=== PATIENT | male | born 1980 | race Caucasian/White ===

== ENCOUNTER → 2017-06-03 14:52 | Outpatient (CLI) | payer OTHER, SELFPAY ==
[2017-06-03 16:12] LABS: CRP, High Sensitivity Cardiac 7.98 mg/L; Potassium 3.4 mmol/L (3.5-5.1)
[2017-06-03 16:19] LABS: Osmolality, Urine 498 mOsm/KG
[2017-06-03 16:43] LABS: Osmolality, Serum 292 mOsm/KG (275-295)
== END ==
PROVIDERS: Family Provider Family Medicine; PCP Family Medicine; Visit Provider Internal Medicine Nephrology
DX: E87.6 Hypokalemia (principal); K85.90 Acute pancreatitis without necrosis or infection, unspecified
CPT/HCPCS: 36415; 83930; 83935; 84132; 84133; 86141

== ENCOUNTER → 2017-06-20 15:36 | Outpatient (CLI) | payer OTHER, SELFPAY ==
[2017-06-20 18:18] LABS: Anion Gap 10 (5-15); BUN 21 mg/dL (7-18); BUN/Creat Ratio 19.4 RATIO (10-20); Chloride 103 mmol/L (98-107); Creatinine, Serum 1.08 mg/dL (0.70-1.30); EST Glomerular Filtration Rate 81 mL/min (>60); Est Glom Filt Rate - Afr Amer 98 mL/min (>60); Glucose 109 mg/dL (74-106); Potassium 3.5 mmol/L (3.5-5.1); Sodium Level 139 mmol/L (136-145)
== END ==
PROVIDERS: Family Provider Family Medicine; PCP Family Medicine; Visit Provider Internal Medicine Nephrology
DX: E87.6 Hypokalemia (principal)
CPT/HCPCS: 36415; 80048

== ENCOUNTER → 2017-07-18 16:34 | Outpatient (CLI) | payer OTHER, SELFPAY ==
[2017-07-18 17:52] LABS: Anion Gap 9 (5-15); BUN 18 mg/dL (7-18); BUN/Creat Ratio 15.7 RATIO (10-20); Calcium,Total 9.1 mg/dL (8.5-10.1); Chloride 101 mmol/L (98-107); Creatinine, Serum 1.15 mg/dL (0.70-1.30); EST Glomerular Filtration Rate 75 mL/min (>60); Est Glom Filt Rate - Afr Amer 91 mL/min (>60); Glucose 102 mg/dL (74-106); Potassium 4.1 mmol/L (3.5-5.1); Sodium Level 138 mmol/L (136-145)
== END ==
PROVIDERS: Family Provider Family Medicine; PCP Family Medicine; Visit Provider Family Medicine
DX: I10 Essential (primary) hypertension (principal)
CPT/HCPCS: 36415; 80048

== ENCOUNTER → 2018-01-21 16:44 | Outpatient (CLI) | payer OTHER, SELFPAY ==
[2018-01-21 18:31] LABS: Anion Gap 10 (5-15); BUN 23 mg/dL (7-18); BUN/Creat Ratio 17.7 RATIO (10-20); CPK Total, Creatine Kinase 77 U/L (39-308); Calcium,Total 8.8 mg/dL (8.5-10.1); Chloride 104 mmol/L (98-107); EST Glomerular Filtration Rate 65 mL/min (>60); Est Glom Filt Rate - Afr Amer 79 mL/min (>60); Ferritin 346 ng/mL (26-388); Glucose 89 mg/dL (74-106); Magnesium 2.1 mg/dL (1.6-2.6); Sodium Level 141 mmol/L (136-145)
== END ==
PROVIDERS: Family Provider Family Medicine; PCP Family Medicine; Visit Provider Family Medicine
DX: E87.6 Hypokalemia (principal); R25.2 Cramp and spasm
CPT/HCPCS: 36415; 80048; 82550; 82728; 83735

== ENCOUNTER → 2018-07-28 16:25 | Outpatient (CLI) | payer OTHER, SELFPAY ==
[2018-07-28 18:36] LABS: Anion Gap 4 (5-15); BUN 23 mg/dL (7-18); BUN/Creat Ratio 18.9 RATIO (10-20); CPK Total, Creatine Kinase 65 U/L (39-308); Calcium,Total 9.2 mg/dL (8.5-10.1); Chloride 103 mmol/L (98-107); Creatinine, Serum 1.22 mg/dL (0.70-1.30); EST Glomerular Filtration Rate 70 mL/min (>60); Est Glom Filt Rate - Afr Amer 85 mL/min (>60); Ferritin 352 ng/mL (26-388); Glucose 92 mg/dL (74-106); Magnesium 2.2 mg/dL (1.6-2.6); Potassium 3.7 mmol/L (3.5-5.1); Sodium Level 137 mmol/L (136-145)
== END ==
PROVIDERS: Family Provider Family Medicine; PCP Family Medicine; Visit Provider Family Medicine
DX: E87.6 Hypokalemia (principal); R25.2 Cramp and spasm
CPT/HCPCS: 36415; 80048; 82550; 82728; 83735

== ENCOUNTER → 2019-02-03 15:52 | Outpatient (CLI) | payer OTHER, SELFPAY ==
[2019-02-03 17:36] LABS: Absolute Lymphocyte Count 2.94 X10^3/uL (0.83-4.51); Absolute Neutrophil Count 10.4 X10^3/uL (2.0-7.7); Basophil# 0.05 X10^3/uL; Basophil% 0.3 % (0-1); Eosinophil# 0.11 X10^3/uL; Eosinophils% 0.7 % (0-5); Hematocrit 45.4 % (40-54); Hemoglobin 14.9 g/dL (13.0-16.5); Lymphocyte # 2.94 X10^3/ul (4.0); Mean Corp Hgb Conc 32.8 g/dL (32-36); Mean Corpuscular Hgb 28.7 pg (27.0-32.0); Mean Corpuscular Volume 87.5 fL (80-94); Mean Platelet Vol. 11.2 fl (6.2-12.0); Monocyte# 1.08 X10^3/uL; Monocyte% 7.4 % (0-10); NRBC Flagged by Analyzer 0 % (0-5); Neutrophil # 10.42 X10^3/uL (2.7-7.7); Platelet Count 293 K/mm3 (150-450); RBC Distribution Width CV 13.1 % (11.6-14.6); RBC Distribution Width SD 41.9 fl (35.1-43.9); Red Blood Count 5.19 M/mm3 (4.6-6.2); White Blood Count 14.7 K/mm3 (4.4-11.0)
[2019-02-03 18:24] LABS: ALB/GLOB Ratio 0.9 RATIO (0.9-2.4); AST(SGOT) 18 U/L (15-37); Alanine Aminotransfer ALT/SGPT 41 U/L (16-61); Albumin, Serum 3.5 g/dL (3.2-5.0); Alkaline Phosphatase 99 U/L (45-117); Anion Gap 9 (5-15); BUN 29 mg/dL (7-18); BUN/Creat Ratio 20.9 RATIO (10-20); Calcium,Total 8.9 mg/dL (8.5-10.1); Chloride 104 mmol/L (98-107); Creatinine, Serum 1.39 mg/dL (0.70-1.30); EST Glomerular Filtration Rate 60 mL/min (>60); Est Glom Filt Rate - Afr Amer 73 mL/min (>60); Glucose 86 mg/dL (74-106); Potassium 3.9 mmol/L (3.5-5.1); Protein, Total 7.5 g/dL (6.4-8.2); Sodium Level 140 mmol/L (136-145)
== END ==
PROVIDERS: Family Provider Family Medicine; PCP Family Medicine; Referring Provider Family Medicine; Visit Provider Family Medicine
DX: I10 Essential (primary) hypertension (principal); K76.0 Fatty (change of) liver, not elsewhere classified
CPT/HCPCS: 36415; 80053; 85025

== ENCOUNTER 2019-06-01 15:08 | Emergency (ER) | payer OTHER, SELFPAY ==
[2019-06-01 15:09] VITALS: BP 119/105; PULSE 88; RESP 16; TEMP 36.6; O2SAT 98; BMI 37.9
[2019-06-01 15:14] VITALS: RESP 16
--- NOTE | 2019-06-01 16:09 | ED.VIS.GEN ---
History of Present Illness Chief Complaint: Lower Extremity Injury Narrative: Patient sustained a contusion to the right lower extremity just prior to arrival. He fell and hit the anterior elias. No head injury or loss of consciousness no other injury Past Medical History - Allergies and Home Meds Allergies/Adverse Reactions: Allergies No Known Allergies Allergy (Verified 06/01/19 15:14) Primary Care Physician: Markel Bell MD [Primary Care Provider] - Past Medical History: None Surgical History: no surgical history Smoking Status: Never smoker - Family History Maternal Family History: Reports: No pertinent history Paternal Family History: Reports: No pertinent history Review of Systems General: Reports: - - No head injury no loss of consciousness Musculoskeletal: Reports: Extremity Pain Skin: Reports: Wounds Neurological: Denies: Weakness, Parasthesia Hematologic: Denies: Easy bruising, Easy bleeding Physical Exam Vital Signs/Narrative: Vital Signs Temp Pulse Resp BP Pulse Ox 06/01/19 15:14 16 06/01/19 15:09 97.8 F 88 16 119/105 H 98 General: Well nourished Head: Normocephalic, Atraumatic Extremities: - - 2 punctate lacerations anterior elias region. They are not actively bleeding. There is no bony tenderness there is an anterior elias contusion. No ankle or knee pain. Skin: Normal color, - - Wound as above Neurological: Normal Strength, Normal Sensation Diagnostic/Tx/Re-eval - Medical Decision Making I will not x-ray to the leg, there is no bony tenderness and he is able to ambulate. There is no reason for laceration repair. I will discharge the patient in stable condition with reassurance. Tetanus is up-to-date. ED Disposition - Plan for ED Patient: Disposition: Home or Assisted Living Instructions: CONTUSION, Lower Extremity, LACERATION, Extrem (Suture, Staple or Tape) Referrals: Markel Bell MD [Primary Care Provider] - 3-5 Days
[2019-06-01 16:41] VITALS: BP 136/83; RESP 16
--- NOTE | 2019-06-01 16:41 | ED.RN ---
REVIEWED D/C INSTRUCTIONS, FOLLOW UP CARE, AND S/S THAT WOULD WARRANT A RETURN TO THE ED WITH PT. PT VERBALIZED AN UNDERSTANDING AND DENIES FURTHER QUESTIONS FOR THIS RN. PT SKIN P/W/D, RESP EVEN AND UNLABORED, PT A&O X 3, NO DISTRESS NOTED.
== END 2019-06-01 16:42 | disposition home or self-care (01) ==
PROVIDERS: Emergency Provider Emergency Medicine; PCP Family Medicine
DX: S80.11XA Contusion of right lower leg, initial encounter (principal); S81.811A Laceration without foreign body, right lower leg, initial encounter; W19.XXXA Unspecified fall, initial encounter; Y93.9 Activity, unspecified
CPT/HCPCS: 99285

== ENCOUNTER → 2020-03-29 14:41 | Outpatient (CLI) | payer OTHER, SELFPAY ==
[2020-03-29 17:31] LABS: Absolute Lymphocyte Count 2.71 X10^3/uL (0.83-4.51); Basophil# 0.03 X10^3/uL; Basophil% 0.3 % (0-1); Eosinophil# 0.19 X10^3/uL; Eosinophils% 1.8 % (0-5); Hematocrit 46.6 % (40-54); Hemoglobin 15.3 g/dL (13.0-16.5); Lymphocyte # 2.71 X10^3/ul (4.0); Lymphocyte % 25.4 % (19-41); Mean Corp Hgb Conc 32.8 g/dL (32-36); Mean Corpuscular Hgb 29.1 pg (27.0-32.0); Mean Corpuscular Volume 88.6 fL (80-94); Mean Platelet Vol. 11.1 fl (6.2-12.0); Monocyte# 0.72 X10^3/uL; Monocyte% 6.8 % (0-10); NRBC Flagged by Analyzer 0 % (0-5); Neutrophil # 6.96 X10^3/uL (2.7-7.7); Neutrophil % 65.2 % (47-70); Platelet Count 299 K/mm3 (150-450); RBC Distribution Width SD 42.1 fl (35.1-43.9); Red Blood Count 5.26 M/mm3 (4.6-6.2); White Blood Count 10.7 K/mm3 (4.4-11.0)
[2020-03-29 17:50] LABS: ALB/GLOB Ratio 0.8 RATIO (0.9-2.4); AST(SGOT) 23 U/L (15-37); Alanine Aminotransfer ALT/SGPT 48 U/L (16-61); Albumin, Serum 3.4 g/dL (3.2-5.0); Alkaline Phosphatase 106 U/L (45-117); Anion Gap 5 (5-15); BUN 22 mg/dL (7-18); BUN/Creat Ratio 16.3 RATIO (10-20); Calcium,Total 8.6 mg/dL (8.5-10.1); Chloride 106 mmol/L (98-107); Creatinine, Serum 1.35 mg/dL (0.70-1.30); EST Glomerular Filtration Rate 62 mL/min (>60); Est Glom Filt Rate - Afr Amer 75 mL/min (>60); Globulin 4.1 g/dL (2.2-4.2); Glucose 96 mg/dL (74-106); Magnesium 2.3 mg/dL (1.6-2.6); Potassium 3.9 mmol/L (3.5-5.1); Protein, Total 7.5 g/dL (6.4-8.2); Sodium Level 139 mmol/L (136-145)
== END ==
PROVIDERS: PCP Family Medicine; Referring Provider Family Medicine; Visit Provider Family Medicine
DX: I10 Essential (primary) hypertension (principal); E87.6 Hypokalemia
CPT/HCPCS: 36415; 80053; 83735; 85025

== ENCOUNTER 2021-04-07 22:45 | Emergency (ER) | payer OTHER, SELFPAY ==
[2021-04-07 22:46] VITALS: BP 108/80; PULSE 114; RESP 18; TEMP 36.7; O2SAT 92; BMI 35.2
--- NOTE | 2021-04-07 23:21 | CT_ITS ---
STUDY: CTA CHEST REASON FOR EXAM: Male, 40 years old. chest pain RADIATION DOSAGE (If Supplied By Facility): CTDIvol = ( 12.67 ) mGy, DLP = ( 481.57 ) mGycm TECHNIQUE: The examination was performed with the intravenous administration of IV 100mL Isovue-370. Post-processing of the angiographic images was performed, with multiplanar reformation and 3D reconstruction. Individualized dose optimization techniques were used for this CT. COMPARISON: 02/02/2017. FINDINGS: Normal enhancement of the main pulmonary artery and right and left pulmonary arteries. Normal enhancement of the bilateral peripheral pulmonary arteries. There is no demonstrated pulmonary embolism. Normal thoracic aorta and visualized great vessels. There is no demonstrated aortic dissection. Normal heart and pericardium. Normal mediastinum. Normal hilar regions. Normal visualized trachea and bronchi. The lungs are well expanded. Multiple bilateral groundglass opacities in a predominantly subpleural distribution consistent with multifocal bilateral pneumonitis. Normal pleura. Normal chest wall structures. Normal osseous structures. Normal visualized upper abdomen. CT/CTA Chest W/WO Contrast IMPRESSION: Negative CTA chest examination, without a demonstrated pulmonary embolism or arterial dissection. Bilateral multifocal pneumonitis as described. Electronically Signed: Jenifer Sellers MD at 1:51 EST , Service support ,
--- NOTE | 2021-04-07 23:21 | RAD_ITS ---
STUDY: X-RAY CHEST REASON FOR EXAM: Male, 40 years old. cough TECHNIQUE: Single AP portable view of the chest. COMPARISON: 02/02/2017. FINDINGS: There are a few patchy opacities within the right midlung field compatible with pneumonitis. The visualized left lung field is clear. There is no demonstrated pleural abnormality. Normal size heart. Normal mediastinum and betina. Normal visualized pulmonary arteries. Normal visualized aortic arch and descending thoracic aorta. Normal visualized thoracic spine. Normal visualized ribs, clavicles, and shoulders. There is no demonstrated abnormality of the visualized soft tissue structures of the upper abdomen. RAD/Chest 1 View (Portable) IMPRESSION: Right midlung pneumonitis. Electronically Signed: Jenifer Sellers MD at 0:17 EST , Service support ,
--- NOTE | 2021-04-07 23:36 | EDS_ITS ---
HPI History of Present Illness Chief Complaint: General Illness Informant: patient Onset/Context/Timing Onset: Days Context: Gradual Onset Timing: Continuous Current Severity: Mild Maximum Severity: Mild Narrative Narrative: 40-year-old male day 10 of his Covid. Start having symptoms on the . Tested positive on the April 05. Planes of fever and body aches. Cough. No shortness of breath. No hemoptysis. No abdominal pain. No vomiting or diarrhea. Patient feels dehydrated would like IV fluids. He is currently on no therapy. He is outside the window because he is currently day 10 for any monoclonal antibodies. Prior similar symptoms: Yes Recent Illness/Hospitalization: No PFSH PFSH Home Medications Ibuprofen [Motrin] 800 mg PO TID 02/04/17 [History Last Taken 02/04/17] acetaminophen 1,000 mg PO Q8H PRN PRN tab 02/06/17 [Rx Last Taken Unknown] magnesium oxide 400 mg PO BIDCM #10 tab 02/06/17 [Rx Last Taken Unknown] oxycodone 5 mg PO Q4H PRN PRN #18 tab 02/06/17 [Rx Last Taken Unknown] Allergy/AdvReac Type Severity Reaction Status Date / Time No Known Allergies Allergy Verified 04/07/21 22:51 Social History Smoking Status: Never smoker ROS ROS ED ROS Narrative Fever, body aches and cough. Review of Systems ROS Unobtainable: Denies due to encephalopathy Constitutional Constitutional ED: Reports chills and fever(s) Eyes Eyes: Denies change in vision ENT ENT ED: Denies ear pain Cardiovascular Cardiovascular: Denies chest pain or palpitations Respiratory/Chest Respiratory/Chest: Reports cough; Denies dyspnea Gastrointestinal Gastrointestinal: Denies abdominal pain, diarrhea, nausea or vomiting Genitourinary Genitourinary ED: Denies dysuria Musculoskeletal Musculoskeletal: Reports myalgias Integumentary Denies rash Neurologic Neurologic: Denies headache(s) Psychiatric Psychiatric: Denies depression Endocrine Endocrinology: Denies polyuria Allergic/Immunologic Allergic/Immunologic ED: Denies urticaria EXAM Physical Exam Narrative Exam Narrative: Right male no acute distress vital signs stable he is afebrile his pulse ox 92% on room air no signs hypoxia. He does not look septic or toxic. H EENT exam unremarkable. Mildly dry mucous memories. Neck nontender no lymphadenopathy. Lungs clear to auscultation bilaterally. Heart regular rhythm rate about 110 no murmur. Abdomen soft nontender normal bowel sounds no peritoneal signs. Moving all 4 extremities. Nontender no edema. Skin no rashes. Neurologically awake and alert no focal motor deficits. Const Vital Signs: 04/07/21 22:46 Temperature 98.0 F Temperature Source Temporal Pulse Rate 114 H Respiratory Rate 18 Blood Pressure 108/80 Blood Pressure Mean 89 Pulse Ox 92 Oxygen Delivery Method Room Air Positive well nourished and well developed; Negative for cachectic, contractures or unkempt General Appearance ED: well developed and NAD; Negative for unkempt, cachectic, contractures, cyanotic or diaphoretic Nutritional Appearance: Negative for cachectic HEENT Reports dry mucous membranes Negative for trauma or tenderness Mouth ED: Yes dry mucous membranes Mouth: dry mucous membranes Eyes PERRL and EOMs intact bilaterally Neck no lymphadenopathy, supple and no JVD General: Negative for tenderness Chest Wall inspection of chest normal and palpation of chest normal Resp normal respiratory effort and clear to auscultation bilaterally Effort and Inspection: Negative for pain with movement Auscultation: Negative for rales, rhonchi or wheezes Cardio regular rhythm, S1 normal heart sound, S2 normal heart sound and no murmurs; Negative for regular rate Rate: tachycardic GI normal to inspection, nondistended, normoactive bowel sounds, non-tender, non- distended and no masses Auscultation: normoactive bowel sounds Palpation: soft; Negative for tender, guarding or rebound tenderness present Back/Spine no CVA tenderness General Back: Negative for CVA tenderness Cervical Spine: Negative for cervical spine tenderness Thoracic Spine / Upper Back: Negative for thoracic spinal tenderness or paraspinal muscle tenderness Extremity normal to inspection General Extremety ED: Negative for edema or tenderness General Extremity: Negative for edema Neuro oriented x3 and CN's II-XII intact bilaterally Sensorium / Orientation: alert; Negative for orientation impaired, lethargic or stuporous Motor Exam: strength 5/5 throughout Psych mental status grossly normal Appearance: Negative for unkempt Mood & Affect: Negative for depressed Skin no rashes or lesions noted, no wounds and No skin turgor normal MDM MDM MDM Narrative Medical decision making narrative: 40-year-old male day 10 of Covid. We treated with IV fluids and a chest x-ray to be obtained. Will be given p.o. Decadron. Patient will be able to be treated at home. He is neither hypoxic nor does he look toxic. He does not meet any criteria for admission. He is outside the window for monoclonal antibodies. Radiography Chest X-Ray - ED: 1 View and Read by ED Physician Discharge Plan Triage Chief Complaint: General Illness ED Provider: Zain Irizarry Dx/Rx/DC Orders Prescriptions: No Action Ibuprofen [Motrin] 800 MG tablet 800 mg PO TID RF: 0 acetaminophen 500 MG tablet 1,000 mg PO Q8H PRN PRN (Reason: Pain) RF: 0 magnesium oxide 400 MG tablet 400 mg PO BIDCM Qty: 10 RF: 0 oxycodone 5 MG tablet 5 mg PO Q4H PRN PRN (Reason: Severe Pain (6-1010)) Qty: 18 RF: 0 Primary Care Provider: Markel Bell
--- NOTE | 2021-04-08 00:12 | EDS_ITS ---
HPI History of Present Illness Chief Complaint: General Illness Narrative Narrative: 40-year-old male on day 9 of Covid presenting for evaluation. He thinks he may be dehydrated. He states he had a fever of 101 earlier. He has having a cough still. He states that he is not necessarily dyspneic on exertion, however his states that earlier in the shower she was checking on him and his fingernails were blue and he appeared pale. She also states that he has been sweating to his close in bed and has to change his shirt 3 times a night. Sudden of this correlates with the fever. They have been alternating Tylenol and ibuprofen to keep his fever down. He has decreased p.o. intake but is able to eat and drink. He is making urine. Patient does admit to pain when he coughs. He does state that he was trying to get referred for the monoclonal antibodies but was lost to follow-up and now is day 9 added Friday and he is too late to get this. PFSH [facility] Medical History (Updated 04/08/21 @ 00:09 by Lara Chawla) Hypertension Home Medications dexamethasone [Decadron] 6 mg PO DAILY #10 tab 04/07/21 [Rx Last Taken Unknown] codeine-guaifenesin [Guaifenesin AC] 5 ml PO Q6H PRN #118 ml 04/08/21 [Rx Last Taken Unknown] spironolactone 50 mg PO DAILY 04/08/21 [History Last Taken Unknown] Allergy/AdvReac Type Severity Reaction Status Date / Time No Known Allergies Allergy Verified 04/07/21 22:51 Surgical History (Updated 04/08/21 @ 00:09 by Lara Chawla) Hx of cholecystectomy Social History Smoking Status: Never smoker ROS ROS ED Constitutional Constitutional ED: Reports chills, fever(s) and sweats Eyes Eyes: Denies blurry vision or diplopia ENT ENT ED: Reports sore throat; Denies rhinorrhea Cardiovascular Cardiovascular: Reports chest pain and palpitations Respiratory/Chest Respiratory/Chest: Reports cough, dyspnea and sputum Gastrointestinal Gastrointestinal: Reports nausea; Denies abdominal pain, diarrhea or vomiting Genitourinary Genitourinary ED: Denies dysuria or hematuria Musculoskeletal Musculoskeletal: Reports myalgias; Denies arthralgias or neck pain Integumentary Denies Abrasions or rash Neurologic Neurologic: Denies headache(s) or paresthesias Psychiatric Psychiatric: Denies anxiety or depression EXAM Physical Exam Const Vital Signs: 04/07/21 22:46 04/08/21 00:15 04/08/21 01:12 Temperature 98.0 F 100.8 F H Temperature Source Temporal Oral Pulse Rate 114 H 104 H Respiratory Rate 18 24 H Respiratory Effort Normal Non-Labored Respiratory Pattern Normal Blood Pressure 108/80 136/80 H Blood Pressure Mean 89 98 Pulse Ox 92 99 Oxygen Delivery Method Room Air Room Air Positive well nourished General Appearance ED: NAD; Negative for pallor HEENT Reports moist mucous membranes Negative for trauma Eyes PERRL and EOMs intact bilaterally Resp normal respiratory effort Auscultation: rales right base and left base Cardio regular rhythm Rate: tachycardic GI normal to inspection, nondistended, normoactive bowel sounds Extremity normal to inspection General Extremety ED: Negative for edema or tenderness General Extremity: Negative for edema Neuro oriented x3, CN's II-XII intact bilaterally and no sensory deficits noted Sensorium / Orientation: alert Motor Exam: strength 5/5 throughout Psych mental status grossly normal Skin General Skin Exam: Negative for jaundice or pallor MDM MDM MDM Narrative Medical decision making narrative: Patient presenting with COVID-19 symptoms he is concerned he is dehydrated. He does have a painful cough as well as fevers and chills. His initial pulse ox is 92%. His is concerned because he had been diaphoretic and stated that his fingers were turning blue while he was taking a shower. He states he he does not feel severely dyspneic when he is exerting himself. He maintained normal O2 sats while ambulating. CBC is within normal limits. LFTs are normal. Electrolytes are normal. Creatinine is 1.53 which is not much different than it was previously. EKG on my interpretation shows a sinus rhythm with ventricular rate of 95 bpm without sign of ischemic change. Chest x-ray on my interpretation shows right-sided pneumonitis. The radiologist does agree. CTA of the chest does show multifocal pneumonia bilaterally. There are no PEs or dissection. High-sensitivity troponin is 6. At this point I feel the patient is safe to be discharged home because he is not hypoxic. He is given return precautions. Unfortunately it is currently day 10 for him and he is no longer eligible for the monoclonal antibodies. Impression: 1. COVID-19 pneumonitis 2. Fatigue 3. Dyspnea Lab Data Labs: Laboratory Results - last 24 hr 04/07/21 04/07/21 04/07/21 00:00 00:00 00:00 WBC 7.8 RBC 5.06 Hgb 14.6 Hct 42.5 MCV 84.0 MCH 28.9 MCHC 34.4 RDW Std Deviation 41.8 RDW Coeff of Kathleen 13.6 Plt Count 262 MPV 10.3 Immature Gran % (Auto) 1.200 H Neut % (Auto) 72.7 H Lymph % (Auto) 16.6 L [place] % (Auto) 9.1 Eos % (Auto) 0.1 Baso % (Auto) 0.3 Absolute Neuts (auto) 5.7 Absolute Lymphs (auto) 1.30 Nucleated RBC % 0 Sodium 134 L Potassium 3.8 Chloride 98 Carbon Dioxide 27.0 Anion Gap 9 BUN 21 H Creatinine 1.53 H Estim Creat Clear Calc 68.33 Est GFR (MDRD) Af Amer 64 Est GFR (MDRD) Non-Af 53 L BUN/Creatinine Ratio 13.7 Glucose 108 H Lactic Acid 0.8 Calcium 9.0 Total Bilirubin 0.30 AST 36 ALT 46 Alkaline Phosphatase 70 Troponin I High Sens 6 Total Protein 7.5 Albumin 2.8 L Globulin 4.7 H Albumin/Globulin Ratio 0.6 L Radiography Diagnostic Testing: Clinical Impression(s) from Imaging Studies Chest CTA 04/07/21 23:21 IMPRESSION: Negative CTA chest examination, without a demonstrated pulmonary embolism or arterial dissection. Bilateral multifocal pneumonitis as described. Electronically Signed: Jenifer Sellers MD at 1:51 EST , Service support , Chest X-Ray 04/07/21 23:21 IMPRESSION: Right midlung pneumonitis. Electronically Signed: Jenifer Sellers MD at 0:17 EST , Service support , Discharge Plan Triage Chief Complaint: General Illness ED Provider: Zain Irizarry Dx/Rx/DC Orders Clinical Impression: COVID-19 Instructions: Coronavirus Disease 2019 (COVID-19): Caring for Yourself or Others, ED Renal Insufficiency Prescriptions: New dexamethasone [Decadron] 6 mg tablet 6 mg PO DAILY Qty: 10 RF: 0 codeine-guaifenesin [Guaifenesin AC] 10-100 mg/5 mL liquid 5 ml PO Q6H PRN (Reason: cough) Qty: 118 RF: 0 No Action spironolactone 50 mg tablet 50 mg PO DAILY RF: 0 Primary Care Provider: Markel Bell Referrals: Markel Bell MD [Primary Care Provider] - 10-14 Days if not better Activity Restrictions/Additional Instructions: Plenty of fluids and rest. Motrin Tylenol for body aches and fever. Daily Decadron to decrease inflammation. Follow-up with your doctor if not improving or return emergency department if you are feeling a lot worse. Disposition Disposition: Home, Self Care
[2021-04-08 00:16] LABS: Absolute Neutrophil Count 5.7 X10^3/uL (2.0-7.7); Basophil# 0.02 X10^3/uL; Basophil% 0.3 % (0-1); Eosinophil# 0.01 X10^3/uL; Eosinophils% 0.1 % (0-5); Hematocrit 42.5 % (40-54); Hemoglobin 14.6 g/dL (13.0-16.5); Lymphocyte % 16.6 % (19-41); Mean Corp Hgb Conc 34.4 g/dL (32-36); Mean Corpuscular Hgb 28.9 pg (27.0-32.0); Mean Platelet Vol. 10.3 fl (6.2-12.0); Monocyte# 0.71 X10^3/uL; Monocyte% 9.1 % (0-10); NRBC Flagged by Analyzer 0 % (0-5); Neutrophil # 5.69 X10^3/uL (2.7-7.7); Neutrophil % 72.7 % (47-70); Platelet Count 262 K/mm3 (150-450); RBC Distribution Width CV 13.6 % (11.6-14.6); RBC Distribution Width SD 41.8 fl (35.1-43.9); Red Blood Count 5.06 M/mm3 (4.6-6.2); White Blood Count 7.8 K/mm3 (4.4-11.0)
--- NOTE | 2021-04-08 00:16 | EKG12_ITS ---
Test Reason : DYSRHYTHMIA Blood Pressure : / mmHG Vent. Rate : 095 BPM Atrial Rate : 095 BPM P-R Int : 156 ms QRS Dur : 082 ms QT Int : 340 ms P-R-T Axes : 053 -24 043 degrees QTc Int : 427 ms Normal sinus rhythm Normal ECG Confirmed by NERIS MEDINA, JEANINE ([id number]), web content editor RAYO KING ([id number]) on 04/09/2021 10:19:24 AM Referred By: SANDRA Confirmed By:JEANINE CORDON MD
[2021-04-08 00:33] LABS: ALB/GLOB Ratio 0.6 RATIO (0.9-2.4); AST(SGOT) 36 U/L (15-37); Alanine Aminotransfer ALT/SGPT 46 U/L (16-61); Albumin, Serum 2.8 g/dL (3.2-5.0); Alkaline Phosphatase 70 U/L (45-117); Anion Gap 9 (5-15); BUN 21 mg/dL (7-18); BUN/Creat Ratio 13.7 RATIO (10-20); Chloride 98 mmol/L (98-107); Creatinine, Serum 1.53 mg/dL (0.70-1.30); EST Glomerular Filtration Rate 53 mL/min (>60); Est Glom Filt Rate - Afr Amer 64 mL/min (>60); Estimated Creatinine Clearance 68.33 ml/min; Globulin 4.7 g/dL (2.2-4.2); Glucose 108 mg/dL (74-106); Potassium 3.8 mmol/L (3.5-5.1); Protein, Total 7.5 g/dL (6.4-8.2); Sodium Level 134 mmol/L (136-145); Troponin-I HS 6 pg/mL (3.0-78.0)
[2021-04-08 00:38] LABS: Lactic Acid 0.8 mmol/L (0.4-1.9)
[2021-04-08 01:12] VITALS: BP 136/80; PULSE 104; RESP 24; TEMP 38.2; O2SAT 96; O2SAT 99
[2021-04-08] MEDS: Ketorolac 15 MG/ML Vial IV (01:19)
[2021-04-08 02:29] VITALS: BP 121/73; PULSE 99; RESP 18; O2SAT 93
== END 2021-04-08 02:37 | disposition home or self-care (01) ==
LOC: ED 23:59
PROVIDERS: Emergency Provider Student in an Organized Health Care Education/Training Program; PCP Family Medicine
DX: U07.1 COVID-19 (principal); J12.82 Pneumonia due to coronavirus disease 2019; R53.83 Other fatigue; R06.00 Dyspnea, unspecified; I10 Essential (primary) hypertension; Z79.899 Other long term (current) drug therapy
CPT/HCPCS: 71045; 71275; 80053; 83605; 84484; 85025; 87040; 93005; 96374; 99284; J7030; Q9967; A4216

== ENCOUNTER → 2021-04-11 14:33 | Outpatient (CLI) | payer OTHER, SELFPAY ==
[2021-04-11 17:39] LABS: Absolute Lymphocyte Count 1.64 X10^3/uL (0.83-4.51); Absolute Neutrophil Count 12.9 X10^3/uL (2.0-7.7); Basophil# 0.04 X10^3/uL; Basophil% 0.3 % (0-1); Hematocrit 43.3 % (40-54); Hemoglobin 14.5 g/dL (13.0-16.5); Lymphocyte # 1.64 X10^3/ul (0.83-4.51); Lymphocyte % 10.7 % (19-41); Mean Corp Hgb Conc 33.5 g/dL (32-36); Mean Corpuscular Hgb 28.8 pg (27.0-32.0); Mean Corpuscular Volume 86.1 fL (80-94); Mean Platelet Vol. 10.3 fl (6.2-12.0); Monocyte# 0.43 X10^3/uL; Monocyte% 2.8 % (0-10); NRBC Flagged by Analyzer 0 % (0-5); Neutrophil # 12.87 X10^3/uL (2.7-7.7); Neutrophil % 84.3 % (47-70); Platelet Count 449 K/mm3 (150-450); RBC Distribution Width CV 13.8 % (11.6-14.6); RBC Distribution Width SD 43.7 fl (35.1-43.9); Red Blood Count 5.03 M/mm3 (4.6-6.2); White Blood Count 15.3 K/mm3 (4.4-11.0)
[2021-04-11 18:05] LABS: ALB/GLOB Ratio 0.6 RATIO (0.9-2.4); AST(SGOT) 42 U/L (15-37); Alanine Aminotransfer ALT/SGPT 86 U/L (16-61); Albumin, Serum 2.8 g/dL (3.2-5.0); Alkaline Phosphatase 66 U/L (45-117); Anion Gap 9 (5-15); BUN 32 mg/dL (7-18); BUN/Creat Ratio 28.3 RATIO (10-20); Calcium,Total 9.1 mg/dL (8.5-10.1); Chloride 105 mmol/L (98-107); Cholesterol 144 mg/dL (200); Creatinine, Serum 1.13 mg/dL (0.70-1.30); EST Glomerular Filtration Rate 75 mL/min (>60); Est Glom Filt Rate - Afr Amer 91 mL/min (>60); Globulin 4.7 g/dL (2.2-4.2); Glucose 141 mg/dL (74-106); High Density Lipoprotein 28 mg/dL; Potassium 4.2 mmol/L (3.5-5.1); Protein, Total 7.5 g/dL (6.4-8.2); Sodium Level 139 mmol/L (136-145); Thyroid Stim Hormone (TSH) 0.76 uIU/mL (0.358-3.74); Triglycerides 204 mg/dL; Very Low Density Lipoprotein 41 mg/dL (5-40)
== END ==
PROVIDERS: PCP Family Medicine; Referring Provider Family Medicine; Visit Provider Family Medicine
DX: I10 Essential (primary) hypertension (principal)
CPT/HCPCS: 36415; 80053; 80061; 84443; 85025

== ENCOUNTER → 2023-05-02 | Outpatient (CLI) | payer OTHER, SELFPAY ==
[2023-05-02 16:00] LABS: Bacteria 0 SEEN /hpf (None Seen); Mucous, Urine 0 SEEN /hpf (<or=2+); Squamous Epithelial Cells - UA 0 SEEN /hpf (0-5)
[2023-05-02 17:30] LABS: Color, Urine Yellow (Yellow); Glucose, Dipstick Normal (Normal); Ketone-Dipstick Negative (Negative); Leukocyte Esterase-Dipstick Negative /ul (Negative); Nitrite-Dipstick Negative (Negative); Occult Blood-Urine 25 /ul (Negative); Protein-Dipstick 15 mg/dl (Negative); Specific Gravity, Urine 1.025 (1.002-1.030); Urine Bilirubin Dipstick Negative (Negative); Urine Clarity Clear (Clear); Urine Urobilinogen Normal (Normal)
[2023-05-02 17:32] LABS: Absolute Lymphocyte Count 3.05 X10^3/uL (0.83-4.51); Absolute Neutrophil Count 7.3 X10^3/uL (2.0-7.7); Basophil# 0.03 X10^3/uL; Basophil% 0.3 % (0-1); Eosinophil# 0.19 X10^3/uL; Eosinophils% 1.7 % (0-5); Hematocrit 46.7 % (40-54); Hemoglobin 15.4 g/dL (13.0-16.5); Lymphocyte # 3.05 X10^3/ul (0.83-4.51); Lymphocyte % 26.5 % (19-41); Mean Corpuscular Hgb 28.6 pg (27.0-32.0); Mean Corpuscular Volume 86.6 fL (80-94); Mean Platelet Vol. 11.1 fl (6.2-12.0); Monocyte# 0.83 X10^3/uL; Monocyte% 7.2 % (0-10); NRBC Flagged by Analyzer 0 % (0-5); Neutrophil # 7.28 X10^3/uL (2.7-7.7); Neutrophil % 63.2 % (47-70); Platelet Count 278 K/mm3 (150-450); RBC Distribution Width CV 13.6 % (11.6-14.6); RBC Distribution Width SD 42.8 fl (35.1-43.9); Red Blood Count 5.39 M/mm3 (4.6-6.2); White Blood Count 11.5 K/mm3 (4.4-11.0)
[2023-05-02 17:39] LABS: Red Blood Cells-Urine 0-5 SEEN /hpf (0-5); White Blood Cells 0-5 SEEN /hpf (0-5)
[2023-05-02 17:48] LABS: ALB/GLOB Ratio 0.9 RATIO (0.9-2.4); AST(SGOT) 18 U/L (15-37); Alanine Aminotransfer ALT/SGPT 39 U/L (16-61); Albumin, Serum 3.4 g/dL (3.2-5.0); Alkaline Phosphatase 111 U/L (45-117); Anion Gap 6 (5-15); BUN 21 mg/dL (7-18); BUN/Creat Ratio 16.8 RATIO (10-20); Calcium,Total 8.6 mg/dL (8.5-10.1); Chloride 106 mmol/L (98-107); Cholesterol 176 mg/dL (200); Creatinine, Serum 1.25 mg/dL (0.70-1.30); EST Glomerular Filtration Rate 66 mL/min (>60); Est Glom Filt Rate - Afr Amer 80 mL/min (>60); Globulin 3.9 g/dL (2.2-4.2); Glucose 98 mg/dL (74-106); High Density Lipoprotein 40 mg/dL; Magnesium 2.3 mg/dL (1.6-2.6); PSA,Total - Annual Screen 0.65 ng/mL (0.00-4.00); Potassium 3.9 mmol/L (3.5-5.1); Protein, Total 7.3 g/dL (6.4-8.2); Sodium Level 140 mmol/L (136-145); Triglycerides 256 mg/dL; Very Low Density Lipoprotein 51 mg/dL (5-40)
== END | disposition home or self-care (01) ==
LOC: MFPLAB 15:58
PROVIDERS: PCP Family Medicine; Visit Provider Family Medicine
DX: I10 Essential (primary) hypertension (principal); Z12.5 Encounter for screening for malignant neoplasm of prostate
CPT/HCPCS: 36415; 80053; 80061; 81001; 83735; 84153; 84443; 85025; G0103

== ENCOUNTER → 2024-03-26 | Outpatient (CLI) | payer OTHER, SELFPAY ==
[2024-03-26 15:40] LABS: Absolute Lymphocyte Count 2.76 X10^3/uL (0.83-4.51); Absolute Neutrophil Count 5.2 X10^3/uL (2.0-7.7); Basophil# 0.05 X10^3/uL; Basophil% 0.5 % (0-1); Eosinophil# 1.02 X10^3/uL; Eosinophils% 10.4 % (0-5); Hematocrit 36.3 % (40-54); Lymphocyte # 2.76 X10^3/ul (0.83-4.51); Lymphocyte % 28.2 % (19-41); Mean Corp Hgb Conc 30.3 g/dL (32-36); Mean Corpuscular Hgb 26.3 pg (27.0-32.0); Mean Corpuscular Volume 86.8 fL (80-94); Mean Platelet Vol. 10.4 fl (6.2-12.0); Monocyte# 0.73 X10^3/uL; Monocyte% 7.4 % (0-10); NRBC Flagged by Analyzer 0 % (0-5); Neutrophil # 5.19 X10^3/uL (2.7-7.7); Platelet Count 258 K/mm3 (150-450); RBC Distribution Width CV 15.3 % (11.6-14.6); RBC Distribution Width SD 49.1 fl (35.1-43.9); Red Blood Count 4.18 M/mm3 (4.6-6.2); White Blood Count 9.8 K/mm3 (4.4-11.0)
[2024-03-26 16:20] LABS: Vitamin B12 388 pg/mL (211-911)
[2024-03-26 16:24] LABS: ALB/GLOB Ratio 0.8 RATIO (0.9-2.4); AST(SGOT) 13 U/L (15-37); Alanine Aminotransfer ALT/SGPT 37 U/L (16-61); Albumin, Serum 2.9 g/dL (3.2-5.0); Alkaline Phosphatase 96 U/L (45-117); Anion Gap 8 (5-15); BUN 30 mg/dL (7-18); BUN/Creat Ratio 37.2 RATIO (10-20); Chloride 106 mmol/L (98-107); Creatinine, Serum 0.81 mg/dL (0.70-1.30); EST Glomerular Filtration Rate 110 mL/min (>60); Est Glom Filt Rate - Afr Amer 133 mL/min (>60); Ferritin 63 ng/mL (26-388); Globulin 3.6 g/dL (2.2-4.2); Glucose 87 mg/dL (74-106); Iron 59 ug/dL (65-175); Iron Binding Capacity,Total 425 ug/dL (250-450); Potassium 4.2 mmol/L (3.5-5.1); Protein, Total 6.5 g/dL (6.4-8.2); Sodium Level 138 mmol/L (136-145)
== END | disposition home or self-care (01) ==
PROVIDERS: PCP Family Medicine; Referring Provider Family Medicine; Visit Provider Family Medicine
DX: D64.9 Anemia, unspecified (principal)
CPT/HCPCS: 36415; 80053; 82607; 82728; 82746; 83540; 83550; 85025

== ENCOUNTER → 2024-04-08 | Outpatient (CLI) | payer OTHER, SELFPAY | END | disposition home or self-care (01) | LOC: LABSPEC 16:41 | PROVIDERS: PCP Family Medicine; Referring Provider Family Medicine; Visit Provider Family Medicine | DX: R39.9 Unspecified symptoms and signs involving the genitourinary system (principal) | CPT/HCPCS: 87086; 87088; 87186 ==

== ENCOUNTER → 2024-04-13 | Outpatient (CLI) | payer OTHER, SELFPAY | END | disposition home or self-care (01) | LOC: MFPLAB 13:51 | PROVIDERS: PCP Family Medicine; Visit Provider Family Medicine | DX: N39.0 Urinary tract infection, site not specified (principal) | CPT/HCPCS: 87086; 87088; 87186 ==

== ENCOUNTER → 2024-04-20 | Outpatient (CLI) | payer OTHER, MEDICAID, SELFPAY ==
--- NOTE | 2024-04-20 14:41 | US_ITS ---
STUDY: RENAL ULTRASOUND - COMPLETE REASON FOR EXAM: Male, 44 years old. nuerogenic bladder, spinal cord injury, paraplegia TECHNIQUE: Ultrasound evaluation of the kidneys was performed with real-time and static horton-scale imaging. COMPARISON: None. FINDINGS: RIGHT KIDNEY: Normal location of the right kidney, which is normal in size. The right kidney measures 13.9 cm. There is a normal cortex of the right kidney. The renal cortex measures 1.5 cm. 1.4 cm eccentric cyst upper pole right kidney. There are no right renal calculi. There is no right hydronephrosis. DISTAL RIGHT URETER: There is non-visualization of the distal right ureter. There is no demonstrated right ureterovesical junction calculus. There is a visualized right ureteral jet. LEFT KIDNEY: Normal location of the left kidney, which is normal in size. The left kidney measures 14.2 cm. There is a normal cortex of the left kidney. The renal cortex measures 1.6 cm. There is no left renal mass or cyst. There are no left renal calculi. There is no left hydronephrosis. DISTAL LEFT URETER: There is non-visualization of the distal left ureter. There is no demonstrated left ureterovesical junction calculus. There is a visualized left ureteral jet. BLADDER: The distended urinary bladder has a volume of 182 ml. The empty urinary bladder has a volume of ml. There is a normal wall thickness of the distended urinary bladder. There is no demonstrated mass within the urinary bladder. There are no demonstrated bladder calculi. US/Kidney and Bladder IMPRESSION: Normal ultrasound of the kidneys and urinary bladder. Electronically Signed: David Hernandez MD at 12:51 EST ,
== END | disposition home or self-care (01) ==
PROVIDERS: PCP Family Medicine; Referring Provider Family Medicine; Visit Provider Family Medicine
DX: N31.9 Neuromuscular dysfunction of bladder, unspecified (principal)
CPT/HCPCS: 76770

== ENCOUNTER → 2024-08-26 | Outpatient (CLI) | payer OTHER, MEDICAID, SELFPAY ==
[2024-08-26 15:54] LABS: Absolute Lymphocyte Count 2.67 X10^3/uL (0.83-4.51); Absolute Neutrophil Count 8.3 X10^3/uL (2.0-7.7); Basophil# 0.04 X10^3/uL; Basophil% 0.3 % (0-1); Eosinophil# 0.15 X10^3/uL; Eosinophils% 1.2 % (0-5); Hematocrit 40.2 % (40-54); Lymphocyte # 2.67 X10^3/ul (0.83-4.51); Lymphocyte % 22.1 % (19-41); Mean Corp Hgb Conc 32.3 g/dL (32-36); Mean Corpuscular Hgb 29.1 pg (27.0-32.0); Mean Corpuscular Volume 89.9 fL (80-94); Mean Platelet Vol. 10.4 fl (6.2-12.0); Monocyte# 0.88 X10^3/uL; Monocyte% 7.3 % (0-10); NRBC Flagged by Analyzer 0 % (0-5); Neutrophil # 8.26 X10^3/uL (2.7-7.7); Neutrophil % 68.5 % (47-70); Platelet Count 303 K/mm3 (150-450); RBC Distribution Width CV 15.3 % (11.6-14.6); RBC Distribution Width SD 50.4 fl (35.1-43.9); Red Blood Count 4.47 M/mm3 (4.6-6.2); White Blood Count 12.1 K/mm3 (4.4-11.0)
[2024-08-26 17:03] LABS: FOLATES,SERUM (FOLIC ACID) 5.46 ng/mL (4.60-34.80)
[2024-08-26 17:07] LABS: ALB/GLOB Ratio 1.3 RATIO (0.9-2.4); AST(SGOT) 23 U/L (<=37); Alanine Aminotransfer ALT/SGPT 61 U/L (<=46); Albumin, Serum 3.8 g/dL (3.5-5.0); Alkaline Phosphatase 90 U/L (40-129); Anion Gap 13 (5-15); BUN 35 mg/dL (4-19); Calcium,Total 9.4 mg/dL (7.6-11.0); Carbon Dioxide 22.3 mmol/L (21.0-32.0); Chloride 104 mmol/L (98-108); Creatinine, Serum 0.67 mg/dL (0.70-1.20); EST Glomerular Filtration Rate 117 (>60); Ferritin 151 ng/mL (37-417); Glucose 123 mg/dL (70-99); Iron 70 ug/dL (65-175); Iron Binding Capacity,Total 360 ug/dL (250-450); Iron Binding Capacity,Unsat 290 ug/dL (228-428); Protein, Total 6.8 g/dL (5.9-8.4); Sodium Level 139 mmol/L (133-145); Total Bilirubin 0.23 mg/dL (0.00-1.30); Vitamin B12 464 pg/mL (180-914)
[2024-08-26 17:23] LABS: Cholesterol 161 mg/dL (<=200); High Density Lipoprotein 35 mg/dL; Low Density Lipoprotein Calc. 89 mg/dL; Triglycerides 182 mg/dL; Very Low Density Lipoprotein 36 mg/dL (5-40); cholesterol:hdl ratio screen 4.57
== END | disposition home or self-care (01) ==
LOC: MFPLAB 11:02
PROVIDERS: PCP Family Medicine; Referring Provider Family Medicine; Visit Provider Family Medicine
DX: D64.9 Anemia, unspecified (principal); E87.6 Hypokalemia; I10 Essential (primary) hypertension; R73.09 Other abnormal glucose
CPT/HCPCS: 36415; 80053; 80061; 82607; 82728; 82746; 83036; 83540; 83550; 83735; 85025

== ENCOUNTER 2024-09-21 10:45 | Outpatient (RCR) | payer OTHER, MEDICAID, SELFPAY ==
[2024-09-14 10:35] VITALS: BP 126/76; PULSE 56; RESP 14; TEMP 36.1; BMI 35.2
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
--- NOTE | 2024-09-15 09:43 | WC ---
PHOTO 09/14/24 LEFT LATERAL FOOT
[2024-09-21 11:13] VITALS: BP 137/67; PULSE 53; RESP 16; TEMP 36.1; BMI 35.2
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
--- NOTE | 2024-09-21 13:18 | WC ---
L LAT FOOT 09/21/24
== END 2024-10-02 23:59 | disposition home or self-care (01) ==
LOC: WC 10:45
PROVIDERS: PCP Family Medicine; Referring Provider Family Medicine; Visit Provider Podiatrist
DX: G60.8 Other hereditary and idiopathic neuropathies (principal); G82.50 Quadriplegia, unspecified; L97.522 Non-pressure chronic ulcer of other part of left foot with fat layer exposed; I10 Essential (primary) hypertension; Z79.899 Other long term (current) drug therapy
CPT/HCPCS: 11042; 99214; G0463

== ENCOUNTER → 2024-10-07 | Outpatient (CLI) | payer MEDICAID, SELFPAY ==
--- NOTE | 2024-10-07 13:38 | RAD_ITS ---
PROCEDURE: FOOT MIN 3 VIEWS 10/07/2024 REASON FOR EXAM: FOOT WOUND LATERAL FOOT BY DISTAL 5TH MT, SINCE BEGINNING OF SEPTEMBER TECHNIQUE: Three views of the left foot were obtained. COMPARISON: None. FINDINGS: There is possible fracture of the base of the proximal phalanx of the 5th toe. There is lucency of the head of the 5th metatarsal medially without evidence of cortical disruption. The overlying soft tissue is obscured by bandage material. Subcutaneous emphysema is not excluded. There is mild arthritis of the 1st MTP joint. RAD/Foot min 3 Views IMPRESSION: 1. Apparent osteopenia of the head of the 5th metatarsal medially without evid ence of cortical disruption or periosteal reaction. 2. Possible fracture of the proximal phalanx of the 5th toe. 3. Possible subcutaneous emphysema overlying the 5th MTP joint. Reading Location: [id number]
== END | disposition home or self-care (01) ==
LOC: MTRAD 13:36
PROVIDERS: PCP Family Medicine; Referring Provider Podiatrist; Visit Provider Podiatrist
DX: L97.523 Non-pressure chronic ulcer of other part of left foot with necrosis of muscle (principal)
CPT/HCPCS: 73630; 87077; 87086; 87088; 87186

== ENCOUNTER 2024-10-26 08:30 | Outpatient (RCR) | payer MEDICAID, SELFPAY ==
[2024-10-03 00:23] VITALS: BP 137/67; PULSE 53; RESP 16; TEMP 36.1; BMI 35.2
[2024-10-05 08:16] VITALS: RESP 16; TEMP 36.4; BMI 35.2
--- NOTE | 2024-10-05 08:58 | PCM.WC.PN ---
History of Present Illness Date of Service: 10/05/24 History of Wound: Patient quadriplegic follows up for left plantar fifth MPJ ulceration which started as a pressure ulceration. Patient denies constitutional symptoms pain or any changes since previous visit. Objective Data Objective Data Vital Signs: Vital Signs Temp Pulse Resp BP O2 Del Method 97.6 F L 53 L 16 137/67 H Room Air 10/05/24 08:16 10/03/24 00:23 10/05/24 08:16 10/03/24 00:23 10/05/24 08:16 Oxygen Delivery Method Room Air Weight: 117.934 kg Body Mass Index (BMI) 35.2 Physical Exam Narrative Neurovascular status unchanged. Full-thickness wound noted to plantar lateral fifth MPJ. Wound extends down to the level of the abductor DJB minimi tendon with exposed fifth MPJ joint capsule. There is necrosis noted predebridement postdebridement wound demonstrated stable granular base without acute signs of infection. However the wound does probe down to capsule. Musculoskeletal no gross deformity contributing wound formation. Debridement Note Debridement Note Post-Debridement Measurements and Additional Note: Post-Debridement Measurements/Treatment - Nurse 1 - General Ulcer Assessment Start: 10/05/24 08:16 Freq: Status: Active Protocol: .LOWEXCelio Activity Type Activity Date Activity User E-sign Co-sign Detail Recorded Client Recorded Date Recorded By Document 10/05/24 08:16 KW [id number] 10/05/24 08:21 KW 10/05/24 08:16 - Today's Visit Information Type of service Follow-up Visit (Physician/[employer] ) Arrival Mode Wheelchair Accompanied by Patient Identification Verified (Name & Yes ) Height and Weight Body Mass Index (BMI) 35.2 BMI Classification Obese Vital Signs Temperature (97.8 F-99.1 F) 97.6 F L Temperature Source Temporal Pulse Location Monitor Respiratory Rate (12-18) 16 Respiratory rate source Monitor Oxygen Delivery Method Room Air Source Monitor Position Sitting History Since Last Visit- (Skip if this is Patient's initial visit) Have you changed medications since your No last visit? Any new allergies or adverse reactions No Had a fall/change in ADL's that may No increase risk of falls Signs or symptoms of abuse and/or No neglect since last visit Have you been in the hospital since your No last visit? Has dressing in place as prescribed Yes Has compression in place as prescribed Yes Has offloadiing in place as prescribed N/A Experienced any changes in pain level or No management Left Footwear Regular Shoe Right Footwear Regular Shoe Pain Scale: 0-10 Numeric Is Patient Pain Free? Yes - Nurse 1 - General Ulcer Measurement Start: 10/05/24 08:16 Freq: Status: Active Protocol: Activity Type Activity Date Activity User E-sign Co-sign Detail Recorded Client Recorded Date Recorded By Document 10/05/24 08:16 ANTOINE [id number] 10/05/24 08:21 10/05/24 08:16 Wound Center Nurse 1 #1 lt lat foot -Current Size (cm) - Length 1.3 -Current Size (cm) - Width 1.2 -Current Size (cm) - Depth 0.2 -Total Square Cm 1.56 -Date of Last Picture (Recall this 10/05/24 field) -Granulation Amt Large (67-100%) -Granulation Quality Red -Necrosis Amt Small (1-33%) -Necrotic Tissue Type Eschar -Texture (Livier-wound Skin Appearance) Assessed -Moisture (Livier-wound Skin Appearance) Assessed -Color (Livier-wound Skin Appearance) Assessed -Temperature (Livier-wound Skin No Abnormality Appearance) (Pt Warm) -Tenderness on Palpation (Livier-wound No Skin Appearance) -Ulcer Cleansing Soap and Water -Foul Odor after Cleansing No -Anesthetic Used 5% Lidocaine Gel - Nurse 2 - General Ulcer CM Notes Start: 10/05/24 08:16 Freq: Status: Active Protocol: Activity Type Activity Date Activity User E-sign Co-sign Detail Recorded Client Recorded Date Recorded By Document 10/05/24 08:46 DARIN [id number] 10/05/24 08:51 10/05/24 08:46 Wound Center Nurse 2 -Time 08:46 -Correct Patient Yes -Correct Side, Site, Position Yes -Correct Procedure Yes -Procedure Performed Yes -Type of Procedure Debridement -Clinical Debridement Muscle / Fascia -Tissue Removed Muscle,Fascia, Tendon -Post Debridement (cm) - Length 1.2 -Post Debridement (cm) - Width 1.0 -Post Debridement (cm) - Depth 0.4 -Total Square (Post) (cm) 1.20 -Area of Debridement (cm) - Length 1.2 -Area of Debridement (cm) - Width 1.0 -Total Square (Area) (cm) 1.20 -Tunneling No -Undermining/Tunneling No -Circular Undermining No -Wound/Ulcer Outcome Not Healed -Ulcer Cleansing Rinsed/ Irrigated with Saline -Foul Odor after Cleansing No -Bioengineered Tissue No -Bleeding Controlled with Pressure -Treatment Response Procedure Tolerated Well -Offloading Yes -Type of Offloading Surgical Shoe -Debridement - Muscle / Fascia, 1st Yes 20sq cm Pain Scale: 0-10 Numeric Is Patient Pain Free? Yes Assessment/Plan Assessment/Plan (1) Non-pressure chronic ulcer of other part of left foot with fat layer exposed: CODE(S): L97.522 - Non-pressure chronic ulcer of other part of left foot with fat layer exposed PLAN: Exam performed. Left fifth MPJ wound debrided excisionally down to including level of muscle/tendon using combination of 15 blade pickups bone rongeurs and 5 mm dermal curette. Portion of the abductor digit he minimi tendon was excised from the wound. Stable bleeding granular base noted postdebridement. No anesthesia due to neuropathy. Patient tolerated procedure well. Hemostasis obtained with light compression. Pre and postdebridement measurements document nursing notes. Wound was flushed and cultured. Prescription for doxycycline was provided. Ordered left foot x-ray. Dispensed surgical shoe. Discussed keeping pressure off left foot. Discussed adequate protein nutrition for wound healing. Patient follow-up in 1 week. (2) Other hereditary and idiopathic neuropathies: CODE(S): G60.8 - Other hereditary and idiopathic neuropathies (3) Cellulitis of left lower limb: CODE(S): L03.116 - Cellulitis of left lower limb
--- NOTE | 2024-10-06 09:15 | WC ---
PHOTO 10/05/24 LEFT LATERAL FOOT
[2024-10-12 11:07] VITALS: BP 113/63; PULSE 56; RESP 16; TEMP 36.2; BMI 35.2
--- NOTE | 2024-10-12 11:35 | PN.PCM_ITS ---
History of Present Illness Date of Service: 10/12/24 History of Wound: Patient quadriplegic follows up for left plantar fifth MPJ ulceration which started as a pressure ulceration. Patient denies constitutional symptoms pain or any changes since previous visit. Objective Data Objective Data Vital Signs: Vital Signs Temp Pulse Resp BP O2 Del Method 97.2 F L 56 L 16 113/63 Room Air 10/12/24 11:07 10/12/24 11:07 10/12/24 11:07 10/12/24 11:07 10/12/24 11:07 Oxygen Delivery Method Room Air Weight: 117.934 kg Body Mass Index (BMI) 35.2 Lab / Micro Data Micro: Microbiology 10/05/24 08:47 Ulcer, Decubitus - Left Foot Gram Stain - Final 10/05/24 08:47 Ulcer, Decubitus - Left Foot Wound Culture - Final Staphylococcus caprae 10/05/24 08:47 Ulcer, Decubitus - Left Foot Anaerobic Culture - Final No anaerobic bacteria isolated. Physical Exam Narrative Neurovascular status unchanged. Full-thickness wound noted to plantar lateral fifth MPJ. Wound extends down to the level of the abductor DJB minimi tendon with exposed fifth MPJ joint capsule. There is necrosis noted predebridement postdebridement wound demonstrated stable granular base without acute signs of infection. However the wound does probe down to capsule. Musculoskeletal no gross deformity contributing wound formation. Debridement Note Debridement Note Post-Debridement Measurements and Additional Note: Post-Debridement Measurements/Treatment - Nurse 1 - General Ulcer Assessment Start: 10/05/24 08:16 Freq: Status: Active Protocol: DANIS Activity Type Activity Date Activity User E-sign Co-sign Detail Recorded Client Recorded Date Recorded By Document 10/05/24 08:16 KW [id number] 10/05/24 08:21 KW Document 10/12/24 11:07 KW [id number] 10/12/24 11:22 KW 10/05/24 10/12/24 08:16 11:07 - Today's Visit Information Type of service Follow-up Visit Follow-up Visit (Physician/SVP OPERATIONS (Physician/SVP OPERATIONS ) ) Arrival Mode Wheelchair Wheelchair Accompanied by Patient Identification Verified (Name & Yes Yes ) Height and Weight Body Mass Index (BMI) 35.2 35.2 BMI Classification Obese Obese Vital Signs Temperature (97.8 F-99.1 F) 97.6 F L 97.2 F L Temperature Source Temporal Temporal Pulse Rate (60-100) 56 L Pulse Location Monitor Monitor Respiratory Rate (12-18) 16 16 Respiratory rate source Monitor Observation Oxygen Delivery Method Room Air Room Air Blood Pressure (90/60-120/80) 113/63 Blood Pressure Mean (mm Hg) 79 Source Monitor Monitor Position Sitting Semi-Fowlers Blood Pressure Location Left Arm History Since Last Visit- (Skip if this is Patient's initial visit) Have you changed medications since your No No last visit? Any new allergies or adverse reactions No No Had a fall/change in ADL's that may No No increase risk of falls Signs or symptoms of abuse and/or No No neglect since last visit Have you been in the hospital since your No No last visit? Has dressing in place as prescribed Yes Yes Has compression in place as prescribed Yes Yes Has offloadiing in place as prescribed N/A Yes Experienced any changes in pain level or No No management Left Footwear Regular Shoe Surgical Shoe with pressure relief insole Right Footwear Regular Shoe Regular Shoe Pain Scale: 0-10 Numeric Is Patient Pain Free? Yes Yes WC - Nurse 1 - General Ulcer Measurement Start: 10/05/24 08:16 Freq: Status: Active Protocol: Activity Type Activity Date Activity User E-sign Co-sign Detail Recorded Client Recorded Date Recorded By Document 10/05/24 08:16 KW [id number] 10/05/24 08:21 KW Document 10/12/24 11:07 KW [id number] 10/12/24 11:22 KW 10/05/24 10/12/24 08:16 11:07 Wound Center Nurse 1 #1 lt lat foot -Current Size (cm) - Length 1.3 1.2 -Current Size (cm) - Width 1.2 1 -Current Size (cm) - Depth 0.2 0.3 -Total Square Cm 1.56 1.2 -Date of Last Picture (Recall this 10/05/24 field) -Exudate Amt Medium -Exudate Type Serosanguineous -Wound Margin Distinct, Outline Attached -Granulation Amt Large (67-100%) Large (67-100%) -Granulation Quality Red Red -Necrosis Amt Small (1-33%) -Necrotic Tissue Type Eschar -Texture (Livier-wound Skin Appearance) Assessed Assessed -Moisture (Livier-wound Skin Appearance) Assessed Assessed,Dry/ Scaly -Color (Livier-wound Skin Appearance) Assessed Assessed -Temperature (Livier-wound Skin No Abnormality No Abnormality Appearance) (Pt Warm) (Pt Warm) -Tenderness on Palpation (Livier-wound No No Skin Appearance) -Ulcer Cleansing Soap and Water Soap and Water -Foul Odor after Cleansing No No -Anesthetic Used 5% Lidocaine Gel WC - Nurse 2 - General Ulcer CM Notes Start: 10/05/24 08:16 Freq: Status: Active Protocol: Activity Type Activity Date Activity User E-sign Co-sign Detail Recorded Client Recorded Date Recorded By Document 10/05/24 08:46 DARIN [id number] 10/05/24 08:51 JF 10/05/24 08:46 Wound Center Nurse 2 -Time 08:46 -Correct Patient Yes -Correct Side, Site, Position Yes -Correct Procedure Yes -Procedure Performed Yes -Type of Procedure Debridement -Clinical Debridement Muscle / Fascia -Tissue Removed Muscle,Fascia, Tendon -Post Debridement (cm) - Length 1.2 -Post Debridement (cm) - Width 1.0 -Post Debridement (cm) - Depth 0.4 -Total Square (Post) (cm) 1.20 -Area of Debridement (cm) - Length 1.2 -Area of Debridement (cm) - Width 1.0 -Total Square (Area) (cm) 1.20 -Tunneling No -Undermining/Tunneling No -Circular Undermining No -Wound/Ulcer Outcome Not Healed -Ulcer Cleansing Rinsed/ Irrigated with Saline -Foul Odor after Cleansing No -Bioengineered Tissue No -Bleeding Controlled with Pressure -Treatment Response Procedure Tolerated Well -Offloading Yes -Type of Offloading Surgical Shoe -Debridement - Muscle / Fascia, 1st Yes 20sq cm Pain Scale: 0-10 Numeric Is Patient Pain Free? Yes WC - Nurse 3 - General Ulcer D/C NN Start: 10/05/24 08:16 Freq: Status: Active Protocol: Activity Type Activity Date Activity User E-sign Co-sign Detail Recorded Client Recorded Date Recorded By Document 10/05/24 09:05 KW [id number] 10/05/24 09:06 KW 10/05/24 09:05 Wound Care Center Nurse 3 #1 lt lat foot -Primary Dressing Applied Promogran Claribel Matter, Silicone Border Foam 4x4 -Promogran Claribel Matter 1 -Silicone Border Foam 4x4 1 Pain Scale: 0-10 Numeric Is Patient Pain Free? Yes WC - Visit Discharge Discharge Condition Stable Ambulatory Status Wheelchair Transportation Private Auto Medication Reconcilliation completed & No provided to patient/care provider Clinical Summary of Care Provided Yes Notes: started darco shoe today Assessment/Plan Assessment/Plan (1) Non-pressure chronic ulcer of other part of left foot with fat layer exposed: CODE(S): L97.522 - Non-pressure chronic ulcer of other part of left foot with fat layer exposed PLAN: Exam performed. Radiographs reviewed. Reviewed radiologist findings concerning for fifth digit proximal phalanx fracture. Upon personal review I did not identify this to be a problem. Additionally, the wound defect correlates with the soft tissue emphysema that was read. 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 Wound cultures were reviewed and demonstrated normal skin wally. Patient will complete course of antibiotics. Left fifth MPJ wound debrided excisionally down to including level of muscle/tendon using combination of 15 blade pickups bone rongeurs and 5 mm dermal curette. Portion of the abductor digit he minimi tendon was excised from the wound. Stable bleeding granular base noted postdebridement. No anesthesia due to neuropathy. Patient tolerated procedure well. Hemostasis obtained with light compression. Pre and postdebridement measurements document nursing notes. Dispensed surgical shoe. Discussed keeping pressure off left foot. Discussed adequate protein nutrition for wound healing. Patient follow-up in 1 week. (2) Other hereditary and idiopathic neuropathies: CODE(S): G60.8 - Other hereditary and idiopathic neuropathies (3) Cellulitis of left lower limb: CODE(S): L03.116 - Cellulitis of left lower limb
[2024-10-19 11:28] VITALS: BP 143/90; PULSE 55; RESP 16; TEMP 36.3; BMI 35.2
--- NOTE | 2024-10-19 11:48 | PCM.WC.PN ---
History of Present Illness Date of Service: 10/19/24 History of Wound: Patient quadriplegic follows up for left plantar fifth MPJ ulceration which started as a pressure ulceration. Patient denies constitutional symptoms pain or any changes since previous visit. Objective Data Objective Data Vital Signs: Vital Signs Temp Pulse Resp BP O2 Del Method 97.4 F L 55 L 16 143/90 H Room Air 10/19/24 11:28 10/19/24 11:28 10/19/24 11:28 10/19/24 11:28 10/19/24 11:28 Oxygen Delivery Method Room Air Weight: 117.934 kg Body Mass Index (BMI) 35.2 Lab / Micro Data Micro: Microbiology 10/05/24 08:47 Ulcer, Decubitus - Left Foot Gram Stain - Final 10/05/24 08:47 Ulcer, Decubitus - Left Foot Wound Culture - Final Staphylococcus caprae 10/05/24 08:47 Ulcer, Decubitus - Left Foot Anaerobic Culture - Final No anaerobic bacteria isolated. Physical Exam Narrative Neurovascular status unchanged. Full-thickness wound noted to plantar lateral fifth MPJ. Wound extends down to the level of the abductor DJB minimi tendon with exposed fifth MPJ joint capsule. There is necrosis noted predebridement postdebridement wound demonstrated stable granular base without acute signs of infection. However the wound does probe down to capsule. Musculoskeletal no gross deformity contributing wound formation. Debridement Note Debridement Note Post-Debridement Measurements and Additional Note: Post-Debridement Measurements/Treatment RUDI - Nurse 1 - General Ulcer Assessment Start: 10/05/24 08:16 Freq: Status: Active Protocol: DANIS Activity Type Activity Date Activity User E-sign Co-sign Detail Recorded Client Recorded Date Recorded By Document 10/05/24 08:16 KW [id number] 10/05/24 08:21 KW Document 10/12/24 11:07 KW [id number] 10/12/24 11:22 KW Edit Result 10/12/24 11:07 KW (1) [id number] 10/12/24 11:46 Document 10/19/24 11:28 BMF [id number] 10/19/24 11:33 BM (1) *Infection - Person Taught => Patient,Family - Teaching Method => Discussion, => Demonstration - Response to teaching => Return => Demonstration, => Verbalize => Understanding 10/05/24 10/12/24 10/19/24 08:16 11:07 11:28 - Today's Visit Information Type of service Follow-up Visit Follow-up Visit Follow-up Visit (Physician/FULFILLMENT MAIL CLERK (Physician/FULFILLMENT MAIL CLERK (Physician/FULFILLMENT MAIL CLERK ) ) ) Arrival Mode Wheelchair Wheelchair Wheelchair Transfer Assistance None Accompanied by , Patient Identification Verified (Name & Yes Yes Yes ) Patient Requires Transmission-Based No Precautions Height and Weight Body Mass Index (BMI) 35.2 35.2 35.2 BMI Classification Obese Obese Obese Vital Signs Temperature (97.8 F-99.1 F) 97.6 F L 97.2 F L 97.4 F L Temperature Source Temporal Temporal Temporal Pulse Rate (60-100) 56 L 55 L Pulse Location Monitor Monitor Monitor Respiratory Rate (12-18) 16 16 16 Respiratory rate source Monitor Observation Observation Oxygen Delivery Method Room Air Room Air Room Air Blood Pressure (90/60-120/80) 113/63 143/90 H Blood Pressure Mean (mm Hg) 79 107 Source Monitor Monitor Monitor Position Sitting Semi-Fowlers Sitting Blood Pressure Location Left Arm Left Arm History Since Last Visit- (Skip if this is Patient's initial visit) Have you changed medications since your No No No last visit? Any new allergies or adverse reactions No No No Had a fall/change in ADL's that may No No No increase risk of falls Signs or symptoms of abuse and/or No No No neglect since last visit Have you been in the hospital since your No No No last visit? Has dressing in place as prescribed Yes Yes Yes Has compression in place as prescribed Yes Yes N/A Has offloadiing in place as prescribed N/A Yes Yes Experienced any changes in pain level or No No No management Left Footwear Regular Shoe Surgical Shoe Surgical Shoe with pressure with pressure relief insole relief insole Right Footwear Regular Shoe Regular Shoe Regular Shoe Pain Scale: 0-10 Numeric Is Patient Pain Free? Yes Yes Yes Teaching: Wound Center *Infection -Person Taught Patient,Family -Teaching Method Discussion, Demonstration -Response to teaching Return Demonstration, Verbalize Understanding - Nurse 1 - General Ulcer Measurement Start: 10/05/24 08:16 Freq: Status: Active Protocol: Activity Type Activity Date Activity User E-sign Co-sign Detail Recorded Client Recorded Date Recorded By Document 10/05/24 08:16 [id number] 10/05/24 08:21 Document 10/12/24 11:07 [id number] 10/12/24 11:22 Document 10/19/24 11:28 [facility] [id number] 10/19/24 11:33 [facility] 10/05/24 10/12/24 10/19/24 08:16 11:07 11:28 Wound Center Nurse 1 #1 lt lat foot -Combined with other wound No -Current Size (cm) - Length 1.3 1.2 1.1 -Current Size (cm) - Width 1.2 1 0.7 -Current Size (cm) - Depth 0.2 0.3 0.4 -Total Square Cm 1.56 1.2 0.77 -Date of Last Picture (Recall this 10/05/24 field) -Epithelialization Small 1-33% -Tunneling No -Undermining/Tunneling No -Circular Undermining No -Exudate Amt Medium Medium -Exudate Type Serosanguineous Serosanguineous -Wound Margin Distinct, Distinct, Outline Outline Attached Attached -Granulation Amt Large (67-100%) Large (67-100%) Large (67-100%) -Granulation Quality Red Red Red -Slough/Fibrin Yes -Necrosis Amt Small (1-33%) Small (1-33%) -Necrotic Tissue Type Eschar Adherent Slough -Texture (Livier-wound Skin Appearance) Assessed Assessed Assessed, Scarring -Moisture (Livier-wound Skin Appearance) Assessed Assessed,Dry/ Assessed Scaly -Color (Livier-wound Skin Appearance) Assessed Assessed Assessed -Temperature (Livier-wound Skin No Abnormality No Abnormality No Abnormality Appearance) (Pt Warm) (Pt Warm) (Pt Warm) -Tenderness on Palpation (Livier-wound No No No Skin Appearance) -Ulcer Cleansing Soap and Water Soap and Water Rinsed/ Irrigated with Saline -Foul Odor after Cleansing No No No -Anesthetic Used 5% Lidocaine 5% Lidocaine Gel Gel WC - Nurse 2 - General Ulcer CM Notes Start: 10/05/24 08:16 Freq: Status: Active Protocol: Activity Type Activity Date Activity User E-sign Co-sign Detail Recorded Client Recorded Date Recorded By Document 10/05/24 08:46 [id number] 10/05/24 08:51 Document 10/12/24 11:40 JF [id number] 10/12/24 11:44 JF Edit Result 10/12/24 11:40 JF (1) [id number] 10/12/24 11:46 JF Document 10/19/24 11:44 JF [id number] 10/19/24 11:45 JF (1) #1 lt lat foot - Clinical Debridement Subcutaneous => Muscle / Fascia - Tissue Removed Subcutaneous => Muscle - Debridement - Subq, 1st 20sq cm Yes => - Debridement - Muscle / Fascia, 1st => Yes 20sq cm 10/05/24 10/12/24 10/19/24 08:46 11:40 11:44 Wound Center Nurse 2 #1 lt lat foot -Time 08:46 11:43 11:44 -Correct Patient Yes Yes Yes -Correct Side, Site, Position Yes Yes Yes -Correct Procedure Yes Yes Yes -Procedure Performed Yes Yes Yes -Type of Procedure Debridement Debridement Debridement -Clinical Debridement Muscle / Fascia Muscle / Fascia Muscle / Fascia -Tissue Removed Muscle,Fascia, Muscle Muscle Tendon -Post Debridement (cm) - Length 1.2 0.9 1.1 -Post Debridement (cm) - Width 1.0 1.0 0.8 -Post Debridement (cm) - Depth 0.4 0.4 0.3 -Total Square (Post) (cm) 1.20 0.90 0.88 -Area of Debridement (cm) - Length 1.2 0.9 1.1 -Area of Debridement (cm) - Width 1.0 1.0 0.8 -Total Square (Area) (cm) 1.20 0.90 0.88 -Tunneling No No No -Undermining/Tunneling No No No -Circular Undermining No No No -Wound/Ulcer Outcome Not Healed Not Healed Not Healed -Ulcer Cleansing Rinsed/ Rinsed/ Rinsed/ Irrigated with Irrigated with Irrigated with Saline Saline Saline -Foul Odor after Cleansing No No No -Bioengineered Tissue No No No -Bleeding Controlled with Pressure Pressure Pressure -Treatment Response Procedure Procedure Procedure Tolerated Well Tolerated Well Tolerated Well -Offloading Yes Yes Yes -Type of Offloading Surgical Shoe Surgical Shoe Surgical Shoe -Debridement - Muscle / Fascia, 1st Yes Yes Yes 20sq cm Pain Scale: 0-10 Numeric Is Patient Pain Free? Yes Yes Yes WC - Nurse 3 - General Ulcer D/C NN Start: 10/05/24 08:16 Freq: Status: Active Protocol: Activity Type Activity Date Activity User E-sign Co-sign Detail Recorded Client Recorded Date Recorded By Document 10/05/24 09:05 ANTOINE [id number] 10/05/24 09:06 ANTOINE Document 10/12/24 11:44 DARIN [id number] 10/12/24 11:45 DARIN 10/05/24 10/12/24 09:05 11:44 Wound Care Center Nurse 3 #1 lt lat foot -Ulcer Cleansing Rinsed/ Irrigated with Saline -Foul Odor after Cleansing No -Primary Dressing Applied Promogran Promogran Claribel Matter, Claribel Matter, Silicone Border Silicone Border Foam 4x4 Foam 6x6 -Promogran Claribel Matter 1 1 -Silicone Border Foam 4x4 1 -Silicone Border Foam 6x6 1 Pain Scale: 0-10 Numeric Is Patient Pain Free? Yes Yes WC - Visit Discharge Discharge Condition Stable Stable Ambulatory Status Wheelchair Wheelchair Transportation Private Auto Private Auto Accompanied by Medication Reconcilliation completed & No Yes provided to patient/care provider Clinical Summary of Care Provided Yes Yes Notes: started darco shoe today Assessment/Plan Assessment/Plan (1) Non-pressure chronic ulcer of other part of left foot with fat layer exposed: CODE(S): L97.522 - Non-pressure chronic ulcer of other part of left foot with fat layer exposed PLAN: Exam performed. Radiographs reviewed. Reviewed radiologist findings concerning for fifth digit proximal phalanx fracture. Upon personal review I did not identify this to be a problem. Additionally, the wound defect correlates with the soft tissue emphysema that was read. 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 Wound cultures were reviewed and demonstrated normal skin wally. Patient will complete course of antibiotics. Left fifth MPJ wound debrided excisionally down to including level of muscle/tendon using combination of 15 blade pickups bone rongeurs and 5 mm dermal curette. Portion of the abductor digit he minimi tendon was excised from the wound. Stable bleeding granular base noted postdebridement. No anesthesia due to neuropathy. Patient tolerated procedure well. Hemostasis obtained with light compression. Pre and postdebridement measurements document nursing notes. Dispensed surgical shoe. Discussed keeping pressure off left foot. Discussed adequate protein nutrition for wound healing. Patient follow-up in 1 week. (2) Other hereditary and idiopathic neuropathies: CODE(S): G60.8 - Other hereditary and idiopathic neuropathies (3) Cellulitis of left lower limb: CODE(S): L03.116 - Cellulitis of left lower limb
[2024-10-26 08:37] VITALS: BP 131/78; PULSE 63; RESP 16; TEMP 36.5; BMI 35.2
--- NOTE | 2024-10-26 08:54 | PCM.WC.PN ---
History of Present Illness Date of Service: 10/26/24 History of Wound: Patient quadriplegic follows up for left plantar fifth MPJ ulceration which started as a pressure ulceration. Patient denies constitutional symptoms pain or any changes since previous visit. Objective Data Objective Data Vital Signs: Vital Signs Temp Pulse Resp BP O2 Del Method 97.7 F L 63 16 131/78 H Room Air 10/26/24 08:37 10/26/24 08:37 10/26/24 08:37 10/26/24 08:37 10/26/24 08:37 Oxygen Delivery Method Room Air Weight: 117.934 kg Body Mass Index (BMI) 35.2 Lab / Micro Data Micro: Microbiology 10/05/24 08:47 Ulcer, Decubitus - Left Foot Gram Stain - Final 10/05/24 08:47 Ulcer, Decubitus - Left Foot Wound Culture - Final Staphylococcus caprae 10/05/24 08:47 Ulcer, Decubitus - Left Foot Anaerobic Culture - Final No anaerobic bacteria isolated. Physical Exam Narrative Neurovascular status unchanged. Full-thickness wound noted to plantar lateral fifth MPJ. Wound extends down to the level of the abductor Digiti minimi tendon with exposed fifth MPJ joint capsule. There is necrosis noted predebridement postdebridement wound demonstrated stable granular base without acute signs of infection. However the wound does probe down to capsule. Musculoskeletal no gross deformity contributing wound formation. Debridement Note Debridement Note Post-Debridement Measurements and Additional Note: Post-Debridement Measurements/Treatment RUDI - Nurse 1 - General Ulcer Assessment Start: 10/05/24 08:16 Freq: Status: Active Protocol: DANIS Activity Type Activity Date Activity User E-sign Co-sign Detail Recorded Client Recorded Date Recorded By Document 10/05/24 08:16 KW [id number] 10/05/24 08:21 KW Document 10/12/24 11:07 KW [id number] 10/12/24 11:22 KW Edit Result 10/12/24 11:07 KW (1) [id number] 10/12/24 11:46 JF Document 10/19/24 11:28 BMF [id number] 10/19/24 11:33 BMF Document 10/26/24 08:37 BMF [id number] 10/26/24 08:41 BMF (1) *Infection - Person Taught => Patient,Family - Teaching Method => Discussion, => Demonstration - Response to teaching => Return => Demonstration, => Verbalize => Understanding 10/05/24 10/12/24 10/19/24 08:16 11:07 11:28 - Today's Visit Information Type of service Follow-up Visit Follow-up Visit Follow-up Visit (Physician/PROJECT MANAGEMENT ENGINEER (Physician/PROJECT MANAGEMENT ENGINEER (Physician/PROJECT MANAGEMENT ENGINEER ) ) ) Arrival Mode Wheelchair Wheelchair Wheelchair Transfer Assistance None Transfer Assist (Other) Accompanied by , Patient Identification Verified (Name & Yes Yes Yes ) Patient Requires Transmission-Based No Precautions Height and Weight Body Mass Index (BMI) 35.2 35.2 35.2 BMI Classification Obese Obese Obese Vital Signs Temperature (97.8 F-99.1 F) 97.6 F L 97.2 F L 97.4 F L Temperature Source Temporal Temporal Temporal Pulse Rate (60-100) 56 L 55 L Pulse Location Monitor Monitor Monitor Respiratory Rate (12-18) 16 16 16 Respiratory rate source Monitor Observation Observation Oxygen Delivery Method Room Air Room Air Room Air Blood Pressure (90/60-120/80) 113/63 143/90 H Blood Pressure Mean (mm Hg) 79 107 Source Monitor Monitor Monitor Position Sitting Semi-Fowlers Sitting Blood Pressure Location Left Arm Left Arm History Since Last Visit- (Skip if this is Patient's initial visit) Have you changed medications since your No No No last visit? Any new allergies or adverse reactions No No No Had a fall/change in ADL's that may No No No increase risk of falls Signs or symptoms of abuse and/or No No No neglect since last visit Have you been in the hospital since your No No No last visit? Has dressing in place as prescribed Yes Yes Yes Has compression in place as prescribed Yes Yes N/A Has offloadiing in place as prescribed N/A Yes Yes Experienced any changes in pain level or No No No management Left Footwear Regular Shoe Surgical Shoe Surgical Shoe with pressure with pressure relief insole relief insole Right Footwear Regular Shoe Regular Shoe Regular Shoe Pain Scale: 0-10 Numeric Is Patient Pain Free? Yes Yes Yes Teaching: Wound Center *Infection -Person Taught Patient,Family -Teaching Method Discussion, Demonstration -Response to teaching Return Demonstration, Verbalize Understanding 10/26/24 08:37 - Today's Visit Information Type of service Follow-up Visit (Physician/PROJECT MANAGEMENT ENGINEER ) Arrival Mode Wheelchair Transfer Assistance None Transfer Assist (Other) Accompanied by Patient Identification Verified (Name & Yes ) Patient Requires Transmission-Based No Precautions Height and Weight Body Mass Index (BMI) 35.2 BMI Classification Obese Vital Signs Temperature (97.8 F-99.1 F) 97.7 F L Temperature Source Temporal Pulse Rate (60-100) 63 Pulse Location Monitor Respiratory Rate (12-18) 16 Respiratory rate source Observation Oxygen Delivery Method Room Air Blood Pressure (90/60-120/80) 131/78 H Blood Pressure Mean (mm Hg) 95 Source Monitor Position Sitting Blood Pressure Location Right Arm History Since Last Visit- (Skip if this is Patient's initial visit) Have you changed medications since your No last visit? Any new allergies or adverse reactions No Had a fall/change in ADL's that may No increase risk of falls Signs or symptoms of abuse and/or No neglect since last visit Have you been in the hospital since your No last visit? Has dressing in place as prescribed Yes Has compression in place as prescribed N/A Has offloadiing in place as prescribed N/A Experienced any changes in pain level or No management Left Footwear Right Footwear Pain Scale: 0-10 Numeric Is Patient Pain Free? Yes Teaching: Wound Center *Infection -Person Taught -Teaching Method -Response to teaching - Nurse 1 - General Ulcer Measurement Start: 10/05/24 08:16 Freq: Status: Active Protocol: Activity Type Activity Date Activity User E-sign Co-sign Detail Recorded Client Recorded Date Recorded By Document 10/05/24 08:16 [id number] 10/05/24 08:21 KW Document 10/12/24 11:07 KW [id number] 10/12/24 11:22 KW Document 10/19/24 11:28 [facility] [id number] 10/19/24 11:33 [facility] Document 10/26/24 08:37 [facility] [id number] 10/26/24 08:41 [facility] 10/05/24 10/12/24 10/19/24 08:16 11:07 11:28 Wound Center Nurse 1 #1 lt lat foot -Combined with other wound No -Current Size (cm) - Length 1.3 1.2 1.1 -Current Size (cm) - Width 1.2 1 0.7 -Current Size (cm) - Depth 0.2 0.3 0.4 -Total Square Cm 1.56 1.2 0.77 -Date of Last Picture (Recall this 10/05/24 field) -Photo Taken -Epithelialization Small 1-33% -Tunneling No -Undermining/Tunneling No -Circular Undermining No -Exudate Amt Medium Medium -Exudate Type Serosanguineous Serosanguineous -Wound Margin Distinct, Distinct, Outline Outline Attached Attached -Granulation Amt Large (67-100%) Large (67-100%) Large (67-100%) -Granulation Quality Red Red Red -Slough/Fibrin Yes -Necrosis Amt Small (1-33%) Small (1-33%) -Necrotic Tissue Type Eschar Adherent Slough -Texture (Livier-wound Skin Appearance) Assessed Assessed Assessed, Scarring -Moisture (Livier-wound Skin Appearance) Assessed Assessed,Dry/ Assessed Scaly -Color (Livier-wound Skin Appearance) Assessed Assessed Assessed -Temperature (Livier-wound Skin No Abnormality No Abnormality No Abnormality Appearance) (Pt Warm) (Pt Warm) (Pt Warm) -Tenderness on Palpation (Livier-wound No No No Skin Appearance) -Ulcer Cleansing Soap and Water Soap and Water Rinsed/ Irrigated with Saline -Foul Odor after Cleansing No No No -Anesthetic Used 5% Lidocaine 5% Lidocaine Gel Gel 10/26/24 08:37 Wound Center Nurse 1 #1 lt lat foot -Combined with other wound No -Current Size (cm) - Length 1 -Current Size (cm) - Width 0.8 -Current Size (cm) - Depth 0.4 -Total Square Cm 0.8 -Date of Last Picture (Recall this 10/26/24 field) -Photo Taken Yes -Epithelialization Small 1-33% -Tunneling No -Undermining/Tunneling No -Circular Undermining No -Exudate Amt Medium -Exudate Type Serosanguineous -Wound Margin Distinct, Outline Attached -Granulation Amt Large (67-100%) -Granulation Quality Red -Slough/Fibrin Yes -Necrosis Amt Small (1-33%) -Necrotic Tissue Type Adherent Slough -Texture (Livier-wound Skin Appearance) Assessed, Scarring -Moisture (Livier-wound Skin Appearance) Assessed -Color (Livier-wound Skin Appearance) Assessed -Temperature (Livier-wound Skin No Abnormality Appearance) (Pt Warm) -Tenderness on Palpation (Livier-wound No Skin Appearance) -Ulcer Cleansing Soap and Water -Foul Odor after Cleansing No -Anesthetic Used 5% Lidocaine Gel WC - Nurse 2 - General Ulcer CM Notes Start: 10/05/24 08:16 Freq: Status: Active Protocol: Activity Type Activity Date Activity User E-sign Co-sign Detail Recorded Client Recorded Date Recorded By Document 10/05/24 08:46 JF [id number] 10/05/24 08:51 JF Document 10/12/24 11:40 JF [id number] 10/12/24 11:44 JF Edit Result 10/12/24 11:40 JF (1) [id number] 10/12/24 11:46 JF Document 10/19/24 11:44 JF [id number] 10/19/24 11:45 JF Document 10/26/24 08:49 DS [id number] 10/26/24 08:50 DS (1) #1 lt lat foot - Clinical Debridement Subcutaneous => Muscle / Fascia - Tissue Removed Subcutaneous => Muscle - Debridement - Subq, 1st 20sq cm Yes => - Debridement - Muscle / Fascia, 1st => Yes 20sq cm 10/05/24 10/12/24 10/19/24 08:46 11:40 11:44 Wound Center Nurse 2 #1 lt lat foot -Time 08:46 11:43 11:44 -Correct Patient Yes Yes Yes -Correct Side, Site, Position Yes Yes Yes -Correct Procedure Yes Yes Yes -Procedure Performed Yes Yes Yes -Type of Procedure Debridement Debridement Debridement -Clinical Debridement Muscle / Fascia Muscle / Fascia Muscle / Fascia -Tissue Removed Muscle,Fascia, Muscle Muscle Tendon -Post Debridement (cm) - Length 1.2 0.9 1.1 -Post Debridement (cm) - Width 1.0 1.0 0.8 -Post Debridement (cm) - Depth 0.4 0.4 0.3 -Total Square (Post) (cm) 1.20 0.90 0.88 -Area of Debridement (cm) - Length 1.2 0.9 1.1 -Area of Debridement (cm) - Width 1.0 1.0 0.8 -Total Square (Area) (cm) 1.20 0.90 0.88 -Tunneling No No No -Undermining/Tunneling No No No -Circular Undermining No No No -Wound/Ulcer Outcome Not Healed Not Healed Not Healed -Ulcer Cleansing Rinsed/ Rinsed/ Rinsed/ Irrigated with Irrigated with Irrigated with Saline Saline Saline -Foul Odor after Cleansing No No No -Bioengineered Tissue No No No -Bleeding Controlled with Pressure Pressure Pressure -Treatment Response Procedure Procedure Procedure Tolerated Well Tolerated Well Tolerated Well -Offloading Yes Yes Yes -Type of Offloading Surgical Shoe Surgical Shoe Surgical Shoe -Debridement - Muscle / Fascia, 1st Yes Yes Yes 20sq cm Pain Scale: 0-10 Numeric Is Patient Pain Free? Yes Yes Yes 10/26/24 08:49 Wound Center Nurse 2 #1 lt lat foot -Time 08:49 -Correct Patient Yes -Correct Side, Site, Position Yes -Correct Procedure Yes -Procedure Performed Yes -Type of Procedure Debridement -Clinical Debridement Muscle / Fascia -Tissue Removed Muscle -Post Debridement (cm) - Length 1.2 -Post Debridement (cm) - Width 0.9 -Post Debridement (cm) - Depth 0.3 -Total Square (Post) (cm) 1.08 -Area of Debridement (cm) - Length 1.2 -Area of Debridement (cm) - Width 0.9 -Total Square (Area) (cm) 1.08 -Tunneling No -Undermining/Tunneling No -Circular Undermining No -Wound/Ulcer Outcome Not Healed -Ulcer Cleansing Rinsed/ Irrigated with Saline -Foul Odor after Cleansing No -Bioengineered Tissue No -Bleeding Controlled with Pressure -Treatment Response Procedure Tolerated Well -Offloading -Type of Offloading -Debridement - Muscle / Fascia, 1st Yes 20sq cm Pain Scale: 0-10 Numeric Is Patient Pain Free? Yes - Nurse 3 - General Ulcer D/C NN Start: 10/05/24 08:16 Freq: Status: Active Protocol: Activity Type Activity Date Activity User E-sign Co-sign Detail Recorded Client Recorded Date Recorded By Document 10/05/24 09:05 KW [id number] 10/05/24 09:06 KW Document 10/12/24 11:44 JF [id number] 10/12/24 11:45 JF Document 10/19/24 11:53 DS [id number] 10/19/24 11:58 DS 10/05/24 10/12/24 10/19/24 09:05 11:44 11:53 Wound Care Center Nurse 3 #1 lt lat foot -Ulcer Cleansing Rinsed/ Irrigated with Saline -Foul Odor after Cleansing No -Primary Dressing Applied Promogran Promogran Promogran Claribel Matter, Claribel Matter, Claribel Matter, Silicone Border Silicone Border Silicone Border Foam 4x4 Foam 6x6 Foam 4x4 -Promogran Claribel Matter 1 1 1 -Silicone Border Foam 4x4 1 1 -Silicone Border Foam 6x6 1 Pain Scale: 0-10 Numeric Is Patient Pain Free? Yes Yes Yes WC - Visit Discharge Discharge Condition Stable Stable Stable Ambulatory Status Wheelchair Wheelchair Wheelchair Transportation Private Auto Private Auto Accompanied by Medication Reconcilliation completed & No Yes provided to patient/care provider Clinical Summary of Care Provided Yes Yes Notes: started darco shoe today Assessment/Plan Assessment/Plan (1) Non-pressure chronic ulcer of other part of left foot with fat layer exposed: CODE(S): L97.522 - Non-pressure chronic ulcer of other part of left foot with fat layer exposed PLAN: Exam performed. Radiographs reviewed. Reviewed radiologist findings concerning for fifth digit proximal phalanx fracture. Upon personal review I did not identify this to be a problem. Additionally, the wound defect correlates with the soft tissue emphysema that was read. 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 Wound cultures were reviewed and demonstrated normal skin wally. Patient will complete course of antibiotics. Left fifth MPJ wound debrided excisionally down to including level of muscle/tendon using combination of 15 blade pickups bone rongeurs and 5 mm dermal curette. Portion of the abductor digit he minimi tendon was excised from the wound. Stable bleeding granular base noted postdebridement. No anesthesia due to neuropathy. Patient tolerated procedure well. Hemostasis obtained with light compression. Pre and postdebridement measurements document nursing notes. using open toed shoes to prevent pressure, using compression Discussed keeping pressure off left foot. Discussed adequate protein nutrition for wound healing - recommended marnie supplementation patient awaiting epifix graft approval. Patient follow-up in 1 week. (2) Other hereditary and idiopathic neuropathies: CODE(S): G60.8 - Other hereditary and idiopathic neuropathies (3) Cellulitis of left lower limb: CODE(S): L03.116 - Cellulitis of left lower limb
--- NOTE | 2024-10-26 12:13 | WC ---
Transfer of care from Dr. Finney to Dr. Shaikh effective end of day 10/26/24
--- NOTE | 2024-10-26 13:51 | WC ---
PHOTO 10/26/24 LEFT LATERAL FOOT
== END 2024-11-01 23:59 | disposition home or self-care (01) ==
LOC: WC 08:30
PROVIDERS: PCP Family Medicine; Referring Provider Family Medicine; Visit Provider Podiatrist Foot & Ankle Surgery
DX: G82.50 Quadriplegia, unspecified (principal); L97.522 Non-pressure chronic ulcer of other part of left foot with fat layer exposed; Z99.3 Dependence on wheelchair; G60.8 Other hereditary and idiopathic neuropathies
CPT/HCPCS: 11042; 11043; 87070; 87075; 87077; 87205

== ENCOUNTER → 2024-11-25 | Outpatient (CLI) | payer MEDICAID, SELFPAY ==
[2024-11-25 17:38] LABS: Hematocrit 38.0 % (40-54); Hemoglobin 12.6 g/dL (13.0-16.5); Immature Granulocytes Count 0.060 X10^3/uL (0.0-0.0); Mean Corp Hgb Conc 33.2 g/dL (32-36); Mean Corpuscular Volume 89.4 fL (80-94); Mean Platelet Vol. 10.3 fl (6.2-12.0); NRBC Flagged by Analyzer 0 % (0-5); Platelet Count 280 K/mm3 (150-450); RBC Distribution Width CV 14.6 % (11.6-14.6); RBC Distribution Width SD 47.3 fl (35.1-43.9); Red Blood Count 4.25 M/mm3 (4.6-6.2); White Blood Count 8.5 K/mm3 (4.4-11.0)
[2024-11-25 18:30] LABS: AST(SGOT) 20 U/L (<=37); Alanine Aminotransfer ALT/SGPT 21 U/L (<=46); Albumin, Serum 3.5 g/dL (3.5-5.0); Alkaline Phosphatase 96 U/L (40-129); Anion Gap 11 (5-15); BUN 30 mg/dL (4-19); BUN/Creat Ratio 44.3 RATIO (10-20); Calcium,Total 9.0 mg/dL (7.6-11.0); Carbon Dioxide 25.1 mmol/L (21.0-32.0); Chloride 105 mmol/L (98-108); Globulin 2.7 g/dL (2.2-4.2); Glucose 124 mg/dL (70-99); Magnesium 2.0 mg/dL (1.5-2.2); Potassium 3.9 mmol/L (3.3-5.1)
[2024-11-25 19:13] LABS: Cholesterol 182 mg/dL (<=200); Low Density Lipoprotein Calc. 99 mg/dL; Triglycerides 250 mg/dL; Very Low Density Lipoprotein 50 mg/dL (5-40); cholesterol:hdl ratio screen 5.57
== END | disposition home or self-care (01) ==
LOC: MFPLAB 14:58
PROVIDERS: PCP Family Medicine; Referring Provider Family Medicine; Visit Provider Family Medicine
DX: I10 Essential (primary) hypertension (principal)
CPT/HCPCS: 36415; 80053; 80061; 83735; 84443; 85025

== ENCOUNTER 2024-12-01 13:15 | Outpatient (RCR) | payer MEDICAID, SELFPAY ==
[2024-11-03 13:22] VITALS: BP 153/91; PULSE 16; RESP 50; TEMP 36.1
--- NOTE | 2024-11-03 15:38 | WC ---
PHOTO 11/03/24 [facility]
--- NOTE | 2024-11-05 18:26 | PCM.WC.HP ---
History of Present Illness Date of Service: 11/05/24 Chief Complaint: Full-thickness wound, left foot History of Wound: Patient quadriplegic follows up for left plantar fifth MPJ ulceration which started as a pressure ulceration. Patient denies constitutional symptoms pain or any changes since previous visit. Progress of Wound: Stable full-thickness wound to the lateral side of the left foot. [facility] Medical History Hypertension Home Medications ?Medication ?Instructions ?Recorded ?Last Taken ?Type baclofen 5 mg tablet mg PO 09/14/24 Unknown History bupropion HCl 100 mg tablet 100 mg PO Q12.TCU 09/14/24 Unknown History cholecalciferol (vitamin D3) 125 5,000 unit PO DAILY 09/14/24 Unknown History mcg (5,000 unit) tablet diclofenac sodium 1 % topical gel 4 ea topical Q6H PRN PRN muscle 09/14/24 Unknown History pain docusate sodium 283 mg-benzocaine ml PA 09/14/24 Unknown History 20 mg/5 mL enema (Enemeez Plus) ergocalciferol (vitamin D2) 1,250 2,500 mcg PO DAILY 09/14/24 Unknown History mcg (50,000 unit) capsule (Vitamin D2) gabapentin 400 mg capsule 400 mg PO TID 09/14/24 Unknown History melatonin 3 mg capsule 3 mg PO QHS 09/14/24 Unknown History midodrine 5 mg tablet mg PO 09/14/24 Unknown History oxycodone 5 mg tablet 5 mg PO Q8H PRN PRN severe pain 09/14/24 Unknown History sennosides 8.6 mg tablet (senna) 8.6 mg PO BID PRN PRN constipation 09/14/24 Unknown History sodium phosphates 19 gram-7 1 PA UD 09/14/24 Unknown History gram/118 mL enema (Fleet Enema) tolterodine 1 mg tablet 1 mg PO BID 09/14/24 Unknown History vibegron 75 mg tablet (Gemtesa) 75 mg PO DAILY 09/14/24 Unknown History doxycycline hyclate 100 mg tablet 100 mg PO BID #20 tabs 10/05/24 Unknown Rx Allergy/AdvReac Type Severity Reaction Status Date / Time No Known Allergies Allergy Verified 09/14/24 10:55 Surgical History Hx of cholecystectomy Social History Smoking Status: Never smoker Physical Exam Narrative Vascular: DP and PT pulses are palpable to left lower extremity. CFT is brisk. No evidence of erythema to the left foot. Skin temperature is warm to cool from proximal ankle to distal digits to the left extremity. Neurological: Patient is quadriplegic and does not have light touch and does not have protective sensation. Dermatological: Evidence of full-thickness wound to the lateral aspect of the fifth metatarsal head measuring 0.9 x 1.3 x 0.8 cm. Wound base is granular nature with positive probe to bone. No periwound erythema is noted. Excisional debridement down to and including subcutaneous tissue, fascia muscle and bone with a sterile rongeur done without incident. Predebridement measurement was 0.7 x 1.2 x 0.5 cm. Postdebridement measurement is 0.9 x 1.3 x 0.8 cm. Musculoskeletal: Muscle strength 0 out of 5 to left lower extremity. No pain to palpation of the full-thickness wound. No pain with calf pressure. Debridement Note Debridement Note Debridement Free Text: Excisional debridement down to and including subcutaneous tissue, fascia muscle and bone with a sterile rongeur done without incident. Predebridement measurement was 0.7 x 1.2 x 0.5 cm. Postdebridement measurement is 0.9 x 1.3 x 0.8 cm. 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 ) Arrival Mode Wheelchair Transfer Assistance None Patient Identification Verified (Name & Yes ) Patient Requires Transmission-Based No Precautions Vital Signs Temperature (97.8 F-99.1 F) 97 F L Temperature Source Temporal Pulse Rate (60-100) 16 L Pulse Location Monitor Respiratory Rate (12-18) 50 H Respiratory rate source Observation Oxygen Delivery Method Room Air Blood Pressure (90/60-120/80) 153/91 H Blood Pressure Mean 111 Source Monitor Position Sitting Blood Pressure Location Left Arm History Since Last Visit- (Skip if this is Patient's initial visit) Have you changed medications since your No last visit? Any new allergies or adverse reactions No Had a fall/change in ADL's that may No increase risk of falls Signs or symptoms of abuse and/or No neglect since last visit Have you been in the hospital since your No last visit? Has dressing in place as prescribed Yes Has compression in place as prescribed N/A Has offloadiing in place as prescribed Yes Experienced any changes in pain level or No management Left Footwear Surgical Shoe with pressure relief insole Right Footwear Regular Shoe Pain Scale: 0-10 Numeric Is Patient Pain Free? Yes WC - Nurse 1 - General Ulcer Measurement Start: 11/03/24 13:22 Freq: Status: Active Protocol: Activity Type Activity Date Activity User E-sign Co-sign Detail Recorded Client Recorded Date Recorded By Document 11/03/24 13:22 [facility] [id number] 11/03/24 13:30 [facility] 11/03/24 13:22 Wound Center Nurse 1 #1 lt lat foot -Combined with other wound No -Current Size (cm) - Length 1.1 -Current Size (cm) - Width 1.2 -Current Size (cm) - Depth 0.4 -Total Square Cm 1.32 -Date of Last Picture (Recall this 11/03/24 field) -Photo Taken Yes -Epithelialization None Present -Tunneling No -Exudate Amt Medium -Exudate Type Serosanguineous -Wound Margin Distinct, Outline Attached -Granulation Amt Large (67-100%) -Granulation Quality Red -Slough/Fibrin Yes -Necrosis Amt Small (1-33%) -Necrotic Tissue Type Adherent Slough -Texture (Livier-wound Skin Appearance) Assessed -Moisture (Livier-wound Skin Appearance) Assessed -Color (Livier-wound Skin Appearance) Assessed, Erythema -Temperature (Livier-wound Skin No Abnormality Appearance) (Pt Warm) -Tenderness on Palpation (Livier-wound No Skin Appearance) -Ulcer Cleansing Rinsed/ Irrigated with Saline -Foul Odor after Cleansing No -Anesthetic Used 5% Lidocaine Gel WC - Nurse 2 - General Ulcer CM Notes Start: 11/03/24 13:22 Freq: Status: Active Protocol: Activity Type Activity Date Activity User E-sign Co-sign Detail Recorded Client Recorded Date Recorded By Document 11/03/24 13:39 [facility] [id number] 11/03/24 13:48 JF 11/03/24 13:39 Wound Center Nurse 2 -Time 13:40 -Correct Patient Yes -Correct Side, Site, Position Yes -Correct Procedure Yes -Procedure Performed Yes -Type of Procedure Debridement -Clinical Debridement Bone -Tissue Removed Non-viable tissue -Post Debridement (cm) - Length 0.9 -Post Debridement (cm) - Width 1.3 -Post Debridement (cm) - Depth 0.8 -Total Square (Post) (cm) 1.17 -Area of Debridement (cm) - Length 0.9 -Area of Debridement (cm) - Width 1.3 -Total Square (Area) (cm) 1.17 -Tunneling No -Undermining/Tunneling No -Circular Undermining No -Wound/Ulcer Outcome Not Healed -Ulcer Cleansing Rinsed/ Irrigated with Saline -Foul Odor after Cleansing No -Bioengineered Tissue No -Bleeding Controlled with Pressure, Surgifoam ? x 2 3/8 (sm) -Surgifoam (3/4 x 2 3/8) Small 1 -Treatment Response Procedure Tolerated Well -Offloading Yes -Type of Offloading Surgical Shoe -Assistive Device(s) Wheelchair -Debridement - Bone, 1st 20sq cm Yes Pain Scale: 0-10 Numeric Is Patient Pain Free? Yes - Nurse 3 - General Ulcer D/C NN Start: 11/03/24 13:22 Freq: Status: Active Protocol: Activity Type Activity Date Activity User E-sign Co-sign Detail Recorded Client Recorded Date Recorded By Document 11/03/24 14:06 ANTOINE [id number] 11/03/24 14:06 KW 11/03/24 14:06 Wound Care Center Nurse 3 #1 lt lat foot -Ulcer Cleansing Rinsed/ Irrigated with Saline -Primary Dressing Applied Silicone Border Foam 4x4, Silvercel -Silicone Border Foam 4x4 1 -Silvercel 1 Pain Scale: 0-10 Numeric Is Patient Pain Free? Yes WC - Visit Discharge Discharge Condition Stable Ambulatory Status Wheelchair Transportation Private Auto Medication Reconcilliation completed & No provided to patient/care provider Clinical Summary of Care Provided Yes Lab / Micro Data Micro: Microbiology 11/03/24 13:47 Ulcer, Decubitus - Left Foot Gram Stain - Final 11/03/24 13:47 Ulcer, Decubitus - Left Foot Wound Culture - Final Staphylococcus caprae 11/03/24 13:47 Ulcer, Decubitus - Left Foot Anaerobic Culture - Preliminary Checking for anaerobes, further studies to follow. Assessment/Plan Assessment/Plan (1) Other hereditary and idiopathic neuropathies: CODE(S): G60.8 - Other hereditary and idiopathic neuropathies PLAN: Patient was examined and evaluated. All findings were discussed with the patient. All questions were answered to the patient satisfaction. Excisional debridement down to and including subcutaneous tissue, fascia muscle and bone with a sterile rongeur done without incident. Predebridement measurement was 0.7 x 1.2 x 0.5 cm. Postdebridement measurement is 0.9 x 1.3 x 0.8 cm. Gelfoam was applied to the sanguinous drainage to the lateral left foot once drainage was resolved a culture was taken and the patient will be placed on antibiotics as needed. The area was dressed with Betadine soaked gauze, dry sterile dressing and light compression wrap. Due to the patient being nonambulatory I did discuss with the patient and his that there may be a need to move forward with elective surgery to remove the exposed bone, fifth metatarsal head and base of the proximal phalanx of the fifth digit of the left lower extremity. However they declined and would like to continue conservative treatment. I did educate them that if we continue to do conservative treatment and by the end of November to the beginning of December, we will not need to make a definitive procedure if the patient is not improved which they were understanding of. I will also make a letter of medical necessity for a flex step for the patient's garage to help transport the patient safely from their car to the garage. Patient will follow-up in [address] Gaines and will follow-up with myself Dr. Shaikh in 2 weeks (2) Non-pressure chronic ulcer of other part of left foot with necrosis of bone: CODE(S): L97.524 - Non-pressure chronic ulcer of other part of left foot with necrosis of bone
[2024-11-11 14:02] VITALS: BP 91/59; PULSE 68; RESP 18; TEMP 36.6
--- NOTE | 2024-11-11 17:22 | PCM.WC.PN ---
History of Present Illness Date of Service: 11/11/24 Chief Complaint: Full-thickness wound, left foot History of Wound: Patient quadriplegic follows up for left plantar fifth MPJ ulceration which started as a pressure ulceration. Patient denies constitutional symptoms pain or any changes since previous visit. Progress of Wound: Stable full-thickness wound to the lateral side of the left foot. Subjective Subjective I am seeing Mr. Polanco today as a courtesy visit for Dr. Shaikh. He has just been approved for Epifix application. His provides his wound care; she reports no concerning changes. Objective Data Objective Data Vital Signs: Vital Signs Temp Pulse Resp BP O2 Del Method 97.9 F 68 18 91/59 L Room Air 11/11/24 14:02 11/11/24 14:02 11/11/24 14:02 11/11/24 14:02 11/11/24 14:02 Oxygen Delivery Method Room Air Lab / Micro Data Micro: Microbiology 11/03/24 13:47 Ulcer, Decubitus - Left Foot Gram Stain - Final 11/03/24 13:47 Ulcer, Decubitus - Left Foot Wound Culture - Final Staphylococcus caprae Proteus mirabilis 11/03/24 13:47 Ulcer, Decubitus - Left Foot Anaerobic Culture - Final No anaerobic bacteria isolated. Charges/Coding Procedures Integumentary 150xxx-152xx: [id number] Skin sub graft trnk/arm/leg Physical Exam Const alert, oriented x3 and no apparent distress HEENT normocephalic Resp normal respiratory effort and no use of accessory muscles Effort and Inspection: able to speak in complete sentences Cardio regular rate and regular rhythm Extremity Extremity Narrative: Palpable pedal pulses, trace edema bilaterally Skin Wound Narrative: Full-thickness wound to the lateral aspect of the fifth metatarsal head measuring 1.1 x 1.0 x 0.8 cm. Wound base is granular nature with positive probe to bone. No periwound erythema is noted. Psych affect normal Appearance: grossly normal Speech: normal speech Debridement Note Debridement Note Wound debrided: L lateral foot Laterality: Left Type of Debridement: Excisional debridement Depth: to bone Percentage of wound debrided: 100 Instrument Used: 3mm curette Tissue Removed: slough, devitalized tissue Amount of bleeding with debridement: Mild Bleeding Controlled with: Pressure Patient tolerated procedure: Patient tolerated procedure well Post-Debridement Measurements and Additional Note: Post-Debridement Measurements/Treatment WC - Nurse 1 - General Ulcer Assessment Start: 11/03/24 13:22 Freq: Status: Active Protocol: DANIS Activity Type Activity Date Activity User E-sign Co-sign Detail Recorded Client Recorded Date Recorded By Document 11/03/24 13:22 [facility] [id number] 11/03/24 13:30 [facility] Document 11/11/24 14:02 KW [id number] 11/11/24 14:13 11/03/24 11/11/24 13:22 14:02 - Today's Visit Information Type of service Follow-up Visit 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 ) ) Arrival Mode Wheelchair Ambulatory Transfer Assistance None Patient Identification Verified (Name & Yes Yes ) Patient Requires Transmission-Based No Precautions Vital Signs Temperature (97.8 F-99.1 F) 97 F L 97.9 F Temperature Source Temporal Temporal Pulse Rate (60-100) 16 L 68 Pulse Location Monitor Monitor Respiratory Rate (12-18) 50 H 18 Respiratory rate source Observation Observation Oxygen Delivery Method Room Air Room Air Blood Pressure (90/60-120/80) 153/91 H 91/59 L Blood Pressure Mean (mm Hg) 111 69 Source Monitor Monitor Position Sitting Sitting Blood Pressure Location Left Arm Left Arm History Since Last Visit- (Skip if this is Patient's initial visit) Have you changed medications since your No No last visit? Any new allergies or adverse reactions No No Had a fall/change in ADL's that may No No increase risk of falls Signs or symptoms of abuse and/or No No neglect since last visit Have you been in the hospital since your No No last visit? Has dressing in place as prescribed Yes Yes Has compression in place as prescribed N/A Yes Has offloadiing in place as prescribed Yes Yes Experienced any changes in pain level or No No management Left Footwear Surgical Shoe Regular Shoe with pressure relief insole Right Footwear Regular Shoe Regular Shoe Pain Scale: 0-10 Numeric Is Patient Pain Free? Yes Yes - Nurse 1 - General Ulcer Measurement Start: 11/03/24 13:22 Freq: Status: Active Protocol: Activity Type Activity Date Activity User E-sign Co-sign Detail Recorded Client Recorded Date Recorded By Document 11/03/24 13:22 [facility] [id number] 11/03/24 13:30 [facility] Document 11/11/24 14:02 KW [id number] 11/11/24 14:13 KW 11/03/24 11/11/24 13:22 14:02 Wound Center Nurse 1 #1 lt lat foot -Combined with other wound No -Current Size (cm) - Length 1.1 1 -Current Size (cm) - Width 1.2 1.2 -Current Size (cm) - Depth 0.4 0.8 -Total Square Cm 1.32 1.2 -Date of Last Picture (Recall this 11/03/24 11/11/24 field) -Photo Taken Yes -Epithelialization None Present -Tunneling No -Exudate Amt Medium Medium -Exudate Type Serosanguineous Serosanguineous -Wound Margin Distinct, Thickened Outline Attached -Granulation Amt Large (67-100%) Large (67-100%) -Granulation Quality Red Red -Slough/Fibrin Yes -Necrosis Amt Small (1-33%) -Necrotic Tissue Type Adherent Slough -Structure Exposed Bone -Texture (Livier-wound Skin Appearance) Assessed Assessed -Moisture (Livier-wound Skin Appearance) Assessed Assessed -Color (Livier-wound Skin Appearance) Assessed, Assessed, Erythema Erythema -Temperature (Livier-wound Skin No Abnormality No Abnormality Appearance) (Pt Warm) (Pt Warm) -Tenderness on Palpation (Livier-wound No No Skin Appearance) -Ulcer Cleansing Rinsed/ Soap and Water Irrigated with Saline -Foul Odor after Cleansing No No -Anesthetic Used 5% Lidocaine 5% Lidocaine Gel Gel WC - Nurse 2 - General Ulcer CM Notes Start: 11/03/24 13:22 Freq: Status: Active Protocol: Activity Type Activity Date Activity User E-sign Co-sign Detail Recorded Client Recorded Date Recorded By Document 11/03/24 13:39 [id number] 11/03/24 13:48 Document 11/11/24 14:29 [id number] 11/11/24 14:46 11/03/24 11/11/24 13:39 14:29 Wound Center Nurse 2 #1 lt lat foot -Time 13:40 14:29 -Correct Patient Yes Yes -Correct Side, Site, Position Yes Yes -Correct Procedure Yes Yes -Procedure Performed Yes Yes -Type of Procedure Debridement Debridement -Clinical Debridement Bone Muscle / Fascia -Tissue Removed Non-viable Muscle tissue -Post Debridement (cm) - Length 0.9 1.1 -Post Debridement (cm) - Width 1.3 1.0 -Post Debridement (cm) - Depth 0.8 0.8 -Total Square (Post) (cm) 1.17 1.10 -Area of Debridement (cm) - Length 0.9 1.1 -Area of Debridement (cm) - Width 1.3 1.0 -Total Square (Area) (cm) 1.17 1.10 -Tunneling No No -Undermining/Tunneling No No -Circular Undermining No No -Wound/Ulcer Outcome Not Healed Not Healed -Ulcer Cleansing Rinsed/ Rinsed/ Irrigated with Irrigated with Saline Saline -Foul Odor after Cleansing No No -Bioengineered Tissue No Yes -Type of Bioengineered Tissue Epifix 18mm Disc -Expiration Date 07/03/29 -Product Lot Number [id number] -Percent Used 100 -Lot number of Saline Used [id number] -Bleeding Controlled with Pressure, Pressure Surgifoam ? x 2 3/8 (sm) -Surgifoam (3/4 x 2 3/8) Small 1 -Treatment Response Procedure Procedure Tolerated Well Tolerated Well -Offloading Yes No -Type of Offloading Surgical Shoe -Assistive Device(s) Wheelchair -Debridement - Muscle / Fascia, 1st Yes 20sq cm -Debridement - Bone, 1st 20sq cm Yes Pain Scale: 0-10 Numeric Is Patient Pain Free? Yes Yes WC - Nurse 3 - General Ulcer D/C NN Start: 11/03/24 13:22 Freq: Status: Active Protocol: Activity Type Activity Date Activity User E-sign Co-sign Detail Recorded Client Recorded Date Recorded By Document 11/03/24 14:06 KW [id number] 11/03/24 14:06 KW Document 11/11/24 14:56 DL [id number] 11/11/24 14:57 DL 11/03/24 11/11/24 14:06 14:56 Wound Care Center Nurse 3 #1 lt lat foot -Ulcer Cleansing Rinsed/ Irrigated with Saline -Foul Odor after Cleansing No -Primary Dressing Applied Silicone Border Foam 4x4, Silvercel -Other Dressing Epifix -Primary Dressing Covered/Secured with Dry Gauze & Roll Gauze -Silicone Border Foam 4x4 1 -Silvercel 1 Treatment Response Procedure Tolerated Well Pain Scale: 0-10 Numeric Is Patient Pain Free? Yes Yes WC - Visit Discharge Discharge Condition Stable Stable Ambulatory Status Wheelchair Wheelchair Transportation Private Auto Private Auto Medication Reconcilliation completed & No provided to patient/care provider Clinical Summary of Care Provided Yes Assessment/Plan Assessment/Plan (1) Other hereditary and idiopathic neuropathies: CODE(S): G60.8 - Other hereditary and idiopathic neuropathies (2) Non-pressure chronic ulcer of other part of left foot with necrosis of bone: CODE(S): L97.524 - Non-pressure chronic ulcer of other part of left foot with necrosis of bone PLAN: Plan Patient was approved for Epifix and we decided to start 1st application today. The wound was debrided to remove all devitalized tissue and to obtain a well-bleeding wound bed. The area was then cleansed with sterile saline. Then using sterile precautions Epifix graft #1 was applied to the wound base in the appropriate orientation. This was secured with wound veil and steri-strips and then covered with a foam-border dressing. They are instructed to leave this dressing in place for the next week taking care to keep it clean and dry at all times. They may change the outer dressing as needed to manage drainage. Patient will follow-up in [address] Shaikh.
--- NOTE | 2024-11-12 10:29 | WC ---
PHOTO 11/11/24 LEFT LATERAL FOOT
[2024-11-17 14:02] VITALS: BP 127/74; PULSE 89; RESP 16; TEMP 36.1
--- NOTE | 2024-11-17 15:28 | PCM.WC.PN ---
History of Present Illness Date of Service: 10/26/24 Chief Complaint: Full-thickness wound, left foot History of Wound: Patient quadriplegic follows up for left plantar fifth MPJ ulceration which started as a pressure ulceration. Patient denies constitutional symptoms pain or any changes since previous visit. Progress of Wound: Evidence of full-thickness wound with tissue necrosis down to bone to the lateral side of the left foot. Subjective Subjective Patient is a 44-year-old quadriplegic male presenting to wound care center today for follow-up evaluation of full-thickness wound to the lateral aspect of the left foot. Patient has been doing dressing changes as discussed. He did follow-up with physician academic affairs assistant Rosalina Bergman for evaluation and treatment. Patient's wound is stable but shows concern of bacterial growth with positive probe to bone. Patient will be placed on oral antibiotics at this time. He denies any pain to the left lower extremity. Denies trauma. Denies constitutional symptoms. No other pedal complaints at this time. Objective Data Objective Data Vital Signs: Vital Signs Temp Pulse Resp BP O2 Del Method 97 F L 89 16 127/74 H Room Air 11/17/24 14:02 11/17/24 14:02 11/17/24 14:02 11/17/24 14:02 11/11/24 14:02 Oxygen Delivery Method Room Air Lab / Micro Data Micro: Microbiology 11/03/24 13:47 Ulcer, Decubitus - Left Foot Gram Stain - Final 11/03/24 13:47 Ulcer, Decubitus - Left Foot Wound Culture - Final Staphylococcus caprae Proteus mirabilis 11/03/24 13:47 Ulcer, Decubitus - Left Foot Anaerobic Culture - Final No anaerobic bacteria isolated. Physical Exam Narrative Vascular: DP and PT pulses are palpable to left lower extremity. CFT is brisk. Blanchable erythema to the left foot. Skin temperature is warm to cool from proximal ankle to distal digits to the left extremity. Neurological: Patient is quadriplegic and does not have light touch and does not have protective sensation. Dermatological: Evidence of full-thickness wound to the lateral aspect of the fifth metatarsal head measuring 1.0 x 1.0 x 1.5 cm. Positive probe to bone. Blanchable erythema to the left foot and the lateral side. Excisional debridement down to including subcutaneous tissue, muscle, fascia and bone with a number 5 mm dermal curette to the lateral fifth metatarsal head full-thickness wound left foot done without incident. Postdebridement measurement was 0.9 x 0.9 x 1.0 cm. Postoperative measurement is 1.0 x 1.0 x 1.5 cm. Musculoskeletal:No pain to palpation of the full-thickness wound. No pain with calf pressure. Debridement Note Debridement Note Debridement Free Text: Excisional debridement down to including subcutaneous tissue, muscle, fascia and bone with a number 5 mm dermal curette to the lateral fifth metatarsal head full-thickness wound left foot done without incident. Postdebridement measurement was 0.9 x 0.9 x 1.0 cm. Postoperative measurement is 1.0 x 1.0 x 1.5 cm. Post-Debridement Measurements and Additional Note: Post-Debridement Measurements/Treatment - Nurse 1 - General Ulcer Assessment Start: 11/03/24 13:22 Freq: Status: Active Protocol: WC.LOWEXT Activity Type Activity Date Activity User E-sign Co-sign Detail Recorded Client Recorded Date Recorded By Document 11/03/24 13:22 [facility] [id number] 11/03/24 13:30 [facility] Document 11/11/24 14:02 KW [id number] 11/11/24 14:13 KW Document 11/17/24 14:02 DL [id number] 11/17/24 14:09 DL 11/03/24 11/11/24 11/17/24 13:22 14:02 14:02 - Today's Visit Information Type of service Follow-up Visit Follow-up Visit Follow-up Visit (Physician/CONSULTING SENIOR PRACTICE DIRECTOR (Physician/CONSULTING SENIOR PRACTICE DIRECTOR (Physician/CONSULTING SENIOR PRACTICE DIRECTOR ) ) ) Arrival Mode Wheelchair Ambulatory Wheelchair Transfer Assistance None None Patient Identification Verified (Name & Yes Yes Yes ) Patient Requires Transmission-Based No No Precautions Vital Signs Temperature (97.8 F-99.1 F) 97 F L 97.9 F 97 F L Temperature Source Temporal Temporal Temporal Pulse Rate (60-100) 16 L 68 89 Pulse Location Monitor Monitor Monitor Respiratory Rate (12-18) 50 H 18 16 Respiratory rate source Observation Observation Observation Oxygen Delivery Method Room Air Room Air Blood Pressure (90/60-120/80) 153/91 H 91/59 L 127/74 H Blood Pressure Mean (mm Hg) 111 69 91 Source Monitor Monitor Monitor Position Sitting Sitting Blood Pressure Location Left Arm Left Arm History Since Last Visit- (Skip if this is Patient's initial visit) Have you changed medications since your No No No last visit? Any new allergies or adverse reactions No No No Had a fall/change in ADL's that may No No No increase risk of falls Signs or symptoms of abuse and/or No No No neglect since last visit Have you been in the hospital since your No No No last visit? Has dressing in place as prescribed Yes Yes Yes Has compression in place as prescribed N/A Yes Yes Has offloadiing in place as prescribed Yes Yes Yes Experienced any changes in pain level or No No No management Left Footwear Surgical Shoe Regular Shoe with pressure relief insole Right Footwear Regular Shoe Regular Shoe Pain Scale: 0-10 Numeric Is Patient Pain Free? Yes Yes Yes WC - Nurse 1 - General Ulcer Measurement Start: 11/03/24 13:22 Freq: Status: Active Protocol: Activity Type Activity Date Activity User E-sign Co-sign Detail Recorded Client Recorded Date Recorded By Document 11/03/24 13:22 [facility] [id number] 11/03/24 13:30 [facility] Document 11/11/24 14:02 KW [id number] 11/11/24 14:13 KW Document 11/17/24 14:02 DL [id number] 11/17/24 14:09 DL 11/03/24 11/11/24 11/17/24 13:22 14:02 14:02 Wound Center Nurse 1 #1 lt lat foot -Combined with other wound No -Current Size (cm) - Length 1.1 1 0.7 -Current Size (cm) - Width 1.2 1.2 0.7 -Current Size (cm) - Depth 0.4 0.8 0.8 -Total Square Cm 1.32 1.2 0.49 -Date of Last Picture (Recall this 11/03/24 11/11/24 field) -Photo Taken Yes -Epithelialization None Present -Tunneling No -Maximum Distance #2 (cm) 0.9 -Circular Undermining Yes -Exudate Amt Medium Medium Medium -Exudate Type Serosanguineous Serosanguineous Serosanguineous -Wound Margin Distinct, Thickened Distinct, Outline Outline Attached Attached -Granulation Amt Large (67-100%) Large (67-100%) Large (67-100%) -Granulation Quality Red Red Red -Slough/Fibrin Yes -Necrosis Amt Small (1-33%) None Present (0 %) -Necrotic Tissue Type Adherent Slough -Structure Exposed Bone N/A -Texture (Livier-wound Skin Appearance) Assessed Assessed Scarring -Moisture (Livier-wound Skin Appearance) Assessed Assessed Maceration -Color (Livier-wound Skin Appearance) Assessed, Assessed, No Abnormality Erythema Erythema -Temperature (Livier-wound Skin No Abnormality No Abnormality No Abnormality Appearance) (Pt Warm) (Pt Warm) (Pt Warm) -Tenderness on Palpation (Livier-wound No No No Skin Appearance) -Ulcer Cleansing Rinsed/ Soap and Water Soap and Water Irrigated with Saline -Foul Odor after Cleansing No No No -Anesthetic Used 5% Lidocaine 5% Lidocaine Gel Gel WC - Nurse 2 - General Ulcer CM Notes Start: 11/03/24 13:22 Freq: Status: Active Protocol: Activity Type Activity Date Activity User E-sign Co-sign Detail Recorded Client Recorded Date Recorded By Document 11/03/24 13:39 [id number] 11/03/24 13:48 Document 11/11/24 14:29 [id number] 11/11/24 14:46 Document 11/17/24 14:28 [id number] 11/17/24 14:30 11/03/24 11/11/24 11/17/24 13:39 14:29 14:28 Wound Center Nurse 2 #1 lt lat foot -Time 13:40 14:29 14:28 -Correct Patient Yes Yes Yes -Correct Side, Site, Position Yes Yes Yes -Correct Procedure Yes Yes Yes -Procedure Performed Yes Yes Yes -Type of Procedure Debridement Debridement Debridement -Clinical Debridement Bone Muscle / Fascia Bone -Tissue Removed Non-viable Muscle Non-viable tissue tissue -Post Debridement (cm) - Length 0.9 1.1 1.0 -Post Debridement (cm) - Width 1.3 1.0 1.0 -Post Debridement (cm) - Depth 0.8 0.8 1.5 -Total Square (Post) (cm) 1.17 1.10 1.00 -Area of Debridement (cm) - Length 0.9 1.1 1.0 -Area of Debridement (cm) - Width 1.3 1.0 1.0 -Total Square (Area) (cm) 1.17 1.10 1.00 -Tunneling No No No -Undermining/Tunneling No No No -Circular Undermining No No No -Wound/Ulcer Outcome Not Healed Not Healed Not Healed -Ulcer Cleansing Rinsed/ Rinsed/ Rinsed/ Irrigated with Irrigated with Irrigated with Saline Saline Saline -Foul Odor after Cleansing No No No -Bioengineered Tissue No Yes No -Type of Bioengineered Tissue Epifix 18mm Disc -Expiration Date 07/03/29 -Product Lot Number [id number] -Percent Used 100 -Lot number of Saline Used [id number] -Bleeding Controlled with Pressure, Pressure Pressure Surgifoam ? x 2 3/8 (sm) -Surgifoam (3/4 x 2 3) Small 1 -Treatment Response Procedure Procedure Procedure Tolerated Well Tolerated Well Tolerated Well -Offloading Yes No Yes -Type of Offloading Surgical Shoe Surgical Shoe -Assistive Device(s) Wheelchair -Debridement - Muscle / Fascia, 1st Yes 20sq cm -Debridement - Bone, 1st 20sq cm Yes Yes Pain Scale: 0-10 Numeric Is Patient Pain Free? Yes Yes Yes - Nurse 3 - General Ulcer D/C NN Start: 11/03/24 13:22 Freq: Status: Active Protocol: Activity Type Activity Date Activity User E-sign Co-sign Detail Recorded Client Recorded Date Recorded By Document 11/03/24 14:06 KW [id number] 11/03/24 14:06 KW Document 11/11/24 14:56 DL [id number] 11/11/24 14:57 DL Document 11/17/24 14:50 [facility] [id number] 11/17/24 14:52 [facility] 11/03/24 11/11/24 11/17/24 14:06 14:56 14:50 Wound Care Center Nurse 3 #1 lt lat foot -Ulcer Cleansing Rinsed/ Rinsed/ Irrigated with Irrigated with Saline Saline -Foul Odor after Cleansing No No -Primary Dressing Applied Silicone Border Foam 4x4, Silvercel -Other Dressing Epifix betadine soaked gauze -Primary Dressing Covered/Secured with Dry Gauze & Dry Gauze & Roll Gauze Roll Gauze, Secured with Tape -Silicone Border Foam 4x4 1 -Silvercel 1 LLE -Compression Wrap Tobi Wrap -Other tobi to secure Treatment Response Procedure Procedure Tolerated Well Tolerated Well Pain Scale: 0-10 Numeric Is Patient Pain Free? Yes Yes Yes WC - Visit Discharge Discharge Condition Stable Stable Stable Ambulatory Status Wheelchair Wheelchair Wheelchair Transportation Private Auto Private Auto Private Auto Accompanied by Medication Reconcilliation completed & No provided to patient/care provider Clinical Summary of Care Provided Yes Assessment/Plan Assessment/Plan (1) Cellulitis of left lower limb: CODE(S): L03.116 - Cellulitis of left lower limb PLAN: Patient was examined and evaluated. All findings were discussed with the patient. All questions were answered to the patient's satisfaction. Excisional debridement down to including subcutaneous tissue, muscle, fascia and bone with a number 5 mm dermal curette to the lateral fifth metatarsal head full-thickness wound left foot done without incident. Postdebridement measurement was 0.9 x 0.9 x 1.0 cm. Postoperative measurement is 1.0 x 1.0 x 1.5 cm. Left lower extremity left clean and patted dry. Betadine soaked gauze followed by dry sterile dressing compression wrap were donned. Patient perform daily dressing change. After review of the patient's microbiology results the patient will be placed on ciprofloxacin 750 mg twice daily for 2 weeks. Due to the concern for bone infection we will extend this antibiotic for an additional 2 to 4 weeks after the initial 2-week course. Educated the patient and his to continue to offload his bilateral lower extremity. If the patient fails outpatient conservative treatment we will recommend surgical intervention for removal of the infected bone at the level of the fifth metatarsal head left foot. All risk and benefits were discussed with patient great detail. Follow-up at the wound care center with Dr. Shaikh in 1 week. (2) Non-pressure chronic ulcer of other part of left foot with necrosis of bone: CODE(S): L97.524 - Non-pressure chronic ulcer of other part of left foot with necrosis of bone (3) Other hereditary and idiopathic neuropathies: CODE(S): G60.8 - Other hereditary and idiopathic neuropathies
[2024-11-24 09:35] VITALS: BP 107/57; PULSE 61; RESP 16; TEMP 36.1
--- NOTE | 2024-11-24 10:21 | PN.PCM_ITS ---
History of Present Illness Date of Service: 11/24/24 Chief Complaint: Full-thickness wound, left foot History of Wound: Patient quadriplegic follows up for left plantar fifth MPJ ulceration which started as a pressure ulceration. Patient denies constitutional symptoms pain or any changes since previous visit. Progress of Wound: Evidence of full-thickness wound with tissue necrosis down to bone to the lateral side of the left foot. Subjective Subjective Patient is a 44-year-old quadriplegic male in motorized wheelchair presenting to the wound care center today for follow-up evaluation of full-thickness wound to the lateral left foot at the level of the fifth metatarsal head. Patient has been compliant with taking his oral antibiotics, ciprofloxacin 750 mg twice daily. He admits improved redness to the left foot. Dressing changes has been done with Betadine paint and packed gauze to the left foot provided by his . They admit things are improving. Denies trauma. He denies constitutional symptoms. No other pedal complaints at this time. Objective Data Objective Data Vital Signs: Vital Signs Temp Pulse Resp BP O2 Del Method 97 F L 61 16 107/57 L Room Air 11/24/24 09:35 11/24/24 09:35 11/24/24 09:35 11/24/24 09:35 11/11/24 14:02 Oxygen Delivery Method Room Air Lab / Micro Data Micro: Microbiology 11/03/24 13:47 Ulcer, Decubitus - Left Foot Gram Stain - Final 11/03/24 13:47 Ulcer, Decubitus - Left Foot Wound Culture - Final Staphylococcus caprae Proteus mirabilis 11/03/24 13:47 Ulcer, Decubitus - Left Foot Anaerobic Culture - Final No anaerobic bacteria isolated. Physical Exam Narrative Vascular: DP and PT pulses are palpable to left lower extremity. CFT is brisk. Blanchable erythema to the left foot, improving. Skin temperature is warm to cool from proximal ankle to distal digits to the left extremity. Neurological: Patient is quadriplegic and does not have light touch and does not have protective sensation. Dermatological: Evidence of full-thickness wound to the lateral aspect of the fifth metatarsal head measuring 1.2 x 1.2 x 0.5 cm. Positive probe to bone. Blanchable erythema to the left foot and the lateral side. Excisional debridement down to including subcutaneous tissue, muscle, fascia and bone with a number 5 mm dermal curette to the lateral fifth metatarsal head full-thickness wound left foot done without incident. Postdebridement measurement was 1.1 x 1.0 x 0.4 cm. Postoperative measurement is 1.2 x 1.2 x 0.5 cm. Musculoskeletal:No pain to palpation of the full-thickness wound. No pain with calf pressure. Debridement Note Debridement Note Debridement Free Text: Excisional debridement down to including subcutaneous tissue, muscle, fascia and bone with a number 5 mm dermal curette to the lateral fifth metatarsal head full-thickness wound left foot done without incident. Postdebridement measurement was 1.1 x 1.0 x 0.4 cm. Postoperative measurement is 1.2 x 1.2 x 0.5 cm. Post-Debridement Measurements and Additional Note: Post-Debridement Measurements/Treatment - Nurse 1 - General Ulcer Assessment Start: 11/03/24 13:22 Freq: Status: Active Protocol: DANIS Activity Type Activity Date Activity User E-sign Co-sign Detail Recorded Client Recorded Date Recorded By Document 11/03/24 13:22 BMF [id number] 11/03/24 13:30 BMF Document 11/11/24 14:02 KW [id number] 11/11/24 14:13 KW Document 11/17/24 14:02 DL [id number] 11/17/24 14:09 DL Document 11/24/24 09:35 JF [id number] 11/24/24 09:37 JF 11/03/24 11/11/24 11/17/24 13:22 14:02 14:02 - Today's Visit Information Type of service Follow-up Visit Follow-up Visit Follow-up Visit (Physician/ANALYSIS INTERN (Physician/ANALYSIS INTERN (Physician/ANALYSIS INTERN ) ) ) Arrival Mode Wheelchair Ambulatory Wheelchair Transfer Assistance None None Accompanied by Patient Identification Verified (Name & Yes Yes Yes ) Patient Requires Transmission-Based No No Precautions Vital Signs Temperature (97.8 F-99.1 F) 97 F L 97.9 F 97 F L Temperature Source Temporal Temporal Temporal Pulse Rate (60-100) 16 L 68 89 Pulse Location Monitor Monitor Monitor Respiratory Rate (12-18) 50 H 18 16 Respiratory rate source Observation Observation Observation Oxygen Delivery Method Room Air Room Air Blood Pressure (90/60-120/80) 153/91 H 91/59 L 127/74 H Blood Pressure Mean (mm Hg) 111 69 91 Source Monitor Monitor Monitor Position Sitting Sitting Blood Pressure Location Left Arm Left Arm History Since Last Visit- (Skip if this is Patient's initial visit) Have you changed medications since your No No No last visit? Any new allergies or adverse reactions No No No Had a fall/change in ADL's that may No No No increase risk of falls Signs or symptoms of abuse and/or No No No neglect since last visit Have you been in the hospital since your No No No last visit? Has dressing in place as prescribed Yes Yes Yes Has compression in place as prescribed N/A Yes Yes Has offloadiing in place as prescribed Yes Yes Yes Experienced any changes in pain level or No No No management Left Footwear Surgical Shoe Regular Shoe with pressure relief insole Right Footwear Regular Shoe Regular Shoe Pain Scale: 0-10 Numeric Is Patient Pain Free? Yes Yes Yes 11/24/24 09:35 WC - Today's Visit Information Type of service Follow-up Visit (Physician/ANALYSIS INTERN ) Arrival Mode Wheelchair Transfer Assistance Manual Accompanied by Patient Identification Verified (Name & Yes ) Patient Requires Transmission-Based Precautions Vital Signs Temperature (97.8 F-99.1 F) 97 F L Temperature Source Temporal Pulse Rate (60-100) 61 Pulse Location Monitor Respiratory Rate (12-18) 16 Respiratory rate source Observation Oxygen Delivery Method Blood Pressure (90/60-120/80) 107/57 L Blood Pressure Mean (mm Hg) 73 Source Monitor Position Sitting Blood Pressure Location Left Arm History Since Last Visit- (Skip if this is Patient's initial visit) Have you changed medications since your Yes last visit? Any new allergies or adverse reactions No Had a fall/change in ADL's that may No increase risk of falls Signs or symptoms of abuse and/or No neglect since last visit Have you been in the hospital since your No last visit? Has dressing in place as prescribed Has compression in place as prescribed Yes Has offloadiing in place as prescribed Yes Experienced any changes in pain level or Yes management Left Footwear Surgical Shoe with pressure relief insole Right Footwear Regular Shoe Pain Scale: 0-10 Numeric Is Patient Pain Free? Yes WC - Nurse 1 - General Ulcer Measurement Start: 11/03/24 13:22 Freq: Status: Active Protocol: Activity Type Activity Date Activity User E-sign Co-sign Detail Recorded Client Recorded Date Recorded By Document 11/03/24 13:22 BMF [id number] 11/03/24 13:30 BM Document 11/11/24 14:02 KW [id number] 11/11/24 14:13 KW Document 11/17/24 14:02 DL [id number] 11/17/24 14:09 DL Document 11/24/24 09:35 JF [id number] 11/24/24 09:37 JF 11/03/24 11/11/24 11/17/24 13:22 14:02 14:02 Wound Center Nurse 1 #1 lt lat foot -Combined with other wound No -Current Size (cm) - Length 1.1 1 0.7 -Current Size (cm) - Width 1.2 1.2 0.7 -Current Size (cm) - Depth 0.4 0.8 0.8 -Total Square Cm 1.32 1.2 0.49 -Date of Last Picture (Recall this 11/03/24 11/11/24 field) -Photo Taken Yes -Epithelialization None Present -Tunneling No -Undermining/Tunneling -Maximum Distance #2 (cm) 0.9 -Circular Undermining Yes -Exudate Amt Medium Medium Medium -Exudate Type Serosanguineous Serosanguineous Serosanguineous -Wound Margin Distinct, Thickened Distinct, Outline Outline Attached Attached -Granulation Amt Large (67-100%) Large (67-100%) Large (67-100%) -Granulation Quality Red Red Red -Slough/Fibrin Yes -Necrosis Amt Small (1-33%) None Present (0 %) -Necrotic Tissue Type Adherent Slough -Structure Exposed Bone N/A -Texture (Livier-wound Skin Appearance) Assessed Assessed Scarring -Moisture (Livier-wound Skin Appearance) Assessed Assessed Maceration -Color (Livier-wound Skin Appearance) Assessed, Assessed, No Abnormality Erythema Erythema -Temperature (Livier-wound Skin No Abnormality No Abnormality No Abnormality Appearance) (Pt Warm) (Pt Warm) (Pt Warm) -Tenderness on Palpation (Livier-wound No No No Skin Appearance) -Ulcer Cleansing Rinsed/ Soap and Water Soap and Water Irrigated with Saline -Foul Odor after Cleansing No No No -Anesthetic Used 5% Lidocaine 5% Lidocaine Gel Gel Lower Limb Edema Present 11/24/24 09:35 Wound Center Nurse 1 #1 lt lat foot -Combined with other wound No -Current Size (cm) - Length 1.5 -Current Size (cm) - Width 0.8 -Current Size (cm) - Depth 0.5 -Total Square Cm 1.20 -Date of Last Picture (Recall this field) -Photo Taken Yes -Epithelialization Small 1-33% -Tunneling No -Undermining/Tunneling No -Maximum Distance #2 (cm) -Circular Undermining No -Exudate Amt Medium -Exudate Type Serosanguineous -Wound Margin Distinct, Outline Attached -Granulation Amt Large (67-100%) -Granulation Quality Red -Slough/Fibrin No -Necrosis Amt -Necrotic Tissue Type -Structure Exposed Bone -Texture (Livier-wound Skin Appearance) Assessed -Moisture (Livier-wound Skin Appearance) No Abnormality, Dry/Scaly -Color (Livier-wound Skin Appearance) Assessed -Temperature (Livier-wound Skin No Abnormality Appearance) (Pt Warm) -Tenderness on Palpation (Livier-wound No Skin Appearance) -Ulcer Cleansing Rinsed/ Irrigated with Saline -Foul Odor after Cleansing No -Anesthetic Used Lower Limb Edema Present NA WC - Nurse 2 - General Ulcer CM Notes Start: 11/03/24 13:22 Freq: Status: Active Protocol: Activity Type Activity Date Activity User E-sign Co-sign Detail Recorded Client Recorded Date Recorded By Document 11/03/24 13:39 [id number] 11/03/24 13:48 Document 11/11/24 14:29 [id number] 11/11/24 14:46 Document 11/17/24 14:28 [id number] 11/17/24 14:30 Document 11/24/24 09:38 [id number] 11/24/24 09:39 11/03/24 11/11/24 11/17/24 13:39 14:29 14:28 Wound Center Nurse 2 #1 lt lat foot -Time 13:40 14:29 14:28 -Correct Patient Yes Yes Yes -Correct Side, Site, Position Yes Yes Yes -Correct Procedure Yes Yes Yes -Procedure Performed Yes Yes Yes -Type of Procedure Debridement Debridement Debridement -Clinical Debridement Bone Muscle / Fascia Bone -Tissue Removed Non-viable Muscle Non-viable tissue tissue -Post Debridement (cm) - Length 0.9 1.1 1.0 -Post Debridement (cm) - Width 1.3 1.0 1.0 -Post Debridement (cm) - Depth 0.8 0.8 1.5 -Total Square (Post) (cm) 1.17 1.10 1.00 -Area of Debridement (cm) - Length 0.9 1.1 1.0 -Area of Debridement (cm) - Width 1.3 1.0 1.0 -Total Square (Area) (cm) 1.17 1.10 1.00 -Tunneling No No No -Undermining/Tunneling No No No -Circular Undermining No No No -Wound/Ulcer Outcome Not Healed Not Healed Not Healed -Ulcer Cleansing Rinsed/ Rinsed/ Rinsed/ Irrigated with Irrigated with Irrigated with Saline Saline Saline -Foul Odor after Cleansing No No No -Bioengineered Tissue No Yes No -Type of Bioengineered Tissue Epifix 18mm Disc -Expiration Date 07/03/29 -Product Lot Number [id number] -Percent Used 100 -Lot number of Saline Used [id number] -Bleeding Controlled with Pressure, Pressure Pressure Surgifoam ? x 2 3/8 (sm) -Surgifoam (3/4 x 2 3/8) Small 1 -Treatment Response Procedure Procedure Procedure Tolerated Well Tolerated Well Tolerated Well -Offloading Yes No Yes -Type of Offloading Surgical Shoe Surgical Shoe -Assistive Device(s) Wheelchair -Debridement - Muscle / Fascia, 1st Yes 20sq cm -Debridement - Bone, 1st 20sq cm Yes Yes Pain Scale: 0-10 Numeric Is Patient Pain Free? Yes Yes Yes 11/24/24 09:38 Wound Center Nurse 2 #1 lt lat foot -Time 09:38 -Correct Patient Yes -Correct Side, Site, Position Yes -Correct Procedure Yes -Procedure Performed Yes -Type of Procedure Debridement -Clinical Debridement Bone -Tissue Removed Non-viable tissue -Post Debridement (cm) - Length 1.2 -Post Debridement (cm) - Width 1.2 -Post Debridement (cm) - Depth 0.5 -Total Square (Post) (cm) 1.44 -Area of Debridement (cm) - Length 1.2 -Area of Debridement (cm) - Width 1.2 -Total Square (Area) (cm) 1.44 -Tunneling No -Undermining/Tunneling No -Circular Undermining No -Wound/Ulcer Outcome Not Healed -Ulcer Cleansing Rinsed/ Irrigated with Saline -Foul Odor after Cleansing No -Bioengineered Tissue No -Type of Bioengineered Tissue -Expiration Date -Product Lot Number -Percent Used -Lot number of Saline Used -Bleeding Controlled with Pressure -Surgifoam (3 x 2 07/10) Small -Treatment Response Procedure Tolerated Well -Offloading Yes -Type of Offloading Surgical Shoe -Assistive Device(s) -Debridement - Muscle / Fascia, 1st 20sq cm -Debridement - Bone, 1st 20sq cm Yes Pain Scale: 0-10 Numeric Is Patient Pain Free? Yes - Nurse 3 - General Ulcer D/C NN Start: 11/03/24 13:22 Freq: Status: Active Protocol: Activity Type Activity Date Activity User E-sign Co-sign Detail Recorded Client Recorded Date Recorded By Document 11/03/24 14:06 KW [id number] 11/03/24 14:06 KW Document 11/11/24 14:56 DL [id number] 11/11/24 14:57 DL Document 11/17/24 14:50 BMF [id number] 11/17/24 14:52 BMF Document 11/24/24 09:56 KW [id number] 11/24/24 09:57 KW 11/03/24 11/11/24 11/17/24 14:06 14:56 14:50 Wound Care Center Nurse 3 #1 lt lat foot -Ulcer Cleansing Rinsed/ Rinsed/ Irrigated with Irrigated with Saline Saline -Foul Odor after Cleansing No No -Primary Dressing Applied Silicone Border Foam 4x4, Silvercel -Other Dressing Epifix betadine soaked gauze -Primary Dressing Covered/Secured with Dry Gauze & Dry Gauze & Roll Gauze Roll Gauze, Secured with Tape -Silicone Border Foam 4x4 1 -Silvercel 1 LLE -Compression Wrap Tobi Wrap -Other tobi to secure Treatment Response Procedure Procedure Tolerated Well Tolerated Well Pain Scale: 0-10 Numeric Is Patient Pain Free? Yes Yes Yes - Visit Discharge Discharge Condition Stable Stable Stable Ambulatory Status Wheelchair Wheelchair Wheelchair Transportation Private Auto Private Auto Private Auto Accompanied by Medication Reconcilliation completed & No provided to patient/care provider Clinical Summary of Care Provided Yes 11/24/24 09:56 Wound Care Center Nurse 3 #1 lt lat foot -Ulcer Cleansing -Foul Odor after Cleansing -Primary Dressing Applied -Other Dressing betadine gauze -Primary Dressing Covered/Secured with Dry Gauze & Roll Gauze, Secured with Tape -Silicone Border Foam 4x4 -Silvercel LLE -Compression Wrap Tobi Wrap -Other pt own to secure dressing Treatment Response Pain Scale: 0-10 Numeric Is Patient Pain Free? Yes WC - Visit Discharge Discharge Condition Stable Ambulatory Status Wheelchair Transportation Private Auto Accompanied by Medication Reconcilliation completed & No provided to patient/care provider Clinical Summary of Care Provided Yes Assessment/Plan Assessment/Plan (1) Cellulitis of left lower limb: CODE(S): L03.116 - Cellulitis of left lower limb PLAN: Patient was examined and evaluated. All findings were discussed with the patient. All questions were answered to the patient's satisfaction. Excisional debridement down to including subcutaneous tissue, muscle, fascia and bone with a number 5 mm dermal curette to the lateral fifth metatarsal head full-thickness wound left foot done without incident. Postdebridement measurement was 1.1 x 1.0 x 0.4 cm. Postoperative measurement is 1.2 x 1.2 x 0.5 cm. The left foot was wiped plain and patted dry. Betadine soaked gauze was packed in the full-thickness wound followed by dry sterile dressing and compression wrap. Patient will continue daily dressing changes. Patient will continue his oral antibiotic as prescribed. We will prescribe an additional 2 weeks of oral antibiotics at the patient's next follow-up. We resume amniotic skin graft substitute as next appointment. No plan for surgical intervention at this time as the patient is improving. Follow-up at the wound care center with Dr. Shaikh in 1 week. (2) Non-pressure chronic ulcer of other part of left foot with necrosis of bone: CODE(S): L97.524 - Non-pressure chronic ulcer of other part of left foot with necrosis of bone (3) Other hereditary and idiopathic neuropathies: CODE(S): G60.8 - Other hereditary and idiopathic neuropathies
--- NOTE | 2024-11-25 08:27 | WC ---
PHOTO-LEFT LATERAL FOOT 11/24/24
[2024-12-01 13:39] VITALS: BP 124/67; PULSE 49; RESP 16; TEMP 36.3
--- NOTE | 2024-12-02 14:16 | PN.PCM_ITS ---
History of Present Illness Date of Service: 12/01/24 Chief Complaint: Full-thickness wound, left foot History of Wound: Patient quadriplegic follows up for left plantar fifth MPJ ulceration which started as a pressure ulceration. Patient denies constitutional symptoms pain or any changes since previous visit. Progress of Wound: Evidence of full-thickness wound with tissue necrosis down to bone to the lateral side of the left foot. Subjective Subjective Patient is a 44-year-old quadriplegic male presenting to wound care center today for follow-up evaluation of full-thickness wound to the lateral aspect of the fifth metatarsal head of the left foot. Patient is nonambulatory. He has been doing dressing changes as discussed. He is taking his oral antibiotics as prescribed. He admits great improvement to the wound as well as the redness to the left foot. The patient does not respond to pain. He denies any new onset of trauma. Denies constitutional symptoms. No other pedal complaints at this time. Objective Data Objective Data Vital Signs: Vital Signs Temp Pulse Resp BP O2 Del Method 97.3 F L 49 L 16 124/67 H Room Air 12/01/24 13:39 12/01/24 13:39 12/01/24 13:39 12/01/24 13:39 12/01/24 13:39 Oxygen Delivery Method Room Air Lab / Micro Data Micro: Microbiology 11/03/24 13:47 Ulcer, Decubitus - Left Foot Gram Stain - Final 11/03/24 13:47 Ulcer, Decubitus - Left Foot Wound Culture - Final Staphylococcus caprae Proteus mirabilis 11/03/24 13:47 Ulcer, Decubitus - Left Foot Anaerobic Culture - Final No anaerobic bacteria isolated. Physical Exam Narrative Vascular: DP and PT pulses are palpable to left lower extremity. CFT is brisk. No erythema. Skin temperature is warm to cool from proximal ankle to distal digits to the left extremity. Neurological: Patient is quadriplegic and does not have light touch and does not have protective sensation. Dermatological: Evidence of full-thickness wound to the lateral aspect of the fifth metatarsal head measuring 1.0 x 1.4 x 0.8 cm. Positive probe to bone. Excisional debridement down to including subcutaneous tissue, muscle, fascia and bone with a number 5 mm dermal curette to the lateral fifth metatarsal head full-thickness wound left foot done without incident. Postdebridement measurement was 0.9 x 1.3 x 0.6 cm. Postoperative measurement is 1.0 x 1.4 x 0.8 cm. Epi cord 2.0 x 3.0 cm graft was applied and 100% application to the full- thickness wound to the lateral left foot. First application. There was no concern for infection. Bolster dressing was applied followed by dry sterile dressing and compression wrap. Musculoskeletal:No pain to palpation of the full-thickness wound. No pain with calf pressure. Debridement Note Debridement Note Debridement Free Text: Excisional debridement down to including subcutaneous tissue, muscle, fascia and bone with a number 5 mm dermal curette to the lateral fifth metatarsal head full-thickness wound left foot done without incident. Postdebridement measurement was 0.9 x 1.3 x 0.6 cm. Postoperative measurement is 1.0 x 1.4 x 0.8 cm. Epi cord 2.0 x 3.0 cm graft was applied and 100% application to the full- thickness wound to the lateral left foot. First application. There was no concern for infection. Bolster dressing was applied followed by dry sterile dressing and compression wrap. Post-Debridement Measurements and Additional Note: Post-Debridement Measurements/Treatment - Nurse 1 - General Ulcer Assessment Start: 11/03/24 13:22 Freq: Status: Active Protocol: DANIS Activity Type Activity Date Activity User E-sign Co-sign Detail Recorded Client Recorded Date Recorded By Document 11/03/24 13:22 BMF [id number] 11/03/24 13:30 BMF Document 11/11/24 14:02 KW [id number] 11/11/24 14:13 KW Document 11/17/24 14:02 DL [id number] 11/17/24 14:09 DL Document 11/24/24 09:35 JF [id number] 11/24/24 09:37 JF Document 12/01/24 13:39 GM [id number] 12/01/24 13:41 11/03/24 11/11/24 11/17/24 13:22 14:02 14:02 - Today's Visit Information Type of service Follow-up Visit Follow-up Visit Follow-up Visit (Physician/ASSOCIATE PROFESSOR OF BIOLOGY (Physician/ASSOCIATE PROFESSOR OF BIOLOGY (Physician/ASSOCIATE PROFESSOR OF BIOLOGY ) ) ) Arrival Mode Wheelchair Ambulatory Wheelchair Transfer Assistance None None Accompanied by Patient Identification Verified (Name & Yes Yes Yes ) Patient Requires Transmission-Based No No Precautions Vital Signs Temperature (97.8 F-99.1 F) 97 F L 97.9 F 97 F L Temperature Source Temporal Temporal Temporal Pulse Rate (60-100) 16 L 68 89 Pulse Location Monitor Monitor Monitor Respiratory Rate (12-18) 50 H 18 16 Respiratory rate source Observation Observation Observation Oxygen Delivery Method Room Air Room Air Blood Pressure (90/60-120/80) 153/91 H 91/59 L 127/74 H Blood Pressure Mean (mm Hg) 111 69 91 Source Monitor Monitor Monitor Position Sitting Sitting Blood Pressure Location Left Arm Left Arm History Since Last Visit- (Skip if this is Patient's initial visit) Have you changed medications since your No No No last visit? Any new allergies or adverse reactions No No No Had a fall/change in ADL's that may No No No increase risk of falls Signs or symptoms of abuse and/or No No No neglect since last visit Have you been in the hospital since your No No No last visit? Has dressing in place as prescribed Yes Yes Yes Has compression in place as prescribed N/A Yes Yes Has offloadiing in place as prescribed Yes Yes Yes Experienced any changes in pain level or No No No management Left Footwear Surgical Shoe Regular Shoe with pressure relief insole Right Footwear Regular Shoe Regular Shoe Pain Scale: 0-10 Numeric Is Patient Pain Free? Yes Yes Yes 11/24/24 12/01/24 09:35 13:39 WC - Today's Visit Information Type of service Follow-up Visit Follow-up Visit (Physician/ASSOCIATE PROFESSOR OF BIOLOGY (Physician/ASSOCIATE PROFESSOR OF BIOLOGY ) ) Arrival Mode Wheelchair Wheelchair Transfer Assistance Manual None Accompanied by Patient Identification Verified (Name & Yes Yes ) Patient Requires Transmission-Based No Precautions Vital Signs Temperature (97.8 F-99.1 F) 97 F L 97.3 F L Temperature Source Temporal Temporal Pulse Rate (60-100) 61 49 L Pulse Location Monitor Monitor Respiratory Rate (12-18) 16 16 Respiratory rate source Observation Observation Oxygen Delivery Method Room Air Blood Pressure (90/60-120/80) 107/57 L 124/67 H Blood Pressure Mean (mm Hg) 73 86 Source Monitor Monitor Position Sitting Sitting Blood Pressure Location Left Arm Left Arm History Since Last Visit- (Skip if this is Patient's initial visit) Have you changed medications since your Yes No last visit? Any new allergies or adverse reactions No No Had a fall/change in ADL's that may No No increase risk of falls Signs or symptoms of abuse and/or No No neglect since last visit Have you been in the hospital since your No No last visit? Has dressing in place as prescribed Yes Has compression in place as prescribed Yes N/A Has offloadiing in place as prescribed Yes Yes Experienced any changes in pain level or Yes No management Left Footwear Surgical Shoe No Footwear with pressure relief insole Right Footwear Regular Shoe Pain Scale: 0-10 Numeric Is Patient Pain Free? Yes Yes WC - Nurse 1 - General Ulcer Measurement Start: 11/03/24 13:22 Freq: Status: Active Protocol: Activity Type Activity Date Activity User E-sign Co-sign Detail Recorded Client Recorded Date Recorded By Document 11/03/24 13:22 BMF [id number] 11/03/24 13:30 BMF Document 11/11/24 14:02 KW [id number] 11/11/24 14:13 KW Document 11/17/24 14:02 DL [id number] 11/17/24 14:09 DL Document 11/24/24 09:35 JF [id number] 11/24/24 09:37 JF Document 12/01/24 13:39 GM [id number] 12/01/24 13:41 GM 11/03/24 11/11/24 11/17/24 13:22 14:02 14:02 Wound Center Nurse 1 #1 lt lat foot -Combined with other wound No -Current Size (cm) - Length 1.1 1 0.7 -Current Size (cm) - Width 1.2 1.2 0.7 -Current Size (cm) - Depth 0.4 0.8 0.8 -Total Square Cm 1.32 1.2 0.49 -Date of Last Picture (Recall this 11/03/24 11/11/24 field) -Photo Taken Yes -Epithelialization None Present -Tunneling No -Undermining/Tunneling -Maximum Distance #2 (cm) 0.9 -Circular Undermining Yes -Exudate Amt Medium Medium Medium -Exudate Type Serosanguineous Serosanguineous Serosanguineous -Wound Margin Distinct, Thickened Distinct, Outline Outline Attached Attached -Granulation Amt Large (67-100%) Large (67-100%) Large (67-100%) -Granulation Quality Red Red Red -Slough/Fibrin Yes -Necrosis Amt Small (1-33%) None Present (0 %) -Necrotic Tissue Type Adherent Slough -Structure Exposed Bone N/A -Texture (Livier-wound Skin Appearance) Assessed Assessed Scarring -Moisture (Livier-wound Skin Appearance) Assessed Assessed Maceration -Color (Livier-wound Skin Appearance) Assessed, Assessed, No Abnormality Erythema Erythema -Temperature (Livier-wound Skin No Abnormality No Abnormality No Abnormality Appearance) (Pt Warm) (Pt Warm) (Pt Warm) -Tenderness on Palpation (Livier-wound No No No Skin Appearance) -Ulcer Cleansing Rinsed/ Soap and Water Soap and Water Irrigated with Saline -Foul Odor after Cleansing No No No -Anesthetic Used 5% Lidocaine 5% Lidocaine Gel Gel Lower Limb Edema Present 11/24/24 12/01/24 09:35 13:39 Wound Center Nurse 1 #1 lt lat foot -Combined with other wound No -Current Size (cm) - Length 1.5 0.9 -Current Size (cm) - Width 0.8 1.0 -Current Size (cm) - Depth 0.5 1.2 -Total Square Cm 1.20 0.90 -Date of Last Picture (Recall this field) -Photo Taken Yes No -Epithelialization Small 1-33% Small 1-33% -Tunneling No No -Undermining/Tunneling No No -Maximum Distance #2 (cm) -Circular Undermining No No -Exudate Amt Medium -Exudate Type Serosanguineous Sanguineous -Wound Margin Distinct, Distinct, Outline Outline Attached Attached -Granulation Amt Large (67-100%) Medium (34-66%) -Granulation Quality Red Red -Slough/Fibrin No Yes -Necrosis Amt Small (1-33%) -Necrotic Tissue Type Adherent Slough -Structure Exposed Bone -Texture (Livier-wound Skin Appearance) Assessed Assessed -Moisture (Livier-wound Skin Appearance) No Abnormality, Assessed Dry/Scaly -Color (Livier-wound Skin Appearance) Assessed Assessed -Temperature (Livier-wound Skin No Abnormality No Abnormality Appearance) (Pt Warm) (Pt Warm) -Tenderness on Palpation (Livier-wound No No Skin Appearance) -Ulcer Cleansing Rinsed/ Soap and Water Irrigated with Saline -Foul Odor after Cleansing No No -Anesthetic Used 5% Lidocaine Gel Lower Limb Edema Present NA WC - Nurse 2 - General Ulcer CM Notes Start: 11/03/24 13:22 Freq: Status: Active Protocol: Activity Type Activity Date Activity User E-sign Co-sign Detail Recorded Client Recorded Date Recorded By Document 11/03/24 13:39 [id number] 11/03/24 13:48 Document 11/11/24 14:29 [id number] 11/11/24 14:46 Document 11/17/24 14:28 [id number] 11/17/24 14:30 Document 11/24/24 09:38 [id number] 11/24/24 09:39 Document 12/01/24 14:00 [id number] 12/01/24 14:06 11/03/24 11/11/24 11/17/24 13:39 14:29 14:28 Wound Center Nurse 2 #1 lt lat foot -Time 13:40 14:29 14:28 -Correct Patient Yes Yes Yes -Correct Side, Site, Position Yes Yes Yes -Correct Procedure Yes Yes Yes -Procedure Performed Yes Yes Yes -Type of Procedure Debridement Debridement Debridement -Clinical Debridement Bone Muscle / Fascia Bone -Tissue Removed Non-viable Muscle Non-viable tissue tissue -Post Debridement (cm) - Length 0.9 1.1 1.0 -Post Debridement (cm) - Width 1.3 1.0 1.0 -Post Debridement (cm) - Depth 0.8 0.8 1.5 -Total Square (Post) (cm) 1.17 1.10 1.00 -Area of Debridement (cm) - Length 0.9 1.1 1.0 -Area of Debridement (cm) - Width 1.3 1.0 1.0 -Total Square (Area) (cm) 1.17 1.10 1.00 -Tunneling No No No -Undermining/Tunneling No No No -Circular Undermining No No No -Wound/Ulcer Outcome Not Healed Not Healed Not Healed -Ulcer Cleansing Rinsed/ Rinsed/ Rinsed/ Irrigated with Irrigated with Irrigated with Saline Saline Saline -Foul Odor after Cleansing No No No -Bioengineered Tissue No Yes No -Type of Bioengineered Tissue Epifix 18mm Disc -Expiration Date 07/03/29 -Product Lot Number [id number] -Percent Used 100 -Lot number of Saline Used [id number] -Bleeding Controlled with Pressure, Pressure Pressure Surgifoam ? x 2 3 (sm) -Surgifoam (07/06 x 2 07/10) Small 1 -Treatment Response Procedure Procedure Procedure Tolerated Well Tolerated Well Tolerated Well -Offloading Yes No Yes -Type of Offloading Surgical Shoe Surgical Shoe -Assistive Device(s) Wheelchair -Debridement - Muscle / Fascia, 1st Yes 20sq cm -Debridement - Bone, 1st 20sq cm Yes Yes -Apply Skin Sub - 1st 25 sq cm - Feet -Epicord Application 1-4 (per sq cm) Pain Scale: 0-10 Numeric Is Patient Pain Free? Yes Yes Yes 11/24/24 12/01/24 09:38 14:00 Wound Center Nurse 2 #1 lt lat foot -Time 09:38 14:00 -Correct Patient Yes Yes -Correct Side, Site, Position Yes Yes -Correct Procedure Yes Yes -Procedure Performed Yes Yes -Type of Procedure Debridement Debridement -Clinical Debridement Bone Bone -Tissue Removed Non-viable Non-viable tissue tissue -Post Debridement (cm) - Length 1.2 1 -Post Debridement (cm) - Width 1.2 1.4 -Post Debridement (cm) - Depth 0.5 0.8 -Total Square (Post) (cm) 1.44 1.4 -Area of Debridement (cm) - Length 1.2 1.0 -Area of Debridement (cm) - Width 1.2 1.4 -Total Square (Area) (cm) 1.44 1.40 -Tunneling No No -Undermining/Tunneling No No -Circular Undermining No No -Wound/Ulcer Outcome Not Healed Not Healed -Ulcer Cleansing Rinsed/ Rinsed/ Irrigated with Irrigated with Saline Saline -Foul Odor after Cleansing No No -Bioengineered Tissue No Yes -Type of Bioengineered Tissue Epifix 18mm Disc -Expiration Date 03/05/29 -Product Lot Number [id number] -Percent Used 100 -Lot number of Saline Used [id number] -Bleeding Controlled with Pressure Pressure -Surgifoam (34 x 2 38) Small -Treatment Response Procedure Procedure Tolerated Well Tolerated Well -Offloading Yes Yes -Type of Offloading Surgical Shoe Surgical Shoe -Assistive Device(s) -Debridement - Muscle / Fascia, 1st 20sq cm -Debridement - Bone, 1st 20sq cm Yes No -Apply Skin Sub - 1st 25 sq cm - Feet 1 -Epicord Application 1-4 (per sq cm) 6 Pain Scale: 0-10 Numeric Is Patient Pain Free? Yes Yes - Nurse 3 - General Ulcer D/C NN Start: 11/03/24 13:22 Freq: Status: Active Protocol: Activity Type Activity Date Activity User E-sign Co-sign Detail Recorded Client Recorded Date Recorded By Document 11/03/24 14:06 KW [id number] 11/03/24 14:06 KW Document 11/11/24 14:56 DL [id number] 11/11/24 14:57 DL Document 11/17/24 14:50 BMF [id number] 11/17/24 14:52 BMF Document 11/24/24 09:56 KW [id number] 11/24/24 09:57 KW 11/03/24 11/11/24 11/17/24 14:06 14:56 14:50 Wound Care Center Nurse 3 #1 lt lat foot -Ulcer Cleansing Rinsed/ Rinsed/ Irrigated with Irrigated with Saline Saline -Foul Odor after Cleansing No No -Primary Dressing Applied Silicone Border Foam 4x4, Silvercel -Other Dressing Epifix betadine soaked gauze -Primary Dressing Covered/Secured with Dry Gauze & Dry Gauze & Roll Gauze Roll Gauze, Secured with Tape -Silicone Border Foam 4x4 1 -Silvercel 1 LLE -Compression Wrap Tobi Wrap -Other tobi to secure Treatment Response Procedure Procedure Tolerated Well Tolerated Well Pain Scale: 0-10 Numeric Is Patient Pain Free? Yes Yes Yes - Visit Discharge Discharge Condition Stable Stable Stable Ambulatory Status Wheelchair Wheelchair Wheelchair Transportation Private Auto Private Auto Private Auto Accompanied by Medication Reconcilliation completed & No provided to patient/care provider Clinical Summary of Care Provided Yes 11/24/24 09:56 Wound Care Center Nurse 3 #1 lt lat foot -Ulcer Cleansing -Foul Odor after Cleansing -Primary Dressing Applied -Other Dressing betadine gauze -Primary Dressing Covered/Secured with Dry Gauze & Roll Gauze, Secured with Tape -Silicone Border Foam 4x4 -Silvercel LLE -Compression Wrap Tobi Wrap -Other pt own to secure dressing Treatment Response Pain Scale: 0-10 Numeric Is Patient Pain Free? Yes - Visit Discharge Discharge Condition Stable Ambulatory Status Wheelchair Transportation Private Auto Accompanied by Medication Reconcilliation completed & No provided to patient/care provider Clinical Summary of Care Provided Yes Assessment/Plan Assessment/Plan (1) Cellulitis of left lower limb: CODE(S): L03.116 - Cellulitis of left lower limb PLAN: Patient was examined and evaluated. All findings were discussed with the patient. All questions were answered to the patient's satisfaction. Excisional debridement down to including subcutaneous tissue, muscle, fascia and bone with a number 5 mm dermal curette to the lateral fifth metatarsal head full-thickness wound left foot done without incident. Postdebridement measurement was 0.9 x 1.3 x 0.6 cm. Postoperative measurement is 1.0 x 1.4 x 0.8 cm. Epi cord 2.0 x 3.0 cm graft was applied and 100% application to the full- thickness wound to the lateral left foot. First application. There was no concern for infection. Bolster dressing was applied followed by dry sterile dressing and compression wrap. Patient is doing well off his oral antibiotics we will continue another course of 2 weeks of ciprofloxacin 750 mg twice daily. Follow-up at the wound care center with Dr. Shaikh in 1 week. (2) Non-pressure chronic ulcer of other part of left foot with necrosis of bone: CODE(S): L97.524 - Non-pressure chronic ulcer of other part of left foot with necrosis of bone (3) Other hereditary and idiopathic neuropathies: CODE(S): G60.8 - Other hereditary and idiopathic neuropathies
== END 2024-12-02 23:59 | disposition home or self-care (01) ==
LOC: WC 13:15
PROVIDERS: PCP Family Medicine; Referring Provider Family Medicine; Visit Provider Podiatrist Foot & Ankle Surgery
DX: L97.522 Non-pressure chronic ulcer of other part of left foot with fat layer exposed (principal); G82.50 Quadriplegia, unspecified; L97.524 Non-pressure chronic ulcer of other part of left foot with necrosis of bone; G60.9 Hereditary and idiopathic neuropathy, unspecified; I10 Essential (primary) hypertension; Z79.899 Other long term (current) drug therapy; L03.116 Cellulitis of left lower limb
CPT/HCPCS: 11043; 11044; 15275; 87070; 87075; 87077; 87186; 87205; Q4187

== ENCOUNTER 2024-12-29 09:00 | Outpatient (RCR) | payer MEDICAID, SELFPAY ==
--- NOTE | 2024-12-09 11:10 | PN.PCM_ITS ---
History of Present Illness Date of Service: 12/08/24 Chief Complaint: Full-thickness wound, left foot History of Wound: Patient quadriplegic follows up for left plantar fifth MPJ ulceration which started as a pressure ulceration. Patient denies constitutional symptoms pain or any changes since previous visit. Progress of Wound: Patient has a stable full-thickness wound down to bone to the lateral fifth metatarsal head left foot. Subjective Subjective Patient is a 44 years old male presenting to wound care center today follow-up evaluation of full-thickness wound down to bone to the lateral aspect of fifth metatarsal head with amnion skin graft substitute. Patient is left dressing clean dry and intact. He is nonambulatory and quadriplegic due to trauma. Patient has taken his antibiotics as prescribed. Erythema has improved. He denies any new onset of trauma. Denies constitutional symptoms. No other pedal complaints at this time. Objective Data Objective Data Vital Signs: Vital Signs Temp Pulse Resp BP O2 Del Method 97.3 F L 49 L 16 124/67 H Room Air 12/01/24 13:39 12/01/24 13:39 12/01/24 13:39 12/01/24 13:39 12/01/24 13:39 Oxygen Delivery Method Room Air Lab / Micro Data Micro: Microbiology 11/03/24 13:47 Ulcer, Decubitus - Left Foot Gram Stain - Final 11/03/24 13:47 Ulcer, Decubitus - Left Foot Wound Culture - Final Staphylococcus caprae Proteus mirabilis 11/03/24 13:47 Ulcer, Decubitus - Left Foot Anaerobic Culture - Final No anaerobic bacteria isolated. Physical Exam Narrative Vascular: DP and PT pulses are palpable to left lower extremity. CFT is brisk. No erythema. Skin temperature is warm to cool from proximal ankle to distal digits to the left extremity. Neurological: Patient is quadriplegic and does not have light touch and does not have protective sensation. Dermatological: Evidence of full-thickness wound to the lateral aspect of the fifth metatarsal head measuring 1.0 x 1.0 x 1.2 cm. Positive probe to bone. Excisional debridement down to including subcutaneous tissue, muscle, fascia and bone with a number 5 mm dermal curette to the lateral fifth metatarsal head full-thickness wound left foot done without incident. Postdebridement measurement was 0.9 x 0.8 x 0.5 cm. Postoperative measurement is 1.0 x 1.0 x 1.2 cm. Epi cord 2.0 x 3.0 cm graft was applied and 100% application to the full- thickness wound to the lateral left foot. second application. There was no concern for infection. Bolster dressing was applied followed by dry sterile dressing and compression wrap. Musculoskeletal:No pain to palpation of the full-thickness wound. No pain with calf pressure. Debridement Note Debridement Note Debridement Free Text: Excisional debridement down to including subcutaneous tissue, muscle, fascia and bone with a number 5 mm dermal curette to the lateral fifth metatarsal head full-thickness wound left foot done without incident. Postdebridement measurement was 0.9 x 0.8 x 0.5 cm. Postoperative measurement is 1.0 x 1.0 x 1.2 cm. Epi cord 2.0 x 3.0 cm graft was applied and 100% application to the full- thickness wound to the lateral left foot. second application. There was no concern for infection. Bolster dressing was applied followed by dry sterile dressing and compression wrap. Post-Debridement Measurements and Additional Note: Post-Debridement Measurements/Treatment WC - Nurse 2 - General Ulcer CM Notes Start: 12/08/24 14:40 Freq: Status: Active Protocol: Activity Type Activity Date Activity User E-sign Co-sign Detail Recorded Client Recorded Date Recorded By Document 12/08/24 14:40 [id number] 12/08/24 14:47 12/08/24 14:40 Wound Center Nurse 2 #1 lt lat foot -Time 14:40 -Correct Patient Yes -Correct Side, Site, Position Yes -Correct Procedure Yes -Procedure Performed Yes -Type of Procedure Debridement -Clinical Debridement Subcutaneous -Tissue Removed Subcutaneous -Post Debridement (cm) - Length 1.0 -Post Debridement (cm) - Width 1.0 -Post Debridement (cm) - Depth 1.2 -Total Square (Post) (cm) 1.00 -Area of Debridement (cm) - Length 1.0 -Area of Debridement (cm) - Width 1.0 -Total Square (Area) (cm) 1.00 -Tunneling No -Undermining/Tunneling No -Circular Undermining No -Wound/Ulcer Outcome Not Healed -Ulcer Cleansing Rinsed/ Irrigated with Saline -Foul Odor after Cleansing No -Bioengineered Tissue Yes -Type of Bioengineered Tissue Epicord -Expiration Date 03/05/29 -Product Lot Number [id number] -Percent Used 100 -Lot number of Saline Used [id number] -Bleeding Controlled with Pressure -Treatment Response Procedure Tolerated Well -Offloading No -Debridement - Subq, 1st 20sq cm Yes -Epicord Application 1-4 (per sq cm) 6 Pain Scale: 0-10 Numeric Is Patient Pain Free? Yes Assessment/Plan Assessment/Plan (1) Non-pressure chronic ulcer of other part of left foot with necrosis of bone: CODE(S): L97.524 - Non-pressure chronic ulcer of other part of left foot with necrosis of bone PLAN: Patient was examined and evaluated. All findings were discussed with the patient. All questions were answered to the patient's satisfaction. Excisional debridement down to including subcutaneous tissue, muscle, fascia and bone with a number 5 mm dermal curette to the lateral fifth metatarsal head full-thickness wound left foot done without incident. Postdebridement m easurement was 0.9 x 0.8 x 0.5 cm. Postoperative measurement is 1.0 x 1.0 x 1.2 cm. Epi cord 2.0 x 3.0 cm graft was applied and 100% application to the full- thickness wound to the lateral left foot. second application. There was no concern for infection. Bolster dressing was applied followed by dry sterile dressing and compression wrap. Patient will continue Abx until gone. Follow-up at the wound care center with Dr. Shaikh in 1 week. (2) Other hereditary and idiopathic neuropathies: CODE(S): G60.8 - Other hereditary and idiopathic neuropathies
[2024-12-15 14:43] VITALS: BP 118/75; PULSE 64; RESP 16; TEMP 37
--- NOTE | 2024-12-15 19:39 | PCM.WC.PN ---
History of Present Illness Date of Service: 12/15/24 Chief Complaint: Full-thickness wound, left foot History of Wound: Patient quadriplegic follows up for left plantar fifth MPJ ulceration which started as a pressure ulceration. Patient denies constitutional symptoms pain or any changes since previous visit. Progress of Wound: Patient has a stable full-thickness wound down to bone to the lateral fifth metatarsal head left foot. Subjective Subjective Patient is a 45-year-old quadriplegic male presenting to clinic today for follow-up evaluation of full-thickness wound down to bone to the lateral aspect of the subfifth metatarsal head left foot with amnion skin graft substitute. He is left the skin graft clean dry and intact. He denies any strikethrough or further breakdown. He is taking antibiotics as prescribed. He denies trauma. Denies constitutional symptoms. No other pedal complaints at this time. Objective Data Objective Data Vital Signs: Vital Signs Temp Pulse Resp BP O2 Del Method 98.6 F 64 16 118/75 Room Air 12/15/24 14:43 12/15/24 14:43 12/15/24 14:43 12/15/24 14:43 12/15/24 14:43 Oxygen Delivery Method Room Air Lab / Micro Data Micro: Microbiology 11/03/24 13:47 Ulcer, Decubitus - Left Foot Gram Stain - Final 11/03/24 13:47 Ulcer, Decubitus - Left Foot Wound Culture - Final Staphylococcus caprae Proteus mirabilis 11/03/24 13:47 Ulcer, Decubitus - Left Foot Anaerobic Culture - Final No anaerobic bacteria isolated. Physical Exam Narrative Vascular: DP and PT pulses are palpable to left lower extremity. CFT is brisk. No erythema. Skin temperature is warm to cool from proximal ankle to distal digits to the left extremity. Neurological: Patient is quadriplegic and does not have light touch and does not have protective sensation. Dermatological: Evidence of full-thickness wound to the lateral aspect of the fifth metatarsal head measuring 1.0 x 1.0 x 1.0 cm. Positive probe to bone. Excisional debridement down to including subcutaneous tissue, muscle, fascia and bone with a number 5 mm dermal curette to the lateral fifth metatarsal head full-thickness wound left foot done without incident. Postdebridement measurement was 0.9 x 0.9 x 0.7 cm. Postoperative measurement is 1.0 x 1.0 x 1.0 cm. Epi cord 2.0 x 3.0 cm graft was applied and 100% application to the full-thickness wound to the lateral left foot. Third application. There was no concern for infection. Bolster dressing was applied followed by dry sterile dressing and compression wrap. Musculoskeletal:No pain to palpation of the full-thickness wound. No pain with calf pressure. Debridement Note Debridement Note Debridement Free Text: Excisional debridement down to including subcutaneous tissue, muscle, fascia and bone with a number 5 mm dermal curette to the lateral fifth metatarsal head full-thickness wound left foot done without incident. Postdebridement measurement was 0.9 x 0.9 x 0.7 cm. Postoperative measurement is 1.0 x 1.0 x 1.0 cm. Epi cord 2.0 x 3.0 cm graft was applied and 100% application to the full-thickness wound to the lateral left foot. Third application. There was no concern for infection. Bolster dressing was applied followed by dry sterile dressing and compression wrap. Post-Debridement Measurements and Additional Note: Post-Debridement Measurements/Treatment - Nurse 1 - General Ulcer Assessment Start: 12/08/24 14:40 Freq: Status: Active Protocol: RUDI.[email or web address] Activity Type Activity Date Activity User E-sign Co-sign Detail Recorded Client Recorded Date Recorded By Document 12/15/24 14:43 [id number] 12/15/24 14:49 12/15/24 14:43 - Today's Visit Information Type of service Follow-up Visit (Physician/DISPLAY DESIGNER OUTSIDE ) Arrival Mode Wheelchair Transfer Assistance None Accompanied by and aunt Patient Identification Verified (Name & Yes ) Patient Requires Transmission-Based No Precautions Vital Signs Temperature (97.8 F-99.1 F) 98.6 F Temperature Source Temporal Pulse Rate (60-100) 64 Pulse Location Monitor Respiratory Rate (12-18) 16 Respiratory rate source Observation Oxygen Delivery Method Room Air Blood Pressure (90/60-120/80) 118/75 Blood Pressure Mean (mm Hg) 89 Source Monitor Position Sitting Blood Pressure Location Left Arm History Since Last Visit- (Skip if this is Patient's initial visit) Have you changed medications since your No last visit? Any new allergies or adverse reactions No Had a fall/change in ADL's that may No increase risk of falls Signs or symptoms of abuse and/or No neglect since last visit Have you been in the hospital since your No last visit? Has dressing in place as prescribed Yes Has compression in place as prescribed Yes Has offloadiing in place as prescribed N/A Experienced any changes in pain level or No management Left Footwear Surgical Shoe with pressure relief insole Right Footwear Regular Shoe Pain Scale: 0-10 Numeric Is Patient Pain Free? Yes - Nurse 1 - General Ulcer Measurement Start: 12/08/24 14:40 Freq: Status: Active Protocol: Activity Type Activity Date Activity User E-sign Co-sign Detail Recorded Client Recorded Date Recorded By Document 12/15/24 14:43 [id number] 12/15/24 14:49 12/15/24 14:43 Wound Center Nurse 1 #1 lt lat foot -Combined with other wound No -Current Size (cm) - Length 1 -Current Size (cm) - Width 1.1 -Current Size (cm) - Depth 1.3 -Total Square Cm 1.1 -Tunneling No -Undermining/Tunneling No -Circular Undermining No -Exudate Amt Medium -Exudate Type Serosanguineous -Wound Margin Distinct, Outline Attached -Granulation Amt Small (1-33%) -Granulation Quality Red -Slough/Fibrin Yes -Necrosis Amt Large (67-100%) -Necrotic Tissue Type Eschar -Texture (Livier-wound Skin Appearance) Assessed, Scarring -Moisture (Livier-wound Skin Appearance) Assessed -Color (Livier-wound Skin Appearance) Assessed, Erythema -Temperature (Livier-wound Skin No Abnormality Appearance) (Pt Warm) -Tenderness on Palpation (Livier-wound No Skin Appearance) -Ulcer Cleansing Rinsed/ Irrigated with Saline -Foul Odor after Cleansing No -Anesthetic Used 5% Lidocaine Gel - Nurse 2 - General Ulcer CM Notes Start: 12/08/24 14:40 Freq: Status: Active Protocol: Activity Type Activity Date Activity User E-sign Co-sign Detail Recorded Client Recorded Date Recorded By Document 12/08/24 14:40 [id number] 12/08/24 14:47 Document 12/15/24 14:56 [id number] 12/15/24 15:00 12/08/24 12/15/24 14:40 14:56 Wound Center Nurse 2 #1 lt lat foot -Time 14:40 14:58 -Correct Patient Yes Yes -Correct Side, Site, Position Yes Yes -Correct Procedure Yes Yes -Procedure Performed Yes Yes -Type of Procedure Debridement Debridement -Clinical Debridement Subcutaneous Subcutaneous -Tissue Removed Subcutaneous Subcutaneous -Post Debridement (cm) - Length 1.0 1 -Post Debridement (cm) - Width 1.0 1 -Post Debridement (cm) - Depth 1.2 1 -Total Square (Post) (cm) 1.00 1 -Area of Debridement (cm) - Length 1.0 1 -Area of Debridement (cm) - Width 1.0 1 -Total Square (Area) (cm) 1.00 1 -Tunneling No No -Undermining/Tunneling No No -Circular Undermining No No -Wound/Ulcer Outcome Not Healed Not Healed -Ulcer Cleansing Rinsed/ Rinsed/ Irrigated with Irrigated with Saline Saline -Foul Odor after Cleansing No No -Bioengineered Tissue Yes Yes -Type of Bioengineered Tissue Epicord Epicord -Expiration Date 03/05/29 08/03/29 -Product Lot Number [id number] -Percent Used 100 100 -Lot number of Saline Used [id number] -Bleeding Controlled with Pressure Pressure -Treatment Response Procedure Procedure Tolerated Well Tolerated Well -Offloading No Yes -Type of Offloading Surgical Shoe -Debridement - Subq, 1st 20sq cm Yes No -Apply Skin Sub - 1st 25 sq cm - Feet 1 -Epicord Application 1-4 (per sq cm) 6 6 Pain Scale: 0-10 Numeric Is Patient Pain Free? Yes Yes - Nurse 3 - General Ulcer D/C NN Start: 12/08/24 14:40 Freq: Status: Active Protocol: Activity Type Activity Date Activity User E-sign Co-sign Detail Recorded Client Recorded Date Recorded By Document 12/15/24 15:06 [id number] 12/15/24 15:07 12/15/24 15:06 Wound Care Center Nurse 3 #1 lt lat foot -Ulcer Cleansing Not Cleansed -Foul Odor after Cleansing No -Primary Dressing Applied Silicone Border Foam 4x4 -Primary Dressing Covered/Secured with Dry Gauze & Roll Gauze, Secured with Tape -Silicone Border Foam 4x4 1 LLE -Compression Wrap Tobi Wrap Pain Scale: 0-10 Numeric Is Patient Pain Free? Yes WC - Visit Discharge Discharge Condition Stable Ambulatory Status Wheelchair Transportation Private Auto Assessment/Plan Assessment/Plan (1) Non-pressure chronic ulcer of other part of left foot with necrosis of bone: CODE(S): L97.524 - Non-pressure chronic ulcer of other part of left foot with necrosis of bone PLAN: Patient was examined and evaluated. All findings were discussed with the patient. All questions were answered to the patient's satisfaction. Excisional debridement down to including subcutaneous tissue, muscle, fascia and bone with a number 5 mm dermal curette to the lateral fifth metatarsal head full-thickness wound left foot done without incident. Postdebridement measurement was 0.9 x 0.9 x 0.7 cm. Postoperative measurement is 1.0 x 1.0 x 1.0 cm. Epi cord 2.0 x 3.0 cm graft was applied and 100% application to the full-thickness wound to the lateral left foot. Third application. There was no concern for infection. Bolster dressing was applied followed by dry sterile dressing and compression wrap. Patient will continue Abx until gone. Follow-up at the wound care center with Dr. Shaikh in 1 week. (2) Other hereditary and idiopathic neuropathies: CODE(S): G60.8 - Other hereditary and idiopathic neuropathies
[2024-12-22 15:06] VITALS: BP 158/100; PULSE 51; RESP 18; TEMP 36.8
--- NOTE | 2024-12-23 16:13 | PCM.WC.PN ---
History of Present Illness Date of Service: 12/23/24 Chief Complaint: Full-thickness wound, left foot History of Wound: Patient quadriplegic follows up for left plantar fifth MPJ ulceration which started as a pressure ulceration. Patient denies constitutional symptoms pain or any changes since previous visit. Progress of Wound: Patient has a stable full-thickness wound down to bone to the lateral fifth metatarsal head left foot. Subjective Subjective Patient is a 44-year-old quadriplegic male presenting to wound care center today follow-up evaluation of full-thickness wound to lateral aspect of the fifth metatarsal. He has left the dressing clean dry and intact. Patient is nonambulatory. He denies any pain or trauma. Denies constitutional symptoms. No other pedal complaints at this time. Objective Data Objective Data Vital Signs: Vital Signs Temp Pulse Resp BP O2 Del Method 98.3 F 51 L 18 158/100 H Room Air 12/22/24 15:06 12/22/24 15:06 12/22/24 15:06 12/22/24 15:06 12/15/24 14:43 Oxygen Delivery Method Room Air Physical Exam Narrative Vascular: DP and PT pulses are palpable to left lower extremity. CFT is brisk. No erythema. Skin temperature is warm to cool from proximal ankle to distal digits to the left extremity. Neurological: Patient is quadriplegic and does not have light touch and does not have protective sensation. Dermatological: Evidence of full-thickness wound to the lateral aspect of the fifth metatarsal head measuring 0.9 x 1.0 x 1.0 cm. Positive probe to bone. Excisional debridement down to including subcutaneous tissue, muscle, fascia and bone with a number 5 mm dermal curette to the lateral fifth metatarsal head full-thickness wound left foot done without incident. Postdebridement measurement was 0.8 x 0.9 x 0.6 cm. Postdebridement measurement is 0.9 x 1.0 x 1.0 cm. Epi cord 2.0 x 3.0 cm graft was applied and 100% application to the full-thickness wound to the lateral left foot. Fourth application. There was no concern for infection. Bolster dressing was applied followed by dry sterile dressing and compression wrap. Musculoskeletal:No pain to palpation of the full-thickness wound. No pain with calf pressure. Debridement Note Debridement Note Debridement Free Text: Excisional debridement down to including subcutaneous tissue, muscle, fascia and bone with a number 5 mm dermal curette to the lateral fifth metatarsal head full-thickness wound left foot done without incident. Postdebridement measurement was 0.8 x 0.9 x 0.6 cm. Postdebridement measurement is 0.9 x 1.0 x 1.0 cm. Epi cord 2.0 x 3.0 cm graft was applied and 100% application to the full-thickness wound to the lateral left foot. Fourth application. There was no concern for infection. Bolster dressing was applied followed by dry sterile dressing and compression wrap. Post-Debridement Measurements and Additional Note: Post-Debridement Measurements/Treatment - Nurse 1 - General Ulcer Assessment Start: 12/08/24 14:40 Freq: Status: Active Protocol: DANIS Activity Type Activity Date Activity User E-sign Co-sign Detail Recorded Client Recorded Date Recorded By Document 12/15/24 14:43 GM [id number] 12/15/24 14:49 GM Document 12/22/24 15:06 DL [id number] 12/22/24 15:14 DL 12/15/24 12/22/24 14:43 15:06 - Today's Visit Information Type of service Follow-up Visit Follow-up Visit (Physician/AUDIO/VIDEO ENGINEER (Physician/AUDIO/VIDEO ENGINEER ) ) Arrival Mode Wheelchair Wheelchair Transfer Assistance None None Accompanied by and aunt Patient Identification Verified (Name & Yes Yes ) Patient Requires Transmission-Based No No Precautions Vital Signs Temperature (97.8 F-99.1 F) 98.6 F 98.3 F Temperature Source Temporal Temporal Pulse Rate (60-100) 64 51 L Pulse Location Monitor Monitor Respiratory Rate (12-18) 16 18 Respiratory rate source Observation Observation Oxygen Delivery Method Room Air Blood Pressure (90/60-120/80) 118/75 158/100 H Blood Pressure Mean (mm Hg) 89 119 Source Monitor Monitor Position Sitting Blood Pressure Location Left Arm History Since Last Visit- (Skip if this is Patient's initial visit) Have you changed medications since your No No last visit? Any new allergies or adverse reactions No No Had a fall/change in ADL's that may No No increase risk of falls Signs or symptoms of abuse and/or No No neglect since last visit Have you been in the hospital since your No No last visit? Has dressing in place as prescribed Yes Yes Has compression in place as prescribed Yes No Has offloadiing in place as prescribed N/A N/A Experienced any changes in pain level or No No management Left Footwear Surgical Shoe with pressure relief insole Right Footwear Regular Shoe Pain Scale: 0-10 Numeric Is Patient Pain Free? Yes Yes WC - Nurse 1 - General Ulcer Measurement Start: 12/08/24 14:40 Freq: Status: Active Protocol: Activity Type Activity Date Activity User E-sign Co-sign Detail Recorded Client Recorded Date Recorded By Document 12/15/24 14:43 GM [id number] 12/15/24 14:49 GM Document 12/22/24 15:06 DL [id number] 12/22/24 15:14 DL 12/15/24 12/22/24 14:43 15:06 Wound Center Nurse 1 #1 lt lat foot -Combined with other wound No -Current Size (cm) - Length 1 1 -Current Size (cm) - Width 1.1 0.8 -Current Size (cm) - Depth 1.3 1.2 -Total Square Cm 1.1 0.8 -Tunneling No -Undermining/Tunneling No -Circular Undermining No -Exudate Amt Medium Small -Exudate Type Serosanguineous Sanguineous -Wound Margin Distinct, Distinct, Outline Outline Attached Attached -Granulation Amt Small (1-33%) Medium (34-66%) -Granulation Quality Red Red -Slough/Fibrin Yes -Necrosis Amt Large (67-100%) Small (1-33%) -Necrotic Tissue Type Eschar Adherent Slough -Structure Exposed N/A -Texture (Livier-wound Skin Appearance) Assessed, Localized Edema Scarring ,Scarring -Moisture (Livier-wound Skin Appearance) Assessed Maceration -Color (Livier-wound Skin Appearance) Assessed, No Abnormality Erythema -Temperature (Livier-wound Skin No Abnormality No Abnormality Appearance) (Pt Warm) (Pt Warm) -Tenderness on Palpation (Livier-wound No Skin Appearance) -Ulcer Cleansing Rinsed/ Soap and Water Irrigated with Saline -Foul Odor after Cleansing No No -Anesthetic Used 5% Lidocaine Gel WC - Nurse 2 - General Ulcer CM Notes Start: 12/08/24 14:40 Freq: Status: Active Protocol: Activity Type Activity Date Activity User E-sign Co-sign Detail Recorded Client Recorded Date Recorded By Document 12/08/24 14:40 GM [id number] 12/08/24 14:47 GM Document 12/15/24 14:56 JF [id number] 12/15/24 15:00 JF Document 12/22/24 15:57 DS [id number] 12/22/24 16:04 DS Edit Result 12/22/24 15:57 DS (1) [id number] 12/22/24 16:05 DS (1) #1 lt lat foot - Clinical Debridement Subcutaneous => Muscle / Fascia - Tissue Removed Subcutaneous => Muscle,Fascia - Debridement - Subq, 1st 20sq cm No => - Debridement - Muscle / Fascia, 1st => No 20sq cm 12/08/24 12/15/24 12/22/24 14:40 14:56 15:57 Wound Center Nurse 2 #1 lt lat foot -Time 14:40 14:58 15:57 -Correct Patient Yes Yes Yes -Correct Side, Site, Position Yes Yes Yes -Correct Procedure Yes Yes Yes -Procedure Performed Yes Yes Yes -Type of Procedure Debridement Debridement Debridement -Clinical Debridement Subcutaneous Subcutaneous Muscle / Fascia -Tissue Removed Subcutaneous Subcutaneous Muscle,Fascia -Post Debridement (cm) - Length 1.0 1 0.9 -Post Debridement (cm) - Width 1.0 1 1.0 -Post Debridement (cm) - Depth 1.2 1 1.0 -Total Square (Post) (cm) 1.00 1 0.90 -Area of Debridement (cm) - Length 1.0 1 0.9 -Area of Debridement (cm) - Width 1.0 1 1.0 -Total Square (Area) (cm) 1.00 1 0.90 -Tunneling No No No -Undermining/Tunneling No No No -Circular Undermining No No No -Wound/Ulcer Outcome Not Healed Not Healed Not Healed -Ulcer Cleansing Rinsed/ Rinsed/ Rinsed/ Irrigated with Irrigated with Irrigated with Saline Saline Saline -Foul Odor after Cleansing No No No -Bioengineered Tissue Yes Yes Yes -Type of Bioengineered Tissue Epicord Epicord Epicord -Expiration Date 03/05/29 08/03/29 08/03/29 -Product Lot Number [id number] -Percent Used 100 100 100 -Lot number of Saline Used [id number] -Bleeding Controlled with Pressure Pressure Pressure -Treatment Response Procedure Procedure Procedure Tolerated Well Tolerated Well Tolerated Well -Offloading No Yes -Type of Offloading Surgical Shoe -Debridement - Subq, 1st 20sq cm Yes No -Debridement - Muscle / Fascia, 1st No 20sq cm -Apply Skin Sub - 1st 25 sq cm - Feet 1 1 -Epicord Application 1-4 (per sq cm) 6 6 6 Pain Scale: 0-10 Numeric Is Patient Pain Free? Yes Yes Yes - Nurse 3 - General Ulcer D/C NN Start: 12/08/24 14:40 Freq: Status: Active Protocol: Activity Type Activity Date Activity User E-sign Co-sign Detail Recorded Client Recorded Date Recorded By Document 12/15/24 15:06 [id number] 12/15/24 15:07 Document 12/22/24 16:23 DL [id number] 12/22/24 16:24 DL 12/15/24 12/22/24 15:06 16:23 Wound Care Center Nurse 3 #1 lt lat foot -Ulcer Cleansing Not Cleansed -Foul Odor after Cleansing No No -Primary Dressing Applied Silicone Border Foam 4x4 -Other Dressing Epicord -Primary Dressing Covered/Secured with Dry Gauze & Dry Gauze & Roll Gauze, Roll Gauze Secured with Tape -Other Covering betadine -Silicone Border Foam 4x4 1 LLE -Compression Wrap Tobi Wrap Treatment Response Procedure Tolerated Well Pain Scale: 0-10 Numeric Is Patient Pain Free? Yes Yes - Visit Discharge Discharge Condition Stable Stable Ambulatory Status Wheelchair Wheelchair Transportation Private Auto Private Auto Assessment/Plan Assessment/Plan (1) Non-pressure chronic ulcer of other part of left foot with necrosis of bone: CODE(S): L97.524 - Non-pressure chronic ulcer of other part of left foot with necrosis of bone PLAN: Patient was examined and evaluated. All findings were discussed with the patient. All questions were answered to the patient's satisfaction. Excisional debridement down to including subcutaneous tissue, muscle, fascia and bone with a number 5 mm dermal curette to the lateral fifth metatarsal head full-thickness wound left foot done without incident. Postdebridement measurement was 0.8 x 0.9 x 0.6 cm. Postdebridement measurement is 0.9 x 1.0 x 1.0 cm. Epi cord 2.0 x 3.0 cm graft was applied and 100% application to the full-thickness wound to the lateral left foot. Fourth application. There was no concern for infection. Bolster dressing was applied followed by dry sterile dressing and compression wrap. Patient will continue Abx until gone. Follow-up at the wound care center with Dr. Shaikh in 1 week. (2) Other hereditary and idiopathic neuropathies: CODE(S): G60.8 - Other hereditary and idiopathic neuropathies
[2024-12-29 09:18] VITALS: BP 122/72; PULSE 59; RESP 16; TEMP 36.3
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
--- NOTE | 2024-12-29 13:34 | WC ---
PHOTO- LEFT HALLUX 12/29/24
--- NOTE | 2024-12-29 13:41 | WC ---
PHOTO-LEFT LATERAL FOOT 12/29/24
== END 2025-01-02 23:59 | disposition home or self-care (01) ==
LOC: WC 09:00
PROVIDERS: PCP Family Medicine; Referring Provider Family Medicine; Visit Provider Podiatrist Foot & Ankle Surgery
DX: L97.522 Non-pressure chronic ulcer of other part of left foot with fat layer exposed (principal); G82.50 Quadriplegia, unspecified; L97.524 Non-pressure chronic ulcer of other part of left foot with necrosis of bone; G60.8 Other hereditary and idiopathic neuropathies
CPT/HCPCS: 11042; 15275; Q4187

== ENCOUNTER 2025-01-26 09:45 | Outpatient (RCR) | payer MEDICAID, SELFPAY ==
[2025-01-05 13:25] VITALS: BP 149/90; PULSE 57; RESP 18; TEMP 36.6
--- NOTE | 2025-01-05 14:40 | PCM.WC.PN ---
History of Present Illness Date of Service: 01/05/25 Chief Complaint: Full-thickness wound, left foot History of Wound: Patient quadriplegic follows up for left plantar fifth MPJ ulceration which started as a pressure ulceration. Patient denies constitutional symptoms pain or any changes since previous visit. Progress of Wound: Stable full-thickness wound to the lateral left foot with amnion skin graft substitute. Improving well. Subjective Subjective Patient is a 44-year-old quadriplegic male presenting to the wound care center for follow-up evaluation of full-thickness wound to the lateral left foot to the level of the fifth metatarsal head with amniotic skin graft substitute application. They have left the dressing clean dry and intact. He noticed improvement to the full-thickness wound secondary to graft application. He has no pain to the left foot. Denies trauma. Denies constitutional symptoms. No other pedal complaints at this time. Objective Data Objective Data Vital Signs: Vital Signs Temp Pulse Resp BP O2 Del Method 97.8 F 57 L 18 149/90 H Room Air 01/05/25 13:25 01/05/25 13:25 01/05/25 13:25 01/05/25 13:25 01/05/25 13:25 Oxygen Delivery Method Room Air Physical Exam Narrative Vascular: DP and PT pulses are palpable to left lower extremity. CFT is brisk. No erythema. Skin temperature is warm to cool from proximal ankle to distal digits to the left extremity. Neurological: Patient is quadriplegic and does not have light touch and does not have protective sensation. Dermatological: Evidence of full-thickness wound to the lateral aspect of the fifth metatarsal head measuring 1.0 x 0.7 x 0.7 cm. Negative probe to bone. Full-thickness wound to the distal left hallux is now healed. Excisional debridement down to including subcutaneous tissue, muscle, fascia and bone with a number 5 mm dermal curette to the lateral fifth metatarsal head full-thickness wound left foot done without incident. Postdebridement measurement was 0.8 x 0.8 x 0.5 cm. Postdebridement measurement is 1.0 x 0.7 x 0.7 cm. Epi cord 2.0 x 3.0 cm graft was applied and 100% application to the full-thickness wound to the lateral left foot. Sixth application. There was no concern for infection. Bolster dressing was applied followed by dry sterile dressing and compression wrap. Musculoskeletal:No pain to palpation of the full-thickness wound. No pain with calf pressure. Debridement Note Debridement Note Debridement Free Text: Excisional debridement down to including subcutaneous tissue, muscle, fascia and bone with a number 5 mm dermal curette to the lateral fifth metatarsal head full-thickness wound left foot done without incident. Postdebridement measurement was 0.8 x 0.8 x 0.5 cm. Postdebridement measurement is 1.0 x 0.7 x 0.7 cm. Epi cord 2.0 x 3.0 cm graft was applied and 100% application to the full-thickness wound to the lateral left foot. Sixth application. There was no concern for infection. Bolster dressing was applied followed by dry sterile dressing and compression wrap. Post-Debridement Measurements and Additional Note: Post-Debridement Measurements/Treatment - Nurse 1 - General Ulcer Assessment Start: 01/05/25 13:23 Freq: Status: Active Protocol: DANIS Activity Type Activity Date Activity User E-sign Co-sign Detail Recorded Client Recorded Date Recorded By Document 01/05/25 13:25 [id number] 01/05/25 13:34 01/05/25 13:25 - Today's Visit Information Type of service Follow-up Visit (Physician/PERL SOFTWARE ENGINEER ) Arrival Mode Wheelchair Accompanied by Patient Identification Verified (Name & Yes ) Vital Signs Temperature (97.8 F-99.1 F) 97.8 F Temperature Source Temporal Pulse Rate (60-100) 57 L Pulse Location Monitor Respiratory Rate (12-18) 18 Respiratory rate source Observation Oxygen Delivery Method Room Air Blood Pressure (90/60-120/80) 149/90 H Blood Pressure Mean (mm Hg) 109 Source Monitor Position Semi-Fowlers Blood Pressure Location Left Arm History Since Last Visit- (Skip if this is Patient's initial visit) Have you changed medications since your No last visit? Any new allergies or adverse reactions No Had a fall/change in ADL's that may No increase risk of falls Signs or symptoms of abuse and/or No neglect since last visit Have you been in the hospital since your No last visit? Has dressing in place as prescribed Yes Has compression in place as prescribed Yes Has offloadiing in place as prescribed Yes Experienced any changes in pain level or No management Left Footwear Surgical Shoe with pressure relief insole Right Footwear Regular Shoe Pain Scale: 0-10 Numeric Is Patient Pain Free? Yes WC - Nurse 1 - General Ulcer Measurement Start: 01/05/25 13:23 Freq: Status: Active Protocol: Activity Type Activity Date Activity User E-sign Co-sign Detail Recorded Client Recorded Date Recorded By Document 01/05/25 13:25 KW [id number] 01/05/25 13:34 KW 01/05/25 13:25 Wound Center Nurse 1 #2 LT HALLUX -Current Size (cm) - Length 0.1 -Current Size (cm) - Width 0.1 -Current Size (cm) - Depth 0.1 -Total Square Cm 0.01 -Date of Last Picture (Recall this 01/05/25 field) -Exudate Amt None Present -Wound Margin Indistinct, Non -Visible -Granulation Amt None Present (0 %) -Necrosis Amt None Present (0 %) -Texture (Livier-wound Skin Appearance) Assessed -Moisture (Livier-wound Skin Appearance) Assessed -Color (Livier-wound Skin Appearance) Assessed -Temperature (Livier-wound Skin No Abnormality Appearance) (Pt Warm) -Tenderness on Palpation (Livier-wound No Skin Appearance) #1 lt lat foot -Current Size (cm) - Length 1 -Current Size (cm) - Width 1.7 -Current Size (cm) - Depth 0.1 -Total Square Cm 1.7 -Date of Last Picture (Recall this 01/05/25 field) -Exudate Amt Small -Exudate Type Serosanguineous -Wound Margin Distinct, Outline Attached -Granulation Amt None Present (0 %) -Necrosis Amt Large (67-100%) -Necrotic Tissue Type Eschar -Texture (Livier-wound Skin Appearance) Assessed -Moisture (Livier-wound Skin Appearance) Assessed -Color (Livier-wound Skin Appearance) Assessed -Temperature (Lviier-wound Skin No Abnormality Appearance) (Pt Warm) -Tenderness on Palpation (Livier-wound No Skin Appearance) -Ulcer Cleansing Soap and Water -Foul Odor after Cleansing No WC - Nurse 2 - General Ulcer CM Notes Start: 01/05/25 13:23 Freq: Status: Active Protocol: Activity Type Activity Date Activity User E-sign Co-sign Detail Recorded Client Recorded Date Recorded By Document 01/05/25 13:54 DARIN [id number] 01/05/25 13:56 JF 01/05/25 13:54 Wound Center Nurse 2 #2 LT HALLUX -Correct Patient Yes -Correct Side, Site, Position No -Correct Procedure No -Procedure Performed No -Post Debridement (cm) - Length 0 -Post Debridement (cm) - Width 0 -Post Debridement (cm) - Depth 0 -Total Square (Post) (cm) 0 -Area of Debridement (cm) - Length 0 -Area of Debridement (cm) - Width 0 -Total Square (Area) (cm) 0 -Wound/Ulcer Outcome Healed- Epithelialized #1 lt lat foot -Time 13:54 -Correct Patient Yes -Correct Side, Site, Position Yes -Correct Procedure Yes -Procedure Performed Yes -Type of Procedure Debridement -Clinical Debridement Muscle / Fascia -Tissue Removed Muscle -Post Debridement (cm) - Length 1.0 -Post Debridement (cm) - Width 0.7 -Post Debridement (cm) - Depth 0.7 -Total Square (Post) (cm) 0.70 -Area of Debridement (cm) - Length 1.0 -Area of Debridement (cm) - Width 0.7 -Total Square (Area) (cm) 0.70 -Tunneling No -Undermining/Tunneling No -Circular Undermining No -Wound/Ulcer Outcome Not Healed -Ulcer Cleansing Rinsed/ Irrigated with Saline -Foul Odor after Cleansing No -Bioengineered Tissue Yes -Type of Bioengineered Tissue Epicord -Expiration Date 07/03/29 -Product Lot Number [id number] -Percent Used 100 -Lot number of Saline Used [id number] -Bleeding Controlled with Pressure -Treatment Response Procedure Tolerated Well -Offloading Yes -Type of Offloading Surgical Shoe -Pressure Reduction Wheelchair cushion -Debridement - Muscle / Fascia, 1st No 20sq cm -Apply Skin Sub - 1st 25 sq cm - Feet 1 -Epicord Application 1-4 (per sq cm) 6 Pain Scale: 0-10 Numeric Is Patient Pain Free? Yes WC - Nurse 3 - General Ulcer D/C NN Start: 01/05/25 13:23 Freq: Status: Active Protocol: Activity Type Activity Date Activity User E-sign Co-sign Detail Recorded Client Recorded Date Recorded By Document 01/05/25 14:11 [facility] [id number] 01/05/25 14:11 [facility] 01/05/25 14:11 Wound Care Center Nurse 3 #1 lt lat foot -Other Dressing epicord -Primary Dressing Covered/Secured with Dry Gauze & Roll Gauze, Secured with Tape -Other Covering abd LLE -Compression Wrap Tobi Wrap -Other to secure Treatment Response Procedure Tolerated Well Pain Scale: 0-10 Numeric Is Patient Pain Free? Yes WC - Visit Discharge Discharge Condition Stable Ambulatory Status Wheelchair Transportation Private Auto Accompanied by Assessment/Plan Assessment/Plan (1) Non-pressure chronic ulcer of other part of left foot with necrosis of muscle: CODE(S): L97.523 - Non-pressure chronic ulcer of other part of left foot with necrosis of muscle PLAN: Patient was examined and evaluated. All findings were discussed with the patient. All questions were answered to the patient's satisfaction. Excisional debridement down to including subcutaneous tissue, muscle, fascia and bone with a number 5 mm dermal curette to the lateral fifth metatarsal head full-thickness wound left foot done without incident. Postdebridement measurement was 0.8 x 0.8 x 0.5 cm. Postdebridement measurement is 1.0 x 0.7 x 0.7 cm. Epi cord 2.0 x 3.0 cm graft was applied and 100% application to the full-thickness wound to the lateral left foot. Sixth application. There was no concern for infection. Bolster dressing was applied followed by dry sterile dressing and compression wrap. Patient was instructed to leave the dressing clean dry and intact. Offload especially when his wheelchair. Patient will follow-up with Dr. Shaikh in 1 weeks. (2) Other hereditary and idiopathic neuropathies: CODE(S): G60.8 - Other hereditary and idiopathic neuropathies
--- NOTE | 2025-01-06 10:15 | WC ---
PHOTO- LEFT HALLUX 01/05/25
--- NOTE | 2025-01-06 10:16 | WC ---
PHOTO- LEFT LAT FOOT 01/05/25
[2025-01-12 11:35] VITALS: BP 121/64; PULSE 55; RESP 16; TEMP 36.6
--- NOTE | 2025-01-12 12:35 | PCM.WC.PN ---
History of Present Illness Date of Service: 01/12/25 Chief Complaint: Full-thickness wound, left foot History of Wound: Patient quadriplegic follows up for left plantar fifth MPJ ulceration which started as a pressure ulceration. Patient denies constitutional symptoms pain or any changes since previous visit. Progress of Wound: Stable full-thickness wound to the lateral left foot with amnion skin graft substitute. Improving well. Subjective Subjective Patient is a 44-year-old male present to clinic today follow-up evaluation of full-thickness wound to the lateral aspect of the left foot submet fifth metatarsal head. Patient has left the amnion skin graft substitute clean dry and intact. He is nonambulatory and is paraplegic in a wheelchair today. He has no pain. Denies trauma. Denies constitutional symptoms. No other pedal complaints at this time. Objective Data Objective Data Vital Signs: Vital Signs Temp Pulse Resp BP O2 Del Method 97.8 F 55 L 16 121/64 H Room Air 01/12/25 11:35 01/12/25 11:35 01/12/25 11:35 01/12/25 11:35 01/05/25 13:25 Oxygen Delivery Method Room Air Physical Exam Narrative Vascular: DP and PT pulses are palpable to left lower extremity. CFT is brisk. No erythema. Skin temperature is warm to cool from proximal ankle to distal digits to the left extremity. Neurological: Patient is quadriplegic and does not have light touch and does not have protective sensation. Dermatological: Evidence of full-thickness wound to the lateral aspect of the fifth metatarsal head measuring 0.8 x 0.7 x 0.4 cm negative probe to bone. Full-thickness wound to the distal left hallux is now healed. Excisional debridement down to including subcutaneous tissue, muscle, fascia with a number 5 mm dermal curette to the lateral fifth metatarsal head full-thickness wound left foot done without incident. Postdebridement measurement was 0.6 x 0.5 x 0.2 cm. Postdebridement measurement is 0.8 x 0.7 x 0.4 cm. EpiFix 18 mm disc/graft was applied and 100% application to the full-thickness wound to the lateral left foot. Seventh application. There was no concern for infection. Bolster dressing was applied followed by dry sterile dressing and compression wrap. Musculoskeletal:No pain to palpation of the full-thickness wound. No pain with calf pressure. Debridement Note Debridement Note Debridement Free Text: Excisional debridement down to including subcutaneous tissue, muscle, fascia with a number 5 mm dermal curette to the lateral fifth metatarsal head full-thickness wound left foot done without incident. Postdebridement measurement was 0.6 x 0.5 x 0.2 cm. Postdebridement measurement is 0.8 x 0.7 x 0.4 cm. EpiFix 18 mm disc/graft was applied and 100% application to the full-thickness wound to the lateral left foot. Seventh application. There was no concern for infection. Bolster dressing was applied followed by dry sterile dressing and compression wrap. Post-Debridement Measurements and Additional Note: Post-Debridement Measurements/Treatment - Nurse 1 - General Ulcer Assessment Start: 01/05/25 13:23 Freq: Status: Active Protocol: WC.LOWEXCelio Activity Type Activity Date Activity User E-sign Co-sign Detail Recorded Client Recorded Date Recorded By Document 01/05/25 13:25 KW [id number] 01/05/25 13:34 KW Document 01/12/25 11:35 DL [id number] 01/12/25 11:45 DL 01/05/25 01/12/25 13:25 11:35 - Today's Visit Information Type of service Follow-up Visit Follow-up Visit (Physician/MUD JACK NOZZLEMAN (Physician/MUD JACK NOZZLEMAN ) ) Arrival Mode Wheelchair Wheelchair Transfer Assistance None Accompanied by Patient Identification Verified (Name & Yes Yes ) Patient Requires Transmission-Based No Precautions Vital Signs Temperature (97.8 F-99.1 F) 97.8 F 97.8 F Temperature Source Temporal Temporal Pulse Rate (60-100) 57 L 55 L Pulse Location Monitor Monitor Respiratory Rate (12-18) 18 16 Respiratory rate source Observation Observation Oxygen Delivery Method Room Air Blood Pressure (90/60-120/80) 149/90 H 121/64 H Blood Pressure Mean (mm Hg) 109 83 Source Monitor Monitor Position Semi-Fowlers Blood Pressure Location Left Arm History Since Last Visit- (Skip if this is Patient's initial visit) Have you changed medications since your No No last visit? Any new allergies or adverse reactions No No Had a fall/change in ADL's that may No No increase risk of falls Signs or symptoms of abuse and/or No No neglect since last visit Have you been in the hospital since your No No last visit? Has dressing in place as prescribed Yes Yes Has compression in place as prescribed Yes N/A Has offloadiing in place as prescribed Yes Yes Experienced any changes in pain level or No No management Left Footwear Surgical Shoe with pressure relief insole Right Footwear Regular Shoe Pain Scale: 0-10 Numeric Is Patient Pain Free? Yes Yes WC - Nurse 1 - General Ulcer Measurement Start: 01/05/25 13:23 Freq: Status: Active Protocol: Activity Type Activity Date Activity User E-sign Co-sign Detail Recorded Client Recorded Date Recorded By Document 01/05/25 13:25 KW [id number] 01/05/25 13:34 KW Document 01/12/25 11:35 DL [id number] 01/12/25 11:45 DL 01/05/25 01/12/25 13:25 11:35 Wound Center Nurse 1 #2 LT HALLUX -Current Size (cm) - Length 0.1 -Current Size (cm) - Width 0.1 -Current Size (cm) - Depth 0.1 -Total Square Cm 0.01 -Date of Last Picture (Recall this 01/05/25 field) -Exudate Amt None Present -Wound Margin Indistinct, Non -Visible -Granulation Amt None Present (0 %) -Necrosis Amt None Present (0 %) -Texture (Livier-wound Skin Appearance) Assessed -Moisture (Livier-wound Skin Appearance) Assessed -Color (Livier-wound Skin Appearance) Assessed -Temperature (Livier-wound Skin No Abnormality Appearance) (Pt Warm) -Tenderness on Palpation (Livier-wound No Skin Appearance) #1 lt lat foot -Current Size (cm) - Length 1 0.1 -Current Size (cm) - Width 1.7 0.1 -Current Size (cm) - Depth 0.1 0.1 -Total Square Cm 1.7 0.01 -Date of Last Picture (Recall this 01/05/25 field) -Exudate Amt Small Small -Exudate Type Serosanguineous Serosanguineous -Wound Margin Distinct, Distinct, Outline Outline Attached Attached -Granulation Amt None Present (0 Medium (34-66%) %) -Granulation Quality Red -Necrosis Amt Large (67-100%) Medium (34-66%) -Necrotic Tissue Type Eschar Adherent Slough -Structure Exposed N/A -Texture (Livier-wound Skin Appearance) Assessed Scarring -Moisture (Livier-wound Skin Appearance) Assessed No Abnormality -Color (Livier-wound Skin Appearance) Assessed No Abnormality -Temperature (Livier-wound Skin No Abnormality No Abnormality Appearance) (Pt Warm) (Pt Warm) -Tenderness on Palpation (Livier-wound No No Skin Appearance) -Ulcer Cleansing Soap and Water Soap and Water -Foul Odor after Cleansing No No -Anesthetic Used 4% Lidocaine Solution WC - Nurse 2 - General Ulcer CM Notes Start: 01/05/25 13:23 Freq: Status: Active Protocol: Activity Type Activity Date Activity User E-sign Co-sign Detail Recorded Client Recorded Date Recorded By Document 01/05/25 13:54 [id number] 01/05/25 13:56 Document 01/12/25 12:05 [id number] 01/12/25 12:11 01/05/25 01/12/25 13:54 12:05 Wound Center Nurse 2 #2 LT HALLUX -Correct Patient Yes -Correct Side, Site, Position No -Correct Procedure No -Procedure Performed No -Post Debridement (cm) - Length 0 -Post Debridement (cm) - Width 0 -Post Debridement (cm) - Depth 0 -Total Square (Post) (cm) 0 -Area of Debridement (cm) - Length 0 -Area of Debridement (cm) - Width 0 -Total Square (Area) (cm) 0 -Wound/Ulcer Outcome Healed- Epithelialized #1 lt lat foot -Time 13:54 12:05 -Correct Patient Yes Yes -Correct Side, Site, Position Yes Yes -Correct Procedure Yes Yes -Procedure Performed Yes Yes -Type of Procedure Debridement Debridement -Clinical Debridement Muscle / Fascia Muscle / Fascia -Tissue Removed Muscle Muscle -Post Debridement (cm) - Length 1.0 0.8 -Post Debridement (cm) - Width 0.7 0.7 -Post Debridement (cm) - Depth 0.7 0.4 -Total Square (Post) (cm) 0.70 0.56 -Area of Debridement (cm) - Length 1.0 0.8 -Area of Debridement (cm) - Width 0.7 0.7 -Total Square (Area) (cm) 0.70 0.56 -Tunneling No No -Undermining/Tunneling No No -Circular Undermining No No -Wound/Ulcer Outcome Not Healed Not Healed -Ulcer Cleansing Rinsed/ Rinsed/ Irrigated with Irrigated with Saline Saline -Foul Odor after Cleansing No No -Bioengineered Tissue Yes Yes -Type of Bioengineered Tissue Epicord Epifix 18mm Disc -Expiration Date 07/03/29 09/02/29 -Product Lot Number [id number] -Percent Used 100 100 -Lot number of Saline Used [id number] -Bleeding Controlled with Pressure Pressure -Treatment Response Procedure Procedure Tolerated Well Tolerated Well -Offloading Yes Yes -Type of Offloading Surgical Shoe Surgical Shoe -Pressure Reduction Wheelchair cushion -Debridement - Muscle / Fascia, 1st No No 20sq cm -Apply Skin Sub - 1st 25 sq cm - Feet 1 1 -Epicord Application 1-4 (per sq cm) 6 -Epifix 18mm Disc Application 1-4 3 Pain Scale: 0-10 Numeric Is Patient Pain Free? Yes Yes - Nurse 3 - General Ulcer D/C NN Start: 01/05/25 13:23 Freq: Status: Active Protocol: Activity Type Activity Date Activity User E-sign Co-sign Detail Recorded Client Recorded Date Recorded By Document 01/05/25 14:11 [facility] [id number] 01/05/25 14:11 [facility] Document 01/12/25 12:26 [id number] 01/12/25 12:26 01/05/25 01/12/25 14:11 12:26 Wound Care Center Nurse 3 #1 lt lat foot -Ulcer Cleansing Not Cleansed -Foul Odor after Cleansing No -Other Dressing epicord -Primary Dressing Covered/Secured with Dry Gauze & Dry Gauze,Dry Roll Gauze, Gauze & Roll Secured with Gauze,Secured Tape with Tape -Other Covering abd LLE -Compression Wrap Tobi Wrap -Other to secure Treatment Response Procedure Tolerated Well Pain Scale: 0-10 Numeric Is Patient Pain Free? 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 All findings were discussed with the patient. All questions were answered to the patient's satisfaction. Excisional debridement down to including subcutaneous tissue, muscle, fascia with a number 5 mm dermal curette to the lateral fifth metatarsal head full-thickness wound left foot done without incident. Postdebridement measurement was 0.6 x 0.5 x 0.2 cm. Postdebridement measurement is 0.8 x 0.7 x 0.4 cm. EpiFix 18 mm disc/graft was applied and 100% application to the full-thickness wound to the lateral left foot. Seventh application. There was no concern for infection. Bolster dressing was applied followed by dry sterile dressing and compression wrap. Patient was instructed to leave the dressing clean dry and intact. Offload especially when his wheelchair. Patient will follow-up with Dr. Shaikh in 1 weeks. (2) Other hereditary and idiopathic neuropathies: CODE(S): G60.8 - Other hereditary and idiopathic neuropathies
[2025-01-19 11:05] VITALS: BP 136/84; PULSE 59; RESP 16; TEMP 36.5
--- NOTE | 2025-01-19 12:56 | PCM.WC.PN ---
History of Present Illness Date of Service: 01/19/25 Chief Complaint: Full-thickness wound, left foot History of Wound: Patient quadriplegic follows up for left plantar fifth MPJ ulceration which started as a pressure ulceration. Patient denies constitutional symptoms pain or any changes since previous visit. Progress of Wound: Stable full-thickness wound to the lateral left foot with amnion skin graft substitute. Improving well. Subjective Subjective Patient is a 44-year-old paraplegic male presenting to wound care center today for follow-up evaluation of full-thickness wound to the lateral fifth metatarsal head of the left foot. He has left the skin graft substitute clean dry and intact. He has increased his protein intake and drinking Tommy as discussed. He has no pain to the left lower extremity. He denies trauma. Denies constitutional symptoms. No other pedal complaints at this time. Objective Data Objective Data Vital Signs: Vital Signs Temp Pulse Resp BP O2 Del Method 97.7 F L 59 L 16 136/84 H Room Air 01/19/25 11:05 01/19/25 11:05 01/19/25 11:05 01/19/25 11:05 01/05/25 13:25 Oxygen Delivery Method Room Air Physical Exam Narrative Vascular: DP and PT pulses are palpable to left lower extremity. CFT is brisk. No erythema. Skin temperature is warm to cool from proximal ankle to distal digits to the left extremity. Neurological: Patient is quadriplegic and does not have light touch and does not have protective sensation. Dermatological: Evidence of full-thickness wound to the lateral aspect of the fifth metatarsal head measuring 0.5 x 0.3 x 0.4 cm negative probe to bone. Excisional debridement down to including subcutaneous tissue, muscle, fascia with a number 5 mm dermal curette to the lateral fifth metatarsal head full-thickness wound left foot done without incident. Postdebridement measurement was sanguinous crust postdebridement measurement is 0.5 x 0.3 x 0.4 cm. EpiFix 18 mm disc/graft was applied and 100% application to the full-thickness wound to the lateral left foot. Eighth application. There was no concern for infection. Bolster dressing was applied followed by dry sterile dressing and compression wrap. Musculoskeletal:No pain to palpation of the full-thickness wound. No pain with calf pressure. Debridement Note Debridement Note Debridement Free Text: Excisional debridement down to including subcutaneous tissue, muscle, fascia with a number 5 mm dermal curette to the lateral fifth metatarsal head full-thickness wound left foot done without incident. Postdebridement measurement was sanguinous crust postdebridement measurement is 0.5 x 0.3 x 0.4 cm. EpiFix 18 mm disc/graft was applied and 100% application to the full-thickness wound to the lateral left foot. Eighth application. There was no concern for infection. Bolster dressing was applied followed by dry sterile dressing and compression wrap. Post-Debridement Measurements and Additional Note: Post-Debridement Measurements/Treatment - Nurse 1 - General Ulcer Assessment Start: 01/05/25 13:23 Freq: Status: Active Protocol: DANIS Activity Type Activity Date Activity User E-sign Co-sign Detail Recorded Client Recorded Date Recorded By Document 01/05/25 13:25 KW [id number] 01/05/25 13:34 KW Document 01/12/25 11:35 DL [id number] 01/12/25 11:45 DL Document 01/19/25 11:05 CP [id number] 01/19/25 11:12 CP 01/05/25 01/12/25 01/19/25 13:25 11:35 11:05 - Today's Visit Information Type of service Follow-up Visit Follow-up Visit Follow-up Visit (Physician/P[employer]MPER (Physician/PANEL[employer] T[employer] PUMPER (Physician/PANEL[employer]ARD T[employer] PUMPER ) ) ) Arrival Mode Wheelchair Wheelchair Wheelchair Transfer Assistance None Accompanied by Patient Identification Verified (Name & Yes Yes Yes ) Patient Requires Transmission-Based No Precautions Vital Signs Temperature (97.8 F-99.1 F) 97.8 F 97.8 F 97.7 F L Temperature Source Temporal Temporal Temporal Pulse Rate (60-100) 57 L 55 L 59 L Pulse Location Monitor Monitor Monitor Respiratory Rate (12-18) 18 16 16 Respiratory rate source Observation Observation Observation Oxygen Delivery Method Room Air Blood Pressure (90/60-120/80) 149/90 H 121/64 H 136/84 H Blood Pressure Mean (mm Hg) 109 83 101 Source Monitor Monitor Monitor Position Semi-Fowlers Sitting Blood Pressure Location Left Arm Left Forearm History Since Last Visit- (Skip if this is Patient's initial visit) Have you changed medications since your No No No last visit? Any new allergies or adverse reactions No No No Had a fall/change in ADL's that may No No No increase risk of falls Signs or symptoms of abuse and/or No No No neglect since last visit Have you been in the hospital since your No No No last visit? Has dressing in place as prescribed Yes Yes Yes Has compression in place as prescribed Yes N/A N/A Has offloadiing in place as prescribed Yes Yes N/A Experienced any changes in pain level or No No management Left Footwear Surgical Shoe with pressure relief insole Right Footwear Regular Shoe Pain Scale: 0-10 Numeric Is Patient Pain Free? Yes Yes Yes WC - Nurse 1 - General Ulcer Measurement Start: 01/05/25 13:23 Freq: Status: Active Protocol: Activity Type Activity Date Activity User E-sign Co-sign Detail Recorded Client Recorded Date Recorded By Document 01/05/25 13:25 KW [id number] 01/05/25 13:34 KW Document 01/12/25 11:35 DL [id number] 01/12/25 11:45 DL Document 01/19/25 11:05 CP [id number] 01/19/25 11:12 CP 01/05/25 01/12/25 01/19/25 13:25 11:35 11:05 Wound Center Nurse 1 #2 LT HALLUX -Current Size (cm) - Length 0.1 -Current Size (cm) - Width 0.1 -Current Size (cm) - Depth 0.1 -Total Square Cm 0.01 -Date of Last Picture (Recall this 01/05/25 field) -Exudate Amt None Present -Wound Margin Indistinct, Non -Visible -Granulation Amt None Present (0 %) -Necrosis Amt None Present (0 %) -Texture (Livier-wound Skin Appearance) Assessed -Moisture (Livier-wound Skin Appearance) Assessed -Color (Livier-wound Skin Appearance) Assessed -Temperature (Livier-wound Skin No Abnormality Appearance) (Pt Warm) -Tenderness on Palpation (Livier-wound No Skin Appearance) #1 lt lat foot -Current Size (cm) - Length 1 0.1 1 -Current Size (cm) - Width 1.7 0.1 1.5 -Current Size (cm) - Depth 0.1 0.1 0.1 -Total Square Cm 1.7 0.01 1.5 -Date of Last Picture (Recall this 01/05/25 field) -Photo Taken Yes -Undermining/Tunneling No -Circular Undermining No -Exudate Amt Small Small Small -Exudate Type Serosanguineous Serosanguineous Sanguineous -Wound Margin Distinct, Distinct, Outline Outline Attached Attached -Granulation Amt None Present (0 Medium (34-66%) %) -Granulation Quality Red -Necrosis Amt Large (67-100%) Medium (34-66%) -Necrotic Tissue Type Eschar Adherent Slough -Structure Exposed N/A -Texture (Livier-wound Skin Appearance) Assessed Scarring No Abnormality -Moisture (Livier-wound Skin Appearance) Assessed No Abnormality No Abnormality -Color (Livier-wound Skin Appearance) Assessed No Abnormality No Abnormality -Temperature (Livier-wound Skin No Abnormality No Abnormality No Abnormality Appearance) (Pt Warm) (Pt Warm) (Pt Warm) -Tenderness on Palpation (Livier-wound No No No Skin Appearance) -Ulcer Cleansing Soap and Water Soap and Water Rinsed/ Irrigated with Saline -Foul Odor after Cleansing No No -Anesthetic Used 4% Lidocaine Solution -Wound Comment(s) scabbed - Nurse 2 - General Ulcer CM Notes Start: 01/05/25 13:23 Freq: Status: Active Protocol: Activity Type Activity Date Activity User E-sign Co-sign Detail Recorded Client Recorded Date Recorded By Document 01/05/25 13:54 [id number] 01/05/25 13:56 Document 01/12/25 12:05 [id number] 01/12/25 12:11 Document 01/19/25 11:36 [id number] 01/19/25 11:39 01/05/25 01/12/25 01/19/25 13:54 12:05 11:36 Wound Center Nurse 2 #2 LT HALLUX -Correct Patient Yes -Correct Side, Site, Position No -Correct Procedure No -Procedure Performed No -Post Debridement (cm) - Length 0 -Post Debridement (cm) - Width 0 -Post Debridement (cm) - Depth 0 -Total Square (Post) (cm) 0 -Area of Debridement (cm) - Length 0 -Area of Debridement (cm) - Width 0 -Total Square (Area) (cm) 0 -Wound/Ulcer Outcome Healed- Epithelialized #1 lt lat foot -Time 13:54 12:05 11:36 -Correct Patient Yes Yes Yes -Correct Side, Site, Position Yes Yes Yes -Correct Procedure Yes Yes Yes -Procedure Performed Yes Yes Yes -Type of Procedure Debridement Debridement Debridement -Clinical Debridement Muscle / Fascia Muscle / Fascia Subcutaneous -Tissue Removed Muscle Muscle Subcutaneous -Post Debridement (cm) - Length 1.0 0.8 0.5 -Post Debridement (cm) - Width 0.7 0.7 0.3 -Post Debridement (cm) - Depth 0.7 0.4 0.4 -Total Square (Post) (cm) 0.70 0.56 0.15 -Area of Debridement (cm) - Length 1.0 0.8 0.5 -Area of Debridement (cm) - Width 0.7 0.7 0.3 -Total Square (Area) (cm) 0.70 0.56 0.15 -Tunneling No No No -Undermining/Tunneling No No No -Circular Undermining No No No -Wound/Ulcer Outcome Not Healed Not Healed Not Healed -Ulcer Cleansing Rinsed/ Rinsed/ Rinsed/ Irrigated with Irrigated with Irrigated with Saline Saline Saline -Foul Odor after Cleansing No No No -Bioengineered Tissue Yes Yes Yes -Type of Bioengineered Tissue Epicord Epifix 18mm Epifix 18mm Disc Disc -Expiration Date 07/03/29 09/02/29 09/02/29 -Product Lot Number [id number] -Percent Used 100 100 100 -Lot number of Saline Used [id number] -Bleeding Controlled with Pressure Pressure Pressure -Treatment Response Procedure Procedure Procedure Tolerated Well Tolerated Well Tolerated Well -Offloading Yes Yes Yes -Type of Offloading Surgical Shoe Surgical Shoe Surgical Shoe -Pressure Reduction Wheelchair Wheelchair cushion cushion -Debridement - Subq, 1st 20sq cm No -Debridement - Muscle / Fascia, 1st No No 20sq cm -Apply Skin Sub - 1st 25 sq cm - Feet 1 1 1 -Epicord Application 1-4 (per sq cm) 6 -Epifix 18mm Disc Application 1-4 3 3 Pain Scale: 0-10 Numeric Is Patient Pain Free? Yes Yes Yes WC - Nurse 3 - General Ulcer D/C NN Start: 01/05/25 13:23 Freq: Status: Active Protocol: Activity Type Activity Date Activity User E-sign Co-sign Detail Recorded Client Recorded Date Recorded By Document 01/05/25 14:11 [facility] [id number] 01/05/25 14:11 [facility] Document 01/12/25 12:26 [id number] 01/12/25 12:26 Document 01/19/25 11:45 [id number] 01/19/25 11:48 01/05/25 01/12/25 01/19/25 14:11 12:26 11:45 Wound Care Center Nurse 3 #1 lt lat foot -Ulcer Cleansing Not Cleansed Not Cleansed -Foul Odor after Cleansing No No -Primary Dressing Applied Silicone Border Foam 4x4 -Other Dressing epicord -Primary Dressing Covered/Secured with Dry Gauze & Dry Gauze,Dry Roll Gauze, Gauze & Roll Secured with Gauze,Secured Tape with Tape -Other Covering abd -Silicone Border Foam 4x4 1 LLE -Lotion applied to leg before No compression wrap -Compression Wrap Tobi Wrap -Tubular Bandage Single Layer -Size of Tubigrip Used Size E -Size E ($) 1 -Other to secure Treatment Response Procedure Tolerated Well Pain Scale: 0-10 Numeric Is Patient Pain Free? Yes Yes Yes WC - Visit Discharge Discharge Condition Stable Stable Stable Ambulatory Status Wheelchair Wheelchair Wheelchair Transportation Private Auto Private Auto Private Auto Accompanied by Assessment/Plan Assessment/Plan (1) Non-pressure chronic ulcer of other part of left foot with necrosis of muscle: CODE(S): L97.523 - Non-pressure chronic ulcer of other part of left foot with necrosis of muscle PLAN: Patient was examined and evaluated. All findings were discussed with the patient. All questions were answered to the patient's satisfaction. Excisional debridement down to including subcutaneous tissue, muscle, fascia with a number 5 mm dermal curette to the lateral fifth metatarsal head full-thickness wound left foot done without incident. Postdebridement measurement was sanguinous crust postdebridement measurement is 0.5 x 0.3 x 0.4 cm. EpiFix 18 mm disc/graft was applied and 100% application to the full-thickness wound to the lateral left foot. Eighth application. There was no concern for infection. Bolster dressing was applied followed by dry sterile dressing and compression wrap. Patient was instructed to leave the dressing clean dry and intact. Offload especially when his wheelchair. Patient will follow-up with Dr. Shaikh in 1 weeks. (2) Other hereditary and idiopathic neuropathies: CODE(S): G60.8 - Other hereditary and idiopathic neuropathies
--- NOTE | 2025-01-20 07:47 | WC ---
Addendum entered by Caprice Romero 01/20/25 07:51: Clearer picture of LEFT LAT FOOT. Original Note: PHOTO - LEFT LAT FOOT 01/19/25
[2025-01-26 10:04] VITALS: BP 147/105; PULSE 59; RESP 16; TEMP 35.8
--- NOTE | 2025-01-26 11:48 | PN.PCM_ITS ---
History of Present Illness Date of Service: 01/26/25 Chief Complaint: Full-thickness wound, left foot History of Wound: Patient quadriplegic follows up for left plantar fifth MPJ ulceration which started as a pressure ulceration. Patient denies constitutional symptoms pain or any changes since previous visit. Progress of Wound: Stable full-thickness wound to the lateral left foot with amnion skin graft substitute. Improving well. Subjective Subjective Patient is a 44-year-old quadriplegic male presenting to clinic today follow-up evaluation of full-thickness wound to lateral aspect of the fifth metatarsal left foot with amniotic skin graft substitute. They have left the dressing clean dry and intact. There is no noticeable strikethrough. He has no pain to the left foot. Denies trauma. Denies constitutional symptoms. No other pedal complaints at this time. Objective Data Objective Data Vital Signs: Vital Signs Temp Pulse Resp BP O2 Del Method 96.4 F L 59 L 16 147/105 H Room Air 01/26/25 10:04 01/26/25 10:04 01/26/25 10:04 01/26/25 10:04 01/26/25 10:04 Oxygen Delivery Method Room Air Physical Exam Narrative Vascular: DP and PT pulses are palpable to left lower extremity. CFT is brisk. No erythema. Skin temperature is warm to cool from proximal ankle to distal digits to the left extremity. Neurological: Patient is quadriplegic and does not have light touch and does not have protective sensation. Dermatological: Evidence of full-thickness wound to the lateral aspect of the fifth metatarsal head measuring 0.3 x 0.2 x 0.1 cm. Negative probe to bone. Excisional debridement down to including subcutaneous tissue with a number 5 mm dermal curette to the lateral fifth metatarsal head full-thickness wound left foot done without incident. Postdebridement measurement was sanguinous crust. postdebridement measurement is 0.3 x 0.2 x 0.1 cm. EpiFix 18 mm disc/graft was applied and 100% application to the full-thickness wound to the lateral left foot. 10th application. There was no concern for infection. Bolster dressing was applied followed by dry sterile dressing and compression wrap. Musculoskeletal:No pain to palpation of the full-thickness wound. No pain with calf pressure. Debridement Note Debridement Note Debridement Free Text: Excisional debridement down to including subcutaneous tissue with a number 5 mm dermal curette to the lateral fifth metatarsal head full-thickness wound left foot done without incident. Postdebridement measurement was sanguinous crust. postdebridement measurement is 0.3 x 0.2 x 0.1 cm. EpiFix 18 mm disc/graft was applied and 100% application to the full-thickness wound to the lateral left foot. 10th application. There was no concern for infection. Bolster dressing was applied followed by dry sterile dressing and compression wrap. Post-Debridement Measurements and Additional Note: Post-Debridement Measurements/Treatment - Nurse 1 - General Ulcer Assessment Start: 01/05/25 13:23 Freq: Status: Active Protocol: RUDI.PRAVEEN Activity Type Activity Date Activity User E-sign Co-sign Detail Recorded Client Recorded Date Recorded By Document 01/05/25 13:25 KW [id number] 01/05/25 13:34 KW Document 01/12/25 11:35 DL [id number] 01/12/25 11:45 DL Document 01/19/25 11:05 CP [id number] 01/19/25 11:12 CP Document 01/26/25 10:04 GM [id number] 01/26/25 10:22 GM 01/05/25 01/12/25 01/19/25 13:25 11:35 11:05 - Today's Visit Information Type of service Follow-up Visit Follow-up Visit Follow-up Visit (Physician/EXTRACORPOREAL CIRCULATION SPECIALIST (Physician/EXTRACORPOREAL CIRCULATION SPECIALIST (Physician/EXTRACORPOREAL CIRCULATION SPECIALIST ) ) ) Arrival Mode Wheelchair Wheelchair Wheelchair Transfer Assistance None Accompanied by Patient Identification Verified (Name & Yes Yes Yes ) Patient Requires Transmission-Based No Precautions Vital Signs Temperature (97.8 F-99.1 F) 97.8 F 97.8 F 97.7 F L Temperature Source Temporal Temporal Temporal Pulse Rate (60-100) 57 L 55 L 59 L Pulse Location Monitor Monitor Monitor Respiratory Rate (12-18) 18 16 16 Respiratory rate source Observation Observation Observation Oxygen Delivery Method Room Air Blood Pressure (90/60-120/80) 149/90 H 121/64 H 136/84 H Blood Pressure Mean (mm Hg) 109 83 101 Source Monitor Monitor Monitor Position Semi-Fowlers Sitting Blood Pressure Location Left Arm Left Forearm History Since Last Visit- (Skip if this is Patient's initial visit) Have you changed medications since your No No No last visit? Any new allergies or adverse reactions No No No Had a fall/change in ADL's that may No No No increase risk of falls Signs or symptoms of abuse and/or No No No neglect since last visit Have you been in the hospital since your No No No last visit? Has dressing in place as prescribed Yes Yes Yes Has compression in place as prescribed Yes N/A N/A Has offloadiing in place as prescribed Yes Yes N/A Experienced any changes in pain level or No No management Left Footwear Surgical Shoe with pressure relief insole Right Footwear Regular Shoe Pain Scale: 0-10 Numeric Is Patient Pain Free? Yes Yes Yes 01/26/25 10:04 WC - Today's Visit Information Type of service Follow-up Visit (Physician/EXTRACORPOREAL CIRCULATION SPECIALIST ) Arrival Mode Wheelchair Transfer Assistance None Accompanied by Patient Identification Verified (Name & Yes ) Patient Requires Transmission-Based No Precautions Vital Signs Temperature (97.8 F-99.1 F) 96.4 F L Temperature Source Temporal Pulse Rate (60-100) 59 L Pulse Location Monitor Respiratory Rate (12-18) 16 Respiratory rate source Observation Oxygen Delivery Method Room Air Blood Pressure (90/60-120/80) 147/105 H Blood Pressure Mean (mm Hg) 119 Source Monitor Position Sitting Blood Pressure Location Left Arm History Since Last Visit- (Skip if this is Patient's initial visit) Have you changed medications since your No last visit? Any new allergies or adverse reactions No Had a fall/change in ADL's that may No increase risk of falls Signs or symptoms of abuse and/or No neglect since last visit Have you been in the hospital since your No last visit? Has dressing in place as prescribed Yes Has compression in place as prescribed Yes Has offloadiing in place as prescribed Yes Experienced any changes in pain level or No management Left Footwear Regular Shoe Right Footwear Regular Shoe Pain Scale: 0-10 Numeric Is Patient Pain Free? Yes - Nurse 1 - General Ulcer Measurement Start: 01/05/25 13:23 Freq: Status: Active Protocol: Activity Type Activity Date Activity User E-sign Co-sign Detail Recorded Client Recorded Date Recorded By Document 01/05/25 13:25 KW [id number] 01/05/25 13:34 KW Document 01/12/25 11:35 DL [id number] 01/12/25 11:45 DL Document 01/19/25 11:05 CP [id number] 01/19/25 11:12 CP Document 01/26/25 10:04 GM [id number] 01/26/25 10:22 GM 01/05/25 01/12/25 01/19/25 13:25 11:35 11:05 Wound Center Nurse 1 #2 LT HALLUX -Current Size (cm) - Length 0.1 -Current Size (cm) - Width 0.1 -Current Size (cm) - Depth 0.1 -Total Square Cm 0.01 -Date of Last Picture (Recall this 01/05/25 field) -Exudate Amt None Present -Wound Margin Indistinct, Non -Visible -Granulation Amt None Present (0 %) -Necrosis Amt None Present (0 %) -Texture (Livier-wound Skin Appearance) Assessed -Moisture (Livier-wound Skin Appearance) Assessed -Color (Livier-wound Skin Appearance) Assessed -Temperature (Livier-wound Skin No Abnormality Appearance) (Pt Warm) -Tenderness on Palpation (Livier-wound No Skin Appearance) #1 lt lat foot -Current Size (cm) - Length 1 0.1 1 -Current Size (cm) - Width 1.7 0.1 1.5 -Current Size (cm) - Depth 0.1 0.1 0.1 -Total Square Cm 1.7 0.01 1.5 -Date of Last Picture (Recall this 01/05/25 field) -Photo Taken Yes -Epithelialization -Tunneling -Undermining/Tunneling No -Circular Undermining No -Exudate Amt Small Small Small -Exudate Type Serosanguineous Serosanguineous Sanguineous -Wound Margin Distinct, Distinct, Outline Outline Attached Attached -Granulation Amt None Present (0 Medium (34-66%) %) -Granulation Quality Red -Slough/Fibrin -Necrosis Amt Large (67-100%) Medium (34-66%) -Necrotic Tissue Type Eschar Adherent Slough -Structure Exposed N/A -Texture (Livier-wound Skin Appearance) Assessed Scarring No Abnormality -Moisture (Livier-wound Skin Appearance) Assessed No Abnormality No Abnormality -Color (Livier-wound Skin Appearance) Assessed No Abnormality No Abnormality -Temperature (Livier-wound Skin No Abnormality No Abnormality No Abnormality Appearance) (Pt Warm) (Pt Warm) (Pt Warm) -Tenderness on Palpation (Livier-wound No No No Skin Appearance) -Ulcer Cleansing Soap and Water Soap and Water Rinsed/ Irrigated with Saline -Foul Odor after Cleansing No No -Anesthetic Used 4% Lidocaine Solution -Wound Comment(s) scabbed 01/26/25 10:04 Wound Center Nurse 1 #2 LT HALLUX -Current Size (cm) - Length -Current Size (cm) - Width -Current Size (cm) - Depth -Total Square Cm -Date of Last Picture (Recall this field) -Exudate Amt -Wound Margin -Granulation Amt -Necrosis Amt -Texture (Livier-wound Skin Appearance) -Moisture (Livier-wound Skin Appearance) -Color (Livier-wound Skin Appearance) -Temperature (Livier-wound Skin Appearance) -Tenderness on Palpation (Livier-wound Skin Appearance) #1 lt lat foot -Current Size (cm) - Length 0.1 -Current Size (cm) - Width 0.1 -Current Size (cm) - Depth 0.1 -Total Square Cm 0.01 -Date of Last Picture (Recall this 01/26/25 field) -Photo Taken Yes -Epithelialization Large 67-100% -Tunneling No -Undermining/Tunneling No -Circular Undermining No -Exudate Amt Small -Exudate Type Sanguineous -Wound Margin Distinct, Outline Attached -Granulation Amt Large (67-100%) -Granulation Quality [place] -Slough/Fibrin No -Necrosis Amt -Necrotic Tissue Type -Structure Exposed -Texture (Livier-wound Skin Appearance) Assessed -Moisture (Livier-wound Skin Appearance) Assessed -Color (Livier-wound Skin Appearance) Assessed -Temperature (Livier-wound Skin No Abnormality Appearance) (Pt Warm) -Tenderness on Palpation (Livier-wound No Skin Appearance) -Ulcer Cleansing Soap and Water -Foul Odor after Cleansing No -Anesthetic Used -Wound Comment(s) WC - Nurse 2 - General Ulcer CM Notes Start: 01/05/25 13:23 Freq: Status: Active Protocol: Activity Type Activity Date Activity User E-sign Co-sign Detail Recorded Client Recorded Date Recorded By Document 01/05/25 13:54 DARIN [id number] 01/05/25 13:56 JF Document 01/12/25 12:05 DARIN [id number] 01/12/25 12:11 Document 01/19/25 11:36 DARIN [id number] 01/19/25 11:39 Document 01/26/25 10:16 [id number] 01/26/25 10:17 JF 01/05/25 01/12/25 01/19/25 13:54 12:05 11:36 Wound Center Nurse 2 #2 LT HALLUX -Correct Patient Yes -Correct Side, Site, Position No -Correct Procedure No -Procedure Performed No -Post Debridement (cm) - Length 0 -Post Debridement (cm) - Width 0 -Post Debridement (cm) - Depth 0 -Total Square (Post) (cm) 0 -Area of Debridement (cm) - Length 0 -Area of Debridement (cm) - Width 0 -Total Square (Area) (cm) 0 -Wound/Ulcer Outcome Healed- Epithelialized #1 lt lat foot -Time 13:54 12:05 11:36 -Correct Patient Yes Yes Yes -Correct Side, Site, Position Yes Yes Yes -Correct Procedure Yes Yes Yes -Procedure Performed Yes Yes Yes -Type of Procedure Debridement Debridement Debridement -Clinical Debridement Muscle / Fascia Muscle / Fascia Subcutaneous -Tissue Removed Muscle Muscle Subcutaneous -Post Debridement (cm) - Length 1.0 0.8 0.5 -Post Debridement (cm) - Width 0.7 0.7 0.3 -Post Debridement (cm) - Depth 0.7 0.4 0.4 -Total Square (Post) (cm) 0.70 0.56 0.15 -Area of Debridement (cm) - Length 1.0 0.8 0.5 -Area of Debridement (cm) - Width 0.7 0.7 0.3 -Total Square (Area) (cm) 0.70 0.56 0.15 -Tunneling No No No -Undermining/Tunneling No No No -Circular Undermining No No No -Wound/Ulcer Outcome Not Healed Not Healed Not Healed -Ulcer Cleansing Rinsed/ Rinsed/ Rinsed/ Irrigated with Irrigated with Irrigated with Saline Saline Saline -Foul Odor after Cleansing No No No -Bioengineered Tissue Yes Yes Yes -Type of Bioengineered Tissue Epicord Epifix 18mm Epifix 18mm Disc Disc -Expiration Date 07/03/29 09/02/29 09/02/29 -Product Lot Number [id number] -Percent Used 100 100 100 -Lot number of Saline Used [id number] -Bleeding Controlled with Pressure Pressure Pressure -Treatment Response Procedure Procedure Procedure Tolerated Well Tolerated Well Tolerated Well -Offloading Yes Yes Yes -Type of Offloading Surgical Shoe Surgical Shoe Surgical Shoe -Pressure Reduction Wheelchair Wheelchair cushion cushion -Debridement - Subq, 1st 20sq cm No -Debridement - Muscle / Fascia, 1st No No 20sq cm -Apply Skin Sub - 1st 25 sq cm - Feet 1 1 1 -Epicord Application 1-4 (per sq cm) 6 -Epifix 18mm Disc Application 1-4 3 3 Pain Scale: 0-10 Numeric Is Patient Pain Free? Yes Yes Yes 01/26/25 10:16 Wound Center Nurse 2 #2 LT HALLUX -Correct Patient -Correct Side, Site, Position -Correct Procedure -Procedure Performed -Post Debridement (cm) - Length -Post Debridement (cm) - Width -Post Debridement (cm) - Depth -Total Square (Post) (cm) -Area of Debridement (cm) - Length -Area of Debridement (cm) - Width -Total Square (Area) (cm) -Wound/Ulcer Outcome #1 lt lat foot -Time 10:16 -Correct Patient Yes -Correct Side, Site, Position Yes -Correct Procedure Yes -Procedure Performed Yes -Type of Procedure Debridement -Clinical Debridement Subcutaneous -Tissue Removed Subcutaneous -Post Debridement (cm) - Length 0.3 -Post Debridement (cm) - Width 0.2 -Post Debridement (cm) - Depth 0.1 -Total Square (Post) (cm) 0.06 -Area of Debridement (cm) - Length 0.3 -Area of Debridement (cm) - Width 0.2 -Total Square (Area) (cm) 0.06 -Tunneling No -Undermining/Tunneling No -Circular Undermining No -Wound/Ulcer Outcome Not Healed -Ulcer Cleansing Rinsed/ Irrigated with Saline -Foul Odor after Cleansing No -Bioengineered Tissue Yes -Type of Bioengineered Tissue Epifix 18mm Disc -Expiration Date 09/02/29 -Product Lot Number [id number] -Percent Used 100 -Lot number of Saline Used [id number] -Bleeding Controlled with Pressure -Treatment Response Procedure Tolerated Well -Offloading Yes -Type of Offloading Surgical Shoe -Pressure Reduction -Debridement - Subq, 1st 20sq cm No -Debridement - Muscle / Fascia, 1st 20sq cm -Apply Skin Sub - 1st 25 sq cm - Feet 1 -Epicord Application 1-4 (per sq cm) -Epifix 18mm Disc Application 1-4 3 Pain Scale: 0-10 Numeric Is Patient Pain Free? Yes - Nurse 3 - General Ulcer D/C NN Start: 01/05/25 13:23 Freq: Status: Active Protocol: Activity Type Activity Date Activity User E-sign Co-sign Detail Recorded Client Recorded Date Recorded By Document 01/05/25 14:11 [facility] [id number] 01/05/25 14:11 [facility] Document 01/12/25 12:26 [id number] 01/12/25 12:26 Document 01/19/25 11:45 [id number] 01/19/25 11:48 Document 01/26/25 10:17 [id number] 01/26/25 10:18 01/05/25 01/12/25 01/19/25 14:11 12:26 11:45 Wound Care Center Nurse 3 #1 lt lat foot -Ulcer Cleansing Not Cleansed Not Cleansed -Foul Odor after Cleansing No No -Primary Dressing Applied Silicone Border Foam 4x4 -Other Dressing epicord -Primary Dressing Covered/Secured with Dry Gauze & Dry Gauze,Dry Roll Gauze, Gauze & Roll Secured with Gauze,Secured Tape with Tape -Other Covering abd -Silicone Border Foam 4x4 1 LLE -Lotion applied to leg before No compression wrap -Compression Wrap Tobi Wrap -Tubular Bandage Single Layer -Size of Tubigrip Used Size E -Size E ($) 1 -Other to secure Treatment Response Procedure Tolerated Well Pain Scale: 0-10 Numeric Is Patient Pain Free? Yes Yes Yes - Visit Discharge Discharge Condition Stable Stable Stable Ambulatory Status Wheelchair Wheelchair Wheelchair Transportation Private Auto Private Auto Private Auto Accompanied by Medication Reconcilliation completed & provided to patient/care provider Clinical Summary of Care Provided 01/26/25 10:17 Wound Care Center Nurse 3 #1 lt lat foot -Ulcer Cleansing Rinsed/ Irrigated with Saline -Foul Odor after Cleansing No -Primary Dressing Applied Silicone Border Foam 4x4 -Other Dressing -Primary Dressing Covered/Secured with -Other Covering -Silicone Border Foam 4x4 1 LLE -Lotion applied to leg before compression wrap -Compression Wrap -Tubular Bandage -Size of Tubigrip Used -Size E ($) -Other Treatment Response Pain Scale: 0-10 Numeric Is Patient Pain Free? Yes WC - Visit Discharge Discharge Condition Stable Ambulatory Status Wheelchair Transportation Private Auto Accompanied by Medication Reconcilliation completed & Yes provided to patient/care provider Clinical Summary of Care Provided Yes Assessment/Plan Assessment/Plan (1) Non-pressure chronic ulcer of other part of left foot with necrosis of muscle: CODE(S): L97.523 - Non-pressure chronic ulcer of other part of left foot with necrosis of muscle PLAN: Patient was examined and evaluated. All findings were discussed with the patient. All questions were answered to the patient's satisfaction. Excisional debridement down to including subcutaneous tissue with a number 5 mm dermal curette to the lateral fifth metatarsal head full-thickness wound left foot done without incident. Postdebridement measurement was sanguinous crust. postdebridement measurement is 0.3 x 0.2 x 0.1 cm. EpiFix 18 mm disc/graft was applied and 100% application to the full-thickness wound to the lateral left foot. 10th application. There was no concern for infection. Bolster dressing was applied followed by dry sterile dressing and compression wrap. Patient was instructed to leave the dressing clean dry and intact. Offload especially when his wheelchair. Patient will follow-up with Dr. Shaikh in 1 weeks. (2) Other hereditary and idiopathic neuropathies: CODE(S): G60.8 - Other hereditary and idiopathic neuropathies
--- NOTE | 2025-01-27 14:24 | WC ---
PHOTO-LEFT LATERAL FOOT 01/26/25
== END 2025-02-01 23:59 | disposition home or self-care (01) ==
LOC: WC 09:45
PROVIDERS: PCP Family Medicine; Referring Provider Family Medicine; Visit Provider Podiatrist Foot & Ankle Surgery
DX: L97.522 Non-pressure chronic ulcer of other part of left foot with fat layer exposed (principal); G82.50 Quadriplegia, unspecified; L97.523 Non-pressure chronic ulcer of other part of left foot with necrosis of muscle; G60.8 Other hereditary and idiopathic neuropathies
CPT/HCPCS: 15275; Q4186; Q4187

== ENCOUNTER 2025-02-23 11:15 | Outpatient (RCR) | payer MEDICAID, SELFPAY ==
[2025-02-02 11:34] VITALS: BP 140/78; PULSE 58; RESP 16; TEMP 35.6
--- NOTE | 2025-02-02 14:40 | PCM.WC.PN ---
History of Present Illness Date of Service: 02/02/25 Chief Complaint: Full-thickness wound, left foot History of Wound: Patient quadriplegic follows up for left plantar fifth MPJ ulceration which started as a pressure ulceration. Patient denies constitutional symptoms pain or any changes since previous visit. Progress of Wound: Stable full-thickness wound with amniotic skin graft substitute to the lateral fifth metatarsal head left foot. Subjective Subjective Patient is a 44-year-old quadriplegic male presenting to the wound care center today follow-up evaluation of full-thickness wound to the lateral fifth metatarsal head of the left foot amniotic skin graft substitute. Patient is left the dressing clean dry and intact. He is not on amatory. He has no pain to the bilateral lower extremity. He denies trauma. Denies constitutional symptoms. No other pedal complaints at this time. Objective Data Objective Data Vital Signs: Vital Signs Temp Pulse Resp BP O2 Del Method 96.1 F L 58 L 16 140/78 H Room Air 02/02/25 11:34 02/02/25 11:34 02/02/25 11:34 02/02/25 11:34 02/02/25 11:34 Oxygen Delivery Method Room Air Physical Exam Narrative Vascular: DP and PT pulses are palpable to left lower extremity. CFT is brisk. No erythema. Skin temperature is warm to cool from proximal ankle to distal digits to the left extremity. Neurological: Patient is quadriplegic and does not have light touch and does not have protective sensation. Dermatological: Evidence of full-thickness wound to the lateral aspect of the fifth metatarsal head with applied amniotic skin graft substitute. Negative probe to bone. Musculoskeletal:No pain to palpation of the full-thickness wound. No pain with calf pressure. Debridement Note Debridement Note Post-Debridement Measurements and Additional Note: Post-Debridement Measurements/Treatment - Nurse 1 - General Ulcer Assessment Start: 02/02/25 11:34 Freq: Status: Active Protocol: DANIS Activity Type Activity Date Activity User E-sign Co-sign Detail Recorded Client Recorded Date Recorded By Document 02/02/25 11:34 [id number] 02/02/25 11:36 02/02/25 11:34 - Today's Visit Information Type of service Follow-up Visit (Physician/CASEY SAW OPERATOR ) Arrival Mode Wheelchair Transfer Assistance None Patient Identification Verified (Name & Yes ) Vital Signs Temperature (97.8 F-99.1 F) 96.1 F L Temperature Source Temporal Pulse Rate (60-100) 58 L Pulse Location Monitor Respiratory Rate (12-18) 16 Respiratory rate source Observation Oxygen Delivery Method Room Air Blood Pressure (90/60-120/80) 140/78 H Blood Pressure Mean (mm Hg) 98 Source Monitor Position Supine Blood Pressure Location Left Arm History Since Last Visit- (Skip if this is Patient's initial visit) Have you changed medications since your No last visit? Any new allergies or adverse reactions No Had a fall/change in ADL's that may No increase risk of falls Signs or symptoms of abuse and/or No neglect since last visit Have you been in the hospital since your No last visit? Has dressing in place as prescribed Yes Has compression in place as prescribed Yes Has offloadiing in place as prescribed N/A Experienced any changes in pain level or No management Left Footwear Regular Shoe Right Footwear Regular Shoe Pain Scale: 0-10 Numeric Is Patient Pain Free? Yes WC - Nurse 1 - General Ulcer Measurement Start: 02/02/25 11:34 Freq: Status: Active Protocol: Activity Type Activity Date Activity User E-sign Co-sign Detail Recorded Client Recorded Date Recorded By Document 02/02/25 11:34 [id number] 02/02/25 11:36 02/02/25 11:34 Wound Center Nurse 1 #1 lt lat foot -Current Size (cm) - Length 0.1 -Current Size (cm) - Width 0.1 -Current Size (cm) - Depth 0.1 -Total Square Cm 0.01 -Photo Taken No -Wound Comment(s) EPIFIX STILL INTACT WC - Nurse 2 - General Ulcer CM Notes Start: 02/02/25 11:34 Freq: Status: Active Protocol: Activity Type Activity Date Activity User E-sign Co-sign Detail Recorded Client Recorded Date Recorded By Document 02/02/25 11:51 [id number] 02/02/25 11:52 DARIN 02/02/25 11:51 Wound Center Nurse 2 -Correct Patient Yes -Correct Side, Site, Position No -Correct Procedure No -Procedure Performed No -Post Debridement (cm) - Length 0.1 -Post Debridement (cm) - Width 0.1 -Post Debridement (cm) - Depth 0.1 -Total Square (Post) (cm) 0.01 -Area of Debridement (cm) - Length 0.1 -Area of Debridement (cm) - Width 0.1 -Total Square (Area) (cm) 0.01 -Wound/Ulcer Outcome Not Healed Pain Scale: 0-10 Numeric Is Patient Pain Free? Yes WC - Nurse 3 - General Ulcer D/C NN Start: 02/02/25 11:34 Freq: Status: Active Protocol: Activity Type Activity Date Activity User E-sign Co-sign Detail Recorded Client Recorded Date Recorded By Document 02/02/25 11:52 DARIN [id number] 02/02/25 11:53 DARIN 02/02/25 11:52 Wound Care Center Nurse 3 #1 lt lat foot -Ulcer Cleansing Rinsed/ Irrigated with Saline -Foul Odor after Cleansing No -Primary Dressing Applied Silicone Border Foam 4x4 -Silicone Border Foam 4x4 1 LLE -Tubular Bandage Single Layer -Size of Tubigrip Used Size D -Size D ($) 0 Pain Scale: 0-10 Numeric Is Patient Pain Free? Yes WC - Visit Discharge Discharge Condition Stable Ambulatory Status Wheelchair Transportation Medication Reconcilliation completed & Yes provided to patient/care provider Clinical Summary of Care Provided Yes Assessment/Plan Assessment/Plan (1) Non-pressure chronic ulcer of other part of left foot with necrosis of muscle: CODE(S): L97.523 - Non-pressure chronic ulcer of other part of left foot with necrosis of muscle PLAN: Patient was examined and evaluated. All findings were discussed with the patient. All questions were answered to the patient's satisfaction. After exam the patient's amnion skin graft substitute will remain clean dry and intact. Bordered foam was applied followed by compression wrap and athletic shoe. Patient does not need to do dressing changes at this time. Patient and his are grateful for his care and they will follow-up in approximately 1 week. Patient will follow-up with Dr. Shaikh in 1 weeks. (2) Other hereditary and idiopathic neuropathies: CODE(S): G60.8 - Other hereditary and idiopathic neuropathies
[2025-02-09 11:21] VITALS: BP 145/89; PULSE 60; RESP 16; TEMP 36.3
--- NOTE | 2025-02-09 15:47 | PCM.WC.PN ---
History of Present Illness Date of Service: 02/09/25 Chief Complaint: Full-thickness wound, left foot History of Wound: Patient quadriplegic follows up for left plantar fifth MPJ ulceration which started as a pressure ulceration. Patient denies constitutional symptoms pain or any changes since previous visit. Progress of Wound: Stable full-thickness wound with amniotic skin graft substitute to the lateral fifth metatarsal head left foot. Subjective Subjective Patient is a 44-year-old quadriplegic male presenting to clinic today follow-up evaluation of full-thickness wound with amniotic skin graft substitute to the lateral fifth metatarsal head of the left foot. He is left the graft clean dry and intact. He denies any drainage or redness. He continues to offload. Denies trauma. Denies constitutional symptoms. No other pedal complaints at this time. Objective Data Objective Data Vital Signs: Vital Signs Temp Pulse Resp BP O2 Del Method 97.3 F L 60 16 145/89 H Room Air 02/09/25 11:21 02/09/25 11:21 02/09/25 11:21 02/09/25 11:21 02/02/25 11:34 Oxygen Delivery Method Room Air Physical Exam Narrative Vascular: DP and PT pulses are palpable to left lower extremity. CFT is brisk. No erythema. Skin temperature is warm to cool from proximal ankle to distal digits to the left extremity. Neurological: Patient is quadriplegic and does not have light touch and does not have protective sensation. Dermatological: Full-thickness wound to the lateral aspect of the fifth metatarsal head is now healed. Negative probe to bone. Musculoskeletal:No pain to palpation of the full-thickness wound. No pain with calf pressure. Debridement Note Debridement Note Post-Debridement Measurements and Additional Note: Post-Debridement Measurements/Treatment - Nurse 1 - General Ulcer Assessment Start: 02/02/25 11:34 Freq: Status: Active Protocol: RUDI.TELLOEXCelio Activity Type Activity Date Activity User E-sign Co-sign Detail Recorded Client Recorded Date Recorded By Document 02/02/25 11:34 [id number] 02/02/25 11:36 Document 02/09/25 11:21 CP [id number] 02/09/25 11:29 CP 02/02/25 02/09/25 11:34 11:21 - Today's Visit Information Type of service Follow-up Visit Follow-up Visit (Physician/EXCELSIOR MACHINE OPERATOR (Physician/EXCELSIOR MACHINE OPERATOR ) ) Arrival Mode Wheelchair Wheelchair Transfer Assistance None Patient Identification Verified (Name & Yes Yes ) Vital Signs Temperature (97.8 F-99.1 F) 96.1 F L 97.3 F L Temperature Source Temporal Temporal Pulse Rate (60-100) 58 L 60 Pulse Location Monitor Monitor Respiratory Rate (12-18) 16 16 Respiratory rate source Observation Observation Oxygen Delivery Method Room Air Blood Pressure (90/60-120/80) 140/78 H 145/89 H Blood Pressure Mean (mm Hg) 98 107 Source Monitor Monitor Position Supine Sitting Blood Pressure Location Left Arm Left Forearm History Since Last Visit- (Skip if this is Patient's initial visit) Have you changed medications since your No No last visit? Any new allergies or adverse reactions No No Had a fall/change in ADL's that may No No increase risk of falls Signs or symptoms of abuse and/or No No neglect since last visit Have you been in the hospital since your No No last visit? Has dressing in place as prescribed Yes Yes Has compression in place as prescribed Yes N/A Has offloadiing in place as prescribed N/A N/A Experienced any changes in pain level or No No management Left Footwear Regular Shoe Right Footwear Regular Shoe Pain Scale: 0-10 Numeric Is Patient Pain Free? Yes Yes WC - Nurse 1 - General Ulcer Measurement Start: 02/02/25 11:34 Freq: Status: Active Protocol: Activity Type Activity Date Activity User E-sign Co-sign Detail Recorded Client Recorded Date Recorded By Document 02/02/25 11:34 [id number] 02/02/25 11:36 Document 02/09/25 11:21 [id number] 02/09/25 11:29 CP 02/02/25 02/09/25 11:34 11:21 Wound Center Nurse 1 #1 lt lat foot -Current Size (cm) - Length 0.1 0.1 -Current Size (cm) - Width 0.1 0.1 -Current Size (cm) - Depth 0.1 0.1 -Total Square Cm 0.01 0.01 -Date of Last Picture (Recall this 02/09/25 field) -Photo Taken No Yes -Texture (Livier-wound Skin Appearance) No Abnormality -Moisture (Livier-wound Skin Appearance) No Abnormality -Color (Livier-wound Skin Appearance) No Abnormality -Temperature (Livier-wound Skin No Abnormality Appearance) (Pt Warm) -Tenderness on Palpation (Livier-wound No Skin Appearance) -Ulcer Cleansing Rinsed/ Irrigated with Saline -Anesthetic Used 5% Lidocaine Gel -Wound Comment(s) EPIFIX STILL INTACT WC - Nurse 2 - General Ulcer CM Notes Start: 02/02/25 11:34 Freq: Status: Active Protocol: Activity Type Activity Date Activity User E-sign Co-sign Detail Recorded Client Recorded Date Recorded By Document 02/02/25 11:51 [id number] 02/02/25 11:52 Document 02/09/25 11:39 [id number] 02/09/25 11:40 02/02/25 02/09/25 11:51 11:39 Wound Center Nurse 2 #1 lt lat foot -Correct Patient Yes Yes -Correct Side, Site, Position No No -Correct Procedure No No -Procedure Performed No No -Post Debridement (cm) - Length 0.1 0.1 -Post Debridement (cm) - Width 0.1 0.1 -Post Debridement (cm) - Depth 0.1 0.1 -Total Square (Post) (cm) 0.01 0.01 -Area of Debridement (cm) - Length 0.1 0.1 -Area of Debridement (cm) - Width 0.1 0.1 -Total Square (Area) (cm) 0.01 0.01 -Wound/Ulcer Outcome Not Healed Healed- Epithelialized Pain Scale: 0-10 Numeric Is Patient Pain Free? Yes Yes - Nurse 3 - General Ulcer D/C NN Start: 02/02/25 11:34 Freq: Status: Active Protocol: Activity Type Activity Date Activity User E-sign Co-sign Detail Recorded Client Recorded Date Recorded By Document 02/02/25 11:52 [id number] 02/02/25 11:53 Document 02/09/25 11:40 [id number] 02/09/25 11:46 02/02/25 02/09/25 11:52 11:40 Wound Care Center Nurse 3 #1 lt lat foot -Ulcer Cleansing Rinsed/ Rinsed/ Irrigated with Irrigated with Saline Saline -Foul Odor after Cleansing No No -Primary Dressing Applied Silicone Border Silicone Border Foam 4x4 Foam 4x4 -Silicone Border Foam 4x4 1 1 LLE -Tubular Bandage Single Layer -Size of Tubigrip Used Size D -Size D ($) 0 Pain Scale: 0-10 Numeric Is Patient Pain Free? Yes Yes WC - Visit Discharge Discharge Condition Stable Stable Ambulatory Status Wheelchair Wheelchair Transportation Private Auto Medication Reconcilliation completed & Yes No provided to patient/care provider Clinical Summary of Care Provided Yes No Assessment/Plan Assessment/Plan (1) Non-pressure chronic ulcer of other part of left foot with necrosis of muscle: CODE(S): L97.523 - Non-pressure chronic ulcer of other part of left foot with necrosis of muscle PLAN: Patient was examined and evaluated. All findings were discussed with the patient. All questions were answered to the patient's satisfaction. After exam the full-thickness wound is now healed after removal of the amnion skin graft substitute. The area will be padded and protected with Tubigrip and shoe gear. The patient will continue to monitor the area and follow-up in 2 weeks. At next follow-up if the patient is completely healed and there is no concern for breakdown of skin and he will be discharged from the wound care center. Patient will follow-up with Dr. Shaikh in 2 weeks. (2) Other hereditary and idiopathic neuropathies: CODE(S): G60.8 - Other hereditary and idiopathic neuropathies
--- NOTE | 2025-02-10 09:30 | WC ---
PHOTO-RIGHT LATERAL FOOT 02/09/25
[2025-02-23 11:24] VITALS: BP 97/62; PULSE 62; RESP 16; TEMP 36
--- NOTE | 2025-02-24 09:19 | WC ---
PHOTO: LEFT LAT FOOT 02/23/25
--- NOTE | 2025-02-26 16:47 | PCM.WC.PN ---
History of Present Illness Date of Service: 02/26/25 Chief Complaint: Full-thickness wound, left foot History of Wound: Patient quadriplegic follows up for left plantar fifth MPJ ulceration which started as a pressure ulceration. Patient denies constitutional symptoms pain or any changes since previous visit. Progress of Wound: Stable full-thickness wound with amniotic skin graft substitute to the lateral fifth metatarsal head left foot. Subjective Subjective Patient is a 44-year-old male present to clinic today for follow-up evaluation of full-thickness wound to the lateral left foot that is now healed. Patient is very grateful for his care. He has been offloading as discussed. He denies trauma. Denies constitutional symptoms. No other pedal complaints at this time. Objective Data Objective Data Vital Signs: Vital Signs Temp Pulse Resp BP O2 Del Method 96.8 F L 62 16 97/62 Room Air 02/23/25 11:24 02/23/25 11:24 02/23/25 11:24 02/23/25 11:24 02/23/25 11:24 Oxygen Delivery Method Room Air Physical Exam Narrative Vascular: DP and PT pulses are palpable to left lower extremity. CFT is brisk. No erythema. Skin temperature is warm to cool from proximal ankle to distal digits to the left extremity. Neurological: Patient is quadriplegic and does not have light touch and does not have protective sensation. Dermatological: Full-thickness wound to the lateral aspect of the fifth metatarsal head is now healed. Negative probe to bone. Musculoskeletal:No pain to palpation of the full-thickness wound. No pain with calf pressure. Debridement Note Debridement Note Post-Debridement Measurements and Additional Note: Post-Debridement Measurements/Treatment - Nurse 1 - General Ulcer Assessment Start: 02/02/25 11:34 Freq: Status: Active Protocol: RUDI.LOWEXT Activity Type Activity Date Activity User E-sign Co-sign Detail Recorded Client Recorded Date Recorded By Document 02/02/25 11:34 [id number] 02/02/25 11:36 GM Document 02/09/25 11:21 CP [id number] 02/09/25 11:29 CP Document 02/23/25 11:24 [id number] 02/23/25 11:30 02/02/25 02/09/25 02/23/25 11:34 11:21 11:24 - Today's Visit Information Type of service Follow-up Visit Follow-up Visit Follow-up Visit (Physician/DRILL PRESS SET UP OPERATOR RADIAL (Physician/DRILL PRESS SET UP OPERATOR RADIAL (Physician/DRILL PRESS SET UP OPERATOR RADIAL ) ) ) Arrival Mode Wheelchair Wheelchair Wheelchair Transfer Assistance None None Patient Identification Verified (Name & Yes Yes Yes ) Vital Signs Temperature (97.8 F-99.1 F) 96.1 F L 97.3 F L 96.8 F L Temperature Source Temporal Temporal Temporal Pulse Rate (60-100) 58 L 60 62 Pulse Location Monitor Monitor Monitor Respiratory Rate (12-18) 16 16 16 Respiratory rate source Observation Observation Observation Oxygen Delivery Method Room Air Room Air Blood Pressure (90/60-120/80) 140/78 H 145/89 H 97/62 Blood Pressure Mean (mm Hg) 98 107 73 Source Monitor Monitor Monitor Position Supine Sitting Sitting Blood Pressure Location Left Arm Left Forearm Left Forearm History Since Last Visit- (Skip if this is Patient's initial visit) Have you changed medications since your No No No last visit? Any new allergies or adverse reactions No No No Had a fall/change in ADL's that may No No No increase risk of falls Signs or symptoms of abuse and/or No No No neglect since last visit Have you been in the hospital since your No No No last visit? Has dressing in place as prescribed Yes Yes Yes Has compression in place as prescribed Yes N/A N/A Has offloadiing in place as prescribed N/A N/A N/A Experienced any changes in pain level or No No management Left Footwear Regular Shoe Regular Shoe Right Footwear Regular Shoe Regular Shoe Pain Scale: 0-10 Numeric Is Patient Pain Free? Yes Yes Yes - Nurse 1 - General Ulcer Measurement Start: 02/02/25 11:34 Freq: Status: Active Protocol: Activity Type Activity Date Activity User E-sign Co-sign Detail Recorded Client Recorded Date Recorded By Document 02/02/25 11:34 [id number] 02/02/25 11:36 GM Document 02/09/25 11:21 CP [id number] 02/09/25 11:29 CP Document 02/23/25 11:24 [id number] 02/23/25 11:30 02/02/25 02/09/25 02/23/25 11:34 11:21 11:24 Wound Center Nurse 1 #1 lt lat foot -Current Size (cm) - Length 0.1 0.1 0.1 -Current Size (cm) - Width 0.1 0.1 0.1 -Current Size (cm) - Depth 0.1 0.1 0.1 -Total Square Cm 0.01 0.01 0.01 -Date of Last Picture (Recall this 02/09/25 02/23/25 field) -Photo Taken No Yes Yes -Epithelialization Large 67-100% -Tunneling No -Undermining/Tunneling No -Circular Undermining No -Exudate Amt None Present -Texture (Livier-wound Skin Appearance) No Abnormality -Moisture (Livier-wound Skin Appearance) No Abnormality -Color (Livier-wound Skin Appearance) No Abnormality -Temperature (Livier-wound Skin No Abnormality Appearance) (Pt Warm) -Tenderness on Palpation (Livier-wound No Skin Appearance) -Ulcer Cleansing Rinsed/ Irrigated with Saline -Anesthetic Used 5% Lidocaine Gel -Wound Comment(s) EPIFIX STILL HEALED INTACT WC - Nurse 2 - General Ulcer CM Notes Start: 02/02/25 11:34 Freq: Status: Active Protocol: Activity Type Activity Date Activity User E-sign Co-sign Detail Recorded Client Recorded Date Recorded By Document 02/02/25 11:51 [id number] 02/02/25 11:52 Document 02/09/25 11:39 [id number] 02/09/25 11:40 Document 02/23/25 11:56 [id number] 02/23/25 11:56 02/02/25 02/09/25 02/23/25 11:51 11:39 11:56 Wound Center Nurse 2 #1 lt lat foot -Correct Patient Yes Yes Yes -Correct Side, Site, Position No No No -Correct Procedure No No No -Procedure Performed No No No -Post Debridement (cm) - Length 0.1 0.1 0 -Post Debridement (cm) - Width 0.1 0.1 0 -Post Debridement (cm) - Depth 0.1 0.1 0 -Total Square (Post) (cm) 0.01 0.01 0 -Area of Debridement (cm) - Length 0.1 0.1 0 -Area of Debridement (cm) - Width 0.1 0.1 0 -Total Square (Area) (cm) 0.01 0.01 0 -Wound/Ulcer Outcome Not Healed Healed- Healed- Epithelialized Epithelialized Pain Scale: 0-10 Numeric Is Patient Pain Free? Yes Yes Yes - Nurse 3 - General Ulcer D/C NN Start: 02/02/25 11:34 Freq: Status: Active Protocol: Activity Type Activity Date Activity User E-sign Co-sign Detail Recorded Client Recorded Date Recorded By Document 02/02/25 11:52 DARIN [id number] 02/02/25 11:53 Document 02/09/25 11:40 [id number] 02/09/25 11:46 Document 02/23/25 11:56 [id number] 02/23/25 11:56 02/02/25 02/09/25 02/23/25 11:52 11:40 11:56 Wound Care Center Nurse 3 #1 lt lat foot -Ulcer Cleansing Rinsed/ Rinsed/ Irrigated with Irrigated with Saline Saline -Foul Odor after Cleansing No No -Primary Dressing Applied Silicone Border Silicone Border Foam 4x4 Foam 4x4 -Silicone Border Foam 4x4 1 1 LLE -Tubular Bandage Single Layer -Size of Tubigrip Used Size D -Size D ($) 0 Pain Scale: 0-10 Numeric Is Patient Pain Free? Yes Yes Yes - Visit Discharge Discharge Condition Stable Stable Stable Ambulatory Status Wheelchair Wheelchair Wheelchair Transportation Private Auto Private Auto Accompanied by Medication Reconcilliation completed & Yes No Yes provided to patient/care provider Clinical Summary of Care Provided Yes No Yes Assessment/Plan Assessment/Plan (1) Non-pressure chronic ulcer of other part of left foot with necrosis of muscle: CODE(S): L97.523 - Non-pressure chronic ulcer of other part of left foot with necrosis of muscle PLAN: Patient was examined and evaluated. All findings were discussed with the patient. All questions were answered to the patient's satisfaction. Patient is wound is now healed. Patient will continue to offload as discussed. He will be discharged from wound care center today. He left the office pleased this visit. Patient will follow-up as needed. (2) Other hereditary and idiopathic neuropathies: CODE(S): G60.8 - Other hereditary and idiopathic neuropathies
== END 2025-03-04 23:59 | disposition home or self-care (01) ==
LOC: WC 11:15
PROVIDERS: PCP Family Medicine; Referring Provider Family Medicine; Visit Provider Podiatrist Foot & Ankle Surgery
DX: L97.523 Non-pressure chronic ulcer of other part of left foot with necrosis of muscle (principal); G82.50 Quadriplegia, unspecified; G60.8 Other hereditary and idiopathic neuropathies
CPT/HCPCS: 99213; G0463

== ENCOUNTER → 2025-03-18 | Outpatient (CLI) | payer MEDICAID, SELFPAY ==
--- OUTSIDE RECORDS SUMMARY | 2025-03-18 20:29 | XMS RPT_ITS | CCD ---
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 Name Role Phone ALICIA DUBON Unavailable Unavailable ALICIA DUBON Unavailable Unavailable Unavailable Primary Care Provider Unavailabl e No, Physician Primary Care Provider Unavailabl e LEONID GEORGE Referring Unavailable SIVA FIORE Attending Unavailable SIVA FIORE Admitting Unavailable CONSULT, REHAB PSYCHOLOG[facility] Consulting Roberto Bell MD, Markel Primary Care Provider Arabella MEDINA, Markel Primary Care Provider Ekaterina MEDINA, Cristopher Unavailable MARKEL BELL Primary Care Unavailable KWAN OVIEDO Referring Unavailable FAIR, KWAN CHAWLA Attending Unavailable MARKEL BELL Primary Care Unavailable NO, PHYSICIAN Primary Care Unavailable KWAN OVIEDO Attending Unavailable NO, PHYSICIAN Primary Care Unavailable GUILLERMO LUA Attending Unavail able NO, PHYSICIAN Primary Care Unavailable ZAIRA WALKER Admitting Unavailable ZAIRA WALKER Attending Unavailable TAVARES WILSON Attending Unavailable MARKEL BELL Primary Care Unavailable MARKEL BELL Primary Care Unavailable TANYA NICOLE Admitting Unavailable TANYA NICOLE Attending Unavailable LEONID GEORGE Admitting Unavailabl e NO, PHYSICIAN Primary Care Unavailable BENOIT COE Attending Unavailab ELIZABETH Nesbitt Consulting Unavailabl e DAY, ARYA FARMER Consulting Unavailable H AND V, OPG Consulting Unavailable HILL MADSEN Consulting Unavaaarti alcocer NO, PHYSICIAN Primary Care Unavailable MELITON MCPHERSON Attending Unavailab MELITON Young Referring Unavailab kira Gu PT, Maxine Unavailable Oracio OTR/L, Cathy Unavailable UnavailMarkel Moon Primary Care Provider Neelima Rockwell DO Unavailable Radha MEDINA, Sen Unavailable Inga MEDINA, Darnell Unavailable Alberto PT, Irene Unavailable Vitakis PharmD, Cindy Unavailable Unavailabl e Aleyda fashion model, Emily Unavailable Unavai carlyn Gifford, Nayana Unavailable Unavailable David PT, Kaleigh Unavailable Unavailable Ron MEDINA, Shruthi Mercado Unavailable [phone] Maurisio MEDINA, Ignacio Mata Unavailable Vitakis PharmD, Cindy Unavailable Unavailarturo e Aleyda fashion model, Emily Unavailable Roberto Gifford, Nayana Unavailable Unavailable Arabella MEDINA, Dr. Markel Soto Primary Care Provider Arabella MEDINA, Dr. Markel Soto Attending Provider Arabella MEDINA, Dr. Markel Soto Referring Provider [phone] Reg DPM, Dr. Porter Attending Provider [phone] Reg CONROYM, Dr. Porter Referring Provider Neel DPM, Dr. Saldana Attending Provider Neel DPM, Dr. Saldana Other Provider Rosalina Ruggiero Attending Provider Neelima Villarreal MD Unavailable Cristine Carpio MD Unavailable Dr. Markel Bell MD Primary Care Provider Dr. Markel Bell MD Referring Provider Dr. Markel Bell MD Attending Provider Dr. Markel Bell MD Primary Care Physician Reg DPM, Dr. Porter Attending Physician [phone] Arabella MEDINA, Dr. Markel Soto Referring Provider [phone] Neel CONROYM, Dr. Saldana Attending Physician Neel DPM, Dr. Saldana Nurse Practitioner Rosalina Ruggiero Attending Physician Arabella MEDINA, Dr. Markel Soto Attending Physician Nayana Gifford Unavailable Unavailable Bobkate OTD, OTR/L, CHT, Kwan Unavailable Unavailable Hugo PharmD, Guevara Unavailable Unavailable Tequila fashion model, Celena Unavailable Unavailable Brannon DO, Neelima Unavailable Unavailable Sen Garcia MD Unavailable Unavailable SchMarkel del valle Referring Unavailable Les Shaikh Attending Unavailable Markel Bell Primary Care Unavailable SchMarkel del valle Attending Unavailable Schinyamilka, Markel E Primary Care Unavailable SchMarkel del valle Referring Unavailable ANDRA, Adriana Consulting Unavailable Markel Bell Attending Unavailable Markel Bell Primary Care Unavailable SchMarkel del valle Referring Unavailable Markel Bell Attending Unavailable SchMarkel del valle Primary Care Unavailable SchMarkel del valle Referring Unavailable SchMarkel del valle Attending Unavailable Markel Bell Primary Care Unavailable Les Shaikh Consulting Unavailable SchMarkel del valle Primary Care Unavailable SchMarkel del valle Referring Unavailable Rosalina Bergman Attending Unavailable SchMarkel del valle Attending Unavailable SchMarkel del valle Primary Care Unavailable SchMarkel del valle Referring Unavailable SchMarkel del valle Referring Unavailable SchMarkel del valle Primary Care Unavailable German Finney Attending Unavailable German Finney Referring Unavailable SchMarkel del valle Primary Care Unavailable German Finney Attending Unavailable Markel Bell Referring Unavailable Les Shaikh Attending Unavailable Markel Bell Primary Care Unavailable Les Shaikh Attending Unavailable Markel Bell Primary Care Unavailable SchMarkel del valle Referring Unavailable Les Shaikh Attending Unavailable SchMarkel del valle E Primary Care Unavailable SchMarkel del valle Referring Unavailable SchMarkel del valle Attending Unavailable SchMarkel del valle Primary Care Unavailable SchMarkel del valle Referring Unavailable SchMarkel del valle Primary Care Unavailable Cristine Norton NP Attending Unavailable Markel Bell Referring Unavailable SchMarkel del valle Referring Unavailable Les Shaikh Attending Unavailable Schinner, Markel E Primary Care Unavailable Schinner, Markel E Referring Unavailable Les Shaikh Attending Unavailable Schinner, Markel E Primary Care Unavailable PROVIDER, UNKNOWN Attending Unavailable PROVIDER, UNKNOWN Admitting Unavailable SCHINNER, MARKEL Primary Care Unavailable PROVIDER, UNKNOWN Attending Unavailable PROVIDER, UNKNOWN Admitting Unavailable DAQUAN FIORE III Referring Unavaila ble CRISTINE CARPIO Attending Unavailable PROVIDER, UNKNOWN Admitting Unavailable ORACIO, CATHY Referring Unavailable SCHINNER, MARKEL Primary Care Unavailable SERGE, CRISTINE Attending Unavailable PROVIDER, UNKNOWN Admitting Unavailable SCHINNER, MARKEL Primary Care Unavailable KALEIGH FRANK Referring Unavailable PROVIDER, UNKNOWN Attending Unavailable PROVIDER, UNKNOWN Admitting Unavailable SCHINNER, MARKEL Primary Care Unavailable PROVIDER, UNKNOWN Admitting Unavailable ORACIO, CATHY Referring Unavailable SHRUTHI SHEFFIELD Attending Unavailable SCHINNER, MARKEL Primary Care Unavailable PROVIDER, UNKNOWN Admitting Unavailable ORACIO, CATHY Referring Unavailable IGNACIO BONILLA Attending Unavailable SCHINNER, MARKEL Primary Care Unavailable PROVIDER, UNKNOWN Attending Unavailable PROVIDER, UNKNOWN Admitting Unavailable SCHINNER, MARKEL Primary Care Unavailable SERGE, CRISTINE Referring Unavailable PROVIDER, UNKNOWN Attending Unavailable PROVIDER, UNKNOWN Admitting Unavailable SCHINNER, MARKEL Primary Care Unavailable PROVIDER, UNKNOWN Admitting Unavailable IGNACIO BONILLA Attending Unavailable SCHINNER, MARKEL Primary Care Unavailable PROVIDER, UNKNOWN Admitting Unavailable NEELIMA ROCKWELL Attending Unavailable NEELIMA ROCKWELL Referring Unavailable SCHINNER, MARKEL Primary Care Unavailable PROVIDER, UNKNOWN Attending Unavailable PROVIDER, UNKNOWN Admitting Unavailable ORACIO, CATHY Referring Unavailable SCHINNER, MARKEL Primary Care Unavailable PROVIDER, UNKNOWN Admitting Unavailable NEELIMA VILLARREAL Attending Unavailable NEELIMA VILLARREAL Referring Unavailable SCHINNER, MARKEL Primary Care Unavailable PROVIDER, UNKNOWN Attending Unavailable PROVIDER, UNKNOWN Admitting Unavailable SCHINNER, MARKEL Primary Care Unavailable MAXINE GU Attending Unavailable SERGE, CRSITINE Referring Unavailable PROVIDER, UNKNOWN Admitting Unavailable SCHINNER, MARKEL Primary Care Unavailable PROVIDER, UNKNOWN Admitting Unavailable NEELIMA VILLARREAL Attending Unavailable NEELIMA VILLARREAL Referring Unavailable SCHINNER, MARKEL Primary Care Unavailable CRISTOPHER WALKER Referring Unavailable PROVIDER, UNKNOWN Attending Unavailable PROVIDER, UNKNOWN Admitting Unavailable SCHINNER, MARKEL Primary Care Unavailable PROVIDER, UNKNOWN Attending Unavailable PROVIDER, UNKNOWN Admitting Unavailable ORACIO, CATHY Referring Unavailable SCHINNER, MARKEL Primary Care Unavailable PROVIDER, UNKNOWN Attending Unavailable PROVIDER, UNKNOWN Admitting Unavailable SCHINNER, MARKEL Primary Care Unavailable MAXINE GU Attending Unavailable PROVIDER, UNKNOWN Admitting Unavailable COLACHIS III, DAQUAN Segura Referring Unavaila ble PROVIDER, UNKNOWN Admitting Unavailable CATHY NARAYANAN Referring Unavailable MARKEL BELL Primary Care Unavailable MAXINE GU Attending Unavailable PROVIDER, UNKNOWN Attending Unavailable PROVIDER, UNKNOWN Admitting Unavailable COLACHIS III, DAQUAN Segura Referring Unavaila MARKEL Arreola Primary Care Unavailable MAXINE GU Attending Unavailable CRISTINE CARPIO Referring Unavailable PROVIDER, UNKNOWN Admitting Unavailable MARKEL BELL Primary Care Unavailable PROVIDER, UNKNOWN Admitting Unavailable COLACHIS III, DAQUAN Segura Referring Unavaila ble MAXINE GU Attending Unavailable EKATERINACRISTOPHER Attending Unavailable PROVIDER, UNKNOWN Admitting Unavailable COLACHIS III, DAQUAN Segura Referring Unavaila ble PROVIDER, UNKNOWN Attending Unavailable PROVIDER, UNKNOWN Admitting Unavailable COLACHIS III, DAQUAN CAlida Referring Unavaila ble SCHIVON, MARKEL Primary Care Unavailable PROVIDER, UNKNOWN Attending Unavailable PROVIDER, UNKNOWN Admitting Unavailable CATHY NARAYANAN Referring Unavailable MARKEL BELL Primary Care Unavailable CRISTINE CARPIO Referring Unavailable PROVIDER, UNKNOWN Attending Unavailable PROVIDER, UNKNOWN Admitting [facility] Primary Care Unavailable MAXINE GU Attending Unavailable SERGECRISTINE ARGUELLES Referring Unavailable PROVIDER, UNKNOWN Admitting [facility]available [facility] Primary Care Unavailable Medications Current Medications Medication Drug Class(es) Dates Sig (Normalized) Sig (Original) acetaminophen 325 mg oral tablet (20 sources) Start: 03-22-2024 take 3 tablets by mouth three times daily as needed acetaminophen (TYLENOL) 325 mg tablet Take 975 mg by mouth 3 times daily as needed. 03/22/2024 Active take 1 tablet by shelly th twice daily as needed for pain acetaminophen (TYLENOL ER) 650 MG CR tab let Take 1 (one) tablet (650 mg total) by mouth 2 (two) times a day as needed for pain . Active baclofen 5 mg oral tablet (20 sources) gamma-Aminobutyric Acid-ergic Agonist Start: 09-14-2024 Start: 06-14-2024 take 1 tablet by shelly th three times daily baclofen (LIORESAL) 10 MG tablet Take 1 Tablet by mouth 3 times daily. 90 Tablet 3 06/14/2024 Active Start: 03-22-2024 End: 06-14-2024 take 2 tablets by mouth twice daily Baclofen 5 MG TABS Take 10 mg by mouth 2 times daily. 03/22/2024 06/14/2024 Discontinued Start: 03-22-2024 take 2 tablets by mo [facility] once daily in the morning, then take 1 tablet by mouth once daily at lunch, then take 2 tablets by mouth at bedtime Baclofen 5 MG tablet Take 2 tablets by mouth daily every morning AND 1 tablet daily at lunch AND 2 tablets at bedtime. 150 tablet 2 03/22/2024 Active take 1 tablet by shelly three times daily baclofen 5 mg Tab Take 1 (one) tablet (5 mg total) by mouth 3 (three) times a day . Active benzocaine 4 mg/ml / docusat e sodium 56.6 mg/ml enema (20 sources) Standardized Chemical Allergen Start: 09-14-2024 Start: 03-22-2024 End: 04-22-2024 Benzocaine-Docusate Sodium 2 0-283 MG ENEM Insert 1 Enema in the rectum daily. 03/22/2024 04/22/2024 Active Enemeez Plus 20- 283 MG ENEM Indications: Neurogenic bowel USE ONCE DAILY IN RECTUM Active buPROPion hydrochloride 100 mg oral tablet (20 sources) Aminoketone Start: 09-14-2024 Start: 02-18-2024 End: 06-20-2024 take 1 tablet by mouth every twelve hours buPROPion (WELLBUTRIN) 100 MG tablet Take 100 mg by mouth every 12 hours. 02/18/2024 Active Start: 02-18-2024 take 1 tablet by shelly twice daily buPROPion (WELLBUTRIN) 100 MG tablet Take 1 (one) tablet (100 mg total) by mouth 2 (two) times a day . 60 tablet 02/18/2024 Active calcium phosphate/vitamin D2 (CALCIUM-VITAMIN D2 ORAL) (1 source) take 2400 [IU] by mouth once daily calcium phosphate/vitamin D2 (CALCIUM-VITAMIN D2 ORAL) Take 2,400 Units by mouth daily . Active cholecalciferol 0.05 mg oral capsule (20 sources) Vitamin D Start: End: 6 take 1 capsule by mouth once daily in the morning Cholecalciferol (vitamin D3) 50 MCG (2000 UT) CAPS capsule Indications: Vitamin D deficiency disease Take 1 Capsule by mouth daily. 90 Capsule 1 12/04/2024 9:02 AM EDT 11/30/2024 05/29/2025 Active Start: 09-14-2024 take 1 tablet by shelly th once daily Start: 02-19-2024 End: 11-30-2024 cholecalciferol (Vitamin D-[address]) 25 MCG (1000 UT) tablet Take 1,000 Units by mouth daily. 02/19/2024 11/30/2024 Discontinued (Dose adjustment) Start: 02-19-2024 take 1 tablet by shelly th once daily cholecalciferol, vitamin D3, 1,000 unit tablet Take 1 (one) tablet (1,000 Units total) by mouth daily Start: 02/19/24. 30 tablet 02/19/2024 Active ciprofloxacin 750 mg oral tablet (20 sources) Quinolone Antimicrobial Start: 11-17-2024 take 1 tablet by mouth twice daily ciprofloxacin (CIPRO) 750 MG tablet Indications: Neurogenic bladder TAKE 1 TABLET BY MOUTH 2 TIMES A DAY FOR 14 DAYS 11/17/2024 Active cyclobenzaprine hydrochloride 10 mg oral tablet (4 sources) Muscle Relaxant Start: 01-27-2025 take 1 tablet by mouth every eight hours as needed cyclobenzaprine (FLEXERIL) 10 MG tablet Take 10 mg by mouth every 8 hours as needed. 01/27/2025 Active diclofenac sodium 0.01 mg/mg topical gel (20 sources) Nonsteroidal Anti-inflammatory Drug Start: 09-14-2024 Start: 03-22-2024 diclofenac (VO LTAREN) 1 % GEL topical gel Apply 2 g topically 4 times daily. 03/22/2024 Active DISABILITY PLACARD (1 source) Start: 03-21-2024 DISABILITY GINA CARD Disability placard end date 04/04/2025 Dx Spinal Cord Injury 1 Each 03/21/2024 Active disability placard (19 sources) Start: 03-21-2024 disability gina card Indications: Tetraplegia (HCC) Disability placard end date 04/04/2025 Dx Spinal Cord Injury 03/21/2024 Active Start: 03-21-2024 disability gina card Disability placard end date 04/04/2025 Dx Spinal Cord Injury 03/21/2024 Active Docusate (20 sources) Docusate Sodium (ENEMEEZ MINI RECTAL) Insert in the rectum. Active docusate sodium 50 mg / sennosides, prison 8.6 mg oral tablet (1 source) take 1 tablet by mouth once daily as needed for constipation senna-docusate (sennosides-docusate sodium) 8.6-50 mg Indications: constipation Take 1 (one) tablet by mouth daily as needed for constipation Reasons: constipation. Active doxycycline hyclate 100 mg oral tablet (11 sources) Tetracycline-clas s Drug Start: End: doxycycline (VIBRA-TABS) 100 MG tablet 100 mg. 10/05/2024 Active ergocalciferol 1.25 mg oral capsule (20 sources) Provitamin D2 Compound Start: End: take 1 capsule by mouth every week vitamin D2 ergocalciferol (DRISDOL) 1.25 MG (75448 UT) capsule Indications: Vitamin D deficiency disease Take 1 Capsule by mouth once weekly. 4 Capsule 1 03/09/2025 05/08/2025 Active Start: 09-14-2024 End: 03-09-2025 vitamin D2 ergocalciferol (D RISDOL) 1.25 MG (22256 UT) capsule 2,500 mcg. 09/14/2024 03/09/2025 Discontinued (Reorder (*won't e-cancel)) Start: 09-14-2024 Start: 03-22-2024 End: 11-30-2024 take 1.25 mg by mouth every week vitamin D2 ergocalciferol (DRISDOL) 1.25 MG (36826 UT) capsule Take 50,000 Units by mouth once weekly. 03/22/2024 11/30/2024 Discontinued Start: 03-22-2024 End: 04-13-2024 Vitamin D, Ergocalciferol, 5 0000 units capsule Take 1 capsule by mouth every 7 days for 21 days. 3 capsule 03/22/2024 04/13/2024 Active gabapentin 600 mg oral tablet (20 sources) Anti-epileptic Agent Start: 11-25-2024 take 1 tablet by mouth three times daily gabapentin (NEURONTIN) 600 MG tablet Indications: Neuropathic pain Take 600 mg by mouth 3 times daily. 11/25/2024 Active Start: 03-22-2024 End: 11-30-2024 take 1 capsule by mouth three times daily Start: 02-18-2024 gabapentin (NE URONTIN) 300 MG capsule Take 1 (one) capsule (300 mg total) by mouth every 8 (eight) hours (Days supply per fill: 3) for 3 days . 9 capsule 02/18/2024 Active melatonin 3 mg oral capsule (20 sources) Start: 09-14-2024 take 1 capsule by mouth at bed time Start: 02-18-2024 take 1 tablet by shelly th at bedtime melatonin 3 MG TABS tablet Take 3 mg by mouth at bedtime. 02/18/2024 Active midodrine hydrochloride 5 mg oral tablet (20 sources) alpha-Adrenergic Agonist Start: 03-23-2024 midod rine (PROAMATINE) 5 MG tablet Take 5 mg by mouth 2 times daily. Takes 7.5mg in the morning and 5mg of the afternoon 03/23/2024 Active Start: 03-23-2024 midodrine 5 MG tablet Take 1 tablet by mouth daily every morning AND 1 and 1/2 tablets daily at noon. 75 tablet 2 03/23/2024 Active Start: 02-18-2024 take 1 tablet by shelly th every six hours midodrine (PROAMATINE) 10 MG tablet Take 1 (one) tablet (10 mg total) by mouth every 6 (six) hours . 120 tablet 02/18/2024 Active 24 hr mirabegron 25 mg extended release oral tablet (19 sources) beta3-Adrenergic Agonist Start: 11-25-2024 take 1 tablet by mouth once daily Myrbetriq 25 MG TB24 tablet Indications: Neurogenic bladder Take 25 mg by mouth daily. 11/25/2024 Active naloxone hydrochloride 40 mg/ml nasal spray (20 sources) Opioid Antagonist Start: 03-22-2024 End: 03-22-2025 naloxone 4 mg/0.1 mL nasal liquid Use 1 [place] in each nostril. 03/22/2024 03/22/2025 Active Start: 03-22-2024 End: 03-22-2025 naloxone 4 MG/0.1ML 1 spray by Nasal route As directed PRN for Opioid Reversal. [place] into the nose as directed. Call 911. If no response in 2 minutes use a new nasal spray in other nostril. Repeat until help arrives. 2 Each 03/22/2024 03/22/2025 Active oxyCODONE hydrochloride 5 mg oral tablet (20 sources) Opioid Agonist Start: 09-14-2024 take 1 tablet by mouth every eight hours as needed for pain Start: 03-22-2024 take 1 tablet by shelly th every four hours as needed oxyCODONE 5 MG immediate release tablet Take 5 mg by mouth every 4 hours as needed. 03/22/2024 Active pantoprazole 20 mg delayed release oral tablet (20 sources) Proton Pump Inhibitor Start: 11-25-2024 take 1 tablet by mouth once daily before breakfast pantoprazole (PROTONIX) 20 MG tablet TAKE 1 TABLET BY MOUTH DAILY 30-40 MINUTES BEFORE BREAKFAST 11/25/2024 Active Start: 02-19-2024 End: 11-30-2024 take 1 tablet by mouth once daily pantoprazole (PROTONIX) 40 MG tablet Take 40 mg by mouth daily. 02/19/2024 11/30/2024 Discontinued polyethylene glycol 3350 79487 mg powder for oral solution (1 source) Osmotic Laxative Start: 03-22-2024 End: 04-21-2024 take 1 dose by mouth once daily as needed Polyethylene glycol 17 g Pack packet Take 1 packet by mouth daily mixed in beverage as needed. 30 Each 03/22/2024 04/21/2024 Active polyvinyl alcohol 0.014 ml/ml / povidone 6 mg/ml ophthalmic solution (20 sources) Start: 03-22-2024 take 1 drop(s) into the eye(s) twice daily Polyvinyl Alcohol-Povidone PF 1.4-0.6 % SOLN 1 Drop by Ophthalmic route 2 times daily. 03/22/2024 Active Sennosides (Senna) 8.6 mg tablet (6 sources) Start: 09-14-2024 take 1 tablet by mouth twice daily as needed for constipation Sennosides (Senna) 8.6 mg tablet Active 8.6 mg PO TWICE DAILY NEEDED as needed for constipation September 14, 2024 12:00am sennosides, prison 8.6 mg oral capsule (20 sources) Start: 09-14-2024 sennosides 8.6 MG capsule 8.6 mg. 09/14/2024 Active Start: 09-14-2024 take 1 tablet by shelly th twice daily as needed for constipation Start: 03-22-2024 End: 04-22-2024 take 1 tablet by mouth once daily as needed sennosides 8.6 MG tablet Take 1 tablet by mouth daily as needed. 30 tablet 03/22/2024 04/22/2024 Active Sodium Phosphate Dibasic TAMIA (4 sources) Sodium Phosphate Dibasic TAMIA Use. Active sodium phosphate, dibasic 59.3 mg/ml / sodium phosphate, monobasic 161 mg/ml enema (7 sources) Start: tolterodine tartrate 1 mg oral tablet (20 sources) Cholinergic Muscarinic Antagonist Start: take 1 tablet by mouth twice daily tolterodine (DETROL) 1 MG tablet Take 1 mg by mouth 2 times daily. 03/22/2024 Active take 1 capsule by mouth twice da omid tolterodine (Detrol LA) 4 MG 24 hr capsule Take 1 mg by mouth 2 (two) times a day . Active Vibegron (7 sources) Start: 09-14-2024 take 1 tablet by mouth once da omid Start: 09-14-2024 take 1 tablet by shelly th once daily Vibegron (Vibegron 75 Mg Tablet) 75 mg tablet Active 75 mg PO DAILY September 14, 2024 12:00am Completed/Discontinued Medications Medication Drug Class(es) Dates Sig (Normalized) Sig (Original) benzocaine 15 mg / menthol 3.6 mg oral lozenge (2 sources) Standardized Chemical Allergen Start: End: Benzocaine-Menthol 15-3.[address] 1 Lozenge between the cheeks every 2 hours as needed. 03/22/2024 11/30/2024 Discontinued abobotulinumtoxina 500 unt injection (8 sources) Acetylcholine Release Inhibitor Start: End: 5 abobotulinumtoxinA (DYSPORT) 500 units injection Start: 03-09-2025 End: 03-09-2025 inject 1 dose by intramuscular injection once 1,500 Units, Intramuscular, ONCE, 1 dose, On Fri03/09/25 at 1600 Start: 03-03-2025 abobotulinumto xinA (Dysport) 500 units SOLR injection Inject 1,500 Units into the muscle every 3 months. 3 Each 3 03/09/2025 8:06 AM EST 03/03/2025 Active Start: 11-19-2024 End: 11-19-2024 abobotulinumtoxinA (DYSPORT) 500 units injection Start: 11-19-2024 End: 11-19-2024 inject 1 dose by intramuscular injection once 500 Units, Intramuscular, ONCE, 1 dose, On Fri11/19/24 at 1430 codeine phosphate 2 mg/ml / guaiFENesin 20 mg/ml oral solution (8 sources) Opioid Agonist Start: 2021 End: 09-14-2024 take 1 mL by mouth every six hours as needed for cough Codeine-Guaifenesin (Guaifenesin Ac) 10-100 mg/5 mL liquid Discontinued 5 mL PO EVERY 6 HOURS as needed for cough 118 2021 1:00am September 14, 2024 10:56am Start: 2021 take 1 mL by mouth e very six hours before mealtime Codeine-Guaifenesin (Guaifenesin Ac) 10-100 mg/5 mL liquid Active 5 ML PO EVERY 6 HOURS 2021 12:00am 1 ml dexamethasone phosphate 4 mg/ml injection (10 sources) Corticosteroid Start: 2024 End: 2024 dexAMETHasone (DECADRON) injection 4 mg Start: 2024 End: 2024 4 mg, Intra-articular, ONCE NEEDED, 1 dose, Starting on Eun 04/08/24 at 1120, Until Eun 04/08/24 at 1120 Start: 2021 End: 09-14-2024 take 1 tablet by mouth once daily Dexamethasone (Decadron) 6 mg tablet Discontinued 6 mg PO DAILY 2021 1:00am September 14, 2024 10:56am 0.4 ml enoxaparin sodium 100 mg/ml prefilled syringe (2 sources) Low Molecular Weight Heparin Start: 03-22-2024 End: 11-30-2024 enoxaparin (LOVENOX) 40 MG/0.4ML injection Inject 40 mg under the skin every 12 hours. 03/22/2024 11/30/2024 Discontinued ibuprofen 800 mg oral tablet (8 sources) Nonsteroidal Anti-inflammatory Drug Start: 02-02-2017 End: 02-04-2017 take 1 tablet by mouth three times daily Ibuprofen (Motrin) 800 MG tablet Discontinued 800 mg PO THREE TIMES A DAY 21 0 February 02, 2017 12:00am February 04, 2017 4:20pm 10 ml lidocaine hydrochloride 10 mg/ml injection (20 sources) Antiarrhythmic, Amide Local Anesthetic Start: 2024 End: 2024 Lidocaine (XYLOCAINE) 10 mg/mL injection 4 mL Start: 2024 End: 2024 4 mL, Intra-articular, ONCE NEEDED, 1 dose, Starting on Eun 04/08/24 at 1120, Until Eun 04/08/24 at 1120 Start: 03-22-2024 lidocaine (LID ODERM) 4 % PTCH patch Indications: Left shoulder pain, unspecified chronicity Place 1 Patch on the skin. 03/22/2024 Active meloxicam 7.5 mg oral tablet (11 sources) Nonsteroidal Anti-inflammatory Drug Start: 2024 End: 06-14-2024 meloxicam (MOBIC) 7.5 MG tablet Take 7.5-15 mg by mouth daily. 2024 06/14/2024 Discontinued (Therapy completed) menthol 0.04 mg/mg topical gel (16 sources) Start: 11-30-2024 End: 02-28-2025 Menthol, Topical Analgesic, (Biofreeze Roll-On) 4 % GEL Indications: Left shoulder pain, unspecified chronicity Apply 1 Application externally 2 times a day. 74 mL 2 11/30/2024 02/28/2025 predniSONE 20 mg oral tablet (16 sources) Start: 02-02-2017 End: 02-06-2017 take 3 tablets by mouth once daily Prednisone (Deltasone) 20 MG tablet Discontinued 60 mg PO DAILY February 04, 2017 4:20pm February 06, 2017 2:37pm STEOID sildenafil 50 mg oral tablet (20 sources) Phosphodiesterase 5 Inhibitor Start: 06-14-2024 End: 09-24-2024 sildenafil citrate (VIAGRA) 50 MG tablet Take 1 Tablet by mouth as needed for Erectile Dysfunction (30-60 min prior to sexual activity, max 100 mg/day). 20 Tablet 2 06/14/2024 09/24/2024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 Performed By: #### M 100.2200 #### [facility] [address] [place], [address] Lymphocytes/100 WBC (Bld) 28.2 % Normal 19-41 [facility] Comment on above: Order Comment: Order Date: 03/26/24Order Info: 183- - CBCD Performed By: #### M 100.2200 #### [facility] [address] [place], [address] MCH (RBC) [Entitic mass] 26.3 pg Low 27.0-32.0 [facility] Comment on above: Order Comment: Order Date: 03/26/24Order Info: 183- - CBCD Performed By: #### M 100.2200 #### [facility] [address] [place], [address] MCHC (RBC) [Mass/Vol] 30.3 g/dL Low 32-36 [facility] Comment on above: Order Comment: Order Date: 03/26/24Order Info: 183- - CBCD Performed By: #### M 100.2200 #### [facility] [address] [place], [address] MCV (RBC) [Entitic vol] 86.8 fL Normal 80-94 [facility] Comment on above: Order Comment: Order Date: 03/26/24Order Info: 0184-1 - CBCD Performed By: #### M 100.2200 #### [facility] [address] [place], [address] Monocytes/100 WBC (Bld) 7.4 % Normal 0-10 [facility] Comment on above: Order Comment: Order Date: 03/26/24Order Info: 0184-1 - CBCD Performed By: #### M 100.2200 #### [facility] [address] [place], [address] Neutrophils/100 WBC (Bld) 53.0 % Normal 47-70 [facility] Comment on above: Order Comment: Order Date: 03/26/24Order Info: 0184-1 - CBCD Performed By: #### M 100.2200 #### [facility] [address] [place], [address] Nucleated RBC (Bld) [#/Vol] 0 10*3/uL Normal 0-5 [facility] Comment on above: Order Comment: Order Date: 03/26/24Order Info: 0184-1 - CBCD Performed By: #### M 100.2200 #### [facility] [address] [place], [address] Platelet mean volume (Bld) [Entitic vol] 10.4 fL Normal 6.2-12.0 [facility] Comment on above: Order Comment: Order Date: 03/26/24Order Info: 0184-1 - CBCD Performed By: #### M 100.2200 #### [facility] [address] [place], [address] Platelets (Bld) [#/Vol] 258 10*3/uL Normal 150-450 [facility] Comment on above: Order Comment: Order Date: 03/26/24Order Info: 183-05 - CBCD Performed By: #### M 100.2200 #### [facility] [address] [place], [address] RBC (Bld) [#/Vol] 4.18 10*6/uL Low 4.6-6.2 [facility] Comment on above: Order Comment: Order Date: 03/26/24Order Info: 183-05 - CBCD Performed By: #### M 100.2200 #### [facility] [address] [place], [address] RDW SD 49.1 fl High 35.1-43.9 [facility] Comment on above: Order Comment: Order Date: 03/26/24Order Info: 183-05 - CBCD Performed By: #### M 100.2200 #### [facility] [address] [place], [address] WBC (Bld) [#/Vol] 9.8 10*3/uL Normal 4.4-11.0 [facility] Comment on above: Order Comment: Order Date: 03/26/24Order Info: 183-05 - CBCD Performed By: #### M 100.2200 #### [facility] [address] [place], [address] Comprehensive Metabolic Prof ilon 03-26-2024 Albumin [Mass/Vol] 2.9 g/dL Low 3.2-5.0 [facility] Comment on above: Order Comment: Order Date: 03/26/24Order Info: 0786-1 - CMPOrder Info: 2500-7 - TIBCOrder Info: 2498-4 - FEOrder Info: 2276-4 - FEROrder Info: 2284-8 - FOLSN Performed By: #### M 100.2200 #### [facility] [address] [place], [address] Albumin/Globulin [Mass ratio] 0.8 {ratio} Low 0.9-2.4 [facility] Comment on above: Order Comment: Order Date: 03/26/24Order Info: 0786-1 - CMPOrder Info: 2499-11 - TIBCOrder Info: 2497-08 - FEOrder Info: 2275-08 - FEROrder Info: 2283-12 - FOLSN Performed By: #### M 100.2200 #### [facility] [address] [place], [place], [address] ALK P 96 U/L Normal 45-117 [facility] Comment on above: Order Comment: Order Date: 03/26/24Order Info: 0786-1 - CMPOrder Info: 2499-11 - TIBCOrder Info: [id number] - FEOrder Info: [id number] - FEROrder Info: 2283-12 - FOLSN Performed By: #### M 100.2200 #### [facility] [address] [place], [address] (212) ALT [Catalytic activity/Vol] 37 U/L Normal 16-61 [facility] Comment on above: Order Comment: Order Date: 03/26/24Order Info: 07-1 - CMPOrder Info: 2499-11 - TIBCOrder Info: 2497-08 - FEOrder Info: [id number] - FEROrder Info: 2283-12 - FOLSN Performed By: #### M 100.2200 #### [facility] [address] [place], [place], [address] AST [Catalytic activity/Vol] 13 U/L Low 15-37 [facility] Comment on above: Order Comment: Order Date: 03/26/24Order Info: 0786-1 - CMPOrder Info: 2499-11 - TIBCOrder Info: [id number] - FEOrder Info: [id number] - FEROrder Info: 2283-12 - FOLSN Performed By: #### M 100.2200 #### [facility] [address] [place], [place], [address] Bilirubin [Mass/Vol] 0.30 mg/dL Normal 0.20-1.00 [facility] Comment on above: Order Comment: Order Date: 03/26/24Order Info: 0786-1 - CMPOrder Info: 2499-7 - TIBCOrder Info: 2498-4 - FEOrder Info: 2276-4 - FEROrder Info: 2284-8 - FOLSN Result Comment: For patients on eltrombopag therapy, use of Dimension Benezett TBIL is not recommended. Performed By: #### M 100.2200 #### [facility] [address] [place], [place], [address] BUN/CRE 37.2 RATIO High 10-20 [facility] Comment on above: Order Comment: Order Date: 03/26/24Order Info: 07-1 - CMPOrder Info: 7 - TIBCOrder Info: [id number] - FEOrder Info: [id number] - FEROrder Info: 228-8 - FOLSN Performed By: #### M 100.2200 #### [facility] [address] [place], [place], [address] CA,Total 9.0 mg/dL Normal 8.5-10.1 [facility] Comment on above: Order Comment: Order Date: 03/26/24Order Info: 07-1 - CMPOrder Info: 7 - TIBCOrder Info: 2498-4 - FEOrder Info: [id number] - FEROrder Info: 228-8 - FOLSN Performed By: #### M 100.2200 #### [facility] [address] [place], [place], [address] Chloride [Moles/Vol] 106 mmol/L Normal 98-107 [facility] Comment on above: Order Comment: Order Date: 03/26/24Order Info: 0786-1 - CMPOrder Info: 7 - TIBCOrder Info: 2498-4 - FEOrder Info: [id number] - FEROrder Info: 2284-8 - FOLSN Performed By: #### M 100.2200 #### [facility] [address] [place], [place], [address] CO2 [Moles/Vol] 23.0 mmol/L Normal 21.0-32.0 [facility] Comment on above: Order Comment: Order Date: 03/26/24Order Info: 0786-1 - CMPOrder Info: 2500-7 - TIBCOrder Info: 2498-4 - FEOrder Info: [id number] - FEROrder Info: 228-8 - FOLSN Performed By: #### M 100.2200 #### [facility] [address] [place], [place], [address] Creatinine [Mass/Vol] 0.81 mg/dL Normal 0.70-1.30 [facility] Comment on above: Order Comment: Order Date: 03/26/24Order Info: 785- - CMPOrder Info: 7 - TIBCOrder Info: [id number] - FEOrder Info: [id number] - FEROrder Info: 2288 - FOLSN Result Comment: The validity of the calculated GFR GFRAA in patients over 70 years has not been determined. Clinical correlation is essential. Performed By: #### M 100.2200 #### [facility] [address] [place], [place], [address] EST GFR - AA 133 mL/min Normal >60 [facility] Comment on above: Order Comment: Order Date: 03/26/24Order Info: 07- - CMPOrder Info: 7 - TIBCOrder Info: [id number] - FEOrder Info: [id number] - FEROrder Info: 228-8 - FOLSN Result Comment: Afri can Iraqi GFR Calc Performed By: #### M 100.2200 #### [facility] [address] [place], [place], [address] GAP 8 Normal 5-15 [facility] Comment on above: Order Comment: Order Date: 03/26/24Order Info: 0786-1 - CMPOrder Info: 2500-7 - TIBCOrder Info: 2498-4 - FEOrder Info: [id number] - FEROrder Info: 2284-8 - FOLSN Performed By: #### M 100.2200 #### [facility] [address] [place], [address] GFR/1.73 sq M.predicted among non-blacks MDRD (S/P/Bld) [Vol rate/Area] 110 mL/min/{1.73_m2} Normal >60 [facility] Comment on above: Order Comment: Order Date: 03/26/24Order Info: 0786-1 - CMPOrder Info: 2499-7 - TIBCOrder Info: 2498-4 - FEOrder Info: 227-4 - FEROrder Info: 228-8 - FOLSN Result Comment: Non- GFR Calc Performed By: #### M 100.2200 #### [facility] [address] [place], [address] Globulin (S) [Mass/Vol] 3.6 g/dL Normal 2.2-4.2 [facility] Comment on above: Order Comment: Order Date: 03/26/24Order Info: [id number] - CMPOrder Info: 7 - TIBCOrder Info: [id number] - FEOrder Info: [id number] - FEROrder Info: 8 - FOLSN Performed By: #### M 100.2200 #### [facility] [address] [place], [address] Glucose [Mass/Vol] 87 mg/dL Normal 74-106 [facility] Comment on above: Order Comment: Order Date: 03/26/24Order Info: [id number] - CMPOrder Info: 7 - TIBCOrder Info: [id number] - FEOrder Info: 227-4 - FEROrder Info: [id number] - FOLSN Performed By: #### M 100.2200 #### [facility] [address] [place], [address] Potassium [Moles/Vol] 4.2 mmol/L Normal 3.5-5.1 [facility] Comment on above: Order Comment: Order Date: 03/26/24Order Info: [id number] - CMPOrder Info: 7 - TIBCOrder Info: [id number] - FEOrder Info: [id number] - FEROrder Info: 8 - FOLSN Performed By: #### M 100.2200 #### [facility] [address] [place], [place], [address] Sodium [Moles/Vol] 138 mmol/L Normal 136-145 [facility] Comment on above: Order Comment: Order Date: 03/26/24Order Info: [id number] - CMPOrder Info: 7 - TIBCOrder Info: [id number] - FEOrder Info: [id number] - FEROrder Info: [id number] - FOLSN Performed By: #### M 100.2200 #### [facility] [address] [place], [place], [address] T PROT 6.5 g/dL Normal 6.4-8.2 [facility] Comment on above: Order Comment: Order Date: 03/26/24Order Info: [id number] - CMPOrder Info: [id number] - TIBCOrder Info: [id number] - FEOrder Info: [id number] - FEROrder Info: [id number] - FOLSN Performed By: #### M 100.2200 #### [facility] [address] [place], [place], [address] Urea nitrogen [Mass/Vol] 30 mg/dL High 7-18 [facility] Comment on above: Order Comment: Order Date: 03/26/24Order Info: [id number] - CMPOrder Info: 7 - TIBCOrder Info: [id number] - FEOrder Info: [id number] - FEROrder Info: 8 - FOLSN Performed By: #### M 100.2200 #### [facility] [address] [place], [address] Ferritinon 03-26-2024 Ferritin [Mass/Vol] 63 ng/mL Normal 26-388 [facility] Comment on above: Order Comment: Order Date: 03/26/24Order Info: [id number] - CMPOrder Info: [id number] - TIBCOrder Info: [id number] - FEOrder Info: [id number] - FEROrder Info: 228-8 - FOLSN Performed By: #### M 100.2200 #### [facility] [address] [place], [place], [address] Folates, (Folic Acid)on 03-06 FOLATES 9.80 ng/mL Normal 3.1-55.4 [facility] Comment on above: Order Comment: Order Date: 03/26/24Order Info: [id number] - CMPOrder Info: [id number] - TIBCOrder Info: [id number] - FEOrder Info: [id number] - FEROrder Info: 228-8 - FOLSN Performed By: #### M 100.2200 #### [facility] [address] [place], [place], [address] Ironon 03-26-2024 Iron [Mass/Vol] 59 ug/dL Low 65-175 [facility] Comment on above: Order Comment: Order Date: 03/26/24Order Info: [id number]- - CMPOrder Info: [id number] - TIBCOrder Info: [id number] - FEOrder Info: [id number] - FEROrder Info: [id number] - FOLSN Performed By: #### M 100.2200 #### [facility] [address] [place], [place], [address] Iron Binding Capacity,Totalo n 03-26-2024 TIBC 425 ug/dL Normal 250-450 [facility] Comment on above: Order Comment: Order Date: 03/26/24Order Info: 07-1 - CMPOrder Info: [id number] - TIBCOrder Info: [id number] - FEOrder Info: [id number] - FEROrder Info: [id number] - FOLSN Performed By: #### M 100.2200 #### [facility] [address] [place], [address] Vitamin B12on 03-26-2024 Cobalamin (Vitamin B12) [Mass/Vol] 388 pg/mL Normal 211-911 [facility] Comment on above: Order Comment: Order Date: 03/26/24Order Info: [id number] - B12 Performed By: #### M 100.2200 #### [facility] [address] [place], [address] CALCIUMon 03-23-2024 Calcium [Mass/Vol] 9.0 mg/dL Normal 8.6-10.5 [facility] Comment on above: Performed By: #### P LAT #### [facility] (DEFAULT) [address] [address] CBC AND ELECTRONIC DIFFon Basophils (Bld) [#/Vol] 0.05 10*3/uL Normal 0.00-0.09 [facility] Comment on above: Performed By: #### U [id number] #### [facility] (DEFAULT) [address] [address] Basophils/100 WBC (Bld) 0.6 % Normal [facility] Comment on above: Performed By: #### U [id number] #### [facility] (DEFAULT) [address] [address] DIFF STATUS Electronic Differential Normal [facility] Comment on above: Performed By: #### U [id number] #### [facility] (DEFAULT) [address] [place] [address] Eosinophils (Bld) [#/Vol] 1.11 10*3/uL High 0.00-0.48 [facility] Comment on above: Performed By: #### U [id number] #### [facility] (DEFAULT) [address] [place] [address] Eosinophils/100 WBC (Bld) 12.6 % Normal [facility] Comment on above: Performed By: #### U [id number] #### [facility] (DEFAULT) [address] [address] Hematocrit (Bld) [Volume fraction] 33.0 % Low 39.6-48.8 [facility] Comment on above: Performed By: #### U [id number] #### [facility] (DEFAULT) [address] [address] Hemoglobin (Bld) [Mass/Vol] 10.5 g/dL Low 13.4-16.8 [facility] Comment on above: Performed By: #### U [id number] #### [facility] (DEFAULT) [address] [address] Immature Grans % 0.5 % Normal [facility] Comment on above: Performed By: #### U [id number] #### [facility] (DEFAULT) [address] [address] Immature Grans Absolute 0.04 K/uL Normal <=0.07 [facility] Comment on above: Performed By: #### U [id number] #### [facility] (DEFAULT) [address] [address] Lymphocytes (Bld) [#/Vol] 2.34 10*3/uL Normal 0.83-3.57 [facility] Comment on above: Performed By: #### U [id number] #### [facility] (DEFAULT) [address] [address] Lymphocytes/100 WBC (Bld) 26.5 % Normal [facility] Comment on above: Performed By: #### U [id number] #### [facility] (DEFAULT) [address] [address] MCV (RBC) [Entitic vol] 85.3 fL Normal 79.0-94.5 [facility] Comment on above: Performed By: #### U [id number] #### [facility] (DEFAULT) [address] [address] Mean Cell Hgb 27.1 pg Normal 26.1-33.3 [facility] Comment on above: Performed By: #### U [id number] #### [facility] (DEFAULT) [address] [address] Mean Cell Hgb Conc 31.8 g/dL Low 31.9-36.5 [facility] Comment on above: Performed By: #### U [id number] #### [facility] (DEFAULT) [address] [address] Monocytes (Bld) [#/Vol] 0.62 10*3/uL Normal 0.24-0.93 [facility] Comment on above: Performed By: #### U [id number] #### [facility] (DEFAULT) [address] [address] Monocytes/100 WBC (Bld) 7.0 % Normal [facility] Comment on above: Performed By: #### U [id number] #### [facility] (DEFAULT) [address] [address] Nucleated RBC 0.0 /100 WBC Normal <=0.2 [facility] Comment on above: Performed By: #### U [id number] #### [facility] (DEFAULT) [address] [address] Platelet mean volume (Bld) [Entitic vol] 11.0 fL Normal 8.7-12.3 [facility] Comment on above: Performed By: #### U [id number] #### [facility] (DEFAULT) [address] [address] Platelets (Bld) [#/Vol] 219 10*3/uL Normal 146-337 [facility] Comment on above: Performed By: #### U [id number] #### [facility] (DEFAULT) [address] [address] RBC (Bld) [#/Vol] 3.87 10*6/uL Low 4.38-5.83 [facility] Comment on above: Performed By: #### U [id number] #### [facility] (DEFAULT) [address] [place] [address] RBC Distribution 14.7 % High 10.9-14.3 [facility] Comment on above: Performed By: #### U [id number] #### [facility] (DEFAULT) [address] [place] [address] Segs + Bands Auto 52.8 % Normal [facility] Comment on above: Performed By: #### U [id number] #### [facility] (DEFAULT) [address] [place] [address] Segs + Bands,Absolute Auto 4.68 K/uL Normal 1.57-6.19 [facility] Comment on above: Performed By: #### U [id number] #### [facility] (DEFAULT) [address] [place] [address] WBC (Bld) [#/Vol] 8.84 10*3/uL Normal 3.73-10.10 [facility] Comment on above: Performed By: #### U [id number] #### [facility] (DEFAULT) [address] [place] [address] CHEM 7 (LYTES,BUN,CREA,GLUC) on 03-23-2024 Anion gap [Moles/Vol] 14 mmol/L Normal 7-17 [facility] Comment on above: Performed By: #### P LAT #### [facility] (DEFAULT) [address] [place] [address] Chloride [Moles/Vol] 105 mmol/L Normal 98-108 [facility] Comment on above: Performed By: #### P LAT #### [facility] (DEFAULT) [address] [place] [address] CO2 [Moles/Vol] 28 mmol/L Normal 21-31 [facility] Comment on above: Performed By: #### P LAT #### [facility] (DEFAULT) [address] [place] [address] Creatinine [Mass/Vol] 0.62 mg/dL Low 0.70-1.30 [facility] Comment on above: Performed By: #### P LAT #### [facility] (DEFAULT) [address] [place] [address] eGFR, CKD-EPI, Male > Normal >=60 [facility] Comment on above: Result Comment: Repo rted eGFR is based on the CKD-EPI 2020 equation using creatinine, age, and sex. Performed By: #### P LAT #### [facility] (DEFAULT) [address] [place] [address] Glucose [Mass/Vol] 91 mg/dL Normal 70-99 [facility] Comment on above: Performed By: #### P LAT #### [facility] (DEFAULT) [address] [place] [address] Osmolality [Osmolality] 302 mosm/kg Normal 278-305 [facility] Comment on above: Performed By: #### P LAT #### [facility] (DEFAULT) [address] [place] [address] Potassium [Moles/Vol] 4.1 mmol/L Normal 3.5-5.0 [facility] Comment on above: Performed By: #### P LAT #### [facility] (DEFAULT) [address] [place] [address] Sodium [Moles/Vol] 143 mmol/L Normal 135-145 [facility] Comment on above: Performed By: #### P LAT #### [facility] (DEFAULT) [address] [place] [address] Urea nitrogen [Mass/Vol] 23 mg/dL Normal 7-25 [facility] Comment on above: Performed By: #### P LAT #### [facility] (DEFAULT) [address] [place] [address] Urea nitrogen/Creatinine [Mass ratio] 37 mg/mg Normal [facility] Comment on above: Performed By: #### P LAT #### [facility] (DEFAULT) [address] [place] [address] MAGNESIUMon 03-23-2024 Magnesium [Mass/Vol] 1.9 mg/dL Normal 1.6-2.6 [facility] Comment on above: Performed By: #### P LAT #### [facility] (DEFAULT) [address] [place] [address] PREALBUMINon 03-23-2024 Prealbumin [Mass/Vol] 26 mg/dL Normal 17-34 [facility] Comment on above: Performed By: #### P LAT #### [facility] (DEFAULT) [address] [place] [address] CHEM 7 (LYTES,BUN,CREA,GLUC) on 03-22-2024 Anion gap [Moles/Vol] 13 mmol/L Normal 7-17 [facility] Comment on above: Performed By: #### P LAT #### [facility] (DEFAULT) [address] [place] [address] Chloride [Moles/Vol] 103 mmol/L Normal 98-108 [facility] Comment on above: Performed By: #### P LAT #### [facility] (DEFAULT) [address] [place] [address] CO2 [Moles/Vol] 28 mmol/L Normal 21-31 [facility] Comment on above: Performed By: #### P LAT #### [facility] (DEFAULT) [address] [place] [address] Creatinine [Mass/Vol] 0.63 mg/dL Low 0.70-1.30 [facility] Comment on above: Performed By: #### P LAT #### [facility] (DEFAULT) [address] [place] [address] eGFR, CKD-EPI, Male > Normal >=60 [facility] Comment on above: Result Comment: Repo rted eGFR is based on the CKD-EPI 2020 equation using creatinine, age, and sex. Performed By: #### P LAT #### [facility] (DEFAULT) [address] [place] [address] Glucose [Mass/Vol] 87 mg/dL Normal 70-99 [facility] Comment on above: Performed By: #### P LAT #### [facility] (DEFAULT) [address] [place] [address] Osmolality [Osmolality] 296 mosm/kg Normal 278-305 [facility] Comment on above: Performed By: #### P LAT #### [facility] (DEFAULT) [address] [place] [address] Potassium [Moles/Vol] 4.1 mmol/L Normal 3.5-5.0 [facility] Comment on above: Performed By: #### P LAT #### [facility] (DEFAULT) [address] [place] [address] Sodium [Moles/Vol] 140 mmol/L Normal 135-145 [facility] Comment on above: Performed By: #### P LAT #### [facility] (DEFAULT) [address] [place] [address] Urea nitrogen [Mass/Vol] 24 mg/dL Normal 7-25 [facility] Comment on above: Performed By: #### P LAT #### [facility] (DEFAULT) [address] [place] [address] Urea nitrogen/Creatinine [Mass ratio] 38 mg/mg Normal [facility] Comment on above: Performed By: #### P LAT #### [facility] (DEFAULT) [address] [place] [address] MAGNESIUMon 03-22-2024 Magnesium [Mass/Vol] 1.9 mg/dL Normal 1.6-2.6 [facility] Comment on above: Performed By: #### L [id number] #### [facility] (DEFAULT) [address] [place] [address] PLATELET COUNTon 03-19-2024 Platelet mean volume (Bld) [Entitic vol] 10.6 fL Normal 8.7-12.3 [facility] Comment on above: Performed By: #### U R #### [facility] (DEFAULT) [address] [address] Platelets (Bld) [#/Vol] 244 10*3/uL Normal 146-337 [facility] Comment on above: Performed By: #### U R #### [facility] (DEFAULT) [address] [address] CALCIUMon 03-16-2024 Calcium [Mass/Vol] 9.2 mg/dL Normal 8.6-10.5 [facility] Comment on above: Performed By: #### L [id number] #### [facility] (DEFAULT) [address] [address] CBC AND ELECTRONIC DIFFon Basophils (Bld) [#/Vol] 0.04 10*3/uL Normal 0.00-0.09 [facility] Comment on above: Performed By: #### L [id number] #### [facility] (DEFAULT) [address] [address] Basophils/100 WBC (Bld) 0.5 % Normal [facility] Comment on above: Performed By: #### L [id number] #### [facility] (DEFAULT) [address] [address] DIFF STATUS Electronic Differential Normal [facility] Comment on above: Performed By: #### L [id number] #### [facility] (DEFAULT) [address] [address] Eosinophils (Bld) [#/Vol] 0.82 10*3/uL High 0.00-0.48 [facility] Comment on above: Performed By: #### L [id number] #### [facility] (DEFAULT) [address] [address] Eosinophils/100 WBC (Bld) 10.0 % Normal [facility] Comment on above: Performed By: #### L [id number] #### [facility] (DEFAULT) [address] [address] Hematocrit (Bld) [Volume fraction] 34.8 % Low 39.6-48.8 [facility] Comment on above: Performed By: #### L [id number] #### [facility] (DEFAULT) [address] [address] Hemoglobin (Bld) [Mass/Vol] 10.9 g/dL Low 13.4-16.8 [facility] Comment on above: Performed By: #### L [id number] #### [facility] (DEFAULT) [address] [address] Immature Grans % 0.6 % Normal [facility] Comment on above: Performed By: #### L [id number] #### [facility] (DEFAULT) [address] [address] Immature Grans Absolute 0.05 K/uL Normal <=0.07 [facility] Comment on above: Performed By: #### L [id number] #### [facility] (DEFAULT) [address] [address] Lymphocytes (Bld) [#/Vol] 2.31 10*3/uL Normal 0.83-3.57 [facility] Comment on above: Performed By: #### L [id number] #### [facility] (DEFAULT) [address] [address] Lymphocytes/100 WBC (Bld) 28.2 % Normal [facility] Comment on above: Performed By: #### L [id number] #### [facility] (DEFAULT) [address] [address] MCV (RBC) [Entitic vol] 84.9 fL Normal 79.0-94.5 [facility] Comment on above: Performed By: #### L [id number] #### [facility] (DEFAULT) [address] [address] Mean Cell Hgb 26.6 pg Normal 26.1-33.3 [facility] Comment on above: Performed By: #### L [id number] #### [facility] (DEFAULT) [address] [address] Mean Cell Hgb Conc 31.3 g/dL Low 31.9-36.5 [facility] Comment on above: Performed By: #### L [id number] #### [facility] (DEFAULT) [address] [address] Monocytes (Bld) [#/Vol] 0.74 10*3/uL Normal 0.24-0.93 [facility] Comment on above: Performed By: #### L [id number] #### [facility] (DEFAULT) [address] [address] Monocytes/100 WBC (Bld) 9.0 % Normal [facility] Comment on above: Performed By: #### L [id number] #### [facility] (DEFAULT) [address] [address] Nucleated RBC 0.0 /100 WBC Normal <=0.2 [facility] Comment on above: Performed By: #### L [id number] #### [facility] (DEFAULT) [address] [address] Platelet mean volume (Bld) [Entitic vol] 10.1 fL Normal 8.7-12.3 [facility] Comment on above: Performed By: #### L [id number] #### [facility] (DEFAULT) [address] [address] Platelets (Bld) [#/Vol] 251 10*3/uL Normal 146-337 [facility] Comment on above: Performed By: #### L [id number] #### [facility] (DEFAULT) [address] [address] RBC (Bld) [#/Vol] 4.10 10*6/uL Low 4.38-5.83 [facility] Comment on above: Performed By: #### L [id number] #### [facility] (DEFAULT) [address] [place] [address] RBC Distribution 14.6 % High 10.9-14.3 [facility] Comment on above: Performed By: #### L [id number] #### [facility] (DEFAULT) [address] [place] [address] Segs + Bands Auto 51.7 % Normal [facility] Comment on above: Performed By: #### L [id number] #### U [facility] (DEFAULT) [address] [place] [address] Segs + Bands,Absolute Auto 4.22 K/uL Normal 1.57-6.19 [facility] Comment on above: Performed By: #### L [id number] #### [facility] (DEFAULT) [address] [place] [address] WBC (Bld) [#/Vol] 8.18 10*3/uL Normal 3.73-10.10 [facility] Comment on above: Performed By: #### L [id number] #### [facility] (DEFAULT) [address] [place] [address] CHEM 7 (LYTES,BUN,CREA,GLUC) on 03-16-2024 Anion gap [Moles/Vol] 14 mmol/L Normal 7-17 [facility] Comment on above: Performed By: #### L [id number] #### [facility] (DEFAULT) [address] [place] [address] Chloride [Moles/Vol] 105 mmol/L Normal 98-108 [facility] Comment on above: Performed By: #### L [id number] #### [facility] (DEFAULT) [address] [place] [address] CO2 [Moles/Vol] 29 mmol/L Normal 21-31 [facility] Comment on above: Performed By: #### L [id number] #### [facility] (DEFAULT) [address] [place] [address] Creatinine [Mass/Vol] 0.69 mg/dL Low 0.70-1.30 [facility] Comment on above: Performed By: #### L [id number] #### [facility] (DEFAULT) [address] [place] [address] eGFR, CKD-EPI, Male > Normal >=60 [facility] Comment on above: Result Comment: Repo rted eGFR is based on the CKD-EPI 2020 equation using creatinine, age, and sex. Performed By: #### L [id number] #### [facility] (DEFAULT) [address] [place] [address] Glucose [Mass/Vol] 85 mg/dL Normal 70-99 [facility] Comment on above: Performed By: #### L [id number] #### [facility] (DEFAULT) [address] [place] [address] Osmolality [Osmolality] 304 mosm/kg Normal 278-305 [facility] Comment on above: Performed By: #### L [id number] #### [facility] (DEFAULT) [address] [place] [address] Potassium [Moles/Vol] 4.7 mmol/L Normal 3.5-5.0 [facility] Comment on above: Performed By: #### L [id number] #### [facility] (DEFAULT) [address] [place] [address] Sodium [Moles/Vol] 143 mmol/L Normal 135-145 [facility] Comment on above: Performed By: #### L [id number] #### [facility] (DEFAULT) [address] [place] [address] Urea nitrogen [Mass/Vol] 27 mg/dL High 7-25 [facility] Comment on above: Performed By: #### L [id number] #### [facility] (DEFAULT) [address] [place] [address] Urea nitrogen/Creatinine [Mass ratio] 39 mg/mg Normal [facility] Comment on above: Performed By: #### L [id number] #### [facility] (DEFAULT) [address] [place] [address] MAGNESIUMon 03-16-2024 Magnesium [Mass/Vol] 1.8 mg/dL Normal 1.6-2.6 [facility] Comment on above: Performed By: #### L [id number] #### [facility] (DEFAULT) [address] [place] [address] PREALBUMINon 03-16-2024 Prealbumin [Mass/Vol] 26 mg/dL Normal 17-34 [facility] Comment on above: Performed By: #### L [id number] #### [facility] (DEFAULT) [address] [place] [address] US MSK SHOULDER RIGHTon 03-05 US [facility]K SHOULDER RIGHT EXAM: Complete Ultrasound of the Right Shoulder, 03/16/2024 12:53 PM CLINICAL INDICATIONS: right shoulder pain, possible biceps vs cuff pathology RELEVANT CLINICAL HISTORY: COMPARISON: Right shoulder radiographs 03/15/2024 TECHNIQUE: Sonographic images of the Right shoulder were obtained in transverse and longitudinal planes. FINDINGS: Biceps Tendon: The long head of the biceps tendon is intact and normally positioned in the groove. Rotator Cuff: Evaluation is somewhat limited due to limited range of motion. A possible partial thickness bursal sided tear is seen in the supraspinatus tendon. Coracoacromial Arch: The acromioclavicular joint is normal. Trace fluid is seen in the subacromial subdeltoid bursa. No subacromial rotator cuff impingement with dynamic maneuvers, although evaluation is suboptimal due to limited range of motion. Labrum: The visualized portion of the posterior labrum is normal. Additional focused evaluation at site of maximal symptoms was unrevealing. IMPRESSION: Limited exam due to limited range of motion. Possible partial thickness bursal sided supraspinatus tear with trace subacromial subdeltoid bursal fluid. Normal [facility] C REACTIVE PROTEINon 024 CRP [Mass/Vol] 8.53 mg/L Normal <10.00 [facility] Comment on above: Performed By: #### P LAT #### [facility] (DEFAULT) [address] [address] CBC,PLATELETSon 03-15-2024 Hematocrit (Bld) [Volume fraction] 33.6 % Low 39.6-48.8 [facility] Comment on above: Performed By: #### L [id number] #### [facility] (DEFAULT) [address] [address] Hemoglobin (Bld) [Mass/Vol] 10.7 g/dL Low 13.4-16.8 [facility] Comment on above: Performed By: #### L [id number] #### [facility] (DEFAULT) [address] [address] MCV (RBC) [Entitic vol] 85.1 fL Normal 79.0-94.5 [facility] Comment on above: Performed By: #### L [id number] #### [facility] (DEFAULT) [address] [address] Mean Cell Hgb 27.1 pg Normal 26.1-33.3 [facility] Comment on above: Performed By: #### L [id number] #### [facility] (DEFAULT) [address] [address] Mean Cell Hgb Conc 31.8 g/dL Low 31.9-36.5 [facility] Comment on above: Performed By: #### L [id number] #### [facility] (DEFAULT) [address] [address] Platelet mean volume (Bld) [Entitic vol] 10.3 fL Normal 8.7-12.3 [facility] Comment on above: Performed By: #### L [id number] #### [facility] (DEFAULT) [address] [address] Platelets (Bld) [#/Vol] 266 10*3/uL Normal 146-337 [facility] Comment on above: Performed By: #### L [id number] #### [facility] (DEFAULT) [address] [place] [address] RBC (Bld) [#/Vol] 3.95 10*6/uL Low 4.38-5.83 [facility] Comment on above: Performed By: #### L [id number] #### [facility] (DEFAULT) [address] [place] [address] RBC Distribution 14.5 % High 10.9-14.3 [facility] Comment on above: Performed By: #### L [id number] #### [facility] (DEFAULT) [address] [place] [address] WBC (Bld) [#/Vol] 9.80 10*3/uL Normal 3.73-10.10 [facility] Comment on above: Performed By: #### L [id number] #### [facility] (DEFAULT) [address] [place] [address] SEDIMENTATION RATE, AUTOMATE Don 03-15-2024 ESR Westergren 30 mm/hr High <15 [facility] Comment on above: Performed By: #### L [id number] #### [facility] (DEFAULT) [address] [place] [address] XR ELBOW RIGHT 2 VIEWSon XR ELBOW RIGHT 2 VIEWS EXAM: XR ELBOW RIGHT 2 VIEWS, 03/15/2024 15:11 PM COMPARISON: No prior studies available for comparison. CLINICAL INDICATIONS: Elbow contracture RELEVANT CLINICAL HISTORY: FINDINGS: 2 images obtained. Effusion: There is no joint effusion. Soft Tissue: There is no significant soft tissue swelling. Bone: No acute osseous abnormality is identified. Joint: The radiocapitellar and ulnotrochlear joints are anatomically aligned. Joint spaces are preserved. IMPRESSION: No acute osseous abnormality of the right elbow. Normal [facility] XR SHOULDER RIGHT 2+ VIEWSon 03-15-2024 XR SHOULDER RIGHT 2+ VIEWS EXAM: XR SHOULDER RIGHT 2+ VIEWS, 03/15/2024 12:56 PM CLINICAL INDICATIONS: axillary view, right shoulder pain RELEVANT CLINICAL HISTORY: Axillary view; COMPARISON: Compared to prior study dated March 08, 2024. FINDINGS: 6 images obtained. Soft Tissue: No soft tissue swelling evident. Bone: No acute osseous abnormality is identified. Joint: Acromioclavicular and glenohumeral joints are anatomically aligned. IMPRESSION: Unremarkable study. Normal [facility] PLATELET COUNTon 03-13-2024 Platelet mean volume (Bld) [Entitic vol] 10.4 fL Normal 8.7-12.3 [facility] Comment on above: Performed By: #### L [id number] #### [facility] (DEFAULT) [address] [place] [address] Platelets (Bld) [#/Vol] 273 10*3/uL Normal 146-337 [facility] Comment on above: Performed By: #### L [id number] #### [facility] (DEFAULT) [address] [place] [address] PLATELET COUNTon 03-10-2024 Platelet mean volume (Bld) [Entitic vol] 10.4 fL Normal 8.7-12.3 [facility] Comment on above: Performed By: #### L [id number] #### [facility] (DEFAULT) [address] [place] [address] Platelets (Bld) [#/Vol] 282 10*3/uL Normal 146-337 [facility] Comment on above: Performed By: #### L [id number] #### [facility] (DEFAULT) [address] [place] [address] CALCIUMon 03-08-2024 Calcium [Mass/Vol] 8.7 mg/dL Normal 8.6-10.5 [facility] Comment on above: Performed By: #### C HM7, MGO, PALB, CA, HFP ####[facility] (DEFAULT)[address] [place] [address] CBC AND ELECTRONIC DIFFon Basophils (Bld) [#/Vol] 0.04 10*3/uL Normal 0.00-0.09 [facility] Comment on above: Performed By: #### L [id number] #### [facility] (DEFAULT) [address] [address] Basophils/100 WBC (Bld) 0.5 % Normal [facility] Comment on above: Performed By: #### L [id number] #### [facility] (DEFAULT) [address] [address] DIFF STATUS Electronic Differential Normal [facility] Comment on above: Performed By: #### L [id number] #### [facility] (DEFAULT) [address] [address] Eosinophils (Bld) [#/Vol] 0.67 10*3/uL High 0.00-0.48 [facility] Comment on above: Performed By: #### L [id number] #### [facility] (DEFAULT) [address] [address] Eosinophils/100 WBC (Bld) 8.1 % Normal [facility] Comment on above: Performed By: #### L [id number] #### [facility] (DEFAULT) [address] [address] Hematocrit (Bld) [Volume fraction] 32.7 % Low 39.6-48.8 [facility] Comment on above: Performed By: #### L [id number] #### [facility] (DEFAULT) [address] [address] Hemoglobin (Bld) [Mass/Vol] 10.4 g/dL Low 13.4-16.8 [facility] Comment on above: Performed By: #### L [id number] #### [facility] (DEFAULT) [address] [address] Immature Grans % 0.8 % Normal [facility] Comment on above: Performed By: #### L [id number] #### [facility] (DEFAULT) [address] [place] [address] Immature Grans Absolute 0.07 K/uL Normal <=0.07 [facility] Comment on above: Performed By: #### L [id number] #### [facility] (DEFAULT) [address] [place] [address] Lymphocytes (Bld) [#/Vol] 2.12 10*3/uL Normal 0.83-3.57 [facility] Comment on above: Performed By: #### L [id number] #### [facility] (DEFAULT) [address] [place] [address] Lymphocytes/100 WBC (Bld) 25.6 % Normal [facility] Comment on above: Performed By: #### L [id number] #### [facility] (DEFAULT) [address] [place] [address] MCV (RBC) [Entitic vol] 85.8 fL Normal 79.0-94.5 [facility] Comment on above: Performed By: #### L [id number] #### [facility] (DEFAULT) [address] [address] Mean Cell Hgb 27.3 pg Normal 26.1-33.3 [facility] Comment on above: Performed By: #### L [id number] #### [facility] (DEFAULT) [address] [address] Mean Cell Hgb Conc 31.8 g/dL Low 31.9-36.5 [facility] Comment on above: Performed By: #### L [id number] #### [facility] (DEFAULT) [address] [place] [address] Monocytes (Bld) [#/Vol] 0.58 10*3/uL Normal 0.24-0.93 [facility] Comment on above: Performed By: #### L [id number] #### [facility] (DEFAULT) [address] [place] [address] Monocytes/100 WBC (Bld) 7.0 % Normal [facility] Comment on above: Performed By: #### L [id number] #### [facility] (DEFAULT) [address] [address] Nucleated RBC 0.0 /100 WBC Normal <=0.2 [facility] Comment on above: Performed By: #### L [id number] #### [facility] (DEFAULT) [address] [address] Platelet mean volume (Bld) [Entitic vol] 10.8 fL Normal 8.7-12.3 [facility] Comment on above: Performed By: #### L [id number] #### [facility] (DEFAULT) [address] [address] Platelets (Bld) [#/Vol] 244 10*3/uL Normal 146-337 [facility] Comment on above: Performed By: #### L [id number] #### [facility] (DEFAULT) [address] [address] RBC (Bld) [#/Vol] 3.81 10*6/uL Low 4.38-5.83 [facility] Comment on above: Performed By: #### L [id number] #### [facility] (DEFAULT) [address] [address] RBC Distribution 14.7 % High 10.9-14.3 [facility] Comment on above: Performed By: #### L [id number] #### [facility] (DEFAULT) [address] [address] Segs + Bands Auto 58.0 % Normal [facility] Comment on above: Performed By: #### L [id number] #### [facility] (DEFAULT) [address] [address] Segs + Bands,Absolute Auto 4.80 K/uL Normal 1.57-6.19 [facility] Comment on above: Performed By: #### L [id number] #### [facility] (DEFAULT) [address] [place] [address] WBC (Bld) [#/Vol] 8.28 10*3/uL Normal 3.73-10.10 [facility] Comment on above: Performed By: #### L [id number] #### [facility] (DEFAULT) [address] [place] [address] CHEM 7 (LYTES,BUN,CREA,GLUC) on 03-08-2024 Anion gap [Moles/Vol] 14 mmol/L Normal 7-17 [facility] Comment on above: Performed By: #### C HM7, MGO, PALB, CA, HFP ####[facility] (DEFAULT)[address] [place] [address] Chloride [Moles/Vol] 104 mmol/L Normal 98-108 [facility] Comment on above: Performed By: #### C HM7, MGO, PALB, CA, HFP ####[facility] (DEFAULT)[address] [place] [address] CO2 [Moles/Vol] 27 mmol/L Normal 21-31 [facility] Comment on above: Performed By: #### C HM7, MGO, PALB, CA, HFP ####[facility] (DEFAULT)[address] [place] [address] Creatinine [Mass/Vol] 0.75 mg/dL Normal 0.70-1.30 [facility] Comment on above: Performed By: #### C HM7, MGO, PALB, CA, HFP ####[facility] (DEFAULT)[address] [place] [address] eGFR, CKD-EPI, Male > Normal >=60 [facility] Comment on above: Result Comment: Repo rted eGFR is based on the CKD-EPI 2020 equation using creatinine, age, and sex. Performed By: #### C HM7, MGO, PALB, CA, HFP ####[facility] (DEFAULT)[address] [place] [address] Glucose [Mass/Vol] 85 mg/dL Normal 70-99 [facility] Comment on above: Performed By: #### C HM7, MGO, PALB, CA, HFP ####[facility] (DEFAULT)[address] [place] [address] Osmolality [Osmolality] 299 mosm/kg Normal 278-305 [facility] Comment on above: Performed By: #### C HM7, MGO, PALB, CA, HFP ####[facility] (DEFAULT)[address] [place] [address] Potassium [Moles/Vol] 4.0 mmol/L Normal 3.5-5.0 [facility] Comment on above: Performed By: #### C HM7, MGO, PALB, CA, HFP ####[facility] (DEFAULT)[address] [place] [address] Sodium [Moles/Vol] 141 mmol/L Normal 135-145 [facility] Comment on above: Performed By: #### C HM7, MGO, PALB, CA, HFP ####[facility] (DEFAULT)[address] [place] [address] Urea nitrogen [Mass/Vol] 28 mg/dL High 7-25 [facility] Comment on above: Performed By: #### C HM7, MGO, PALB, CA, HFP ####[facility] (DEFAULT)[address] [place] [address] Urea nitrogen/Creatinine [Mass ratio] 37 mg/mg Normal [facility] Comment on above: Performed By: #### C HM7, MGO, PALB, CA, HFP ####[facility] (DEFAULT)[address] [place] [address] HEPATIC FUNCTION PANELon Albumin [Mass/Vol] 3.3 g/dL Low 3.5-5.0 [facility] Comment on above: Performed By: #### C HM7, MGO, PALB, CA, HFP ####[facility] (DEFAULT)[address] [place] [address] ALP [Catalytic activity/Vol] 112 U/L Normal 32-126 [facility] Comment on above: Performed By: #### C HM7, MGO, PALB, CA, HFP ####[facility] (DEFAULT)[address] [place] [address] ALT [Catalytic activity/Vol] 34 U/L Normal 10-52 [facility] Comment on above: Performed By: #### C HM7, MGO, PALB, CA, HFP ####[facility] (DEFAULT)[address] [place] [address] AST [Catalytic activity/Vol] 14 U/L Normal 10-39 [facility] Comment on above: Performed By: #### C HM7, MGO, PALB, CA, HFP ####[facility] (DEFAULT)[address] [place] [address] Bilirubin [Mass/Vol] 0.2 mg/dL Normal <1.5 [facility] Comment on above: Performed By: #### C HM7, MGO, PALB, CA, HFP ####[facility] (DEFAULT)[address] [place] [address] Bilirubin.indirect [Mass/Vol] 0.1 mg/dL Normal <0.3 [facility] Comment on above: Performed By: #### C HM7, MGO, PALB, CA, HFP ####[facility] (DEFAULT)[address] [place] [address] Protein [Mass/Vol] 5.7 g/dL Low 6.4-8.3 [facility] Comment on above: Performed By: #### C HM7, MGO, PALB, CA, HFP ####[facility] (DEFAULT)[address] [place] [address] MAGNESIUMon 03-08-2024 Magnesium [Mass/Vol] 1.8 mg/dL Normal 1.6-2.6 [facility] Comment on above: Performed By: #### C HM7, MGO, PALB, CA, HFP ####[facility] (DEFAULT)[address] [place] [address] PREALBUMINon 03-08-2024 Prealbumin [Mass/Vol] 28 mg/dL Normal 17-34 [facility] Comment on above: Performed By: #### C HM7, MGO, PALB, CA, HFP ####[facility] (DEFAULT)[address] [place] [address] XR SHOULDER RIGHT 2+ VIEWSon 03-08-2024 XR SHOULDER RIGHT 2+ VIEWS EXAM: XR SHOULDER RIGHT 2+ VIEWS, 03/08/2024 17:13 PM CLINICAL INDICATIONS: Right shoulder pain, hx of polytrauma RELEVANT CLINICAL HISTORY: COMPARISON: No prior studies available for comparison. FINDINGS: 3 images obtained. Soft Tissue: No soft tissue swelling evident. Bone: No acute osseous abnormality is identified. Joint: Acromioclavicular and glenohumeral joints are anatomically aligned. IMPRESSION: No gross fracture or dislocation. Normal [facility] PLATELET COUNTon 03-07-2024 Platelet mean volume (Bld) [Entitic vol] 10.4 fL Normal 8.7-12.3 [facility] Comment on above: Performed By: #### P LAT #### [facility] (DEFAULT) [address] [place] [address] Platelets (Bld) [#/Vol] 267 10*3/uL Normal 146-337 [facility] Comment on above: Performed By: #### P LAT #### [facility] (DEFAULT) [address] [place] [address] CBC AND ELECTRONIC DIFFon Basophils (Bld) [#/Vol] 0.04 10*3/uL Normal 0.00-0.09 [facility] Comment on above: Performed By: #### L [id number] #### [facility] (DEFAULT) [address] [address] Basophils/100 WBC (Bld) 0.4 % Normal [facility] Comment on above: Performed By: #### L [id number] #### [facility] (DEFAULT) [address] [address] DIFF STATUS Electronic Differential Normal [facility] Comment on above: Performed By: #### L [id number] #### [facility] (DEFAULT) [address] [address] Eosinophils (Bld) [#/Vol] 0.72 10*3/uL High 0.00-0.48 [facility] Comment on above: Performed By: #### L [id number] #### [facility] (DEFAULT) [address] [address] Eosinophils/100 WBC (Bld) 6.8 % Normal [facility] Comment on above: Performed By: #### L [id number] #### [facility] (DEFAULT) [address] [address] Hematocrit (Bld) [Volume fraction] 31.1 % Low 39.6-48.8 [facility] Comment on above: Performed By: #### L [id number] #### [facility] (DEFAULT) [address] [address] Hemoglobin (Bld) [Mass/Vol] 9.6 g/dL Low 13.4-16.8 [facility] Comment on above: Performed By: #### L [id number] #### [facility] (DEFAULT) [address] [address] Immature Grans % 1.1 % Normal [facility] Comment on above: Performed By: #### L [id number] #### [facility] (DEFAULT) [address] [address] Immature Grans Absolute 0.12 K/uL High <=0.07 [facility] Comment on above: Performed By: #### L [id number] #### [facility] (DEFAULT) [address] [address] Lymphocytes (Bld) [#/Vol] 2.76 10*3/uL Normal 0.83-3.57 [facility] Comment on above: Performed By: #### L [id number] #### [facility] (DEFAULT) [address] [address] Lymphocytes/100 WBC (Bld) 26.1 % Normal [facility] Comment on above: Performed By: #### L [id number] #### [facility] (DEFAULT) [address] [address] MCV (RBC) [Entitic vol] 87.1 fL Normal 79.0-94.5 [facility] Comment on above: Performed By: #### L [id number] #### [facility] (DEFAULT) [address] [address] Mean Cell Hgb 26.9 pg Normal 26.1-33.3 [facility] Comment on above: Performed By: #### L [id number] #### [facility] (DEFAULT) [address] [address] Mean Cell Hgb Conc 30.9 g/dL Low 31.9-36.5 [facility] Comment on above: Performed By: #### L [id number] #### [facility] (DEFAULT) [address] [address] Monocytes (Bld) [#/Vol] 0.68 10*3/uL Normal 0.24-0.93 [facility] Comment on above: Performed By: #### L [id number] #### [facility] (DEFAULT) [address] [address] Monocytes/100 WBC (Bld) 6.4 % Normal [facility] Comment on above: Performed By: #### L [id number] #### [facility] (DEFAULT) [address] [place] [address] Nucleated RBC 0.0 /100 WBC Normal <=0.2 [facility] Comment on above: Performed By: #### L [id number] #### [facility] (DEFAULT) [address] [place] [address] Platelet mean volume (Bld) [Entitic vol] 11.2 fL Normal 8.7-12.3 [facility] Comment on above: Performed By: #### L [id number] #### [facility] (DEFAULT) [address] [place] [address] Platelets (Bld) [#/Vol] 290 10*3/uL Normal 146-337 [facility] Comment on above: Performed By: #### L [id number] #### [facility] (DEFAULT) [address] [place] [address] RBC (Bld) [#/Vol] 3.57 10*6/uL Low 4.38-5.83 [facility] Comment on above: Performed By: #### L [id number] #### [facility] (DEFAULT) [address] [place] [address] RBC Distribution 14.7 % High 10.9-14.3 [facility] Comment on above: Performed By: #### L [id number] #### [facility] (DEFAULT) [address] [place] [address] Segs + Bands Auto 59.2 % Normal [facility] Comment on above: Performed By: #### L [id number] #### [facility] (DEFAULT) [address] [place] [address] Segs + Bands,Absolute Auto 6.25 K/uL High 1.57-6.19 [facility] Comment on above: Performed By: #### L [id number] #### [facility] (DEFAULT) [address] [place] [address] WBC (Bld) [#/Vol] 10.57 10*3/uL High 3.73-10.10 [facility] Comment on above: Performed By: #### L [id number] #### [facility] (DEFAULT) [address] [place] [address] CORTISOLon 03-04-2024 Cortisol 10.05 mcg/dL Normal 3.09-22.40 [facility] Comment on above: Order Comment: For i ndwelling catheters, specimen collection is acceptable on catheter day 1 and 2 only. ? Result Comment: Disc laimer: ? Serum cortisol testing is not used for screening, diagnosing, or excluding Delmita's syndrome. ? Serum morning cortisol testing is not used for monitoring replacement treatment in patients with adrenal deficiency. Performed By: #### U [id number] #### [facility] (DEFAULT) [address] [place] [address] US RENALon 03-03-2024 US RENAL EXAM: US RENAL, 03/03/2024 17:49 PM CLINICAL INDICATIONS: rule out hydronephrosis COMPARISON: No prior studies available for comparison. TECHNIQUE: Multiple longitudinal and transverse real-time grayscale images of both kidneys were obtained. Color-flow Doppler images were also obtained. FINDINGS: Right Kidney: The right kidney measures 12.9 cm in length, which is within normal limits for the patient's age. Renal cortical thickness and echogenicity are within normal limits. Small exophytic cyst is seen in the upper pole without suspicious features. Renal Pelvis: There is no hydronephrosis. No obvious renal calculi. Left Kidney: The left kidney measures 13.6 cm in length, which is within normal limits for the patient's age. Renal cortical thickness and echogenicity are within normal limits. Renal Pelvis: There is no hydronephrosis. No obvious renal calculi. Bladder: Distended with a Spann catheter in place. IMPRESSION: No hydronephrosis. Normal [facility] CBC AND ELECTRONIC DIFFon Basophils (Bld) [#/Vol] 0.05 10*3/uL Normal 0.00-0.09 [facility] Comment on above: Performed By: #### L [id number] ####[facility] (DEFAULT)[address] [place] [address] Basophils/100 WBC (Bld) 0.3 % Normal [facility] Comment on above: Performed By: #### L [id number] ####[facility] (DEFAULT)[address] [place] [address] DIFF STATUS Electronic Differential Normal [facility] Comment on above: Performed By: #### L [id number] ####[facility] (DEFAULT)[address] [facility] [place] [address] Eosinophils (Bld) [#/Vol] 0.70 10*3/uL High 0.00-0.48 [facility] Comment on above: Performed By: #### L [id number] ####[facility] (DEFAULT)[address] [place] [address] Eosinophils/100 WBC (Bld) 4.8 % Normal [facility] Comment on above: Performed By: #### L [id number] ####[facility] (DEFAULT)[address] [place] [address] Hematocrit (Bld) [Volume fraction] 32.1 % Low 39.6-48.8 [facility] Comment on above: Performed By: #### L [id number] ####[facility] (DEFAULT)[address] [place] [address] Hemoglobin (Bld) [Mass/Vol] 9.7 g/dL Low 13.4-16.8 [facility] Comment on above: Performed By: #### L [id number] ####[facility] (DEFAULT)[address] [place] [address] Immature Grans % 1.4 % Normal [facility] Comment on above: Performed By: #### L [id number] ####[facility] (DEFAULT)[address] [place] [address] Immature Grans Absolute 0.21 K/uL High <=0.07 [facility] Comment on above: Performed By: #### L [id number] ####[facility] (DEFAULT)[address] [place] [address] Lymphocytes (Bld) [#/Vol] 2.92 10*3/uL Normal 0.83-3.57 [facility] Comment on above: Performed By: #### L [id number] ####[facility] (DEFAULT)[address] [place] [address] Lymphocytes/100 WBC (Bld) 19.9 % Normal [facility] Comment on above: Performed By: #### L [id number] ####[facility] (DEFAULT)[address] [place] [address] MCV (RBC) [Entitic vol] 87.2 fL Normal 79.0-94.5 [facility] Comment on above: Performed By: #### L [id number] ####[facility] (DEFAULT)[address] [place] [address] Mean Cell Hgb 26.4 pg Normal 26.1-33.3 [facility] Comment on above: Performed By: #### L [id number] ####[facility] (DEFAULT)[address] [place] [place] [address] Mean Cell Hgb Conc 30.2 g/dL Low 31.9-36.5 [facility] Comment on above: Performed By: #### L [id number] ####[facility] (DEFAULT)[address] [place] [address] Monocytes (Bld) [#/Vol] 1.08 10*3/uL High 0.24-0.93 [facility] Comment on above: Performed By: #### L [id number] ####[facility] (DEFAULT)[address] [facility] [place] [address] Monocytes/100 WBC (Bld) 7.4 % Normal [facility] Comment on above: Performed By: #### L [id number] ####[facility] (DEFAULT)[address] [place] [address] Nucleated RBC 0.0 /100 WBC Normal <=0.2 [facility] Comment on above: Performed By: #### L [id number] ####[facility] (DEFAULT)[address] [place] [address] Platelet mean volume (Bld) [Entitic vol] 10.2 fL Normal 8.7-12.3 [facility] Comment on above: Performed By: #### L [id number] ####[facility] (DEFAULT)[address] [facility] [place] [address] Platelets (Bld) [#/Vol] 326 10*3/uL Normal 146-337 [facility] Comment on above: Performed By: #### L [id number] ####[facility] (DEFAULT)[address] [facility] [place] [address] RBC (Bld) [#/Vol] 3.68 10*6/uL Low 4.38-5.83 [facility] Comment on above: Performed By: #### L [id number] ####[facility] (DEFAULT)[address] [place] [address] RBC Distribution 14.8 % High 10.9-14.3 [facility] Comment on above: Performed By: #### L [id number] ####[facility] (DEFAULT)[address] [place] [address] Segs + Bands Auto 66.2 % Normal [facility] Comment on above: Performed By: #### L [id number] ####[facility] (DEFAULT)[address] [facility] [place] [address] Segs + Bands,Absolute Auto 9.70 K/uL High 1.57-6.19 [facility] Comment on above: Performed By: #### L [id number] ####[facility] (DEFAULT)[address] [place] [address] WBC (Bld) [#/Vol] 14.66 10*3/uL High 3.73-10.10 [facility] Comment on above: Performed By: #### L [id number] ####[facility] (DEFAULT)[address] [place] [address] URINALYSIS REFLEX TO CULTURE PERFORMABLEon 03-02-2024 Appearance (U) Clear Normal Clear [facility] Comment on above: Order Comment: For i ndwelling catheters, specimen collection is acceptable on catheter day 1 and 2 only. ? Performed By: #### U [id number] #### [facility] (DEFAULT) [address] [place] [address] Bacteria PRESENT Abnormal ABSENT [facility] Comment on above: Order Comment: For i ndwelling catheters, specimen collection is acceptable on catheter day 1 and 2 only. ? Performed By: #### U [id number] #### [facility] (DEFAULT) [address] [place] [address] Blood Urine Trace Abnormal Negative [facility] Comment on above: Order Comment: For i ndwelling catheters, specimen collection is acceptable on catheter day 1 and 2 only. ? Performed By: #### U [id number] #### [facility] (DEFAULT) [address] [place] [address] Color (U) Yellow Normal Yellow [facility] Comment on above: Order Comment: For i ndwelling catheters, specimen collection is acceptable on catheter day 1 and 2 only. ? Performed By: #### U [id number] #### [facility] (DEFAULT) [address] [place] [address] Glucose Ql (U) Negative Normal Negative [facility] Comment on above: Order Comment: For i ndwelling catheters, specimen collection is acceptable on catheter day 1 and 2 only. ? Performed By: #### U [id number] #### [facility] (DEFAULT) [address] [place] [address] Ketones Ql (U) Negative Normal Negative [facility] Comment on above: Order Comment: For i ndwelling catheters, specimen collection is acceptable on catheter day 1 and 2 only. ? Performed By: #### U [id number] #### [facility] (DEFAULT) [address] [address] Leukocyte esterase Test strip Ql (U) Moderate Abnormal Negative [facility] Comment on above: Order Comment: For i ndwelling catheters, specimen collection is acceptable on catheter day 1 and 2 only. ? Performed By: #### U [id number] #### [facility] (DEFAULT) [address] [place] [address] Nitrites Urine Positive Abnormal Negative [facility] Comment on above: Order Comment: For i ndwelling catheters, specimen collection is acceptable on catheter day 1 and 2 only. ? Performed By: #### U [id number] #### [facility] (DEFAULT) [address] [address] pH (U) 6.5 [pH] Normal 5.0-7.0 [facility] Comment on above: Order Comment: For i ndwelling catheters, specimen collection is acceptable on catheter day 1 and 2 only. ? Performed By: #### U [id number] #### [facility] (DEFAULT) [address] [address] Protein Urine Trace Abnormal Negative [facility] Comment on above: Order Comment: For i ndwelling catheters, specimen collection is acceptable on catheter day 1 and 2 only. ? Performed By: #### U [id number] #### [facility] (DEFAULT) [address] [place] [address] RBC Urine 3-5 Abnormal 0-2 [facility] Comment on above: Order Comment: For i ndwelling catheters, specimen collection is acceptable on catheter day 1 and 2 only. ? Performed By: #### U [id number] #### [facility] (DEFAULT) [address] [address] Specific [place] Urine 1.019 Normal 1.001-1.035 [facility] Comment on above: Order Comment: For i ndwelling catheters, specimen collection is acceptable on catheter day 1 and 2 only. ? Performed By: #### U [id number] #### U [facility] (DEFAULT) [address] [place] [address] Squamous/Epithelial Cells 0-2/hpf Normal 0-2/hpf, 3-5/hpf = 1+ [facility] Comment on above: Order Comment: For i ndwelling catheters, specimen collection is acceptable on catheter day 1 and 2 only. ? Performed By: #### U [id number] #### U [facility] (DEFAULT) [address] [place] [address] Urobilinogen Urine 0.2 E.U./dL Normal 0.2 E.U/d L, 1.0 E.U/dL [facility] Comment on above: Order Comment: For i ndwelling catheters, specimen collection is acceptable on catheter day 1 and 2 only. ? Performed By: #### U [id number] #### [facility] (DEFAULT) [address] [place] [address] WBC LM.HPF (Urine sed) [#/Area] /[HPF] Abnormal 0 - 5 [facility] Comment on above: Order Comment: For i ndwelling catheters, specimen collection is acceptable on catheter day 1 and 2 only. ? Performed By: #### U [id number] #### [facility] (DEFAULT) [address] [address] URINE CULTUREon 03-02-2024 Cefepime [Susceptibility] <= Invalid Interpretation Code Susceptible <=2 ug/mL, Susceptible-D ose Dependent >2 ug/mL, Resistant >8 ug/mL [facility] Comment on above: Order Comment: For i ndwelling catheters, specimen collection is acceptable on catheter day 1 and 2 only. [place] top vacutainer. Urine must be to the fill line to process (4mls). If minimum volume, send urine in a yellow top vacutainer tube.For indwelling catheters, specimen collection is acceptable on catheter day 1 and 2 only. ?For straight cath urines, a cut off of equal or greater than 10,000 CFU/mL is considered significant. Performed By: #### L [id number] #### [facility] (DEFAULT) [address] [address] Ciprofloxacin [Susceptibility] <=0.25 Invalid Interpretation Code Susceptible <=0.25 ug/mL, Intermediate >.25 ug/mL, Resistant >.5 ug/mL [facility] Comment on above: Order Comment: For i ndwelling catheters, specimen collection is acceptable on catheter day 1 and 2 only. [place] top vacutainer. Urine must be to the fill line to process (4mls). If minimum volume, send urine in a yellow top vacutainer tube.For indwelling catheters, specimen collection is acceptable on catheter day 1 and 2 only. ?For straight cath urines, a cut off of equal or greater than 10,000 CFU/mL is considered significant. Performed By: #### L [id number] #### [facility] (DEFAULT) [address] [address] Piperacillin+Tazobact am [Susceptibility] <=4 Invalid Interpretation Code Susceptible <=8 ug/mL, Susceptible-D ose Dependent >8 ug/mL, Resistant >=32 ug/mL [facility] Comment on above: Order Comment: For i ndwelling catheters, specimen collection is acceptable on catheter day 1 and 2 only. [place] top vacutainer. Urine must be to the fill line to process (4mls). If minimum volume, send urine in a yellow top vacutainer tube.For indwelling catheters, specimen collection is acceptable on catheter day 1 and 2 only. ?For straight cath urines, a cut off of equal or greater than 10,000 CFU/mL is considered significant. Performed By: #### L [id number] #### [facility] (DEFAULT) [address] [address] Tobramycin [Susceptibility] <= Invalid Interpretation Code Susceptible <=2 ug/mL, Intermediate >2 ug/mL, Resistant >=8 ug/mL [facility] Comment on above: Order Comment: For i ndwelling catheters, specimen collection is acceptable on catheter day 1 and 2 only. [place] top vacutainer. Urine must be to the fill line to process (4mls). If minimum volume, send urine in a yellow top vacutainer tube.For indwelling catheters, specimen collection is acceptable on catheter day 1 and 2 only. ?For straight cath urines, a cut off of equal or greater than 10,000 CFU/mL is considered significant. Performed By: #### L [id number] #### [facility] (DEFAULT) [address] [place] [address] CALCIUMon 03-01-2024 Calcium [Mass/Vol] 8.9 mg/dL Normal 8.6-10.5 [facility] Comment on above: Performed By: #### L [id number] #### [facility] (DEFAULT) [address] [place] [address] CBC AND ELECTRONIC DIFFon Basophils (Bld) [#/Vol] 0.06 10*3/uL Normal 0.00-0.09 [facility] Comment on above: Performed By: #### U [id number] #### [facility] (DEFAULT) [address] [place] [address] Basophils/100 WBC (Bld) 0.5 % Normal [facility] Comment on above: Performed By: #### U [id number] #### [facility] (DEFAULT) [address] [place] [address] DIFF STATUS Electronic Differential Normal [facility] Comment on above: Performed By: #### U [id number] #### [facility] (DEFAULT) [address] [place] [address] Eosinophils (Bld) [#/Vol] 0.82 10*3/uL High 0.00-0.48 [facility] Comment on above: Performed By: #### U [id number] #### [facility] (DEFAULT) [address] [address] Eosinophils/100 WBC (Bld) 7.0 % Normal [facility] Comment on above: Performed By: #### U [id number] #### [facility] (DEFAULT) [address] [place] [address] Hematocrit (Bld) [Volume fraction] 31.6 % Low 39.6-48.8 [facility] Comment on above: Performed By: #### U [id number] #### [facility] (DEFAULT) [address] [address] Hemoglobin (Bld) [Mass/Vol] 9.8 g/dL Low 13.4-16.8 [facility] Comment on above: Performed By: #### U [id number] #### [facility] (DEFAULT) [address] [address] Immature Grans % 2.1 % Normal [facility] Comment on above: Performed By: #### U [id number] #### [facility] (DEFAULT) [address] [address] Immature Grans Absolute 0.24 K/uL High <=0.07 [facility] Comment on above: Performed By: #### U [id number] #### [facility] (DEFAULT) [address] [address] Lymphocytes (Bld) [#/Vol] 3.01 10*3/uL Normal 0.83-3.57 [facility] Comment on above: Performed By: #### U [id number] #### [facility] (DEFAULT) [address] [address] Lymphocytes/100 WBC (Bld) 25.8 % Normal [facility] Comment on above: Performed By: #### U [id number] #### [facility] (DEFAULT) [address] [address] MCV (RBC) [Entitic vol] 87.3 fL Normal 79.0-94.5 [facility] Comment on above: Performed By: #### U [id number] #### [facility] (DEFAULT) [address] [address] Mean Cell Hgb 27.1 pg Normal 26.1-33.3 [facility] Comment on above: Performed By: #### U [id number] #### [facility] (DEFAULT) [address] [address] Mean Cell Hgb Conc 31.0 g/dL Low 31.9-36.5 [facility] Comment on above: Performed By: #### U [id number] #### [facility] (DEFAULT) [address] [address] Monocytes (Bld) [#/Vol] 0.87 10*3/uL Normal 0.24-0.93 [facility] Comment on above: Performed By: #### U [id number] #### [facility] (DEFAULT) [address] [place] [address] Monocytes/100 WBC (Bld) 7.5 % Normal [facility] Comment on above: Performed By: #### U [id number] #### [facility] (DEFAULT) [address] [address] Nucleated RBC 0.0 /100 WBC Normal <=0.2 [facility] Comment on above: Performed By: #### U [id number] #### [facility] (DEFAULT) [address] [address] Platelet mean volume (Bld) [Entitic vol] 10.4 fL Normal 8.7-12.3 [facility] Comment on above: Performed By: #### U [id number] #### [facility] (DEFAULT) [address] [address] Platelets (Bld) [#/Vol] 338 10*3/uL High 146-337 [facility] Comment on above: Performed By: #### U [id number] #### [facility] (DEFAULT) [address] [address] RBC (Bld) [#/Vol] 3.62 10*6/uL Low 4.38-5.83 [facility] Comment on above: Performed By: #### U [id number] #### [facility] (DEFAULT) [address] [place] [address] RBC Distribution 14.6 % High 10.9-14.3 [facility] Comment on above: Performed By: #### U [id number] #### [facility] (DEFAULT) [address] [place] [address] Segs + Bands Auto 57.1 % Normal [facility] Comment on above: Performed By: #### U [id number] #### [facility] (DEFAULT) [address] [place] [address] Segs + Bands,Absolute Auto 6.67 K/uL High 1.57-6.19 [facility] Comment on above: Performed By: #### U [id number] #### [facility] (DEFAULT) [address] [place] [address] WBC (Bld) [#/Vol] 11.67 10*3/uL High 3.73-10.10 [facility] Comment on above: Performed By: #### U [id number] #### [facility] (DEFAULT) [address] [place] [address] CHEM 7 (LYTES,BUN,CREA,GLUC) on 03-01-2024 Anion gap [Moles/Vol] 14 mmol/L Normal 7-17 [facility] Comment on above: Performed By: #### L [id number] #### [facility] (DEFAULT) [address] [place] [address] Chloride [Moles/Vol] 103 mmol/L Normal 98-108 [facility] Comment on above: Performed By: #### L [id number] #### [facility] (DEFAULT) [address] [place] [address] CO2 [Moles/Vol] 29 mmol/L Normal 21-31 [facility] Comment on above: Performed By: #### L [id number] #### [facility] (DEFAULT) [address] [place] [address] Creatinine [Mass/Vol] 0.65 mg/dL Low 0.70-1.30 [facility] Comment on above: Performed By: #### L [id number] #### U [facility] (DEFAULT) [address] [place] [address] eGFR, CKD-EPI, Male > Normal >=60 [facility] Comment on above: Result Comment: Repo rted eGFR is based on the CKD-EPI 2020 equation using creatinine, age, and sex. Performed By: #### L [id number] #### [facility] (DEFAULT) [address] [place] [address] Glucose [Mass/Vol] 85 mg/dL Normal 70-99 [facility] Comment on above: Performed By: #### L [id number] #### [facility] (DEFAULT) [address] [place] [address] Osmolality [Osmolality] 298 mosm/kg Normal 278-305 [facility] Comment on above: Performed By: #### L [id number] #### [facility] (DEFAULT) [address] [place] [address] Potassium [Moles/Vol] 4.5 mmol/L Normal 3.5-5.0 [facility] Comment on above: Performed By: #### L [id number] #### [facility] (DEFAULT) [address] [place] [address] Sodium [Moles/Vol] 141 mmol/L Normal 135-145 [facility] Comment on above: Performed By: #### L [id number] #### [facility] (DEFAULT) [address] [place] [address] Urea nitrogen [Mass/Vol] 22 mg/dL Normal 7-25 [facility] Comment on above: Performed By: #### L [id number] #### [facility] (DEFAULT) [address] [place] [address] Urea nitrogen/Creatinine [Mass ratio] 34 mg/mg Normal [facility] Comment on above: Performed By: #### L [id number] #### [facility] (DEFAULT) [address] [place] [address] MAGNESIUMon 03-01-2024 Magnesium [Mass/Vol] 1.7 mg/dL Normal 1.6-2.6 [facility] Comment on above: Performed By: #### L [id number] #### [facility] (DEFAULT) [address] [place] [address] PREALBUMINon 03-01-2024 Prealbumin [Mass/Vol] 29 mg/dL Normal 17-34 [facility] Comment on above: Performed By: #### L [id number] #### [facility] (DEFAULT) [address] [place] [address] CBC AND ELECTRONIC DIFFon Basophils (Bld) [#/Vol] 0.04 10*3/uL Normal 0.00-0.09 [facility] Comment on above: Performed By: #### P LAT #### [facility] (DEFAULT) [address] [place] [address] Basophils/100 WBC (Bld) 0.5 % Normal [facility] Comment on above: Performed By: #### P LAT #### [facility] (DEFAULT) [address] [place] [address] DIFF STATUS Electronic Differential Normal [facility] Comment on above: Performed By: #### P LAT #### [facility] (DEFAULT) [address] [place] [address] Eosinophils (Bld) [#/Vol] 0.66 10*3/uL High 0.00-0.48 [facility] Comment on above: Performed By: #### P LAT #### [facility] (DEFAULT) [address] [address] Eosinophils/100 WBC (Bld) 7.6 % Normal [facility] Comment on above: Performed By: #### P LAT #### [facility] (DEFAULT) [address] [place] [address] Hematocrit (Bld) [Volume fraction] 28.3 % Low 39.6-48.8 [facility] Comment on above: Performed By: #### P LAT #### U [facility] (DEFAULT) [address] [address] Hemoglobin (Bld) [Mass/Vol] 8.8 g/dL Low 13.4-16.8 [facility] Comment on above: Performed By: #### P LAT #### [facility] (DEFAULT) [address] [address] Immature Grans % 0.7 % Normal [facility] Comment on above: Performed By: #### P LAT #### [facility] (DEFAULT) [address] [address] Immature Grans Absolute 0.06 K/uL Normal <=0.07 [facility] Comment on above: Performed By: #### P LAT #### [facility] (DEFAULT) [address] [address] Lymphocytes (Bld) [#/Vol] 2.35 10*3/uL Normal 0.83-3.57 [facility] Comment on above: Performed By: #### P LAT #### [facility] (DEFAULT) [address] [address] Lymphocytes/100 WBC (Bld) 27.1 % Normal [facility] Comment on above: Performed By: #### P LAT #### [facility] (DEFAULT) [address] [address] MCV (RBC) [Entitic vol] 87.6 fL Normal 79.0-94.5 [facility] Comment on above: Performed By: #### P LAT #### [facility] (DEFAULT) [address] [address] Mean Cell Hgb 27.2 pg Normal 26.1-33.3 [facility] Comment on above: Performed By: #### P LAT #### [facility] (DEFAULT) [address] [address] Mean Cell Hgb Conc 31.1 g/dL Low 31.9-36.5 [facility] Comment on above: Performed By: #### P LAT #### [facility] (DEFAULT) [address] [address] Monocytes (Bld) [#/Vol] 0.74 10*3/uL Normal 0.24-0.93 [facility] Comment on above: Performed By: #### P LAT #### [facility] (DEFAULT) [address] [address] Monocytes/100 WBC (Bld) 8.5 % Normal [facility] Comment on above: Performed By: #### P LAT #### [facility] (DEFAULT) [address] [address] Nucleated RBC 0.0 /100 WBC Normal <=0.2 [facility] Comment on above: Performed By: #### P LAT #### [facility] (DEFAULT) [address] [address] RBC (Bld) [#/Vol] 3.23 10*6/uL Low 4.38-5.83 [facility] Comment on above: Performed By: #### P LAT #### [facility] (DEFAULT) [address] [address] RBC Distribution 14.3 % Normal 10.9-14.3 [facility] Comment on above: Performed By: #### P LAT #### [facility] (DEFAULT) [address] [address] Segs + Bands Auto 55.6 % Normal [facility] Comment on above: Performed By: #### P LAT #### [facility] (DEFAULT) [address] [address] Segs + Bands,Absolute Auto 4.83 K/uL Normal 1.57-6.19 [facility] Comment on above: Performed By: #### P LAT #### [facility] (DEFAULT) [address] [address] WBC (Bld) [#/Vol] 8.68 10*3/uL Normal 3.73-10.10 [facility] Comment on above: Performed By: #### P LAT #### [facility] (DEFAULT) [address] [place] [address] PLATELET COUNTon 02-27-2024 Platelet mean volume (Bld) [Entitic vol] 10.5 fL Normal 8.7-12.3 [facility] Comment on above: Performed By: #### P LAT #### [facility] (DEFAULT) [address] [place] [address] Platelets (Bld) [#/Vol] 276 10*3/uL Normal 146-337 [facility] Comment on above: Performed By: #### P LAT #### [facility] (DEFAULT) [address] [place] [address] 21615 ANTI XA LMWH (ENOXAPARIN),*E XACT TIME REQUIRED* 4 HR Justice 02-26-2024 Anti Xa LMWH (Enoxaparin) 4 Hr Post 0.24 Anti-Xa IU/mL Low 0.60-1.00 [facility] Comment on above: Order Comment: For i ndwelling catheters, specimen collection is acceptable on catheter day 1 and 2 only. ? Result Comment: Ther apeutic range applies to 4 hour post dose collections. Performed By: #### U [id number] #### [facility] (DEFAULT) [address] [place] [address] CREATININE SERUMon 4 Creatinine [Mass/Vol] 0.56 mg/dL Low 0.70-1.30 [facility] Comment on above: Performed By: #### C REAB ####[facility] (DEFAULT)[address] [place] [address] eGFR, CKD-EPI, Male > Normal >=60 [facility] Comment on above: Result Comment: Repo rted eGFR is based on the CKD-EPI 2020 equation using creatinine, age, and sex. Performed By: #### C REAB ####[facility] (DEFAULT)[address] [place] [address] ANTI XA LMWH (ENOXAPARIN),*E XACT TIME REQUIRED* 4 HR Justice 02-25-2024 Anti Xa LMWH (Enoxaparin) 4 Hr Post 0.16 Anti-Xa IU/mL Low 0.60-1.00 [facility] Comment on above: Order Comment: Draw 4 hours after enoxaparin dose Result Comment: Ther apeutic range applies to 4 hour post dose collections. Performed By: #### L [id number] #### [facility] (DEFAULT) [address] [place] [address] CREATININE SERUMon Creatinine [Mass/Vol] 0.76 mg/dL Normal 0.70-1.30 [facility] Comment on above: Performed By: #### L [id number] #### [facility] (DEFAULT) [address] [address] eGFR, CKD-EPI, Male > Normal >=60 [facility] Comment on above: Result Comment: Repo rted eGFR is based on the CKD-EPI 2020 equation using creatinine, age, and sex. Performed By: #### L [id number] #### [facility] (DEFAULT) [address] [address] CBC AND ELECTRONIC DIFFon Abs Baso Auto < Normal 0.00-0.09 [facility] Comment on above: Performed By: #### L [id number] #### [facility] (DEFAULT) [address] [place] [address] 10324 Basophils/100 WBC (Bld) 0.2 % Normal [facility] Comment on above: Performed By: #### L [id number] #### [facility] (DEFAULT) [address] [address] DIFF STATUS Electronic Differential Normal [facility] Comment on above: Performed By: #### L [id number] #### [facility] (DEFAULT) [address] [place] [address] Eosinophils (Bld) [#/Vol] 0.48 10*3/uL Normal 0.00-0.48 [facility] Comment on above: Performed By: #### L [id number] #### [facility] (DEFAULT) [address] [address] Eosinophils/100 WBC (Bld) 3.8 % Normal [facility] Comment on above: Performed By: #### L [id number] #### [facility] (DEFAULT) [address] [address] Hematocrit (Bld) [Volume fraction] 25.4 % Low 39.6-48.8 [facility] Comment on above: Performed By: #### L [id number] #### [facility] (DEFAULT) [address] [address] Hemoglobin (Bld) [Mass/Vol] 7.8 g/dL Low 13.4-16.8 [facility] Comment on above: Performed By: #### L [id number] #### [facility] (DEFAULT) [address] [address] Immature Grans % 0.6 % Normal [facility] Comment on above: Performed By: #### L [id number] #### [facility] (DEFAULT) [address] [address] Immature Grans Absolute 0.07 K/uL Normal <=0.07 [facility] Comment on above: Performed By: #### L [id number] #### [facility] (DEFAULT) [address] [place] [address] Lymphocytes (Bld) [#/Vol] 1.91 10*3/uL Normal 0.83-3.57 [facility] Comment on above: Performed By: #### L [id number] #### [facility] (DEFAULT) [address] [address] Lymphocytes/100 WBC (Bld) 15.2 % Normal [facility] Comment on above: Performed By: #### L [id number] #### [facility] (DEFAULT) [address] [place] [address] 10155 MCV (RBC) [Entitic vol] 89.4 fL Normal 79.0-94.5 [facility] Comment on above: Performed By: #### L [id number] #### [facility] (DEFAULT) [address] [place] [address] 57178 Mean Cell Hgb 27.5 pg Normal 26.1-33.3 [facility] Comment on above: Performed By: #### L [id number] #### [facility] (DEFAULT) [address] [place] [address] 72047 Mean Cell Hgb Conc 30.7 g/dL Low 31.9-36.5 [facility] Comment on above: Performed By: #### L [id number] #### [facility] (DEFAULT) [address] [place] [address] Monocytes (Bld) [#/Vol] 1.03 10*3/uL High 0.24-0.93 [facility] Comment on above: Performed By: #### L [id number] #### [facility] (DEFAULT) [address] [address] Monocytes/100 WBC (Bld) 8.2 % Normal [facility] Comment on above: Performed By: #### L [id number] #### [facility] (DEFAULT) [address] [address] Nucleated RBC 0.0 /100 WBC Normal <=0.2 [facility] Comment on above: Performed By: #### L [id number] #### [facility] (DEFAULT) [address] [place] [address] Platelet mean volume (Bld) [Entitic vol] 10.7 fL Normal 8.7-12.3 [facility] Comment on above: Performed By: #### L [id number] #### [facility] (DEFAULT) [address] [place] [address] Platelets (Bld) [#/Vol] 203 10*3/uL Normal 146-337 [facility] Comment on above: Performed By: #### L [id number] #### [facility] (DEFAULT) [address] [place] [address] RBC (Bld) [#/Vol] 2.84 10*6/uL Low 4.38-5.83 [facility] Comment on above: Performed By: #### L [id number] #### [facility] (DEFAULT) [address] [place] [address] RBC Distribution 14.9 % High 10.9-14.3 [facility] Comment on above: Performed By: #### L [id number] #### [facility] (DEFAULT) [address] [place] [address] Segs + Bands Auto 72.0 % Normal [facility] Comment on above: Performed By: #### L [id number] #### [facility] (DEFAULT) [address] [place] [address] Segs + Bands,Absolute Auto 9.06 K/uL High 1.57-6.19 [facility] Comment on above: Performed By: #### L [id number] #### [facility] (DEFAULT) [address] [place] [address] WBC (Bld) [#/Vol] 12.57 10*3/uL High 3.73-10.10 [facility] Comment on above: Performed By: #### L [id number] #### [facility] (DEFAULT) [address] [place] [address] CREATININE SERUMon 4 Creatinine [Mass/Vol] 0.52 mg/dL Low 0.70-1.30 [facility] Comment on above: Performed By: #### C REAB, MGO ####[facility] (DEFAULT)[address] [place] [address] eGFR, CKD-EPI, Male > Normal >=60 [facility] Comment on above: Result Comment: Repo rted eGFR is based on the CKD-EPI 2020 equation using creatinine, age, and sex. Performed By: #### C CARLOS MGO ####[facility] (DEFAULT)[address] [place] [address] MAGNESIUMon 02-24-2024 Magnesium [Mass/Vol] 2.0 mg/dL Normal 1.6-2.6 [facility] Comment on above: Performed By: #### C CARLOS MGO ####[facility] (DEFAULT)[address] [place] [address] CALCIUMon 02-23-2024 Calcium [Mass/Vol] 8.0 mg/dL Low 8.6-10.5 [facility] Comment on above: Performed By: #### P LAT #### [facility] (DEFAULT) [address] [place] [address] CBC AND ELECTRONIC DIFFon Abs Baso Auto < Normal 0.00-0.09 [facility] Comment on above: Performed By: #### L [id number] #### [facility] (DEFAULT) [address] [place] [address] Basophils/100 WBC (Bld) 0.2 % Normal [facility] Comment on above: Performed By: #### L [id number] #### [facility] (DEFAULT) [address] [place] [address] DIFF STATUS Electronic Differential Normal [facility] Comment on above: Performed By: #### L [id number] #### [facility] (DEFAULT) [address] [place] [address] Eosinophils (Bld) [#/Vol] 0.54 10*3/uL High 0.00-0.48 [facility] Comment on above: Performed By: #### L [id number] #### [facility] (DEFAULT) [address] [place] [address] Eosinophils/100 WBC (Bld) 4.3 % Normal [facility] Comment on above: Performed By: #### L [id number] #### [facility] (DEFAULT) [address] [address] Hematocrit (Bld) [Volume fraction] 26.3 % Low 39.6-48.8 [facility] Comment on above: Performed By: #### L [id number] #### [facility] (DEFAULT) [address] [address] Hemoglobin (Bld) [Mass/Vol] 8.1 g/dL Low 13.4-16.8 [facility] Comment on above: Performed By: #### L [id number] #### [facility] (DEFAULT) [address] [address] Immature Grans % 0.4 % Normal [facility] Comment on above: Performed By: #### L [id number] #### [facility] (DEFAULT) [address] [address] Immature Grans Absolute 0.05 K/uL Normal <=0.07 [facility] Comment on above: Performed By: #### L [id number] #### [facility] (DEFAULT) [address] [address] Lymphocytes (Bld) [#/Vol] 1.83 10*3/uL Normal 0.83-3.57 [facility] Comment on above: Performed By: #### L [id number] #### [facility] (DEFAULT) [address] [address] Lymphocytes/100 WBC (Bld) 14.5 % Normal [facility] Comment on above: Performed By: #### L [id number] #### [facility] (DEFAULT) [address] [address] MCV (RBC) [Entitic vol] 90.1 fL Normal 79.0-94.5 [facility] Comment on above: Performed By: #### L [id number] #### [facility] (DEFAULT) [address] [address] Mean Cell Hgb 27.7 pg Normal 26.1-33.3 [facility] Comment on above: Performed By: #### L [id number] #### [facility] (DEFAULT) [address] [place] [address] Mean Cell Hgb Conc 30.8 g/dL Low 31.9-36.5 [facility] Comment on above: Performed By: #### L [id number] #### [facility] (DEFAULT) [address] [place] [address] Monocytes (Bld) [#/Vol] 0.90 10*3/uL Normal 0.24-0.93 [facility] Comment on above: Performed By: #### L [id number] #### [facility] (DEFAULT) [address] [place] [address] 25549 Monocytes/100 WBC (Bld) 7.1 % Normal [facility] Comment on above: Performed By: #### L [id number] #### [facility] (DEFAULT) [address] [place] [address] Nucleated RBC 0.0 /100 WBC Normal <=0.2 [facility] Comment on above: Performed By: #### L [id number] #### [facility] (DEFAULT) [address] [place] [address] Platelet mean volume (Bld) [Entitic vol] 10.6 fL Normal 8.7-12.3 [facility] Comment on above: Performed By: #### L [id number] #### [facility] (DEFAULT) [address] [place] [address] Platelets (Bld) [#/Vol] 215 10*3/uL Normal 146-337 [facility] Comment on above: Performed By: #### L [id number] #### [facility] (DEFAULT) [address] [place] [address] 286[address] RBC (Bld) [#/Vol] 2.92 10*6/uL Low 4.38-5.83 [facility] Comment on above: Performed By: #### L [id number] #### [facility] (DEFAULT) [address] [place] [address]73 RBC Distribution 15.2 % High 10.9-14.3 [facility] Comment on above: Performed By: #### L [id number] #### [facility] (DEFAULT) [address] [place] [address] Segs + Bands Auto 73.5 % Normal [facility] Comment on above: Performed By: #### L [id number] #### [facility] (DEFAULT) [address] [place] [address] Segs + Bands,Absolute Auto 9.27 K/uL High 1.57-6.19 [facility] Comment on above: Performed By: #### L [id number] #### [facility] (DEFAULT) [address] [place] [address] WBC (Bld) [#/Vol] 12.62 10*3/uL High 3.73-10.10 [facility] Comment on above: Performed By: #### L [id number] #### [facility] (DEFAULT) [address] [place] [address] CHEM 7 (LYTES,BUN,CREA,GLUC) on 02-23-2024 Anion gap [Moles/Vol] 15 mmol/L Normal 7-17 [facility] Comment on above: Performed By: #### U R #### [facility] (DEFAULT) [address] [place] [address]855 Chloride [Moles/Vol] 104 mmol/L Normal 98-108 [facility] Comment on above: Performed By: #### U R #### [facility] (DEFAULT) [address] [place] [address] 89864 CO2 [Moles/Vol] 28 mmol/L Normal 21-31 [facility] Comment on above: Performed By: #### U R #### [facility] (DEFAULT) [address] [place] [address] 63358 Creatinine [Mass/Vol] 0.55 mg/dL Low 0.70-1.30 [facility] Comment on above: Performed By: #### U R #### [facility] (DEFAULT) [address] [place] [address] 71133 eGFR, CKD-EPI, Male > Normal >=60 [facility] Comment on above: Result Comment: Repo rted eGFR is based on the CKD-EPI 2020 equation using creatinine, age, and sex. Performed By: #### U R #### [facility] (DEFAULT) [address] [place] [address] Glucose [Mass/Vol] 84 mg/dL Normal 70-99 [facility] Comment on above: Performed By: #### U R #### [facility] (DEFAULT) [address] [place] [address] Osmolality [Osmolality] 298 mosm/kg Normal 278-305 [facility] Comment on above: Performed By: #### U R #### [facility] (DEFAULT) [address] [place] [address] 04050 Potassium [Moles/Vol] 3.8 mmol/L Normal 3.5-5.0 [facility] Comment on above: Performed By: #### U R #### [facility] (DEFAULT) [address] [place] [address] 32287 Sodium [Moles/Vol] 143 mmol/L Normal 135-145 [facility] Comment on above: Performed By: #### U R #### [facility] (DEFAULT) [address] [place] [address] 59329 Urea nitrogen [Mass/Vol] 16 mg/dL Normal 7-25 [facility] Comment on above: Performed By: #### U R #### [facility] (DEFAULT) [address] [place] [address] 86095 Urea nitrogen/Creatinine [Mass ratio] 29 mg/mg Normal [facility] Comment on above: Performed By: #### U R #### [facility] (DEFAULT) [address] [place] [address] MAGNESIUMon 02-23-2024 Magnesium [Mass/Vol] 1.5 mg/dL Low 1.6-2.6 [facility] Comment on above: Performed By: #### U R #### [facility] (DEFAULT) [address] [place] [address] PREALBUMINon 02-23-2024 Prealbumin [Mass/Vol] 22 mg/dL Normal 17-34 [facility] Comment on above: Performed By: #### U R #### [facility] (DEFAULT) [address] [place] [address] CREATININE SERUMon 4 Creatinine [Mass/Vol] 0.50 mg/dL Low 0.70-1.30 [facility] Comment on above: Performed By: #### L [id number] #### [facility] (DEFAULT) [address] [place] [address] 8[address]69 eGFR, CKD-EPI, Male > Normal >=60 [facility] Comment on above: Result Comment: Repo rted eGFR is based on the CKD-EPI 2020 equation using creatinine, age, and sex. Performed By: #### L [id number] #### [facility] (DEFAULT) [address] [place] [address] VANCOMYCIN LEVEL, TROUGH (MS E DRUG LEVEL)on 02-22-2024 Vancomycin, Trough 15.7 mcg/mL Normal Therapeut ic Range: 10.0-20.0 mcg/mL [facility] Comment on above: Order Comment: Pleas e draw level at specified interval PRIOR to next dose. Performed By: #### V ANCTR #### [facility] (DEFAULT) [address] [place] [address] CREATININE SERUMon 4 Creatinine [Mass/Vol] 0.59 mg/dL Low 0.70-1.30 [facility] Comment on above: Performed By: #### P LAT #### [facility] (DEFAULT) [address] [address] eGFR, CKD-EPI, Male > Normal >=60 [facility] Comment on above: Result Comment: Repo rted eGFR is based on the CKD-EPI 2020 equation using creatinine, age, and sex. Performed By: #### P LAT #### [facility] (DEFAULT) [address] [address] PLATELET COUNTon 02-21-2024 Platelet mean volume (Bld) [Entitic vol] 10.4 fL Normal 8.7-12.3 [facility] Comment on above: Performed By: #### P LAT ####[facility] (DEFAULT)[address] [address] Platelets (Bld) [#/Vol] 235 10*3/uL Normal 146-337 [facility] Comment on above: Performed By: #### P LAT ####[facility] (DEFAULT)[address] [address] CREATININE SERUMon Creatinine [Mass/Vol] 0.49 mg/dL Low 0.70-1.30 [facility] Comment on above: Performed By: #### L [id number] #### [facility] (DEFAULT) [address] [address] eGFR, CKD-EPI, Male > Normal >=60 [facility] Comment on above: Result Comment: Repo rted eGFR is based on the CKD-EPI 2020 equation using creatinine, age, and sex. Performed By: #### L [id number] #### [facility] (DEFAULT) [address] [address] URINALYSIS REFLEX TO CULTURE PERFORMABLEon 02-20-2024 Appearance (U) Clear Normal Clear [facility] Comment on above: Order Comment: For i ndwelling catheters, specimen collection is acceptable on catheter day 1 and 2 only. ? Performed By: #### L [id number] #### [facility] (DEFAULT) [address] [place] [address] 59556 Bacteria PRESENT Abnormal ABSENT [facility] Comment on above: Order Comment: For i ndwelling catheters, specimen collection is acceptable on catheter day 1 and 2 only. ? Performed By: #### L [id number] #### [facility] (DEFAULT) [address] [place] [address] 73375 Blood Urine Small Abnormal Negative [facility] Comment on above: Order Comment: For i ndwelling catheters, specimen collection is acceptable on catheter day 1 and 2 only. ? Performed By: #### L [id number] #### [facility] (DEFAULT) [address] [place] [address] 87252 Color (U) Yellow Normal Yellow [facility] Comment on above: Order Comment: For i ndwelling catheters, specimen collection is acceptable on catheter day 1 and 2 only. ? Performed By: #### L [id number] #### [facility] (DEFAULT) [address] [place] [address] 25444 Glucose Ql (U) Negative Normal Negative [facility] Comment on above: Order Comment: For i ndwelling catheters, specimen collection is acceptable on catheter day 1 and 2 only. ? Performed By: #### L [id number] #### [facility] (DEFAULT) [address] [place] [address]120 Hyaline casts LM Ql (Urine sed) 3 - 5 Abnormal (none) [facility] Comment on above: Order Comment: For i ndwelling catheters, specimen collection is acceptable on catheter day 1 and 2 only. ? Performed By: #### L [id number] #### [facility] (DEFAULT) [address] [place] [address] 18906 Ketones Ql (U) Negative Normal Negative [facility] Comment on above: Order Comment: For i ndwelling catheters, specimen collection is acceptable on catheter day 1 and 2 only. ? Performed By: #### L AB980 #### [facility] (DEFAULT) [address] [place] [address] 50976 Leukocyte esterase Test strip Ql (U) Moderate Abnormal Negative [facility] Comment on above: Order Comment: For i ndwelling catheters, specimen collection is acceptable on catheter day 1 and 2 only. ? Performed By: #### L [id number] #### [facility] (DEFAULT) [address] [place] [address] 22464 Nitrites Urine Positive Abnormal Negative [facility] Comment on above: Order Comment: For i ndwelling catheters, specimen collection is acceptable on catheter day 1 and 2 only. ? Performed By: #### L [id number] #### [facility] (DEFAULT) [address] [place] [address] pH (U) 6.5 [pH] Normal 5.0-7.0 [facility] Comment on above: Order Comment: For i ndwelling catheters, specimen collection is acceptable on catheter day 1 and 2 only. ? Performed By: #### L [id number] #### [facility] (DEFAULT) [address] [place] [address]68 Protein Urine Negative Normal Negative [facility] Comment on above: Order Comment: For i ndwelling catheters, specimen collection is acceptable on catheter day 1 and 2 only. ? Performed By: #### L [id number] #### [facility] (DEFAULT) [address] [address] RBC Urine 6-10 Abnormal 0-2 [facility] Comment on above: Order Comment: For i ndwelling catheters, specimen collection is acceptable on catheter day 1 and 2 only. ? Performed By: #### L [id number] #### [facility] (DEFAULT) [address] [address] Specific [place] Urine 1.011 Normal 1.001-1.035 [facility] Comment on above: Order Comment: For i ndwelling catheters, specimen collection is acceptable on catheter day 1 and 2 only. ? Performed By: #### L [id number] #### [facility] (DEFAULT) [address] [place] [address] Squamous/Epithelial Cells 0-2/hpf Normal 0-2/hpf, 3-5/hpf = 1+ [facility] Comment on above: Order Comment: For i ndwelling catheters, specimen collection is acceptable on catheter day 1 and 2 only. ? Performed By: #### L [id number] #### [facility] (DEFAULT) [address] [address] Urobilinogen Urine 0.2 E.U./dL Normal 0.2 E.U/d L, 1.0 E.U/dL [facility] Comment on above: Order Comment: For i ndwelling catheters, specimen collection is acceptable on catheter day 1 and 2 only. ? Performed By: #### L [id number] #### [facility] (DEFAULT) [address] [address] WBC Urine 11 - 20 Abnormal 0 - 5 [facility] Comment on above: Order Comment: For i ndwelling catheters, specimen collection is acceptable on catheter day 1 and 2 only. ? Performed By: #### L [id number] #### [facility] (DEFAULT) [address] [address] URINE CULTUREon 02-20-2024 Amikacin [Susceptibility] <= Invalid Interpretation Code [facility] Comment on above: Order Comment: For i ndwelling catheters, specimen collection is acceptable on catheter day 1 and 2 only. Molina top vacutainer. Urine must be to the fill line to process (4mls). If minimum volume, send urine in a yellow top vacutainer tube. For indwelling catheters, specimen collection is acceptable on catheter day 1 and 2 only. ? Performed By: #### U R #### [facility] (DEFAULT) [address] [address] Ampicillin [Susceptibility] >=32 Resistant [facility] Comment on above: Order Comment: For i ndwelling catheters, specimen collection is acceptable on catheter day 1 and 2 only. Molina top vacutainer. Urine must be to the fill line to process (4mls). If minimum volume, send urine in a yellow top vacutainer tube. For indwelling catheters, specimen collection is acceptable on catheter day 1 and 2 only. ? Performed By: #### U R #### [facility] (DEFAULT) [address] [place] [address] Ampicillin+Sulbactam [Susceptibility] 8 ug/mL Invalid Interpretation Code [facility] Comment on above: Order Comment: For i ndwelling catheters, specimen collection is acceptable on catheter day 1 and 2 only. Molina top vacutainer. Urine must be to the fill line to process (4mls). If minimum volume, send urine in a yellow top vacutainer tube. For indwelling catheters, specimen collection is acceptable on catheter day 1 and 2 only. ? Performed By: #### U R #### [facility] (DEFAULT) [address] [address] ceFAZolin [Susceptibility] <= Invalid Interpretation Code [facility] Comment on above: Order Comment: For i ndwelling catheters, specimen collection is acceptable on catheter day 1 and 2 only. Molina top vacutainer. Urine must be to the fill line to process (4mls). If minimum volume, send urine in a yellow top vacutainer tube. For indwelling catheters, specimen collection is acceptable on catheter day 1 and 2 only. ? Result Comment: Cefa zolin susceptibility results can be inferred to the following oral cephalosporins: cephalexin, cefuroxime, and cefdinir. Performed By: #### U R #### [facility] (DEFAULT) [address] [address] Cefepime [Susceptibility] <= Invalid Interpretation Code [facility] Comment on above: Order Comment: For i ndwelling catheters, specimen collection is acceptable on catheter day 1 and 2 only. Molina top vacutainer. Urine must be to the fill line to process (4mls). If minimum volume, send urine in a yellow top vacutainer tube. For indwelling catheters, specimen collection is acceptable on catheter day 1 and 2 only. ? Performed By: #### U R #### [facility] (DEFAULT) [address] [address] cefTRIAXone [Susceptibility] <= Invalid Interpretation Code [facility] Comment on above: Order Comment: For i ndwelling catheters, specimen collection is acceptable on catheter day 1 and 2 only. Molina top vacutainer. Urine must be to the fill line to process (4mls). If minimum volume, send urine in a yellow top vacutainer tube. For indwelling catheters, specimen collection is acceptable on catheter day 1 and 2 only. ? Performed By: #### U R #### [facility] (DEFAULT) [address] [address] Ciprofloxacin [Susceptibility] <= Invalid Interpretation Code [facility] Comment on above: Order Comment: For i ndwelling catheters, specimen collection is acceptable on catheter day 1 and 2 only. Molina top vacutainer. Urine must be to the fill line to process (4mls). If minimum volume, send urine in a yellow top vacutainer tube. For indwelling catheters, specimen collection is acceptable on catheter day 1 and 2 only. ? Performed By: #### U R #### [facility] (DEFAULT) [address] [address] Gentamicin [Susceptibility] <= Invalid Interpretation Code [facility] Comment on above: Order Comment: For i ndwelling catheters, specimen collection is acceptable on catheter day 1 and 2 only. Molina top vacutainer. Urine must be to the fill line to process (4mls). If minimum volume, send urine in a yellow top vacutainer tube. For indwelling catheters, specimen collection is acceptable on catheter day 1 and 2 only. ? Performed By: #### U R #### [facility] (DEFAULT) [address] [address] Nitrofurantoin [Susceptibility] 128 ug/mL Resistant [facility] Comment on above: Order Comment: For i ndwelling catheters, specimen collection is acceptable on catheter day 1 and 2 only. Molina top vacutainer. Urine must be to the fill line to process (4mls). If minimum volume, send urine in a yellow top vacutainer tube. For indwelling catheters, specimen collection is acceptable on catheter day 1 and 2 only. ? Performed By: #### U R #### [facility] (DEFAULT) [address] [address] Tobramycin [Susceptibility] <= Invalid Interpretation Code [facility] Comment on above: Order Comment: For i ndwelling catheters, specimen collection is acceptable on catheter day 1 and 2 only. Molina top vacutainer. Urine must be to the fill line to process (4mls). If minimum volume, send urine in a yellow top vacutainer tube. For indwelling catheters, specimen collection is acceptable on catheter day 1 and 2 only. ? Performed By: #### U R #### [facility] (DEFAULT) [address] [address] Trimethoprim+Sulfamet hoxazole [Susceptibility] <= Invalid Interpretation Code [facility] Comment on above: Order Comment: For i ndwelling catheters, specimen collection is acceptable on catheter day 1 and 2 only. Molina top vacutainer. Urine must be to the fill line to process (4mls). If minimum volume, send urine in a yellow top vacutainer tube. For indwelling catheters, specimen collection is acceptable on catheter day 1 and 2 only. ? Performed By: #### U R #### [facility] (DEFAULT) [address] [address] VANCOMYCIN LEVEL, TROUGH (MS E DRUG LEVEL)on 02-20-2024 Vancomycin, Trough 6.2 mcg/mL Low Therapeut ic Range: 10.0-20.0 mcg/mL [facility] Comment on above: Order Comment: Pleas e draw level at specified interval PRIOR to next dose. Performed By: #### L [id number] #### [facility] (DEFAULT) [address] [address] CALCIUMon 02-19-2024 Calcium [Mass/Vol] 8.4 mg/dL Low 8.6-10.5 [facility] Comment on above: Performed By: #### U R #### [facility] (DEFAULT) [address] [address] CBC AND ELECTRONIC DIFFon Basophils (Bld) [#/Vol] 0.05 10*3/uL Normal 0.00-0.09 [facility] Comment on above: Performed By: #### L [id number] #### [facility] (DEFAULT) [address] [address] Basophils/100 WBC (Bld) 0.7 % Normal [facility] Comment on above: Performed By: #### L [id number] #### [facility] (DEFAULT) [address] [address] DIFF STATUS Electronic Differential Normal [facility] Comment on above: Performed By: #### L [id number] #### [facility] (DEFAULT) [address] [place] [address] Eosinophils (Bld) [#/Vol] 0.49 10*3/uL High 0.00-0.48 [facility] Comment on above: Performed By: #### L [id number] #### [facility] (DEFAULT) [address] [address] Eosinophils/100 WBC (Bld) 6.6 % Normal [facility] Comment on above: Performed By: #### L [id number] #### [facility] (DEFAULT) [address] [address] Hematocrit (Bld) [Volume fraction] 27.3 % Low 39.6-48.8 [facility] Comment on above: Performed By: #### L [id number] #### [facility] (DEFAULT) [address] [address] Hemoglobin (Bld) [Mass/Vol] 8.4 g/dL Low 13.4-16.8 [facility] Comment on above: Performed By: #### L [id number] #### [facility] (DEFAULT) [address] [address] Immature Grans % 0.4 % Normal [facility] Comment on above: Performed By: #### L [id number] #### [facility] (DEFAULT) [address] [address] Immature Grans Absolute < Normal <=0.07 [facility] Comment on above: Performed By: #### L [id number] #### [facility] (DEFAULT) [address] [address] Lymphocytes (Bld) [#/Vol] 1.88 10*3/uL Normal 0.83-3.57 [facility] Comment on above: Performed By: #### L [id number] #### [facility] (DEFAULT) [address] [address] Lymphocytes/100 WBC (Bld) 25.3 % Normal [facility] Comment on above: Performed By: #### L [id number] #### [facility] (DEFAULT) [address] [address] MCV (RBC) [Entitic vol] 88.9 fL Normal 79.0-94.5 [facility] Comment on above: Performed By: #### L [id number] #### [facility] (DEFAULT) [address] [address] Mean Cell Hgb 27.4 pg Normal 26.1-33.3 [facility] Comment on above: Performed By: #### L [id number] #### [facility] (DEFAULT) [address] [address] Mean Cell Hgb Conc 30.8 g/dL Low 31.9-36.5 [facility] Comment on above: Performed By: #### L [id number] #### [facility] (DEFAULT) [address] [place] [address] Monocytes (Bld) [#/Vol] 0.69 10*3/uL Normal 0.24-0.93 [facility] Comment on above: Performed By: #### L [id number] #### [facility] (DEFAULT) [address] [address] Monocytes/100 WBC (Bld) 9.3 % Normal [facility] Comment on above: Performed By: #### L [id number] #### [facility] (DEFAULT) [address] [address] Nucleated RBC 0.0 /100 WBC Normal <=0.2 [facility] Comment on above: Performed By: #### L [id number] #### [facility] (DEFAULT) [address] [place] [address] Platelet mean volume (Bld) [Entitic vol] 10.5 fL Normal 8.7-12.3 [facility] Comment on above: Performed By: #### L [id number] #### [facility] (DEFAULT) [address] [place] [address] Platelets (Bld) [#/Vol] 268 10*3/uL Normal 146-337 [facility] Comment on above: Performed By: #### L [id number] #### [facility] (DEFAULT) [address] [place] [address] RBC (Bld) [#/Vol] 3.07 10*6/uL Low 4.38-5.83 [facility] Comment on above: Performed By: #### L [id number] #### [facility] (DEFAULT) [address] [place] [address] RBC Distribution 14.7 % High 10.9-14.3 [facility] Comment on above: Performed By: #### L [id number] #### [facility] (DEFAULT) [address] [place] [address] Segs + Bands Auto 57.7 % Normal [facility] Comment on above: Performed By: #### L [id number] #### [facility] (DEFAULT) [address] [place] [address] Segs + Bands,Absolute Auto 4.30 K/uL Normal 1.57-6.19 [facility] Comment on above: Performed By: #### L [id number] #### [facility] (DEFAULT) [address] [place] [address] WBC (Bld) [#/Vol] 7.44 10*3/uL Normal 3.73-10.10 [facility] Comment on above: Performed By: #### L [id number] #### [facility] (DEFAULT) [address] [place] [address] CHEM 7 (LYTES,BUN,CREA,GLUC) on 02-19-2024 Anion gap [Moles/Vol] 15 mmol/L Normal 7-17 [facility] Comment on above: Performed By: #### U R #### [facility] (DEFAULT) [address] [place] [address] Chloride [Moles/Vol] 103 mmol/L Normal 98-108 [facility] Comment on above: Performed By: #### U R #### [facility] (DEFAULT) [address] [place] [address] CO2 [Moles/Vol] 27 mmol/L Normal 21-31 [facility] Comment on above: Performed By: #### U R #### [facility] (DEFAULT) [address] [place] [address] Creatinine [Mass/Vol] 0.56 mg/dL Low 0.70-1.30 [facility] Comment on above: Performed By: #### U R #### [facility] (DEFAULT) [address] [place] [address] eGFR, CKD-EPI, Male > Normal >=60 [facility] Comment on above: Result Comment: Repo rted eGFR is based on the CKD-EPI 2020 equation using creatinine, age, and sex. Performed By: #### U R #### [facility] (DEFAULT) [address] [place] [address] Glucose [Mass/Vol] 91 mg/dL Normal 70-99 [facility] Comment on above: Performed By: #### U R #### [facility] (DEFAULT) [address] [place] [address] Osmolality [Osmolality] 294 mosm/kg Normal 278-305 [facility] Comment on above: Performed By: #### U R #### [facility] (DEFAULT) [address] [place] [address] Potassium [Moles/Vol] 4.1 mmol/L Normal 3.5-5.0 [facility] Comment on above: Performed By: #### U R #### [facility] (DEFAULT) [address] [place] [address] Sodium [Moles/Vol] 141 mmol/L Normal 135-145 [facility] Comment on above: Performed By: #### U R #### [facility] (DEFAULT) [address] [place] [address] Urea nitrogen [Mass/Vol] 13 mg/dL Normal 7-25 [facility] Comment on above: Performed By: #### U R #### [facility] (DEFAULT) [address] [place] [address] Urea nitrogen/Creatinine [Mass ratio] 23 mg/mg Normal [facility] Comment on above: Performed By: #### U R #### [facility] (DEFAULT) [address] [place] [address] HEPATIC FUNCTION PANELon Albumin [Mass/Vol] 2.9 g/dL Low 3.5-5.0 [facility] Comment on above: Performed By: #### U R #### [facility] (DEFAULT) [address] [place] [address] ALP [Catalytic activity/Vol] 72 U/L Normal 32-126 [facility] Comment on above: Performed By: #### U R #### [facility] (DEFAULT) [address] [place] [address] ALT [Catalytic activity/Vol] 7 U/L Low 10-52 [facility] Comment on above: Performed By: #### U R #### [facility] (DEFAULT) [address] [place] [address] AST [Catalytic activity/Vol] 13 U/L Normal 10-39 [facility] Comment on above: Performed By: #### U R #### [facility] (DEFAULT) [address] [place] [address] Bilirubin [Mass/Vol] 0.3 mg/dL Normal <1.5 [facility] Comment on above: Performed By: #### U R #### [facility] (DEFAULT) [address] [place] [address] Bilirubin.indirect [Mass/Vol] 0.1 mg/dL Normal <0.3 [facility] Comment on above: Performed By: #### U R #### [facility] (DEFAULT) [address] [place] [address] Protein [Mass/Vol] 5.1 g/dL Low 6.4-8.3 [facility] Comment on above: Performed By: #### U R #### [facility] (DEFAULT) [address] [place] [address] MAGNESIUMon 02-19-2024 Magnesium [Mass/Vol] 1.8 mg/dL Normal 1.6-2.6 [facility] Comment on above: Performed By: #### U R #### [facility] (DEFAULT) [address] [place] [address] PHOSPHATE, INORGANICon 02-18 Phosphorous 5.2 mg/dL High 2.2-4.6 [facility] Comment on above: Performed By: #### U R #### [facility] (DEFAULT) [address] [place] [address] PREALBUMINon 02-19-2024 Prealbumin [Mass/Vol] 22 mg/dL Normal 17-34 [facility] Comment on above: Performed By: #### U R #### [facility] (DEFAULT) [address] [place] [address] PT,INR,PTTon 02-19-2024 aPTT Coag (Bld) [Time] 33.6 s Normal 24.0-34.3 [facility] Comment on above: Performed By: #### P TPTT #### [facility] (DEFAULT) [address] [place] [address] INR Coag (PPP) [Relative time] 1.2 {INR} High 0.9-1.1 [facility] Comment on above: Performed By: #### P TPTT #### [facility] (DEFAULT) [address] [place] [address] PT Coag (PPP) [Time] 15.0 s High 11.9-14.2 [facility] Comment on above: Performed By: #### P TPTT #### [facility] (DEFAULT) [address] [place] [address] VITAMIN D (25-HYDROXY,TOTAL) on 02-19-2024 25-OH Vitamin D Total 22.4 ng/mL Low 30.0-100.0 [facility] Comment on above: Order Comment: Vitam in D values have been shown to be falsely decreased in lipemic samples and should be interpreted with caution. Result Comment: <10 Deficiency 10-29 Insufficiency 30-100 Optimal Level >100 Possible Toxicity Performed By: #### L [id number] #### [facility] (DEFAULT) [address] [place] [address] XR SPINE CERVICAL 2-3 VIEWSo n 02-19-2024 XR SPINE CERVICAL 2-3 VIEWS EXAM: XR SPINE CERVICAL 2-3 VIEWS, 02/19/2024 16:12 PM COMPARISON: CT cervical spine January 26, 2024. CLINICAL INDICATIONS: prior hx of C3-T2 PIF and C4-C7 decompression FINDINGS: 3 images obtained. Cervical Vertebral: Redemonstration postsurgical changes related to C5 corpectomy with expandable cage spacer in place and anterior fusion plate extending from C4 through C6. This hardware appears stable from the prior CT. There is been interval postsurgical changes with new posterior fusion hardware extending from C3 through T2. Hardware is intact. Alignment is anatomic. No gross fracture. Spinal canal appears stable. Disc: No significant disc space narrowing. Joint: Facet joints are anatomically aligned. Soft Tissue: Postsurgical soft tissue swelling posteriorly. IMPRESSION: Interval posterior fusion C3-T2. No acute complication evident. Previous postsurgical changes C4-C6 appears stable. Normal [facility] Disch [place] 02-18-2024 Disch [facility] XR CHEST 1 VIEW PORTABLEon 1 XR CHEST 1 VIEW PORTABLE EXAM: XR CHEST 1 VIEW PORTABLE, 02/18/2024 16:06 PM COMPARISON: No prior studies available for comparison. CLINICAL INDICATIONS: placement of PICC line RELEVANT CLINICAL HISTORY: FINDINGS: (Adequate technique) Implanted Devices: Postop changes at the cervicothoracic junction. Thorax: Right PICC tip in the right atrium. Loop recorder noted over the left chest. IMPRESSION: No acute process. Postop changes. Normal [facility] CREATININE, SERUMon 02-17-20 Creatinine [Mass/Vol] 0.55 mg/dL Normal 0.50-1.30 [facility] Comment on above: Order Comment: Daily for first 7 days of vancomycin therapy for monitoring purposes per [facility] has implemented the eGFR calculation approach that does not have a coefficient for race that conforms to the NKF-ASN Task Force Recommendations. Performed By: #### [id number] #### [facility] [address] [address] Les Malone M.D. [id number] EGFR 125 mL/min/1.73 m2 Normal >=60 [facility] Comment on above: Order Comment: Daily for first 7 days of vancomycin therapy for monitoring purposes per [facility] has implemented the eGFR calculation approach that does not have a coefficient for race that conforms to the NKF-ASN Task Force Recommendations. Result Comment: Fanta mated GFR was calculated using the 2020 CKD-EPI creatinine equation. Performed By: #### [id number] #### [facility] [address] [address] Les Malone M.D. [id number] VANCOMYCIN LEVEL, RANDOMon 1 VANCOMYCIN RANDOM 28.2 mcg/mL Normal [facility] Comment on above: Order Comment: As of 02/2022 vancomycin dosing for [facility] inpatients will be done by Bayesian dosing software rather than off traditional trough values. Please contact the site specific inpatient pharmacy before making dose changes off of trough values alone for admitted patients.No established reference range. Performed By: #### [id number] #### [facility] [address] [address] Les Malone M.D. [id number] CREATININE, SERUMon 02-16-20 24 Creatinine [Mass/Vol] 0.59 mg/dL Normal 0.50-1.30 [facility] Comment on above: Order Comment: Daily for first 7 days of vancomycin therapy for monitoring purposes per [facility] has implemented the eGFR calculation approach that does not have a coefficient for race that conforms to the NKF-ASN Task Force Recommendations. Performed By: #### [id number] #### [facility] [address] [address] Les Malone M.D. [id number] EGFR 122 mL/min/1.73 m2 Normal >=60 [facility] [facility] Comment on above: Order Comment: Daily for first 7 days of vancomycin therapy for monitoring purposes per [facility] has implemented the eGFR calculation approach that does not have a coefficient for race that conforms to the NKF-ASN Task Force Recommendations. Result Comment: Fanta mated GFR was calculated using the 2020 CKD-EPI creatinine equation. Performed By: #### 4 [id number] #### LAB [address] [id number] eLs Malone M.D. [id number] CREATININE, SERUMon 02-15-20 24 Creatinine [Mass/Vol] 0.59 mg/dL Normal 0.50-1.30 [facility] Comment on above: Order Comment: Daily for first 7 days of vancomycin therapy for monitoring purposes per [facility] has implemented the eGFR calculation approach that does not have a coefficient for race that conforms to the NKF-ASN Task Force Recommendations. Performed By: #### 4 5336 #### LAB [address] [address] Les Malone M.D. [id number] EGFR 122 mL/min/1.73 m2 Normal >=60 [facility] Comment on above: Order Comment: Daily for first 7 days of vancomycin therapy for monitoring purposes per [facility] has implemented the eGFR calculation approach that does not have a coefficient for race that conforms to the NKF-ASN Task Force Recommendations. Result Comment: Fanta mated GFR was calculated using the 2020 CKD-EPI creatinine equation. Performed By: #### 4 5336 #### LAB [address] [place], [place] [address] Les Malone M.D. [id number] CREATININE, SERUMon 02-14-20 24 Creatinine [Mass/Vol] 0.50 mg/dL Normal 0.50-1.30 [facility] Comment on above: Order Comment: Daily for first 7 days of vancomycin therapy for monitoring purposes per [facility] has implemented the eGFR calculation approach that does not have a coefficient for race that conforms to the NKF-ASN Task Force Recommendations. Performed By: #### 4 5336 #### LAB [address], [place] [address] Les Malone M.D. [id number] EGFR 128 mL/min/1.73 m2 Normal >=60 [facility] Comment on above: Order Comment: Daily for first 7 days of vancomycin therapy for monitoring purposes per [facility] has implemented the eGFR calculation approach that does not have a coefficient for race that conforms to the NKF-ASN Task Force Recommendations. Result Comment: Fanta mated GFR was calculated using the 2020 CKD-EPI creatinine equation. Performed By: #### 4 5336 #### LAB [address] [place], [place] [address] Les Malone M.D. [id number] VANCOMYCIN LEVEL, RANDOMon 1 VANCOMYCIN RANDOM 22.0 mcg/mL Normal [facility] Comment on above: Order Comment: As of 02/2022 vancomycin dosing for [facility] inpatients will be done by Bayesian dosing software rather than off traditional trough values. Please contact the site specific inpatient pharmacy before making dose changes off of trough values alone for admitted patients.No established reference range. Performed By: #### 4 6651 #### LAB [address] [place], [place] [address] Les Malone M.D. [id number] CREATININE, SERUMon 02-13-20 24 Creatinine [Mass/Vol] 0.57 mg/dL Normal 0.50-1.30 [facility] Comment on above: Order Comment: Daily for first 7 days of vancomycin therapy for monitoring purposes per [facility] has implemented the eGFR calculation approach that does not have a coefficient for race that conforms to the NKF-ASN Task Force Recommendations. Performed By: #### 4 5336 #### LAB [address] [place], [place] [address] Les Malone M.D. [id number] EGFR 123 mL/min/1.73 m2 Normal >=60 [facility] Comment on above: Order Comment: Daily for first 7 days of vancomycin therapy for monitoring purposes per [facility] has implemented the eGFR calculation approach that does not have a coefficient for race that conforms to the NKF-ASN Task Force Recommendations. Result Comment: Fanta mated GFR was calculated using the 2020 CKD-EPI creatinine equation. Performed By: #### 4 [id number] #### LAB [address] [place], [place] [address] Les Malone M.D. [id number] CSF AEROBIC AND ANAEROBIC CU LTURE (SHUNT OR DRAIN ONLY)on 02-13-2024 CSF AEROBIC AND ANAEROBIC CULTURE (SHUNT OR DRAIN ONLY) CULTURE No Growth after 5 days GRAM STAIN RESULT WBC WBCs present Many RBC No Organisms Seen Normal [facility] Comment on above: Performed By: #### 4 4215 ####[facility] [address] [place] [address] [address] Toro [address] [id number] CT HEAD OR BRAIN WITHOUT CON TRASTon 02-13-2024 CT HEAD OR BRAIN WITHOUT CONTRAST Normal [facility] Comment on above: Order Comment: Injur y/Trauma or Illness?:Illness/OtherHow long have you had these symptoms (acute/chronic)?:AcuteReason for exam?:eval hydrocephalus for possible drain removalType of Exam?:Subsequent/Follow-upAdditional signs and symptoms?:. SULPHATE TESTER AEROBIC AND A NAEROBIC CULTUREon 02-13-2024 SULPHATE TESTER AEROBIC AND ANAEROBIC CULTURE Abnormal [facility] Comment on above: Order Comment: Exter nal Ventricular Drain (EVD) Tip. Performed By: #### L [id number] ####[facility] [address] [place] [address] Yonny Toro M.D. [id number] CREATININE, SERUMon 02-12-20 Creatinine [Mass/Vol] 0.58 mg/dL Normal 0.50-1.30 [facility] Comment on above: Order Comment: Daily for first 7 days of vancomycin therapy for monitoring purposes per [facility] has implemented the eGFR calculation approach that does not have a coefficient for race that conforms to the NKF-ASN Task Force Recommendations. Performed By: #### 4 [id number] #### LAB [address] [address] Les Malone M.D. [id number] EGFR 123 mL/min/1.73 m2 Normal >=60 [facility] Comment on above: Order Comment: Daily for first 7 days of vancomycin therapy for monitoring purposes per [facility] has implemented the eGFR calculation approach that does not have a coefficient for race that conforms to the NKF-ASN Task Force Recommendations. Result Comment: Fanta mated GFR was calculated using the 2020 CKD-EPI creatinine equation. Performed By: #### 4 [id number] #### LAB [address] [address] Les Malone M.D. [id number] VANCOMYCIN LEVEL, RANDOMon 1 VANCOMYCIN RANDOM 38.2 mcg/mL Normal [facility] Comment on above: Order Comment: Draw prior to hanging vancomycin dose.As of 02/2022 vancomycin dosing for [facility] inpatients will be done by Bayesian dosing software rather than off traditional trough values. Please contact the site specific inpatient pharmacy before making dose changes off of trough values alone for admitted patients.No established reference range. Performed By: #### 4 6651 #### LAB [address] [place], [place] [address] Les Malone M.D. [id number] CBCon 02-11-2024 AUTO NRBC 0.0 % [facility] Comment on above: Performed By: #### 4 [id number] #### LAB [address] [address] Les Malone M.D. [id number] AUTO NRBC ABS COUNT 0.00 K/mcL Normal 0.00-0.00 [facility] Comment on above: Performed By: #### 4 [id number] #### LAB [address] [address] Les Malone M.D. [id number] Erythrocyte distribution width (RBC) [Ratio] 16.6 % High 11.6-14.8 [facility] Comment on above: Performed By: #### 4 [id number] #### LAB [address] [address] Les Malone M.D. [id number] Hematocrit (Bld) [Volume fraction] 26.1 % Low 41.0-53.0 [facility] Comment on above: Performed By: #### 4 [id number] #### LAB [address] [address] Les Malone M.D. [id number] Hemoglobin (Bld) [Mass/Vol] 8.1 g/dL Low 13.5-17.5 [facility] Comment on above: Performed By: #### 4 [id number] #### LAB [address] [address] Les Malone M.D. [id number] MCH (RBC) [Entitic mass] 29.1 pg Normal 26.0-34.0 [facility] Comment on above: Performed By: #### 4 [id number] #### LAB [address] [address] Les Malone M.D. [id number] MCV (RBC) [Entitic vol] 93.9 fL Normal 80.0-100.0 [facility] Comment on above: Performed By: #### 4 [id number] #### LAB [address] [address] Les Malone M.D. [id number] MEAN CORPUSCULAR HEMOGLOBIN CONC 31.0 g/dL Normal 31.0-37.0 [facility] Comment on above: Performed By: #### 4 [id number] #### LAB [address] [address] Les Malone M.D. [id number] Platelet mean volume (Bld) [Entitic vol] 9.8 fL Normal 9.4-12.4 [facility] Comment on above: Performed By: #### 4 [id number] #### LAB [address] [address] Les Malone M.D. [id number] Platelets (Bld) [#/Vol] 287 10*3/uL Normal 150-400 [facility] Comment on above: Performed By: #### 4 [id number] ####[facility] [address] [address] Les Malone M.D. [id number] RBC (Bld) [#/Vol] 2.78 10*6/uL Low 4.50-5.90 [facility] Comment on above: Performed By: #### 4 [id number] #### LAB [address] [id number] Les Malone M.D. [id number] WBC (Bld) [#/Vol] 11.07 10*3/uL High 4.50-11.00 [facility] [place] Comment on above: Performed By: #### 4 [id number] #### LAB [address] [id number] Les Malone M.D. [id number] CREATININE, SERUMon 02-11-20 24 Creatinine [Mass/Vol] 0.77 mg/dL Normal 0.50-1.30 [facility] Comment on above: Order Comment: Daily for first 7 days of vancomycin therapy for monitoring purposes per [facility] has implemented the eGFR calculation approach that does not have a coefficient for race that conforms to the NKF-ASN Task Force Recommendations. Performed By: #### 4 5336 #### LAB [address] [address] Les Malone M.D. [id number] EGFR 113 mL/min/1.73 m2 Normal >=60 [facility] Comment on above: Order Comment: Daily for first 7 days of vancomycin therapy for monitoring purposes per [facility] has implemented the eGFR calculation approach that does not have a coefficient for race that conforms to the NKF-ASN Task Force Recommendations. Result Comment: Fanta mated GFR was calculated using the 2020 CKD-EPI creatinine equation. Performed By: #### 4 5336 #### LAB [address] [place], [place] [address] Les Malone M.D. [id number] BASIC METABOLIC PANELon 10-0 -2023 Anion gap [Moles/Vol] 14 mmol/L Normal 10-20 [facility] Comment on above: Order Comment: [facility] has implemented the eGFR calculation approach that does not have a coefficient for race that conforms to the NKF-ASN Task Force Recommendations. Performed By: #### 4 6124 #### LAB [address] [address] Les Malone M.D. [id number] Calcium [Mass/Vol] 8.5 mg/dL Normal 8.4-10.2 [facility] Comment on above: Order Comment: [facility] has implemented the eGFR calculation approach that does not have a coefficient for race that conforms to the NKF-ASN Task Force Recommendations. Performed By: #### 4 6124 #### LAB [address] [address] Les Malone M.D. [id number] Chloride [Moles/Vol] 101 mmol/L Normal 98-108 [facility] [place] Comment on above: Order Comment: [facility] has implemented the eGFR calculation approach that does not have a coefficient for race that conforms to the NKF-ASN Task Force Recommendations. Performed By: #### 4 6124 #### LAB [address] [address] Les Malone M.D. [id number] Creatinine [Mass/Vol] 0.66 mg/dL Normal 0.50-1.30 [facility] Comment on above: Order Comment: [facility] has implemented the eGFR calculation approach that does not have a coefficient for race that conforms to the NKF-ASN Task Force Recommendations. Performed By: #### 4 6164 #### LAB [address] [address] Les Malone M.D. [id number] EGFR 118 mL/min/1.73 m2 Normal >=60 [facility] Comment on above: Order Comment: [facility] has implemented the eGFR calculation approach that does not have a coefficient for race that conforms to the NKF-ASN Task Force Recommendations. Result Comment: Fanta mated GFR was calculated using the 2020 CKD-EPI creatinine equation. Performed By: #### 4 6124 #### LAB [address] [address] Les Malone M.D. [id number] Glucose [Mass/Vol] 120 mg/dL High 65-99 [facility] Comment on above: Order Comment: [facility] has implemented the eGFR calculation approach that does not have a coefficient for race that conforms to the NKF-ASN Task Force Recommendations. Performed By: #### 4 6124 #### LAB [address] [address] Les Malone M.D. [id number] HCO3 (Bld) [Moles/Vol] 27 mmol/L Normal 21-32 [facility] Comment on above: Order Comment: [facility] has implemented the eGFR calculation approach that does not have a coefficient for race that conforms to the NKF-ASN Task Force Recommendations. Performed By: #### 4 6124 #### LAB [address] [address] Les Malone M.D. [id number] Potassium [Moles/Vol] 4.4 mmol/L Normal 3.5-5.1 [facility] Comment on above: Order Comment: [facility] has implemented the eGFR calculation approach that does not have a coefficient for race that conforms to the NKF-ASN Task Force Recommendations. Performed By: #### 4 6124 ####[facility] [address] [address] Les Malone M.D. [id number] Sodium [Moles/Vol] 138 mmol/L Normal 135-145 [facility] Comment on above: Order Comment: [facility] has implemented the eGFR calculation approach that does not have a coefficient for race that conforms to the NKF-ASN Task Force Recommendations. Performed By: #### 4 6124 #### LAB [address] [place], [place] [address] Les Malone M.D. [id number] Urea nitrogen [Mass/Vol] 20 mg/dL Normal 8-25 [facility] Comment on above: Order Comment: [facility] has implemented the eGFR calculation approach that does not have a coefficient for race that conforms to the NKF-ASN Task Force Recommendations. Performed By: #### 4 6124 #### LAB [address] [place], [place] [address] Les Malone M.D. [id number] Urea nitrogen/Creatinine [Mass ratio] 30.3 mg/mg High 10.0-20.0 [facility] Comment on above: Order Comment: [facility] has implemented the eGFR calculation approach that does not have a coefficient for race that conforms to the NKF-ASN Task Force Recommendations. Performed By: #### 4 6124 #### LAB [address] [place], [place] [address] Les Malone M.D. [id number] BODY FLUID AEROBIC AND ANAER OBIC CULTUREon 02-10-2024 BODY FLUID AEROBIC AND ANAEROBIC CULTURE CULTURE No Growth after 5 days GRAM STAIN RESULT Many RBC Rare WBC No Organisms Seen Normal [facility] Comment on above: Order Comment: BELLE rodgers of head (frontal). Performed By: #### 4 4197 ####[facility] [address] [place] [address] Yonny Toro M.D. [id number] BODY FLUID FUNGUS CULTUREon 02-10-2024 BODY FLUID FUNGUS CULTURE FUNGUS CULTURE No Fungus Isolated At 4 Weeks FUNGAL SMEAR No Fungal or Yeast Elements Normal [facility] Comment on above: Order Comment: BELLE rodgers of head (frontal). Performed By: #### 4 4198 ####[facility] [address] [place] [address] Yonny Toro M.D. [id number] CBCon 02-10-2024 AUTO NRBC 0.0 % Normal [facility] Comment on above: Performed By: #### 4 [id number] #### LAB [address] [address] Les Malone M.D. [id number] AUTO NRBC ABS COUNT 0.00 K/mcL Normal 0.00-0.00 [facility] Comment on above: Performed By: #### 4 [id number] #### LAB [address] [address] Les Malone M.D. [id number] Erythrocyte distribution width (RBC) [Ratio] 16.3 % High 11.6-14.8 [facility] Comment on above: Performed By: #### 4 [id number] #### LAB [address] [address] Les Malone M.D. [id number] Hematocrit (Bld) [Volume fraction] 27.6 % Low 41.0-53.0 [facility] Comment on above: Performed By: #### 4 [id number] ####[facility] [address] [address] Les Malone M.D. [id number] Hemoglobin (Bld) [Mass/Vol] 8.6 g/dL Low 13.5-17.5 [facility] Comment on above: Performed By: #### 4 [id number] #### LAB [address] [address] Les Malone M.D. [id number] MCH (RBC) [Entitic mass] 27.9 pg Normal 26.0-34.0 [facility] Comment on above: Performed By: #### 4 [id number] #### LAB [address] [address] eLs Malone M.D. [id number] MCV (RBC) [Entitic vol] 89.6 fL Normal 80.0-100.0 [facility] Comment on above: Performed By: #### 4 [id number] #### LAB [address] [address] Les Malone M.D. [id number] MEAN CORPUSCULAR HEMOGLOBIN CONC 31.2 g/dL Normal 31.0-37.0 [facility] Comment on above: Performed By: #### 4 [id number] #### LAB [address] [address] Les Malone M.D. [id number] Platelet mean volume (Bld) [Entitic vol] 9.7 fL Normal 9.4-12.4 [facility] Comment on above: Performed By: #### 4 5218 ####[facility] [address] [address] Les Malone M.D. [id number] Platelets (Bld) [#/Vol] 297 10*3/uL Normal 150-400 [facility] Comment on above: Performed By: #### 4 [id number] #### LAB [address] [address] Les Malone M.D. [id number] RBC (Bld) [#/Vol] 3.08 10*6/uL Low 4.50-5.90 [facility] Comment on above: Performed By: #### 4 [id number] #### LAB [address] [address] Les Malone M.D. [id number] WBC (Bld) [#/Vol] 10.77 10*3/uL Normal 4.50-11.00 [facility] Comment on above: Performed By: #### 4 [id number] #### LAB [address] [address] Les Malone M.D. [id number] CONSULTon 02-10-2024 CONSULT Normal [facility] CRP, INFLAMMATIONon 02-10-20 24 CRP [Mass/Vol] 4.9 mg/L Normal 0.0-10.0 [facility] Comment on above: Performed By: #### 4 5334 #### LAB [address] [address] Les Malone M.D. [id number] CSF AEROBIC AND ANAEROBIC CU LTURE (SHUNT OR DRAIN ONLY)on 02-10-2024 CSF AEROBIC AND ANAEROBIC CULTURE (SHUNT OR DRAIN ONLY) CULTURE No Growth after 5 days GRAM STAIN RESULT Few WBC Many RBC No Organisms Seen Normal [facility] Comment on above: Order Comment: EVD Performed By: #### 4 4215 ####[facility] [address] [place] [address] Yonny Toro M.D. [id number] CSF FUNGUS CULTUREon 024 CSF FUNGUS CULTURE FUNGUS CULTURE No Fungus Isolated At 4 Weeks FUNGAL SMEAR No Fungal or Yeast Elements Normal [facility] Comment on above: Order Comment: EVD Performed By: #### 4 4216 ####[facility] [address] [place] [address] [address] [id number] CT HEAD OR BRAIN WITHOUT CON TRASTon 02-10-2024 CT HEAD OR BRAIN WITHOUT CONTRAST Normal [facility] Comment on above: Order Comment: Injur y/Trauma or Illness?:Illness/OtherHow long have you had these symptoms (acute/chronic)?:AcuteReason for exam?:post-opType of Exam?:Subsequent/Follow-upAdditional signs and symptoms?:n SEDIMENTATION RATEon 024 SEDIMENTATION RATE, ERYTHROCYTE 10 mm/hr Normal 0-15 [facility] Comment on above: Performed By: #### 4 6477 #### LAB [address] [address] Les Malone M.D. [id number] CBCon 02-09-2024 AUTO NRBC 0.0 % Normal [facility] Comment on above: Performed By: #### 4 [id number] #### LAB [address] [address] Les Malone M.D. [id number] AUTO NRBC ABS COUNT 0.00 K/mcL Normal 0.00-0.00 [facility] Comment on above: Performed By: #### 4 [id number] #### LAB [address] [address] Les Malone M.D. [id number] Erythrocyte distribution width (RBC) [Ratio] 16.4 % High 11.6-14.8 [facility] Comment on above: Performed By: #### 4 [id number] #### LAB [address] [address] Les Malone M.D. [id number] Hematocrit (Bld) [Volume fraction] 28.7 % Low 41.0-53.0 [facility] Comment on above: Performed By: #### 4 [id number] #### LAB [address] [address] Les Malone M.D. [id number] Hemoglobin (Bld) [Mass/Vol] 8.9 g/dL Low 13.5-17.5 [facility] Comment on above: Performed By: #### 4 [id number] #### LAB [address] [address] Les Malone M.D. [id number] MCH (RBC) [Entitic mass] 27.9 pg Normal 26.0-34.0 [facility] Comment on above: Performed By: #### 4 [id number] #### LAB [address] [address] Les Malone M.D. [id number] MCV (RBC) [Entitic vol] 90.0 fL Normal 80.0-100.0 [facility] Comment on above: Performed By: #### 4 [id number] #### LAB [address] [address] Les Malone M.D. [id number] MEAN CORPUSCULAR HEMOGLOBIN CONC 31.0 g/dL Normal 31.0-37.0 [facility] Comment on above: Performed By: #### 4 [id number] #### LAB [address] [address] Les Malone M.D. [id number] Platelet mean volume (Bld) [Entitic vol] 9.8 fL Normal 9.4-12.4 [facility] Comment on above: Performed By: #### 4 [id number] #### LAB [address] [address] Les Malone M.D. [id number] Platelets (Bld) [#/Vol] 276 10*3/uL Normal 150-400 [facility] Comment on above: Performed By: #### 4 [id number] #### LAB [address] [address] Les Malone M.D. [id number] RBC (Bld) [#/Vol] 3.19 10*6/uL Low 4.50-5.90 [facility] Comment on above: Performed By: #### 4 [id number] #### LAB [address] [address] Les Malone M.D. [id number] WBC (Bld) [#/Vol] 8.18 10*3/uL Normal 4.50-11.00 [facility] Comment on above: Performed By: #### 4 [id number] #### LAB [address] [address] Les Malone M.D. [id number] COMPREHENSIVE METABOLIC PANE [facility] 02-09-2024 Albumin [Mass/Vol] 3.1 g/dL Low 3.2-5.2 [facility] Comment on above: Order Comment: [facility] has implemented the eGFR calculation approach that does not have a coefficient for race that conforms to the NKF-ASN Task Force Recommendations. Performed By: #### 4 6126 #### LAB [address] [address] Les Malone M.D. [id number] ALP [Catalytic activity/Vol] 91 U/L Normal 40-150 [facility] Comment on above: Order Comment: [facility] has implemented the eGFR calculation approach that does not have a coefficient for race that conforms to the NKF-ASN Task Force Recommendations. Performed By: #### 4 6126 #### LAB [address] [address] Les Malone M.D. [id number] ALT [Catalytic activity/Vol] 13 U/L Normal 0-50 U/L [facility] Comment on above: Order Comment: [facility] has implemented the eGFR calculation approach that does not have a coefficient for race that conforms to the NKF-ASN Task Force Recommendations. Performed By: #### 4 6126 #### LAB [address] [address] Les Malone M.D. [id number] Anion gap [Moles/Vol] 13 mmol/L Normal 10-20 [facility] Comment on above: Order Comment: [facility] has implemented the eGFR calculation approach that does not have a coefficient for race that conforms to the NKF-ASN Task Force Recommendations. Performed By: #### 4 6126 #### LAB [address] [address] Les Malone M.D. [id number] AST [Catalytic activity/Vol] 19 U/L Normal 0-50 U/L [facility] Comment on above: Order Comment: [facility] has implemented the eGFR calculation approach that does not have a coefficient for race that conforms to the NKF-ASN Task Force Recommendations. Performed By: #### 4 6126 #### LAB [address] [address] Les Malone M.D. [id number] Bilirubin [Mass/Vol] 0.3 mg/dL Normal 0.0-1.3 [facility] Comment on above: Order Comment: [facility] has implemented the eGFR calculation approach that does not have a coefficient for race that conforms to the NKF-ASN Task Force Recommendations. Performed By: #### 4 6126 #### LAB [address] [address] Les Malone M.D. [id number] Calcium [Mass/Vol] 8.8 mg/dL Normal 8.4-10.2 [facility] Comment on above: Order Comment: [facility] has implemented the eGFR calculation approach that does not have a coefficient for race that conforms to the NKF-ASN Task Force Recommendations. Performed By: #### 4 6126 #### LAB [address] [address] Les Malone M.D. [id number] Chloride [Moles/Vol] 102 mmol/L Normal 98-108 [facility] Comment on above: Order Comment: [facility] has implemented the eGFR calculation approach that does not have a coefficient for race that conforms to the NKF-ASN Task Force Recommendations. Performed By: #### 4 6126 #### LAB [address] [place], [place] [address] Les Malone M.D. [id number] Creatinine [Mass/Vol] 0.60 mg/dL Normal 0.50-1.30 [facility] Comment on above: Order Comment: [facility] has implemented the eGFR calculation approach that does not have a coefficient for race that conforms to the NKF-ASN Task Force Recommendations. Performed By: #### 4 6126 #### LAB [address] [place], [place] [address] Les Malone M.D. [id number] EGFR 121 mL/min/1.73 m2 Normal >=60 [facility] Comment on above: Order Comment: [facility] has implemented the eGFR calculation approach that does not have a coefficient for race that conforms to the NKF-ASN Task Force Recommendations. Result Comment: Fanta mated GFR was calculated using the 2020 CKD-EPI creatinine equation. Performed By: #### 4 6126 #### LAB [address] [place], [place] [address] Les Malone M.D. [id number] Glucose [Mass/Vol] 96 mg/dL Normal 65-99 [facility] Comment on above: Order Comment: [facility] has implemented the eGFR calculation approach that does not have a coefficient for race that conforms to the NKF-ASN Task Force Recommendations. Performed By: #### 4 6126 #### LAB [address] [place] [id number] Les Malone M.D. [id number] HCO3 (Bld) [Moles/Vol] 27 mmol/L Normal 21-32 [facility] Comment on above: Order Comment: [facility] has implemented the eGFR calculation approach that does not have a coefficient for race that conforms to the NKF-ASN Task Force Recommendations. Performed By: #### 4 6126 #### LAB [address] [place] [id number] Les Malone M.D. [id number] Potassium [Moles/Vol] 3.9 mmol/L Normal 3.5-5.1 [facility] Comment on above: Order Comment: [facility] has implemented the eGFR calculation approach that does not have a coefficient for race that conforms to the NKF-ASN Task Force Recommendations. Performed By: #### 4 6126 #### LAB [address] [place] [address] Les Malone M.D. [id number] Protein [Mass/Vol] 5.4 g/dL Low 6.0-8.0 [facility] Comment on above: Order Comment: [facility] has implemented the eGFR calculation approach that does not have a coefficient for race that conforms to the NKF-ASN Task Force Recommendations. Performed By: #### 4 6126 #### LAB [address] [place] [address] Les Malone M.D. [id number] Sodium [Moles/Vol] 138 mmol/L Normal 135-145 [facility] Comment on above: Order Comment: [facility] has implemented the eGFR calculation approach that does not have a coefficient for race that conforms to the NKF-ASN Task Force Recommendations. Performed By: #### 4 6126 #### LAB [address] [place] [address] Les Malone M.D. [id number] Urea nitrogen [Mass/Vol] 16 mg/dL Normal 8-25 [facility] Comment on above: Order Comment: [facility] has implemented the eGFR calculation approach that does not have a coefficient for race that conforms to the NKF-ASN Task Force Recommendations. Performed By: #### 4 6126 ####[facility] LAB [address] [place] [address] Les Malone M.D. [id number] Urea nitrogen/Creatinine [Mass ratio] 26.7 mg/mg High 10.0-20.0 [facility] Comment on above: Order Comment: [facility] has implemented the eGFR calculation approach that does not have a coefficient for race that conforms to the NKF-ASN Task Force Recommendations. Performed By: #### 4 6126 #### LAB [address] [place] [address] Les Malone M.D. [id number] HEMOGLOBIN AND HEMATOCRITon 02-09-2024 Hematocrit (Bld) [Volume fraction] 28.8 % Low 41.0-53.0 [facility] Comment on above: Performed By: #### 4 6909 ####[facility] LAB [address] [place] [address] Les Malone M.D. [id number] Hemoglobin (Bld) [Mass/Vol] 8.9 g/dL Low 13.5-17.5 [facility] Comment on above: Performed By: #### 4 6909 #### LAB [address] [place] [address] Les Malone M.D. [id number] MAGNESIUM LEVELon 02-09-2024 Magnesium [Mass/Vol] 1.8 mg/dL Normal 1.6-2.4 [facility] Comment on above: Performed By: #### 4 6109 ####[facility] LAB [address] [place] [address] Les Malone M.D. [id number] OP NOTEon 02-09-2024 OP NOTE Normal [facility] PHOSPHORUSon 02-09-2024 Phosphate [Mass/Vol] 4.4 mg/dL Normal 2.7-4.5 [facility] [place] Comment on above: Performed By: #### 4 6299 ####[facility] LAB [address] [place] [address] Les Malone M.D. [id number] POC ABG SURG - RALSon 2023 BASE EXCESS, ARTERIAL ISTAT 4 High -2-2 [facility] Comment on above: Performed By: #### 4 8737 ####[facility] LAB [address] [place] [address] Les Malone M.D. [id number] Glucose [Mass/Vol] 123 mg/dL High 65-99 [facility] Comment on above: Performed By: #### 4 8737 ####[facility] LAB [address] [place] [address] Les Malone M.D. [id number] HCO3 (Bld) [Moles/Vol] 28.8 mmol/L High 22.0-26.0 [facility] Comment on above: Performed By: #### 4 8737 ####[facility] LAB [address] [place] [address] Les Malone M.D. [id number] Hematocrit (Bld) [Volume fraction] 31 % Low 41-53 [facility] Comment on above: Performed By: #### 4 8737 ####[facility] LAB [address] [place] [address] Les Malone M.D. [id number] Hemoglobin (Bld) [Mass/Vol] 10.5 g/dL Low 13.5-17.5 [facility] Comment on above: Performed By: #### 4 8737 ####[facility] LAB [address] [place] [address] Les Malone M.D. [id number] Oxygen saturation in Blood 100.0 % High 92.0-99.0 [facility] Comment on above: Performed By: #### 4 8737 ####[facility] LAB [address] [place] [address] Les Malone M.D. [id number] PCO2 ARTERIAL 43.9 mm Hg Normal 35.0-45.0 [facility] Comment on above: Performed By: #### 4 8737 ####[facility] [address] [place] [address] Les Malone M.D. [id number] PH ARTERIAL 7.43 Normal 7.35-7.45 [facility] Comment on above: Performed By: #### 4 8737 ####[facility] LAB [address] [place] [address] Les Malone M.D. [id number] PO2 ARTERIAL 220 mm Hg High 80-100 [facility] Comment on above: Performed By: #### 4 8737 ####[facility] LAB [address] [place] [address] Les Malone M.D. [id number] POC IONIZED CALCIUM 4.7 mg/dL Normal 4.5-5.3 [facility] Comment on above: Performed By: #### 4 8737 ####[facility] LAB [address] [place] [address] Les Malone M.D. [id number] Potassium [Moles/Vol] 4.4 mmol/L Normal 3.5-5.1 [facility] Comment on above: Performed By: #### 4 8737 ####[facility] [address] [place] [address] Les Malone M.D. [id number] Sodium [Moles/Vol] 138 mmol/L Normal 135-145 [facility] Comment on above: Performed By: #### 4 8737 ####[facility] [address] [place] [address] Les Malone M.D. [id number] BASE EXCESS, ARTERIAL ISTAT 4 High -2-2 [facility] Comment on above: Performed By: #### 4 8737 ####[facility] LAB [address] [place] [address] Les Malone M.D. [id number] Glucose [Mass/Vol] 108 mg/dL High 65-99 [facility] Comment on above: Performed By: #### 4 8737 ####[facility] LAB [address] [place] [address] Les Malone M.D. [id number] HCO3 (Bld) [Moles/Vol] 28.0 mmol/L High 22.0-26.0 [facility] Comment on above: Performed By: #### 4 8737 ####[facility] LAB [address] [place] [address] Les Malone M.D. [id number] Hematocrit (Bld) [Volume fraction] 30 % Low 41-53 [facility] Comment on above: Performed By: #### 4 8737 #### LAB [address] [place] [address] Les Malone M.D. [id number] Hemoglobin (Bld) [Mass/Vol] 10.2 g/dL Low 13.5-17.5 [facility] Comment on above: Performed By: #### 4 8737 ####[facility] LAB [address] [place] [address] Les Malone M.D. [id number] Oxygen saturation in Blood 100.0 % High 92.0-99.0 [facility] Comment on above: Performed By: #### 4 8737 #### LAB [address] [place] [address] Les Malone M.D. [id number] PCO2 ARTERIAL 37.4 mm Hg Normal 35.0-45.0 [facility] Comment on above: Performed By: #### 4 8737 #### LAB [address] [place] [address] Les Malone M.D. [id number] PH ARTERIAL 7.48 High 7.35-7.45 [facility] Comment on above: Performed By: #### 4 8737 ####[facility] [address] [place] [address] Les Malone M.D. [id number] PO2 ARTERIAL 180 mm Hg High 80-100 [facility] Comment on above: Performed By: #### 4 8737 #### LAB [address] [place] [address] Les Malone M.D. [id number] POC IONIZED CALCIUM 4.7 mg/dL Normal 4.5-5.3 [facility] Comment on above: Performed By: #### 4 8737 ####[facility] LAB [address] [place] [address] Les Malone M.D. [id number] Potassium [Moles/Vol] 4.1 mmol/L Normal 3.5-5.1 [facility] Comment on above: Performed By: #### 4 8737 ####[facility] LAB [address] [place] [id number] Les Malone M.D. [id number] Sodium [Moles/Vol] 138 mmol/L Normal 135-145 [facility] Comment on above: Performed By: #### 4 8737 #### LAB [address] [place] [address] Les Malone M.D. [id number] SURGICAL SITE AEROBIC AND AN AEROBIC CULTUREon 02-09-2024 SURGICAL SITE AEROBIC AND ANAEROBIC CULTURE Abnormal [facility] Comment on above: Performed By: #### L [id number] ####[facility] [address] [place] [address] Yonny Toro M.D. [id number] TYPE AND SCREENon 02-09-2024 TYPE AND SCREEN ABORH: O Positive AB SCREEN: Negative EXPIRATION DATE: 02/12/2024 23:59 EST Normal [facility] MAGNESIUM LEVELon 02-08-2024 Magnesium [Mass/Vol] 4.0 mg/dL High 1.6-2.4 [facility] Comment on above: Performed By: #### 4 6109 #### LAB [address] [place] [address] Les Malone M.D. [id number] POC GLUCOSE - [facility] 024 Glucose [Mass/Vol] 109 mg/dL High 65-99 [facility] Comment on above: Performed By: #### 4 6932 #### LAB [address] [place] [id number] Les Malone M.D. [id number] CBC WITH AUTO DIFFERENTIALon 02-07-2024 AUTO NRBC 0.0 % [facility] Comment on above: Performed By: #### L [id number] ####[facility] LAB [address] [place] [id number] Les Malone M.D. [id number] AUTO NRBC ABS COUNT 0.00 K/mcL Normal 0.00-0.00 [facility] Comment on above: Performed By: #### L [id number] ####[facility] LAB [address] [place] [address] Les Malone M.D. [id number] BASOPHILS ABSOLUTE COUNT 0.04 K/mcL Normal 0.00-0.30 [facility] Comment on above: Performed By: #### L [id number] #### LAB [address] [place] [address] Les Malone M.D. [id number] Basophils/100 WBC (Bld) 0.5 % Normal [facility] Comment on above: Performed By: #### L [id number] #### LAB [address] [place] [address] Les Malone M.D. [id number] Eosinophils (Bld) [#/Vol] 0.47 10*3/uL Normal 0.00-0.50 [facility] Comment on above: Performed By: #### L [id number] #### LAB [address] [place] [address] Les Malone M.D. [id number] Eosinophils/100 WBC (Bld) 6.0 % Normal [facility] Comment on above: Performed By: #### L [id number] #### LAB [address] [place] [address] Les Malone M.D. [id number] Erythrocyte distribution width (RBC) [Ratio] 16.8 % High 11.6-14.8 [facility] Comment on above: Performed By: #### L [id number] #### LAB [address] [place] [address] Les Malone M.D. [id number] Hematocrit (Bld) [Volume fraction] 27.4 % Low 41.0-53.0 [facility] Comment on above: Performed By: #### L [id number] #### LAB [address] [place] [address] Les Malone M.D. [id number] Hemoglobin (Bld) [Mass/Vol] 8.5 g/dL Low 13.5-17.5 [facility] Comment on above: Performed By: #### L [id number] #### LAB [address] [place] [address] Les Malone M.D. [id number] IG ABSOLUTE 0.09 K/mcL Normal 0.00-0.30 [facility] Comment on above: Performed By: #### L [id number] #### LAB [address] [place] [address] Les Malone M.D. [id number] IG PERCENT 1.10 % Normal [facility] Comment on above: Result Comment: The IG parameter is the percentage of metamyelocytes, myelocytes and promyelocytes. An immature granulocyte count (IG) of 1% or more suggests the possibility of infection, an IG count of 3% is very likely related to an infection. Performed By: #### L [id number] #### LAB [address] [place] [address] Les Malone M.D. [id number] Lymphocytes (Bld) [#/Vol] 2.12 10*3/uL Normal 0.90-4.00 [facility] Comment on above: Performed By: #### L [id number] #### LAB [address] [place] [address] Les Malone M.D. [id number] Lymphocytes/100 WBC (Bld) 26.9 % Normal [facility] Comment on above: Performed By: #### L [id number] #### LAB [address] [place] [address] Les Malone M.D. [id number] MCH (RBC) [Entitic mass] 28.0 pg Normal 26.0-34.0 [facility] Comment on above: Performed By: #### L [id number] #### LAB [address] [place] [address] Les Malone M.D. [id number] MCV (RBC) [Entitic vol] 90.1 fL Normal 80.0-100.0 [facility] Comment on above: Performed By: #### L [id number] #### LAB [address] [place] [address] Les Malone M.D. [id number] MEAN CORPUSCULAR HEMOGLOBIN CONC 31.0 g/dL Normal 31.0-37.0 [facility] Comment on above: Performed By: #### L [id number] #### LAB [address] [place] [address] Les Malone M.D. [id number] Monocytes (Bld) [#/Vol] 0.54 10*3/uL Normal 0.30-0.90 [facility] Comment on above: Performed By: #### L [id number] #### LAB [address] [place] [address] Les Malone M.D. [id number] Monocytes/100 WBC (Bld) 6.9 % Normal [facility] Comment on above: Performed By: #### L [id number] #### LAB [address] [place] [address] Les Malone M.D. [id number] NEUTROPHILS ABSOLUTE COUNT 4.62 K/mcL Normal 1.70-7.00 [facility] Comment on above: Performed By: #### L [id number] #### LAB [address] [place] [address] Les Malone M.D. [id number] Neutrophils/100 WBC (Bld) 58.6 % Normal [facility] Comment on above: Performed By: #### L [id number] #### LAB [address] [place] [address] Les Malone M.D. [id number] Platelet mean volume (Bld) [Entitic vol] 10.0 fL Normal 9.4-12.4 [facility] Comment on above: Performed By: #### L [id number] #### LAB [address] [place] [address] Les Malone M.D. [id number] Platelets (Bld) [#/Vol] 264 10*3/uL Normal 150-400 [facility] Comment on above: Performed By: #### L [id number] #### LAB [address] [place] [address] Les Malone M.D. [id number] RBC (Bld) [#/Vol] 3.04 10*6/uL Low 4.50-5.90 [facility] Comment on above: Performed By: #### L [id number] ####[facility] [address] [place] [address] Les Malone M.D. [id number] WBC (Bld) [#/Vol] 7.88 10*3/uL Normal 4.50-11.00 [facility] Comment on above: Performed By: #### L [id number] ####[facility] [address] [place] [address] Les Malone M.D. [id number] CHEM 702-07-2024 Anion gap [Moles/Vol] 12 mmol/L Normal 10-20 [facility] Comment on above: Order Comment: [facility] has implemented the eGFR calculation approach that does not have a coefficient for race that conforms to the NKF-ASN Task Force Recommendations. Performed By: #### 4 6953 ####[facility] [address] [place] [address] Les Malone M.D. [id number] Chloride [Moles/Vol] 104 mmol/L Normal 98-108 [facility] Comment on above: Order Comment: [facility] has implemented the eGFR calculation approach that does not have a coefficient for race that conforms to the NKF-ASN Task Force Recommendations. Performed By: #### 4 6953 ####[facility] [address] [place] [address] Les Malone M.D. [id number] Creatinine [Mass/Vol] 0.56 mg/dL Normal 0.50-1.30 [facility] Comment on above: Order Comment: [facility] has implemented the eGFR calculation approach that does not have a coefficient for race that conforms to the NKF-ASN Task Force Recommendations. Performed By: #### 4 6953 ####[facility] [address] [place] [address] Les Malone M.D. [id number] EGFR 124 mL/min/1.73 m2 Normal >=60 [facility] Comment on above: Order Comment: [facility] has implemented the eGFR calculation approach that does not have a coefficient for race that conforms to the NKF-ASN Task Force Recommendations. Result Comment: Fanta mated GFR was calculated using the 2020 CKD-EPI creatinine equation. Performed By: #### 4 6953 #### LAB [address] [place] [address] Les Malone M.D. [id number] Glucose [Mass/Vol] 103 mg/dL High 65-99 [facility] Comment on above: Order Comment: [facility] has implemented the eGFR calculation approach that does not have a coefficient for race that conforms to the NKF-ASN Task Force Recommendations. Performed By: #### 4 6953 #### LAB [address] [place] [address] Les Malone M.D. [id number] HCO3 (Bld) [Moles/Vol] 27 mmol/L Normal 21-32 [facility] Comment on above: Order Comment: [facility] has implemented the eGFR calculation approach that does not have a coefficient for race that conforms to the NKF-ASN Task Force Recommendations. Performed By: #### 4 6953 #### LAB [address] [place], [place] [address] Les Malone M.D. [id number] Potassium [Moles/Vol] 4.2 mmol/L Normal 3.5-5.1 [facility] Comment on above: Order Comment: [facility] has implemented the eGFR calculation approach that does not have a coefficient for race that conforms to the NKF-ASN Task Force Recommendations. Performed By: #### 4 6953 #### LAB [address] [place] [address] Les Malone M.D. [id number] Sodium [Moles/Vol] 139 mmol/L Normal 135-145 [facility] Comment on above: Order Comment: [facility] has implemented the eGFR calculation approach that does not have a coefficient for race that conforms to the NKF-ASN Task Force Recommendations. Performed By: #### 4 6953 #### LAB [address] [place], [place] [address] Les Malone M.D. [id number] Urea nitrogen [Mass/Vol] 15 mg/dL Normal 8-25 [facility] Comment on above: Order Comment: [facility] has implemented the eGFR calculation approach that does not have a coefficient for race that conforms to the NKF-ASN Task Force Recommendations. Performed By: #### 4 6953 #### LAB [address] [place], [place] [address] Les Malone M.D. [id number] Urea nitrogen/Creatinine [Mass ratio] 26.8 mg/mg High 10.0-20.0 [facility] Comment on above: Order Comment: [facility] has implemented the eGFR calculation approach that does not have a coefficient for race that conforms to the NKF-ASN Task Force Recommendations. Performed By: #### 4 6953 #### LAB [address] [place], [place] [address] Les Malone M.D. [id number] MAGNESIUM LEVELon 02-07-2024 Magnesium [Mass/Vol] 1.9 mg/dL Normal 1.6-2.4 [facility] Comment on above: Performed By: #### 4 6109 #### LAB [address] [place], [place] [address] Les Malone M.D. [id number] Magnesium [Mass/Vol] 1.9 mg/dL Normal 1.6-2.4 [facility] Comment on above: Performed By: #### 4 6109 #### LAB [address] [place], [place] [address] Les Malone M.D. [id number] BASIC METABOLIC PANELon 10-0 Anion gap [Moles/Vol] 14 mmol/L Normal 10-20 [facility] Comment on above: Order Comment: [facility] has implemented the eGFR calculation approach that does not have a coefficient for race that conforms to the NKF-ASN Task Force Recommendations. Performed By: #### 4 6124 #### LAB [address] [place] [address] Les Malone M.D. [id number] Calcium [Mass/Vol] 8.9 mg/dL Normal 8.4-10.2 [facility] Comment on above: Order Comment: [facility] has implemented the eGFR calculation approach that does not have a coefficient for race that conforms to the NKF-ASN Task Force Recommendations. Performed By: #### 4 6124 #### LAB [address] [place] [address] Les Malone M.D. [id number] Chloride [Moles/Vol] 104 mmol/L Normal 98-108 [facility] Comment on above: Order Comment: [facility] has implemented the eGFR calculation approach that does not have a coefficient for race that conforms to the NKF-ASN Task Force Recommendations. Performed By: #### 4 6124 #### LAB [address] [place] [address] Les Malone M.D. [id number] Creatinine [Mass/Vol] 0.57 mg/dL Normal 0.50-1.30 [facility] Comment on above: Order Comment: [facility] has implemented the eGFR calculation approach that does not have a coefficient for race that conforms to the NKF-ASN Task Force Recommendations. Performed By: #### 4 6124 #### LAB [address] [place] [address] Les Malone M.D. [id number] EGFR 123 mL/min/1.73 m2 Normal >=60 [facility] Comment on above: Order Comment: [facility] has implemented the eGFR calculation approach that does not have a coefficient for race that conforms to the NKF-ASN Task Force Recommendations. Result Comment: Fanta mated GFR was calculated using the 2020 CKD-EPI creatinine equation. Performed By: #### 4 6124 #### LAB [address] [place] [address] Les Malone M.D. [id number] Glucose [Mass/Vol] 94 mg/dL Normal 65-99 [facility] Comment on above: Order Comment: [facility] has implemented the eGFR calculation approach that does not have a coefficient for race that conforms to the NKF-ASN Task Force Recommendations. Performed By: #### 4 6124 #### LAB [address] [place] [address] Les Malone M.D. [id number] HCO3 (Bld) [Moles/Vol] 25 mmol/L Normal 21-32 [facility] Comment on above: Order Comment: [facility] has implemented the eGFR calculation approach that does not have a coefficient for race that conforms to the NKF-ASN Task Force Recommendations. Performed By: #### 4 6124 #### LAB [address] [place] [address] Les Malone M.D. [id number] Potassium [Moles/Vol] 3.7 mmol/L Normal 3.5-5.1 [facility] Comment on above: Order Comment: [facility] has implemented the eGFR calculation approach that does not have a coefficient for race that conforms to the NKF-ASN Task Force Recommendations. Performed By: #### 4 6124 #### LAB [address] [address] Les Malone M.D. [id number] Sodium [Moles/Vol] 139 mmol/L Normal 135-145 [facility] Comment on above: Order Comment: [facility] has implemented the eGFR calculation approach that does not have a coefficient for race that conforms to the NKF-ASN Task Force Recommendations. Performed By: #### 4 6124 #### LAB [address] [address] Les Mlaone M.D. [id number] Urea nitrogen [Mass/Vol] 19 mg/dL Normal 8-25 [facility] Comment on above: Order Comment: [facility] has implemented the eGFR calculation approach that does not have a coefficient for race that conforms to the NKF-ASN Task Force Recommendations. Performed By: #### 4 6124 ####[facility] [address] [address] Les Malone M.D. [id number] Urea nitrogen/Creatinine [Mass ratio] 33.3 mg/mg High 10.0-20.0 [facility] Comment on above: Order Comment: [facility] has implemented the eGFR calculation approach that does not have a coefficient for race that conforms to the NKF-ASN Task Force Recommendations. Performed By: #### 4 6124 #### LAB [address] [address] Les Malone M.D. [id number] CBC WITH AUTO DIFFERENTIALon 02-06-2024 AUTO NRBC 0.0 % [facility] Comment on above: Performed By: #### L [id number] #### LAB [address] [address] Les Malone M.D. [id number] AUTO NRBC ABS COUNT 0.00 K/mcL Normal 0.00-0.00 [facility] Comment on above: Performed By: #### L [id number] #### LAB [address] [address] Les Malone M.D. [id number] BASOPHILS ABSOLUTE COUNT 0.02 K/mcL Normal 0.00-0.30 [facility] Comment on above: Performed By: #### L [id number] #### LAB [address] [place] [address] Les Malone M.D. [id number] Basophils/100 WBC (Bld) 0.2 % [facility] Comment on above: Performed By: #### L [id number] #### LAB [address] [address] Les Malone M.D. [id number] Eosinophils (Bld) [#/Vol] 0.60 10*3/uL High 0.00-0.50 [facility] Comment on above: Performed By: #### L [id number] #### LAB [address] [place] [address] Les Malone M.D. [id number] Eosinophils/100 WBC (Bld) 7.1 % Normal [facility] Comment on above: Performed By: #### L [id number] #### LAB [address] [address] Les Malone M.D. [id number] Erythrocyte distribution width (RBC) [Ratio] 17.1 % High 11.6-14.8 [facility] Comment on above: Performed By: #### L [id number] #### LAB [address] [address] Les Malone M.D. [id number] Hematocrit (Bld) [Volume fraction] 28.7 % Low 41.0-53.0 [facility] Comment on above: Performed By: #### L [id number] #### LAB [address] [address] Les Malone M.D. [id number] Hemoglobin (Bld) [Mass/Vol] 8.8 g/dL Low 13.5-17.5 [facility] Comment on above: Performed By: #### L [id number] #### LAB [address] [address] Les Malone M.D. [id number] IG ABSOLUTE 0.09 K/mcL Normal 0.00-0.30 [facility] Comment on above: Performed By: #### L [id number] #### LAB [address] [address] Les Malone M.D. [id number] IG PERCENT 1.10 % Normal [facility] Comment on above: Result Comment: The IG parameter is the percentage of metamyelocytes, myelocytes and promyelocytes. An immature granulocyte count (IG) of 1% or more suggests the possibility of infection, an IG count of 3% is very likely related to an infection. Performed By: #### L [id number] #### LAB [address] [place] [address] Les Malone M.D. [id number] Lymphocytes (Bld) [#/Vol] 2.05 10*3/uL Normal 0.90-4.00 [facility] Comment on above: Performed By: #### L [id number] #### LAB [address] [address] Les Malone M.D. [id number] Lymphocytes/100 WBC (Bld) 24.1 % Normal [facility] Comment on above: Performed By: #### L [id number] ####[facility] LAB [address] [address] Les Malone M.D. [id number] MCH (RBC) [Entitic mass] 27.8 pg Normal 26.0-34.0 [facility] Comment on above: Performed By: #### L [id number] #### LAB [address] [address] Les Malone M.D. [id number] MCV (RBC) [Entitic vol] 90.5 fL Normal 80.0-100.0 [facility] Comment on above: Performed By: #### L [id number] #### LAB [address] [address] Les Malone M.D. [id number] MEAN CORPUSCULAR HEMOGLOBIN CONC 30.7 g/dL Low 31.0-37.0 [facility] Comment on above: Performed By: #### L [id number] #### LAB [address] [address] Les Malone M.D. [id number] Monocytes (Bld) [#/Vol] 0.65 10*3/uL Normal 0.30-0.90 [facility] Comment on above: Performed By: #### L [id number] ####[facility] LAB [address] [address] Les Malone M.D. [id number] Monocytes/100 WBC (Bld) 7.6 % Normal [facility] Comment on above: Performed By: #### L [id number] #### LAB [address] [place] [address] Les Malone M.D. [id number] NEUTROPHILS ABSOLUTE COUNT 5.09 K/mcL Normal 1.70-7.00 [facility] Comment on above: Performed By: #### L [id number] #### LAB [address] [address] Les Malone M.D. [id number] Neutrophils/100 WBC (Bld) 59.9 % Normal [facility] Comment on above: Performed By: #### L [id number] ####[facility] LAB [address] [address] Les Malone M.D. [id number] Platelet mean volume (Bld) [Entitic vol] 10.2 fL Normal 9.4-12.4 [facility] Comment on above: Performed By: #### L [id number] ####[facility] LAB [address] [address] Les Malone M.D. [id number] Platelets (Bld) [#/Vol] 271 10*3/uL Normal 150-400 [facility] Comment on above: Performed By: #### L [id number] ####[facility] LAB [address] [address] Les Malone M.D. [id number] RBC (Bld) [#/Vol] 3.17 10*6/uL Low 4.50-5.90 [facility] Comment on above: Performed By: #### L [id number] ####[facility] LAB [address] [address] Les Malone M.D. [id number] WBC (Bld) [#/Vol] 8.50 10*3/uL Normal 4.50-11.00 [facility] Comment on above: Performed By: #### L [id number] ####[facility] LAB [address] [address] Les Malone M.D. [id number] CSF AEROBIC AND ANAEROBIC CU LTURE (SHUNT OR DRAIN ONLY)on 02-06-2024 CSF AEROBIC AND ANAEROBIC CULTURE (SHUNT OR DRAIN ONLY) Abnormal [facility] Comment on above: Performed By: #### 4 4215 ####[facility] LAB [address] [address] Les Malone M.D. [id number] [address] [place] [address] [address] Toro [address] [id number] CT HEAD OR BRAIN WITHOUT CON TRASTon 02-06-2024 CT HEAD OR BRAIN WITHOUT CONTRAST Normal [facility] Comment on above: Order Comment: Injur y/Trauma or Illness?:Illness/OtherHow long have you had these symptoms (acute/chronic)?:AcuteReason for exam?:f/u lt side head swellingType of Exam?:Subsequent/Follow-upAdditional signs and symptoms?:. FUNGUS CULTURE, NOT BLOODon 02-06-2024 FUNGUS CULTURE, NOT BLOOD FUNGUS CULTURE No Fungus Isolated At 4 Weeks FUNGAL SMEAR No Fungal or Yeast Elements Normal [facility] Comment on above: Performed By: #### 4 4030 ####[facility] [address] [place] [address] Yonny Toro M.D. [id number] MAGNESIUM LEVELon 02-06-2024 Magnesium [Mass/Vol] 1.8 mg/dL Normal 1.6-2.4 [facility] Comment on above: Performed By: #### 4 6109 ####[facility] LAB [address] [address] Les Maloen M.D. [id number] POTASSIUM LEVELon 02-06-2024 Potassium [Moles/Vol] 4.0 mmol/L Normal 3.5-5.1 [facility] Comment on above: Performed By: #### 4 6351 ####[facility] LAB [address] [place], [place] [address] Les Malone M.D. [id number] WOUND AEROBIC AND ANAEROBIC CULTUREon 02-06-2024 WOUND AEROBIC AND ANAEROBIC CULTURE CULTURE No Anaerobic Growth after 5 days Few Growth Normal Skin Wally GRAM STAIN RESULT Many WBC No Organisms Seen Normal [facility] Comment on above: Performed By: #### 4 4287 ####[facility] [address] [place], [place] [address] Yonny Toro M.D. [id number] CBCon 02-05-2024 AUTO NRBC 0.0 % Normal [facility] Comment on above: Performed By: #### 4 [id number] #### LAB [address] [address] Les Malone M.D. [id number] AUTO NRBC ABS COUNT 0.00 K/mcL Normal 0.00-0.00 [facility] Comment on above: Performed By: #### 4 [id number] #### LAB [address] [address] Les Malone M.D. [id number] Erythrocyte distribution width (RBC) [Ratio] 17.1 % High 11.6-14.8 [facility] Comment on above: Performed By: #### 4 5218 #### LAB [address] [address] Les Malone M.D. [id number] Hematocrit (Bld) [Volume fraction] 26.8 % Low 41.0-53.0 [facility] Comment on above: Performed By: #### 4 5218 #### LAB [address] [address] Les Malone M.D. [id number] Hemoglobin (Bld) [Mass/Vol] 8.2 g/dL Low 13.5-17.5 [facility] Comment on above: Performed By: #### 4 5218 #### LAB [address] [address] Les Malone M.D. [id number] MCH (RBC) [Entitic mass] 27.8 pg Normal 26.0-34.0 [facility] Comment on above: Performed By: #### 4 5218 #### LAB [address] [address] Les Malone M.D. [id number] MCV (RBC) [Entitic vol] 90.8 fL Normal 80.0-100.0 [facility] Comment on above: Performed By: #### 4 5218 #### LAB [address] [address] Les Malone M.D. [id number] MEAN CORPUSCULAR HEMOGLOBIN CONC 30.6 g/dL Low 31.0-37.0 [facility] Comment on above: Performed By: #### 4 [id number] #### LAB [address] [address] Les Malone M.D. [id number] Platelet mean volume (Bld) [Entitic vol] 10.4 fL Normal 9.4-12.4 [facility] Comment on above: Performed By: #### 4 5218 #### LAB [address] [address] Les Malone M.D. [id number] Platelets (Bld) [#/Vol] 256 10*3/uL Normal 150-400 [facility] Comment on above: Performed By: #### 4 5218 #### LAB [address] [address] Les Malone M.D. [id number] RBC (Bld) [#/Vol] 2.95 10*6/uL Low 4.50-5.90 [facility] Comment on above: Performed By: #### 4 [id number] #### LAB [address] [address] Les Malone M.D. [id number] WBC (Bld) [#/Vol] 9.10 10*3/uL Normal 4.50-11.00 [facility] Comment on above: Performed By: #### 4 5218 #### LAB [address] [address] Les Malone M.D. [id number] CHEM 7on 02-05-2024 Anion gap [Moles/Vol] 14 mmol/L Normal 10-20 [facility] Comment on above: Order Comment: [facility] has implemented the eGFR calculation approach that does not have a coefficient for race that conforms to the NKF-ASN Task Force Recommendations. Performed By: #### 4 6953 #### LAB [address] [address] Les Malone M.D. [id number] Chloride [Moles/Vol] 103 mmol/L Normal 98-108 [facility] [place] Comment on above: Order Comment: [facility] has implemented the eGFR calculation approach that does not have a coefficient for race that conforms to the NKF-ASN Task Force Recommendations. Performed By: #### 4 6953 #### LAB [address], [place] [address] Les Malone M.D. [id number] Creatinine [Mass/Vol] 0.56 mg/dL Normal 0.50-1.30 [facility] Comment on above: Order Comment: [facility] has implemented the eGFR calculation approach that does not have a coefficient for race that conforms to the NKF-ASN Task Force Recommendations. Performed By: #### 4 6953 ####[facility] LAB [address], [place] [address] Les Malone M.D. [id number] EGFR 124 mL/min/1.73 m2 Normal >=60 [facility] Comment on above: Order Comment: [facility] has implemented the eGFR calculation approach that does not have a coefficient for race that conforms to the NKF-ASN Task Force Recommendations. Result Comment: Fanta mated GFR was calculated using the 2020 CKD-EPI creatinine equation. Performed By: #### 4 6953 #### LAB [address] [place], [place] [address] Les Malone M.D. [id number] Glucose [Mass/Vol] 90 mg/dL Normal 65-99 [facility] Comment on above: Order Comment: [facility] has implemented the eGFR calculation approach that does not have a coefficient for race that conforms to the NKF-ASN Task Force Recommendations. Performed By: #### 4 6953 ####[facility] LAB [address], [place] [address] Les Malone M.D. [id number] HCO3 (Bld) [Moles/Vol] 25 mmol/L Normal 21-32 [facility] Comment on above: Order Comment: [facility] has implemented the eGFR calculation approach that does not have a coefficient for race that conforms to the NKF-ASN Task Force Recommendations. Performed By: #### 4 6953 #### LAB [address] [address] Les Malone M.D. [id number] Potassium [Moles/Vol] 3.7 mmol/L Normal 3.5-5.1 [facility] Comment on above: Order Comment: [facility] has implemented the eGFR calculation approach that does not have a coefficient for race that conforms to the NKF-ASN Task Force Recommendations. Performed By: #### 4 6953 #### LAB [address], [place] [address] Les Malone M.D. [id number] Sodium [Moles/Vol] 138 mmol/L Normal 135-145 [facility] Comment on above: Order Comment: [facility] has implemented the eGFR calculation approach that does not have a coefficient for race that conforms to the NKF-ASN Task Force Recommendations. Performed By: #### 4 6953 #### LAB [address] [address] Les Malone M.D. [id number] Urea nitrogen [Mass/Vol] 22 mg/dL Normal 8-25 [facility] Comment on above: Order Comment: [facility] has implemented the eGFR calculation approach that does not have a coefficient for race that conforms to the NKF-ASN Task Force Recommendations. Performed By: #### 4 6953 #### LAB [address] [address] Les Malone M.D. [id number] Urea nitrogen/Creatinine [Mass ratio] 39.3 mg/mg High 10.0-20.0 [facility] Comment on above: Order Comment: [facility] has implemented the eGFR calculation approach that does not have a coefficient for race that conforms to the NKF-ASN Task Force Recommendations. Performed By: #### 4 6953 #### LAB [address], [place] [address] Les Malone M.D. [id number] POTASSIUM LEVELon 02-05-2024 Potassium [Moles/Vol] 4.2 mmol/L Normal 3.5-5.1 [facility] Comment on above: Performed By: #### 4 6351 #### LAB [address], [place] [address] Les Malone M.D. [id number] BETA 2 TRANSFERRIN, BODY FLU IDon 02-04-2024 [place] - BETA-2 TRANSFERRIN, BF Positive Abnormal [facility] Comment on above: Order Comment: Left crani site Result Comment: ---- REFERENCE VALUE Negative, no beta-2 transferrin (spinal fluid) detected. ADDITIONAL INFORMATION This test was developed and its performance characteristicsdetermined by [facility] in a manner consistent with CLIArequirements. This test has not been cleared or approved bythe U.S. 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 [id number] CBCon 02-04-2024 AUTO NRBC 0.0 % [facility] Comment on above: Performed By: #### 4 5218 #### LAB [address], [place] [address] Les Malone M.D. [id number] AUTO NRBC ABS COUNT 0.00 K/mcL Normal 0.00-0.00 [facility] Comment on above: Performed By: #### 4 5218 #### LAB [address] [address] Les Malnoe M.D. [id number] Erythrocyte distribution width (RBC) [Ratio] 17.0 % High 11.6-14.8 [facility] Comment on above: Performed By: #### 4 5218 #### LAB [address] [address] Les Malone M.D. [id number] Hematocrit (Bld) [Volume fraction] 26.8 % Low 41.0-53.0 [facility] Comment on above: Performed By: #### 4 5218 #### LAB [address] [address] Les Malone M.D. [id number] Hemoglobin (Bld) [Mass/Vol] 8.2 g/dL Low 13.5-17.5 [facility] Comment on above: Performed By: #### 4 5218 #### LAB [address] [address] Les Malone M.D. [id number] MCH (RBC) [Entitic mass] 27.4 pg Normal 26.0-34.0 [facility] Comment on above: Performed By: #### 4 5218 #### LAB [address] [address] Les Malone M.D. [id number] MCV (RBC) [Entitic vol] 89.6 fL Normal 80.0-100.0 [facility] Comment on above: Performed By: #### 4 5218 #### LAB [address] [address] Les Malone M.D. [id number] MEAN CORPUSCULAR HEMOGLOBIN CONC 30.6 g/dL Low 31.0-37.0 [facility] Comment on above: Performed By: #### 4 5218 #### LAB [address] [address] Les Malone M.D. [id number] Platelet mean volume (Bld) [Entitic vol] 10.5 fL Normal 9.4-12.4 [facility] Comment on above: Performed By: #### 4 5218 #### LAB [address] [address] Les Malone M.D. [id number] Platelets (Bld) [#/Vol] 221 10*3/uL Normal 150-400 [facility] Comment on above: Performed By: #### 4 5218 ####[facility] LAB [address] [address] Les Malone M.D. [id number] RBC (Bld) [#/Vol] 2.99 10*6/uL Low 4.50-5.90 [facility] Comment on above: Performed By: #### 4 5218 #### LAB [address] [address] Les Malone M.D. [id number] WBC (Bld) [#/Vol] 9.15 10*3/uL Normal 4.50-11.00 [facility] Comment on above: Performed By: #### 4 5218 #### LAB [address] [address] Les Malone M.D. [id number] CHEM 7on 02-04-2024 Anion gap [Moles/Vol] 14 mmol/L Normal 10-20 [facility] Comment on above: Order Comment: [facility] has implemented the eGFR calculation approach that does not have a coefficient for race that conforms to the NKF-ASN Task Force Recommendations. Performed By: #### 4 6953 #### LAB [address] [address] Les Malone M.D. [id number] Chloride [Moles/Vol] 103 mmol/L Normal 98-108 [facility] Comment on above: Order Comment: [facility] has implemented the eGFR calculation approach that does not have a coefficient for race that conforms to the NKF-ASN Task Force Recommendations. Performed By: #### 4 6953 #### LAB [address] [place], [place] [address] Les Malone M.D. [id number] Creatinine [Mass/Vol] 0.48 mg/dL Low 0.50-1.30 [facility] Comment on above: Order Comment: [facility] has implemented the eGFR calculation approach that does not have a coefficient for race that conforms to the NKF-ASN Task Force Recommendations. Performed By: #### 4 6953 #### LAB [address] [address] Les Malone M.D. [id number] EGFR 130 mL/min/1.73 m2 Normal >=60 [facility] Comment on above: Order Comment: [facility] has implemented the eGFR calculation approach that does not have a coefficient for race that conforms to the NKF-ASN Task Force Recommendations. Result Comment: Fanta mated GFR was calculated using the 2020 CKD-EPI creatinine equation. Performed By: #### 4 6953 #### LAB [address] [address] Les Malone M.D. [id number] Glucose [Mass/Vol] 93 mg/dL Normal 65-99 [facility] Comment on above: Order Comment: [facility] has implemented the eGFR calculation approach that does not have a coefficient for race that conforms to the NKF-ASN Task Force Recommendations. Performed By: #### 4 6953 ####[facility] LAB [address] [address] Les Malone M.D. [id number] HCO3 (Bld) [Moles/Vol] 26 mmol/L Normal 21-32 [facility] Comment on above: Order Comment: [facility] has implemented the eGFR calculation approach that does not have a coefficient for race that conforms to the NKF-ASN Task Force Recommendations. Performed By: #### 4 6953 ####[facility] LAB [address] [address] Les Malone M.D. [id number] Potassium [Moles/Vol] 4.0 mmol/L Normal 3.5-5.1 [facility] Comment on above: Order Comment: [facility] has implemented the eGFR calculation approach that does not have a coefficient for race that conforms to the NKF-ASN Task Force Recommendations. Performed By: #### 4 6953 #### LAB [address] [place], [place] [address] Les Malone M.D. [id number] Sodium [Moles/Vol] 139 mmol/L Normal 135-145 [facility] Comment on above: Order Comment: [facility] has implemented the eGFR calculation approach that does not have a coefficient for race that conforms to the NKF-ASN Task Force Recommendations. Performed By: #### 4 6953 #### LAB [address] [place], [place] [address] Les Malone M.D. [id number] Urea nitrogen [Mass/Vol] 24 mg/dL Normal 8-25 [facility] Comment on above: Order Comment: [facility] has implemented the eGFR calculation approach that does not have a coefficient for race that conforms to the NKF-ASN Task Force Recommendations. Performed By: #### 4 6953 #### LAB [address] [place], [place] [address] Les Malone M.D. [id number] Urea nitrogen/Creatinine [Mass ratio] 50.0 mg/mg High 10.0-20.0 [facility] Comment on above: Order Comment: [facility] has implemented the eGFR calculation approach that does not have a coefficient for race that conforms to the NKF-ASN Task Force Recommendations. Performed By: #### 4 6953 #### LAB [address] [place], [place] [address] Les Malone M.D. [id number] CT HEAD OR BRAIN WITHOUT CON TRASTon 02-04-2024 CT HEAD OR BRAIN WITHOUT CONTRAST Normal [facility] Comment on above: Order Comment: Injur y/Trauma or Illness?:Illness/OtherHow long have you had these symptoms (acute/chronic)?:AcuteReason for exam?:swelling lt side of headType of Exam?:InitialAdditional signs and symptoms?:. POC GLUCOSE - RALSon 10-02-2 024 Glucose [Mass/Vol] 111 mg/dL High [address] [place] [address] Comment on above: Performed By: #### 4 6932 #### LAB [address] [address] Les Malone M.D. [id number] Glucose [Mass/Vol] 114 mg/dL High [address] [place] [address] Comment on above: Performed By: #### 4 6932 #### LAB [address] [address] Les Malone M.D. [id number] Glucose [Mass/Vol] 99 mg/dL Normal [address] [place] [address] Comment on above: Performed By: #### 4 6932 #### LAB [address] [address] Les Malone M.D. [id number] Glucose [Mass/Vol] 106 mg/dL High [address] [place] [address] Comment on above: Performed By: #### 4 6932 #### LAB [address] [address] Les Malone M.D. [id number] CBCon 02-03-2024 AUTO NRBC 0.0 % Normal [facility] Comment on above: Performed By: #### 4 5218 #### LAB [address] [address] Les Malone M.D. [id number] AUTO NRBC ABS COUNT 0.00 K/mcL Normal 0.00-0.00 [facility] Comment on above: Performed By: #### 4 5218 #### LAB [address] [address] Les Malone M.D. [id number] Erythrocyte distribution width (RBC) [Ratio] 17.1 % High 11.6-14.8 [facility] Comment on above: Performed By: #### 4 5218 #### LAB [address] [address] Les Malone M.D. [id number] Hematocrit (Bld) [Volume fraction] 26.7 % Low 41.0-53.0 [facility] Comment on above: Performed By: #### 4 5218 #### LAB [address] [address] Les Malone M.D. [id number] Hemoglobin (Bld) [Mass/Vol] 8.2 g/dL Low 13.5-17.5 [facility] Comment on above: Performed By: #### 4 5218 #### LAB [address] [address] Les Malone M.D. [id number] MCH (RBC) [Entitic mass] 27.9 pg Normal 26.0-34.0 [facility] Comment on above: Performed By: #### 4 5218 #### LAB [address] [address] Les Malone M.D. [id number] MCV (RBC) [Entitic vol] 90.8 fL Normal 80.0-100.0 [facility] Comment on above: Performed By: #### 4 5218 #### LAB [address] [address] Les Malone M.D. [id number] MEAN CORPUSCULAR HEMOGLOBIN CONC 30.7 g/dL Low 31.0-37.0 [facility] Comment on above: Performed By: #### 4 5218 #### LAB [address] [address] Les Malone M.D. [id number] Platelet mean volume (Bld) [Entitic vol] 10.7 fL Normal 9.4-12.4 [facility] Comment on above: Performed By: #### 4 5218 #### LAB [address] [address] Les Malone M.D. [id number] Platelets (Bld) [#/Vol] 192 10*3/uL Normal 150-400 [facility] Comment on above: Performed By: #### 4 5218 #### LAB [address] [address] Les Malone M.D. [id number] RBC (Bld) [#/Vol] 2.94 10*6/uL Low 4.50-5.90 [facility] Comment on above: Performed By: #### 4 5218 #### LAB [address] [address] Les Malone M.D. [id number] WBC (Bld) [#/Vol] 8.52 10*3/uL Normal 4.50-11.00 [facility] Comment on above: Performed By: #### 4 5218 #### LAB [address] [address] Les Malone M.D. [id number] CHEM 702-03-2024 Anion gap [Moles/Vol] 12 mmol/L Normal 10-20 [facility] Comment on above: Order Comment: [facility] has implemented the eGFR calculation approach that does not have a coefficient for race that conforms to the NKF-ASN Task Force Recommendations. Performed By: #### 4 6953 #### LAB [address] [address] Les Malone M.D. [id number] Chloride [Moles/Vol] 104 mmol/L Normal 98-108 [facility] Comment on above: Order Comment: [facility] has implemented the eGFR calculation approach that does not have a coefficient for race that conforms to the NKF-ASN Task Force Recommendations. Performed By: #### 4 6953 #### LAB [address] [address] Les Malone M.D. [id number] Creatinine [Mass/Vol] 0.45 mg/dL Low 0.50-1.30 [facility] Comment on above: Order Comment: [facility] has implemented the eGFR calculation approach that does not have a coefficient for race that conforms to the NKF-ASN Task Force Recommendations. Performed By: #### 4 6953 #### LAB [address] [address] Les Malone M.D. [id number] EGFR 132 mL/min/1.73 m2 Normal >=60 [facility] Comment on above: Order Comment: [facility] Services has implemented the eGFR calculation approach that does not have a coefficient for race that conforms to the NKF-ASN Task Force Recommendations. Result Comment: Fanta mated GFR was calculated using the 2020 CKD-EPI creatinine equation. Performed By: #### 4 [id number] #### LAB [address] [place] [address] Les Malone M.D. [id number] Glucose [Mass/Vol] 111 mg/dL High 65-99 [facility] Comment on above: Order Comment: [facility] Services has implemented the eGFR calculation approach that does not have a coefficient for race that conforms to the NKF-ASN Task Force Recommendations. Performed By: #### 4 6953 #### LAB [address] [place], [place] [address] Les Malone M.D. [id number] HCO3 (Bld) [Moles/Vol] 26 mmol/L Normal 21-32 [facility] Comment on above: Order Comment: [facility] has implemented the eGFR calculation approach that does not have a coefficient for race that conforms to the NKF-ASN Task Force Recommendations. Performed By: #### 4 6953 #### LAB [address] [place], [place] [address] Les Malone M.D. [id number] Potassium [Moles/Vol] 4.0 mmol/L Normal 3.5-5.1 [facility] Comment on above: Order Comment: [facility] Services has implemented the eGFR calculation approach that does not have a coefficient for race that conforms to the NKF-ASN Task Force Recommendations. Performed By: #### 4 6953 #### LAB [address] [address] Les Malone M.D. [id number] Sodium [Moles/Vol] 138 mmol/L Normal 135-145 [facility] Comment on above: Order Comment: [facility] Services has implemented the eGFR calculation approach that does not have a coefficient for race that conforms to the NKF-ASN Task Force Recommendations. Performed By: #### 4 6953 #### LAB [address] [place], [place] [address] Les Malone M.D. [id number] Urea nitrogen [Mass/Vol] 28 mg/dL High 8-25 [facility] Comment on above: Order Comment: [facility] Services has implemented the eGFR calculation approach that does not have a coefficient for race that conforms to the NKF-ASN Task Force Recommendations. Performed By: #### 4 6953 ####[facility] LAB [address] [address] Les Malone M.D. [id number] Urea nitrogen/Creatinine [Mass ratio] 62.2 mg/mg High 10.0-20.0 [facility] Comment on above: Order Comment: [facility] Services has implemented the eGFR calculation approach that does not have a coefficient for race that conforms to the NKF-ASN Task Force Recommendations. Performed By: #### 4 6953 ####[facility] LAB [address] [address] Les Malone M.D. [id number] POC GLUCOSE [facility] 024 Glucose [Mass/Vol] 101 mg/dL High [address] [place] [address] Comment on above: Performed By: #### 4 [id number] ####[facility] LAB [address] [place] [id number] Les Malone M.D. [id number] Glucose [Mass/Vol] 93 mg/dL Normal 6599 [facility] Comment on above: Performed By: #### 4 6932 ####[facility] LAB [address] [place] [id number] Les Malone M.D. [id number] Glucose [Mass/Vol] 96 mg/dL Normal [address] [place] [address] Comment on above: Performed By: #### 4 6932 ####[facility] LAB [address] [address] Les Malone M.D. [id number] Glucose [Mass/Vol] 123 mg/dL High [address] [place] [address] Comment on above: Performed By: #### 4 [id number] #### LAB [address] [address] Les Malone M.D. [id number] Glucose [Mass/Vol] 115 mg/dL [address] Comment on above: Performed By: #### 4 6932 ####[facility] LAB [address] [address] Les Malone M.D. [id number] Glucose [Mass/Vol] 125 mg/dL [address] Comment on above: Performed By: #### 4 [id number] #### LAB [address] [address] Les Malone M.D. [id number] CBCon 02-02-2024 AUTO NRBC 0.0 % Normal [facility] Comment on above: Performed By: #### 4 [id number] #### LAB [address] [address] Les Malone M.D. [id number] AUTO NRBC ABS COUNT 0.00 K/mcL Normal 0.00-0.00 [facility] Comment on above: Performed By: #### 4 [id number] #### LAB [address] [address] Les Malone M.D. [id number] Erythrocyte distribution width (RBC) [Ratio] 17.0 % High 11.6-14.8 [facility] Comment on above: Performed By: #### 4 [id number] ####[facility] LAB [address] [address] Les Malone M.D. [id number] Hematocrit (Bld) [Volume fraction] 25.6 % Low 41.0-53.0 [facility] Comment on above: Performed By: #### 4 [id number] #### LAB [address] [address] Les Malone M.D. [id number] Hemoglobin (Bld) [Mass/Vol] 7.8 g/dL Low 13.5-17.5 [facility] Comment on above: Performed By: #### 4 [id number] #### LAB [address] [address] Les Malone M.D. [id number] MCH (RBC) [Entitic mass] 27.5 pg Normal 26.0-34.0 [facility] Comment on above: Performed By: #### 4 [id number] #### LAB [address] [address] Les Malone M.D. [id number] MCV (RBC) [Entitic vol] 90.1 fL Normal 80.0-100.0 [facility] Comment on above: Performed By: #### 4 [id number] ####[facility] [address] [address] Les Malone M.D. [id number] MEAN CORPUSCULAR HEMOGLOBIN CONC 30.5 g/dL Low 31.0-37.0 [facility] Comment on above: Performed By: #### 4 [id number] #### LAB [address] [address] Les Malone M.D. [id number] Platelet mean volume (Bld) [Entitic vol] 10.6 fL Normal 9.4-12.4 [facility] Comment on above: Performed By: #### 4 [id number] #### LAB [address] [address] Les Malone M.D. [id number] Platelets (Bld) [#/Vol] 163 10*3/uL Normal 150-400 [facility] Comment on above: Performed By: #### 4 [id number] #### LAB [address] [address] Les Malone M.D. [id number] RBC (Bld) [#/Vol] 2.84 10*6/uL Low 4.50-5.90 [facility] Comment on above: Performed By: #### 4 [id number] #### LAB [address] [address] Les Malone M.D. [id number] WBC (Bld) [#/Vol] 8.52 10*3/uL Normal 4.50-11.00 [facility] Comment on above: Performed By: #### 4 [id number] #### LAB [address] [place], [place] [address] Les Malone M.D. [id number] CHEM 7on 02-01-2023 Anion gap [Moles/Vol] 13 mmol/L Normal 10-20 [facility] Comment on above: Order Comment: [facility] Services has implemented the eGFR calculation approach that does not have a coefficient for race that conforms to the NKF-ASN Task Force Recommendations. Performed By: #### 4 6953 #### LAB [address] [place], [place] [address] Les Malone M.D. [id number] Chloride [Moles/Vol] 103 mmol/L Normal 98-108 [facility] Comment on above: Order Comment: [facility] Services has implemented the eGFR calculation approach that does not have a coefficient for race that conforms to the NKF-ASN Task Force Recommendations. Performed By: #### 4 6953 #### LAB [address] [place], [place] [address] Les Malone M.D. [id number] Creatinine [Mass/Vol] 0.43 mg/dL Low 0.50-1.30 [facility] Comment on above: Order Comment: [facility] has implemented the eGFR calculation approach that does not have a coefficient for race that conforms to the NKF-ASN Task Force Recommendations. Performed By: #### 4 6953 #### LAB [address] [place], [place] [address] Les Malone M.D. [id number] EGFR 134 mL/min/1.73 m2 Normal >=60 [facility] Comment on above: Order Comment: [facility] Services has implemented the eGFR calculation approach that does not have a coefficient for race that conforms to the NKF-ASN Task Force Recommendations. Result Comment: Fanta mated GFR was calculated using the 2020 CKD-EPI creatinine equation. Performed By: #### 4 6953 ####[facility] LAB [address] [address] Les Malone M.D. [id number] Glucose [Mass/Vol] 116 mg/dL High 65-99 [facility] Comment on above: Order Comment: [facility] Services has implemented the eGFR calculation approach that does not have a coefficient for race that conforms to the NKF-ASN Task Force Recommendations. Performed By: #### 4 6953 ####[facility] [address] [address] Les Malone M.D. [id number] HCO3 (Bld) [Moles/Vol] 24 mmol/L Normal 21-32 [facility] Comment on above: Order Comment: [facility] has implemented the eGFR calculation approach that does not have a coefficient for race that conforms to the NKF-ASN Task Force Recommendations. Performed By: #### 4 6953 ####[facility] [address] [address] Les Malone M.D. [id number] Potassium [Moles/Vol] 4.1 mmol/L Normal 3.5-5.1 [facility] Comment on above: Order Comment: [facility] has implemented the eGFR calculation approach that does not have a coefficient for race that conforms to the NKF-ASN Task Force Recommendations. Performed By: #### 4 6953 #### LAB [address] [address] Les Malone M.D. [id number] Sodium [Moles/Vol] 136 mmol/L Normal 135-145 [facility] Comment on above: Order Comment: [facility] has implemented the eGFR calculation approach that does not have a coefficient for race that conforms to the NKF-ASN Task Force Recommendations. Performed By: #### 4 6953 ####[facility] [address] [address] Les Malone M.D. [id number] Urea nitrogen [Mass/Vol] 26 mg/dL High 8-25 [facility] Comment on above: Order Comment: [facility] Services has implemented the eGFR calculation approach that does not have a coefficient for race that conforms to the NKF-ASN Task Force Recommendations. Performed By: #### 4 6953 #### LAB [address] [address] Les Malone M.D. [id number] Urea nitrogen/Creatinine [Mass ratio] 60.5 mg/mg High 10.0-20.0 [facility] Comment on above: Order Comment: [facility] Services has implemented the eGFR calculation approach that does not have a coefficient for race that conforms to the NKF-ASN Task Force Recommendations. Performed By: #### 4 6953 #### LAB [address] [address] Les Malone M.D. [id number] [facility] GLUCOSE [facility] 024 Glucose [Mass/Vol] 119 mg/dL High [address] [place] [address] Comment on above: Performed By: #### 4 6932 #### LAB [address] [address] Les Malone M.D. [id number] Glucose [Mass/Vol] 123 mg/dL [address] Comment on above: Performed By: #### 4 6932 #### LAB [address] [place] [address] Les Malone M.D. [id number] Glucose [Mass/Vol] 126 mg/dL [address] Comment on above: Performed By: #### 4 6921 #### LAB [address] [place] [address] Les Malone M.D. [id number] Glucose [Mass/Vol] 120 mg/dL [address] Comment on above: Performed By: #### 4 6966 ####[facility] LAB [address] [address] Les Malone M.D. [id number] Glucose [Mass/Vol] 116 mg/dL [address] Comment on above: Performed By: #### 4 6929 ####[facility] LAB [address] [place] [id number] Les Malone M.D. [id number] Glucose [Mass/Vol] 115 mg/dL High 65-99 [facility] Comment on above: Performed By: #### 4 6932 #### LAB [address] [address] Les Malone M.D. [id number] XR MODIFIED BARIUM SWALLOWon 02-02-2024 XR MODIFIED BARIUM SWALLOW Normal [facility] Comment on above: Order Comment: Injur y/Trauma or Illness?:Illness/OtherHow long have you had these symptoms (acute/chronic)?:AcuteReason for exam?:assess pharyngeal swallowType of Exam?:InitialAdditional signs and symptoms?:.Fluoro time in minutes:3.05three minutes and five secondsFluoro dose in mGy?:151.4 CBCon 02-01-2024 AUTO NRBC 0.0 % Normal [facility] Comment on above: Performed By: #### 4 [id number] #### LAB [address] [address] Les Malone M.D. [id number] AUTO NRBC ABS COUNT 0.00 K/mcL Normal 0.00-0.00 [facility] Comment on above: Performed By: #### 4 [id number] #### LAB [address] [address] Les Malone M.D. [id number] Erythrocyte distribution width (RBC) [Ratio] 17.4 % High 11.6-14.8 [facility] Comment on above: Performed By: #### 4 [id number] #### LAB [address] [address] Les Malone M.D. [id number] Hematocrit (Bld) [Volume fraction] 25.1 % Low 41.0-53.0 [facility] Comment on above: Performed By: #### 4 [id number] #### LAB [address] [address] Les Malone M.D. [id number] Hemoglobin (Bld) [Mass/Vol] 7.8 g/dL Low 13.5-17.5 [facility] Comment on above: Performed By: #### 4 [id number] #### LAB [address] [address] Les Malone M.D. [id number] MCH (RBC) [Entitic mass] 28.2 pg Normal 26.0-34.0 [facility] Comment on above: Performed By: #### 4 [id number] #### LAB [address] [address] Les Malone M.D. [id number] MCV (RBC) [Entitic vol] 90.6 fL Normal 80.0-100.0 [facility] Comment on above: Performed By: #### 4 [id number] #### LAB [address] [address] Les Malone M.D. [id number] MEAN CORPUSCULAR HEMOGLOBIN CONC 31.1 g/dL Normal 31.0-37.0 [facility] Comment on above: Performed By: #### 4 [id number] #### LAB [address] [address] Les Malone M.D. [id number] Platelet mean volume (Bld) [Entitic vol] 11.2 fL Normal 9.4-12.4 [facility] Comment on above: Performed By: #### 4 [id number] #### LAB [address] [address] Les Malone M.D. [id number] Platelets (Bld) [#/Vol] 153 10*3/uL Normal 150-400 [facility] Comment on above: Performed By: #### 4 [id number] #### LAB [address] [address] Les Malone M.D. [id number] RBC (Bld) [#/Vol] 2.77 10*6/uL Low 4.50-5.90 [facility] Comment on above: Performed By: #### 4 [id number] #### LAB [address] [address] Les Malone M.D. [id number] WBC (Bld) [#/Vol] 9.48 10*3/uL Normal 4.50-11.00 [facility] Comment on above: Performed By: #### 4 [id number] #### LAB [address] [place], [place] [address] Les Malone M.D. [id number] CHEM 702-01-2024 Anion gap [Moles/Vol] 12 mmol/L Normal 10-20 [facility] Comment on above: Order Comment: [facility] Services has implemented the eGFR calculation approach that does not have a coefficient for race that conforms to the NKF-ASN Task Force Recommendations. Performed By: #### 4 6953 #### LAB [address] [place], [place] [address] Les Malone M.D. [id number] Chloride [Moles/Vol] 107 mmol/L Normal 98-108 [facility] Comment on above: Order Comment: [facility] has implemented the eGFR calculation approach that does not have a coefficient for race that conforms to the NKF-ASN Task Force Recommendations. Performed By: #### 4 6953 #### LAB [address] [place], [place] [address] Les Malone M.D. [id number] Creatinine [Mass/Vol] 0.45 mg/dL Low 0.50-1.30 [facility] Comment on above: Order Comment: [facility] has implemented the eGFR calculation approach that does not have a coefficient for race that conforms to the NKF-ASN Task Force Recommendations. Performed By: #### 4 6953 #### LAB [address] [place], [place] [address] Les Malone M.D. [id number] EGFR 132 mL/min/1.73 m2 Normal >=60 [facility] Comment on above: Order Comment: [facility] Services has implemented the eGFR calculation approach that does not have a coefficient for race that conforms to the NKF-ASN Task Force Recommendations. Result Comment: Fanta mated GFR was calculated using the 2020 CKD-EPI creatinine equation. Performed By: #### 4 6953 #### LAB [address] [address] Les Malone M.D. [id number] Glucose [Mass/Vol] 116 mg/dL High 65-99 [facility] Comment on above: Order Comment: [facility] Services has implemented the eGFR calculation approach that does not have a coefficient for race that conforms to the NKF-ASN Task Force Recommendations. Performed By: #### 4 6953 #### LAB [address] [address] Les Malone M.D. [id number] HCO3 (Bld) [Moles/Vol] 24 mmol/L Normal 21-32 [facility] Comment on above: Order Comment: [facility] has implemented the eGFR calculation approach that does not have a coefficient for race that conforms to the NKF-ASN Task Force Recommendations. Performed By: #### 4 6953 #### LAB [address] [address] Les Malone M.D. [id number] Potassium [Moles/Vol] 4.2 mmol/L Normal 3.5-5.1 [facility] Comment on above: Order Comment: [facility] has implemented the eGFR calculation approach that does not have a coefficient for race that conforms to the NKF-ASN Task Force Recommendations. Performed By: #### 4 6953 #### LAB [address] [address] Les Malone M.D. [id number] Sodium [Moles/Vol] 139 mmol/L Normal 135-145 [facility] Comment on above: Order Comment: [facility] has implemented the eGFR calculation approach that does not have a coefficient for race that conforms to the NKF-ASN Task Force Recommendations. Performed By: #### 4 6953 ####[facility] [address] [address] Les Malone M.D. [id number] Urea nitrogen [Mass/Vol] 31 mg/dL High 8-25 [facility] Comment on above: Order Comment: [facility] Services has implemented the eGFR calculation approach that does not have a coefficient for race that conforms to the NKF-ASN Task Force Recommendations. Performed By: #### 4 6953 #### LAB [address] [address] Les Malone M.D. [id number] Urea nitrogen/Creatinine [Mass ratio] 68.9 mg/mg High 10.0-20.0 [facility] Comment on above: Order Comment: [facility] Services has implemented the eGFR calculation approach that does not have a coefficient for race that conforms to the NKF-ASN Task Force Recommendations. Performed By: #### 4 6953 ####[facility] [address] [address] Les Malone M.D. [id number] [facility] GLUCOSE [facility] 024 Glucose [Mass/Vol] 101 mg/dL [address] Comment on above: Performed By: #### 4 6932 #### LAB [address] [address] Les Malone M.D. [id number] Glucose [Mass/Vol] 119 mg/dL [address] Comment on above: Performed By: #### 4 6932 ####[facility] [address] [address] Les Malone M.D. [id number] Glucose [Mass/Vol] 111 mg/dL [address] Comment on above: Performed By: #### 4 6932 #### LAB [address] [address] Les Malone M.D. [id number] Glucose [Mass/Vol] 125 mg/dL [address] Comment on above: Performed By: #### 4 6932 ####[facility] [address] [place] [address] Les Malone M.D. [id number] Glucose [Mass/Vol] 125 mg/dL [address] Comment on above: Performed By: #### 4 6912 ####[facility] [address] [address] Les Malone M.D. [id number] CBCon 01-31-2024 AUTO NRBC 0.0 % Normal [facility] Comment on above: Performed By: #### 4 [id number] #### LAB [address] [address] Les Malone M.D. [id number] AUTO NRBC ABS COUNT 0.00 K/mcL Normal 0.00-0.00 [facility] Comment on above: Performed By: #### 4 [id number] #### LAB [address] [address] Les Malone M.D. [id number] Erythrocyte distribution width (RBC) [Ratio] 17.9 % High 11.6-14.8 [facility] Comment on above: Performed By: #### 4 [id number] #### LAB [address] [address] Les Malone M.D. [id number] Hematocrit (Bld) [Volume fraction] 24.7 % Low 41.0-53.0 [facility] Comment on above: Performed By: #### 4 [id number] #### LAB [address] [address] Les Malone M.D. [id number] Hemoglobin (Bld) [Mass/Vol] 8.0 g/dL Low 13.5-17.5 [facility] Comment on above: Performed By: #### 4 [id number] #### LAB [address] [address] Les Malone M.D. [id number] MCH (RBC) [Entitic mass] 28.0 pg Normal 26.0-34.0 [facility] Comment on above: Performed By: #### 4 [id number] #### LAB [address] [place] [address] Les Malone M.D. [id number] MCV (RBC) [Entitic vol] 86.4 fL Normal 80.0-100.0 [facility] Comment on above: Performed By: #### 4 [id number] #### LAB [address] [place] [address] Les Malone M.D. [id number] MEAN CORPUSCULAR HEMOGLOBIN CONC 32.4 g/dL Normal 31.0-37.0 [facility] Comment on above: Performed By: #### 4 [id number] #### LAB [address] [address] Les Malone M.D. [id number] Platelet mean volume (Bld) [Entitic vol] 10.3 fL Normal 9.4-12.4 [facility] Comment on above: Performed By: #### 4 [id number] #### LAB [address] [address] Les Malone M.D. [id number] Platelets (Bld) [#/Vol] 152 10*3/uL Normal 150-400 [facility] Comment on above: Performed By: #### 4 [id number] #### LAB [address] [address] Les Malone M.D. [id number] RBC (Bld) [#/Vol] 2.86 10*6/uL Low 4.50-5.90 [facility] Comment on above: Performed By: #### 4 [id number] #### LAB [address] [address] Les Malone M.D. [id number] WBC (Bld) [#/Vol] 11.16 10*3/uL High 4.50-11.00 [facility] Comment on above: Performed By: #### 4 [id number] #### LAB [address] [address] Les Malone M.D. [id number] CHEM 01-31-2024 Anion gap [Moles/Vol] 12 mmol/L Normal 10-20 [facility] Comment on above: Order Comment: [facility] Services has implemented the eGFR calculation approach that does not have a coefficient for race that conforms to the NKF-ASN Task Force Recommendations. Performed By: #### 4 6953 ####[facility] [address] [place], [place] [address] Les Malone M.D. [id number] Chloride [Moles/Vol] 105 mmol/L Normal 98-108 [facility] Comment on above: Order Comment: [facility] Services has implemented the eGFR calculation approach that does not have a coefficient for race that conforms to the NKF-ASN Task Force Recommendations. Performed By: #### 4 6953 ####[facility] [address] [place] [address] Les Malone M.D. [id number] Creatinine [Mass/Vol] 0.47 mg/dL Low 0.50-1.30 [facility] Comment on above: Order Comment: [facility] has implemented the eGFR calculation approach that does not have a coefficient for race that conforms to the NKF-ASN Task Force Recommendations. Performed By: #### 4 6953 #### LAB [address] [place] [address] Les Malone M.D. [id number] EGFR 131 mL/min/1.73 m2 Normal >=60 [facility] Comment on above: Order Comment: [facility] has implemented the eGFR calculation approach that does not have a coefficient for race that conforms to the NKF-ASN Task Force Recommendations. Result Comment: Fanta mated GFR was calculated using the 2020 CKD-EPI creatinine equation. Performed By: #### 4 6953 #### LAB [address] [place] [address] Les Malone M.D. [id number] Glucose [Mass/Vol] 121 mg/dL High 65-99 [facility] Comment on above: Order Comment: [facility] Services has implemented the eGFR calculation approach that does not have a coefficient for race that conforms to the NKF-ASN Task Force Recommendations. Performed By: #### 4 6953 ####[facility] [address] [address] Les Malone M.D. [id number] HCO3 (Bld) [Moles/Vol] 25 mmol/L Normal 21-32 [facility] Comment on above: Order Comment: [facility] has implemented the eGFR calculation approach that does not have a coefficient for race that conforms to the NKF-ASN Task Force Recommendations. Performed By: #### 4 6953 ####[facility] [address] [place], [place] [address] Les Malone M.D. [id number] Potassium [Moles/Vol] 3.7 mmol/L Normal 3.5-5.1 [facility] Comment on above: Order Comment: [facility] has implemented the eGFR calculation approach that does not have a coefficient for race that conforms to the NKF-ASN Task Force Recommendations. Performed By: #### 4 6953 #### LAB [address] [address] Les Malone M.D. [id number] Sodium [Moles/Vol] 138 mmol/L Normal 135-145 [facility] Comment on above: Order Comment: [facility] has implemented the eGFR calculation approach that does not have a coefficient for race that conforms to the NKF-ASN Task Force Recommendations. Performed By: #### 4 6953 #### LAB [address] [address] Les Malone M.D. [id number] Urea nitrogen [Mass/Vol] 32 mg/dL High 8-25 [facility] Comment on above: Order Comment: [facility] [facility] has implemented the eGFR calculation approach that does not have a coefficient for race that conforms to the NKF-ASN Task Force Recommendations. Performed By: #### 4 6953 ####[facility] [address] [address] Les Malone M.D. [id number] Urea nitrogen/Creatinine [Mass ratio] 68.1 mg/mg High 10.0-20.0 [facility] Comment on above: Order Comment: [facility] has implemented the eGFR calculation approach that does not have a coefficient for race that conforms to the NKF-ASN Task Force Recommendations. Performed By: #### 4 6953 #### LAB [address] [address] Les Malone M.D. [id number] POC GLUCOSE - [facility] 024 Glucose [Mass/Vol] 116 mg/dL High [address] [place] [address] Comment on above: Performed By: #### 4 [id number] ####[facility] [address] [address] Les Malone M.D. [id number] Glucose [Mass/Vol] 129 mg/dL [address] Comment on above: Performed By: #### 4 6932 ####[facility] [address] [address] Les Malone M.D. [id number] Glucose [Mass/Vol] 112 mg/dL [address] Comment on above: Performed By: #### 4 [id number] #### LAB [address] [address] Les Malone M.D. [id number] Glucose [Mass/Vol] 116 mg/dL [address] Comment on above: Performed By: #### 4 6932 ####[facility] [address] [address] Les Malone M.D. [id number] Glucose [Mass/Vol] 139 mg/dL [address] Comment on above: Performed By: #### 4 [id number] #### LAB [address] [address] Les Malone M.D. [id number] Glucose [Mass/Vol] 120 mg/dL [address] Comment on above: Performed By: #### 4 6932 ####[facility] [address] [address] Les Malone M.D. [id number] CBCon 01-30-2024 AUTO NRBC 0.0 % Normal [facility] Comment on above: Performed By: #### 4 [id number] ####[facility] [address] [address] Les Malone M.D. [id number] AUTO NRBC ABS COUNT 0.00 K/mcL Normal 0.00-0.00 [facility] Comment on above: Performed By: #### 4 [id number] #### LAB [address] [address] Les Malone M.D. [id number] Erythrocyte distribution width (RBC) [Ratio] 17.2 % High 11.6-14.8 [facility] Comment on above: Performed By: #### 4 [id number] #### LAB [address] [address] Les Malone M.D. [id number] Hematocrit (Bld) [Volume fraction] 22.7 % Low 41.0-53.0 [facility] Comment on above: Performed By: #### 4 [id number] #### LAB [address] [address] Les Malone M.D. [id number] Hemoglobin (Bld) [Mass/Vol] 7.3 g/dL Low 13.5-17.5 [facility] Comment on above: Performed By: #### 4 [id number] #### LAB [address] [address] Les Malone M.D. [id number] MCH (RBC) [Entitic mass] 28.0 pg Normal 26.0-34.0 [facility] Comment on above: Performed By: #### 4 [id number] #### LAB [address] [address] Les Malone M.D. [id number] MCV (RBC) [Entitic vol] 87.0 fL Normal 80.0-100.0 [facility] Comment on above: Performed By: #### 4 [id number] #### LAB [address] [address] Les Malone M.D. [id number] MEAN CORPUSCULAR HEMOGLOBIN CONC 32.2 g/dL Normal 31.0-37.0 [facility] Comment on above: Performed By: #### 4 [id number] #### LAB [address] [address] Les Malone M.D. [id number] Platelet mean volume (Bld) [Entitic vol] 10.4 fL Normal 9.4-12.4 [facility] Comment on above: Performed By: #### 4 [id number] #### LAB [address] [address] Les Malone M.D. [id number] Platelets (Bld) [#/Vol] 184 10*3/uL Normal 150-400 [facility] Comment on above: Performed By: #### 4 [id number] ####[facility] [address] [address] Les Malone M.D. [id number] RBC (Bld) [#/Vol] 2.61 10*6/uL Low 4.50-5.90 [facility] Comment on above: Performed By: #### 4 [id number] #### LAB [address] [address] Les Malone M.D. [id number] WBC (Bld) [#/Vol] 13.61 10*3/uL High 4.50-11.00 [facility] Comment on above: Performed By: #### 4 [id number] #### LAB [address] [address] Les Malone M.D. [id number] CHEM 7on 01-30-2024 Anion gap [Moles/Vol] 15 mmol/L Normal 10-20 [facility] Comment on above: Order Comment: [facility] has implemented the eGFR calculation approach that does not have a coefficient for race that conforms to the NKF-ASN Task Force Recommendations. Performed By: #### 4 6953 #### LAB [address] [address] Les Malone M.D. [id number] Chloride [Moles/Vol] 103 mmol/L Normal 98-108 [facility] Comment on above: Order Comment: [facility] has implemented the eGFR calculation approach that does not have a coefficient for race that conforms to the NKF-ASN Task Force Recommendations. Performed By: #### 4 6953 #### LAB [address] [place], [place] [address] Les Malone M.D. [id number] Creatinine [Mass/Vol] 0.65 mg/dL Normal 0.50-1.30 [facility] Comment on above: Order Comment: [facility] has implemented the eGFR calculation approach that does not have a coefficient for race that conforms to the NKF-ASN Task Force Recommendations. Performed By: #### 4 6953 #### LAB [address] [address] Les Malone M.D. [id number] EGFR 118 mL/min/1.73 m2 Normal >=60 [facility] Comment on above: Order Comment: [facility] has implemented the eGFR calculation approach that does not have a coefficient for race that conforms to the NKF-ASN Task Force Recommendations. Result Comment: Fanta mated GFR was calculated using the 2020 CKD-EPI creatinine equation. Performed By: #### 4 6953 #### LAB [address] [address] Les Malone M.D. [id number] Glucose [Mass/Vol] 122 mg/dL High 65-99 [facility] Comment on above: Order Comment: [facility] has implemented the eGFR calculation approach that does not have a coefficient for race that conforms to the NKF-ASN Task Force Recommendations. Performed By: #### 4 6953 #### LAB [address] [address] Les Malone M.D. [id number] HCO3 (Bld) [Moles/Vol] 24 mmol/L Normal 21-32 [facility] Comment on above: Order Comment: [facility] has implemented the eGFR calculation approach that does not have a coefficient for race that conforms to the NKF-ASN Task Force Recommendations. Performed By: #### 4 6953 #### LAB [address] [address] Les Malone M.D. [id number] Potassium [Moles/Vol] 3.7 mmol/L Normal 3.5-5.1 [facility] Comment on above: Order Comment: [facility] has implemented the eGFR calculation approach that does not have a coefficient for race that conforms to the NKF-ASN Task Force Recommendations. Performed By: #### 4 6953 #### LAB [address] [place], [place] [address] Les Malone M.D. [id number] Sodium [Moles/Vol] 138 mmol/L Normal 135-145 [facility] Comment on above: Order Comment: [facility] has implemented the eGFR calculation approach that does not have a coefficient for race that conforms to the NKF-ASN Task Force Recommendations. Performed By: #### 4 6953 #### LAB [address] [address] Les Malone M.D. [id number] Urea nitrogen [Mass/Vol] 30 mg/dL High 8-25 [facility] Comment on above: Order Comment: [facility] has implemented the eGFR calculation approach that does not have a coefficient for race that conforms to the NKF-ASN Task Force Recommendations. Performed By: #### 4 6953 #### LAB [address] [address] Les Malone M.D. [id number] Urea nitrogen/Creatinine [Mass ratio] 46.2 mg/mg High 10.0-20.0 [facility] Comment on above: Order Comment: [facility] has implemented the eGFR calculation approach that does not have a coefficient for race that conforms to the NKF-ASN Task Force Recommendations. Performed By: #### 4 6953 #### LAB [address] [place], [place] [address] Les Malone M.D. [id number] POC GLUCOSE [facility] 024 Glucose [Mass/Vol] 111 mg/dL High 65-99 [facility] Comment on above: Performed By: #### 4 6932 #### LAB [address] [id number] Les Malone M.D. [id number] Glucose [Mass/Vol] 131 mg/dL High [address] Comment on above: Performed By: #### 4 6932 #### LAB [address] [address] Les Malone M.D. [id number] Glucose [Mass/Vol] 116 mg/dL High [address] [place] [address] Comment on above: Performed By: #### 4 6932 #### LAB [address] [address] Les Malone M.D. [id number] Glucose [Mass/Vol] 141 mg/dL High [address] [place] [address] Comment on above: Performed By: #### 4 6932 #### LAB [address] [address] Les Malone M.D. [id number] CALCIUM, IONIZEDon CALCIUM IONIZED 4.6 mg/dL Normal 4.5-5.3 [facility] Comment on above: Performed By: #### 4 5190 #### LAB [address] [address] Les Malone M.D. [id number] CBCon 01-29-2024 AUTO NRBC 0.0 % Normal [facility] Comment on above: Performed By: #### 4 [id number] #### LAB [address] [address] Les Malone M.D. [id number] AUTO NRBC ABS COUNT 0.00 K/mcL Normal 0.00-0.00 [facility] Comment on above: Performed By: #### 4 [id number] #### LAB [address] [address] Les Malone M.D. [id number] Erythrocyte distribution width (RBC) [Ratio] 16.9 % High 11.6-14.8 [facility] Comment on above: Performed By: #### 4 [id number] #### LAB [address] [address] Les Malone M.D. [id number] Hematocrit (Bld) [Volume fraction] 28.9 % Low 41.0-53.0 [facility] Comment on above: Performed By: #### 4 [id number] #### LAB [address] [address] Les Malone M.D. [id number] Hemoglobin (Bld) [Mass/Vol] 9.2 g/dL Low 13.5-17.5 [facility] Comment on above: Performed By: #### 4 [id number] #### LAB [address] [address] Les Malone M.D. [id number] MCH (RBC) [Entitic mass] 28.0 pg Normal 26.0-34.0 [facility] Comment on above: Performed By: #### 4 [id number] #### LAB [address] [address] Les Malone M.D. [id number] MCV (RBC) [Entitic vol] 88.1 fL Normal 80.0-100.0 [facility] Comment on above: Performed By: #### 4 [id number] #### LAB [address] [address] Les Malone M.D. [id number] MEAN CORPUSCULAR HEMOGLOBIN CONC 31.8 g/dL Normal 31.0-37.0 [facility] Comment on above: Performed By: #### 4 [id number] #### LAB [address] [address] Les Malone M.D. [id number] Platelet mean volume (Bld) [Entitic vol] 10.0 fL Normal 9.4-12.4 [facility] Comment on above: Performed By: #### 4 [id number] #### LAB [address] [address] Les Malone M.D. [id number] Platelets (Bld) [#/Vol] 187 10*3/uL Normal 150-400 [facility] Comment on above: Performed By: #### 4 [id number] #### LAB [address] [address] Les Malone M.D. [id number] RBC (Bld) [#/Vol] 3.28 10*6/uL Low 4.50-5.90 [facility] Comment on above: Performed By: #### 4 [id number] #### LAB [address] [address] Les Malone M.D. [id number] WBC (Bld) [#/Vol] 15.83 10*3/uL High 4.50-11.00 [facility] Comment on above: Performed By: #### 4 [id number] #### LAB [address] [address] Les Malone M.D. [id number] AUTO NRBC 0.0 % Normal [facility] Comment on above: Performed By: #### 4 [id number] #### LAB [address] [address] Les Malone M.D. [id number] AUTO NRBC ABS COUNT 0.00 K/mcL Normal 0.00-0.00 [facility] Comment on above: Performed By: #### 4 [id number] #### LAB [address] [address] Les Malone M.D. [id number] Erythrocyte distribution width (RBC) [Ratio] 16.5 % High 11.6-14.8 [facility] Comment on above: Performed By: #### 4 [id number] #### LAB [address] [address] Les Malone M.D. [id number] Hematocrit (Bld) [Volume fraction] 34.1 % Low 41.0-53.0 [facility] Comment on above: Performed By: #### 4 [id number] #### LAB [address] [address] Les Malone M.D. [id number] Hemoglobin (Bld) [Mass/Vol] 10.6 g/dL Low 13.5-17.5 [facility] Comment on above: Performed By: #### 4 [id number] #### LAB [address] [address] Les Malone M.D. [id number] MCH (RBC) [Entitic mass] 27.6 pg Normal 26.0-34.0 [facility] Comment on above: Performed By: #### 4 [id number] #### LAB [address] [address] Les Malone M.D. [id number] MCV (RBC) [Entitic vol] 88.8 fL Normal 80.0-100.0 [facility] Comment on above: Performed By: #### 4 [id number] #### LAB [address] [address] Les Malone M.D. [id number] MEAN CORPUSCULAR HEMOGLOBIN CONC 31.1 g/dL Normal 31.0-37.0 [facility] Comment on above: Performed By: #### 4 [id number] #### LAB [address] [address] Les Malone M.D. [id number] Platelet mean volume (Bld) [Entitic vol] 10.2 fL Normal 9.4-12.4 [facility] Comment on above: Performed By: #### 4 [id number] #### LAB [address] [address] Les Malone M.D. [id number] Platelets (Bld) [#/Vol] 250 10*3/uL Normal 150-400 [facility] Comment on above: Performed By: #### 4 [id number] #### LAB [address] [address] Les Malone M.D. [id number] RBC (Bld) [#/Vol] 3.84 10*6/uL Low 4.50-5.90 [facility] Comment on above: Performed By: #### 4 [id number] #### LAB [address] [address] Les Malone M.D. [id number] WBC (Bld) [#/Vol] 11.80 10*3/uL High 4.50-11.00 [facility] Comment on above: Performed By: #### 4 [id number] #### LAB [address] [place], [place] [address] Les Malone M.D. [id number] CHEM 701-29-2024 Anion gap [Moles/Vol] 16 mmol/L Normal 10-20 [facility] Comment on above: Order Comment: [facility] has implemented the eGFR calculation approach that does not have a coefficient for race that conforms to the NKF-ASN Task Force Recommendations. Performed By: #### 4 6953 #### LAB [address] [place], [place] [address] Les Malone M.D. [id number] Chloride [Moles/Vol] 99 mmol/L Normal 98-108 [facility] Comment on above: Order Comment: [facility] has implemented the eGFR calculation approach that does not have a coefficient for race that conforms to the NKF-ASN Task Force Recommendations. Performed By: #### 4 6953 #### LAB [address] [place], [place] [address] Les Malone M.D. [id number] Creatinine [Mass/Vol] 0.51 mg/dL Normal 0.50-1.30 [facility] Comment on above: Order Comment: [facility] has implemented the eGFR calculation approach that does not have a coefficient for race that conforms to the NKF-ASN Task Force Recommendations. Performed By: #### 4 6953 #### LAB [address] [place], [place] [address] Les Malone M.D. [id number] EGFR 127 mL/min/1.73 m2 Normal >=60 [facility] Comment on above: Order Comment: [facility] has implemented the eGFR calculation approach that does not have a coefficient for race that conforms to the NKF-ASN Task Force Recommendations. Result Comment: Fanta mated GFR was calculated using the 2020 CKD-EPI creatinine equation. Performed By: #### 4 6953 #### LAB [address] [address] Les Malone M.D. [id number] Glucose [Mass/Vol] 113 mg/dL High 65-99 [facility] Comment on above: Order Comment: [facility] has implemented the eGFR calculation approach that does not have a coefficient for race that conforms to the NKF-ASN Task Force Recommendations. Performed By: #### 4 6953 ####[facility] [address] [address] Les Malone M.D. [id number] HCO3 (Bld) [Moles/Vol] 27 mmol/L Normal 21-32 [facility] Comment on above: Order Comment: [facility] has implemented the eGFR calculation approach that does not have a coefficient for race that conforms to the NKF-ASN Task Force Recommendations. Performed By: #### 4 6953 ####[facility] [address] [address] Les Malone M.D. [id number] Potassium [Moles/Vol] 4.2 mmol/L Normal 3.5-5.1 [facility] Comment on above: Order Comment: [facility] has implemented the eGFR calculation approach that does not have a coefficient for race that conforms to the NKF-ASN Task Force Recommendations. Performed By: #### 4 6953 ####[facility] [address] [address] Les Malone M.D. [id number] Sodium [Moles/Vol] 138 mmol/L Normal 135-145 [facility] Comment on above: Order Comment: [facility] has implemented the eGFR calculation approach that does not have a coefficient for race that conforms to the NKF-ASN Task Force Recommendations. Performed By: #### 4 6953 ####[facility] [address] [address] Les Malone M.D. [id number] Urea nitrogen [Mass/Vol] 29 mg/dL High 8-25 [facility] Comment on above: Order Comment: [facility] has implemented the eGFR calculation approach that does not have a coefficient for race that conforms to the NKF-ASN Task Force Recommendations. Performed By: #### 4 6953 #### LAB [address] [place], [place] [address] Les Malone M.D. [id number] Urea nitrogen/Creatinine [Mass ratio] 56.9 mg/mg High 10.0-20.0 [facility] Comment on above: Order Comment: [facility] has implemented the eGFR calculation approach that does not have a coefficient for race that conforms to the NKF-ASN Task Force Recommendations. Performed By: #### 4 6953 #### LAB [address] [address] Les Malone M.D. [id number] COMPREHENSIVE METABOLIC PANE [facility] 01-29-2024 Albumin [Mass/Vol] 3.4 g/dL Normal 3.2-5.2 [facility] Comment on above: Order Comment: [facility] has implemented the eGFR calculation approach that does not have a coefficient for race that conforms to the NKF-ASN Task Force Recommendations. Performed By: #### 4 6126 #### LAB [address] [address] Les Malone M.D. [id number] ALP [Catalytic activity/Vol] 71 U/L Normal 40-150 [facility] Comment on above: Order Comment: [facility] has implemented the eGFR calculation approach that does not have a coefficient for race that conforms to the NKF-ASN Task Force Recommendations. Performed By: #### 4 6126 #### LAB [address] [address] Les Malone M.D. [id number] ALT [Catalytic activity/Vol] 44 U/L Normal 0-50 U/L [facility] Comment on above: Order Comment: [facility] has implemented the eGFR calculation approach that does not have a coefficient for race that conforms to the NKF-ASN Task Force Recommendations. Performed By: #### 4 6126 #### LAB [address] [place], [place] [address] Les Malone M.D. [id number] Anion gap [Moles/Vol] 16 mmol/L Normal 10-20 [facility] Comment on above: Order Comment: [facility] has implemented the eGFR calculation approach that does not have a coefficient for race that conforms to the NKF-ASN Task Force Recommendations. Performed By: #### 4 6126 #### LAB [address] [address] Les Malone M.D. [id number] AST [Catalytic activity/Vol] 37 U/L Normal 0-50 U/L [facility] Comment on above: Order Comment: [facility] has implemented the eGFR calculation approach that does not have a coefficient for race that conforms to the NKF-ASN Task Force Recommendations. Performed By: #### 4 6126 #### LAB [address] [address] Les Malone M.D. [id number] Bilirubin [Mass/Vol] 1.2 mg/dL Normal 0.0-1.3 [facility] Comment on above: Order Comment: [facility] has implemented the eGFR calculation approach that does not have a coefficient for race that conforms to the NKF-ASN Task Force Recommendations. Performed By: #### 4 6126 #### LAB [address] [address] Les Malone M.D. [id number] Calcium [Mass/Vol] 8.5 mg/dL Normal 8.4-10.2 [facility] Comment on above: Order Comment: [facility] has implemented the eGFR calculation approach that does not have a coefficient for race that conforms to the NKF-ASN Task Force Recommendations. Performed By: #### 4 6126 ####[facility] [address] [address] Les Malone M.D. [id number] Chloride [Moles/Vol] 103 mmol/L Normal 98-108 [facility] Comment on above: Order Comment: [facility] has implemented the eGFR calculation approach that does not have a coefficient for race that conforms to the NKF-ASN Task Force Recommendations. Performed By: #### 4 6126 #### LAB [address] [address] Les Malone M.D. [id number] Creatinine [Mass/Vol] 0.87 mg/dL Normal 0.50-1.30 [facility] Comment on above: Order Comment: [facility] has implemented the eGFR calculation approach that does not have a coefficient for race that conforms to the NKF-ASN Task Force Recommendations. Performed By: #### 4 6126 #### LAB [address] [address] Les Malone M.D. [id number] EGFR 108 mL/min/1.73 m2 Normal >=60 [facility] Comment on above: Order Comment: [facility] has implemented the eGFR calculation approach that does not have a coefficient for race that conforms to the NKF-ASN Task Force Recommendations. Result Comment: Fanta mated GFR was calculated using the 2020 CKD-EPI creatinine equation. Performed By: #### 4 6126 #### LAB [address] [address] Les Malone M.D. [id number] Glucose [Mass/Vol] 101 mg/dL High 65-99 [facility] Comment on above: Order Comment: [facility] has implemented the eGFR calculation approach that does not have a coefficient for race that conforms to the NKF-ASN Task Force Recommendations. Performed By: #### 4 6126 #### LAB [address] [address] Les Malone M.D. [id number] HCO3 (Bld) [Moles/Vol] 22 mmol/L Normal 21-32 [facility] Comment on above: Order Comment: [facility] has implemented the eGFR calculation approach that does not have a coefficient for race that conforms to the NKF-ASN Task Force Recommendations. Performed By: #### 4 6126 ####[facility] [address] [address] Les Malone M.D. [id number] Potassium [Moles/Vol] 3.7 mmol/L Normal 3.5-5.1 [facility] Comment on above: Order Comment: [facility] has implemented the eGFR calculation approach that does not have a coefficient for race that conforms to the NKF-ASN Task Force Recommendations. Performed By: #### 4 6126 #### LAB [address] [address] Les Malone M.D. [id number] Protein [Mass/Vol] 5.1 g/dL Low 6.0-8.0 [facility] Comment on above: Order Comment: [facility] has implemented the eGFR calculation approach that does not have a coefficient for race that conforms to the NKF-ASN Task Force Recommendations. Performed By: #### 4 6126 #### LAB [address] [address] Les Malone M.D. [id number] Sodium [Moles/Vol] 137 mmol/L Normal 135-145 [facility] Comment on above: Order Comment: [facility] has implemented the eGFR calculation approach that does not have a coefficient for race that conforms to the NKF-ASN Task Force Recommendations. Performed By: #### 4 6126 #### LAB [address] [address] Les Malone M.D. [id number] Urea nitrogen [Mass/Vol] 29 mg/dL High 8-25 [facility] Comment on above: Order Comment: [facility] has implemented the eGFR calculation approach that does not have a coefficient for race that conforms to the NKF-ASN Task Force Recommendations. Performed By: #### 4 6126 #### LAB [address] [address] Les Malone M.D. [id number] Urea nitrogen/Creatinine [Mass ratio] 33.3 mg/mg High 10.0-20.0 [facility] Comment on above: Order Comment: [facility] has implemented the eGFR calculation approach that does not have a coefficient for race that conforms to the NKF-ASN Task Force Recommendations. Performed By: #### 4 6126 #### LAB [address] [address] Les Malone M.D. [id number] MAGNESIUM LEVELon 01-29-2024 Magnesium [Mass/Vol] 2.0 mg/dL Normal 1.6-2.4 [facility] Comment on above: Performed By: #### 4 6109 ####[facility] [address] [address] Les Malone M.D. [id number] OP NOTEon 01-29-2024 OP NOTE Normal [facility] POC ABG SURG - RALSon 2023 BASE EXCESS, ARTERIAL ISTAT -4 Low -2-2 [facility] Comment on above: Performed By: #### 4 8737 ####[facility] [address] [id number] Les Malone M.D. [id number] Glucose [Mass/Vol] 97 mg/dL Normal 65-99 [facility] Comment on above: Performed By: #### 4 8737 ####[facility] [address] [address] Les Malone M.D. [id number] HCO3 (Bld) [Moles/Vol] 20.6 mmol/L Low 22.0-26.0 [facility] Comment on above: Performed By: #### 4 8737 ####[facility] [address] [id number] Les Malone M.D. [id number] Hematocrit (Bld) [Volume fraction] 25 % Low 41-53 [facility] Comment on above: Performed By: #### 4 8737 ####[facility] [address] [id number] Les Malone M.D. [id number] Hemoglobin (Bld) [Mass/Vol] 8.5 g/dL Low 13.5-17.5 [facility] Comment on above: Performed By: #### 4 8737 ####[facility] [address] [id number] Les Malone M.D. [id number] Oxygen saturation in Blood 100.0 % High 92.0-99.0 [facility] Comment on above: Performed By: #### 4 8737 ####[facility] [address] [address] Les Malone M.D. [id number] PCO2 ARTERIAL 34.3 mm Hg Low 35.0-45.0 [facility] Comment on above: Performed By: #### 4 8737 ####[facility] [address] [address] Les Malone M.D. [id number] PH ARTERIAL 7.39 Normal 7.35-7.45 [facility] Comment on above: Performed By: #### 4 8737 ####[facility] [address] [address] Les Malone M.D. [id number] PO2 ARTERIAL 199 mm Hg High 80-100 [facility] Comment on above: Performed By: #### 4 8737 ####[facility] [address] [address] Les Malone M.D. [id number] POC IONIZED CALCIUM 4.1 mg/dL Low 4.5-5.3 [facility] Comment on above: Performed By: #### 4 8737 ####[facility] [address] [address] Les Malone M.D. [id number] Potassium [Moles/Vol] 3.7 mmol/L Normal 3.5-5.1 [facility] Comment on above: Performed By: #### 4 8737 #### LAB [address] [address] Les Malone M.D. [id number] Sodium [Moles/Vol] 139 mmol/L Normal 135-145 [facility] Comment on above: Performed By: #### 4 8737 ####[facility] [address] [address] Les Malone M.D. [id number] BASE EXCESS, ARTERIAL ISTAT -2 Normal -2-2 [facility] Comment on above: Performed By: #### 4 8759 ####[facility] [address] [address] Les Malone M.D. [id number] Glucose [Mass/Vol] 105 mg/dL High 65-99 [facility] Comment on above: Performed By: #### 4 8737 ####[facility] [address] [address] Les Malone M.D. [id number] HCO3 (Bld) [Moles/Vol] 21.4 mmol/L Low 22.0-26.0 [facility] Comment on above: Performed By: #### 4 8737 ####[facility] [address] [address] Les Malone M.D. [id number] Hematocrit (Bld) [Volume fraction] 26 % Low 41-53 [facility] Comment on above: Performed By: #### 4 8737 ####[facility] [address] [address] Les Malone M.D. [id number] Hemoglobin (Bld) [Mass/Vol] 8.8 g/dL Low 13.5-17.5 [facility] Comment on above: Performed By: #### 4 8737 ####[facility] [address] [address] Les Malone M.D. [id number] Oxygen saturation in Blood 100.0 % High 92.0-99.0 [facility] Comment on above: Performed By: #### 4 8737 ####[facility] [address] [address] Les Malone M.D. [id number] PCO2 ARTERIAL 31.5 mm Hg Low 35.0-45.0 [facility] Comment on above: Performed By: #### 4 8737 ####[facility] [address] [address] Les Malone M.D. [id number] PH ARTERIAL 7.44 Normal 7.35-7.45 [facility] Comment on above: Performed By: #### 4 8737 ####[facility] [address] [address] Les Malone M.D. [id number] PO2 ARTERIAL 205 mm Hg High 80-100 [facility] Comment on above: Performed By: #### 4 8737 ####[facility] [address] [address] Les Malone M.D. [id number] POC IONIZED CALCIUM 4.2 mg/dL Low 4.5-5.3 [facility] Comment on above: Performed By: #### 4 8737 ####[facility] [address] [address] Les Malone M.D. [id number] Potassium [Moles/Vol] 3.7 mmol/L Normal 3.5-5.1 [facility] Comment on above: Performed By: #### 4 8737 ####[facility] [address] [address] Les Malone M.D. [id number] Sodium [Moles/Vol] 139 mmol/L Normal 135-145 [facility] Comment on above: Performed By: #### 4 8737 ####[facility] [address] [address] Les Mlaone M.D. [id number] BASE EXCESS, ARTERIAL ISTAT -1 Normal -2-2 [facility] Comment on above: Performed By: #### 4 8737 #### LAB [address] [address] Les Malone M.D. [id number] Glucose [Mass/Vol] 113 mg/dL High 65-99 [facility] Comment on above: Performed By: #### 4 8737 ####[facility] [address] [address] Les Malone M.D. [id number] HCO3 (Bld) [Moles/Vol] 23.6 mmol/L Normal 22.0-26.0 [facility] Comment on above: Performed By: #### 4 8737 ####[facility] [address] [address] Les Malone M.D. [id number] Hematocrit (Bld) [Volume fraction] 30 % Low 41-53 [facility] Comment on above: Performed By: #### 4 8737 ####[facility] [address] [address] Les Malone M.D. [id number] Hemoglobin (Bld) [Mass/Vol] 10.2 g/dL Low 13.5-17.5 [facility] Comment on above: Performed By: #### 4 8737 ####[facility] [address] [address] Les Malone M.D. [id number] Oxygen saturation in Blood 100.0 % High 92.0-99.0 [facility] Comment on above: Performed By: #### 4 8737 ####[facility] [address] [address] Les Malone M.D. [id number] PCO2 ARTERIAL 40.1 mm Hg Normal 35.0-45.0 [facility] Comment on above: Performed By: #### 4 8737 ####[facility] [address] [address] Les Malone M.D. [id number] PH ARTERIAL 7.38 Normal 7.35-7.45 [facility] Comment on above: Performed By: #### 4 8737 ####[facility] [address] [address] Les Malone M.D. [id number] PO2 ARTERIAL 314 mm Hg High 80-100 [facility] Comment on above: Performed By: #### 4 8737 ####[facility] [address] [address] Les Malone M.D. [id number] POC IONIZED CALCIUM 4.3 mg/dL Low 4.5-5.3 [facility] Comment on above: Performed By: #### 4 8737 ####[facility] [address] [address] Les Malone M.D. [id number] Potassium [Moles/Vol] 3.8 mmol/L Normal 3.5-5.1 [facility] Comment on above: Performed By: #### 4 8737 #### LAB [address] [address] Les Malone M.D. [id number] Sodium [Moles/Vol] 138 mmol/L Normal 135-145 [facility] Comment on above: Performed By: #### 4 8737 ####[facility] [address] [address] Les Malone M.D. [id number] BASE EXCESS, ARTERIAL ISTAT 0 Normal -2-2 [facility] Comment on above: Performed By: #### 4 8737 ####[facility] [address] [address] Les Malone M.D. [id number] Glucose [Mass/Vol] 119 mg/dL High 65-99 [facility] Comment on above: Performed By: #### 4 8737 #### LAB [address] [address] Les Malone M.D. [id number] HCO3 (Bld) [Moles/Vol] 25.5 mmol/L Normal 22.0-26.0 [facility] Comment on above: Performed By: #### 4 8737 ####[facility] [address] [address] Les Malone M.D. [id number] Hematocrit (Bld) [Volume fraction] 27 % Low 41-53 [facility] Comment on above: Performed By: #### 4 8737 ####[facility] [address] [address] Les Malone M.D. [id number] Hemoglobin (Bld) [Mass/Vol] 9.2 g/dL Low 13.5-17.5 [facility] Comment on above: Performed By: #### 4 8737 ####[facility] [address] [address] Les Malone M.D. [id number] Oxygen saturation in Blood 100.0 % High 92.0-99.0 [facility] Comment on above: Performed By: #### 4 8737 ####[facility] [address] [id number] Les Malone M.D. [id number] PCO2 ARTERIAL 44.3 mm Hg Normal 35.0-45.0 [facility] Comment on above: Performed By: #### 4 8737 ####[facility] [address] [address] Les Malone M.D. [id number] PH ARTERIAL 7.37 Normal 7.35-7.45 [facility] Comment on above: Performed By: #### 4 8737 ####[facility] [address] [address] Les Malone M.D. [id number] PO2 ARTERIAL 329 mm Hg High 80-100 [facility] Comment on above: Performed By: #### 4 8737 ####[facility] [address] [address] Les Malone M.D. [id number] POC IONIZED CALCIUM 4.4 mg/dL Low 4.5-5.3 [facility] Comment on above: Performed By: #### 4 8737 ####[facility] [address] [address] Les Malone M.D. [id number] Potassium [Moles/Vol] 3.6 mmol/L Normal 3.5-5.1 [facility] Comment on above: Performed By: #### 4 8737 ####[facility] [address] [address] Les Malone M.D. [id number] Sodium [Moles/Vol] 138 mmol/L Normal 135-145 [facility] Comment on above: Performed By: #### 4 8737 ####[facility] [address] [address] eLs Malone M.D. [id number] BASE EXCESS, ARTERIAL ISTAT -2 Normal -2-2 [facility] Comment on above: Performed By: #### 4 8737 ####[facility] [address] [address] Les Malone M.D. [id number] Glucose [Mass/Vol] 126 mg/dL High 65-99 [facility] Comment on above: Performed By: #### 4 8737 ####[facility] [address] [id number] Les Malone M.D. [id number] HCO3 (Bld) [Moles/Vol] 23.1 mmol/L Normal 22.0-26.0 [facility] Comment on above: Performed By: #### 4 8737 ####[facility] [address] [address] Les Malone M.D. [id number] Hematocrit (Bld) [Volume fraction] 28 % Low 41-53 [facility] Comment on above: Performed By: #### 4 8737 ####[facility] [address] [address] Les Malone M.D. [id number] Hemoglobin (Bld) [Mass/Vol] 9.5 g/dL Low 13.5-17.5 [facility] Comment on above: Performed By: #### 4 8737 ####[facility] [address] [address] Les Malone M.D. [id number] Oxygen saturation in Blood 100.0 % High 92.0-99.0 [facility] Comment on above: Performed By: #### 4 8737 #### LAB [address] [id number] Les Malone M.D. [id number] PCO2 ARTERIAL 37.6 mm Hg Normal 35.0-45.0 [facility] Comment on above: Performed By: #### 4 8737 ####[facility] [address] [id number] Les Malone M.D. [id number] PH ARTERIAL 7.40 Normal 7.35-7.45 [facility] Comment on above: Performed By: #### 4 8737 ####[facility] [address] [address] Les Malone M.D. [id number] PO2 ARTERIAL 421 mm Hg High 80-100 [facility] Comment on above: Performed By: #### 4 8737 ####[facility] [address] [address] Les Malone M.D. [id number] POC IONIZED CALCIUM 4.2 mg/dL Low 4.5-5.3 [facility] Comment on above: Performed By: #### 4 8737 ####[facility] [address] [address] Les Malone M.D. [id number] Potassium [Moles/Vol] 3.5 mmol/L Normal 3.5-5.1 [facility] Comment on above: Performed By: #### 4 8737 ####[facility] [address] [address] Les Malone M.D. [id number] Sodium [Moles/Vol] 139 mmol/L Normal 135-145 [facility] Comment on above: Performed By: #### 4 8737 ####[facility] [address] [address] Les Malone M.D. [id number] BASE EXCESS, ARTERIAL ISTAT 2 Normal -2-2 [facility] Comment on above: Performed By: #### 4 8737 ####[facility] [address] [address] Les Malone M.D. [id number] Glucose [Mass/Vol] 140 mg/dL High 65-99 [facility] Comment on above: Performed By: #### 4 8737 ####[facility] [address] [address] Les Malone M.D. [id number] HCO3 (Bld) [Moles/Vol] 26.2 mmol/L High 22.0-26.0 [facility] Comment on above: Performed By: #### 4 8737 ####[facility] [address] [address] Les Malone M.D. [id number] Hematocrit (Bld) [Volume fraction] 34 % Low 41-53 [facility] Comment on above: Performed By: #### 4 8737 #### LAB [address] [address] Les Malone M.D. [id number] Hemoglobin (Bld) [Mass/Vol] 11.6 g/dL Low 13.5-17.5 [facility] Comment on above: Performed By: #### 4 8737 ####[facility] [address] [address] Les Malone M.D. [id number] Oxygen saturation in Blood 100.0 % High 92.0-99.0 [facility] Comment on above: Performed By: #### 4 8737 #### LAB [address] [address] Les Malone M.D. [id number] PCO2 ARTERIAL 38.9 mm Hg Normal 35.0-45.0 [facility] Comment on above: Performed By: #### 4 8737 #### LAB [address] [address] Les Malone M.D. [id number] PH ARTERIAL 7.44 Normal 7.35-7.45 [facility] Comment on above: Performed By: #### 4 8737 #### LAB [address] [address] Les Malone M.D. [id number] PO2 ARTERIAL 338 mm Hg High 80-100 [facility] Comment on above: Performed By: #### 4 8737 #### LAB [address] [address] Les Malone M.D. [id number] POC IONIZED CALCIUM 4.5 mg/dL Normal 4.5-5.3 [facility] Comment on above: Performed By: #### 4 8737 ####[facility] [address] [address] Les Malone M.D. [id number] Potassium [Moles/Vol] 3.9 mmol/L Normal 3.5-5.1 [facility] Comment on above: Performed By: #### 4 8737 ####[facility] [address] [address] Les Malone M.D. [id number] Sodium [Moles/Vol] 137 mmol/L Normal 135-145 [facility] Comment on above: Performed By: #### 4 8737 ####[facility] [address] [address] Les Malone M.D. [id number] BASE EXCESS, ARTERIAL ISTAT 3 High -2-2 [facility] Comment on above: Performed By: #### 4 8737 ####[facility] [address] [address] Les Malone M.D. [id number] Glucose [Mass/Vol] 137 mg/dL High 65-99 [facility] Comment on above: Performed By: #### 4 8737 ####[facility] [address] [address] Les Malone M.D. [id number] HCO3 (Bld) [Moles/Vol] 29.2 mmol/L High 22.0-26.0 [facility] Comment on above: Performed By: #### 4 8737 ####[facility] [address] [address] Les Malone M.D. [id number] Hematocrit (Bld) [Volume fraction] 35 % Low 41-53 [facility] Comment on above: Performed By: #### 4 8737 ####[facility] [address] [address] Les Malone M.D. [id number] Hemoglobin (Bld) [Mass/Vol] 11.9 g/dL Low 13.5-17.5 [facility] Comment on above: Performed By: #### 4 8737 ####[facility] [address] [address] Les Malone M.D. [id number] Oxygen saturation in Blood 100.0 % High 92.0-99.0 [facility] Comment on above: Performed By: #### 4 8778 ####[facility] [address] [address] Les Malone M.D. [id number] PCO2 ARTERIAL 51.4 mm Hg High 35.0-45.0 [facility] Comment on above: Performed By: #### 4 8737 ####[facility] [address] [address] Les Malone M.D. [id number] PH ARTERIAL 7.36 Normal 7.35-7.45 [facility] Comment on above: Performed By: #### 4 8737 ####[facility] [address] [address] Les Malone M.D. [id number] PO2 ARTERIAL 420 mm Hg High 80-100 [facility] Comment on above: Performed By: #### 4 8737 ####[facility] [address] [address] Les Malone M.D. [id number] POC IONIZED CALCIUM 4.7 mg/dL Normal 4.5-5.3 [facility] Comment on above: Performed By: #### 4 8737 ####[facility] [address] [address] Les Malone M.D. [id number] Potassium [Moles/Vol] 4.1 mmol/L Normal 3.5-5.1 [facility] Comment on above: Performed By: #### 4 8737 ####[facility] [address] [address] Les Malone M.D. [id number] Sodium [Moles/Vol] 138 mmol/L Normal 135-145 [facility] Comment on above: Performed By: #### 4 8737 ####[facility] [address] [address] Les Malone M.D. [id number] POC ARTERIAL BLOOD GAS PANEL -BRENDA Mcmahon 01-29-2024 [id number] 60.0 mm Hg Normal [facility] Comment on above: Performed By: #### 4 8716 ####[facility] [address] [address] Les Malone M.D. [id number] BASE EXCESS, ARTERIAL 0.2 Normal -2.0-2.0 [facility] Comment on above: Performed By: #### 4 8716 ####[facility] [address] [address] Les Malone M.D. [id number] FIO2 40 [facility] Comment on above: Performed By: #### 4 8716 #### LAB [address] [address] Les Malone M.D. [id number] HCO3 (Bld) [Moles/Vol] 24.8 mmol/L Normal 22.0-26.0 [facility] Comment on above: Performed By: #### 4 8716 #### LAB [address] [address] Les Malone M.D. [id number] Hematocrit (Bld) [Volume fraction] 28.7 % Low 41.0-53.0 [facility] Comment on above: Performed By: #### 4 8716 ####[facility] [address] [address] Les Malone M.D. [id number] Hemoglobin (Bld) [Mass/Vol] 9.4 g/dL Low 13.5-17.5 [facility] Comment on above: Performed By: #### 4 8716 #### LAB [address] [address] Les Malone M.D. [id number] Oxygen saturation in Blood 99.8 % High 92.0-99.0 [facility] Comment on above: Performed By: #### 4 8716 ####[facility] [address] [address] Les Malone M.D. [id number] PCO2 ARTERIAL 39.1 mm Hg Normal 35.0-45.0 [facility] Comment on above: Performed By: #### 4 8716 ####[facility] [address] [address] Les Malone M.D. [id number] PEEP RAD 5 [facility] Comment on above: Performed By: #### 4 8716 #### LAB [address] [address] Les Malone M.D. [id number] PH ARTERIAL 7.41 Normal 7.35-7.45 [facility] Comment on above: Performed By: #### 4 8716 #### LAB [address] [address] Les Malone M.D. [id number] PO2 ARTERIAL 168 mm Hg High 80-100 [facility] Comment on above: Performed By: #### 4 8716 #### LAB [address] [address] Les Malone M.D. [id number] RESP RATE RAD 20 [facility] Comment on above: Performed By: #### 4 8716 #### LAB [address] [address] Les Malone M.D. [id number] SPECIMEN SOURCE RADIANCE Not specified [facility] Comment on above: Performed By: #### 4 8716 #### LAB [address] [address] Les Malone M.D. [id number] TIDAL VOLUME RAD 480 [facility] Comment on above: Performed By: #### 4 8716 ####[facility] [address] [address] Les Malone M.D. [id number] POC GLUCOSE [facility] 024 Glucose [Mass/Vol] 130 mg/dL [address] Comment on above: Performed By: #### 4 6932 #### LAB [address] [address] Les Malone M.D. [id number] Glucose [Mass/Vol] 121 mg/dL [address] Comment on above: Performed By: #### 4 6932 #### LAB [address] [address] Les Malone M.D. [id number] Glucose [Mass/Vol] 103 mg/dL High 65-[address] [place] [address] Comment on above: Performed By: #### 4 6932 ####[facility] [address] [address] Les Malone M.D. [id number] Glucose [Mass/Vol] 102 mg/dL High [address] [place] [address] Comment on above: Performed By: #### 4 6932 ####[facility] [address] [address] Les Malone M.D. [id number] Glucose [Mass/Vol] 97 mg/dL Normal [address] [place] [address] Comment on above: Performed By: #### 4 6932 #### LAB [address] [address] Les Malone M.D. [id number] XR CHEST PA/APon 01-29-2024 XR CHEST PA/AP [facility] Comment on above: Order Comment: Injur y/Trauma or Illness?:Illness/OtherHow long have you had these symptoms (acute/chronic)?:AcuteReason for exam?:post op evalHistory of cancer?:uSurgeries, chemotherapy, or radiation?:uType of Exam?:Subsequent/Follow-upAdditional signs and symptoms?:. XR CT CERVICAL SPINE WITHOUT CONTRASTon 01-29-[address] CERVICAL SPINE WITHOUT CONTRAST [facility] Comment on above: Order Comment: Injur y/Trauma or Illness?:Injury/TraumaHow long have you had these symptoms (acute/chronic)?:UnknownReason for exam?:posterior fusionType of Exam?:Subsequent/Follow-upMechanism of injury?:motorcycle accidentFluoro time in minutes:0.2112.52secondsFluoro dose in mGy?:19.2219.22CTDlvol XR OR C-SPINE 2-3 VIEWSon XR OR C-SPINE 2-3 VIEWS [facility] Comment on above: Order Comment: Injur y/Trauma or Illness?:Injury/TraumaHow long have you had these symptoms (acute/chronic)?:AcuteReason for exam?:POSTERIOR FUSIONType of Exam?:Subsequent/Follow-upMechanism of injury?:MOTORCYCLE ACCIDENTFluoro time in minutes:0.6438.3secondsFluoro dose in mGy?:13.3 CBCon 01-28-2024 AUTO NRBC 0.0 % Normal [facility] Comment on above: Performed By: #### 4 5218 #### LAB [address] [address] Les Malone M.D. [id number] AUTO NRBC ABS COUNT 0.00 K/mcL Normal 0.00-0.00 [facility] Comment on above: Performed By: #### 4 5218 #### LAB [address] [address] Les Malone M.D. [id number] Erythrocyte distribution width (RBC) [Ratio] 16.7 % High 11.6-14.8 [facility] Comment on above: Performed By: #### 4 5218 #### LAB [address] [address] Les Malone M.D. [id number] Hematocrit (Bld) [Volume fraction] 32.5 % Low 41.0-53.0 [facility] Comment on above: Performed By: #### 4 5218 #### LAB [address] [address] Les Malone M.D. [id number] Hemoglobin (Bld) [Mass/Vol] 10.1 g/dL Low 13.5-17.5 [facility] Comment on above: Performed By: #### 4 5218 #### LAB [address] [address] Les Malone M.D. [id number] MCH (RBC) [Entitic mass] 28.3 pg Normal 26.0-34.0 [facility] Comment on above: Performed By: #### 4 5218 #### LAB [address] [address] Les Malone M.D. [id number] MCV (RBC) [Entitic vol] 91.0 fL Normal 80.0-100.0 [facility] Comment on above: Performed By: #### 4 5218 #### LAB [address] [address] Les Malone M.D. [id number] MEAN CORPUSCULAR HEMOGLOBIN CONC 31.1 g/dL Normal 31.0-37.0 [facility] Comment on above: Performed By: #### 4 5218 #### LAB [address] [address] Les Malone M.D. [id number] Platelet mean volume (Bld) [Entitic vol] 10.0 fL Normal 9.4-12.4 [facility] Comment on above: Performed By: #### 4 5218 #### LAB [address] [address] Les Malone M.D. [id number] Platelets (Bld) [#/Vol] 236 10*3/uL Normal 150-400 [facility] Comment on above: Performed By: #### 4 5218 #### LAB [address] [address] Les Malone M.D. [id number] RBC (Bld) [#/Vol] 3.57 10*6/uL Low 4.50-5.90 [facility] Comment on above: Performed By: #### 4 5218 ####[facility] [address] [address] Les Malone M.D. [id number] WBC (Bld) [#/Vol] 10.95 10*3/uL Normal 4.50-11.00 [facility] [place] Comment on above: Performed By: #### 4 5218 #### LAB [address] [address] Les Malone M.D. [id number] CHEM 701-28-2024 Anion gap [Moles/Vol] 14 mmol/L Normal 10-20 [facility] Comment on above: Order Comment: [facility] has implemented the eGFR calculation approach that does not have a coefficient for race that conforms to the NKF-ASN Task Force Recommendations. Performed By: #### 4 6953 ####[facility] [address] [place], [place] [address] Les Malone M.D. [id number] Chloride [Moles/Vol] 98 mmol/L Normal 98-108 [facility] [place] Comment on above: Order Comment: [facility] has implemented the eGFR calculation approach that does not have a coefficient for race that conforms to the NKF-ASN Task Force Recommendations. Performed By: #### 4 6953 #### LAB [address] [address] Les Malone M.D. [id number] Creatinine [Mass/Vol] 0.44 mg/dL Low 0.50-1.30 [facility] Comment on above: Order Comment: [facility] has implemented the eGFR calculation approach that does not have a coefficient for race that conforms to the NKF-ASN Task Force Recommendations. Performed By: #### 4 6953 #### LAB [address] [address] Les Malone M.D. [id number] EGFR 133 mL/min/1.73 m2 Normal >=60 [facility] Comment on above: Order Comment: [facility] has implemented the eGFR calculation approach that does not have a coefficient for race that conforms to the NKF-ASN Task Force Recommendations. Result Comment: Fanta mated GFR was calculated using the 2020 CKD-EPI creatinine equation. Performed By: #### 4 6953 #### LAB [address] [address] Les Malone M.D. [id number] Glucose [Mass/Vol] 113 mg/dL High 65-99 [facility] Comment on above: Order Comment: [facility] has implemented the eGFR calculation approach that does not have a coefficient for race that conforms to the NKF-ASN Task Force Recommendations. Performed By: #### 4 6953 ####[facility] [address] [place], [place] [address] Les Malone M.D. [id number] HCO3 (Bld) [Moles/Vol] 27 mmol/L Normal 21-32 [facility] Comment on above: Order Comment: [facility] has implemented the eGFR calculation approach that does not have a coefficient for race that conforms to the NKF-ASN Task Force Recommendations. Performed By: #### 4 6953 #### LAB [address] [address] Les Malone M.D. [id number] Potassium [Moles/Vol] 4.0 mmol/L Normal 3.5-5.1 [facility] Comment on above: Order Comment: [facility] has implemented the eGFR calculation approach that does not have a coefficient for race that conforms to the NKF-ASN Task Force Recommendations. Performed By: #### 4 6953 #### LAB [address] [address] Les Malone M.D. [id number] Sodium [Moles/Vol] 135 mmol/L Normal 135-145 [facility] Comment on above: Order Comment: [facility] has implemented the eGFR calculation approach that does not have a coefficient for race that conforms to the NKF-ASN Task Force Recommendations. Performed By: #### 4 6953 #### LAB [address] [address] Les Malone M.D. [id number] Urea nitrogen [Mass/Vol] 32 mg/dL High 8-25 [facility] Comment on above: Order Comment: [facility] has implemented the eGFR calculation approach that does not have a coefficient for race that conforms to the NKF-ASN Task Force Recommendations. Performed By: #### 4 6953 ####[facility] [address] [address] Les Malone M.D. [id number] Urea nitrogen/Creatinine [Mass ratio] 72.7 mg/mg High 10.0-20.0 [facility] Comment on above: Order Comment: [facility] has implemented the eGFR calculation approach that does not have a coefficient for race that conforms to the NKF-ASN Task Force Recommendations. Performed By: #### 4 6953 #### LAB [address] [address] Les Malone M.D. [id number] MAGNESIUM LEVELon 01-28-2024 Magnesium [Mass/Vol] 1.8 mg/dL Normal 1.6-2.4 [facility] Comment on above: Performed By: #### 4 6109 #### LAB [address] [address] Les Malone M.D. [id number] POC GLUCOSE - [facility] 024 Glucose [Mass/Vol] 118 mg/dL High [address] [place] [address] Comment on above: Performed By: #### 4 6932 ####[facility] [address] [address] Les Malone M.D. [id number] Glucose [Mass/Vol] 105 mg/dL [address] Comment on above: Performed By: #### 4 6932 ####[facility] [address] [address] Les Malone M.D. [id number] Glucose [Mass/Vol] 120 mg/dL [address] Comment on above: Performed By: #### 4 6932 #### LAB [address] [address] Les Malone M.D. [id number] Glucose [Mass/Vol] 120 mg/dL [address] Comment on above: Performed By: #### 4 6983 #### LAB [address] [address] Les Malone M.D. [id number] Glucose [Mass/Vol] 101 mg/dL [address] Comment on above: Performed By: #### 4 0256 ####[facility] [address] [address] Les Malone M.D. [id number] Glucose [Mass/Vol] 117 mg/dL [address] Comment on above: Performed By: #### 4 9484 ####[facility] [address] [address] Les Malone M.D. [id number] CBCon 01-27-2024 AUTO NRBC 0.0 % Normal [facility] Comment on above: Performed By: #### 4 [id number] #### LAB [address] [address] Les Malone M.D. [id number] AUTO NRBC ABS COUNT 0.00 K/mcL Normal 0.00-0.00 [facility] Comment on above: Performed By: #### 4 [id number] ####[facility] LAB [address] [address] Les Malone M.D. [id number] Erythrocyte distribution width (RBC) [Ratio] 17.2 % High 11.6-14.8 [facility] Comment on above: Performed By: #### 4 [id number] #### LAB [address] [address] Les Malone M.D. [id number] Hematocrit (Bld) [Volume fraction] 32.4 % Low 41.0-53.0 [facility] Comment on above: Performed By: #### 4 [id number] #### LAB [address] [address] Les Malone M.D. [id number] Hemoglobin (Bld) [Mass/Vol] 10.0 g/dL Low 13.5-17.5 [facility] Comment on above: Performed By: #### 4 [id number] #### LAB [address] [address] Lse Malone M.D. [id number] MCH (RBC) [Entitic mass] 28.2 pg Normal 26.0-34.0 [facility] Comment on above: Performed By: #### 4 [id number] #### LAB [address] [address] Les Malone M.D. [id number] MCV (RBC) [Entitic vol] 91.5 fL Normal 80.0-100.0 [facility] Comment on above: Performed By: #### 4 [id number] #### LAB [address] [address] Les Malone M.D. [id number] MEAN CORPUSCULAR HEMOGLOBIN CONC 30.9 g/dL Low 31.0-37.0 [facility] Comment on above: Performed By: #### 4 [id number] #### LAB [address] [address] Les Malone M.D. [id number] Platelet mean volume (Bld) [Entitic vol] 10.2 fL Normal 9.4-12.4 [facility] Comment on above: Performed By: #### 4 [id number] ####[facility] [address] [address] Les Malone M.D. [id number] Platelets (Bld) [#/Vol] 250 10*3/uL Normal 150-400 [facility] Comment on above: Performed By: #### 4 [id number] #### LAB [address] [address] Les Malone M.D. [id number] RBC (Bld) [#/Vol] 3.54 10*6/uL Low 4.50-5.90 [facility] Comment on above: Performed By: #### 4 [id number] #### LAB [address] [address] Les Malone M.D. [id number] WBC (Bld) [#/Vol] 10.19 10*3/uL Normal 4.50-11.00 [facility] Comment on above: Performed By: #### 4 [id number] #### LAB [address] [address] Les Malone M.D. [id number] CHEM 701-27-2024 Anion gap [Moles/Vol] 18 mmol/L Normal 10-20 [facility] Comment on above: Order Comment: [facility] has implemented the eGFR calculation approach that does not have a coefficient for race that conforms to the NKF-ASN Task Force Recommendations. Performed By: #### 4 6953 #### LAB [address] [address] Les Malone M.D. [id number] Chloride [Moles/Vol] 101 mmol/L Normal 98-108 [facility] Comment on above: Order Comment: [facility] has implemented the eGFR calculation approach that does not have a coefficient for race that conforms to the NKF-ASN Task Force Recommendations. Performed By: #### 4 6953 #### LAB [address] [address] Les Malone M.D. [id number] Creatinine [Mass/Vol] 0.47 mg/dL Low 0.50-1.30 [facility] Comment on above: Order Comment: [facility] has implemented the eGFR calculation approach that does not have a coefficient for race that conforms to the NKF-ASN Task Force Recommendations. Performed By: #### 4 6953 ####[facility] [address] [address] Les Malone M.D. [id number] EGFR 131 mL/min/1.73 m2 Normal >=60 [facility] Comment on above: Order Comment: [facility] has implemented the eGFR calculation approach that does not have a coefficient for race that conforms to the NKF-ASN Task Force Recommendations. Result Comment: Fanta mated GFR was calculated using the 2020 CKD-EPI creatinine equation. Performed By: #### 4 6953 ####[facility] [address] [address] Les Malone M.D. [id number] Glucose [Mass/Vol] 119 mg/dL High 65-99 [facility] Comment on above: Order Comment: [facility] has implemented the eGFR calculation approach that does not have a coefficient for race that conforms to the NKF-ASN Task Force Recommendations. Performed By: #### 4 6953 ####[facility] [address] [address] Les Malone M.D. [id number] HCO3 (Bld) [Moles/Vol] 24 mmol/L Normal 21-32 [facility] Comment on above: Order Comment: [facility] has implemented the eGFR calculation approach that does not have a coefficient for race that conforms to the NKF-ASN Task Force Recommendations. Performed By: #### 4 6953 #### LAB [address] [place], [place] [address] Les Malone M.D. [id number] Potassium [Moles/Vol] 4.2 mmol/L Normal 3.5-5.1 [facility] Comment on above: Order Comment: [facility] has implemented the eGFR calculation approach that does not have a coefficient for race that conforms to the NKF-ASN Task Force Recommendations. Performed By: #### 4 6953 #### LAB [address] [id number] Les Malone M.D. [id number] Sodium [Moles/Vol] 139 mmol/L Normal 135-145 [facility] Comment on above: Order Comment: [facility] has implemented the eGFR calculation approach that does not have a coefficient for race that conforms to the NKF-ASN Task Force Recommendations. Performed By: #### 4 6953 #### LAB [address] [address] Les Malone M.D. [id number] Urea nitrogen [Mass/Vol] 26 mg/dL High 8-25 [facility] Comment on above: Order Comment: [facility] has implemented the eGFR calculation approach that does not have a coefficient for race that conforms to the NKF-ASN Task Force Recommendations. Performed By: #### 4 6953 #### LAB [address] [address] Les Malone M.D. [id number] Urea nitrogen/Creatinine [Mass ratio] 55.3 mg/mg High 10.0-20.0 [facility] Comment on above: Order Comment: [facility] has implemented the eGFR calculation approach that does not have a coefficient for race that conforms to the NKF-ASN Task Force Recommendations. Performed By: #### 4 6953 #### LAB [address] [address] Les Malone M.D. [id number] [facility] Glucose [Mass/Vol] 107 mg/dL High [address] [place] [address] Comment on above: Performed By: #### 4 6932 #### LAB [address] [address] Les Malone M.D. [id number] Glucose [Mass/Vol] 107 mg/dL [address] Comment on above: Performed By: #### 4 6932 #### LAB [address] [address] Les Malone M.D. [id number] Glucose [Mass/Vol] 112 mg/dL High [address] [place] [address] Comment on above: Performed By: #### 4 6932 #### LAB [address] [address] Les Malone M.D. [id number] Glucose [Mass/Vol] 123 mg/dL [address] Comment on above: Performed By: #### 4 6932 ####[facility] [address] [address] Les Malone M.D. [id number] Glucose [Mass/Vol] 118 mg/dL [address] Comment on above: Performed By: #### 4 6932 #### LAB [address] [address] Les Malone M.D. [id number] TYPE AND SCREENon 01-27-2024 TYPE AND SCREEN ABORH: O Positive AB SCREEN: Negative EXPIRATION DATE: 01/30/2024 23:59 EST Normal [facility] CBCon 01-26-2024 AUTO NRBC 0.0 % Normal [facility] Comment on above: Performed By: #### 4 [id number] #### LAB [address] [address] Les Malone M.D. [id number] AUTO NRBC ABS COUNT 0.00 K/mcL Normal 0.00-0.00 [facility] Comment on above: Performed By: #### 4 [id number] #### LAB [address] [address] Les Malone M.D. [id number] Erythrocyte distribution width (RBC) [Ratio] 17.9 % High 11.6-14.8 [facility] Comment on above: Performed By: #### 4 [id number] #### LAB [address] [address] Les Malone M.D. [id number] Hematocrit (Bld) [Volume fraction] 31.9 % Low 41.0-53.0 [facility] Comment on above: Performed By: #### 4 [id number] #### LAB [address] [address] Les Malone M.D. [id number] Hemoglobin (Bld) [Mass/Vol] 10.0 g/dL Low 13.5-17.5 [facility] Comment on above: Performed By: #### 4 [id number] #### LAB [address] [address] Les Malone M.D. [id number] MCH (RBC) [Entitic mass] 28.3 pg Normal 26.0-34.0 [facility] Comment on above: Performed By: #### 4 [id number] #### LAB [address] [address] Les Malone M.D. [id number] MCV (RBC) [Entitic vol] 90.4 fL Normal 80.0-100.0 [facility] Comment on above: Performed By: #### 4 [id number] #### LAB [address] [address] Les Malone M.D. [id number] MEAN CORPUSCULAR HEMOGLOBIN CONC 31.3 g/dL Normal 31.0-37.0 [facility] Comment on above: Performed By: #### 4 [id number] #### LAB [address] [address] Les Malone M.D. [id number] Platelet mean volume (Bld) [Entitic vol] 10.5 fL Normal 9.4-12.4 [facility] Comment on above: Performed By: #### 4 [id number] #### LAB [address] [place], [place] [address] Les Malone M.D. [id number] Platelets (Bld) [#/Vol] 259 10*3/uL Normal 150-400 [facility] Comment on above: Performed By: #### 4 [id number] ####[facility] [address] [id number] Les Malone M.D. [id number] RBC (Bld) [#/Vol] 3.53 10*6/uL Low 4.50-5.90 [facility] Comment on above: Performed By: #### 4 [id number] ####[facility] [address] [id number] Les Malone M.D. [id number] WBC (Bld) [#/Vol] 10.04 10*3/uL Normal 4.50-11.00 [facility] Comment on above: Performed By: #### 4 [id number] #### LAB [address] [address] Les Malone M.D. [id number] CHEM 7on 01-26-2024 Anion gap [Moles/Vol] 15 mmol/L Normal 10-20 [facility] Comment on above: Order Comment: [facility] has implemented the eGFR calculation approach that does not have a coefficient for race that conforms to the NKF-ASN Task Force Recommendations. Performed By: #### 4 6953 #### LAB [address] [address] Les Malone M.D. [id number] Chloride [Moles/Vol] 100 mmol/L Normal 98-108 [facility] Comment on above: Order Comment: [facility] has implemented the eGFR calculation approach that does not have a coefficient for race that conforms to the NKF-ASN Task Force Recommendations. Performed By: #### 4 6953 #### LAB [address] [address] Les Malone M.D. [id number] Creatinine [Mass/Vol] 0.44 mg/dL Low 0.50-1.30 [facility] Comment on above: Order Comment: [facility] has implemented the eGFR calculation approach that does not have a coefficient for race that conforms to the NKF-ASN Task Force Recommendations. Performed By: #### 4 6953 #### LAB [address] [address] Les Malone M.D. [id number] EGFR 133 mL/min/1.73 m2 Normal >=60 [facility] Comment on above: Order Comment: [facility] has implemented the eGFR calculation approach that does not have a coefficient for race that conforms to the NKF-ASN Task Force Recommendations. Result Comment: Fanta mated GFR was calculated using the 2020 CKD-EPI creatinine equation. Performed By: #### 4 6953 #### LAB [address] [address] Les Malone M.D. [id number] Glucose [Mass/Vol] 115 mg/dL High 65-99 [facility] Comment on above: Order Comment: [facility] has implemented the eGFR calculation approach that does not have a coefficient for race that conforms to the NKF-ASN Task Force Recommendations. Performed By: #### 4 6953 #### LAB [address] [address] Les Malone M.D. [id number] HCO3 (Bld) [Moles/Vol] 25 mmol/L Normal 21-32 [facility] Comment on above: Order Comment: [facility] has implemented the eGFR calculation approach that does not have a coefficient for race that conforms to the NKF-ASN Task Force Recommendations. Performed By: #### 4 6953 #### LAB [address] [address] Les Malone M.D. [id number] Potassium [Moles/Vol] 4.2 mmol/L Normal 3.5-5.1 [facility] Comment on above: Order Comment: [facility] has implemented the eGFR calculation approach that does not have a coefficient for race that conforms to the NKF-ASN Task Force Recommendations. Performed By: #### 4 6953 #### LAB [address] [address] Les Malone M.D. [id number] Sodium [Moles/Vol] 136 mmol/L Normal 135-145 [facility] Comment on above: Order Comment: [facility] has implemented the eGFR calculation approach that does not have a coefficient for race that conforms to the NKF-ASN Task Force Recommendations. Performed By: #### 4 6953 #### LAB [address] [address] Les Malone M.D. [id number] Urea nitrogen [Mass/Vol] 26 mg/dL High 8-25 [facility] Comment on above: Order Comment: [facility] has implemented the eGFR calculation approach that does not have a coefficient for race that conforms to the NKF-ASN Task Force Recommendations. Performed By: #### 4 6953 #### LAB [address] [address] Les Malone M.D. [id number] Urea nitrogen/Creatinine [Mass ratio] 59.1 mg/mg High 10.0-20.0 [facility] Comment on above: Order Comment: [facility] has implemented the eGFR calculation approach that does not have a coefficient for race that conforms to the NKF-ASN Task Force Recommendations. Performed By: #### 4 6953 #### LAB [address] [address] Les [address]one M.D. [id number] CT CERVICAL SPINE WITHOUT CO NTRASTon 01-26-2024 CT CERVICAL SPINE WITHOUT CONTRAST [facility] Comment on above: Order Comment: Injur y/Trauma or Illness?:Injury/TraumaHow long have you had these symptoms (acute/chronic)?:AcuteReason for exam?:f/u post-op spinal injuryType of Exam?:Subsequent/Follow-upMechanism of injury?:. CT THORACIC SPINE WITHOUT CO NTRASTon 01-26-2024 CT THORACIC SPINE WITHOUT CONTRAST [facility] Comment on above: Order Comment: Injur y/Trauma or Illness?:Injury/TraumaHow long have you had these symptoms (acute/chronic)?:AcuteReason for exam?:f/u post-op spinal injuryType of Exam?:Subsequent/Follow-upMechanism of injury?:. POC GLUCOSE - [facility] 024 Glucose [Mass/Vol] 119 mg/dL High [address] [place] [address] Comment on above: Performed By: #### 4 [id number] #### LAB [address] [address] Les Maolne M.D. [id number] Glucose [Mass/Vol] 94 mg/dL Normal [address] [place] [address] Comment on above: Performed By: #### 4 6932 #### LAB [address] [address] Les Malone M.D. [id number] Glucose [Mass/Vol] 112 mg/dL High [address] [place] [address] Comment on above: Performed By: #### 4 6932 #### LAB [address] [address] Les Malone M.D. [id number] Glucose [Mass/Vol] 115 mg/dL High [address] [place] [address] Comment on above: Performed By: #### 4 6932 #### LAB [address] [address] Les Malone M.D. [id number] CBCon 01-25-2024 AUTO NRBC 0.0 % Normal [facility] Comment on above: Performed By: #### 4 [id number] #### LAB [address] [address] Les Malone M.D. [id number] AUTO NRBC ABS COUNT 0.00 K/mcL Normal 0.00-0.00 [facility] Comment on above: Performed By: #### 4 [id number] #### LAB [address] [address] Les Malone M.D. [id number] Erythrocyte distribution width (RBC) [Ratio] 18.1 % High 11.6-14.8 [facility] Comment on above: Performed By: #### 4 [id number] #### LAB [address] [address] Les Malone M.D. [id number] Hematocrit (Bld) [Volume fraction] 30.7 % Low 41.0-53.0 [facility] Comment on above: Performed By: #### 4 [id number] #### LAB [address] [address] Les Malone M.D. [id number] Hemoglobin (Bld) [Mass/Vol] 9.6 g/dL Low 13.5-17.5 [facility] Comment on above: Performed By: #### 4 [id number] #### LAB [address] [address] Les Malone M.D. [id number] MCH (RBC) [Entitic mass] 28.0 pg Normal 26.0-34.0 [facility] Comment on above: Performed By: #### 4 [id number] #### LAB [address] [address] Les Malone M.D. [id number] MCV (RBC) [Entitic vol] 89.5 fL Normal 80.0-100.0 [facility] Comment on above: Performed By: #### 4 [id number] #### LAB [address] [address] Les Malone M.D. [id number] MEAN CORPUSCULAR HEMOGLOBIN CONC 31.3 g/dL Normal 31.0-37.0 [facility] Comment on above: Performed By: #### 4 [id number] #### LAB [address] [address] Les Malone M.D. [id number] Platelet mean volume (Bld) [Entitic vol] 10.1 fL Normal 9.4-12.4 [facility] Comment on above: Performed By: #### 4 [id number] #### LAB [address] [address] Les Malone M.D. [id number] Platelets (Bld) [#/Vol] 253 10*3/uL Normal 150-400 [facility] Comment on above: Performed By: #### 4 [id number] #### LAB [address] [place], [place] [address] Les Malone M.D. [id number] RBC (Bld) [#/Vol] 3.43 10*6/uL Low 4.50-5.90 [facility] Comment on above: Performed By: #### 4 [id number] ####[facility] [address] [place], [place] [address] Les Malone M.D. [id number] WBC (Bld) [#/Vol] 12.05 10*3/uL High 4.50-11.00 [facility] Comment on above: Performed By: #### 4 [id number] ####[facility] [address] [place], [place] [address] Les Malone M.D. [id number] CHEM 701-25-2024 Anion gap [Moles/Vol] 14 mmol/L Normal 10-20 [facility] Comment on above: Order Comment: [facility] has implemented the eGFR calculation approach that does not have a coefficient for race that conforms to the NKF-ASN Task Force Recommendations. Performed By: #### 4 6953 #### LAB [address] [place], [place] [address] Les Malone M.D. [id number] Chloride [Moles/Vol] 100 mmol/L Normal 98-108 [facility] [place] Comment on above: Order Comment: [facility] has implemented the eGFR calculation approach that does not have a coefficient for race that conforms to the NKF-ASN Task Force Recommendations. Performed By: #### 4 6953 #### LAB [address] [place], [place] [address] Les Malone M.D. [id number] Creatinine [Mass/Vol] 0.44 mg/dL Low 0.50-1.30 [facility] Comment on above: Order Comment: [facility] has implemented the eGFR calculation approach that does not have a coefficient for race that conforms to the NKF-ASN Task Force Recommendations. Performed By: #### 4 6953 #### LAB [address] [address] Les Malone M.D. [id number] EGFR 133 mL/min/1.73 m2 Normal >=60 [facility] Comment on above: Order Comment: [facility] has implemented the eGFR calculation approach that does not have a coefficient for race that conforms to the NKF-ASN Task Force Recommendations. Result Comment: Fanta mated GFR was calculated using the 2020 CKD-EPI creatinine equation. Performed By: #### 4 6953 #### LAB [address] [address] Les Malone M.D. [id number] Glucose [Mass/Vol] 119 mg/dL High 65-99 [facility] Comment on above: Order Comment: [facility] has implemented the eGFR calculation approach that does not have a coefficient for race that conforms to the NKF-ASN Task Force Recommendations. Performed By: #### 4 6953 #### LAB [address] [address] Les Malone M.D. [id number] HCO3 (Bld) [Moles/Vol] 24 mmol/L Normal 21-32 [facility] Comment on above: Order Comment: [facility] has implemented the eGFR calculation approach that does not have a coefficient for race that conforms to the NKF-ASN Task Force Recommendations. Performed By: #### 4 6953 #### LAB [address] [address] Les Malone M.D. [id number] Potassium [Moles/Vol] 4.1 mmol/L Normal 3.5-5.1 [facility] Comment on above: Order Comment: [facility] has implemented the eGFR calculation approach that does not have a coefficient for race that conforms to the NKF-ASN Task Force Recommendations. Performed By: #### 4 6953 #### LAB [address] [address] Les Malone M.D. [id number] Sodium [Moles/Vol] 134 mmol/L Low 135-145 [facility] Comment on above: Order Comment: [facility] has implemented the eGFR calculation approach that does not have a coefficient for race that conforms to the NKF-ASN Task Force Recommendations. Performed By: #### 4 6953 ####[facility] [address] [place], [place] [address] Les Malone M.D. [id number] Urea nitrogen [Mass/Vol] 24 mg/dL Normal 8-25 [facility] Comment on above: Order Comment: [facility] has implemented the eGFR calculation approach that does not have a coefficient for race that conforms to the NKF-ASN Task Force Recommendations. Performed By: #### 4 6953 ####[facility] [address] [address] Les Malone M.D. [id number] Urea nitrogen/Creatinine [Mass ratio] 54.5 mg/mg High 10.0-20.0 [facility] Comment on above: Order Comment: [facility] has implemented the eGFR calculation approach that does not have a coefficient for race that conforms to the NKF-ASN Task Force Recommendations. Performed By: #### 4 6953 ####[facility] [address] [id number] Les Malone M.D. [id number] POC ARTERIAL BLOOD GAS PANEL [facility] 01-25-2024 [id number] 69.7 mm Hg [facility] Comment on above: Performed By: #### 4 8716 ####[facility] [address] [id number] Les Malone M.D. [id number] BASE EXCESS, ARTERIAL 4.5 High -2.0-2.0 [facility] Comment on above: Performed By: #### 4 8716 ####[facility] [address] [address] Les Malone M.D. [id number] FIO2 40 [facility] Comment on above: Performed By: #### 4 [id number] ####[facility] [address] [address] Les Malone M.D. [id number] HCO3 (Bld) [Moles/Vol] 28.0 mmol/L High 22.0-26.0 [facility] Comment on above: Performed By: #### 4 8716 ####[facility] [address] [address] Les Malone M.D. [id number] Hematocrit (Bld) [Volume fraction] 29.7 % Low 41.0-53.0 [facility] Comment on above: Performed By: #### 4 8716 ####[facility] [address] [address] Les Malone M.D. [id number] Hemoglobin (Bld) [Mass/Vol] 9.7 g/dL Low 13.5-17.5 [facility] Comment on above: Performed By: #### 4 8716 ####[facility] [address] [address] Les Malone M.D. [id number] LITER FLOW 10 Normal [facility] Comment on above: Performed By: #### 4 8716 ####[facility] [address] [address] Les Malone M.D. [id number] Oxygen saturation in Blood 99.6 % High 92.0-99.0 [facility] Comment on above: Performed By: #### 4 8716 ####[facility] [address] [address] Les Malone M.D. [id number] PCO2 ARTERIAL 36.5 mm Hg Normal 35.0-45.0 [facility] Comment on above: Performed By: #### 4 8716 ####[facility] [address] [address] Les Malone M.D. [id number] PH ARTERIAL 7.49 High 7.35-7.45 [facility] Comment on above: Performed By: #### 4 8716 ####[facility] [address] [address] Les Malone M.D. [id number] PO2 ARTERIAL 161 mm Hg High 80-100 [facility] Comment on above: Performed By: #### 4 8716 #### LAB [address] [address] Les Malone M.D. [id number] SPECIMEN SOURCE RADIANCE Not specified Normal [facility] Comment on above: Performed By: #### 4 8716 #### LAB [address] [address] Les Malone M.D. [id number] POC GLUCOSE - [facility] 024 Glucose [Mass/Vol] 108 mg/dL High [address] [place] [address] Comment on above: Performed By: #### 4 6932 #### LAB [address] [address] Les Malone M.D. [id number] Glucose [Mass/Vol] 117 mg/dL [address] Comment on above: Performed By: #### 4 6932 #### LAB [address] [address] Les Malone M.D. [id number] Glucose [Mass/Vol] 111 mg/dL [address] Comment on above: Performed By: #### 4 6932 #### LAB [address] [address] Les Malone M.D. [id number] Glucose [Mass/Vol] 108 mg/dL [address] Comment on above: Performed By: #### 4 6932 #### LAB [address] [address] Les Malone M.D. [id number] Glucose [Mass/Vol] 102 mg/dL [address] Comment on above: Performed By: #### 4 6926 #### LAB [address] [address] Les Malone M.D. [id number] Glucose [Mass/Vol] 110 mg/dL [address] Comment on above: Performed By: #### 4 6932 #### LAB [address] [address] Les Malone M.D. [id number] CBCon 01-24-2024 AUTO NRBC 0.0 % Normal [facility] Comment on above: Performed By: #### 4 [id number] #### LAB [address] [address] Les Malone M.D. [id number] AUTO NRBC ABS COUNT 0.00 K/mcL Normal 0.00-0.00 [facility] Comment on above: Performed By: #### 4 [id number] #### LAB [address] [address] Les Malone M.D. [id number] Erythrocyte distribution width (RBC) [Ratio] 18.5 % High 11.6-14.8 [facility] Comment on above: Performed By: #### 4 5218 #### LAB [address] [address] Les Malone M.D. [id number] Hematocrit (Bld) [Volume fraction] 29.9 % Low 41.0-53.0 [facility] Comment on above: Performed By: #### 4 5218 #### LAB [address] [address] Les Malone M.D. [id number] Hemoglobin (Bld) [Mass/Vol] 9.4 g/dL Low 13.5-17.5 [facility] Comment on above: Performed By: #### 4 5218 #### LAB [address] [address] Les Malone M.D. [id number] MCH (RBC) [Entitic mass] 28.1 pg Normal 26.0-34.0 [facility] Comment on above: Performed By: #### 4 [id number] #### LAB [address] [address] Les Malone M.D. [id number] MCV (RBC) [Entitic vol] 89.5 fL Normal 80.0-100.0 [facility] Comment on above: Performed By: #### 4 [id number] #### LAB [address] [address] Les Malone M.D. [id number] MEAN CORPUSCULAR HEMOGLOBIN CONC 31.4 g/dL Normal 31.0-37.0 [facility] Comment on above: Performed By: #### 4 5218 #### LAB [address] [address] Les Malone M.D. [id number] Platelet mean volume (Bld) [Entitic vol] 10.3 fL Normal 9.4-12.4 [facility] Comment on above: Performed By: #### 4 5218 #### LAB [address] [address] Les Malone M.D. [id number] Platelets (Bld) [#/Vol] 260 10*3/uL Normal 150-400 [facility] Comment on above: Performed By: #### 4 5218 #### LAB [address] [address] Les Malone M.D. [id number] RBC (Bld) [#/Vol] 3.34 10*6/uL Low 4.50-5.90 [facility] Comment on above: Performed By: #### 4 5218 #### LAB [address] [address] Les Malone M.D. [id number] WBC (Bld) [#/Vol] 13.03 10*3/uL High 4.50-11.00 [facility] Comment on above: Performed By: #### 4 5218 ####[facility] [address] [address] Les Malone M.D. [id number] CHEM 7on 01-24-2024 Anion gap [Moles/Vol] 15 mmol/L Normal 10-20 [facility] Comment on above: Order Comment: [facility] has implemented the eGFR calculation approach that does not have a coefficient for race that conforms to the NKF-ASN Task Force Recommendations. Performed By: #### 4 6953 ####[facility] [address] [id number] Les Malone M.D. [id number] Chloride [Moles/Vol] 99 mmol/L Normal 98-108 [facility] Comment on above: Order Comment: [facility] has implemented the eGFR calculation approach that does not have a coefficient for race that conforms to the NKF-ASN Task Force Recommendations. Performed By: #### 4 6953 ####[facility] [address] [address] Les Malone M.D. [id number] Creatinine [Mass/Vol] 0.52 mg/dL Normal 0.50-1.30 [facility] Comment on above: Order Comment: [facility] has implemented the eGFR calculation approach that does not have a coefficient for race that conforms to the NKF-ASN Task Force Recommendations. Performed By: #### 4 6953 #### LAB [address] [address] Les Malone M.D. [id number] EGFR 127 mL/min/1.73 m2 Normal >=60 [facility] Comment on above: Order Comment: [facility] has implemented the eGFR calculation approach that does not have a coefficient for race that conforms to the NKF-ASN Task Force Recommendations. Result Comment: Fanta mated GFR was calculated using the 2020 CKD-EPI creatinine equation. Performed By: #### 4 6953 ####[facility] [address] [address] Les Malone M.D. [id number] Glucose [Mass/Vol] 125 mg/dL High 65-99 [facility] Comment on above: Order Comment: [facility] has implemented the eGFR calculation approach that does not have a coefficient for race that conforms to the NKF-ASN Task Force Recommendations. Performed By: #### 4 6953 ####[facility] [address] [address] Les Malone M.D. [id number] HCO3 (Bld) [Moles/Vol] 23 mmol/L Normal 21-32 [facility] Comment on above: Order Comment: [facility] has implemented the eGFR calculation approach that does not have a coefficient for race that conforms to the NKF-ASN Task Force Recommendations. Performed By: #### 4 6953 #### LAB [address] [place], [place] [address] Les Malone M.D. [id number] Potassium [Moles/Vol] 4.1 mmol/L Normal 3.5-5.1 [facility] Comment on above: Order Comment: [facility] has implemented the eGFR calculation approach that does not have a coefficient for race that conforms to the NKF-ASN Task Force Recommendations. Performed By: #### 4 6953 #### LAB [address] [address] Les Malone M.D. [id number] Sodium [Moles/Vol] 133 mmol/L Low 135-145 [facility] Comment on above: Order Comment: [facility] has implemented the eGFR calculation approach that does not have a coefficient for race that conforms to the NKF-ASN Task Force Recommendations. Performed By: #### 4 6953 #### LAB [address] [address] Les Malone M.D. [id number] Urea nitrogen [Mass/Vol] 22 mg/dL Normal 8-25 [facility] Comment on above: Order Comment: [facility] has implemented the eGFR calculation approach that does not have a coefficient for race that conforms to the NKF-ASN Task Force Recommendations. Performed By: #### 4 6953 ####[facility] [address] [place], [place] [address] Les Malone M.D. [id number] Urea nitrogen/Creatinine [Mass ratio] 42.3 mg/mg High 10.0-20.0 [facility] Comment on above: Order Comment: [facility] has implemented the eGFR calculation approach that does not have a coefficient for race that conforms to the NKF-ASN Task Force Recommendations. Performed By: #### 4 6953 ####[facility] [address] [address] Les Malone M.D. [id number] POC ARTERIAL BLOOD GAS PANEL -BRENDA Salome 01-24-2024 [id number] 61.6 mm Hg Normal [facility] Comment on above: Performed By: #### 4 8716 ####[facility] [address] [address] Les Malone M.D. [id number] BASE EXCESS, ARTERIAL 2.8 High -2.0-2.0 [facility] Comment on above: Performed By: #### 4 8716 #### LAB [address] [address] Les Malone M.D. [id number] FIO2 40 Normal [facility] Comment on above: Performed By: #### 4 8716 #### LAB [address] [address] Les Malone M.D. [id number] HCO3 (Bld) [Moles/Vol] 25.9 mmol/L Normal 22.0-26.0 [facility] Comment on above: Performed By: #### 4 8716 #### LAB [address] [address] Les Malone M.D. [id number] Hematocrit (Bld) [Volume fraction] 29.8 % Low 41.0-53.0 [facility] Comment on above: Performed By: #### 4 8716 #### LAB [address] [address] Les Malone M.D. [id number] Hemoglobin (Bld) [Mass/Vol] 9.7 g/dL Low 13.5-17.5 [facility] Comment on above: Performed By: #### 4 8716 #### LAB [address] [address] Les Malone M.D. [id number] Oxygen saturation in Blood 99.8 % High 92.0-99.0 [facility] Comment on above: Performed By: #### 4 8716 ####[facility] [address] [id number] Les Malone M.D. [id number] PCO2 ARTERIAL 33.5 mm Hg Low 35.0-45.0 [facility] Comment on above: Performed By: #### 4 8716 ####[facility] [address] [id number] Les Malone M.D. [id number] PEEP RAD 5 Normal [facility] Comment on above: Performed By: #### 4 8716 ####[facility] [address] [address] Les Malone M.D. [id number] PH ARTERIAL 7.50 High 7.35-7.45 [facility] Comment on above: Performed By: #### 4 8716 #### LAB [address] [address] Les Malone M.D. [id number] PO2 ARTERIAL 171 mm Hg High 80-100 [facility] Comment on above: Performed By: #### 4 8716 ####[facility] [address] [address] Les Malone M.D. [id number] RESP RATE RAD 20 [facility] Comment on above: Performed By: #### 4 8716 #### LAB [address] [address] Les Malone M.D. [id number] SPECIMEN SOURCE RADIANCE Not specified [facility] Comment on above: Performed By: #### 4 8716 #### LAB [address] [address] Les Malone M.D. [id number] TIDAL VOLUME RAD 480 Normal [facility] Comment on above: Performed By: #### 4 8716 #### LAB [address] [id number] Les Malone M.D. [id number] [facility] Glucose [Mass/Vol] 129 mg/dL High 65-99 [facility] Comment on above: Performed By: #### 4 6932 ####[facility] [address] [address] Les Malone M.D. [id number] Glucose [Mass/Vol] 158 mg/dL High [address] [place] [address] Comment on above: Performed By: #### 4 6932 #### LAB [address] [address] Les Malone M.D. [id number] Glucose [Mass/Vol] 121 mg/dL High [address] [place] [address] Comment on above: Performed By: #### 4 6932 #### LAB [address] [address] Les Malone M.D. [id number] Glucose [Mass/Vol] 118 mg/dL High [address] [place] [address] Comment on above: Performed By: #### 4 6932 #### LAB [address] [address] Les Malone M.D. [id number] Glucose [Mass/Vol] 119 mg/dL High [address] [place] [address] Comment on above: Performed By: #### 4 6932 #### LAB [address] [address] Les Malone M.D. [id number] CBCon 01-23-2024 AUTO NRBC 0.0 % Normal [facility] Comment on above: Performed By: #### 4 [id number] #### LAB [address] [address] Les Malone M.D. [id number] AUTO NRBC ABS COUNT 0.00 K/mcL Normal 0.00-0.00 [facility] Comment on above: Performed By: #### 4 5218 #### LAB [address] [address] Les Malone M.D. [id number] Erythrocyte distribution width (RBC) [Ratio] 19.4 % High 11.6-14.8 [facility] Comment on above: Performed By: #### 4 5218 #### LAB [address] [address] Les Malone M.D. [id number] Hematocrit (Bld) [Volume fraction] 30.1 % Low 41.0-53.0 [facility] Comment on above: Performed By: #### 4 5218 #### LAB [address] [address] Les Malone M.D. [id number] Hemoglobin (Bld) [Mass/Vol] 9.6 g/dL Low 13.5-17.5 [facility] Comment on above: Performed By: #### 4 5218 #### LAB [address] [address] Les Malone M.D. [id number] MCH (RBC) [Entitic mass] 28.6 pg Normal 26.0-34.0 [facility] Comment on above: Performed By: #### 4 [id number] #### LAB [address] [address] Les Malone M.D. [id number] MCV (RBC) [Entitic vol] 89.6 fL Normal 80.0-100.0 [facility] Comment on above: Performed By: #### 4 5218 #### LAB [address] [address] Les Malone M.D. [id number] MEAN CORPUSCULAR HEMOGLOBIN CONC 31.9 g/dL Normal 31.0-37.0 [facility] Comment on above: Performed By: #### 4 5218 #### LAB [address] [address] Les Malone M.D. [id number] Platelet mean volume (Bld) [Entitic vol] 10.0 fL Normal 9.4-12.4 [facility] Comment on above: Performed By: #### 4 5218 #### LAB [address] [address] Les Malone M.D. [id number] Platelets (Bld) [#/Vol] 308 10*3/uL Normal 150-400 [facility] Comment on above: Performed By: #### 4 5218 #### LAB [address] [place], [place] [address] Les Malone M.D. [id number] RBC (Bld) [#/Vol] 3.36 10*6/uL Low 4.50-5.90 [facility] Comment on above: Performed By: #### 4 5218 ####[facility] [address] [id number] Les Malone M.D. [id number] WBC (Bld) [#/Vol] 9.96 10*3/uL Normal 4.50-11.00 [facility] Comment on above: Performed By: #### 4 5218 #### LAB [address] [address] Les Malone M.D. [id number] CHEM 701-23-2024 Anion gap [Moles/Vol] 15 mmol/L Normal 10-20 [facility] Comment on above: Order Comment: [facility] has implemented the eGFR calculation approach that does not have a coefficient for race that conforms to the NKF-ASN Task Force Recommendations. Performed By: #### 4 6953 #### LAB [address] [address] Les Malone M.D. [id number] Chloride [Moles/Vol] 105 mmol/L Normal 98-108 [facility] Comment on above: Order Comment: [facility] has implemented the eGFR calculation approach that does not have a coefficient for race that conforms to the NKF-ASN Task Force Recommendations. Performed By: #### 4 6953 #### LAB [address] [address] Les Malone M.D. [id number] Creatinine [Mass/Vol] 0.51 mg/dL Normal 0.50-1.30 [facility] Comment on above: Order Comment: [facility] has implemented the eGFR calculation approach that does not have a coefficient for race that conforms to the NKF-ASN Task Force Recommendations. Performed By: #### 4 6953 #### LAB [address] [address] Les Malone M.D. [id number] EGFR 127 mL/min/1.73 m2 Normal >=60 [facility] Comment on above: Order Comment: [facility] has implemented the eGFR calculation approach that does not have a coefficient for race that conforms to the NKF-ASN Task Force Recommendations. Result Comment: Fanta mated GFR was calculated using the 2020 CKD-EPI creatinine equation. Performed By: #### 4 6953 ####[facility] [address] [address] Les Malone M.D. [id number] Glucose [Mass/Vol] 118 mg/dL High 65-99 [facility] Comment on above: Order Comment: [facility] has implemented the eGFR calculation approach that does not have a coefficient for race that conforms to the NKF-ASN Task Force Recommendations. Performed By: #### 4 6953 #### LAB [address] [address] Les Malone M.D. [id number] HCO3 (Bld) [Moles/Vol] 23 mmol/L Normal 21-32 [facility] Comment on above: Order Comment: [facility] has implemented the eGFR calculation approach that does not have a coefficient for race that conforms to the NKF-ASN Task Force Recommendations. Performed By: #### 4 6953 #### LAB [address] [place], [place] [address] Les Malone M.D. [id number] Potassium [Moles/Vol] 3.9 mmol/L Normal 3.5-5.1 [facility] Comment on above: Order Comment: [facility] has implemented the eGFR calculation approach that does not have a coefficient for race that conforms to the NKF-ASN Task Force Recommendations. Performed By: #### 4 6953 ####[facility] [address] [address] Les Malone M.D. [id number] Sodium [Moles/Vol] 139 mmol/L Normal 135-145 [facility] Comment on above: Order Comment: [facility] has implemented the eGFR calculation approach that does not have a coefficient for race that conforms to the NKF-ASN Task Force Recommendations. Performed By: #### 4 6953 ####[facility] [address] [place], [place] [address] Les Malone M.D. [id number] Urea nitrogen [Mass/Vol] 19 mg/dL Normal 8-25 [facility] Comment on above: Order Comment: [facility] has implemented the eGFR calculation approach that does not have a coefficient for race that conforms to the NKF-ASN Task Force Recommendations. Performed By: #### 4 6953 #### LAB [address] [place], [place] [address] Les Malone M.D. [id number] Urea nitrogen/Creatinine [Mass ratio] 37.3 mg/mg High 10.0-20.0 [facility] Comment on above: Order Comment: [facility] has implemented the eGFR calculation approach that does not have a coefficient for race that conforms to the NKF-ASN Task Force Recommendations. Performed By: #### 4 6953 #### LAB [address] [place], [place] [address] Les Malone M.D. [id number] MAGNESIUM LEVELon 01-23-2024 Magnesium [Mass/Vol] 1.8 mg/dL Normal 1.6-2.4 [facility] Comment on above: Performed By: #### 4 6109 ####[facility] [address] [address] Les Malone M.D. [id number] Magnesium [Mass/Vol] 1.7 mg/dL Normal 1.6-2.4 [facility] Comment on above: Performed By: #### 4 6109 ####[facility] [address] [place], [place] [address] Les Malone M.D. [id number] POC ARTERIAL BLOOD GAS PANEL -[facility] 01-23-2024 [id number] 140.7 mm Hg Normal [facility] Comment on above: Performed By: #### 4 8716 ####[facility] [address] [address] Les Malone M.D. [id number] BASE EXCESS, ARTERIAL 3.7 High -2.0-2.0 [facility] Comment on above: Performed By: #### 4 8716 ####[facility] [address] [address] Les Malone M.D. [id number] FIO2 40 Normal [facility] Comment on above: Performed By: #### 4 8716 ####[facility] [address] [address] Les Malone M.D. [id number] HCO3 (Bld) [Moles/Vol] 26.8 mmol/L High 22.0-26.0 [facility] Comment on above: Performed By: #### 4 8716 ####[facility] [address] [address] Les Malone M.D. [id number] Hematocrit (Bld) [Volume fraction] 32.1 % Low 41.0-53.0 [facility] Comment on above: Performed By: #### 4 8716 ####[facility] [address] [address] Les Malone M.D. [id number] Hemoglobin (Bld) [Mass/Vol] 10.5 g/dL Low 13.5-17.5 [facility] Comment on above: Performed By: #### 4 8716 #### LAB [address] [address] Les Malone M.D. [id number] Oxygen saturation in Blood 98.3 % Normal 92.0-99.0 [facility] Comment on above: Performed By: #### 4 8716 ####[facility] [address] [address] Les Malone M.D. [id number] PCO2 ARTERIAL 34.0 mm Hg Low 35.0-45.0 [facility] Comment on above: Performed By: #### 4 8716 ####[facility] [address] [address] Les Malone M.D. [id number] PEEP RAD 5 [facility] Comment on above: Performed By: #### 4 8716 #### LAB [address] [address] Les Malone M.D. [id number] PH ARTERIAL 7.50 High 7.35-7.45 [facility] Comment on above: Performed By: #### 4 8716 ####[facility] [address] [address] Les Malone M.D. [id number] PO2 ARTERIAL 92 mm Hg Normal 80-100 [facility] Comment on above: Performed By: #### 4 8716 ####[facility] [address] [address] Les Malone M.D. [id number] RESP RATE RAD 20 [facility] Comment on above: Performed By: #### 4 8716 ####[facility] [address] [address] Les Malone M.D. [id number] SPECIMEN SOURCE RADIANCE Not specified [facility] Comment on above: Performed By: #### 4 8716 ####[facility] [address] [address] Les Malone M.D. [id number] TIDAL VOLUME RAD 480 Normal [facility] Comment on above: Performed By: #### 4 8716 ####[facility] [address] [address] Les Malone M.D. [id number] POC GLUCOSE - [facility] 024 Glucose [Mass/Vol] 111 mg/dL High 65-99 [facility] Comment on above: Performed By: #### 4 6932 ####[facility] [address] [address] Les Malone M.D. [id number] Glucose [Mass/Vol] 115 mg/dL High 65-99 [facility] Comment on above: Performed By: #### 4 6932 ####[facility] [address] [address] Les Malone M.D. [id number] Glucose [Mass/Vol] 109 mg/dL High [address] [place] [address] Comment on above: Performed By: #### 4 6932 #### LAB [address] [address] Les Malone M.D. [id number] Glucose [Mass/Vol] 115 mg/dL High [address] [place] [address] Comment on above: Performed By: #### 4 6932 ####[facility] [address] [address] Les Malone M.D. [id number] Glucose [Mass/Vol] 106 mg/dL High [address] [place] [address] Comment on above: Performed By: #### 4 6932 ####[facility] [address] [address] Les aMlone M.D. [id number] POTASSIUM LEVELon 01-23-2024 Potassium [Moles/Vol] 4.0 mmol/L Normal 3.5-5.1 [facility] Comment on above: Performed By: #### 4 6351 #### LAB [address] [address] Les Malone M.D. [id number] CALCIUM, IONIZEDon CALCIUM IONIZED 4.5 mg/dL Normal 4.5-5.3 [facility] Comment on above: Performed By: #### 4 5190 #### LAB [address] [address] Les Malone M.D. [id number] CBCon 01-22-2024 AUTO NRBC 0.0 % Normal [facility] Comment on above: Performed By: #### 4 [id number] #### LAB [address] [address] Les Malone M.D. [id number] AUTO NRBC ABS COUNT 0.00 K/mcL Normal 0.00-0.00 [facility] Comment on above: Performed By: #### 4 5218 #### LAB [address] [address] Les Malone M.D. [id number] Erythrocyte distribution width (RBC) [Ratio] 19.1 % High 11.6-14.8 [facility] Comment on above: Performed By: #### 4 5218 #### LAB [address] [address] Les Malone M.D. [id number] Hematocrit (Bld) [Volume fraction] 33.0 % Low 41.0-53.0 [facility] Comment on above: Performed By: #### 4 5218 #### LAB [address] [address] Les Malone M.D. [id number] Hemoglobin (Bld) [Mass/Vol] 10.5 g/dL Low 13.5-17.5 [facility] Comment on above: Performed By: #### 4 5218 #### LAB [address] [address] Les Malone M.D. [id number] MCH (RBC) [Entitic mass] 28.6 pg Normal 26.0-34.0 [facility] Comment on above: Performed By: #### 4 5218 #### LAB [address] [address] Les Malone M.D. [id number] MCV (RBC) [Entitic vol] 89.9 fL Normal 80.0-100.0 [facility] Comment on above: Performed By: #### 4 5218 #### LAB [address] [address] Les Malone M.D. [id number] MEAN CORPUSCULAR HEMOGLOBIN CONC 31.8 g/dL Normal 31.0-37.0 [facility] Comment on above: Performed By: #### 4 5218 #### LAB [address] [address] Les Malone M.D. [id number] Platelet mean volume (Bld) [Entitic vol] 10.3 fL Normal 9.4-12.4 [facility] Comment on above: Performed By: #### 4 [id number] #### LAB [address] [address] Les Malone M.D. [id number] Platelets (Bld) [#/Vol] 380 10*3/uL Normal 150-400 [facility] Comment on above: Performed By: #### 4 [id number] #### LAB [address] [address] Les Malone M.D. [id number] RBC (Bld) [#/Vol] 3.67 10*6/uL Low 4.50-5.90 [facility] Comment on above: Performed By: #### 4 [id number] #### LAB [address] [address] Les Malone M.D. [id number] WBC (Bld) [#/Vol] 10.85 10*3/uL Normal 4.50-11.00 [facility] Comment on above: Performed By: #### 4 [id number] #### LAB [address] [address] Les Malone M.D. [id number] AUTO NRBC 0.0 % Normal [facility] Comment on above: Performed By: #### 4 [id number] #### LAB [address] [address] Les Malone M.D. [id number] AUTO NRBC ABS COUNT 0.00 K/mcL Normal 0.00-0.00 [facility] Comment on above: Performed By: #### 4 [id number] #### LAB [address] [address] Les Malone M.D. [id number] Erythrocyte distribution width (RBC) [Ratio] 18.3 % High 11.6-14.8 [facility] Comment on above: Performed By: #### 4 [id number] #### LAB [address] [address] Les Malone M.D. [id number] Hematocrit (Bld) [Volume fraction] 27.0 % Low 41.0-53.0 [facility] Comment on above: Performed By: #### 4 [id number] #### LAB [address] [address] Les Malone M.D. [id number] Hemoglobin (Bld) [Mass/Vol] 8.2 g/dL Low 13.5-17.5 [facility] Comment on above: Performed By: #### 4 [id number] #### LAB [address] [address] Les Malone M.D. [id number] MCH (RBC) [Entitic mass] 28.1 pg Normal 26.0-34.0 [facility] Comment on above: Performed By: #### 4 [id number] #### LAB [address] [address] Les Malone M.D. [id number] MCV (RBC) [Entitic vol] 92.5 fL Normal 80.0-100.0 [facility] Comment on above: Performed By: #### 4 [id number] #### LAB [address] [address] Les Maolne M.D. [id number] MEAN CORPUSCULAR HEMOGLOBIN CONC 30.4 g/dL Low 31.0-37.0 [facility] Comment on above: Performed By: #### 4 [id number] #### LAB [address] [address] Les Malone M.D. [id number] Platelet mean volume (Bld) [Entitic vol] 10.4 fL Normal 9.4-12.4 [facility] Comment on above: Performed By: #### 4 [id number] #### LAB [address] [address] Les Malone M.D. [id number] Platelets (Bld) [#/Vol] 378 10*3/uL Normal 150-400 [facility] Comment on above: Performed By: #### 4 [id number] #### LAB [address] [address] Les Malone M.D. [id number] RBC (Bld) [#/Vol] 2.92 10*6/uL Low 4.50-5.90 [facility] Comment on above: Performed By: #### 4 5218 #### LAB [address] [place], [place] [address] Les Maolne M.D. [id number] WBC (Bld) [#/Vol] 8.99 10*3/uL Normal 4.50-11.00 [facility] Comment on above: Performed By: #### 4 [id number] #### LAB [address] [place], [place] [address] Les Malone M.D. [id number] CHEM 701-22-2024 Anion gap [Moles/Vol] 14 mmol/L Normal 10-20 [facility] Comment on above: Order Comment: [facility] has implemented the eGFR calculation approach that does not have a coefficient for race that conforms to the NKF-ASN Task Force Recommendations. Performed By: #### 4 6953 #### LAB [address], [place] [address] Les Malone M.D. [id number] Chloride [Moles/Vol] 110 mmol/L High 98-108 [facility] Comment on above: Order Comment: [facility] has implemented the eGFR calculation approach that does not have a coefficient for race that conforms to the NKF-ASN Task Force Recommendations. Performed By: #### 4 6953 #### LAB [address] [place], [place] [address] Les Malone M.D. [id number] Creatinine [Mass/Vol] 0.52 mg/dL Normal 0.50-1.30 [facility] Comment on above: Order Comment: [facility] has implemented the eGFR calculation approach that does not have a coefficient for race that conforms to the NKF-ASN Task Force Recommendations. Performed By: #### 4 6953 #### LAB [address], [place] [address] Les Malone M.D. [id number] EGFR 127 mL/min/1.73 m2 Normal >=60 [facility] Comment on above: Order Comment: [facility] has implemented the eGFR calculation approach that does not have a coefficient for race that conforms to the NKF-ASN Task Force Recommendations. Result Comment: Fanta mated GFR was calculated using the 2020 CKD-EPI creatinine equation. Performed By: #### 4 6953 #### LAB [address] [address] Les Malone M.D. [id number] Glucose [Mass/Vol] 86 mg/dL Normal 65-99 [facility] Comment on above: Order Comment: [facility] has implemented the eGFR calculation approach that does not have a coefficient for race that conforms to the NKF-ASN Task Force Recommendations. Performed By: #### 4 6953 #### LAB [address] [address] Les Malone M.D. [id number] HCO3 (Bld) [Moles/Vol] 24 mmol/L Normal 21-32 [facility] Comment on above: Order Comment: [facility] has implemented the eGFR calculation approach that does not have a coefficient for race that conforms to the NKF-ASN Task Force Recommendations. Performed By: #### 4 6953 #### LAB [address] [address] Les Malone M.D. [id number] Potassium [Moles/Vol] 3.7 mmol/L Normal 3.5-5.1 [facility] Comment on above: Order Comment: [facility] has implemented the eGFR calculation approach that does not have a coefficient for race that conforms to the NKF-ASN Task Force Recommendations. Performed By: #### 4 6953 ####[facility] LAB [address] [address] Les Malone M.D. [id number] Sodium [Moles/Vol] 144 mmol/L Normal 135-145 [facility] Comment on above: Order Comment: [facility] has implemented the eGFR calculation approach that does not have a coefficient for race that conforms to the NKF-ASN Task Force Recommendations. Performed By: #### 4 6953 ####[facility] LAB [address] [place], [place] [address] Les Malone M.D. [id number] Urea nitrogen [Mass/Vol] 16 mg/dL Normal 8-25 [facility] Comment on above: Order Comment: [facility] has implemented the eGFR calculation approach that does not have a coefficient for race that conforms to the NKF-ASN Task Force Recommendations. Performed By: #### 4 6953 #### LAB [address] [address] Les Malone M.D. [id number] Urea nitrogen/Creatinine [Mass ratio] 30.8 mg/mg High 10.0-20.0 [facility] Comment on above: Order Comment: [facility] has implemented the eGFR calculation approach that does not have a coefficient for race that conforms to the NKF-ASN Task Force Recommendations. Performed By: #### 4 6953 #### LAB [address] [address] Les Malone M.D. [id number] Anion gap [Moles/Vol] 14 mmol/L Normal 10-20 [facility] Comment on above: Order Comment: [facility] has implemented the eGFR calculation approach that does not have a coefficient for race that conforms to the NKF-ASN Task Force Recommendations. Performed By: #### 4 6953 #### LAB [address] [place], [place] [address] Les Malone M.D. [id number] Chloride [Moles/Vol] 102 mmol/L Normal 98-108 [facility] Comment on above: Order Comment: [facility] has implemented the eGFR calculation approach that does not have a coefficient for race that conforms to the NKF-ASN Task Force Recommendations. Performed By: #### 4 6953 #### LAB [address] [place], [place] [address] Les Malone M.D. [id number] Creatinine [Mass/Vol] 0.52 mg/dL Normal 0.50-1.30 [facility] Comment on above: Order Comment: [facility] has implemented the eGFR calculation approach that does not have a coefficient for race that conforms to the NKF-ASN Task Force Recommendations. Performed By: #### 4 6953 #### LAB [address] [address] Les Malone M.D. [id number] EGFR 127 mL/min/1.73 m2 Normal >=60 [facility] Comment on above: Order Comment: [facility] has implemented the eGFR calculation approach that does not have a coefficient for race that conforms to the NKF-ASN Task Force Recommendations. Result Comment: Fanta mated GFR was calculated using the 2020 CKD-EPI creatinine equation. Performed By: #### 4 6953 #### LAB [address] [address] Les Malone M.D. [id number] Glucose [Mass/Vol] 98 mg/dL Normal 65-99 [facility] Comment on above: Order Comment: [facility] has implemented the eGFR calculation approach that does not have a coefficient for race that conforms to the NKF-ASN Task Force Recommendations. Performed By: #### 4 6953 #### LAB [address] [place], [place] [address] Les Malone M.D. [id number] HCO3 (Bld) [Moles/Vol] 24 mmol/L Normal 21-32 [facility] Comment on above: Order Comment: [facility] has implemented the eGFR calculation approach that does not have a coefficient for race that conforms to the NKF-ASN Task Force Recommendations. Performed By: #### 4 6953 #### LAB [address] [place], [place] [address] Les Malone M.D. [id number] Potassium [Moles/Vol] 4.2 mmol/L Normal 3.5-5.1 [facility] Comment on above: Order Comment: [facility] has implemented the eGFR calculation approach that does not have a coefficient for race that conforms to the NKF-ASN Task Force Recommendations. Performed By: #### 4 6953 #### LAB [address] [address] Les Malone M.D. [id number] Sodium [Moles/Vol] 136 mmol/L Normal 135-145 [facility] Comment on above: Order Comment: [facility] has implemented the eGFR calculation approach that does not have a coefficient for race that conforms to the NKF-ASN Task Force Recommendations. Performed By: #### 4 6953 #### LAB [address] [address] Les Malone M.D. [id number] Urea nitrogen [Mass/Vol] 20 mg/dL Normal 8-25 [facility] Comment on above: Order Comment: [facility] has implemented the eGFR calculation approach that does not have a coefficient for race that conforms to the NKF-ASN Task Force Recommendations. Performed By: #### 4 6953 ####[facility] LAB [address] [address] Les Malone M.D. [id number] Urea nitrogen/Creatinine [Mass ratio] 38.5 mg/mg High 10.0-20.0 [facility] Comment on above: Order Comment: [facility] has implemented the eGFR calculation approach that does not have a coefficient for race that conforms to the NKF-ASN Task Force Recommendations. Performed By: #### 4 6953 ####[facility] LAB [address] [address] Les Malone M.D. [id number] ELECTROLYTES, URINEon 2023 CHLORIDE UR 164 mmol/L Normal [facility] Comment on above: Order Comment: No es tablished reference range. Performed By: #### 4 5532 ####[facility] LAB [address] [address] Les Malone M.D. [id number] POTASSIUM UR 20.4 mmol/L [facility] Comment on above: Order Comment: No es tablished reference range. Performed By: #### 4 5532 ####[facility] LAB [address] [address] Les Malone M.D. [id number] Sodium (U) [Moles/Vol] 182 mmol/L [facility] Comment on above: Order Comment: No es tablished reference range. Performed By: #### 4 5532 ####[facility] LAB [address] [address] Les Malone M.D. [id number] MAGNESIUM LEVELon 01-22-2024 Magnesium [Mass/Vol] 2.0 mg/dL Normal 1.6-2.4 [facility] Comment on above: Performed By: #### 4 6109 #### LAB [address] [address] Les Malone M.D. [id number] OP NOTEon 01-22-2024 OP NOTE Normal [facility] OSMOLALITYon 01-22-2024 Osmolality [Osmolality] 294 mosm/kg Normal 275-295 [facility] Comment on above: Performed By: #### 4 6230 #### LAB [address] [address] Les Malone M.D. [id number] OSMOLALITY, URINEon 01-22-20 24 OSMOLALITY URINE 521 mOsm/kg Normal [facility] Comment on above: Order Comment: No es tablished reference range. Performed By: #### 4 6233 ####[facility] LAB [address] [address] Les Malone M.D. [id number] PHOSPHORUSon 01-22-2024 Phosphate [Mass/Vol] 3.4 mg/dL Normal 2.7-4.5 [facility] Comment on above: Performed By: #### 4 6299 #### LAB [address] [address] Les Malone M.D. [id number] POC ABG SURG - RALSon 2023 BASE EXCESS, ARTERIAL ISTAT 1 Normal -2-2 [facility] Comment on above: Performed By: #### 4 8737 ####[facility] LAB [address] [address] Les Malone M.D. [id number] Glucose [Mass/Vol] 102 mg/dL High 65-99 [facility] Comment on above: Performed By: #### 4 8737 #### LAB [address] [address] Les Malone M.D. [id number] HCO3 (Bld) [Moles/Vol] 26.1 mmol/L High 22.0-26.0 [facility] Comment on above: Performed By: #### 4 8737 ####[facility] LAB [address] [address] Les Malone M.D. [id number] Hematocrit (Bld) [Volume fraction] 30 % Low 41-53 [facility] Comment on above: Performed By: #### 4 8737 #### LAB [address] [address] Les Malone M.D. [id number] Hemoglobin (Bld) [Mass/Vol] 10.2 g/dL Low 13.5-17.5 [facility] Comment on above: Performed By: #### 4 8737 #### LAB [address] [address] Les Malone M.D. [id number] Oxygen saturation in Blood 99.0 % Normal 92.0-99.0 [facility] Comment on above: Performed By: #### 4 8737 #### LAB [address] [address] Les Malone M.D. [id number] PCO2 ARTERIAL 40.6 mm Hg Normal 35.0-45.0 [facility] Comment on above: Performed By: #### 4 8737 #### LAB [address] [address] Les Malone M.D. [id number] PH ARTERIAL 7.42 Normal 7.35-7.45 [facility] Comment on above: Performed By: #### 4 8737 #### LAB [address] [address] Les Malone M.D. [id number] PO2 ARTERIAL 114 mm Hg High 80-100 [facility] Comment on above: Performed By: #### 4 8718 ####[facility] LAB [address] [address] Les Malone M.D. [id number] POC IONIZED CALCIUM 4.6 mg/dL Normal 4.5-5.3 [facility] Comment on above: Performed By: #### 4 8737 ####[facility] LAB [address] [address] Les Malone M.D. [id number] Potassium [Moles/Vol] 3.9 mmol/L Normal 3.5-5.1 [facility] Comment on above: Performed By: #### 4 8737 ####[facility] LAB [address] [address] Les Malone M.D. [id number] Sodium [Moles/Vol] 142 mmol/L Normal 135-145 [facility] Comment on above: Performed By: #### 4 8737 ####[facility] LAB [address] [address] Les Malone M.D. [id number] BASE EXCESS, ARTERIAL ISTAT -1 Normal -2-2 [facility] Comment on above: Performed By: #### 4 8737 ####[facility] [address] [address] Les Malone M.D. [id number] Glucose [Mass/Vol] 94 mg/dL Normal 65-99 [facility] Comment on above: Performed By: #### 4 8737 #### LAB [address] [address] Les Malone M.D. [id number] HCO3 (Bld) [Moles/Vol] 23.5 mmol/L Normal 22.0-26.0 [facility] Comment on above: Performed By: #### 4 8737 ####[facility] [address] [address] Les Malone M.D. [id number] Hematocrit (Bld) [Volume fraction] 26 % Low 41-53 [facility] Comment on above: Performed By: #### 4 8716 ####[facility] [address] [address] Les Malone M.D. [id number] Hemoglobin (Bld) [Mass/Vol] 8.8 g/dL Low 13.5-17.5 [facility] Comment on above: Performed By: #### 4 8737 #### LAB [address] [address] Les Malone M.D. [id number] Oxygen saturation in Blood 99.0 % Normal 92.0-99.0 [facility] Comment on above: Performed By: #### 4 8737 ####[facility] [address] [address] Les Malone M.D. [id number] PCO2 ARTERIAL 35.0 mm Hg Normal 35.0-45.0 [facility] Comment on above: Performed By: #### 4 8737 #### LAB [address] [address] Les Malone M.D. [id number] PH ARTERIAL 7.43 Normal 7.35-7.45 [facility] Comment on above: Performed By: #### 4 8737 ####[facility] [address] [address] Les Malone M.D. [id number] PO2 ARTERIAL 111 mm Hg High 80-100 [facility] Comment on above: Performed By: #### 4 8737 #### LAB [address] [address] Les Malone M.D. [id number] POC IONIZED CALCIUM 4.3 mg/dL Low 4.5-5.3 [facility] Comment on above: Performed By: #### 4 8737 #### LAB [address] [address] Les Malone M.D. [id number] Potassium [Moles/Vol] 3.3 mmol/L Low 3.5-5.1 [facility] Comment on above: Performed By: #### 4 8737 #### LAB [address] [address] Les Malone M.D. [id number] Sodium [Moles/Vol] 143 mmol/L Normal 135-145 [facility] Comment on above: Performed By: #### 4 8737 ####[facility] [address] [address] Les Malone M.D. [id number] BASE EXCESS, ARTERIAL ISTAT 0 Normal -2-2 [facility] Comment on above: Performed By: #### 4 8737 ####[facility] [address] [address] Les Malone M.D. [id number] Glucose [Mass/Vol] 106 mg/dL High 65-99 [facility] Comment on above: Performed By: #### 4 8737 ####[facility] [address] [address] Les Malone M.D. [id number] HCO3 (Bld) [Moles/Vol] 24.6 mmol/L Normal 22.0-26.0 [facility] Comment on above: Performed By: #### 4 8737 ####[facility] [address] [address] Les Malone M.D. [id number] Hematocrit (Bld) [Volume fraction] 30 % Low 41-53 [facility] Comment on above: Performed By: #### 4 8737 ####[facility] [address] [address] Les Malone M.D. [id number] Hemoglobin (Bld) [Mass/Vol] 10.2 g/dL Low 13.5-17.5 [facility] Comment on above: Performed By: #### 4 8737 ####[facility] [address] [address] Les Malone M.D. [id number] Oxygen saturation in Blood 98.0 % Normal 92.0-99.0 [facility] Comment on above: Performed By: #### 4 8737 ####[facility] [address] [address] Les Malone M.D. [id number] PCO2 ARTERIAL 38.6 mm Hg Normal 35.0-45.0 [facility] Comment on above: Performed By: #### 4 8737 ####[facility] [address] [address] Les Malone M.D. [id number] PH ARTERIAL 7.41 Normal 7.35-7.45 [facility] Comment on above: Performed By: #### 4 8737 ####[facility] [address] [address] Les Maolne M.D. [id number] PO2 ARTERIAL 99 mm Hg Normal 80-100 [facility] Comment on above: Performed By: #### 4 8737 ####[facility] [address] [address] Les Malone M.D. [id number] POC IONIZED CALCIUM 4.4 mg/dL Low 4.5-5.3 [facility] Comment on above: Performed By: #### 4 8737 ####[facility] [address] [address] Les Malone M.D. [id number] Potassium [Moles/Vol] 3.8 mmol/L Normal 3.5-5.1 [facility] Comment on above: Performed By: #### 4 8737 ####[facility] [address] [address] Les Malone M.D. [id number] Sodium [Moles/Vol] 141 mmol/L Normal 135-145 [facility] Comment on above: Performed By: #### 4 8737 ####[facility] [address] [address] Les Malone M.D. [id number] BASE EXCESS, ARTERIAL ISTAT 1 Normal -2-2 [facility] Comment on above: Performed By: #### 4 8737 ####[facility] [address]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 #### LAB [address] [address] Les Malone M.D. [id number] Oxygen saturation in Blood 99.3 % High 92.0-99.0 [facility] Comment on above: Performed By: #### 4 8716 #### LAB [address] [address] Les Malone M.D. [id number] PCO2 ARTERIAL 34.3 mm Hg Low 35.0-45.0 [facility] Comment on above: Performed By: #### 4 8716 #### LAB [address] [address] Les Malone M.D. [id number] PEEP RAD 5 [facility] Comment on above: Performed By: #### 4 8716 ####[facility] [address] [address] Les Malone M.D. [id number] PH ARTERIAL 7.46 High 7.35-7.45 [facility] Comment on above: Performed By: #### 4 8716 #### LAB [address] [address] Les Malone M.D. [id number] PO2 ARTERIAL 138 mm Hg High 80-100 [facility] Comment on above: Performed By: #### 4 8716 #### LAB [address] [address] Les Malone M.D. [id number] RESP RATE RAD 20 Normal [facility] Comment on above: Performed By: #### 4 8716 ####[facility] [address] [address] Les Malone M.D. [id number] SPECIMEN SOURCE RADIANCE Not specified [facility] Comment on above: Performed By: #### 4 8716 ####[facility] [address] [address] Les Malone M.D. [id number] TIDAL VOLUME RAD 480 Normal [facility] Comment on above: Performed By: #### 4 [id number] #### LAB [address] [address] Les Malone M.D. [id number] POC GLUCOSE [facility] 024 Glucose [Mass/Vol] 97 mg/dL Normal 65-99 [facility] Comment on above: Performed By: #### 4 6932 ####[facility] [address] [address] Les Malone M.D. [id number] Glucose [Mass/Vol] 98 mg/dL Normal 65-99 [facility] Comment on above: Performed By: #### 4 6932 ####[facility] [address] [address] Les Malone M.D. [id number] Glucose [Mass/Vol] 111 mg/dL High [address] Comment on above: Performed By: #### 4 6932 ####[facility] [address] [address] Les Malone M.D. [id number] Glucose [Mass/Vol] 91 mg/dL Normal [address] [place] [address] Comment on above: Performed By: #### 4 6932 ####[facility] [address] [address] Les Malone M.D. [id number] Glucose [Mass/Vol] 95 mg/dL Normal [address] [place] [address] Comment on above: Performed By: #### 4 6932 ####[facility] [address] [address] Les Malone M.D. [id number] Glucose [Mass/Vol] 97 mg/dL Normal [address] [place] [address] Comment on above: Performed By: #### 4 6932 #### LAB [address] [address] Les Malone M.D. [id number] Glucose [Mass/Vol] 100 mg/dL High [address] [place] [address] Comment on above: Performed By: #### 4 6932 #### LAB [address] [address] Les Malone M.D. [id number] POTASSIUM LEVELon 01-20-2024 Potassium [Moles/Vol] 4.1 mmol/L Normal 3.5-5.1 [facility] Comment on above: Performed By: #### 4 6351 #### LAB [address] [address] Les Malone M.D. [id number] TYPE AND SCREENon 01-20-2024 TYPE AND SCREEN ABORH: O Positive AB SCREEN: Negative EXPIRATION DATE: 01/23/2024 23:59 EST Normal [facility] CBCon 01-19-2024 AUTO NRBC 0.0 % [facility] Comment on above: Performed By: #### 4 [id number] ####[facility] [address] [address] Les Malone M.D. [id number] AUTO NRBC ABS COUNT 0.00 K/mcL Normal 0.00-0.00 [facility] Comment on above: Performed By: #### 4 [id number] #### LAB [address] [address] Les Malone M.D. [id number] Erythrocyte distribution width (RBC) [Ratio] 18.0 % High 11.6-14.8 [facility] Comment on above: Performed By: #### 4 [id number] #### LAB [address] [address] Les Malone M.D. [id number] Hematocrit (Bld) [Volume fraction] 24.2 % Low 41.0-53.0 [facility] Comment on above: Performed By: #### 4 [id number] #### LAB [address] [address] Les Malone M.D. [id number] Hemoglobin (Bld) [Mass/Vol] 7.5 g/dL Low 13.5-17.5 [facility] Comment on above: Performed By: #### 4 [id number] #### LAB [address] [address] Les Malone M.D. [id number] MCH (RBC) [Entitic mass] 29.3 pg Normal 26.0-34.0 [facility] Comment on above: Performed By: #### 4 [id number] #### LAB [address] [address] Les Malone M.D. [id number] MCV (RBC) [Entitic vol] 94.5 fL Normal 80.0-100.0 [facility] Comment on above: Performed By: #### 4 [id number] #### LAB [address] [address] Les Malone M.D. [id number] MEAN CORPUSCULAR HEMOGLOBIN CONC 31.0 g/dL Normal 31.0-37.0 [facility] Comment on above: Performed By: #### 4 [id number] #### LAB [address] [address] Les Malone M.D. [id number] Platelet mean volume (Bld) [Entitic vol] 11.2 fL Normal 9.4-12.4 [facility] Comment on above: Performed By: #### 4 [id number] #### LAB [address] [id number] Les Malone M.D. [id number] Platelets (Bld) [#/Vol] 431 10*3/uL High 150-400 [facility] Comment on above: Performed By: #### 4 5218 ####[facility] [address] [address] Les Malone M.D. [id number] RBC (Bld) [#/Vol] 2.56 10*6/uL Low 4.50-5.90 [facility] Comment on above: Performed By: #### 4 [id number] #### LAB [address] [id number] Les Malone M.D. [id number] WBC (Bld) [#/Vol] 7.98 10*3/uL Normal 4.50-11.00 [facility] Comment on above: Performed By: #### 4 5218 ####[facility] [address] [address] Les Malone M.D. [id number] CHEM 701-19-2024 Anion gap [Moles/Vol] 15 mmol/L Normal 10-20 [facility] Comment on above: Order Comment: [facility] has implemented the eGFR calculation approach that does not have a coefficient for race that conforms to the NKF-ASN Task Force Recommendations. Performed By: #### 4 6953 #### LAB [address] [place], [place] [address] Les Malone M.D. [id number] Chloride [Moles/Vol] 106 mmol/L Normal 98-108 [facility] [place] Comment on above: Order Comment: [facility] has implemented the eGFR calculation approach that does not have a coefficient for race that conforms to the NKF-ASN Task Force Recommendations. Performed By: #### 4 6953 #### LAB [address] [place], [place] [address] Les Malone M.D. [id number] Creatinine [Mass/Vol] 0.53 mg/dL Normal 0.50-1.30 [facility] Comment on above: Order Comment: [facility] has implemented the eGFR calculation approach that does not have a coefficient for race that conforms to the NKF-ASN Task Force Recommendations. Performed By: #### 4 6953 #### LAB [address] [address] Les Malone M.D. [id number] EGFR 126 mL/min/1.73 m2 Normal >=60 [facility] Comment on above: Order Comment: [facility] has implemented the eGFR calculation approach that does not have a coefficient for race that conforms to the NKF-ASN Task Force Recommendations. Result Comment: Fanta mated GFR was calculated using the 2020 CKD-EPI creatinine equation. Performed By: #### 4 6953 ####[facility] [address] [address] Les Malone M.D. [id number] Glucose [Mass/Vol] 85 mg/dL Normal 65-99 [facility] Comment on above: Order Comment: [facility] has implemented the eGFR calculation approach that does not have a coefficient for race that conforms to the NKF-ASN Task Force Recommendations. Performed By: #### 4 6953 #### LAB [address] [address] Les Malone M.D. [id number] HCO3 (Bld) [Moles/Vol] 22 mmol/L Normal 21-32 [facility] Comment on above: Order Comment: [facility] has implemented the eGFR calculation approach that does not have a coefficient for race that conforms to the NKF-ASN Task Force Recommendations. Performed By: #### 4 6953 ####[facility] [address] [address] Les Malone M.D. [id number] Potassium [Moles/Vol] 3.9 mmol/L Normal 3.5-5.1 [facility] Comment on above: Order Comment: [facility] has implemented the eGFR calculation approach that does not have a coefficient for race that conforms to the NKF-ASN Task Force Recommendations. Performed By: #### 4 6953 #### LAB [address] [place], [place] [address] Les Malone M.D. [id number] Sodium [Moles/Vol] 139 mmol/L Normal 135-145 [facility] Comment on above: Order Comment: [facility] has implemented the eGFR calculation approach that does not have a coefficient for race that conforms to the NKF-ASN Task Force Recommendations. Performed By: #### 4 6953 #### LAB [address] [place], [place] [address] Les Malone M.D. [id number] Urea nitrogen [Mass/Vol] 27 mg/dL High 8-25 [facility] Comment on above: Order Comment: [facility] has implemented the eGFR calculation approach that does not have a coefficient for race that conforms to the NKF-ASN Task Force Recommendations. Performed By: #### 4 6953 #### LAB [address] [place], [place] [address] Les Malone M.D. [id number] Urea nitrogen/Creatinine [Mass ratio] 50.9 mg/mg High 10.0-20.0 [facility] Comment on above: Order Comment: [facility] has implemented the eGFR calculation approach that does not have a coefficient for race that conforms to the NKF-ASN Task Force Recommendations. Performed By: #### 4 6953 #### LAB [address] [place], [place] [address] Les Malone M.D. [id number] CT CERVICAL SPINE WITHOUT CO NTRASTon 01-19-2024 CT CERVICAL SPINE WITHOUT CONTRAST Normal [facility] Comment on above: Order Comment: Injur y/Trauma or Illness?:Injury/TraumaHow long have you had these symptoms (acute/chronic)?:AcuteReason for exam?:f/u c-spine fxType of Exam?:Subsequent/Follow-upMechanism of injury?:. CT THORACIC SPINE WITHOUT CO NTRASTon 01-19-2024 CT THORACIC SPINE WITHOUT CONTRAST Normal [facility] Comment on above: Order Comment: Injur y/Trauma or Illness?:Injury/TraumaHow long have you had these symptoms (acute/chronic)?:AcuteReason for exam?:f/u t-spine fxType of Exam?:Subsequent/Follow-upMechanism of injury?:. MAGNESIUM LEVELon 01-19-2024 Magnesium [Mass/Vol] 2.2 mg/dL Normal 1.6-2.4 [facility] Comment on above: Performed By: #### 4 6109 ####[facility] [address] [address] Les Malone M.D. [id number] PHOSPHORUSon 01-19-2024 Phosphate [Mass/Vol] 3.4 mg/dL Normal 2.7-4.5 [facility] [place] Comment on above: Performed By: #### 4 6299 ####[facility] [address] [address] Les Malone M.D. [id number] POC ARTERIAL BLOOD GAS PANEL -[facility] 01-19-2024 [id number] 89.6 mm Hg Normal [facility] Comment on above: Performed By: #### 4 8716 ####[facility] [address] [address] Les Malone M.D. [id number] BASE EXCESS, ARTERIAL 1.9 Normal -2.0-2.0 [facility] Comment on above: Performed By: #### 4 8716 ####[facility] [address] [address] Les Malone M.D. [id number] FIO2 40 Normal [facility] Comment on above: Performed By: #### 4 [id number] #### LAB [address] [address] Les Malone M.D. [id number] HCO3 (Bld) [Moles/Vol] 25.0 mmol/L Normal 22.0-26.0 [facility] Comment on above: Performed By: #### 4 8716 ####[facility] [address] [address] Les Malone M.D. [id number] Hematocrit (Bld) [Volume fraction] 25.2 % Low 41.0-53.0 [facility] Comment on above: Performed By: #### 4 [id number] #### LAB [address] [address] Les Malone M.D. [id number] Hemoglobin (Bld) [Mass/Vol] 8.2 g/dL Low 13.5-17.5 [facility] Comment on above: Performed By: #### 4 8716 #### LAB [address] [address] Les Malone M.D. [id number] Oxygen saturation in Blood 99.6 % High 92.0-99.0 [facility] Comment on above: Performed By: #### 4 8716 #### LAB [address] [address] Les Malone M.D. [id number] PCO2 ARTERIAL 31.9 mm Hg Low 35.0-45.0 [facility] Comment on above: Performed By: #### 4 8716 #### LAB [address] [address] Les Malone M.D. [id number] PEEP RAD 5 [facility] Comment on above: Performed By: #### 4 8716 #### LAB [address] [address] Les Malone M.D. [id number] PH ARTERIAL 7.50 High 7.35-7.45 [facility] Comment on above: Performed By: #### 4 8716 #### LAB [address] [address] Les Malone M.D. [id number] PO2 ARTERIAL 148 mm Hg High 80-100 [facility] Comment on above: Performed By: #### 4 [id number] #### LAB [address] [address] Les Malone M.D. [id number] RESP RATE RAD 20 [facility] Comment on above: Performed By: #### 4 8716 #### LAB [address] [address] Les Malone M.D. [id number] SPECIMEN SOURCE RADIANCE Not specified [facility] Comment on above: Performed By: #### 4 [id number] #### LAB [address] [address] Les Malone M.D. [id number] TIDAL VOLUME RAD 480 [facility] Comment on above: Performed By: #### 4 [id number] #### LAB [address] [address] Les Malone M.D. [id number] POC GLUCOSE [facility] 024 Glucose [Mass/Vol] 98 mg/dL Normal [address] [place] [address] Comment on above: Performed By: #### 4 6932 #### LAB [address] [address] Les Malone M.D. [id number] Glucose [Mass/Vol] 98 mg/dL Normal [address] [place] [address] Comment on above: Performed By: #### 4 6932 #### LAB [address] [address] Les Malone M.D. [id number] Glucose [Mass/Vol] 83 mg/dL Normal [address] [place] [address] Comment on above: Performed By: #### 4 6932 #### LAB [address] [address] Les Malone M.D. [id number] Glucose [Mass/Vol] 93 mg/dL Normal [address] [place] [address] Comment on above: Performed By: #### 4 6932 #### LAB [address] [address] Les Malone M.D. [id number] XR ABDOMINAL TUBE CONTRAST I NJECTIONon 01-19-2024 XR ABDOMINAL TUBE CONTRAST INJECTION [facility] Comment on above: Order Comment: water soluable contrastInjury/Trauma or Illness?:Illness/OtherHow long have you had these symptoms (acute/chronic)?:AcuteReason for exam?:PEG tube evaluationHistory of cancer?:uSurgeries, chemotherapy, or radiation?:uType of Exam?:InitialAdditional signs and symptoms?:. CBCon 01-18-2024 AUTO NRBC 0.0 % Normal [facility] Comment on above: Performed By: #### 4 [id number] #### LAB [address] [address] Les Malone M.D. [id number] AUTO NRBC ABS COUNT 0.00 K/mcL Normal 0.00-0.00 [facility] Comment on above: Performed By: #### 4 [id number] ####[facility] [address] [address] Les Malone M.D. [id number] Erythrocyte distribution width (RBC) [Ratio] 18.4 % High 11.6-14.8 [facility] Comment on above: Performed By: #### 4 [id number] #### LAB [address] [address] Les Malone M.D. [id number] Hematocrit (Bld) [Volume fraction] 25.4 % Low 41.0-53.0 [facility] Comment on above: Performed By: #### 4 [id number] #### LAB [address] [address] Les Malone M.D. [id number] Hemoglobin (Bld) [Mass/Vol] 7.8 g/dL Low 13.5-17.5 [facility] Comment on above: Performed By: #### 4 5218 #### LAB [address] [address] Les Malone M.D. [id number] MCH (RBC) [Entitic mass] 29.2 pg Normal 26.0-34.0 [facility] Comment on above: Performed By: #### 4 5218 #### LAB [address] [address] Les Malone M.D. [id number] MCV (RBC) [Entitic vol] 95.1 fL Normal 80.0-100.0 [facility] Comment on above: Performed By: #### 4 5218 #### LAB [address] [address] Les Malone M.D. [id number] MEAN CORPUSCULAR HEMOGLOBIN CONC 30.7 g/dL Low 31.0-37.0 [facility] Comment on above: Performed By: #### 4 5218 #### LAB [address] [address] Les Malone M.D. [id number] Platelet mean volume (Bld) [Entitic vol] 11.5 fL Normal 9.4-12.4 [facility] Comment on above: Performed By: #### 4 5218 #### LAB [address] [address] Les Malone M.D. [id number] Platelets (Bld) [#/Vol] 395 10*3/uL Normal 150-400 [facility] Comment on above: Performed By: #### 4 5218 #### LAB [address] [address] Les Malone M.D. [id number] RBC (Bld) [#/Vol] 2.67 10*6/uL Low 4.50-5.90 [facility] Comment on above: Performed By: #### 4 5218 #### LAB [address] [address] Les Malone M.D. [id number] WBC (Bld) [#/Vol] 11.18 10*3/uL High 4.50-11.00 [facility] Comment on above: Performed By: #### 4 5218 ####[facility] [address] [address] Les Malone M.D. [id number] CHEM 701-18-2024 Anion gap [Moles/Vol] 16 mmol/L Normal 10-20 [facility] Comment on above: Order Comment: [facility] has implemented the eGFR calculation approach that does not have a coefficient for race that conforms to the NKF-ASN Task Force Recommendations. Performed By: #### 4 6953 #### LAB [address] [address] Les Malone M.D. [id number] Chloride [Moles/Vol] 106 mmol/L Normal 98-108 [facility] Comment on above: Order Comment: [facility] has implemented the eGFR calculation approach that does not have a coefficient for race that conforms to the NKF-ASN Task Force Recommendations. Performed By: #### 4 6953 #### LAB [address] [address] Les Malone M.D. [id number] Creatinine [Mass/Vol] 0.56 mg/dL Normal 0.50-1.30 [facility] Comment on above: Order Comment: [facility] has implemented the eGFR calculation approach that does not have a coefficient for race that conforms to the NKF-ASN Task Force Recommendations. Performed By: #### 4 6953 #### LAB [address] [address] Les Malone M.D. [id number] EGFR 124 mL/min/1.73 m2 Normal >=60 [facility] Comment on above: Order Comment: [facility] has implemented the eGFR calculation approach that does not have a coefficient for race that conforms to the NKF-ASN Task Force Recommendations. Result Comment: Fanta mated GFR was calculated using the 2020 CKD-EPI creatinine equation. Performed By: #### 4 6953 ####[facility] [address] [address] Les Malone M.D. [id number] Glucose [Mass/Vol] 108 mg/dL High 65-99 [facility] Comment on above: Order Comment: [facility] has implemented the eGFR calculation approach that does not have a coefficient for race that conforms to the NKF-ASN Task Force Recommendations. Performed By: #### 4 6953 #### LAB [address] [address] Les Malone M.D. [id number] HCO3 (Bld) [Moles/Vol] 21 mmol/L Normal 21-32 [facility] Comment on above: Order Comment: [facility] has implemented the eGFR calculation approach that does not have a coefficient for race that conforms to the NKF-ASN Task Force Recommendations. Performed By: #### 4 6953 #### LAB [address] [place], [place] [address] Les Malone M.D. [id number] Potassium [Moles/Vol] 4.0 mmol/L Normal 3.5-5.1 [facility] Comment on above: Order Comment: [facility] has implemented the eGFR calculation approach that does not have a coefficient for race that conforms to the NKF-ASN Task Force Recommendations. Performed By: #### 4 6953 #### LAB [address] [place], [place] [address] Les Malone M.D. [id number] Sodium [Moles/Vol] 139 mmol/L Normal 135-145 [facility] Comment on above: Order Comment: [facility] has implemented the eGFR calculation approach that does not have a coefficient for race that conforms to the NKF-ASN Task Force Recommendations. Performed By: #### 4 6953 #### LAB [address] [address] Les Malone M.D. [id number] Urea nitrogen [Mass/Vol] 33 mg/dL High 8-25 [facility] Comment on above: Order Comment: [facility] has implemented the eGFR calculation approach that does not have a coefficient for race that conforms to the NKF-ASN Task Force Recommendations. Performed By: #### 4 6953 ####[facility] [address] [place], [place] [address] Les Malone M.D. [id number] Urea nitrogen/Creatinine [Mass ratio] 58.9 mg/mg High 10.0-20.0 [facility] Comment on above: Order Comment: [facility] has implemented the eGFR calculation approach that does not have a coefficient for race that conforms to the NKF-ASN Task Force Recommendations. Performed By: #### 4 6953 #### LAB [address] [address] Les Malone M.D. [id number] MAGNESIUM LEVELon 01-18-2024 Magnesium [Mass/Vol] 2.2 mg/dL Normal 1.6-2.4 [facility] Comment on above: Performed By: #### 4 6109 ####[facility] [address] [address] Les Malone M.D. [id number] PHOSPHORUSon 01-18-2024 Phosphate [Mass/Vol] 3.9 mg/dL Normal 2.7-4.5 [facility] Comment on above: Performed By: #### 4 6299 ####[facility] [address] [address] Les Malone M.D. [id number] Phosphate [Mass/Vol] 4.0 mg/dL Normal 2.7-4.5 [facility] Comment on above: Performed By: #### 4 6299 #### LAB [address] [address] Les Malone M.D. [id number] POC ARTERIAL BLOOD GAS PANEL -[facility] 01-18-2024 [id number] 135.3 mm Hg Normal [facility] Comment on above: Performed By: #### 4 8716 ####[facility] [address] [address] Les Malone M.D. [id number] BASE EXCESS, ARTERIAL 0.8 Normal -2.0-2.0 [facility] Comment on above: Performed By: #### 4 8716 ####[facility] [address] [address] Les Malone M.D. [id number] FIO2 40 Normal [facility] Comment on above: Performed By: #### 4 8716 ####[facility] [address] [address] Les Malone M.D. [id number] HCO3 (Bld) [Moles/Vol] 23.5 mmol/L Normal 22.0-26.0 [facility] Comment on above: Performed By: #### 4 [id number] #### LAB [address] [address] Les Malone M.D. [id number] Hematocrit (Bld) [Volume fraction] 26.2 % Low 41.0-53.0 [facility] Comment on above: Performed By: #### 4 8716 #### LAB [address] [address] Les Malone M.D. [id number] Hemoglobin (Bld) [Mass/Vol] 8.5 g/dL Low 13.5-17.5 [facility] Comment on above: Performed By: #### 4 8716 #### LAB [address] [address] Les Malone M.D. [id number] Oxygen saturation in Blood 99.2 % High 92.0-99.0 [facility] Comment on above: Performed By: #### 4 8716 #### LAB [address] [address] Les Malone M.D. [id number] PCO2 ARTERIAL 29.6 mm Hg Low 35.0-45.0 [facility] Comment on above: Performed By: #### 4 8716 ####[facility] [address] [address] Les Malone M.D. [id number] PEEP RAD 5 Normal [facility] Comment on above: Performed By: #### 4 8716 ####[facility] [address] [address] Les Malone M.D. [id number] PH ARTERIAL 7.51 High 7.35-7.45 [facility] Comment on above: Performed By: #### 4 8716 ####[facility] [address] [address] Les Malone M.D. [id number] PO2 ARTERIAL 105 mm Hg High 80-100 [facility] Comment on above: Performed By: #### 4 8716 ####[facility] [address] [address] Les Malone M.D. [id number] RESP RATE RAD 22 [facility] Comment on above: Performed By: #### 4 8716 #### LAB [address] [id number] Les Malone M.D. [id number] SPECIMEN SOURCE RADIANCE Not specified [facility] Comment on above: Performed By: #### 4 8716 ####[facility] [address] [address] Les Malone M.D. [id number] TIDAL VOLUME RAD 480 [facility] Comment on above: Performed By: #### 4 8716 ####[facility] [address] [address] Les Malone M.D. [id number] POC GLUCOSE [facility] 024 Glucose [Mass/Vol] 95 mg/dL Normal [address] [place] [address] Comment on above: Performed By: #### 4 6932 ####[facility] [address] [address] Les Malone M.D. [id number] Glucose [Mass/Vol] 96 mg/dL Normal [address] [place] [address] Comment on above: Performed By: #### 4 6932 #### LAB [address] [address] Les Malone M.D. [id number] Glucose [Mass/Vol] 93 mg/dL Normal [address] [place] [address] Comment on above: Performed By: #### 4 6932 #### LAB [address] [address] Les Malone M.D. [id number] Glucose [Mass/Vol] 100 mg/dL High [address] [place] [address] Comment on above: Performed By: #### 4 6932 ####[facility] [address] [address] Les Malone M.D. [id number] Glucose [Mass/Vol] 103 mg/dL High [address] [place] [address] Comment on above: Performed By: #### 4 6932 #### LAB [address] [address] Les Malone M.D. [id number] Glucose [Mass/Vol] 117 mg/dL High [address] [place] [address] Comment on above: Performed By: #### 4 6932 ####[facility] [address] [address] Les Malone M.D. [id number] Glucose [Mass/Vol] 105 mg/dL High [facility] Comment on above: Performed By: #### 4 6932 #### LAB [address] [address] Les Malone M.D. [id number] POTASSIUM LEVELon 01-18-2024 Potassium [Moles/Vol] 3.8 mmol/L Normal 3.5-5.1 [facility] Comment on above: Performed By: #### 4 6351 #### LAB [address] [address] Les Malone M.D. [id number] CALCIUM, IONIZEDon CALCIUM IONIZED 4.4 mg/dL Low 4.5-5.3 [facility] Comment on above: Performed By: #### 4 5190 #### LAB [address] [address] Les Malone M.D. [id number] CBCon 01-17-2024 AUTO NRBC 0.0 % Normal [facility] Comment on above: Performed By: #### 4 [id number] #### LAB [address] [address] Les Malone M.D. [id number] AUTO NRBC ABS COUNT 0.00 K/mcL Normal 0.00-0.00 [facility] Comment on above: Performed By: #### 4 [id number] #### LAB [address] [address] Les Malone M.D. [id number] Erythrocyte distribution width (RBC) [Ratio] 18.9 % High 11.6-14.8 [facility] Comment on above: Performed By: #### 4 5218 #### LAB [address] [address] Les Malone M.D. [id number] Hematocrit (Bld) [Volume fraction] 24.0 % Low 41.0-53.0 [facility] Comment on above: Performed By: #### 4 5218 #### LAB [address] [address] Les Malone M.D. [id number] Hemoglobin (Bld) [Mass/Vol] 7.4 g/dL Low 13.5-17.5 [facility] Comment on above: Performed By: #### 4 5218 #### LAB [address] [address] Les Malone M.D. [id number] MCH (RBC) [Entitic mass] 29.6 pg Normal 26.0-34.0 [facility] Comment on above: Performed By: #### 4 5218 #### LAB [address] [address] Les Malone M.D. [id number] MCV (RBC) [Entitic vol] 96.0 fL Normal 80.0-100.0 [facility] Comment on above: Performed By: #### 4 5218 #### LAB [address] [address] Les Malone M.D. [id number] MEAN CORPUSCULAR HEMOGLOBIN CONC 30.8 g/dL Low 31.0-37.0 [facility] Comment on above: Performed By: #### 4 5218 #### LAB [address] [address] Les Malone M.D. [id number] Platelet mean volume (Bld) [Entitic vol] 11.2 fL Normal 9.4-12.4 [facility] Comment on above: Performed By: #### 4 5218 #### LAB [address] [address] Les Malone M.D. [id number] Platelets (Bld) [#/Vol] 384 10*3/uL Normal 150-400 [facility] Comment on above: Performed By: #### 4 5218 #### LAB [address] [place], [place] [address] Les Malone M.D. [id number] RBC (Bld) [#/Vol] 2.50 10*6/uL Low 4.50-5.90 [facility] Comment on above: Performed By: #### 4 5218 #### LAB [address] [place], [place] [address] Les Malone M.D. [id number] WBC (Bld) [#/Vol] 13.95 10*3/uL High 4.50-11.00 [facility] Comment on above: Performed By: #### 4 5218 #### LAB [address] [place], [place] [address] Les Malone M.D. [id number] CHEM 01-17-2024 Anion gap [Moles/Vol] 14 mmol/L Normal 10-20 [facility] [facility] Comment on above: Order Comment: [facility] has implemented the eGFR calculation approach that does not have a coefficient for race that conforms to the NKF-ASN Task Force Recommendations. Performed By: #### 4 6953 #### LAB [address] [place], [place] [address] Les Malone M.D. [id number] Chloride [Moles/Vol] 107 mmol/L Normal 98-108 [facility] [place] Comment on above: Order Comment: [facility] has implemented the eGFR calculation approach that does not have a coefficient for race that conforms to the NKF-ASN Task Force Recommendations. Performed By: #### 4 6953 #### LAB [address] [place], [place] [address] Les Malone M.D. [id number] Creatinine [Mass/Vol] 0.64 mg/dL Normal 0.50-1.30 [facility] Comment on above: Order Comment: [facility] has implemented the eGFR calculation approach that does not have a coefficient for race that conforms to the NKF-ASN Task Force Recommendations. Performed By: #### 4 6953 #### LAB [address] [place] [address] Les Malone M.D. [id number] EGFR 119 mL/min/1.73 m2 Normal >=60 [facility] Comment on above: Order Comment: [facility] has implemented the eGFR calculation approach that does not have a coefficient for race that conforms to the NKF-ASN Task Force Recommendations. Result Comment: Fanta mated GFR was calculated using the 2020 CKD-EPI creatinine equation. Performed By: #### 4 6953 #### LAB [address] [place] [address] Les Malone M.D. [id number] Glucose [Mass/Vol] 125 mg/dL High 65-99 [facility] Comment on above: Order Comment: [facility] has implemented the eGFR calculation approach that does not have a coefficient for race that conforms to the NKF-ASN Task Force Recommendations. Performed By: #### 4 6953 #### LAB [address] [place] [address] Les Malone M.D. [id number] HCO3 (Bld) [Moles/Vol] 20 mmol/L Low 21-32 [facility] Comment on above: Order Comment: [facility] has implemented the eGFR calculation approach that does not have a coefficient for race that conforms to the NKF-ASN Task Force Recommendations. Performed By: #### 4 6953 #### LAB [address] [place] [address] Les Malone M.D. [id number] Potassium [Moles/Vol] 4.0 mmol/L Normal 3.5-5.1 [facility] Comment on above: Order Comment: [facility] has implemented the eGFR calculation approach that does not have a coefficient for race that conforms to the NKF-ASN Task Force Recommendations. Performed By: #### 4 6953 #### LAB [address] [place] [address] Les Malone M.D. [id number] Sodium [Moles/Vol] 137 mmol/L Normal 135-145 [facility] Comment on above: Order Comment: [facility] has implemented the eGFR calculation approach that does not have a coefficient for race that conforms to the NKF-ASN Task Force Recommendations. Performed By: #### 4 6953 #### LAB [address] [place] [address] Les Malone M.D. [id number] Urea nitrogen [Mass/Vol] 38 mg/dL High 8-25 [facility] Comment on above: Order Comment: [facility] has implemented the eGFR calculation approach that does not have a coefficient for race that conforms to the NKF-ASN Task Force Recommendations. Performed By: #### 4 6953 #### LAB [address] [place] [address] Les Malone M.D. [id number] Urea nitrogen/Creatinine [Mass ratio] 59.4 mg/mg High 10.0-20.0 [facility] Comment on above: Order Comment: [facility] has implemented the eGFR calculation approach that does not have a coefficient for race that conforms to the NKF-ASN Task Force Recommendations. Performed By: #### 4 6953 #### LAB [address] [place] [address] Les Malone M.D. [id number] CT CHEST ABDOMEN PELVIS WITH IV CONTRAST ONLYon 01-17-2024 CT CHEST ABDOMEN PELVIS WITH IV CONTRAST ONLY Normal [facility] Comment on above: Order Comment: Injur y/Trauma or Illness?:Illness/OtherHow long have you had these symptoms (acute/chronic)?:AcuteReason for exam?:Sepsis. Dr Hedrick verified IJ placement for CT injectionType of Exam?:InitialAdditional signs and symptoms?:pt unable to raise arms over head for scan. on vent MAGNESIUM LEVELon 01-17-2024 Magnesium [Mass/Vol] 2.1 mg/dL Normal 1.6-2.4 [facility] [place] Comment on above: Performed By: #### 4 6109 #### LAB [address] [place] [address] Les Malone M.D. [id number] PHOSPHORUSon 01-17-2024 Phosphate [Mass/Vol] 2.5 mg/dL Low 2.7-4.5 [facility] [place] Comment on above: Performed By: #### 4 6299 ####[facility] LAB [address] [place] [address] Les Malone M.D. [id number] POC ARTERIAL BLOOD GAS PANEL -[facility] 01-17-2024 [id number] 148.6 mm Hg Normal [facility] Comment on above: Performed By: #### 4 8716 ####[facility] LAB [address] [place] [address] Les Malone M.D. [id number] BASE EXCESS, ARTERIAL -0.2 Normal -2.0-2.0 [facility] Comment on above: Performed By: #### 4 8716 ####[facility] LAB [address] [place] [address] Les Malone M.D. [id number] FIO2 40 Normal [facility] Comment on above: Performed By: #### 4 8716 ####[facility] LAB [address] [place] [address] Les Malone M.D. [id number] HCO3 (Bld) [Moles/Vol] 22.4 mmol/L Normal 22.0-26.0 [facility] Comment on above: Performed By: #### 4 8716 #### LAB [address] [place] [address] Les Malone M.D. [id number] Hematocrit (Bld) [Volume fraction] 27.7 % Low 41.0-53.0 [facility] Comment on above: Performed By: #### 4 8716 #### LAB [address] [place] [address] Les Malone M.D. [id number] Hemoglobin (Bld) [Mass/Vol] 9.0 g/dL Low 13.5-17.5 [facility] Comment on above: Performed By: #### 4 8716 ####[facility] LAB [address] [place] [address] Les Malone M.D. [id number] Oxygen saturation in Blood 98.3 % Normal 92.0-99.0 [facility] Comment on above: Performed By: #### 4 8716 ####[facility] LAB [address] [place] [address] Les Malone M.D. [id number] PCO2 ARTERIAL 28.6 mm Hg Low 35.0-45.0 [facility] Comment on above: Performed By: #### 4 8716 ####[facility] LAB [address] [place] [id number] Les Malone M.D. [id number] PEEP RAD 5 [facility] Comment on above: Performed By: #### 4 8716 ####[facility] LAB [address] [place] [address] Les Malone M.D. [id number] PH ARTERIAL 7.50 High 7.35-7.45 [facility] Comment on above: Performed By: #### 4 8716 ####[facility] LAB [address] [place] [address] Les Malone M.D. [id number] PO2 ARTERIAL 92 mm Hg Normal 80-100 [facility] Comment on above: Performed By: #### 4 8716 ####[facility] LAB [address] [place] [id number] Les Malone M.D. [id number] RESP RATE RAD 22 Normal [facility] Comment on above: Performed By: #### 4 8716 ####[facility] LAB [address] [place] [address] Les Malone M.D. [id number] SPECIMEN SOURCE RADIANCE Not specified [facility] Comment on above: Performed By: #### 4 8716 #### LAB [address] [place] [id number] Les Malone M.D. [id number] TIDAL VOLUME RAD 480 Normal [facility] Comment on above: Performed By: #### 4 8716 ####[facility] LAB [address] [place] [address] Les Malone M.D. [id number] POC GLUCOSE - [facility] 024 Glucose [Mass/Vol] 117 mg/dL High [address] [place] [address] Comment on above: Performed By: #### 4 6932 ####[facility] LAB [address] [place] [address] Les Malone M.D. [id number] Glucose [Mass/Vol] 112 mg/dL High [address] [place] [address] Comment on above: Performed By: #### 4 6932 ####[facility] LAB [address] [place] [address] Les Malone M.D. [id number] Glucose [Mass/Vol] 126 mg/dL [address] Comment on above: Performed By: #### 4 6932 #### LAB [address] [place] [address] Les Malone M.D. [id number] SPUTUM AEROBIC CULTUREon SPUTUM AEROBIC CULTURE RESPIRATORY CULTURE Normal Wally after 48 hrs GRAM STAIN RESULT Many WBC Few Epithelial Cells Few Gram Positive Cocci [facility] Comment on above: Performed By: #### 4 4046 ####[facility] [address] [place] [address] Yonny Toro M.D. [id number] XR ABDOMEN /KUB/FLAT PLATE/1 VIEWon 01-17-2024 XR ABDOMEN /KUB/FLAT PLATE/1 VIEW [facility] Comment on above: Order Comment: Injur y/Trauma or Illness?:Illness/OtherHow long have you had these symptoms (acute/chronic)?:AcuteReason for exam?:NG/OT placementHistory of cancer?:uSurgeries, chemotherapy, or radiation?:uType of Exam?:InitialAdditional signs and symptoms?:. XR CHEST PA/APon 01-17-2024 XR CHEST PA/AP [facility] Comment on above: Order Comment: Injur y/Trauma or Illness?:Illness/OtherHow long have you had these symptoms (acute/chronic)?:AcuteReason for exam?:sobHistory of cancer?:uSurgeries, chemotherapy, or radiation?:uType of Exam?:InitialAdditional signs and symptoms?:. CBCon 01-16-2024 AUTO NRBC 0.0 % Normal [facility] Comment on above: Performed By: #### 4 [id number] #### LAB [address] [place] [address] Les Malone M.D. [id number] AUTO NRBC ABS COUNT 0.00 K/mcL Normal 0.00-0.00 [facility] Comment on above: Performed By: #### 4 [id number] #### LAB [address] [place] [address] Les Malone M.D. [id number] Erythrocyte distribution width (RBC) [Ratio] 19.7 % High 11.6-14.8 [facility] Comment on above: Performed By: #### 4 5218 #### LAB [address] [place] [address] Les Malone M.D. [id number] Hematocrit (Bld) [Volume fraction] 25.1 % Low 41.0-53.0 [facility] Comment on above: Performed By: #### 4 5218 #### LAB [address] [place] [address] Les Malone M.D. [id number] Hemoglobin (Bld) [Mass/Vol] 7.7 g/dL Low 13.5-17.5 [facility] Comment on above: Performed By: #### 4 5218 #### LAB [address] [place] [address] Les Malone M.D. [id number] MCH (RBC) [Entitic mass] 29.8 pg Normal 26.0-34.0 [facility] Comment on above: Performed By: #### 4 5269 #### LAB [address] [place] [address] Les Malone M.D. [id number] MCV (RBC) [Entitic vol] 97.3 fL Normal 80.0-100.0 [facility] Comment on above: Performed By: #### 4 5482 ####[facility] LAB [address] [place] [address] Les Malone M.D. [id number] MEAN CORPUSCULAR HEMOGLOBIN CONC 30.7 g/dL Low 31.0-37.0 [facility] Comment on above: Performed By: #### 4 [id number] #### LAB [address] [place] [address] Les Malone M.D. [id number] Platelet mean volume (Bld) [Entitic vol] 10.9 fL Normal 9.4-12.4 [facility] Comment on above: Performed By: #### 4 5218 #### LAB [address] [place] [address] Les Malone M.D. [id number] Platelets (Bld) [#/Vol] 399 10*3/uL Normal 150-400 [facility] Comment on above: Performed By: #### 4 5218 #### LAB [address] [place] [address] Les Malone M.D. [id number] RBC (Bld) [#/Vol] 2.58 10*6/uL Low 4.50-5.90 [facility] Comment on above: Performed By: #### 4 5218 #### LAB [address] [place] [address] Les Malone M.D. [id number] WBC (Bld) [#/Vol] 13.79 10*3/uL High 4.50-11.00 [facility] Comment on above: Performed By: #### 4 5218 #### LAB [address] [place] [address] Les Malone M.D. [id number] CHEM 01-16-2024 Anion gap [Moles/Vol] 14 mmol/L Normal 10-20 [facility] Comment on above: Order Comment: [facility] has implemented the eGFR calculation approach that does not have a coefficient for race that conforms to the NKF-ASN Task Force Recommendations. Performed By: #### 4 6953 #### LAB [address] [place] [address] Les Malone M.D. [id number] Chloride [Moles/Vol] 109 mmol/L High 98-108 [facility] Comment on above: Order Comment: [facility] has implemented the eGFR calculation approach that does not have a coefficient for race that conforms to the NKF-ASN Task Force Recommendations. Performed By: #### 4 6953 ####[facility] LAB [address] [place] [address] Les Malone M.D. [id number] Creatinine [Mass/Vol] 0.60 mg/dL Normal 0.50-1.30 [facility] Comment on above: Order Comment: [facility] has implemented the eGFR calculation approach that does not have a coefficient for race that conforms to the NKF-ASN Task Force Recommendations. Performed By: #### 4 6953 ####[facility] LAB [address] [place] [address] Les Malone M.D. [id number] EGFR 121 mL/min/1.73 m2 Normal >=60 [facility] Comment on above: Order Comment: [facility] has implemented the eGFR calculation approach that does not have a coefficient for race that conforms to the NKF-ASN Task Force Recommendations. Result Comment: Fanta mated GFR was calculated using the 2020 CKD-EPI creatinine equation. Performed By: #### 4 6953 ####[facility] LAB [address] [place] [address] Les Malone M.D. [id number] Glucose [Mass/Vol] 117 mg/dL High 65-99 [facility] Comment on above: Order Comment: [facility] has implemented the eGFR calculation approach that does not have a coefficient for race that conforms to the NKF-ASN Task Force Recommendations. Performed By: #### 4 6953 ####[facility] LAB [address] [place] [address] Les Malone M.D. [id number] HCO3 (Bld) [Moles/Vol] 21 mmol/L Normal 21-32 [facility] Comment on above: Order Comment: [facility] has implemented the eGFR calculation approach that does not have a coefficient for race that conforms to the NKF-ASN Task Force Recommendations. Performed By: #### 4 6953 #### LAB [address] [place], [place] [address] Les Malone M.D. [id number] Potassium [Moles/Vol] 3.9 mmol/L Normal 3.5-5.1 [facility] Comment on above: Order Comment: [facility] has implemented the eGFR calculation approach that does not have a coefficient for race that conforms to the NKF-ASN Task Force Recommendations. Performed By: #### 4 6953 #### LAB [address] [place] [address] Les Malone M.D. [id number] Sodium [Moles/Vol] 140 mmol/L Normal 135-145 [facility] Comment on above: Order Comment: [facility] has implemented the eGFR calculation approach that does not have a coefficient for race that conforms to the NKF-ASN Task Force Recommendations. Performed By: #### 4 6953 #### LAB [address] [place] [address] Les Malone M.D. [id number] Urea nitrogen [Mass/Vol] 33 mg/dL High 8-25 [facility] Comment on above: Order Comment: [facility] has implemented the eGFR calculation approach that does not have a coefficient for race that conforms to the NKF-ASN Task Force Recommendations. Performed By: #### 4 6953 #### LAB [address] [place] [address] Les Malone M.D. [id number] Urea nitrogen/Creatinine [Mass ratio] 55.0 mg/mg High 10.0-20.0 [facility] Comment on above: Order Comment: [facility] has implemented the eGFR calculation approach that does not have a coefficient for race that conforms to the NKF-ASN Task Force Recommendations. Performed By: #### 4 6953 #### LAB [address] [place] [address] Les Malone M.D. [id number] MAGNESIUM LEVELon 01-16-2024 Magnesium [Mass/Vol] 2.2 mg/dL Normal 1.6-2.4 [facility] Comment on above: Performed By: #### 4 6109 #### LAB [address] [place] [address] Les Malone M.D. [id number] PHOSPHORUSon 01-16-2024 Phosphate [Mass/Vol] 2.9 mg/dL Normal 2.7-4.5 [facility] Comment on above: Performed By: #### 4 6299 ####[facility] LAB [address] [place] [address] Les Malone M.D. [id number] POC ARTERIAL BLOOD GAS PANEL -[facility] 01-16-2024 [id number] 96.5 mm Hg Normal [facility] Comment on above: Performed By: #### 4 8716 ####[facility] LAB [address] [place] [address] Les Malone M.D. [id number] BASE EXCESS, ARTERIAL 0.6 Normal -2.0-2.0 [facility] Comment on above: Performed By: #### 4 8716 ####[facility] LAB [address] [place] [address] Les Malone M.D. [id number] FIO2 40 Normal [facility] Comment on above: Performed By: #### 4 8716 ####[facility] LAB [address] [place] [address] Les Malone M.D. [id number] HCO3 (Bld) [Moles/Vol] 23.8 mmol/L Normal 22.0-26.0 [facility] Comment on above: Performed By: #### 4 8716 ####[facility] LAB [address] [place] [address] Les Malone M.D. [id number] Hematocrit (Bld) [Volume fraction] 24.2 % Low 41.0-53.0 [facility] Comment on above: Performed By: #### 4 8716 #### LAB [address] [place] [address] Les Malone M.D. [id number] Hemoglobin (Bld) [Mass/Vol] 7.9 g/dL Low 13.5-17.5 [facility] Comment on above: Performed By: #### 4 8716 #### LAB [address] [place] [address] Les Malone M.D. [id number] O2 SATURATION ARTERIAL > High 92.0-99.0 [facility] Comment on above: Performed By: #### 4 8716 #### LAB [address] [place] [address] Les Malone M.D. [id number] PCO2 ARTERIAL 31.5 mm Hg Low 35.0-45.0 [facility] Comment on above: Performed By: #### 4 8716 #### LAB [address] [place] [address] Les Malone M.D. [id number] PEEP RAD 5 [facility] Comment on above: Performed By: #### 4 8716 #### LAB [address] [place] [address] Les Malone M.D. [id number] PH ARTERIAL 7.49 High 7.35-7.45 [facility] Comment on above: Performed By: #### 4 8716 #### LAB [address] [place] [address] Les Malone M.D. [id number] PO2 ARTERIAL 141 mm Hg High 80-100 [facility] Comment on above: Performed By: #### 4 8716 #### LAB [address] [place] [address] Les Malone M.D. [id number] RESP RATE RAD 22 [facility] Comment on above: Performed By: #### 4 8716 #### LAB [address] [place] [address] Les Malone M.D. [id number] SPECIMEN SOURCE RADIANCE Not specified [facility] Comment on above: Performed By: #### 4 8716 #### LAB [address] [place] [address] Les Malone M.D. [id number] TIDAL VOLUME RAD 480 Normal [facility] Comment on above: Performed By: #### 4 8716 #### LAB [address] [place] [address] Les Malone M.D. [id number] POC GLUCOSE [facility] 024 Glucose [Mass/Vol] 133 mg/dL [address] Comment on above: Performed By: #### 4 6932 ####[facility] LAB [address] [place] [address] Les Malone M.D. [id number] Glucose [Mass/Vol] 136 mg/dL [address] Comment on above: Performed By: #### 4 6932 #### LAB [address] [place] [address] Les Malone M.D. [id number] Glucose [Mass/Vol] 118 mg/dL [address] Comment on above: Performed By: #### 4 6932 #### LAB [address] [place] [address] Les Malone M.D. [id number] Glucose [Mass/Vol] 120 mg/dL [address] Comment on above: Performed By: #### 4 6932 #### LAB [address] [place] [address] Les Malone M.D. [id number] Glucose [Mass/Vol] 145 mg/dL [address] Comment on above: Performed By: #### 4 4541 #### LAB [address] [place] [address] Les Malone M.D. [id number] Glucose [Mass/Vol] 131 mg/dL [address] Comment on above: Performed By: #### 4 5318 ####[facility] LAB [address] [place] [address] Les Malone M.D. [id number] Glucose [Mass/Vol] 157 mg/dL High 65-99 [facility] Comment on above: Performed By: #### 4 6932 #### LAB [address] [place] [address] Les Malone M.D. [id number] POTASSIUM LEVELon 01-16-2024 Potassium [Moles/Vol] 4.2 mmol/L Normal 3.5-5.1 [facility] Comment on above: Performed By: #### 4 6351 ####[facility] LAB [address] [place] [address] Les Malone M.D. [id number] TRIGLYCERIDESon 01-16-2024 Triglyceride [Mass/Vol] 154 mg/dL High 30-150 [facility] Comment on above: Result Comment: [place] [employer] Cholesterol Education Program Guidelines: TriglycerideNormal: <150 mg/dLBorderline High: 150-199 mg/dLHigh: 200-499 mg/dLVery High: greater than or equal to 500 mg/dL Performed By: #### 4 6606 #### LAB [address] [place] [address] Les Malone M.D. [id number] CALCIUM, IONIZEDon CALCIUM IONIZED 4.4 mg/dL Low 4.5-5.3 [facility] Comment on above: Performed By: #### 4 5190 #### LAB [address] [place] [address] Les Malone M.D. [id number] CBCon 01-15-2024 AUTO NRBC 0.0 % Normal [facility] Comment on above: Performed By: #### 4 5218 #### LAB [address] [place] [address] Les Malone M.D. [id number] AUTO NRBC ABS COUNT 0.00 K/mcL Normal 0.00-0.00 [facility] Comment on above: Performed By: #### 4 5218 #### LAB [address] [place] [address] Les Malone M.D. [id number] Erythrocyte distribution width (RBC) [Ratio] 20.2 % High 11.6-14.8 [facility] Comment on above: Performed By: #### 4 5218 #### LAB [address] [place] [address] Les Malone M.D. [id number] Hematocrit (Bld) [Volume fraction] 24.6 % Low 41.0-53.0 [facility] Comment on above: Performed By: #### 4 5218 #### LAB [address] [place] [address] Les Malone M.D. [id number] Hemoglobin (Bld) [Mass/Vol] 7.5 g/dL Low 13.5-17.5 [facility] Comment on above: Performed By: #### 4 5218 #### LAB [address] [place] [address] Les Malone M.D. [id number] MCH (RBC) [Entitic mass] 29.0 pg Normal 26.0-34.0 [facility] Comment on above: Performed By: #### 4 5218 #### LAB [address] [place] [address] Les Malone M.D. [id number] MCV (RBC) [Entitic vol] 95.0 fL Normal 80.0-100.0 [facility] Comment on above: Performed By: #### 4 5218 #### LAB [address] [place] [address] Les Malone M.D. [id number] MEAN CORPUSCULAR HEMOGLOBIN CONC 30.5 g/dL Low 31.0-37.0 [facility] Comment on above: Performed By: #### 4 5218 #### LAB [address] [place] [address] Les Malone M.D. [id number] Platelet mean volume (Bld) [Entitic vol] 11.1 fL Normal 9.4-12.4 [facility] Comment on above: Performed By: #### 4 5218 #### LAB [address] [place] [address] Les Malone M.D. [id number] Platelets (Bld) [#/Vol] 372 10*3/uL Normal 150-400 [facility] Comment on above: Performed By: #### 4 5218 #### LAB [address] [place], [place] [address] Les Malone M.D. [id number] RBC (Bld) [#/Vol] 2.59 10*6/uL Low 4.50-5.90 [facility] Comment on above: Performed By: #### 4 5218 ####[facility] LAB [address] [place], [place] [address] Les Malone M.D. [id number] WBC (Bld) [#/Vol] 15.18 10*3/uL High 4.50-11.00 [facility] Comment on above: Performed By: #### 4 5218 #### LAB [address] [place] [address] Les Malone M.D. [id number] CHEM 701-15-2024 Anion gap [Moles/Vol] 14 mmol/L Normal 10-20 [facility] Comment on above: Order Comment: [facility] has implemented the eGFR calculation approach that does not have a coefficient for race that conforms to the NKF-ASN Task Force Recommendations. Performed By: #### 4 6953 #### LAB [address] [place], [place] [address] Les Malone M.D. [id number] Chloride [Moles/Vol] 111 mmol/L High 98-108 [facility] Comment on above: Order Comment: [facility] has implemented the eGFR calculation approach that does not have a coefficient for race that conforms to the NKF-ASN Task Force Recommendations. Performed By: #### 4 6953 #### LAB [address] [place], [place] [address] Les Malone M.D. [id number] Creatinine [Mass/Vol] 0.65 mg/dL Normal 0.50-1.30 [facility] Comment on above: Order Comment: [facility] has implemented the eGFR calculation approach that does not have a coefficient for race that conforms to the NKF-ASN Task Force Recommendations. Performed By: #### 4 6953 #### LAB [address] [place], [place] [address] Les Malone M.D. [id number] EGFR 118 mL/min/1.73 m2 Normal >=60 [facility] Comment on above: Order Comment: [facility] has implemented the eGFR calculation approach that does not have a coefficient for race that conforms to the NKF-ASN Task Force Recommendations. Result Comment: Fanta mated GFR was calculated using the 2020 CKD-EPI creatinine equation. Performed By: #### 4 6953 #### LAB [address] [place], [place] [address] Les Malone M.D. [id number] Glucose [Mass/Vol] 117 mg/dL High 65-99 [facility] Comment on above: Order Comment: [facility] has implemented the eGFR calculation approach that does not have a coefficient for race that conforms to the NKF-ASN Task Force Recommendations. Performed By: #### 4 6953 #### LAB [address] [place] [address] Les Malone M.D. [id number] HCO3 (Bld) [Moles/Vol] 23 mmol/L Normal 21-32 [facility] Comment on above: Order Comment: [facility] has implemented the eGFR calculation approach that does not have a coefficient for race that conforms to the NKF-ASN Task Force Recommendations. Performed By: #### 4 6953 #### LAB [address] [place], [place] [address] Les Malone M.D. [id number] Potassium [Moles/Vol] 4.0 mmol/L Normal 3.5-5.1 [facility] Comment on above: Order Comment: [facility] has implemented the eGFR calculation approach that does not have a coefficient for race that conforms to the NKF-ASN Task Force Recommendations. Performed By: #### 4 6953 #### LAB [address] [place], [place] [address] Les Malone M.D. [id number] Sodium [Moles/Vol] 144 mmol/L Normal 135-145 [facility] Comment on above: Order Comment: [facility] has implemented the eGFR calculation approach that does not have a coefficient for race that conforms to the NKF-ASN Task Force Recommendations. Performed By: #### 4 6953 #### LAB [address] [place] [address] Les Malone M.D. [id number] Urea nitrogen [Mass/Vol] 35 mg/dL High 8-25 [facility] Comment on above: Order Comment: [facility] has implemented the eGFR calculation approach that does not have a coefficient for race that conforms to the NKF-ASN Task Force Recommendations. Performed By: #### 4 6953 #### LAB [address] [place] [address] Les Malone M.D. [id number] Urea nitrogen/Creatinine [Mass ratio] 53.8 mg/mg High 10.0-20.0 [facility] Comment on above: Order Comment: [facility] has implemented the eGFR calculation approach that does not have a coefficient for race that conforms to the NKF-ASN Task Force Recommendations. Performed By: #### 4 6953 #### LAB [address] [place], [place] [address] Les Malone M.D. [id number] MAGNESIUM LEVELon 01-15-2024 Magnesium [Mass/Vol] 2.3 mg/dL Normal 1.6-2.4 [facility] [place] Comment on above: Performed By: #### 4 6109 ####[facility] LAB [address] [place], [place] [address] Les Malone M.D. [id number] PHOSPHORUSon 01-15-2024 Phosphate [Mass/Vol] 3.6 mg/dL Normal 2.7-4.5 [facility] [place] Comment on above: Performed By: #### 4 6299 #### LAB [address] [place] [address] Les Malone M.D. [id number] POC ARTERIAL BLOOD GAS PANEL -[facility] Salome 01-15-2024 [id number] 65.3 mm Hg Normal [facility] Comment on above: Performed By: #### 4 8716 ####[facility] LAB [address] [place] [address] Les Malone M.D. [id number] BASE EXCESS, ARTERIAL 1.3 Normal -2.0-2.0 [facility] Comment on above: Performed By: #### 4 8716 ####[facility] LAB [address] [place] [address] Les Malone M.D. [id number] FIO2 40 Normal [facility] Comment on above: Performed By: #### 4 8716 ####[facility] LAB [address] [place] [address] Les Malone M.D. [id number] HCO3 (Bld) [Moles/Vol] 25.0 mmol/L Normal 22.0-26.0 [facility] Comment on above: Performed By: #### 4 8716 ####[facility] LAB [address] [place] [address] Les Malone M.D. [id number] Hematocrit (Bld) [Volume fraction] 29.0 % Low 41.0-53.0 [facility] Comment on above: Performed By: #### 4 8716 ####[facility] LAB [address] [place] [address] Les Malone M.D. [id number] Hemoglobin (Bld) [Mass/Vol] 9.5 g/dL Low 13.5-17.5 [facility] Comment on above: Performed By: #### 4 8716 #### LAB [address] [place] [address] Les Malone M.D. [id number] Oxygen saturation in Blood 99.5 % High 92.0-99.0 [facility] Comment on above: Performed By: #### 4 8716 ####[facility] LAB [address] [place] [address] Les Malone M.D. [id number] PCO2 ARTERIAL 35.4 mm Hg Normal 35.0-45.0 [facility] Comment on above: Performed By: #### 4 8716 ####[facility] LAB [address] [place] [id number] Les Malone M.D. [id number] PEEP RAD 5 [facility] Comment on above: Performed By: #### 4 8716 #### LAB [address] [place] [address] Les Malone M.D. [id number] PH ARTERIAL 7.46 High 7.35-7.45 [facility] Comment on above: Performed By: #### 4 8716 ####[facility] [address] [place] [address] Les Malone M.D. [id number] PO2 ARTERIAL 168 mm Hg High 80-100 [facility] Comment on above: Performed By: #### 4 [id number] #### LAB [address] [place] [address] Les Malone M.D. [id number] RESP RATE RAD 22 [facility] Comment on above: Performed By: #### 4 8716 ####[facility] [address] [place] [address] Les Malone M.D. [id number] SPECIMEN SOURCE RADIANCE Not specified [facility] Comment on above: Performed By: #### 4 8716 #### LAB [address] [place] [address] Les Malone M.D. [id number] TIDAL VOLUME RAD 480 [facility] Comment on above: Performed By: #### 4 [id number] #### LAB [address] [place] [address] Les Malone M.D. [id number] [facility] Glucose [Mass/Vol] 150 mg/dL High 65-99 [facility] Comment on above: Performed By: #### 4 6932 ####[facility] [address] [place] [address] Les Malone M.D. [id number] Glucose [Mass/Vol] 119 mg/dL High [address] [place] [address] Comment on above: Performed By: #### 4 6932 #### LAB [address] [place] [address] Les Malone M.D. [id number] Glucose [Mass/Vol] 111 mg/dL [address] Comment on above: Performed By: #### 4 6932 #### LAB [address] [place] [address] Les Malone M.D. [id number] Glucose [Mass/Vol] 113 mg/dL High [address] [place] [address] Comment on above: Performed By: #### 4 6932 #### LAB [address] [place] [address] Les Malone M.D. [id number] Glucose [Mass/Vol] 129 mg/dL [address] Comment on above: Performed By: #### 4 6932 #### LAB [address] [place] [address] Les Malone M.D. [id number] CBCon 01-14-2024 AUTO NRBC 0.0 % [facility] Comment on above: Performed By: #### 4 [id number] #### LAB [address] [place] [address] Les Malone M.D. [id number] AUTO NRBC ABS COUNT 0.00 K/mcL Normal 0.00-0.00 [facility] Comment on above: Performed By: #### 4 [id number] #### LAB [address] [place] [address] Les Malone M.D. [id number] Erythrocyte distribution width (RBC) [Ratio] 21.2 % High 11.6-14.8 [facility] Comment on above: Performed By: #### 4 [id number] #### LAB [address] [place] [address] Les Malone M.D. [id number] Hematocrit (Bld) [Volume fraction] 24.3 % Low 41.0-53.0 [facility] Comment on above: Performed By: #### 4 [id number] #### LAB [address] [place] [address] Les Malone M.D. [id number] Hemoglobin (Bld) [Mass/Vol] 7.3 g/dL Low 13.5-17.5 [facility] Comment on above: Performed By: #### 4 [id number] #### LAB [address] [place] [address] Les Malone M.D. [id number] MCH (RBC) [Entitic mass] 29.0 pg Normal 26.0-34.0 [facility] Comment on above: Performed By: #### 4 [id number] #### LAB [address] [place] [address] Les Malone M.D. [id number] MCV (RBC) [Entitic vol] 96.4 fL Normal 80.0-100.0 [facility] Comment on above: Performed By: #### 4 [id number] #### LAB [address] [place] [address] Les Malone M.D. [id number] MEAN CORPUSCULAR HEMOGLOBIN CONC 30.0 g/dL Low 31.0-37.0 [facility] Comment on above: Performed By: #### 4 [id number] #### LAB [address] [place] [address] Les Malone M.D. [id number] Platelet mean volume (Bld) [Entitic vol] 10.9 fL Normal 9.4-12.4 [facility] Comment on above: Performed By: #### 4 [id number] #### LAB [address] [place] [address] Les Malone M.D. [id number] Platelets (Bld) [#/Vol] 341 10*3/uL Normal 150-400 [facility] Comment on above: Performed By: #### 4 [id number] #### LAB [address] [place] [address] Les Malone M.D. [id number] RBC (Bld) [#/Vol] 2.52 10*6/uL Low 4.50-5.90 [facility] Comment on above: Performed By: #### 4 5218 #### LAB [address] [place], [place] [address] Les Malone M.D. [id number] WBC (Bld) [#/Vol] 11.93 10*3/uL High 4.50-11.00 [facility] Comment on above: Performed By: #### 4 5218 #### LAB [address] [place], [place] [address] Les Malone M.D. [id number] CHEM 01-14-2024 Anion gap [Moles/Vol] 14 mmol/L Normal 10-20 [facility] Comment on above: Order Comment: [facility] has implemented the eGFR calculation approach that does not have a coefficient for race that conforms to the NKF-ASN Task Force Recommendations. Performed By: #### 4 6953 #### LAB [address] [place], [place] [address] Les Malone M.D. [id number] Chloride [Moles/Vol] 117 mmol/L High 98-108 [facility] [place] Comment on above: Order Comment: [facility] has implemented the eGFR calculation approach that does not have a coefficient for race that conforms to the NKF-ASN Task Force Recommendations. Performed By: #### 4 6953 #### LAB [address] [place], [place] [address] Les Malone M.D. [id number] Creatinine [Mass/Vol] 0.62 mg/dL Normal 0.50-1.30 [facility] Comment on above: Order Comment: [facility] has implemented the eGFR calculation approach that does not have a coefficient for race that conforms to the NKF-ASN Task Force Recommendations. Performed By: #### 4 6953 #### LAB [address] [place], [place] [address] Les Maloen M.D. [id number] EGFR 120 mL/min/1.73 m2 Normal >=60 [facility] Comment on above: Order Comment: [facility] has implemented the eGFR calculation approach that does not have a coefficient for race that conforms to the NKF-ASN Task Force Recommendations. Result Comment: Fanta mated GFR was calculated using the 2020 CKD-EPI creatinine equation. Performed By: #### 4 6953 #### LAB [address] [place] [address] Les Malone M.D. [id number] Glucose [Mass/Vol] 101 mg/dL High 65-99 [facility] Comment on above: Order Comment: [facility] has implemented the eGFR calculation approach that does not have a coefficient for race that conforms to the NKF-ASN Task Force Recommendations. Performed By: #### 4 6953 #### LAB [address] [place] [address] Les Malone M.D. [id number] HCO3 (Bld) [Moles/Vol] 22 mmol/L Normal 21-32 [facility] Comment on above: Order Comment: [facility] has implemented the eGFR calculation approach that does not have a coefficient for race that conforms to the NKF-ASN Task Force Recommendations. Performed By: #### 4 6953 #### LAB [address] [place] [address] Les Malone M.D. [id number] Potassium [Moles/Vol] 3.8 mmol/L Normal 3.5-5.1 [facility] Comment on above: Order Comment: [facility] has implemented the eGFR calculation approach that does not have a coefficient for race that conforms to the NKF-ASN Task Force Recommendations. Performed By: #### 4 6953 #### LAB [address] [place] [address] Les Malone M.D. [id number] Sodium [Moles/Vol] 149 mmol/L High 135-145 [facility] Comment on above: Order Comment: [facility] has implemented the eGFR calculation approach that does not have a coefficient for race that conforms to the NKF-ASN Task Force Recommendations. Performed By: #### 4 6953 ####[facility] LAB [address] [place], [place] [address] Les Malone M.D. [id number] Urea nitrogen [Mass/Vol] 42 mg/dL High 8-25 [facility] Comment on above: Order Comment: [facility] has implemented the eGFR calculation approach that does not have a coefficient for race that conforms to the NKF-ASN Task Force Recommendations. Performed By: #### 4 6953 ####[facility] LAB [address] [place], [place] [address] Les Malone M.D. [id number] Urea nitrogen/Creatinine [Mass ratio] 67.7 mg/mg High 10.0-20.0 [facility] Comment on above: Order Comment: [facility] has implemented the eGFR calculation approach that does not have a coefficient for race that conforms to the NKF-ASN Task Force Recommendations. Performed By: #### 4 6953 #### LAB [address] [place], [place] [address] Les Malone M.D. [id number] CONSULTon 01-14-[address] Cale hurt for critical care. AUTHENTICATED BY JOEY FIGUEROA ON 01/14/2024 17:19:51 Normal [facility] ECHOCARDIOGRAM LIMITEDon ECHOCARDIOGRAM LIMITED Normal [facility] MAGNESIUM LEVELon 01-14-2024 Magnesium [Mass/Vol] 2.5 mg/dL High 1.6-2.4 [facility] Comment on above: Performed By: #### 4 6109 ####[facility] LAB [address] [place], [place] [address] Les Malone M.D. [id number] OP NOTEon 01-14-2024 OP NOTE Normal [facility] PHOSPHORUSon 01-14-2024 Phosphate [Mass/Vol] 3.6 mg/dL Normal 2.7-4.5 [facility] Comment on above: Performed By: #### 4 6299 ####[facility] LAB [address] [place], [place] [address] Les Malone M.D. [id number] POC ABG SURG - RALSon 2023 BASE EXCESS, ARTERIAL ISTAT 1 Normal -2-2 [facility] Comment on above: Performed By: #### 4 8737 ####[facility] LAB [address] [place] [address] Les Malone M.D. [id number] Glucose [Mass/Vol] 163 mg/dL High 65-99 [facility] Comment on above: Performed By: #### 4 8737 ####[facility] LAB [address] [place] [address] Les Malone M.D. [id number] HCO3 (Bld) [Moles/Vol] 26.0 mmol/L Normal 22.0-26.0 [facility] Comment on above: Performed By: #### 4 8737 ####[facility] LAB [address] [place] [address] Les Malone M.D. [id number] Hematocrit (Bld) [Volume fraction] 26 % Low 41-53 [facility] Comment on above: Performed By: #### 4 8737 ####[facility] LAB [address] [place] [address] Les Malone M.D. [id number] Hemoglobin (Bld) [Mass/Vol] 8.8 g/dL Low 13.5-17.5 [facility] Comment on above: Performed By: #### 4 8737 #### LAB [address] [place] [address] Les Malone M.D. [id number] Oxygen saturation in Blood 100.0 % High 92.0-99.0 [facility] Comment on above: Performed By: #### 4 8737 ####[facility] LAB [address] [place] [address] Les Malone M.D. [id number] PCO2 ARTERIAL 44.3 mm Hg Normal 35.0-45.0 [facility] Comment on above: Performed By: #### 4 8722 ####[facility] LAB [address] [place] [address] Les Malone M.D. [id number] PH ARTERIAL 7.38 Normal 7.35-7.45 [facility] Comment on above: Performed By: #### 4 8737 ####[facility] LAB [address] [place] [address] Les Malone M.D. [id number] PO2 ARTERIAL 349 mm Hg High 80-100 [facility] Comment on above: Performed By: #### 4 8737 ####[facility] LAB [address] [place] [address] Les Malone M.D. [id number] POC IONIZED CALCIUM 4.5 mg/dL Normal 4.5-5.3 [facility] Comment on above: Performed By: #### 4 8737 ####[facility] LAB [address] [place] [address] Les Malone M.D. [id number] Potassium [Moles/Vol] 3.6 mmol/L Normal 3.5-5.1 [facility] Comment on above: Performed By: #### 4 8737 ####[facility] LAB [address] [place] [address] Les Malone M.D. [id number] Sodium [Moles/Vol] 149 mmol/L High 135-145 [facility] Comment on above: Performed By: #### 4 8737 ####[facility] LAB [address] [place] [address] Les Malone M.D. [id number] POC ARTERIAL BLOOD GAS PANEL [facility] 01-14-2024 [id number] 109.5 mm Hg [facility] Comment on above: Performed By: #### 4 8716 ####[facility] LAB [address] [place] [address] Les Malone M.D. [id number] BASE EXCESS, ARTERIAL 0.3 Normal -2.0-2.0 [facility] Comment on above: Performed By: #### 4 8716 ####[facility] LAB [address] [place] [address] Les Malone M.D. [id number] FIO2 40 [facility] Comment on above: Performed By: #### 4 8716 #### LAB [address] [place] [address] Les Malone M.D. [id number] HCO3 (Bld) [Moles/Vol] 24.4 mmol/L Normal 22.0-26.0 [facility] Comment on above: Performed By: #### 4 8716 ####[facility] LAB [address] [place] [address] Les Malone M.D. [id number] Hematocrit (Bld) [Volume fraction] 25.3 % Low 41.0-53.0 [facility] Comment on above: Performed By: #### 4 8716 #### LAB [address] [place] [address] Les Malone M.D. [id number] Hemoglobin (Bld) [Mass/Vol] 8.3 g/dL Low 13.5-17.5 [facility] Comment on above: Performed By: #### 4 8716 #### LAB [address] [place] [address] Les Malone M.D. [id number] Oxygen saturation in Blood 99.5 % High 92.0-99.0 [facility] Comment on above: Performed By: #### 4 8716 #### LAB [address] [place] [address] Les Malone M.D. [id number] PCO2 ARTERIAL 36.4 mm Hg Normal 35.0-45.0 [facility] Comment on above: Performed By: #### 4 8716 ####[facility] [address] [place] [address] Les Malone M.D. [id number] PEEP RAD 5 Normal [facility] Comment on above: Performed By: #### 4 8716 #### LAB [address] [place] [address] Les Malone M.D. [id number] PH ARTERIAL 7.44 Normal 7.35-7.45 [facility] Comment on above: Performed By: #### 4 8716 ####[facility] LAB [address] [place] [address] Les Malone M.D. [id number] PO2 ARTERIAL 122 mm Hg High 80-100 [facility] Comment on above: Performed By: #### 4 8716 ####[facility] [address] [place] [address] Les Malone M.D. [id number] RESP RATE RAD 22 Normal [facility] Comment on above: Performed By: #### 4 8716 ####[facility] LAB [address] [place] [address] Les Malone M.D. [id number] SPECIMEN SOURCE RADIANCE Not specified [facility] Comment on above: Performed By: #### 4 8716 #### LAB [address] [place] [address] Les Malone M.D. [id number] TIDAL VOLUME RAD 480 Normal [facility] Comment on above: Performed By: #### 4 8716 ####[facility] LAB [address] [place] [address] Les Malone M.D. [id number] 81.6 mm Hg [facility] Comment on above: Performed By: #### 4 8716 #### LAB [address] [place] [address] Les Malone M.D. [id number] BASE EXCESS, ARTERIAL 2.1 High -2.0-2.0 [facility] Comment on above: Performed By: #### 4 8716 ####[facility] LAB [address] [place] [address] Les Malone M.D. [id number] FIO2 40 [facility] Comment on above: Performed By: #### 4 8716 ####[facility] LAB [address] [place] [address] Les Malone M.D. [id number] HCO3 (Bld) [Moles/Vol] 25.5 mmol/L Normal 22.0-26.0 [facility] Comment on above: Performed By: #### 4 8716 ####[facility] LAB [address] [place] [address] Les Malone M.D. [id number] Hematocrit (Bld) [Volume fraction] 24.9 % Low 41.0-53.0 [facility] Comment on above: Performed By: #### 4 8716 #### LAB [address] [place] [address] Les Malone M.D. [id number] Hemoglobin (Bld) [Mass/Vol] 8.1 g/dL Low 13.5-17.5 [facility] Comment on above: Performed By: #### 4 8716 ####[facility] LAB [address] [place] [address] Les Malone M.D. [id number] O2 SATURATION ARTERIAL > High 92.0-99.0 [facility] Comment on above: Performed By: #### 4 8716 #### LAB [address] [place] [address] Les Malone M.D. [id number] PCO2 ARTERIAL 33.4 mm Hg Low 35.0-45.0 [facility] Comment on above: Performed By: #### 4 8716 #### LAB [address] [place] [address] Les Malone M.D. [id number] PEEP RAD 5 [facility] Comment on above: Performed By: #### 4 8716 #### LAB [address] [place] [address] Les Malone M.D. [id number] PH ARTERIAL 7.49 High 7.35-7.45 [facility] Comment on above: Performed By: #### 4 8716 #### LAB [address] [place] [address] Les Malone M.D. [id number] PO2 ARTERIAL 154 mm Hg High 80-100 [facility] Comment on above: Performed By: #### 4 8716 ####[facility] [address] [place] [address] Les Malone M.D. [id number] RESP RATE RAD 22 [facility] Comment on above: Performed By: #### 4 8716 ####[facility] [address] [place] [address] Les Malone M.D. [id number] SPECIMEN SOURCE RADIANCE Not specified [facility] Comment on above: Performed By: #### 4 8716 ####[facility] [address] [place] [address] Les Malone M.D. [id number] TIDAL VOLUME RAD 480 [facility] Comment on above: Performed By: #### 4 8716 ####[facility] LAB [address] [place] [address] Les Malone M.D. [id number] POC GLUCOSE [facility] 024 Glucose [Mass/Vol] 143 mg/dL [address] Comment on above: Performed By: #### 4 6932 ####[facility] [address] [place] [address] Les Malone M.D. [id number] Glucose [Mass/Vol] 118 mg/dL [address] Comment on above: Performed By: #### 4 6932 ####[facility] LAB [address] [place] [address] Les Malone M.D. [id number] Glucose [Mass/Vol] 134 mg/dL [address] Comment on above: Performed By: #### 4 6932 ####[facility] LAB [address] [place] [address] Les Malone M.D. [id number] Glucose [Mass/Vol] 122 mg/dL [address] Comment on above: Performed By: #### 4 7539 ####[facility] LAB [address] [place] [address] Les Malone M.D. [id number] Glucose [Mass/Vol] 116 mg/dL [address] Comment on above: Performed By: #### 4 8410 ####[facility] LAB [address] [place] [address] Les Malone M.D. [id number] XR CHEST PA/APon 01-14-2024 XR CHEST PA/AP Normal [facility] Comment on above: Order Comment: Injur y/Trauma or Illness?:Illness/OtherHow long have you had these symptoms (acute/chronic)?:AcuteReason for exam?:TRACHHistory of cancer?:uSurgeries, chemotherapy, or radiation?:uType of Exam?:InitialAdditional signs and symptoms?:. CBCon 01-13-2024 AUTO NRBC 0.1 % Normal [facility] Comment on above: Performed By: #### 4 [id number] #### LAB [address] [place] [address] Les Malone M.D. [id number] AUTO NRBC ABS COUNT 0.02 K/mcL High 0.00-0.00 [facility] Comment on above: Performed By: #### 4 [id number] #### LAB [address] [place] [address] Les Malone M.D. [id number] Erythrocyte distribution width (RBC) [Ratio] 21.7 % High 11.6-14.8 [facility] Comment on above: Performed By: #### 4 5218 #### LAB [address] [place] [address] Les Malone M.D. [id number] Hematocrit (Bld) [Volume fraction] 25.1 % Low 41.0-53.0 [facility] Comment on above: Performed By: #### 4 5218 #### LAB [address] [place] [address] Les Malone M.D. [id number] Hemoglobin (Bld) [Mass/Vol] 7.7 g/dL Low 13.5-17.5 [facility] Comment on above: Performed By: #### 4 5218 #### LAB [address] [place] [address] Les Malone M.D. [id number] MCH (RBC) [Entitic mass] 29.6 pg Normal 26.0-34.0 [facility] Comment on above: Performed By: #### 4 5218 #### LAB [address] [place] [address] Les Malone M.D. [id number] MCV (RBC) [Entitic vol] 96.5 fL Normal 80.0-100.0 [facility] Comment on above: Performed By: #### 4 5218 #### LAB [address] [place] [address] Les Malone M.D. [id number] MEAN CORPUSCULAR HEMOGLOBIN CONC 30.7 g/dL Low 31.0-37.0 [facility] Comment on above: Performed By: #### 4 5218 ####[facility] [address] [place] [address] Les Malone M.D. [id number] Platelet mean volume (Bld) [Entitic vol] 11.3 fL Normal 9.4-12.4 [facility] Comment on above: Performed By: #### 4 5218 #### LAB [address] [place] [address] Les Malone M.D. [id number] Platelets (Bld) [#/Vol] 343 10*3/uL Normal 150-400 [facility] Comment on above: Performed By: #### 4 5218 #### LAB [address] [place] [address] Les Malone M.D. [id number] RBC (Bld) [#/Vol] 2.60 10*6/uL Low 4.50-5.90 [facility] Comment on above: Performed By: #### 4 [id number] #### LAB [address] [place] [address] Les Malone M.D. [id number] WBC (Bld) [#/Vol] 15.28 10*3/uL High 4.50-11.00 [facility] Comment on above: Performed By: #### 4 [id number] #### LAB [address] [place] [address] Les Malone M.D. [id number] CHEM 01-13-2024 Anion gap [Moles/Vol] 13 mmol/L Normal 10-20 [facility] Comment on above: Order Comment: [facility] has implemented the eGFR calculation approach that does not have a coefficient for race that conforms to the NKF-ASN Task Force Recommendations. Performed By: #### 4 6953 #### LAB [address] [place], [place] [address] Les Malone M.D. [id number] Chloride [Moles/Vol] 114 mmol/L High 98-108 [facility] Comment on above: Order Comment: [facility] has implemented the eGFR calculation approach that does not have a coefficient for race that conforms to the NKF-ASN Task Force Recommendations. Performed By: #### 4 6953 #### LAB [address] [place], [place] [address] Les Malone M.D. [id number] Creatinine [Mass/Vol] 0.72 mg/dL Normal 0.50-1.30 [facility] Comment on above: Order Comment: [facility] has implemented the eGFR calculation approach that does not have a coefficient for race that conforms to the NKF-ASN Task Force Recommendations. Performed By: #### 4 6953 #### LAB [address] [place] [address] Les Malone M.D. [id number] EGFR 115 mL/min/1.73 m2 Normal >=60 [facility] Comment on above: Order Comment: [facility] has implemented the eGFR calculation approach that does not have a coefficient for race that conforms to the NKF-ASN Task Force Recommendations. Result Comment: Fanta mated GFR was calculated using the 2020 CKD-EPI creatinine equation. Performed By: #### 4 6953 ####[facility] [address] [address] Les Malone M.D. [id number] Glucose [Mass/Vol] 111 mg/dL High 65-99 [facility] Comment on above: Order Comment: [facility] has implemented the eGFR calculation approach that does not have a coefficient for race that conforms to the NKF-ASN Task Force Recommendations. Performed By: #### 4 6953 #### LAB [address] [place], [place] [address] Les Malone M.D. [id number] HCO3 (Bld) [Moles/Vol] 24 mmol/L Normal 21-32 [facility] Comment on above: Order Comment: [facility] has implemented the eGFR calculation approach that does not have a coefficient for race that conforms to the NKF-ASN Task Force Recommendations. Performed By: #### 4 6953 ####[facility] [address] [place], [place] [address] Les Malone M.D. [id number] Potassium [Moles/Vol] 3.9 mmol/L Normal 3.5-5.1 [facility] Comment on above: Order Comment: [facility] has implemented the eGFR calculation approach that does not have a coefficient for race that conforms to the NKF-ASN Task Force Recommendations. Performed By: #### 4 6953 #### LAB [address] [address] Les Malone M.D. [id number] Sodium [Moles/Vol] 147 mmol/L High 135-145 [facility] Comment on above: Order Comment: [facility] has implemented the eGFR calculation approach that does not have a coefficient for race that conforms to the NKF-ASN Task Force Recommendations. Performed By: #### 4 6953 ####[facility] [address] [id number] Les Malone M.D. [id number] Urea nitrogen [Mass/Vol] 48 mg/dL High 8-25 [facility] Comment on above: Order Comment: [facility] has implemented the eGFR calculation approach that does not have a coefficient for race that conforms to the NKF-ASN Task Force Recommendations. Performed By: #### 4 6953 ####[facility] [address] [id number] Les Malone M.D. [id number] Urea nitrogen/Creatinine [Mass ratio] 66.7 mg/mg High 10.0-20.0 [facility] Comment on above: Order Comment: [facility] has implemented the eGFR calculation approach that does not have a coefficient for race that conforms to the NKF-ASN Task Force Recommendations. Performed By: #### 4 6953 #### LAB [address] [place], [place] [address] Les Malone M.D. [id number] MAGNESIUM LEVELon 01-13-2024 Magnesium [Mass/Vol] 2.6 mg/dL High 1.6-2.4 [facility] [place] Comment on above: Performed By: #### 4 6109 #### LAB [address] [address] Les Malone M.D. [id number] PACEMAKER IMPLANTon 01-13-20 24 PACEMAKER IMPLANT Normal [facility] PHOSPHORUSon 01-13-2024 Phosphate [Mass/Vol] 3.8 mg/dL Normal 2.7-4.5 [facility] Comment on above: Performed By: #### 4 6299 ####[facility] [address] [id number] Les Malone M.D. [id number] POC ARTERIAL BLOOD GAS PANEL -[facility] 01-13-2024 [id number] 119.6 mm Hg Normal [facility] Comment on above: Performed By: #### 4 8716 ####[facility] [address] [place], [place] [address] Les Malone M.D. [id number] BASE EXCESS, ARTERIAL 0.9 Normal -2.0-2.0 [facility] Comment on above: Performed By: #### 4 8716 ####[facility] [address] [place], [place] [address] Les Malone M.D. [id number] FIO2 50 Normal [facility] Comment on above: Performed By: #### 4 8716 ####[facility] [address] [place], [place] [address] Les Malone M.D. [id number] HCO3 (Bld) [Moles/Vol] 25.3 mmol/L Normal 22.0-26.0 [facility] Comment on above: Performed By: #### 4 8716 #### LAB [address] [address] Les Malone M.D. [id number] Hematocrit (Bld) [Volume fraction] 27.5 % Low 41.0-53.0 [facility] Comment on above: Performed By: #### 4 8716 #### LAB [address] [address] Les Malone M.D. [id number] Hemoglobin (Bld) [Mass/Vol] 9.0 g/dL Low 13.5-17.5 [facility] Comment on above: Performed By: #### 4 8716 #### LAB [address] [address] Les Malone M.D. [id number] Oxygen saturation in Blood 99.6 % High 92.0-99.0 [facility] Comment on above: Performed By: #### 4 8716 #### LAB [address] [address] Les Malone M.D. [id number] PCO2 ARTERIAL 38.5 mm Hg Normal 35.0-45.0 [facility] Comment on above: Performed By: #### 4 8716 #### LAB [address] [address] Les Malone M.D. [id number] PEEP RAD 5 Normal [facility] Comment on above: Performed By: #### 4 8716 #### LAB [address] [address] Les Malone M.D. [id number] PH ARTERIAL 7.43 Normal 7.35-7.45 [facility] Comment on above: Performed By: #### 4 8716 #### LAB [address] [address] Les Malone M.D. [id number] PO2 ARTERIAL 179 mm Hg High 80-100 [facility] Comment on above: Performed By: #### 4 8716 #### LAB [address] [address] Les Malone M.D. [id number] RESP RATE RAD 22 Normal [facility] Comment on above: Performed By: #### 4 8716 #### LAB [address] [address] Les Malone M.D. [id number] SPECIMEN SOURCE RADIANCE Not specified [facility] Comment on above: Performed By: #### 4 8716 #### LAB [address] [address] Les Malone M.D. [id number] TIDAL VOLUME RAD 480 Normal [facility] Comment on above: Performed By: #### 4 8716 #### LAB [address] [address] Les Malone M.D. [id number] 72.8 mm Hg [facility] Comment on above: Performed By: #### 4 8716 #### LAB [address] [address] Les Malone M.D. [id number] BASE EXCESS, ARTERIAL 1.4 Normal -2.0-2.0 [facility] Comment on above: Performed By: #### 4 8716 #### LAB [address] [address] Les Malone M.D. [id number] FIO2 50 Normal [facility] Comment on above: Performed By: #### 4 8716 #### LAB [address] [address] Les Malone M.D. [id number] HCO3 (Bld) [Moles/Vol] 25.6 mmol/L Normal 22.0-26.0 [facility] Comment on above: Performed By: #### 4 8716 #### LAB [address] [address] Les Malone M.D. [id number] Hematocrit (Bld) [Volume fraction] 24.5 % Low 41.0-53.0 [facility] Comment on above: Performed By: #### 4 8716 #### LAB [address] [address] Les Malone M.D. [id number] Hemoglobin (Bld) [Mass/Vol] 8.0 g/dL Low 13.5-17.5 [facility] Comment on above: Performed By: #### 4 8716 #### LAB [address] [address] Les Malone M.D. [id number] O2 SATURATION ARTERIAL > High 92.0-99.0 [facility] Comment on above: Performed By: #### 4 8716 #### LAB [address] [address] Les Malone M.D. [id number] PCO2 ARTERIAL 37.7 mm Hg Normal 35.0-45.0 [facility] Comment on above: Performed By: #### 4 8716 #### LAB [address] [address] Les Malone M.D. [id number] PEEP RAD 10 [facility] Comment on above: Performed By: #### 4 8716 #### LAB [address] [address] Les Malone M.D. [id number] PH ARTERIAL 7.44 Normal 7.35-7.45 [facility] Comment on above: Performed By: #### 4 8716 #### LAB [address] [address] Les Malone M.D. [id number] PO2 ARTERIAL 227 mm Hg High 80-100 [facility] Comment on above: Performed By: #### 4 8716 #### LAB [address] [address] Les Malone M.D. [id number] RESP RATE RAD 22 [facility] Comment on above: Performed By: #### 4 8716 #### LAB [address] [address] Les Malone M.D. [id number] SPECIMEN SOURCE RADIANCE Not specified [facility] Comment on above: Performed By: #### 4 8716 #### LAB [address] [address] Les Malone M.D. [id number] TIDAL VOLUME RAD 480 Normal [facility] Comment on above: Performed By: #### 4 8716 #### LAB [address] [address] Les Malone M.D. [id number] [facility] Glucose [Mass/Vol] 136 mg/dL [address] Comment on above: Performed By: #### 4 6932 ####[facility] [address] [address] Les Malone M.D. [id number] Glucose [Mass/Vol] 109 mg/dL [address] Comment on above: Performed By: #### 4 6932 ####[facility] [address] [address] Les Malone M.D. [id number] Glucose [Mass/Vol] 119 mg/dL [address] Comment on above: Performed By: #### 4 6932 ####[facility] [address] [address] Les Malone M.D. [id number] Glucose [Mass/Vol] 132 mg/dL [address] Comment on above: Performed By: #### 4 6932 #### LAB [address] [address] Les Malone M.D. [id number] Glucose [Mass/Vol] 129 mg/dL [address] Comment on above: Performed By: #### 4 6932 ####[facility] [address] [address] Les Malone M.D. [id number] POTASSIUM LEVELon 01-13-2024 Potassium [Moles/Vol] 4.2 mmol/L Normal 3.5-5.1 [facility] Comment on above: Performed By: #### 4 6351 #### LAB [address] [address] Les Malone M.D. [id number] XR CHEST PA/APon 01-13-2024 XR CHEST PA/AP Normal [facility] Comment on above: Order Comment: Injur y/Trauma or Illness?:Illness/OtherHow long have you had these symptoms (acute/chronic)?:AcuteReason for exam?:s/p ppmHistory of cancer?:uSurgeries, chemotherapy, or radiation?:uType of Exam?:InitialAdditional signs and symptoms?:. BRONCHIAL AEROBIC CULTUREon 01-12-2024 BRONCHIAL AEROBIC CULTURE AEROBIC CULTURE No Growth after 48 hrs GRAM STAIN RESULT Many WBC No Organisms Seen Normal [facility] Comment on above: Performed By: #### 4 4017 ####[facility] [address] [place] [address] Yonny Toro M.D. [id number] CBCon 01-12-2024 AUTO NRBC 0.1 % Normal [facility] Comment on above: Performed By: #### 4 5218 ####[facility] [address] [address] Les Malone M.D. [id number] AUTO NRBC ABS COUNT 0.02 K/mcL High 0.00-0.00 [facility] Comment on above: Performed By: #### 4 5218 #### LAB [address] [address] Les Malone M.D. [id number] Erythrocyte distribution width (RBC) [Ratio] 20.9 % High 11.6-14.8 [facility] Comment on above: Performed By: #### 4 5218 #### LAB [address] [address] Les Malone M.D. [id number] Hematocrit (Bld) [Volume fraction] 24.3 % Low 41.0-53.0 [facility] Comment on above: Performed By: #### 4 5218 #### LAB [address] [address] Les Malone M.D. [id number] Hemoglobin (Bld) [Mass/Vol] 7.3 g/dL Low 13.5-17.5 [facility] Comment on above: Performed By: #### 4 5218 #### LAB [address] [address] Les Malone M.D. [id number] MCH (RBC) [Entitic mass] 29.8 pg Normal 26.0-34.0 [facility] Comment on above: Performed By: #### 4 5218 #### LAB [address] [address] Les Malone M.D. [id number] MCV (RBC) [Entitic vol] 99.2 fL Normal 80.0-100.0 [facility] Comment on above: Performed By: #### 4 5218 #### LAB [address] [address] Les Malone M.D. [id number] MEAN CORPUSCULAR HEMOGLOBIN CONC 30.0 g/dL Low 31.0-37.0 [facility] Comment on above: Performed By: #### 4 5218 #### LAB [address] [address] Les Malone M.D. [id number] Platelet mean volume (Bld) [Entitic vol] 10.7 fL Normal 9.4-12.4 [facility] Comment on above: Performed By: #### 4 5218 #### LAB [address] [address] Les Malone M.D. [id number] Platelets (Bld) [#/Vol] 356 10*3/uL Normal 150-400 [facility] Comment on above: Performed By: #### 4 5218 #### LAB [address] [address] Les Malone M.D. [id number] RBC (Bld) [#/Vol] 2.45 10*6/uL Low 4.50-5.90 [facility] Comment on above: Performed By: #### 4 5218 #### LAB [address] [address] Les Malone M.D. [id number] WBC (Bld) [#/Vol] 22.79 10*3/uL High 4.50-11.00 [facility] Comment on above: Performed By: #### 4 5218 #### LAB [address] [place], [place] [address] Les Malone M.D. [id number] CHEM 7on 01-12-2024 Anion gap [Moles/Vol] 15 mmol/L Normal 10-20 [facility] Comment on above: Order Comment: [facility] has implemented the eGFR calculation approach that does not have a coefficient for race that conforms to the NKF-ASN Task Force Recommendations. Performed By: #### 4 6953 #### LAB [address] [place], [place] [address] Les Malone M.D. [id number] Chloride [Moles/Vol] 116 mmol/L High 98-108 [facility] Comment on above: Order Comment: [facility] has implemented the eGFR calculation approach that does not have a coefficient for race that conforms to the NKF-ASN Task Force Recommendations. Performed By: #### 4 6953 #### LAB [address] [address] Les Malone M.D. [id number] Creatinine [Mass/Vol] 0.80 mg/dL Normal 0.50-1.30 [facility] Comment on above: Order Comment: [facility] has implemented the eGFR calculation approach that does not have a coefficient for race that conforms to the NKF-ASN Task Force Recommendations. Performed By: #### 4 6953 #### LAB [address] [address] Les Malone M.D. [id number] EGFR 111 mL/min/1.73 m2 Normal >=60 [facility] Comment on above: Order Comment: [facility] has implemented the eGFR calculation approach that does not have a coefficient for race that conforms to the NKF-ASN Task Force Recommendations. Result Comment: Fanta mated GFR was calculated using the 2020 CKD-EPI creatinine equation. Performed By: #### 4 6953 ####[facility] [address] [address] Les Malone M.D. [id number] Glucose [Mass/Vol] 162 mg/dL High 65-99 [facility] Comment on above: Order Comment: [facility] has implemented the eGFR calculation approach that does not have a coefficient for race that conforms to the NKF-ASN Task Force Recommendations. Performed By: #### 4 6953 ####[facility] [address] [address] Les Malone M.D. [id number] HCO3 (Bld) [Moles/Vol] 24 mmol/L Normal 21-32 [facility] Comment on above: Order Comment: [facility] has implemented the eGFR calculation approach that does not have a coefficient for race that conforms to the NKF-ASN Task Force Recommendations. Performed By: #### 4 6953 #### LAB [address] [address] Les Malone M.D. [id number] Potassium [Moles/Vol] 4.1 mmol/L Normal 3.5-5.1 [facility] Comment on above: Order Comment: [facility] has implemented the eGFR calculation approach that does not have a coefficient for race that conforms to the NKF-ASN Task Force Recommendations. Performed By: #### 4 6953 ####[facility] [address] [address] Les Malone M.D. [id number] Sodium [Moles/Vol] 151 mmol/L High 135-145 [facility] Comment on above: Order Comment: [facility] has implemented the eGFR calculation approach that does not have a coefficient for race that conforms to the NKF-ASN Task Force Recommendations. Performed By: #### 4 6953 ####[facility] [address] [address] Les Malone M.D. [id number] Urea nitrogen [Mass/Vol] 51 mg/dL High 8-25 [facility] Comment on above: Order Comment: [facility] has implemented the eGFR calculation approach that does not have a coefficient for race that conforms to the NKF-ASN Task Force Recommendations. Performed By: #### 4 6953 #### LAB [address] [place], [place] [address] Les Malone M.D. [id number] Urea nitrogen/Creatinine [Mass ratio] 63.8 mg/mg High 10.0-20.0 [facility] Comment on above: Order Comment: [facility] has implemented the eGFR calculation approach that does not have a coefficient for race that conforms to the NKF-ASN Task Force Recommendations. Performed By: #### 4 6953 #### LAB [address] [place], [place] [address] Les Malone M.D. [id number] CONSULTon 01-12-2024 CONSULT [facility] CONSULT [facility] HEMOGLOBIN AND HEMATOCRITon 01-12-2024 Hematocrit (Bld) [Volume fraction] 25.7 % Low 41.0-53.0 [facility] Comment on above: Performed By: #### 4 6909 #### LAB [address] [place], [place] [address] Les Malone M.D. [id number] Hemoglobin (Bld) [Mass/Vol] 7.9 g/dL Low 13.5-17.5 [facility] Comment on above: Performed By: #### 4 6909 #### LAB [address] [place], [place] [address] Les Malone M.D. [id number] MAGNESIUM LEVELon 01-12-2024 Magnesium [Mass/Vol] 2.6 mg/dL High 1.6-2.4 [facility] Comment on above: Performed By: #### 4 6109 #### LAB [address] [place], [place] [address] Les Malone M.D. [id number] PHOSPHORUSon 01-12-2024 Phosphate [Mass/Vol] 3.9 mg/dL Normal 2.7-4.5 [facility] Comment on above: Performed By: #### 4 6299 #### LAB [address] [address] Les Malone M.D. [id number] POC ARTERIAL BLOOD GAS PANEL -BRENDA Mcmahon 01-12-2024 [id number] 144.9 mm Hg [facility] Comment on above: Performed By: #### 4 8716 #### LAB [address] [address] Les Malone M.D. [id number] BASE EXCESS, ARTERIAL 1.1 Normal -2.0-2.0 [facility] Comment on above: Performed By: #### 4 8716 #### LAB [address] [address] Les Malone M.D. [id number] FIO2 70 [facility] Comment on above: Performed By: #### 4 8716 #### LAB [address] [address] Les Malone M.D. [id number] HCO3 (Bld) [Moles/Vol] 26.1 mmol/L High 22.0-26.0 [facility] Comment on above: Performed By: #### 4 8716 #### LAB [address] [address] Les Malone M.D. [id number] Hematocrit (Bld) [Volume fraction] 24.7 % Low 41.0-53.0 [facility] Comment on above: Performed By: #### 4 8716 #### LAB [address] [address] Les Malone M.D. [id number] Hemoglobin (Bld) [Mass/Vol] 8.1 g/dL Low 13.5-17.5 [facility] Comment on above: Performed By: #### 4 8716 #### LAB [address] [address] Les Malone M.D. [id number] O2 SATURATION ARTERIAL > High 92.0-99.0 [facility] Comment on above: Performed By: #### 4 8716 #### LAB [address] [address] Les Malone M.D. [id number] PCO2 ARTERIAL 43.1 mm Hg Normal 35.0-45.0 [facility] Comment on above: Performed By: #### 4 8716 ####[facility] [address] [address] Les Malone M.D. [id number] PEEP RAD 10 Normal [facility] Comment on above: Performed By: #### 4 8716 ####[facility] [address] [address] Les Malone M.D. [id number] PH ARTERIAL 7.39 Normal 7.35-7.45 [facility] Comment on above: Performed By: #### 4 8716 #### LAB [address] [address] Les Malone M.D. [id number] PO2 ARTERIAL 285 mm Hg High 80-100 [facility] Comment on above: Performed By: #### 4 8716 ####[facility] [address] [id number] Les Malone M.D. [id number] RESP RATE RAD 22 Normal [facility] Comment on above: Performed By: #### 4 8716 #### LAB [address] [address] Les Malone M.D. [id number] SPECIMEN SOURCE RADIANCE Not specified [facility] Comment on above: Performed By: #### 4 8716 #### LAB [address] [address] Les Malone M.D. [id number] TIDAL VOLUME RAD 480 Normal [facility] Comment on above: Performed By: #### 4 8716 #### LAB [address] [id number] Les Malone M.D. [id number] 364.7 mm Hg [facility] Comment on above: Performed By: #### 4 8716 ####[facility] [address] [address] Les Malone M.D. [id number] BASE EXCESS, ARTERIAL 0.6 Normal -2.0-2.0 [facility] Comment on above: Performed By: #### 4 8716 ####[facility] [address] [address] Les Malone M.D. [id number] FIO2 70 [facility] Comment on above: Performed By: #### 4 8716 ####[facility] [address] [address] Les Malone M.D. [id number] HCO3 (Bld) [Moles/Vol] 25.9 mmol/L Normal 22.0-26.0 [facility] Comment on above: Performed By: #### 4 8716 #### LAB [address] [address] Les Malone M.D. [id number] Hematocrit (Bld) [Volume fraction] 23.9 % Low 41.0-53.0 [facility] Comment on above: Performed By: #### 4 8716 ####[facility] [address] [address] Les Malone M.D. [id number] Hemoglobin (Bld) [Mass/Vol] 7.8 g/dL Low 13.5-17.5 [facility] Comment on above: Performed By: #### 4 8716 #### LAB [address] [address] Les Malone M.D. [id number] Oxygen saturation in Blood 91.8 % Low 92.0-99.0 [facility] Comment on above: Performed By: #### 4 8716 ####[facility] [address] [address] Les Malone M.D. [id number] PCO2 ARTERIAL 44.0 mm Hg Normal 35.0-45.0 [facility] Comment on above: Performed By: #### 4 8716 ####[facility] [address] [address] Les Malone M.D. [id number] PEEP RAD 10 [facility] Comment on above: Performed By: #### 4 8716 #### LAB [address] [address] Les Malone M.D. [id number] PH ARTERIAL 7.38 Normal 7.35-7.45 [facility] Comment on above: Performed By: #### 4 8716 #### LAB [address] [address] Les Malone M.D. [id number] PO2 ARTERIAL 66 mm Hg Low 80-100 [facility] Comment on above: Performed By: #### 4 8716 #### LAB [address] [address] Les Malone M.D. [id number] SPECIMEN SOURCE RADIANCE Not specified [facility] Comment on above: Performed By: #### 4 8716 #### LAB [address] [address] Les Malone M.D. [id number] 360.0 mm Hg [facility] Comment on above: Order Comment: Criti mono result acted upon time of test. Test performed at bedside. Performed By: #### 4 8716 #### LAB [address] [address] Les Malone M.D. [id number] BASE EXCESS, ARTERIAL 2.2 High -2.0-2.0 [facility] Comment on above: Order Comment: Criti mono result acted upon time of test. Test performed at bedside. Performed By: #### 4 8716 #### LAB [address] [address] Les Malone M.D. [id number] FIO2 70 [facility] Comment on above: Order Comment: Criti mono result acted upon time of test. Test performed at bedside. Performed By: #### 4 8716 #### LAB [address] [address] Les Malone M.D. [id number] HCO3 (Bld) [Moles/Vol] 26.3 mmol/L High 22.0-26.0 [facility] Comment on above: Order Comment: Criti mono result acted upon time of test. Test performed at bedside. Performed By: #### 4 8716 #### LAB [address] [address] Lse Malone M.D. [id number] Hemoglobin (Bld) [Mass/Vol] 6.1 g/dL Off scale low 13.5-17.5 [facility] Comment on above: Order Comment: Criti mono result acted upon time of test. Test performed at bedside. Performed By: #### 4 8716 #### LAB [address] [address] Les Malone M.D. [id number] Oxygen saturation in Blood 96.7 % Normal 92.0-99.0 [facility] Comment on above: Order Comment: Criti mono result acted upon time of test. Test performed at bedside. Performed By: #### 4 8716 #### LAB [address] [address] Les Malone M.D. [id number] PCO2 ARTERIAL 37.4 mm Hg Normal 35.0-45.0 [facility] Comment on above: Order Comment: Criti mono result acted upon time of test. Test performed at bedside. Performed By: #### 4 8716 #### LAB [address] [address] Les Malone M.D. [id number] PEEP RAD 5 Normal [facility] Comment on above: Order Comment: Criti mono result acted upon time of test. Test performed at bedside. Performed By: #### 4 8716 #### LAB [address] [address] Les Malone M.D. [id number] PH ARTERIAL 7.46 High 7.35-7.45 [facility] Comment on above: Order Comment: Criti mono result acted upon time of test. Test performed at bedside. Performed By: #### 4 8716 #### LAB [address] [address] Les Malone M.D. [id number] PO2 ARTERIAL 77 mm Hg Low 80-100 [facility] Comment on above: Order Comment: Criti mono result acted upon time of test. Test performed at bedside. Performed By: #### 4 8716 #### LAB [address] [address] Lse Malone M.D. [id number] RESP RATE RAD 22 [facility] Comment on above: Order Comment: Criti mono result acted upon time of test. Test performed at bedside. Performed By: #### 4 8716 #### LAB [address] [address] Les Malone M.D. [id number] SPECIMEN SOURCE RADIANCE Not specified [facility] Comment on above: Order Comment: Criti mono result acted upon time of test. Test performed at bedside. Performed By: #### 4 8716 ####[facility] [address] [address] Les Malone M.D. [id number] TIDAL VOLUME RAD 480 [facility] Comment on above: Order Comment: Criti mono result acted upon time of test. Test performed at bedside. Performed By: #### 4 8716 #### LAB [address] [address] Les Malone M.D. [id number] POC GLUCOSE [facility] 024 Glucose [Mass/Vol] 129 mg/dL High 65-99 [facility] Comment on above: Performed By: #### 4 6932 #### LAB [address] [address] Les Malone M.D. [id number] Glucose [Mass/Vol] 157 mg/dL High 65-99 [facility] Comment on above: Performed By: #### 4 6932 #### LAB [address] [address] Les Malone M.D. [id number] Glucose [Mass/Vol] 163 mg/dL High 6599 [facility] Comment on above: Performed By: #### 4 6932 #### LAB [address] [address] Les Malone M.D. [id number] Glucose [Mass/Vol] 190 mg/dL High [address] [place] [address] Comment on above: Performed By: #### 4 6932 #### LAB [address] [address] Les Malone M.D. [id number] Glucose [Mass/Vol] 154 mg/dL High [address] [place] [address] Comment on above: Performed By: #### 4 6932 ####[facility] [address] [address] eLs Malone M.D. [id number] Glucose [Mass/Vol] 156 mg/dL High [address] [place] [address] Comment on above: Performed By: #### 4 6932 #### LAB [address] [address] Les Malone M.D. [id number] TRIGLYCERIDESon 01-12-2024 Triglyceride [Mass/Vol] 134 mg/dL Normal 30-150 [facility] Comment on above: Result Comment: [place] Cholesterol Education Program Guidelines: TriglycerideNormal: <150 mg/dLBorderline High: 150-199 mg/dLHigh: 200-499 mg/dLVery High: greater than or equal to 500 mg/dL Performed By: #### 4 6606 #### LAB [address] [address] Les Malone M.D. [id number] TYPE AND SCREENon 01-12-2024 TYPE AND SCREEN ABORH: O Positive AB SCREEN: Negative EXPIRATION DATE: 01/15/2024 23:59 EST [facility] XR CHEST PA/APon 01-12-2024 XR CHEST PA/AP [facility] Comment on above: Order Comment: Injur y/Trauma or Illness?:Illness/OtherHow long have you had these symptoms (acute/chronic)?:AcuteReason for exam?:post bronchHistory of cancer?:uSurgeries, chemotherapy, or radiation?:uType of Exam?:InitialAdditional signs and symptoms?:. XR CHEST PA/AP [facility] Comment on above: Order Comment: Injur y/Trauma or Illness?:Illness/OtherHow long have you had these symptoms (acute/chronic)?:AcuteReason for exam?:ETT evalHistory of cancer?:uSurgeries, chemotherapy, or radiation?:uType of Exam?:InitialAdditional signs and symptoms?:. BLOOD CULTURE AEROBIC/ANAERO BICon 01-11-2024 BLOOD CULTURE AEROBIC/ANAEROBIC BLOOD CULTURE No Growth after 5 days [facility] Comment on above: Performed By: #### 4 4014 #### LAB [address] [address] Les Malone M.D. [id number] BLOOD CULTURE AEROBIC/ANAEROBIC BLOOD CULTURE No Growth after 5 days [facility] Comment on above: Performed By: #### 4 4014 #### LAB [address] [address] Les Malone M.D. [id number] CBCon 01-11-2024 AUTO NRBC 0.3 % [facility] Comment on above: Performed By: #### 4 5218 #### LAB [address] [address] Les Malone M.D. [id number] AUTO NRBC ABS COUNT 0.08 K/mcL High 0.00-0.00 [facility] Comment on above: Performed By: #### 4 5218 #### LAB [address] [address] Les Malone M.D. [id number] Erythrocyte distribution width (RBC) [Ratio] 20.8 % High 11.6-14.8 [facility] Comment on above: Performed By: #### 4 5218 #### LAB [address] [address] Les Malone M.D. [id number] Hematocrit (Bld) [Volume fraction] 24.5 % Low 41.0-53.0 [facility] Comment on above: Performed By: #### 4 5218 #### LAB [address] [address] Les Malone M.D. [id number] Hemoglobin (Bld) [Mass/Vol] 7.4 g/dL Low 13.5-17.5 [facility] Comment on above: Performed By: #### 4 5218 #### LAB [address] [address] Les Malone M.D. [id number] MCH (RBC) [Entitic mass] 29.8 pg Normal 26.0-34.0 [facility] Comment on above: Performed By: #### 4 5218 #### LAB [address] [address] Les Malone M.D. [id number] MCV (RBC) [Entitic vol] 98.8 fL Normal 80.0-100.0 [facility] Comment on above: Performed By: #### 4 5218 #### LAB [address] [address] Les Malone M.D. [id number] MEAN CORPUSCULAR HEMOGLOBIN CONC 30.2 g/dL Low 31.0-37.0 [facility] Comment on above: Performed By: #### 4 5218 #### LAB [address] [address] Les Malone M.D. [id number] Platelet mean volume (Bld) [Entitic vol] 10.5 fL Normal 9.4-12.4 [facility] Comment on above: Performed By: #### 4 5218 #### LAB [address] [address] Les Malone M.D. [id number] Platelets (Bld) [#/Vol] 438 10*3/uL High 150-400 [facility] Comment on above: Performed By: #### 4 5218 #### LAB [address] [address] Les Malone M.D. [id number] RBC (Bld) [#/Vol] 2.48 10*6/uL Low 4.50-5.90 [facility] Comment on above: Performed By: #### 4 [id number] #### LAB [address] [address] Les Malone M.D. [id number] WBC (Bld) [#/Vol] 26.40 10*3/uL High 4.50-11.00 [facility] Comment on above: Performed By: #### 4 5218 #### LAB [address] [place], [place] [address] Les Malone M.D. [id number] CHEM 701-11-2024 Anion gap [Moles/Vol] 14 mmol/L Normal 10-20 [facility] Comment on above: Order Comment: [facility] has implemented the eGFR calculation approach that does not have a coefficient for race that conforms to the NKF-ASN Task Force Recommendations. Performed By: #### 4 6953 #### LAB [address] [place], [place] [address] Les Malone M.D. [id number] Chloride [Moles/Vol] 114 mmol/L High 98-108 [facility] Comment on above: Order Comment: [facility] has implemented the eGFR calculation approach that does not have a coefficient for race that conforms to the NKF-ASN Task Force Recommendations. Performed By: #### 4 6953 #### LAB [address] [address] Les Malone M.D. [id number] Creatinine [Mass/Vol] 0.93 mg/dL Normal 0.50-1.30 [facility] Comment on above: Order Comment: [facility] has implemented the eGFR calculation approach that does not have a coefficient for race that conforms to the NKF-ASN Task Force Recommendations. Performed By: #### 4 6953 #### LAB [address] [place], [place] [address] Les Malone M.D. [id number] EGFR 103 mL/min/1.73 m2 Normal >=60 [facility] Comment on above: Order Comment: [facility] has implemented the eGFR calculation approach that does not have a coefficient for race that conforms to the NKF-ASN Task Force Recommendations. Result Comment: Fanta mated GFR was calculated using the 2020 CKD-EPI creatinine equation. Performed By: #### 4 6953 #### LAB [address] [address] Les Malone M.D. [id number] Glucose [Mass/Vol] 160 mg/dL High 65-99 [facility] Comment on above: Order Comment: [facility] has implemented the eGFR calculation approach that does not have a coefficient for race that conforms to the NKF-ASN Task Force Recommendations. Performed By: #### 4 6953 ####[facility] [address] [address] Les Malone M.D. [id number] HCO3 (Bld) [Moles/Vol] 25 mmol/L Normal 21-32 [facility] Comment on above: Order Comment: [facility] has implemented the eGFR calculation approach that does not have a coefficient for race that conforms to the NKF-ASN Task Force Recommendations. Performed By: #### 4 6953 #### LAB [address] [address] Les Malone M.D. [id number] Potassium [Moles/Vol] 4.2 mmol/L Normal 3.5-5.1 [facility] Comment on above: Order Comment: [facility] has implemented the eGFR calculation approach that does not have a coefficient for race that conforms to the NKF-ASN Task Force Recommendations. Performed By: #### 4 6953 ####[facility] [address] [address] Les Malone M.D. [id number] Sodium [Moles/Vol] 149 mmol/L High 135-145 [facility] Comment on above: Order Comment: [facility] has implemented the eGFR calculation approach that does not have a coefficient for race that conforms to the NKF-ASN Task Force Recommendations. Performed By: #### 4 6953 ####[facility] [address] [address] Les Malone M.D. [id number] Urea nitrogen [Mass/Vol] 54 mg/dL High 8-25 [facility] Comment on above: Order Comment: [facility] has implemented the eGFR calculation approach that does not have a coefficient for race that conforms to the NKF-ASN Task Force Recommendations. Performed By: #### 4 6953 #### LAB [address] [place], [place] [address] Les Malone M.D. [id number] Urea nitrogen/Creatinine [Mass ratio] 58.1 mg/mg High 10.0-20.0 [facility] Comment on above: Order Comment: [facility] has implemented the eGFR calculation approach that does not have a coefficient for race that conforms to the NKF-ASN Task Force Recommendations. Performed By: #### 4 6953 #### LAB [address] [address] Les Malone M.D. [id number] ECHOCARDIOGRAM COMPLETE W CO NTRASTon 01-11-2024 ECHOCARDIOGRAM COMPLETE W CONTRAST Normal [facility] MAGNESIUM LEVELon 01-11-2024 Magnesium [Mass/Vol] 2.5 mg/dL High 1.6-2.4 [facility] Comment on above: Performed By: #### 4 6109 #### LAB [address] [address] Les Malone M.D. [id number] MRSA DNA AMPLIFIED PROBEon 0 01-11-2024 MRSA DNA AMPLIFIED PROBE Negative Normal Not Detected, MRSA NEGATIVE [facility] Comment on above: Performed By: #### 4 8061 #### LAB [address] [address] Les Malone M.D. [id number] PHOSPHORUSon 01-11-2024 Phosphate [Mass/Vol] 3.9 mg/dL Normal 2.7-4.5 [facility] Comment on above: Performed By: #### 4 6299 #### LAB [address] [id number] Les Malone M.D. [id number] POC ARTERIAL BLOOD GAS PANEL -[facility] 01-11-2024 [id number] 303.1 mm Hg Normal [facility] Comment on above: Performed By: #### 4 8716 ####[facility] [address] [address] Les Malone M.D. [id number] BASE EXCESS, ARTERIAL 3.5 High -2.0-2.0 [facility] Comment on above: Performed By: #### 4 8716 ####[facility] [address] [address] Les Malone M.D. [id number] FIO2 80 Normal [facility] Comment on above: Performed By: #### 4 8716 #### LAB [address] [address] Les Malone M.D. [id number] HCO3 (Bld) [Moles/Vol] 27.0 mmol/L High 22.0-26.0 [facility] Comment on above: Performed By: #### 4 8716 #### LAB [address] [address] Les Malone M.D. [id number] Hematocrit (Bld) [Volume fraction] 23.1 % Low 41.0-53.0 [facility] Comment on above: Performed By: #### 4 8716 #### LAB [address] [address] Les Malone M.D. [id number] Hemoglobin (Bld) [Mass/Vol] 7.5 g/dL Low 13.5-17.5 [facility] Comment on above: Performed By: #### 4 8716 #### LAB [address] [address] Les Malone M.D. [id number] O2 SATURATION ARTERIAL > High 92.0-99.0 [facility] Comment on above: Performed By: #### 4 8716 #### LAB [address] [address] Les Malone M.D. [id number] PCO2 ARTERIAL 35.2 mm Hg Normal 35.0-45.0 [facility] Comment on above: Performed By: #### 4 8716 #### LAB [address] [address] Les Malone M.D. [id number] PEEP RAD 8 [facility] Comment on above: Performed By: #### 4 8716 ####[facility] [address] [address] Les Malone M.D. [id number] PH ARTERIAL 7.49 High 7.35-7.45 [facility] Comment on above: Performed By: #### 4 8716 ####[facility] [address] [address] Les Malone M.D. [id number] PO2 ARTERIAL 204 mm Hg High 80-100 [facility] Comment on above: Performed By: #### 4 8716 ####[facility] [address] [address] Les Malone M.D. [id number] RESP RATE RAD 22 [facility] Comment on above: Performed By: #### 4 8716 ####[facility] [address] [address] Les Malone M.D. [id number] SPECIMEN SOURCE RADIANCE Not specified [facility] Comment on above: Performed By: #### 4 8716 ####[facility] [address] [address] Les Malone M.D. [id number] TIDAL VOLUME RAD 480 [facility] Comment on above: Performed By: #### 4 8716 ####[facility] [address] [address] Les Malone M.D. [id number] POC GLUCOSE [facility] 024 Glucose [Mass/Vol] 177 mg/dL High 65-99 [facility] Comment on above: Performed By: #### 4 6932 ####[facility] [address] [address] Les Malone M.D. [id number] Glucose [Mass/Vol] 199 mg/dL High 65-99 [facility] Comment on above: Performed By: #### 4 6932 ####[facility] [address] [address] Les Malone M.D. [id number] Glucose [Mass/Vol] 177 mg/dL High [address] [place] [address] Comment on above: Performed By: #### 4 6932 #### LAB [address] [address] Les Malone M.D. [id number] Glucose [Mass/Vol] 169 mg/dL [address] Comment on above: Performed By: #### 4 6932 ####[facility] [address] [address] Les Malone M.D. [id number] Glucose [Mass/Vol] 161 mg/dL [address] Comment on above: Performed By: #### 4 6932 #### LAB [address] [address] Les Malone M.D. [id number] Glucose [Mass/Vol] 185 mg/dL [address] Comment on above: Performed By: #### 4 6932 #### LAB [address] [address] Les Malone M.D. [id number] SPUTUM AEROBIC CULTUREon SPUTUM AEROBIC CULTURE RESPIRATORY CULTURE Normal Wally after 48 hrs GRAM STAIN RESULT Many WBC Rare Epithelial Cells No Organisms Seen Normal [facility] Comment on above: Performed By: #### 4 4046 ####[facility] [address] [place] [address] Yonny Toro M.D. [id number] URINALYSISon 01-11-2024 BACTERIA, URINE Rare Abnormal None Seen [facility] Comment on above: Order Comment: Micro scopic examination is performed on all urinalysis samples and only positive findings are reported. The test for blood on the chemical analytic portion of urinalysis may also be positive due to hemoglobinuria and myoglobinuria and if red blood cells are present they are quantified by microscopic examination. Performed By: #### 4 6625 #### LAB [address] [address] Les Malone M.D. [id number] BILIRUBIN, URINE Negative Normal Negative [facility] Comment on above: Order Comment: Micro scopic examination is performed on all urinalysis samples and only positive findings are reported. The test for blood on the chemical analytic portion of urinalysis may also be positive due to hemoglobinuria and myoglobinuria and if red blood cells are present they are quantified by microscopic examination. Performed By: #### 4 6625 #### LAB [address] [address] Les Malone M.D. [id number] BLOOD, URINE Negative Normal Negative [facility] Comment on above: Order Comment: Micro scopic examination is performed on all urinalysis samples and only positive findings are reported. The test for blood on the chemical analytic portion of urinalysis may also be positive due to hemoglobinuria and myoglobinuria and if red blood cells are present they are quantified by microscopic examination. Performed By: #### 4 6625 #### LAB [address] [place] [address] Les Malone M.D. [id number] Clarity (U) Cloudy Abnormal Clear [facility] Comment on above: Order Comment: Micro scopic examination is performed on all urinalysis samples and only positive findings are reported. The test for blood on the chemical analytic portion of urinalysis may also be positive due to hemoglobinuria and myoglobinuria and if red blood cells are present they are quantified by microscopic examination. Performed By: #### 4 6625 #### LAB [address] [address] Les Malone M.D. [id number] Color (U) Yellow Normal Colorless, Yellow [facility] Comment on above: Order Comment: Micro scopic examination is performed on all urinalysis samples and only positive findings are reported. The test for blood on the chemical analytic portion of urinalysis may also be positive due to hemoglobinuria and myoglobinuria and if red blood cells are present they are quantified by microscopic examination. Performed By: #### 4 6625 #### LAB [address] [address] Les Malone M.D. [id number] Glucose Ql (U) Negative Normal Negative [facility] Comment on above: Order Comment: Micro scopic examination is performed on all urinalysis samples and only positive findings are reported. The test for blood on the chemical analytic portion of urinalysis may also be positive due to hemoglobinuria and myoglobinuria and if red blood cells are present they are quantified by microscopic examination. Performed By: #### 4 6625 #### LAB [address] [address] Les Malone M.D. [id number] GRANULAR CASTS 6 /lpf High 0-0 [facility] Comment on above: Order Comment: Micro scopic examination is performed on all urinalysis samples and only positive findings are reported. The test for blood on the chemical analytic portion of urinalysis may also be positive due to hemoglobinuria and myoglobinuria and if red blood cells are present they are quantified by microscopic examination. Performed By: #### 4 6625 ####[facility] [address] [place] [address] Les Malone M.D. [id number] Hyaline casts LM Ql (Urine sed) 3-5 Abnormal 0-2 [facility] Comment on above: Order Comment: Micro scopic examination is performed on all urinalysis samples and only positive findings are reported. The test for blood on the chemical analytic portion of urinalysis may also be positive due to hemoglobinuria and myoglobinuria and if red blood cells are present they are quantified by microscopic examination. Performed By: #### 4 6625 ####[facility] [address] [place] [address] Les Malone M.D. [id number] Ketones Ql (U) Negative Normal Negative [facility] Comment on above: Order Comment: Micro scopic examination is performed on all urinalysis samples and only positive findings are reported. The test for blood on the chemical analytic portion of urinalysis may also be positive due to hemoglobinuria and myoglobinuria and if red blood cells are present they are quantified by microscopic examination. Performed By: #### 4 6625 #### LAB [address] [address] Les Malone M.D. [id number] Leukocyte esterase Test strip Ql (U) Trace Abnormal Negative [facility] Comment on above: Order Comment: Micro scopic examination is performed on all urinalysis samples and only positive findings are reported. The test for blood on the chemical analytic portion of urinalysis may also be positive due to hemoglobinuria and myoglobinuria and if red blood cells are present they are quantified by microscopic examination. Performed By: #### 4 6625 #### LAB [address] [address] Les Malone M.D. [id number] MUCUS, URINE Rare Normal None Seen, Rare [facility] Comment on above: Order Comment: Micro scopic examination is performed on all urinalysis samples and only positive findings are reported. The test for blood on the chemical analytic portion of urinalysis may also be positive due to hemoglobinuria and myoglobinuria and if red blood cells are present they are quantified by microscopic examination. Performed By: #### 4 6625 #### LAB [address] [address] Les Malone M.D. [id number] NITRITE, URINE Negative Normal Negative [facility] Comment on above: Order Comment: Micro scopic examination is performed on all urinalysis samples and only positive findings are reported. The test for blood on the chemical analytic portion of urinalysis may also be positive due to hemoglobinuria and myoglobinuria and if red blood cells are present they are quantified by microscopic examination. Performed By: #### 4 6625 #### LAB [address] [address] Les Malone M.D. [id number] pH (U) 5.5 [pH] Normal 5.0-7.0 [facility] Comment on above: Order Comment: Micro scopic examination is performed on all urinalysis samples and only positive findings are reported. The test for blood on the chemical analytic portion of urinalysis may also be positive due to hemoglobinuria and myoglobinuria and if red blood cells are present they are quantified by microscopic examination. Performed By: #### 4 6625 #### LAB [address] [address] Les Malone M.D. [id number] Protein (U) [Mass/Vol] 30 mg/dL Abnormal Negative [facility] Comment on above: Order Comment: Micro scopic examination is performed on all urinalysis samples and only positive findings are reported. The test for blood on the chemical analytic portion of urinalysis may also be positive due to hemoglobinuria and myoglobinuria and if red blood cells are present they are quantified by microscopic examination. Result Comment: Fals e positive results may occur in urines with large amounts of hemoglobin, pH greater than 8.0, contrast medium, or disinfectants including ammonium compounds. Performed By: #### 4 6625 #### LAB [address] [place], [place] [address] Les Malone M.D. [id number] RENAL EPITHELIAL < High 0-0 [facility] Comment on above: Order Comment: Micro scopic examination is performed on all urinalysis samples and only positive findings are reported. The test for blood on the chemical analytic portion of urinalysis may also be positive due to hemoglobinuria and myoglobinuria and if red blood cells are present they are quantified by microscopic examination. Performed By: #### 4 6625 #### LAB [address] [place], [place] [address] Les Malone M.D. [id number] Specific gravity (U) [Rel density] 1.034 High 1.005-1.025 [facility] Comment on above: Order Comment: Micro scopic examination is performed on all urinalysis samples and only positive findings are reported. The test for blood on the chemical analytic portion of urinalysis may also be positive due to hemoglobinuria and myoglobinuria and if red blood cells are present they are quantified by microscopic examination. Performed By: #### 4 6625 #### LAB [address] [place], [place] [address] Les Malone M.D. [id number] SQUAMOUS EPITHELIAL 3 /hpf Normal 0-4 [facility] Comment on above: Order Comment: Micro scopic examination is performed on all urinalysis samples and only positive findings are reported. The test for blood on the chemical analytic portion of urinalysis may also be positive due to hemoglobinuria and myoglobinuria and if red blood cells are present they are quantified by microscopic examination. Performed By: #### 4 6625 #### LAB [address] [id number] Les Malone M.D. [id number] TRANSITIONAL EPITHELIAL < Normal 0-1 [facility] Comment on above: Order Comment: Micro scopic examination is performed on all urinalysis samples and only positive findings are reported. The test for blood on the chemical analytic portion of urinalysis may also be positive due to hemoglobinuria and myoglobinuria and if red blood cells are present they are quantified by microscopic examination. Performed By: #### 4 6625 #### LAB [address] [address] Les Malone M.D. [id number] UROBILINOGEN, URINE >=4.0 Abnormal <2.0 [facility] Comment on above: Order Comment: Micro scopic examination is performed on all urinalysis samples and only positive findings are reported. The test for blood on the chemical analytic portion of urinalysis may also be positive due to hemoglobinuria and myoglobinuria and if red blood cells are present they are quantified by microscopic examination. Performed By: #### 4 6625 #### LAB [address] [address] Les Malone M.D. [id number] WBC LM.HPF (Urine sed) [#/Area] 9 /[HPF] High 0-5 [facility] Comment on above: Order Comment: Micro scopic examination is performed on all urinalysis samples and only positive findings are reported. The test for blood on the chemical analytic portion of urinalysis may also be positive due to hemoglobinuria and myoglobinuria and if red blood cells are present they are quantified by microscopic examination. Performed By: #### 4 6625 #### LAB [address] [address] Les Malone M.D. [id number] URINE AEROBIC CULTUREon 09-0 URINE AEROBIC CULTURE URINE CULTURE No Growth (<1,000 CFU/mL) [facility] Comment on above: Performed By: #### 4 4053 ####[facility] [address] [address] Yonny Toro M.D. [id number] XR CHEST PA/APon 01-11-2024 XR CHEST PA/AP Normal [facility] Comment on above: Order Comment: Injur y/Trauma or Illness?:Illness/OtherHow long have you had these symptoms (acute/chronic)?:AcuteReason for exam?:ncreased leukocytosisHistory of cancer?:uSurgeries, chemotherapy, or radiation?:uType of Exam?:UnknownAdditional signs and symptoms?:ncreased leukocytosis CALCIUM, IONIZEDon CALCIUM IONIZED 4.3 mg/dL Low 4.5-5.3 [facility] Comment on above: Performed By: #### 4 5190 #### LAB [address] [address] Les Malone M.D. [id number] CBCon 01-10-2024 AUTO NRBC 1.3 % Normal [facility] Comment on above: Performed By: #### 4 [id number] #### LAB [address] [address] Les Malone M.D. [id number] AUTO NRBC ABS COUNT 0.29 K/mcL High 0.00-0.00 [facility] Comment on above: Performed By: #### 4 [id number] #### LAB [address] [address] Les Malone M.D. [id number] Erythrocyte distribution width (RBC) [Ratio] 19.3 % High 11.6-14.8 [facility] Comment on above: Performed By: #### 4 [id number] #### LAB [address] [address] Les Malone M.D. [id number] Hematocrit (Bld) [Volume fraction] 25.2 % Low 41.0-53.0 [facility] Comment on above: Performed By: #### 4 [id number] #### LAB [address] [address] Les Malone M.D. [id number] Hemoglobin (Bld) [Mass/Vol] 7.6 g/dL Low 13.5-17.5 [facility] Comment on above: Performed By: #### 4 [id number] #### LAB [address] [address] Les Malone M.D. [id number] MCH (RBC) [Entitic mass] 29.7 pg Normal 26.0-34.0 [facility] Comment on above: Performed By: #### 4 [id number] #### LAB [address] [address] Les Malone M.D. [id number] MCV (RBC) [Entitic vol] 98.4 fL Normal 80.0-100.0 [facility] Comment on above: Performed By: #### 4 [id number] #### LAB [address] [address] eLs Malone M.D. [id number] MEAN CORPUSCULAR HEMOGLOBIN CONC 30.2 g/dL Low 31.0-37.0 [facility] Comment on above: Performed By: #### 4 [id number] #### LAB [address] [address] Les Malone M.D. [id number] Platelet mean volume (Bld) [Entitic vol] 10.5 fL Normal 9.4-12.4 [facility] Comment on above: Performed By: #### 4 [id number] #### LAB [address] [address] Les Malone M.D. [id number] Platelets (Bld) [#/Vol] 509 10*3/uL High 150-400 [facility] Comment on above: Performed By: #### 4 [id number] #### LAB [address] [address] Les Malone M.D. [id number] RBC (Bld) [#/Vol] 2.56 10*6/uL Low 4.50-5.90 [facility] Comment on above: Performed By: #### 4 [id number] #### LAB [address] [place], [place] [address] Les Malone M.D. [id number] WBC (Bld) [#/Vol] 23.13 10*3/uL High 4.50-11.00 [facility] [place] Comment on above: Performed By: #### 4 [id number] #### LAB [address] [address] Les Malone M.D. [id number] CHEM 7on 01-10-2024 Anion gap [Moles/Vol] 16 mmol/L Normal 10-20 [facility] Comment on above: Order Comment: [facility] has implemented the eGFR calculation approach that does not have a coefficient for race that conforms to the NKF-ASN Task Force Recommendations. Performed By: #### 4 6953 #### LAB [address] [address] Les Malone M.D. [id number] Chloride [Moles/Vol] 111 mmol/L High 98-108 [facility] [place] Comment on above: Order Comment: [facility] has implemented the eGFR calculation approach that does not have a coefficient for race that conforms to the NKF-ASN Task Force Recommendations. Performed By: #### 4 6953 #### LAB [address] [address] Les Malone M.D. [id number] Creatinine [Mass/Vol] 0.98 mg/dL Normal 0.50-1.30 [facility] Comment on above: Order Comment: [facility] has implemented the eGFR calculation approach that does not have a coefficient for race that conforms to the NKF-ASN Task Force Recommendations. Performed By: #### 4 6953 #### LAB [address] [address] Les Malone M.D. [id number] EGFR 97 mL/min/1.73 m2 Normal >=60 [facility] Comment on above: Order Comment: [facility] has implemented the eGFR calculation approach that does not have a coefficient for race that conforms to the NKF-ASN Task Force Recommendations. Result Comment: Fanta stephens GFR was calculated using the 2020 CKD-EPI creatinine equation. Performed By: #### 4 6953 #### LAB [address] [id number] Les Malone M.D. [id number] Glucose [Mass/Vol] 167 mg/dL High 65-99 [facility] Comment on above: Order Comment: [facility] has implemented the eGFR calculation approach that does not have a coefficient for race that conforms to the NKF-ASN Task Force Recommendations. Performed By: #### 4 6953 #### LAB [address] [address] Les Malone M.D. [id number] HCO3 (Bld) [Moles/Vol] 25 mmol/L Normal 21-32 [facility] Comment on above: Order Comment: [facility] has implemented the eGFR calculation approach that does not have a coefficient for race that conforms to the NKF-ASN Task Force Recommendations. Performed By: #### 4 6953 #### LAB [address] [address] Les Malone M.D. [id number] Potassium [Moles/Vol] 4.5 mmol/L Normal 3.5-5.1 [facility] Comment on above: Order Comment: [facility] has implemented the eGFR calculation approach that does not have a coefficient for race that conforms to the NKF-ASN Task Force Recommendations. Performed By: #### 4 6953 #### LAB [address] [address] Les Malone M.D. [id number] Sodium [Moles/Vol] 147 mmol/L High 135-145 [facility] Comment on above: Order Comment: [facility] has implemented the eGFR calculation approach that does not have a coefficient for race that conforms to the NKF-ASN Task Force Recommendations. Performed By: #### 4 6953 #### LAB [address] [place], [place] [address] Les Malone M.D. [id number] Urea nitrogen [Mass/Vol] 54 mg/dL High 8-25 [facility] Comment on above: Order Comment: [facility] has implemented the eGFR calculation approach that does not have a coefficient for race that conforms to the NKF-ASN Task Force Recommendations. Performed By: #### 4 6953 #### LAB [address] [place], [place] [address] Les Malone M.D. [id number] Urea nitrogen/Creatinine [Mass ratio] 55.1 mg/mg High 10.0-20.0 [facility] Comment on above: Order Comment: [facility] has implemented the eGFR calculation approach that does not have a coefficient for race that conforms to the NKF-ASN Task Force Recommendations. Performed By: #### 4 6953 #### LAB [address] [address] Les Malone M.D. [id number] Anion gap [Moles/Vol] 14 mmol/L Normal 10-20 [facility] Comment on above: Order Comment: [facility] has implemented the eGFR calculation approach that does not have a coefficient for race that conforms to the NKF-ASN Task Force Recommendations. Performed By: #### 4 6953 #### LAB [address] [address] Les Malone M.D. [id number] Chloride [Moles/Vol] 110 mmol/L High 98-108 [facility] [place] Comment on above: Order Comment: [facility] has implemented the eGFR calculation approach that does not have a coefficient for race that conforms to the NKF-ASN Task Force Recommendations. Performed By: #### 4 6953 ####[facility] LAB [address] [place], [place] [address] Les Malone M.D. [id number] Creatinine [Mass/Vol] 0.93 mg/dL Normal 0.50-1.30 [facility] Comment on above: Order Comment: [facility] has implemented the eGFR calculation approach that does not have a coefficient for race that conforms to the NKF-ASN Task Force Recommendations. Performed By: #### 4 6953 ####[facility] LAB [address] [place], [place] [address] Les Malone M.D. [id number] EGFR 103 mL/min/1.73 m2 Normal >=60 [facility] Comment on above: Order Comment: [facility] has implemented the eGFR calculation approach that does not have a coefficient for race that conforms to the NKF-ASN Task Force Recommendations. Result Comment: Fanta mated GFR was calculated using the 2020 CKD-EPI creatinine equation. Performed By: #### 4 6953 ####[facility] LAB [address] [address] Les Malone M.D. [id number] Glucose [Mass/Vol] 156 mg/dL High 65-99 [facility] Comment on above: Order Comment: [facility] has implemented the eGFR calculation approach that does not have a coefficient for race that conforms to the NKF-ASN Task Force Recommendations. Performed By: #### 4 6953 #### LAB [address] [address] Les Malone M.D. [id number] HCO3 (Bld) [Moles/Vol] 26 mmol/L Normal 21-32 [facility] Comment on above: Order Comment: [facility] has implemented the eGFR calculation approach that does not have a coefficient for race that conforms to the NKF-ASN Task Force Recommendations. Performed By: #### 4 6953 #### LAB [address] [place], [place] [address] Les Malone M.D. [id number] Potassium [Moles/Vol] 4.5 mmol/L Normal 3.5-5.1 [facility] Comment on above: Order Comment: [facility] has implemented the eGFR calculation approach that does not have a coefficient for race that conforms to the NKF-ASN Task Force Recommendations. Performed By: #### 4 6953 #### LAB [address] [place], [place] [address] Les Malone M.D. [id number] Sodium [Moles/Vol] 145 mmol/L Normal 135-145 [facility] Comment on above: Order Comment: [facility] has implemented the eGFR calculation approach that does not have a coefficient for race that conforms to the NKF-ASN Task Force Recommendations. Performed By: #### 4 6953 #### LAB [address] [place], [place] [address] Les Malone M.D. [id number] Urea nitrogen [Mass/Vol] 55 mg/dL High 8-25 [facility] Comment on above: Order Comment: [facility] has implemented the eGFR calculation approach that does not have a coefficient for race that conforms to the NKF-ASN Task Force Recommendations. Performed By: #### 4 6953 #### LAB [address] [address] Les Malone M.D. [id number] Urea nitrogen/Creatinine [Mass ratio] 59.1 mg/mg High 10.0-20.0 [facility] Comment on above: Order Comment: [facility] has implemented the eGFR calculation approach that does not have a coefficient for race that conforms to the NKF-ASN Task Force Recommendations. Performed By: #### 4 6953 #### LAB [address] [place], [place] [address] Les Malone M.D. [id number] CONSULTon 01-10-2024 CONSULT [facility] CONSULT [facility] MAGNESIUM LEVELon 01-10-2024 Magnesium [Mass/Vol] 2.4 mg/dL Normal 1.6-2.4 [facility] Comment on above: Performed By: #### 4 6109 #### LAB [address] [place], [place] [address] Les Malone M.D. [id number] Magnesium [Mass/Vol] 2.6 mg/dL High 1.6-2.4 [facility] Comment on above: Performed By: #### 4 6109 #### LAB [address] [place], [place] [address] Les Malone M.D. [id number] PHOSPHORUSon 01-10-2024 Phosphate [Mass/Vol] 3.6 mg/dL Normal 2.7-4.5 [facility] Comment on above: Performed By: #### 4 6299 ####[facility] LAB [address] [address] Les Malone M.D. [id number] Phosphate [Mass/Vol] 3.7 mg/dL Normal 2.7-4.5 [facility] Comment on above: Performed By: #### 4 6299 ####[facility] LAB [address] [address] Les Malone M.D. [id number] POC ARTERIAL BLOOD GAS PANEL -[facility] 01-10-2024 [id number] 192.9 mm Hg Normal [facility] Comment on above: Performed By: #### 4 8716 ####[facility] LAB [address] [address] Les Malone M.D. [id number] BASE EXCESS, ARTERIAL 4.1 High -2.0-2.0 [facility] Comment on above: Performed By: #### 4 8716 ####[facility] LAB [address] [address] Les Malone M.D. [id number] FIO2 50 Normal [facility] Comment on above: Performed By: #### 4 8716 ####[facility] LAB [address] [address] Les Malone M.D. [id number] HCO3 (Bld) [Moles/Vol] 27.7 mmol/L High 22.0-26.0 [facility] Comment on above: Performed By: #### 4 8716 ####[facility] LAB [address] [address] Les Malone M.D. [id number] Hematocrit (Bld) [Volume fraction] 26.8 % Low 41.0-53.0 [facility] Comment on above: Performed By: #### 4 8716 ####[facility] LAB [address] [address] Les Malone M.D. [id number] Hemoglobin (Bld) [Mass/Vol] 8.7 g/dL Low 13.5-17.5 [facility] Comment on above: Performed By: #### 4 8716 #### LAB [address] [address] Les Malone M.D. [id number] Oxygen saturation in Blood 98.7 % Normal 92.0-99.0 [facility] Comment on above: Performed By: #### 4 8716 #### LAB [address] [address] Les Malone M.D. [id number] PCO2 ARTERIAL 36.7 mm Hg Normal 35.0-45.0 [facility] Comment on above: Performed By: #### 4 8716 #### LAB [address] [address] Les Malone M.D. [id number] PEEP RAD 8 [facility] Comment on above: Performed By: #### 4 8716 #### LAB [address] [address] Les Malone M.D. [id number] PH ARTERIAL 7.49 High 7.35-7.45 [facility] Comment on above: Performed By: #### 4 8716 #### LAB [address] [address] Les Malone M.D. [id number] PO2 ARTERIAL 106 mm Hg High 80-100 [facility] Comment on above: Performed By: #### 4 8716 #### LAB [address] [address] Les Malone M.D. [id number] RESP RATE RAD 22 [facility] Comment on above: Performed By: #### 4 8716 #### LAB [address] [address] Les Malone M.D. [id number] SPECIMEN SOURCE RADIANCE Not specified [facility] Comment on above: Performed By: #### 4 8716 #### LAB [address] [address] Les Malone M.D. [id number] TIDAL VOLUME RAD 480 [facility] Comment on above: Performed By: #### 4 8716 ####[facility] LAB [address] [id number] Les Malone M.D. [id number] 88.7 mm Hg Normal [facility] Comment on above: Performed By: #### 4 8716 ####[facility] LAB [address] [address] Les Malone M.D. [id number] BASE EXCESS, ARTERIAL 3.6 High -2.0-2.0 [facility] Comment on above: Performed By: #### 4 8716 ####[facility] LAB [address] [address] Les Malone M.D. [id number] CALCIUM IONIZED 4.4 mg/dL Low 4.5-5.3 [facility] Comment on above: Performed By: #### 4 8716 #### LAB [address] [address] Les Malone M.D. [id number] CARBOXYHEMOGLOBIN 1.3 % of total Hb Normal <=1.5 [facility] Comment on above: Result Comment: Refe rence Ranges:Suburban Non-smokers: <1.5%Smokers: 1.5-5.0%Heavy Smokers: 5.0-9.0% Performed By: #### 4 8716 #### LAB [address] [address] Les Malone M.D. [id number] Chloride [Moles/Vol] 111 mmol/L High 98-108 [facility] Comment on above: Performed By: #### 4 8716 ####[facility] LAB [address] [address] Les Malone M.D. [id number] FIO2 60 Normal [facility] Comment on above: Performed By: #### 4 8716 ####[facility] LAB [address] [address] Les Malone M.D. [id number] Glucose [Mass/Vol] 175 mg/dL High 65-99 [facility] Comment on above: Performed By: #### 4 8716 #### LAB [address] [address] Les Malone M.D. [id number] HCO3 (Bld) [Moles/Vol] 28.3 mmol/L High 22.0-26.0 [facility] Comment on above: Performed By: #### 4 8716 #### LAB [address] [address] Les Malone M.D. [id number] Hematocrit (Bld) [Volume fraction] 24.6 % Low 41.0-53.0 [facility] Comment on above: Performed By: #### 4 8716 #### LAB [address] [address] Les Malone M.D. [id number] Hemoglobin (Bld) [Mass/Vol] 8.0 g/dL Low 13.5-17.5 [facility] Comment on above: Performed By: #### 4 8716 #### LAB [address] [address] Les Malone M.D. [id number] LACTIC ACID, WHOLE BLOOD 1.4 mmol/L Normal 0.6-2.0 [facility] Comment on above: Performed By: #### 4 8716 #### LAB [address] [address] Les Malone M.D. [id number] METHEMOGLOBIN < Normal 0.0-2.0 [facility] Comment on above: Performed By: #### 4 8716 #### LAB [address] [address] Les Malone M.D. [id number] O2 SATURATION ARTERIAL > High 92.0-99.0 [facility] Comment on above: Performed By: #### 4 8716 #### LAB [address] [address] Les Malone M.D. [id number] O2HB 99.0 % High 94.0-98.0 [facility] Comment on above: Performed By: #### 4 8716 ####[facility] LAB [address] [address] Les Malone M.D. [id number] PCO2 ARTERIAL 42.7 mm Hg Normal 35.0-45.0 [facility] Comment on above: Performed By: #### 4 8716 ####[facility] LAB [address] [address] Les Malone M.D. [id number] PEEP RAD 8 [facility] Comment on above: Performed By: #### 4 8716 ####[facility] LAB [address] [address] Les Malone M.D. [id number] PH ARTERIAL 7.43 Normal 7.35-7.45 [facility] Comment on above: Performed By: #### 4 8716 ####[facility] LAB [address] [address] Les Malone M.D. [id number] PO2 ARTERIAL 272 mm Hg High 80-100 [facility] Comment on above: Performed By: #### 4 8716 ####[facility] LAB [address] [address] Les Malone M.D. [id number] Potassium [Moles/Vol] 4.4 mmol/L Normal 3.5-5.1 [facility] Comment on above: Performed By: #### 4 8716 ####[facility] LAB [address] [id number] Les Malone M.D. [id number] RESP RATE RAD 24 [facility] Comment on above: Performed By: #### 4 8716 ####[facility] LAB [address] [address] Les Malone M.D. [id number] Sodium [Moles/Vol] 149 mmol/L High 135-145 [facility] Comment on above: Performed By: #### 4 8716 ####[facility] LAB [address] [address] Les Malone M.D. [id number] SPECIMEN SOURCE RADIANCE Not specified [facility] Comment on above: Performed By: #### 4 8716 #### LAB [address] [address] Les Malone M.D. [id number] TIDAL VOLUME RAD 480 Normal [facility] Comment on above: Performed By: #### 4 8716 ####[facility] LAB [address] [address] Les Malone M.D. [id number] [facility] Glucose [Mass/Vol] 156 mg/dL High [address] [place] [address] Comment on above: Performed By: #### 4 6932 #### LAB [address] [address] Les Malone M.D. [id number] Glucose [Mass/Vol] 162 mg/dL [address] Comment on above: Performed By: #### 4 6932 ####[facility] [address] [address] Les Malone M.D. [id number] Glucose [Mass/Vol] 179 mg/dL [address] Comment on above: Performed By: #### 4 6932 #### LAB [address] [address] Les Malone M.D. [id number] Glucose [Mass/Vol] 181 mg/dL [address] Comment on above: Performed By: #### 4 6932 #### LAB [address] [address] Les Malone M.D. [id number] Glucose [Mass/Vol] 172 mg/dL [address] Comment on above: Performed By: #### 4 6932 #### LAB [address] [address] Les Malone M.D. [id number] TEMPORARY PACEMAKERon 2023 TEMPORARY PACEMAKER [facility] TROPONINon 01-10-2024 TROPONIN T DELTA CHANGE INTERPRETATION Probable acute injury or myocardial infarction. [facility] Comment on above: Performed By: #### 4 6608 #### LAB [address] [address] Les Malone M.D. [id number] TROPONIN T DELTA DIFFERENCE 24 ng/L Off scale high < = -/+ 7 change [facility] Comment on above: Performed By: #### 4 6608 #### LAB [address] [address] Les Malone M.D. [id number] TROPONIN T NG/L 38 ng/L Off scale high <=22 [facility] Comment on above: Performed By: #### 4 6608 #### LAB [address] [address] Les Malone M.D. [id number] BASELINE TROPONIN T NG/L 14 ng/L Normal <=22 [facility] Comment on above: Performed By: #### 4 6608 #### LAB [address] [address] Les Malone M.D. [id number] TROPONIN T INTERPRETATION Normal Normal [facility] Comment on above: Performed By: #### 4 6608 #### LAB [address] [address] Les Malone M.D. [id number] XR CHEST PA/APon 01-10-2024 XR CHEST PA/AP Normal [facility] Comment on above: Order Comment: Injur y/Trauma or Illness?:Injury/TraumaHow long have you had these symptoms (acute/chronic)?:AcuteReason for exam?:s/p chest compressionsHistory of cancer?:uSurgeries, chemotherapy, or radiation?:uType of Exam?:InitialMechanism of injury?:chest compressions CBCon 01-09-2024 AUTO NRBC 1.6 % Normal [facility] Comment on above: Performed By: #### 4 [id number] #### LAB [address] [address] Les Malone M.D. [id number] AUTO NRBC ABS COUNT 0.32 K/mcL High 0.00-0.00 [facility] Comment on above: Performed By: #### 4 [id number] #### LAB [address] [address] Les Malone M.D. [id number] Erythrocyte distribution width (RBC) [Ratio] 18.6 % High 11.6-14.8 [facility] Comment on above: Performed By: #### 4 5218 #### LAB [address] [address] Les Malone M.D. [id number] Hematocrit (Bld) [Volume fraction] 24.7 % Low 41.0-53.0 [facility] Comment on above: Performed By: #### 4 5218 #### LAB [address] [address] Les Malone M.D. [id number] Hemoglobin (Bld) [Mass/Vol] 7.6 g/dL Low 13.5-17.5 [facility] Comment on above: Performed By: #### 4 5218 #### LAB [address] [address] Les Malone M.D. [id number] MCH (RBC) [Entitic mass] 29.2 pg Normal 26.0-34.0 [facility] Comment on above: Performed By: #### 4 5218 #### LAB [address] [address] Les Malone M.D. [id number] MCV (RBC) [Entitic vol] 95.0 fL Normal 80.0-100.0 [facility] Comment on above: Performed By: #### 4 5218 #### LAB [address] [address] Les Malone M.D. [id number] MEAN CORPUSCULAR HEMOGLOBIN CONC 30.8 g/dL Low 31.0-37.0 [facility] Comment on above: Performed By: #### 4 5218 #### LAB [address] [address] Les Malone M.D. [id number] Platelet mean volume (Bld) [Entitic vol] 10.2 fL Normal 9.4-12.4 [facility] Comment on above: Performed By: #### 4 5218 #### LAB [address] [address] Les Malone M.D. [id number] Platelets (Bld) [#/Vol] 510 10*3/uL High 150-400 [facility] Comment on above: Performed By: #### 4 5218 #### LAB [address] [address] Les Malone M.D. [id number] RBC (Bld) [#/Vol] 2.60 10*6/uL Low 4.50-5.90 [facility] Comment on above: Performed By: #### 4 5218 #### LAB [address] [address] Les Malone M.D. [id number] WBC (Bld) [#/Vol] 20.40 10*3/uL High 4.50-11.00 [facility] Comment on above: Performed By: #### 4 5218 ####[facility] [address] [address] Les Malone M.D. [id number] CHEM 701-09-2024 Anion gap [Moles/Vol] 14 mmol/L Normal 10-20 [facility] Comment on above: Order Comment: [facility] has implemented the eGFR calculation approach that does not have a coefficient for race that conforms to the NKF-ASN Task Force Recommendations. Performed By: #### 4 6953 #### LAB [address] [address] Les Malone M.D. [id number] Chloride [Moles/Vol] 111 mmol/L High 98-108 [facility] Comment on above: Order Comment: [facility] has implemented the eGFR calculation approach that does not have a coefficient for race that conforms to the NKF-ASN Task Force Recommendations. Performed By: #### 4 6953 #### LAB [address] [address] Les Malone M.D. [id number] Creatinine [Mass/Vol] 0.99 mg/dL Normal 0.50-1.30 [facility] Comment on above: Order Comment: [facility] has implemented the eGFR calculation approach that does not have a coefficient for race that conforms to the NKF-ASN Task Force Recommendations. Performed By: #### 4 6953 #### LAB [address] [address] Les Malone M.D. [id number] EGFR 96 mL/min/1.73 m2 Normal >=60 [facility] Comment on above: Order Comment: [facility] has implemented the eGFR calculation approach that does not have a coefficient for race that conforms to the NKF-ASN Task Force Recommendations. Result Comment: Fanta mated GFR was calculated using the 2020 CKD-EPI creatinine equation. Performed By: #### 4 6953 #### LAB [address] [address] Les Malone M.D. [id number] Glucose [Mass/Vol] 167 mg/dL High 65-99 [facility] Comment on above: Order Comment: [facility] has implemented the eGFR calculation approach that does not have a coefficient for race that conforms to the NKF-ASN Task Force Recommendations. Performed By: #### 4 6953 #### LAB [address] [address] Les Malone M.D. [id number] HCO3 (Bld) [Moles/Vol] 26 mmol/L Normal 21-32 [facility] Comment on above: Order Comment: [facility] has implemented the eGFR calculation approach that does not have a coefficient for race that conforms to the NKF-ASN Task Force Recommendations. Performed By: #### 4 6953 #### LAB [address] [address] Les Malone M.D. [id number] Potassium [Moles/Vol] 4.2 mmol/L Normal 3.5-5.1 [facility] Comment on above: Order Comment: [facility] has implemented the eGFR calculation approach that does not have a coefficient for race that conforms to the NKF-ASN Task Force Recommendations. Performed By: #### 4 6953 #### LAB [address] [place], [place] [address] Les Malone M.D. [id number] Sodium [Moles/Vol] 147 mmol/L High 135-145 [facility] Comment on above: Order Comment: [facility] has implemented the eGFR calculation approach that does not have a coefficient for race that conforms to the NKF-ASN Task Force Recommendations. Performed By: #### 4 6953 #### LAB [address] [place], [place] [address] Les Malone M.D. [id number] Urea nitrogen [Mass/Vol] 59 mg/dL High 8-25 [facility] Comment on above: Order Comment: [facility] has implemented the eGFR calculation approach that does not have a coefficient for race that conforms to the NKF-ASN Task Force Recommendations. Performed By: #### 4 6953 #### LAB [address] [place], [place] [address] Les Malone M.D. [id number] Urea nitrogen/Creatinine [Mass ratio] 59.6 mg/mg High 10.0-20.0 [facility] Comment on above: Order Comment: [facility] has implemented the eGFR calculation approach that does not have a coefficient for race that conforms to the NKF-ASN Task Force Recommendations. Performed By: #### 4 6953 #### LAB [address] [place], [place] [address] Les Malone M.D. [id number] MAGNESIUM LEVELon 01-09-2024 Magnesium [Mass/Vol] 2.5 mg/dL High 1.6-2.4 [facility] [place] Comment on above: Performed By: #### 4 6109 #### LAB [address] [place], [place] [address] Les Malone M.D. [id number] PHOSPHORUSon 01-09-2024 Phosphate [Mass/Vol] 3.2 mg/dL Normal 2.7-4.5 [facility] [place] Comment on above: Performed By: #### 4 6299 ####[facility] [address] [address] Les Malone M.D. [id number] POC ARTERIAL BLOOD GAS PANEL -BRENDA Salome 01-09-2024 [id number] 234.6 mm Hg [facility] Comment on above: Performed By: #### 4 8716 ####[facility] LAB [address] [address] Les Malone M.D. [id number] BASE EXCESS, ARTERIAL 5.1 High -2.0-2.0 [facility] Comment on above: Performed By: #### 4 8716 #### LAB [address] [address] Les Malone M.D. [id number] FIO2 60 [facility] Comment on above: Performed By: #### 4 [id number] #### LAB [address] [address] Les Malone M.D. [id number] HCO3 (Bld) [Moles/Vol] 28.9 mmol/L High 22.0-26.0 [facility] Comment on above: Performed By: #### 4 8716 ####[facility] LAB [address] [address] Les Malone M.D. [id number] Hematocrit (Bld) [Volume fraction] 26.2 % Low 41.0-53.0 [facility] Comment on above: Performed By: #### 4 8716 ####[facility] LAB [address] [address] Les Malone M.D. [id number] Hemoglobin (Bld) [Mass/Vol] 8.6 g/dL Low 13.5-17.5 [facility] Comment on above: Performed By: #### 4 8716 ####[facility] LAB [address] [address] Les Malone M.D. [id number] Oxygen saturation in Blood 99.5 % High 92.0-99.0 [facility] Comment on above: Performed By: #### 4 8716 ####[facility] LAB [address] [address] Les Malone M.D. [id number] PCO2 ARTERIAL 38.0 mm Hg Normal 35.0-45.0 [facility] Comment on above: Performed By: #### 4 8716 ####[facility] LAB [address] [id number] Les Malone M.D. [id number] PEEP RAD 8 [facility] Comment on above: Performed By: #### 4 8716 ####[facility] LAB [address] [address] Les Malone M.D. [id number] PH ARTERIAL 7.49 High 7.35-7.45 [facility] Comment on above: Performed By: #### 4 8716 #### LAB [address] [address] Les Malone M.D. [id number] PO2 ARTERIAL 131 mm Hg High 80-100 [facility] Comment on above: Performed By: #### 4 8716 ####[facility] LAB [address] [address] Les Malone M.D. [id number] RESP RATE RAD 24 [facility] Comment on above: Performed By: #### 4 8716 ####[facility] LAB [address] [address] Les Malone M.D. [id number] SPECIMEN SOURCE RADIANCE Not specified [facility] Comment on above: Performed By: #### 4 8716 ####[facility] LAB [address] [id number] Les Malone M.D. [id number] TIDAL VOLUME RAD 480 [facility] Comment on above: Performed By: #### 4 8716 ####[facility] LAB [address] [id number] Les Malone M.D. [id number] POC GLUCOSE - [facility] 024 Glucose [Mass/Vol] 178 mg/dL High 65-99 [facility] Comment on above: Performed By: #### 4 6932 ####[facility] LAB [address] [address] Les Malone M.D. [id number] Glucose [Mass/Vol] 171 mg/dL [address] Comment on above: Performed By: #### 4 6932 ####[facility] LAB [address] [address] Les Malone M.D. [id number] Glucose [Mass/Vol] 169 mg/dL [address] Comment on above: Performed By: #### 4 6932 #### LAB [address] [address] Les Malone M.D. [id number] Glucose [Mass/Vol] 179 mg/dL [address] Comment on above: Performed By: #### 4 6932 ####[facility] LAB [address] [address] Les Malone M.D. [id number] Glucose [Mass/Vol] 168 mg/dL [address] Comment on above: Performed By: #### 4 6932 #### LAB [address] [address] Les Malone M.D. [id number] Glucose [Mass/Vol] 171 mg/dL [address] Comment on above: Performed By: #### 4 6932 #### LAB [address] [address] Les Malone M.D. [id number] XR CHEST PA/APon 01-09-2024 XR CHEST PA/AP [facility] Comment on above: Order Comment: Injur y/Trauma or Illness?:Illness/OtherHow long have you had these symptoms (acute/chronic)?:AcuteReason for exam?:vent managementHistory of cancer?:uSurgeries, chemotherapy, or radiation?:uType of Exam?:Subsequent/Follow-upAdditional signs and symptoms?:n CBCon 01-08-2024 AUTO NRBC 2.6 % [facility] Comment on above: Performed By: #### 4 [id number] #### LAB [address] [address] Les Malone M.D. [id number] AUTO NRBC ABS COUNT 0.45 K/mcL High 0.00-0.00 [facility] Comment on above: Performed By: #### 4 [id number] #### LAB [address] [address] Les Malone M.D. [id number] Erythrocyte distribution width (RBC) [Ratio] 17.2 % High 11.6-14.8 [facility] Comment on above: Performed By: #### 4 5218 #### LAB [address] [address] Les Malone M.D. [id number] Hematocrit (Bld) [Volume fraction] 25.0 % Low 41.0-53.0 [facility] Comment on above: Performed By: #### 4 [id number] #### LAB [address] [address] Les Malone M.D. [id number] Hemoglobin (Bld) [Mass/Vol] 7.7 g/dL Low 13.5-17.5 [facility] Comment on above: Performed By: #### 4 [id number] #### LAB [address] [address] Les Malone M.D. [id number] MCH (RBC) [Entitic mass] 29.3 pg Normal 26.0-34.0 [facility] Comment on above: Performed By: #### 4 [id number] #### LAB [address] [address] Les Malone M.D. [id number] MCV (RBC) [Entitic vol] 95.1 fL Normal 80.0-100.0 [facility] Comment on above: Performed By: #### 4 [id number] #### LAB [address] [address] Les Malone M.D. [id number] MEAN CORPUSCULAR HEMOGLOBIN CONC 30.8 g/dL Low 31.0-37.0 [facility] Comment on above: Performed By: #### 4 [id number] #### LAB [address] [address] Les Malone M.D. [id number] Platelet mean volume (Bld) [Entitic vol] 10.5 fL Normal 9.4-12.4 [facility] Comment on above: Performed By: #### 4 [id number] #### LAB [address] [address] Les Malone M.D. [id number] Platelets (Bld) [#/Vol] 502 10*3/uL High 150-400 [facility] Comment on above: Performed By: #### 4 [id number] #### LAB [address] [address] Les Malone M.D. [id number] RBC (Bld) [#/Vol] 2.63 10*6/uL Low 4.50-5.90 [facility] Comment on above: Performed By: #### 4 [id number] #### LAB [address] [id number] Les Malone M.D. [id number] WBC (Bld) [#/Vol] 17.17 10*3/uL High 4.50-11.00 [facility] Comment on above: Performed By: #### 4 [id number] #### LAB [address] [address] Les Malone M.D. [id number] CHEM 01-08-2024 Anion gap [Moles/Vol] 13 mmol/L Normal 10-20 [facility] Comment on above: Order Comment: [facility] has implemented the eGFR calculation approach that does not have a coefficient for race that conforms to the NKF-ASN Task Force Recommendations. Performed By: #### 4 6953 #### LAB [address] [address] Les Malone M.D. [id number] Chloride [Moles/Vol] 111 mmol/L High 98-108 [facility] Comment on above: Order Comment: [facility] has implemented the eGFR calculation approach that does not have a coefficient for race that conforms to the NKF-ASN Task Force Recommendations. Performed By: #### 4 6953 #### LAB [address] [place], [place] [address] Les Malone M.D. [id number] Creatinine [Mass/Vol] 1.03 mg/dL Normal 0.50-1.30 [facility] Comment on above: Order Comment: [facility] has implemented the eGFR calculation approach that does not have a coefficient for race that conforms to the NKF-ASN Task Force Recommendations. Performed By: #### 4 6953 #### LAB [address] [place], [place] [address] Les Malone M.D. [id number] EGFR 91 mL/min/1.73 m2 Normal >=60 [facility] Comment on above: Order Comment: [facility] has implemented the eGFR calculation approach that does not have a coefficient for race that conforms to the NKF-ASN Task Force Recommendations. Result Comment: Fanta mated GFR was calculated using the 2020 CKD-EPI creatinine equation. Performed By: #### 4 6953 #### LAB [address] [place], [place] [address] Les Malone M.D. [id number] Glucose [Mass/Vol] 164 mg/dL High 65-99 [facility] Comment on above: Order Comment: [facility] has implemented the eGFR calculation approach that does not have a coefficient for race that conforms to the NKF-ASN Task Force Recommendations. Performed By: #### 4 6953 #### LAB [address] [place], [place] [address] Les Malone M.D. [id number] HCO3 (Bld) [Moles/Vol] 28 mmol/L Normal 21-32 [facility] Comment on above: Order Comment: [facility] has implemented the eGFR calculation approach that does not have a coefficient for race that conforms to the NKF-ASN Task Force Recommendations. Performed By: #### 4 6953 ####[facility] LAB [address] [place], [place] [address] Les Malone M.D. [id number] Potassium [Moles/Vol] 4.2 mmol/L Normal 3.5-5.1 [facility] Comment on above: Order Comment: [facility] has implemented the eGFR calculation approach that does not have a coefficient for race that conforms to the NKF-ASN Task Force Recommendations. Performed By: #### 4 6953 ####[facility] LAB [address] [place], [place] [address] Les Malone M.D. [id number] Sodium [Moles/Vol] 148 mmol/L High 135-145 [facility] Comment on above: Order Comment: [facility] has implemented the eGFR calculation approach that does not have a coefficient for race that conforms to the NKF-ASN Task Force Recommendations. Performed By: #### 4 6953 #### LAB [address] [address] Les Malone M.D. [id number] Urea nitrogen [Mass/Vol] 68 mg/dL High 8-25 [facility] Comment on above: Order Comment: [facility] has implemented the eGFR calculation approach that does not have a coefficient for race that conforms to the NKF-ASN Task Force Recommendations. Performed By: #### 4 6953 #### LAB [address] [place], [place] [address] Les Malone M.D. [id number] Urea nitrogen/Creatinine [Mass ratio] 66.0 mg/mg High 10.0-20.0 [facility] Comment on above: Order Comment: [facility] has implemented the eGFR calculation approach that does not have a coefficient for race that conforms to the NKF-ASN Task Force Recommendations. Performed By: #### 4 6953 ####[facility] LAB [address] [place], [place] [address] Les Malone M.D. [id number] CONSULTon 01-08-2024 CONSULT Normal [facility] MAGNESIUM LEVELon 01-08-2024 Magnesium [Mass/Vol] 2.5 mg/dL High 1.6-2.4 [facility] Comment on above: Performed By: #### 4 6109 #### LAB [address] [address] Les Malone M.D. [id number] PHOSPHORUSon 01-08-2024 Phosphate [Mass/Vol] 3.4 mg/dL Normal 2.7-4.5 [facility] Comment on above: Performed By: #### 4 6299 #### LAB [address] [address] Les Malone M.D. [id number] Phosphate [Mass/Vol] 2.4 mg/dL Low 2.7-4.5 [facility] Comment on above: Performed By: #### 4 6299 #### LAB [address] [address] Les Malone M.D. [id number] POC ARTERIAL BLOOD GAS PANEL -[facility] 01-08-2024 [id number] 477.6 mm Hg Normal [facility] Comment on above: Performed By: #### 4 [id number] #### LAB [address] [address] Les Malone M.D. [id number] BASE EXCESS, ARTERIAL 5.5 High -2.0-2.0 [facility] Comment on above: Performed By: #### 4 8716 #### LAB [address] [address] Les Malone M.D. [id number] FIO2 100 Normal [facility] Comment on above: Performed By: #### 4 8716 #### LAB [address] [address] Les Malone M.D. [id number] HCO3 (Bld) [Moles/Vol] 29.9 mmol/L High 22.0-26.0 [facility] Comment on above: Performed By: #### 4 8716 #### LAB [address] [address] Les Malone M.D. [id number] Hematocrit (Bld) [Volume fraction] 25.7 % Low 41.0-53.0 [facility] Comment on above: Performed By: #### 4 8716 #### LAB [address] [address] Les Malone M.D. [id number] Hemoglobin (Bld) [Mass/Vol] 8.4 g/dL Low 13.5-17.5 [facility] Comment on above: Performed By: #### 4 8716 #### LAB [address] [address] Les Malone M.D. [id number] Oxygen saturation in Blood 99.6 % High 92.0-99.0 [facility] Comment on above: Performed By: #### 4 8716 #### LAB [address] [address] Les Malone M.D. [id number] PCO2 ARTERIAL 42.3 mm Hg Normal 35.0-45.0 [facility] Comment on above: Performed By: #### 4 8716 #### LAB [address] [address] Les Malone M.D. [id number] PEEP RAD 10 [facility] Comment on above: Performed By: #### 4 8716 #### LAB [address] [address] Les Malone M.D. [id number] PH ARTERIAL 7.46 High 7.35-7.45 [facility] Comment on above: Performed By: #### 4 8716 #### LAB [address] [address] Les Malone M.D. [id number] PO2 ARTERIAL 162 mm Hg High 80-100 [facility] Comment on above: Performed By: #### 4 8716 #### LAB [address] [address] Les Malone M.D. [id number] RESP RATE RAD 24 [facility] Comment on above: Performed By: #### 4 8716 #### LAB [address] [address] Les Malone M.D. [id number] SPECIMEN SOURCE RADIANCE Not specified [facility] Comment on above: Performed By: #### 4 8716 ####[facility] LAB [address] [address] Les Malone M.D. [id number] TIDAL VOLUME RAD 480 Normal [facility] Comment on above: Performed By: #### 4 8716 ####[facility] LAB [address] [address] Les Malone M.D. [id number] 265.8 mm Hg [facility] Comment on above: Performed By: #### 4 8716 ####[facility] LAB [address] [address] Les Malone M.D. [id number] BASE EXCESS, ARTERIAL 5.9 High -2.0-2.0 [facility] Comment on above: Performed By: #### 4 8716 ####[facility] [address] [address] Les Malone M.D. [id number] FIO2 75 Normal [facility] Comment on above: Performed By: #### 4 8716 ####[facility] LAB [address] [address] Les Malone M.D. [id number] HCO3 (Bld) [Moles/Vol] 29.9 mmol/L High 22.0-26.0 [facility] Comment on above: Performed By: #### 4 8716 ####[facility] LAB [address] [address] Les Malone M.D. [id number] Hematocrit (Bld) [Volume fraction] 26.9 % Low 41.0-53.0 [facility] Comment on above: Performed By: #### 4 8716 ####[facility] [address] [address] Les Malone M.D. [id number] Hemoglobin (Bld) [Mass/Vol] 8.8 g/dL Low 13.5-17.5 [facility] Comment on above: Performed By: #### 4 8716 #### LAB [address] [address] Les Malone M.D. [id number] Oxygen saturation in Blood 99.7 % High 92.0-99.0 [facility] Comment on above: Performed By: #### 4 8716 #### LAB [address] [address] Les Malone M.D. [id number] PCO2 ARTERIAL 39.9 mm Hg Normal 35.0-45.0 [facility] Comment on above: Performed By: #### 4 8716 ####[facility] [address] [address] Les Malone M.D. [id number] PH ARTERIAL 7.48 High 7.35-7.45 [facility] Comment on above: Performed By: #### 4 8716 ####[facility] [address] [address] Les Malone M.D. [id number] PO2 ARTERIAL 205 mm Hg High 80-100 [facility] Comment on above: Performed By: #### 4 8716 ####[facility] [address] [address] Les Malone M.D. [id number] RESP RATE RAD 24 [facility] Comment on above: Performed By: #### 4 8716 #### LAB [address] [address] Les Malone M.D. [id number] SPECIMEN SOURCE RADIANCE Not specified [facility] Comment on above: Performed By: #### 4 8716 #### LAB [address] [address] Les Malone M.D. [id number] TIDAL VOLUME RAD 480 [facility] Comment on above: Performed By: #### 4 8716 ####[facility] [address] [address] Les Malone M.D. [id number] POC GLUCOSE [facility] 024 Glucose [Mass/Vol] 166 mg/dL High [address] [place] [address] Comment on above: Performed By: #### 4 6932 ####[facility] [address] [address] Les Malone M.D. [id number] Glucose [Mass/Vol] 157 mg/dL [address] Comment on above: Performed By: #### 4 6932 ####[facility] [address] [address] Les Malone M.D. [id number] Glucose [Mass/Vol] 155 mg/dL [address] Comment on above: Performed By: #### 4 6932 #### LAB [address] [address] Les Malone M.D. [id number] Glucose [Mass/Vol] 159 mg/dL [address] Comment on above: Performed By: #### 4 6932 #### LAB [address] [address] Les Malone M.D. [id number] Glucose [Mass/Vol] 172 mg/dL [address] Comment on above: Performed By: #### 4 6932 #### LAB [address] [address] Les Malone M.D. [id number] POTASSIUM LEVELon 01-08-2024 Potassium [Moles/Vol] 4.5 mmol/L Normal 3.5-5.1 [facility] Comment on above: Performed By: #### 4 6351 ####[facility] [address] [address] Les Malone M.D. [id number] XR CHEST PA/APon 01-08-2024 XR CHEST PA/AP [facility] Comment on above: Order Comment: Injur y/Trauma or Illness?:Illness/OtherHow long have you had these symptoms (acute/chronic)?:UnknownReason for exam?:hypoxiaHistory of cancer?:uSurgeries, chemotherapy, or radiation?:uType of Exam?:Subsequent/Follow-upAdditional signs and symptoms?:u CBCon 01-07-2024 AUTO NRBC 1.5 % Normal [facility] Comment on above: Performed By: #### 4 [id number] #### LAB [address] [address] Les Malone M.D. [id number] AUTO NRBC ABS COUNT 0.21 K/mcL High 0.00-0.00 [facility] Comment on above: Performed By: #### 4 5218 #### LAB [address] [address] Les Malone M.D. [id number] Erythrocyte distribution width (RBC) [Ratio] 16.8 % High 11.6-14.8 [facility] Comment on above: Performed By: #### 4 5218 #### LAB [address] [address] Les Malone M.D. [id number] Hematocrit (Bld) [Volume fraction] 24.6 % Low 41.0-53.0 [facility] Comment on above: Performed By: #### 4 5218 #### LAB [address] [address] Les Malone M.D. [id number] Hemoglobin (Bld) [Mass/Vol] 7.4 g/dL Low 13.5-17.5 [facility] Comment on above: Performed By: #### 4 5218 #### LAB [address] [address] Les Malone M.D. [id number] MCH (RBC) [Entitic mass] 29.5 pg Normal 26.0-34.0 [facility] Comment on above: Performed By: #### 4 5218 #### LAB [address] [address] Les Malone M.D. [id number] MCV (RBC) [Entitic vol] 98.0 fL Normal 80.0-100.0 [facility] Comment on above: Performed By: #### 4 5718 ####[facility] LAB [address] [place], [place] [address] Les Malone M.D. [id number] MEAN CORPUSCULAR HEMOGLOBIN CONC 30.1 g/dL Low 31.0-37.0 [facility] Comment on above: Performed By: #### 4 5218 #### LAB [address] [place], [place] [address] Les Malone M.D. [id number] Platelet mean volume (Bld) [Entitic vol] 10.4 fL Normal 9.4-12.4 [facility] Comment on above: Performed By: #### 4 5218 #### LAB [address] [place] [address] Les Malone M.D. [id number] Platelets (Bld) [#/Vol] 424 10*3/uL High 150-400 [facility] Comment on above: Performed By: #### 4 5218 #### LAB [address] [address] Les Malone M.D. [id number] RBC (Bld) [#/Vol] 2.51 10*6/uL Low 4.50-5.90 [facility] Comment on above: Performed By: #### 4 5218 #### LAB [address] [address] Les Malone M.D. [id number] WBC (Bld) [#/Vol] 13.97 10*3/uL High 4.50-11.00 [facility] Comment on above: Performed By: #### 4 5218 #### LAB [address] [place] [address] Les Malone M.D. [id number] CHEM 7on 01-07-2024 Anion gap [Moles/Vol] 11 mmol/L Normal 10-20 [facility] Comment on above: Order Comment: [facility] has implemented the eGFR calculation approach that does not have a coefficient for race that conforms to the NKF-ASN Task Force Recommendations. Performed By: #### 4 6953 #### LAB [address] [address] Les Malone M.D. [id number] Chloride [Moles/Vol] 115 mmol/L High 98-108 [facility] Comment on above: Order Comment: [facility] has implemented the eGFR calculation approach that does not have a coefficient for race that conforms to the NKF-ASN Task Force Recommendations. Performed By: #### 4 6953 #### LAB [address] [place] [address] Les Malone M.D. [id number] Creatinine [Mass/Vol] 1.18 mg/dL Normal 0.50-1.30 [facility] Comment on above: Order Comment: [facility] has implemented the eGFR calculation approach that does not have a coefficient for race that conforms to the NKF-ASN Task Force Recommendations. Performed By: #### 4 6953 ####[facility] [address] [place] [address] Les Malone M.D. [id number] EGFR 78 mL/min/1.73 m2 Normal >=60 [facility] Comment on above: Order Comment: [facility] has implemented the eGFR calculation approach that does not have a coefficient for race that conforms to the NKF-ASN Task Force Recommendations. Result Comment: Fanta mated GFR was calculated using the 2020 CKD-EPI creatinine equation. Performed By: #### 4 6953 ####[facility] [address] [place], [place] [address] Les Malone M.D. [id number] Glucose [Mass/Vol] 200 mg/dL High 65-99 [facility] Comment on above: Order Comment: [facility] has implemented the eGFR calculation approach that does not have a coefficient for race that conforms to the NKF-ASN Task Force Recommendations. Performed By: #### 4 6953 ####[facility] [address] [place] [address] Les Malone M.D. [id number] HCO3 (Bld) [Moles/Vol] 29 mmol/L Normal 21-32 [facility] Comment on above: Order Comment: [facility] has implemented the eGFR calculation approach that does not have a coefficient for race that conforms to the NKF-ASN Task Force Recommendations. Performed By: #### 4 6953 #### LAB [address] [place], [place] [address] Les Malone M.D. [id number] Potassium [Moles/Vol] 4.4 mmol/L Normal 3.5-5.1 [facility] Comment on above: Order Comment: [facility] has implemented the eGFR calculation approach that does not have a coefficient for race that conforms to the NKF-ASN Task Force Recommendations. Performed By: #### 4 6953 #### LAB [address] [address] Les Malone M.D. [id number] Sodium [Moles/Vol] 151 mmol/L High 135-145 [facility] Comment on above: Order Comment: [facility] [facility] has implemented the eGFR calculation approach that does not have a coefficient for race that conforms to the NKF-ASN Task Force Recommendations. Performed By: #### 4 6953 #### LAB [address] [address] Les Malone M.D. [id number] Urea nitrogen [Mass/Vol] 63 mg/dL High 8-25 [facility] Comment on above: Order Comment: [facility] has implemented the eGFR calculation approach that does not have a coefficient for race that conforms to the NKF-ASN Task Force Recommendations. Performed By: #### 4 6953 ####[facility] LAB [address] [address] Les Malone M.D. [id number] Urea nitrogen/Creatinine [Mass ratio] 53.4 mg/mg High 10.0-20.0 [facility] Comment on above: Order Comment: [facility] has implemented the eGFR calculation approach that does not have a coefficient for race that conforms to the NKF-ASN Task Force Recommendations. Performed By: #### 4 6953 #### LAB [address] [address] Les Malone M.D. [id number] CT HEAD OR BRAIN WITHOUT CON TRASTon 01-07-2024 CT HEAD OR BRAIN WITHOUT CONTRAST Normal [facility] Comment on above: Order Comment: Injur y/Trauma or Illness?:Illness/OtherHow long have you had these symptoms (acute/chronic)?:AcuteReason for exam?:Follow up, EVD, s/p cardiac arrest 01/06/24Type of Exam?:Subsequent/Follow-upAdditional signs and symptoms?:. CV IR IVC FILTER INSERTon CV IR IVC FILTER INSERT Normal [facility] MAGNESIUM LEVELon 01-07-2024 Magnesium [Mass/Vol] 2.6 mg/dL High 1.6-2.4 [facility] Comment on above: Performed By: #### 4 6109 #### LAB [address] [address] Les Malone M.D. [id number] PHOSPHORUSon 01-07-2024 Phosphate [Mass/Vol] 2.2 mg/dL Low 2.7-4.5 [facility] Comment on above: Performed By: #### 4 6299 ####[facility] LAB [address] [address] Les Malone M.D. [id number] Phosphate [Mass/Vol] 1.2 mg/dL Low 2.7-4.5 [facility] Comment on above: Performed By: #### 4 6299 #### LAB [address] [address] Les Malone M.D. [id number] POC ARTERIAL BLOOD GAS PANEL -[facility] 01-07-2024 [id number] 377.1 mm Hg [facility] Comment on above: Performed By: #### 4 [id number] #### LAB [address] [address] Les Malone M.D. [id number] BASE EXCESS, ARTERIAL 5.8 High -2.0-2.0 [facility] Comment on above: Performed By: #### 4 8716 #### LAB [address] [address] Les Malone M.D. [id number] FIO2 75 Normal [facility] Comment on above: Performed By: #### 4 8716 #### LAB [address] [address] Les Malone M.D. [id number] HCO3 (Bld) [Moles/Vol] 30.3 mmol/L High 22.0-26.0 [facility] Comment on above: Performed By: #### 4 8716 #### LAB [address] [address] Les Malone M.D. [id number] Hematocrit (Bld) [Volume fraction] 25.0 % Low 41.0-53.0 [facility] Comment on above: Performed By: #### 4 [id number] #### LAB [address] [address] Les Malone M.D. [id number] Hemoglobin (Bld) [Mass/Vol] 8.2 g/dL Low 13.5-17.5 [facility] Comment on above: Performed By: #### 4 8716 #### LAB [address] [address] Les Malone M.D. [id number] Oxygen saturation in Blood 98.0 % Normal 92.0-99.0 [facility] Comment on above: Performed By: #### 4 8716 #### LAB [address] [address] Les Malone M.D. [id number] PCO2 ARTERIAL 43.0 mm Hg Normal 35.0-45.0 [facility] Comment on above: Performed By: #### 4 8716 ####[facility] [address] [address] Les Malone M.D. [id number] PEEP RAD 8 [facility] Comment on above: Performed By: #### 4 8716 ####[facility] [address] [address] Les Malone M.D. [id number] PH ARTERIAL 7.46 High 7.35-7.45 [facility] Comment on above: Performed By: #### 4 8716 #### LAB [address] [id number] Les Malone M.D. [id number] PO2 ARTERIAL 91 mm Hg Normal 80-100 [facility] Comment on above: Performed By: #### 4 8716 ####[facility] LAB [address] [id number] Les Malone M.D. [id number] RESP RATE RAD 24 Normal [facility] Comment on above: Performed By: #### 4 8716 ####[facility] [address] [address] Les Malone M.D. [id number] SPECIMEN SOURCE RADIANCE Not specified [facility] Comment on above: Performed By: #### 4 8716 #### LAB [address] [address] Les Malone M.D. [id number] TIDAL VOLUME RAD 480 Normal [facility] Comment on above: Performed By: #### 4 8716 #### LAB [address] [address] Les Malone M.D. [id number] 452.1 mm Hg [facility] Comment on above: Performed By: #### 4 8716 #### LAB [address] [address] Les Malone M.D. [id number] BASE EXCESS, ARTERIAL 6.0 High -2.0-2.0 [facility] Comment on above: Performed By: #### 4 8716 ####[facility] LAB [address] [address] Les Malone M.D. [id number] FIO2 90 [facility] Comment on above: Performed By: #### 4 8716 ####[facility] LAB [address] [id number] Les Malone M.D. [id number] HCO3 (Bld) [Moles/Vol] 29.9 mmol/L High 22.0-26.0 [facility] Comment on above: Performed By: #### 4 8716 #### LAB [address] [address] Les Malone M.D. [id number] Hematocrit (Bld) [Volume fraction] 35.0 % Low 41.0-53.0 [facility] Comment on above: Performed By: #### 4 8716 #### LAB [address] [address] Les Malone M.D. [id number] Hemoglobin (Bld) [Mass/Vol] 11.4 g/dL Low 13.5-17.5 [facility] Comment on above: Performed By: #### 4 8716 ####[facility] [address] [address] Les Malone M.D. [id number] Oxygen saturation in Blood 98.8 % Normal 92.0-99.0 [facility] Comment on above: Performed By: #### 4 8716 ####[facility] [address] [address] Les Malone M.D. [id number] PCO2 ARTERIAL 39.8 mm Hg Normal 35.0-45.0 [facility] Comment on above: Performed By: #### 4 8716 #### LAB [address] [address] Les Malone M.D. [id number] PEEP RAD 8 Normal [facility] Comment on above: Performed By: #### 4 8716 #### LAB [address] [address] Les Malone M.D. [id number] PH ARTERIAL 7.48 High 7.35-7.45 [facility] Comment on above: Performed By: #### 4 8716 ####[facility] [address] [address] Les Malone M.D. [id number] PO2 ARTERIAL 124 mm Hg High 80-100 [facility] Comment on above: Performed By: #### 4 8716 #### LAB [address] [address] Les Malone M.D. [id number] RESP RATE RAD 24 [facility] Comment on above: Performed By: #### 4 8716 #### LAB [address] [address] Les Malone M.D. [id number] SPECIMEN SOURCE RADIANCE Brachial, right Normal [facility] Comment on above: Performed By: #### 4 8716 ####[facility] [address] [address] Les Malone M.D. [id number] TIDAL VOLUME RAD 560 [facility] Comment on above: Performed By: #### 4 8716 ####[facility] [address] [address] Les Malone M.D. [id number] 392.8 mm Hg [facility] Comment on above: Performed By: #### 4 8716 ####[facility] [address] [address] Les Malone M.D. [id number] BASE EXCESS, ARTERIAL 6.7 High -2.0-2.0 [facility] Comment on above: Performed By: #### 4 8716 ####[facility] [address] [address] Les Malone M.D. [id number] FIO2 70 [facility] Comment on above: Performed By: #### 4 8716 ####[facility] [address] [address] Les Malone M.D. [id number] HCO3 (Bld) [Moles/Vol] 29.5 mmol/L High 22.0-26.0 [facility] Comment on above: Performed By: #### 4 8716 ####[facility] [address] [address] Les Malone M.D. [id number] Hematocrit (Bld) [Volume fraction] 25.0 % Low 41.0-53.0 [facility] Comment on above: Performed By: #### 4 8716 ####[facility] [address] [address] Les Malone M.D. [id number] Hemoglobin (Bld) [Mass/Vol] 8.1 g/dL Low 13.5-17.5 [facility] Comment on above: Performed By: #### 4 8716 #### LAB [address] [address] Les Malone M.D. [id number] Oxygen saturation in Blood 91.2 % Low 92.0-99.0 [facility] Comment on above: Performed By: #### 4 8716 #### LAB [address] [address] Les Malone M.D. [id number] PCO2 ARTERIAL 33.6 mm Hg Low 35.0-45.0 [facility] Comment on above: Performed By: #### 4 8716 #### LAB [address] [address] Les Malone M.D. [id number] PEEP RAD 8 [facility] Comment on above: Performed By: #### 4 8716 #### LAB [address] [address] Les Malone M.D. [id number] PH ARTERIAL 7.55 High 7.35-7.45 [facility] Comment on above: Performed By: #### 4 8716 #### LAB [address] [address] Les Malone M.D. [id number] PO2 ARTERIAL 51 mm Hg Low 80-100 [facility] Comment on above: Performed By: #### 4 8716 #### LAB [address] [address] Les Malone M.D. [id number] RESP RATE RAD 24 [facility] Comment on above: Performed By: #### 4 8716 #### LAB [address] [address] Les Malone M.D. [id number] SPECIMEN SOURCE RADIANCE Radial, right [facility] Comment on above: Performed By: #### 4 8716 ####[facility] [address] [address] Les Malone M.D. [id number] TIDAL VOLUME RAD 560 [facility] Comment on above: Performed By: #### 4 8716 ####[facility] [address] [address] Les Malone M.D. [id number] [facility] Glucose [Mass/Vol] 176 mg/dL High [address] [place] [address] Comment on above: Performed By: #### 4 6932 ####[facility] LAB [address] [address] Les Malone M.D. [id number] Glucose [Mass/Vol] 175 mg/dL [address] Comment on above: Performed By: #### 4 6932 #### LAB [address] [address] Les Malone M.D. [id number] Glucose [Mass/Vol] 197 mg/dL [address] Comment on above: Performed By: #### 4 6932 ####[facility] [address] [address] Les Malone M.D. [id number] Glucose [Mass/Vol] 214 mg/dL [address] Comment on above: Performed By: #### 4 6932 #### LAB [address] [address] Les Malone M.D. [id number] SODIUMon 01-07-2024 Sodium [Moles/Vol] 150 mmol/L High 135-145 [facility] Comment on above: Performed By: #### 4 6501 #### LAB [address] [address] Les Malone M.D. [id number] XR CHEST PA/APon 01-07-2024 XR CHEST PA/AP [facility] Comment on above: Order Comment: Injur y/Trauma or Illness?:Illness/OtherHow long have you had these symptoms (acute/chronic)?:AcuteReason for exam?:increased o2 needHistory of cancer?:uSurgeries, chemotherapy, or radiation?:uType of Exam?:InitialAdditional signs and symptoms?:na CALCIUM, IONIZEDon CALCIUM IONIZED 4.2 mg/dL Low 4.5-5.3 [facility] Comment on above: Performed By: #### 4 5190 #### LAB [address] [address] Les Malone M.D. [id number] CBCon 01-06-2024 AUTO NRBC 2.0 % Normal [facility] Comment on above: Performed By: #### 4 [id number] #### LAB [address] [address] Les Malone M.D. [id number] AUTO NRBC ABS COUNT 0.32 K/mcL High 0.00-0.00 [facility] Comment on above: Performed By: #### 4 [id number] #### LAB [address] [address] Les Malone M.D. [id number] Erythrocyte distribution width (RBC) [Ratio] 16.8 % High 11.6-14.8 [facility] Comment on above: Performed By: #### 4 5218 #### LAB [address] [address] Les Malone M.D. [id number] Hematocrit (Bld) [Volume fraction] 25.3 % Low 41.0-53.0 [facility] Comment on above: Performed By: #### 4 5218 #### LAB [address] [address] Les Malone M.D. [id number] Hemoglobin (Bld) [Mass/Vol] 7.3 g/dL Low 13.5-17.5 [facility] Comment on above: Performed By: #### 4 5218 #### LAB [address] [address] Les Malone M.D. [id number] MCH (RBC) [Entitic mass] 28.5 pg Normal 26.0-34.0 [facility] Comment on above: Performed By: #### 4 5218 #### LAB [address] [address] Les Malone M.D. [id number] MCV (RBC) [Entitic vol] 98.8 fL Normal 80.0-100.0 [facility] Comment on above: Performed By: #### 4 5218 #### LAB [address] [address] Les Malone M.D. [id number] MEAN CORPUSCULAR HEMOGLOBIN CONC 28.9 g/dL Low 31.0-37.0 [facility] Comment on above: Performed By: #### 4 5218 ####[facility] [address] [address] Les Malone M.D. [id number] Platelet mean volume (Bld) [Entitic vol] 10.7 fL Normal 9.4-12.4 [facility] Comment on above: Performed By: #### 4 5218 #### LAB [address] [address] Les Malone M.D. [id number] Platelets (Bld) [#/Vol] 410 10*3/uL High 150-400 [facility] Comment on above: Performed By: #### 4 5218 #### LAB [address] [address] Les Malone M.D. [id number] RBC (Bld) [#/Vol] 2.56 10*6/uL Low 4.50-5.90 [facility] Comment on above: Performed By: #### 4 5218 #### LAB [address] [address] Les Malone M.D. [id number] WBC (Bld) [#/Vol] 16.11 10*3/uL High 4.50-11.00 [facility] Comment on above: Performed By: #### 4 5218 #### LAB [address] [address] Les Malone M.D. [id number] AUTO NRBC 1.3 % Normal [facility] Comment on above: Performed By: #### 4 5218 #### LAB [address] [address] Les Malone M.D. [id number] AUTO NRBC ABS COUNT 0.20 K/mcL High 0.00-0.00 [facility] Comment on above: Performed By: #### 4 [id number] #### LAB [address] [address] Les Malone M.D. [id number] Erythrocyte distribution width (RBC) [Ratio] 16.2 % High 11.6-14.8 [facility] Comment on above: Performed By: #### 4 5218 #### LAB [address] [address] Les Maolne M.D. [id number] Hematocrit (Bld) [Volume fraction] 24.6 % Low 41.0-53.0 [facility] Comment on above: Performed By: #### 4 5218 #### LAB [address] [address] Les Malone M.D. [id number] Hemoglobin (Bld) [Mass/Vol] 7.3 g/dL Low 13.5-17.5 [facility] Comment on above: Performed By: #### 4 5218 #### LAB [address] [address] Les Malone M.D. [id number] MCH (RBC) [Entitic mass] 29.0 pg Normal 26.0-34.0 [facility] Comment on above: Performed By: #### 4 5218 #### LAB [address] [address] Les Malone M.D. [id number] MCV (RBC) [Entitic vol] 97.6 fL Normal 80.0-100.0 [facility] Comment on above: Performed By: #### 4 5218 #### LAB [address] [address] Les Malone M.D. [id number] MEAN CORPUSCULAR HEMOGLOBIN CONC 29.7 g/dL Low 31.0-37.0 [facility] Comment on above: Performed By: #### 4 5218 #### LAB [address] [address] Les Malone M.D. [id number] Platelet mean volume (Bld) [Entitic vol] 10.6 fL Normal 9.4-12.4 [facility] Comment on above: Performed By: #### 4 5218 ####[facility] [address] [address] Les Malone M.D. [id number] Platelets (Bld) [#/Vol] 387 10*3/uL Normal 150-400 [facility] Comment on above: Performed By: #### 4 5218 #### LAB [address] [address] Les Malone M.D. [id number] RBC (Bld) [#/Vol] 2.52 10*6/uL Low 4.50-5.90 [facility] Comment on above: Performed By: #### 4 5218 ####[facility] [address] [address] Les Malone M.D. [id number] WBC (Bld) [#/Vol] 15.30 10*3/uL High 4.50-11.00 [facility] Comment on above: Performed By: #### 4 5218 #### LAB [address] [address] Les Malone M.D. [id number] CHEM 7on 01-06-2024 Anion gap [Moles/Vol] 16 mmol/L Normal 10-20 [facility] Comment on above: Order Comment: [facility] has implemented the eGFR calculation approach that does not have a coefficient for race that conforms to the NKF-ASN Task Force Recommendations. Performed By: #### 4 6953 #### LAB [address] [address] Les Malone M.D. [id number] Chloride [Moles/Vol] 113 mmol/L High 98-108 [facility] Comment on above: Order Comment: [facility] has implemented the eGFR calculation approach that does not have a coefficient for race that conforms to the NKF-ASN Task Force Recommendations. Performed By: #### 4 6953 #### LAB [address] [place], [place] [address] Les Malone M.D. [id number] Creatinine [Mass/Vol] 1.27 mg/dL Normal 0.50-1.30 [facility] Comment on above: Order Comment: [facility] has implemented the eGFR calculation approach that does not have a coefficient for race that conforms to the NKF-ASN Task Force Recommendations. Performed By: #### 4 6953 #### LAB [address] [place], [place] [address] Les Malone M.D. [id number] EGFR 71 mL/min/1.73 m2 Normal >=60 [facility] Comment on above: Order Comment: [facility] has implemented the eGFR calculation approach that does not have a coefficient for race that conforms to the NKF-ASN Task Force Recommendations. Result Comment: Fanta mated GFR was calculated using the 2020 CKD-EPI creatinine equation. Performed By: #### 4 6953 #### LAB [address] [place], [place] [address] Les Malone M.D. [id number] Glucose [Mass/Vol] 187 mg/dL High 65-99 [facility] Comment on above: Order Comment: [facility] has implemented the eGFR calculation approach that does not have a coefficient for race that conforms to the NKF-ASN Task Force Recommendations. Performed By: #### 4 6953 ####[facility] [address] [place], [place] [address] Les Malone M.D. [id number] HCO3 (Bld) [Moles/Vol] 27 mmol/L Normal 21-32 [facility] Comment on above: Order Comment: [facility] has implemented the eGFR calculation approach that does not have a coefficient for race that conforms to the NKF-ASN Task Force Recommendations. Performed By: #### 4 6953 #### LAB [address] [place], [place] [address] Les Malone M.D. [id number] Potassium [Moles/Vol] 4.5 mmol/L Normal 3.5-5.1 [facility] Comment on above: Order Comment: [facility] has implemented the eGFR calculation approach that does not have a coefficient for race that conforms to the NKF-ASN Task Force Recommendations. Performed By: #### 4 6953 ####[facility] [address], [place] [address] Les Malone M.D. [id number] Sodium [Moles/Vol] 151 mmol/L High 135-145 [facility] Comment on above: Order Comment: [facility] has implemented the eGFR calculation approach that does not have a coefficient for race that conforms to the NKF-ASN Task Force Recommendations. Performed By: #### 4 6953 #### LAB [address] [place], [place] [address] Les Maloen M.D. [id number] Urea nitrogen [Mass/Vol] 60 mg/dL High 8-25 [facility] Comment on above: Order Comment: [facility] has implemented the eGFR calculation approach that does not have a coefficient for race that conforms to the NKF-ASN Task Force Recommendations. Performed By: #### 4 6953 #### LAB [address] [address] Les Malone M.D. [id number] Urea nitrogen/Creatinine [Mass ratio] 47.2 mg/mg High 10.0-20.0 [facility] Comment on above: Order Comment: [facility] has implemented the eGFR calculation approach that does not have a coefficient for race that conforms to the NKF-ASN Task Force Recommendations. Performed By: #### 4 6953 ####[facility] [address] [place], [place] [address] Les Malone M.D. [id number] Anion gap [Moles/Vol] 11 mmol/L Normal 10-20 [facility] Comment on above: Order Comment: [facility] has implemented the eGFR calculation approach that does not have a coefficient for race that conforms to the NKF-ASN Task Force Recommendations. Performed By: #### 4 6953 #### LAB [address] [place], [place] [address] Les Malone M.D. [id number] Chloride [Moles/Vol] 111 mmol/L High 98-108 [facility] Comment on above: Order Comment: [facility] has implemented the eGFR calculation approach that does not have a coefficient for race that conforms to the NKF-ASN Task Force Recommendations. Performed By: #### 4 6953 #### LAB [address] [place], [place] [address] Les Malone M.D. [id number] Creatinine [Mass/Vol] 1.15 mg/dL Normal 0.50-1.30 [facility] Comment on above: Order Comment: [facility] has implemented the eGFR calculation approach that does not have a coefficient for race that conforms to the NKF-ASN Task Force Recommendations. Performed By: #### 4 6953 #### LAB [address] [place], [place] [address] Les Malone M.D. [id number] EGFR 80 mL/min/1.73 m2 Normal >=60 [facility] Comment on above: Order Comment: [facility] has implemented the eGFR calculation approach that does not have a coefficient for race that conforms to the NKF-ASN Task Force Recommendations. Result Comment: Fanta mated GFR was calculated using the 2020 CKD-EPI creatinine equation. Performed By: #### 4 6953 #### LAB [address] [place], [place] [address] Les Malone M.D. [id number] Glucose [Mass/Vol] 201 mg/dL High 65-99 [facility] Comment on above: Order Comment: [facility] has implemented the eGFR calculation approach that does not have a coefficient for race that conforms to the NKF-ASN Task Force Recommendations. Performed By: #### 4 6953 #### LAB [address] [place], [place] [address] Les Malone M.D. [id number] HCO3 (Bld) [Moles/Vol] 31 mmol/L Normal 21-32 [facility] Comment on above: Order Comment: [facility] has implemented the eGFR calculation approach that does not have a coefficient for race that conforms to the NKF-ASN Task Force Recommendations. Performed By: #### 4 6953 #### LAB [address] [address] Les Malone M.D. [id number] Potassium [Moles/Vol] 4.5 mmol/L Normal 3.5-5.1 [facility] Comment on above: Order Comment: [facility] has implemented the eGFR calculation approach that does not have a coefficient for race that conforms to the NKF-ASN Task Force Recommendations. Performed By: #### 4 6953 #### LAB [address] [address] Les Malone M.D. [id number] Sodium [Moles/Vol] 148 mmol/L High 135-145 [facility] Comment on above: Order Comment: [facility] has implemented the eGFR calculation approach that does not have a coefficient for race that conforms to the NKF-ASN Task Force Recommendations. Performed By: #### 4 6953 #### LAB [address] [place], [place] [address] Les Malone M.D. [id number] Urea nitrogen [Mass/Vol] 55 mg/dL High 8-25 [facility] Comment on above: Order Comment: [facility] has implemented the eGFR calculation approach that does not have a coefficient for race that conforms to the NKF-ASN Task Force Recommendations. Performed By: #### 4 6953 ####[facility] [address] [address] Les Malone M.D. [id number] Urea nitrogen/Creatinine [Mass ratio] 47.8 mg/mg High 10.0-20.0 [facility] Comment on above: Order Comment: [facility] has implemented the eGFR calculation approach that does not have a coefficient for race that conforms to the NKF-ASN Task Force Recommendations. Performed By: #### 4 6953 #### LAB [address] [address] Les Malone M.D. [id number] MAGNESIUM LEVELon 01-06-2024 Magnesium [Mass/Vol] 2.8 mg/dL High 1.6-2.4 [facility] Comment on above: Performed By: #### 4 6109 ####[facility] [address] [address] Les Malone M.D. [id number] Magnesium [Mass/Vol] 2.7 mg/dL High 1.6-2.4 [facility] Comment on above: Performed By: #### 4 6109 ####[facility] [address] [address] Les Malone M.D. [id number] PHOSPHORUSon 01-06-2024 Phosphate [Mass/Vol] 2.1 mg/dL Low 2.7-4.5 [facility] Comment on above: Performed By: #### 4 6299 ####[facility] [address] [address] Les Malone M.D. [id number] POC ARTERIAL BLOOD GAS PANEL [facility] 01-06-2024 [id number] 326.6 mm Hg [facility] Comment on above: Performed By: #### 4 8716 #### LAB [address] [address] Les Malone M.D. [id number] BASE EXCESS, ARTERIAL 7.1 High -2.0-2.0 [facility] Comment on above: Performed By: #### 4 8716 ####[facility] [address] [address] Les Malone M.D. [id number] FIO2 70 [facility] Comment on above: Performed By: #### 4 8716 ####[facility] [address] [address] Les Malone M.D. [id number] HCO3 (Bld) [Moles/Vol] 30.0 mmol/L High 22.0-26.0 [facility] Comment on above: Performed By: #### 4 8716 ####[facility] [address] [address] Les Malone M.D. [id number] Hematocrit (Bld) [Volume fraction] 24.3 % Low 41.0-53.0 [facility] Comment on above: Performed By: #### 4 8716 ####[facility] [address] [address] Les Malone M.D. [id number] Hemoglobin (Bld) [Mass/Vol] 7.9 g/dL Low 13.5-17.5 [facility] Comment on above: Performed By: #### 4 8716 ####[facility] [address] [address] Les Malone M.D. [id number] Oxygen saturation in Blood 99.2 % High 92.0-99.0 [facility] Comment on above: Performed By: #### 4 8716 ####[facility] [address] [address] Les Malone M.D. [id number] PCO2 ARTERIAL 34.4 mm Hg Low 35.0-45.0 [facility] Comment on above: Performed By: #### 4 8716 #### LAB [address] [address] Les Malone M.D. [id number] PEEP RAD 8 Normal [facility] Comment on above: Performed By: #### 4 8716 ####[facility] [address] [address] Les Malone M.D. [id number] PH ARTERIAL 7.55 High 7.35-7.45 [facility] Comment on above: Performed By: #### 4 8716 ####[facility] [address] [address] Les Malone M.D. [id number] PO2 ARTERIAL 117 mm Hg High 80-100 [facility] Comment on above: Performed By: #### 4 8716 ####[facility] [address] [address] Les Malone M.D. [id number] RESP RATE RAD 24 [facility] Comment on above: Performed By: #### 4 8716 ####[facility] [address] [address] Les Malone M.D. [id number] SPECIMEN SOURCE RADIANCE Radial, left [facility] Comment on above: Performed By: #### 4 8716 ####[facility] [address] [address] Les Malone M.D. [id number] TIDAL VOLUME RAD 560 [facility] Comment on above: Performed By: #### 4 8716 ####[facility] [address] [address] Les Malone M.D. [id number] POC GLUCOSE - [facility] 024 Glucose [Mass/Vol] 172 mg/dL High [address] Comment on above: Performed By: #### 4 6932 ####[facility] [address] [address] Les Malone M.D. [id number] Glucose [Mass/Vol] 183 mg/dL High [address] [place] [address] Comment on above: Performed By: #### 4 6932 ####[facility] [address] [address] Les Malone M.D. [id number] Glucose [Mass/Vol] 192 mg/dL High [address] [place] [address] Comment on above: Performed By: #### 4 6932 ####[facility] [address] [address] Les Malone M.D. [id number] XR CHEST PA/APon 01-06-2024 XR CHEST PA/AP [facility] Comment on above: Order Comment: Injur y/Trauma or Illness?:Illness/OtherHow long have you had these symptoms (acute/chronic)?:AcuteReason for exam?:post arrest, tube placementHistory of cancer?:uSurgeries, chemotherapy, or radiation?:uType of Exam?:InitialAdditional signs and symptoms?:. BLOOD CULTURE AEROBIC/ANAERO BICon 01-05-2024 BLOOD CULTURE AEROBIC/ANAEROBIC BLOOD CULTURE No Growth after 5 days Normal [facility] Comment on above: Performed By: #### 4 4014 #### LAB [address] [address] Les Malone M.D. [id number] CBCon 01-05-2024 AUTO NRBC 0.9 % Normal [facility] Comment on above: Performed By: #### 4 5218 #### LAB [address] [address] Les Malone M.D. [id number] AUTO NRBC ABS COUNT 0.13 K/mcL High 0.00-0.00 [facility] Comment on above: Performed By: #### 4 5218 #### LAB [address] [address] Les Malone M.D. [id number] Erythrocyte distribution width (RBC) [Ratio] 15.9 % High 11.6-14.8 [facility] Comment on above: Performed By: #### 4 5218 #### LAB [address] [address] Les Malone M.D. [id number] Hematocrit (Bld) [Volume fraction] 24.2 % Low 41.0-53.0 [facility] Comment on above: Performed By: #### 4 5218 #### LAB [address] [address] Les Malone M.D. [id number] Hemoglobin (Bld) [Mass/Vol] 7.4 g/dL Low 13.5-17.5 [facility] Comment on above: Performed By: #### 4 5218 #### LAB [address] [address] Les Malone M.D. [id number] MCH (RBC) [Entitic mass] 29.7 pg Normal 26.0-34.0 [facility] Comment on above: Performed By: #### 4 5218 #### LAB [address] [address] Les Malone M.D. [id number] MCV (RBC) [Entitic vol] 97.2 fL Normal 80.0-100.0 [facility] Comment on above: Performed By: #### 4 5218 #### LAB [address] [address] Les Malone M.D. [id number] MEAN CORPUSCULAR HEMOGLOBIN CONC 30.6 g/dL Low 31.0-37.0 [facility] Comment on above: Performed By: #### 4 5218 ####[facility] [address] [address] Les Malone M.D. [id number] Platelet mean volume (Bld) [Entitic vol] 11.1 fL Normal 9.4-12.4 [facility] Comment on above: Performed By: #### 4 5218 ####[facility] [address] [address] Les Malone M.D. [id number] Platelets (Bld) [#/Vol] 298 10*3/uL Normal 150-400 [facility] Comment on above: Performed By: #### 4 5218 #### LAB [address] [address] Les Malone M.D. [id number] RBC (Bld) [#/Vol] 2.49 10*6/uL Low 4.50-5.90 [facility] Comment on above: Performed By: #### 4 5218 #### LAB [address] [address] Les Malone M.D. [id number] WBC (Bld) [#/Vol] 15.13 10*3/uL High 4.50-11.00 [facility] Comment on above: Performed By: #### 4 5218 ####[facility] [address] [address] Les Malone M.D. [id number] CHEM 01-05-2024 Anion gap [Moles/Vol] 10 mmol/L Normal 10-20 [facility] Comment on above: Order Comment: [facility] has implemented the eGFR calculation approach that does not have a coefficient for race that conforms to the NKF-ASN Task Force Recommendations. Performed By: #### 4 6953 #### LAB [address] [place], [place] [address] Les Malone M.D. [id number] Chloride [Moles/Vol] 113 mmol/L High 98-108 [facility] Comment on above: Order Comment: [facility] has implemented the eGFR calculation approach that does not have a coefficient for race that conforms to the NKF-ASN Task Force Recommendations. Performed By: #### 4 6953 #### LAB [address] [place], [place] [address] Les Malone M.D. [id number] Creatinine [Mass/Vol] 1.03 mg/dL Normal 0.50-1.30 [facility] Comment on above: Order Comment: [facility] has implemented the eGFR calculation approach that does not have a coefficient for race that conforms to the NKF-ASN Task Force Recommendations. Performed By: #### 4 6953 #### LAB [address] [place], [place] [address] Les Malone M.D. [id number] EGFR 91 mL/min/1.73 m2 Normal >=60 [facility] Comment on above: Order Comment: [facility] has implemented the eGFR calculation approach that does not have a coefficient for race that conforms to the NKF-ASN Task Force Recommendations. Result Comment: Fanta mated GFR was calculated using the 2020 CKD-EPI creatinine equation. Performed By: #### 4 6953 ####[facility] [address] [address] Les Malone M.D. [id number] Glucose [Mass/Vol] 138 mg/dL High 65-99 [facility] Comment on above: Order Comment: [facility] has implemented the eGFR calculation approach that does not have a coefficient for race that conforms to the NKF-ASN Task Force Recommendations. Performed By: #### 4 6953 #### LAB [address] [address] Les Malone M.D. [id number] HCO3 (Bld) [Moles/Vol] 27 mmol/L Normal 21-32 [facility] Comment on above: Order Comment: [facility] has implemented the eGFR calculation approach that does not have a coefficient for race that conforms to the NKF-ASN Task Force Recommendations. Performed By: #### 4 6953 #### LAB [address] [address] Les Malone M.D. [id number] Potassium [Moles/Vol] 6.8 mmol/L Off scale high 3.5-5.1 [facility] Comment on above: Order Comment: [facility] has implemented the eGFR calculation approach that does not have a coefficient for race that conforms to the NKF-ASN Task Force Recommendations. Performed By: #### 4 6953 #### LAB [address] [address] Les Malone M.D. [id number] Sodium [Moles/Vol] 143 mmol/L Normal 135-145 [facility] Comment on above: Order Comment: [facility] has implemented the eGFR calculation approach that does not have a coefficient for race that conforms to the NKF-ASN Task Force Recommendations. Performed By: #### 4 6953 ####[facility] [address] [address] Les Malone M.D. [id number] Urea nitrogen [Mass/Vol] 39 mg/dL High 8-25 [facility] Comment on above: Order Comment: [facility] has implemented the eGFR calculation approach that does not have a coefficient for race that conforms to the NKF-ASN Task Force Recommendations. Performed By: #### 4 6953 #### LAB [address] [address] Les Malone M.D. [id number] Urea nitrogen/Creatinine [Mass ratio] 37.9 mg/mg High 10.0-20.0 [facility] Comment on above: Order Comment: [facility] has implemented the eGFR calculation approach that does not have a coefficient for race that conforms to the NKF-ASN Task Force Recommendations. Performed By: #### 4 6953 ####[facility] [address] [address] Les Malone M.D. [id number] MAGNESIUM LEVELon 01-05-2024 Magnesium [Mass/Vol] 2.5 mg/dL High 1.6-2.4 [facility] Comment on above: Performed By: #### 4 6109 ####[facility] [address] [address] Les Malone M.D. [id number] PHOSPHORUSon 01-05-2024 Phosphate [Mass/Vol] 3.0 mg/dL Normal 2.7-4.5 [facility] [place] Comment on above: Performed By: #### 4 6299 ####[facility] [address] [address] Les Malone M.D. [id number] POC ARTERIAL BLOOD GAS PANEL -[facility] 01-05-2024 [id number] 319.3 mm Hg [facility] Comment on above: Performed By: #### 4 8716 #### LAB [address] [address] Les Malone M.D. [id number] BASE EXCESS, ARTERIAL 5.5 High -2.0-2.0 [facility] Comment on above: Performed By: #### 4 8716 ####[facility] [address] [id number] Les Malone M.D. [id number] FIO2 70 [facility] Comment on above: Performed By: #### 4 8716 ####[facility] [address] [address] Les Malone M.D. [id number] HCO3 (Bld) [Moles/Vol] 30.0 mmol/L High 22.0-26.0 [facility] Comment on above: Performed By: #### 4 8716 #### LAB [address] [address] Les Malone M.D. [id number] Hematocrit (Bld) [Volume fraction] 27.4 % Low 41.0-53.0 [facility] Comment on above: Performed By: #### 4 8716 #### LAB [address] [address] Les Malone M.D. [id number] Hemoglobin (Bld) [Mass/Vol] 8.9 g/dL Low 13.5-17.5 [facility] Comment on above: Performed By: #### 4 8716 #### LAB [address] [address] Les Malone M.D. [id number] Oxygen saturation in Blood 98.9 % Normal 92.0-99.0 [facility] Comment on above: Performed By: #### 4 8716 #### LAB [address] [address] Lse Malone M.D. [id number] PCO2 ARTERIAL 43.2 mm Hg Normal 35.0-45.0 [facility] Comment on above: Performed By: #### 4 8716 #### LAB [address] [address] Les Malone M.D. [id number] PEEP RAD 8 Normal [facility] Comment on above: Performed By: #### 4 8716 #### LAB [address] [address] Les Malone M.D. [id number] PH ARTERIAL 7.45 Normal 7.35-7.45 [facility] Comment on above: Performed By: #### 4 8716 ####[facility] [address] [address] Les Malone M.D. [id number] PO2 ARTERIAL 114 mm Hg High 80-100 [facility] Comment on above: Performed By: #### 4 8716 ####[facility] [address] [address] Les Malone M.D. [id number] RESP RATE RAD 24 Normal [facility] Comment on above: Performed By: #### 4 8716 #### LAB [address] [address] Les Malone M.D. [id number] SPECIMEN SOURCE RADIANCE Brachial, left Normal [facility] Comment on above: Performed By: #### 4 8716 #### LAB [address] [address] Les Malone M.D. [id number] TIDAL VOLUME RAD 560 Normal [facility] Comment on above: Performed By: #### 4 8716 #### LAB [address] [address] Les Malone M.D. [id number] 329.2 mm Hg [facility] Comment on above: Performed By: #### 4 8716 #### LAB [address] [address] Les Malone M.D. [id number] BASE EXCESS, ARTERIAL 3.3 High -2.0-2.0 [facility] Comment on above: Performed By: #### 4 8716 #### LAB [address] [address] Les Malone M.D. [id number] FIO2 70 [facility] Comment on above: Performed By: #### 4 8716 ####[facility] [address] [address] Les Malone M.D. [id number] HCO3 (Bld) [Moles/Vol] 29.4 mmol/L High 22.0-26.0 [facility] Comment on above: Performed By: #### 4 8716 ####[facility] [address] [address] Les Malone M.D. [id number] Hematocrit (Bld) [Volume fraction] 23.5 % Low 41.0-53.0 [facility] Comment on above: Performed By: #### 4 8716 ####[facility] [address] [id number] Les Malone M.D. [id number] Hemoglobin (Bld) [Mass/Vol] 7.7 g/dL Low 13.5-17.5 [facility] Comment on above: Performed By: #### 4 8716 #### LAB [address] [address] Les Malone M.D. [id number] Oxygen saturation in Blood 97.9 % Normal 92.0-99.0 [facility] Comment on above: Performed By: #### 4 8716 #### LAB [address] [address] Les Malone M.D. [id number] PCO2 ARTERIAL 52.4 mm Hg High 35.0-45.0 [facility] Comment on above: Performed By: #### 4 8716 #### LAB [address] [address] Les Malone M.D. [id number] PEEP RAD 8 [facility] Comment on above: Performed By: #### 4 8716 #### LAB [address] [address] Les Malone M.D. [id number] PH ARTERIAL 7.36 Normal 7.35-7.45 [facility] Comment on above: Performed By: #### 4 8716 #### LAB [address] [address] Les Malone M.D. [id number] PO2 ARTERIAL 94 mm Hg Normal 80-100 [facility] Comment on above: Performed By: #### 4 8716 #### LAB [address] [address] Les Malone M.D. [id number] RESP RATE RAD 24 [facility] Comment on above: Performed By: #### 4 8716 #### LAB [address] [address] Les Malone M.D. [id number] SPECIMEN SOURCE RADIANCE Brachial, left [facility] Comment on above: Performed By: #### 4 8716 ####[facility] [address] [address] Les Malone M.D. [id number] TIDAL VOLUME RAD 450 Normal [facility] Comment on above: Performed By: #### 4 8716 ####[facility] [address] [id number] Les Malone M.D. [id number] 309.3 mm Hg [facility] Comment on above: Performed By: #### 4 8716 ####[facility] [address] [address] Les Malone M.D. [id number] BASE EXCESS, ARTERIAL 3.3 High -2.0-2.0 [facility] Comment on above: Performed By: #### 4 8716 #### LAB [address] [address] Les Malone M.D. [id number] FIO2 70 [facility] Comment on above: Performed By: #### 4 8716 ####[facility] [address] [address] Les Malone M.D. [id number] HCO3 (Bld) [Moles/Vol] 29.4 mmol/L High 22.0-26.0 [facility] Comment on above: Performed By: #### 4 8716 ####[facility] [address] [address] Les Malone M.D. [id number] Hematocrit (Bld) [Volume fraction] 26.2 % Low 41.0-53.0 [facility] Comment on above: Performed By: #### 4 8716 #### LAB [address] [address] Les Malone M.D. [id number] Hemoglobin (Bld) [Mass/Vol] 8.5 g/dL Low 13.5-17.5 [facility] Comment on above: Performed By: #### 4 8716 ####[facility] [address] [address] Les Malone M.D. [id number] Oxygen saturation in Blood 98.7 % Normal 92.0-99.0 [facility] Comment on above: Performed By: #### 4 8716 #### LAB [address] [address] Les Malone M.D. [id number] PCO2 ARTERIAL 52.7 mm Hg High 35.0-45.0 [facility] Comment on above: Performed By: #### 4 8716 ####[facility] [address] [address] Les Malone M.D. [id number] PEEP RAD 8 [facility] Comment on above: Performed By: #### 4 8716 ####[facility] [address] [address] Les Malone M.D. [id number] PH ARTERIAL 7.36 Normal 7.35-7.45 [facility] Comment on above: Performed By: #### 4 8716 ####[facility] [address] [address] Les Malone M.D. [id number] PO2 ARTERIAL 112 mm Hg High 80-100 [facility] Comment on above: Performed By: #### 4 8716 #### LAB [address] [address] Les Malone M.D. [id number] RESP RATE RAD 24 [facility] Comment on above: Performed By: #### 4 8716 #### LAB [address] [address] Les Malone M.D. [id number] SPECIMEN SOURCE RADIANCE Brachial, left [facility] Comment on above: Performed By: #### 4 8716 #### LAB [address] [address] Les Malone M.D. [id number] TIDAL VOLUME RAD 450 [facility] Comment on above: Performed By: #### 4 8716 ####[facility] [address] [address] Les Malone M.D. [id number] POC GLUCOSE - [facility] 024 Glucose [Mass/Vol] 179 mg/dL High [address] [place] [address] Comment on above: Performed By: #### 4 6932 #### LAB [address] [address] Les Malone M.D. [id number] Glucose [Mass/Vol] 184 mg/dL High [address] [place] [address] Comment on above: Performed By: #### 4 6932 #### LAB [address] [address] Les Malone M.D. [id number] Glucose [Mass/Vol] 172 mg/dL High [address] [place] [address] Comment on above: Performed By: #### 4 6932 #### LAB [address] [address] Les Malone M.D. [id number] POTASSIUM LEVELon 01-05-2024 Potassium [Moles/Vol] 5.1 mmol/L Normal 3.5-5.1 [facility] Comment on above: Performed By: #### 4 6351 #### LAB [address] [address] Les Malone M.D. [id number] Potassium [Moles/Vol] 5.8 mmol/L High 3.5-5.1 [facility] Comment on above: Performed By: #### 4 6351 #### LAB [address] [address] Les Malone M.D. [id number] Potassium [Moles/Vol] 7.0 mmol/L Off scale high 3.5-5.1 [facility] Comment on above: Performed By: #### 4 6351 #### LAB [address] [address] Les Malone M.D. [id number] URINALYSISon 01-05-2024 BACTERIA, URINE Rare Abnormal None Seen [facility] Comment on above: Order Comment: Micro scopic examination is performed on all urinalysis samples and only positive findings are reported. The test for blood on the chemical analytic portion of urinalysis may also be positive due to hemoglobinuria and myoglobinuria and if red blood cells are present they are quantified by microscopic examination. Performed By: #### 4 6625 #### LAB [address] [address] Les Malone M.D. [id number] BILIRUBIN, URINE Negative Normal Negative [facility] Comment on above: Order Comment: Micro scopic examination is performed on all urinalysis samples and only positive findings are reported. The test for blood on the chemical analytic portion of urinalysis may also be positive due to hemoglobinuria and myoglobinuria and if red blood cells are present they are quantified by microscopic examination. Performed By: #### 4 6625 #### LAB [address] [address] Les Malone M.D. [id number] BLOOD, URINE Negative Normal Negative [facility] Comment on above: Order Comment: Micro scopic examination is performed on all urinalysis samples and only positive findings are reported. The test for blood on the chemical analytic portion of urinalysis may also be positive due to hemoglobinuria and myoglobinuria and if red blood cells are present they are quantified by microscopic examination. Performed By: #### 4 6625 #### LAB [address] [address] Les Malone M.D. [id number] Clarity (U) Clear Normal Clear [facility] Comment on above: Order Comment: Micro scopic examination is performed on all urinalysis samples and only positive findings are reported. The test for blood on the chemical analytic portion of urinalysis may also be positive due to hemoglobinuria and myoglobinuria and if red blood cells are present they are quantified by microscopic examination. Performed By: #### 4 6625 #### LAB [address] [address] Les Malone M.D. [id number] Color (U) Yellow Normal Colorless, Yellow [facility] Comment on above: Order Comment: Micro scopic examination is performed on all urinalysis samples and only positive findings are reported. The test for blood on the chemical analytic portion of urinalysis may also be positive due to hemoglobinuria and myoglobinuria and if red blood cells are present they are quantified by microscopic examination. Performed By: #### 4 6625 #### LAB [address] [address] Les Malone M.D. [id number] Glucose Ql (U) Negative Normal Negative [facility] Comment on above: Order Comment: Micro scopic examination is performed on all urinalysis samples and only positive findings are reported. The test for blood on the chemical analytic portion of urinalysis may also be positive due to hemoglobinuria and myoglobinuria and if red blood cells are present they are quantified by microscopic examination. Performed By: #### 4 6625 #### LAB [address] [address] Les Malone M.D. [id number] Hyaline casts LM Ql (Urine sed) 0-2 Normal 0-2 [facility] Comment on above: Order Comment: Micro scopic examination is performed on all urinalysis samples and only positive findings are reported. The test for blood on the chemical analytic portion of urinalysis may also be positive due to hemoglobinuria and myoglobinuria and if red blood cells are present they are quantified by microscopic examination. Performed By: #### 4 6625 #### LAB [address] [address] Les Malone M.D. [id number] Ketones Ql (U) Negative Normal Negative [facility] Comment on above: Order Comment: Micro scopic examination is performed on all urinalysis samples and only positive findings are reported. The test for blood on the chemical analytic portion of urinalysis may also be positive due to hemoglobinuria and myoglobinuria and if red blood cells are present they are quantified by microscopic examination. Performed By: #### 4 6625 #### LAB [address] [address] Les Malone M.D. [id number] Leukocyte esterase Test strip Ql (U) Trace Abnormal Negative [facility] Comment on above: Order Comment: Micro scopic examination is performed on all urinalysis samples and only positive findings are reported. The test for blood on the chemical analytic portion of urinalysis may also be positive due to hemoglobinuria and myoglobinuria and if red blood cells are present they are quantified by microscopic examination. Performed By: #### 4 6625 #### LAB [address] [id number] Les Malone M.D. [id number] MUCUS, URINE Rare Normal None Seen, Rare [facility] Comment on above: Order Comment: Micro scopic examination is performed on all urinalysis samples and only positive findings are reported. The test for blood on the chemical analytic portion of urinalysis may also be positive due to hemoglobinuria and myoglobinuria and if red blood cells are present they are quantified by microscopic examination. Performed By: #### 4 6625 #### LAB [address] [address] Les Malone M.D. [id number] NITRITE, URINE Negative Normal Negative [facility] Comment on above: Order Comment: Micro scopic examination is performed on all urinalysis samples and only positive findings are reported. The test for blood on the chemical analytic portion of urinalysis may also be positive due to hemoglobinuria and myoglobinuria and if red blood cells are present they are quantified by microscopic examination. Performed By: #### 4 6625 #### LAB [address] [address] Les Malone M.D. [id number] pH (U) 6.0 [pH] Normal 5.0-7.0 [facility] Comment on above: Order Comment: Micro scopic examination is performed on all urinalysis samples and only positive findings are reported. The test for blood on the chemical analytic portion of urinalysis may also be positive due to hemoglobinuria and myoglobinuria and if red blood cells are present they are quantified by microscopic examination. Performed By: #### 4 6625 #### LAB [address] [id number] Les Malone M.D. [id number] PROTEIN, URINE Negative Normal Negative [facility] Comment on above: Order Comment: Micro scopic examination is performed on all urinalysis samples and only positive findings are reported. The test for blood on the chemical analytic portion of urinalysis may also be positive due to hemoglobinuria and myoglobinuria and if red blood cells are present they are quantified by microscopic examination. Performed By: #### 4 6625 #### LAB [address] [address] Les Malone M.D. [id number] RBC, URINE < Normal 0-3 [facility] Comment on above: Order Comment: Micro scopic examination is performed on all urinalysis samples and only positive findings are reported. The test for blood on the chemical analytic portion of urinalysis may also be positive due to hemoglobinuria and myoglobinuria and if red blood cells are present they are quantified by microscopic examination. Performed By: #### 4 6625 #### LAB [address] [address] Les Malone M.D. [id number] Specific gravity (U) [Rel density] 1.025 Normal 1.005-1.025 [facility] Comment on above: Order Comment: Micro scopic examination is performed on all urinalysis samples and only positive findings are reported. The test for blood on the chemical analytic portion of urinalysis may also be positive due to hemoglobinuria and myoglobinuria and if red blood cells are present they are quantified by microscopic examination. Performed By: #### 4 6625 #### LAB [address] [address] Les Malone M.D. [id number] UROBILINOGEN, URINE <2.0 Normal <2.0 [facility] Comment on above: Order Comment: Micro scopic examination is performed on all urinalysis samples and only positive findings are reported. The test for blood on the chemical analytic portion of urinalysis may also be positive due to hemoglobinuria and myoglobinuria and if red blood cells are present they are quantified by microscopic examination. Performed By: #### 4 6625 #### LAB [address] [address] Les Malone M.D. [id number] WBC LM.HPF (Urine sed) [#/Area] 3 /[HPF] Normal 0-5 [facility] Comment on above: Order Comment: Micro scopic examination is performed on all urinalysis samples and only positive findings are reported. The test for blood on the chemical analytic portion of urinalysis may also be positive due to hemoglobinuria and myoglobinuria and if red blood cells are present they are quantified by microscopic examination. Performed By: #### 4 6625 #### LAB [address] [address] Les Malone M.D. [id number] URINE AEROBIC CULTUREon URINE AEROBIC CULTURE URINE CULTURE No Growth (<1,000 CFU/mL) Normal [facility] Comment on above: Performed By: #### 4 4053 ####[facility] [address] Yonny Toro M.D. [id number] CALCIUM, IONIZEDon CALCIUM IONIZED 4.5 mg/dL Normal 4.5-5.3 [facility] Comment on above: Performed By: #### 4 5190 #### LAB [address] [address] Les Malone M.D. [id number] CBCon 01-04-2024 AUTO NRBC 0.7 % Normal [facility] Comment on above: Performed By: #### 4 [id number] #### LAB [address] [address] Les Malone M.D. [id number] AUTO NRBC ABS COUNT 0.09 K/mcL High 0.00-0.00 [facility] Comment on above: Performed By: #### 4 5218 #### LAB [address] [address] Les Malone M.D. [id number] Erythrocyte distribution width (RBC) [Ratio] 15.4 % High 11.6-14.8 [facility] Comment on above: Performed By: #### 4 5218 #### LAB [address] [address] Les Malone M.D. [id number] Hematocrit (Bld) [Volume fraction] 25.2 % Low 41.0-53.0 [facility] Comment on above: Performed By: #### 4 5218 #### LAB [address] [address] Les Malone M.D. [id number] Hemoglobin (Bld) [Mass/Vol] 7.8 g/dL Low 13.5-17.5 [facility] Comment on above: Performed By: #### 4 5218 #### LAB [address] [address] Les Malone M.D. [id number] MCH (RBC) [Entitic mass] 29.0 pg Normal 26.0-34.0 [facility] Comment on above: Performed By: #### 4 5218 #### LAB [address] [address] Les Malone M.D. [id number] MCV (RBC) [Entitic vol] 93.7 fL Normal 80.0-100.0 [facility] Comment on above: Performed By: #### 4 5218 #### LAB [address] [address] Les Malone M.D. [id number] MEAN CORPUSCULAR HEMOGLOBIN CONC 31.0 g/dL Normal 31.0-37.0 [facility] Comment on above: Performed By: #### 4 5218 #### LAB [address] [address] Les Malone M.D. [id number] Platelet mean volume (Bld) [Entitic vol] 10.7 fL Normal 9.4-12.4 [facility] Comment on above: Performed By: #### 4 5218 #### LAB [address] [address] Les Malone M.D. [id number] Platelets (Bld) [#/Vol] 266 10*3/uL Normal 150-400 [facility] Comment on above: Performed By: #### 4 5218 #### LAB [address] [address] Les Malone M.D. [id number] RBC (Bld) [#/Vol] 2.69 10*6/uL Low 4.50-5.90 [facility] Comment on above: Performed By: #### 4 5218 #### LAB [address] [place], [place] [address] Les Malone M.D. [id number] WBC (Bld) [#/Vol] 13.30 10*3/uL High 4.50-11.00 [facility] [place] Comment on above: Performed By: #### 4 5218 #### LAB [address] [place], [place] [address] Les Malone M.D. [id number] CHEM 701-04-2024 Anion gap [Moles/Vol] 12 mmol/L Normal 10-20 [facility] Comment on above: Order Comment: [facility] has implemented the eGFR calculation approach that does not have a coefficient for race that conforms to the NKF-ASN Task Force Recommendations. Performed By: #### 4 6953 #### LAB [address] [address] Les Malone M.D. [id number] Chloride [Moles/Vol] 109 mmol/L High 98-108 [facility] [place] Comment on above: Order Comment: [facility] has implemented the eGFR calculation approach that does not have a coefficient for race that conforms to the NKF-ASN Task Force Recommendations. Performed By: #### 4 6953 #### LAB [address] [place], [place] [address] Les Malone M.D. [id number] Creatinine [Mass/Vol] 1.04 mg/dL Normal 0.50-1.30 [facility] Comment on above: Order Comment: [facility] has implemented the eGFR calculation approach that does not have a coefficient for race that conforms to the NKF-ASN Task Force Recommendations. Performed By: #### 4 6953 #### LAB [address] [place], [place] [address] Les Malone M.D. [id number] EGFR 90 mL/min/1.73 m2 Normal >=60 [facility] Comment on above: Order Comment: [facility] has implemented the eGFR calculation approach that does not have a coefficient for race that conforms to the NKF-ASN Task Force Recommendations. Result Comment: Fanta mated GFR was calculated using the 2020 CKD-EPI creatinine equation. Performed By: #### 4 6953 ####[facility] [address] [address] Les Malone M.D. [id number] Glucose [Mass/Vol] 142 mg/dL High 65-99 [facility] Comment on above: Order Comment: [facility] has implemented the eGFR calculation approach that does not have a coefficient for race that conforms to the NKF-ASN Task Force Recommendations. Performed By: #### 4 6953 #### LAB [address] [address] Les Malone M.D. [id number] HCO3 (Bld) [Moles/Vol] 26 mmol/L Normal 21-32 [facility] Comment on above: Order Comment: [facility] has implemented the eGFR calculation approach that does not have a coefficient for race that conforms to the NKF-ASN Task Force Recommendations. Performed By: #### 4 6953 #### LAB [address] [address] Les Malone M.D. [id number] Potassium [Moles/Vol] 3.8 mmol/L Normal 3.5-5.1 [facility] Comment on above: Order Comment: [facility] has implemented the eGFR calculation approach that does not have a coefficient for race that conforms to the NKF-ASN Task Force Recommendations. Performed By: #### 4 6953 ####[facility] [address] [address] Les Malone M.D. [id number] Sodium [Moles/Vol] 143 mmol/L Normal 135-145 [facility] Comment on above: Order Comment: [facility] has implemented the eGFR calculation approach that does not have a coefficient for race that conforms to the NKF-ASN Task Force Recommendations. Performed By: #### 4 6953 #### LAB [address] [place], [place] [address] Les Malone M.D. [id number] Urea nitrogen [Mass/Vol] 26 mg/dL High 8-25 [facility] Comment on above: Order Comment: [facility] has implemented the eGFR calculation approach that does not have a coefficient for race that conforms to the NKF-ASN Task Force Recommendations. Performed By: #### 4 6953 #### LAB [address] [address] Les Malone M.D. [id number] Urea nitrogen/Creatinine [Mass ratio] 25.0 mg/mg High 10.0-20.0 [facility] Comment on above: Order Comment: [facility] has implemented the eGFR calculation approach that does not have a coefficient for race that conforms to the NKF-ASN Task Force Recommendations. Performed By: #### 4 6953 #### LAB [address] [address] Les Malone M.D. [id number] MAGNESIUM LEVELon 01-04-2024 Magnesium [Mass/Vol] 2.3 mg/dL Normal 1.6-2.4 [facility] Comment on above: Performed By: #### 4 6109 #### LAB [address] [address] Les Malone M.D. [id number] PHOSPHORUSon 01-04-2024 Phosphate [Mass/Vol] 3.2 mg/dL Normal 2.7-4.5 [facility] [place] Comment on above: Performed By: #### 4 6299 ####[facility] LAB [address] [address] Les Malone M.D. [id number] POC ARTERIAL BLOOD GAS PANEL -[facility] 01-04-2024 [id number] 328.8 mm Hg Normal [facility] Comment on above: Performed By: #### 4 8716 #### LAB [address] [address] Les Malone M.D. [id number] BASE EXCESS, ARTERIAL 2.4 High -2.0-2.0 [facility] Comment on above: Performed By: #### 4 8716 #### LAB [address] [address] Les Malone M.D. [id number] FIO2 80 [facility] Comment on above: Performed By: #### 4 8716 #### LAB [address] [address] Les Malone M.D. [id number] HCO3 (Bld) [Moles/Vol] 28.5 mmol/L High 22.0-26.0 [facility] Comment on above: Performed By: #### 4 8716 #### LAB [address] [address] Les Malone M.D. [id number] Hematocrit (Bld) [Volume fraction] 36.4 % Low 41.0-53.0 [facility] Comment on above: Performed By: #### 4 8716 #### LAB [address] [address] Les Malone M.D. [id number] Hemoglobin (Bld) [Mass/Vol] 11.9 g/dL Low 13.5-17.5 [facility] Comment on above: Performed By: #### 4 8716 #### LAB [address] [address] Les Malone M.D. [id number] Oxygen saturation in Blood 99.3 % High 92.0-99.0 [facility] Comment on above: Performed By: #### 4 8716 #### LAB [address] [address] Les Malone M.D. [id number] PCO2 ARTERIAL 49.6 mm Hg High 35.0-45.0 [facility] Comment on above: Performed By: #### 4 8716 ####[facility] [address] [address] Les Malone M.D. [id number] PEEP RAD 8 [facility] Comment on above: Performed By: #### 4 8716 ####[facility] LAB [address] [address] Les Malone M.D. [id number] PH ARTERIAL 7.37 Normal 7.35-7.45 [facility] Comment on above: Performed By: #### 4 8716 ####[facility] [address] [address] Les Malone M.D. [id number] PO2 ARTERIAL 161 mm Hg High 80-100 [facility] Comment on above: Performed By: #### 4 8716 ####[facility] [address] [address] Les Malone M.D. [id number] RESP RATE RAD 24 Normal [facility] Comment on above: Performed By: #### 4 8716 #### LAB [address] [address] Les Malone M.D. [id number] SPECIMEN SOURCE RADIANCE Brachial, left Normal [facility] Comment on above: Performed By: #### 4 8716 #### LAB [address] [address] Les Malone M.D. [id number] TIDAL VOLUME RAD 450 Normal [facility] Comment on above: Performed By: #### 4 8716 #### LAB [address] [address] Les Malone M.D. [id number] 382.0 mm Hg [facility] Comment on above: Performed By: #### 4 8716 #### LAB [address] [address] Les Malone M.D. [id number] BASE EXCESS, ARTERIAL 2.0 Normal -2.0-2.0 [facility] Comment on above: Performed By: #### 4 8716 #### LAB [address] [address] Les Malone M.D. [id number] CALCIUM IONIZED 4.5 mg/dL Normal 4.5-5.3 [facility] Comment on above: Performed By: #### 4 8716 ####[facility] LAB [address] [address] Les Malone M.D. [id number] CARBOXYHEMOGLOBIN < Normal <=1.5 [facility] Comment on above: Result Comment: Refe rence Ranges:Suburban Non-smokers: <1.5%Smokers: 1.5-5.0%Heavy Smokers: 5.0-9.0% Performed By: #### 4 8716 #### LAB [address] [address] Les Malone M.D. [id number] Chloride [Moles/Vol] 111 mmol/L High 98-108 [facility] Comment on above: Performed By: #### 4 8716 #### LAB [address] [address] Les Malone M.D. [id number] FIO2 80 Normal [facility] Comment on above: Performed By: #### 4 8716 #### LAB [address] [address] Les Malone M.D. [id number] Glucose [Mass/Vol] 143 mg/dL High 65-99 [facility] Comment on above: Performed By: #### 4 8716 #### LAB [address] [address] Les Malone M.D. [id number] HCO3 (Bld) [Moles/Vol] 28.3 mmol/L High 22.0-26.0 [facility] Comment on above: Performed By: #### 4 8716 #### LAB [address] [address] Les Malone M.D. [id number] Hematocrit (Bld) [Volume fraction] 24.7 % Low 41.0-53.0 [facility] Comment on above: Performed By: #### 4 8716 ####[facility] [address] [address] Les Malone M.D. [id number] Hemoglobin (Bld) [Mass/Vol] 8.1 g/dL Low 13.5-17.5 [facility] Comment on above: Performed By: #### 4 8716 #### LAB [address] [address] Les Malone M.D. [id number] LACTIC ACID, WHOLE BLOOD 1.1 mmol/L Normal 0.6-2.0 [facility] Comment on above: Performed By: #### 4 8716 #### LAB [address] [address] Les Malone M.D. [id number] METHEMOGLOBIN < Normal 0.0-2.0 [facility] Comment on above: Performed By: #### 4 8716 #### LAB [address] [address] Les Malone M.D. [id number] O2HB 96.6 % Normal 94.0-98.0 [facility] Comment on above: Performed By: #### 4 8716 #### LAB [address] [address] Les Malone M.D. [id number] Oxygen saturation in Blood 98.0 % Normal 92.0-99.0 [facility] Comment on above: Performed By: #### 4 8716 #### LAB [address] [address] Les Malone M.D. [id number] PCO2 ARTERIAL 52.6 mm Hg High 35.0-45.0 [facility] Comment on above: Performed By: #### 4 8716 ####[facility] [address] [address] Les Malone M.D. [id number] PEEP RAD 8 Normal [facility] Comment on above: Performed By: #### 4 8716 ####[facility] [address] [address] Les Malone M.D. [id number] PH ARTERIAL 7.34 Low 7.35-7.45 [facility] Comment on above: Performed By: #### 4 8716 ####[facility] [address] [address] Les Malone M.D. [id number] PO2 ARTERIAL 104 mm Hg High 80-100 [facility] Comment on above: Performed By: #### 4 8716 ####[facility] LAB [address] [place], [place] [address] Les Malone M.D. [id number] Potassium [Moles/Vol] 3.6 mmol/L Normal 3.5-5.1 [facility] Comment on above: Performed By: #### 4 8716 ####[facility] [address] [address] Les Malone M.D. [id number] RESP RATE RAD 22 [facility] Comment on above: Performed By: #### 4 8716 ####[facility] [address] [address] Les Malone M.D. [id number] Sodium [Moles/Vol] 147 mmol/L High 135-145 [facility] Comment on above: Performed By: #### 4 8716 ####[facility] [address] [address] Les Malone M.D. [id number] SPECIMEN SOURCE RADIANCE Brachial, left Normal [facility] Comment on above: Performed By: #### 4 8716 ####[facility] [address] [address] Les Malone M.D. [id number] TIDAL VOLUME RAD 450 [facility] Comment on above: Performed By: #### 4 8716 ####[facility] [address] [address] Les Malone M.D. [id number] POC GLUCOSE - [facility] 024 Glucose [Mass/Vol] 169 mg/dL High [address] [place] [address] Comment on above: Performed By: #### 4 6932 ####[facility] [address] [address] Les Malone M.D. [id number] Glucose [Mass/Vol] 118 mg/dL High [address] [place] [address] Comment on above: Performed By: #### 4 6932 ####[facility] [address] [address] Les Malone M.D. [id number] Glucose [Mass/Vol] 125 mg/dL High [address] [place] [address] Comment on above: Performed By: #### 4 6932 ####[facility] [address] [address] Les Malone M.D. [id number] Glucose [Mass/Vol] 142 mg/dL High [facility] Comment on above: Performed By: #### 4 6932 #### LAB [address] [address] Les Malone M.D. [id number] POTASSIUM LEVELon 01-04-2024 Potassium [Moles/Vol] 5.9 mmol/L High 3.5-5.1 [facility] Comment on above: Performed By: #### 4 6351 #### LAB [address] [address] Les Malone M.D. [id number] XR CHEST PA/APon 01-04-2024 XR CHEST PA/AP Normal [facility] Comment on above: Order Comment: Injur y/Trauma or Illness?:Illness/OtherHow long have you had these symptoms (acute/chronic)?:AcuteReason for exam?:vent mgmtHistory of cancer?:uSurgeries, chemotherapy, or radiation?:uType of Exam?:InitialAdditional signs and symptoms?:na CALCIUM, IONIZEDon 4 CALCIUM IONIZED 4.4 mg/dL Low 4.5-5.3 [facility] Comment on above: Performed By: #### 4 5190 #### LAB [address] [address] Les Malone M.D. [id number] CALCIUM IONIZED 4.2 mg/dL Low 4.5-5.3 [facility] Comment on above: Performed By: #### 4 5190 #### LAB [address] [address] Les Malone M.D. [id number] CALCIUM IONIZED 4.3 mg/dL Low 4.5-5.3 [facility] Comment on above: Performed By: #### 4 5190 #### LAB [address] [address] Les Malone M.D. [id number] CBCon 01-03-2024 AUTO NRBC 0.3 % Normal [facility] Comment on above: Performed By: #### 4 5218 #### LAB [address] [address] Les Malone M.D. [id number] AUTO NRBC ABS COUNT 0.03 K/mcL High 0.00-0.00 [facility] Comment on above: Performed By: #### 4 5218 #### LAB [address] [address] Les Malone M.D. [id number] Erythrocyte distribution width (RBC) [Ratio] 15.1 % High 11.6-14.8 [facility] Comment on above: Performed By: #### 4 5218 #### LAB [address] [address] Les Malone M.D. [id number] Hematocrit (Bld) [Volume fraction] 24.4 % Low 41.0-53.0 [facility] Comment on above: Performed By: #### 4 5218 #### LAB [address] [address] Les Malone M.D. [id number] Hemoglobin (Bld) [Mass/Vol] 7.8 g/dL Low 13.5-17.5 [facility] Comment on above: Performed By: #### 4 5218 #### LAB [address] [address] Les Malone M.D. [id number] MCH (RBC) [Entitic mass] 29.7 pg Normal 26.0-34.0 [facility] Comment on above: Performed By: #### 4 5218 #### LAB [address] [address] Les Malone M.D. [id number] MCV (RBC) [Entitic vol] 92.8 fL Normal 80.0-100.0 [facility] Comment on above: Performed By: #### 4 5218 #### LAB [address] [address] Les Malone M.D. [id number] MEAN CORPUSCULAR HEMOGLOBIN CONC 32.0 g/dL Normal 31.0-37.0 [facility] Comment on above: Performed By: #### 4 5218 #### LAB [address] [address] Les Malone M.D. [id number] Platelet mean volume (Bld) [Entitic vol] 10.9 fL Normal 9.4-12.4 [facility] Comment on above: Performed By: #### 4 5218 #### LAB [address] [address] Les Malone M.D. [id number] Platelets (Bld) [#/Vol] 230 10*3/uL Normal 150-400 [facility] Comment on above: Performed By: #### 4 5218 #### LAB [address] [address] Les Malone M.D. [id number] RBC (Bld) [#/Vol] 2.63 10*6/uL Low 4.50-5.90 [facility] Comment on above: Performed By: #### 4 5218 #### LAB [address] [address] Les Malone M.D. [id number] WBC (Bld) [#/Vol] 10.22 10*3/uL Normal 4.50-11.00 [facility] Comment on above: Performed By: #### 4 5218 #### LAB [address] [address] Les Malone M.D. [id number] CHEM 7on 01-03-2024 Anion gap [Moles/Vol] 13 mmol/L Normal 10-20 [facility] Comment on above: Order Comment: [facility] has implemented the eGFR calculation approach that does not have a coefficient for race that conforms to the NKF-ASN Task Force Recommendations. Performed By: #### 4 6953 #### LAB [address] [place], [place] [address] Les Malone M.D. [id number] Chloride [Moles/Vol] 104 mmol/L Normal 98-108 [facility] Comment on above: Order Comment: [facility] has implemented the eGFR calculation approach that does not have a coefficient for race that conforms to the NKF-ASN Task Force Recommendations. Performed By: #### 4 6953 #### LAB [address] [place], [place] [address] Les Malone M.D. [id number] Creatinine [Mass/Vol] 1.05 mg/dL Normal 0.50-1.30 [facility] Comment on above: Order Comment: [facility] has implemented the eGFR calculation approach that does not have a coefficient for race that conforms to the NKF-ASN Task Force Recommendations. Performed By: #### 4 6953 #### LAB [address] [place], [place] [address] Les Malone M.D. [id number] EGFR 89 mL/min/1.73 m2 Normal >=60 [facility] Comment on above: Order Comment: [facility] has implemented the eGFR calculation approach that does not have a coefficient for race that conforms to the NKF-ASN Task Force Recommendations. Result Comment: Fanta mated GFR was calculated using the 2020 CKD-EPI creatinine equation. Performed By: #### 4 6953 #### LAB [address] [place], [place] [address] Les Malone M.D. [id number] Glucose [Mass/Vol] 126 mg/dL High 65-99 [facility] Comment on above: Order Comment: [facility] has implemented the eGFR calculation approach that does not have a coefficient for race that conforms to the NKF-ASN Task Force Recommendations. Performed By: #### 4 6953 #### LAB [address] [address] Les Malone M.D. [id number] HCO3 (Bld) [Moles/Vol] 25 mmol/L Normal 21-32 [facility] Comment on above: Order Comment: [facility] has implemented the eGFR calculation approach that does not have a coefficient for race that conforms to the NKF-ASN Task Force Recommendations. Performed By: #### 4 6953 #### LAB [address] [address] Les Malone M.D. [id number] Potassium [Moles/Vol] 4.0 mmol/L Normal 3.5-5.1 [facility] Comment on above: Order Comment: [facility] has implemented the eGFR calculation approach that does not have a coefficient for race that conforms to the NKF-ASN Task Force Recommendations. Performed By: #### 4 6953 #### LAB [address] [place], [place] [address] Les Malone M.D. [id number] Sodium [Moles/Vol] 138 mmol/L Normal 135-145 [facility] Comment on above: Order Comment: [facility] has implemented the eGFR calculation approach that does not have a coefficient for race that conforms to the NKF-ASN Task Force Recommendations. Performed By: #### 4 6953 #### LAB [address] [place], [place] [address] eLs Malone M.D. [id number] Urea nitrogen [Mass/Vol] 22 mg/dL Normal 8-25 [facility] Comment on above: Order Comment: [facility] has implemented the eGFR calculation approach that does not have a coefficient for race that conforms to the NKF-ASN Task Force Recommendations. Performed By: #### 4 6953 #### LAB [address] [address] Les Malone M.D. [id number] Urea nitrogen/Creatinine [Mass ratio] 21.0 mg/mg High 10.0-20.0 [facility] Comment on above: Order Comment: [facility] has implemented the eGFR calculation approach that does not have a coefficient for race that conforms to the NKF-ASN Task Force Recommendations. Performed By: #### 4 6953 #### LAB [address] [address] Les Malone M.D. [id number] MAGNESIUM LEVELon 01-03-2024 Magnesium [Mass/Vol] 2.3 mg/dL Normal 1.6-2.4 [facility] Comment on above: Performed By: #### 4 6109 #### LAB [address] [address] Les Malone M.D. [id number] PHOSPHORUSon 01-03-2024 Phosphate [Mass/Vol] 2.8 mg/dL Normal 2.7-4.5 [facility] Comment on above: Performed By: #### 4 6299 ####[facility] LAB [address] [address] Les Malone M.D. [id number] Phosphate [Mass/Vol] 2.5 mg/dL Low 2.7-4.5 [facility] Comment on above: Performed By: #### 4 6299 ####[facility] [address] [address] Les Malone M.D. [id number] POC ARTERIAL BLOOD GAS PANEL [facility] 01-03-2024 [id number] 268.7 mm Hg Normal [facility] Comment on above: Performed By: #### 4 8716 #### LAB [address] [address] Les Malone M.D. [id number] BASE EXCESS, ARTERIAL 2.1 High -2.0-2.0 [facility] Comment on above: Performed By: #### 4 8716 ####[facility] [address] [address] Les Malone M.D. [id number] CALCIUM IONIZED 4.4 mg/dL Low 4.5-5.3 [facility] Comment on above: Performed By: #### 4 8716 ####[facility] [address] [address] Les Malone M.D. [id number] CARBOXYHEMOGLOBIN < Normal <=1.5 [facility] [place] Comment on above: Result Comment: Refe rence Ranges:Suburban Non-smokers: <1.5%Smokers: 1.5-5.0%Heavy Smokers: 5.0-9.0% Performed By: #### 4 8716 ####[facility] [address] [address] Les Malone M.D. [id number] Chloride [Moles/Vol] 104 mmol/L Normal 98-108 [facility] Comment on above: Performed By: #### 4 8716 ####[facility] [address] [address] Les Malone M.D. [id number] FIO2 60 Normal [facility] Comment on above: Performed By: #### 4 8716 ####[facility] [address] [address] Les Malone M.D. [id number] Glucose [Mass/Vol] 123 mg/dL High 65-99 [facility] Comment on above: Performed By: #### 4 8716 #### LAB [address] [address] Les Malone M.D. [id number] HCO3 (Bld) [Moles/Vol] 27.4 mmol/L High 22.0-26.0 [facility] Comment on above: Performed By: #### 4 8716 #### LAB [address] [address] Les Malone M.D. [id number] Hematocrit (Bld) [Volume fraction] 23.8 % Low 41.0-53.0 [facility] Comment on above: Performed By: #### 4 8716 ####[facility] [address] [address] Les Malone M.D. [id number] Hemoglobin (Bld) [Mass/Vol] 7.8 g/dL Low 13.5-17.5 [facility] Comment on above: Performed By: #### 4 8716 ####[facility] [address] [address] Les Malone M.D. [id number] LACTIC ACID, WHOLE BLOOD 1.2 mmol/L Normal 0.6-2.0 [facility] Comment on above: Performed By: #### 4 8716 #### LAB [address] [address] Les Malone M.D. [id number] METHEMOGLOBIN 1.1 % Normal 0.0-2.0 [facility] Comment on above: Performed By: #### 4 8716 ####[facility] [address] [address] Les Malone M.D. [id number] O2HB 95.9 % Normal 94.0-98.0 [facility] Comment on above: Performed By: #### 4 8716 #### LAB [address] [address] Les Malone M.D. [id number] Oxygen saturation in Blood 97.5 % Normal 92.0-99.0 [facility] Comment on above: Performed By: #### 4 8716 #### LAB [address] [address] Les Malone M.D. [id number] PCO2 ARTERIAL 45.6 mm Hg High 35.0-45.0 [facility] Comment on above: Performed By: #### 4 8716 #### LAB [address] [address] Les Malone M.D. [id number] PEEP RAD 8 Normal [facility] Comment on above: Performed By: #### 4 8716 ####[facility] [address] [address] Les Malone M.D. [id number] PH ARTERIAL 7.39 Normal 7.35-7.45 [facility] Comment on above: Performed By: #### 4 8716 ####[facility] [address] [address] Les Malone M.D. [id number] PO2 ARTERIAL 89 mm Hg Normal 80-100 [facility] Comment on above: Performed By: #### 4 8716 #### LAB [address] [address] Les Malone M.D. [id number] Potassium [Moles/Vol] 3.7 mmol/L Normal 3.5-5.1 [facility] Comment on above: Performed By: #### 4 8716 #### LAB [address] [address] Les Malone M.D. [id number] RESP RATE RAD 22 [facility] Comment on above: Performed By: #### 4 8716 #### LAB [address] [address] Les Malone M.D. [id number] Sodium [Moles/Vol] 138 mmol/L Normal 135-145 [facility] Comment on above: Performed By: #### 4 8716 ####[facility] [address] [address] Les Malone M.D. [id number] SPECIMEN SOURCE RADIANCE Not specified [facility] Comment on above: Performed By: #### 4 8716 ####[facility] [address] [address] Les Malone M.D. [id number] TIDAL VOLUME RAD 450 [facility] Comment on above: Performed By: #### 4 8716 #### LAB [address] [address] Les Malone M.D. [id number] POC GLUCOSE [facility] 024 Glucose [Mass/Vol] 139 mg/dL High 65-99 [facility] Comment on above: Performed By: #### 4 6932 ####[facility] [address] [address] Les Malone M.D. [id number] Glucose [Mass/Vol] 137 mg/dL High 6599 [facility] Comment on above: Performed By: #### 4 6932 ####[facility] [address] [address] Les Malone M.D. [id number] Glucose [Mass/Vol] 136 mg/dL High 65-99 [facility] Comment on above: Performed By: #### 4 6932 ####[facility] [address] [address] Les Malone M.D. [id number] POTASSIUM LEVELon 01-03-2024 Potassium [Moles/Vol] 4.1 mmol/L Normal 3.5-5.1 [facility] Comment on above: Performed By: #### 4 6351 ####[facility] [address] [address] Les Malone M.D. [id number] XR CHEST PA/APon 01-03-2024 XR CHEST PA/AP Normal [facility] Comment on above: Order Comment: Injur y/Trauma or Illness?:Illness/OtherHow long have you had these symptoms (acute/chronic)?:AcuteReason for exam?:DesaturationHistory of cancer?:uSurgeries, chemotherapy, or radiation?:uType of Exam?:InitialAdditional signs and symptoms?:. CALCIUM, IONIZEDon CALCIUM IONIZED 4.2 mg/dL Low 4.5-5.3 [facility] Comment on above: Performed By: #### 4 5190 ####[facility] [address] [address] Les Malone M.D. [id number] CALCIUM IONIZED 4.2 mg/dL Low 4.5-5.3 [facility] Comment on above: Performed By: #### 4 5190 ####[facility] [address] [address] Les Malone M.D. [id number] CBCon 01-02-2024 AUTO NRBC 0.0 % Normal [facility] Comment on above: Performed By: #### 4 5218 ####[facility] [address] [address] Les Malone M.D. [id number] AUTO NRBC ABS COUNT 0.00 K/mcL Normal 0.00-0.00 [facility] Comment on above: Performed By: #### 4 5218 #### LAB [address] [address] Les Malone M.D. [id number] Erythrocyte distribution width (RBC) [Ratio] 14.9 % High 11.6-14.8 [facility] Comment on above: Performed By: #### 4 5218 #### LAB [address] [address] Les Malone M.D. [id number] Hematocrit (Bld) [Volume fraction] 23.3 % Low 41.0-53.0 [facility] Comment on above: Performed By: #### 4 5218 #### LAB [address] [address] Les Malone M.D. [id number] Hemoglobin (Bld) [Mass/Vol] 7.6 g/dL Low 13.5-17.5 [facility] Comment on above: Performed By: #### 4 5218 #### LAB [address] [address] Les Malone M.D. [id number] MCH (RBC) [Entitic mass] 28.8 pg Normal 26.0-34.0 [facility] Comment on above: Performed By: #### 4 5218 #### LAB [address] [address] Les Malone M.D. [id number] MCV (RBC) [Entitic vol] 88.3 fL Normal 80.0-100.0 [facility] Comment on above: Performed By: #### 4 5218 #### LAB [address] [address] Les Malone M.D. [id number] MEAN CORPUSCULAR HEMOGLOBIN CONC 32.6 g/dL Normal 31.0-37.0 [facility] Comment on above: Performed By: #### 4 5218 #### LAB [address] [address] Les Malone M.D. [id number] Platelet mean volume (Bld) [Entitic vol] 10.7 fL Normal 9.4-12.4 [facility] Comment on above: Performed By: #### 4 5218 #### LAB [address] [address] Les Malone M.D. [id number] Platelets (Bld) [#/Vol] 220 10*3/uL Normal 150-400 [facility] Comment on above: Performed By: #### 4 5218 #### LAB [address] [address] Les Malone M.D. [id number] RBC (Bld) [#/Vol] 2.64 10*6/uL Low 4.50-5.90 [facility] Comment on above: Performed By: #### 4 5218 #### LAB [address] [address] Les Malone M.D. [id number] WBC (Bld) [#/Vol] 12.20 10*3/uL High 4.50-11.00 [facility] Comment on above: Performed By: #### 4 5218 ####[facility] [address] [address] Les Malone M.D. [id number] CHEM 701-02-2024 Anion gap [Moles/Vol] 13 mmol/L Normal 10-20 [facility] Comment on above: Order Comment: [facility] has implemented the eGFR calculation approach that does not have a coefficient for race that conforms to the NKF-ASN Task Force Recommendations. Performed By: #### 4 6953 #### LAB [address] [address] Les Malone M.D. [id number] Chloride [Moles/Vol] 106 mmol/L Normal 98-108 [facility] Comment on above: Order Comment: [facility] has implemented the eGFR calculation approach that does not have a coefficient for race that conforms to the NKF-ASN Task Force Recommendations. Performed By: #### 4 6953 #### LAB [address] [address] Les Malone M.D. [id number] Creatinine [Mass/Vol] 1.08 mg/dL Normal 0.50-1.30 [facility] Comment on above: Order Comment: [facility] has implemented the eGFR calculation approach that does not have a coefficient for race that conforms to the NKF-ASN Task Force Recommendations. Performed By: #### 4 6953 #### LAB [address] [address] Les Malone M.D. [id number] EGFR 86 mL/min/1.73 m2 Normal >=60 [facility] Comment on above: Order Comment: [facility] has implemented the eGFR calculation approach that does not have a coefficient for race that conforms to the NKF-ASN Task Force Recommendations. Result Comment: Fanta mated GFR was calculated using the 2020 CKD-EPI creatinine equation. Performed By: #### 4 6953 #### LAB [address] [address] Les Malone M.D. [id number] Glucose [Mass/Vol] 143 mg/dL High 65-99 [facility] Comment on above: Order Comment: [facility] has implemented the eGFR calculation approach that does not have a coefficient for race that conforms to the NKF-ASN Task Force Recommendations. Performed By: #### 4 6953 #### LAB [address] [address] Les Malone M.D. [id number] HCO3 (Bld) [Moles/Vol] 24 mmol/L Normal 21-32 [facility] Comment on above: Order Comment: [facility] has implemented the eGFR calculation approach that does not have a coefficient for race that conforms to the NKF-ASN Task Force Recommendations. Performed By: #### 4 6953 #### LAB [address] [address] Les Malone M.D. [id number] Potassium [Moles/Vol] 3.6 mmol/L Normal 3.5-5.1 [facility] Comment on above: Order Comment: [facility] has implemented the eGFR calculation approach that does not have a coefficient for race that conforms to the NKF-ASN Task Force Recommendations. Performed By: #### 4 6953 #### LAB [address] [place], [place] [address] Les Malone M.D. [id number] Sodium [Moles/Vol] 139 mmol/L Normal 135-145 [facility] Comment on above: Order Comment: [facility] has implemented the eGFR calculation approach that does not have a coefficient for race that conforms to the NKF-ASN Task Force Recommendations. Performed By: #### 4 6953 #### LAB [address] [place], [place] [address] Les Malone M.D. [id number] Urea nitrogen [Mass/Vol] 17 mg/dL Normal 8-25 [facility] Comment on above: Order Comment: [facility] has implemented the eGFR calculation approach that does not have a coefficient for race that conforms to the NKF-ASN Task Force Recommendations. Performed By: #### 4 6953 #### LAB [address] [place], [place] [address] Les Malone M.D. [id number] Urea nitrogen/Creatinine [Mass ratio] 15.7 mg/mg Normal 10.0-20.0 [facility] Comment on above: Order Comment: [facility] has implemented the eGFR calculation approach that does not have a coefficient for race that conforms to the NKF-ASN Task Force Recommendations. Performed By: #### 4 6953 #### LAB [address] [address] Les [address]one M.D. [id number] CT ANGIOGRAM CHEST ABDOMEN P ELVISon 01-02-2024 CT ANGIOGRAM CHEST ABDOMEN PELVIS Normal [facility] Comment on above: Order Comment: Injur y/Trauma or Illness?:Illness/OtherHow long have you had these symptoms (acute/chronic)?:AcuteReason for exam?:Questionable periaortic hematoma on admission CTType of Exam?:Subsequent/Follow-upAdditional signs and symptoms?:. CT HEAD OR BRAIN WITHOUT CON TRASTon 01-02-2024 CT HEAD OR BRAIN WITHOUT CONTRAST Normal [facility] Comment on above: Order Comment: Injur y/Trauma or Illness?:Illness/OtherHow long have you had these symptoms (acute/chronic)?:AcuteReason for exam?:Follow up IPH, s/p craniectomyType of Exam?:Subsequent/Follow-upAdditional signs and symptoms?:. MAGNESIUM LEVELon 01-02-2024 Magnesium [Mass/Vol] 1.9 mg/dL Normal 1.6-2.4 [facility] Comment on above: Performed By: #### 4 6109 #### LAB [address] [address] Les Malone M.D. [id number] Magnesium [Mass/Vol] 1.8 mg/dL Normal 1.6-2.4 [facility] Comment on above: Performed By: #### 4 6109 #### LAB [address] [address] Les Malone M.D. [id number] PHOSPHORUSon 01-02-2024 Phosphate [Mass/Vol] 2.6 mg/dL Low 2.7-4.5 [facility] Comment on above: Performed By: #### 4 6299 #### LAB [address] [address] Les Malone M.D. [id number] Phosphate [Mass/Vol] 2.2 mg/dL Low 2.7-4.5 [facility] Comment on above: Performed By: #### 4 6299 #### LAB [address] [address] Les Malone M.D. [id number] POC ARTERIAL BLOOD GAS PANEL -[facility] 01-02-2024 [id number] 275.8 mm Hg Normal [facility] Comment on above: Performed By: #### 4 8716 #### LAB [address] [address] Les Malone M.D. [id number] BASE EXCESS, ARTERIAL 2.0 Normal -2.0-2.0 [facility] Comment on above: Performed By: #### 4 8716 #### LAB [address] [address] Les Malone M.D. [id number] FIO2 60 Normal [facility] Comment on above: Performed By: #### 4 8716 #### LAB [address] [address] Les Malone M.D. [id number] HCO3 (Bld) [Moles/Vol] 27.3 mmol/L High 22.0-26.0 [facility] Comment on above: Performed By: #### 4 8716 ####[facility] [address] [address] Les Malone M.D. [id number] Hematocrit (Bld) [Volume fraction] 24.9 % Low 41.0-53.0 [facility] Comment on above: Performed By: #### 4 8716 ####[facility] [address] [address] Les Malone M.D. [id number] Hemoglobin (Bld) [Mass/Vol] 8.1 g/dL Low 13.5-17.5 [facility] Comment on above: Performed By: #### 4 8716 ####[facility] [address] [address] Les Malone M.D. [id number] Oxygen saturation in Blood 97.2 % Normal 92.0-99.0 [facility] Comment on above: Performed By: #### 4 8716 #### LAB [address] [address] Les Malone M.D. [id number] PCO2 ARTERIAL 45.2 mm Hg High 35.0-45.0 [facility] Comment on above: Performed By: #### 4 8716 ####[facility] [address] [address] Les Malone M.D. [id number] PEEP RAD 8 [facility] Comment on above: Performed By: #### 4 8716 ####[facility] [address] [address] Les Malone M.D. [id number] PH ARTERIAL 7.39 Normal 7.35-7.45 [facility] Comment on above: Performed By: #### 4 8716 #### LAB [address] [address] Les Malone M.D. [id number] PO2 ARTERIAL 83 mm Hg Normal 80-100 [facility] Comment on above: Performed By: #### 4 8716 #### LAB [address] [address] Les Malone M.D. [id number] RESP RATE RAD 22 [facility] Comment on above: Performed By: #### 4 8716 #### LAB [address] [address] Les Malone M.D. [id number] SPECIMEN SOURCE RADIANCE Brachial, right [facility] Comment on above: Performed By: #### 4 8716 #### LAB [address] [address] Les Malone M.D. [id number] TIDAL VOLUME RAD 450 Normal [facility] Comment on above: Performed By: #### 4 8716 #### LAB [address] [address] Les Malone M.D. [id number] 203.8 mm Hg [facility] Comment on above: Performed By: #### 4 8716 #### LAB [address] [address] Les Malone M.D. [id number] BASE EXCESS, ARTERIAL 1.6 Normal -2.0-2.0 [facility] Comment on above: Performed By: #### 4 8716 #### LAB [address] [address] Les Malone M.D. [id number] CALCIUM IONIZED 4.4 mg/dL Low 4.5-5.3 [facility] Comment on above: Performed By: #### 4 8716 #### LAB [address] [address] Les Malone M.D. [id number] CARBOXYHEMOGLOBIN < Normal <=1.5 [facility] Comment on above: Result Comment: Refe rence Ranges:Suburban Non-smokers: <1.5%Smokers: 1.5-5.0%Heavy Smokers: 5.0-9.0% Performed By: #### 4 8716 #### LAB [address] [address] Les Malone M.D. [id number] Chloride [Moles/Vol] 106 mmol/L Normal 98-108 [facility] Comment on above: Performed By: #### 4 8716 ####[facility] [address] [address] Les Malone M.D. [id number] FIO2 50 Normal [facility] Comment on above: Performed By: #### 4 8716 ####[facility] [address] [address] Les Malone M.D. [id number] Glucose [Mass/Vol] 144 mg/dL High 65-99 [facility] Comment on above: Performed By: #### 4 8716 ####[facility] [address] [address] Les Malone M.D. [id number] HCO3 (Bld) [Moles/Vol] 26.8 mmol/L High 22.0-26.0 [facility] Comment on above: Performed By: #### 4 8716 #### LAB [address] [address] Les Malone M.D. [id number] Hematocrit (Bld) [Volume fraction] 24.8 % Low 41.0-53.0 [facility] Comment on above: Performed By: #### 4 8716 ####[facility] [address] [address] Les Malone M.D. [id number] Hemoglobin (Bld) [Mass/Vol] 8.1 g/dL Low 13.5-17.5 [facility] Comment on above: Performed By: #### 4 8716 ####[facility] [address] [address] Les Malone M.D. [id number] LACTIC ACID, WHOLE BLOOD 1.9 mmol/L Normal 0.6-2.0 [facility] Comment on above: Performed By: #### 4 8716 #### LAB [address] [address] Les Malone M.D. [id number] METHEMOGLOBIN < Normal 0.0-2.0 [facility] Comment on above: Performed By: #### 4 8716 #### LAB [address] [address] Les Malone M.D. [id number] O2HB 96.5 % Normal 94.0-98.0 [facility] Comment on above: Performed By: #### 4 8716 #### LAB [address] [address] Les Malone M.D. [id number] Oxygen saturation in Blood 98.0 % Normal 92.0-99.0 [facility] Comment on above: Performed By: #### 4 8716 #### LAB [address] [address] Les Malone M.D. [id number] PCO2 ARTERIAL 44.0 mm Hg Normal 35.0-45.0 [facility] Comment on above: Performed By: #### 4 8716 #### LAB [address] [address] Les Malone M.D. [id number] PEEP RAD 5 Normal [facility] Comment on above: Performed By: #### 4 8716 #### LAB [address] [address] Les Malone M.D. [id number] PH ARTERIAL 7.39 Normal 7.35-7.45 [facility] Comment on above: Performed By: #### 4 8716 #### LAB [address] [address] Les Malone M.D. [id number] PO2 ARTERIAL 89 mm Hg Normal 80-100 [facility] Comment on above: Performed By: #### 4 8716 #### LAB [address] [address] Les Malone M.D. [id number] Potassium [Moles/Vol] 3.4 mmol/L Low 3.5-5.1 [facility] Comment on above: Performed By: #### 4 8716 #### LAB [address] [address] Les Malone M.D. [id number] RESP RATE RAD 22 [facility] Comment on above: Performed By: #### 4 8716 #### LAB [address] [address] Les Malone M.D. [id number] Sodium [Moles/Vol] 139 mmol/L Normal 135-145 [facility] Comment on above: Performed By: #### 4 8716 #### LAB [address] [address] Les Malone M.D. [id number] SPECIMEN SOURCE RADIANCE Not specified [facility] Comment on above: Performed By: #### 4 8716 #### LAB [address] [address] Les Maolne M.D. [id number] TIDAL VOLUME RAD 450 [facility] Comment on above: Performed By: #### 4 8716 #### LAB [address] [address] Les Malone M.D. [id number] POC GLUCOSE - [facility] 024 Glucose [Mass/Vol] 135 mg/dL High [address] [place] [address] Comment on above: Performed By: #### 4 6932 #### LAB [address] [address] Les Malone M.D. [id number] Glucose [Mass/Vol] 122 mg/dL [address] Comment on above: Performed By: #### 4 6932 #### LAB [address] [address] Les Malone M.D. [id number] Glucose [Mass/Vol] 130 mg/dL High 65-99 [facility] Comment on above: Performed By: #### 4 6932 #### LAB [address] [address] Les Malone M.D. [id number] Glucose [Mass/Vol] 137 mg/dL High 65-99 [facility] Comment on above: Performed By: #### 4 6932 #### LAB [address] [address] Les Malone M.D. [id number] POTASSIUM LEVELon 01-02-2024 Potassium [Moles/Vol] 3.9 mmol/L Normal 3.5-5.1 [facility] Comment on above: Performed By: #### 4 6351 #### LAB [address] [address] Les Malone M.D. [id number] TRIGLYCERIDESon 01-02-2024 Triglyceride [Mass/Vol] 198 mg/dL High 30-150 [facility] Comment on above: Result Comment: [place] [employer] Cholesterol Education [employer] Guidelines: TriglycerideNormal: <150 mg/dLBorderline High: 150-199 mg/dLHigh: 200-499 mg/dLVery High: greater than or equal to 500 mg/dL Performed By: #### 4 6606 #### LAB [address] [address] Les Malone M.D. [id number] XR CHEST PA/APon 01-02-2024 XR CHEST PA/AP Normal [facility] Comment on above: Order Comment: Injur y/Trauma or Illness?:Illness/OtherHow long have you had these symptoms (acute/chronic)?:AcuteReason for exam?:vent managementHistory of cancer?:uSurgeries, chemotherapy, or radiation?:uType of Exam?:InitialAdditional signs and symptoms?:. BASIC METABOLIC PANELon 12-04 Anion gap [Moles/Vol] 12 mmol/L Normal 10-20 [facility] Comment on above: Order Comment: [facility] has implemented the eGFR calculation approach that does not have a coefficient for race that conforms to the NKF-ASN Task Force Recommendations. Performed By: #### 4 6124 #### LAB [address] [address] Les Malone M.D. [id number] Calcium [Mass/Vol] 7.1 mg/dL Low 8.4-10.2 [facility] Comment on above: Order Comment: [facility] has implemented the eGFR calculation approach that does not have a coefficient for race that conforms to the NKF-ASN Task Force Recommendations. Performed By: #### 4 6124 #### LAB [address] [address] Les Malone M.D. [id number] Chloride [Moles/Vol] 110 mmol/L High 98-108 [facility] Comment on above: Order Comment: [facility] has implemented the eGFR calculation approach that does not have a coefficient for race that conforms to the NKF-ASN Task Force Recommendations. Performed By: #### 4 6124 #### LAB [address] [address] Les Malone M.D. [id number] Creatinine [Mass/Vol] 1.21 mg/dL Normal 0.50-1.30 [facility] Comment on above: Order Comment: [facility] has implemented the eGFR calculation approach that does not have a coefficient for race that conforms to the NKF-ASN Task Force Recommendations. Performed By: #### 4 6124 #### LAB [address] [address] Les Malone M.D. [id number] EGFR 75 mL/min/1.73 m2 Normal >=60 [facility] Comment on above: Order Comment: [facility] has implemented the eGFR calculation approach that does not have a coefficient for race that conforms to the NKF-ASN Task Force Recommendations. Result Comment: Fanta mated GFR was calculated using the 2020 CKD-EPI creatinine equation. Performed By: #### 4 6124 #### LAB [address] [address] Les Malone M.D. [id number] Glucose [Mass/Vol] 134 mg/dL High 65-99 [facility] Comment on above: Order Comment: [facility] has implemented the eGFR calculation approach that does not have a coefficient for race that conforms to the NKF-ASN Task Force Recommendations. Performed By: #### 4 6124 ####[facility] [address] [address] Les Malone M.D. [id number] HCO3 (Bld) [Moles/Vol] 24 mmol/L Normal 21-32 [facility] Comment on above: Order Comment: [facility] has implemented the eGFR calculation approach that does not have a coefficient for race that conforms to the NKF-ASN Task Force Recommendations. Performed By: #### 4 6124 #### LAB [address] [address] Les Malone M.D. [id number] Potassium [Moles/Vol] 4.1 mmol/L Normal 3.5-5.1 [facility] Comment on above: Order Comment: [facility] has implemented the eGFR calculation approach that does not have a coefficient for race that conforms to the NKF-ASN Task Force Recommendations. Performed By: #### 4 6174 ####[facility] [address] [address] Les Malone M.D. [id number] Sodium [Moles/Vol] 142 mmol/L Normal 135-145 [facility] Comment on above: Order Comment: [facility] has implemented the eGFR calculation approach that does not have a coefficient for race that conforms to the NKF-ASN Task Force Recommendations. Performed By: #### 4 6182 ####[facility] [address] [address] Les Malone M.D. [id number] Urea nitrogen [Mass/Vol] 15 mg/dL Normal 8-25 [facility] Comment on above: Order Comment: [facility] has implemented the eGFR calculation approach that does not have a coefficient for race that conforms to the NKF-ASN Task Force Recommendations. Performed By: #### 4 6124 #### LAB [address] [address] Les Malone M.D. [id number] Urea nitrogen/Creatinine [Mass ratio] 12.4 mg/mg Normal 10.0-20.0 [facility] Comment on above: Order Comment: [facility] has implemented the eGFR calculation approach that does not have a coefficient for race that conforms to the NKF-ASN Task Force Recommendations. Performed By: #### 4 6124 #### LAB [address] [address] Les Malone M.D. [id number] CALCIUM, IONIZEDon CALCIUM IONIZED 3.3 mg/dL Low 4.5-5.3 [facility] Comment on above: Performed By: #### 4 5190 #### LAB [address] [address] Les Malone M.D. [id number] CALCIUM IONIZED 4.2 mg/dL Low 4.5-5.3 [facility] Comment on above: Performed By: #### 4 5190 #### LAB [address] [address] Les Malone M.D. [id number] CALCIUM IONIZED 4.2 mg/dL Low 4.5-5.3 [facility] Comment on above: Performed By: #### 4 5190 #### LAB [address] [address] Les Malone M.D. [id number] CBCon 01-01-2024 AUTO NRBC 0.0 % Normal [facility] Comment on above: Performed By: #### 4 [id number] #### LAB [address] [address] Les Malone M.D. [id number] AUTO NRBC ABS COUNT 0.00 K/mcL Normal 0.00-0.00 [facility] Comment on above: Performed By: #### 4 [id number] #### LAB [address] [address] Les Malone M.D. [id number] Erythrocyte distribution width (RBC) [Ratio] 14.6 % Normal 11.6-14.8 [facility] Comment on above: Performed By: #### 4 [id number] #### LAB [address] [address] Les Malone M.D. [id number] Hematocrit (Bld) [Volume fraction] 25.2 % Low 41.0-53.0 [facility] Comment on above: Performed By: #### 4 [id number] #### LAB [address] [address] Les Malone M.D. [id number] Hemoglobin (Bld) [Mass/Vol] 8.2 g/dL Low 13.5-17.5 [facility] Comment on above: Performed By: #### 4 [id number] #### LAB [address] [address] Les Malone M.D. [id number] MCH (RBC) [Entitic mass] 29.3 pg Normal 26.0-34.0 [facility] Comment on above: Performed By: #### 4 [id number] #### LAB [address] [address] Les Malone M.D. [id number] MCV (RBC) [Entitic vol] 90.0 fL Normal 80.0-100.0 [facility] Comment on above: Performed By: #### 4 [id number] #### LAB [address] [address] Les Malone M.D. [id number] MEAN CORPUSCULAR HEMOGLOBIN CONC 32.5 g/dL Normal 31.0-37.0 [facility] Comment on above: Performed By: #### 4 [id number] #### LAB [address] [address] Les Malone M.D. [id number] Platelet mean volume (Bld) [Entitic vol] 10.8 fL Normal 9.4-12.4 [facility] Comment on above: Performed By: #### 4 5218 #### LAB [address] [place], [place] [address] Les Malone M.D. [id number] Platelets (Bld) [#/Vol] 195 10*3/uL Normal 150-400 [facility] Comment on above: Performed By: #### 4 5218 #### LAB [address] [address] Les Malone M.D. [id number] RBC (Bld) [#/Vol] 2.80 10*6/uL Low 4.50-5.90 [facility] Comment on above: Performed By: #### 4 [id number] #### LAB [address] [address] Les Malone M.D. [id number] WBC (Bld) [#/Vol] 14.24 10*3/uL High 4.50-11.00 [facility] Comment on above: Performed By: #### 4 [id number] #### LAB [address] [address] Les Malone M.D. [id number] CT HEAD OR BRAIN WITHOUT CON TRASTon 01-01-2024 CT HEAD OR BRAIN WITHOUT CONTRAST Normal [facility] Comment on above: Order Comment: Injur y/Trauma or Illness?:Illness/OtherHow long have you had these symptoms (acute/chronic)?:AcuteReason for exam?:severe TBI, post craniectomy, EVDType of Exam?:Subsequent/Follow-upAdditional signs and symptoms?:n MAGNESIUM LEVELon 01-01-2024 Magnesium [Mass/Vol] 2.1 mg/dL Normal 1.6-2.4 [facility] Comment on above: Performed By: #### 4 6109 #### LAB [address] [address] Les Malone M.D. [id number] PHOSPHORUSon 01-01-2024 Phosphate [Mass/Vol] 1.6 mg/dL Low 2.7-4.5 [facility] Comment on above: Performed By: #### 4 6299 #### LAB [address] [address] Les Malone M.D. [id number] Phosphate [Mass/Vol] 1.9 mg/dL Low 2.7-4.5 [facility] Comment on above: Performed By: #### 4 6299 #### LAB [address] [address] Les Malone M.D. [id number] POC ARTERIAL BLOOD GAS PANEL -[facility] 01-01-2024 [id number] 203.5 mm Hg Normal [facility] Comment on above: Performed By: #### 4 8716 ####[facility] [address] [address] Les Malone M.D. [id number] BASE EXCESS, ARTERIAL -1.5 Normal -2.0-2.0 [facility] Comment on above: Performed By: #### 4 8716 #### LAB [address] [address] Les Malone M.D. [id number] FIO2 60 Normal [facility] Comment on above: Performed By: #### 4 8716 #### LAB [address] [address] Les Malone M.D. [id number] HCO3 (Bld) [Moles/Vol] 24.1 mmol/L Normal 22.0-26.0 [facility] Comment on above: Performed By: #### 4 8716 #### LAB [address] [address] Les Malone M.D. [id number] Hematocrit (Bld) [Volume fraction] 27.7 % Low 41.0-53.0 [facility] Comment on above: Performed By: #### 4 8716 #### LAB [address] [address] Les Malone M.D. [id number] Hemoglobin (Bld) [Mass/Vol] 9.0 g/dL Low 13.5-17.5 [facility] Comment on above: Performed By: #### 4 8716 #### LAB [address] [address] Les Malone M.D. [id number] Oxygen saturation in Blood 99.4 % High 92.0-99.0 [facility] Comment on above: Performed By: #### 4 8716 #### LAB [address] [address] Les Malone M.D. [id number] PCO2 ARTERIAL 43.7 mm Hg Normal 35.0-45.0 [facility] Comment on above: Performed By: #### 4 8716 ####[facility] [address] [address] Les Malone M.D. [id number] PEEP RAD 8 [facility] Comment on above: Performed By: #### 4 8716 ####[facility] [address] [address] Les Malone M.D. [id number] PH ARTERIAL 7.35 Normal 7.35-7.45 [facility] Comment on above: Performed By: #### 4 8716 ####[facility] [address] [address] Les Malone M.D. [id number] PO2 ARTERIAL 159 mm Hg High 80-100 [facility] Comment on above: Performed By: #### 4 8716 #### LAB [address] [address] Les Malone M.D. [id number] RESP RATE RAD 22 [facility] Comment on above: Performed By: #### 4 8716 #### LAB [address] [address] Les Malone M.D. [id number] SPECIMEN SOURCE RADIANCE Brachial, right [facility] Comment on above: Performed By: #### 4 8716 ####[facility] [address] [address] Les Malone M.D. [id number] TIDAL VOLUME RAD 450 [facility] Comment on above: Performed By: #### 4 8716 ####[facility] [address] [address] Les Malone M.D. [id number] POC GLUCOSE - RALSon 024 Glucose [Mass/Vol] 145 mg/dL High [address] [place] [address] Comment on above: Performed By: #### 4 6932 ####[facility] [address] [address] Les Malone M.D. [id number] Glucose [Mass/Vol] 141 mg/dL [address] Comment on above: Performed By: #### 4 6932 ####[facility] [address] [address] Les Malone M.D. [id number] Glucose [Mass/Vol] 155 mg/dL [address] Comment on above: Performed By: #### 4 6932 #### LAB [address] [address] Les Malone M.D. [id number] Glucose [Mass/Vol] 145 mg/dL [address] Comment on above: Performed By: #### 4 6932 #### LAB [address] [address] Les Malone M.D. [id number] Glucose [Mass/Vol] 145 mg/dL [address] Comment on above: Performed By: #### 4 6932 #### LAB [address] [address] Les Malone M.D. [id number] POTASSIUM LEVELon 01-01-2024 Potassium [Moles/Vol] 3.8 mmol/L Normal 3.5-5.1 [facility] Comment on above: Performed By: #### 4 6351 ####[facility] [address] [address] Les Malone M.D. [id number] XR CHEST PA/APon 01-01-2024 XR CHEST PA/AP [facility] Comment on above: Order Comment: Injur y/Trauma or Illness?:Illness/OtherHow long have you had these symptoms (acute/chronic)?:AcuteReason for exam?:vent managementHistory of cancer?:uSurgeries, chemotherapy, or radiation?:uType of Exam?:InitialAdditional signs and symptoms?:. BASIC METABOLIC PANELon 12-04 Anion gap [Moles/Vol] 14 mmol/L Normal 10-20 [facility] Comment on above: Order Comment: [facility] has implemented the eGFR calculation approach that does not have a coefficient for race that conforms to the NKF-ASN Task Force Recommendations. Performed By: #### 4 6124 #### LAB [address] [address] Les Malone M.D. [id number] Calcium [Mass/Vol] 7.4 mg/dL Low 8.4-10.2 [facility] Comment on above: Order Comment: [facility] has implemented the eGFR calculation approach that does not have a coefficient for race that conforms to the NKF-ASN Task Force Recommendations. Performed By: #### 4 6124 #### LAB [address] [address] Les Malone M.D. [id number] Chloride [Moles/Vol] 109 mmol/L High 98-108 [facility] Comment on above: Order Comment: [facility] has implemented the eGFR calculation approach that does not have a coefficient for race that conforms to the NKF-ASN Task Force Recommendations. Performed By: #### 4 6124 #### LAB [address] [place], [place] [address] Les Malone M.D. [id number] Creatinine [Mass/Vol] 1.40 mg/dL High 0.50-1.30 [facility] Comment on above: Order Comment: [facility] has implemented the eGFR calculation approach that does not have a coefficient for race that conforms to the NKF-ASN Task Force Recommendations. Performed By: #### 4 6124 #### LAB [address] [address] Les Malone M.D. [id number] EGFR 63 mL/min/1.73 m2 Normal >=60 [facility] Comment on above: Order Comment: [facility] has implemented the eGFR calculation approach that does not have a coefficient for race that conforms to the NKF-ASN Task Force Recommendations. Result Comment: Fanta mated GFR was calculated using the 2020 CKD-EPI creatinine equation. Performed By: #### 4 6142 #### LAB [address] [address] Les Malone M.D. [id number] Glucose [Mass/Vol] 159 mg/dL High 65-99 [facility] Comment on above: Order Comment: [facility] has implemented the eGFR calculation approach that does not have a coefficient for race that conforms to the NKF-ASN Task Force Recommendations. Performed By: #### 4 6198 #### LAB [address] [address] Les Malone M.D. [id number] HCO3 (Bld) [Moles/Vol] 21 mmol/L Normal 21-32 [facility] Comment on above: Order Comment: [facility] has implemented the eGFR calculation approach that does not have a coefficient for race that conforms to the NKF-ASN Task Force Recommendations. Performed By: #### 4 6178 #### LAB [address] [address] Les Malone M.D. [id number] Potassium [Moles/Vol] 4.7 mmol/L Normal 3.5-5.1 [facility] Comment on above: Order Comment: [facility] has implemented the eGFR calculation approach that does not have a coefficient for race that conforms to the NKF-ASN Task Force Recommendations. Performed By: #### 4 6189 ####[facility] [address] [address] Les Malone M.D. [id number] Sodium [Moles/Vol] 139 mmol/L Normal 135-145 [facility] Comment on above: Order Comment: [facility] has implemented the eGFR calculation approach that does not have a coefficient for race that conforms to the NKF-ASN Task Force Recommendations. Performed By: #### 4 4471 ####[facility] [address] [address] Les Malone M.D. [id number] Urea nitrogen [Mass/Vol] 12 mg/dL Normal 8-25 [facility] Comment on above: Order Comment: [facility] has implemented the eGFR calculation approach that does not have a coefficient for race that conforms to the NKF-ASN Task Force Recommendations. Performed By: #### 4 6124 #### LAB [address] [address] Les Malone M.D. [id number] Urea nitrogen/Creatinine [Mass ratio] 8.6 mg/mg Low 10.0-20.0 [facility] Comment on above: Order Comment: [facility] has implemented the eGFR calculation approach that does not have a coefficient for race that conforms to the NKF-ASN Task Force Recommendations. Performed By: #### 4 6124 #### LAB [address] [place] [address] Les Malone M.D. [id number] CBCon 12-31-2023 AUTO NRBC 0.0 % Normal [facility] Comment on above: Performed By: #### 4 5218 #### LAB [address] [address] Les Malone M.D. [id number] AUTO NRBC ABS COUNT 0.00 K/mcL Normal 0.00-0.00 [facility] Comment on above: Performed By: #### 4 5218 #### LAB [address] [address] Les Malone M.D. [id number] Erythrocyte distribution width (RBC) [Ratio] 14.6 % Normal 11.6-14.8 [facility] Comment on above: Performed By: #### 4 5218 #### LAB [address] [address] Les Malone M.D. [id number] Hematocrit (Bld) [Volume fraction] 30.9 % Low 41.0-53.0 [facility] Comment on above: Performed By: #### 4 5218 #### LAB [address] [address] Les Malone M.D. [id number] Hemoglobin (Bld) [Mass/Vol] 10.3 g/dL Low 13.5-17.5 [facility] Comment on above: Performed By: #### 4 5218 #### LAB [address] [address] Les Malone M.D. [id number] MCH (RBC) [Entitic mass] 29.2 pg Normal 26.0-34.0 [facility] Comment on above: Performed By: #### 4 5218 #### LAB [address] [address] Les Malone M.D. [id number] MCV (RBC) [Entitic vol] 87.5 fL Normal 80.0-100.0 [facility] Comment on above: Performed By: #### 4 5218 #### LAB [address] [address] Les Malone M.D. [id number] MEAN CORPUSCULAR HEMOGLOBIN CONC 33.3 g/dL Normal 31.0-37.0 [facility] Comment on above: Performed By: #### 4 5218 #### LAB [address] [address] Les Malone M.D. [id number] Platelet mean volume (Bld) [Entitic vol] 10.9 fL Normal 9.4-12.4 [facility] Comment on above: Performed By: #### 4 5218 #### LAB [address] [address] Les Malone M.D. [id number] Platelets (Bld) [#/Vol] 242 10*3/uL Normal 150-400 [facility] Comment on above: Performed By: #### 4 5218 #### LAB [address] [address] Les Malone M.D. [id number] RBC (Bld) [#/Vol] 3.53 10*6/uL Low 4.50-5.90 [facility] Comment on above: Performed By: #### 4 5218 ####[facility] [address] [address] Les Malone M.D. [id number] WBC (Bld) [#/Vol] 24.34 10*3/uL High 4.50-11.00 [facility] Comment on above: Performed By: #### 4 5218 #### LAB [address] [address] Les Malone M.D. [id number] MAGNESIUM LEVELon 12-31-2023 Magnesium [Mass/Vol] 2.2 mg/dL Normal 1.6-2.4 [facility] Comment on above: Performed By: #### 4 6109 ####[facility] [address] [address] Les Malone M.D. [id number] Magnesium [Mass/Vol] 1.9 mg/dL Normal 1.6-2.4 [facility] Comment on above: Performed By: #### 4 6109 #### LAB [address] [address] Les Malone M.D. [id number] OSMOLALITYon 12-31-2023 Osmolality [Osmolality] 298 mosm/kg High 275-295 [facility] Comment on above: Performed By: #### 4 6230 #### LAB [address] [address] Les Malone M.D. [id number] POC ARTERIAL BLOOD GAS PANEL -[facility] 12-31-2023 [id number] 160.7 mm Hg Normal [facility] Comment on above: Performed By: #### 4 8716 ####[facility] [address] [address] Les Malone M.D. [id number] BASE EXCESS, ARTERIAL -2.2 Low -2.0-2.0 [facility] Comment on above: Performed By: #### 4 8716 ####[facility] [address] [address] Les Malone M.D. [id number] FIO2 60 Normal [facility] Comment on above: Performed By: #### 4 8716 #### LAB [address] [address] Les Malone M.D. [id number] HCO3 (Bld) [Moles/Vol] 22.8 mmol/L Normal 22.0-26.0 [facility] Comment on above: Performed By: #### 4 8716 #### LAB [address] [address] Les Malone M.D. [id number] Hematocrit (Bld) [Volume fraction] 29.9 % Low 41.0-53.0 [facility] Comment on above: Performed By: #### 4 8716 #### LAB [address] [address] Les Malone M.D. [id number] Hemoglobin (Bld) [Mass/Vol] 9.8 g/dL Low 13.5-17.5 [facility] Comment on above: Performed By: #### 4 8716 #### LAB [address] [address] Les Malone M.D. [id number] Oxygen saturation in Blood 99.8 % High 92.0-99.0 [facility] Comment on above: Performed By: #### 4 8716 #### LAB [address] [address] Les Malone M.D. [id number] PCO2 ARTERIAL 39.1 mm Hg Normal 35.0-45.0 [facility] Comment on above: Performed By: #### 4 8716 ####[facility] [address] [address] Les Malone M.D. [id number] PEEP RAD 8 [facility] Comment on above: Performed By: #### 4 8716 ####[facility] [address] [address] Les Malone M.D. [id number] PH ARTERIAL 7.37 Normal 7.35-7.45 [facility] Comment on above: Performed By: #### 4 8716 #### LAB [address] [address] Les Malone M.D. [id number] PO2 ARTERIAL 205 mm Hg High 80-100 [facility] Comment on above: Performed By: #### 4 8716 #### LAB [address] [address] Les Malone M.D. [id number] RESP RATE RAD 22 Normal [facility] Comment on above: Performed By: #### 4 8716 #### LAB [address] [address] Les Malone M.D. [id number] SPECIMEN SOURCE RADIANCE Not specified [facility] Comment on above: Performed By: #### 4 8716 #### LAB [address] [address] Les Malone M.D. [id number] TIDAL VOLUME RAD 450 Normal [facility] Comment on above: Performed By: #### 4 8716 #### LAB [address] [address] Les Malone M.D. [id number] 248.3 mm Hg [facility] Comment on above: Performed By: #### 4 8716 #### LAB [address] [address] Les Malone M.D. [id number] BASE EXCESS, ARTERIAL -2.0 Normal -2.0-2.0 [facility] Comment on above: Performed By: #### 4 8716 #### LAB [address] [address] Les Malone M.D. [id number] FIO2 60 [facility] Comment on above: Performed By: #### 4 8716 #### LAB [address] [id number] Les Malone M.D. [id number] HCO3 (Bld) [Moles/Vol] 23.5 mmol/L Normal 22.0-26.0 [facility] Comment on above: Performed By: #### 4 8716 #### LAB [address] [address] Les Malone M.D. [id number] Hematocrit (Bld) [Volume fraction] 31.5 % Low 41.0-53.0 [facility] Comment on above: Performed By: #### 4 8716 ####[facility] [address] [address] Les Malone M.D. [id number] Hemoglobin (Bld) [Mass/Vol] 10.3 g/dL Low 13.5-17.5 [facility] Comment on above: Performed By: #### 4 8716 ####[facility] [address] [address] Les Malone M.D. [id number] Oxygen saturation in Blood 98.4 % Normal 92.0-99.0 [facility] Comment on above: Performed By: #### 4 8716 ####[facility] [address] [address] Les Malone M.D. [id number] PCO2 ARTERIAL 42.6 mm Hg Normal 35.0-45.0 [facility] Comment on above: Performed By: #### 4 8716 ####[facility] [address] [address] Les Malone M.D. [id number] PEEP RAD 10 Normal [facility] Comment on above: Performed By: #### 4 8716 #### LAB [address] [address] Les aMlone M.D. [id number] PH ARTERIAL 7.35 Normal 7.35-7.45 [facility] Comment on above: Performed By: #### 4 8716 #### LAB [address] [address] Les Malone M.D. [id number] PO2 ARTERIAL 114 mm Hg High 80-100 [facility] Comment on above: Performed By: #### 4 8716 ####[facility] [address] [address] Les Malone M.D. [id number] RESP RATE RAD 22 [facility] Comment on above: Performed By: #### 4 8716 #### LAB [address] [address] Les Malone M.D. [id number] SPECIMEN SOURCE RADIANCE Not specified [facility] Comment on above: Performed By: #### 4 8716 #### LAB [address] [address] Les Malone M.D. [id number] TIDAL VOLUME RAD 450 [facility] Comment on above: Performed By: #### 4 8716 ####[facility] [address] [address] Les Malone M.D. [id number] POC GLUCOSE [facility] 024 Glucose [Mass/Vol] 143 mg/dL High [address] [place] [address] Comment on above: Performed By: #### 4 6932 ####[facility] [address] [address] Les Malone M.D. [id number] Glucose [Mass/Vol] 142 mg/dL High [address] [place] [address] Comment on above: Performed By: #### 4 6932 ####[facility] [address] [address] Les Malone M.D. [id number] Glucose [Mass/Vol] 157 mg/dL [address] Comment on above: Performed By: #### 4 6932 #### LAB [address] [address] Les Malone M.D. [id number] Glucose [Mass/Vol] 135 mg/dL High [address] [place] [address] Comment on above: Performed By: #### 4 6932 ####[facility] [address] [address] Les Malone M.D. [id number] XR CHEST PA/APon 12-31-2023 XR CHEST PA/AP [facility] Comment on above: Order Comment: Injur y/Trauma or Illness?:Illness/OtherHow long have you had these symptoms (acute/chronic)?:AcuteReason for exam?:vent managementHistory of cancer?:uSurgeries, chemotherapy, or radiation?:uType of Exam?:InitialAdditional signs and symptoms?:Trauma BASIC METABOLIC PANELon 12-04 Anion gap [Moles/Vol] 17 mmol/L Normal 10-20 [facility] Comment on above: Order Comment: [facility] has implemented the eGFR calculation approach that does not have a coefficient for race that conforms to the NKF-ASN Task Force Recommendations. Performed By: #### 4 6124 #### LAB [address] [address] Les Malone M.D. [id number] Calcium [Mass/Vol] 7.6 mg/dL Low 8.4-10.2 [facility] Comment on above: Order Comment: [facility] has implemented the eGFR calculation approach that does not have a coefficient for race that conforms to the NKF-ASN Task Force Recommendations. Performed By: #### 4 6124 #### LAB [address] [address] Les Malone M.D. [id number] Chloride [Moles/Vol] 108 mmol/L Normal 98-108 [facility] Comment on above: Order Comment: [facility] has implemented the eGFR calculation approach that does not have a coefficient for race that conforms to the NKF-ASN Task Force Recommendations. Performed By: #### 4 6124 #### LAB [address] [address] Les Malone M.D. [id number] Creatinine [Mass/Vol] 1.25 mg/dL Normal 0.50-1.30 [facility] Comment on above: Order Comment: [facility] has implemented the eGFR calculation approach that does not have a coefficient for race that conforms to the NKF-ASN Task Force Recommendations. Performed By: #### 4 6124 #### LAB [address] [address] Les Malone M.D. [id number] EGFR 72 mL/min/1.73 m2 Normal >=60 [facility] Comment on above: Order Comment: [facility] has implemented the eGFR calculation approach that does not have a coefficient for race that conforms to the NKF-ASN Task Force Recommendations. Result Comment: Fanta mated GFR was calculated using the 2020 CKD-EPI creatinine equation. Performed By: #### 4 6124 #### LAB [address] [address] Les Malone M.D. [id number] Glucose [Mass/Vol] 136 mg/dL High 65-99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 Ketones Ql (U) Negative Negative [facility] Laboratory - Chemistry and C hemistry - challengeOrdered By: Markel Bell on 05-02-2023 ALP [Catalytic activity/Vol] 111 U/L 45-117 [facility] ALT [Catalytic activity/Vol] 39 U/L 16-61 [facility] CO2 [Moles/Vol] 28.0 mmol/L 21.0-32.0 [facility] Globulin (S) [Mass/Vol] 3.9 g/dL 2.2-4.2 [facility] Magnesium [Mass/Vol] 2.3 mg/dL 1.6-2.6 [facility] Urea nitrogen/Creatinine [Mass ratio] 16.8 mg/mg 10-20 [facility] Laboratory - Hematology and Cell countsOrdered By: Markel Bell on 05-02-2023 Erythrocyte distribution width (RBC) [Entitic vol] 42.8 fL 35.1-43.9 [facility] Erythrocyte distribution width (RBC) [Ratio] 13.6 % 11.6-14.6 [facility] Immature granulocytes/100 WBC (Bld) 1.100 % 0.0-0.9 [facility] Comment on above: IG% - Immature Granu locytes (promyelocytes, myelocytes and metamyelocytes) > 1% indicates that a LEFT SHIFT is Present. MCH (RBC) [Entitic mass] 28.6 pg 27.0-32.0 [facility] Nucleated RBC/100 WBC (Bld) [Ratio] 0 % 0-5 [facility] ([facility]BC) [Mass/Vol]Or dered By: Markel Bell on 05-02-2023 MCHC (RBC) [Mass/Vol] 33.0 g/dL 32-36 [facility] Mucus LM Ql (Urine sed)Order ed By: Markel Bell on 05-02-2023 Mucus Ql (Urine sed) 0 SEEN /hpf [facility] Nitrite Test strip Ql (U)Ord ered By: Markel Bell on 05-02-2023 Nitrite Ql (U) Negative Negative [facility] No Panel InformationOrdered By: Markel Bell on 05-02-2023 Estimated GFR (MDRD) Amer 80 mL/min >60 [facility] Comment on above: GFR Calc Estimated GFR (MDRD) Non-Af Amer 66 mL/min >60 [facility] Comment on above: Non- GFR Calc Prostate Specific Antigen Screen 0.65 ng/mL 0.00-4.00 [facility] Comment on above: This test was perfor med using the TPSA assay method for theChargemaster chemistry system. Values obtained with differentassay methods cannot be used interchangably.When changing PSA assays in the course of monitoring apatient, additional sequential testing should be carriedout to confirm baseline values. Thyroid Stimulating Hormone (TSH) 3.20 uIU/mL 0.358-3.74 [facility] Platelets bldOrdered By: Jude Bell on 05-02-2023 Platelets (Bld) [#/Vol] 278 10*3/uL 150-450 [facility] Protein Test strip Ql (U)Ord ered By: Markel Bell on 05-02-2023 Protein Ql (U) 15 mg/dl Negative [facility] Serum or plasma albumin dov urement (mass/volume)Ordered By: Markel Bell on 05-02-2023 Albumin [Mass/Vol] 3.4 g/dL 3.2-5.0 [facility] Serum or plasma albumin/glob ulin mass ratioOrdered By: Markel Bell on 05-02-2023 Albumin/Globulin [Mass ratio] 0.9 {ratio} 0.9-2.4 [facility] Serum or plasma calcium dov urement (mass/volume)Ordered By: Markel Bell on 05-02-2023 Calcium [Mass/Vol] 8.6 mg/dL 8.5-10.1 [facility] Serum or plasma cholesterol in HDL measurement (mass/volume)Ordered By: Markel Bell on 05-02-2023 Cholesterol in HDL [Mass/Vol] 40 mg/dL >40 [facility] Comment on above: The drugs N-Acetylcy steine and Metamizole may falsely depress this assay. Reference Range HDL <40 mg/dL Low HDL Cholesterol HDL >or= 60 mg/dL High HDL Cholesterol Serum or plasma cholesterol in VLDL measurement (mass/volume)Ordered By: Markel Bell on 05-02-2023 Cholesterol in VLDL [Mass/Vol] 51 mg/dL 5-40 [facility] Serum or plasma creatinine m easurement (mass/volume)Ordered By: Markel Bell on 05-02-2023 Creatinine [Mass/Vol] 1.25 mg/dL 0.70-1.30 [facility] Comment on above: The validity of the calculated GFR & GFRAA in patients over 70 years has not been determined. Clinical correlation is essential. Serum or plasma low density lipoprotein (LDL) cholesterol measurement (mass/volume)Ordered By: Markel Bell on 05-02-2023 Cholesterol in LDL [Mass/Vol] 85 mg/dL 0-130 [facility] Serum or plasma urea nitroge n measurement (mass/volume)Ordered By: Markel Bell on 05-02-2023 Urea nitrogen [Mass/Vol] 21 mg/dL 7-18 [facility] Squamous epithelial cells de tection in urine sediment by light microscopyOrdered By: Markel Bell on 05-02-2023 Epithelial cells.squamous LM Ql (Urine sed) 0 SEEN /hpf 0-5 [facility] Thin prep Papanicolaou smear with manual screeningOrdered By: Markel Bell on 05-02-2023 Thin prep Papanicolaou smear with manual screening 18 U/L 15-37 [facility] Thin prep Papanicolaou smear with manual screening 6 5-15 [facility] Urine blood detectionOrdered By: Markel Bell on 05-02-2023 RBC Ql (U) 25 /ul Negative [facility] RBC Ql (U) 0-5 SEEN /hpf 0-5 [facility] Urine clarityOrdered By: Jude Bell on 05-02-2023 Clarity (U) Clear Clear [facility] Urine color determinationOrd ered By: Markel Bell on 05-02-2023 Color (U) Yellow Yellow [facility] Urine glucose detectionOrder ed By: Markel Bell on 05-02-2023 Glucose Ql (U) Normal mg/dl Normal [facility] Urine leukocyte esterase det ection by dipstickOrdered By: Markel Bell on 05-02-2023 Leukocyte esterase Test strip Ql (U) Negative Negative [facility] Urine pHOrdered By: Markel del valle on 05-02-2023 pH (U) 6.0 [pH] 5.0 - 8.0 [facility] Urine sediment bacteria coun t by microscopy (number/high power field)Ordered By: Markel Bell on 05-02-2023 Bacteria LM.HPF (Urine sed) [#/Area] 0 /[HPF] None Seen [facility] Urine specific gravity measu rementOrdered By: Markel Bell on 05-02-2023 Specific gravity (U) [Rel density] 1.025 1.002-1.030 [facility] Urobilinogen Auto test strip Ql (U)Ordered By: Markel Bell on 05-02-2023 Urobilinogen Ql (U) Normal mg/dl Normal [facility] ANES Justice 04-23-2017 ANES POST HNO ID: [id number]: Jennifer AbarcainService: AnesthesiologyAuthor Type: AnesthesiologistType: Anesthesia PostOpFiled: 04/23/2017 2:30 PMNote Text:POST ANESTHESIA EVALUATION NOTESERVICE DATE: 04/23/2017SERVICE TIME: 2:30 PMDOB: 1980Vitals: 4 04/23/1712Temp: 36 ?C (96.8 ?F) 36.7 ?C (98.1 ?F) 36.2 ?C (97.2 ?F) 04/23/1711BP: 157/95 153/97 156/98 149/94 04/23/1711Pulse: 61 61 66 76 04/23/1711Resp: 16 16 16 16 04/23/1711SpO2: 99% 98% 97% 97%Validated Vital Signs: YesPOST ANES STATUS: No apparent anesthetic complications. The patient isappropriately hydrated with stable respiratory and cardiovascular status.Patient has safe and adequate airway control. The patient has appropriatepain relief and no significant post operative nausea or vomiting. Thepatient has achieved baseline mental status.Further assessment by Anesthesia Service: NoneOther Remarks:SIGNATURE: Jennifer Pastor MD PATIENT NAME: Maida Pickett MeshewDATE: April 23, 2017 : 2:30 PM PAGER/CONTACT #: [phone] [facility] ANES PREOPon 04-23-2017 ANES PREOP HNO ID: [id number]: Jennifer Zarcoervice: AnesthesiologyAuthor Type: AnesthesiologistType: Anesthesia PreOpFiled: 04/23/2017 9:06 AMNote Text: ANESTHESIOLOGY DAY OF SURGERY NOTESERVICE DATE: 04/23/2017SERVICE TIME: 9:04 AMDOB: 1980Procedure(s) (LRB):LAPAROSCOPIC CHOLECYSTECTOMY (N/A)Surgeon(s):Alicia BensontmanEstimated body mass index is 34.72 kg/(m2) as calculated from thefollowing: Height as of this encounter: 182.9 cm (6'). Weight as of this encounter: 116.1 kg (256 lb).Most recent hematocrit and potassium results:Hematocrit 45.6 04/17/2017Potassium 3.4 04/17/2017ANES DOS/PREOP NOTE:Vitals: 4BP: 102/53Pulse: 82Resp: 18Temp: 36 ?C (96.8 ?F)TempSrc: Temporal ArterySpO2: 97%Weight: 116.1 kg (256 lb)Height: 182.9 cm (6')ACTIVE PROBLEM LISTObesity (Bmi 30.0-39.9)Elevated Blood Pressure ReadingImpaired Fasting Blood SugarAbdominal PainHypokalemiaMigraines PAST MEDICAL HISTORYDiagnosis Date- Hypertension- Hypokalemia 04/18/2017- Migraines 04/18/2017- Tattoo 1997- Thumb fracture 2003 left- Varicella without mention of complication ChickenpoxPAST SURGICAL HISTORYProcedure Laterality Date- EGD 03/2017- LASIK PROCEDURE 2008- PAST SURGICAL HISTORY OF removal of piece of metal from bridge of noseFAMILY HISTORYProblem Relation Age of Onset- Headache Mother migraine- Allergies Father- Heart Father congenital defect repair- Cancer Maternal Grandmother skin - unknow typeSocial History:Social HistorySubstance Use Topics- Smoking status: Never Smoker- Smokeless tobacco: Never Used- Alcohol use NoNo current facility-administered medications on file prior to encounter.Current Outpatient Prescriptions on File Prior to Encounter:potassium chloride ER (K-DUR, KLOR-CON) 20 mEq tablet Take 1 tablet bymouth twice daily.Current Facility-Administered Medications:lactated ringers infusion 30 mL/hr INTRAVENOUS CONTINUOUS Alicia TGuttman Last Rate: 30 mL/hr at 04/23/17 0850 30 mL/hr at 04/23/17 0850acetaminophen 1,000 mg tab(s) (TYLENOL) 1,000 mg ORAL ONCE Jennifer Khinpromethazine 12.5 mg tab(s) (PHENERGAN) 12.5 mg ORAL Pre-Op Once Jennifer KhinAllergies: ALLERGIESNo Known AllergiesDOS EXAM: Adequate NPO Status: YesAnesthetic Risks, Benefits, Alternatives, Personnel and Consent Discussed:YesPatient agrees to proceed: YesPrevious Anesthesia: No history of adverse eventAirway Assessment: MP 2; Neck ROM: Full ROM without neurologic symptoms;Airway Evaluation: Santillan PresentSymptoms of Sleep Apnea: Male genderDentition: Teeth intactAdditional Physical Exam:Lungs: Patient health status unchanged since recent history and physical.See history and physical for exam findings.Cardiac: Patient health status unchanged since recent history andphysical. See history and physical for exam findings.Additional Pertinent Findings: N/ABlood Products: Not anticipated for this procedureAnesthetic Plan: GeneralAnesthetic Monitoring: Standard ASA MonitorsPain Management Plan: Parenteral or OralASA Class: 2Other Medical Problems: NoneChronic Beta Camila medication administered within 24 hours: N/AI have interviewed and examined the patient. I have reviewed the medicalrecord and/or the pre-anesthesia evaluation, pertinent labs, and testresults.Significant changes in the patient's condition since the History andPhysical, not otherwise documented in primary service progress notes: NoThis contains updated information obtained within 48 hours ofSurgery/Procedure.SIGN ATURE: Jennifer Pastor MD PATIENT NAME: Maida HensleyewDATE: April 23, 2017 : 9:04 AM CSN: [id number] [facility] BRIEF OP NOTon 04-23-2017 BRIEF OP NOT HNO ID: [id number]: Alicia Espinoervice: General SurgeryAuthor Type: PhysicianType: Brief Op NoteFiled: 04/23/2017 11:05 AMNote Text:BRIEF OPERATIVE NOTATION FOR SURGICAL PROCEDURE.Maida Pickett Meshew 1980 [id number] maleLOG ID: [id number]/Procedure Date: 04/23/2017Incision/Proce dure Start Time: 10:17 AMIncision Close/Procedure End Time: 11:[address](s) and All Source Intelligence Technician(s):Surgeon(s) and Role: * Alicia Dubon - PrimaryRegistered Nurse Back Roll Lathe Operator: Zaria (Rn) CHIP BrooksREFERRING PHYSICIAN:OutpatientDEPT : REMIGIO PROVIDER: Patricia POS:[id number] ESIA: GeneralASA CLASS: 2 - mildDIAGNOSIS: pancreatitisPROCEDURE: LAPAROSCOPIC CHOLECYSTECTOMY WITH INTRAOPERATIVE CHOLEANGIOGRAM- 54190-267JYL: 1000EBL: 5Specimens: gallbladderADDITIONAL DIAGNOSES:FINDINGS: normal IOCCOMPLICATIONS: NonePMHx -PAST MEDICAL HISTORYDiagnosis Date- Hypertension- Hypokalemia 04/18/2017- Migraines 04/18/2017- Tattoo 1998- Thumb fracture 2004 left- Varicella without mention of complication ChickenpoxCOMORBIDITIES - Obesity and HTNPost Op Occurrences - NoneWound Classification - Clean ContaminatedOperative note dictated in the dictation system. [id number] Dubon MD [facility] HISTORY PHYSICALon 7 HISTORY PHYSICAL HNO ID: [id number]: Alicia Espinoervice: General SurgeryAuthor Type: PhysicianType: HANDPFiled: 04/23/2017 9:31 AMNote Text:HISTORY AND PHYSICAL?Maida Pickett Gzlbeg13 1980?DAVID Russo PHYSICIAN: Self?CHIEF COMPLAINT: Consult (Consult Gallbladder)?HPI: Maida is a 36 year old male with a complaint of a supraumbilical painradiates through to his back.?The patient was admitted in early February with complaints of severeabdominal pain. Workup was consistent with pancreatitis based on CT scan,but by the time of presentation. His pancreatic enzymes were withinnormal limits.?He does not drink, he had no other inciting medications that were knownand his triglyceride level was only mildly elevated. He does not seem tohave gallstones but may have a degree of sludge.?He recently underwent upper endoscopy with endoscopic ultrasound guidedbiopsy of the head of the pancreas-March 17, 2017 performed by . There are plans for a follow-up MRI to assess resolution of thepancreatic head. An formation on April 15.?The patient is referred for evaluation and treatment.?Follow-up MRI demonstrated resolving pancreatitis without significantinflammation. Surgical pathology from the endoscopic ultrasound-guidedbiopsy was also unremarkable.???SIGNIFIC ANT MEDICAL PROBLEMS: PAST?MEDICAL?HISTORYPAST MEDICAL HISTORYDiagnosis Date- Hypertension ?- Tattoo 1997- Thumb fracture 2003? left- Varicella without mention of complication ?? Chickenpox??OPERATIONS: PAST?SURGICAL?HISTORYPAS T SURGICAL HISTORYProcedure Laterality Date- LASIK PROCEDURE ? 2008???CURRENT MEDICATIONS: CURRENT?MEDICATIONS Current Outpatient Prescriptions:secretin, Human, (CHIROSTIM) 16 mcg solr Inject 11.61 mL intravenously asdirected. Slow push at the appropriate time during MRI. Disp: 11.61 mLRfl: 0potassium chloride ER (K-DUR, KLOR-CON) 20 mEq tablet Take 1 tablet bymouth twice daily. Disp: 40 tablet Rfl: 0secretin, Human, (CHIROSTIM) 16 mcg solr For MRI PANCREAS FUNCTION WO/WIVCON. Inject 0.2 mcg/kg/dose intravenously as directed. Slow push at theappropriate time during MRI Disp: 10 mL Rfl: 0codeine-guaiFENesin syrup Take 5 mL by mouth four times daily as neededfor Cough. May cause drowsiness. Disp: 120 mL Rfl: 0?No current facility-administered medications for this visit.?ALLERGIES: Review of patient's allergies indicates no known allergies.?PERSONAL HISTORY: SOCIAL?HISTORY Social History Marital status: Spouse name: Years of education: Number of children:?Social History Main Topics Smoking status: Never Smoker? Smokeless status: Never Used Alcohol use: No Drug use: No Sexual activity: Yes Partners with: Female??FAMILY HISTORY: FAMILY?HISTORYFAMILY HISTORYProblem Relation Age of Onset- Headache Mother ?? ? migraine- Allergies Father ?- Heart Father ?? ? congenital defect repair- Cancer Maternal Grandmother ?? ? skin - unknow type??REVIEW OF SYMPTOMS: The review of systems data was entered by the nurse and reviewed by me?There are no exam notes on file for this visit.???PHYSICAL EXAMINATION:?General: The patient is 36 year old male, well nourished, well hydratedin no acute distress. The patient is oriented to time, place, and person.?VITALS: There were no vitals taken for this visit. There is no height orweight on file to calculate BMI.?HEENT: Normal cephalic, ataumatic, pupils are equally round, sclera areanicteric, mucous membranes are moist, oropharynx is clear. Neck has nomasses, asymmetry or lymphadenopathy. Thyroid is unremarkable.?Respirator y: Clear to auscultation and percussion. Normal respiratoryexcursion and pattern.?Cardiac: Examination is regular rate and rhythm.?Abdominal exam: Normoactive bowel sounds, Soft, non tender in the rightupper quadrantnegative Tamez's sign, with no palpable masses. No hepatosplenomegaly.No palpable hernias.?Rectal exam: exam deferred?Extremities: no clubbing, cyanosis or edema. No adenopathy.?Other:?LABOR ATORY VALUES: As Noted?RADIOLOGIC STUDIES: As Noted Above?AssessmentIMPRESSI ON: Pancreatitis, no other inciting events other than likelybiliary origin?PLAN: My plan is to perform a laparoscopic cholecystectomy withintraoperative choleangiogram. The planned surgical procedure wasdiscussed extensively with the patient. The risks, benefits, anticipatedoutcomes and possible complications were mentioned. My staff has alsoexplained the procedure in understandable terms and the patient was giventhe option to take printed material concerning the planned procedure. Thepatient had the opportunity to ask questions concerning the plannedprocedure. The patient freely consents to the planned procedure.?Planned Procedure: LAPAROSCOPIC CHOLECYSTECTOMY WITH INTRAOPERATIVECHOLEANGIO GRAM - 16608-390?Planned antibiotic: Ancef 2gm IVPB fabrication welder to OR?SCDs needed - Yes?All Source Intelligence Technician Needed - Yes?Diagnoses: (R10.10) Pain of upper abdomen (primary encounter diagnosis)(K85.90) Acute pancreatitis, unspecified complication status, unspecifiedpancreatitis type??He will return on April 17 to review the MRI with plans for surgicalintervention on April 23??? Alicia Dubon MD [facility] NURSING PROGon 04-23-2017 NURSING PROG HNO ID: [id number]: Celeste McnairRn) AUGIE Bauerervice: NursingAuthor Type: Registered NurseType: Nursing Progress NoteFiled: 04/23/2017 1:36 PMNote Text:[id number] Received from pacu C/o abd pain level 2 Light diet to [id number] Discharge instructions reviewed with pt and Iv removed Upto chair Steady when up [id number] Discharged by wheelchair Normal [facility] OPERATIVE NOon 04-23-2017 OPERATIVE NO HNO ID: [id number]: Alicia Espinoervice: General SurgeryAuthor Type: PhysicianType: Operative ReportFiled: 04/24/2017 6:57 PMNote Text:[facility]- Operative ReportMAIDA POLANCO CDOB: 1980 AGE: 37 SEX: MMRN: [id number] ACCTNUM: [id number] SVC: GEN LOCATION: [address] PHYSICIAN: Alicia Dubon M.D.DATE OF PROCEDURE: 04/23/2017SURGEON: Alicia Dubon M.D.HOT BILLET SHEAR OPERATOR: Juan DooleyANESTHESIA: General endotracheal.PREOPERATIV E DIAGNOSIS(ES): Biliary pancreatitis without other knownobvious etiology.POSTOPERATIVE DIAGNOSIS(ES): Adhesions of the gallbladder consistent withchronic cholecystitis, normal cholangiogram.NAME OF OPERATION: Laparoscopic colostomy on cholangiogram.INDICATION S:ESTIMATED BLOOD LOSS: 5 cc.COMPLICATIONS: None.SPECIMENS: Gallbladder.DRAINS: None.URINE OUTPUT: No catheter.LOG ID: #[id number].START TIME: 10:17.END TIME: 11:01.ASA: 2.INTRAVENOUS FLUIDS: 1000 cc.DISPOSITION: The patient taken to PACU in stable condition.FINDINGS: As described above.PROCEDURE: The patient was brought to the operative suite. Sign-in wasperformed verifying patient, site, procedure, position, critical nursing,VTE number prophylaxis. The patient received 2 grams of Ancef andsequential pressure device was placed. Following induction of generalanesthetic, the patient's abdomen was prepped and draped in usualfashion. Time-out was performed verifying patient, site, procedure,position. Local anesthetic was injected above the umbilicus. Incisionmade. Dissection carried down to the fascia, 2 stay sutures were placedon the fascia. Incision was made to fascia of the peritoneum under direct visualization. Lelia trocar was inserted through a stay suture andpneumoperitoneum to 15 mm was insufflated. Three 5-mm ports were placedin a standard position. Visual inspection revealed significantintraabdomina l adiposity, which limited viewing of the remainder of theabdominal cavity. The liver showed fatty liver changes without signs ofcirrhosis. Gallbladder was retracted upward and outward. There wereadhesions of the omentum and duodenum to the gallbladder. These weretaken down bluntly. Following this, dissection was carried out in [place]. As dissection was continued, critical view of the neck of thegallbladder from the cystic duct with no signs of aberrant ductalstructures were seen. A clip was placed in the neck of the gallbladderand cystic duct and a partial ductotomy made. Percutaneous cholangiocathwas inserted through the clip. Intraoperative cholangiogram showedfilling of the cystic duct, filling of the common bile duct, filling ofthe secondary to radicals and emptying into the duodenum withoutobstruction. Clip and catheter were removed from the cystic duct.Cystic duct was divided. Dissection was continued. The cystic arterywas identified, doubly clipped proximally, singly clipped distally, anddivided. A small amount of fat anterior to the cystic artery wasinitially clipped but this was noted after division not to be the artery. The gallbladder was then dissected from the gallbladder fossa usingelectrocautery, placed in the Endobag and removed from the umbilical portsite. 0 Maxon szslci-bj-ivmpc suture was placed on the supraumbilicalport site defect. The gallbladder fossa checked for hemostasis with goodhemostasis. The area was again irrigated and aspirated clear. The 5ports under direct visualization without signs of bleeding.Pneumoperitoneu m was released. The umbilical fascia was secured. Skinwas closed with inverted 4-0 Biosyn subcuticular suture. Steri-Stripsand dressings were applied. The patient tolerated the procedure well,brought to the recovery room in stable condition.Alicia Dubon M.D.General SurgeryRG:[id number]: 04/23/2017 11:05:32T: 04/23/2017 20:38:18Job #: [id number] [facility] PLAN OF CAREon 04-23-2017 PLAN OF CARE HNO ID: [id number]: Annetta Bonilla (Detectent)Service: (none)Author Type: TechnicianType: Plan of CareFiled: 04/23/2017 12:49 PMNote Text:SHIPPING RECEIVING MANAGER BEDSIDE DELIVERY SURVEY1. Patient to use [facility] Bedside Delivery - YES2. If fax, patient would like us to fax prescriptions to Pharmacy ofchoice a. Pharmacy: b. Location: c. Phone:3. Insurance card on file - YES4. Credit card for payment - YESPHARMACY BEDSIDE DELIVERY SERVICEPatient Name: Maida Pickett MeshewMRN: [id number] marked outpatient medications were Filled at: [facility] and delivered tothe patient's bedside to pharm p/uMedication ListSTART taking these medicationsX oxyCODONE-acetaminophen 5-325 mg tabletCommonly known as: PERCOCETTake 1 tablet by mouth every 6 hours as needed for Pain for up to 20doses.CONTINUE taking these medications potassium chloride ER 20 mEq tabletCommonly known as: K-DUR, KLOR-CONTake 1 tablet by mouth twice daily.Annetta Bonilla (Mergers And Acquisitions Attorney)PAGER: [phone] 2016 12:35 PM [facility] SURGICAL PATHOLOGYon 017 SURGICAL PATHOLOGY [facility]: [id number] Physician: ALICIA DUBON MD ____FINAL DIAGNOSISGallbladder, cholecystectomy - Chronic cholecystitis.DTP/lbk 04/25/2017Barby Mcmahon M.D.(Electronic Signature) SPECIMEN SUBMITTEDA: GALLBLADDER CLINICAL DATAABDOMINAL PAINLAPAROSCOPIC CHOLECYSTECTOMY WITH GRAMS GROSS DESCRIPTIONA. Received in formalin, labeled as gallbladder consists of an intactgallbladder measuring 6.5 x 3.5 x 2.2 cm. The serosal surface is yellow,smooth and glistening. The hepatic bed is roughened and irregular. Thecystic duct is not impacted. No lymph nodes are identified. The lumencontains green bile admixed in which is green friable debris. No discretegallstones are identified. The mucosa is nelson velvety with a wall thicknessmeasuring up to 0.1 cm. Waiter/Waitress Formal sections are submitted in cassetteA1.TN/dbb 04/23/2017Gross examination performed at [facility], [facility] [place] [id number] ID #: [id number] of Report: 04/25/2017Date of Procedure: 04/23/2017Date of Receipt: 04/23/2017Submitted by: ALICIA DUBON MDLocation: MEORDiagnostic interpretation performed at [facility] [address]. [facility] Comment on above: Performed By: #### P ATHS ####[facility] [id number] [place], [place] [phone] XR CHOLANGIOGRAM INTRAOPon 1 06-24-2016 Cholesterol * * *Final Report* * *DATE OF EXAM: Apr 23 2017 10:38AM MDR [id number] - XR CHOLANGIOGRAM INTRAOP / REASON: ABDOMINAL PAIN * * * * Physician Interpretation * * * * Study: Cholangiogram in OR:HISTORY:Indication: ABDOMINAL PAINTECHNIQUE:Fluoroscop ic Radiation Summary:Plane A, Air Kerma: 2.3 mGyDose Area Product (DAP): 778.8 mGy*ejY4Wvvpwj time: 0:07 min:secImages: Cinefluoroscopy was performed. Digital loop of images retained for review.Comparison: None.RESULT:Findings:The re is injection of contrast through the cystic duct . Good filling of the common duct with passage of contrast in the small bowel noted. Visualized portions of the intrahepatic bile ducts unremarkable. There is contrast seen within the small bowel. No evidence of extravasation is seen.IMPRESSION:No acute pathology.Transcriptioni st: [facility] Transcribe Date/Time: Apr 23 2017 3:42PDictated by : Marciano MARTINEZ examination was interpreted and the report reviewed and electronically signed by: BRE BERRY DO on Apr 23 2017 3:42PM [id number] N [facility] NURSING PROGon 04-22-2017 NURSING PROG HNO ID: [id number]: AUGIE You Rnervice: (none)Author Type: Registered NurseType: Nursing Progress NoteFiled: 04/22/2017 11:26 AMNote Text:PACC Nurse Progress NoteHistory AND Physical:PACC Visit Date: 04/18/17Labs Within Last 6 Months:CBC: Date 04/17/17BMP/CMP: Date 04/17/17 (Serum K- 3.4)Imaging Within Last 12 Months:MRIDate of test: 04/15/17Cardiac Testing:EKG in last 12 Months: Yes: Date: 02/04/17, Comment: (external scanned EKG-NSR)Risk Assessment:N/AAnesthesia Review:N/ANarrative:Per HPI: History of HypokalemiaPre-op Considerations:DOS- repeat serum K-future order in [facility].Chart Check:Ashley Giron 2016 10:12 AM [facility] HOSP 03-21-2017 HOSP Patient:Maida Polanco CMRN: Height:6' 0(1.829 m)Weight:261 lb (118.389 kg)Outpatient Medications as of 04/23/17:potassium chloride ER (K-DUR, KLOR-CON) 20 mEq tabletAdmission/Clinic Administered Medications as of 04/23/17:lactated ringers infusionlactated ringers infusionProblem List:Obesity (BMI 30.0-39.9) []Elevated blood pressure reading [R03.0]Impaired fasting blood sugar [R73.01]Abdominal pain [R10.9]Hypokalemia [E87.6]Migraines [G43.909]Allergies:No Known AllergiesDate Verified:04/23/17Lab ValuesLab Value Units Date High LowPOTA* 3.4 mmol/L 04/17/2017 5.1 3.7HEMA* 45.6 % 04/17/2017 51.0 39.0Progress Notes ([facility]):Alicia Dubon MD 04/17/2017 12:25 PM SignedHISTORY AND PHYSICALBryon Nieves Polanco1978REFERRING PHYSICIAN: SelfCHIEF COMPLAINT: Consult (Consult Gallbladder)HPI: Maida is a 36 year old male with a complaint of a supraumbilical painradiates through to his back.The patient was admitted in early February with complaints of severe abdominalpain. Workup was consistent with pancreatitis based on CT scan, but by the timeof presentation. His pancreatic enzymes were within normal limits.He does not drink, he had no other inciting medications that were known and histriglyceride level was only mildly elevated. He does not seem to havegallstones but may have a degree of sludge.He recently underwent upper endoscopy with endoscopic ultrasound guided biopsyof the head of the pancreas-March 17, [address] De Leon. Thereare plans for a follow-up MRI to assess resolution of the pancreatic head. Anformation on April 15.The patient is referred for evaluation and treatment.Follow-up MRI demonstrated resolving pancreatitis without significantinflammation. Surgical pathology from the endoscopic ultrasound-guided biopsywas also unremarkable.SIGNIFICANT MEDICAL PROBLEMS:PAST MEDICAL HISTORYDiagnosis Date- Hypertension- Tattoo 1997- Thumb fracture 2004 left- Varicella without mention of complication ChickenpoxOPERATIONS:PAS T SURGICAL HISTORYProcedure Laterality Date- LASIK PROCEDURE 2009CURRENT MEDICATIONS:Current Outpatient Prescriptions:secretin, Human, (CHIROSTIM) 16 mcg solr Inject 11.61 mL intravenously asdirected. Slow push at the appropriate time during MRI. Disp: 11.61 mL Rfl: 0potassium chloride ER (K-DUR, KLOR-CON) 20 mEq tablet Take 1 tablet by mouthtwice daily. Disp: 40 tablet Rfl: 0secretin, Human, (CHIROSTIM) 16 mcg solr For MRI PANCREAS FUNCTION WO/W IVCON.Inject 0.2 mcg/kg/dose intravenously as directed. Slow push at the appropriatetime during MRI Disp: 10 mL Rfl: 0codeine-guaiFENesin syrup Take 5 mL by mouth four times daily as needed forCough. May cause drowsiness. Disp: 120 mL Rfl: 0No current facility-administered medications for this visit.ALLERGIES: Review of patient's allergies indicates no known allergies.PERSONAL HISTORY: Social History Marital status: Spouse name: Years of education: Number of children:Social History Main Topics Smoking status: Never Smoker Smokeless status: Never Used Alcohol use: No Drug use: No Sexual activity: Yes Partners with: FemaleFAMILY HISTORY:FAMILY HISTORYProblem Relation Age of Onset- Headache Mother migraine- Allergies Father- Heart Father congenital defect repair- Cancer Maternal Grandmother skin - unknow typeREVIEW OF SYMPTOMS: The review of systems data was entered by the nurse and reviewed by meThere are no exam notes on file for this visit.PHYSICAL EXAMINATION:General: The patient is 36 year old male, well nourished, well hydrated in noacute distress. The patient is oriented to time, place, and person.VITALS: There were no vitals taken for this visit. There is no height orweight on file to calculate BMI.HEENT: Normal cephalic, ataumatic, pupils are equally round, sclera areanicteric, mucous membranes are moist, oropharynx is clear. Neck has no masses,asymmetry or lymphadenopathy. Thyroid is unremarkable.Respiratory : Clear to auscultation and percussion. Normal respiratoryexcursion and pattern.Cardiac: Examination is regular rate and rhythm.Abdominal exam: Normoactive bowel sounds, Soft, non tender in the right upperquadrantnegative Tamez's sign, with no palpable masses. No hepatosplenomegaly. Nopalpable hernias.Rectal exam: exam deferredExtremities: no clubbing, cyanosis or edema. No adenopathy.Other:LABORAT ORY VALUES: As NotedRADIOLOGIC STUDIES: As Noted AboveAssessmentIMPRESSIO N: Pancreatitis, no other inciting events other than likely biliaryoriginPLAN: My plan is to perform a laparoscopic cholecystectomy with intraoperativecholeangio gram. The planned surgical procedure was discussed extensively withthe patient. The risks, benefits, anticipated outcomes and possiblecomplications were mentioned. My staff has also explained the procedure inunderstandable terms and the patient was given the option to take printedmaterial concerning the planned procedure. The patient had the opportunity toask questions concerning the planned procedure. The patient freely consents tothe planned procedure.Planned Procedure: LAPAROSCOPIC CHOLECYSTECTOMY WITH INTRAOPERATIVECHOLEANGIO GRAM - [id number] antibiotic: Ancef 2gm IVPB fabrication welder to ORSCDs needed - YesAssistant Needed - YesDiagnoses: (R10.10) Pain of upper abdomen (primary encounter diagnosis)(K85.90) Acute pancreatitis, unspecified complication status, unspecifiedpancreatitis typeHe will return on April 17 to review the MRI with plans for surgicalintervention on April 23 Alicia Dubon, MDProgress Notes ([facility] Q[facility]):Aida Salgado LPN, RADHA 04/16/2017 4:26 PM SignedSpoke with Maida this afternoon. Relayed that Dr. De Leon reviewed his imagingstudies, which showed no pancreatic divsum. Her recommendations are to go asplanned with the cholecystectomy. Maida had no further questions, he is seeingDr. Dubon this week and will proceed.Aida Salgado LPN Normal [facility] Vital Signs Date Time Vital Sign Value Performing Clinician Facility 03-09-2025 15:17-0500 Diastolic blood pressure 76 mm[Hg] Neelima Villarreal MD Work Phone: [facility] 03-09-2025 15:17-0500 Heart rate 75 /min Neelima Villarreal MD Work Phone: [facility] 03-09-2025 15:17-0500 Systolic blood pressure 123 mm[Hg] Neelima Villarreal MD Work Phone: [facility] 02-22-2025 09:59-0400 Diastolic blood pressure 54 mm[Hg] Cristine Carpio MD Work Phone: [facility] 02-22-2025 09:59-0400 Heart rate 61 /min Cristine Carpio MD Work Phone: [facility] 02-22-2025 09:59-0400 SaO2% (BldA) [Mass fraction] 94 % Cristine Carpio MD Work Phone: [facility] 02-22-2025 09:59-0400 Systolic blood pressure 91 mm[Hg] Cristine Carpio MD Work Phone: [facility] 02-02-2025 11:34-0400 Body temperature 96.1 [degF] Dr. Markel Bell MD Work Phone: [facility] 02-02-2025 11:34-0400 Diastolic blood pressure 78 mm[Hg] Dr. Markel Bell MD Work Phone: [facility] 02-02-2025 11:34-0400 Heart rate 58 /min Dr. Markel Bell MD Work Phone: [facility] 02-02-2025 11:34-0400 Respiratory rate 16 /min Dr. Markel Bell MD Work Phone: [facility] 02-02-2025 11:34-0400 Systolic blood pressure 140 mm[Hg] Dr. Markel Bell MD Work Phone: [facility] 01-26-2025 10:04-0400 Body temperature 96.4 [degF] Dr. Markel Bell MD Work Phone: [facility] 01-26-2025 10:04-0400 Diastolic blood pressure 105 mm[Hg] Dr. Markel Bell MD Work Phone: [facility] 01-26-2025 10:04-0400 Heart rate 59 /min Dr. Markel Bell MD Work Phone: [facility] 01-26-2025 10:04-0400 Respiratory rate 16 /min Dr. Markel Bell MD Work Phone: [facility] 01-26-2025 10:04-0400 Systolic blood pressure 147 mm[Hg] Dr. Markel Bell MD Work Phone: [facility] 12-29-2024 09:18-0400 Body temperature 97.3 [degF] Dr. Markel Bell MD Work Phone: [facility] 12-29-2024 09:18-0400 Diastolic blood pressure 72 mm[Hg] Dr. Markel Bell MD Work Phone: 0(585)[phone] [place] [address] 12-29-2024 09:18-0400 Heart rate 59 /min Dr. Markel Bell MD Work Phone: [facility] 12-29-2024 09:18-0400 Respiratory rate 16 /min Dr. Markel Bell MD Work Phone: [facility] 12-29-2024 09:18-0400 Systolic blood pressure 122 mm[Hg] Dr. Markel eBll MD Work Phone: [facility] 12-01-2024 13:39-0400 Body temperature 97.3 [degF] Dr. Markel Bell MD Work Phone: [facility] 12-01-2024 13:39-0400 Diastolic blood pressure 67 mm[Hg] Dr. Markel Bell MD Work Phone: [facility] 12-01-2024 13:39-0400 Heart rate 49 /min Dr. Markel Bell MD Work Phone: [facility] 12-01-2024 13:39-0400 Respiratory rate 16 /min Dr. Markel Bell MD Work Phone: [facility] 12-01-2024 13:39-0400 Systolic blood pressure 124 mm[Hg] Dr. Markel Bell MD Work Phone: [facility] 11-24-2024 09:35-0400 Body temperature 97 [degF] Dr. Markel Bell MD Work Phone: [facility] 11-24-2024 09:35-0400 Diastolic blood pressure 57 mm[Hg] Dr. Markel Bell MD Work Phone: [facility] 11-24-2024 09:35-0400 Heart rate 61 /min Dr. Markel Bell MD Work Phone: [facility] 11-24-2024 09:35-0400 Respiratory rate 16 /min Dr. Markel Bell MD Work Phone: [facility] 11-24-2024 09:35-0400 Systolic blood pressure 107 mm[Hg] Dr. Markel Bell MD Work Phone: [facility] 11-19-2024 13:31-0400 Body mass index (BMI) [Ratio] 32.28 kg/m2 Neelima Villarreal MD Work Phone: [facility] 11-19-2024 13:31-0400 Body weight 107.96 kg Neelima Villarreal MD Work Phone: [facility] 11-19-2024 13:31-0400 Diastolic blood pressure 74 mm[Hg] Neelima Villarreal MD Work Phone: [facility] 11-19-2024 13:31-0400 Heart rate 58 /min Neelima Villarreal MD Work Phone: [facility] 11-19-2024 13:31-0400 Systolic blood pressure 121 mm[Hg] Neelima Villarreal MD Work Phone: [facility] 10-26-2024 08:37-0400 Body mass index (BMI) [Ratio] 35.2 kg/m2 Dr. Markel Bell MD Work Phone: [facility] 10-26-2024 08:37-0400 Body temperature 97.7 [degF] Dr. Markel Bell MD Work Phone: [facility] 10-26-2024 08:37-0400 Diastolic blood pressure 78 mm[Hg] Dr. Markel Bell MD Work Phone: [facility] 10-26-2024 08:37-0400 Heart rate 63 /min Dr. Markel Bell MD Work Phone: 4(642)884-5024[address] [place] [address] 10-26-2024 08:37-0400 Respiratory rate 16 /min Dr. Markel Bell MD Work Phone: 2(518)488-6313[address] [place] [address] 10-26-2024 08:37-0400 Systolic blood pressure 131 mm[Hg] Dr. Markel Bell MD Work Phone: 3(985)796-8619[address] [place] [address] 10-05-2024 08:16-0400 Body mass index (BMI) [Ratio] 35.2 kg/m2 Dr. Markel Bell MD Work Phone: 5(205)989-678121 [place] [address] 10-05-2024 08:16-0400 Body temperature 97.6 [degF] Dr. Markel Bell MD Work Phone: 9(401)580-586021 [place] [address] 10-05-2024 08:16-0400 Respiratory rate 16 /min Dr. Markel Bell MD Work Phone: 5(424)741-845021 [place] [address] 10-03-2024 00:23-0400 Body weight 117.[address] Markel Bell MD Work Phone: [facility] 10-03-2024 00:23-0400 Diastolic blood pressure 67 mm[Hg] Dr. Markel Bell MD Work Phone: 5(669)613-04[address] [place] [address] 10-03-2024 00:23-0400 Heart rate 53 /min Dr. Markel Bell MD Work Phone: [facility] 10-03-2024 00:23-0400 Systolic blood pressure 137 mm[Hg] Dr. Markel Bell MD Work Phone: 6(766)919-964321 [place] [address] 09-21-2024 11:13-0400 Body mass index (BMI) [Ratio] 35.2 kg/m2 Dr. Markel Bell MD Work Phone: [facility] 09-21-2024 11:13-0400 Body temperature 97 [degF] Dr. Markel Bell MD Work Phone: [facility] 09-21-2024 11:13-0400 Diastolic blood pressure 67 mm[Hg] Dr. Markel Bell MD Work Phone: [facility] 09-21-2024 11:13-0400 Heart rate 53 /min Dr. Markel Bell MD Work Phone: [facility] 09-21-2024 11:13-0400 Respiratory rate 16 /min Dr. Markel Bell MD Work Phone: [facility] 09-21-2024 11:13-0400 Systolic blood pressure 137 mm[Hg] Dr. Markel Bell MD Work Phone: [facility] 09-14-2024 10:35-0400 Body height 182.[address] Markel Bell MD Work Phone: [facility] 09-14-2024 10:35-0400 Body weight 117.[address] Markel Bell MD Work Phone: [facility] 08-12-2024 10:00-0400 Body height 182.9 cm [facility] 08-12-2024 10:00-0400 Body mass index (BMI) [Ratio] 32.28 kg/m2 Kaleigh Frank PT [facility] 08-12-2024 10:00-0400 Body weight 107.96 kg Kaleigh Frank PT [facility] 06-30-2024 22:34-0500 Heart rate 57 /min Darnell Xiong MD Work Phone[facility] 06-30-2024 10:31-0500 Body height 182.9 cm Darnell Xiong MD [facility] Phone[facility] 06-30-2024 10:31-0500 Diastolic blood pressure 80 mm[Hg] Darnell Xiong MD Work Phone: [facility] 06-30-2024 10:31-0500 Heart rate 57 /min Darnell Xiong MD [facility] 06-30-2024 10:31-0500 SaO2% (BldA) [Mass fraction] 97 % Darnell Xiong MD Work Phone: [facility] Comment on above: room air 06-30-2024 10:31-0500 Systolic blood pressure 118 mm[Hg] Darnell Xiong MD Work Phone: [facility] 06-14-2024 10:32-0500 Body weight 107.5 kg Sci Michelle [facility] 06-14-2024 10:32-0500 Respiratory rate 16 /min [facility] 03-31-2024 11:26-0500 Diastolic blood pressure 77 mm[Hg] Kwan Oviedo PA-C Work Phone: [facility] 03-31-2024 11:26-0500 Heart rate 57 /min Kwan Oviedo PA-C Work Phone: [facility] 03-31-2024 11:26-0500 SaO2% (BldA) [Mass fraction] 95 % Kwan Oviedo PA-C Work Phone: [facility] 03-31-2024 11:26-0500 Systolic blood pressure 120 mm[Hg] Kwan Oviedo PA-C Work Phone: [facility] Encounters Encounter Date Encounter Type Care Provider Facility Start: 03-15-2025 ambulatory Markel Bell Facilit y:[facility] Start: 03-14-2025 ambulatory MAXINE GU Facility: [facility] Start: 03-10-2025 End: 03-10-2025 ambulatory Markel Bell Facility:[facility] Start: 03-09-2025 End: 03-09-2025 ambulatory UNKNOWN PROVIDER [facility] Start: 03-09-2025 End: 03-09-2025 Patient encounter procedure Neelima Villarreal MD Work Phone: [facility] Comment on above: Spastic tetraplegia (HCC) (Primary Dx); Muscle spasticity Start: 03-09-2025 End: 03-09-2025 Telephone encounter Cristine Carpio MD Work Phone: [facility] Comment on above: Transfer RX request Start: 03-08-2025 End: 03-08-2025 ambulatory Emilyjoy Maynard [facility] Start: 03-08-2025 End: 03-08-2025 Patient encounter procedure Emilyjoy Maynard [facility] Comment on above: Clinically Administe red Medication (03/09/25 /[place] PM&R / [place] - PM&R/abobotulinumtoxinA (Dysport) 500 units SOLR injection ) Start: 02-23-2025 End: 03-04-2025 ambulatory [facility] Facility:[facility] Start: 02-22-2025 End: 02-23-2025 Office outpatient visit 40 minutes Cristine Carpio MD Work Phone: [facility] Comment on above: Spastic tetraplegia (HCC) (Primary Dx); Muscle spasticity; Urinary retention; Neurogenic bladder; Neurogenic bowel; Recurrent UTI; Autonomic dysreflexia; Neurogenic orthostatic hypotension (HCC) Start: 02-22-2025 End: 02-23-2025 ambulatory CRISTINE CARPIO Facility:[facility] Start: 02-10-2025 End: 02-10-2025 ambulatory Kwan Verma OTD, OTR/L, CHT [facility] Comment on above: OT Evaluation (1) Start: 02-08-2025 End: 02-08-2025 ambulatory Guevara Arias PharmD [facility] Start: 02-08-2025 End: 02-08-2025 Patient encounter procedure Guevara Arias PharmD [facility] Comment on above: Specialty Pharmacy R eferral (Dysport- New INS) Start: 02-02-[address] Les mcclellan D[facility] Work Phone: Start: 01-31-2025 End: 01-31-2025 ambulatory Maxine Gu PT Work Phone: [facility] Comment on above: PT Visit # (2) Start: 01-26-2025 End: 02-01-[address] Markel Bell MD Work Phone: [facility] Start: 01-26-2025 End: 02-01-[address] Les Shaikh DPM -[facility] Work Phone: Start: 01-13-2025 End: 01-20-2025 ambulatory UNKNOWN PROVIDER Facility:[facility] Start: 01-10-2025 End: 01-20-2025 Professional / ancillary services management Remote Device Checks Work Phone: [facility] Start: 12-29-2024 End: 01-02-2025 ambulatory Maxine Gu PT Work Phone: [facility] Physical Therapy Comment on above: PT Eval (1) Start: 12-29-2024 End: 01-02-[address] Les Shaikh DPM -Wound Healing Ce nter Work Phone: Start: 12-23-2024 End: 12-24-2024 ambulatory UNKNOWN PROVIDER Facility:[facility] Start: 12-23-2024 End: 12-24-2024 Office outpatient visit 25 minutes Ignacio Bonilla MD Work Phone: [facility] Orthopedics Spine Comment on above: Tetraplegia (HCC) (P rimary Dx) Start: 12-02-2024 End: 12-02-2024 ambulatory Kaleigh Frank PT [facility] Physical Therapy Comment on above: Treatment (At-home O OD AT assessment--[facility] office) Start: 12-01-2024 End: 12-02-[address] Markel Bell MD Work Phone: -[facility] Start: 12-01-2024 End: 12-02-[address] Les Shaikh DPMychal -Wound Healing Ce nt Work Phone: Start: 11-30-2024 End: 11-30-2024 Telephone encounter Supriya Concepcion [facility] Start: 11-30-2024 End: 11-30-2024 Office outpatient visit 40 minutes Cristine Carpio MD Work Phone: [facility] PM&R Comment on above: Tetraplegia (HCC) (P rimary Dx); Muscle spasticity; Urinary retention; Neurogenic bladder; Neurogenic bowel; Recurrent UTI; Autonomic dysreflexia; Neurogenic orthostatic hypotension (HCC); Spastic tetraplegia (HCC); Traumatic brain injury with loss of consciousness, sequela (HCC); Cervical spinal cord injury, sequela (HCC); 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 Markel Bell MD Work Phone: -[facility] Start: 11-25-2024 End: 11-25-[address] Markel Bell MD -[facility] Start: 11-25-2024 End: 11-25-2024 ambulatory Markel Bell Facility:[facility] Start: 11-24-[address] Les mcclellan DPM -Wound Healing Center Work Phone: Start: 11-19-2024 End: 11-23-2024 ambulatory UNKNOWN PROVIDER Facility:[facility] Start: 11-19-2024 End: 11-19-2024 Office outpatient visit 15 minutes Neelima Villarreal MD Work Phone: [facility] PM&R Comment on above: Tetraplegia (HCC) (P rimary Dx); Muscle spasticity; Body mass index (BMI) 32.0-32.9, adult Start: 11-12-2024 End: 11-18-2024 ambulatory Neelima Rockwell DO Work Phone: [facility] Comment on above: severe pain in both arms Start: 11-12-2024 End: 11-18-2024 E-mail encounter from caregiver Neelima Rockwell DO Work Phone: [facility] Start: 11-11-2024 ambulatory Les Shaikh Facility: [facility] Start: 11-11-2024 Non-patient / Non-visit Rosalina Bergman [facility] Start: 11-10-2024 End: 11-12-2024 Telephone encounter To Be Assigned [facility] PM[facility]R Comment on above: Botox for Spacticity Notes Start: 10-26-2024 End: 11-01-[address] Markel Bell MD Work Phone: -[facility] Start: 10-26-2024 End: 11-01-[address] Les Shaikh DPM -Wound Healing Ce nt Work Phone: Start: 10-19-2024 End: 10-19-2024 ambulatory Cindy Pastor PharmD [facility] Comment on above: Refill Start: 10-19-2024 End: 10-19-2024 Patient encounter procedure Cindy Pastor PharmD [facility] Comment on above: Specialty Pharmacy R eferral (Botox: new insurance); Prior Authorization Specialty Pharmacy R eferral (Dysport/Denied:Botox: new insurance); Prior Authorization Start: 10-09-2024 End: 10-09-2024 Letter encounter Cristopher Walker MD Work Phone: [facility] Start: 10-07-2024 End: 10-07-[address] Markel Bell MD Work Phone: [facility] Work Phone: Start: 10-07-2024 End: 10-07-[address] German Finney DPM -Radiology [place] Work Phone: Start: 10-07-2024 End: 10-07-2024 ambulatory German Finney Facility:[facility] Start: 10-05-[address] Marcell Finney [facility] Work Phone: Start: 09-28-2024 End: 09-28-2024 ambulatory In-Clinic Device Checks Work Phone: [facility] Device Comment on above: Pacemaker (Primary D x); Sinus node dysfunction (HCC) Start: 09-24-2024 End: 09-24-2024 ambulatory UNKNOWN PROVIDER Facility:[facility] Start: 09-21-2024 End: 10-02-[address] Markel Bell MD Work Phone: [facility] Work Phone: Start: 09-21-2024 End: 10-02-[address] German Finney [facility] Work Phone: Start: 08-29-2024 End: 08-29-2024 Letter encounter Cristopher Walker MD Work Phone: [facility] Start: 08-26-2024 End: 08-26-[address] Markel Bell MD -[facility] Start: 08-26-2024 End: 08-26-2024 ambulatory Markel Bell Facility:[facility] Start: 08-20-2024 End: 08-20-2024 ambulatory Cindy Pastor PharmD [facility] Start: 08-20-2024 End: 08-20-2024 Patient encounter procedure Cindy Vitakis PharmD [facility] Comment on above: Specialty Pharmacy R eferral (Botox); Prior Authorization Start: 08-19-2024 End: 08-19-2024 Patient encounter procedure [facility] Provider [facility] Comment on above: Tetraplegia (HCC) (P rimary Dx); Impaired functional mobility, balance, and endurance Start: 08-19-2024 End: 08-20-2024 Office consultation new/estab patient 80 min Shruthi Sheffield MD Work Phone: [facility] Orth[facility] Comment on above: Tetraplegia (HCC) (P rimary Dx) Start: 08-19-2024 End: 08-20-2024 ambulatory UNKNOWN PROVIDER Facility:[facility] Start: 08-19-2024 End: 08-20-2024 Office outpatient visit 15 minutes Ignacio Bonilla MD Work Phone: [facility] Comment on above: Tetraplegia (HCC) (P rimary Dx) Start: 08-18-2024 End: 08-18-2024 ambulatory Maxine Gu PT Work Phone: [facility] Physical Therapy Comment on above: PT Visit # (4) Start: 08-12-2024 End: 08-12-2024 Home visit Kaleigh Frank PT [facility] Physical Therapy Comment on above: Wheelchair Clinic (D elivery/fitting/pressure mapping in-home--visit 2) Start: 08-12-2024 End: 08-12-2024 ambulatory Kaleigh Frank PT [facility] Physical Therapy Start: 07-26-2024 End: 07-26-2024 ambulatory UNKNOWN PROVIDER Facility:[facility] Start: 07-21-2024 End: 07-21-2024 Cardiac Device Check Robert Aldana MD Work Phone: [facility] Start: 07-21-2024 End: 07-21-2024 Cardiac Device Check Robert Aldana MD Work Phone: [facility] Start: 07-19-2024 ambulatory UNKNOWN PROVIDER Facili ty:[facility] Start: 07-14-2024 End: 07-14-2024 ambulatory CRISTOPHER WALKER Facility:[facility] Start: 07-14-2024 End: 07-14-2024 Subsequent hospital visit by physician Op Ultrasound 2 [facility] Comment on above: Neurogenic bladder Start: 06-30-2024 End: 06-30-2024 ambulatory UNKNOWN PROVIDER Facility:[facility] Start: 06-30-2024 End: 06-30-2024 Office consultation new/estab patient 40 min Darnell Xiong MD Work Phone: [facility] Comment on above: H/O cardiac arrest ( Primary Dx); Other specified hypotension; Hypertriglyceridemia; Body mass index (BMI) 32.0-32.9, adult; Bradycardia, unspecified Start: 06-28-2024 End: 06-28-2024 Emergency department patient visit [facility] Start: 06-18-2024 End: 06-22-2024 ambulatory [facility] Amb[facility] Start: 06-14-2024 End: 06-15-2024 Office outpatient new 45 minutes Sci Fellow Michelle [facility] Comment on above: Tetraparesis (HCC) ( Primary Dx); Cervical spinal cord injury, sequela (HCC); Traumatic brain injury with loss of consciousness, sequela (HCC); Neurogenic bowel; Neurogenic bladder; Muscle spasticity; Erectile dysfunction, unspecified erectile dysfunction type; Immunodeficiency (HCC) Start: 06-14-2024 End: 06-15-2024 ambulatory UNKNOWN PROVIDER Facility:[facility] Start: 05-26-2024 End: 05-26-2024 ambulatory Maxine Gu PT Work Phone: [facility] Comment on above: PT Visit # (2) Start: 05-10-2024 End: 05-10-[address] [facility] Start: 04-26-2024 End: 04-26-2024 Letter encounter Mychart Provider [facility] Start: 04-26-2024 End: 04-27-2024 Telephone encounter Darnell Xiong MD Work Phone: [facility] Start: 04-26-2024 End: 04-26-2024 ambulatory Cathy Narayanan OTR/L [facility] Occupational Therapy Comment on above: OT Evaluation (Visit 1) PT Eval (1) Start: 04-20-2024 End: 04-20-2024 ambulatory [facility] Facility:[facility] Start: 04-18-2024 End: 04-20-2024 Cardiac Device Check Robert Aldana MD Work Phone: [facility] Start: 04-18-2024 End: 04-20-2024 Cardiac Device Check Robert Aldana MD Work Phone: [facility] Start: 04-13-2024 End: 04-29-2024 Telephone encounter Cristopher Walker MD Work Phone: [facility] Start: 04-13-2024 End: 04-13-2024 ambulatory [facility] Facility:[facility] Start: 04-12-2024 End: 04-12-2024 Telephone encounter Cristopher Walker MD Work Phone: [facility] Start: 04-09-2024 End: 04-09-2024 ambulatory CRISTOPHER WALKER Facility:[facility] Start: 04-09-2024 End: 04-09-2024 Office outpatient new 45 minutes Cristopher Walker MD Work Phone: [facility] Urologic Surgery Comment on above: Urine retention (Tasha mason Dx); Cloudy urine; Neurogenic bladder Start: 2024 End: 2024 Office outpatient new 45 minutes Ignacio Borrego MD Work Phone: Sports [facility] Comment on above: Bursitis of right sh oulder (Primary Dx); Tendinosis of right rotator cuff Start: 2024 End: 2024 ambulatory [facility] Facility:[facility] Start: 04-06-2024 End: 04-06-2024 Documentation procedure Kwan Oviedo PA-C Work Phone: [facility]rological Physicians Start: 04-06-2024 End: 04-06-2024 ambulatory [facility] Start: 04-02-2024 End: 04-02-2024 Transcribe Orders Daquan Fiore MD Work Phone: [facility] Start: 03-31-2024 End: 03-31-2024 Postop follow up visit related to original px Kwan Oviedo PA-C Work Phone: [facility] Comment on above: Cervical compression fracture, initial encounter (HCC) (Primary Dx); Acute pain of right shoulder; Tear of right supraspinatus tendon; Presence of IVC filter Start: 03-31-2024 End: 03-31-2024 ambulatory PHYSICIAN NO [facility] Amb[facility] Start: 03-30-2024 End: 03-30-2024 Transcribe Orders Daquan Fiore MD Work Phone: [facility] Start: 03-26-2024 End: 03-26-2024 ambulatory Markel Bell Facility:[facility] Start: 02-18-2024 End: 03-24-2024 Evaluation and management of inpatient LEONID GEORGE Facility:[facility] Start: 02-03-2024 Evaluation and management of inpatient PHYSICIAN [facility] Start: 01-20-[address] [facility] Amb[facility] Start: 01-06-2024 End: 01-06-2024 Evaluation and management of inpatient PHYSICIAN NO [facility] Start: 12-29-2023 End: 02-18-2024 Evaluation and management of inpatient LEONIDKINDRA RAERICK [facility] Start: 05-02-2023 End: 05-02-2023 ambulatory [facility] Work Phone: Start: 05-02-2023 End: 05-02-2023 Patient encounter procedure [facility] Start: 04-23-2017 End: 04-23-2017 Ambulatory [facility] Procedures Date Procedure Procedure Detail Performing Clinician Start: 03-09-2025 Chemodenervation one extremity 1-4 muscle Neelima Villarreal MD Work Phone: Start: 01-20-2025 Rem interrog pm/ldls pm <90 d phys/qhp Maria Teresa Arelis ReddyDarnell DO Work Phone: Start: 11-30-2024 25 hydroxy includes fractions if performed Cristine Carpio MD Work Phone: Start: 11-19-2024 Chemodenervation one extremity 1-4 muscle Neelima Villarreal MD Work Phone: Start: 11-03-[address] Markel Bell MD Work Phone: Start: 11-03-2024 Gram stain microscopy Debra Bell MD Work Phone: Start: 11-03-2024 End: 11-03-2024 Microbial culture, routine Dr. Markel cristina MD Work Phone: Start: 10-07-[address] Markel Bell MD Work Phone: Start: 10-07-2024 X-ray of foot, three or more views Dr. Markel Bell MD Work Phone: Start: 10-05-[address] Markel Bell MD Work Phone: Start: 10-05-2024 Gram stain microscopy Debra Bell MD Work Phone: Start: 10-05-2024 End: 10-05-2024 Microbial culture, routine Dr. Markel cristina MD Work Phone: Start: 09-28-2024 Prgrmg dev eval 1 le ad pm/ldls pm 1 car chmbr ip Alyssa Petit MD Work Phone: Start: 08-26-2024 Total iron binding c apacity measurement Dr. Markel Bell MD Work Phone: Start: 07-21-2024 CARDIAC REMOTE DEVICE CHECK Robert Aldana MD Work Phone: Start: 07-14-2024 Us retroperitoneal r eal time w/image complete Cristopher Walker MD Work Phone: Start: 06-30-2024 Ecg routine ecg w/le ast 12 lds trcg only w/o i&r Darnell Xiong MD Work Phone: Start: 04-18-2024 CARDIAC REMOTE DEVICE CHECK Robert Aldana MD Work Phone: Start: 04-09-2024 Urnls dip stick/tabl et rgnt auto w/o microscopy Cristopher Walker MD Work Phone: Start: 2024 Arthrocentesis aspir &/inj major jt/bursa w/o us Ignacio Borrego MD Work Phone: Start: 03-02-2024 Meropenem [facility]ID [facility] Comment on above: Order Comment: For i ndwelling catheters, specimen collection is acceptable on catheter day 1 and 2 only. Molina top vacutainer. Urine must be to the fill line to process (4mls). If minimum volume, send urine in a yellow top vacutainer tube.For indwelling catheters, specimen collection is acceptable on catheter day 1 and 2 only. ?For straight cath urines, a cut off of equal or greater than 10,000 CFU/mL is considered significant. Performed By: #### L [id number] #### [facility] ([facility]) [address] [place] [address] Plan of Treatment Date Care Activity Detail Author Start: 11-25-2029 Lipid panel Cholesterol [facility] Start: 08-26-2029 Lipid panel Cholesterol [facility] Start: 05-02-2028 Lipid panel Cholesterol [facility] Start: 2028 Shingles (RZV) Vaccine (1 of 2) Shingles (RZV) Vaccine (1 of 2) [facility] Start: 07-11-2025 End: 07-11-2025 Professional / ancillary services management 07/11/2025 8:00 AM EDT Cardiology Ancillary [facility] Cardiology [address] [place] [address] [facility] Start: 06-28-2025 Creatinine measurement Basic Metabolic Panel [facility] Start: 06-10-2025 End: 06-10-2025 Patient encounter procedure 06/10/2025 3:00 PM EST [facility] [address] [place], [place] [id number] Neelima Villarreal MD [address] [place] [address] [facility] Start: 04-11-2025 End: 04-11-2025 Professional / ancillary services management 04/11/2025 8:00 AM EST Cardiology Ancillary [facility] Cardiology [address] [place] [address] [facility] Start: 04-06-2025 End: 04-06-2025 Telemedicine consultation with patient 04/06/2025 11:15 AM EST Telemedicine [facility] Plastic Surgery [address] [place] [address] Shruthi Sheffield MD [address] [place] [address] [facility] Plastic Surgery Start: 03-14-2025 End: 03-14-2025 ambulatory 03/14/2025 12:45 PM EST [facility] Physical Therapy [address] [place] [address] Maxine Gu, PT [address] [place] [address] [facility] Physical Therapy Start: 03-09-2025 End: 03-09-2025 Patient encounter procedure 03/09/2025 2:30 PM EST Office Visit [facility] PM[facility]R [address] [place] [address] Neelima Villarreal MD [address] [place] [address] [facility] Start: 02-22-2025 End: 02-22-2025 Patient encounter procedure 02/22/2025 10:00 AM EDT Office Visit [facility] PM[facility]R [address] [place] [address] Cristine Carpio MD [address] [place] [address] [facility] Start: 02-16-2025 End: 02-16-2025 ambulatory 02/16/2025 10:30 AM EDT [facility] [address] [place] [address] Maxine Gu, PT [address] [place] [address] [facility] Start: 02-10-2025 End: 02-10-2025 ambulatory 02/10/2025 4:30 PM EDT [facility] Occupational Therapy [address] [place] [address] Kwan Verma, OTD, OTR/L, CHT [address] [place] [address] [facility] Occupational Therapy Start: 02-02-2025 Influenza vaccination Influenza Vaccine (#1) [facility] Start: 01-31-2025 End: 01-31-2025 ambulatory 01/31/2025 12:45 PM EDT [facility] [address] [place] [address] Maxine Gu, PT [address] [place] [address] [facility] Physical Therapy Start: 01-14-2025 End: 01-14-2025 ambulatory 01/14/2025 12:15 PM EDT [facility] OCC Therapy [address] [place] [address] Cornelia Garay, OT [address] [place] [address] [facility] OCC Therapy Start: 01-12-2025 End: 01-12-2025 ambulatory [facility] Start: 01-10-2025 End: 01-10-2025 Professional / ancillary services management 01/10/2025 8:00 AM EDT Cardiology Ancillary [facility] Cardiology [address] [place] [address] [facility] Cardiology Start: 01-05-2025 End: 01-05-2025 ambulatory [facility] Start: 01-03-2025 Influenza vaccination Influenza Vaccine (#1) [facility] Start: 12-29-2024 End: 12-29-2024 ambulatory 12/29/2024 1:30 PM EDT [facility] [address] [place] [address] Maxine Gu, PT [address] [place] [address] [facility] Physical Therapy Start: 12-29-2024 End: 12-29-2024 Professional / ancillary services management 12/29/2024 1:00 PM EDT Ancillary Procedure [facility] Bone Density [address] [place] [address] [facility] Bone Density Start: 12-23-2024 End: 12-23-2024 Patient encounter procedure 12/23/2024 2:00 PM EDT Office Visit [facility] Orthopedics Spine [address] [place] [address] Ignacio Bonilla MD [address] [place] [phone] Shruthi Sheffield MD [address] [place] [address] [facility] Start: 12-20-2024 End: 12-20-2024 ambulatory 12/20/2024 2:15 PM EDT [facility] Physical Therapy [address] [place] [address] Maxine Gu, PT [address] [place] [address] [facility] Physical Therapy Start: 12-15-2024 End: 12-15-2024 ambulatory 12/15/2024 12:45 PM EDT [facility] [address] [place] [address] Cathy Narayanan, OTR/L [address] [facility] [address] [place] [address] [facility] Start: 12-02-2024 End: 12-02-2024 ambulatory 12/02/2024 1:00 PM EDT [facility] [address] [place] [address] Kaleigh Frank, PT [address] [facility] [address] [place] [address] [facility] Start: 11-30-2024 End: 11-30-2025 DXA Skeletal system Views for bone density BD BONE DENSITY SURVEY + TIB FIB [place] ONLY Imaging Routine 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 Expected: 11/30/2024, Expires: 11/30/2025 [facility] Work Phone: Comment on above: Expected: 11/30/2024, Expires: Start: 11-30-2024 End: 11-30-2024 Patient encounter procedure 11/30/2024 11:30 AM EDT Office Visit [facility] PM&R [address] [place] [address] Cristine Carpio MD [address] [facility] [place] [place] [address] [facility]R Start: 11-26-2024 End: 11-26-2024 Patient encounter procedure 11/26/2024 2:30 PM EDT Procedure Visit [facility] [address] [place] [address] Neelima Rockwell DO [address] [place] [address] [facility] Start: 11-19-2024 End: 11-19-2024 Patient encounter procedure 11/19/2024 1:00 PM EDT Office Visit [facility] PM&R [address] [place] [address] Neelima Villarreal MD [address] [place] [phone] [facility] Start: 10-27-2024 End: 10-27-2024 Patient encounter procedure 10/27/2024 3:30 PM EDT Office Visit [facility] PM&R [address] [place] [address] Neelima Villarreal MD [address] [place] [phone] [facility] PM&R Start: 09-28-2024 End: 09-28-2024 ambulatory 09/28/2024 2:40 PM EDT [facility] [address] [place] [address] [facility] Start: 08-23-2024 End: 08-23-2024 Patient encounter procedure 08/23/2024 8:30 AM EDT Office Visit [facility] PM&R [address] [place] [address] [facility] PM[facility]R Start: 08-20-2024 End: 08-20-2024 Patient encounter procedure 08/20/2024 2:00 PM EDT Office Visit [facility] [address] [place] [address] Kathy Vicente APRN-FREDY [address] [place] [address] [facility] Start: 08-19-2024 End: 08-19-2024 Patient encounter procedure [facility] Start: 06-30-2024 End: 06-30-2024 Patient encounter procedure 06/30/2024 10:00 AM EST Office Visit [facility] [address] [place] [address] Darnell Xiong MD [address] [place] [address] [facility] Start: 06-23-2024 End: 06-23-2024 ambulatory 06/23/2024 2:00 PM EST [facility] Physical Therapy [address] [place] [address] Kaleigh Frank, PT [address] [facility] [place] [address] [facility] Physical Therapy Start: 06-16-2024 End: 06-16-2024 Telemedicine consultation with patient 06/16/2024 3:00 PM EST Telemedicine [facility] Physical Therapy [address] [place] [address] Kaleigh Frank, PT [address] [facility] [place] [address] [facility] Physical Therapy Start: 06-14-2024 End: 06-14-2024 Patient encounter procedure 06/14/2024 10:30 AM EST Office Visit [facility] PM&R [address] [place] [address] [facility] PM&R Start: 06-02-2024 End: 06-02-2024 Patient encounter procedure 06/02/2024 3:00 PM EST Office Visit [facility] Urologic Surgery [id number] [place] [address] Cristopher Walker MD [address] [place] [address] [facility] Start: 05-26-2024 End: 05-26-2024 ambulatory 05/26/2024 12:45 PM EST [facility] [address] [place] [address] Maxine Gu, PT [address] [place] [address] [facility] Start: 05-24-2024 End: 05-24-2024 ambulatory [facility] Start: 05-20-2024 End: 05-20-2024 ambulatory [facility] Start: 05-17-2024 End: 05-17-2024 ambulatory [facility] Start: 05-13-2024 End: 05-13-2024 ambulatory [facility] Start: 05-11-2024 End: 05-11-2024 Telemedicine consultation with patient 05/11/2024 2:00 PM EST Telemedicine Physical Medicine and Rehabilitation [facility] [address] [facility] [address] [place] [id number] Siva Fiore MD [address] [facility] [address] [place] [address] Physical Medicine and Rehabilitation [facility] Start: 05-10-2024 End: 05-10-2024 ambulatory [facility] Start: 05-07-2024 End: 05-07-2024 ambulatory [facility] Start: 05-04-2024 End: 05-04-2024 ambulatory [facility] Start: 04-29-2024 End: 04-29-2024 ambulatory [facility] Start: 04-26-2024 End: 04-26-2024 ambulatory 04/26/2024 3:45 PM EST [facility] [address] [place] [address] Silvestre Torres, PT [facility] Start: 04-26-2024 End: 04-26-2024 ambulatory 04/26/2024 1:30 PM EST [facility] [address] [place] [address] Cathy Narayanan, OTR/L [address] [place] [address] [facility] Start: 04-22-2024 End: 04-22-2024 ambulatory 04/22/2024 9:45 AM EST Allied [facility] [address] [place] [address] Silvestre Torres, ERIN [facility] Start: 04-22-2024 End: 04-22-2024 ambulatory 04/22/2024 8:15 AM EST [facility] [address] [place] [address] Cathy Narayanan, OTR/L [address] [facility] [place] [address] [facility] Start: 04-16-2024 End: 04-16-2024 Patient encounter procedure 04/16/2024 11:00 AM EST Office Visit [facility] [address] [place] [address] Eduardo Loya MD [address] [place] [address] [facility] Start: 04-15-2024 End: 04-15-2024 Patient encounter procedure 04/15/2024 10:20 AM EST Office Visit [facility] [address] [place], [place] [id number] Brynn Mccarty MD [address] [address] [facility] Start: 04-09-2024 End: 04-09-2025 US Kidney - bilateral and Urinary bladder US KIDNEY+BLADDER Imaging Routine Neurogenic bladder Expected: 04/09/2024, Expires: 04/09/2025 [facility] Work Phone: Comment on above: Expected: 04/09/2024, Expires: Start: 01-04-2024 COVID-19 Vaccine ( season) COVID-19 Vaccine ( season) [facility] Start: 01-04-2024 Influenza vaccination Influenza Vaccine (#1) [facility] Start: 2023 Screening for malignant neoplasm of colon [facility] Start: 08-22-2020 Tetanus vaccination [facility] Start: 2018 Lipid panel LIPID SCREENING [facility] Start: 2013 Lipid panel Cholesterol [facility] Start: 2005 HPV Vaccine (optional start 27-45 years) HPV Vaccine (optional start 27-45 years) [facility] Start: 1997 Hepatitis A (HAV) Vaccine (optional start 19+ years) Hepatitis A (HAV) Vaccine (optional start 19+ years) [facility] Start: 1997 Hepatitis B vaccination [facility] Start: 1997 Pneumococcal vaccination Pneumococcal Vaccine(s) (1 of 2 - PCV) [facility] Start: 1997 Shingles (RZV) Vaccine (1 of 2) Shingles (RZV) Vaccine (1 of 2) [facility] Start: 1997 Tetanus vaccination Tetanus (Td or Tdap) Booster [facility] Start: 1996 Hepatitis C screening [facility] Start: 1996 Tdap Booster Tdap Booster [facility] Start: 1993 HIV screening [facility] Start: 1990 Depression screening using PHQ-9 (Patient Health Questionnaire 9) score Depression Screening/Follow-Up (PHQ-2/9) [facility] Start: 1983 COVID-19 Vaccine (#1) COVID-19 Vaccine (#1) [facility] Start: 1981 History and physical examination, annual for health maintenance Wellness Visit [facility] Start: 1978 Hepatitis C screening HEPATITIS C VIRUS SCREENING [facility] Start: 1978 Prostate specific antigen measurement PSA Level [facility] Start: 1978 Screening for malignant neoplasm of colon [facility] Bacteria identified in Urine by Culture URINE CULTURE Microbiology Routine Cloudy urine 04/09/2024 5:07 PM EST [facility] Immunoassay analyte quant radioimmunoassay PROCOLLAGEN N1 TP Anatomic Pathology After office visit 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 11/30/2024 12:20 PM EDT [facility] End: 03-31-2025 MR Shoulder - right WO contrast MR Shoulder Right Without Contrast Imaging STAT Acute pain of right shoulder Tear of right supraspinatus tendon 1 Occurrences starting 03/31/2024 until 03/31/2025 [facility] Work Phone: Comment on above: 1 Occurrences starting 03/31/2024 until 03/31/2025 [facility] Work Phone: Payers Date Payer Category [facility] [id number] 11-02-2024 Specific state progr [facility] (list/ local code) [employer] [id number] 11-02-2024 Unknown [id number] 09-02-2024 Medicaid (Managed Care) 1.2. [id number] 03-26-2024 Self-pay [id number] 02-03-2024 Medicaid [id number] 02-03-2024 Medicaid [id number] 12-29-2023 Auto Insurance [employer] [id number] 12-29-2023 Unknown [id number] 12-29-2023 Unknown [id number] 05-05-2023 Commercial Managed C are - HMO [id number] 05-05-2023 Managed Care (unspecified) [employer] HMO/NTWK/OACCESS/OA+/POS [id number]. [id number] 05-05-2023 Private Health Insurance CIGTRINY PAEZ [id number] 05/05/2023-Present [address] [place] [address] [id number]. [id number] 05-05-2023 Private Health Insurance [id number] 07-04-2011 Private Health Insurance [id number] 1978 Unknown [id number] 2.16.840.1.697796.3.579.2. 594 1978 Unknown [id number] 2.16.840.1.081154.3.579.2. 900 1978 Unknown [id number] 2.16.840.1.519790.3.579.2. 903 1978 Unknown [id number] 2.16.840.1.225322.3.579.2. 903 1978 Unknown [id number] 2.16.840.1.406001.3.579.2. 903 1978 Unknown [id number] 2.16.840.1.947082.3.579.2. 903 1978 Unknown [id number] 2.16.840.1.468095.3.579.2. 903 1978 Unknown [id number] 2.16.840.1.428254.3.579.2. 903 1978 Unknown [id number] 2.16.840.1.537580.3.579.2. 903 1978 Unknown [id number] 2.16.840.1.750141.3.579.2. 903 1978 Unknown [id number] 2.16.840.1.682257.3.579.2. 732 1978 Unknown [id number] 2.16.840.1.133278.3.579.2. 732 1978 Unknown [id number] 2.16.840.1.593196.3.579.2. 732 1978 Unknown [id number] 2.16.840.1.532079.3.579.2. 732 1978 Unknown [id number] 2.16.840.1.283419.3.579.2. 732 1978 Unknown [id number] 2.16.840.1.971669.3.579.2. 73 1978 Unknown [id number] 2.16.840.1.177437.3.579.2. 1978 Unknown [id number] 2.16.840.1.828949.3.579.2 73 1978 Unknown [id number] 2.16.840.1.698209.3.579.2 1978 Unknown [id number] 2.16.840.1.378466.3.579.2 1978 Unknown [id number] 2.840.1.241441.3.579.2 1978 Unknown [id number] 2.16.840.1.604260.3.579.2 1978 Unknown [id number] 2.16.840.1.600397.3.579.2 1978 Unknown [id number] 2.16.840.1.270703.3.579.2 1978 Unknown [id number] 2.840.1.773555.3.579.2 1978 Unknown [id number] 2.16.840.1.667824.3.579.2. 1978 Unknown [id number] 2.16.840.1.009739.3.579.2 1978 Unknown [id number] 2.16.840.1.369919.3.579.2. 1978 Unknown [id number] 2.16.840.1.526490.3.579.2. 1978 Unknown [id number] 2.16.840.1.744879.3.579.2. 732 1978 Unknown [id number] 2.840.1.250262.3.579.2. 732 1978 Unknown [id number] 2.840.1.528909.3.579.2. 732 1978 Unknown [id number] 2.840.1.395324.3.579.2. 732 1978 Unknown [id number] 2.840.1.965046.3.579.2. 732 1978 Unknown [id number] 2.840.1.508377.3.579.2. 732 1978 Unknown [id number] 2.840.1.324266.3.579.2. 732 1978 Unknown [id number] 2.0.1.289993.3.579.2. 732 1978 Unknown [id number] 2.840.1.725531.3.579.2. 732 Unknown [id number] Unknown [id number] 2.840.1.279270.3.579.2. 462 Unknown [id number] 2.840.1.846433.3.579.2. 462 Unknown [id number] .840.1.212916.3.579.2. 462 Unknown [id number] 2.840.1.368312.3.579.2. 462 Unknown [id number] 2.840.1.952415.3.579.2. 462 Unknown [id number] 2.840.1.103750.3.579.2. 462 Unknown [id number] 2.840.1.901655.3.579.2. 462 Unknown [id number] 2.16.840.1.107570.3.579.2. 462 Unknown [id number] 2.16.840.1.748457.3.579.2. 462 Unknown [id number] 2.16.840.1.193788.3.579.2. 462 Unknown [id number] 2.16.840.1.048124.3.579.2. 462 Unknown [id number] 2.16.840.1.706816.3.579.2. 462 Unknown [id number] 2.16.840.1.412411.3.579.2. 462 Unknown [id number] 2.16840.1.306048.3.579.2. 462 Unknown [id number] 2.16.840.1.395556.3.579.2. 462 Unknown [id number] 2.840.1.585291.3.579.2. 462 Unknown [id number] 2.840.1.709462.3.579.2. 732 Social History Date Type Detail Facility Start: 2021 Tobacco smoking status NHIS Unknown if ever smoked [facility] Start: 02-04-2017 None [facility] Start: 02-04-2017 Spouse/ Significant Other [facility] Start: 02-04-2017 Non-smoker [facility] Start: 1978 Sex Assigned At Male [facility] Start: 1978 Sex assigned at Not on file [facility] Start: 03-23-2024 Sex Male (finding) [facility] Start: 01-11-2024 End: 07-26-2024 Gender identity Not on file [facility] Start: 12-29-2023 End: 06-30-2024 Tobacco smoking status NHIS Never smoked tobacco [facility] Start: 12-29-2023 End: 06-30-2024 Tobacco use and exposure Smokeless tobacco non-user [facility] Start: 03-31-2024 End: 06-28-2024 Alcoholic beverage intake Current drinker of alcohol (finding) [facility] Start: 03-31-2024 End: 07-26-2024 Alcoholic beverage intake [facility] Has the [employer], ga s, oil, or water company threatened to shut off services in your home in past 12Mo Patient unable to answer [facility] Has the [employer], ga s, oil, or water company threatened to shut off services in your home in past 12Mo No [facility] (I/We) worried wheth er (my/our) food would run out before (I/we) got money to buy more. Never true [facility] Start: 06-28-2024 Gender identity Identifies as male gender (finding) [facility] Start: 06-28-2024 Sexual orientation Heterosexual (finding) [facility] Do you belong to any clubs or organizations such as temple groups, unions, [employer] [employer] or athletic groups, or school groups? Yes [facility] Are you now , , , , never or living with a partner? [facility] Do you feel stress - tense, restless, nervous, or anxious, or unable to sleep at night because your mind is troubled all the time - these days [OSQ] To some extent [facility] Start: 07-26-2024 Education 21 [facility] Procedure Code Equipment Code Equipment Original Text Equipment Identifier Dates Putty 5cc Grafto n [facility] - [id number] Start: 01-22-2024 Comment on above: Description: Bilateral Putty 10cc Graft on Db - [id number]_imp Start: 01-29-2024 Closure Perclose Prostyle - [id number] 154_imp Start: 01-13-2024 Closure Perclose Prostyle - [id number] 154_imp Start: 01-13-2024 Closure Perclose Prostyle - [id number] 166_imp Start: 01-13-2024 Graft 3 X 3in Du ral Duragen Plus - [id number] 278_imp Start: 12-30-2023 Graft 3 X 3in Du ral Duragen Plus - [id number] 278_imp Start: 12-30-2023 Strip 10 X 2 X 0 .6cm 12cc Dbl Mastergraft - [id number] 398_imp Start: 01-29-2024 Graft 3 X 3in Du ral Duragen Plus - [id number] 0638_imp Start: 02-09-2024 Graft 3 X 3in Du ral Duragen Plus - [id number] Start: 02-09-2024 Filter Vena Cava Femoral Celect [place] - [id number] 8453_imp Start: 01-08-2024 Mesh 90 X 90mm M ed Malleable Dynamic - [id number] 0807_imp Start: 02-09-2024 Pacer Micra Av2 Dual Leadless Device - [id number] 1537_imp Start: 01-13-2024 Tube 8.5mm Trach Flexible Cuffed Disp Inner Cannula Marcy - [id number] 1978_imp Start: 01-14-2024 Tube 24fr Enfit Peg Feeding Pull Method Trey Kit - [id number]_imp Start: 01-15-2024 Hemostat 4 X 8in Surgicel Original Absorbable - [id number] 2787_imp Start: 12-30-2023 Hemostat 4 X 8in Surgicel Original Absorbable - [id number] 2788_imp Start: 12-30-2023 Hemostat 8 X 12. 5cm X 10mm Surgifoam Gelatin Sponge - [id number] 2783_imp Start: 12-30-2023 Hemostat 8 X 12. 5cm X 10mm Surgifoam Gelatin Sponge - [id number] 2784_imp Start: 12-30-2023 Hemostat 8 X 12. 5cm X 10mm Surgifoam Gelatin Sponge - [id number] 2785_imp Start: 12-30-2023 Sealant 10ml Hem ostatic Matrix Fast Prep Floseal W/Recothrom - [id number] 2786_imp Start: 12-30-2023 Hemostat 2 X 4in Surgicel Fibrillar - [id number] 8481_imp Start: 01-22-2024 Hemostat 8 X 12. 5cm X 10mm Surgifoam Gelatin Sponge - [id number] 8483_imp Start: 01-22-2024 Sealant 10ml Hem ostatic Matrix Fast Prep Floseal W/Recothrom - [id number] 8484_imp Start: 01-22-2024 Comment on above: Description: Load# 01-07, 01/14/24 Sealant 10ml Hem ostatic Matrix Fast Prep Floseal W/Recothrom - [id number] Start: 01-22-2024 Comment on above: Description: Load# 01-07, 01/14/24 Hemostat 4 X 8in Surgicel Original Absorbable - [id number] Start: 01-22-2024 Cage 12 X 14 X 2 2-28mm 0deg Parallel W/Set Screw Ti Ana - [id number] 8487_imp Start: 01-22-2024 Screw 4 X 14mm B one Va-Sd Hybrid - [id number] Start: 01-22-2024 Comment on above: Description: Load# 01-, 01/14/24 Plate 37mm 2-Lev Ant Cerv Hybrid - [id number]_imp Start: 01-22-2024 Comment on above: Description: Load# 01-, 01/14/24 Hemostat 2 X 4in Surgicel Fibrillar - [id number] 3977_imp Start: 01-29-2024 Hemostat 8 X 12. 5cm X 10mm Surgifoam Gelatin Sponge - [id number] 397_imp Start: 01-29-2024 Screw 3.5 X 26mm Post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 instability which improved with medication management. His pacemaker did activate during the rehabilitation hospitalization and was interrogated by Cardiology and is working fine. He will follow-up with his local top steep tender. He did have some desaturation on overnight oxygen testing back in late February and although improved we still provided oxygen at home during sleep to wean as able. Follow up appointments were made Precautions: Per verbal order from MD- Jaclyn elbow brace to increase elbow extension- may be candidate for biceps to triceps transfer if ROM can be improved to functional level. Payor: [facility] / Plan: [employer] HMO / Product Type: Medicaid HMO Maida Polanco is a 44 year old R hand dominant male. Past Medical History as of 02/10/2025: Medical History[1] Medications: See snapshot for updated medication list. Employment: not working, disability Identification was verified by patient verbalizing name and date of . SUBJECTIVE: Pt reports tightness in elbow, hard to exercise on own. Present with . Patient's Goals: improve elbow extension Pain scale: Pain is 0/10. Pain located at R elbow and is described as tightness. No pain to address this visit. OBJECTIVE: Functional Deficits/ADL Status: Patient repo (more content not included)... [facility] 02-08-2025 Note Specialty Pharmacy I nvestigation Note: Appt: 03/09/25 Referral: [id number] Medication: Dysport 1500 units q3mo Provider: Neelima Villarreal MD Diagnosis: G82.50 (ICD-10-CM) - Tetraplegia (HCC) M62.838 (ICD-10-CM) - Spasm of muscle Benefit: pharmacy Additional info: - Patient has new insurance now, gainwell as pharmacy benefits, please try PA through pharmacy benefits first. Therapy Status: Continuation of therapy Reviewed During This Encounter: Allergies, Immunizations, Medications (Med Rec Completed), Problem list, Relevant labs (see Synposis), Comorbidities, Patient reported answers, Interactions (Drug-Drug, Drug-Allergy, Drug-Disease) Appropriate actions will follow, which may include a prior authorization, patient assistance, and/or sending to the appropriate filling pharmacy. Updates will be made within [employer]. Guevara Arias PharmD [facility] 02-08-2025 History of Present illness Narrative Specialty Pharmacy Investigation Note: Appt: 03/09/25 Referral: [id number] Medication: Dysport 1500 units q3mo Provider: Neelima Villarreal MD Diagnosis: G82.50 (ICD-10-CM) - Tetraplegia (HCC) M62.838 (ICD-10-CM) - Spasm of muscle Benefit: pharmacy Additional info: - Patient has new insurance now, gainwell as pharmacy benefits, please try PA through pharmacy benefits first. Therapy Status: Continuation of therapy Reviewed During This Encounter: Allergies, Immunizations, Medications (Med Rec Completed), Problem list, Relevant labs (see Synposis), Comorbidities, Patient reported answers, Interactions (Drug-Drug, Drug-Allergy, Drug-Disease) Appropriate actions will follow, which may include a prior authorization, patient assistance, and/or sending to the appropriate filling pharmacy. Updates will be made within [employer]. Guevara Arias PharmD documented in this encounter [facility] 01-31-2025 History of Present illness Narrative PHYSICAL THERAPY OUTPATIENT NEUROLOGICAL NOTE Visit Number: 2 (previous bout 4) Referring Provider: Cristine Carpio MD Previous referral: Neelima Rockwell MD Diagnosis: Tetraplegia ([facility]) [G82.50] Previous diagnosis: Injury of cervical spinal cord, initial encounter ([facility]) [S14.109A] C4 complete (per notes) Onset Date: 2023 Mindi Hanson Trial Consultant: [email or web address] [phone] Precautions: micro-pacer (no stim above waist) Authorized visits: 14 Identification was verified by patient verbalizing his name and date of . Interpretor: non required Joey = Son = Kendall Payor: [employer] / Plan: [facility] / Product Type: Medicaid HMO Identification was verified by patient verbalizing his name and date of . SUBJECTIVE: Presents with [id number] driving his PWC. [employer] vendor Eelazar is present with [employer] and [employer] Vendor for head array trials. 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 Accompanied by Joey (spouse). Transportation: power van + rear entrance Patient Goals: obtain wheelchair, obtain info for in home tech / assistance, guidance for continued HEP / rehab Discussed Risks/Benefits of Therapy: Yes Hand Dominance: Right OBJECTIVE: *all per initial evaluation unless otherwise noted for re-evaluation purposes Patient Goals: obtain wheelchair, obtain info for in home tech / assistance, guidance for continued HEP / rehab Posture: ABNORMAL - forward head, - protracted, upper cervical extended, lower cervical is flexed, cervical flexors extended, cervical extenders shortened IMPROVED 08/18/24 12/29/24 Decreased cervical extension, unable to rest head at head rest, unable to utilize head array Skin integrity: Left 5th toe pressure wound from positioning Discussed PRAFO boots - contacting [facility] manager of case for adjustments / new ones due to wear down IMPROVED 08/18/24 Wound care today 12/29/24 - osteomyelitis - side of lateral foot, big toe Orthotic Checkout: Prevalon boots for nighttime Not using Elevating feet + hospital bed + pillows 12/29/24 4 band abdominal binder Yves hoes bilateral PRAFO's x2 Not using Pressure sores on back of legs 12/29/24 Equipment Checkout: Wheelchair: 2024 Make/model: Permobil M3, Mid-wheel, head array Vendor: Tom Block, OT, [facility], [facility] [phone] Age of equipment: [birth year]22 Cushion Make: MICHAELLE Age of equipment: [birth year]24 Other: power-lift / emma-lift, hospital bed ([facility]) ordered a bed extension (denied by insurance), roll-in shower chair, PWC ([facility] order placed for [employer] + electro-bike PROM: Date: 04/26/24 12/29/24 Side: R/L R/L HIP hamstring SLR at 9/90 WFL WFL ANKLE DF 0/0 0/0 Cervical AROM: in degrees Date: 04/26/24 08/18/24 12/29/24 Pain? Flexion: 10 10 20 Y not anymore Extension: 30 30 30 Y not anymore R Rotation 30 40 30 Y not anymore L Rotation: 50 50 30 Y not anymore R Lateral Flexion: 20 20 20 Y not anymore L Lateral Flexion 10 10 10 Y not anymore STRENGTH: Manual Muscle Test: 5= normal Date: 04/26/24 12/29/24 Side: R/L R/L HIP flex 0 / 0 0/0 ext 0 / 0 0/0 abd 0 / 0 0/0 add 0 / 0 0/0 KNEE ext 0 / 0 0/0 flex 0 / 0 0/0 ANKLE DF 0 / 0 0/0 PF 0 / 0 0/0 INV 0 / 0 0/0 EV 0 / 0 0/0 Tone: Modified Leroy Scores for Spasticity: 0 = no increase in muscle tone 1 = Slight increase in muscle tone, manifested as a [id number] or by minimal resistance at the end of range of motion 1+ = Slight increase in muscle tone, manifested by a catch, followed by minimal resistance throughout the remainder (less than half) of the range of motion 2 = More marked increase in muscle tone through most of the range of motion, but the part affected is still able to be easily moved 3 = Considerable increase in muscle tone; passive involvement difficult 4 = Affected part is rigid Muscle group R L Hip flexors Hip ADDuctors Knee flexors Knee extensors Ankle Plantarflexors Ankle Inversion Ankle Eversion Coordination: unable to test LE's due to weakness Proprioception: unable to test LE's due to weakness BALANCE TESTS: SHORT Sitting Balance: 04/26/24 Supported: With PWC backrest support - dependent Unsupported Unsupported with Eyes Closed: Reach to ankles Reach to floor Reach laterally Posterior lean, return to midline LONG Sitting Balance: Not appropriate Supported: Unsupported Unsupported with Eyes Closed Reach to ankles Reach to floor Reach laterally Posterior lean, return to midline FUNCTIONAL MOBILITY: Mat Mobility: 04/26/24 Short sit to long sit totalA Long sit to supine totalA Supine Roll to R totalA Supine Roll to L totalA Supine to long sitting via retro UE depression: totalA Supine to long sit via modified c maneuver through half sidelying totalA Long sit to short sit: totalA Sidelying to prone: totalA Prone to sidelying totalA Transfer status: 04/26/24 Level surfaces Power emma lift 2 difference 4 difference 6 difference Car transfers Power van with rear ramp entrance Floor transfers: Gait: N/A -- patient is non-ambulatory at this time Wheelchair Mobility/Skills: 04/26/24 Level surface propulsion: Household Distances: PWC - dependent in loaner chair Once head array will need training Level surface propulsion: community distances (> 1000 ft) : Unlevel surfaces community propulsion: Ramp negotiation: Static wheelie: Forward progression in wheelie: Turning in wheelie: 2 curb: 4 curb: 6 curb: SCIM: Spinal Cord Independent Measure: *A test to measure level of impairment with respect to functional mobility for acute and chronic SCI (higher scores = less impairment and higher physical functioning) * using only the Mobility sub-section ; questions 9-17 (Total Sub Score is out of 40) Date: 04/26/24 Scores as follows: 12/30/24 Mobility in bed: 0 0 Transfers: bed<> wheelchair 0 0 Transfers: wheelchair <>toilet<> tub 0 0 Mobility: Indoors 0 0 Mobility for Moderate Distances (10-100 meters; 32-328 ft) 0 0 Mobility Outdoors: (> 328 ft) 0 0 Stair Management 0 0 Transfers: wheelchair <> car 0 0 Transfers: ground <> wheelchair 0 0 MOBILITY SUB SCORE = 0/40 040 BALANCE: dependent, may train in future PRN functional progression GAIT: nonambulatory Functional Mobility: defer, seen in wheelchair, emma lift INTERVENTIONS: *All interventions done with verbal instructions, verbal cues, demonstration, and tactile assistance to produce the desired movement Therapeutic Activity/WC management: *PT provided physical assistance and cuing stated below in order to facilitate correct and safe performance of functional activities. 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 TRIALS: Head array from initial [facility] / [employer] vendor was trialed at home with vendor/tech and this was not appropriate and was a FAILED trial Complexity of head array, amplitude of motion required, dual directions of motion and maintained pressure required and amount of pressure required Head array trialed today in clinic with DREA Zamorano [employer] Vendor Eleazar [employer] Cate and secondary I-mobility Secondary head array today was a FAILED trial Due to neck stiffness, soreness, pain, decreased ROM, inability to maintain positions required, maintain pressure required and dual task between directions of movement / motion required Adjusted PWC positioning into and out of tilt Adjusted head array position Adjusted and decreased required pressure to minimum amount NEXT VISIT We will try the IDRIVE We will try the chin drive EQUIPMENT NEEDS AND JUSTIFICATION: L arm trough with hand component: arm pads to facilitate optimal positioning of upper extremities and decreased pressure on upper extremities while in resting position, reducing risk of UE migration laterally or medially due to limited UE strength. Hardware required to interface pad with armrest and seating system and alter position appropriately for proper UE and trunk posture. R arm guide / arm rest: will document need at next visit LMN for shower chair: attached to this note: will document need at next visit Scheduled with OT at [facility] for RUE bracing options HOME EXERCISE PROGRAM: Access Code: [email or web address] URL: [email or web address] Date: 04/26/2024 Prepared by: Maxine Gu Exercises - Supine Hamstring Stretch with Caregiver - 1 x daily - 5-7 x weekly - 1 sets - 2 reps - 30-60 seconds hold - Supine Hip and Knee Flexion PROM with Caregiver - 1 x daily - 5-7 x weekly - 1 sets - 1-2 reps - 30-60 seconds hold - Hip Internal and External Rotation Caregiver PROM - 1 x daily - 5-7 x weekly - 1 sets - 2-3 reps - 30-60 seconds hold - Supine Hip Abduction PROM with Caregiver - 1 x daily - 5-7 x weekly - 1 sets - 2-3 reps - 30-60 seconds hold - Supine Soleus Stretch with Caregiver - 1 x daily - 5-7 x weekly - 1 sets - 2-3 reps - 30-60 seconds hold - Supine Gastroc Stretch with Caregiver - 1 x daily - 5-7 x weekly - 1 sets - 2-3 reps - 30-60 seconds hold - Foot Dorsiflexion PROM Caregiver - 1 x daily - 5-7 x weekly - 1 sets - 2-3 reps - 30-60 seconds hold - Sidelying Hip Extension PROM with Caregiver - 1 x daily - 5-7 x weekly - 1 sets - 2-3 reps - 30-60 seconds hold Access Code: [email or web address] URL: [email or web address] Date: 05/26/2024 Prepared by: Maxine Gu Exercises - Supine Chin Tuck - 1 x daily - 7 x weekly - 2 sets - 10 reps - Supine Cervical Rotation AROM on Pillow - 2 x daily - 7 x weekly - 2 sets - 10 reps - Supine Deep Neck Flexor Training - Repetitions - 2 x daily - 7 x weekly - 2 sets - 10 reps - Supine Isometric Neck Rotation - 2 x daily - 7 x weekly - 2 sets - 10 reps - Supine Isometric Neck Sidebend - 2 x daily - 7 x weekly - 2 sets - 10 reps - Supine Isometric Neck Flexion - 2 x daily - 7 x weekly - 2 sets - 10 reps - Supine Isometric Neck Extension - 2 x daily - 7 x weekly - 2 sets - 10 reps - Seated Shoulder Shrugs - 2 x daily - 7 x weekly - 2 sets - 10 reps - Seated Scapular Retraction - 2 x daily - 7 x weekly - 2 sets - 10 reps ADDED 07/19/24: - Seated Neck Sidebending with Band - 2 x daily - 7 x weekly - 2 sets - 10-15 reps - Seated Neck Flexion and Extension with Band - 2 x daily - 7 x weekly - 2 sets - 10-15 reps HEP: LE stretching - 30 min per day UE stretching - 15/20 min Cervical - HEP has not been performed much, educated on need, perform when tilting for pressure relief in PWC, green TB is issued for future progressions (has yellow and red) BP checks regularly from spouse New PWC able to use recline and tilt Discussed pressure relief - timers, every 30 min or less 5 degrees of recline and using tilt today Waiting for head array - David PT to train at home visit 12/29/24: head array unable to be used - needs WC clinic appointment I will set up with sandro and myself (PT) due to Wheelchair Clinic availability Patient Education: Role of PT, POC, scheduling, HEP ASSESSMENT: This date trials for patient independent driving failed. Head array unable to work with patient due to required sustained pressure, head movement and dual head motions required for independent dirinvg. Since IPR stay at [facility] significant neck pain, soreness, stiffness and continued declined strength and ROM even with HEP trained and issued with this PT in outpatient neuro setting for ROM and strength of the cervical spine. Will require further trials and wheelchair parts / equipment ordered at next visit. LUE with poor positioning and ill-fitting arm rest, RUE with poor positioning and ill-fitting arm rest, needs tetra OT clinic appointment for RUE bracing, and needs documentation for most appropriate shower chair. Next session will have further documentation, justification and descriptions. Problems: impairments of complete SCI injury including but not limited to LE strength, coordination, proprioception, functional mobility, functional strength, functional ambulation, functional posturing, use of power wheelchair, use of HEP for daily passive stretching with caregiver / spouse, sitting posture / stability / balance, decreased cervical ROM/flexibility/pain management PROBLEMS TO BE ADDRESSED: functional posturing (cervical ROM, strength, flexibility), addressing head array and PWC driving options with numotion, positioning in PWC, equipment needs; helping to acquire all necessary appointments Prognosis for therapy: Fair for goals - complexity of case, level of injury, family support PLAN OF CARE: Usp Goals (8-10 Visits) Pain - Patient will demonstrate improved postural control at head and neck without cueing in order to preserve function, and increase use of head array in safe manner with proper technique Patient centered goal: Assistance to obtain all ordered equipment, needed training in home, guidance for equipment / support Wheelchair management : (to achieve highest level of independence / accessibility in the community) Patient will be able to verbalize set up, positioning, and direct all care from wheelchair level at independence Wheelchair mobility: (to achieve highest level of independence at home and in the community setting) Patient will be able to demonstrate independent driving with use of head array in home and community settings, on level surfaces, up/down ramps and on carpeted surfaces NEXT SESSION: driving trials (2 types) Start Time: 12:45 PM Stop Time: 2:15 PM Total Treatment Minutes: 90 minutes Timed Code Treatments by Procedure: 45 theract minutes 45 WC management minutes Total Timed Code Treatment Minutes: 90 minutes Un-Timed Code Treatments by Procedure: --- Total Un-Timed Code Treatment Minutes: --- minutes Maxine Gu PT, DPT Board-Certified Clinical Specialist in Neurological Physical Therapy Outpatient Neurological Physical Therapist documented in this encounter [facility] 01-31-2025 History of Present illness Narrative PHYSICAL THERAPY OUTPATIENT NEUROLOGICAL NOTE Visit Number: 2 (previous bout 4) Referring Provider: Cristine Carpio MD Previous referral: Neelima Rockwell MD Diagnosis: Tetraplegia (HCC) [G82.50] Previous diagnosis: Injury of cervical spinal cord, initial encounter ([facility]) [S14.109A] C4 complete (per notes) Onset Date: 2023 Mindi Hanson Trial Consultant: [email or web address] [phone] Precautions: micro-pacer (no stim above waist) Authorized visits: 14 Identification was verified by patient verbalizing his name and date of . Interpretor: non required Joey = Son = Kendall Payor: [employer] / Plan: [facility] H[facility] / Product Type: Medicaid HMO Identification was verified by patient verbalizing his name and date of . SUBJECTIVE: Presents with [id number] driving his PWC. [employer] vendor Eleazar is present with [employer] and I-mobility Vendor for head array trials. 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 Accompanied by Joey (spouse). Transportation: power van + rear entrance Patient Goals: obtain wheelchair, obtain info for in home tech / assistance, guidance for continued HEP / rehab Discussed Risks/Benefits of Therapy: Yes Hand Dominance: Right OBJECTIVE: *all per initial evaluation unless otherwise noted for re-evaluation purposes Patient Goals: obtain wheelchair, obtain info for in home tech / assistance, guidance for continued HEP / rehab Posture: ABNORMAL - forward head, - protracted, upper cervical extended, lower cervical is flexed, cervical flexors extended, cervical extenders shortened IMPROVED 08/18/24 12/29/24 Decreased cervical extension, unable to rest head at head rest, unable to utilize head array Skin integrity: Left 5th toe pressure wound from positioning Discussed PRAFO boots - contacting [facility] manager of case for adjustments / new ones due to wear down IMPROVED 08/18/24 Wound care today 12/29/24 - osteomyelitis - side of lateral foot, big toe Orthotic Checkout: Prevalon boots for nighttime Not using Elevating feet + hospital bed + pillows 12/29/24 4 band abdominal binder Yves hoes bilateral PRAFO's x2 Not using Pressure sores on back of legs 12/29/24 Equipment Checkout: Wheelchair: 2024 Make/model: Permobil M3, Mid-wheel, head array Vendor: Tom Block, OT, [facility], [facility] [phone] Age of equipment: [birth year]24 Cushion Make: MICHAELLE Age of equipment: [birth year]24 Other: power-lift / emma-lift, hospital bed ([facility]) ordered a bed extension (denied by insurance), roll-in shower chair, PWC ([facility]) order placed for [employer] + electro-bike PROM: Date: 04/26/24 12/29/24 Side: R/L R/L HIP hamstring SLR at 9/90 WFL WFL ANKLE DF 0/0 0/0 Cervical AROM: in degrees Date: 04/26/24 08/18/24 12/29/24 Pain? Flexion: 10 10 20 Y not anymore Extension: 30 30 30 Y not anymore R Rotation 30 40 30 Y not anymore L Rotation: 50 50 30 Y not anymore R Lateral Flexion: 20 20 20 Y not anymore L Lateral Flexion 10 10 10 Y not anymore STRENGTH: Manual Muscle Test: 5= normal Date: 04/26/24 12/29/24 Side: R/L R/L HIP flex 0 / 0 0/0 ext 0 / 0 0/0 abd 0 / 0 0/0 add 0 / 0 0/0 KNEE ext 0 / 0 0/0 flex 0 / 0 0/0 ANKLE DF 0 / 0 0/0 PF 0 / 0 0/0 INV 0 / 0 0/0 EV 0 / 0 0/0 Tone: Modified Leroy Scores for Spasticity: 0 = no increase in muscle tone 1 = Slight increase in muscle tone, manifested as a [id number] or by minimal resistance at the end of range of motion 1+ = Slight increase in muscle tone, manifested by a catch, followed by minimal resistance throughout the remainder (less than half) of the range of motion 2 = More marked increase in muscle tone through most of the range of motion, but the part affected is still able to be easily moved 3 = Considerable increase in muscle tone; passive involvement difficult 4 = Affected part is rigid Muscle group R L Hip flexors Hip ADDuctors Knee flexors Knee extensors Ankle Plantarflexors Ankle Inversion Ankle Eversion Spasms in the legs, triggered by motion, worst in PM > AM Baclofen Coordination: unable to test LE's due to weakness Proprioception: unable to test LE's due to weakness BALANCE TESTS: SHORT Sitting Balance: 04/26/24 Supported: With PWC backrest support - dependent Unsupported Unsupported with Eyes Closed: Reach to ankles Reach to floor Reach laterally Posterior lean, return to midline LONG Sitting Balance: Not appropriate Supported: Unsupported Unsupported with Eyes Closed Reach to ankles Reach to floor Reach laterally Posterior lean, return to midline FUNCTIONAL MOBILITY: Mat Mobility: 04/26/24 Short sit to long sit totalA Long sit to supine totalA Supine Roll to R totalA Supine Roll to L totalA Supine to long sitting via retro UE depression: totalA Supine to long sit via modified c maneuver through half sidelying totalA Long sit to short sit: totalA Sidelying to prone: totalA Prone to sidelying totalA Transfer status: 04/26/24 Level surfaces Power emma lift 2 difference 4 difference 6 difference Car transfers Power van with rear ramp entrance Floor transfers: Gait: N/A -- patient is non-ambulatory at this time Wheelchair Mobility/Skills: 04/26/24 Level surface propulsion: Household Distances: PWC - dependent in loaner chair Once head array will need training Level surface propulsion: community distances (> 1000 ft) : Unlevel surfaces community propulsion: Ramp negotiation: Static wheelie: Forward progression in wheelie: Turning in wheelie: 2 curb: 4 curb: 6 curb: SCIM: Spinal Cord Independent Measure: *A test to measure level of impairment with respect to functional mobility for acute and chronic SCI (higher scores = less impairment and higher physical functioning) * using only the Mobility sub-section ; questions 9-17 (Total Sub Score is out of 40) Date: 04/26/24 Scores as follows: 8/28/25 Mobility in bed: 0 0 Transfers: bed<> wheelchair 0 0 Transfers: wheelchair <>toilet<> tub 0 0 Mobility: Indoors 0 0 Mobility for Moderate Distances (10-100 meters; 32-328 ft) 0 0 Mobility Outdoors: (> 328 ft) 0 0 Stair Management 0 0 Transfers: wheelchair <> car 0 0 Transfers: ground <> wheelchair 0 0 MOBILITY SUB SCORE = 0/40 0/40 BALANCE: dependent, may train in future PRN functional progression GAIT: nonambulatory Functional Mobility: defer, seen in wheelchair, emma lift INTERVENTIONS: *All interventions done with verbal instructions, verbal cues, demonstration, and tactile assistance to produce the desired movement Therapeutic Activity/WC management: *PT provided physical assistance and cuing stated below in order to facilitate correct and safe performance of functional activities. 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 TRIALS: Head array from initial [facility] / [place] [employer] vendor was trialed at home with vendor/tech and this was not appropriate and was a FAILED trial This was also trialed in clinic with vendor and PT and was a FAILED trial Complexity of head array, amplitude of motion required, dual directions of motion and maintained pressure required and amount of pressure required Head array trialed today in clinic with DREA Zamorano [employer] Vendor Eleazar [employer] Cate and secondary I-mobility Secondary head array today was a FAILED trial Due to neck stiffness, soreness, pain, decreased ROM, inability to maintain positions required, maintain pressure required and dual task between directions of movement / motion required Adjusted PWC positioning into and out of tilt Adjusted head array position Adjusted and decreased required pressure to minimum amount NEXT VISIT We will try the IDRIVE We will try the chin drive EQUIPMENT NEEDS AND JUSTIFICATION: REQUIRED: L arm trough with hand component ITEM: will document need at next visit CODE: will document need at next visit JUSTIFICATION: arm pads to facilitate optimal positioning of upper extremities and decreased pressure on upper extremities while in resting position, reducing risk of UE migration laterally or medially due to limited UE strength. Hardware required to interface pad with armrest and seating system and alter position appropriately for proper UE and trunk posture. REQUIRED: R arm guide / arm rest ITEM: will document need at next visit CODE: will document need at next visit JUSTIFICATION: will document need at next visit REQUIRED: Shower Chair: ITEM: CARMEN-AT Attendant Tilt Mobile Shower Commode Chair 16 CODE: [id number] JUSTIFICATION: bath chair required to accommodate caregiver-assisted bathing, grooming, and bowel program management in safe, efficient, and optimal position to reduce incidence of fall, pressure ulcer formation, with respect to pt body dimensions, functional mobility, and UE function. Additionally required to avoid damage to water-sensitive components of every-day power wheelchair which patient would necessarily utilize for bathing, and subsequent mechanical failure/need for avoidable repair or replacement to maintain MRADL independence in-home. LETTER OF MEDICAL NECESSITY: attached to this note Scheduled with OT at [facility] for RUE bracing options OT from [facility] to schedule with patient HOME EXERCISE PROGRAM: Access Code: [email or web address] URL: [email or web address] Date: 04/26/2024 Prepared by: Maxine Gu Exercises - Supine Hamstring Stretch with Caregiver - 1 x daily - 5-7 x weekly - 1 sets - 2 reps - 30-60 seconds hold - Supine Hip and Knee Flexion PROM with Caregiver - 1 x daily - 5-7 x weekly - 1 sets - 1-2 reps - 30-60 seconds hold - Hip Internal and External Rotation Caregiver PROM - 1 x daily - 5-7 x weekly - 1 sets - 2-3 reps - 30-60 seconds hold - Supine Hip Abduction PROM with Caregiver - 1 x daily - 5-7 x weekly - 1 sets - 2-3 reps - 30-60 seconds hold - Supine Soleus Stretch with Caregiver - 1 x daily - 5-7 x weekly - 1 sets - 2-3 reps - 30-60 seconds hold - Supine Gastroc Stretch with Caregiver - 1 x daily - 5-7 x weekly - 1 sets - 2-3 reps - 30-60 seconds hold - Foot Dorsiflexion PROM Caregiver - 1 x daily - 5-7 x weekly - 1 sets - 2-3 reps - 30-60 seconds hold - Sidelying Hip Extension PROM with Caregiver - 1 x daily - 5-7 x weekly - 1 sets - 2-3 reps - 30-60 seconds hold Access Code: [email or web address] URL: [email or web address] Date: 05/26/2024 Prepared by: Maxine Gu Exercises - Supine Chin Tuck - 1 x daily - 7 x weekly - 2 sets - 10 reps - Supine Cervical Rotation AROM on Pillow - 2 x daily - 7 x weekly - 2 sets - 10 reps - Supine Deep Neck Flexor Training - Repetitions - 2 x daily - 7 x weekly - 2 sets - 10 reps - Supine Isometric Neck Rotation - 2 x daily - 7 x weekly - 2 sets - 10 reps - Supine Isometric Neck Sidebend - 2 x daily - 7 x weekly - 2 sets - 10 reps - Supine Isometric Neck Flexion - 2 x daily - 7 x weekly - 2 sets - 10 reps - Supine Isometric Neck Extension - 2 x daily - 7 x weekly - 2 sets - 10 reps - Seated Shoulder Shrugs - 2 x daily - 7 x weekly - 2 sets - 10 reps - Seated Scapular Retraction - 2 x daily - 7 x weekly - 2 sets - 10 reps ADDED 07/19/24: - Seated Neck Sidebending with Band - 2 x daily - 7 x weekly - 2 sets - 10-15 reps - Seated Neck Flexion and Extension with Band - 2 x daily - 7 x weekly - 2 sets - 10-15 reps HEP: LE stretching - 30 min per day UE stretching - 15/20 min Cervical - HEP has not been performed much, educated on need, perform when tilting for pressure relief in PWC, green TB is issued for future progressions (has yellow and red) BP checks regularly from spouse New PWC able to use recline and tilt Discussed pressure relief - timers, every 30 min or less 5 degrees of recline and using tilt today Waiting for head array - Frank PT to train at home visit 12/29/24: head array unable to be used - needs clinic appointment I will set up with sandro and myself (PT) due to Wheelchair Clinic availability Patient Education: Role of PT, POC, scheduling, HEP ASSESSMENT: This date trials for patient independent driving failed. Head array unable to work with patient due to required sustained pressure, head movement and dual head motions required for independent dirinvg. Since IPR stay at [facility] significant neck pain, soreness, stiffness and continued declined strength and ROM even with HEP trained and issued with this PT in outpatient neuro setting for ROM and strength of the cervical spine. Will require further trials and wheelchair parts / equipment ordered at next visit. LUE with poor positioning and ill-fitting arm rest, RUE with poor positioning and ill-fitting arm rest, needs tetra OT clinic appointment for RUE bracing, and needs documentation for most appropriate shower chair. Next session will have further documentation, justification and descriptions. Problems: impairments of complete SCI injury including but not limited to LE strength, coordination, proprioception, functional mobility, functional strength, functional ambulation, functional posturing, use of power wheelchair, use of HEP for daily passive stretching with caregiver / spouse, sitting posture / stability / balance, decreased cervical ROM/flexibility/pain management PROBLEMS TO BE ADDRESSED: functional posturing (cervical ROM, strength, flexibility), addressing head array and PWC driving options with numotion, positioning in PWC, equipment needs; helping to acquire all necessary appointments Prognosis for therapy: Fair for goals - complexity of case, level of injury, family support PLAN OF CARE: Feed Grinder Goals (8-10 Visits) Pain - Patient will demonstrate improved postural control at head and neck without cueing in order to preserve function, and increase use of head array in safe manner with proper technique Patient centered goal: Assistance to obtain all ordered equipment, needed training in home, guidance for equipment / support Wheelchair management : (to achieve highest level of independence / accessibility in the community) Patient will be able to verbalize set up, positioning, and direct all care from wheelchair level at independence Wheelchair mobility: (to achieve highest level of independence at home and in the community setting) Patient will be able to demonstrate independent driving with use of head array in home and community settings, on level surfaces, up/down ramps and on carpeted surfaces NEXT SESSION: driving trials (2 types) Start Time: 12:45 PM Stop Time: 2:15 PM Total Treatment Minutes: 90 minutes Timed Code Treatments by Procedure: 45 theract minutes 45 WC management minutes Total Timed Code Treatment Minutes: 90 minutes Un-Timed Code Treatments by Procedure: --- Total Un-Timed Code Treatment Minutes: --- minutes Maxine Gu PT, DPT Board-Certified Clinical Specialist in Neurological Physical Therapy Outpatient Neurological Physical Therapist documented in this encounter [facility] 01-31-2025 History of Present illness Narrative PHYSICAL THERAPY OUTPATIENT NEUROLOGICAL NOTE Visit Number: 2 (previous bout 4) Referring Provider: Cristine Carpio MD Previous referral: Neelima Rockwell MD Diagnosis: Tetraplegia ([facility]ERLY [facility]) [G82.50] Previous diagnosis: Injury of cervical spinal cord, initial encounter ([facility]) [S14.109A] C4 complete (per notes) Onset Date: 2023 Mindi Hanson Trial Consultant: [email or web address] [phone] Precautions: micro-pacer (no stim above waist) Authorized visits: 14 Identification was verified by patient verbalizing his name and date of . Interpretor: non required Joey = Son = Kendall Payor: [employer] / Plan: [employer] MEDICAID HMO / Product Type: Medicaid HMO Identification was verified by patient verbalizing his name and date of . SUBJECTIVE: Presents with [id number] driving his PWC. [employer] vendor Eleazar is present with [employer] and I-mobility Vendor for head array trials. 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 Accompanied by Joey (spouse). Transportation: power van + rear entrance Patient Goals: obtain wheelchair, obtain info for in home tech / assistance, guidance for continued HEP / rehab Discussed Risks/Benefits of Therapy: Yes Hand Dominance: Right OBJECTIVE: *all per initial evaluation unless otherwise noted for re-evaluation purposes Patient Goals: obtain wheelchair, obtain info for in home tech / assistance, guidance for continued HEP / rehab Posture: ABNORMAL - forward head, - protracted, upper cervical extended, lower cervical is flexed, cervical flexors extended, cervical extenders shortened IMPROVED 08/18/24 12/29/24 Decreased cervical extension, unable to rest head at head rest, unable to utilize head array Skin integrity: Left 5th toe pressure wound from positioning Discussed PRAFO boots - contacting [facility] manager of case for adjustments / new ones due to wear down IMPROVED 08/18/24 Wound care today 12/29/24 - osteomyelitis - side of lateral foot, big toe Orthotic Checkout: Prevalon boots for nighttime Not using Elevating feet + hospital bed + pillows 12/29/24 4 band abdominal binder Yves jared bilateral PRAFO's x2 Not using Pressure sores on back of legs 12/29/24 Equipment Checkout: Wheelchair: 2024 Make/model: Permobil M3, Mid-wheel, head array Vendor: Tom Block, OT, [facility], [facility] [phone] Age of equipment: [birth year]24 Cushion Make: MICHAELLE Age of equipment: [birth year]24 Other: power-lift / emma-lift, hospital bed ([facility]) ordered a bed extension (denied by insurance), roll-in shower chair, [facility] order [facility] for [employer] + electro-bike PROM: Date: 04/26/24 12/29/24 Side: R/L R/L HIP hamstring SLR at 9/90 WFL WFL ANKLE DF 0/0 0/0 Cervical AROM: in degrees Date: 04/26/24 08/18/24 12/29/24 Pain? Flexion: 10 10 20 Y not anymore Extension: 30 30 30 Y not anymore R Rotation 30 40 30 Y not anymore L Rotation: 50 50 30 Y not anymore R Lateral Flexion: 20 20 20 Y not anymore L Lateral Flexion 10 10 10 Y not anymore STRENGTH: Manual Muscle Test: 5= normal Date: 12/23/24 8/27/25 Side: R/L R/L HIP flex 0 / 0 0/0 ext 0 / 0 0/0 abd 0 / 0 0/0 add 0 / 0 0/0 KNEE ext 0 / 0 0/0 flex 0 / 0 0/0 ANKLE DF 0 / 0 0/0 PF 0 / 0 0/0 INV 0 / 0 0/0 EV 0 / 0 0/0 Tone: Modified Leroy Scores for Spasticity: 0 = no increase in muscle tone 1 = Slight increase in muscle tone, manifested as a [id number] or by minimal resistance at the end of range of motion 1+ = Slight increase in muscle tone, manifested by a catch, followed by minimal resistance throughout the remainder (less than half) of the range of motion 2 = More marked increase in muscle tone through most of the range of motion, but the part affected is still able to be easily moved 3 = Considerable increase in muscle tone; passive involvement difficult 4 = Affected part is rigid Muscle group R L Hip flexors Hip ADDuctors Knee flexors Knee extensors Ankle Plantarflexors Ankle Inversion Ankle Eversion Spasms in the legs, triggered by motion, worst in PM > AM Baclofen Coordination: unable to test LE's due to weakness Proprioception: unable to test LE's due to weakness BALANCE TESTS: SHORT Sitting Balance: 04/26/24 Supported: With PWC backrest support - dependent Unsupported Unsupported with Eyes Closed: Reach to ankles Reach to floor Reach laterally Posterior lean, return to midline LONG Sitting Balance: Not appropriate Supported: Unsupported Unsupported with Eyes Closed Reach to ankles Reach to floor Reach laterally Posterior lean, return to midline FUNCTIONAL MOBILITY: Mat Mobility: 04/26/24 Short sit to long sit totalA Long sit to supine totalA Supine Roll to R totalA Supine Roll to L totalA Supine to long sitting via retro UE depression: totalA Supine to long sit via modified c maneuver through half sidelying totalA Long sit to short sit: totalA Sidelying to prone: totalA Prone to sidelying totalA Transfer status: 04/26/24 Level surfaces Power emma lift 2 difference 4 difference 6 difference Car transfers Power van with rear ramp entrance Floor transfers: Gait: N/A -- patient is non-ambulatory at this time Wheelchair Mobility/Skills: 04/26/24 Level surface propulsion: Household Distances: PWC - dependent in loaner chair Once head array will need training Level surface propulsion: community distances (> 1000 ft) : Unlevel surfaces community propulsion: Ramp negotiation: Static wheelie: Forward progression in wheelie: Turning in wheelie: 2 curb: 4 curb: 6 curb: SCIM: Spinal Cord Independent Measure: *A test to measure level of impairment with respect to functional mobility for acute and chronic SCI (higher scores = less impairment and higher physical functioning) * using only the Mobility sub-section ; questions 9-17 (Total Sub Score is out of 40) Date: 04/26/24 Scores as follows: 12/30/24 Mobility in bed: 0 0 Transfers: bed<> wheelchair 0 0 Transfers: wheelchair <>toilet<> tub 0 0 Mobility: Indoors 0 0 Mobility for Moderate Distances (10-100 meters; 32-328 ft) 0 0 Mobility Outdoors: (> 328 ft) 0 0 Stair Management 0 0 Transfers: wheelchair <> car 0 0 Transfers: ground <> wheelchair 0 0 MOBILITY SUB SCORE = 0/40 040 BALANCE: dependent, may train in future PRN functional progression GAIT: nonambulatory Functional Mobility: defer, seen in wheelchair, emma lift INTERVENTIONS: *All interventions done with verbal instructions, verbal cues, demonstration, and tactile assistance to produce the desired movement Therapeutic Activity/WC management: *PT provided physical assistance and cuing stated below in order to facilitate correct and safe performance of functional activities. 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 TRIALS: Head array from initial [facility] / [employer] vendor was trialed at home with vendor/tech and this was not appropriate and was a FAILED trial This was also trialed in clinic with vendor and PT and was a FAILED trial Complexity of head array, amplitude of motion required, dual directions of motion and maintained pressure required and amount of pressure required Head array trialed today in clinic with DREA Zamorano [employer] Vendor Eleazar [employer] Cate and secondary I-mobility Secondary head array today was a FAILED trial Due to neck stiffness, soreness, pain, decreased ROM, inability to maintain positions required, maintain pressure required and dual task between directions of movement / motion required Adjusted PWC positioning into and out of tilt Adjusted head array position Adjusted and decreased required pressure to minimum amount NEXT VISIT We will try the IDRIVE We will try the chin drive EQUIPMENT NEEDS AND JUSTIFICATION: REQUIRED: L arm trough with hand component ITEM: will document need at next visit CODE: will document need at next visit JUSTIFICATION: arm pads to facilitate optimal positioning of upper extremities and decreased pressure on upper extremities while in resting position, reducing risk of UE migration laterally or medially due to limited UE strength. Hardware required to interface pad with armrest and seating system and alter position appropriately for proper UE and trunk posture. REQUIRED: R arm guide / arm rest ITEM: will document need at next visit CODE: will document need at next visit JUSTIFICATION: will document need at next visit REQUIRED: Shower Chair: ITEM: CARMEN-AT Attendant Tilt Mobile Shower Commode Chair 16 CODE: [id number] JUSTIFICATION: bath chair required to accommodate caregiver-assisted bathing, grooming, and bowel program management in safe, efficient, and optimal position to reduce incidence of fall, pressure ulcer formation, with respect to pt body dimensions, functional mobility, and UE function. Additionally required to avoid damage to water-sensitive components of every-day power wheelchair which patient would necessarily utilize for bathing, and subsequent mechanical failure/need for avoidable repair or replacement to maintain MRADL independence in-home. LETTER OF MEDICAL NECESSITY: attached to this note Scheduled with OT at [facility] for RUE bracing options OT from [facility] to schedule with patient HOME EXERCISE PROGRAM: Access Code: [email or web address] URL: [email or web address] Date: 04/26/2024 Prepared by: Maxine Gu Exercises - Supine Hamstring Stretch with Caregiver - 1 x daily - 5-7 x weekly - 1 sets - 2 reps - 30-60 seconds hold - Supine Hip and Knee Flexion PROM with Caregiver - 1 x daily - 5-7 x weekly - 1 sets - 1-2 reps - 30-60 seconds hold - Hip Internal and External Rotation Caregiver PROM - 1 x daily - 5-7 x weekly - 1 sets - 2-3 reps - 30-60 seconds hold - Supine Hip Abduction PROM with Caregiver - 1 x daily - 5-7 x weekly - 1 sets - 2-3 reps - 30-60 seconds hold - Supine Soleus Stretch with Caregiver - 1 x daily - 5-7 x weekly - 1 sets - 2-3 reps - 30-60 seconds hold - Supine Gastroc Stretch with Caregiver - 1 x daily - 5-7 x weekly - 1 sets - 2-3 reps - 30-60 seconds hold - Foot Dorsiflexion PROM Caregiver - 1 x daily - 5-7 x weekly - 1 sets - 2-3 reps - 30-60 seconds hold - Sidelying Hip Extension PROM with Caregiver - 1 x daily - 5-7 x weekly - 1 sets - 2-3 reps - 30-60 seconds hold Access Code: [email or web address] URL: [email or web address] Date: 05/26/2024 Prepared by: Maxine Gu Exercises - Supine Chin Tuck - 1 x daily - 7 x weekly - 2 sets - 10 reps - Supine Cervical Rotation AROM on Pillow - 2 x daily - 7 x weekly - 2 sets - 10 reps - Supine Deep Neck Flexor Training - Repetitions - 2 x daily - 7 x weekly - 2 sets - 10 reps - Supine Isometric Neck Rotation - 2 x daily - 7 x weekly - 2 sets - 10 reps - Supine Isometric Neck Sidebend - 2 x daily - 7 x weekly - 2 sets - 10 reps - Supine Isometric Neck Flexion - 2 x daily - 7 x weekly - 2 sets - 10 reps - Supine Isometric Neck Extension - 2 x daily - 7 x weekly - 2 sets - 10 reps - Seated Shoulder Shrugs - 2 x daily - 7 x weekly - 2 sets - 10 reps - Seated Scapular Retraction - 2 x daily - 7 x weekly - 2 sets - 10 reps ADDED 07/19/24: - Seated Neck Sidebending with Band - 2 x daily - 7 x weekly - 2 sets - 10-15 reps - Seated Neck Flexion and Extension with Band - 2 x daily - 7 x weekly - 2 sets - 10-15 reps HEP: LE stretching - 30 min per day UE stretching - 15/20 min Cervical - HEP has not been performed much, educated on need, perform when tilting for pressure relief in PWC, green TB is issued for future progressions (has yellow and red) BP checks regularly from spouse New PWC able to use recline and tilt Discussed pressure relief - timers, every 30 min or less 5 degrees of recline and using tilt today Waiting for head array - David PT to train at home visit 12/29/24: head array unable to be used - needs WC clinic appointment I will set up with sandro and myself (PT) due to Wheelchair Clinic availability Patient Education: Role of PT, POC, scheduling, HEP ASSESSMENT: This date trials for patient independent driving failed. Head array unable to work with patient due to required sustained pressure, head movement and dual head motions required for independent dirinvg. Since IPR stay at [facility] significant neck pain, soreness, stiffness and continued declined strength and ROM even with HEP trained and issued with this PT in outpatient neuro setting for ROM and strength of the cervical spine. Will require further trials and wheelchair parts / equipment ordered at next visit. LUE with poor positioning and ill-fitting arm rest, RUE with poor positioning and ill-fitting arm rest, needs tetra OT clinic appointment for RUE bracing, and needs documentation for most appropriate shower chair. Next session will have further documentation, justification and descriptions. Problems: impairments of complete SCI injury including but not limited to LE strength, coordination, proprioception, functional mobility, functional strength, functional ambulation, functional posturing, use of power wheelchair, use of HEP for daily passive stretching with caregiver / spouse, sitting posture / stability / balance, decreased cervical ROM/flexibility/pain management PROBLEMS TO BE ADDRESSED: functional posturing (cervical ROM, strength, flexibility), addressing head array and PWC driving options with numotion, positioning in PWC, equipment needs; helping to acquire all necessary appointments Prognosis for therapy: Fair for goals - complexity of case, level of injury, family support PLAN OF CARE: Feed Grinder Goals (8-10 Visits) Pain - Patient will demonstrate improved postural control at head and neck without cueing in order to preserve function, and increase use of head array in safe manner with proper technique Patient centered goal: Assistance to obtain all ordered equipment, needed training in home, guidance for equipment / support Wheelchair management : (to achieve highest level of independence / accessibility in the community) Patient will be able to verbalize set up, positioning, and direct all care from wheelchair level at independence Wheelchair mobility: (to achieve highest level of independence at home and in the community setting) Patient will be able to demonstrate independent driving with use of head array in home and community settings, on level surfaces, up/down ramps and on carpeted surfaces NEXT SESSION: driving trials (2 types) Start Time: 12:45 PM Stop Time: 2:15 PM Total Treatment Minutes: 90 minutes Timed Code Treatments by Procedure: 45 theract minutes 45 WC management minutes Total Timed Code Treatment Minutes: 90 minutes Un-Timed Code Treatments by Procedure: --- Total Un-Timed Code Treatment Minutes: --- minutes Maxine Gu PT, DPT Board-Certified Clinical Specialist in Neurological Physical Therapy Outpatient Neurological Physical Therapist documented in this encounter [facility] 01-26-2025 Progress note Note Date/Time January 26, 2025 11:56am [facility] [address] [place] [id number] Progress Note - Wound Care 01/26/25 1148 MR#: [id number] Acct: [id number] Name: MAIDA POLANCO Rep #:[id number] : 1980 44 From: Les SORIANO PCP: Dr. Markel Bell MD Status:RE G RCR Location: History of Present Illness Date of Service: 01/26/25 Chief Complaint: Full-thickness wound, left foot History of Wound: Patient quadriplegic follows up for left plantar fifth MPJ ulceration which started as a pressure ulceration. Patient denies constitutional symptoms pain or any changes since previous visit. Progress of Wound: Stable full-thickness wound to the lateral left foot with amnion skin graft substitute. Improving well. Subjective Subjective Patient is a 44-year-old quadriplegic male presenting to clinic today follow-up evaluation of full-thickness wound to lateral aspect of the fifth metatarsal left foot with amniotic skin graft substitute. They have left the dressing clean dry and intact. There is no noticeable strikethrough. He has no pain to the left foot. Denies trauma. Denies constitutional symptoms. No other pedal complaints at this time. Objective Data Objective Data Vital Signs: Vital Signs Temp Pulse Resp BP O2 Del Method 96.4 F L 59 L 16 147/105 H Room Air 01/26/25 10:04 01/26/25 10:04 01/26/25 10:04 01/26/25 10:04 01/26/25 10:04 Oxygen Delivery Method Room Air Physical Exam Narrative Vascular: DP and PT pulses are palpable to left lower extremity. CFT is brisk. No erythema. Skin temperature is warm to cool from proximal ankle to distal digits to the left extremity. Neurological: Patient is quadriplegic and does not have light touch and does nothave protective sensation. Dermatological: Evidence of full-thickness wound to the lateral aspect of the fifth metatarsal head measuring 0.3 x 0.2 x 0.1 cm. Negative probe to bone. Excisional debridement down to including subcutaneous tissue with a number 5 mm dermal curette to the lateral fifth metatarsal head full-thickness wound left foot done without incident. Postdebridement measurement was sanguinous crust. postdebridement measurement is 0.3 x 0.2 x 0.1 cm. EpiFix 18 mm disc/graft was applied and 100% application to the full-thickness wound to the lateral left foot. 10th application. There was no concern for infection. Bolster dressing was applied followed by dry sterile dressing and compression wrap. Musculoskeletal:No pain to palpation of the full-thickness wound. No pain with calf pressure. Debridement Note Debridement Note Debridement Free Text: Excisional debridement down to including subcutaneous tissue with a number 5 mm dermal curette to the lateral fifth metatarsal head full-thickness wound left foot done without incident. Postdebridement measurement was sanguinous crust. postdebridement measurement is 0.3 x 0.2 x 0.1cm. EpiFix 18 mm disc/graft was applied and 100% application to the full-thickness wound to the lateral left foot. 10th application. There was no concern for infection. Bolster dressing was applied followed by dry sterile dressing and compression wrap. Post-Debridement Measurements and Additional Note: Post-Debridement Measurements/Treatment WC - Nurse 1 - General Ulcer Assessment Start: 01/05/25 13:23 Freq: Status: Active Protocol: FLORENTINEXT Activity Type Activity Date Activity User E-sign Co-sign Detail Recorded Client Recorded Date Recorded By Document 01/05/25 13:25 KW [id number] 01/05/25 13:34 KW Document 01/12/25 11:35 DL [id number] 01/12/25 11:45 DL Document 01/19/25 11:05 CP [id number] 01/19/25 11:12 CP Document 01/26/25 10:04 GM [id number] 01/26/25 10:22 GM 01/05/25 01/12/25 01/19/25 13:25 11:35 11:05 WC - Today's Visit Information Type of service Follow-up Visit Follow-up Visit Follow-up Visit (Physician/GRAPHIC EDITOR (Physician/GRAPHIC EDITOR (Physician/GRAPHIC EDITOR ) ) ) Arrival Mode Wheelchair Wheelchair Wheelchair Transfer Assistance None Accompanied by Patient Identification Verified (Name & Yes Yes Yes ) Patient Requires Transmission-Based No Precautions Vital Signs Temperature (97.8 F-99.1 F) 97.8 F 97.8 F 97.7 F L Temperature Source Temporal Temporal Temporal Pulse Rate (60-100) 57 L 55 L 59 L Pulse Location Monitor Monitor Monitor Respiratory Rate (12-18) 18 16 16 Respiratory rate source Observation Observation Observation Oxygen Delivery Method Room Air Blood Pressure (90/60-120/80) 149/90 H 121/64 H 136/84 H Blood Pressure Mean (mm Hg) 109 83 101 Source Monitor Monitor Monitor Position Semi-Fowlers Sitting Blood Pressure Location Left Arm Left Forearm History Since Last Visit- (Skip if this is Patient's initial visit) Have you changed medications since your No No No last visit? Any new allergies or adverse reactions No No No Had a fall/change in ADL's that may No No No increase risk of falls Signs or symptoms of abuse and/or No No No neglect since last visit Have you been in the hospital since your No No No last visit? Has dressing in place as prescribed Yes Yes Yes Has compression in place as prescribed Yes N/A N/A Has offloadiing in place as prescribed Yes Yes N/A Experienced any changes in pain level or No No management Left Footwear Surgical Shoe with pressure relief insole Right Footwear Regular Shoe Pain Scale: 0-10 Numeric Is Patient Pain Free? Yes Yes Yes 01/26/25 10:04 WC - Today's Visit Information Type of service Follow-up Visit (Physician/GRAPHIC EDITOR ) Arrival Mode Wheelchair Transfer Assistance None Accompanied by Patient Identification Verified (Name & Yes ) Patient Requires Transmission-Based No Precautions Vital Signs Temperature (97.8 F-99.1 F) 96.4 F L Temperature Source Temporal Pulse Rate (60-100) 59 L Pulse Location Monitor Respiratory Rate (12-18) 16 Respiratory rate source Observation Oxygen Delivery Method Room Air Blood Pressure (90/60-120/80) 147/105 H Blood Pressure Mean (mm Hg) 119 Source Monitor Position Sitting Blood Pressure Location Left Arm History Since Last Visit- (Skip if this is Patient's initial visit) Have you changed medications since your No last visit? Any new allergies or adverse reactions No Had a fall/change in ADL's that may No increase risk of falls Signs or symptoms of abuse and/or No neglect since last visit Have you been in the hospital since your No last visit? Has dressing in place as prescribed Yes Has compression in place as prescribed Yes Has offloadiing in place as prescribed Yes Experienced any changes in pain level or No management Left Footwear Regular Shoe Right Footwear Regular Shoe Pain Scale: 0-10 Numeric Is Patient Pain Free? Yes WC - Nurse 1 - General Ulcer Measurement Start: 01/05/25 13:23 Freq: Status: Active Protocol: Activity Type Activity Date Activity User E-sign Co-sign Detail Recorded Client Recorded Date Recorded By Document 01/05/25 13:25 KW [id number] 01/05/25 13:34 KW Document 01/12/25 11:35 DL [id number] 01/12/25 11:45 DL Document 01/19/25 11:05 CP [id number] 01/19/25 11:12 CP Document 01/26/25 10:04 GM [id number] 01/26/25 10:22 GM 01/05/25 01/12/25 01/19/25 13:25 11:35 11:05 Wound Center Nurse 1 #2 LT HALLUX -Current Size (cm) - Length 0.1 -Current Size (cm) - Width 0.1 -Current Size (cm) - Depth 0.1 -Total Square Cm 0.01 -Date of Last Picture (Recall this 01/05/25 field) -Exudate Amt None Present -Wound Margin Indistinct, Non -Visible -Granulation Amt None Present (0 %) -Necrosis Amt None Present (0 %) -Texture (Livier-wound Skin Appearance) Assessed -Moisture (Livier-wound Skin Appearance) Assessed -Color (Livier-wound Skin Appearance) Assessed -Temperature (Livier-wound Skin No Abnormality Appearance) (Pt Warm) -Tenderness on Palpation (Livier-wound No Skin Appearance) #1 lt lat foot -Current Size (cm) - Length 1 0.1 1 -Current Size (cm) - Width 1.7 0.1 1.5 -Current Size (cm) - Depth 0.1 0.1 0.1 -Total Square Cm 1.7 0.01 1.5 -Date of Last Picture (Recall this 01/05/25 field) -Photo Taken Yes -Epithelialization -Tunneling -Undermining/Tunneling No -Circular Undermining No -Exudate Amt Small Small Small -Exudate Type Serosanguineous Serosanguineous Sanguineous -Wound Margin Distinct, Distinct, Outline Outline Attached Attached -Granulation Amt None Present (0 Medium (34-66%) %) -Granulation Quality Red -Slough/Fibrin -Necrosis Amt Large (67-100%) Medium (34-66%) -Necrotic Tissue Type Eschar Adherent Slough -Structure Exposed N/A -Texture (Livier-wound Skin Appearance) Assessed Scarring No Abnormality -Moisture (Livier-wound Skin Appearance) Assessed No Abnormality No Abnormality -Color (Livier-wound Skin Appearance) Assessed No Abnormality No Abnormality -Temperature (Livier-wound Skin No Abnormality No Abnormality No Abnormality Appearance) (Pt Warm) (Pt Warm) (Pt Warm) -Tenderness on Palpation (Livier-wound No No No Skin Appearance) -Ulcer Cleansing Soap and Water Soap and Water Rinsed/ Irrigated with Saline -Foul Odor after Cleansing No No -Anesthetic Used 4% Lidocaine Solution -Wound Comment(s) scabbed 01/26/25 10:04 Wound Center Nurse 1 #2 LT HALLUX -Current Size (cm) - Length -Current Size (cm) - Width -Current Size (cm) - Depth -Total Square Cm -Date of Last Picture (Recall this field) -Exudate Amt -Wound Margin -Granulation Amt -Necrosis Amt -Texture (Livier-wound Skin Appearance) -Moisture (Livier-wound Skin Appearance) -Color (Livier-wound Skin Appearance) -Temperature (Livier-wound Skin Appearance) -Tenderness on Palpation (Livier-wound Skin Appearance) #1 lt lat foot -Current Size (cm) - Length 0.1 -Current Size (cm) - Width 0.1 -Current Size (cm) - Depth 0.1 -Total Square Cm 0.01 -Date of Last Picture (Recall this 01/26/25 field) -Photo Taken Yes -Epithelialization Large 67-100% -Tunneling No -Undermining/Tunneling No -Circular Undermining No -Exudate Amt Small -Exudate Type Sanguineous -Wound Margin Distinct, Outline Attached -Granulation Amt Large (67-100%) -Granulation Quality Three Way -Slough/Fibrin No -Necrosis Amt -Necrotic Tissue Type -Structure Exposed -Texture (Livier-wound Skin Appearance) Assessed -Moisture (Livier-wound Skin Appearance) Assessed -Color (Livier-wound Skin Appearance) Assessed -Temperature (Livier-wound Skin No Abnormality Appearance) (Pt Warm) -Tenderness on Palpation (Livier-wound No Skin Appearance) -Ulcer Cleansing Soap and Water -Foul Odor after Cleansing No -Anesthetic Used -Wound Comment(s) WC - Nurse 2 - General Ulcer CM Notes Start: 01/05/25 13:23 Freq: Status: Active Protocol: Activity Type Activity Date Activity User E-sign Co-sign Detail Recorded Client Recorded Date Recorded By Document 01/05/25 13:54 [id number] 01/05/25 13:56 Document 01/12/25 12:05 [id number] 01/12/25 12:11 Document 01/19/25 11:36 [id number] 01/19/25 11:39 Document 01/26/25 10:16 [id number] 01/26/25 10:17 01/05/25 01/12/25 01/19/25 13:54 12:05 11:36 Wound Center Nurse 2 #2 LT HALLUX -Correct Patient Yes -Correct Side, Site, Position No -Correct Procedure No -Procedure Performed No -Post Debridement (cm) - Length 0 -Post Debridement (cm) - Width 0 -Post Debridement (cm) - Depth 0 -Total Square (Post) (cm) 0 -Area of Debridement (cm) - Length 0 -Area of Debridement (cm) - Width 0 -Total Square (Area) (cm) 0 -Wound/Ulcer Outcome Healed- Epithelialized #1 lt lat foot -Time 13:54 12:05 11:36 -Correct Patient Yes Yes Yes -Correct Side, Site, Position Yes Yes Yes -Correct Procedure Yes Yes Yes -Procedure Performed Yes Yes Yes -Type of Procedure Debridement Debridement Debridement -Clinical Debridement Muscle / Fascia Muscle / Fascia Subcutaneous -Tissue Removed Muscle Muscle Subcutaneous -Post Debridement (cm) - Length 1.0 0.8 0.5 -Post Debridement (cm) - Width 0.7 0.7 0.3 -Post Debridement (cm) - Depth 0.7 0.4 0.4 -Total Square (Post) (cm) 0.70 0.56 0.15 -Area of Debridement (cm) - Length 1.0 0.8 0.5 -Area of Debridement (cm) - Width 0.7 0.7 0.3 -Total Square (Area) (cm) 0.70 0.56 0.15 -Tunneling No No No -Undermining/Tunneling No No No -Circular Undermining No No No -Wound/Ulcer Outcome Not Healed Not Healed Not Healed -Ulcer Cleansing Rinsed/ Rinsed/ Rinsed/ Irrigated with Irrigated with Irrigated with Saline Saline Saline -Foul Odor after Cleansing No No No -Bioengineered Tissue Yes Yes Yes -Type of Bioengineered Tissue Epicord Epifix 18mm Epifix 18mm Disc Disc -Expiration Date 07/03/29 09/02/29 09/02/29 -Product Lot Number [id number] -Percent Used 100 100 100 -Lot number of Saline Used [id number] -Bleeding Controlled with Pressure Pressure Pressure -Treatment Response Procedure Procedure Procedure Tolerated Well Tolerated Well Tolerated Well -Offloading Yes Yes Yes -Type of Offloading Surgical Shoe Surgical Shoe Surgical Shoe -Pressure Reduction Wheelchair Wheelchair cushion cushion -Debridement - Subq, 1st 20sq cm No -Debridement - Muscle / Fascia, 1st No No 20sq cm -Apply Skin Sub - 1st 25 sq cm - Feet 1 1 1 -Epicord Application 1-4 (per sq cm) 6 -Epifix 18mm Disc Application 1-4 3 3 Pain Scale: 0-10 Numeric Is Patient Pain Free? Yes Yes Yes 01/26/25 10:16 Wound Center Nurse 2 #2 LT HALLUX -Correct Patient -Correct Side, Site, Position -Correct Procedure -Procedure Performed -Post Debridement (cm) - Length -Post Debridement (cm) - Width -Post Debridement (cm) - Depth -Total Square (Post) (cm) -Area of Debridement (cm) - Length -Area of Debridement (cm) - Width -Total Square (Area) (cm) -Wound/Ulcer Outcome #1 lt lat foot -Time 10:16 -Correct Patient Yes -Correct Side, Site, Position Yes -Correct Procedure Yes -Procedure Performed Yes -Type of Procedure Debridement -Clinical Debridement Subcutaneous -Tissue Removed Subcutaneous -Post Debridement (cm) - Length 0.3 -Post Debridement (cm) - Width 0.2 -Post Debridement (cm) - Depth 0.1 -Total Square (Post) (cm) 0.06 -Area of Debridement (cm) - Length 0.3 -Area of Debridement (cm) - Width 0.2 -Total Square (Area) (cm) 0.06 -Tunneling No -Undermining/Tunneling No -Circular Undermining No -Wound/Ulcer Outcome Not Healed -Ulcer Cleansing Rinsed/ Irrigated with Saline -Foul Odor after Cleansing No -Bioengineered Tissue Yes -Type of Bioengineered Tissue Epifix 18mm Disc -Expiration Date 09/02/29 -Product Lot Number [id number] -Percent Used 100 -Lot number of Saline Used [id number] -Bleeding Controlled with Pressure -Treatment Response Procedure Tolerated Well -Offloading Yes -Type of Offloading Surgical Shoe -Pressure Reduction -Debridement - Subq, 1st 20sq cm No -Debridement - Muscle / Fascia, 1st 20sq cm -Apply Skin Sub - 1st 25 sq cm - Feet 1 -Epicord Application 1-4 (per sq cm) -Epifix 18mm Disc Application 1-4 3 Pain Scale: 0-10 Numeric Is Patient Pain Free? Yes WC - Nurse 3 - General Ulcer D/C NN Start: 01/05/25 13:23 Freq: Status: Active Protocol: Activity Type Activity Date Activity User E-sign Co-sign Detail Recorded Client Recorded Date Recorded By Document 01/05/25 14:11 [facility] [id number] 01/05/25 14:11 [facility] Document 01/12/25 12:26 [id number] 01/12/25 12:26 Document 01/19/25 11:45 [id number] 01/19/25 11:48 GM Document 01/26/25 10:17 [id number] 01/26/25 10:18 01/05/25 01/12/25 01/19/25 14:11 12:26 11:45 Wound Care Center Nurse 3 #1 lt lat foot -Ulcer Cleansing Not Cleansed Not Cleansed -Foul Odor after Cleansing No No -Primary Dressing Applied Silicone Border Foam 4x4 -Other Dressing epicord -Primary Dressing Covered/Secured with Dry Gauze & Dry Gauze,Dry Roll Gauze, Gauze & Roll Secured with Gauze,Secured Tape with Tape -Other Covering abd -Silicone Border Foam 4x4 1 LLE -Lotion applied to leg before No compression wrap -Compression Wrap Reena Wrap -Tubular Bandage Single Layer -Size of Tubigrip Used Size E -Size E ($) 1 -Other to secure Treatment Response Procedure Tolerated Well Pain Scale: 0-10 Numeric Is Patient Pain Free? Yes Yes Yes WC - Visit Discharge Discharge Condition Stable Stable Stable Ambulatory Status Wheelchair Wheelchair Wheelchair Transportation Private Auto Private Auto Private Auto Accompanied by Medication Reconcilliation completed & provided to patient/care provider Clinical Summary of Care Provided 01/26/25 10:17 Wound Care Center Nurse 3 #1 lt lat foot -Ulcer Cleansing Rinsed/ Irrigated with Saline -Foul Odor after Cleansing No -Primary Dressing Applied Silicone Border Foam 4x4 -Other Dressing -Primary Dressing Covered/Secured with -Other Covering -Silicone Border Foam 4x4 1 LLE -Lotion applied to leg before compression wrap -Compression Wrap -Tubular Bandage -Size of Tubigrip Used -Size E ($) -Other Treatment Response Pain Scale: 0-10 Numeric Is Patient Pain Free? Yes WC - Visit Discharge Discharge Condition Stable Ambulatory Status Wheelchair Transportation Private Auto Accompanied by Medication Reconcilliation completed & Yes provided to patient/care provider Clinical Summary of Care Provided Yes Assessment/Plan Assessment/Plan (1) Non-pressure chronic ulcer of other part of left foot with necrosis of muscle: CODE(S): L97.523 - Non-pressure chronic ulcer of other part of left foot with necrosis of muscle PLAN: Patient was examined and evaluated. All findings were discussed with the patient. All questions were answered to the patient's satisfaction. Excisional debridement down to including subcutaneous tissue with a number 5 mm dermal curette to the lateral fifth metatarsal head full-thickness wound left foot done without incident. Postdebridement measurement was sanguinous crust. postdebridement measurement is 0.3 x 0.2 x 0.1 cm. EpiFix 18 mm disc/graft was applied and 100% application to the full-thickness wound to the lateral left foot. 10th application. There was no concern for infection. Bolster dressing was applied followed by dry sterile dressing and compression wrap. Patient was instructed to leave the dressing clean dry and intact. Offload especially when his wheelchair. Patient will follow-up with Dr. Shaikh in 1 weeks. (2) Other hereditary and idiopathic neuropathies: CODE(S): G60.8 - Other hereditary and idiopathic neuropathies 01/26/25 1156 <Electronically signed by Les Shaikh DPMychal> Cosigner Signature (if applicable): CC: ~ Signed [facility] Work Phone: [phone] Progress note [facility] [address] [place] [id number] Progress Note - Wound Care 01/26/25 1148 MR#: [id number] Acct: [id number] Name: MAIDA POLANCO Rep #:[id number] : 1980 44 From: Les SORIANO PCP: Dr. Markel Bell MD Status:RE G R Location: History of Present Illness Date of Service: 01/26/25 Chief Complaint: Full-thickness wound, left foot History of Wound: Patient quadriplegic follows up for left plantar fifth MPJ ulceration which started as a pressure ulceration. Patient denies constitutional symptoms pain or any changes since previous visit. Progress of Wound: Stable full-thickness wound to the lateral left foot with amnion skin graft substitute. Improving well. Subjective Subjective Patient is a 44-year-old quadriplegic male presenting to clinic today follow-up evaluation of full-thickness wound to lateral aspect of the fifth metatarsal left foot with amniotic skin graft substitute. They have left the dressing clean dry and intact. There is no noticeable strikethrough. He has no pain to the left foot. Denies trauma. Denies constitutional symptoms. No other pedal complaints at this time. Objective Data Objective Data Vital Signs: Vital Signs Temp Pulse Resp BP O2 Del Method 96.4 F L 59 L 16 147/105 H Room Air 01/26/25 10:04 01/26/25 10:04 01/26/25 10:04 01/26/25 10:04 01/26/25 10:04 Oxygen Delivery Method Room Air Physical Exam Narrative Vascular: DP and PT pulses are palpable to left lower extremity. CFT is brisk. No erythema. Skin temperature is warm to cool from proximal ankle to distal digits to the left extremity. Neurological: Patient is quadriplegic and does not have light touch and does nothave protective sensation. Dermatological: Evidence of full-thickness wound to the lateral aspect of the fifth metatarsal headmeasuring 0.3 x 0.2 x 0.1 cm. Negative probe to bone. Excisional debridement down to including subcutaneous tissue with a number 5 mm dermal curette to the lateral fifth metatarsal head full-thickness wound left foot done without incident. Postdebridement measurement was sanguinous crust. postdebridement measurement is 0.3 x 0.2 x 0.1 cm. EpiFix 18 mm disc/graft was applied and 100% application to the full-thickness wound to the lateralleft foot. 10th application. There was no concern for infection. Bolster dressing was applied followed by dry sterile dressing and compression wrap. Musculoskeletal:No pain to palpation of the full-thickness wound. No pain with calf pressure. Debridement Note Debridement Note Debridement Free Text: Excisional debridement down to including subcutaneous tissue with a number 5mm dermal curette to the lateral fifth metatarsal head full-thickness wound left foot done without incident. Postdebridement measurement was sanguinous crust. postdebridement measurement is 0.3 x 0.2x 0.1cm. EpiFix 18 mm disc/graft was applied and 100% application to the full-thickness wound to the lateralleft foot. 10th application. There was no concern for infection. Bolster dressing was applied followed by dry sterile dressing and compression wrap. Post-Debridement Measurements and Additional Note: Post-Debridement Measurements/Treatment WC - Nurse 1 - General Ulcer Assessment Start: 01/05/25 13:23 Freq: Status: Active Protocol: SUMEETT Activity Type Activity Date Activity User E-sign Co-sign Detail Recorded Client Recorded Date Recorded By Document 01/05/25 13:25 KW [id number] 01/05/25 13:34 KW Document 01/12/25 11:35 DL [id number] 01/12/25 11:45 DL Document 01/19/25 11:05 CP [id number] 01/19/25 11:12 CP Document 01/26/25 10:04 GM [id number] 01/26/25 10:22 GM 01/05/25 01/12/25 01/19/25 13:25 11:35 11:05 WC - Today's Visit Information Type of service Follow-up Visit Follow-up Visit Follow-up Visit (Physician/GRAPHIC EDITOR (Physician/GRAPHIC EDITOR (Physician/GRAPHIC EDITOR ) ) ) Arrival Mode Wheelchair Wheelchair Wheelchair Transfer Assistance None Accompanied by Patient Identification Verified (Name & Yes Yes Yes ) Patient Requires Transmission-Based No Precautions Vital Signs Temperature (97.8 F-99.1 F) 97.8 F 97.8 F 97.7 F L Temperature Source Temporal Temporal Temporal Pulse Rate (60-100) 57 L 55 L 59 L Pulse Location Monitor Monitor Monitor Respiratory Rate (12-18) 18 16 16 Respiratory rate source Observation Observation Observation Oxygen Delivery Method Room Air Blood Pressure (90/60-120/80) 149/90 H 121/64 H 136/84 H Blood Pressure Mean (mm Hg) 109 83 101 Source Monitor Monitor Monitor Position Semi-Fowlers Sitting Blood Pressure Location Left Arm Left Forearm History Since Last Visit- (Skip if this is Patient's initial visit) Have you changed medications since your No No No last visit? Any new allergies or adverse reactions No No No Had a fall/change in ADL's that may No No No increase risk of falls Signs or symptoms of abuse and/or No No No neglect since last visit Have you been in the hospital since your No No No last visit? Has dressing in place as prescribed Yes Yes Yes Has compression in place as prescribed Yes N/A N/A Has offloadiing in place as prescribed Yes Yes N/A Experienced any changes in pain level or No No management Left Footwear Surgical Shoe with pressure relief insole Right Footwear Regular Shoe Pain Scale: 0-10 Numeric Is Patient Pain Free? Yes Yes Yes 01/26/25 10:04 WC - Today's Visit Information Type of service Follow-up Visit (Physician/GRAPHIC EDITOR ) Arrival Mode Wheelchair Transfer Assistance None Accompanied by Patient Identification Verified (Name & Yes ) Patient Requires Transmission-Based No Precautions Vital Signs Temperature (97.8 F-99.1 F) 96.4 F L Temperature Source Temporal Pulse Rate (60-100) 59 L Pulse Location Monitor Respiratory Rate (12-18) 16 Respiratory rate source Observation Oxygen Delivery Method Room Air Blood Pressure (90/60-120/80) 147/105 H Blood Pressure Mean (mm Hg) 119 Source Monitor Position Sitting Blood Pressure Location Left Arm History Since Last Visit- (Skip if this is Patient's initial visit) Have you changed medications since your No last visit? Any new allergies or adverse reactions No Had a fall/change in ADL's that may No increase risk of falls Signs or symptoms of abuse and/or No neglect since last visit Have you been in the hospital since your No last visit? Has dressing in place as prescribed Yes Has compression in place as prescribed Yes Has offloadiing in place as prescribed Yes Experienced any changes in pain level or No management Left Footwear Regular Shoe Right Footwear Regular Shoe Pain Scale: 0-10 Numeric Is Patient Pain Free? Yes WC - Nurse 1 - General Ulcer Measurement Start: 01/05/25 13:23 Freq: Status: Active Protocol: Activity Type Activity Date Activity User E-sign Co-sign Detail Recorded Client Recorded Date Recorded By Document 01/05/25 13:25 KW [id number] 01/05/25 13:34 KW Document 01/12/25 11:35 DL [id number] 01/12/25 11:45 DL Document 01/19/25 11:05 CP [id number] 01/19/25 11:12 CP Document 01/26/25 10:04 GM [id number] 01/26/25 10:22 GM 01/05/25 01/12/25 01/19/25 13:25 11:35 11:05 Wound Center Nurse 1 #2 LT HALLUX -Current Size (cm) - Length 0.1 -Current Size (cm) - Width 0.1 -Current Size (cm) - Depth 0.1 -Total Square Cm 0.01 -Date of Last Picture (Recall this 01/05/25 field) -Exudate Amt None Present -Wound Margin Indistinct, Non -Visible -Granulation Amt None Present (0 %) -Necrosis Amt None Present (0 %) -Texture (Livier-wound Skin Appearance) Assessed -Moisture (Livier-wound Skin Appearance) Assessed -Color (Liveir-wound Skin Appearance) Assessed -Temperature (Livier-wound Skin No Abnormality Appearance) (Pt Warm) -Tenderness on Palpation (Livier-wound No Skin Appearance) #1 lt lat foot -Current Size (cm) - Length 1 0.1 1 -Current Size (cm) - Width 1.7 0.1 1.5 -Current Size (cm) - Depth 0.1 0.1 0.1 -Total Square Cm 1.7 0.01 1.5 -Date of Last Picture (Recall this 01/05/25 field) -Photo Taken Yes -Epithelialization -Tunneling -Undermining/Tunneling No -Circular Undermining No -Exudate Amt Small Small Small -Exudate Type Serosanguineous Serosanguineous Sanguineous -Wound Margin Distinct, Distinct, Outline Outline Attached Attached -Granulation Amt None Present (0 Medium (34-66%) %) -Granulation Quality Red -Slough/Fibrin -Necrosis Amt Large (67-100%) Medium (34-66%) -Necrotic Tissue Type Eschar Adherent Slough -Structure Exposed N/A -Texture (Livier-wound Skin Appearance) Assessed Scarring No Abnormality -Moisture (Livier-wound Skin Appearance) Assessed No Abnormality No Abnormality -Color (Livier-wound Skin Appearance) Assessed No Abnormality No Abnormality -Temperature (Livier-wound Skin No Abnormality No Abnormality No Abnormality Appearance) (Pt Warm) (Pt Warm) (Pt Warm) -Tenderness on Palpation (Livier-wound No No No Skin Appearance) -Ulcer Cleansing Soap and Water Soap and Water Rinsed/ Irrigated with Saline -Foul Odor after Cleansing No No -Anesthetic Used 4% Lidocaine Solution -Wound Comment(s) scabbed 01/26/25 10:04 Wound Center Nurse 1 #2 LT HALLUX -Current Size (cm) - Length -Current Size (cm) - Width -Current Size (cm) - Depth -Total Square Cm -Date of Last Picture (Recall this field) -Exudate Amt -Wound Margin -Granulation Amt -Necrosis Amt -Texture (Livier-wound Skin Appearance) -Moisture (Livier-wound Skin Appearance) -Color (Livier-wound Skin Appearance) -Temperature (Livier-wound Skin Appearance) -Tenderness on Palpation (Livier-wound Skin Appearance) #1 lt lat foot -Current Size (cm) - Length 0.1 -Current Size (cm) - Width 0.1 -Current Size (cm) - Depth 0.1 -Total Square Cm 0.01 -Date of Last Picture (Recall this 01/26/25 field) -Photo Taken Yes -Epithelialization Large 67-100% -Tunneling No -Undermining/Tunneling No -Circular Undermining No -Exudate Amt Small -Exudate Type Sanguineous -Wound Margin Distinct, Outline Attached -Granulation Amt Large (67-100%) -Granulation Quality Three Way -Slough/Fibrin No -Necrosis Amt -Necrotic Tissue Type -Structure Exposed -Texture (Livier-wound Skin Appearance) Assessed -Moisture (Livier-wound Skin Appearance) Assessed -Color (Livier-wound Skin Appearance) Assessed -Temperature (Livier-wound Skin No Abnormality Appearance) (Pt Warm) -Tenderness on Palpation (Livier-wound No Skin Appearance) -Ulcer Cleansing Soap and Water -Foul Odor after Cleansing No -Anesthetic Used -Wound Comment(s) WC - Nurse 2 - General Ulcer CM Notes Start: 01/05/25 13:23 Freq: Status: Active Protocol: Activity Type Activity Date Activity User E-sign Co-sign Detail Recorded Client Recorded Date Recorded By Document 01/05/25 13:54 [id number] 01/05/25 13:56 Document 01/12/25 12:05 [id number] 01/12/25 12:11 Document 01/19/25 11:36 [id number] 01/19/25 11:39 Document 01/26/25 10:16 [id number] 01/26/25 10:17 01/05/25 01/12/25 01/19/25 13:54 12:05 11:36 Wound Center Nurse 2 #2 LT HALLUX -Correct Patient Yes -Correct Side, Site, Position No -Correct Procedure No -Procedure Performed No -Post Debridement (cm) - Length 0 -Post Debridement (cm) - Width 0 -Post Debridement (cm) - Depth 0 -Total Square (Post) (cm) 0 -Area of Debridement (cm) - Length 0 -Area of Debridement (cm) - Width 0 -Total Square (Area) (cm) 0 -Wound/Ulcer Outcome Healed- Epithelialized #1 lt lat foot -Time 13:54 12:05 11:36 -Correct Patient Yes Yes Yes -Correct Side, Site, Position Yes Yes Yes -Correct Procedure Yes Yes Yes -Procedure Performed Yes Yes Yes -Type of Procedure Debridement Debridement Debridement -Clinical Debridement Muscle / Fascia Muscle / Fascia Subcutaneous -Tissue Removed Muscle Muscle Subcutaneous -Post Debridement (cm) - Length 1.0 0.8 0.5 -Post Debridement (cm) - Width 0.7 0.7 0.3 -Post Debridement (cm) - Depth 0.7 0.4 0.4 -Total Square (Post) (cm) 0.70 0.56 0.15 -Area of Debridement (cm) - Length 1.0 0.8 0.5 -Area of Debridement (cm) - Width 0.7 0.7 0.3 -Total Square (Area) (cm) 0.70 0.56 0.15 -Tunneling No No No -Undermining/Tunneling No No No -Circular Undermining No No No -Wound/Ulcer Outcome Not Healed Not Healed Not Healed -Ulcer Cleansing Rinsed/ Rinsed/ Rinsed/ Irrigated with Irrigated with Irrigated with Saline Saline Saline -Foul Odor after Cleansing No No No -Bioengineered Tissue Yes Yes Yes -Type of Bioengineered Tissue Epicord Epifix 18mm Epifix 18mm Disc Disc -Expiration Date 07/03/29 09/02/29 09/02/29 -Product Lot Number [id number] -Percent Used 100 100 100 -Lot number of Saline Used [id number] -Bleeding Controlled with Pressure Pressure Pressure -Treatment Response Procedure Procedure Procedure Tolerated Well Tolerated Well Tolerated Well -Offloading Yes Yes Yes -Type of Offloading Surgical Shoe Surgical Shoe Surgical Shoe -Pressure Reduction Wheelchair Wheelchair cushion cushion -Debridement - Subq, 1st 20sq cm No -Debridement - Muscle / Fascia, 1st No No 20sq cm -Apply Skin Sub - 1st 25 sq cm - Feet 1 1 1 -Epicord Application 1-4 (per sq cm) 6 -Epifix 18mm Disc Application 1-4 3 3 Pain Scale: 0-10 Numeric Is Patient Pain Free? Yes Yes Yes 01/26/25 10:16 Wound Center Nurse 2 #2 LT HALLUX -Correct Patient -Correct Side, Site, Position -Correct Procedure -Procedure Performed -Post Debridement (cm) - Length -Post Debridement (cm) - Width -Post Debridement (cm) - Depth -Total Square (Post) (cm) -Area of Debridement (cm) - Length -Area of Debridement (cm) - Width -Total Square (Area) (cm) -Wound/Ulcer Outcome #1 lt lat foot -Time 10:16 -Correct Patient Yes -Correct Side, Site, Position Yes -Correct Procedure Yes -Procedure Performed Yes -Type of Procedure Debridement -Clinical Debridement Subcutaneous -Tissue Removed Subcutaneous -Post Debridement (cm) - Length 0.3 -Post Debridement (cm) - Width 0.2 -Post Debridement (cm) - Depth 0.1 -Total Square (Post) (cm) 0.06 -Area of Debridement (cm) - Length 0.3 -Area of Debridement (cm) - Width 0.2 -Total Square (Area) (cm) 0.06 -Tunneling No -Undermining/Tunneling No -Circular Undermining No -Wound/Ulcer Outcome Not Healed -Ulcer Cleansing Rinsed/ Irrigated with Saline -Foul Odor after Cleansing No -Bioengineered Tissue Yes -Type of Bioengineered Tissue Epifix 18mm Disc -Expiration Date 09/02/29 -Product Lot Number [id number] -Percent Used 100 -Lot number of Saline Used [id number] -Bleeding Controlled with Pressure -Treatment Response Procedure Tolerated Well -Offloading Yes -Type of Offloading Surgical Shoe -Pressure Reduction -Debridement - Subq, 1st 20sq cm No -Debridement - Muscle / Fascia, 1st 20sq cm -Apply Skin Sub - 1st 25 sq cm - Feet 1 -Epicord Application 1-4 (per sq cm) -Epifix 18mm Disc Application 1-4 3 Pain Scale: 0-10 Numeric Is Patient Pain Free? Yes WC - Nurse 3 - General Ulcer D/C NN Start: 01/05/25 13:23 Freq: Status: Active Protocol: Activity Type Activity Date Activity User E-sign Co-sign Detail Recorded Client Recorded Date Recorded By Document 01/05/25 14:11 [facility] [id number] 01/05/25 14:11 [facility] Document 01/12/25 12:26 [id number] 01/12/25 12:26 Document 01/19/25 11:45 [id number] 01/19/25 11:48 GM Document 01/26/25 10:17 [id number] 01/26/25 10:18 01/05/25 01/12/25 01/19/25 14:11 12:26 11:45 Wound Care Center Nurse 3 #1 lt lat foot -Ulcer Cleansing Not Cleansed Not Cleansed -Foul Odor after Cleansing No No -Primary Dressing Applied Silicone Border Foam 4x4 -Other Dressing epicord -Primary Dressing Covered/Secured with Dry Gauze & Dry Gauze,Dry Roll Gauze, Gauze & Roll Secured with Gauze,Secured Tape with Tape -Other Covering abd -Silicone Border Foam 4x4 1 LLE -Lotion applied to leg before No compression wrap -Compression Wrap Reena Wrap -Tubular Bandage Single Layer -Size of Tubigrip Used Size E -Size E ($) 1 -Other to secure Treatment Response Procedure Tolerated Well Pain Scale: 0-10 Numeric Is Patient Pain Free? Yes Yes Yes WC - Visit Discharge Discharge Condition Stable Stable Stable Ambulatory Status Wheelchair Wheelchair Wheelchair Transportation Private Auto Private Auto Private Auto Accompanied by Medication Reconcilliation completed & provided to patient/care provider Clinical Summary of Care Provided 01/26/25 10:17 Wound Care Center Nurse 3 #1 lt lat foot -Ulcer Cleansing Rinsed/ Irrigated with Saline -Foul Odor after Cleansing No -Primary Dressing Applied Silicone Border Foam 4x4 -Other Dressing -Primary Dressing Covered/Secured with -Other Covering -Silicone Border Foam 4x4 1 LLE -Lotion applied to leg before compression wrap -Compression Wrap -Tubular Bandage -Size of Tubigrip Used -Size E ($) -Other Treatment Response Pain Scale: 0-10 Numeric Is Patient Pain Free? Yes WC - Visit Discharge Discharge Condition Stable Ambulatory Status Wheelchair Transportation Private Auto Accompanied by Medication Reconcilliation completed & Yes provided to patient/care provider Clinical Summary of Care Provided Yes Assessment/Plan Assessment/Plan (1) Non-pressure chronic ulcer of other part of left foot with necrosis of muscle: CODE(S): L97.523 - Non-pressure chronic ulcer of other part of left foot with necrosis of muscle PLAN: Patient was examined and evaluated. All findings were discussed with the patient. All questions were answered to the patient's satisfaction. Excisional debridement down to including subcutaneous tissue with a number 5 mm dermal curette to the lateral fifth metatarsal head full-thickness wound left foot done without incident. Postdebridement measurement was sanguinous crust. postdebridement measurement is 0.3 x 0.2 x 0.1 cm. EpiFix 18 mm disc/graft was applied and 100% application to the full-thickness wound to the lateralleft foot. 10th application. There was no concern for infection. Bolster dressing was applied followed by dry sterile dressing and compression wrap. Patient was instructed to leave the dressing clean dry and intact. Offload especially when his wheelchair. Patient will follow-up with Dr. Shaikh in 1 weeks. (2) Other hereditary and idiopathic neuropathies: CODE(S): G60.8 - Other hereditary and idiopathic neuropathies 01/26/25 1156 Cosigner Signature (if applicable): CC: ~ Signed [facility]09-18-2025 History of Present illness Narrative* Filomena Belle - 01/20/2025 1:06 PM EDT See attatched Device report for 01.12.25 documented in this [id number] Progress note Author Les Shaikh [facility] Note Date/Time January 19, 2025 12:57pm [facility] [address] [place] [address] Progress Note - Wound Care 01/19/25 1256 MR#: [id number] Acct: [id number] Name: MAIDA POLANCO Rep #:[id number] : 1980 44 From: Les Richardson PM PCP: Dr. Markel Bell MD Status:RE G RCR Location: History of Present Illness Date of Service: 01/19/25 Chief Complaint: Full-thickness wound, left foot History of Wound: Patient quadriplegic follows up for left plantar fifth MPJ ulceration which started as a pressure ulceration. Patient denies constitutional symptoms pain or any changes since previous visit. Progress of Wound: Stable full-thickness wound to the lateral left foot with amnion skin graft substitute. Improving well. Subjective Subjective Patient is a 44-year-old paraplegic male presenting to wound care center today for follow-up evaluation of full-thickness wound to the lateral fifth metatarsalhead of the left foot. He has left the skin graft substitute clean dry and intact. He has increased his protein intake and drinking Tommy as discussed. He has no pain to the left lower extremity. He denies trauma. Denies constitutional symptoms. No other pedal complaints at this time. Objective Data Objective Data Vital Signs: Vital Signs Temp Pulse Resp BP O2 Del Method 97.7 F L 59 L 16 136/84 H Room Air 01/19/25 11:05 01/19/25 11:05 01/19/25 11:05 01/19/25 11:05 01/05/25 13:25 Oxygen Delivery Method Room Air Physical Exam Narrative Vascular: DP and PT pulses are palpable to left lower extremity. CFT is brisk. No erythema. Skin temperature is warm to cool from proximal ankle to distal digits to the left extremity. Neurological: Patient is quadriplegic and does not have light touch and does nothave protective sensation. Dermatological: Evidence of full-thickness wound to the lateral aspect of the fifth metatarsal head measuring 0.5 x 0.3 x 0.4 cm negative probe to bone. Excisional debridement down to including subcutaneous tissue, muscle, fascia with a number 5 mm dermal curette to the lateral fifth metatarsal head full-thickness wound left foot done without incident. Postdebridement measurement was sanguinous crust postdebridement measurement is 0.5 x 0.3 x 0.4 cm. EpiFix 18 mm disc/graft was applied and 100% application to the full-thickness wound to the lateral left foot. Eighth application. There was no concern for infection. Bolster dressing was applied followed by dry sterile dressing and compression wrap. Musculoskeletal:No pain to palpation of the full-thickness wound. No pain with calf pressure. Debridement Note Debridement Note Debridement Free Text: Excisional debridement down to including subcutaneous tissue, muscle, fascia with a number 5 mm dermal curette to the lateral fifth metatarsal head full-thickness wound left foot done without incident. Postdebridement measurement was sanguinous crust postdebridement measurement is 0.5 x 0.3 x 0.4 cm. EpiFix 18 mm disc/graft was applied and 100% application to the full-thickness wound to the lateral left foot. Eighth application. There was no concern for infection. Bolster dressing was applied followed by dry sterile dressing and compression wrap. Post-Debridement Measurements and Additional Note: Post-Debridement Measurements/Treatment - Nurse 1 - General Ulcer Assessment Start: 01/05/25 13:23 Freq: Status: Active Protocol: RUDI.PRAVEEN Activity Type Activity Date Activity User E-sign Co-sign Detail Recorded Client Recorded Date Recorded By Document 01/05/25 13:25 KW [id number] 01/05/25 13:34 KW Document 01/12/25 11:35 DL [id number] 01/12/25 11:45 DL Document 01/19/25 11:05 CP [id number] 01/19/25 11:12 CP 01/05/25 01/12/25 01/19/25 13:25 11:35 11:05 - Today's Visit Information Type of service Follow-up Visit Follow-up Visit Follow-up Visit (Physician/GRAPHIC EDITOR (Physician/GRAPHIC EDITOR (Physician/GRAPHIC EDITOR ) ) ) Arrival Mode Wheelchair Wheelchair Wheelchair Transfer Assistance None Accompanied by Patient Identification Verified (Name & Yes Yes Yes ) Patient Requires Transmission-Based No Precautions Vital Signs Temperature (97.8 F-99.1 F) 97.8 F 97.8 F 97.7 F L Temperature Source Temporal Temporal Temporal Pulse Rate (60-100) 57 L 55 L 59 L Pulse Location Monitor Monitor Monitor Respiratory Rate (12-18) 18 16 16 Respiratory rate source Observation Observation Observation Oxygen Delivery Method Room Air Blood Pressure (90/60-120/80) 149/90 H 121/64 H 136/84 H Blood Pressure Mean (mm Hg) 109 83 101 Source Monitor Monitor Monitor Position Semi-Fowlers Sitting Blood Pressure Location Left Arm Left Forearm History Since Last Visit- (Skip if this is Patient's initial visit) Have you changed medications since your No No No last visit? Any new allergies or adverse reactions No No No Had a fall/change in ADL's that may No No No increase risk of falls Signs or symptoms of abuse and/or No No No neglect since last visit Have you been in the hospital since your No No No last visit? Has dressing in place as prescribed Yes Yes Yes Has compression in place as prescribed Yes N/A N/A Has offloadiing in place as prescribed Yes Yes N/A Experienced any changes in pain level or No No management Left Footwear Surgical Shoe with pressure relief insole Right Footwear Regular Shoe Pain Scale: 0-10 Numeric Is Patient Pain Free? Yes Yes Yes WC - Nurse 1 - General Ulcer Measurement Start: 01/05/25 13:23 Freq: Status: Active Protocol: Activity Type Activity Date Activity User E-sign Co-sign Detail Recorded Client Recorded Date Recorded By Document 01/05/25 13:25 KW [id number] 01/05/25 13:34 KW Document 01/12/25 11:35 DL [id number] 01/12/25 11:45 DL Document 01/19/25 11:05 CP [id number] 01/19/25 11:12 CP 01/05/25 01/12/25 01/19/25 13:25 11:35 11:05 Wound Center Nurse 1 #2 LT HALLUX -Current Size (cm) - Length 0.1 -Current Size (cm) - Width 0.1 -Current Size (cm) - Depth 0.1 -Total Square Cm 0.01 -Date of Last Picture (Recall this 01/05/25 field) -Exudate Amt None Present -Wound Margin Indistinct, Non -Visible -Granulation Amt None Present (0 %) -Necrosis Amt None Present (0 %) -Texture (Livier-wound Skin Appearance) Assessed -Moisture (Livier-wound Skin Appearance) Assessed -Color (Livier-wound Skin Appearance) Assessed -Temperature (Livier-wound Skin No Abnormality Appearance) (Pt Warm) -Tenderness on Palpation (Livier-wound No Skin Appearance) #1 lt lat foot -Current Size (cm) - Length 1 0.1 1 -Current Size (cm) - Width 1.7 0.1 1.5 -Current Size (cm) - Depth 0.1 0.1 0.1 -Total Square Cm 1.7 0.01 1.5 -Date of Last Picture (Recall this 01/05/25 field) -Photo Taken Yes -Undermining/Tunneling No -Circular Undermining No -Exudate Amt Small Small Small -Exudate Type Serosanguineous Serosanguineous Sanguineous -Wound Margin Distinct, Distinct, Outline Outline Attached Attached -Granulation Amt None Present (0 Medium (34-66%) %) -Granulation Quality Red -Necrosis Amt Large (67-100%) Medium (34-66%) -Necrotic Tissue Type Eschar Adherent Slough -Structure Exposed N/A -Texture (Livier-wound Skin Appearance) Assessed Scarring No Abnormality -Moisture (Livier-wound Skin Appearance) Assessed No Abnormality No Abnormality -Color (Livier-wound Skin Appearance) Assessed No Abnormality No Abnormality -Temperature (Livier-wound Skin No Abnormality No Abnormality No Abnormality Appearance) (Pt Warm) (Pt Warm) (Pt Warm) -Tenderness on Palpation (Livier-wound No No No Skin Appearance) -Ulcer Cleansing Soap and Water Soap and Water Rinsed/ Irrigated with Saline -Foul Odor after Cleansing No No -Anesthetic Used 4% Lidocaine Solution -Wound Comment(s) scabbed WC - Nurse 2 - General Ulcer CM Notes Start: 01/05/25 13:23 Freq: Status: Active Protocol: Activity Type Activity Date Activity User E-sign Co-sign Detail Recorded Client Recorded Date Recorded By Document 01/05/25 13:54 [id number] 01/05/25 13:56 Document 01/12/25 12:05 [id number] 01/12/25 12:11 Document 01/19/25 11:36 [id number] 01/19/25 11:39 01/05/25 01/12/25 01/19/25 13:54 12:05 11:36 Wound Center Nurse 2 #2 LT HALLUX -Correct Patient Yes -Correct Side, Site, Position No -Correct Procedure No -Procedure Performed No -Post Debridement (cm) - Length 0 -Post Debridement (cm) - Width 0 -Post Debridement (cm) - Depth 0 -Total Square (Post) (cm) 0 -Area of Debridement (cm) - Length 0 -Area of Debridement (cm) - Width 0 -Total Square (Area) (cm) 0 -Wound/Ulcer Outcome Healed- Epithelialized #1 lt lat foot -Time 13:54 12:05 11:36 -Correct Patient Yes Yes Yes -Correct Side, Site, Position Yes Yes Yes -Correct Procedure Yes Yes Yes -Procedure Performed Yes Yes Yes -Type of Procedure Debridement Debridement Debridement -Clinical Debridement Muscle / Fascia Muscle / Fascia Subcutaneous -Tissue Removed Muscle Muscle Subcutaneous -Post Debridement (cm) - Length 1.0 0.8 0.5 -Post Debridement (cm) - Width 0.7 0.7 0.3 -Post Debridement (cm) - Depth 0.7 0.4 0.4 -Total Square (Post) (cm) 0.70 0.56 0.15 -Area of Debridement (cm) - Length 1.0 0.8 0.5 -Area of Debridement (cm) - Width 0.7 0.7 0.3 -Total Square (Area) (cm) 0.70 0.56 0.15 -Tunneling No No No -Undermining/Tunneling No No No -Circular Undermining No No No -Wound/Ulcer Outcome Not Healed Not Healed Not Healed -Ulcer Cleansing Rinsed/ Rinsed/ Rinsed/ Irrigated with Irrigated with Irrigated with Saline Saline Saline -Foul Odor after Cleansing No No No -Bioengineered Tissue Yes Yes Yes -Type of Bioengineered Tissue Epicord Epifix 18mm Epifix 18mm Disc Disc -Expiration Date 07/03/29 09/02/29 09/02/29 -Product Lot Number [id number] -Percent Used 100 100 100 -Lot number of Saline Used [id number] -Bleeding Controlled with Pressure Pressure Pressure -Treatment Response Procedure Procedure Procedure Tolerated Well Tolerated Well Tolerated Well -Offloading Yes Yes Yes -Type of Offloading Surgical Shoe Surgical Shoe Surgical Shoe -Pressure Reduction Wheelchair Wheelchair cushion cushion -Debridement - Subq, 1st 20sq cm No -Debridement - Muscle / Fascia, 1st No No 20sq cm -Apply Skin Sub - 1st 25 sq cm - Feet 1 1 1 -Epicord Application 1-4 (per sq cm) 6 -Epifix 18mm Disc Application 1-4 3 3 Pain Scale: 0-10 Numeric Is Patient Pain Free? Yes Yes Yes WC - Nurse 3 - General Ulcer D/C NN Start: 01/05/25 13:23 Freq: Status: Active Protocol: Activity Type Activity Date Activity User E-sign Co-sign Detail Recorded Client Recorded Date Recorded By Document 01/05/25 14:11 [facility] [id number] 01/05/25 14:11 [facility] Document 01/12/25 12:26 [id number] 01/12/25 12:26 Document 01/19/25 11:45 [id number] 01/19/25 11:48 0901/12/25 01/19/25 14:11 12:26 11:45 Wound Care Center Nurse 3 #1 lt lat foot -Ulcer Cleansing Not Cleansed Not Cleansed -Foul Odor after Cleansing No No -Primary Dressing Applied Silicone Border Foam 4x4 -Other Dressing epicord -Primary Dressing Covered/Secured with Dry Gauze & Dry Gauze,Dry Roll Gauze, Gauze & Roll Secured with Gauze,Secured Tape with Tape -Other Covering abd -Silicone Border Foam 4x4 1 LLE -Lotion applied to leg before No compression wrap -Compression Wrap Reena Wrap -Tubular Bandage Single Layer -Size of Tubigrip Used Size E -Size E ($) 1 -Other to secure Treatment Response Procedure Tolerated Well Pain Scale: 0-10 Numeric Is Patient Pain Free? Yes Yes Yes WC - Visit Discharge Discharge Condition Stable Stable Stable Ambulatory Status Wheelchair Wheelchair Wheelchair Transportation Private Auto Private Auto Private Auto Accompanied by Assessment/Plan Assessment/Plan (1) Non-pressure chronic ulcer of other part of left foot with necrosis of muscle: CODE(S): L97.523 - Non-pressure chronic ulcer of other part of left foot with necrosis of muscle PLAN: Patient was examined and evaluated. All findings were discussed with the patient. All questions were answered to the patient's satisfaction. Excisional debridement down to including subcutaneous tissue, muscle, fascia with a number 5 mm dermal curette to the lateral fifth metatarsal head full-thickness wound left foot done without incident. Postdebridement measurement was sanguinous crust postdebridement measurement is 0.5 x 0.3 x 0.4 cm. EpiFix 18 mm disc/graft was applied and 100% application to the full-thickness wound to the lateral left foot. Eighth application. There was no concern for infection. Bolster dressing was applied followed by dry sterile dressing and compression wrap. Patient was instructed to leave the dressing clean dry and intact. Offload especially when his wheelchair. Patient will follow-up with Dr. Shaikh in 1 weeks. (2) Other hereditary and idiopathic neuropathies: CODE(S): G60.8 - Other hereditary and idiopathic neuropathies 01/19/25 1257 <Electronically signed by Les Shaikh DPM> Cosigner Signature (if applicable): CC: ~ Signed [facility] Work Phone: [phone]) 301-567509-17-2025 Progress note [facility] [address] [place] [address] Progress Note - Wound Care 01/19/25 1256 MR#: [id number] Acct: [id number] Name: MAIDA POLANCO Rep #:[id number] : 1980 44 From: Les SORIANO PCP: Dr. Markel Bell MD Status:RE G RCR Location: History of Present Illness Date of Service: 01/19/25 Chief Complaint: Full-thickness wound, left foot History of Wound: Patient quadriplegic follows up for left plantar fifth MPJ ulceration which started as a pressure ulceration. Patient denies constitutional symptoms pain or any changes since previous visit. Progress of Wound: Stable full-thickness wound to the lateral left foot with amnion skin graft substitute. Improving well. Subjective Subjective Patient is a 44-year-old paraplegic male presenting to wound care center today for follow-up evaluation of full-thickness wound to the lateral fifth metatarsalhead of the left foot. He has left the skin graft substitute clean dry and intact. He has increased his protein intake and drinking Tommy asdiscussed. He has no pain to the left lower extremity. He denies trauma. Denies constitutional symptoms. No other pedal complaints at this time. Objective Data Objective Data Vital Signs: Vital Signs Temp Pulse Resp BP O2 Del Method 97.7 F L 59 L 16 136/84 H Room Air 01/19/25 11:05 01/19/25 11:05 01/19/25 11:05 01/19/25 11:05 01/05/25 13:25 Oxygen Delivery Method Room Air Physical Exam Narrative Vascular: DP and PT pulses are palpable to left lower extremity. CFT is brisk. No erythema. Skin temperature is warm to cool from proximal ankle to distal digits to the left extremity. Neurological: Patient is quadriplegic and does not have light touch and does nothave protective sensation. Dermatological: Evidence of full-thickness wound to the lateral aspect of the fifth metatarsal headmeasuring 0.5 x 0.3 x 0.4 cm negative probe to bone. Excisional debridement down to including subcutaneous tissue, muscle, fascia with a number 5 mm dermal curette to the lateral fifth metatarsal head full- thickness wound left foot done without incident. Postdebridement measurement was sanguinous crust postdebridement measurement is 0.5 x 0.3 x 0.4 cm. EpiFix 18 mm disc/graft was applied and 100% application to the full-thickness wound to the lateralleft foot. Eighth application. There was no concern for infection. Bolster dressing was applied followed by dry sterile dressing and compression wrap. Musculoskeletal:No pain to palpation of the full-thickness wound. No pain with calf pressure. Debridement Note Debridement Note Debridement Free Text: Excisional debridement down to including subcutaneous tissue, muscle, fasciawith a number 5 mm dermal curette to the lateral fifth metatarsal head full-thickness wound left foot done without incident. Postdebridement measurement was sanguinous crust postdebridement measurement is 0.5 x 0.3 x 0.4 cm. EpiFix 18 mm disc/graft was applied and 100% application to the full-thickness wound to the lateralleft foot. Eighth application. There was no concern for infection. Bolster dressing was applied followed by dry sterile dressing and compression wrap. Post-Debridement Measurements and Additional Note: Post-Debridement Measurements/Treatment - Nurse 1 - General Ulcer Assessment Start: 01/05/25 13:23 Freq: Status: Active Protocol: DANIS Activity Type Activity Date Activity User E-sign Co-sign Detail Recorded Client Recorded Date Recorded By Document 01/05/25 13:25 KW [id number] 01/05/25 13:34 KW Document 01/12/25 11:35 DL [id number] 01/12/25 11:45 DL Document 01/19/25 11:05 CP [id number] 01/19/25 11:12 CP 01/05/25 01/12/25 01/19/25 13:25 11:35 11:05 - Today's Visit Information Type of service Follow-up Visit Follow-up Visit Follow-up Visit (Physician/GRAPHIC EDITOR (Physician/GRAPHIC EDITOR (Physician/GRAPHIC EDITOR ) ) ) Arrival Mode Wheelchair Wheelchair Wheelchair Transfer Assistance None Accompanied by Patient Identification Verified (Name & Yes Yes Yes ) Patient Requires Transmission-Based No Precautions Vital Signs Temperature (97.8 F-99.1 F) 97.8 F 97.8 F 97.7 F L Temperature Source Temporal Temporal Temporal Pulse Rate (60-100) 57 L 55 L 59 L Pulse Location Monitor Monitor Monitor Respiratory Rate (12-18) 18 16 16 Respiratory rate source Observation Observation Observation Oxygen Delivery Method Room Air Blood Pressure (90/60-120/80) 149/90 H 121/64 H 136/84 H Blood Pressure Mean (mm Hg) 109 83 101 Source Monitor Monitor Monitor Position Semi-Fowlers Sitting Blood Pressure Location Left Arm Left Forearm History Since Last Visit- (Skip if this is Patient's initial visit) Have you changed medications since your No No No last visit? Any new allergies or adverse reactions No No No Had a fall/change in ADL's that may No No No increase risk of falls Signs or symptoms of abuse and/or No No No neglect since last visit Have you been in the hospital since your No No No last visit? Has dressing in place as prescribed Yes Yes Yes Has compression in place as prescribed Yes N/A N/A Has offloadiing in place as prescribed Yes Yes N/A Experienced any changes in pain level or No No management Left Footwear Surgical Shoe with pressure relief insole Right Footwear Regular Shoe Pain Scale: 0-10 Numeric Is Patient Pain Free? Yes Yes Yes WC - Nurse 1 - General Ulcer Measurement Start: 01/05/25 13:23 Freq: Status: Active Protocol: Activity Type Activity Date Activity User E-sign Co-sign Detail Recorded Client Recorded Date Recorded By Document 01/05/25 13:25 KW [id number] 01/05/25 13:34 KW Document 01/12/25 11:35 DL [id number] 01/12/25 11:45 DL Document 01/19/25 11:05 CP [id number] 01/19/25 11:12 CP 01/05/25 01/12/25 01/19/25 13:25 11:35 11:05 Wound Center Nurse 1 #2 LT HALLUX -Current Size (cm) - Length 0.1 -Current Size (cm) - Width 0.1 -Current Size (cm) - Depth 0.1 -Total Square Cm 0.01 -Date of Last Picture (Recall this 01/05/25 field) -Exudate Amt None Present -Wound Margin Indistinct, Non -Visible -Granulation Amt None Present (0 %) -Necrosis Amt None Present (0 %) -Texture (Livier-wound Skin Appearance) Assessed -Moisture (Livier-wound Skin Appearance) Assessed -Color (Livier-wound Skin Appearance) Assessed -Temperature (Livier-wound Skin No Abnormality Appearance) (Pt Warm) -Tenderness on Palpation (Livier-wound No Skin Appearance) #1 lt lat foot -Current Size (cm) - Length 1 0.1 1 -Current Size (cm) - Width 1.7 0.1 1.5 -Current Size (cm) - Depth 0.1 0.1 0.1 -Total Square Cm 1.7 0.01 1.5 -Date of Last Picture (Recall this 01/05/25 field) -Photo Taken Yes -Undermining/Tunneling No -Circular Undermining No -Exudate Amt Small Small Small -Exudate Type Serosanguineous Serosanguineous Sanguineous -Wound Margin Distinct, Distinct, Outline Outline Attached Attached -Granulation Amt None Present (0 Medium (34-66%) %) -Granulation Quality Red -Necrosis Amt Large (67-100%) Medium (34-66%) -Necrotic Tissue Type Eschar Adherent Slough -Structure Exposed N/A -Texture (Livier-wound Skin Appearance) Assessed Scarring No Abnormality -Moisture (Livier-wound Skin Appearance) Assessed No Abnormality No Abnormality -Color (Livier-wound Skin Appearance) Assessed No Abnormality No Abnormality -Temperature (Livier-wound Skin No Abnormality No Abnormality No Abnormality Appearance) (Pt Warm) (Pt Warm) (Pt Warm) -Tenderness on Palpation (Livier-wound No No No Skin Appearance) -Ulcer Cleansing Soap and Water Soap and Water Rinsed/ Irrigated with Saline -Foul Odor after Cleansing No No -Anesthetic Used 4% Lidocaine Solution -Wound Comment(s) scabbed WC - Nurse 2 - General Ulcer CM Notes Start: 01/05/25 13:23 Freq: Status: Active Protocol: Activity Type Activity Date Activity User E-sign Co-sign Detail Recorded Client Recorded Date Recorded By Document 01/05/25 13:54 [id number] 01/05/25 13:56 Document 01/12/25 12:05 [id number] 01/12/25 12:11 Document 01/19/25 11:36 [id number] 01/19/25 11:39 09/03/25 09/10/25 09/17/25 13:54 12:05 11:36 Wound Center Nurse 2 #2 LT HALLUX -Correct Patient Yes -Correct Side, Site, Position No -Correct Procedure No -Procedure Performed No -Post Debridement (cm) - Length 0 -Post Debridement (cm) - Width 0 -Post Debridement (cm) - Depth 0 -Total Square (Post) (cm) 0 -Area of Debridement (cm) - Length 0 -Area of Debridement (cm) - Width 0 -Total Square (Area) (cm) 0 -Wound/Ulcer Outcome Healed- Epithelialized #1 lt lat foot -Time 13:54 12:05 11:36 -Correct Patient Yes Yes Yes -Correct Side, Site, Position Yes Yes Yes -Correct Procedure Yes Yes Yes -Procedure Performed Yes Yes Yes -Type of Procedure Debridement Debridement Debridement -Clinical Debridement Muscle / Fascia Muscle / Fascia Subcutaneous -Tissue Removed Muscle Muscle Subcutaneous -Post Debridement (cm) - Length 1.0 0.8 0.5 -Post Debridement (cm) - Width 0.7 0.7 0.3 -Post Debridement (cm) - Depth 0.7 0.4 0.4 -Total Square (Post) (cm) 0.70 0.56 0.15 -Area of Debridement (cm) - Length 1.0 0.8 0.5 -Area of Debridement (cm) - Width 0.7 0.7 0.3 -Total Square (Area) (cm) 0.70 0.56 0.15 -Tunneling No No No -Undermining/Tunneling No No No -Circular Undermining No No No -Wound/Ulcer Outcome Not Healed Not Healed Not Healed -Ulcer Cleansing Rinsed/ Rinsed/ Rinsed/ Irrigated with Irrigated with Irrigated with Saline Saline Saline -Foul Odor after Cleansing No No No -Bioengineered Tissue Yes Yes Yes -Type of Bioengineered Tissue Epicord Epifix 18mm Epifix 18mm Disc Disc -Expiration Date 07/03/29 09/02/29 09/02/29 -Product Lot Number [id number] -Percent Used 100 100 100 -Lot number of Saline Used [id number] -Bleeding Controlled with Pressure Pressure Pressure -Treatment Response Procedure Procedure Procedure Tolerated Well Tolerated Well Tolerated Well -Offloading Yes Yes Yes -Type of Offloading Surgical Shoe Surgical Shoe Surgical Shoe -Pressure Reduction Wheelchair Wheelchair cushion cushion -Debridement - Subq, 1st 20sq cm No -Debridement - Muscle / Fascia, 1st No No 20sq cm -Apply Skin Sub - 1st 25 sq cm - Feet 1 1 1 -Epicord Application 1-4 (per sq cm) 6 -Epifix 18mm Disc Application 1-4 3 3 Pain Scale: 0-10 Numeric Is Patient Pain Free? Yes Yes Yes - Nurse 3 - General Ulcer D/C NN Start: 01/05/25 13:23 Freq: Status: Active Protocol: Activity Type Activity Date Activity User E-sign Co-sign Detail Recorded Client Recorded Date Recorded By Document 01/05/25 14:11 [facility] [id number] 01/05/25 14:11 [facility] Document 01/12/25 12:26 [id number] 01/12/25 12:26 Document 01/19/25 11:45 [id number] 01/19/25 11:48 01/05/25 01/12/25 01/19/25 14:11 12:26 11:45 Wound Care Center Nurse 3 #1 lt lat foot -Ulcer Cleansing Not Cleansed Not Cleansed -Foul Odor after Cleansing No No -Primary Dressing Applied Silicone Border Foam 4x4 -Other Dressing epicord -Primary Dressing Covered/Secured with Dry Gauze & Dry Gauze,Dry Roll Gauze, Gauze & Roll Secured with Gauze,Secured Tape with Tape -Other Covering abd -Silicone Border Foam 4x4 1 LLE -Lotion applied to leg before No compression wrap -Compression Wrap Reena Wrap -Tubular Bandage Single Layer -Size of Tubigrip Used Size E -Size E ($) 1 -Other to secure Treatment Response Procedure Tolerated Well Pain Scale: 0-10 Numeric Is Patient Pain Free? Yes Yes Yes - Visit Discharge Discharge Condition Stable Stable Stable Ambulatory Status Wheelchair Wheelchair Wheelchair Transportation Private Auto Private Auto Private Auto Accompanied by Assessment/Plan Assessment/Plan (1) Non-pressure chronic ulcer of other part of left foot with necrosis of muscle: CODE(S): L97.523 - Non-pressure chronic ulcer of other part of left foot with necrosis of muscle PLAN: Patient was examined and evaluated. All findings were discussed with the patient. All questions were answered to the patient's satisfaction. Excisional debridement down to including subcutaneous tissue, muscle, fascia with a number 5 mm dermal curette to the lateral fifth metatarsal head full- thickness wound left foot done without incident. Postdebridement measurement was sanguinous crust postdebridement measurement is 0.5 x 0.3 x 0.4 cm. EpiFix 18 mm disc/graft was applied and 100% application to the full-thickness wound to the lateralleft foot. Eighth application. There was no concern for infection. Bolster dressing was applied followed by dry sterile dressing and compression wrap. Patient was instructed to leave the dressing clean dry and intact. Offload especially when his wheelchair. Patient will follow-up with Dr. Shaikh in 1 weeks. (2) Other hereditary and idiopathic neuropathies: CODE(S): G60.8 - Other hereditary and idiopathic neuropathies 01/19/25 1257 Cosigner Signature (if applicable): CC: ~ Signed [facility]09-10-2025 Progress note Author Les Shaikh [facility] Note Date/Time January 12, 2025 12:37pm [facility] [address] [place] [id number] Progress Note - Wound Care 01/12/25 1235 MR#: [id number] Acct: [id number] Name: MAIDA POLANOC Rep #:[id number] : 1980 44 From: Les Richardson PM PCP: [facility] Markel Bell MD [facility] History of Present Illness Date of Service: 01/12/25 Chief Complaint: Full-thickness wound, left foot History of Wound: Patient quadriplegic follows up for left plantar fifth MPJ ulceration which started as a pressure ulceration. Patient denies constitutional symptoms pain or any changes since previous visit. Progress of Wound: Stable full-thickness wound to the lateral left foot with amnion skin graft substitute. Improving well. Subjective Subjective Patient is a 44-year-old male present to clinic today follow-up evaluation of full-thickness wound to the lateral aspect of the left foot submet fifth metatarsal head. Patient has left the amnion skin graft substitute clean dry and intact. He is nonambulatory and is paraplegic in a wheelchair today. He has no pain. Denies trauma. Denies constitutional symptoms. No other pedal complaints at this time. Objective Data Objective Data Vital Signs: Vital Signs Temp Pulse Resp BP O2 Del Method 97.8 F 55 L 16 121/64 H Room Air 01/12/25 11:35 01/12/25 11:35 01/12/25 11:35 01/12/25 11:35 01/05/25 13:25 Oxygen Delivery Method Room Air Physical Exam Narrative Vascular: DP and PT pulses are palpable to left lower extremity. CFT is brisk. No erythema. Skin temperature is warm to cool from proximal ankle to distal digits to the left extremity. Neurological: Patient is quadriplegic and does not have light touch and does nothave protective sensation. Dermatological: Evidence of full-thickness wound to the lateral aspect of the fifth metatarsal head measuring 0.8 x 0.7 x 0.4 cm negative probe to bone. Full- thickness wound to the distal left hallux is now healed. Excisional debridement down to including subcutaneous tissue, muscle, fascia with a number 5 mm dermal curette to the lateral fifth metatarsal head full-thickness wound left foot done without incident. Postdebridement measurement was 0.6 x 0.5 x 0.2 cm. Postdebridement measurement is 0.8 x 0.7 x 0.4 cm. EpiFix 18 mm disc/graft was applied and 100% application to the full-thickness wound to the lateral left foot. Seventh application. There was no concern for infection. Bolster dressing was applied followed by dry sterile dressing and compression wrap. Musculoskeletal:No pain to palpation of the full-thickness wound. No pain with calf pressure. Debridement Note Debridement Note Debridement Free Text: Excisional debridement down to including subcutaneous tissue, muscle, fascia with a number 5 mm dermal curette to the lateral fifth metatarsal head full-thickness wound left foot done without incident. Postdebridement measurement was 0.6 x 0.5 x 0.2 cm. Postdebridement measurementis 0.8 x 0.7 x 0.4 cm. EpiFix 18 mm disc/graft was applied and 100% application to the full-thickness wound to the lateral left foot. Seventh application. There was no concern for infection. Bolster dressing was applied followed by dry sterile dressing and compression wrap. Post-Debridement Measurements and Additional Note: Post-Debridement Measurements/Treatment - Nurse 1 - General Ulcer Assessment Start: 01/05/25 13:23 Freq: Status: Active Protocol: DANIS Activity Type Activity Date Activity User E-sign Co-sign Detail Recorded Client Recorded Date Recorded By Document 01/05/25 13:25 KW [id number] 01/05/25 13:34 KW Document 01/12/25 11:35 DL [id number] 01/12/25 11:45 DL 01/05/25 01/12/25 13:25 11:35 WC - Today's Visit Information Type of service Follow-up Visit Follow-up Visit (Physician/GRAPHIC EDITOR (Physician/GRAPHIC EDITOR ) ) Arrival Mode Wheelchair Wheelchair Transfer Assistance None Accompanied by Patient Identification Verified (Name & Yes Yes ) Patient Requires Transmission-Based No Precautions Vital Signs Temperature (97.8 F-99.1 F) 97.8 F 97.8 F Temperature Source Temporal Temporal Pulse Rate (60-100) 57 L 55 L Pulse Location Monitor Monitor Respiratory Rate (12-18) 18 16 Respiratory rate source Observation Observation Oxygen Delivery Method Room Air Blood Pressure (90/60-120/80) 149/90 H 121/64 H Blood Pressure Mean (mm Hg) 109 83 Source Monitor Monitor Position Semi-Fowlers Blood Pressure Location Left Arm History Since Last Visit- (Skip if this is Patient's initial visit) Have you changed medications since your No No last visit? Any new allergies or adverse reactions No No Had a fall/change in ADL's that may No No increase risk of falls Signs or symptoms of abuse and/or No No neglect since last visit Have you been in the hospital since your No No last visit? Has dressing in place as prescribed Yes Yes Has compression in place as prescribed Yes N/A Has offloadiing in place as prescribed Yes Yes Experienced any changes in pain level or No No management Left Footwear Surgical Shoe with pressure relief insole Right Footwear Regular Shoe Pain Scale: 0-10 Numeric Is Patient Pain Free? Yes Yes - Nurse 1 - General Ulcer Measurement Start: 01/05/25 13:23 Freq: Status: Active Protocol: Activity Type Activity Date Activity User E-sign Co-sign Detail Recorded Client Recorded Date Recorded By Document 01/05/25 13:25 KW [id number] 01/05/25 13:34 KW Document 01/12/25 11:35 DL [id number] 01/12/25 11:45 DL 01/05/25 01/12/25 13:25 11:35 Wound Center Nurse 1 #2 LT HALLUX -Current Size (cm) - Length 0.1 -Current Size (cm) - Width 0.1 -Current Size (cm) - Depth 0.1 -Total Square Cm 0.01 -Date of Last Picture (Recall this 01/05/25 field) -Exudate Amt None Present -Wound Margin Indistinct, Non -Visible -Granulation Amt None Present (0 %) -Necrosis Amt None Present (0 %) -Texture (Livier-wound Skin Appearance) Assessed -Moisture (Livier-wound Skin Appearance) Assessed -Color (Livier-wound Skin Appearance) Assessed -Temperature (Livier-wound Skin No Abnormality Appearance) (Pt Warm) -Tenderness on Palpation (Livier-wound No Skin Appearance) #1 lt lat foot -Current Size (cm) - Length 1 0.1 -Current Size (cm) - Width 1.7 0.1 -Current Size (cm) - Depth 0.1 0.1 -Total Square Cm 1.7 0.01 -Date of Last Picture (Recall this 01/05/25 field) -Exudate Amt Small Small -Exudate Type Serosanguineous Serosanguineous -Wound Margin Distinct, Distinct, Outline Outline Attached Attached -Granulation Amt None Present (0 Medium (34-66%) %) -Granulation Quality Red -Necrosis Amt Large (67-100%) Medium (34-66%) -Necrotic Tissue Type Eschar Adherent Slough -Structure Exposed N/A -Texture (Livier-wound Skin Appearance) Assessed Scarring -Moisture (Livier-wound Skin Appearance) Assessed No Abnormality -Color (Livier-wound Skin Appearance) Assessed No Abnormality -Temperature (Livier-wound Skin No Abnormality No Abnormality Appearance) (Pt Warm) (Pt Warm) -Tenderness on Palpation (Livier-wound No No Skin Appearance) -Ulcer Cleansing Soap and Water Soap and Water -Foul Odor after Cleansing No No -Anesthetic Used 4% Lidocaine Solution WC - Nurse 2 - General Ulcer CM Notes Start: 01/05/25 13:23 Freq: Status: Active Protocol: Activity Type Activity Date Activity User E-sign Co-sign Detail Recorded Client Recorded Date Recorded By Document 01/05/25 13:54 JF [id number] 01/05/25 13:56 Document 01/12/25 12:05 [id number] 01/12/25 12:11 01/05/25 01/12/25 13:54 12:05 Wound Center Nurse 2 #2 LT HALLUX -Correct Patient Yes -Correct Side, Site, Position No -Correct Procedure No -Procedure Performed No -Post Debridement (cm) - Length 0 -Post Debridement (cm) - Width 0 -Post Debridement (cm) - Depth 0 -Total Square (Post) (cm) 0 -Area of Debridement (cm) - Length 0 -Area of Debridement (cm) - Width 0 -Total Square (Area) (cm) 0 -Wound/Ulcer Outcome Healed- Epithelialized #1 lt lat foot -Time 13:54 12:05 -Correct Patient Yes Yes -Correct Side, Site, Position Yes Yes -Correct Procedure Yes Yes -Procedure Performed Yes Yes -Type of Procedure Debridement Debridement -Clinical Debridement Muscle / Fascia Muscle / Fascia -Tissue Removed Muscle Muscle -Post Debridement (cm) - Length 1.0 0.8 -Post Debridement (cm) - Width 0.7 0.7 -Post Debridement (cm) - Depth 0.7 0.4 -Total Square (Post) (cm) 0.70 0.56 -Area of Debridement (cm) - Length 1.0 0.8 -Area of Debridement (cm) - Width 0.7 0.7 -Total Square (Area) (cm) 0.70 0.56 -Tunneling No No -Undermining/Tunneling No No -Circular Undermining No No -Wound/Ulcer Outcome Not Healed Not Healed -Ulcer Cleansing Rinsed/ Rinsed/ Irrigated with Irrigated with Saline Saline -Foul Odor after Cleansing No No -Bioengineered Tissue Yes Yes -Type of Bioengineered Tissue Epicord Epifix 18mm Disc -Expiration Date 07/03/29 09/02/29 -Product Lot Number [id number] -Percent Used 100 100 -Lot number of Saline Used [id number] -Bleeding Controlled with Pressure Pressure -Treatment Response Procedure Procedure Tolerated Well Tolerated Well -Offloading Yes Yes -Type of Offloading Surgical Shoe Surgical Shoe -Pressure Reduction Wheelchair cushion -Debridement - Muscle / Fascia, 1st No No 20sq cm -Apply Skin Sub - 1st 25 sq cm - Feet 1 1 -Epicord Application 1-4 (per sq cm) 6 -Epifix 18mm Disc Application 1-4 3 Pain Scale: 0-10 Numeric Is Patient Pain Free? Yes Yes - Nurse 3 - General Ulcer D/C NN Start: 01/05/25 13:23 Freq: Status: Active Protocol: Activity Type Activity Date Activity User E-sign Co-sign Detail Recorded Client Recorded Date Recorded By Document 01/05/25 14:11 [facility] [id number] 01/05/25 14:11 [facility] Document 01/12/25 12:26 [id number] 01/12/25 12:26 01/05/25 01/12/25 14:11 12:26 Wound Care Center Nurse 3 #1 lt lat foot -Ulcer Cleansing Not Cleansed -Foul Odor after Cleansing No -Other Dressing epicord -Primary Dressing Covered/Secured with Dry Gauze & Dry Gauze,Dry Roll Gauze, Gauze & Roll Secured with Gauze,Secured Tape with Tape -Other Covering abd LLE -Compression Wrap Reena Wrap -Other to secure Treatment Response Procedure Tolerated Well Pain Scale: 0-10 Numeric Is Patient Pain Free? 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 All findings were discussed with the patient. All questions were answered to the patient's satisfaction. Excisional debridement down to including subcutaneous tissue, muscle, fascia with a number 5 mm dermal curette to the lateral fifth metatarsal head full-thickness wound left foot done without incident. Postdebridement measurement was 0.6 x 0.5 x 0.2 cm. Postdebridement measurement is 0.8 x 0.7 x 0.4 cm. EpiFix 18 mm disc/graft was applied and 100% application to the full-thickness wound to the lateral left foot. Seventh application. There was no concern for infection. Bolster dressing was applied followed by dry sterile dressing and compression wrap. Patient was instructed to leave the dressing clean dry and intact. Offload especially when his wheelchair. Patient will follow-up with Dr. Shaikh in 1 weeks. (2) Other hereditary and idiopathic neuropathies: CODE(S): G60.8 - Other hereditary and idiopathic neuropathies 01/12/25 1237 <Electronically signed by Les Shaikh DPM> Cosigner Signature (if applicable): CC: ~ Signed [facility] Work Phone: [phone] 358-124609-10-2025 Progress note [facility] [address] [place] [address] Progress Note - Wound Care 01/12/25 1235 MR#: [id number] Acct: [id number] Name: MAIDA PLOANCO Rep #: : 1980 44 From: Les Richardson PM PCP: Dr. Markel Bell MD Status:RE G RCR Location: History of Present Illness Date of Service: 01/12/25 Chief Complaint: Full-thickness wound, left foot History of Wound: Patient quadriplegic follows up for left plantar fifth MPJ ulceration which started as a pressure ulceration. Patient denies constitutional symptoms pain or any changes since previous visit. Progress of Wound: Stable full-thickness wound to the lateral left foot with amnion skin graft substitute. Improving well. Subjective Subjective Patient is a 44-year-old male present to clinic today follow-up evaluation of full-thickness wound to the lateral aspect of the left foot submet fifth metatarsal head. Patient has left the amnion skin graft substitute clean dry and intact. He is nonambulatory and is paraplegic in a wheelchair today. He has no pain. Denies trauma. Denies constitutional symptoms. No other pedal complaints at this time. Objective Data Objective Data Vital Signs: Vital Signs Temp Pulse Resp BP O2 Del Method 97.8 F 55 L 16 121/64 H Room Air 01/12/25 11:35 01/12/25 11:35 01/12/25 11:35 01/12/25 11:35 01/05/25 13:25 Oxygen Delivery Method Room Air Physical Exam Narrative Vascular: DP and PT pulses are palpable to left lower extremity. CFT is brisk. No erythema. Skin temperature is warm to cool from proximal ankle to distal digits to the left extremity. Neurological: Patient is quadriplegic and does not have light touch and does nothave protective sensation. Dermatological: Evidence of full-thickness wound to the lateral aspect of the fifth metatarsal headmeasuring 0.8 x 0.7 x 0.4 cm negative probe to bone. Full- thickness wound to the distal left halluxis now healed. Excisional debridement down to including subcutaneous tissue, muscle, fascia with a number 5 mm dermal curette to the lateral fifth metatarsal head full- thickness wound left foot done without incident. Postdebridement measurement was 0.6 x 0.5 x 0.2 cm. Postdebridement measurement is 0.8 x 0.7 x 0.4 cm. EpiFix 18 mm disc/graft was applied and 100% application to the full-thickness wound to the lateralleft foot. Seventh application. There was no concern for infection. Bolster dressing was applied followed by dry sterile dressing and compression wrap. Musculoskeletal:No pain to palpation of the full-thickness wound. No pain with calf pressure. Debridement Note Debridement Note Debridement Free Text: Excisional debridement down to including subcutaneous tissue, muscle, fasciawith a number 5 mm dermal curette to the lateral fifth metatarsal head full-thickness wound left foot done without incident. Postdebridement measurement was 0.6 x 0.5 x 0.2 cm. Postdebridement measure mentis 0.8 x 0.7 x 0.4 cm. EpiFix 18 mm disc/graft was applied and 100% application to the full-thickness wound to the lateralleft foot. Seventh application. There was no concern for infection. Bolster dressing was applied followed by dry sterile dressing and compression wrap. Post-Debridement Measurements and Additional Note: Post-Debridement Measurements/Treatment - Nurse 1 - General Ulcer Assessment Start: 01/05/25 13:23 Freq: Status: Active Protocol: DANIS Activity Type Activity Date Activity User E-sign Co-sign Detail Recorded Client Recorded Date Recorded By Document 01/05/25 13:25 KW [id number] 01/05/25 13:34 KW Document 01/12/25 11:35 DL [id number] 01/12/25 11:45 DL 01/05/25 01/12/25 13:25 11:35 - Today's Visit Information Type of service Follow-up Visit Follow-up Visit (Physician/GRAPHIC EDITOR (Physician/GRAPHIC EDITOR ) ) Arrival Mode Wheelchair Wheelchair Transfer Assistance None Accompanied by Patient Identification Verified (Name & Yes Yes ) Patient Requires Transmission-Based No Precautions Vital Signs Temperature (97.8 F-99.1 F) 97.8 F 97.8 F Temperature Source Temporal Temporal Pulse Rate (60-100) 57 L 55 L Pulse Location Monitor Monitor Respiratory Rate (12-18) 18 16 Respiratory rate source Observation Observation Oxygen Delivery Method Room Air Blood Pressure (90/60-120/80) 149/90 H 121/64 H Blood Pressure Mean (mm Hg) 109 83 Source Monitor Monitor Position Semi-Fowlers Blood Pressure Location Left Arm History Since Last Visit- (Skip if this is Patient's initial visit) Have you changed medications since your No No last visit? Any new allergies or adverse reactions No No Had a fall/change in ADL's that may No No increase risk of falls Signs or symptoms of abuse and/or No No neglect since last visit Have you been in the hospital since your No No last visit? Has dressing in place as prescribed Yes Yes Has compression in place as prescribed Yes N/A Has offloadiing in place as prescribed Yes Yes Experienced any changes in pain level or No No management Left Footwear Surgical Shoe with pressure relief insole Right Footwear Regular Shoe Pain Scale: 0-10 Numeric Is Patient Pain Free? Yes Yes - Nurse 1 - General Ulcer Measurement Start: 01/05/25 13:23 Freq: Status: Active Protocol: Activity Type Activity Date Activity User E-sign Co-sign Detail Recorded Client Recorded Date Recorded By Document 01/05/25 13:25 KW [id number] 01/05/25 13:34 KW Document 01/12/25 11:35 DL [id number] 01/12/25 11:45 DL 01/05/25 01/12/25 13:25 11:35 Wound Center Nurse 1 #2 LT HALLUX -Current Size (cm) - Length 0.1 -Current Size (cm) - Width 0.1 -Current Size (cm) - Depth 0.1 -Total Square Cm 0.01 -Date of Last Picture (Recall this 01/05/25 field) -Exudate Amt None Present -Wound Margin Indistinct, Non -Visible -Granulation Amt None Present (0 %) -Necrosis Amt None Present (0 %) -Texture (Livier-wound Skin Appearance) Assessed -Moisture (Livier-wound Skin Appearance) Assessed -Color (Livier-wound Skin Appearance) Assessed -Temperature (Livier-wound Skin No Abnormality Appearance) (Pt Warm) -Tenderness on Palpation (Livier-wound No Skin Appearance) #1 lt lat foot -Current Size (cm) - Length 1 0.1 -Current Size (cm) - Width 1.7 0.1 -Current Size (cm) - Depth 0.1 0.1 -Total Square Cm 1.7 0.01 -Date of Last Picture (Recall this 01/05/25 field) -Exudate Amt Small Small -Exudate Type Serosanguineous Serosanguineous -Wound Margin Distinct, Distinct, Outline Outline Attached Attached -Granulation Amt None Present (0 Medium (34-66%) %) -Granulation Quality Red -Necrosis Amt Large (67-100%) Medium (34-66%) -Necrotic Tissue Type Eschar Adherent Slough -Structure Exposed N/A -Texture (Livier-wound Skin Appearance) Assessed Scarring -Moisture (Livier-wound Skin Appearance) Assessed No Abnormality -Color (Livier-wound Skin Appearance) Assessed No Abnormality -Temperature (Livier-wound Skin No Abnormality No Abnormality Appearance) (Pt Warm) (Pt Warm) -Tenderness on Palpation (Livier-wound No No Skin Appearance) -Ulcer Cleansing Soap and Water Soap and Water -Foul Odor after Cleansing No No -Anesthetic Used 4% Lidocaine Solution WC - Nurse 2 - General Ulcer CM Notes Start: 01/05/25 13:23 Freq: Status: Active Protocol: Activity Type Activity Date Activity User E-sign Co-sign Detail Recorded Client Recorded Date Recorded By Document 01/05/25 13:54 [id number] 01/05/25 13:56 Document 01/12/25 12:05 DARIN [id number] 01/12/25 12:11 01/05/25 01/12/25 13:54 12:05 Wound Center Nurse 2 #2 LT HALLUX -Correct Patient Yes -Correct Side, Site, Position No -Correct Procedure No -Procedure Performed No -Post Debridement (cm) - Length 0 -Post Debridement (cm) - Width 0 -Post Debridement (cm) - Depth 0 -Total Square (Post) (cm) 0 -Area of Debridement (cm) - Length 0 -Area of Debridement (cm) - Width 0 -Total Square (Area) (cm) 0 -Wound/Ulcer Outcome Healed- Epithelialized #1 lt lat foot -Time 13:54 12:05 -Correct Patient Yes Yes -Correct Side, Site, Position Yes Yes -Correct Procedure Yes Yes -Procedure Performed Yes Yes -Type of Procedure Debridement Debridement -Clinical Debridement Muscle / Fascia Muscle / Fascia -Tissue Removed Muscle Muscle -Post Debridement (cm) - Length 1.0 0.8 -Post Debridement (cm) - Width 0.7 0.7 -Post Debridement (cm) - Depth 0.7 0.4 -Total Square (Post) (cm) 0.70 0.56 -Area of Debridement (cm) - Length 1.0 0.8 -Area of Debridement (cm) - Width 0.7 0.7 -Total Square (Area) (cm) 0.70 0.56 -Tunneling No No -Undermining/Tunneling No No -Circular Undermining No No -Wound/Ulcer Outcome Not Healed Not Healed -Ulcer Cleansing Rinsed/ Rinsed/ Irrigated with Irrigated with Saline Saline -Foul Odor after Cleansing No No -Bioengineered Tissue Yes Yes -Type of Bioengineered Tissue Epicord Epifix 18mm Disc -Expiration Date 07/03/29 09/02/29 -Product Lot Number [id number] -Percent Used 100 100 -Lot number of Saline Used [id number] -Bleeding Controlled with Pressure Pressure -Treatment Response Procedure Procedure Tolerated Well Tolerated Well -Offloading Yes Yes -Type of Offloading Surgical Shoe Surgical Shoe -Pressure Reduction Wheelchair cushion -Debridement - Muscle / Fascia, 1st No No 20sq cm -Apply Skin Sub - 1st 25 sq cm - Feet 1 1 -Epicord Application 1-4 (per sq cm) 6 -Epifix 18mm Disc Application 1-4 3 Pain Scale: 0-10 Numeric Is Patient Pain Free? Yes Yes WC - Nurse 3 - General Ulcer D/C NN Start: 01/05/25 13:23 Freq: Status: Active Protocol: Activity Type Activity Date Activity User E-sign Co-sign Detail Recorded Client Recorded Date Recorded By Document 01/05/25 14:11 [facility] [id number] 01/05/25 14:11 [facility] Document 01/12/25 12:26 [id number] 01/12/25 12:26 01/05/25 01/12/25 14:11 12:26 Wound Care Center Nurse 3 #1 lt lat foot -Ulcer Cleansing Not Cleansed -Foul Odor after Cleansing No -Other Dressing epicord -Primary Dressing Covered/Secured with Dry Gauze & Dry Gauze,Dry Roll Gauze, Gauze & Roll Secured with Gauze,Secured Tape with Tape -Other Covering abd LLE -Compression Wrap Reena Wrap -Other to secure Treatment Response Procedure Tolerated Well Pain Scale: 0-10 Numeric Is Patient Pain Free? Yes Yes WC - Visit Discharge Discharge Condition Stable Stable Ambulatory Status Wheelchair Wheelchair Transportation Private Auto Private Auto Accompanied by Assessment/Plan Assessment/Plan (1) Non-pressure chronic ulcer of other part of left foot with necrosis of muscle: CODE(S): L97.523 - Non-pressure chronic ulcer of other part of left foot with necrosis of muscle PLAN: Patient was examined and evaluated. All findings were discussed with the patient. All questions were answered to the patient's satisfaction. Excisional debridement down to including subcutaneous tissue, muscle, fascia with a number 5 mm dermal curette to the lateral fifth metatarsal head full- thickness wound left foot done without incident. Postdebridement measurement was 0.6 x 0.5 x 0.2 cm. Postdebridement measurement is 0.8 x 0.7 x 0.4 cm. EpiFix 18 mm disc/graft was applied and 100% application to the full-thickness wound to the lateralleft foot. Seventh application. There was no concern for infection. Bolster dressing was applied followed by dry sterile dressing and compression wrap. Patient was instructed to leave the dressing clean dry and intact. Offload especially when his wheelchair. Patient will follow-up with Dr. Shaikh in 1 weeks. (2) Other hereditary and idiopathic neuropathies: CODE(S): G60.8 - Other hereditary and idiopathic neuropathies 01/12/25 1237 Cosigner Signature (if applicable): CC: ~ Signed [facility]09-08-2025 History of Present illness Narrative* Alyssa Petit MD - 01/10/2025 5:45 PM EDT I have reviewed the device interrogation strips and agree with the documentation Alyssa Petit M.D. Cardiac Electrophysiology * Lakshmi Peace RN - 09/28/2024 9:00 AM EDT Patient was identified by name and date of . Lakshmi Peace RN DEVICE CLINIC INTERROGATION Device Type: Medtronic Micra AV2 implanted 01-13-[address] Aldana at [facility]. Indication: implanted for sinus node dysfunction. BATTERY VOLTAGE: 3.12 Volts, >10 years LEAD IMPEDANCE: Ventricle: 590 Ohms PACING THRESHOLD: Ventricle: 0.63v @ 0.24ms SENSING THRESHOLD: R-Wave: 15 mV INTRINSIC RHYTHM: NSR PERCENT PACING: AM-Vs 0%, VS only 95.8%, AM-ROUTE SALES SPECIALIST 0%, V-pac only 4.2% COMMENTS: Device check to establish care. Battery and leadless parameters are stable. NANDO test completed. No changes made. Remotes requested to be transferred. Next Remote Device Check: 3 months x 3 Next In Clinic Device Check: 1 year or sooner as needed. documented in this [id number] Progress note Author Les Shaikh [facility] Note Date/Time January 05, 2025 2:42pm [facility] [place] [address] Progress Note - Wound Care 01/05/25 1440 MR#: [id number] Acct: [id number] Name: MAIDA POLANCO Rep #:[id number] : 1980 44 From: Les Richardson PM PCP: Dr. Markel Bell MD Status:RE G RCR Location: History of Present Illness Date of Service: 01/05/25 Chief Complaint: Full-thickness wound, left foot History of Wound: Patient quadriplegic follows up for left plantar fifth MPJ ulceration which started as a pressure ulceration. Patient denies constitutional symptoms pain or any changes since previous visit. Progress of Wound: Stable full-thickness wound to the lateral left foot with amnion skin graft substitute. Improving well. Subjective Subjective Patient is a 44-year-old quadriplegic male presenting to the wound care center for follow-up evaluation of full-thickness wound to the lateral left foot to thelevel of the fifth metatarsal head with amniotic skin graft substitute application. They have left the dressing clean dry and intact. He noticed improvement to the full- thickness wound secondary to graft application. He has no pain to the left foot. Denies trauma. Denies constitutional symptoms. No other pedal complaints at this time. Objective Data Objective Data Vital Signs: Vital Signs Temp Pulse Resp BP O2 Del Method 97.8 F 57 L 18 149/90 H Room Air 01/05/25 13:25 01/05/25 13:25 01/05/25 13:25 01/05/25 13:25 01/05/25 13:25 Oxygen Delivery Method Room Air Physical Exam Narrative Vascular: DP and PT pulses are palpable to left lower extremity. CFT is brisk. No erythema. Skin temperature is warm to cool from proximal ankle to distal digits to the left extremity. Neurological: Patient is quadriplegic and does not have light touch and does nothave protective sensation. Dermatological: Evidence of full-thickness wound to the lateral aspect of the fifth metatarsal head measuring 1.0 x 0.7 x 0.7 cm. Negative probe to bone. Full- thickness wound to the distal left hallux is now healed. Excisional debridement down to including subcutaneous tissue, muscle, fascia andbone with a number 5 mm dermal curette to the lateral fifth metatarsal head full- thickness wound left foot done without incident. Postdebridement measurement was 0.8 x 0.8 x 0.5 cm. Postdebridement measurement is 1.0 x 0.7 x 0.7 cm. Epi cord 2.0 x 3.0 cm graft was applied and 100% application to the full- thickness wound to the lateral left foot. Sixth application. There was no concern for infection. Bolster dressing was applied followed by dry sterile dressing and compression wrap. Musculoskeletal:No pain to palpation of the full-thickness wound. No pain with calf pressure. Debridement Note Debridement Note Debridement Free Text: Excisional debridement down to including subcutaneous tissue, muscle, fascia and bone with a number 5 mm dermal curette to the lateralfifth metatarsal head full-thickness wound left foot done without incident. Postdebridement measurement was 0.8 x 0.8 x 0.5 cm. Postdebridement measurementis 1.0 x 0.7 x 0.7 cm. Epi cord 2.0 x 3.0 cm graft was applied and 100% application to the full- thickness wound to the lateral left foot. Sixth application. There was no concern for infection. Bolster dressing was applied followed by dry sterile dressing and compression wrap. Post-Debridement Measurements and Additional Note: Post-Debridement Measurements/Treatment - Nurse 1 - General Ulcer Assessment Start: 01/05/25 13:23 Freq: Status: Active Protocol: DANIS Activity Type Activity Date Activity User E-sign Co-sign Detail Recorded Client Recorded Date Recorded By Document 01/05/25 13:25 ANTOINE [id number] 01/05/25 13:34 01/05/25 13:25 WC - Today's Visit Information Type of service Follow-up Visit (Physician/GRAPHIC EDITOR ) Arrival Mode Wheelchair Accompanied by Patient Identification Verified (Name & Yes ) Vital Signs Temperature (97.8 F-99.1 F) 97.8 F Temperature Source Temporal Pulse Rate (60-100) 57 L Pulse Location Monitor Respiratory Rate (12-18) 18 Respiratory rate source Observation Oxygen Delivery Method Room Air Blood Pressure (90/60-120/80) 149/90 H Blood Pressure Mean (mm Hg) 109 Source Monitor Position Semi-Fowlers Blood Pressure Location Left Arm History Since Last Visit- (Skip if this is Patient's initial visit) Have you changed medications since your No last visit? Any new allergies or adverse reactions No Had a fall/change in ADL's that may No increase risk of falls Signs or symptoms of abuse and/or No neglect since last visit Have you been in the hospital since your No last visit? Has dressing in place as prescribed Yes Has compression in place as prescribed Yes Has offloadiing in place as prescribed Yes Experienced any changes in pain level or No management Left Footwear Surgical Shoe with pressure relief insole Right Footwear Regular Shoe Pain Scale: 0-10 Numeric Is Patient Pain Free? Yes - Nurse 1 - General Ulcer Measurement Start: 01/05/25 13:23 Freq: Status: Active Protocol: Activity Type Activity Date Activity User E-sign Co-sign Detail Recorded Client Recorded Date Recorded By Document 01/05/25 13:25 KW [id number] 01/05/25 13:34 KW 01/05/25 13:25 Wound Center Nurse 1 #2 LT HALLUX -Current Size (cm) - Length 0.1 -Current Size (cm) - Width 0.1 -Current Size (cm) - Depth 0.1 -Total Square Cm 0.01 -Date of Last Picture (Recall this 01/05/25 field) -Exudate Amt None Present -Wound Margin Indistinct, Non -Visible -Granulation Amt None Present (0 %) -Necrosis Amt None Present (0 %) -Texture (Livier-wound Skin Appearance) Assessed -Moisture (Livier-wound Skin Appearance) Assessed -Color (Livier-wound Skin Appearance) Assessed -Temperature (Livier-wound Skin No Abnormality Appearance) (Pt Warm) -Tenderness on Palpation (Livier-wound No Skin Appearance) #1 lt lat foot -Current Size (cm) - Length 1 -Current Size (cm) - Width 1.7 -Current Size (cm) - Depth 0.1 -Total Square Cm 1.7 -Date of Last Picture (Recall this 01/05/25 field) -Exudate Amt Small -Exudate Type Serosanguineous -Wound Margin Distinct, Outline Attached -Granulation Amt None Present (0 %) -Necrosis Amt Large (67-100%) -Necrotic Tissue Type Eschar -Texture (Livier-wound Skin Appearance) Assessed -Moisture (Livier-wound Skin Appearance) Assessed -Color (Livier-wound Skin Appearance) Assessed -Temperature (Livier-wound Skin No Abnormality Appearance) (Pt Warm) -Tenderness on Palpation (Livier-wound No Skin Appearance) -Ulcer Cleansing Soap and Water -Foul Odor after Cleansing No WC - Nurse 2 - General Ulcer CM Notes Start: 01/05/25 13:23 Freq: Status: Active Protocol: Activity Type Activity Date Activity User E-sign Co-sign Detail Recorded Client Recorded Date Recorded By Document 01/05/25 13:54 DARIN [id number] 01/05/25 13:56 JF 01/05/25 13:54 Wound Center Nurse 2 #2 LT HALLUX -Correct Patient Yes -Correct Side, Site, Position No -Correct Procedure No -Procedure Performed No -Post Debridement (cm) - Length 0 -Post Debridement (cm) - Width 0 -Post Debridement (cm) - Depth 0 -Total Square (Post) (cm) 0 -Area of Debridement (cm) - Length 0 -Area of Debridement (cm) - Width 0 -Total Square (Area) (cm) 0 -Wound/Ulcer Outcome Healed- Epithelialized #1 lt lat foot -Time 13:54 -Correct Patient Yes -Correct Side, Site, Position Yes -Correct Procedure Yes -Procedure Performed Yes -Type of Procedure Debridement -Clinical Debridement Muscle / Fascia -Tissue Removed Muscle -Post Debridement (cm) - Length 1.0 -Post Debridement (cm) - Width 0.7 -Post Debridement (cm) - Depth 0.7 -Total Square (Post) (cm) 0.70 -Area of Debridement (cm) - Length 1.0 -Area of Debridement (cm) - Width 0.7 -Total Square (Area) (cm) 0.70 -Tunneling No -Undermining/Tunneling No -Circular Undermining No -Wound/Ulcer Outcome Not Healed -Ulcer Cleansing Rinsed/ Irrigated with Saline -Foul Odor after Cleansing No -Bioengineered Tissue Yes -Type of Bioengineered Tissue Epicord -Expiration Date 07/03/29 -Product Lot Number [id number] -Percent Used 100 -Lot number of Saline Used [id number] -Bleeding Controlled with Pressure -Treatment Response Procedure Tolerated Well -Offloading Yes -Type of Offloading Surgical Shoe -Pressure Reduction Wheelchair cushion -Debridement - Muscle / Fascia, 1st No 20sq cm -Apply Skin Sub - 1st 25 sq cm - Feet 1 -Epicord Application 1-4 (per sq cm) 6 Pain Scale: 0-10 Numeric Is Patient Pain Free? Yes WC - Nurse 3 - General Ulcer D/C NN Start: 01/05/25 13:23 Freq: Status: Active Protocol: Activity Type Activity Date Activity User E-sign Co-sign Detail Recorded Client Recorded Date Recorded By Document 01/05/25 14:11 [facility] [id number] 01/05/25 14:11 [facility] 01/05/25 14:11 Wound Care Center Nurse 3 #1 lt lat foot -Other Dressing epicord -Primary Dressing Covered/Secured with Dry Gauze & Roll Gauze, Secured with Tape -Other Covering abd LLE -Compression Wrap Reena Wrap -Other to secure Treatment Response Procedure Tolerated Well Pain Scale: 0-10 Numeric Is Patient Pain Free? Yes WC - Visit Discharge Discharge Condition Stable Ambulatory Status Wheelchair Transportation Private Auto Accompanied by Assessment/Plan Assessment/Plan (1) Non-pressure chronic ulcer of other part of left foot with necrosis of muscle: CODE(S): L97.523 - Non-pressure chronic ulcer of other part of left foot with necrosis of muscle PLAN: Patient was examined and evaluated. All findings were discussed with the patient. All questions were answered to the patient's satisfaction. Excisional debridement down to including subcutaneous tissue, muscle, fascia andbone with a number 5 mm dermal curette to the lateral fifth metatarsal head full- thickness wound left foot done without incident. Postdebridement measurement was 0.8 x 0.8 x 0.5 cm. Postdebridement measurement is 1.0 x 0.7 x 0.7 cm. Epi cord 2.0 x 3.0 cm graft was applied and 100% application to the full- thickness wound to the lateral left foot. Sixth application. There was no concern for infection. Bolster dressing was applied followed by dry sterile dressing and compression wrap. Patient was instructed to leave the dressing clean dry and intact. Offload especially when his wheelchair. Patient will follow-up with Dr. Shaikh in 1 weeks. (2) Other hereditary and idiopathic neuropathies: CODE(S): G60.8 - Other hereditary and idiopathic neuropathies 01/05/25 1442 <Electronically signed by Les Shaikh DPM> Cosigner Signature (if applicable): CC: ~ Signed [facility] Work Phone: [phone] 942-321109-03-2025 Progress note [facility] [address] [place] [address] Progress Note - Wound Care 01/05/25 1440 MR#: [id number] Acct: [id number] Name: MAIDA POLANCO Rep #:[id number] : 1980 44 From: Les Richardson PM PCP: Dr. Markel Bell MD Status:RE G RCR Location: History of Present Illness Date of Service: 09/03/25 Chief Complaint: Full-thickness wound, left foot History of Wound: Patient quadriplegic follows up for left plantar fifth MPJ ulceration which started as a pressure ulceration. Patient denies constitutional symptoms pain or any changes since previous visit. Progress of Wound: Stable full-thickness wound to the lateral left foot with amnion skin graft substitute. Improving well. Subjective Subjective Patient is a 44-year-old quadriplegic male presenting to the wound care center for follow-up evaluation of full-thickness wound to the lateral left foot to thelevel of the fifth metatarsal head with amniotic skin graft substitute application. They have left the dressing clean dry and intact. He noticed improvement to the full-thickness wound secondary to graft application. He has no pain to the left foot. Denies trauma. Denies constitutional symptoms. No other pedal complaints at this time. Objective Data Objective Data Vital Signs: Vital Signs Temp Pulse Resp BP O2 Del Method 97.8 F 57 L 18 149/90 H Room Air 01/05/25 13:25 01/05/25 13:25 01/05/25 13:25 01/05/25 13:25 01/05/25 13:25 Oxygen Delivery Method Room Air Physical Exam Narrative Vascular: DP and PT pulses are palpable to left lower extremity. CFT is brisk. No erythema. Skin temperature is warm to cool from proximal ankle to distal digits to the left extremity. Neurological: Patient is quadriplegic and does not have light touch and does nothave protective sensation. Dermatological: Evidence of full-thickness wound to the lateral aspect of the fifth metatarsal headmeasuring 1.0 x 0.7 x 0.7 cm. Negative probe to bone. Full- thickness wound to the distal left hallux is now healed. Excisional debridement down to including subcutaneous tissue, muscle, fascia andbone with a number 5 mm dermal curette to the lateral fifth metatarsal head full-thickness wound left foot done withoutincident. Postdebridement measurement was 0.8 x 0.8 x 0.5 cm. Postdebridement measurement is 1.0 x 0.7 x 0.7 cm. Epi cord 2.0 x 3.0 cm graft was applied and 100% application to the full- thickness wound to the lateral left foot. Sixth application. There was no concern for infection. Bolster dressing was applied followed by dry sterile dressing and compression wrap. Musculoskeletal:No pain to palpation of the full-thickness wound. No pain with calf pressure. Debridement Note Debridement Note Debridement Free Text: Excisional debridement down to including subcutaneous tissue, muscle, fasciaand bone with a number 5 mm dermal curette to the lateralfifth metatarsal head full-thickness woundleft foot done without incident. Postdebridement measurement was 0.8 x 0.8 x 0.5 cm. Postdebridement measurementis 1.0 x 0.7 x 0.7 cm. Epi cord 2.0 x 3.0 cm graft was applied and 100% application to the full- thickness wound to the lateral left foot. Sixth application. There was no concern for infection. Bolster dressing was applied followed by dry sterile dressing and compression wrap. Post-Debridement Measurements and Additional Note: Post-Debridement Measurements/Treatment - Nurse 1 - General Ulcer Assessment Start: 01/05/25 13:23 Freq: Status: Active Protocol: RUDI.LOWEXT Activity Type Activity Date Activity User E-sign Co-sign Detail Recorded Client Recorded Date Recorded By Document 01/05/25 13:25 [id number] 01/05/25 13:34 01/05/25 13:25 - Today's Visit Information Type of service Follow-up Visit (Physician/GRAPHIC EDITOR ) Arrival Mode Wheelchair Accompanied by Patient Identification Verified (Name & Yes ) Vital Signs Temperature (97.8 F-99.1 F) 97.8 F Temperature Source Temporal Pulse Rate (60-100) 57 L Pulse Location Monitor Respiratory Rate (12-18) 18 Respiratory rate source Observation Oxygen Delivery Method Room Air Blood Pressure (90/60-120/80) 149/90 H Blood Pressure Mean (mm Hg) 109 Source Monitor Position Semi-Fowlers Blood Pressure Location Left Arm History Since Last Visit- (Skip if this is Patient's initial visit) Have you changed medications since your No last visit? Any new allergies or adverse reactions No Had a fall/change in ADL's that may No increase risk of falls Signs or symptoms of abuse and/or No neglect since last visit Have you been in the hospital since your No last visit? Has dressing in place as prescribed Yes Has compression in place as prescribed Yes Has offloadiing in place as prescribed Yes Experienced any changes in pain level or No management Left Footwear Surgical Shoe with pressure relief insole Right Footwear Regular Shoe Pain Scale: 0-10 Numeric Is Patient Pain Free? Yes WC - Nurse 1 - General Ulcer Measurement Start: 01/05/25 13:23 Freq: Status: Active Protocol: Activity Type Activity Date Activity User E-sign Co-sign Detail Recorded Client Recorded Date Recorded By Document 01/05/25 13:25 ANTOINE [id number] 01/05/25 13:34 KW 01/05/25 13:25 Wound Center Nurse 1 #2 LT HALLUX -Current Size (cm) - Length 0.1 -Current Size (cm) - Width 0.1 -Current Size (cm) - Depth 0.1 -Total Square Cm 0.01 -Date of Last Picture (Recall this 01/05/25 field) -Exudate Amt None Present -Wound Margin Indistinct, Non -Visible -Granulation Amt None Present (0 %) -Necrosis Amt None Present (0 %) -Texture (Livier-wound Skin Appearance) Assessed -Moisture (Livier-wound Skin Appearance) Assessed -Color (Livier-wound Skin Appearance) Assessed -Temperature (Livier-wound Skin No Abnormality Appearance) (Pt Warm) -Tenderness on Palpation (Livier-wound No Skin Appearance) #1 lt lat foot -Current Size (cm) - Length 1 -Current Size (cm) - Width 1.7 -Current Size (cm) - Depth 0.1 -Total Square Cm 1.7 -Date of Last Picture (Recall this 01/05/25 field) -Exudate Amt Small -Exudate Type Serosanguineous -Wound Margin Distinct, Outline Attached -Granulation Amt None Present (0 %) -Necrosis Amt Large (67-100%) -Necrotic Tissue Type Eschar -Texture (Livier-wound Skin Appearance) Assessed -Moisture (Livier-wound Skin Appearance) Assessed -Color (Livier-wound Skin Appearance) Assessed -Temperature (Livier-wound Skin No Abnormality Appearance) (Pt Warm) -Tenderness on Palpation (Livier-wound No Skin Appearance) -Ulcer Cleansing Soap and Water -Foul Odor after Cleansing No WC - Nurse 2 - General Ulcer CM Notes Start: 01/05/25 13:23 Freq: Status: Active Protocol: Activity Type Activity Date Activity User E-sign Co-sign Detail Recorded Client Recorded Date Recorded By Document 01/05/25 13:54 DARIN [id number] 01/05/25 13:56 JF 01/05/25 13:54 Wound Center Nurse 2 #2 LT HALLUX -Correct Patient Yes -Correct Side, Site, Position No -Correct Procedure No -Procedure Performed No -Post Debridement (cm) - Length 0 -Post Debridement (cm) - Width 0 -Post Debridement (cm) - Depth 0 -Total Square (Post) (cm) 0 -Area of Debridement (cm) - Length 0 -Area of Debridement (cm) - Width 0 -Total Square (Area) (cm) 0 -Wound/Ulcer Outcome Healed- Epithelialized #1 lt lat foot -Time 13:54 -Correct Patient Yes -Correct Side, Site, Position Yes -Correct Procedure Yes -Procedure Performed Yes -Type of Procedure Debridement -Clinical Debridement Muscle / Fascia -Tissue Removed Muscle -Post Debridement (cm) - Length 1.0 -Post Debridement (cm) - Width 0.7 -Post Debridement (cm) - Depth 0.7 -Total Square (Post) (cm) 0.70 -Area of Debridement (cm) - Length 1.0 -Area of Debridement (cm) - Width 0.7 -Total Square (Area) (cm) 0.70 -Tunneling No -Undermining/Tunneling No -Circular Undermining No -Wound/Ulcer Outcome Not Healed -Ulcer Cleansing Rinsed/ Irrigated with Saline -Foul Odor after Cleansing No -Bioengineered Tissue Yes -Type of Bioengineered Tissue Epicord -Expiration Date 07/03/29 -Product Lot Number [id number] -Percent Used 100 -Lot number of Saline Used [id number] -Bleeding Controlled with Pressure -Treatment Response Procedure Tolerated Well -Offloading Yes -Type of Offloading Surgical Shoe -Pressure Reduction Wheelchair cushion -Debridement - Muscle / Fascia, 1st No 20sq cm -Apply Skin Sub - 1st 25 sq cm - Feet 1 -Epicord Application 1-4 (per sq cm) 6 Pain Scale: 0-10 Numeric Is Patient Pain Free? Yes - Nurse 3 - General Ulcer D/C NN Start: 01/05/25 13:23 Freq: Status: Active Protocol: Activity Type Activity Date Activity User E-sign Co-sign Detail Recorded Client Recorded Date Recorded By Document 01/05/25 14:11 [facility] [id number] 01/05/25 14:11 [facility] 01/05/25 14:11 [facility] Nurse 3 #1 lt lat foot -Other Dressing epicord -Primary Dressing Covered/Secured with Dry Gauze & Roll Gauze, Secured with Tape -Other Covering abd LLE -Compression Wrap Reena Wrap -Other to secure Treatment Response Procedure Tolerated Well Pain Scale: 0-10 Numeric Is Patient Pain Free? Yes WC - Visit Discharge Discharge Condition Stable Ambulatory Status Wheelchair Transportation Private Auto Accompanied by Assessment/Plan Assessment/Plan (1) Non-pressure chronic ulcer of other part of left foot with necrosis of muscle: CODE(S): L97.523 - Non-pressure chronic ulcer of other part of left foot with necrosis of muscle PLAN: Patient was examined and evaluated. All findings were discussed with the patient. All questions were answered to the patient's satisfaction. Excisional debridement down to including subcutaneous tissue, muscle, fascia andbone with a number 5 mm dermal curette to the lateral fifth metatarsal head full-thickness wound left foot done withoutincident. Postdebridement measurement was 0.8 x 0.8 x 0.5 cm. Postdebridement measurement is 1.0 x 0.7 x 0.7 cm. Epi cord 2.0 x 3.0 cm graft was applied and 100% application to the full- thickness wound to the lateral left foot. Sixth application. There was no concern for infection. Bolster dressing was applied followed by dry sterile dressing and compression wrap. Patient was instructed to leave the dressing clean dry and intact. Offload especially when his wheelchair. Patient will follow-up with Dr. Shaikh in 1 weeks. (2) Other hereditary and idiopathic neuropathies: CODE(S): G60.8 - Other hereditary and idiopathic neuropathies 01/05/25 1442 Cosigner Signature (if applicable): CC: ~ Signed [facility]08-27-2025 History of Present illness Narrative* Noy Bui, PT - 12/29/2024 2:16 PM EDT opened in error Noy Bui PT * Maxine Gu, PT - 12/29/2024 1:30 PM EDT PHYSICAL THERAPY OUTPATIENT NEUROLOGICAL RE-EVALUATION NOTE Visit Number: 1 (previous bout 4) Referring Provider: Cristine Carpio MD Previous referral: Neelima Rockwell MD Diagnosis: Tetraplegia ([facility]) [G82.50] Previous diagnosis: Injury of cervical spinal cord, initial encounter ([facility]) [S14.109A] C4 complete (per notes) Onset Date: 2023 Mindi Hanson Trial Consultant: [email or web address] [phone] Precautions: micro-pacer (no stim above waist) Authorized visits: 14 Identification was verified by patient verbalizing his name and date of . Interpretor: non required Joey = Son = Kendall Payor: [employer] / Plan: [employer] MEDICAID HMO / Product Type: Medicaid HMO Identification was verified by patient verbalizing his name and date of . SUBJECTIVE: Waiting on OOD for AT and WC equipment WC head array did not go well, Kaleigh Frank, PT helping with other driving options Waiting to hear HEP for UE ROM, LE ROM, neck strengthening Neck sore from driving in WC van Ramp In garage is denied There is one outside A couple weeks of the B UE = twitching / spasms (R>L) Since has stopped No since AROM - UE or LE More feeling in the LLE - wave of tingling Emma lift at home PWC in daily RT300 Therapy System has been approved - uses it at home (working up to daily) R shoulder - TMC Brace to help with the RUE for stretching and positioning RTC Is on baclofen, tried botox Neck is limited in extension = can't use head array Can keep head back Flexed and forward posturing Leading to neck soreness BP = fluctuates, no symptoms Pain: 0/10 Location: neck - soreness Other: NA Social Hx: 2 story home, ramp to enter Working toward a ramp to get in from garage Bedroom - makeshift on the 1st floor Roll-in show chair Roll-in shower WC accessible bathroom sink Adaptive: Voice calls Voice texts TV 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 Accompanied by Joey (spouse). Transportation: power van + rear entrance Patient Goals: obtain wheelchair, obtain info for in home tech / assistance, guidance for continuedHEP / rehab Discussed Risks/Benefits of Therapy: Yes Hand Dominance: Right OBJECTIVE: *all per initial evaluation unless otherwise noted for re-evaluation purposes Past Medical History: @PMH@ Medications: @MED@ Patient Goals: obtain wheelchair, obtain info for in home tech / assistance, guidance for continuedHEP / rehab Posture: ABNORMAL - forward head, - protracted, upper cervical extended, lower cervical is flexed, cervical flexors extended, cervical extenders shortened IMPROVED 08/18/24 12/29/24 Decreased cervical extension, unable to rest head at head rest, unable to utilize head array Skin integrity: Left 5th toe pressure wound from positioning Discussed PRAFO boots - contacting [facility] manager of case for adjustments / new ones due to wear down IMPROVED 08/18/24 Wound care today 12/29/24 - osteomyelitis - side of lateral foot, big toe Orthotic Checkout: Prevalon boots for nighttime Not using Elevating feet + hospital bed + pillows 12/29/24 4 band abdominal binder Yves hoes bilateral PRAFO's x2 Not using Pressure sores on back of legs 12/29/24 Equipment Checkout: Wheelchair: 2024 Make/model: Permobil M3, Mid-wheel, head array Vendor: Tom Block, OT, [employer], [facility] [phone] Age of equipment: 2024 Cushion Make: MICHAELLE Age of equipment: 2024 Other: power-lift / emma-lift, hospital bed ([facility]) ordered a bed extension (denied by insurance), roll-in shower chair, [facility] order placed for [employer] + electro-bike PROM: Date: 04/26/24 12/29/24 Side: R/L R/L HIP hamstring SLR at 9/90 WFL WFL ANKLE DF 0/0 0/0 Cervical AROM: in degrees Date: 04/26/24 08/18/24 12/29/24 Pain? Flexion: 10 10 20 Y not anymore Extension: 30 30 30 Y not anymore R Rotation 30 40 30 Y not anymore L Rotation: 50 50 30 Y not anymore R Lateral Flexion: 20 20 20 Y not anymore L Lateral Flexion 10 10 10 Y not anymore STRENGTH: Manual Muscle Test: 5= normal Date: 04/26/24 12/29/24 Side: R/L R/L HIP flex 0 / 0 0/0 ext 0 / 0 0/0 abd 0 / 0 0/0 add 0 / 0 0/0 KNEE ext 0 / 0 0/0 flex 0 / 0 0/0 ANKLE DF 0 / 0 0/0 PF 0 / 0 0/0 INV 0 / 0 0/0 EV 0 / 0 0/0 Tone: Modified Leroy Scores for Spasticity: 0 = no increase in muscle tone 1 = Slight increase in muscle tone, manifested as a rjlmg-cnk-domyite or by minimal resistance at the end of range of motion 1+ = Slight increase in muscle tone, manifested by a catch, followed by minimal resistance throughout the remainder (less than half) of the range of motion 2 = More marked increase in muscle tone through most of the range of motion, but the part affected is still able to be easily moved 3 = Considerable increase in muscle tone; passive involvement difficult 4 = Affected part is rigid Muscle group R L Hip flexors Hip ADDuctors Knee flexors Knee extensors Ankle Plantarflexors Ankle Inversion Ankle Eversion Coordination: unable to test LE's due to weakness Proprioception: unable to test LE's due to weakness BALANCE TESTS: SHORT Sitting Balance: 04/26/24 Supported: With C backrest support - dependent Unsupported Unsupported with Eyes Closed: Reach to ankles Reach to floor Reach laterally Posterior lean, return to midline LONG Sitting Balance: Not appropriate Supported: Unsupported Unsupported with Eyes Closed Reach to ankles Reach to floor Reach laterally Posterior lean, return to midline FUNCTIONAL MOBILITY: Mat Mobility: 04/26/24 Short sit to long sit totalA Long sit to supine totalA Supine Roll to R totalA Supine Roll to L totalA Supine to long sitting via retro UE depression: totalA Supine to long sit via modified c maneuver through half sidelying totalA Long sit to short sit: totalA Sidelying to prone: totalA Prone to sidelying totalA Transfer status: 04/26/24 Level surfaces Power emma lift 2 difference 4 difference 6 difference Car transfers Power van with rear ramp entrance Floor transfers: Gait: N/A -- patient is non-ambulatory at this time Wheelchair Mobility/Skills: 04/26/24 Level surface propulsion: Household Distances: PWC - dependent in loaner chair Once head array will need training Level surface propulsion: community distances (> 1000 ft) : Unlevel surfaces community propulsion: Ramp negotiation: Static wheelie: Forward progression in wheelie: Turning in wheelie: 2 curb: 4 curb: 6 curb: SCIM: Spinal Cord Independent Measure: *A test to measure level of impairment with respect to functional mobility for acute and chronic SCI (higher scores = less impairment and higher physical functioning) * using only the Mobility sub-section ; questions 9-17 (Total Sub Score is out of 40) Date: 04/26/24 Scores as follows: 12/30/24 Mobility in bed: 0 0 Transfers: bed<> wheelchair 0 0 Transfers: wheelchair <>toilet<> tub 0 0 Mobility: Indoors 0 0 Mobility for Moderate Distances (10-100 meters; 32-328 ft) 0 0 Mobility Outdoors: (> 328 ft) 0 0 Stair Management 0 0 Transfers: wheelchair <> car 0 0 Transfers: ground <> wheelchair 0 0 MOBILITY SUB SCORE = 0/40 040 BALANCE: dependent, may train in future PRN functional progression GAIT: nonambulatory Functional Mobility: defer, seen in wheelchair, emma lift INTERVENTIONS: *All interventions done with verbal instructions, verbal cues, demonstration, and tactile assistance to produce the desired movement Therapeutic Activity: *PT provided physical assistance and cuing stated below in order to facilitate correct and safe performance of functional activities. HEP: discussed LE stretching - 30 min per day UE stretching - 15/20 min Cervical - HEP has not been performed much, educated on need, perform when tilting for pressure relief in PWC, green TB is issued for future progressions (has yellow and red) BP checks regularly from spouse New PWC able to use recline and tilt Discussed pressure relief - timers, every 30 min or less 5 degrees of recline and using tilt today Waiting for head array - David PT to train at home visit 12/29/24: head array unable to be used - needs clinic appointment I will set up with sandro and myself (PT) due to Wheelchair Clinic availability PLAN: 12/29/24 TMC - UE ROM, management, function SCI PMR - 6 month follow-up Wheelchair management - PT in clinic HOME EXERCISE PROGRAM: Access Code: [email or web address] URL: [email or web address] Date: 04/26/2024 Prepared by: Maxine Gu Exercises - Supine Hamstring Stretch with Caregiver - 1 x daily - 5-7 x weekly - 1 sets - 2 reps - 30-60 seconds hold - Supine Hip and Knee Flexion PROM with Caregiver - 1 x daily - 5-7 x weekly - 1 sets - 1-2 reps - 30-60 seconds hold - Hip Internal and External Rotation Caregiver PROM - 1 x daily - 5-7 x weekly - 1 sets - 2-3 reps - 30-60 seconds hold - Supine Hip Abduction PROM with Caregiver - 1 x daily - 5-7 x weekly - 1 sets - 2-3 reps - 30-60 seconds hold - Supine Soleus Stretch with Caregiver - 1 x daily - 5-7 x weekly - 1 sets - 2-3 reps - 30-60 seconds hold - Supine Gastroc Stretch with Caregiver - 1 x daily - 5-7 x weekly - 1 sets - 2- 3 reps - 30-60 seconds hold - Foot Dorsiflexion PROM Caregiver - 1 x daily - 5-7 x weekly - 1 sets - 2-3 reps - 30-60 seconds hold - Sidelying Hip Extension PROM with Caregiver - 1 x daily - 5-7 x weekly - 1 sets - 2-3 reps - 30-60 seconds hold Access Code: [email or web address] URL: [email or web address] Date: 05/26/2024 Prepared by: Maxine Gu Exercises - Supine Chin Tuck - 1 x daily - 7 x weekly - 2 sets - 10 reps - Supine Cervical Rotation AROM on Pillow - 2 x daily - 7 x weekly - 2 sets - 10 reps - Supine Deep Neck Flexor Training - Repetitions - 2 x daily - 7 x weekly - 2 sets - 10 reps - Supine Isometric Neck Rotation - 2 x daily - 7 x weekly - 2 sets - 10 reps - Supine Isometric Neck Sidebend - 2 x daily - 7 x weekly - 2 sets - 10 reps - Supine Isometric Neck Flexion - 2 x daily - 7 x weekly - 2 sets - 10 reps - Supine Isometric Neck Extension - 2 x daily - 7 x weekly - 2 sets - 10 reps - Seated Shoulder Shrugs - 2 x daily - 7 x weekly - 2 sets - 10 reps - Seated Scapular Retraction - 2 x daily - 7 x weekly - 2 sets - 10 reps ADDED 07/19/24: - Seated Neck Sidebending with Band - 2 x daily - 7 x weekly - 2 sets - 10-15 reps - Seated Neck Flexion and Extension with Band - 2 x daily - 7 x weekly - 2 sets - 10-15 reps Patient Education: Role of PT, POC, scheduling, HEP ASSESSMENT: Patient is evaluated from a neurological PT clinical standpoint following new referral from new SCI PMR provider. Findings of function remaining stable, tranfers with emma lift remain stable, mobility within PWC is limited to spouse / caregiver driving at this time, pressure relief in PWC is limited to spouse / caregiver driving at this time, working with TMC for RUE pain, ROM, function, and unfortunately no new voluntary movement. Tone is WFL in BLE, no motor strength recorded within BLE, no questions on transfers, etc from patient or spouse. Most concerned about PWC driving. Patient trialed ordered head array with [employer] and this did not go well, head array is sittingat home and not able to be used. I will reach out to [employer] retail representative in [facility] [place] to discuss options and will set up a clinic appointment with patient, PT and [employer] vendor/retail representative to assist. Patient to continue HEP daily with family and aide. UE to be addressed by [facility] clinic. LE no needs. WC to be addressed by this typewriter repairer. Problems: impairments of complete SCI injury including but not limited to LE strength, coordination, proprioception, functional mobility, functional strength, functional ambulation, functional posturing, use of power wheelchair, use of HEP for daily passive stretching with caregiver / spouse, sitting posture / stability / balance, decreased cervical ROM/flexibility/pain management PROBLEMS TO BE ADDRESSED: functional posturing (cervical ROM, strength, flexibility), addressing head array and PWC driving options with [employer], positioning in PWC, equipment needs; helping to acquire all necessary appointments Prognosis for therapy: Fair for goals - complexity of case, level of injury, family support PLAN OF CARE: Feed Grinder Goals (8-10 Visits) Pain - Patient will demonstrate improved postural control at head and neck without cueing in order to preserve function, and increase use of head array in safe manner with proper technique Patient centered goal: Assistance to obtain all ordered equipment, needed training in home, guidance for equipment / support Wheelchair management : (to achieve highest level of independence / accessibility in the community)Patient will be able to verbalize set up, positioning, and direct all care from wheelchair level atindependence Wheelchair mobility: (to achieve highest level of independence at home and in the community setting) Patient will be able to demonstrate independent driving with use of head array in home and community settings, on level surfaces, up/down ramps and on carpeted surfaces The evaluation findings and treatment plan were discussed with the patient. The patient indicated understanding and agreement with the plan. Goals discussed with Patient, Family Treatment this date: as above Patient Education: as above Start Time: 2:25 PM Stop Time: 3:00 PM Total Treatment Minutes: 35 minutes Timed Code Treatments by Procedure: --- Total Timed Code Treatment Minutes: --- minutes Un-Timed Code Treatments by Procedure: 35 min - high complexity evaluation Total Un-Timed Code Treatment Minutes: 35 minutes Maxine Gu PT, DPT Board-Certified Clinical Specialist in Neurological Physical Therapy Outpatient Neurological Physical Therapist documented in this [id number] NotePHYSICAL THERAPY OUTPATIENT NEUROLOGICAL RE-EVALUATION NOTE Visit Number: 1 (previous bout 4) Referring Provider: Cristine Carpio MD Previous referral: Neelima Rockwell MD Diagnosis: Tetraplegia ([facility]) [G82.50] Previous diagnosis: Injury of cervical spinal cord, initial encounter ([facility]) [S14.109A] C4 complete (per notes) Onset Date: 2023 Mindi Hanson Trial Consultant: [email or web address] [phone] Precautions: micro-pacer (no stim above waist) Authorized visits: 14 Identification was verified by patient verbalizing his name and date of . Interpretor: non required Joey = Son = Kendall [facility] / Plan[place] [facility] [place] [facility] MED[place] H[place] / Product Type: Medicaid HMO Identification was verified by patient verbalizing his name and date of . SUBJECTIVE: Waiting on OOD for AT and WC equipment WC head array did not go well, Kaleigh Frank, PT helping with other driving options Waiting to hear HEP for UE ROM, LE ROM, neck strengthening Neck sore from driving in WC van Ramp In garage is denied There is one outside A couple weeks of the B UE = twitching / spasms (R>L) Since has stopped No since AROM - UE or LE More feeling in the LLE - wave of tingling Emma lift at home PWC in daily RT300 Therapy System has been approved - uses it at home (working up to daily) R shoulder - [facility] Brace to help with the RUE for stretching and positioning RTC Is on baclofen, tried botox Neck is limited in extension = can't use head array Can keep head back Flexed and forward posturing Leading to neck soreness BP = fluctuates, no symptoms Pain: 0/10 Location: neck - soreness Other: NA Social Hx: 2 story home, ramp to enter Working toward a ramp to get in from garage Bedroom - makeshift on the 1st floor Roll-in show chair Roll-in shower accessible bathroom sink Adaptive: Voice calls Voice texts TV 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 Accompanied by Joey (spouse). Transportation: power van + rear entrance Patient Goals: obtain wheelchair, obtain info for in home tech / assistance, guidance for continued HEP / rehab Discussed Risks/Benefits of Therapy: Yes Hand Dominance: Right OBJECTIVE: *all per initial evaluation unless otherwise noted for re-evaluation purposes Past Medical History: @PMH@ Medications: @MED@ Patient Goals: obtain wheelchair, obtain info for in home tech / assistance, guidance for continued HEP / rehab Posture: ABNORMAL - forward head, - protracted, upper cervical extended, lower cervical is flexed, cervical flexors extended, cervical extenders shortened IMPROVED 08/18/24 12/29/24 Decreased cervical extension, unable to rest head at head rest, unable to utilize head array Skin integrity: Left 5th toe pressure wound from positioning Discussed PRAFO boots - contacting [facility] manager of case for adjustments / new ones due to wear down IMPROVED 08/18/24 Wound care today 12/29/24 - osteomyelitis - side of lateral foot, big toe Orthotic Checkout: Prevalon boots for nighttime Not using Elevating feet + hospital bed + pillows 12/29/24 4 band abdominal binder Yves coleman bilateral PRAFO's x2 Not using Pressure sores on back of legs 12/29/24 Equipment Checkout: Wheelchair: 2024 Make/model: Permobil M3, Mid-wheel, head array Vendor: Tom Block, OT, [employer], [facility] [phone] Age of equipment: [birth year]22 Cushion Make: MICHAELLE Age of equipment: 2024 Other: power-lift / emma-lift, hospital bed ([facility]) ordered a bed extension (denied by insurance), roll-in shower chair, PWC (loaner current) order placed for [employer] + electro-bike PROM: Date: 04/26/24 12/29/24 Side: R/L R/L HIP hamstring SLR at 9/90 WFL WFL ANKLE DF 0/0 0/0 Cervical AROM: in degrees Date: 04/26/24 08/18/24 12/29/24 Pain? Flexion: 10 10 20 Y not anymore Extension: 30 30 30 Y not anymore R Rotation 30 40 30 Y not anymore L Rotation: 50 50 30 Y not anymore R Lateral Flexion: 20 20 20 Y not anymore L Lateral Flexion 10 10 10 Y not anymore STRENGTH: Manual Muscle Test: 5= normal Date: 04/26/24 12/29/24 Side: R/L R/L HIP flex 0 / 0 0/0 ext 0 / 0 0/0 abd 0 / 0 0/0 add 0 / 0 0/0 KNEE ext 0 / 0 0/0 flex 0 / 0 0/0 ANKLE DF 0 / 0 0/0 PF 0 / 0 0/0 INV 0 / 0 0/0 EV 0 / 0 0/0 Tone: Modified Leroy Scores for Spasticity: 0 = no increase in muscle tone 1 = Slight increase in muscle tone, manifested as a rcdgh-vam-jcuidli or by minimal resistance at the end of range of motion (more content not included)... The [employer]Lex [id number] Progress note Author Les Shaikh [facility] Note Date/Time December 29, 2024 11 :00am [facility] [address] [place] [address] Progress Note - Wound Care 12/29/24 1056 MR#: [id number] Acct: [id number] Name: MAIDA POLANCO Rep #:[id number] : 1980 44 From: Les SORIANO PCP: Dr. Markel Bell MD Status:RE G RCR Location: History of Present Illness Date of Service: 12/29/24 Chief Complaint: Full-thickness wound, left foot History of Wound: Patient quadriplegic follows up for left plantar fifth MPJ ulceration which started as a pressure ulceration. Patient denies constitutional symptoms pain or any changes since previous visit. Progress of Wound: Patient has a stable full-thickness wound down to bone to the lateral fifth metatarsal head left foot. Subjective Subjective Patient is a 44-year-old quadriplegic male presenting to wound care center follow-up evaluation of full-thickness wound with graft application to the lateral fifth metatarsal head left foot. Patient has been compliant leaving thedressing clean dry and intact. He does admit to getting his left great toe stubbed while being pushed in his wheelchair. They been treating it with tripleantibiotic and a Band-Aid. He does have some manning on the right upper arm that show evidence of sterile serous bullae. There is no sign of infection. Denies constitutional symptoms. No other pedal complaints at this time. Objective Data Objective Data Vital Signs: Vital Signs Temp Pulse Resp BP O2 Del Method 97.3 F L 59 L 16 122/72 H Room Air 12/29/24 09:18 12/29/24 09:18 12/29/24 09:18 12/29/24 09:18 12/29/24 09:18 Oxygen Delivery Method Room Air Physical Exam Narrative Vascular: DP and PT pulses are palpable to left lower extremity. CFT is brisk. No erythema. Skin temperature is warm to cool from proximal ankle to distal digits to the left extremity. Neurological: Patient is quadriplegic and does not have light touch and does nothave protective sensation. Dermatological: Evidence of full-thickness wound to the lateral aspect of the fifth metatarsal head measuring 1.0 x 0.8 x 0.8 cm. Negative probe to bone. Evidence of full-thickness wound to the left distal hallux measuring 1.1 x 1.0 x0.1 cm. Wound base is granular with no sign of infection. Excisional debridement down to including subcutaneous tissue, muscle, fascia andbone with a number 5 mm dermal curette to the lateral fifth metatarsal head full- thickness wound left foot done without incident. Postdebridement measurement was 0.9 x 0.7 x 0.5 cm. Postdebridement measurement is 1.0 x 0.8 x 0.8 cm. Epi cord 2.0 x 3.0 cm graft was applied and 100% application to the full- thickness wound to the lateral left foot. Fifth application. There was no concern for infection. Bolster dressing was applied followed by dry sterile dressing and compression wrap. Excisional debridement down to and including subcutaneous tissue with a number 5mm dermal curette to the distal left hallux done without incident. Predebridement measurement was 1.0 x 0.9 x 0.1 cm. Postdebridement measurement is 1.1 x 1.0 x 0.1 cm. Musculoskeletal:No pain to palpation of the full-thickness wound. No pain with calf pressure. Debridement Note Debridement Note Debridement Free Text: Excisional debridement down to including subcutaneous tissue, muscle, fascia and bone with a number 5 mm dermal curette to the lateralfifth metatarsal head full-thickness wound left foot done without incident. Postdebridement measurement was 0.9 x 0.7 x 0.5 cm. Postdebridement measurementis 1.0 x 0.8 x 0.8 cm. Epi cord 2.0 x 3.0 cm graft was applied and 100% application to the full- thickness wound to the lateral left foot. Fifth application. There was no concern for infection. Bolster dressing was applied followed by dry sterile dressing and compression wrap. Excisional debridement down to and including subcutaneous tissue with a number 5mm dermal curette to the distal left hallux done without incident. Predebridement measurement was 1.0 x 0.9 x 0.1 cm. Postdebridement measurement is 1.1 x 1.0 x 0.1 cm. Post-Debridement Measurements and Additional Note: Post-Debridement Measurements/Treatment WC - Nurse 1 - General Ulcer Assessment Start: 12/08/24 14:40 Freq: Status: Active Protocol: DANIS Activity Type Activity Date Activity User E-sign Co-sign Detail Recorded Client Recorded Date Recorded By Document 12/15/24 14:43 GM [id number] 12/15/24 14:49 GM Document 12/22/24 15:06 DL [id number] 12/22/24 15:14 DL Document 12/29/24 09:18 KW [id number] 12/29/24 09:23 KW 12/15/24 12/22/24 12/29/24 14:43 15:06 09:18 WC - Today's Visit Information Type of service Follow-up Visit Follow-up Visit Follow-up Visit (Physician/GRAPHIC EDITOR (Physician/GRAPHIC EDITOR (Physician/GRAPHIC EDITOR ) ) ) Arrival Mode Wheelchair Wheelchair Wheelchair Transfer Assistance None None Accompanied by and aunt Patient Identification Verified (Name & Yes Yes Yes ) Patient Requires Transmission-Based No No Precautions Vital Signs Temperature (97.8 F-99.1 F) 98.6 F 98.3 F 97.3 F L Temperature Source Temporal Temporal Temporal Pulse Rate (60-100) 64 51 L 59 L Pulse Location Monitor Monitor Monitor Respiratory Rate (12-18) 16 18 16 Respiratory rate source Observation Observation Observation Oxygen Delivery Method Room Air Room Air Blood Pressure (90/60-120/80) 118/75 158/100 H 122/72 H Blood Pressure Mean (mm Hg) 89 119 88 Source Monitor Monitor Monitor Position Sitting Semi-Fowlers Blood Pressure Location Left Arm Left Arm History Since Last Visit- (Skip if this is Patient's initial visit) Have you changed medications since your No No No last visit? Any new allergies or adverse reactions No No No Had a fall/change in ADL's that may No No No increase risk of falls Signs or symptoms of abuse and/or No No No neglect since last visit Have you been in the hospital since your No No No last visit? Has dressing in place as prescribed Yes Yes Yes Has compression in place as prescribed Yes No Yes Has offloadiing in place as prescribed N/A N/A Yes Experienced any changes in pain level or No No No management Left Footwear Surgical Shoe Surgical Shoe with pressure with pressure relief insole relief insole Right Footwear Regular Shoe Regular Shoe Pain Scale: 0-10 Numeric Is Patient Pain Free? Yes Yes Yes WC - Nurse 1 - General Ulcer Measurement Start: 12/08/24 14:40 Freq: Status: Active Protocol: Activity Type Activity Date Activity User E-sign Co-sign Detail Recorded Client Recorded Date Recorded By Document 12/15/24 14:43 GM [id number] 12/15/24 14:49 GM Document 12/22/24 15:06 DL [id number] 12/22/24 15:14 DL Document 12/29/24 09:18 KW [id number] 12/29/24 09:23 KW 12/15/24 12/22/24 12/29/24 14:43 15:06 09:18 Wound Center Nurse 1 #2 LT HALLUX -Current Size (cm) - Length 0.9 -Current Size (cm) - Width 0.9 -Current Size (cm) - Depth 0.1 -Total Square Cm 0.81 -Date of Last Picture (Recall this 12/29/24 field) -Exudate Amt Small -Exudate Type Serosanguineous -Wound Margin Distinct, Outline Attached -Granulation Amt Large (67-100%) -Granulation Quality Red -Texture (Livier-wound Skin Appearance) Assessed -Moisture (Livier-wound Skin Appearance) Assessed -Color (Livier-wound Skin Appearance) Assessed -Temperature (Livier-wound Skin No Abnormality Appearance) (Pt Warm) -Tenderness on Palpation (Livier-wound No Skin Appearance) -Ulcer Cleansing Soap and Water -Foul Odor after Cleansing No -Anesthetic Used 5% Lidocaine Gel #1 lt lat foot -Combined with other wound No -Current Size (cm) - Length 1 1 1 -Current Size (cm) - Width 1.1 0.8 1 -Current Size (cm) - Depth 1.3 1.2 0.5 -Total Square Cm 1.1 0.8 1 -Date of Last Picture (Recall this 12/29/24 field) -Tunneling No -Undermining/Tunneling No -Circular Undermining No -Exudate Amt Medium Small Small -Exudate Type Serosanguineous Sanguineous Serosanguineous -Wound Margin Distinct, Distinct, Distinct, Outline Outline Outline Attached Attached Attached -Granulation Amt Small (1-33%) Medium (34-66%) Small (1-33%) -Granulation Quality Red Red Three Way -Slough/Fibrin Yes -Necrosis Amt Large (67-100%) Small (1-33%) Large (67-100%) -Necrotic Tissue Type Eschar Adherent Slough Eschar -Structure Exposed N/A -Texture (Livier-wound Skin Appearance) Assessed, Localized Edema Assessed Scarring ,Scarring -Moisture (Livier-wound Skin Appearance) Assessed Maceration Assessed -Color (Livier-wound Skin Appearance) Assessed, No Abnormality Assessed Erythema -Temperature (Livier-wound Skin No Abnormality No Abnormality No Abnormality Appearance) (Pt Warm) (Pt Warm) (Pt Warm) -Tenderness on Palpation (Livier-wound No No Skin Appearance) -Ulcer Cleansing Rinsed/ Soap and Water Soap and Water Irrigated with Saline -Foul Odor after Cleansing No No No -Anesthetic Used 5% Lidocaine 5% Lidocaine Gel Gel WC - Nurse 2 - General Ulcer CM Notes Start: 12/08/24 14:40 Freq: Status: Active Protocol: Activity Type Activity Date Activity User E-sign Co-sign Detail Recorded Client Recorded Date Recorded By Document 12/08/24 14:40 [id number] 12/08/24 14:47 Document 12/15/24 14:56 [id number] 12/15/24 15:00 JF Document 12/22/24 15:57 DS [id number] 12/22/24 16:04 DS Edit Result 12/22/24 15:57 DS (1) [id number] 12/22/24 16:05 DS Document 12/29/24 09:38 JF [id number] 12/29/24 09:44 JF (1) #1 lt lat foot - Clinical Debridement Subcutaneous => Muscle / Fascia - Tissue Removed Subcutaneous => Muscle,Fascia - Debridement - Subq, 1st 20sq cm No => - Debridement - Muscle / Fascia, 1st => No 20sq cm 12/08/24 12/15/24 12/22/24 14:40 14:56 15:57 Wound Center Nurse 2 #2 LT HALLUX -Time -Correct Patient -Correct Side, Site, Position -Correct Procedure -Procedure Performed -Type of Procedure -Clinical Debridement -Tissue Removed -Post Debridement (cm) - Length -Post Debridement (cm) - Width -Post Debridement (cm) - Depth -Total Square (Post) (cm) -Area of Debridement (cm) - Length -Area of Debridement (cm) - Width -Total Square (Area) (cm) -Tunneling -Undermining/Tunneling -Circular Undermining -Wound/Ulcer Outcome -Ulcer Cleansing -Foul Odor after Cleansing -Bioengineered Tissue -Bleeding Controlled with -Treatment Response -Offloading -Type of Offloading -Debridement - Subq, 1st 20sq cm #1 lt lat foot -Time 14:40 14:58 15:57 -Correct Patient Yes Yes Yes -Correct Side, Site, Position Yes Yes Yes -Correct Procedure Yes Yes Yes -Procedure Performed Yes Yes Yes -Type of Procedure Debridement Debridement Debridement -Clinical Debridement Subcutaneous Subcutaneous Muscle / Fascia -Tissue Removed Subcutaneous Subcutaneous Muscle,Fascia -Post Debridement (cm) - Length 1.0 1 0.9 -Post Debridement (cm) - Width 1.0 1 1.0 -Post Debridement (cm) - Depth 1.2 1 1.0 -Total Square (Post) (cm) 1.00 1 0.90 -Area of Debridement (cm) - Length 1.0 1 0.9 -Area of Debridement (cm) - Width 1.0 1 1.0 -Total Square (Area) (cm) 1.00 1 0.90 -Tunneling No No No -Undermining/Tunneling No No No -Circular Undermining No No No -Wound/Ulcer Outcome Not Healed Not Healed Not Healed -Ulcer Cleansing Rinsed/ Rinsed/ Rinsed/ Irrigated with Irrigated with Irrigated with Saline Saline Saline -Foul Odor after Cleansing No No No -Bioengineered Tissue Yes Yes Yes -Type of Bioengineered Tissue Epicord Epicord Epicord -Expiration Date 03/05/29 08/03/29 08/03/29 -Product Lot Number [id number] -Percent Used 100 100 100 -Lot number of Saline Used [id number] -Bleeding Controlled with Pressure Pressure Pressure -Treatment Response Procedure Procedure Procedure Tolerated Well Tolerated Well Tolerated Well -Offloading No Yes -Type of Offloading Surgical Shoe -Debridement - Subq, 1st 20sq cm Yes No -Debridement - Muscle / Fascia, 1st No 20sq cm -Apply Skin Sub - 1st 25 sq cm - Feet 1 1 -Epicord Application 1-4 (per sq cm) 6 6 6 Pain Scale: 0-10 Numeric Is Patient Pain Free? Yes Yes Yes 12/29/24 09:38 Wound Center Nurse 2 #2 LT HALLUX -Time 09:38 -Correct Patient Yes -Correct Side, Site, Position Yes -Correct Procedure Yes -Procedure Performed Yes -Type of Procedure Debridement -Clinical Debridement Subcutaneous -Tissue Removed Subcutaneous -Post Debridement (cm) - Length 1.1 -Post Debridement (cm) - Width 1.0 -Post Debridement (cm) - Depth 0.1 -Total Square (Post) (cm) 1.10 -Area of Debridement (cm) - Length 1.1 -Area of Debridement (cm) - Width 1.0 -Total Square (Area) (cm) 1.10 -Tunneling No -Undermining/Tunneling No -Circular Undermining No -Wound/Ulcer Outcome Not Healed -Ulcer Cleansing Rinsed/ Irrigated with Saline -Foul Odor after Cleansing No -Bioengineered Tissue No -Bleeding Controlled with Pressure -Treatment Response Procedure Tolerated Well -Offloading Yes -Type of Offloading Surgical Shoe -Debridement - Subq, 1st 20sq cm Yes #1 lt lat foot -Time 09:40 -Correct Patient Yes -Correct Side, Site, Position Yes -Correct Procedure Yes -Procedure Performed Yes -Type of Procedure Debridement -Clinical Debridement Muscle / Fascia -Tissue Removed Muscle -Post Debridement (cm) - Length 1.0 -Post Debridement (cm) - Width 0.8 -Post Debridement (cm) - Depth 0.8 -Total Square (Post) (cm) 0.80 -Area of Debridement (cm) - Length 1.0 -Area of Debridement (cm) - Width 0.8 -Total Square (Area) (cm) 0.80 -Tunneling No -Undermining/Tunneling No -Circular Undermining No -Wound/Ulcer Outcome Not Healed -Ulcer Cleansing Rinsed/ Irrigated with Saline -Foul Odor after Cleansing No -Bioengineered Tissue Yes -Type of Bioengineered Tissue Epicord -Expiration Date 07/03/29 -Product Lot Number [id number] -Percent Used 100 -Lot number of Saline Used [id number] -Bleeding Controlled with Pressure -Treatment Response Procedure Tolerated Well -Offloading Yes -Type of Offloading Surgical Shoe -Debridement - Subq, 1st 20sq cm No -Debridement - Muscle / Fascia, 1st No 20sq cm -Apply Skin Sub - 1st 25 sq cm - Feet 1 -Epicord Application 1-4 (per sq cm) 6 Pain Scale: 0-10 Numeric Is Patient Pain Free? Yes - Nurse 3 - General Ulcer D/C NN Start: 12/08/24 14:40 Freq: Status: Active Protocol: Activity Type Activity Date Activity User E-sign Co-sign Detail Recorded Client Recorded Date Recorded By Document 12/15/24 15:06 [id number] 12/15/24 15:07 GM Document 12/22/24 16:23 DL [id number] 12/22/24 16:24 DL Document 12/29/24 10:01 [id number] 12/29/24 10:02 12/15/24 12/22/24 12/29/24 15:06 16:23 10:01 Wound Care Center Nurse 3 #2 LT HALLUX -Ulcer Cleansing Not Cleansed -Foul Odor after Cleansing No -Primary Dressing Covered/Secured with Dry Gauze,Dry Gauze & Roll Gauze,Secured with Tape #1 lt lat foot -Ulcer Cleansing Not Cleansed Not Cleansed -Foul Odor after Cleansing No No No -Primary Dressing Applied Silicone Border Foam 4x4 -Other Dressing Epicord -Primary Dressing Covered/Secured with Dry Gauze & Dry Gauze & Dry Gauze,Dry Roll Gauze, Roll Gauze Gauze & Roll Secured with Gauze,Secured Tape with Tape -Other Covering betadine -Silicone Border Foam 4x4 1 LLE -Compression Wrap Reena Wrap Treatment Response Procedure Tolerated Well Pain Scale: 0-10 Numeric Is Patient Pain Free? Yes Yes Yes - Visit Discharge Discharge Condition Stable Stable Stable Ambulatory Status Wheelchair Wheelchair Wheelchair Transportation Private Auto Private Auto Private Auto Assessment/Plan Assessment/Plan (1) Non-pressure chronic ulcer of other part of left foot with necrosis of muscle: CODE(S): L97.523 - Non-pressure chronic ulcer of other part of left foot with necrosis of muscle PLAN: Patient was examined and evaluated. All findings were discussed with the patient. All questions were answered to the patient's satisfaction. Excisional debridement down to including subcutaneous tissue, muscle, fascia andbone with a number 5 mm dermal curette to the lateral fifth metatarsal head full- thickness wound left foot done without incident. Postdebridement measurement was 0.9 x 0.7 x 0.5 cm. Postdebridement measurement is 1.0 x 0.8 x 0.8 cm. Epi cord 2.0 x 3.0 cm graft was applied and 100% application to the full- thickness wound to the lateral left foot. Fifth application. There was no concern for infection. Bolster dressing was applied followed by dry sterile dressing and compression wrap. Excisional debridement down to and including subcutaneous tissue with a number 5mm dermal curette to the distal left hallux done without incident. Predebridement measurement was 1.0 x 0.9 x 0.1 cm. Postdebridement measurement is 1.1 x 1.0 x 0.1 cm. The left hallux is white cleaned and patted dry. Triple antibiotic and a Band- Aid was applied. Patient will continue to apply the zinc oxide paste to the burn area to the right upper extremity. No sign of infection or antibiotics were prescribed at this time. They will continue to leave the graft area clean dry and intact and change the left hallux daily. Patient will follow-up with Dr. Shaikh in 2 weeks. (2) Non-pressure chronic ulcer of other part of left foot with fat layer exposed: CODE(S): L97.522 - Non-pressure chronic ulcer of other part of left foot with fat layer exposed (3) Other hereditary and idiopathic neuropathies: CODE(S): G60.8 - Other hereditary and idiopathic neuropathies 12/29/24 1100 <Electronically signed by Les Shaikh DPM> Cosigner Signature (if applicable): CC: ~ Signed [facility] Work Phone: [phone] Progress note [facility] [address] [place] [address] Progress Note - Wound Care 12/29/24 1056 MR#: [id number] Acct: [id number] Name: MAIDA POLANCO Rep #:[id number] : 1980 44 From: Les Richardson PM PCP: Dr. Markel Bell MD Status:RE G RCR Location: History of Present Illness Date of Service: 12/29/24 Chief Complaint: Full-thickness wound, left foot History of Wound: Patient quadriplegic follows up for left plantar fifth MPJ ulceration which started as a pressure ulceration. Patient denies constitutional symptoms pain or any changes since previous visit. Progress of Wound: Patient has a stable full-thickness wound down to bone to the lateral fifth metatarsal head left foot. Subjective Subjective Patient is a 44-year-old quadriplegic male presenting to wound care center follow-up evaluation of full-thickness wound with graft application to the lateral fifth metatarsal head left foot. Patient has been compliant leaving thedressing clean dry and intact. He does admit to getting his left greattoe stubbed while being pushed in his wheelchair. They been treating it with tripleantibiotic and aBand-Aid. He does have some manning on the right upper arm that show evidence of sterile serous bullae. There is no sign of infection. Denies constitutional symptoms. No other pedal complaints at this time. Objective Data Objective Data Vital Signs: Vital Signs Temp Pulse Resp BP O2 Del Method 97.3 F L 59 L 16 122/72 H Room Air 12/29/24 09:18 12/29/24 09:18 12/29/24 09:18 12/29/24 09:18 12/29/24 09:18 Oxygen Delivery Method Room Air Physical Exam Narrative Vascular: DP and PT pulses are palpable to left lower extremity. CFT is brisk. No erythema. Skin temperature is warm to cool from proximal ankle to distal digits to the left extremity. Neurological: Patient is quadriplegic and does not have light touch and does nothave protective sensation. Dermatological: Evidence of full-thickness wound to the lateral aspect of the fifth metatarsal headmeasuring 1.0 x 0.8 x 0.8 cm. Negative probe to bone. Evidence of full-thickness wound to the left distal hallux measuring 1.1 x 1.0 x0.1 cm. Wound base is granular with no sign of infection. Excisional debridement down to including subcutaneous tissue, muscle, fascia andbone with a number 5 mm dermal curette to the lateral fifth metatarsal head full-thickness wound left foot done withoutincident. Postdebridement measurement was 0.9 x 0.7 x 0.5 cm. Postdebridement measurement is 1.0 x 0.8 x 0.8 cm. Epi cord 2.0 x 3.0 cm graft was applied and 100% application to the full- thickness wound to the lateral left foot. Fifth application. There was no concern for infection. Bolster dressing was applied followed by dry sterile dressing and compression wrap. Excisional debridement down to and including subcutaneous tissue with a number 5mm dermal curette to the distal left hallux done without incident. Predebridement measurement was 1.0 x 0.9 x 0.1 cm. Postdebridement measurement is 1.1 x 1.0 x 0.1 cm. Musculoskeletal:No pain to palpation of the full-thickness wound. No pain with calf pressure. Debridement Note Debridement Note Debridement Free Text: Excisional debridement down to including subcutaneous tissue, muscle, fasciaand bone with a number 5 mm dermal curette to the lateralfifth metatarsal head full-thickness woundleft foot done without incident. Postdebridement measurement was 0.9 x 0.7 x 0.5 cm. Postdebridement measurementis 1.0 x 0.8 x 0.8 cm. Epi cord 2.0 x 3.0 cm graft was applied and 100% application to the full- thickness wound to the lateral left foot. Fifth application. There was no concern for infection. Bolster dressing was applied followed by dry sterile dressing and compression wrap. Excisional debridement down to and including subcutaneous tissue with a number 5mm dermal curette to the distal left hallux done without incident. Predebridement measurement was 1.0 x 0.9 x 0.1 cm. Postdebridement measurement is 1.1 x 1.0 x 0.1 cm. Post-Debridement Measurements and Additional Note: Post-Debridement Measurements/Treatment - Nurse 1 - General Ulcer Assessment Start: 12/08/24 14:40 Freq: Status: Active Protocol: DANIS Activity Type Activity Date Activity User E-sign Co-sign Detail Recorded Client Recorded Date Recorded By Document 12/15/24 14:43 GM [id number] 12/15/24 14:49 GM Document 12/22/24 15:06 DL [id number] 12/22/24 15:14 DL Document 12/29/24 09:18 KW [id number] 12/29/24 09:23 KW 12/15/24 12/22/24 12/29/24 14:43 15:06 09:18 - Today's Visit Information Type of service Follow-up Visit Follow-up Visit Follow-up Visit (Physician/GRAPHIC EDITOR (Physician/GRAPHIC EDITOR (Physician/GRAPHIC EDITOR ) ) ) Arrival Mode Wheelchair Wheelchair Wheelchair Transfer Assistance None None Accompanied by and aunt Patient Identification Verified (Name & Yes Yes Yes ) Patient Requires Transmission-Based No No Precautions Vital Signs Temperature (97.8 F-99.1 F) 98.6 F 98.3 F 97.3 F L Temperature Source Temporal Temporal Temporal Pulse Rate (60-100) 64 51 L 59 L Pulse Location Monitor Monitor Monitor Respiratory Rate (12-18) 16 18 16 Respiratory rate source Observation Observation Observation Oxygen Delivery Method Room Air Room Air Blood Pressure (90/60-120/80) 118/75 158/100 H 122/72 H Blood Pressure Mean (mm Hg) 89 119 88 Source Monitor Monitor Monitor Position Sitting Semi-Fowlers Blood Pressure Location Left Arm Left Arm History Since Last Visit- (Skip if this is Patient's initial visit) Have you changed medications since your No No No last visit? Any new allergies or adverse reactions No No No Had a fall/change in ADL's that may No No No increase risk of falls Signs or symptoms of abuse and/or No No No neglect since last visit Have you been in the hospital since your No No No last visit? Has dressing in place as prescribed Yes Yes Yes Has compression in place as prescribed Yes No Yes Has offloadiing in place as prescribed N/A N/A Yes Experienced any changes in pain level or No No No management Left Footwear Surgical Shoe Surgical Shoe with pressure with pressure relief insole relief insole Right Footwear Regular Shoe Regular Shoe Pain Scale: 0-10 Numeric Is Patient Pain Free? Yes Yes Yes - Nurse 1 - General Ulcer Measurement Start: 12/08/24 14:40 Freq: Status: Active Protocol: Activity Type Activity Date Activity User E-sign Co-sign Detail Recorded Client Recorded Date Recorded By Document 12/15/24 14:43 GM [id number] 12/15/24 14:49 GM Document 12/22/24 15:06 DL [id number] 12/22/24 15:14 DL Document 12/29/24 09:18 KW [id number] 12/29/24 09:23 KW 12/15/24 12/22/24 12/29/24 14:43 15:06 09:18 Wound Center Nurse 1 #2 LT HALLUX -Current Size (cm) - Length 0.9 -Current Size (cm) - Width 0.9 -Current Size (cm) - Depth 0.1 -Total Square Cm 0.81 -Date of Last Picture (Recall this 12/29/24 field) -Exudate Amt Small -Exudate Type Serosanguineous -Wound Margin Distinct, Outline Attached -Granulation Amt Large (67-100%) -Granulation Quality Red -Texture (Livier-wound Skin Appearance) Assessed -Moisture (Livier-wound Skin Appearance) Assessed -Color (Livier-wound Skin Appearance) Assessed -Temperature (Livier-wound Skin No Abnormality Appearance) (Pt Warm) -Tenderness on Palpation (Livier-wound No Skin Appearance) -Ulcer Cleansing Soap and Water -Foul Odor after Cleansing No -Anesthetic Used 5% Lidocaine Gel #1 lt lat foot -Combined with other wound No -Current Size (cm) - Length 1 1 1 -Current Size (cm) - Width 1.1 0.8 1 -Current Size (cm) - Depth 1.3 1.2 0.5 -Total Square Cm 1.1 0.8 1 -Date of Last Picture (Recall this 12/29/24 field) -Tunneling No -Undermining/Tunneling No -Circular Undermining No -Exudate Amt Medium Small Small -Exudate Type Serosanguineous Sanguineous Serosanguineous -Wound Margin Distinct, Distinct, Distinct, Outline Outline Outline Attached Attached Attached -Granulation Amt Small (1-33%) Medium (34-66%) Small (1-33%) -Granulation Quality Red Red Three Way -Slough/Fibrin Yes -Necrosis Amt Large (67-100%) Small (1-33%) Large (67-100%) -Necrotic Tissue Type Eschar Adherent Slough Eschar -Structure Exposed N/A -Texture (Livier-wound Skin Appearance) Assessed, Localized Edema Assessed Scarring ,Scarring -Moisture (Livier-wound Skin Appearance) Assessed Maceration Assessed -Color (Livier-wound Skin Appearance) Assessed, No Abnormality Assessed Erythema -Temperature (Livier-wound Skin No Abnormality No Abnormality No Abnormality Appearance) (Pt Warm) (Pt Warm) (Pt Warm) -Tenderness on Palpation (Livier-wound No No Skin Appearance) -Ulcer Cleansing Rinsed/ Soap and Water Soap and Water Irrigated with Saline -Foul Odor after Cleansing No No No -Anesthetic Used 5% Lidocaine 5% Lidocaine Gel Gel WC - Nurse 2 - General Ulcer CM Notes Start: 12/08/24 14:40 Freq: Status: Active Protocol: Activity Type Activity Date Activity User E-sign Co-sign Detail Recorded Client Recorded Date Recorded By Document 12/08/24 14:40 GM [id number] 12/08/24 14:47 GM Document 12/15/24 14:56 JF [id number] 12/15/24 15:00 JF Document 12/22/24 15:57 DS [id number] 12/22/24 16:04 DS Edit Result 12/22/24 15:57 DS (1) [id number] 12/22/24 16:05 DS Document 12/29/24 09:38 JF [id number] 12/29/24 09:44 JF (1) #1 lt lat foot - Clinical Debridement Subcutaneous => Muscle / Fascia - Tissue Removed Subcutaneous => Muscle,Fascia - Debridement - Subq, 1st 20sq cm No => - Debridement - Muscle / Fascia, 1st => No 20sq cm 12/08/24 12/15/24 12/22/24 14:40 14:56 15:57 Wound Center Nurse 2 #2 LT HALLUX -Time -Correct Patient -Correct Side, Site, Position -Correct Procedure -Procedure Performed -Type of Procedure -Clinical Debridement -Tissue Removed -Post Debridement (cm) - Length -Post Debridement (cm) - Width -Post Debridement (cm) - Depth -Total Square (Post) (cm) -Area of Debridement (cm) - Length -Area of Debridement (cm) - Width -Total Square (Area) (cm) -Tunneling -Undermining/Tunneling -Circular Undermining -Wound/Ulcer Outcome -Ulcer Cleansing -Foul Odor after Cleansing -Bioengineered Tissue -Bleeding Controlled with -Treatment Response -Offloading -Type of Offloading -Debridement - Subq, 1st 20sq cm #1 lt lat foot -Time 14:40 14:58 15:57 -Correct Patient Yes Yes Yes -Correct Side, Site, Position Yes Yes Yes -Correct Procedure Yes Yes Yes -Procedure Performed Yes Yes Yes -Type of Procedure Debridement Debridement Debridement -Clinical Debridement Subcutaneous Subcutaneous Muscle / Fascia -Tissue Removed Subcutaneous Subcutaneous Muscle,Fascia -Post Debridement (cm) - Length 1.0 1 0.9 -Post Debridement (cm) - Width 1.0 1 1.0 -Post Debridement (cm) - Depth 1.2 1 1.0 -Total Square (Post) (cm) 1.00 1 0.90 -Area of Debridement (cm) - Length 1.0 1 0.9 -Area of Debridement (cm) - Width 1.0 1 1.0 -Total Square (Area) (cm) 1.00 1 0.90 -Tunneling No No No -Undermining/Tunneling No No No -Circular Undermining No No No -Wound/Ulcer Outcome Not Healed Not Healed Not Healed -Ulcer Cleansing Rinsed/ Rinsed/ Rinsed/ Irrigated with Irrigated with Irrigated with Saline Saline Saline -Foul Odor after Cleansing No No No -Bioengineered Tissue Yes Yes Yes -Type of Bioengineered Tissue Epicord Epicord Epicord -Expiration Date 03/05/29 08/03/29 08/03/29 -Product Lot Number [id number] -Percent Used 100 100 100 -Lot number of Saline Used [id number] -Bleeding Controlled with Pressure Pressure Pressure -Treatment Response Procedure Procedure Procedure Tolerated Well Tolerated Well Tolerated Well -Offloading No Yes -Type of Offloading Surgical Shoe -Debridement - Subq, 1st 20sq cm Yes No -Debridement - Muscle / Fascia, 1st No 20sq cm -Apply Skin Sub - 1st 25 sq cm - Feet 1 1 -Epicord Application 1-4 (per sq cm) 6 6 6 Pain Scale: 0-10 Numeric Is Patient Pain Free? Yes Yes Yes 12/29/24 09:38 Wound Center Nurse 2 #2 LT HALLUX -Time 09:38 -Correct Patient Yes -Correct Side, Site, Position Yes -Correct Procedure Yes -Procedure Performed Yes -Type of Procedure Debridement -Clinical Debridement Subcutaneous -Tissue Removed Subcutaneous -Post Debridement (cm) - Length 1.1 -Post Debridement (cm) - Width 1.0 -Post Debridement (cm) - Depth 0.1 -Total Square (Post) (cm) 1.10 -Area of Debridement (cm) - Length 1.1 -Area of Debridement (cm) - Width 1.0 -Total Square (Area) (cm) 1.10 -Tunneling No -Undermining/Tunneling No -Circular Undermining No -Wound/Ulcer Outcome Not Healed -Ulcer Cleansing Rinsed/ Irrigated with Saline -Foul Odor after Cleansing No -Bioengineered Tissue No -Bleeding Controlled with Pressure -Treatment Response Procedure Tolerated Well -Offloading Yes -Type of Offloading Surgical Shoe -Debridement - Subq, 1st 20sq cm Yes #1 lt lat foot -Time 09:40 -Correct Patient Yes -Correct Side, Site, Position Yes -Correct Procedure Yes -Procedure Performed Yes -Type of Procedure Debridement -Clinical Debridement Muscle / Fascia -Tissue Removed Muscle -Post Debridement (cm) - Length 1.0 -Post Debridement (cm) - Width 0.8 -Post Debridement (cm) - Depth 0.8 -Total Square (Post) (cm) 0.80 -Area of Debridement (cm) - Length 1.0 -Area of Debridement (cm) - Width 0.8 -Total Square (Area) (cm) 0.80 -Tunneling No -Undermining/Tunneling No -Circular Undermining No -Wound/Ulcer Outcome Not Healed -Ulcer Cleansing Rinsed/ Irrigated with Saline -Foul Odor after Cleansing No -Bioengineered Tissue Yes -Type of Bioengineered Tissue Epicord -Expiration Date 07/03/29 -Product Lot Number [id number] -Percent Used 100 -Lot number of Saline Used [id number] -Bleeding Controlled with Pressure -Treatment Response Procedure Tolerated Well -Offloading Yes -Type of Offloading Surgical Shoe -Debridement - Subq, 1st 20sq cm No -Debridement - Muscle / Fascia, 1st No 20sq cm -Apply Skin Sub - 1st 25 sq cm - Feet 1 -Epicord Application 1-4 (per sq cm) 6 Pain Scale: 0-10 Numeric Is Patient Pain Free? Yes WC - Nurse 3 - General Ulcer D/C NN Start: 12/08/24 14:40 Freq: Status: Active Protocol: Activity Type Activity Date Activity User E-sign Co-sign Detail Recorded Client Recorded Date Recorded By Document 12/15/24 15:06 [id number] 12/15/24 15:07 GM Document 12/22/24 16:23 DL [id number] 12/22/24 16:24 DL Document 12/29/24 10:01 [id number] 12/29/24 10:02 12/15/24 12/22/24 12/29/24 15:06 16:23 10:01 Wound Care Center Nurse 3 #2 LT HALLUX -Ulcer Cleansing Not Cleansed -Foul Odor after Cleansing No -Primary Dressing Covered/Secured with Dry Gauze,Dry Gauze & Roll Gauze,Secured with Tape #1 lt lat foot -Ulcer Cleansing Not Cleansed Not Cleansed -Foul Odor after Cleansing No No No -Primary Dressing Applied Silicone Border Foam 4x4 -Other Dressing Epicord -Primary Dressing Covered/Secured with Dry Gauze & Dry Gauze & Dry Gauze,Dry Roll Gauze, Roll Gauze Gauze & Roll Secured with Gauze,Secured Tape with Tape -Other Covering betadine -Silicone Border Foam 4x4 1 LLE -Compression Wrap Reena Wrap Treatment Response Procedure Tolerated Well Pain Scale: 0-10 Numeric Is Patient Pain Free? Yes Yes Yes WC - Visit Discharge Discharge Condition Stable Stable Stable Ambulatory Status Wheelchair Wheelchair Wheelchair Transportation Private Auto Private Auto Private Auto Assessment/Plan Assessment/Plan (1) Non-pressure chronic ulcer of other part of left foot with necrosis of muscle: CODE(S): L97.523 - Non-pressure chronic ulcer of other part of left foot with necrosis of muscle PLAN: Patient was examined and evaluated. All findings were discussed with the patient. All questions were answered to the patient's satisfaction. Excisional debridement down to including subcutaneous tissue, muscle, fascia andbone with a number 5 mm dermal curette to the lateral fifth metatarsal head full-thickness wound left foot done withoutincident. Postdebridement measurement was 0.9 x 0.7 x 0.5 cm. Postdebridement measurement is 1.0 x 0.8 x 0.8 cm. Epi cord 2.0 x 3.0 cm graft was applied and 100% application to the full- thickness wound to the lateral left foot. Fifth application. There was no concern for infection. Bolster dressing was applied followed by dry sterile dressing and compression wrap. Excisional debridement down to and including subcutaneous tissue with a number 5mm dermal curette to the distal left hallux done without incident. Predebridement measurement was 1.0 x 0.9 x 0.1 cm. Postdebridement measurement is 1.1 x 1.0 x 0.1 cm. The left hallux is white cleaned and patted dry. Triple antibiotic and a Band- Aid was applied. Patient will continue to apply the zinc oxide paste to the burn area to the right upper extremity. No sign of infection or antibiotics were prescribed at this time. They will continue to leave the graft area clean dry and intact and change the left hallux daily. Patient will follow-up with Dr. Shaikh in 2 weeks. (2) Non-pressure chronic ulcer of other part of left foot with fat layer exposed: CODE(S): L97.522 - Non-pressure chronic ulcer of other part of left foot with fat layer exposed (3) Other hereditary and idiopathic neuropathies: CODE(S): G60.8 - Other hereditary and idiopathic neuropathies 12/29/24 1100 Cosigner Signature (if applicable): CC: ~ Signed [facility]08-22-2025 [id number] male with a high level spinal cord injury here for follow-up for evaluation of right upper extremity. Still has no function on left. He is working at home on stretching and therapy/home exercise program. Feels that right elbow is slowly improving with stretching, questionable improvement after 500 units Botox a proximally 6 weeks ago. Physical exam Comfortable no acute distress. Gross examination right shoulder demonstrates 2/5 deltoid, is able to fully flex the elbow and can passively be extended to 120???. See previously scanned MMT chart for full examination and response to surface stem. Assessment plan 44-year-old with right elbow contracture in setting of tetraplegia. Limited surgical reconstruction options given no muscles distal to elbow. Is potential FES candidate. Needs to improve elbow range of motion to make this functional. Is a potential candidate for biceps to triceps tendon transfer, they are going to continue to work on stretching for the time being and we will incorporate a locking elbow brace to try and maintain the results. Follow-up telephone visit several weeks after next Botox scheduled in March.[facility] 12-24-2024 History of Present illness Narrative* Shruthi Sheffield MD - 12/24/2024 7:04 AM EDT 44-year-old male with a high level spinal cord injury here for follow-up for evaluation of right upper extremity. Still has no function on left. He is working at home on stretching and therapy/home exercise program. Feels that right elbow is slowly improving with stretching, questionable improvement after 500 units Botox a proximally 6 weeks ago. Physical exam Comfortable no acute distress. Gross examination right shoulder demonstrates 2/5 deltoid, is able to fully flex the elbow and can passively be extended to 120 . See previously scanned MMT chart for full examination and response to surface stem. Assessment plan 44-year-old with right elbow contracture in setting of tetraplegia. Limited surgical reconstructionoptions given no muscles distal to elbow. Is potential FES candidate. Needs to improve elbow range of motion to make this functional. Is a potential candidate for biceps to triceps tendon transfer, they are going to continue to work on stretching for the time being and we will incorporate a lockingelbow brace to try and maintain the results. Follow-up telephone visit several weeks after next Botox scheduled in March. documented in this [id number] Progress note Author Les Shaikh [facility] Note Date/Time December 23, 2024 4: 17pm [facility] [address] [place] [id number] Progress Note - Wound Care 12/23/24 1613 MR#: [id number] Acct: [id number] Name: MAIDA POLANCO Rep #:[id number] : 1980 44 From: Les SORIANO PCP: Dr. Markel Bell MD Status:RE G RCR Location: History of Present Illness Date of Service: 12/23/24 Chief Complaint: Full-thickness wound, left foot History of Wound: Patient quadriplegic follows up for left plantar fifth MPJ ulceration which started as a pressure ulceration. Patient denies constitutional symptoms pain or any changes since previous visit. Progress of Wound: Patient has a stable full-thickness wound down to bone to the lateral fifth metatarsal head left foot. Subjective Subjective Patient is a 44-year-old quadriplegic male presenting to wound care center todayfollow-up evaluation of full-thickness wound to lateral aspect of the fifth metatarsal. He has left the dressing clean dry and intact. Patient is nonambulatory. He denies any pain or trauma. Denies constitutional symptoms. No other pedal complaints at this time. Objective Data Objective Data Vital Signs: Vital Signs Temp Pulse Resp BP O2 Del Method 98.3 F 51 L 18 158/100 H Room Air 12/22/24 15:06 12/22/24 15:06 12/22/24 15:06 12/22/24 15:06 12/15/24 14:43 Oxygen Delivery Method Room Air Physical Exam Narrative Vascular: DP and PT pulses are palpable to left lower extremity. CFT is brisk. No erythema. Skin temperature is warm to cool from proximal ankle to distal digits to the left extremity. Neurological: Patient is quadriplegic and does not have light touch and does nothave protective sensation. Dermatological: Evidence of full-thickness wound to the lateral aspect of the fifth metatarsal head measuring 0.9 x 1.0 x 1.0 cm. Positive probe to bone. Excisional debridement down to including subcutaneous tissue, muscle, fascia andbone with a number 5 mm dermal curette to the lateral fifth metatarsal head full- thickness wound left foot done without incident. Postdebridement measurement was 0.8 x 0.9 x 0.6 cm. Postdebridement measurement is 0.9 x 1.0 x 1.0 cm. Epi cord 2.0 x 3.0 cm graft was applied and 100% application to the full- thickness wound to the lateral left foot. Fourth application. There was no concern for infection. Bolster dressing was applied followed by dry sterile dressing and compression wrap. Musculoskeletal:No pain to palpation of the full-thickness wound. No pain with calf pressure. Debridement Note Debridement Note Debridement Free Text: Excisional debridement down to including subcutaneous tissue, muscle, fascia and bone with a number 5 mm dermal curette to the lateralfifth metatarsal head full-thickness wound left foot done without incident. Postdebridement measurement was 0.8 x 0.9 x 0.6 cm. Postdebridement measurementis 0.9 x 1.0 x 1.0 cm. Epi cord 2.0 x 3.0 cm graft was applied and 100% application to the full- thickness wound to the lateral left foot. Fourth application. There was no concern for infection. Bolster dressing was applied followed by dry sterile dressing and compression wrap. Post-Debridement Measurements and Additional Note: Post-Debridement Measurements/Treatment - Nurse 1 - General Ulcer Assessment Start: 12/08/24 14:40 Freq: Status: Active Protocol: DANIS Activity Type Activity Date Activity User E-sign Co-sign Detail Recorded Client Recorded Date Recorded By Document 12/15/24 14:43 GM [id number] 12/15/24 14:49 GM Document 12/22/24 15:06 DL [id number] 12/22/24 15:14 DL 12/15/24 12/22/24 14:43 15:06 - Today's Visit Information Type of service Follow-up Visit Follow-up Visit (Physician/GRAPHIC EDITOR (Physician/GRAPHIC EDITOR ) ) Arrival Mode Wheelchair Wheelchair Transfer Assistance None None Accompanied by and aunt Patient Identification Verified (Name & Yes Yes ) Patient Requires Transmission-Based No No Precautions Vital Signs Temperature (97.8 F-99.1 F) 98.6 F 98.3 F Temperature Source Temporal Temporal Pulse Rate (60-100) 64 51 L Pulse Location Monitor Monitor Respiratory Rate (12-18) 16 18 Respiratory rate source Observation Observation Oxygen Delivery Method Room Air Blood Pressure (90/60-120/80) 118/75 158/100 H Blood Pressure Mean (mm Hg) 89 119 Source Monitor Monitor Position Sitting Blood Pressure Location Left Arm History Since Last Visit- (Skip if this is Patient's initial visit) Have you changed medications since your No No last visit? Any new allergies or adverse reactions No No Had a fall/change in ADL's that may No No increase risk of falls Signs or symptoms of abuse and/or No No neglect since last visit Have you been in the hospital since your No No last visit? Has dressing in place as prescribed Yes Yes Has compression in place as prescribed Yes No Has offloadiing in place as prescribed N/A N/A Experienced any changes in pain level or No No management Left Footwear Surgical Shoe with pressure relief insole Right Footwear Regular Shoe Pain Scale: 0-10 Numeric Is Patient Pain Free? Yes Yes - Nurse 1 - General Ulcer Measurement Start: 12/08/24 14:40 Freq: Status: Active Protocol: Activity Type Activity Date Activity User E-sign Co-sign Detail Recorded Client Recorded Date Recorded By Document 12/15/24 14:43 [id number] 12/15/24 14:49 Document 12/22/24 15:06 DL [id number] 12/22/24 15:14 DL 12/15/24 12/22/24 14:43 15:06 Wound Center Nurse 1 #1 lt lat foot -Combined with other wound No -Current Size (cm) - Length 1 1 -Current Size (cm) - Width 1.1 0.8 -Current Size (cm) - Depth 1.3 1.2 -Total Square Cm 1.1 0.8 -Tunneling No -Undermining/Tunneling No -Circular Undermining No -Exudate Amt Medium Small -Exudate Type Serosanguineous Sanguineous -Wound Margin Distinct, Distinct, Outline Outline Attached Attached -Granulation Amt Small (1-33%) Medium (34-66%) -Granulation Quality Red Red -Slough/Fibrin Yes -Necrosis Amt Large (67-100%) Small (1-33%) -Necrotic Tissue Type Eschar Adherent Slough -Structure Exposed N/A -Texture (Livier-wound Skin Appearance) Assessed, Localized Edema Scarring ,Scarring -Moisture (Lviier-wound Skin Appearance) Assessed Maceration -Color (Livier-wound Skin Appearance) Assessed, No Abnormality Erythema -Temperature (Livier-wound Skin No Abnormality No Abnormality Appearance) (Pt Warm) (Pt Warm) -Tenderness on Palpation (Livier-wound No Skin Appearance) -Ulcer Cleansing Rinsed/ Soap and Water Irrigated with Saline -Foul Odor after Cleansing No No -Anesthetic Used 5% Lidocaine Gel WC - Nurse 2 - General Ulcer CM Notes Start: 12/08/24 14:40 Freq: Status: Active Protocol: Activity Type Activity Date Activity User E-sign Co-sign Detail Recorded Client Recorded Date Recorded By Document 12/08/24 14:40 [id number] 12/08/24 14:47 Document 12/15/24 14:56 [id number] 12/15/24 15:00 Document 12/22/24 15:57 DS [id number] 12/22/24 16:04 DS Edit Result 12/22/24 15:57 DS (1) [id number] 12/22/24 16:05 DS (1) #1 lt lat foot - Clinical Debridement Subcutaneous => Muscle / Fascia - Tissue Removed Subcutaneous => Muscle,Fascia - Debridement - Subq, 1st 20sq cm No => - Debridement - Muscle / Fascia, 1st => No 20sq cm 12/08/24 12/15/24 12/22/24 14:40 14:56 15:57 Wound Center Nurse 2 #1 lt lat foot -Time 14:40 14:58 15:57 -Correct Patient Yes Yes Yes -Correct Side, Site, Position Yes Yes Yes -Correct Procedure Yes Yes Yes -Procedure Performed Yes Yes Yes -Type of Procedure Debridement Debridement Debridement -Clinical Debridement Subcutaneous Subcutaneous Muscle / Fascia -Tissue Removed Subcutaneous Subcutaneous Muscle,Fascia -Post Debridement (cm) - Length 1.0 1 0.9 -Post Debridement (cm) - Width 1.0 1 1.0 -Post Debridement (cm) - Depth 1.2 1 1.0 -Total Square (Post) (cm) 1.00 1 0.90 -Area of Debridement (cm) - Length 1.0 1 0.9 -Area of Debridement (cm) - Width 1.0 1 1.0 -Total Square (Area) (cm) 1.00 1 0.90 -Tunneling No No No -Undermining/Tunneling No No No -Circular Undermining No No No -Wound/Ulcer Outcome Not Healed Not Healed Not Healed -Ulcer Cleansing Rinsed/ Rinsed/ Rinsed/ Irrigated with Irrigated with Irrigated with Saline Saline Saline -Foul Odor after Cleansing No No No -Bioengineered Tissue Yes Yes Yes -Type of Bioengineered Tissue Epicord Epicord Epicord -Expiration Date 03/05/29 08/03/29 08/03/29 -Product Lot Number [id number] -Percent Used 100 100 100 -Lot number of Saline Used [id number] -Bleeding Controlled with Pressure Pressure Pressure -Treatment Response Procedure Procedure Procedure Tolerated Well Tolerated Well Tolerated Well -Offloading No Yes -Type of Offloading Surgical Shoe -Debridement - Subq, 1st 20sq cm Yes No -Debridement - Muscle / Fascia, 1st No 20sq cm -Apply Skin Sub - 1st 25 sq cm - Feet 1 1 -Epicord Application 1-4 (per sq cm) 6 6 6 Pain Scale: 0-10 Numeric Is Patient Pain Free? Yes Yes Yes WC - Nurse 3 - General Ulcer D/C NN Start: 12/08/24 14:40 Freq: Status: Active Protocol: Activity Type Activity Date Activity User E-sign Co-sign Detail Recorded Client Recorded Date Recorded By Document 12/15/24 15:06 GM [id number] 12/15/24 15:07 GM Document 12/22/24 16:23 DL [id number] 12/22/24 16:24 DL 12/15/24 12/22/24 15:06 16:23 Wound Care Center Nurse 3 #1 lt lat foot -Ulcer Cleansing Not Cleansed -Foul Odor after Cleansing No No -Primary Dressing Applied Silicone Border Foam 4x4 -Other Dressing Epicord -Primary Dressing Covered/Secured with Dry Gauze & Dry Gauze & Roll Gauze, Roll Gauze Secured with Tape -Other Covering betadine -Silicone Border Foam 4x4 1 LLE -Compression Wrap Reena Wrap Treatment Response Procedure Tolerated Well Pain Scale: 0-10 Numeric Is Patient Pain Free? Yes Yes WC - Visit Discharge Discharge Condition Stable Stable Ambulatory Status Wheelchair Wheelchair Transportation Private Auto Private Auto Assessment/Plan Assessment/Plan (1) Non-pressure chronic ulcer of other part of left foot with necrosis of bone: CODE(S): L97.524 - Non-pressure chronic ulcer of other part of left foot with necrosis of bone PLAN: Patient was examined and evaluated. All findings were discussed with the patient. All questions were answered to the patient's satisfaction. Excisional debridement down to including subcutaneous tissue, muscle, fascia andbone with a number 5 mm dermal curette to the lateral fifth metatarsal head full- thickness wound left foot done without incident. Postdebridement measurement was 0.8 x 0.9 x 0.6 cm. Postdebridement measurement is 0.9 x 1.0 x 1.0 cm. Epi cord 2.0 x 3.0 cm graft was applied and 100% application to the full- thickness wound to the lateral left foot. Fourth application. There was no concern for infection. Bolster dressing was applied followed by dry sterile dressing and compression wrap. Patient will continue Abx until gone. Follow-up at the wound care center with Dr. Shaikh in 1 week. (2) Other hereditary and idiopathic neuropathies: CODE(S): G60.8 - Other hereditary and idiopathic neuropathies 12/23/24 1617 <Electronically signed by Les Shaikh DPM> Cosigner Signature (if applicable): CC: ~ Signed [facility] Work Phone: [phone]) 613-542808-21-2025 Progress note [facility] [address] [place] [address] Progress Note - Wound Care 12/23/24 1613 MR#: [id number] Acct: [id number] Name: MAIDA POLANCO Rep #:[id number] : 1980 44 From: Les Richardson PM PCP: Dr. Markel Bell MD Status:RE G RCR Location: History of Present Illness Date of Service: 12/23/24 Chief Complaint: Full-thickness wound, left foot History of Wound: Patient quadriplegic follows up for left plantar fifth MPJ ulceration which started as a pressure ulceration. Patient denies constitutional symptoms pain or any changes since previous visit. Progress of Wound: Patient has a stable full-thickness wound down to bone to the lateral fifth metatarsal head left foot. Subjective Subjective Patient is a 44-year-old quadriplegic male presenting to wound care center todayfollow-up evaluation of full-thickness wound to lateral aspect of the fifth metatarsal. He has left the dressing clean dry and intact. Patient is nonambulatory. He denies any pain or trauma. Denies constitutional symptoms. No other pedal complaints at this time. Objective Data Objective Data Vital Signs: Vital Signs Temp Pulse Resp BP O2 Del Method 98.3 F 51 L 18 158/100 H Room Air 12/22/24 15:06 12/22/24 15:06 12/22/24 15:06 12/22/24 15:06 12/15/24 14:43 Oxygen Delivery Method Room Air Physical Exam Narrative Vascular: DP and PT pulses are palpable to left lower extremity. CFT is brisk. No erythema. Skin temperature is warm to cool from proximal ankle to distal digits to the left extremity. Neurological: Patient is quadriplegic and does not have light touch and does nothave protective sensation. Dermatological: Evidence of full-thickness wound to the lateral aspect of the fifth metatarsal headmeasuring 0.9 x 1.0 x 1.0 cm. Positive probe to bone. Excisional debridement down to including subcutaneous tissue, muscle, fascia andbone with a number 5 mm dermal curette to the lateral fifth metatarsal head full-thickness wound left foot done withoutincident. Postdebridement measurement was 0.8 x 0.9 x 0.6 cm. Postdebridement measurement is 0.9 x 1.0 x 1.0 cm. Epi cord 2.0 x 3.0 cm graft was applied and 100% application to the full- thickness wound to the lateral left foot. Fourth application. There was no concern for infection. Bolster dressing was appliedfollowed by dry sterile dressing and compression wrap. Musculoskeletal:No pain to palpation of the full-thickness wound. No pain with calf pressure. Debridement Note Debridement Note Debridement Free Text: Excisional debridement down to including subcutaneous tissue, muscle, fasciaand bone with a number 5 mm dermal curette to the lateralfifth metatarsal head full-thickness woundleft foot done without incident. Postdebridement measurement was 0.8 x 0.9 x 0.6 cm. Postdebridement measurementis 0.9 x 1.0 x 1.0 cm. Epi cord 2.0 x 3.0 cm graft was applied and 100% application to the full- thickness wound to the lateral left foot. Fourth application. There was no concern for infection. Bolster dressing was appliedfollowed by dry sterile dressing and compression wrap. Post-Debridement Measurements and Additional Note: Post-Debridement Measurements/Treatment - Nurse 1 - General Ulcer Assessment Start: 12/08/24 14:40 Freq: Status: Active Protocol: .LOWRICK Activity Type Activity Date Activity User E-sign Co-sign Detail Recorded Client Recorded Date Recorded By Document 12/15/24 14:43 [id number] 12/15/24 14:49 Document 12/22/24 15:06 DL [id number] 12/22/24 15:14 DL 12/15/24 12/22/24 14:43 15:06 - Today's Visit Information Type of service Follow-up Visit Follow-up Visit (Physician/GRAPHIC EDITOR (Physician/GRAPHIC EDITOR ) ) Arrival Mode Wheelchair Wheelchair Transfer Assistance None None Accompanied by and aunt Patient Identification Verified (Name & Yes Yes ) Patient Requires Transmission-Based No No Precautions Vital Signs Temperature (97.8 F-99.1 F) 98.6 F 98.3 F Temperature Source Temporal Temporal Pulse Rate (60-100) 64 51 L Pulse Location Monitor Monitor Respiratory Rate (12-18) 16 18 Respiratory rate source Observation Observation Oxygen Delivery Method Room Air Blood Pressure (90/60-120/80) 118/75 158/100 H Blood Pressure Mean (mm Hg) 89 119 Source Monitor Monitor Position Sitting Blood Pressure Location Left Arm History Since Last Visit- (Skip if this is Patient's initial visit) Have you changed medications since your No No last visit? Any new allergies or adverse reactions No No Had a fall/change in ADL's that may No No increase risk of falls Signs or symptoms of abuse and/or No No neglect since last visit Have you been in the hospital since your No No last visit? Has dressing in place as prescribed Yes Yes Has compression in place as prescribed Yes No Has offloadiing in place as prescribed N/A N/A Experienced any changes in pain level or No No management Left Footwear Surgical Shoe with pressure relief insole Right Footwear Regular Shoe Pain Scale: 0-10 Numeric Is Patient Pain Free? Yes Yes - Nurse 1 - General Ulcer Measurement Start: 12/08/24 14:40 Freq: Status: Active Protocol: Activity Type Activity Date Activity User E-sign Co-sign Detail Recorded Client Recorded Date Recorded By Document 12/15/24 14:43 [id number] 12/15/24 14:49 Document 12/22/24 15:06 DL [id number] 12/22/24 15:14 DL 12/15/24 12/22/24 14:43 15:06 Wound Center Nurse 1 #1 lt lat foot -Combined with other wound No -Current Size (cm) - Length 1 1 -Current Size (cm) - Width 1.1 0.8 -Current Size (cm) - Depth 1.3 1.2 -Total Square Cm 1.1 0.8 -Tunneling No -Undermining/Tunneling No -Circular Undermining No -Exudate Amt Medium Small -Exudate Type Serosanguineous Sanguineous -Wound Margin Distinct, Distinct, Outline Outline Attached Attached -Granulation Amt Small (1-33%) Medium (34-66%) -Granulation Quality Red Red -Slough/Fibrin Yes -Necrosis Amt Large (67-100%) Small (1-33%) -Necrotic Tissue Type Eschar Adherent Slough -Structure Exposed N/A -Texture (Livier-wound Skin Appearance) Assessed, Localized Edema Scarring ,Scarring -Moisture (Livier-wound Skin Appearance) Assessed Maceration -Color (Livier-wound Skin Appearance) Assessed, No Abnormality Erythema -Temperature (Livier-wound Skin No Abnormality No Abnormality Appearance) (Pt Warm) (Pt Warm) -Tenderness on Palpation (Livier-wound No Skin Appearance) -Ulcer Cleansing Rinsed/ Soap and Water Irrigated with Saline -Foul Odor after Cleansing No No -Anesthetic Used 5% Lidocaine Gel WC - Nurse 2 - General Ulcer CM Notes Start: 12/08/24 14:40 Freq: Status: Active Protocol: Activity Type Activity Date Activity User E-sign Co-sign Detail Recorded Client Recorded Date Recorded By Document 12/08/24 14:40 [id number] 12/08/24 14:47 Document 12/15/24 14:56 JF [id number] 12/15/24 15:00 Document 12/22/24 15:57 DS [id number] 12/22/24 16:04 DS Edit Result 12/22/24 15:57 DS (1) [id number] 12/22/24 16:05 DS (1) #1 lt lat foot - Clinical Debridement Subcutaneous => Muscle / Fascia - Tissue Removed Subcutaneous => Muscle,Fascia - Debridement - Subq, 1st 20sq cm No => - Debridement - Muscle / Fascia, 1st => No 20sq cm 12/08/24 12/15/24 12/22/24 14:40 14:56 15:57 Wound Center Nurse 2 #1 lt lat foot -Time 14:40 14:58 15:57 -Correct Patient Yes Yes Yes -Correct Side, Site, Position Yes Yes Yes -Correct Procedure Yes Yes Yes -Procedure Performed Yes Yes Yes -Type of Procedure Debridement Debridement Debridement -Clinical Debridement Subcutaneous Subcutaneous Muscle / Fascia -Tissue Removed Subcutaneous Subcutaneous Muscle,Fascia -Post Debridement (cm) - Length 1.0 1 0.9 -Post Debridement (cm) - Width 1.0 1 1.0 -Post Debridement (cm) - Depth 1.2 1 1.0 -Total Square (Post) (cm) 1.00 1 0.90 -Area of Debridement (cm) - Length 1.0 1 0.9 -Area of Debridement (cm) - Width 1.0 1 1.0 -Total Square (Area) (cm) 1.00 1 0.90 -Tunneling No No No -Undermining/Tunneling No No No -Circular Undermining No No No -Wound/Ulcer Outcome Not Healed Not Healed Not Healed -Ulcer Cleansing Rinsed/ Rinsed/ Rinsed/ Irrigated with Irrigated with Irrigated with Saline Saline Saline -Foul Odor after Cleansing No No No -Bioengineered Tissue Yes Yes Yes -Type of Bioengineered Tissue Epicord Epicord Epicord -Expiration Date 03/05/29 08/03/29 08/03/29 -Product Lot Number [id number] -Percent Used 100 100 100 -Lot number of Saline Used [id number] -Bleeding Controlled with Pressure Pressure Pressure -Treatment Response Procedure Procedure Procedure Tolerated Well Tolerated Well Tolerated Well -Offloading No Yes -Type of Offloading Surgical Shoe -Debridement - Subq, 1st 20sq cm Yes No -Debridement - Muscle / Fascia, 1st No 20sq cm -Apply Skin Sub - 1st 25 sq cm - Feet 1 1 -Epicord Application 1-4 (per sq cm) 6 6 6 Pain Scale: 0-10 Numeric Is Patient Pain Free? Yes Yes Yes - Nurse 3 - General Ulcer D/C NN Start: 12/08/24 14:40 Freq: Status: Active Protocol: Activity Type Activity Date Activity User E-sign Co-sign Detail Recorded Client Recorded Date Recorded By Document 12/15/24 15:06 [id number] 12/15/24 15:07 Document 12/22/24 16:23 DL [id number] 12/22/24 16:24 DL 12/15/24 12/22/24 15:06 16:23 Wound Care Center Nurse 3 #1 lt lat foot -Ulcer Cleansing Not Cleansed -Foul Odor after Cleansing No No -Primary Dressing Applied Silicone Border Foam 4x4 -Other Dressing Epicord -Primary Dressing Covered/Secured with Dry Gauze & Dry Gauze & Roll Gauze, Roll Gauze Secured with Tape -Other Covering betadine -Silicone Border Foam 4x4 1 LLE -Compression Wrap Reena Wrap Treatment Response Procedure Tolerated Well Pain Scale: 0-10 Numeric Is Patient Pain Free? Yes Yes - Visit Discharge Discharge Condition Stable Stable Ambulatory Status Wheelchair Wheelchair Transportation Private Auto Private Auto Assessment/Plan Assessment/Plan (1) Non-pressure chronic ulcer of other part of left foot with necrosis of bone: CODE(S): L97.524 - Non-pressure chronic ulcer of other part of left foot with necrosis of bone PLAN: Patient was examined and evaluated. All findings were discussed with the patient. All questions were answered to the patient's satisfaction. Excisional debridement down to including subcutaneous tissue, muscle, fascia andbone with a number 5 mm dermal curette to the lateral fifth metatarsal head full-thickness wound left foot done withoutincident. Postdebridement measurement was 0.8 x 0.9 x 0.6 cm. Postdebridement measurement is 0.9 x 1.0 x 1.0 cm. Epi cord 2.0 x 3.0 cm graft was applied and 100% application to the full- thickness wound to the lateral left foot. Fourth application. There was no concern for infection. Bolster dressing was appliedfollowed by dry sterile dressing and compression wrap. Patient will continue Abx until gone. Follow-up at the wound care center with Dr. Shaikh in 1 week. (2) Other hereditary and idiopathic neuropathies: CODE(S): G60.8 - Other hereditary and idiopathic neuropathies 12/23/24 1617 Cosigner Signature (if applicable): CC: ~ Signed [facility]08-13-2025 Progress note Author Les Shaikh [facility] Note Date/Time December 15, 2024 7: 44pm [facility] [address] [place] [address] Progress Note - Wound Care 12/15/241938 MR#: [id number] Acct: [id number] Name: MAIDA POLANCO Rep #:[id number] : 1980 44 From: Les SORIANO PCP: Dr. Markel Bell MD Status:RE G RCR Location: History of Present Illness Date of Service: 12/15/24 Chief Complaint: Full-thickness wound, left foot History of Wound: Patient quadriplegic follows up for left plantar fifth MPJ ulceration which started as a pressure ulceration. Patient denies constitutional symptoms pain or any changes since previous visit. Progress of Wound: Patient has a stable full-thickness wound down to bone to the lateral fifth metatarsal head left foot. Subjective Subjective Patient is a 45-year-old quadriplegic male presenting to clinic today for follow-up evaluation of full-thickness wound down to bone to the lateral aspect of the subfifth metatarsal head left foot with amnion skin graft substitute. Heis left the skin graft clean dry and intact. He denies any strikethrough or further breakdown. He is taking antibiotics as prescribed. He denies trauma. Denies constitutional symptoms. No other pedal complaints at this time. Objective Data Objective Data Vital Signs: Vital Signs Temp Pulse Resp BP O2 Del Method 98.6 F 64 16 118/75 Room Air 12/15/24 14:43 12/15/24 14:43 12/15/24 14:43 12/15/24 14:43 12/15/24 14:43 Oxygen Delivery Method Room Air Lab / Micro Data Micro: Microbiology 11/03/24 13:47 Ulcer, Decubitus - Left Foot Gram Stain - Final 11/03/24 13:47 Ulcer, Decubitus - Left Foot Wound Culture - Final Staphylococcus caprae Proteus mirabilis 11/03/24 13:47 Ulcer, Decubitus - Left Foot Anaerobic Culture - Final No anaerobic bacteria isolated. Physical Exam Narrative Vascular: DP and PT pulses are palpable to left lower extremity. CFT is brisk. No erythema. Skin temperature is warm to cool from proximal ankle to distal digits to the left extremity. Neurological: Patient is quadriplegic and does not have light touch and does nothave protective sensation. Dermatological: Evidence of full-thickness wound to the lateral aspect of the fifth metatarsal head measuring 1.0 x 1.0 x 1.0 cm. Positive probe to bone. Excisional debridement down to including subcutaneous tissue, muscle, fascia andbone with a number 5 mm dermal curette to the lateral fifth metatarsal head full- thickness wound left foot done without incident. Postdebridement measurement was 0.9 x 0.9 x 0.7 cm. Postoperative measurement is 1.0 x 1.0 x 1.0 cm. Epi cord 2.0 x 3.0 cm graft was applied and 100% application to the full- thickness wound to the lateral left foot. Third application. There was no concern for infection. Bolster dressing was applied followed by dry sterile dressing and compression wrap. Musculoskeletal:No pain to palpation of the full-thickness wound. No pain with calf pressure. Debridement Note Debridement Note Debridement Free Text: Excisional debridement down to including subcutaneous tissue, muscle, fascia and bone with a number 5 mm dermal curette to the lateralfifth metatarsal head full-thickness wound left foot done without incident. Postdebridement measurement was 0.9 x 0.9 x 0.7 cm. Postoperative measurement is 1.0 x 1.0 x 1.0 cm. Epi cord 2.0 x 3.0 cm graft was applied and 100% application to the full- thickness wound to the lateral left foot. Third application. There was no concern for infection. Bolster dressing was applied followed by dry sterile dressing and compression wrap. Post-Debridement Measurements and Additional Note: Post-Debridement Measurements/Treatment - Nurse 1 - General Ulcer Assessment Start: 12/08/24 14:40 Freq: Status: Active Protocol: DANIS Activity Type Activity Date Activity User E-sign Co-sign Detail Recorded Client Recorded Date Recorded By Document 12/15/24 14:43 [id number] 12/15/24 14:49 12/15/24 14:43 - Today's Visit Information Type of service Follow-up Visit (Physician/GRAPHIC EDITOR ) Arrival Mode Wheelchair Transfer Assistance None Accompanied by and aunt Patient Identification Verified (Name & Yes ) Patient Requires Transmission-Based No Precautions Vital Signs Temperature (97.8 F-99.1 F) 98.6 F Temperature Source Temporal Pulse Rate (60-100) 64 Pulse Location Monitor Respiratory Rate (12-18) 16 Respiratory rate source Observation Oxygen Delivery Method Room Air Blood Pressure (90/60-120/80) 118/75 Blood Pressure Mean (mm Hg) 89 Source Monitor Position Sitting Blood Pressure Location Left Arm History Since Last Visit- (Skip if this is Patient's initial visit) Have you changed medications since your No last visit? Any new allergies or adverse reactions No Had a fall/change in ADL's that may No increase risk of falls Signs or symptoms of abuse and/or No neglect since last visit Have you been in the hospital since your No last visit? Has dressing in place as prescribed Yes Has compression in place as prescribed Yes Has offloadiing in place as prescribed N/A Experienced any changes in pain level or No management Left Footwear Surgical Shoe with pressure relief insole Right Footwear Regular Shoe Pain Scale: 0-10 Numeric Is Patient Pain Free? Yes - Nurse 1 - General Ulcer Measurement Start: 12/08/24 14:40 Freq: Status: Active Protocol: Activity Type Activity Date Activity User E-sign Co-sign Detail Recorded Client Recorded Date Recorded By Document 12/15/24 14:43 [id number] 12/15/24 14:49 12/15/24 14:43 Wound Center Nurse 1 #1 lt lat foot -Combined with other wound No -Current Size (cm) - Length 1 -Current Size (cm) - Width 1.1 -Current Size (cm) - Depth 1.3 -Total Square Cm 1.1 -Tunneling No -Undermining/Tunneling No -Circular Undermining No -Exudate Amt Medium -Exudate Type Serosanguineous -Wound Margin Distinct, Outline Attached -Granulation Amt Small (1-33%) -Granulation Quality Red -Slough/Fibrin Yes -Necrosis Amt Large (67-100%) -Necrotic Tissue Type Eschar -Texture (Livier-wound Skin Appearance) Assessed, Scarring -Moisture (Livier-wound Skin Appearance) Assessed -Color (Livier-wound Skin Appearance) Assessed, Erythema -Temperature (Livier-wound Skin No Abnormality Appearance) (Pt Warm) -Tenderness on Palpation (Livier-wound No Skin Appearance) -Ulcer Cleansing Rinsed/ Irrigated with Saline -Foul Odor after Cleansing No -Anesthetic Used 5% Lidocaine Gel - Nurse 2 - General Ulcer CM Notes Start: 12/08/24 14:40 Freq: Status: Active Protocol: Activity Type Activity Date Activity User E-sign Co-sign Detail Recorded Client Recorded Date Recorded By Document 12/08/24 14:40 [id number] 12/08/24 14:47 Document 12/15/24 14:56 [id number] 12/15/24 15:00 12/08/24 12/15/24 14:40 14:56 Wound Center Nurse 2 #1 lt lat foot -Time 14:40 14:58 -Correct Patient Yes Yes -Correct Side, Site, Position Yes Yes -Correct Procedure Yes Yes -Procedure Performed Yes Yes -Type of Procedure Debridement Debridement -Clinical Debridement Subcutaneous Subcutaneous -Tissue Removed Subcutaneous Subcutaneous -Post Debridement (cm) - Length 1.0 1 -Post Debridement (cm) - Width 1.0 1 -Post Debridement (cm) - Depth 1.2 1 -Total Square (Post) (cm) 1.00 1 -Area of Debridement (cm) - Length 1.0 1 -Area of Debridement (cm) - Width 1.0 1 -Total Square (Area) (cm) 1.00 1 -Tunneling No No -Undermining/Tunneling No No -Circular Undermining No No -Wound/Ulcer Outcome Not Healed Not Healed -Ulcer Cleansing Rinsed/ Rinsed/ Irrigated with Irrigated with Saline Saline -Foul Odor after Cleansing No No -Bioengineered Tissue Yes Yes -Type of Bioengineered Tissue Epicord Epicord -Expiration Date 03/05/29 08/03/29 -Product Lot Number [id number] -Percent Used 100 100 -Lot number of Saline Used [id number] -Bleeding Controlled with Pressure Pressure -Treatment Response Procedure Procedure Tolerated Well Tolerated Well -Offloading No Yes -Type of Offloading Surgical Shoe -Debridement - Subq, 1st 20sq cm Yes No -Apply Skin Sub - 1st 25 sq cm - Feet 1 -Epicord Application 1-4 (per sq cm) 6 6 Pain Scale: 0-10 Numeric Is Patient Pain Free? Yes Yes - Nurse 3 - General Ulcer D/C NN Start: 12/08/24 14:40 Freq: Status: Active Protocol: Activity Type Activity Date Activity User E-sign Co-sign Detail Recorded Client Recorded Date Recorded By Document 12/15/24 15:06 [id number] 12/15/24 15:07 12/15/24 15:06 Wound Care Center Nurse 3 #1 lt lat foot -Ulcer Cleansing Not Cleansed -Foul Odor after Cleansing No -Primary Dressing Applied Silicone Border Foam 4x4 -Primary Dressing Covered/Secured with Dry Gauze & Roll Gauze, Secured with Tape -Silicone Border Foam 4x4 1 LLE -Compression Wrap Reena Wrap Pain Scale: 0-10 Numeric Is Patient Pain Free? Yes - Visit Discharge Discharge Condition Stable Ambulatory Status Wheelchair Transportation Private Auto Assessment/Plan Assessment/Plan (1) Non-pressure chronic ulcer of other part of left foot with necrosis of bone: CODE(S): L97.524 - Non-pressure chronic ulcer of other part of left foot with necrosis of bone PLAN: Patient was examined and evaluated. All findings were discussed with the patient. All questions were answered to the patient's satisfaction. Excisional debridement down to including subcutaneous tissue, muscle, fascia andbone with a number 5 mm dermal curette to the lateral fifth metatarsal head full- thickness wound left foot done without incident. Postdebridement measurement was 0.9 x 0.9 x 0.7 cm. Postoperative measurement is 1.0 x 1.0 x 1.0 cm. Epi cord 2.0 x 3.0 cm graft was applied and 100% application to the full- thickness wound to the lateral left foot. Third application. There was no concern for infection. Bolster dressing was applied followed by dry sterile dressing and compression wrap. Patient will continue Abx until gone. Follow-up at the wound care center with Dr. Shaikh in 1 week. (2) Other hereditary and idiopathic neuropathies: CODE(S): G60.8 - Other hereditary and idiopathic neuropathies 12/15/241943 <Electronically signed by Les Shaikh DPM> Cosigner Signature (if applicable): CC: ~ Signed [facility] Work Phone: [phone] Progress note [facility] [address] [place] [address] Progress Note - Wound Care 12/15/241938 MR#: [id number] Acct: [id number] Name: MAIDA POLANCO Rep #:[id number] : 1980 44 From: Les SORIANO PCP: Dr. Markel Bell MD Status:RE G RCR Location: History of Present Illness Date of Service: 12/15/24 Chief Complaint: Full-thickness wound, left foot History of Wound: Patient quadriplegic follows up for left plantar fifth MPJ ulceration which started as a pressure ulceration. Patient denies constitutional symptoms pain or any changes since previous visit. Progress of Wound: Patient has a stable full-thickness wound down to bone to the lateral fifth metatarsal head left foot. Subjective Subjective Patient is a 45-year-old quadriplegic male presenting to clinic today for follow-up evaluation of full-thickness wound down to bone to the lateral aspect of the subfifth metatarsal head left foot with amnion skin graft substitute. Heis left the skin graft clean dry and intact. He denies any strikethrough or further breakdown. He is taking antibiotics as prescribed. He denies trauma. Denies constitutional symptoms. No other pedal complaints at this time. Objective Data Objective Data Vital Signs: Vital Signs Temp Pulse Resp BP O2 Del Method 98.6 F 64 16 118/75 Room Air 12/15/24 14:43 12/15/24 14:43 12/15/24 14:43 12/15/24 14:43 12/15/24 14:43 Oxygen Delivery Method Room Air Lab / Micro Data Micro: Microbiology 11/03/24 13:47 Ulcer, Decubitus - Left Foot Gram Stain - Final 11/03/24 13:47 Ulcer, Decubitus - Left Foot Wound Culture - Final Staphylococcus caprae Proteus mirabilis 11/03/24 13:47 Ulcer, Decubitus - Left Foot Anaerobic Culture - Final No anaerobic bacteria isolated. Physical Exam Narrative Vascular: DP and PT pulses are palpable to left lower extremity. CFT is brisk. No erythema. Skin temperature is warm to cool from proximal ankle to distal digits to the left extremity. Neurological: Patient is quadriplegic and does not have light touch and does nothave protective sensation. Dermatological: Evidence of full-thickness wound to the lateral aspect of the fifth metatarsal headmeasuring 1.0 x 1.0 x 1.0 cm. Positive probe to bone. Excisional debridement down to including subcutaneous tissue, muscle, fascia andbone with a number 5 mm dermal curette to the lateral fifth metatarsal head full-thickness wound left foot done withoutincident. Postdebridement measurement was 0.9 x 0.9 x 0.7 cm. Postoperative measurement is 1.0 x 1.0 x 1.0 cm. Epi cord 2.0 x 3.0 cm graft was applied and 100% application to the full- thickness wound to the lateral left foot. Third application. There was no concern for infection. Bolster dressing was applied followed by dry sterile dressing and compression wrap. Musculoskeletal:No pain to palpation of the full-thickness wound. No pain with calf pressure. Debridement Note Debridement Note Debridement Free Text: Excisional debridement down to including subcutaneous tissue, muscle, fasciaand bone with a number 5 mm dermal curette to the lateralfifth metatarsal head full-thickness woundleft foot done without incident. Postdebridement measurement was 0.9 x 0.9 x 0.7 cm. Postoperative m easurement is 1.0 x 1.0 x 1.0 cm. Epi cord 2.0 x 3.0 cm graft was applied and 100% application to the full- thickness wound to the lateral left foot. Third application. There was no concern for infection. Bolster dressing was applied followed by dry sterile dressing and compression wrap. Post-Debridement Measurements and Additional Note: Post-Debridement Measurements/Treatment - Nurse 1 - General Ulcer Assessment Start: 12/08/24 14:40 Freq: Status: Active Protocol: DANIS Activity Type Activity Date Activity User E-sign Co-sign Detail Recorded Client Recorded Date Recorded By Document 12/15/24 14:43 [id number] 12/15/24 14:49 12/15/24 14:43 - Today's Visit Information Type of service Follow-up Visit (Physician/GRAPHIC EDITOR ) Arrival Mode Wheelchair Transfer Assistance None Accompanied by and aunt Patient Identification Verified (Name & Yes ) Patient Requires Transmission-Based No Precautions Vital Signs Temperature (97.8 F-99.1 F) 98.6 F Temperature Source Temporal Pulse Rate (60-100) 64 Pulse Location Monitor Respiratory Rate (12-18) 16 Respiratory rate source Observation Oxygen Delivery Method Room Air Blood Pressure (90/60-120/80) 118/75 Blood Pressure Mean (mm Hg) 89 Source Monitor Position Sitting Blood Pressure Location Left Arm History Since Last Visit- (Skip if this is Patient's initial visit) Have you changed medications since your No last visit? Any new allergies or adverse reactions No Had a fall/change in ADL's that may No increase risk of falls Signs or symptoms of abuse and/or No neglect since last visit Have you been in the hospital since your No last visit? Has dressing in place as prescribed Yes Has compression in place as prescribed Yes Has offloadiing in place as prescribed N/A Experienced any changes in pain level or No management Left Footwear Surgical Shoe with pressure relief insole Right Footwear Regular Shoe Pain Scale: 0-10 Numeric Is Patient Pain Free? Yes - Nurse 1 - General Ulcer Measurement Start: 12/08/24 14:40 Freq: Status: Active Protocol: Activity Type Activity Date Activity User E-sign Co-sign Detail Recorded Client Recorded Date Recorded By Document 12/15/24 14:43 [id number] 12/15/24 14:49 12/15/24 14:43 Wound Center Nurse 1 #1 lt lat foot -Combined with other wound No -Current Size (cm) - Length 1 -Current Size (cm) - Width 1.1 -Current Size (cm) - Depth 1.3 -Total Square Cm 1.1 -Tunneling No -Undermining/Tunneling No -Circular Undermining No -Exudate Amt Medium -Exudate Type Serosanguineous -Wound Margin Distinct, Outline Attached -Granulation Amt Small (1-33%) -Granulation Quality Red -Slough/Fibrin Yes -Necrosis Amt Large (67-100%) -Necrotic Tissue Type Eschar -Texture (Livier-wound Skin Appearance) Assessed, Scarring -Moisture (Livier-wound Skin Appearance) Assessed -Color (Livier-wound Skin Appearance) Assessed, Erythema -Temperature (Livier-wound Skin No Abnormality Appearance) (Pt Warm) -Tenderness on Palpation (Livier-wound No Skin Appearance) -Ulcer Cleansing Rinsed/ Irrigated with Saline -Foul Odor after Cleansing No -Anesthetic Used 5% Lidocaine Gel WC - Nurse 2 - General Ulcer CM Notes Start: 12/08/24 14:40 Freq: Status: Active Protocol: Activity Type Activity Date Activity User E-sign Co-sign Detail Recorded Client Recorded Date Recorded By Document 12/08/24 14:40 [id number] 12/08/24 14:47 Document 12/15/24 14:56 [id number] 12/15/24 15:00 12/08/24 12/15/24 14:40 14:56 Wound Center Nurse 2 #1 lt lat foot -Time 14:40 14:58 -Correct Patient Yes Yes -Correct Side, Site, Position Yes Yes -Correct Procedure Yes Yes -Procedure Performed Yes Yes -Type of Procedure Debridement Debridement -Clinical Debridement Subcutaneous Subcutaneous -Tissue Removed Subcutaneous Subcutaneous -Post Debridement (cm) - Length 1.0 1 -Post Debridement (cm) - Width 1.0 1 -Post Debridement (cm) - Depth 1.2 1 -Total Square (Post) (cm) 1.00 1 -Area of Debridement (cm) - Length 1.0 1 -Area of Debridement (cm) - Width 1.0 1 -Total Square (Area) (cm) 1.00 1 -Tunneling No No -Undermining/Tunneling No No -Circular Undermining No No -Wound/Ulcer Outcome Not Healed Not Healed -Ulcer Cleansing Rinsed/ Rinsed/ Irrigated with Irrigated with Saline Saline -Foul Odor after Cleansing No No -Bioengineered Tissue Yes Yes -Type of Bioengineered Tissue Epicord Epicord -Expiration Date 03/05/29 08/03/29 -Product Lot Number [id number] -Percent Used 100 100 -Lot number of Saline Used [id number] -Bleeding Controlled with Pressure Pressure -Treatment Response Procedure Procedure Tolerated Well Tolerated Well -Offloading No Yes -Type of Offloading Surgical Shoe -Debridement - Subq, 1st 20sq cm Yes No -Apply Skin Sub - 1st 25 sq cm - Feet 1 -Epicord Application 1-4 (per sq cm) 6 6 Pain Scale: 0-10 Numeric Is Patient Pain Free? Yes Yes - Nurse 3 - General Ulcer D/C NN Start: 12/08/24 14:40 Freq: Status: Active Protocol: Activity Type Activity Date Activity User E-sign Co-sign Detail Recorded Client Recorded Date Recorded By Document 12/15/24 15:06 [id number] 12/15/24 15:07 12/15/24 15:06 Wound Care Center Nurse 3 #1 lt lat foot -Ulcer Cleansing Not Cleansed -Foul Odor after Cleansing No -Primary Dressing Applied Silicone Border Foam 4x4 -Primary Dressing Covered/Secured with Dry Gauze & Roll Gauze, Secured with Tape -Silicone Border Foam 4x4 1 LLE -Compression Wrap Reena Wrap Pain Scale: 0-10 Numeric Is Patient Pain Free? Yes - Visit Discharge Discharge Condition Stable Ambulatory Status Wheelchair Transportation Private Auto Assessment/Plan Assessment/Plan (1) Non-pressure chronic ulcer of other part of left foot with necrosis of bone: CODE(S): L97.524 - Non-pressure chronic ulcer of other part of left foot with necrosis of bone PLAN: Patient was examined and evaluated. All findings were discussed with the patient. All questions were answered to the patient's satisfaction. Excisional debridement down to including subcutaneous tissue, muscle, fascia andbone with a number 5 mm dermal curette to the lateral fifth metatarsal head full-thickness wound left foot done withoutincident. Postdebridement measurement was 0.9 x 0.9 x 0.7 cm. Postoperative measurement is 1.0 x 1.0 x 1.0 cm. Epi cord 2.0 x 3.0 cm graft was applied and 100% application to the full- thickness wound to the lateral left foot. Third application. There was no concern for infection. Bolster dressing was applied followed by dry sterile dressing and compression wrap. Patient will continue Abx until gone. Follow-up at the wound care center with Dr. Shaikh in 1 week. (2) Other hereditary and idiopathic neuropathies: CODE(S): G60.8 - Other hereditary and idiopathic neuropathies 12/15/241943 Cosigner Signature (if applicable): CC: ~ Signed [facility]08-07-2025 Progress note Author Les Shaikh [facility] Note Date/Time December 09, 2024 11: 12am [facility] [address] [place] [address] Progress Note - Wound Care 12/09/24 1110 MR#: [id number] Acct: [id number] Name: MAIDA POLANCO Rep #:[id number] : 1980 44 From: Les Richardson PM PCP: Dr. Markel Bell MD Status:[facility] Location: History of Present Illness Date of Service: 12/08/24 Chief Complaint: Full-thickness wound, left foot History of Wound: Patient quadriplegic follows up for left plantar fifth MPJ ulceration which started as a pressure ulceration. Patient denies constitutional symptoms pain or any changes since previous visit. Progress of Wound: Patient has a stable full-thickness wound down to bone to the lateral fifth metatarsal head left foot. Subjective Subjective Patient is a 44 years old male presenting to wound care center today follow-up evaluation of full-thickness wound down to bone to the lateral aspect of fifth metatarsal head with amnion skin graft substitute. Patient is left dressing clean dry and intact. He is nonambulatory and quadriplegic due to trauma. Patient has taken his antibiotics as prescribed. Erythema has improved. He denies any new onset of trauma. Denies constitutional symptoms. No other pedalcomplaints at this time. Objective Data Objective Data Vital Signs: Vital Signs Temp Pulse Resp BP O2 Del Method 97.3 F L 49 L 16 124/67 H Room Air 12/01/24 13:39 12/01/24 13:39 12/01/24 13:39 12/01/24 13:39 12/01/24 13:39 Oxygen Delivery Method Room Air Lab / Micro Data Micro: Microbiology 11/03/24 13:47 Ulcer, Decubitus - Left Foot Gram Stain - Final 11/03/24 13:47 Ulcer, Decubitus - Left Foot Wound Culture - Final Staphylococcus caprae Proteus mirabilis 11/03/24 13:47 Ulcer, Decubitus - Left Foot Anaerobic Culture - Final No anaerobic bacteria isolated. Physical Exam Narrative Vascular: DP and PT pulses are palpable to left lower extremity. CFT is brisk. No erythema. Skin temperature is warm to cool from proximal ankle to distal digits to the left extremity. Neurological: Patient is quadriplegic and does not have light touch and does nothave protective sensation. Dermatological: Evidence of full-thickness wound to the lateral aspect of the fifth metatarsal head measuring 1.0 x 1.0 x 1.2 cm. Positive probe to bone. Excisional debridement down to including subcutaneous tissue, muscle, fascia andbone with a number 5 mm dermal curette to the lateral fifth metatarsal head full- thickness wound left foot done without incident. Postdebridement measurement was 0.9 x 0.8 x 0.5 cm. Postoperative measurement is 1.0 x 1.0 x 1.2 cm. Epi cord 2.0 x 3.0 cm graft was applied and 100% application to the full- thickness wound to the lateral left foot. second application. There was no concern for infection. Bolster dressing was applied followed by dry sterile dressing and compression wrap. Musculoskeletal:No pain to palpation of the full-thickness wound. No pain with calf pressure. Debridement Note Debridement Note Debridement Free Text: Excisional debridement down to including subcutaneous tissue, muscle, fascia and bone with a number 5 mm dermal curette to the lateralfifth metatarsal head full-thickness wound left foot done without incident. Postdebridement measurement was 0.9 x 0.8 x 0.5 cm. Postoperative measurement is 1.0 x 1.0 x 1.2 cm. Epi cord 2.0 x 3.0 cm graft was applied and 100% application to the full- thickness wound to the lateral left foot. second application. There was no concern for infection. Bolster dressing was applied followed by dry sterile dressing and compression wrap. Post-Debridement Measurements and Additional Note: Post-Debridement Measurements/Treatment WC - Nurse 2 - General Ulcer CM Notes Start: 12/08/24 14:40 Freq: Status: Active Protocol: Activity Type Activity Date Activity User E-sign Co-sign Detail Recorded Client Recorded Date Recorded By Document 12/08/24 14:40 [id number] 12/08/24 14:47 12/08/24 14:40 Wound Center Nurse 2 #1 lt lat foot -Time 14:40 -Correct Patient Yes -Correct Side, Site, Position Yes -Correct Procedure Yes -Procedure Performed Yes -Type of Procedure Debridement -Clinical Debridement Subcutaneous -Tissue Removed Subcutaneous -Post Debridement (cm) - Length 1.0 -Post Debridement (cm) - Width 1.0 -Post Debridement (cm) - Depth 1.2 -Total Square (Post) (cm) 1.00 -Area of Debridement (cm) - Length 1.0 -Area of Debridement (cm) - Width 1.0 -Total Square (Area) (cm) 1.00 -Tunneling No -Undermining/Tunneling No -Circular Undermining No -Wound/Ulcer Outcome Not Healed -Ulcer Cleansing Rinsed/ Irrigated with Saline -Foul Odor after Cleansing No -Bioengineered Tissue Yes -Type of Bioengineered Tissue Epicord -Expiration Date 03/05/29 -Product Lot Number [id number] -Percent Used 100 -Lot number of Saline Used [id number] -Bleeding Controlled with Pressure -Treatment Response Procedure Tolerated Well -Offloading No -Debridement - Subq, 1st 20sq cm Yes -Epicord Application 1-4 (per sq cm) 6 Pain Scale: 0-10 Numeric Is Patient Pain Free? Yes Assessment/Plan Assessment/Plan (1) Non-pressure chronic ulcer of other part of left foot with necrosis of bone: CODE(S): L97.524 - Non-pressure chronic ulcer of other part of left foot with necrosis of bone PLAN: Patient was examined and evaluated. All findings were discussed with the patient. All questions were answered to the patient's satisfaction. Excisional debridement down to including subcutaneous tissue, muscle, fascia andbone with a number 5 mm dermal curette to the lateral fifth metatarsal head full- thickness wound left foot done without incident. Postdebridement measurement was 0.9 x 0.8 x 0.5 cm. Postoperative measurement is 1.0 x 1.0 x 1.2 cm. Epi cord 2.0 x 3.0 cm graft was applied and 100% application to the full- thickness wound to the lateral left foot. second application. There was no concern for infection. Bolster dressing was applied followed by dry sterile dressing and compression wrap. Patient will continue Abx until gone. Follow-up at the wound care center with Dr. Shaikh in 1 week. (2) Other hereditary and idiopathic neuropathies: CODE(S): G60.8 - Other hereditary and idiopathic neuropathies 12/09/24 1112 <Electronically signed by Les Shaikh DPMychal> Cosigner Signature (if applicable): CC: ~ Signed [facility] Work Phone: 1(623) 215-871108-07-2025 Progress note [facility] [address] [place] [address] Progress Note - Wound Care 12/09/24 1110 MR#: [id number] Acct: [id number] Name: MAIDA POLANCO Rep #:[id number] : 1980 44 From: Les Richardson PM PCP: Dr. Markel Bell MD Status:RE G R Location: History of Present Illness Date of Service: 12/08/24 Chief Complaint: Full-thickness wound, left foot History of Wound: Patient quadriplegic follows up for left plantar fifth MPJ ulceration which started as a pressure ulceration. Patient denies constitutional symptoms pain or any changes since previous visit. Progress of Wound: Patient has a stable full-thickness wound down to bone to the lateral fifth metatarsal head left foot. Subjective Subjective Patient is a 44 years old male presenting to wound care center today follow-up evaluation of full-thickness wound down to bone to the lateral aspect of fifth metatarsal head with amnion skin graft substitute. Patient is left dressing clean dry and intact. He is nonambulatory and quadriplegic due totrauma. Patient has taken his antibiotics as prescribed. Erythema has improved. He denies any new onset of trauma. Denies constitutional symptoms. No other pedalcomplaints at this time. Objective Data Objective Data Vital Signs: Vital Signs Temp Pulse Resp BP O2 Del Method 97.3 F L 49 L 16 124/67 H Room Air 12/01/24 13:39 12/01/24 13:39 12/01/24 13:39 12/01/24 13:39 12/01/24 13:39 Oxygen Delivery Method Room Air Lab / Micro Data Micro: Microbiology 11/03/24 13:47 Ulcer, Decubitus - Left Foot Gram Stain - Final 11/03/24 13:47 Ulcer, Decubitus - Left Foot Wound Culture - Final Staphylococcus caprae Proteus mirabilis 11/03/24 13:47 Ulcer, Decubitus - Left Foot Anaerobic Culture - Final No anaerobic bacteria isolated. Physical Exam Narrative Vascular: DP and PT pulses are palpable to left lower extremity. CFT is brisk. No erythema. Skin temperature is warm to cool from proximal ankle to distal digits to the left extremity. Neurological: Patient is quadriplegic and does not have light touch and does nothave protective sensation. Dermatological: Evidence of full-thickness wound to the lateral aspect of the fifth metatarsal headmeasuring 1.0 x 1.0 x 1.2 cm. Positive probe to bone. Excisional debridement down to including subcutaneous tissue, muscle, fascia andbone with a number 5 mm dermal curette to the lateral fifth metatarsal head full-thickness wound left foot done withoutincident. Postdebridement measurement was 0.9 x 0.8 x 0.5 cm. Postoperative measurement is 1.0 x 1.0 x 1.2 cm. Epi cord 2.0 x 3.0 cm graft was applied and 100% application to the full- thickness wound to the lateral left foot. second application. There was no concern for infection. Bolster dressing was appliedfollowed by dry sterile dressing and compression wrap. Musculoskeletal:No pain to palpation of the full-thickness wound. No pain with calf pressure. Debridement Note Debridement Note Debridement Free Text: Excisional debridement down to including subcutaneous tissue, muscle, fasciaand bone with a number 5 mm dermal curette to the lateralfifth metatarsal head full-thickness woundleft foot done without incident. Postdebridement measurement was 0.9 x 0.8 x 0.5 cm. Postoperative m easurement is 1.0 x 1.0 x 1.2 cm. Epi cord 2.0 x 3.0 cm graft was applied and 100% application to the full- thickness wound to the lateral left foot. second application. There was no concern for infection. Bolster dressing was appliedfollowed by dry sterile dressing and compression wrap. Post-Debridement Measurements and Additional Note: Post-Debridement Measurements/Treatment WC - Nurse 2 - General Ulcer CM Notes Start: 12/08/24 14:40 Freq: Status: Active Protocol: Activity Type Activity Date Activity User E-sign Co-sign Detail Recorded Client Recorded Date Recorded By Document 12/08/24 14:40 [id number] 12/08/24 14:47 12/08/24 14:40 Wound Center Nurse 2 #1 lt lat foot -Time 14:40 -Correct Patient Yes -Correct Side, Site, Position Yes -Correct Procedure Yes -Procedure Performed Yes -Type of Procedure Debridement -Clinical Debridement Subcutaneous -Tissue Removed Subcutaneous -Post Debridement (cm) - Length 1.0 -Post Debridement (cm) - Width 1.0 -Post Debridement (cm) - Depth 1.2 -Total Square (Post) (cm) 1.00 -Area of Debridement (cm) - Length 1.0 -Area of Debridement (cm) - Width 1.0 -Total Square (Area) (cm) 1.00 -Tunneling No -Undermining/Tunneling No -Circular Undermining No -Wound/Ulcer Outcome Not Healed -Ulcer Cleansing Rinsed/ Irrigated with Saline -Foul Odor after Cleansing No -Bioengineered Tissue Yes -Type of Bioengineered Tissue Epicord -Expiration Date 03/05/29 -Product Lot Number [id number] -Percent Used 100 -Lot number of Saline Used [id number] -Bleeding Controlled with Pressure -Treatment Response Procedure Tolerated Well -Offloading No -Debridement - Subq, 1st 20sq cm Yes -Epicord Application 1-4 (per sq cm) 6 Pain Scale: 0-10 Numeric Is Patient Pain Free? Yes Assessment/Plan Assessment/Plan (1) Non-pressure chronic ulcer of other part of left foot with necrosis of bone: CODE(S): L97.524 - Non-pressure chronic ulcer of other part of left foot with necrosis of bone PLAN: Patient was examined and evaluated. All findings were discussed with the patient. All questions were answered to the patient's satisfaction. Excisional debridement down to including subcutaneous tissue, muscle, fascia andbone with a number 5 mm dermal curette to the lateral fifth metatarsal head full-thickness wound left foot done withoutincident. Postdebridement measurement was 0.9 x 0.8 x 0.5 cm. Postoperative measurement is 1.0 x 1.0 x 1.2 cm. Epi cord 2.0 x 3.0 cm graft was applied and 100% application to the full- thickness wound to the lateral left foot. second application. There was no concern for infection. Bolster dressing was appliedfollowed by dry sterile dressing and compression wrap. Patient will continue Abx until gone. Follow-up at the wound care center with Dr. Shaikh in 1 week. (2) Other hereditary and idiopathic neuropathies: CODE(S): G60.8 - Other hereditary and idiopathic neuropathies 12/09/24 1112 Cosigner Signature (if applicable): CC: ~ Signed [facility]07-31-2025 Progress note Author Les Shaikh [facility] Note Date/Time December 02, 2024 2:22 pm [facility] [address] [place] [id number] Progress Note - Wound Care 12/02/24 1416 MR#: [id number] Acct: [id number] Name: MAIDA POLANCO Rep #:[id number] : 1980 44 From: Les Richardson PM PCP: Dr. Markel Bell MD Status:RE G RCR Location: History of Present Illness Date of Service: 12/01/24 Chief Complaint: Full-thickness wound, left foot History of Wound: Patient quadriplegic follows up for left plantar fifth MPJ ulceration which started as a pressure ulceration. Patient denies constitutional symptoms pain or any changes since previous visit. Progress of Wound: Evidence of full-thickness wound with tissue necrosis down to bone to the lateral side of the left foot. Subjective Subjective Patient is a 44-year-old quadriplegic male presenting to wound care center todayfor follow-up evaluation of full-thickness wound to the lateral aspect of the fifth metatarsal head of the left foot. Patient is nonambulatory. He has been doing dressing changes as discussed. He is taking his oral antibiotics as prescribed. He admits great improvement to the wound as well as the redness to the left foot. The patient does not respond to pain. He denies any new onset of trauma. Denies constitutional symptoms. No other pedal complaints at this time. Objective Data Objective Data Vital Signs: Vital Signs Temp Pulse Resp BP O2 Del Method 97.3 F L 49 L 16 124/67 H Room Air 12/01/24 13:39 12/01/24 13:39 12/01/24 13:39 12/01/24 13:39 12/01/24 13:39 Oxygen Delivery Method Room Air Lab / Micro Data Micro: Microbiology 11/03/24 13:47 Ulcer, Decubitus - Left Foot Gram Stain - Final 11/03/24 13:47 Ulcer, Decubitus - Left Foot Wound Culture - Final Staphylococcus caprae Proteus mirabilis 11/03/24 13:47 Ulcer, Decubitus - Left Foot Anaerobic Culture - Final No anaerobic bacteria isolated. Physical Exam Narrative Vascular: DP and PT pulses are palpable to left lower extremity. CFT is brisk. No erythema. Skin temperature is warm to cool from proximal ankle to distal digits to the left extremity. Neurological: Patient is quadriplegic and does not have light touch and does nothave protective sensation. Dermatological: Evidence of full-thickness wound to the lateral aspect of the fifth metatarsal head measuring 1.0 x 1.4 x 0.8 cm. Positive probe to bone. Excisional debridement down to including subcutaneous tissue, muscle, fascia andbone with a number 5 mm dermal curette to the lateral fifth metatarsal head full- thickness wound left foot done without incident. Postdebridement measurement was 0.9 x 1.3 x 0.6 cm. Postoperative measurement is 1.0 x 1.4 x 0.8 cm. Epi cord 2.0 x 3.0 cm graft was applied and 100% application to the full- thickness wound to the lateral left foot. First application. There was no concern for infection. Bolster dressing was applied followed by dry sterile dressing and compression wrap. Musculoskeletal:No pain to palpation of the full-thickness wound. No pain with calf pressure. Debridement Note Debridement Note Debridement Free Text: Excisional debridement down to including subcutaneous tissue, muscle, fascia and bone with a number 5 mm dermal curette to the lateralfifth metatarsal head full-thickness wound left foot done without incident. Postdebridement measurement was 0.9 x 1.3 x 0.6 cm. Postoperative measurement is 1.0 x 1.4 x 0.8 cm. Epi cord 2.0 x 3.0 cm graft was applied and 100% application to the full- thickness wound to the lateral left foot. First application. There was no concern for infection. Bolster dressing was applied followed by dry sterile dressing and compression wrap. Post-Debridement Measurements and Additional Note: Post-Debridement Measurements/Treatment - Nurse 1 - General Ulcer Assessment Start: 11/03/24 13:22 Freq: Status: Active Protocol: DANIS Activity Type Activity Date Activity User E-sign Co-sign Detail Recorded Client Recorded Date Recorded By Document 11/03/24 13:22 [facility] [id number] 11/03/24 13:30 [facility] Document 11/11/24 14:02 KW [id number] 11/11/24 14:13 KW Document 11/17/24 14:02 DL [id number] 11/17/24 14:09 DL Document 11/24/24 09:35 [id number] 11/24/24 09:37 JF Document 12/01/24 13:39 GM [id number] 12/01/24 13:41 11/03/24 11/11/24 11/17/24 13:22 14:02 14:02 - Today's Visit Information Type of service Follow-up Visit Follow-up Visit Follow-up Visit (Physician/GRAPHIC EDITOR (Physician/GRAPHIC EDITOR (Physician/GRAPHIC EDITOR ) ) ) Arrival Mode Wheelchair Ambulatory Wheelchair Transfer Assistance None None Accompanied by Patient Identification Verified (Name & Yes Yes Yes ) Patient Requires Transmission-Based No No Precautions Vital Signs Temperature (97.8 F-99.1 F) 97 F L 97.9 F 97 F L Temperature Source Temporal Temporal Temporal Pulse Rate (60-100) 16 L 68 89 Pulse Location Monitor Monitor Monitor Respiratory Rate (12-18) 50 H 18 16 Respiratory rate source Observation Observation Observation Oxygen Delivery Method Room Air Room Air Blood Pressure (90/60-120/80) 153/91 H 91/59 L 127/74 H Blood Pressure Mean (mm Hg) 111 69 91 Source Monitor Monitor Monitor Position Sitting Sitting Blood Pressure Location Left Arm Left Arm History Since Last Visit- (Skip if this is Patient's initial visit) Have you changed medications since your No No No last visit? Any new allergies or adverse reactions No No No Had a fall/change in ADL's that may No No No increase risk of falls Signs or symptoms of abuse and/or No No No neglect since last visit Have you been in the hospital since your No No No last visit? Has dressing in place as prescribed Yes Yes Yes Has compression in place as prescribed N/A Yes Yes Has offloadiing in place as prescribed Yes Yes Yes Experienced any changes in pain level or No No No management Left Footwear Surgical Shoe Regular Shoe with pressure relief insole Right Footwear Regular Shoe Regular Shoe Pain Scale: 0-10 Numeric Is Patient Pain Free? Yes Yes Yes 11/24/24 12/01/24 09:35 13:39 WC - Today's Visit Information Type of service Follow-up Visit Follow-up Visit (Physician/GRAPHIC EDITOR (Physician/GRAPHIC EDITOR ) ) Arrival Mode Wheelchair Wheelchair Transfer Assistance Manual None Accompanied by Patient Identification Verified (Name & Yes Yes ) Patient Requires Transmission-Based No Precautions Vital Signs Temperature (97.8 F-99.1 F) 97 F L 97.3 F L Temperature Source Temporal Temporal Pulse Rate (60-100) 61 49 L Pulse Location Monitor Monitor Respiratory Rate (12-18) 16 16 Respiratory rate source Observation Observation Oxygen Delivery Method Room Air Blood Pressure (90/60-120/80) 107/57 L 124/67 H Blood Pressure Mean (mm Hg) 73 86 Source Monitor Monitor Position Sitting Sitting Blood Pressure Location Left Arm Left Arm History Since Last Visit- (Skip if this is Patient's initial visit) Have you changed medications since your Yes No last visit? Any new allergies or adverse reactions No No Had a fall/change in ADL's that may No No increase risk of falls Signs or symptoms of abuse and/or No No neglect since last visit Have you been in the hospital since your No No last visit? Has dressing in place as prescribed Yes Has compression in place as prescribed Yes N/A Has offloadiing in place as prescribed Yes Yes Experienced any changes in pain level or Yes No management Left Footwear Surgical Shoe No Footwear with pressure relief insole Right Footwear Regular Shoe Pain Scale: 0-10 Numeric Is Patient Pain Free? Yes Yes WC - Nurse 1 - General Ulcer Measurement Start: 11/03/24 13:22 Freq: Status: Active Protocol: Activity Type Activity Date Activity User E-sign Co-sign Detail Recorded Client Recorded Date Recorded By Document 11/03/24 13:22 BMF [id number] 11/03/24 13:30 BMF Document 11/11/24 14:02 KW [id number] 11/11/24 14:13 KW Document 11/17/24 14:02 DL [id number] 11/17/24 14:09 DL Document 11/24/24 09:35 JF [id number] 11/24/24 09:37 JF Document 12/01/24 13:39 GM [id number] 12/01/24 13:41 GM 11/03/24 11/11/24 11/17/24 13:22 14:02 14:02 Wound Center Nurse 1 #1 lt lat foot -Combined with other wound No -Current Size (cm) - Length 1.1 1 0.7 -Current Size (cm) - Width 1.2 1.2 0.7 -Current Size (cm) - Depth 0.4 0.8 0.8 -Total Square Cm 1.32 1.2 0.49 -Date of Last Picture (Recall this 11/03/24 11/11/24 field) -Photo Taken Yes -Epithelialization None Present -Tunneling No -Undermining/Tunneling -Maximum Distance #2 (cm) 0.9 -Circular Undermining Yes -Exudate Amt Medium Medium Medium -Exudate Type Serosanguineous Serosanguineous Serosanguineous -Wound Margin Distinct, Thickened Distinct, Outline Outline Attached Attached -Granulation Amt Large (67-100%) Large (67-100%) Large (67-100%) -Granulation Quality Red Red Red -Slough/Fibrin Yes -Necrosis Amt Small (1-33%) None Present (0 %) -Necrotic Tissue Type Adherent Slough -Structure Exposed Bone N/A -Texture (Livier-wound Skin Appearance) Assessed Assessed Scarring -Moisture (Livier-wound Skin Appearance) Assessed Assessed Maceration -Color (Livier-wound Skin Appearance) Assessed, Assessed, No Abnormality Erythema Erythema -Temperature (Livier-wound Skin No Abnormality No Abnormality No Abnormality Appearance) (Pt Warm) (Pt Warm) (Pt Warm) -Tenderness on Palpation (Livier-wound No No No Skin Appearance) -Ulcer Cleansing Rinsed/ Soap and Water Soap and Water Irrigated with Saline -Foul Odor after Cleansing No No No -Anesthetic Used 5% Lidocaine 5% Lidocaine Gel Gel Lower Limb Edema Present 11/24/24 12/01/24 09:35 13:39 Wound Center Nurse 1 #1 lt lat foot -Combined with other wound No -Current Size (cm) - Length 1.5 0.9 -Current Size (cm) - Width 0.8 1.0 -Current Size (cm) - Depth 0.5 1.2 -Total Square Cm 1.20 0.90 -Date of Last Picture (Recall this field) -Photo Taken Yes No -Epithelialization Small 1-33% Small 1-33% -Tunneling No No -Undermining/Tunneling No No -Maximum Distance #2 (cm) -Circular Undermining No No -Exudate Amt Medium -Exudate Type Serosanguineous Sanguineous -Wound Margin Distinct, Distinct, Outline Outline Attached Attached -Granulation Amt Large (67-100%) Medium (34-66%) -Granulation Quality Red Red -Slough/Fibrin No Yes -Necrosis Amt Small (1-33%) -Necrotic Tissue Type Adherent Slough -Structure Exposed Bone -Texture (Livier-wound Skin Appearance) Assessed Assessed -Moisture (Livier-wound Skin Appearance) No Abnormality, Assessed Dry/Scaly -Color (Livier-wound Skin Appearance) Assessed Assessed -Temperature (Livier-wound Skin No Abnormality No Abnormality Appearance) (Pt Warm) (Pt Warm) -Tenderness on Palpation (Livier-wound No No Skin Appearance) -Ulcer Cleansing Rinsed/ Soap and Water Irrigated with Saline -Foul Odor after Cleansing No No -Anesthetic Used 5% Lidocaine Gel Lower Limb Edema Present NA RUDI - Nurse 2 - General Ulcer CM Notes Start: 11/03/24 13:22 Freq: Status: Active Protocol: Activity Type Activity Date Activity User E-sign Co-sign Detail Recorded Client Recorded Date Recorded By Document 11/03/24 13:39 JF [id number] 11/03/24 13:48 Document 11/11/24 14:29 [id number] 11/11/24 14:46 Document 11/17/24 14:28 [id number] 11/17/24 14:30 Document 11/24/24 09:38 [id number] 11/24/24 09:39 Document 12/01/24 14:00 [id number] 12/01/24 14:06 11/03/24 11/11/24 11/17/24 13:39 14:29 14:28 Wound Center Nurse 2 #1 lt lat foot -Time 13:40 14:29 14:28 -Correct Patient Yes Yes Yes -Correct Side, Site, Position Yes Yes Yes -Correct Procedure Yes Yes Yes -Procedure Performed Yes Yes Yes -Type of Procedure Debridement Debridement Debridement -Clinical Debridement Bone Muscle / Fascia Bone -Tissue Removed Non-viable Muscle Non-viable tissue tissue -Post Debridement (cm) - Length 0.9 1.1 1.0 -Post Debridement (cm) - Width 1.3 1.0 1.0 -Post Debridement (cm) - Depth 0.8 0.8 1.5 -Total Square (Post) (cm) 1.17 1.10 1.00 -Area of Debridement (cm) - Length 0.9 1.1 1.0 -Area of Debridement (cm) - Width 1.3 1.0 1.0 -Total Square (Area) (cm) 1.17 1.10 1.00 -Tunneling No No No -Undermining/Tunneling No No No -Circular Undermining No No No -Wound/Ulcer Outcome Not Healed Not Healed Not Healed -Ulcer Cleansing Rinsed/ Rinsed/ Rinsed/ Irrigated with Irrigated with Irrigated with Saline Saline Saline -Foul Odor after Cleansing No No No -Bioengineered Tissue No Yes No -Type of Bioengineered Tissue Epifix 18mm Disc -Expiration Date 07/03/29 -Product Lot Number [id number] -Percent Used 100 -Lot number of Saline Used [id number] -Bleeding Controlled with Pressure, Pressure Pressure Surgifoam ? x 2 3/8 () -Surgifoam (3/4 x 2 3/8) Small 1 -Treatment Response Procedure Procedure Procedure Tolerated Well Tolerated Well Tolerated Well -Offloading Yes No Yes -Type of Offloading Surgical Shoe Surgical Shoe -Assistive Device(s) Wheelchair -Debridement - Muscle / Fascia, 1st Yes 20sq cm -Debridement - Bone, 1st 20sq cm Yes Yes -Apply Skin Sub - 1st 25 sq cm - Feet -Epicord Application 1-4 (per sq cm) Pain Scale: 0-10 Numeric Is Patient Pain Free? Yes Yes Yes 11/24/24 12/01/24 09:38 14:00 Wound Center Nurse 2 #1 lt lat foot -Time 09:38 14:00 -Correct Patient Yes Yes -Correct Side, Site, Position Yes Yes -Correct Procedure Yes Yes -Procedure Performed Yes Yes -Type of Procedure Debridement Debridement -Clinical Debridement Bone Bone -Tissue Removed Non-viable Non-viable tissue tissue -Post Debridement (cm) - Length 1.2 1 -Post Debridement (cm) - Width 1.2 1.4 -Post Debridement (cm) - Depth 0.5 0.8 -Total Square (Post) (cm) 1.44 1.4 -Area of Debridement (cm) - Length 1.2 1.0 -Area of Debridement (cm) - Width 1.2 1.4 -Total Square (Area) (cm) 1.44 1.40 -Tunneling No No -Undermining/Tunneling No No -Circular Undermining No No -Wound/Ulcer Outcome Not Healed Not Healed -Ulcer Cleansing Rinsed/ Rinsed/ Irrigated with Irrigated with Saline Saline -Foul Odor after Cleansing No No -Bioengineered Tissue No Yes -Type of Bioengineered Tissue Epifix 18mm Disc -Expiration Date 03/05/29 -Product Lot Number [id number] -Percent Used 100 -Lot number of Saline Used [id number] -Bleeding Controlled with Pressure Pressure -Surgifoam (3/4 x 2 3/8) Small -Treatment Response Procedure Procedure Tolerated Well Tolerated Well -Offloading Yes Yes -Type of Offloading Surgical Shoe Surgical Shoe -Assistive Device(s) -Debridement - Muscle / Fascia, 1st 20sq cm -Debridement - Bone, 1st 20sq cm Yes No -Apply Skin Sub - 1st 25 sq cm - Feet 1 -Epicord Application 1-4 (per sq cm) 6 Pain Scale: 0-10 Numeric Is Patient Pain Free? Yes Yes WC - Nurse 3 - General Ulcer D/C NN Start: 11/03/24 13:22 Freq: Status: Active Protocol: Activity Type Activity Date Activity User E-sign Co-sign Detail Recorded Client Recorded Date Recorded By Document 11/03/24 14:06 KW [id number] 11/03/24 14:06 KW Document 11/11/24 14:56 DL [id number] 11/11/24 14:57 DL Document 11/17/24 14:50 [facility] [id number] 11/17/24 14:52 [facility] Document 11/24/24 09:56 KW [id number] 11/24/24 09:57 KW 11/03/24 11/11/24 11/17/24 14:06 14:56 14:50 Wound Care Center Nurse 3 #1 lt lat foot -Ulcer Cleansing Rinsed/ Rinsed/ Irrigated with Irrigated with Saline Saline -Foul Odor after Cleansing No No -Primary Dressing Applied Silicone Border Foam 4x4, Silvercel -Other Dressing Epifix betadine soaked gauze -Primary Dressing Covered/Secured with Dry Gauze & Dry Gauze & Roll Gauze Roll Gauze, Secured with Tape -Silicone Border Foam 4x4 1 -Silvercel 1 LLE -Compression Wrap Reena Wrap -Other reena to secure Treatment Response Procedure Procedure Tolerated Well Tolerated Well Pain Scale: 0-10 Numeric Is Patient Pain Free? Yes Yes Yes WC - Visit Discharge Discharge Condition Stable Stable Stable Ambulatory Status Wheelchair Wheelchair Wheelchair Transportation Private Auto Private Auto Private Auto Accompanied by Medication Reconcilliation completed & No provided to patient/care provider Clinical Summary of Care Provided Yes 11/24/24 09:56 Wound Care Center Nurse 3 #1 lt lat foot -Ulcer Cleansing -Foul Odor after Cleansing -Primary Dressing Applied -Other Dressing betadine gauze -Primary Dressing Covered/Secured with Dry Gauze & Roll Gauze, Secured with Tape -Silicone Border Foam 4x4 -Silvercel LLE -Compression Wrap Reena Wrap -Other pt own to secure dressing Treatment Response Pain Scale: 0-10 Numeric Is Patient Pain Free? Yes WC - Visit Discharge Discharge Condition Stable Ambulatory Status Wheelchair Transportation Private Auto Accompanied by Medication Reconcilliation completed & No provided to patient/care provider Clinical Summary of Care Provided Yes Assessment/Plan Assessment/Plan (1) Cellulitis of left lower limb: CODE(S): L03.116 - Cellulitis of left lower limb PLAN: Patient was examined and evaluated. All findings were discussed with the patient. All questions were answered to the patient's satisfaction. Excisional debridement down to including subcutaneous tissue, muscle, fascia andbone with a number 5 mm dermal curette to the lateral fifth metatarsal head full- thickness wound left foot done without incident. Postdebridement measurement was 0.9 x 1.3 x 0.6 cm. Postoperative measurement is 1.0 x 1.4 x 0.8 cm. Epi cord 2.0 x 3.0 cm graft was applied and 100% application to the full- thickness wound to the lateral left foot. First application. There was no concern for infection. Bolster dressing was applied followed by dry sterile dressing and compression wrap. Patient is doing well off his oral antibiotics we will continue another course of 2 weeks of ciprofloxacin 750 mg twice daily. Follow-up at the wound care center with Dr. Shaikh in 1 week. (2) Non-pressure chronic ulcer of other part of left foot with necrosis of bone: CODE(S): L97.524 - Non-pressure chronic ulcer of other part of left foot with necrosis of bone (3) Other hereditary and idiopathic neuropathies: CODE(S): G60.8 - Other hereditary and idiopathic neuropathies 12/02/24 1422 <Electronically signed by Les Shaikh DPM> Cosigner Signature (if applicable): CC: ~ Signed [facility] Work Phone: [phone] Progress note [facility] [address] [place] [address] Progress Note - Wound Care 12/02/24 1416 MR#: [id number] Acct: [id number] Name: MAIDA POLANCO Rep #:[id number] : 1980 44 From: Les SORIANO PCP: Dr. Markel Bell MD Status:RE G RCR Location: History of Present Illness Date of Service: 12/01/24 Chief Complaint: Full-thickness wound, left foot History of Wound: Patient quadriplegic follows up for left plantar fifth MPJ ulceration which started as a pressure ulceration. Patient denies constitutional symptoms pain or any changes since previous visit. Progress of Wound: Evidence of full-thickness wound with tissue necrosis down to bone to the lateral side of the left foot. Subjective Subjective Patient is a 44-year-old quadriplegic male presenting to wound care center todayfor follow-up evaluation of full-thickness wound to the lateral aspect of the fifth metatarsal head of the left foot. Patient is nonambulatory. He has been doing dressing changes as discussed. He is taking his oral antibiotics as prescribed. He admits great improvement to the wound as well as the redness to the left foot. The patient does not respond to pain. He denies any new onset of trauma. Denies constitutional symptoms. No other pedal complaints at this time. Objective Data Objective Data Vital Signs: Vital Signs Temp Pulse Resp BP O2 Del Method 97.3 F L 49 L 16 124/67 H Room Air 12/01/24 13:39 12/01/24 13:39 12/01/24 13:39 12/01/24 13:39 12/01/24 13:39 Oxygen Delivery Method Room Air Lab / Micro Data Micro: Microbiology 11/03/24 13:47 Ulcer, Decubitus - Left Foot Gram Stain - Final 11/03/24 13:47 Ulcer, Decubitus - Left Foot Wound Culture - Final Staphylococcus caprae Proteus mirabilis 11/03/24 13:47 Ulcer, Decubitus - Left Foot Anaerobic Culture - Final No anaerobic bacteria isolated. Physical Exam Narrative Vascular: DP and PT pulses are palpable to left lower extremity. CFT is brisk. No erythema. Skin temperature is warm to cool from proximal ankle to distal digits to the left extremity. Neurological: Patient is quadriplegic and does not have light touch and does nothave protective sensation. Dermatological: Evidence of full-thickness wound to the lateral aspect of the fifth metatarsal headmeasuring 1.0 x 1.4 x 0.8 cm. Positive probe to bone. Excisional debridement down to including subcutaneous tissue, muscle, fascia andbone with a number 5 mm dermal curette to the lateral fifth metatarsal head full-thickness wound left foot done withoutincident. Postdebridement measurement was 0.9 x 1.3 x 0.6 cm. Postoperative measurement is 1.0 x 1.4 x 0.8 cm. Epi cord 2.0 x 3.0 cm graft was applied and 100% application to the full- thickness wound to the lateral left foot. First application. There was no concern for infection. Bolster dressing was applied followed by dry sterile dressing and compression wrap. Musculoskeletal:No pain to palpation of the full-thickness wound. No pain with calf pressure. Debridement Note Debridement Note Debridement Free Text: Excisional debridement down to including subcutaneous tissue, muscle, fasciaand bone with a number 5 mm dermal curette to the lateralfifth metatarsal head full-thickness woundleft foot done without incident. Postdebridement measurement was 0.9 x 1.3 x 0.6 cm. Postoperative m easurement is 1.0 x 1.4 x 0.8 cm. Epi cord 2.0 x 3.0 cm graft was applied and 100% application to the full- thickness wound to the lateral left foot. First application. There was no concern for infection. Bolster dressing was applied followed by dry sterile dressing and compression wrap. Post-Debridement Measurements and Additional Note: Post-Debridement Measurements/Treatment - Nurse 1 - General Ulcer Assessment Start: 11/03/24 13:22 Freq: Status: Active Protocol: .TELLOEXCelio Activity Type Activity Date Activity User E-sign Co-sign Detail Recorded Client Recorded Date Recorded By Document 11/03/24 13:22 BMF [id number] 11/03/24 13:30 BMF Document 11/11/24 14:02 KW [id number] 11/11/24 14:13 KW Document 11/17/24 14:02 DL [id number] 11/17/24 14:09 DL Document 11/24/24 09:35 JF [id number] 11/24/24 09:37 JF Document 12/01/24 13:39 [id number] 12/01/24 13:41 11/03/24 11/11/24 11/17/24 13:22 14:02 14:02 - Today's Visit Information Type of service Follow-up Visit Follow-up Visit Follow-up Visit (Physician/GRAPHIC EDITOR (Physician/GRAPHIC EDITOR (Physician/GRAPHIC EDITOR ) ) ) Arrival Mode Wheelchair Ambulatory Wheelchair Transfer Assistance None None Accompanied by Patient Identification Verified (Name & Yes Yes Yes ) Patient Requires Transmission-Based No No Precautions Vital Signs Temperature (97.8 F-99.1 F) 97 F L 97.9 F 97 F L Temperature Source Temporal Temporal Temporal Pulse Rate (60-100) 16 L 68 89 Pulse Location Monitor Monitor Monitor Respiratory Rate (12-18) 50 H 18 16 Respiratory rate source Observation Observation Observation Oxygen Delivery Method Room Air Room Air Blood Pressure (90/60-120/80) 153/91 H 91/59 L 127/74 H Blood Pressure Mean (mm Hg) 111 69 91 Source Monitor Monitor Monitor Position Sitting Sitting Blood Pressure Location Left Arm Left Arm History Since Last Visit- (Skip if this is Patient's initial visit) Have you changed medications since your No No No last visit? Any new allergies or adverse reactions No No No Had a fall/change in ADL's that may No No No increase risk of falls Signs or symptoms of abuse and/or No No No neglect since last visit Have you been in the hospital since your No No No last visit? Has dressing in place as prescribed Yes Yes Yes Has compression in place as prescribed N/A Yes Yes Has offloadiing in place as prescribed Yes Yes Yes Experienced any changes in pain level or No No No management Left Footwear Surgical Shoe Regular Shoe with pressure relief insole Right Footwear Regular Shoe Regular Shoe Pain Scale: 0-10 Numeric Is Patient Pain Free? Yes Yes Yes 11/24/24 12/01/24 09:35 13:39 WC - Today's Visit Information Type of service Follow-up Visit Follow-up Visit (Physician/GRAPHIC EDITOR (Physician/GRAPHIC EDITOR ) ) Arrival Mode Wheelchair Wheelchair Transfer Assistance Manual None Accompanied by Patient Identification Verified (Name & Yes Yes ) Patient Requires Transmission-Based No Precautions Vital Signs Temperature (97.8 F-99.1 F) 97 F L 97.3 F L Temperature Source Temporal Temporal Pulse Rate (60-100) 61 49 L Pulse Location Monitor Monitor Respiratory Rate (12-18) 16 16 Respiratory rate source Observation Observation Oxygen Delivery Method Room Air Blood Pressure (90/60-120/80) 107/57 L 124/67 H Blood Pressure Mean (mm Hg) 73 86 Source Monitor Monitor Position Sitting Sitting Blood Pressure Location Left Arm Left Arm History Since Last Visit- (Skip if this is Patient's initial visit) Have you changed medications since your Yes No last visit? Any new allergies or adverse reactions No No Had a fall/change in ADL's that may No No increase risk of falls Signs or symptoms of abuse and/or No No neglect since last visit Have you been in the hospital since your No No last visit? Has dressing in place as prescribed Yes Has compression in place as prescribed Yes N/A Has offloadiing in place as prescribed Yes Yes Experienced any changes in pain level or Yes No management Left Footwear Surgical Shoe No Footwear with pressure relief insole Right Footwear Regular Shoe Pain Scale: 0-10 Numeric Is Patient Pain Free? Yes Yes WC - Nurse 1 - General Ulcer Measurement Start: 11/03/24 13:22 Freq: Status: Active Protocol: Activity Type Activity Date Activity User E-sign Co-sign Detail Recorded Client Recorded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 constitutional symptoms. No other pedal complaints at this time. Objective Data Objective Data Vital Signs: Vital Signs Temp Pulse Resp BP O2 Del Method 97 F L 89 16 127/74 H Room Air 11/17/24 14:02 11/17/24 14:02 11/17/24 14:02 11/17/24 14:02 11/11/24 14:02 Oxygen Delivery Method Room Air Lab / Micro Data Micro: Microbiology 11/03/24 13:47 Ulcer, Decubitus - Left Foot Gram Stain - Final 11/03/24 13:47 Ulcer, Decubitus - Left Foot Wound Culture - Final Staphylococcus caprae Proteus mirabilis 11/03/24 13:47 Ulcer, Decubitus - Left Foot Anaerobic Culture - Final No anaerobic bacteria isolated. Physical Exam Narrative Vascular: DP and PT pulses are palpable to left lower extremity. CFT is brisk. Blanchable erythema to the left foot. Skin temperature is warm to cool from proximal ankle to distal digits to the left extremity. Neurological: Patient is quadriplegic and does not have light touch and does nothave protective sensation. Dermatological: Evidence of full-thickness wound to the lateral aspect of the fifth metatarsal head measuring 1.0 x 1.0 x 1.5 cm. Positive probe to bone. Blanchable erythema to the left foot and the lateral side. Excisional debridement down to including subcutaneous tissue, muscle, fascia andbone with a number 5 mm dermal curette to the lateral fifth metatarsal head full- thickness wound left foot done without incident. Postdebridement measurement was 0.9 x 0.9 x 1.0 cm. Postoperative measurement is 1.0 x 1.0 x 1.5 cm. Musculoskeletal:No pain to palpation of the full-thickness wound. No pain with calf pressure. Debridement Note Debridement Note Debridement Free Text: Excisional debridement down to including subcutaneous tissue, muscle, fascia and bone with a number 5 mm dermal curette to the lateralfifth metatarsal head full-thickness wound left foot done without incident. Postdebridement measurement was 0.9 x 0.9 x 1.0 cm. Postoperative measurement is 1.0 x 1.0 x 1.5 cm. Post-Debridement Measurements and Additional Note: Post-Debridement Measurements/Treatment WC - Nurse 1 - General Ulcer Assessment Start: 11/03/24 13:22 Freq: Status: Active Protocol: DANIS Activity Type Activity Date Activity User E-sign Co-sign Detail Recorded Client Recorded Date Recorded By Document 11/03/24 13:22 BMF [id number] 11/03/24 13:30 BMF Document 11/11/24 14:02 KW [id number] 11/11/24 14:13 KW Document 11/17/24 14:02 DL [id number] 11/17/24 14:09 DL 11/03/24 11/11/24 11/17/24 13:22 14:02 14:02 WC - Today's Visit Information Type of service Follow-up Visit Follow-up Visit Follow-up Visit (Physician/GRAPHIC EDITOR (Physician/GRAPHIC EDITOR (Physician/GRAPHIC EDITOR ) ) ) Arrival Mode Wheelchair Ambulatory Wheelchair Transfer Assistance None None Patient Identification Verified (Name & Yes Yes Yes ) Patient Requires Transmission-Based No No Precautions Vital Signs Temperature (97.8 F-99.1 F) 97 F L 97.9 F 97 F L Temperature Source Temporal Temporal Temporal Pulse Rate (60-100) 16 L 68 89 Pulse Location Monitor Monitor Monitor Respiratory Rate (12-18) 50 H 18 16 Respiratory rate source Observation Observation Observation Oxygen Delivery Method Room Air Room Air Blood Pressure (90/60-120/80) 153/91 H 91/59 L 127/74 H Blood Pressure Mean (mm Hg) 111 69 91 Source Monitor Monitor Monitor Position Sitting Sitting Blood Pressure Location Left Arm Left Arm History Since Last Visit- (Skip if this is Patient's initial visit) Have you changed medications since your No No No last visit? Any new allergies or adverse reactions No No No Had a fall/change in ADL's that may No No No increase risk of falls Signs or symptoms of abuse and/or No No No neglect since last visit Have you been in the hospital since your No No No last visit? Has dressing in place as prescribed Yes Yes Yes Has compression in place as prescribed N/A Yes Yes Has offloadiing in place as prescribed Yes Yes Yes Experienced any changes in pain level or No No No management Left Footwear Surgical Shoe Regular Shoe with pressure relief insole Right Footwear Regular Shoe Regular Shoe Pain Scale: 0-10 Numeric Is Patient Pain Free? Yes Yes Yes WC - Nurse 1 - General Ulcer Measurement Start: 11/03/24 13:22 Freq: Status: Active Protocol: Activity Type Activity Date Activity User E-sign Co-sign Detail Recorded Client Recorded Date Recorded By Document 11/03/24 13:22 BMF [id number] 11/03/24 13:30 BMF Document 11/11/24 14:02 KW [id number] 11/11/24 14:13 KW Document 11/17/24 14:02 DL [id number] 11/17/24 14:09 DL 11/03/24 11/11/24 11/17/24 13:22 14:02 14:02 Wound Center Nurse 1 #1 lt lat foot -Combined with other wound No -Current Size (cm) - Length 1.1 1 0.7 -Current Size (cm) - Width 1.2 1.2 0.7 -Current Size (cm) - Depth 0.4 0.8 0.8 -Total Square Cm 1.32 1.2 0.49 -Date of Last Picture (Recall this 11/03/24 11/11/24 field) -Photo Taken Yes -Epithelialization None Present -Tunneling No -Maximum Distance #2 (cm) 0.9 -Circular Undermining Yes -Exudate Amt Medium Medium Medium -Exudate Type Serosanguineous Serosanguineous Serosanguineous -Wound Margin Distinct, Thickened Distinct, Outline Outline Attached Attached -Granulation Amt Large (67-100%) Large (67-100%) Large (67-100%) -Granulation Quality Red Red Red -Slough/Fibrin Yes -Necrosis Amt Small (1-33%) None Present (0 %) -Necrotic Tissue Type Adherent Slough -Structure Exposed Bone N/A -Texture (Livier-wound Skin Appearance) Assessed Assessed Scarring -Moisture (Livier-wound Skin Appearance) Assessed Assessed Maceration -Color (Livier-wound Skin Appearance) Assessed, Assessed, No Abnormality Erythema Erythema -Temperature (Livier-wound Skin No Abnormality No Abnormality No Abnormality Appearance) (Pt Warm) (Pt Warm) (Pt Warm) -Tenderness on Palpation (Livier-wound No No No Skin Appearance) -Ulcer Cleansing Rinsed/ Soap and Water Soap and Water Irrigated with Saline -Foul Odor after Cleansing No No No -Anesthetic Used 5% Lidocaine 5% Lidocaine Gel Gel WC - Nurse 2 - General Ulcer CM Notes Start: 11/03/24 13:22 Freq: Status: Active Protocol: Activity Type Activity Date Activity User E-sign Co-sign Detail Recorded Client Recorded Date Recorded By Document 11/03/24 13:39 [id number] 11/03/24 13:48 Document 11/11/24 14:29 [id number] 11/11/24 14:46 Document 11/17/24 14:28 [id number] 11/17/24 14:30 11/03/24 11/11/24 11/17/24 13:39 14:29 14:28 Wound Center Nurse 2 #1 lt lat foot -Time 13:40 14:29 14:28 -Correct Patient Yes Yes Yes -Correct Side, Site, Position Yes Yes Yes -Correct Procedure Yes Yes Yes -Procedure Performed Yes Yes Yes -Type of Procedure Debridement Debridement Debridement -Clinical Debridement Bone Muscle / Fascia Bone -Tissue Removed Non-viable Muscle Non-viable tissue tissue -Post Debridement (cm) - Length 0.9 1.1 1.0 -Post Debridement (cm) - Width 1.3 1.0 1.0 -Post Debridement (cm) - Depth 0.8 0.8 1.5 -Total Square (Post) (cm) 1.17 1.10 1.00 -Area of Debridement (cm) - Length 0.9 1.1 1.0 -Area of Debridement (cm) - Width 1.3 1.0 1.0 -Total Square (Area) (cm) 1.17 1.10 1.00 -Tunneling No No No -Undermining/Tunneling No No No -Circular Undermining No No No -Wound/Ulcer Outcome Not Healed Not Healed Not Healed -Ulcer Cleansing Rinsed/ Rinsed/ Rinsed/ Irrigated with Irrigated with Irrigated with Saline Saline Saline -Foul Odor after Cleansing No No No -Bioengineered Tissue No Yes No -Type of Bioengineered Tissue Epifix 18mm Disc -Expiration Date 07/03/29 -Product Lot Number [id number] -Percent Used 100 -Lot number of Saline Used [id number] -Bleeding Controlled with Pressure, Pressure Pressure Surgifoam ? x 2 07/10 (sm) -Surgifoam (3/4 x 2 07/10) Small 1 -Treatment Response Procedure Procedure Procedure Tolerated Well Tolerated Well Tolerated Well -Offloading Yes No Yes -Type of Offloading Surgical Shoe Surgical Shoe -Assistive Device(s) Wheelchair -Debridement - Muscle / Fascia, 1st Yes 20sq cm -Debridement - Bone, 1st 20sq cm Yes Yes Pain Scale: 0-10 Numeric Is Patient Pain Free? Yes Yes Yes - Nurse 3 - General Ulcer D/C NN Start: 11/03/24 13:22 Freq: Status: Active Protocol: Activity Type Activity Date Activity User E-sign Co-sign Detail Recorded Client Recorded Date Recorded By Document 11/03/24 14:06 KW [id number] 11/03/24 14:06 KW Document 11/11/24 14:56 DL [id number] 11/11/24 14:57 DL Document 11/17/24 14:50 [facility] [id number] 11/17/24 14:52 BMF 11/03/24 11/11/24 11/17/24 14:06 14:56 14:50 Wound Care Center Nurse 3 #1 lt lat foot -Ulcer Cleansing Rinsed/ Rinsed/ Irrigated with Irrigated with Saline Saline -Foul Odor after Cleansing No No -Primary Dressing Applied Silicone Border Foam 4x4, Silvercel -Other Dressing Epifix betadine soaked gauze -Primary Dressing Covered/Secured with Dry Gauze & Dry Gauze & Roll Gauze Roll Gauze, Secured with Tape -Silicone Border Foam 4x4 1 -Silvercel 1 LLE -Compression Wrap Reena Wrap -Other reena to secure Treatment Response Procedure Procedure Tolerated Well Tolerated Well Pain Scale: 0-10 Numeric Is Patient Pain Free? Yes Yes Yes WC - Visit Discharge Discharge Condition Stable Stable Stable Ambulatory Status Wheelchair Wheelchair Wheelchair Transportation Private Auto Private Auto Private Auto Accompanied by Medication Reconcilliation completed & No provided to patient/care provider Clinical Summary of Care Provided Yes Assessment/Plan Assessment/Plan (1) Cellulitis of left lower limb: CODE(S): L03.116 - Cellulitis of left lower limb PLAN: Patient was examined and evaluated. All findings were discussed with the patient. All questions were answered to the patient's satisfaction. Excisional debridement down to including subcutaneous tissue, muscle, fascia andbone with a number 5 mm dermal curette to the lateral fifth metatarsal head full- thickness wound left foot done without incident. Postdebridement measurement was 0.9 x 0.9 x 1.0 cm. Postoperative measurement is 1.0 x 1.0 x 1.5 cm. Left lower extremity left clean and patted dry. Betadine soaked gauze followed by dry sterile dressing compression wrap were donned. Patient perform daily dressing change. After review of the patient's microbiology results the patient will be placed onciprofloxacin 750 mg twice daily for 2 weeks. Due to the concern for bone infection we will extend this antibiotic for an additional 2 to 4 weeks after the initial 2-week course. Educated the patient and his to continue to offload his bilateral lower extremity. If the patient fails outpatient conservative treatment we will recommend surgical intervention for removal of the infected bone at the level of the fifthmetatarsal head left foot. All risk and benefits were discussed with patient great detail. Follow-up at the wound care center with Dr. Shaikh in 1 week. (2) Non-pressure chronic ulcer of other part of left foot with necrosis of bone: CODE(S): L97.524 - Non-pressure chronic ulcer of other part of left foot with necrosis of bone (3) Other hereditary and idiopathic neuropathies: CODE(S): G60.8 - Other hereditary and idiopathic neuropathies 11/17/24 1533 <Electronically signed by Les Shaikh DPM> Cosigner Signature (if applicable): CC: ~ Signed [facility] Work Phone: [phone] Progress note [facility] [address] [place] [address] Progress Note - Wound Care 11/17/24 1528 MR#: [id number] Acct: [id number] Name: MAIDA POLANCO Rep #:[id number] : 1980 44 From: Les SORIANO PCP: Dr. Markel Bell MD Status:RE G RCR Location: History of Present Illness Date of Service: 10/26/24 Chief Complaint: Full-thickness wound, left foot History of Wound: Patient quadriplegic follows up for left plantar fifth MPJ ulceration which started as a pressure ulceration. Patient denies constitutional symptoms pain or any changes since previous visit. Progress of Wound: Evidence of full-thickness wound with tissue necrosis down to bone to the lateral side of the left foot. Subjective Subjective Patient is a 44-year-old quadriplegic male presenting to wound care center todayfor follow-up evaluation of full-thickness wound to the lateral aspect of the left foot. Patient has been doing dressing changes as discussed. He did follow-up with physician pediatric dental assistant Rosalina Bergman for evaluation and treatment. Patient's wound is stable but shows concern of bacterial growth with positive probe to bone. Patient will be placed on oral antibiotics at this time. He denies any pain to the left lower extremity. Denies trauma. Denies constitutional symptoms. No other pedal complaints at this time. Objective Data Objective Data Vital Signs: Vital Signs Temp Pulse Resp BP O2 Del Method 97 F L 89 16 127/74 H Room Air 11/17/24 14:02 11/17/24 14:02 11/17/24 14:02 11/17/24 14:02 11/11/24 14:02 Oxygen Delivery Method Room Air Lab / Micro Data Micro: Microbiology 11/03/24 13:47 Ulcer, Decubitus - Left Foot Gram Stain - Final 11/03/24 13:47 Ulcer, Decubitus - Left Foot Wound Culture - Final Staphylococcus caprae Proteus mirabilis 11/03/24 13:47 Ulcer, Decubitus - Left Foot Anaerobic Culture - Final No anaerobic bacteria isolated. Physical Exam Narrative Vascular: DP and PT pulses are palpable to left lower extremity. CFT is brisk. Blanchable erythema to the left foot. Skin temperature is warm to cool from proximal ankle to distal digits to the left extremity. Neurological: Patient is quadriplegic and does not have light touch and does nothave protective sensation. Dermatological: Evidence of full-thickness wound to the lateral aspect of the fifth metatarsal headmeasuring 1.0 x 1.0 x 1.5 cm. Positive probe to bone. Blanchable erythema to the left foot and the lateral side. Excisional debridement down to including subcutaneous tissue, muscle, fascia andbone with a number 5 mm dermal curette to the lateral fifth metatarsal head full-thickness wound left foot done withoutincident. Postdebridement measurement was 0.9 x 0.9 x 1.0 cm. Postoperative measurement is 1.0 x 1.0 x 1.5 cm. Musculoskeletal:No pain to palpation of the full-thickness wound. No pain with calf pressure. Debridement Note Debridement Note Debridement Free Text: Excisional debridement down to including subcutaneous tissue, muscle, fasciaand bone with a number 5 mm dermal curette to the lateralfifth metatarsal head full-thickness woundleft foot done without incident. Postdebridement measurement was 0.9 x 0.9 x 1.0 cm. Postoperative m easurement is 1.0 x 1.0 x 1.5 cm. Post-Debridement Measurements and Additional Note: Post-Debridement Measurements/Treatment - Nurse 1 - General Ulcer Assessment Start: 11/03/24 13:22 Freq: Status: Active Protocol: WC.LOWEXT Activity Type Activity Date Activity User E-sign Co-sign Detail Recorded Client Recorded Date Recorded By Document 11/03/24 13:22 [facility] [id number] 11/03/24 13:30 [facility] Document 11/11/24 14:02 KW [id number] 11/11/24 14:13 KW Document 11/17/24 14:02 DL [id number] 11/17/24 14:09 DL 11/03/24 11/11/24 11/17/24 13:22 14:02 14:02 - Today's Visit Information Type of service Follow-up Visit Follow-up Visit Follow-up Visit (Physician/GRAPHIC EDITOR (Physician/GRAPHIC EDITOR (Physician/GRAPHIC EDITOR ) ) ) Arrival Mode Wheelchair Ambulatory Wheelchair Transfer Assistance None None Patient Identification Verified (Name & Yes Yes Yes ) Patient Requires Transmission-Based No No Precautions Vital Signs Temperature (97.8 F-99.1 F) 97 F L 97.9 F 97 F L Temperature Source Temporal Temporal Temporal Pulse Rate (60-100) 16 L 68 89 Pulse Location Monitor Monitor Monitor Respiratory Rate (12-18) 50 H 18 16 Respiratory rate source Observation Observation Observation Oxygen Delivery Method Room Air Room Air Blood Pressure (90/60-120/80) 153/91 H 91/59 L 127/74 H Blood Pressure Mean (mm Hg) 111 69 91 Source Monitor Monitor Monitor Position Sitting Sitting Blood Pressure Location Left Arm Left Arm History Since Last Visit- (Skip if this is Patient's initial visit) Have you changed medications since your No No No last visit? Any new allergies or adverse reactions No No No Had a fall/change in ADL's that may No No No increase risk of falls Signs or symptoms of abuse and/or No No No neglect since last visit Have you been in the hospital since your No No No last visit? Has dressing in place as prescribed Yes Yes Yes Has compression in place as prescribed N/A Yes Yes Has offloadiing in place as prescribed Yes Yes Yes Experienced any changes in pain level or No No No management Left Footwear Surgical Shoe Regular Shoe with pressure relief insole Right Footwear Regular Shoe Regular Shoe Pain Scale: 0-10 Numeric Is Patient Pain Free? Yes Yes Yes WC - Nurse 1 - General Ulcer Measurement Start: 11/03/24 13:22 Freq: Status: Active Protocol: Activity Type Activity Date Activity User E-sign Co-sign Detail Recorded Client Recorded Date Recorded By Document 11/03/24 13:22 [facility] [id number] 11/03/24 13:30 [facility] Document 11/11/24 14:02 KW [id number] 11/11/24 14:13 KW Document 11/17/24 14:02 DL [id number] 11/17/24 14:09 DL 11/03/24 11/11/24 11/17/24 13:22 14:02 14:02 Wound Center Nurse 1 #1 lt lat foot -Combined with other wound No -Current Size (cm) - Length 1.1 1 0.7 -Current Size (cm) - Width 1.2 1.2 0.7 -Current Size (cm) - Depth 0.4 0.8 0.8 -Total Square Cm 1.32 1.2 0.49 -Date of Last Picture (Recall this 11/03/24 11/11/24 field) -Photo Taken Yes -Epithelialization None Present -Tunneling No -Maximum Distance #2 (cm) 0.9 -Circular Undermining Yes -Exudate Amt Medium Medium Medium -Exudate Type Serosanguineous Serosanguineous Serosanguineous -Wound Margin Distinct, Thickened Distinct, Outline Outline Attached Attached -Granulation Amt Large (67-100%) Large (67-100%) Large (67-100%) -Granulation Quality Red Red Red -Slough/Fibrin Yes -Necrosis Amt Small (1-33%) None Present (0 %) -Necrotic Tissue Type Adherent Slough -Structure Exposed Bone N/A -Texture (Livier-wound Skin Appearance) Assessed Assessed Scarring -Moisture (Livier-wound Skin Appearance) Assessed Assessed Maceration -Color (Livier-wound Skin Appearance) Assessed, Assessed, No Abnormality Erythema Erythema -Temperature (Livier-wound Skin No Abnormality No Abnormality No Abnormality Appearance) (Pt Warm) (Pt Warm) (Pt Warm) -Tenderness on Palpation (Livier-wound No No No Skin Appearance) -Ulcer Cleansing Rinsed/ Soap and Water Soap and Water Irrigated with Saline -Foul Odor after Cleansing No No No -Anesthetic Used 5% Lidocaine 5% Lidocaine Gel Gel WC - Nurse 2 - General Ulcer CM Notes Start: 11/03/24 13:22 Freq: Status: Active Protocol: Activity Type Activity Date Activity User E-sign Co-sign Detail Recorded Client Recorded Date Recorded By Document 11/03/24 13:39 [id number] 11/03/24 13:48 Document 11/11/24 14:29 [id number] 11/11/24 14:46 Document 11/17/24 14:28 [id number] 11/17/24 14:30 11/03/24 11/11/24 11/17/24 13:39 14:29 14:28 Wound Center Nurse 2 #1 lt lat foot -Time 13:40 14:29 14:28 -Correct Patient Yes Yes Yes -Correct Side, Site, Position Yes Yes Yes -Correct Procedure Yes Yes Yes -Procedure Performed Yes Yes Yes -Type of Procedure Debridement Debridement Debridement -Clinical Debridement Bone Muscle / Fascia Bone -Tissue Removed Non-viable Muscle Non-viable tissue tissue -Post Debridement (cm) - Length 0.9 1.1 1.0 -Post Debridement (cm) - Width 1.3 1.0 1.0 -Post Debridement (cm) - Depth 0.8 0.8 1.5 -Total Square (Post) (cm) 1.17 1.10 1.00 -Area of Debridement (cm) - Length 0.9 1.1 1.0 -Area of Debridement (cm) - Width 1.3 1.0 1.0 -Total Square (Area) (cm) 1.17 1.10 1.00 -Tunneling No No No -Undermining/Tunneling No No No -Circular Undermining No No No -Wound/Ulcer Outcome Not Healed Not Healed Not Healed -Ulcer Cleansing Rinsed/ Rinsed/ Rinsed/ Irrigated with Irrigated with Irrigated with Saline Saline Saline -Foul Odor after Cleansing No No No -Bioengineered Tissue No Yes No -Type of Bioengineered Tissue Epifix 18mm Disc -Expiration Date 07/03/29 -Product Lot Number [id number] -Percent Used 100 -Lot number of Saline Used [id number] -Bleeding Controlled with Pressure, Pressure Pressure Surgifoam ? x 2 07/10 (sm) -Surgifoam (3/4 x 2 07/10) Small 1 -Treatment Response Procedure Procedure Procedure Tolerated Well Tolerated Well Tolerated Well -Offloading Yes No Yes -Type of Offloading Surgical Shoe Surgical Shoe -Assistive Device(s) Wheelchair -Debridement - Muscle / Fascia, 1st Yes 20sq cm -Debridement - Bone, 1st 20sq cm Yes Yes Pain Scale: 0-10 Numeric Is Patient Pain Free? Yes Yes Yes - Nurse 3 - General Ulcer D/C NN Start: 11/03/24 13:22 Freq: Status: Active Protocol: Activity Type Activity Date Activity User E-sign Co-sign Detail Recorded Client Recorded Date Recorded By Document 11/03/24 14:06 KW [id number] 11/03/24 14:06 KW Document 11/11/24 14:56 DL [id number] 11/11/24 14:57 DL Document 11/17/24 14:50 [facility] [id number] 11/17/24 14:52 [facility] 11/03/24 11/11/24 11/17/24 14:06 14:56 14:50 Wound Care Center Nurse 3 #1 lt lat foot -Ulcer Cleansing Rinsed/ Rinsed/ Irrigated with Irrigated with Saline Saline -Foul Odor after Cleansing No No -Primary Dressing Applied Silicone Border Foam 4x4, Silvercel -Other Dressing Epifix betadine soaked gauze -Primary Dressing Covered/Secured with Dry Gauze & Dry Gauze & Roll Gauze Roll Gauze, Secured with Tape -Silicone Border Foam 4x4 1 -Silvercel 1 LLE -Compression Wrap Reena Wrap -Other reena to secure Treatment Response Procedure Procedure Tolerated Well Tolerated Well Pain Scale: 0-10 Numeric Is Patient Pain Free? Yes Yes Yes - Visit Discharge Discharge Condition Stable Stable Stable Ambulatory Status Wheelchair Wheelchair Wheelchair Transportation Private Auto Private Auto Private Auto Accompanied by Medication Reconcilliation completed & No provided to patient/care provider Clinical Summary of Care Provided Yes Assessment/Plan Assessment/Plan (1) Cellulitis of left lower limb: CODE(S): L03.116 - Cellulitis of left lower limb PLAN: Patient was examined and evaluated. All findings were discussed with the patient. All questions were answered to the patient's satisfaction. Excisional debridement down to including subcutaneous tissue, muscle, fascia andbone with a number 5 mm dermal curette to the lateral fifth metatarsal head full-thickness wound left foot done withoutincident. Postdebridement measurement was 0.9 x 0.9 x 1.0 cm. Postoperative measurement is 1.0 x 1.0 x 1.5 cm. Left lower extremity left clean and patted dry. Betadine soaked gauze followed by dry sterile dressing compression wrap were donned. Patient perform daily dressing change. After review of the patient's microbiology results the patient will be placed onciprofloxacin 750 mg twice daily for 2 weeks. Due to the concern for bone infection we will extend this antibiotic for an additional 2 to 4 weeks after the initial 2-week course. Educated the patient and his to continue to offload his bilateral lower extremity. If the patient fails outpatient conservative treatment we will recommend surgical intervention for removal of the infected bone at the level of the fifthmetatarsal head left foot. All risk and benefits were discussed with patient great detail. Follow-up at the wound care center with Dr. Shaikh in 1 week. (2) Non-pressure chronic ulcer of other part of left foot with necrosis of bone: CODE(S): L97.524 - Non-pressure chronic ulcer of other part of left foot with necrosis of bone (3) Other hereditary and idiopathic neuropathies: CODE(S): G60.8 - Other hereditary and idiopathic neuropathies 11/17/24 1533 Cosigner Signature (if applicable): CC: ~ Signed [facility]07-11-2025 Progress note Author Rosalina Bergman [facility] Note Date/Time November 12, 2024 10:4 2am [facility] [address] [place] [address] Progress Note - Wound Care 11/11/24 1722 MR#: [id number] Acct: [id number] Name: MAIDA POLANCO Rep #:[id number] : 1980 44 From: Rosalina HERNANDEZ PCP: Dr. Markel Bell MD Status:RE G RCR Location: History of Present Illness Date of Service: 11/11/24 Chief Complaint: Full-thickness wound, left foot History of Wound: Patient quadriplegic follows up for left plantar fifth MPJ ulceration which started as a pressure ulceration. Patient denies constitutional symptoms pain or any changes since previous visit. Progress of Wound: Stable full-thickness wound to the lateral side of the left foot. Subjective Subjective I am seeing Mr. Polanco today as a courtesy visit for Dr. Shaikh. He has just been approved for Epifix application. His provides his wound care; she reports no concerning changes. Objective Data Objective Data Vital Signs: Vital Signs Temp Pulse Resp BP O2 Del Method 97.9 F 68 18 91/59 L Room Air 11/11/24 14:02 11/11/24 14:02 11/11/24 14:02 11/11/24 14:02 11/11/24 14:02 Oxygen Delivery Method Room Air Lab / Micro Data Micro: Microbiology 11/03/24 13:47 Ulcer, Decubitus - Left Foot Gram Stain - Final 11/03/24 13:47 Ulcer, Decubitus - Left Foot Wound Culture - Final Staphylococcus caprae Proteus mirabilis 11/03/24 13:47 Ulcer, Decubitus - Left Foot Anaerobic Culture - Final No anaerobic bacteria isolated. Charges/Coding Procedures Integumentary 150xxx-152xx: 42780 Skin sub graft trnk/arm/leg Physical Exam Const alert, oriented x3 and no apparent distress HEENT normocephalic Resp normal respiratory effort and no use of accessory muscles Effort and Inspection: able to speak in complete sentences Cardio regular rate and regular rhythm Extremity Extremity Narrative: Palpable pedal pulses, trace edema bilaterally Skin Wound Narrative: Full-thickness wound to the lateral aspect of the fifth metatarsal head measuring 1.1 x 1.0 x 0.8 cm. Wound base is granular nature with positive probeto bone. No periwound erythema is noted. Psych affect normal Appearance: grossly normal Speech: normal speech Debridement Note Debridement Note Wound debrided: L lateral foot Laterality: Left Type of Debridement: Excisional debridement Depth: to bone Percentage of wound debrided: 100 Instrument Used: 3mm curette Tissue Removed: slough, devitalized tissue Amount of bleeding with debridement: Mild Bleeding Controlled with: Pressure Patient tolerated procedure: Patient tolerated procedure well Post-Debridement Measurements and Additional Note: Post-Debridement Measurements/Treatment - Nurse 1 - General Ulcer Assessment Start: 11/03/24 13:22 Freq: Status: Active Protocol: DANIS Activity Type Activity Date Activity User E-sign Co-sign Detail Recorded Client Recorded Date Recorded By Document 11/03/24 13:22 [facility] [id number] 11/03/24 13:30 BM Document 11/11/24 14:02 KW [id number] 11/11/24 14:13 KW 11/03/24 11/11/24 13:22 14:02 - Today's Visit Information Type of service Follow-up Visit Follow-up Visit (Physician/GRAPHIC EDITOR (Physician/GRAPHIC EDITOR ) ) Arrival Mode Wheelchair Ambulatory Transfer Assistance None Patient Identification Verified (Name & Yes Yes ) Patient Requires Transmission-Based No Precautions Vital Signs Temperature (97.8 F-99.1 F) 97 F L 97.9 F Temperature Source Temporal Temporal Pulse Rate (60-100) 16 L 68 Pulse Location Monitor Monitor Respiratory Rate (12-18) 50 H 18 Respiratory rate source Observation Observation Oxygen Delivery Method Room Air Room Air Blood Pressure (90/60-120/80) 153/91 H 91/59 L Blood Pressure Mean (mm Hg) 111 69 Source Monitor Monitor Position Sitting Sitting Blood Pressure Location Left Arm Left Arm History Since Last Visit- (Skip if this is Patient's initial visit) Have you changed medications since your No No last visit? Any new allergies or adverse reactions No No Had a fall/change in ADL's that may No No increase risk of falls Signs or symptoms of abuse and/or No No neglect since last visit Have you been in the hospital since your No No last visit? Has dressing in place as prescribed Yes Yes Has compression in place as prescribed N/A Yes Has offloadiing in place as prescribed Yes Yes Experienced any changes in pain level or No No management Left Footwear Surgical Shoe Regular Shoe with pressure relief insole Right Footwear Regular Shoe Regular Shoe Pain Scale: 0-10 Numeric Is Patient Pain Free? Yes Yes WC - Nurse 1 - General Ulcer Measurement Start: 11/03/24 13:22 Freq: Status: Active Protocol: Activity Type Activity Date Activity User E-sign Co-sign Detail Recorded Client Recorded Date Recorded By Document 11/03/24 13:22 [facility] [id number] 11/03/24 13:30 [facility] Document 11/11/24 14:02 [id number] 11/11/24 14:13 11/03/24 11/11/24 13:22 14:02 Wound Center Nurse 1 #1 lt lat foot -Combined with other wound No -Current Size (cm) - Length 1.1 1 -Current Size (cm) - Width 1.2 1.2 -Current Size (cm) - Depth 0.4 0.8 -Total Square Cm 1.32 1.2 -Date of Last Picture (Recall this 11/03/24 11/11/24 field) -Photo Taken Yes -Epithelialization None Present -Tunneling No -Exudate Amt Medium Medium -Exudate Type Serosanguineous Serosanguineous -Wound Margin Distinct, Thickened Outline Attached -Granulation Amt Large (67-100%) Large (67-100%) -Granulation Quality Red Red -Slough/Fibrin Yes -Necrosis Amt Small (1-33%) -Necrotic Tissue Type Adherent Slough -Structure Exposed Bone -Texture (Livier-wound Skin Appearance) Assessed Assessed -Moisture (Livier-wound Skin Appearance) Assessed Assessed -Color (Livier-wound Skin Appearance) Assessed, Assessed, Erythema Erythema -Temperature (Livier-wound Skin No Abnormality No Abnormality Appearance) (Pt Warm) (Pt Warm) -Tenderness on Palpation (Livier-wound No No Skin Appearance) -Ulcer Cleansing Rinsed/ Soap and Water Irrigated with Saline -Foul Odor after Cleansing No No -Anesthetic Used 5% Lidocaine 5% Lidocaine Gel Gel WC - Nurse 2 - General Ulcer CM Notes Start: 11/03/24 13:22 Freq: Status: Active Protocol: Activity Type Activity Date Activity User E-sign Co-sign Detail Recorded Client Recorded Date Recorded By Document 11/03/24 13:39 [id number] 11/03/24 13:48 Document 11/11/24 14:29 [id number] 11/11/24 14:46 11/03/24 11/11/24 13:39 14:29 Wound Center Nurse 2 #1 lt lat foot -Time 13:40 14:29 -Correct Patient Yes Yes -Correct Side, Site, Position Yes Yes -Correct Procedure Yes Yes -Procedure Performed Yes Yes -Type of Procedure Debridement Debridement -Clinical Debridement Bone Muscle / Fascia -Tissue Removed Non-viable Muscle tissue -Post Debridement (cm) - Length 0.9 1.1 -Post Debridement (cm) - Width 1.3 1.0 -Post Debridement (cm) - Depth 0.8 0.8 -Total Square (Post) (cm) 1.17 1.10 -Area of Debridement (cm) - Length 0.9 1.1 -Area of Debridement (cm) - Width 1.3 1.0 -Total Square (Area) (cm) 1.17 1.10 -Tunneling No No -Undermining/Tunneling No No -Circular Undermining No No -Wound/Ulcer Outcome Not Healed Not Healed -Ulcer Cleansing Rinsed/ Rinsed/ Irrigated with Irrigated with Saline Saline -Foul Odor after Cleansing No No -Bioengineered Tissue No Yes -Type of Bioengineered Tissue Epifix 18mm Disc -Expiration Date 07/03/29 -Product Lot Number [id number] -Percent Used 100 -Lot number of Saline Used [id number] -Bleeding Controlled with Pressure, Pressure Surgifoam ? x 2 3/8 (sm) -Surgifoam (3/4 x 2 3/8) Small 1 -Treatment Response Procedure Procedure Tolerated Well Tolerated Well -Offloading Yes No -Type of Offloading Surgical Shoe -Assistive Device(s) Wheelchair -Debridement - Muscle / Fascia, 1st Yes 20sq cm -Debridement - Bone, 1st 20sq cm Yes Pain Scale: 0-10 Numeric Is Patient Pain Free? Yes Yes WC - Nurse 3 - General Ulcer D/C NN Start: 11/03/24 13:22 Freq: Status: Active Protocol: Activity Type Activity Date Activity User E-sign Co-sign Detail Recorded Client Recorded Date Recorded By Document 11/03/24 14:06 KW [id number] 11/03/24 14:06 KW Document 11/11/24 14:56 DL [id number] 11/11/24 14:57 DL 11/03/24 11/11/24 14:06 14:56 Wound Care Center Nurse 3 #1 lt lat foot -Ulcer Cleansing Rinsed/ Irrigated with Saline -Foul Odor after Cleansing No -Primary Dressing Applied Silicone Border Foam 4x4, Silvercel -Other Dressing Epifix -Primary Dressing Covered/Secured with Dry Gauze & Roll Gauze -Silicone Border Foam 4x4 1 -Silvercel 1 Treatment Response Procedure Tolerated Well Pain Scale: 0-10 Numeric Is Patient Pain Free? Yes Yes WC - Visit Discharge Discharge Condition Stable Stable Ambulatory Status Wheelchair Wheelchair Transportation Private Auto Private Auto Medication Reconcilliation completed & No provided to patient/care provider Clinical Summary of Care Provided Yes Assessment/Plan Assessment/Plan (1) Other hereditary and idiopathic neuropathies: CODE(S): G60.8 - Other hereditary and idiopathic neuropathies (2) Non-pressure chronic ulcer of other part of left foot with necrosis of bone: CODE(S): L97.524 - Non-pressure chronic ulcer of other part of left foot with necrosis of bone PLAN: Plan Patient was approved for Epifix and we decided to start 1st application today. The wound was debrided to remove all devitalized tissue and to obtain a well- bleeding wound bed. The area was then cleansed with sterile saline. Then using sterile precautions Epifix graft #1 was applied to the wound base in the appropriate orientation. This was secured with wound veil and steri-strips and then covered with a foam-border dressing. They are instructed to leave this dressing in place for the next week taking care to keep it clean and dry at all times. They may change the outer dressing as needed to manage drainage. Patient will follow-up in [address] Shaikh. 11/12/24 1042 <Electronically signed by Rosalina HERNANDEZ> Cosigner Signature (if applicable): CC: ~ Signed [facility] Work Phone: [phone] 625-839007-11-2025 Progress note [facility] [address] [place] [address] Progress Note - Wound Care 11/11/24 1722 MR#: [id number] Acct: [id number] Name: MAIDA POLANCO Rep #:[id number] : 1980 44 From: Rosalina HERNANDEZ PCP: Dr. Markel Bell MD Status:RE G RCR Location: History of Present Illness Date of Service: 11/11/24 Chief Complaint: Full-thickness wound, left foot History of Wound: Patient quadriplegic follows up for left plantar fifth MPJ ulceration which started as a pressure ulceration. Patient denies constitutional symptoms pain or any changes since previous visit. Progress of Wound: Stable full-thickness wound to the lateral side of the left foot. Subjective Subjective I am seeing Mr. Polanco today as a courtesy visit for Dr. Shaikh. He has just been approved for Epifixapplication. His provides his wound care; she reports no concerning changes. Objective Data Objective Data Vital Signs: Vital Signs Temp Pulse Resp BP O2 Del Method 97.9 F 68 18 91/59 L Room Air 11/11/24 14:02 11/11/24 14:02 11/11/24 14:02 11/11/24 14:02 11/11/24 14:02 Oxygen Delivery Method Room Air Lab / Micro Data Micro: Microbiology 11/03/24 13:47 Ulcer, Decubitus - Left Foot Gram Stain - Final 11/03/24 13:47 Ulcer, Decubitus - Left Foot Wound Culture - Final Staphylococcus caprae Proteus mirabilis 11/03/24 13:47 Ulcer, Decubitus - Left Foot Anaerobic Culture - Final No anaerobic bacteria isolated. Charges/Coding Procedures Integumentary 150xxx-152xx: [id number] Skin sub graft trnk/arm/leg Physical Exam Const alert, oriented x3 and no apparent distress HEENT normocephalic Resp normal respiratory effort and no use of accessory muscles Effort and Inspection: able to speak in complete sentences Cardio regular rate and regular rhythm Extremity Extremity Narrative: Palpable pedal pulses, trace edema bilaterally Skin Wound Narrative: Full-thickness wound to the lateral aspect of the fifth metatarsal head measuring 1.1 x 1.0 x 0.8 cm. Wound base is granular nature with positive probeto bone. No periwound erythema is noted. Psych affect normal Appearance: grossly normal Speech: normal speech Debridement Note Debridement Note Wound debrided: L lateral foot Laterality: Left Type of Debridement: Excisional debridement Depth: to bone Percentage of wound debrided: 100 Instrument Used: 3mm curette Tissue Removed: slough, devitalized tissue Amount of bleeding with debridement: Mild Bleeding Controlled with: Pressure Patient tolerated procedure: Patient tolerated procedure well Post-Debridement Measurements and Additional Note: Post-Debridement Measurements/Treatment - Nurse 1 - General Ulcer Assessment Start: 11/03/24 13:22 Freq: Status: Active Protocol: DANIS Activity Type Activity Date Activity User E-sign Co-sign Detail Recorded Client Recorded Date Recorded By Document 11/03/24 13:22 [facility] [id number] 11/03/24 13:30 [facility] Document 11/11/24 14:02 KW [id number] 11/11/24 14:13 11/03/24 11/11/24 13:22 14:02 WC - Today's Visit Information Type of service Follow-up Visit Follow-up Visit (Physician/GRAPHIC EDITOR (Physician/GRAPHIC EDITOR ) ) Arrival Mode Wheelchair Ambulatory Transfer Assistance None Patient Identification Verified (Name & Yes Yes ) Patient Requires Transmission-Based No Precautions Vital Signs Temperature (97.8 F-99.1 F) 97 F L 97.9 F Temperature Source Temporal Temporal Pulse Rate (60-100) 16 L 68 Pulse Location Monitor Monitor Respiratory Rate (12-18) 50 H 18 Respiratory rate source Observation Observation Oxygen Delivery Method Room Air Room Air Blood Pressure (90/60-120/80) 153/91 H 91/59 L Blood Pressure Mean (mm Hg) 111 69 Source Monitor Monitor Position Sitting Sitting Blood Pressure Location Left Arm Left Arm History Since Last Visit- (Skip if this is Patient's initial visit) Have you changed medications since your No No last visit? Any new allergies or adverse reactions No No Had a fall/change in ADL's that may No No increase risk of falls Signs or symptoms of abuse and/or No No neglect since last visit Have you been in the hospital since your No No last visit? Has dressing in place as prescribed Yes Yes Has compression in place as prescribed N/A Yes Has offloadiing in place as prescribed Yes Yes Experienced any changes in pain level or No No management Left Footwear Surgical Shoe Regular Shoe with pressure relief insole Right Footwear Regular Shoe Regular Shoe Pain Scale: 0-10 Numeric Is Patient Pain Free? Yes Yes - Nurse 1 - General Ulcer Measurement Start: 11/03/24 13:22 Freq: Status: Active Protocol: Activity Type Activity Date Activity User E-sign Co-sign Detail Recorded Client Recorded Date Recorded By Document 11/03/24 13:22 [facility] [id number] 11/03/24 13:30 [facility] Document 11/11/24 14:02 KW [id number] 11/11/24 14:13 11/03/24 11/11/24 13:22 14:02 Wound Center Nurse 1 #1 lt lat foot -Combined with other wound No -Current Size (cm) - Length 1.1 1 -Current Size (cm) - Width 1.2 1.2 -Current Size (cm) - Depth 0.4 0.8 -Total Square Cm 1.32 1.2 -Date of Last Picture (Recall this 11/03/24 11/11/24 field) -Photo Taken Yes -Epithelialization None Present -Tunneling No -Exudate Amt Medium Medium -Exudate Type Serosanguineous Serosanguineous -Wound Margin Distinct, Thickened Outline Attached -Granulation Amt Large (67-100%) Large (67-100%) -Granulation Quality Red Red -Slough/Fibrin Yes -Necrosis Amt Small (1-33%) -Necrotic Tissue Type Adherent Slough -Structure Exposed Bone -Texture (Livier-wound Skin Appearance) Assessed Assessed -Moisture (Livier-wound Skin Appearance) Assessed Assessed -Color (Livier-wound Skin Appearance) Assessed, Assessed, Erythema Erythema -Temperature (Livier-wound Skin No Abnormality No Abnormality Appearance) (Pt Warm) (Pt Warm) -Tenderness on Palpation (Livier-wound No No Skin Appearance) -Ulcer Cleansing Rinsed/ Soap and Water Irrigated with Saline -Foul Odor after Cleansing No No -Anesthetic Used 5% Lidocaine 5% Lidocaine Gel Gel WC - Nurse 2 - General Ulcer CM Notes Start: 11/03/24 13:22 Freq: Status: Active Protocol: Activity Type Activity Date Activity User E-sign Co-sign Detail Recorded Client Recorded Date Recorded By Document 11/03/24 13:39 [id number] 11/03/24 13:48 Document 11/11/24 14:29 [id number] 11/11/24 14:46 11/03/24 11/11/24 13:39 14:29 Wound Center Nurse 2 #1 lt lat foot -Time 13:40 14:29 -Correct Patient Yes Yes -Correct Side, Site, Position Yes Yes -Correct Procedure Yes Yes -Procedure Performed Yes Yes -Type of Procedure Debridement Debridement -Clinical Debridement Bone Muscle / Fascia -Tissue Removed Non-viable Muscle tissue -Post Debridement (cm) - Length 0.9 1.1 -Post Debridement (cm) - Width 1.3 1.0 -Post Debridement (cm) - Depth 0.8 0.8 -Total Square (Post) (cm) 1.17 1.10 -Area of Debridement (cm) - Length 0.9 1.1 -Area of Debridement (cm) - Width 1.3 1.0 -Total Square (Area) (cm) 1.17 1.10 -Tunneling No No -Undermining/Tunneling No No -Circular Undermining No No -Wound/Ulcer Outcome Not Healed Not Healed -Ulcer Cleansing Rinsed/ Rinsed/ Irrigated with Irrigated with Saline Saline -Foul Odor after Cleansing No No -Bioengineered Tissue No Yes -Type of Bioengineered Tissue Epifix 18mm Disc -Expiration Date 07/03/29 -Product Lot Number [id number] -Percent Used 100 -Lot number of Saline Used [id number] -Bleeding Controlled with Pressure, Pressure Surgifoam ? x 2 3/8 (sm) -Surgifoam (3/4 x 2 3/8) Small 1 -Treatment Response Procedure Procedure Tolerated Well Tolerated Well -Offloading Yes No -Type of Offloading Surgical Shoe -Assistive Device(s) Wheelchair -Debridement - Muscle / Fascia, 1st Yes 20sq cm -Debridement - Bone, 1st 20sq cm Yes Pain Scale: 0-10 Numeric Is Patient Pain Free? Yes Yes WC - Nurse 3 - General Ulcer D/C NN Start: 11/03/24 13:22 Freq: Status: Active Protocol: Activity Type Activity Date Activity User E-sign Co-sign Detail Recorded Client Recorded Date Recorded By Document 11/03/24 14:06 KW [id number] 11/03/24 14:06 KW Document 11/11/24 14:56 DL [id number] 11/11/24 14:57 DL 11/03/24 11/11/24 14:06 14:56 Wound Care Center Nurse 3 #1 lt lat foot -Ulcer Cleansing Rinsed/ Irrigated with Saline -Foul Odor after Cleansing No -Primary Dressing Applied Silicone Border Foam 4x4, Silvercel -Other Dressing Epifix -Primary Dressing Covered/Secured with Dry Gauze & Roll Gauze -Silicone Border Foam 4x4 1 -Silvercel 1 Treatment Response Procedure Tolerated Well Pain Scale: 0-10 Numeric Is Patient Pain Free? Yes Yes WC - Visit Discharge Discharge Condition Stable Stable Ambulatory Status Wheelchair Wheelchair Transportation Private Auto Private Auto Medication Reconcilliation completed & No provided to patient/care provider Clinical Summary of Care Provided Yes Assessment/Plan Assessment/Plan (1) Other hereditary and idiopathic neuropathies: CODE(S): G60.8 - Other hereditary and idiopathic neuropathies (2) Non-pressure chronic ulcer of other part of left foot with necrosis of bone: CODE(S): L97.524 - Non-pressure chronic ulcer of other part of left foot with necrosis of bone PLAN: Plan Patient was approved for Epifix and we decided to start 1st application today. The wound was debrided to remove all devitalized tissue and to obtain a well- bleeding wound bed. The area was then cleansed with sterile saline. Then using sterile precautions Epifix graft #1 was applied to the wound base in the appropriate orientation. This was secured with wound veil and steri-strips and then coveredwith a foam-border dressing. They are instructed to leave this dressing in place for the next week taking care to keep it clean and dry at all times. They may change the outer dressing as needed to manage drainage. Patient will follow-up in [address] Shaikh. 11/12/24 1042 Cosigner Signature (if applicable): CC: ~ Signed [facility]07-09-2025 Telephone encounter Note* Telephone Encounter - Zaira Phillips - 11/10/2024 4:18 PM EDT Mrs. Polanco called to schedule Botox as it has been approved 11/02/24 - 11/02/25. Appointment scheduled. Discussed changes to insurance 12/03 - noted 11/19 appointment [id number] Miscellaneous Notes* Telephone Encounter - Zaira Phillips - 11/10/2024 4:18 PM EDT Mrs. Polanco called to schedule Botox as it has been approved 11/02/24 - 11/02/25. Appointment scheduled. Discussed changes to insurance 12/03 - noted 11/19 appointment documented in this [id number] History and physical note Author Les Shaikh [facility] Note Date/Time November 05, 2024 6:36p m [facility] [address] [place] [address] H&P Exam - Wound Care 11/05/24 1826 MR#: [id number] Acct: [id number] Name: MAIDA POLANCO Rep #:[id number] : 1980 44 From: Les Shaikh D PM PCP: Dr. Markel Bell MD Status:RE G RCR Location: History of Present Illness Date of Service: 11/05/24 Chief Complaint: Full-thickness wound, left foot History of Wound: Patient quadriplegic follows up for left plantar fifth MPJ ulceration which started as a pressure ulceration. Patient denies constitutional symptoms pain or any changes since previous visit. Progress of Wound: Stable full-thickness wound to the lateral side of the left foot. [facility] Medical History Hypertension Home Medications ?Medication ?Instructions ?Recorded ?Last Taken ?Type baclofen 5 mg tablet mg PO 09/14/24 Unknown Histo ry bupropion HCl 100 mg tablet 100 mg PO Q12.TCU 09/14/24 Unknown History cholecalciferol (vitamin D3) 125 5,000 unit PO DAILY 0 09/14/24 Unknown History mcg (5,000 unit) tablet diclofenac sodium 1 % topical gel 4 ea topical Q6H PRN PRN muscle 09/14/24 Unknown History pain docusate sodium 283 mg-benzocaine ml MS 09/14/24 Unkno wn History 20 mg/5 mL enema (Enemeez Plus) ergocalciferol (vitamin D2) 1,250 2,500 mcg PO DAILY 0 09/14/24 Unknown History mcg (50,000 unit) capsule (Vitamin D2) gabapentin 400 mg capsule 400 mg PO TID 09/14/24 Unkno wn History melatonin 3 mg capsule 3 mg PO QHS 09/14/24 Unknown History midodrine 5 mg tablet mg PO 09/14/24 Unknown Histo ry oxycodone 5 mg tablet 5 mg PO Q8H PRN PRN severe p ain 09/14/24 Unknown History sennosides 8.6 mg tablet (senna) 8.6 mg PO BID PRN PRN constipation 09/14/24 Unknown History sodium phosphates 19 gram-7 1 MS UD 09/14/24 Unknown H istory gram/118 mL enema (Fleet Enema) tolterodine 1 mg tablet 1 mg PO BID 09/14/24 Unknown History vibegron 75 mg tablet (Gemtesa) 75 mg PO DAILY 5 Unknown History doxycycline hyclate 100 mg tablet 100 mg PO BID #20 ta bs 10/05/24 Unknown Rx Allergy/AdvReac Type Severity Reaction Status Date / Time No Known Allergies Allergy Verified 09/14/24 10:55 Surgical History Hx of cholecystectomy Social History Smoking Status: Never smoker Physical Exam Narrative Vascular: DP and PT pulses are palpable to left lower extremity. CFT is brisk. No evidence of erythema to the left foot. Skin temperature is warm to cool fromproximal ankle to distal digits to the left extremity. Neurological: Patient is quadriplegic and does not have light touch and does nothave protective sensation. Dermatological: Evidence of full-thickness wound to the lateral aspect of the fifth metatarsal head measuring 0.9 x 1.3 x 0.8 cm. Wound base is granular nature with positive probe to bone. No periwound erythema is noted. Excisional debridement down to and including subcutaneous tissue, fascia muscle and bone with a sterile rongeur done without incident. Predebridement measurement was 0.7 x 1.2 x 0.5 cm. Postdebridement measurement is 0.9 x 1.3 x 0.8 cm. Musculoskeletal: Muscle strength 0 out of 5 to left lower extremity. No pain topalpation of the full-thickness wound. No pain with calf pressure. Debridement Note Debridement Note Debridement Free Text: Excisional debridement down to and including subcutaneoustissue, fascia muscle and bone with a sterile rongeur done without incident. Predebridement measurement was 0.7 x 1.2 x 0.5 cm. Postdebridement measurement is 0.9 x 1.3 x 0.8 cm. Post-Debridement Measurements and Additional Note: Post-Debridement Measurements/Treatment - Nurse 1 - General Ulcer Assessment Start: 11/03/24 13:22 Freq: Status: Active Protocol: DANIS Activity Type Activity Date Activity User E-sign Co-sign Detail Recorded Client Recorded Date Recorded By Document 11/03/24 13:22 [facility] [id number] 11/03/24 13:30 [facility] 11/03/24 13:22 RUDI - Today's Visit Information Type of service Follow-up Visit (Physician/GRAPHIC EDITOR ) Arrival Mode Wheelchair Transfer Assistance None Patient Identification Verified (Name & Yes ) Patient Requires Transmission-Based No Precautions Vital Signs Temperature (97.8 F-99.1 F) 97 F L Temperature Source Temporal Pulse Rate (60-100) 16 L Pulse Location Monitor Respiratory Rate (12-18) 50 H Respiratory rate source Observation Oxygen Delivery Method Room Air Blood Pressure (90/60-120/80) 153/91 H Blood Pressure Mean 111 Source Monitor Position Sitting Blood Pressure Location Left Arm History Since Last Visit- (Skip if this is Patient's initial visit) Have you changed medications since your No last visit? Any new allergies or adverse reactions No Had a fall/change in ADL's that may No increase risk of falls Signs or symptoms of abuse and/or No neglect since last visit Have you been in the hospital since your No last visit? Has dressing in place as prescribed Yes Has compression in place as prescribed N/A Has offloadiing in place as prescribed Yes Experienced any changes in pain level or No management Left Footwear Surgical Shoe with pressure relief insole Right Footwear Regular Shoe Pain Scale: 0-10 Numeric Is Patient Pain Free? Yes - Nurse 1 - General Ulcer Measurement Start: 11/03/24 13:22 Freq: Status: Active Protocol: Activity Type Activity Date Activity User E-sign Co-sign Detail Recorded Client Recorded Date Recorded By Document 11/03/24 13:22 [facility] [id number] 11/03/24 13:30 [facility] 11/03/24 13:22 Wound Center Nurse 1 #1 lt lat foot -Combined with other wound No -Current Size (cm) - Length 1.1 -Current Size (cm) - Width 1.2 -Current Size (cm) - Depth 0.4 -Total Square Cm 1.32 -Date of Last Picture (Recall this 11/03/24 field) -Photo Taken Yes -Epithelialization None Present -Tunneling No -Exudate Amt Medium -Exudate Type Serosanguineous -Wound Margin Distinct, Outline Attached -Granulation Amt Large (67-100%) -Granulation Quality Red -Slough/Fibrin Yes -Necrosis Amt Small (1-33%) -Necrotic Tissue Type Adherent Slough -Texture (Livier-wound Skin Appearance) Assessed -Moisture (Livier-wound Skin Appearance) Assessed -Color (Livier-wound Skin Appearance) Assessed, Erythema -Temperature (Livier-wound Skin No Abnormality Appearance) (Pt Warm) -Tenderness on Palpation (Livier-wound No Skin Appearance) -Ulcer Cleansing Rinsed/ Irrigated with Saline -Foul Odor after Cleansing No -Anesthetic Used 5% Lidocaine Gel WC - Nurse 2 - General Ulcer CM Notes Start: 11/03/24 13:22 Freq: Status: Active Protocol: Activity Type Activity Date Activity User E-sign Co-sign Detail Recorded Client Recorded Date Recorded By Document 11/03/24 13:39 [id number] 11/03/24 13:48 11/03/24 13:39 Wound Center Nurse 2 -Time 13:40 -Correct Patient Yes -Correct Side, Site, Position Yes -Correct Procedure Yes -Procedure Performed Yes -Type of Procedure Debridement -Clinical Debridement Bone -Tissue Removed Non-viable tissue -Post Debridement (cm) - Length 0.9 -Post Debridement (cm) - Width 1.3 -Post Debridement (cm) - Depth 0.8 -Total Square (Post) (cm) 1.17 -Area of Debridement (cm) - Length 0.9 -Area of Debridement (cm) - Width 1.3 -Total Square (Area) (cm) 1.17 -Tunneling No -Undermining/Tunneling No -Circular Undermining No -Wound/Ulcer Outcome Not Healed -Ulcer Cleansing Rinsed/ Irrigated with Saline -Foul Odor after Cleansing No -Bioengineered Tissue No -Bleeding Controlled with Pressure, Surgifoam ? x 2 3/8 (sm) -Surgifoam (3/4 x 2 3/8) Small 1 -Treatment Response Procedure Tolerated Well -Offloading Yes -Type of Offloading Surgical Shoe -Assistive Device(s) Wheelchair -Debridement - Bone, 1st 20sq cm Yes Pain Scale: 0-10 Numeric Is Patient Pain Free? Yes WC - Nurse 3 - General Ulcer D/C NN Start: 11/03/24 13:22 Freq: Status: Active Protocol: Activity Type Activity Date Activity User E-sign Co-sign Detail Recorded Client Recorded Date Recorded By Document 11/03/24 14:06 KW [id number] 11/03/24 14:06 KW 11/03/24 14:06 Wound Care Center Nurse 3 #1 lt lat foot -Ulcer Cleansing Rinsed/ Irrigated with Saline -Primary Dressing Applied Silicone Border Foam 4x4, Silvercel -Silicone Border Foam 4x4 1 -Silvercel 1 Pain Scale: 0-10 Numeric Is Patient Pain Free? Yes WC - Visit Discharge Discharge Condition Stable Ambulatory Status Wheelchair Transportation Private Auto Medication Reconcilliation completed & No provided to patient/care provider Clinical Summary of Care Provided Yes Lab / Micro Data Micro: Microbiology 11/03/24 13:47 Ulcer, Decubitus - Left Foot Gram Stain - Final 11/03/24 13:47 Ulcer, Decubitus - Left Foot Wound Culture - Final Staphylococcus caprae 11/03/24 13:47 Ulcer, Decubitus - Left Foot Anaerobic Culture - Preliminary Checking for anaerobes, further studies to follow. Assessment/Plan Assessment/Plan (1) Other hereditary and idiopathic neuropathies: CODE(S): G60.8 - Other hereditary and idiopathic neuropathies PLAN: Patient was examined and evaluated. All findings were discussed with the patient. All questions were answered to the patient satisfaction. Excisional debridement down to and including subcutaneous tissue, fascia muscle and bone with a sterile rongeur done without incident. Predebridement measurement was 0.7 x 1.2 x 0.5 cm. Postdebridement measurement is 0.9 x 1.3 x 0.8 cm. Gelfoam was applied to the sanguinous drainage to the lateral left footonce drainage was resolved a culture was taken and the patient will be placed onantibiotics as needed. The area was dressed with Betadine soaked gauze, dry sterile dressing and light compression wrap. Due to the patient being nonambulatory I did discuss with the patient and his that there may be a need to move forward with elective surgery to remove the exposed bone, fifth metatarsal head and base of the proximal phalanx of the fifth digit of the left lower extremity. However they declined and would like to continue conservative treatment. I did educate them that if we continue to do conservative treatment and by the end of November to the beginning of December, we will not need to make a definitive procedure if the patient is not improved which they were understanding of. I will also make a letter of medical necessity for a flex step for the patient'sgarage to help transport the patient safely from their car to the garage. Patient will follow-up in [address] Gaines and will follow-up with myself Dr. Shaikh in 2 weeks (2) Non-pressure chronic ulcer of other part of left foot with necrosis of bone: CODE(S): L97.524 - Non-pressure chronic ulcer of other part of left foot with necrosis of bone 11/05/24 1836 <Electronically signed by Les Shaikh DPM> Cosigner Signature (if applicable): CC: ~ Signed [facility] Work Phone: [phone]) 192-990107-04-2025 History and physical note [facility] [address] [place] [address] H&P Exam - Wound Care 11/05/24 1826 MR#: [id number] Acct: [id number] Name: MAIDA POLANCO Rep #:[id number] : 1980 44 From: Les SORIANO PCP: Dr. Markel Bell MD Status:RE G R Location: History of Present Illness Date of Service: 11/05/24 Chief Complaint: Full-thickness wound, left foot History of Wound: Patient quadriplegic follows up for left plantar fifth MPJ ulceration which started as a pressure ulceration. Patient denies constitutional symptoms pain or any changes since previous visit. Progress of Wound: Stable full-thickness wound to the lateral side of the left foot. [facility] Medical History Hypertension Home Medications ?Medication ?Instructions ?Recorded ?Last Taken ?Type baclofen 5 mg tablet mg PO 09/14/24 Unknown Histo ry bupropion HCl 100 mg tablet 100 mg PO Q12.TCU 09/14/24 Unknown History cholecalciferol (vitamin D3) 125 5,000 unit PO DAILY 0 09/14/24 Unknown History mcg (5,000 unit) tablet diclofenac sodium 1 % topical gel 4 ea topical Q6H PRN PRN muscle 09/14/24 Unknown History pain docusate sodium 283 mg-benzocaine ml MS 09/14/24 Unkno wn History 20 mg/5 mL enema (Enemeez Plus) ergocalciferol (vitamin D2) 1,250 2,500 mcg PO DAILY 0 09/14/24 Unknown History mcg (50,000 unit) capsule (Vitamin D2) gabapentin 400 mg capsule 400 mg PO TID 09/14/24 Unkno wn History melatonin 3 mg capsule 3 mg PO QHS 09/14/24 Unknown History midodrine 5 mg tablet mg PO 09/14/24 Unknown Histo ry oxycodone 5 mg tablet 5 mg PO Q8H PRN PRN severe p ain 09/14/24 Unknown History sennosides 8.6 mg tablet (senna) 8.6 mg PO BID PRN PRN constipation 09/14/24 Unknown History sodium phosphates 19 gram-7 1 MS UD 09/14/24 Unknown H istory gram/118 mL enema (Fleet Enema) tolterodine 1 mg tablet 1 mg PO BID 09/14/24 Unknown History vibegron 75 mg tablet (Gemtesa) 75 mg PO DAILY 5 Unknown History doxycycline hyclate 100 mg tablet 100 mg PO BID #20 ta bs 10/05/24 Unknown Rx Allergy/AdvReac Type Severity Reaction Status Date / Time No Known Allergies Allergy Verified 09/14/24 10:55 Surgical History Hx of cholecystectomy Social History Smoking Status: Never smoker Physical Exam Narrative Vascular: DP and PT pulses are palpable to left lower extremity. CFT is brisk. No evidence of erythema to the left foot. Skin temperature is warm to cool fromproximal ankle to distal digits to the left extremity. Neurological: Patient is quadriplegic and does not have light touch and does nothave protective sensation. Dermatological: Evidence of full-thickness wound to the lateral aspect of the fifth metatarsal headmeasuring 0.9 x 1.3 x 0.8 cm. Wound base is granular nature with positive probe to bone. No periwound erythema is noted. Excisional debridement down to and including subcutaneous tissue, fascia muscle and bone with a sterile rongeur done without incident. Predebridement measurement was 0.7 x 1.2 x 0.5 cm. Postdebridement measurement is 0.9 x 1.3 x 0.8 cm. Musculoskeletal: Muscle strength 0 out of 5 to left lower extremity. No pain topalpation of the full-thickness wound. No pain with calf pressure. Debridement Note Debridement Note Debridement Free Text: Excisional debridement down to and including subcutaneoustissue, fascia muscle and bone with a sterile rongeur done without incident. Predebridement measurement was 0.7 x 1.2 x0.5 cm. Postdebridement measurement is 0.9 x 1.3 x 0.8 cm. Post-Debridement Measurements and Additional Note: Post-Debridement Measurements/Treatment - Nurse 1 - General Ulcer Assessment Start: 11/03/24 13:22 Freq: Status: Active Protocol: DANIS Activity Type Activity Date Activity User E-sign Co-sign Detail Recorded Client Recorded Date Recorded By Document 11/03/24 13:22 [facility] [id number] 11/03/24 13:30 [facility] 11/03/24 13:22 - Today's Visit Information Type of service Follow-up Visit (Physician/GRAPHIC EDITOR ) Arrival Mode Wheelchair Transfer Assistance None Patient Identification Verified (Name & Yes ) Patient Requires Transmission-Based No Precautions Vital Signs Temperature (97.8 F-99.1 F) 97 F L Temperature Source Temporal Pulse Rate (60-100) 16 L Pulse Location Monitor Respiratory Rate (12-18) 50 H Respiratory rate source Observation Oxygen Delivery Method Room Air Blood Pressure (90/60-120/80) 153/91 H Blood Pressure Mean 111 Source Monitor Position Sitting Blood Pressure Location Left Arm History Since Last Visit- (Skip if this is Patient's initial visit) Have you changed medications since your No last visit? Any new allergies or adverse reactions No Had a fall/change in ADL's that may No increase risk of falls Signs or symptoms of abuse and/or No neglect since last visit Have you been in the hospital since your No last visit? Has dressing in place as prescribed Yes Has compression in place as prescribed N/A Has offloadiing in place as prescribed Yes Experienced any changes in pain level or No management Left Footwear Surgical Shoe with pressure relief insole Right Footwear Regular Shoe Pain Scale: 0-10 Numeric Is Patient Pain Free? Yes - Nurse 1 - General Ulcer Measurement Start: 11/03/24 13:22 Freq: Status: Active Protocol: Activity Type Activity Date Activity User E-sign Co-sign Detail Recorded Client Recorded Date Recorded By Document 11/03/24 13:22 [facility] [id number] 11/03/24 13:30 [facility] 11/03/24 13:22 Wound Center Nurse 1 #1 lt lat foot -Combined with other wound No -Current Size (cm) - Length 1.1 -Current Size (cm) - Width 1.2 -Current Size (cm) - Depth 0.4 -Total Square Cm 1.32 -Date of Last Picture (Recall this 11/03/24 field) -Photo Taken Yes -Epithelialization None Present -Tunneling No -Exudate Amt Medium -Exudate Type Serosanguineous -Wound Margin Distinct, Outline Attached -Granulation Amt Large (67-100%) -Granulation Quality Red -Slough/Fibrin Yes -Necrosis Amt Small (1-33%) -Necrotic Tissue Type Adherent Slough -Texture (Livier-wound Skin Appearance) Assessed -Moisture (Livier-wound Skin Appearance) Assessed -Color (Livier-wound Skin Appearance) Assessed, Erythema -Temperature (Livier-wound Skin No Abnormality Appearance) (Pt Warm) -Tenderness on Palpation (Livier-wound No Skin Appearance) -Ulcer Cleansing Rinsed/ Irrigated with Saline -Foul Odor after Cleansing No -Anesthetic Used 5% Lidocaine Gel - Nurse 2 - General Ulcer CM Notes Start: 11/03/24 13:22 Freq: Status: Active Protocol: Activity Type Activity Date Activity User E-sign Co-sign Detail Recorded Client Recorded Date Recorded By Document 11/03/24 13:39 [facility] [id number] 11/03/24 13:48 DARIN 11/03/24 13:39 Wound Center Nurse 2 -Time 13:40 -Correct Patient Yes -Correct Side, Site, Position Yes -Correct Procedure Yes -Procedure Performed Yes -Type of Procedure Debridement -Clinical Debridement Bone -Tissue Removed Non-viable tissue -Post Debridement (cm) - Length 0.9 -Post Debridement (cm) - Width 1.3 -Post Debridement (cm) - Depth 0.8 -Total Square (Post) (cm) 1.17 -Area of Debridement (cm) - Length 0.9 -Area of Debridement (cm) - Width 1.3 -Total Square (Area) (cm) 1.17 -Tunneling No -Undermining/Tunneling No -Circular Undermining No -Wound/Ulcer Outcome Not Healed -Ulcer Cleansing Rinsed/ Irrigated with Saline -Foul Odor after Cleansing No -Bioengineered Tissue No -Bleeding Controlled with Pressure, Surgifoam ? x 2 3/8 (sm) -Surgifoam (3/4 x 2 3/8) Small 1 -Treatment Response Procedure Tolerated Well -Offloading Yes -Type of Offloading Surgical Shoe -Assistive Device(s) Wheelchair -Debridement - Bone, 1st 20sq cm Yes Pain Scale: 0-10 Numeric Is Patient Pain Free? Yes WC - Nurse 3 - General Ulcer D/C NN Start: 11/03/24 13:22 Freq: Status: Active Protocol: Activity Type Activity Date Activity User E-sign Co-sign Detail Recorded Client Recorded Date Recorded By Document 11/03/24 14:06 KW [id number] 11/03/24 14:06 KW 11/03/24 14:06 Wound Care Center Nurse 3 #1 lt lat foot -Ulcer Cleansing Rinsed/ Irrigated with Saline -Primary Dressing Applied Silicone Border Foam 4x4, Silvercel -Silicone Border Foam 4x4 1 -Silvercel 1 Pain Scale: 0-10 Numeric Is Patient Pain Free? Yes WC - Visit Discharge Discharge Condition Stable Ambulatory Status Wheelchair Transportation Private Auto Medication Reconcilliation completed & No provided to patient/care provider Clinical Summary of Care Provided Yes Lab / Micro Data Micro: Microbiology 11/03/24 13:47 Ulcer, Decubitus - Left Foot Gram Stain - Final 11/03/24 13:47 Ulcer, Decubitus - Left Foot Wound Culture - Final Staphylococcus caprae 11/03/24 13:47 Ulcer, Decubitus - Left Foot Anaerobic Culture - Preliminary Checking for anaerobes, further studies to follow. Assessment/Plan Assessment/Plan (1) Other hereditary and idiopathic neuropathies: CODE(S): G60.8 - Other hereditary and idiopathic neuropathies PLAN: Patient was examined and evaluated. All findings were discussed with the patient. All questions were answered to the patient satisfaction. Excisional debridement down to and including subcutaneous tissue, fascia muscle and bone with a sterile rongeur done without incident. Predebridement measurement was 0.7 x 1.2 x 0.5 cm. Postdebridement measurement is 0.9 x 1.3 x 0.8 cm. Gelfoam was applied to the sanguinous drainage to the lateral left footonce drainage was resolved a culture was taken and the patient will be placed onantibioticsas needed. The area was dressed with Betadine soaked gauze, dry sterile dressing and light compression wrap. Due to the patient being nonambulatory I did discuss with the patient and his that there may be a need to move forward with elective surgery to remove the exposed bone, fifth metatarsal head andbase of the proximal phalanx of the fifth digit of the left lower extremity. However they declined and would like to continue conservative treatment. I did educate them that if we continue to do conservative treatment and by the end of November to the beginning of December, we will not need to make a definitive procedure if the patient is not improved which they were understanding of. I will also make a letter of medical necessity for a flex step for the patient'sgarage to help transport the patient safely from their car to the garage. Patient will follow-up in [address] Gaines and will follow-up with myself Dr. Shaikh in 2 weeks (2) Non-pressure chronic ulcer of other part of left foot with necrosis of bone: CODE(S): L97.524 - Non-pressure chronic ulcer of other part of left foot with necrosis of bone 11/05/24 0146 Cosigner Signature (if applicable): CC: ~ Signed [facility]07-01-2025 History of Present illness Narrative* Nayana Gifford - 11/02/2024 2:01 PM EDT Images from the original note were not included. SPECIALTY PHARMACY - Prior Auth APPROVED- MEDICAL BENEFIT MEDICATION DETAILS Medication(s): Dysport J0586 1500 units IM Q3M x 1 year Authorized Quantity: 4 Unit of Measure: Number of Visits Is Approval [facility] Specific?: No Insurance Payor: [facility] How was approval received?: Fax Auth Number: [id number] PA Follow Up Effective Start Date: 11/02/24 Effective End Date: 11/02/25 PA Notes: 5 units of J0586 is = to Dysport 300 unit vials x 5 for each dose The pharmacy will contact patient Maida Polanco and update him on the approval status. Pharmacy to contact patient regarding next step for medication fill. Encounter to be routed to appropriate autocad technician/pharmacist for medication fill outreach. Patient questions may be directed to: [phone] option 3 Thank you, Nayana Gifford Medication Activities Director [facility] [phone] opt 3 * Nayana Gifford - 11/02/2024 1:48 PM EDT Specialty Pharmacy PA Status Update: MEDICAL BENEFIT Medication and dosing: Dysport J0586 1500 units IM Q3M x 1 year Insurance: [employer] [place] Medicaid [id number] Perform RX [phone] Rep Name: Cris Status: Called plan to confirm the 5 units of J0586 is = to Dysport 300 unit vials x 5 for each dose Pharmacy will addend this encounter with response from plan. Thank you, Nayana Gifford Medication Activities Director [facility] [phone] opt 3 * Nayana Gifford - 11/02/2024 11:18 AM EDT SPECIALTY PHARMACY - Prior Auth Submitted- MEDICAL BENEFIT Medication and dosing: Dysport J0586 1500 units IM Q3M x 1 year Insurance: [employer] [place] Medicaid [id number] Provider: Cynthia Bloom MD Dept: PM&R DX: G82.50 (ICD-10-CM) - Tetraparesis (HCC); M62.838 (ICD-10-CM) - Muscle spasticity Previous Therapy: -- Baclofen 03/22/2024 - current -- Gabapentin 03/22/2024 - current -- OT/HEP 08/20/2024 - current PA submitted on date: 11/02/2024 FAX #: (URGENT) [email or web address] Pharmacy will addend this encounter with response from plan. Thank you, Nayana Gifford Medication Activities Director [facility] [phone] opt 3 * Cindy Pastor PharmD - 10/27/2024 10:41 AM EDT Images from the original note were not included. Specialty Pharmacy Onboarding Note: [facility] The specialty medication has been reviewed for appropriate use, dose, route, frequency and duration. Appropriate actions will follow, which may include a prior authorization, patient assistance, and/or sending to the appropriate filling pharmacy. Updates will be made within [employer]. Appointment Date: pending- due [facility]- 10/27 appt cancelled due to denial of Botox Referral #: [id number] Provider: Neelima Villarreal MD Medication:Dysport 1500u Im q 3mo Diagnosis: G82.50 (ICD-10-CM) - Tetraparesis (HCC) M62.838 (ICD-10-CM) - Muscle spasticity Please submit to medical Additional Information:preferred neurotoxin by ins Cindy Pastor PharmD * Nayana Gifford - 10/25/2024 2:47 PM EDT Images from the original note were not included. SPECIALTY PHARMACY - Prior Auth Denied- MEDICAL BENEFIT Medication(s): Botox J0585 400 units IM Q3M x 1 year Insurance Payor: [facility] The pharmacy received notice that a prior authorization has been denied. Denial Reason: Required Step Therapy (Must have tried, failed or have a contraindication to : Xeomin & Dysport) Denial Follow Up: Appeal Required Additional Notes: Thank you, Nayana Gifford Medication Activities Director [facility] [phone] opt 3 * Nayana Gifford - 10/25/2024 9:01 AM EDT Images from the original note were not included. SPECIALTY PHARMACY - Prior Auth Submitted- MEDICAL BENEFIT Medication and dosing: Botox J0585 400 units IM Q3M x 1 year Insurance: [facility] Medicaid [id number] Provider: Cynthia Bloom MD Dept: PM&R DX: G82.50 (ICD-10-CM) - Tetraparesis (HCC); M62.838 (ICD-10-CM) - Muscle spasticity Previous Therapy: -- Baclofen 03/22/2024 - current -- Gabapentin 03/22/2024 - current -- OT/HEP 08/20/2024 - current PA submitted on date: 10/25/2024 PORTAL SUBMISSION: SITE: [facility] REF#: N/A FAX #: Pharmacy will addend this encounter with response from plan. Thank you, Nayana Gifford Medication Activities Director [facility] [phone] opt 3 * Nayana Gifford - 10/25/2024 8:58 AM EDT Images from the original note were not included. SPECIALTY PHARMACY - Prior Auth Denied- PHARMACY BENEFIT Medication(s): Botox J0585 400 units IM Q3M x 1 year Insurance Payor: John The pharmacy received notice that a prior authorization has been denied. Denial Reason: Required Step Therapy (Must have tried, failed or have a contraindication to 2 preferred: Cyclobenzaprine, Dantrolene and Tizanidine) Denial Follow Up: Appeal Required Additional Notes: Thank you, Nayana Gifford Medication Activities Director [facility] [phone] opt 3 * Nayana Gifford - 10/22/2024 10:23 AM EDT SPECIALTY PHARMACY - Prior Auth Submitted- PHARMACY BENEFIT Medication and dosing: Botox J0585 400 units IM Q3M x 1 year Insurance: [employer] [phone] Provider: Cynthia Bloom MD Dept: PM&R DX: G82.50 (ICD-10-CM) - Tetraparesis (HCC); M62.838 (ICD-10-CM) - Muscle spasticity Previous Therapy: -- Baclofen 03/22/2024 - current -- Gabapentin 03/22/2024 - current PA submitted on date: 10/22/2024 [facility] WQ- LATENT: [place]- [id number] Pharmacy will addend this encounter with response from plan. Thank you, Nayana Gifford Medication Activities Director [facility] [phone] opt 3 * Cindy Pastor, EloyD - 10/19/2024 9:03 AM EDT Specialty Pharmacy Onboarding Note: An order has been received by [facility]. The specialty medication has been reviewed for appropriate use, dose, route, frequency and duration. Appropriate actions will follow, which may include a prior authorization, patient assistance, and/or sending to the appropriate filling pharmacy. Updates will be made within [employer]. Appt: 10/27- NEW INS Referral: [id number] Provider: Cynthia Bloom MD Medication: Botox 400u q 3 mo Diagnosis: G82.50 (ICD-10-CM) - Tetraparesis (HCC) M62.838 (ICD-10-CM) - Muscle spasticity Benefit: pharmacy Cindy Pastor PharmD documented in this [id number] History of Present illness Narrative* Nayana Gifford - 11/02/2024 11:18 AM EDT SPECIALTY PHARMACY - Prior Auth Submitted- MEDICAL BENEFIT Medication and dosing: Dysport J0586 1500 units IM Q3M x 1 year Insurance: [employer] [place] Medicaid [id number] Provider: Cynthia Bloom MD Dept: PM&R DX: G82.50 (ICD-10-CM) - Tetraparesis (HCC); M62.838 (ICD-10-CM) - Muscle spasticity Previous Therapy: -- Baclofen 03/22/2024 - current -- Gabapentin 03/22/2024 - current -- OT/HEP 08/20/2024 - current PA submitted on date: 11/02/2024 FAX #: (URGENT) [email or web address] Pharmacy will addend this encounter with response from plan. Thank you, Nayana Gifford Medication Activities Director [facility] [phone] opt 3 * Cindy Pastor PharmD - 10/27/2024 10:41 AM EDT Images from the original note were not included. Specialty Pharmacy Onboarding Note: An order has been received by [facility]. The specialty medication has been reviewed for appropriate use, dose, route, frequency and duration. Appropriate actions will follow, which may include a prior authorization, patient assistance, and/or sending to the appropriate filling pharmacy. Updates will be made within [employer] [facility] Program. Appointment Date: pending- due [facility]- 10/27 appt cancelled due to denial of Botox Referral #: [id number] Provider: Neelima Villarreal MD Medication:Dysport 1500u Im q 3mo Diagnosis: G82.50 (ICD-10-CM) - Tetraparesis (HCC) M62.838 (ICD-10-CM) - Muscle spasticity Please submit to medical Additional Information:preferred neurotoxin by ins Cindy Pastor PharmD * Nayana Gifford - 10/25/2024 2:47 PM EDT Images from the original note were not included. SPECIALTY PHARMACY - Prior Auth Denied- MEDICAL BENEFIT Medication(s): Botox J0585 400 units IM Q3M x 1 year Insurance Payor: [facility] The pharmacy received notice that a prior authorization has been denied. Denial Reason: Required Step Therapy (Must have tried, failed or have a contraindication to : Xeomin & Dysport) Denial Follow Up: Appeal Required Additional Notes: Thank you, Nayana Gifford Medication Activities Director [facility] [phone] opt 3 * Nayana Gifford - 10/25/2024 9:01 AM EDT Images from the original note were not included. SPECIALTY PHARMACY - Prior Auth Submitted- MEDICAL BENEFIT Medication and dosing: Botox J0585 400 units IM Q3M x 1 year Insurance: [facility] Medicaid [id number] Provider: Cynthia Bloom MD Dept: PM&R DX: G82.50 (ICD-10-CM) - Tetraparesis (HCC); M62.838 (ICD-10-CM) - Muscle spasticity Previous Therapy: -- Baclofen 03/22/2024 - current -- Gabapentin 03/22/2024 - current -- OT/HEP 08/20/2024 - current PA submitted on date: 10/25/2024 PORTAL SUBMISSION: SITE: [facility] REF#: N/A FAX #: Pharmacy will addend this encounter with response from plan. Thank you, Nayana Gifford Medication Activities Director [facility] [phone] opt 3 * Nayana Gifford - 10/25/2024 8:58 AM EDT Images from the original note were not included. SPECIALTY PHARMACY - Prior Auth Denied- PHARMACY BENEFIT Medication(s): Botox J0585 400 units IM Q3M x 1 year Insurance Payor: [facility] The pharmacy received notice that a prior authorization has been denied. Denial Reason: Required Step Therapy (Must have tried, failed or have a contraindication to 2 preferred: Cyclobenzaprine, Dantrolene and Tizanidine) Denial Follow Up: Appeal Required Additional Notes: Thank you, Nayana Gifford Medication Activities Director [facility] [phone] opt 3 * Nayana Gifford - 10/22/2024 10:23 AM EDT SPECIALTY PHARMACY - Prior Auth Submitted- PHARMACY BENEFIT Medication and dosing: Botox J0585 400 units IM Q3M x 1 year Insurance: [facility] [phone] Provider: Cynthia Bloom MD Dept: PM&R DX: G82.50 (ICD-10-CM) - Tetraparesis (HCC); M62.838 (ICD-10-CM) - Muscle spasticity Previous Therapy: -- Baclofen 03/22/2024 - current -- Gabapentin 03/22/2024 - current PA submitted on date: 10/22/2024 EPIC WQ- LATENT: [place]- [id number] Pharmacy will addend this encounter with response from plan. Thank you, Nayana Gifford Medication Activities Director [facility] [phone] opt 3 * Cindy Pastor PharmD - 10/19/2024 9:03 AM EDT Specialty Pharmacy Onboarding Note: An order has been received by [facility]. The specialty medication has been reviewed for appropriate use, dose, route, frequency and duration. Appropriate actions will follow, which may include a prior authorization, patient assistance, and/or sending to the appropriate filling pharmacy. Updates will be made within [employer]. Appt: 10/27- NEW INS Referral: [id number] Provider: Cynthia Bloom MD Medication: Botox 400u q 3 mo Diagnosis: G82.50 (ICD-10-CM) - Tetraparesis (HCC) M62.838 (ICD-10-CM) - Muscle spasticity Benefit: pharmacy Cindy Pastor PharmD documented in this [id number] Progress note [facility] [address] [place] [id number] Progress Note - Wound Care 10/19/24 1148 MR#: [id number] Acct: [id number] Name: MAIDA POLANCO Rep #:[id number] : 1980 44 From: German Finney DPM PCP: Dr. Markel Bell MD Status:[facility] Location: History of Present Illness Date of Service: 10/19/24 History of Wound: Patient quadriplegic follows up for left plantar fifth MPJ ulceration which started as a pressure ulceration. Patient denies constitutional symptoms pain or any changes since previous visit. Objective Data Objective Data Vital Signs: Vital Signs Temp Pulse Resp BP O2 Del Method 97.4 F L 55 L 16 143/90 H Room Air 10/19/24 11:28 10/19/24 11:28 10/19/24 11:28 10/19/24 11:28 10/19/24 11:28 Oxygen Delivery Method Room Air Weight: 117.934 kg Body Mass Index (BMI) 35.2 Lab / Micro Data Micro: Microbiology 10/05/24 08:47 Ulcer, Decubitus - Left Foot Gram Stain - Final 10/05/24 08:47 Ulcer, Decubitus - Left Foot Wound Culture - Final Staphylococcus caprae 10/05/24 08:47 Ulcer, Decubitus - Left Foot Anaerobic Culture - Final No anaerobic bacteria isolated. Physical Exam Narrative Neurovascular status unchanged. Full-thickness wound noted to plantar lateral fifth MPJ. Wound extends down to the level of the abductor DJB minimi tendon with exposed fifth MPJ joint capsule. There is necrosis noted predebridementpostdebridement wound demonstrated stable granular base without acute signs of infection. However th ewound does probe down to capsule. Musculoskeletal no gross deformity contributing wound formation. Debridement Note Debridement Note Post-Debridement Measurements and Additional Note: Post-Debridement Measurements/Treatment - Nurse 1 - General Ulcer Assessment Start: 10/05/24 08:16 Freq: Status: Active Protocol: .LOWEXT Activity Type Activity Date Activity User E-sign Co-sign Detail Recorded Client Recorded Date Recorded By Document 10/05/24 08:16 KW [id number] 10/05/24 08:21 KW Document 10/12/24 11:07 KW [id number] 10/12/24 11:22 KW Edit Result 10/12/24 11:07 KW (1) [id number] 10/12/24 11:46 JF Document 10/19/24 11:28 BMF [id number] 10/19/24 11:33 BMF (1) *Infection - Person Taught => Patient,Family - Teaching Method => Discussion, => Demonstration - Response to teaching => Return => Demonstration, => Verbalize => Understanding 10/05/24 10/12/24 10/19/24 08:16 11:07 11:28 - Today's Visit Information Type of service Follow-up Visit Follow-up Visit Follow-up Visit (Physician/GRAPHIC EDITOR (Physician/GRAPHIC EDITOR (Physician/GRAPHIC EDITOR ) ) ) Arrival Mode Wheelchair Wheelchair Wheelchair Transfer Assistance None Accompanied by , Patient Identification Verified (Name & Yes Yes Yes ) Patient Requires Transmission-Based No Precautions Height and Weight Body Mass Index (BMI) 35.2 35.2 35.2 BMI Classification Obese Obese Obese Vital Signs Temperature (97.8 F-99.1 F) 97.6 F L 97.2 F L 97.4 F L Temperature Source Temporal Temporal Temporal Pulse Rate (60-100) 56 L 55 L Pulse Location Monitor Monitor Monitor Respiratory Rate (12-18) 16 16 16 Respiratory rate source Monitor Observation Observation Oxygen Delivery Method Room Air Room Air Room Air Blood Pressure (90/60-120/80) 113/63 143/90 H Blood Pressure Mean (mm Hg) 79 107 Source Monitor Monitor Monitor Position Sitting Semi-Fowlers Sitting Blood Pressure Location Left Arm Left Arm History Since Last Visit- (Skip if this is Patient's initial visit) Have you changed medications since your No No No last visit? Any new allergies or adverse reactions No No No Had a fall/change in ADL's that may No No No increase risk of falls Signs or symptoms of abuse and/or No No No neglect since last visit Have you been in the hospital since your No No No last visit? Has dressing in place as prescribed Yes Yes Yes Has compression in place as prescribed Yes Yes N/A Has offloadiing in place as prescribed N/A Yes Yes Experienced any changes in pain level or No No No management Left Footwear Regular Shoe Surgical Shoe Surgical Shoe with pressure with pressure relief insole relief insole Right Footwear Regular Shoe Regular Shoe Regular Shoe Pain Scale: 0-10 Numeric Is Patient Pain Free? Yes Yes Yes Teaching: Wound Center *Infection -Person Taught Patient,Family -Teaching Method Discussion, Demonstration -Response to teaching Return Demonstration, Verbalize Understanding WC - Nurse 1 - General Ulcer Measurement Start: 10/05/24 08:16 Freq: Status: Active Protocol: Activity Type Activity Date Activity User E-sign Co-sign Detail Recorded Client Recorded Date Recorded By Document 10/05/24 08:16 [id number] 10/05/24 08:21 KW Document 10/12/24 11:07 KW [id number] 10/12/24 11:22 KW Document 10/19/24 11:28 [facility] [id number] 10/19/24 11:33 [facility] 10/05/24 10/12/24 10/19/24 08:16 11:07 11:28 Wound Center Nurse 1 #1 lt lat foot -Combined with other wound No -Current Size (cm) - Length 1.3 1.2 1.1 -Current Size (cm) - Width 1.2 1 0.7 -Current Size (cm) - Depth 0.2 0.3 0.4 -Total Square Cm 1.56 1.2 0.77 -Date of Last Picture (Recall this 10/05/24 field) -Epithelialization Small 1-33% -Tunneling No -Undermining/Tunneling No -Circular Undermining No -Exudate Amt Medium Medium -Exudate Type Serosanguineous Serosanguineous -Wound Margin Distinct, Distinct, Outline Outline Attached Attached -Granulation Amt Large (67-100%) Large (67-100%) Large (67-100%) -Granulation Quality Red Red Red -Slough/Fibrin Yes -Necrosis Amt Small (1-33%) Small (1-33%) -Necrotic Tissue Type Eschar Adherent Slough -Texture (Livier-wound Skin Appearance) Assessed Assessed Assessed, Scarring -Moisture (Livier-wound Skin Appearance) Assessed Assessed,Dry/ Assessed Scaly -Color (Livier-wound Skin Appearance) Assessed Assessed Assessed -Temperature (Livier-wound Skin No Abnormality No Abnormality No Abnormality Appearance) (Pt Warm) (Pt Warm) (Pt Warm) -Tenderness on Palpation (Livier-wound No No No Skin Appearance) -Ulcer Cleansing Soap and Water Soap and Water Rinsed/ Irrigated with Saline -Foul Odor after Cleansing No No No -Anesthetic Used 5% Lidocaine 5% Lidocaine Gel Gel WC - Nurse 2 - General Ulcer CM Notes Start: 10/05/24 08:16 Freq: Status: Active Protocol: Activity Type Activity Date Activity User E-sign Co-sign Detail Recorded Client Recorded Date Recorded By Document 10/05/24 08:46 [id number] 10/05/24 08:51 Document 10/12/24 11:40 [id number] 10/12/24 11:44 JF Edit Result 10/12/24 11:40 JF (1) [id number] 10/12/24 11:46 JF Document 10/19/24 11:44 JF [id number] 10/19/24 11:45 JF (1) #1 lt lat foot - Clinical Debridement Subcutaneous => Muscle / Fascia - Tissue Removed Subcutaneous => Muscle - Debridement - Subq, 1st 20sq cm Yes => - Debridement - Muscle / Fascia, 1st => Yes 20sq cm 10/05/24 10/12/24 10/19/24 08:46 11:40 11:44 Wound Center Nurse 2 #1 lt lat foot -Time 08:46 11:43 11:44 -Correct Patient Yes Yes Yes -Correct Side, Site, Position Yes Yes Yes -Correct Procedure Yes Yes Yes -Procedure Performed Yes Yes Yes -Type of Procedure Debridement Debridement Debridement -Clinical Debridement Muscle / Fascia Muscle / Fascia Muscle / Fascia -Tissue Removed Muscle,Fascia, Muscle Muscle Tendon -Post Debridement (cm) - Length 1.2 0.9 1.1 -Post Debridement (cm) - Width 1.0 1.0 0.8 -Post Debridement (cm) - Depth 0.4 0.4 0.3 -Total Square (Post) (cm) 1.20 0.90 0.88 -Area of Debridement (cm) - Length 1.2 0.9 1.1 -Area of Debridement (cm) - Width 1.0 1.0 0.8 -Total Square (Area) (cm) 1.20 0.90 0.88 -Tunneling No No No -Undermining/Tunneling No No No -Circular Undermining No No No -Wound/Ulcer Outcome Not Healed Not Healed Not Healed -Ulcer Cleansing Rinsed/ Rinsed/ Rinsed/ Irrigated with Irrigated with Irrigated with Saline Saline Saline -Foul Odor after Cleansing No No No -Bioengineered Tissue No No No -Bleeding Controlled with Pressure Pressure Pressure -Treatment Response Procedure Procedure Procedure Tolerated Well Tolerated Well Tolerated Well -Offloading Yes Yes Yes -Type of Offloading Surgical Shoe Surgical Shoe Surgical Shoe -Debridement - Muscle / Fascia, 1st Yes Yes Yes 20sq cm Pain Scale: 0-10 Numeric Is Patient Pain Free? Yes Yes Yes WC - Nurse 3 - General Ulcer D/C NN Start: 10/05/24 08:16 Freq: Status: Active Protocol: Activity Type Activity Date Activity User E-sign Co-sign Detail Recorded Client Recorded Date Recorded By Document 10/05/24 09:05 KW [id number] 10/05/24 09:06 KW Document 10/12/24 11:44 JF [id number] 10/12/24 11:45 DARIN 10/05/24 10/12/24 09:05 11:44 Wound Care Center Nurse 3 #1 lt lat foot -Ulcer Cleansing Rinsed/ Irrigated with Saline -Foul Odor after Cleansing No -Primary Dressing Applied Promogran Promogran Claribel Matter, Claribel Matter, Silicone Border Silicone Border Foam 4x4 Foam 6x6 -Promogran Claribel Matter 1 1 -Silicone Border Foam 4x4 1 -Silicone Border Foam 6x6 1 Pain Scale: 0-10 Numeric Is Patient Pain Free? Yes Yes WC - Visit Discharge Discharge Condition Stable Stable Ambulatory Status Wheelchair Wheelchair Transportation Private Auto Private Auto Accompanied by Medication Reconcilliation completed & No Yes provided to patient/care provider Clinical Summary of Care Provided Yes Yes Notes: started darco shoe today Assessment/Plan Assessment/Plan (1) Non-pressure chronic ulcer of other part of left foot with fat layer exposed: CODE(S): L97.522 - Non-pressure chronic ulcer of other part of left foot with fat layer exposed PLAN: Exam performed. Radiographs reviewed. Reviewed radiologist findings concerning for fifth digit proximal phalanx fracture. Upon personal review I did not identify this to be aproblem. Additionally, the wound defect correlates with the soft tissue emphysema that was read. 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 Wound cultures were reviewed and demonstrated normal skin wally. Patient will complete course of antibiotics. Left fifth MPJ wound debrided excisionally down to including level of muscle/tendon using combination of 15 blade pickups bone rongeurs and 5 mm dermal curette. Portion of the abductor digit he minimi tendon was excised fromthe wound. Stable bleeding granular base noted postdebridement. No anesthesi a due to neuropathy. Patient tolerated procedure well. Hemostasis obtained with light compression. Pre and postdebridement measurements document nursing notes. Dispensed surgical shoe. Discussed keeping pressure off left foot. Discussed adequate protein nutrition for wound healing. Patient follow-up in 1 week. (2) Other hereditary and idiopathic neuropathies: CODE(S): G60.8 - Other hereditary and idiopathic neuropathies (3) Cellulitis of left lower limb: CODE(S): L03.116 - Cellulitis of left lower limb 10/19/24 1148 Cosigner Signature (if applicable): CC: ~ Signed [facility]06-25-2025 Miscellaneous Notes* Addendum Note - Cindy Pastor PharmD - 10/27/2024 10:47 AM EDTAddended by: CINDY PASTOR on: 10/27/2024 10:47 AM Modules accepted: Orders documented in this [id number] Miscellaneous Notes* Addendum Note - Cindy Pastor PharmD - 10/27/2024 10:47 AM EDTAddended by: CINDY PASTOR P on: 10/27/2024 10:47 AM Modules accepted: Orders documented in this [id number] Miscellaneous Notes* Addendum Note - Cindy Pastor PharmD - 10/27/2024 10:47 AM EDTAddended by: CINDY PASTOR P on: 10/27/2024 10:47 AM Modules accepted: Orders documented in this [id number] Note* Addendum Note - Cindy Pastor PharmD - 10/27/2024 10:47 AM EDTAddended by: CINDY PASTOR P on: 10/27/2024 10:47 AM Modules accepted: Orders [id number] Note* Addendum Note - Cindy Pastor PharmD - 10/27/2024 10:47 AM EDTAddended by: CINDY PASTOR P on: 10/27/2024 10:47 AM Modules accepted: Orders [id number] Note* Addendum Note - Cindy Pastor PharmD - 10/27/2024 10:47 AM EDTAddended by: CINDY PASTOR P on: 10/27/2024 10:47 AM Modules accepted: Orders [id number] Note* Addendum Note - Cindy Pastor PharmD - 10/27/2024 10:47 AM EDTAddended by: CINDY PASTOR P on: 10/27/2024 10:47 AM Modules accepted: Orders [id number] Note* Addendum Note - Cindy Pastor PharmD - 10/27/2024 10:47 AM EDTAddended by: CINDY PASTOR P on: 10/27/2024 10:47 AM Modules accepted: Orders [id number] History of Present illness Narrative* Cindy Pastor PharmD - 10/27/2024 10:41 AM EDT Images from the original note were not included. Specialty Pharmacy Onboarding Note: An order has been received by [facility]. The specialty medication has been reviewed for appropriate use, dose, route, frequency and duration. Appropriate actions will follow, which may include a prior authorization, patient assistance, and/or sending to the appropriate filling pharmacy. Updates will be made within [facility] [place] [facility]. Appointment Date: pending- due [facility]- 10/27 appt cancelled due to denial of Botox Referral #: [id number] Provider: Neelima Villarreal MD Medication:Dysport 1500u Im q 3mo Diagnosis: G82.50 (ICD-10-CM) - Tetraparesis (HCC) M62.838 (ICD-10-CM) - Muscle spasticity Please submit to medical Additional Information:preferred neurotoxin by ins Cindy Pastor PharmD * Nayana Gifford - 10/25/2024 2:47 PM EDT Images from the original note were not included. SPECIALTY PHARMACY - Prior Auth Denied- MEDICAL BENEFIT Medication(s): Botox J0585 400 units IM Q3M x 1 year [facility] [employer] [facility] The pharmacy received notice that a prior authorization has been denied. Denial Reason: Required Step Therapy (Must have tried, failed or have a contraindication to : Xeomin & Dysport) Denial Follow Up: Appeal Required Additional Notes: Thank you, Nayana Gifford Medication Activities Director [employer] [facility] [phone] opt 3 * Nayana Gifford - 10/25/2024 9:01 AM EDT Images from the original note were not included. SPECIALTY PHARMACY - Prior Auth Submitted- MEDICAL BENEFIT Medication and dosing: Botox J0585 400 units IM Q3M x 1 year Insurance: [employer] [place] Medicaid [id number] Provider: Cynthia Bloom MD Dept: PM&R DX: G82.50 (ICD-10-CM) - Tetraparesis (HCC); M62.838 (ICD-10-CM) - Muscle spasticity Previous Therapy: -- Baclofen 03/22/2024 - current -- Gabapentin 03/22/2024 - current -- OT/HEP 08/20/2024 - current PA submitted on date: 10/25/2024 [facility]A FAX #: Pharmacy will addend this encounter with response from plan. Thank you, Nayana Gifford Medication Activities Director [employer] [facility] Department [phone] opt 3 * Nayana Gifford - 10/25/2024 8:58 AM EDT Images from the original note were not included. SPECIALTY PHARMACY - Prior Auth Denied- PHARMACY BENEFIT Medication(s): Botox J0585 400 units IM Q3M x 1 year Insurance Payor: John The pharmacy received notice that a prior authorization has been denied. Denial Reason: Required Step Therapy (Must have tried, failed or have a contraindication to 2 preferred: Cyclobenzaprine, Dantrolene and Tizanidine) Denial Follow Up: Appeal Required Additional Notes: Thank you, Nayana Gifford Medication Activities Director [employer] [facility] [phone] opt 3 * Nayana Gifford - 10/22/2024 10:23 AM EDT SPECIALTY PHARMACY - Prior Auth Submitted- PHARMACY BENEFIT Medication and dosing: Botox J0585 400 units IM Q3M x 1 year Insurance: [employer] [phone] Provider: Cynthia Bloom MD Dept: PM&R DX: G82.50 (ICD-10-CM) - Tetraparesis (HCC); M62.838 (ICD-10-CM) - Muscle spasticity Previous Therapy: -- Baclofen 03/22/2024 - current -- Gabapentin 03/22/2024 - current PA submitted on date: 10/22/2024 [facility] WQ- LATENT: [place]- [id number] Pharmacy will addend this encounter with response from plan. Thank you, Nayana Gifford Medication Activities Director [employer] Specialty Pharmacy Department [phone] opt 3 * Cindy Pastor PharmD - 10/19/2024 9:03 AM EDT Specialty Pharmacy Onboarding Note: An order has been received by [facility]. The specialty medication has been reviewed for appropriate use, dose, route, frequency and duration. Appropriate actions will follow, which may include a prior authorization, patient assistance, and/or sending to the appropriate filling pharmacy. Updates will be made within [facility]. Appt: 10/27- [facility] Referral: [id number] Provider: Cynthia Bloom MD Medication: Botox 400u q 3 mo Diagnosis: G82.50 (ICD-10-CM) - Tetraparesis (HCC) M62.838 (ICD-10-CM) - Muscle spasticity Benefit: pharmacy Cindy Psator PharmD documented in this [id number] Progress note Author German Finney [facility] Note Date/Time October 26, 2024 8:56 am [facility] [address] [place] [address] Progress Note - Wound Care 10/26/24 0854 MR#: [id number] Acct: [id number] Name: MAIDA POLANCO Rep #:[id number] : 1980 44 From: German Finney DPM PCP: Dr. Markel Bell MD Status:RE G RCR Location: History of Present Illness Date of Service: 10/26/24 History of Wound: Patient quadriplegic follows up for left plantar fifth MPJ ulceration which started as a pressure ulceration. Patient denies constitutional symptoms pain or any changes since previous visit. Objective Data Objective Data Vital Signs: Vital Signs Temp Pulse Resp BP O2 Del Method 97.7 F L 63 16 131/78 H Room Air 10/26/24 08:37 10/26/24 08:37 10/26/24 08:37 10/26/24 08:37 10/26/24 08:37 Oxygen Delivery Method Room Air Weight: 117.934 kg Body Mass Index (BMI) 35.2 Lab / Micro Data Micro: Microbiology 10/05/24 08:47 Ulcer, Decubitus - Left Foot Gram Stain - Final 10/05/24 08:47 Ulcer, Decubitus - Left Foot Wound Culture - Final Staphylococcus caprae 10/05/24 08:47 Ulcer, Decubitus - Left Foot Anaerobic Culture - Final No anaerobic bacteria isolated. Physical Exam Narrative Neurovascular status unchanged. Full-thickness wound noted to plantar lateral fifth MPJ. Wound extends down to the level of the abductor Digiti minimi tendon with exposed fifth MPJ joint capsule. There is necrosis noted predebridement postdebridement wound demonstrated stable granular base without acute signs of infection. However thewound does probe down to capsule. Musculoskeletal no gross deformity contributing wound formation. Debridement Note Debridement Note Post-Debridement Measurements and Additional Note: Post-Debridement Measurements/Treatment - Nurse 1 - General Ulcer Assessment Start: 10/05/24 08:16 Freq: Status: Active Protocol: .LOWEXT Activity Type Activity Date Activity User E-sign Co-sign Detail Recorded Client Recorded Date Recorded By Document 10/05/24 08:16 KW [id number] 10/05/24 08:21 KW Document 10/12/24 11:07 KW [id number] 10/12/24 11:22 KW Edit Result 10/12/24 11:07 KW (1) [id number] 10/12/24 11:46 JF Document 10/19/24 11:28 BMF [id number] 10/19/24 11:33 BMF Document 10/26/24 08:37 BMF [id number] 10/26/24 08:41 BMF (1) *Infection - Person Taught => Patient,Family - Teaching Method => Discussion, => Demonstration - Response to teaching => Return => Demonstration, => Verbalize => Understanding 10/05/24 10/12/24 10/19/24 08:16 11:07 11:28 WC - Today's Visit Information Type of service Follow-up Visit Follow-up Visit Follow-up Visit (Physician/GRAPHIC EDITOR (Physician/GRAPHIC EDITOR (Physician/GRAPHIC EDITOR ) ) ) Arrival Mode Wheelchair Wheelchair Wheelchair Transfer Assistance None Transfer Assist (Other) Accompanied by , Patient Identification Verified (Name & Yes Yes Yes ) Patient Requires Transmission-Based No Precautions Height and Weight Body Mass Index (BMI) 35.2 35.2 35.2 BMI Classification Obese Obese Obese Vital Signs Temperature (97.8 F-99.1 F) 97.6 F L 97.2 F L 97.4 F L Temperature Source Temporal Temporal Temporal Pulse Rate (60-100) 56 L 55 L Pulse Location Monitor Monitor Monitor Respiratory Rate (12-18) 16 16 16 Respiratory rate source Monitor Observation Observation Oxygen Delivery Method Room Air Room Air Room Air Blood Pressure (90/60-120/80) 113/63 143/90 H Blood Pressure Mean (mm Hg) 79 107 Source Monitor Monitor Monitor Position Sitting Semi-Fowlers Sitting Blood Pressure Location Left Arm Left Arm History Since Last Visit- (Skip if this is Patient's initial visit) Have you changed medications since your No No No last visit? Any new allergies or adverse reactions No No No Had a fall/change in ADL's that may No No No increase risk of falls Signs or symptoms of abuse and/or No No No neglect since last visit Have you been in the hospital since your No No No last visit? Has dressing in place as prescribed Yes Yes Yes Has compression in place as prescribed Yes Yes N/A Has offloadiing in place as prescribed N/A Yes Yes Experienced any changes in pain level or No No No management Left Footwear Regular Shoe Surgical Shoe Surgical Shoe with pressure with pressure relief insole relief insole Right Footwear Regular Shoe Regular Shoe Regular Shoe Pain Scale: 0-10 Numeric Is Patient Pain Free? Yes Yes Yes Teaching: Wound Center *Infection -Person Taught Patient,Family -Teaching Method Discussion, Demonstration -Response to teaching Return Demonstration, Verbalize Understanding 10/26/24 08:37 WC - Today's Visit Information Type of service Follow-up Visit (Physician/GRAPHIC EDITOR ) Arrival Mode Wheelchair Transfer Assistance None Transfer Assist (Other) Accompanied by Patient Identification Verified (Name & Yes ) Patient Requires Transmission-Based No Precautions Height and Weight Body Mass Index (BMI) 35.2 BMI Classification Obese Vital Signs Temperature (97.8 F-99.1 F) 97.7 F L Temperature Source Temporal Pulse Rate (60-100) 63 Pulse Location Monitor Respiratory Rate (12-18) 16 Respiratory rate source Observation Oxygen Delivery Method Room Air Blood Pressure (90/60-120/80) 131/78 H Blood Pressure Mean (mm Hg) 95 Source Monitor Position Sitting Blood Pressure Location Right Arm History Since Last Visit- (Skip if this is Patient's initial visit) Have you changed medications since your No last visit? Any new allergies or adverse reactions No Had a fall/change in ADL's that may No increase risk of falls Signs or symptoms of abuse and/or No neglect since last visit Have you been in the hospital since your No last visit? Has dressing in place as prescribed Yes Has compression in place as prescribed N/A Has offloadiing in place as prescribed N/A Experienced any changes in pain level or No management Left Footwear Right Footwear Pain Scale: 0-10 Numeric Is Patient Pain Free? Yes Teaching: Wound Center *Infection -Person Taught -Teaching Method -Response to teaching - Nurse 1 - General Ulcer Measurement Start: 10/05/24 08:16 Freq: Status: Active Protocol: Activity Type Activity Date Activity User E-sign Co-sign Detail Recorded Client Recorded Date Recorded By Document 10/05/24 08:16 KW [id number] 10/05/24 08:21 KW Document 10/12/24 11:07 KW [id number] 10/12/24 11:22 KW Document 10/19/24 11:28 BMF [id number] 10/19/24 11:33 BM Document 10/26/24 08:37 [facility] [id number] 10/26/24 08:41 [facility] 10/05/24 10/12/24 10/19/24 08:16 11:07 11:28 Wound Center Nurse 1 #1 lt lat foot -Combined with other wound No -Current Size (cm) - Length 1.3 1.2 1.1 -Current Size (cm) - Width 1.2 1 0.7 -Current Size (cm) - Depth 0.2 0.3 0.4 -Total Square Cm 1.56 1.2 0.77 -Date of Last Picture (Recall this 10/05/24 field) -Photo Taken -Epithelialization Small 1-33% -Tunneling No -Undermining/Tunneling No -Circular Undermining No -Exudate Amt Medium Medium -Exudate Type Serosanguineous Serosanguineous -Wound Margin Distinct, Distinct, Outline Outline Attached Attached -Granulation Amt Large (67-100%) Large (67-100%) Large (67-100%) -Granulation Quality Red Red Red -Slough/Fibrin Yes -Necrosis Amt Small (1-33%) Small (1-33%) -Necrotic Tissue Type Eschar Adherent Slough -Texture (Livier-wound Skin Appearance) Assessed Assessed Assessed, Scarring -Moisture (Livier-wound Skin Appearance) Assessed Assessed,Dry/ Assessed Scaly -Color (Livier-wound Skin Appearance) Assessed Assessed Assessed -Temperature (Livier-wound Skin No Abnormality No Abnormality No Abnormality Appearance) (Pt Warm) (Pt Warm) (Pt Warm) -Tenderness on Palpation (Livier-wound No No No Skin Appearance) -Ulcer Cleansing Soap and Water Soap and Water Rinsed/ Irrigated with Saline -Foul Odor after Cleansing No No No -Anesthetic Used 5% Lidocaine 5% Lidocaine Gel Gel 10/26/24 08:37 Wound Center Nurse 1 #1 lt lat foot -Combined with other wound No -Current Size (cm) - Length 1 -Current Size (cm) - Width 0.8 -Current Size (cm) - Depth 0.4 -Total Square Cm 0.8 -Date of Last Picture (Recall this 10/26/24 field) -Photo Taken Yes -Epithelialization Small 1-33% -Tunneling No -Undermining/Tunneling No -Circular Undermining No -Exudate Amt Medium -Exudate Type Serosanguineous -Wound Margin Distinct, Outline Attached -Granulation Amt Large (67-100%) -Granulation Quality Red -Slough/Fibrin Yes -Necrosis Amt Small (1-33%) -Necrotic Tissue Type Adherent Slough -Texture (Livier-wound Skin Appearance) Assessed, Scarring -Moisture (Livier-wound Skin Appearance) Assessed -Color (Livier-wound Skin Appearance) Assessed -Temperature (Livier-wound Skin No Abnormality Appearance) (Pt Warm) -Tenderness on Palpation (Livier-wound No Skin Appearance) -Ulcer Cleansing Soap and Water -Foul Odor after Cleansing No -Anesthetic Used 5% Lidocaine Gel WC - Nurse 2 - General Ulcer CM Notes Start: 10/05/24 08:16 Freq: Status: Active Protocol: Activity Type Activity Date Activity User E-sign Co-sign Detail Recorded Client Recorded Date Recorded By Document 10/05/24 08:46 JF [id number] 10/05/24 08:51 JF Document 10/12/24 11:40 JF [id number] 10/12/24 11:44 JF Edit Result 10/12/24 11:40 JF (1) [id number] 10/12/24 11:46 JF Document 10/19/24 11:44 JF [id number] 10/19/24 11:45 JF Document 10/26/24 08:49 DS [id number] 10/26/24 08:50 DS (1) #1 lt lat foot - Clinical Debridement Subcutaneous => Muscle / Fascia - Tissue Removed Subcutaneous => Muscle - Debridement - Subq, 1st 20sq cm Yes => - Debridement - Muscle / Fascia, 1st => Yes 20sq cm 10/05/24 10/12/24 10/19/24 08:46 11:40 11:44 Wound Center Nurse 2 #1 lt lat foot -Time 08:46 11:43 11:44 -Correct Patient Yes Yes Yes -Correct Side, Site, Position Yes Yes Yes -Correct Procedure Yes Yes Yes -Procedure Performed Yes Yes Yes -Type of Procedure Debridement Debridement Debridement -Clinical Debridement Muscle / Fascia Muscle / Fascia Muscle / Fascia -Tissue Removed Muscle,Fascia, Muscle Muscle Tendon -Post Debridement (cm) - Length 1.2 0.9 1.1 -Post Debridement (cm) - Width 1.0 1.0 0.8 -Post Debridement (cm) - Depth 0.4 0.4 0.3 -Total Square (Post) (cm) 1.20 0.90 0.88 -Area of Debridement (cm) - Length 1.2 0.9 1.1 -Area of Debridement (cm) - Width 1.0 1.0 0.8 -Total Square (Area) (cm) 1.20 0.90 0.88 -Tunneling No No No -Undermining/Tunneling No No No -Circular Undermining No No No -Wound/Ulcer Outcome Not Healed Not Healed Not Healed -Ulcer Cleansing Rinsed/ Rinsed/ Rinsed/ Irrigated with Irrigated with Irrigated with Saline Saline Saline -Foul Odor after Cleansing No No No -Bioengineered Tissue No No No -Bleeding Controlled with Pressure Pressure Pressure -Treatment Response Procedure Procedure Procedure Tolerated Well Tolerated Well Tolerated Well -Offloading Yes Yes Yes -Type of Offloading Surgical Shoe Surgical Shoe Surgical Shoe -Debridement - Muscle / Fascia, 1st Yes Yes Yes 20sq cm Pain Scale: 0-10 Numeric Is Patient Pain Free? Yes Yes Yes 10/26/24 08:49 Wound Center Nurse 2 #1 lt lat foot -Time 08:49 -Correct Patient Yes -Correct Side, Site, Position Yes -Correct Procedure Yes -Procedure Performed Yes -Type of Procedure Debridement -Clinical Debridement Muscle / Fascia -Tissue Removed Muscle -Post Debridement (cm) - Length 1.2 -Post Debridement (cm) - Width 0.9 -Post Debridement (cm) - Depth 0.3 -Total Square (Post) (cm) 1.08 -Area of Debridement (cm) - Length 1.2 -Area of Debridement (cm) - Width 0.9 -Total Square (Area) (cm) 1.08 -Tunneling No -Undermining/Tunneling No -Circular Undermining No -Wound/Ulcer Outcome Not Healed -Ulcer Cleansing Rinsed/ Irrigated with Saline -Foul Odor after Cleansing No -Bioengineered Tissue No -Bleeding Controlled with Pressure -Treatment Response Procedure Tolerated Well -Offloading -Type of Offloading -Debridement - Muscle / Fascia, 1st Yes 20sq cm Pain Scale: 0-10 Numeric Is Patient Pain Free? Yes WC - Nurse 3 - General Ulcer D/C NN Start: 10/05/24 08:16 Freq: Status: Active Protocol: Activity Type Activity Date Activity User E-sign Co-sign Detail Recorded Client Recorded Date Recorded By Document 10/05/24 09:05 KW [id number] 10/05/24 09:06 KW Document 10/12/24 11:44 JF [id number] 10/12/24 11:45 JF Document 10/19/24 11:53 DS [id number] 10/19/24 11:58 DS 10/05/24 10/12/24 10/19/24 09:05 11:44 11:53 Wound Care Center Nurse 3 #1 lt lat foot -Ulcer Cleansing Rinsed/ Irrigated with Saline -Foul Odor after Cleansing No -Primary Dressing Applied Promogran Promogran Promogran Claribel Matter, Claribel Matter, Claribel Matter, Silicone Border Silicone Border Silicone Border Foam 4x4 Foam 6x6 Foam 4x4 -Promogran Claribel Matter 1 1 1 -Silicone Border Foam 4x4 1 1 -Silicone Border Foam 6x6 1 Pain Scale: 0-10 Numeric Is Patient Pain Free? Yes Yes Yes WC - Visit Discharge Discharge Condition Stable Stable Stable Ambulatory Status Wheelchair Wheelchair Wheelchair Transportation Private Auto Private Auto Accompanied by Medication Reconcilliation completed & No Yes provided to patient/care provider Clinical Summary of Care Provided Yes Yes Notes: started darco shoe today Assessment/Plan Assessment/Plan (1) Non-pressure chronic ulcer of other part of left foot with fat layer exposed: CODE(S): L97.522 - Non-pressure chronic ulcer of other part of left foot with fat layer exposed PLAN: Exam performed. Radiographs reviewed. Reviewed radiologist findings concerning for fifth digit proximal phalanx fracture. Upon personal review I did not identify this to be aproblem. Additionally, the wound defect correlates with the soft tissue emphysema that was read. 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 Wound cultures were reviewed and demonstrated normal skin wally. Patient will complete course of antibiotics. Left fifth MPJ wound debrided excisionally down to including level of muscle/tendon using combination of 15 blade pickups bone rongeurs and 5 mm dermal curette. Portion of the abductor digit he minimi tendon was excised fromthe wound. Stable bleeding granular base noted postdebridement. No anesthesia due to neuropathy. Patient tolerated procedure well. Hemostasis obtained with light compression. Pre and postdebridement measurements document nursing notes. using open toed shoes to prevent pressure, using compression Discussed keeping pressure off left foot. Discussed adequate protein nutrition for wound healing - recommended tommy supplementation patient awaiting epifix graft approval. Patient follow-up in 1 week. (2) Other hereditary and idiopathic neuropathies: CODE(S): G60.8 - Other hereditary and idiopathic neuropathies (3) Cellulitis of left lower limb: CODE(S): L03.116 - Cellulitis of left lower limb 10/26/24 0856 <Electronically signed by German Finney DPM> Cosigner Signature (if applicable): CC: ~ Signed [facility] Work Phone: 1(769) 839-790106-24-2025 Evaluation note* Diagnosis Onset Date Resolution Status Admit Date Cellulitis of left lower limb acute October 26, 2024 8:30am Other hereditary and idiopathic neuropathies acute October 8:30am Non-pressure chronic ulcer o f other part of left foot with fat layer exposed chronic October 26 8:30am Cellulitis of left lower limb acute December 01, 2024 1:15pm Other hereditary and idiopathic neuropathies acute November 1:15pm 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 December 01, 2024 1:15pm Other hereditary and idiopathic neuropathies acute December 042024 9:00am Non-pressure chronic ulcer o f other part of left foot with fat layer exposed chronic December 29 9:00am 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 December 29 9:00am 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 chronic December 29, 2024 9:00am Other hereditary and idiopathic neuropathies acute 2024 9:45am 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 chronic January 9:45am Other hereditary and idiopathic neuropathies acute February 02, 2025 11:25am 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 chronic February 02, 2025 11:25am [facility] Work Phone: 1(997) 760-508006-24-2025 Progress note [facility] [address] [place] [address] Progress Note - Wound Care 10/26/24 0854 MR#: [id number] Acct: [id number] Name: MAIDA POLANCO Rep #:[id number] : 1980 44 From: German Finney DPM PCP: Dr. Markel Bell MD Status:RE G RCR Location: History of Present Illness Date of Service: 10/26/24 History of Wound: Patient quadriplegic follows up for left plantar fifth MPJ ulceration which started as a pressure ulceration. Patient denies constitutional symptoms pain or any changes since previous visit. Objective Data Objective Data Vital Signs: Vital Signs Temp Pulse Resp BP O2 Del Method 97.7 F L 63 16 131/78 H Room Air 10/26/24 08:37 10/26/24 08:37 10/26/24 08:37 10/26/24 08:37 10/26/24 08:37 Oxygen Delivery Method Room Air Weight: 117.934 kg Body Mass Index (BMI) 35.2 Lab / Micro Data Micro: Microbiology 10/05/24 08:47 Ulcer, Decubitus - Left Foot Gram Stain - Final 10/05/24 08:47 Ulcer, Decubitus - Left Foot Wound Culture - Final Staphylococcus caprae 10/05/24 08:47 Ulcer, Decubitus - Left Foot Anaerobic Culture - Final No anaerobic bacteria isolated. Physical Exam Narrative Neurovascular status unchanged. Full-thickness wound noted to plantar lateral fifth MPJ. Wound extends down to the level of the abductor Digiti minimi tendon with exposed fifth MPJ joint capsule. There is necrosis noted predebridement postdebridement wound demonstrated stable granular base without acute signs of infection. However thewound does probe down to capsule. Musculoskeletal no gross deformity contributing wound formation. Debridement Note Debridement Note Post-Debridement Measurements and Additional Note: Post-Debridement Measurements/Treatment - Nurse 1 - General Ulcer Assessment Start: 10/05/24 08:16 Freq: Status: Active Protocol: .LOWEXT Activity Type Activity Date Activity User E-sign Co-sign Detail Recorded Client Recorded Date Recorded By Document 10/05/24 08:16 KW [id number] 10/05/24 08:21 KW Document 10/12/24 11:07 KW [id number] 10/12/24 11:22 KW Edit Result 10/12/24 11:07 KW (1) [id number] 10/12/24 11:46 JF Document 10/19/24 11:28 BMF [id number] 10/19/24 11:33 BMF Document 10/26/24 08:37 BMF [id number] 10/26/24 08:41 BMF (1) *Infection - Person Taught => Patient,Family - Teaching Method => Discussion, => Demonstration - Response to teaching => Return => Demonstration, => Verbalize => Understanding 10/05/24 10/12/24 10/19/24 08:16 11:07 11:28 WC - Today's Visit Information Type of service Follow-up Visit Follow-up Visit Follow-up Visit (Physician/GRAPHIC EDITOR (Physician/GRAPHIC EDITOR (Physician/GRAPHIC EDITOR ) ) ) Arrival Mode Wheelchair Wheelchair Wheelchair Transfer Assistance None Transfer Assist (Other) Accompanied by , Patient Identification Verified (Name & Yes Yes Yes ) Patient Requires Transmission-Based No Precautions Height and Weight Body Mass Index (BMI) 35.2 35.2 35.2 BMI Classification Obese Obese Obese Vital Signs Temperature (97.8 F-99.1 F) 97.6 F L 97.2 F L 97.4 F L Temperature Source Temporal Temporal Temporal Pulse Rate (60-100) 56 L 55 L Pulse Location Monitor Monitor Monitor Respiratory Rate (12-18) 16 16 16 Respiratory rate source Monitor Observation Observation Oxygen Delivery Method Room Air Room Air Room Air Blood Pressure (90/60-120/80) 113/63 143/90 H Blood Pressure Mean (mm Hg) 79 107 Source Monitor Monitor Monitor Position Sitting Semi-Fowlers Sitting Blood Pressure Location Left Arm Left Arm History Since Last Visit- (Skip if this is Patient's initial visit) Have you changed medications since your No No No last visit? Any new allergies or adverse reactions No No No Had a fall/change in ADL's that may No No No increase risk of falls Signs or symptoms of abuse and/or No No No neglect since last visit Have you been in the hospital since your No No No last visit? Has dressing in place as prescribed Yes Yes Yes Has compression in place as prescribed Yes Yes N/A Has offloadiing in place as prescribed N/A Yes Yes Experienced any changes in pain level or No No No management Left Footwear Regular Shoe Surgical Shoe Surgical Shoe with pressure with pressure relief insole relief insole Right Footwear Regular Shoe Regular Shoe Regular Shoe Pain Scale: 0-10 Numeric Is Patient Pain Free? Yes Yes Yes Teaching: Wound Center *Infection -Person Taught Patient,Family -Teaching Method Discussion, Demonstration -Response to teaching Return Demonstration, Verbalize Understanding 10/26/24 08:37 - Today's Visit Information Type of service Follow-up Visit (Physician/GRAPHIC EDITOR ) Arrival Mode Wheelchair Transfer Assistance None Transfer Assist (Other) Accompanied by Patient Identification Verified (Name & Yes ) Patient Requires Transmission-Based No Precautions Height and Weight Body Mass Index (BMI) 35.2 BMI Classification Obese Vital Signs Temperature (97.8 F-99.1 F) 97.7 F L Temperature Source Temporal Pulse Rate (60-100) 63 Pulse Location Monitor Respiratory Rate (12-18) 16 Respiratory rate source Observation Oxygen Delivery Method Room Air Blood Pressure (90/60-120/80) 131/78 H Blood Pressure Mean (mm Hg) 95 Source Monitor Position Sitting Blood Pressure Location Right Arm History Since Last Visit- (Skip if this is Patient's initial visit) Have you changed medications since your No last visit? Any new allergies or adverse reactions No Had a fall/change in ADL's that may No increase risk of falls Signs or symptoms of abuse and/or No neglect since last visit Have you been in the hospital since your No last visit? Has dressing in place as prescribed Yes Has compression in place as prescribed N/A Has offloadiing in place as prescribed N/A Experienced any changes in pain level or No management Left Footwear Right Footwear Pain Scale: 0-10 Numeric Is Patient Pain Free? Yes Teaching: Wound Center *Infection -Person Taught -Teaching Method -Response to teaching - Nurse 1 - General Ulcer Measurement Start: 10/05/24 08:16 Freq: Status: Active Protocol: Activity Type Activity Date Activity User E-sign Co-sign Detail Recorded Client Recorded Date Recorded By Document 10/05/24 08:16 KW [id number] 10/05/24 08:21 KW Document 10/12/24 11:07 KW [id number] 10/12/24 11:22 KW Document 10/19/24 11:28 [facility] [id number] 10/19/24 11:33 [facility] Document 10/26/24 08:37 [facility] [id number] 10/26/24 08:41 BM 10/05/24 10/12/24 10/19/24 08:16 11:07 11:28 Wound Center Nurse 1 #1 lt lat foot -Combined with other wound No -Current Size (cm) - Length 1.3 1.2 1.1 -Current Size (cm) - Width 1.2 1 0.7 -Current Size (cm) - Depth 0.2 0.3 0.4 -Total Square Cm 1.56 1.2 0.77 -Date of Last Picture (Recall this 10/05/24 field) -Photo Taken -Epithelialization Small 1-33% -Tunneling No -Undermining/Tunneling No -Circular Undermining No -Exudate Amt Medium Medium -Exudate Type Serosanguineous Serosanguineous -Wound Margin Distinct, Distinct, Outline Outline Attached Attached -Granulation Amt Large (67-100%) Large (67-100%) Large (67-100%) -Granulation Quality Red Red Red -Slough/Fibrin Yes -Necrosis Amt Small (1-33%) Small (1-33%) -Necrotic Tissue Type Eschar Adherent Slough -Texture (Livier-wound Skin Appearance) Assessed Assessed Assessed, Scarring -Moisture (Livier-wound Skin Appearance) Assessed Assessed,Dry/ Assessed Scaly -Color (Livier-wound Skin Appearance) Assessed Assessed Assessed -Temperature (Livier-wound Skin No Abnormality No Abnormality No Abnormality Appearance) (Pt Warm) (Pt Warm) (Pt Warm) -Tenderness on Palpation (Livier-wound No No No Skin Appearance) -Ulcer Cleansing Soap and Water Soap and Water Rinsed/ Irrigated with Saline -Foul Odor after Cleansing No No No -Anesthetic Used 5% Lidocaine 5% Lidocaine Gel Gel 10/26/24 08:37 Wound Center Nurse 1 #1 lt lat foot -Combined with other wound No -Current Size (cm) - Length 1 -Current Size (cm) - Width 0.8 -Current Size (cm) - Depth 0.4 -Total Square Cm 0.8 -Date of Last Picture (Recall this 10/26/24 field) -Photo Taken Yes -Epithelialization Small 1-33% -Tunneling No -Undermining/Tunneling No -Circular Undermining No -Exudate Amt Medium -Exudate Type Serosanguineous -Wound Margin Distinct, Outline Attached -Granulation Amt Large (67-100%) -Granulation Quality Red -Slough/Fibrin Yes -Necrosis Amt Small (1-33%) -Necrotic Tissue Type Adherent Slough -Texture (Livier-wound Skin Appearance) Assessed, Scarring -Moisture (Livier-wound Skin Appearance) Assessed -Color (Livier-wound Skin Appearance) Assessed -Temperature (Livier-wound Skin No Abnormality Appearance) (Pt Warm) -Tenderness on Palpation (Livier-wound No Skin Appearance) -Ulcer Cleansing Soap and Water -Foul Odor after Cleansing No -Anesthetic Used 5% Lidocaine Gel WC - Nurse 2 - General Ulcer CM Notes Start: 10/05/24 08:16 Freq: Status: Active Protocol: Activity Type Activity Date Activity User E-sign Co-sign Detail Recorded Client Recorded Date Recorded By Document 10/05/24 08:46 JF [id number] 10/05/24 08:51 JF Document 10/12/24 11:40 JF [id number] 10/12/24 11:44 JF Edit Result 10/12/24 11:40 JF (1) [id number] 10/12/24 11:46 JF Document 10/19/24 11:44 JF [id number] 10/19/24 11:45 JF Document 10/26/24 08:49 DS [id number] 10/26/24 08:50 DS (1) #1 lt lat foot - Clinical Debridement Subcutaneous => Muscle / Fascia - Tissue Removed Subcutaneous => Muscle - Debridement - Subq, 1st 20sq cm Yes => - Debridement - Muscle / Fascia, 1st => Yes 20sq cm 10/05/24 10/12/24 10/19/24 08:46 11:40 11:44 Wound Center Nurse 2 #1 lt lat foot -Time 08:46 11:43 11:44 -Correct Patient Yes Yes Yes -Correct Side, Site, Position Yes Yes Yes -Correct Procedure Yes Yes Yes -Procedure Performed Yes Yes Yes -Type of Procedure Debridement Debridement Debridement -Clinical Debridement Muscle / Fascia Muscle / Fascia Muscle / Fascia -Tissue Removed Muscle,Fascia, Muscle Muscle Tendon -Post Debridement (cm) - Length 1.2 0.9 1.1 -Post Debridement (cm) - Width 1.0 1.0 0.8 -Post Debridement (cm) - Depth 0.4 0.4 0.3 -Total Square (Post) (cm) 1.20 0.90 0.88 -Area of Debridement (cm) - Length 1.2 0.9 1.1 -Area of Debridement (cm) - Width 1.0 1.0 0.8 -Total Square (Area) (cm) 1.20 0.90 0.88 -Tunneling No No No -Undermining/Tunneling No No No -Circular Undermining No No No -Wound/Ulcer Outcome Not Healed Not Healed Not Healed -Ulcer Cleansing Rinsed/ Rinsed/ Rinsed/ Irrigated with Irrigated with Irrigated with Saline Saline Saline -Foul Odor after Cleansing No No No -Bioengineered Tissue No No No -Bleeding Controlled with Pressure Pressure Pressure -Treatment Response Procedure Procedure Procedure Tolerated Well Tolerated Well Tolerated Well -Offloading Yes Yes Yes -Type of Offloading Surgical Shoe Surgical Shoe Surgical Shoe -Debridement - Muscle / Fascia, 1st Yes Yes Yes 20sq cm Pain Scale: 0-10 Numeric Is Patient Pain Free? Yes Yes Yes 10/26/24 08:49 Wound Center Nurse 2 #1 lt lat foot -Time 08:49 -Correct Patient Yes -Correct Side, Site, Position Yes -Correct Procedure Yes -Procedure Performed Yes -Type of Procedure Debridement -Clinical Debridement Muscle / Fascia -Tissue Removed Muscle -Post Debridement (cm) - Length 1.2 -Post Debridement (cm) - Width 0.9 -Post Debridement (cm) - Depth 0.3 -Total Square (Post) (cm) 1.08 -Area of Debridement (cm) - Length 1.2 -Area of Debridement (cm) - Width 0.9 -Total Square (Area) (cm) 1.08 -Tunneling No -Undermining/Tunneling No -Circular Undermining No -Wound/Ulcer Outcome Not Healed -Ulcer Cleansing Rinsed/ Irrigated with Saline -Foul Odor after Cleansing No -Bioengineered Tissue No -Bleeding Controlled with Pressure -Treatment Response Procedure Tolerated Well -Offloading -Type of Offloading -Debridement - Muscle / Fascia, 1st Yes 20sq cm Pain Scale: 0-10 Numeric Is Patient Pain Free? Yes WC - Nurse 3 - General Ulcer D/C NN Start: 10/05/24 08:16 Freq: Status: Active Protocol: Activity Type Activity Date Activity User E-sign Co-sign Detail Recorded Client Recorded Date Recorded By Document 10/05/24 09:05 KW [id number] 10/05/24 09:06 KW Document 10/12/24 11:44 JF [id number] 10/12/24 11:45 JF Document 10/19/24 11:53 DS [id number] 10/19/24 11:58 DS 10/05/24 10/12/24 10/19/24 09:05 11:44 11:53 Wound Care Center Nurse 3 #1 lt lat foot -Ulcer Cleansing Rinsed/ Irrigated with Saline -Foul Odor after Cleansing No -Primary Dressing Applied Promogran Promogran Promogran Claribel Matter, Claribel Matter, Claribel Matter, Silicone Border Silicone Border Silicone Border Foam 4x4 Foam 6x6 Foam 4x4 -Promogran Claribel Matter 1 1 1 -Silicone Border Foam 4x4 1 1 -Silicone Border Foam 6x6 1 Pain Scale: 0-10 Numeric Is Patient Pain Free? Yes Yes Yes WC - Visit Discharge Discharge Condition Stable Stable Stable Ambulatory Status Wheelchair Wheelchair Wheelchair Transportation Private Auto Private Auto Accompanied by Medication Reconcilliation completed & No Yes provided to patient/care provider Clinical Summary of Care Provided Yes Yes Notes: started darco shoe today Assessment/Plan Assessment/Plan (1) Non-pressure chronic ulcer of other part of left foot with fat layer exposed: CODE(S): L97.522 - Non-pressure chronic ulcer of other part of left foot with fat layer exposed PLAN: Exam performed. Radiographs reviewed. Reviewed radiologist findings concerning for fifth digit proximal phalanx fracture. Upon personal review I did not identify this to be aproblem. Additionally, the wound defect correlates with the soft tissue emphysema that was read. 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 Wound cultures were reviewed and demonstrated normal skin wally. Patient will complete course of antibiotics. Left fifth MPJ wound debrided excisionally down to including level of muscle/tendon using combination of 15 blade pickups bone rongeurs and 5 mm dermal curette. Portion of the abductor digit he minimi tendon was excised fromthe wound. Stable bleeding granular base noted postdebridement. No anesthesi a due to neuropathy. Patient tolerated procedure well. Hemostasis obtained with light compression. Pre and postdebridement measurements document nursing notes. using open toed shoes to prevent pressure, using compression Discussed keeping pressure off left foot. Discussed adequate protein nutrition for wound healing - recommended tommy supplementation patient awaiting epifix graft approval. Patient follow-up in 1 week. (2) Other hereditary and idiopathic neuropathies: CODE(S): G60.8 - Other hereditary and idiopathic neuropathies (3) Cellulitis of left lower limb: CODE(S): L03.116 - Cellulitis of left lower limb 10/26/24 0856 Cosigner Signature (if applicable): CC: ~ Signed [facility]06-23-2025 History of Present illness Narrative* Nayana Gifford - 10/25/2024 2:47 PM EDT Images from the original note were not included. [facility] - Prior Auth Denied- MEDICAL BENEFIT Medication(s): Botox J0585 400 units IM Q3M x 1 year Insurance Payor: [facility] The pharmacy received notice that a prior authorization has been denied. Denial Reason: Required Step Therapy (Must have tried, failed or have a contraindication to : Xeomin & Dysport) Denial Follow Up: Appeal Required Additional Notes: Thank you, Nayana Gifford Medication Activities Director [employer]outing [facility] Department [phone] opt [phone] * Nayana Gifford - 10/25/2024 9:01 AM EDT Images from the original note were not included. [facility] - Prior Auth Submitted- MEDICAL BENEFIT Medication and dosing: Botox J0585 400 units IM Q3M x 1 year Insurance: [facility] Medicaid [id number] Provider: Cynthia Bloom MD Dept: PM&R DX: [id number] (ICD-10-CM) - Tetraparesis (HCC); M62.838 (ICD-10-CM) - Muscle spasticity Previous Therapy: -- Baclofen 03/22/2024 - current -- Gabapentin 03/22/2024 - current -- OT/HEP 08/20/2024 - current PA submitted on date: 10/25/2024 PORTAL SUBMISSION: SITE: [place] REF#: N/A FAX #: Pharmacy will addend this encounter with response from plan. Thank you, Nayana Gifford Medication Activities Director [facility] [phone] opt 3 * Nayana Gifford - 10/25/2024 8:58 AM EDT Images from the original note were not included. SPECIALTY PHARMACY - Prior Auth Denied- PHARMACY BENEFIT Medication(s): Botox J0585 400 units IM Q3M x 1 year Insurance Payor: [facility] The pharmacy received notice that a prior authorization has been denied. Denial Reason: Required Step Therapy (Must have tried, failed or have a contraindication to 2 preferred: Cyclobenzaprine, Dantrolene and Tizanidine) Denial Follow Up: Appeal Required Additional Notes: Thank you, Nayana Gifford Medication Activities Director [facility] [phone] opt 3 * Nayana Gifford - 10/22/2024 10:23 AM EDT SPECIALTY PHARMACY - Prior Auth Submitted- PHARMACY BENEFIT Medication and dosing: Botox J0585 400 units IM Q3M x 1 year [email or web address] [phone] Provider: Cynthia Bloom MD Dept: PM&R DX: G82.50 (ICD-10-CM) - Tetraparesis (HCC); M62.838 (ICD-10-CM) - Muscle spasticity Previous Therapy: -- Baclofen 03/22/2024 - current -- Gabapentin 03/22/2024 - current PA submitted on date: 10/22/2024 EPIC WQ- LATENT: Miller- [id number] Pharmacy will addend this encounter with response from plan. Thank you, Nayana Gifford Medication Activities Director [facility] [phone] opt 3 * Cindy Pastor, PharmD - 10/19/2024 9:03 AM EDT Specialty Pharmacy Onboarding Note: [facility] The specialty medication has been reviewed for appropriate use, dose, route, frequency and duration. Appropriate actions will follow, which may include a prior authorization, patient assistance, and/or sending to the appropriate filling pharmacy. Updates will be made within [employer]. Appt: 10/27- [facility] INS Referral: [id number] Provider: Cynthia Bloom MD Medication: Botox 400u q 3 mo Diagnosis: G82.50 (ICD-10-CM) - Tetraparesis (HCC) M62.838 (ICD-10-CM) - Muscle spasticity Benefit: pharmacy Cindy Pastor PharmD documented in this [id number] History of Present illness Narrative* Nayana Gifford - 10/25/2024 9:01 AM EDT Images from the original note were not included. SPECIALTY PHARMACY - Prior Auth Submitted- MEDICAL BENEFIT Medication and dosing: Botox J0585 400 units IM Q3M x 1 year Insurance: [employer] [place] Medicaid [phone] Provider: Cynthia Bloom MD Dept: PM&R DX: G82.50 (ICD-10-CM) - Tetraparesis (HCC); M62.838 (ICD-10-CM) - Muscle spasticity Previous Therapy: -- Baclofen 03/22/2024 - current -- Gabapentin 03/22/2024 - current -- OT/HEP 08/20/2024 - current PA submitted on date: 10/25/2024 PORTAL SUBMISSION: SITE: [facility] REF#: N/A FAX #: Pharmacy will addend this encounter with response from plan. Thank you, Nayana Gifford Medication Activities Director [facility] [phone] opt 3 * Nayana Gifford - 10/25/2024 8:58 AM EDT Images from the original note were not included. SPECIALTY PHARMACY - Prior Auth Denied- PHARMACY BENEFIT Medication(s): Botox J0585 400 units IM Q3M x 1 year Insurance Payor: [facility] The pharmacy received notice that a prior authorization has been denied. Denial Reason: Required Step Therapy (Must have tried, failed or have a contraindication to 2 preferred: Cyclobenzaprine, Dantrolene and Tizanidine) Denial Follow Up: Appeal Required Additional Notes: Thank you, Nayana Gifford Medication Activities Director [facility] [phone] opt 3 * Nayana Gifford - 10/22/2024 10:23 AM EDT SPECIALTY PHARMACY - Prior Auth Submitted- PHARMACY BENEFIT Medication and dosing: Botox J0585 400 units IM Q3M x 1 year Insurance: [facility] [phone] Provider: Cynthia Bloom MD Dept: PM&R DX: G82.50 (ICD-10-CM) - Tetraparesis (HCC); M62.838 (ICD-10-CM) - Muscle spasticity Previous Therapy: -- Baclofen 03/22/2024 - current -- Gabapentin 03/22/2024 - current PA submitted on date: 10/22/2024 EPIC WQ- LATENT: [facility]- [id number] Pharmacy will addend this encounter with response from plan. Thank you, Nayana Gifford Medication Activities Director [facility] [phone] opt 3 * Cindy Pastor, Walter - 10/19/2024 9:03 AM EDT Specialty Pharmacy Onboarding Note: An order has been received by [facility]. The specialty medication has been reviewed for appropriate use, dose, route, frequency and duration. Appropriate actions will follow, which may include a prior authorization, patient assistance, and/or sending to the appropriate filling pharmacy. Updates will be made within [employer]. Appt: 10/27- NEW INS Referral: [id number] Provider: Cynthia Bloom MD Medication: Botox 400u q 3 mo Diagnosis: G82.50 (ICD-10-CM) - Tetraparesis (HCC) M62.838 (ICD-10-CM) - Muscle spasticity Benefit: pharmacy Cindy Pastor PharmD documented in this [id number] History of Present illness Narrative* Nayana Gifford - 10/22/2024 10:23 AM EDT SPECIALTY PHARMACY - Prior Auth Submitted- PHARMACY BENEFIT Medication and dosing: Botox J0585 400 units IM Q3M x 1 year Insurance: [employer] [phone] Provider: Cynthia Bloom MD Dept: PM&R DX: G82.50 (ICD-10-CM) - Tetraparesis (HCC); M62.838 (ICD-10-CM) - Muscle spasticity Previous Therapy: -- Baclofen 03/22/2024 - current -- Gabapentin 03/22/2024 - current PA submitted on date: 10/22/2024 [facility] WQ- LATENT: [place]- [id number] Pharmacy will addend this encounter with response from plan. Thank you, Nayana Gifford Medication Activities Director [facility] [phone] opt 3 * Cindy Pastor PharmD - 10/19/2024 9:03 AM EDT Specialty Pharmacy Onboarding Note: [facility] The specialty medication has been reviewed for appropriate use, dose, route, frequency and duration. Appropriate actions will follow, which may include a prior authorization, patient assistance, and/or sending to the appropriate filling pharmacy. Updates will be made within [facility]'s [employer] Program. Appt: 10/27- NEW INS Referral: [id number] Provider: Cynthia Bloom MD Medication: Botox 400u q 3 mo Diagnosis: G82.50 (ICD-10-CM) - Tetraparesis (HCC) M62.838 (ICD-10-CM) - Muscle spasticity Benefit: pharmacy Cindy Pastor PharmD documented in this [id number] Progress note Author German Finney [facility] Note Date/Time November 01, 2024 11:5 9pm [facility] [address] [place] [address] Progress Note - Wound Care 10/19/24 1148 MR#: [id number] Acct: [id number] Name: MAIDA POLANCO Rep #:[id number] : 1980 44 From: German Finney DPM PCP: Dr. Markel Bell MD Status:RE G RCR Location: History of Present Illness Date of Service: 10/19/24 History of Wound: Patient quadriplegic follows up for left plantar fifth MPJ ulceration which started as a pressure ulceration. Patient denies constitutional symptoms pain or any changes since previous visit. Objective Data Objective Data Vital Signs: Vital Signs Temp Pulse Resp BP O2 Del Method 97.4 F L 55 L 16 143/90 H Room Air 10/19/24 11:28 10/19/24 11:28 10/19/24 11:28 10/19/24 11:28 10/19/24 11:28 Oxygen Delivery Method Room Air Weight: 117.934 kg Body Mass Index (BMI) 35.2 Lab / Micro Data Micro: Microbiology 10/05/24 08:47 Ulcer, Decubitus - Left Foot Gram Stain - Final 10/05/24 08:47 Ulcer, Decubitus - Left Foot Wound Culture - Final Staphylococcus caprae 10/05/24 08:47 Ulcer, Decubitus - Left Foot Anaerobic Culture - Final No anaerobic bacteria isolated. Physical Exam Narrative Neurovascular status unchanged. Full-thickness wound noted to plantar lateral fifth MPJ. Wound extends down to the level of the abductor DJB minimi tendon with exposed fifth MPJ joint capsule. There is necrosis noted predebridement postdebridement wound demonstrated stable granular base without acute signs of infection. However thewound does probe down to capsule. Musculoskeletal no gross deformity contributing wound formation. Debridement Note Debridement Note Post-Debridement Measurements and Additional Note: Post-Debridement Measurements/Treatment - Nurse 1 - General Ulcer Assessment Start: 10/05/24 08:16 Freq: Status: Active Protocol: .LOWEXT Activity Type Activity Date Activity User E-sign Co-sign Detail Recorded Client Recorded Date Recorded By Document 10/05/24 08:16 KW [id number] 10/05/24 08:21 KW Document 10/12/24 11:07 KW [id number] 10/12/24 11:22 KW Edit Result 10/12/24 11:07 KW (1) [id number] 10/12/24 11:46 JF Document 10/19/24 11:28 BMF [id number] 10/19/24 11:33 BMF (1) *Infection - Person Taught => Patient,Family - Teaching Method => Discussion, => Demonstration - Response to teaching => Return => Demonstration, => Verbalize => Understanding 10/05/24 10/12/24 10/19/24 08:16 11:07 11:28 - Today's Visit Information Type of service Follow-up Visit Follow-up Visit Follow-up Visit (Physician/GRAPHIC EDITOR (Physician/GRAPHIC EDITOR (Physician/GRAPHIC EDITOR ) ) ) Arrival Mode Wheelchair Wheelchair Wheelchair Transfer Assistance None Accompanied by , Patient Identification Verified (Name & Yes Yes Yes ) Patient Requires Transmission-Based No Precautions Height and Weight Body Mass Index (BMI) 35.2 35.2 35.2 BMI Classification Obese Obese Obese Vital Signs Temperature (97.8 F-99.1 F) 97.6 F L 97.2 F L 97.4 F L Temperature Source Temporal Temporal Temporal Pulse Rate (60-100) 56 L 55 L Pulse Location Monitor Monitor Monitor Respiratory Rate (12-18) 16 16 16 Respiratory rate source Monitor Observation Observation Oxygen Delivery Method Room Air Room Air Room Air Blood Pressure (90/60-120/80) 113/63 143/90 H Blood Pressure Mean (mm Hg) 79 107 Source Monitor Monitor Monitor Position Sitting Semi-Fowlers Sitting Blood Pressure Location Left Arm Left Arm History Since Last Visit- (Skip if this is Patient's initial visit) Have you changed medications since your No No No last visit? Any new allergies or adverse reactions No No No Had a fall/change in ADL's that may No No No increase risk of falls Signs or symptoms of abuse and/or No No No neglect since last visit Have you been in the hospital since your No No No last visit? Has dressing in place as prescribed Yes Yes Yes Has compression in place as prescribed Yes Yes N/A Has offloadiing in place as prescribed N/A Yes Yes Experienced any changes in pain level or No No No management Left Footwear Regular Shoe Surgical Shoe Surgical Shoe with pressure with pressure relief insole relief insole Right Footwear Regular Shoe Regular Shoe Regular Shoe Pain Scale: 0-10 Numeric Is Patient Pain Free? Yes Yes Yes Teaching: Wound Center *Infection -Person Taught Patient,Family -Teaching Method Discussion, Demonstration -Response to teaching Return Demonstration, Verbalize Understanding WC - Nurse 1 - General Ulcer Measurement Start: 10/05/24 08:16 Freq: Status: Active Protocol: Activity Type Activity Date Activity User E-sign Co-sign Detail Recorded Client Recorded Date Recorded By Document 10/05/24 08:16 [id number] 10/05/24 08:21 Document 10/12/24 11:07 [id number] 10/12/24 11:22 KW Document 10/19/24 11:28 [facility] [id number] 10/19/24 11:33 [facility] 10/05/24 10/12/24 10/19/24 08:16 11:07 11:28 Wound Center Nurse 1 #1 lt lat foot -Combined with other wound No -Current Size (cm) - Length 1.3 1.2 1.1 -Current Size (cm) - Width 1.2 1 0.7 -Current Size (cm) - Depth 0.2 0.3 0.4 -Total Square Cm 1.56 1.2 0.77 -Date of Last Picture (Recall this 10/05/24 field) -Epithelialization Small 1-33% -Tunneling No -Undermining/Tunneling No -Circular Undermining No -Exudate Amt Medium Medium -Exudate Type Serosanguineous Serosanguineous -Wound Margin Distinct, Distinct, Outline Outline Attached Attached -Granulation Amt Large (67-100%) Large (67-100%) Large (67-100%) -Granulation Quality Red Red Red -Slough/Fibrin Yes -Necrosis Amt Small (1-33%) Small (1-33%) -Necrotic Tissue Type Eschar Adherent Slough -Texture (Livier-wound Skin Appearance) Assessed Assessed Assessed, Scarring -Moisture (Livier-wound Skin Appearance) Assessed Assessed,Dry/ Assessed Scaly -Color (Livier-wound Skin Appearance) Assessed Assessed Assessed -Temperature (Livier-wound Skin No Abnormality No Abnormality No Abnormality Appearance) (Pt Warm) (Pt Warm) (Pt Warm) -Tenderness on Palpation (Livier-wound No No No Skin Appearance) -Ulcer Cleansing Soap and Water Soap and Water Rinsed/ Irrigated with Saline -Foul Odor after Cleansing No No No -Anesthetic Used 5% Lidocaine 5% Lidocaine Gel Gel WC - Nurse 2 - General Ulcer CM Notes Start: 10/05/24 08:16 Freq: Status: Active Protocol: Activity Type Activity Date Activity User E-sign Co-sign Detail Recorded Client Recorded Date Recorded By Document 10/05/24 08:46 [id number] 10/05/24 08:51 JF Document 10/12/24 11:40 JF [id number] 10/12/24 11:44 JF Edit Result 10/12/24 11:40 JF (1) [id number] 10/12/24 11:46 Document 10/19/24 11:44 JF [id number] 10/19/24 11:45 JF (1) #1 lt lat foot - Clinical Debridement Subcutaneous => Muscle / Fascia - Tissue Removed Subcutaneous => Muscle - Debridement - Subq, 1st 20sq cm Yes => - Debridement - Muscle / Fascia, 1st => Yes 20sq cm 10/05/24 10/12/24 10/19/24 08:46 11:40 11:44 Wound Center Nurse 2 #1 lt lat foot -Time 08:46 11:43 11:44 -Correct Patient Yes Yes Yes -Correct Side, Site, Position Yes Yes Yes -Correct Procedure Yes Yes Yes -Procedure Performed Yes Yes Yes -Type of Procedure Debridement Debridement Debridement -Clinical Debridement Muscle / Fascia Muscle / Fascia Muscle / Fascia -Tissue Removed Muscle,Fascia, Muscle Muscle Tendon -Post Debridement (cm) - Length 1.2 0.9 1.1 -Post Debridement (cm) - Width 1.0 1.0 0.8 -Post Debridement (cm) - Depth 0.4 0.4 0.3 -Total Square (Post) (cm) 1.20 0.90 0.88 -Area of Debridement (cm) - Length 1.2 0.9 1.1 -Area of Debridement (cm) - Width 1.0 1.0 0.8 -Total Square (Area) (cm) 1.20 0.90 0.88 -Tunneling No No No -Undermining/Tunneling No No No -Circular Undermining No No No -Wound/Ulcer Outcome Not Healed Not Healed Not Healed -Ulcer Cleansing Rinsed/ Rinsed/ Rinsed/ Irrigated with Irrigated with Irrigated with Saline Saline Saline -Foul Odor after Cleansing No No No -Bioengineered Tissue No No No -Bleeding Controlled with Pressure Pressure Pressure -Treatment Response Procedure Procedure Procedure Tolerated Well Tolerated Well Tolerated Well -Offloading Yes Yes Yes -Type of Offloading Surgical Shoe Surgical Shoe Surgical Shoe -Debridement - Muscle / Fascia, 1st Yes Yes Yes 20sq cm Pain Scale: 0-10 Numeric Is Patient Pain Free? Yes Yes Yes - Nurse 3 - General Ulcer D/C NN Start: 10/05/24 08:16 Freq: Status: Active Protocol: Activity Type Activity Date Activity User E-sign Co-sign Detail Recorded Client Recorded Date Recorded By Document 10/05/24 09:05 [id number] 10/05/24 09:06 Document 10/12/24 11:44 [id number] 10/12/24 11:45 10/05/24 10/12/24 09:05 11:44 Wound Care Center Nurse 3 #1 lt lat foot -Ulcer Cleansing Rinsed/ Irrigated with Saline -Foul Odor after Cleansing No -Primary Dressing Applied Promogran Promogran Claribel Matter, Claribel Matter, Silicone Border Silicone Border Foam 4x4 Foam 6x6 -Promogran Claribel Matter 1 1 -Silicone Border Foam 4x4 1 -Silicone Border Foam 6x6 1 Pain Scale: 0-10 Numeric Is Patient Pain Free? Yes Yes - Visit Discharge Discharge Condition Stable Stable Ambulatory Status Wheelchair Wheelchair Transportation Private Auto Private Auto Accompanied by Medication Reconcilliation completed & No Yes provided to patient/care provider Clinical Summary of Care Provided Yes Yes Notes: started darco shoe today Assessment/Plan Assessment/Plan (1) Non-pressure chronic ulcer of other part of left foot with fat layer exposed: CODE(S): L97.522 - Non-pressure chronic ulcer of other part of left foot with fat layer exposed PLAN: Exam performed. Radiographs reviewed. Reviewed radiologist findings concerning for fifth digit proximal phalanx fracture. Upon personal review I did not identify this to be aproblem. Additionally, the wound defect correlates with the soft tissue emphysema that was read. 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 Wound cultures were reviewed and demonstrated normal skin wally. Patient will complete course of antibiotics. Left fifth MPJ wound debrided excisionally down to including level of muscle/tendon using combination of 15 blade pickups bone rongeurs and 5 mm dermal curette. Portion of the abductor digit he minimi tendon was excised fromthe wound. Stable bleeding granular base noted postdebridement. No anesthesia due to neuropathy. Patient tolerated procedure well. Hemostasis obtained with light compression. Pre and postdebridement measurements document nursing notes. Dispensed surgical shoe. Discussed keeping pressure off left foot. Discussed adequate protein nutrition for wound healing. Patient follow-up in 1 week. (2) Other hereditary and idiopathic neuropathies: CODE(S): G60.8 - Other hereditary and idiopathic neuropathies (3) Cellulitis of left lower limb: CODE(S): L03.116 - Cellulitis of left lower limb 10/19/24 1148 <Electronically signed by German Finney DPM> Cosigner Signature (if applicable): CC: ~ Signed [facility] Work Phone: [phone]) 529-881306-17-2025 History of Present illness Narrative* Cindy aPstor, PharmD - 10/19/2024 9:03 AM EDT Specialty Pharmacy Onboarding Note: An order has been received by [facility]. The specialty medication has been reviewed for appropriate use, dose, route, frequency and duration. Appropriate actions will follow, which may include a prior authorization, patient assistance, and/or sending to the appropriate filling pharmacy. Updates will be made within [employer]. Appt: 10/27- NEW INS Referral: [id number] Provider: Cynthia Bloom MD Medication: Botox 400u q 3 mo Diagnosis: G82.50 (ICD-10-CM) - Tetraparesis (HCC) M62.838 (ICD-10-CM) - Muscle spasticity Benefit: pharmacy Cindy Pastor PharmD documented in this [id number] NotePrior Authorization Referral Coordination - PA Denied *STEP THERAPY REQUIRED* Medication and dosing: gemtesa Denial Reason: Step therapy, must trial preferred alternatives Myrbetriq (brand preferred by plan) Note from payer: Coverage is provided when the member has a history of at least 30 days of therapy with at least two preferred medications in this UPDL category with different active ingredients, which include but are not limited to Fesoterodine, Gelnique, Myrbetriq Tab (Brand name is preferred by the plan), Oxybutynin, Oxytrol, Solifenacin, and Trospium ACTION NEEDED: If appropriate, please change to a preferred alternative and send new escript to [place] [address] pharmacy. The Prior software test specialist has contacted the patient via my chart msg to advise on denial status and that a message has been sent to provider. Patient advised to follow up with provider's office if they have any further questions or if no answer after 3 business days. Full denial can be seen in media tab. Zaria Gill RPhThe [facility]06-10-2025 Progress note Author German Finney [facility] Note Date/Time October 12, 2024 11:3 7am [facility] [address] [place] [id number] Progress Note - Wound Care 10/12/24 1135 MR#: [id number] Acct: [id number] Name: MAIDA POLANCO Rep #:[id number] : 1980 44 From: German Finney DPM PCP: Dr. Markel Bell MD Status:RE G RCR Location: History of Present Illness Date of Service: 10/12/24 History of Wound: Patient quadriplegic follows up for left plantar fifth MPJ ulceration which started as a pressure ulceration. Patient denies constitutional symptoms pain or any changes since previous visit. Objective Data Objective Data Vital Signs: Vital Signs Temp Pulse Resp BP O2 Del Method 97.2 F L 56 L 16 113/63 Room Air 10/12/24 11:07 10/12/24 11:07 10/12/24 11:07 10/12/24 11:07 10/12/24 11:07 Oxygen Delivery Method Room Air Weight: 117.934 kg Body Mass Index (BMI) 35.2 Lab / Micro Data Micro: Microbiology 10/05/24 08:47 Ulcer, Decubitus - Left Foot Gram Stain - Final 10/05/24 08:47 Ulcer, Decubitus - Left Foot Wound Culture - Final Staphylococcus caprae 10/05/24 08:47 Ulcer, Decubitus - Left Foot Anaerobic Culture - Final No anaerobic bacteria isolated. Physical Exam Narrative Neurovascular status unchanged. Full-thickness wound noted to plantar lateral fifth MPJ. Wound extends down to the level of the abductor DJB minimi tendon with exposed fifth MPJ joint capsule. There is necrosis noted predebridement postdebridement wound demonstrated stable granular base without acute signs of infection. However thewound does probe down to capsule. Musculoskeletal no gross deformity contributing wound formation. Debridement Note Debridement Note Post-Debridement Measurements and Additional Note: Post-Debridement Measurements/Treatment - Nurse 1 - General Ulcer Assessment Start: 10/05/24 08:16 Freq: Status: Active Protocol: RUDI.TELLOEXCelio Activity Type Activity Date Activity User E-sign Co-sign Detail Recorded Client Recorded Date Recorded By Document 10/05/24 08:16 [id number] 10/05/24 08:21 KW Document 10/12/24 11:07 KW [id number] 10/12/24 11:22 KW 10/05/24 10/12/24 08:16 11:07 - Today's Visit Information Type of service Follow-up Visit Follow-up Visit (Physician/GRAPHIC EDITOR (Physician/GRAPHIC EDITOR ) ) Arrival Mode Wheelchair Wheelchair Accompanied by Patient Identification Verified (Name & Yes Yes ) Height and Weight Body Mass Index (BMI) 35.2 35.2 BMI Classification Obese Obese Vital Signs Temperature (97.8 F-99.1 F) 97.6 F L 97.2 F L Temperature Source Temporal Temporal Pulse Rate (60-100) 56 L Pulse Location Monitor Monitor Respiratory Rate (12-18) 16 16 Respiratory rate source Monitor Observation Oxygen Delivery Method Room Air Room Air Blood Pressure (90/60-120/80) 113/63 Blood Pressure Mean (mm Hg) 79 Source Monitor Monitor Position Sitting Semi-Fowlers Blood Pressure Location Left Arm History Since Last Visit- (Skip if this is Patient's initial visit) Have you changed medications since your No No last visit? Any new allergies or adverse reactions No No Had a fall/change in ADL's that may No No increase risk of falls Signs or symptoms of abuse and/or No No neglect since last visit Have you been in the hospital since your No No last visit? Has dressing in place as prescribed Yes Yes Has compression in place as prescribed Yes Yes Has offloadiing in place as prescribed N/A Yes Experienced any changes in pain level or No No management Left Footwear Regular Shoe Surgical Shoe with pressure relief insole Right Footwear Regular Shoe Regular Shoe Pain Scale: 0-10 Numeric Is Patient Pain Free? Yes Yes WC - Nurse 1 - General Ulcer Measurement Start: 10/05/24 08:16 Freq: Status: Active Protocol: Activity Type Activity Date Activity User E-sign Co-sign Detail Recorded Client Recorded Date Recorded By Document 10/05/24 08:16 KW [id number] 10/05/24 08:21 KW Document 10/12/24 11:07 KW [id number] 10/12/24 11:22 KW 10/05/24 10/12/24 08:16 11:07 Wound Center Nurse 1 #1 lt lat foot -Current Size (cm) - Length 1.3 1.2 -Current Size (cm) - Width 1.2 1 -Current Size (cm) - Depth 0.2 0.3 -Total Square Cm 1.56 1.2 -Date of Last Picture (Recall this 10/05/24 field) -Exudate Amt Medium -Exudate Type Serosanguineous -Wound Margin Distinct, Outline Attached -Granulation Amt Large (67-100%) Large (67-100%) -Granulation Quality Red Red -Necrosis Amt Small (1-33%) -Necrotic Tissue Type Eschar -Texture (Livier-wound Skin Appearance) Assessed Assessed -Moisture (Livier-wound Skin Appearance) Assessed Assessed,Dry/ Scaly -Color (Livier-wound Skin Appearance) Assessed Assessed -Temperature (Livier-wound Skin No Abnormality No Abnormality Appearance) (Pt Warm) (Pt Warm) -Tenderness on Palpation (Livier-wound No No Skin Appearance) -Ulcer Cleansing Soap and Water Soap and Water -Foul Odor after Cleansing No No -Anesthetic Used 5% Lidocaine Gel - Nurse 2 - General Ulcer CM Notes Start: 10/05/24 08:16 Freq: Status: Active Protocol: Activity Type Activity Date Activity User E-sign Co-sign Detail Recorded Client Recorded Date Recorded By Document 10/05/24 08:46 DARIN [id number] 10/05/24 08:51 10/05/24 08:46 Wound Center Nurse 2 -Time 08:46 -Correct Patient Yes -Correct Side, Site, Position Yes -Correct Procedure Yes -Procedure Performed Yes -Type of Procedure Debridement -Clinical Debridement Muscle / Fascia -Tissue Removed Muscle,Fascia, Tendon -Post Debridement (cm) - Length 1.2 -Post Debridement (cm) - Width 1.0 -Post Debridement (cm) - Depth 0.4 -Total Square (Post) (cm) 1.20 -Area of Debridement (cm) - Length 1.2 -Area of Debridement (cm) - Width 1.0 -Total Square (Area) (cm) 1.20 -Tunneling No -Undermining/Tunneling No -Circular Undermining No -Wound/Ulcer Outcome Not Healed -Ulcer Cleansing Rinsed/ Irrigated with Saline -Foul Odor after Cleansing No -Bioengineered Tissue No -Bleeding Controlled with Pressure -Treatment Response Procedure Tolerated Well -Offloading Yes -Type of Offloading Surgical Shoe -Debridement - Muscle / Fascia, 1st Yes 20sq cm Pain Scale: 0-10 Numeric Is Patient Pain Free? Yes - Nurse 3 - General Ulcer D/C NN Start: 10/05/24 08:16 Freq: Status: Active Protocol: Activity Type Activity Date Activity User E-sign Co-sign Detail Recorded Client Recorded Date Recorded By Document 10/05/24 09:05 ANTOINE [id number] 10/05/24 09:06 10/05/24 09:05 Wound Care Center Nurse 3 #1 lt lat foot -Primary Dressing Applied Promogran Claribel Matter, Silicone Border Foam 4x4 -Promogran Claribel Matter 1 -Silicone Border Foam 4x4 1 Pain Scale: 0-10 Numeric Is Patient Pain Free? Yes - Visit Discharge Discharge Condition Stable Ambulatory Status Wheelchair Transportation Private Auto Medication Reconcilliation completed & No provided to patient/care provider Clinical Summary of Care Provided Yes Notes: started darco shoe today Assessment/Plan Assessment/Plan (1) Non-pressure chronic ulcer of other part of left foot with fat layer exposed: CODE(S): L97.522 - Non-pressure chronic ulcer of other part of left foot with fat layer exposed PLAN: Exam performed. Radiographs reviewed. Reviewed radiologist findings concerning for fifth digit proximal phalanx fracture. Upon personal review I did not identify this to be aproblem. Additionally, the wound defect correlates with the soft tissue emphysema that was read. 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 Wound cultures were reviewed and demonstrated normal skin wally. Patient will complete course of antibiotics. Left fifth MPJ wound debrided excisionally down to including level of muscle/tendon using combination of 15 blade pickups bone rongeurs and 5 mm dermal curette. Portion of the abductor digit he minimi tendon was excised fromthe wound. Stable bleeding granular base noted postdebridement. No anesthesia due to neuropathy. Patient tolerated procedure well. Hemostasis obtained with light compression. Pre and postdebridement measurements document nursing notes. Dispensed surgical shoe. Discussed keeping pressure off left foot. Discussed adequate protein nutrition for wound healing. Patient follow-up in 1 week. (2) Other hereditary and idiopathic neuropathies: CODE(S): G60.8 - Other hereditary and idiopathic neuropathies (3) Cellulitis of left lower limb: CODE(S): L03.116 - Cellulitis of left lower limb 10/12/24 1137 <Electronically signed by German Finney DPM> Cosigner Signature (if applicable): CC: ~ Signed [facility] Work Phone: [phone]) [phone] Progress note [facility] [address] [place] [address] Progress Note - Wound Care 10/12/24 1135 MR#: [id number] Acct: [id number] Name: MAIDA POLANCO Rep #:[id number] : 1980 44 From: German Finney DPM PCP: Dr. Markel Bell MD Status:RE G RCR Location: History of Present Illness Date of Service: 10/12/24 History of Wound: Patient quadriplegic follows up for left plantar fifth MPJ ulceration which started as a pressure ulceration. Patient denies constitutional symptoms pain or any changes since previous visit. Objective Data Objective Data Vital Signs: Vital Signs Temp Pulse Resp BP O2 Del Method 97.2 F L 56 L 16 113/63 Room Air 10/12/24 11:07 10/12/24 11:07 10/12/24 11:07 10/12/24 11:07 10/12/24 11:07 Oxygen Delivery Method Room Air Weight: 117.934 kg Body Mass Index (BMI) 35.2 Lab / Micro Data Micro: Microbiology 10/05/24 08:47 Ulcer, Decubitus - Left Foot Gram Stain - Final 10/05/24 08:47 Ulcer, Decubitus - Left Foot Wound Culture - Final Staphylococcus caprae 10/05/24 08:47 Ulcer, Decubitus - Left Foot Anaerobic Culture - Final No anaerobic bacteria isolated. Physical Exam Narrative Neurovascular status unchanged. Full-thickness wound noted to plantar lateral fifth MPJ. Wound extends down to the level of the abductor DJB minimi tendon with exposed fifth MPJ joint capsule. There is necrosis noted predebridementpostdebridement wound demonstrated stable granular base without acute signs of infection. However th ewound does probe down to capsule. Musculoskeletal no gross deformity contributing wound formation. Debridement Note Debridement Note Post-Debridement Measurements and Additional Note: Post-Debridement Measurements/Treatment - Nurse 1 - General Ulcer Assessment Start: 10/05/24 08:16 Freq: Status: Active Protocol: DANIS Activity Type Activity Date Activity User E-sign Co-sign Detail Recorded Client Recorded Date Recorded By Document 10/05/24 08:16 KW [id number] 10/05/24 08:21 KW Document 10/12/24 11:07 KW [id number] 10/12/24 11:22 KW 10/05/24 10/12/24 08:16 11:07 - Today's Visit Information Type of service Follow-up Visit Follow-up Visit (Physician/GRAPHIC EDITOR (Physician/GRAPHIC EDITOR ) ) Arrival Mode Wheelchair Wheelchair Accompanied by Patient Identification Verified (Name & Yes Yes ) Height and Weight Body Mass Index (BMI) 35.2 35.2 BMI Classification Obese Obese Vital Signs Temperature (97.8 F-99.1 F) 97.6 F L 97.2 F L Temperature Source Temporal Temporal Pulse Rate (60-100) 56 L Pulse Location Monitor Monitor Respiratory Rate (12-18) 16 16 Respiratory rate source Monitor Observation Oxygen Delivery Method Room Air Room Air Blood Pressure (90/60-120/80) 113/63 Blood Pressure Mean (mm Hg) 79 Source Monitor Monitor Position Sitting Semi-Fowlers Blood Pressure Location Left Arm History Since Last Visit- (Skip if this is Patient's initial visit) Have you changed medications since your No No last visit? Any new allergies or adverse reactions No No Had a fall/change in ADL's that may No No increase risk of falls Signs or symptoms of abuse and/or No No neglect since last visit Have you been in the hospital since your No No last visit? Has dressing in place as prescribed Yes Yes Has compression in place as prescribed Yes Yes Has offloadiing in place as prescribed N/A Yes Experienced any changes in pain level or No No management Left Footwear Regular Shoe Surgical Shoe with pressure relief insole Right Footwear Regular Shoe Regular Shoe Pain Scale: 0-10 Numeric Is Patient Pain Free? Yes Yes WC - Nurse 1 - General Ulcer Measurement Start: 10/05/24 08:16 Freq: Status: Active Protocol: Activity Type Activity Date Activity User E-sign Co-sign Detail Recorded Client Recorded Date Recorded By Document 10/05/24 08:16 KW [id number] 10/05/24 08:21 KW Document 10/12/24 11:07 KW [id number] 10/12/24 11:22 KW 10/05/24 10/12/24 08:16 11:07 Wound Center Nurse 1 #1 lt lat foot -Current Size (cm) - Length 1.3 1.2 -Current Size (cm) - Width 1.2 1 -Current Size (cm) - Depth 0.2 0.3 -Total Square Cm 1.56 1.2 -Date of Last Picture (Recall this 10/05/24 field) -Exudate Amt Medium -Exudate Type Serosanguineous -Wound Margin Distinct, Outline Attached -Granulation Amt Large (67-100%) Large (67-100%) -Granulation Quality Red Red -Necrosis Amt Small (1-33%) -Necrotic Tissue Type Eschar -Texture (Livier-wound Skin Appearance) Assessed Assessed -Moisture (Livier-wound Skin Appearance) Assessed Assessed,Dry/ Scaly -Color (Livier-wound Skin Appearance) Assessed Assessed -Temperature (Livier-wound Skin No Abnormality No Abnormality Appearance) (Pt Warm) (Pt Warm) -Tenderness on Palpation (Livier-wound No No Skin Appearance) -Ulcer Cleansing Soap and Water Soap and Water -Foul Odor after Cleansing No No -Anesthetic Used 5% Lidocaine Gel WC - Nurse 2 - General Ulcer CM Notes Start: 10/05/24 08:16 Freq: Status: Active Protocol: Activity Type Activity Date Activity User E-sign Co-sign Detail Recorded Client Recorded Date Recorded By Document 10/05/24 08:46 [id number] 10/05/24 08:51 10/05/24 08:46 Wound Center Nurse 2 -Time 08:46 -Correct Patient Yes -Correct Side, Site, Position Yes -Correct Procedure Yes -Procedure Performed Yes -Type of Procedure Debridement -Clinical Debridement Muscle / Fascia -Tissue Removed Muscle,Fascia, Tendon -Post Debridement (cm) - Length 1.2 -Post Debridement (cm) - Width 1.0 -Post Debridement (cm) - Depth 0.4 -Total Square (Post) (cm) 1.20 -Area of Debridement (cm) - Length 1.2 -Area of Debridement (cm) - Width 1.0 -Total Square (Area) (cm) 1.20 -Tunneling No -Undermining/Tunneling No -Circular Undermining No -Wound/Ulcer Outcome Not Healed -Ulcer Cleansing Rinsed/ Irrigated with Saline -Foul Odor after Cleansing No -Bioengineered Tissue No -Bleeding Controlled with Pressure -Treatment Response Procedure Tolerated Well -Offloading Yes -Type of Offloading Surgical Shoe -Debridement - Muscle / Fascia, 1st Yes 20sq cm Pain Scale: 0-10 Numeric Is Patient Pain Free? Yes - Nurse 3 - General Ulcer D/C NN Start: 10/05/24 08:16 Freq: Status: Active Protocol: Activity Type Activity Date Activity User E-sign Co-sign Detail Recorded Client Recorded Date Recorded By Document 10/05/24 09:05 KW [id number] 10/05/24 09:06 KW 10/05/24 09:05 Wound Care Center Nurse 3 #1 lt lat foot -Primary Dressing Applied Promogran Claribel Matter, Silicone Border Foam 4x4 -Promogran Claribel Matter 1 -Silicone Border Foam 4x4 1 Pain Scale: 0-10 Numeric Is Patient Pain Free? Yes WC - Visit Discharge Discharge Condition Stable Ambulatory Status Wheelchair Transportation Private Auto Medication Reconcilliation completed & No provided to patient/care provider Clinical Summary of Care Provided Yes Notes: started darco shoe today Assessment/Plan Assessment/Plan (1) Non-pressure chronic ulcer of other part of left foot with fat layer exposed: CODE(S): L97.522 - Non-pressure chronic ulcer of other part of left foot with fat layer exposed PLAN: Exam performed. Radiographs reviewed. Reviewed radiologist findings concerning for fifth digit proximal phalanx fracture. Upon personal review I did not identify this to be aproblem. Additionally, the wound defect correlates with the soft tissue emphysema that was read. 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 Wound cultures were reviewed and demonstrated normal skin wally. Patient will complete course of antibiotics. Left fifth MPJ wound debrided excisionally down to including level of muscle/tendon using combination of 15 blade pickups bone rongeurs and 5 mm dermal curette. Portion of the abductor digit he minimi tendon was excised fromthe wound. Stable bleeding granular base noted postdebridement. No anesthesi a due to neuropathy. Patient tolerated procedure well. Hemostasis obtained with light compression. Pre and postdebridement measurements document nursing notes. Dispensed surgical shoe. Discussed keeping pressure off left foot. Discussed adequate protein nutrition for wound healing. Patient follow-up in 1 week. (2) Other hereditary and idiopathic neuropathies: CODE(S): G60.8 - Other hereditary and idiopathic neuropathies (3) Cellulitis of left lower limb: CODE(S): L03.116 - Cellulitis of left lower limb 10/12/24 1137 Cosigner Signature (if applicable): CC: ~ Signed [facility]06-06-2025 Radiology Diagnostic study note [facility] Imaging Services [address] [place] [address] Foot min 3 Views MR#: [id number] Acct: [id number] Name: MAIDA POLANCO Rep #: [id number] : 1980 M 44 From: Uday Amor MD PCP: Dr. Markel Bell MD Status: JAZMIN Russo CLI Study:Foot min 3 Views Date of Exam: 09/26 Exam# [id number] Ordering Dr: German Finney DPM PROCEDURE: FOOT MIN 3 VIEWS 10/07/2024 REASON FOR EXAM: FOOT WOUND LATERAL FOOT BY DISTAL 5TH MT, SINCE BEGINNING OF SEPTEMBER TECHNIQUE: Three views of the left foot were obtained. COMPARISON: None. FINDINGS: There is possible fracture of the base of the proximal phalanx of the 5th toe. There is lucency of the head of the 5th metatarsal medially without evidence of cortical disruption. The overlying softtissue is obscured by bandage material. Subcutaneous emphysema is not excluded. There is mild arthritis of the 1st MTP joint. RAD/Foot min 3 Views IMPRESSION: 1. Apparent osteopenia of the head of the 5th metatarsal medially without evidence of cortical disruption or periosteal reaction. 2. Possible fracture of the proximal phalanx of the 5th toe. 3. Possible subcutaneous emphysema overlying the 5th MTP joint. Reading Location: [id number] CC: EMELIA Finney; Dr. Markel Bell MD ~ Waxer Tender: Signed [facility] Work Phone: [phone]) 417-910706-03-2025 Progress note Author German Finney [facility] Note Date/Time October 05, 2024 9:01a [facility] [address] [place] [id number] Progress Note - Wound Care 10/05/24 0858 MR#: [id number] Acct: [id number] Name: MAIDA POLANCO Rep #:[id number] : 1980 44 From: German Finney DPM PCP: Dr. Markel Bell MD Status:JAZMIN Russo RCR Location: History of Present Illness Date of Service: 10/05/24 History of Wound: Patient quadriplegic follows up for left plantar fifth MPJ ulceration which started as a pressure ulceration. Patient denies constitutional symptoms pain or any changes since previous visit. Objective Data Objective Data Vital Signs: Vital Signs Temp Pulse Resp BP O2 Del Method 97.6 F L 53 L 16 137/67 H Room Air 10/05/24 08:16 10/03/24 00:23 10/05/24 08:16 10/03/24 00:23 10/05/24 08:16 Oxygen Delivery Method Room Air Weight: 117.934 kg Body Mass Index (BMI) 35.2 Physical Exam Narrative Neurovascular status unchanged. Full-thickness wound noted to plantar lateral fifth MPJ. Wound extends down to the level of the abductor DJB minimi tendon with exposed fifth MPJ joint capsule. There is necrosis noted predebridement postdebridement wound demonstrated stable granular base without acute signs of infection. However thewound does probe down to capsule. Musculoskeletal no gross deformity contributing wound formation. Debridement Note Debridement Note Post-Debridement Measurements and Additional Note: Post-Debridement Measurements/Treatment - Nurse 1 - General Ulcer Assessment Start: 10/05/24 08:16 Freq: Status: Active Protocol: .LOWEXT Activity Type Activity Date Activity User E-sign Co-sign Detail Recorded Client Recorded Date Recorded By Document 10/05/24 08:16 [id number] 10/05/24 08:21 10/05/24 08:16 - Today's Visit Information Type of service Follow-up Visit (Physician/GRAPHIC EDITOR ) Arrival Mode Wheelchair Accompanied by Patient Identification Verified (Name & Yes ) Height and Weight Body Mass Index (BMI) 35.2 BMI Classification Obese Vital Signs Temperature (97.8 F-99.1 F) 97.6 F L Temperature Source Temporal Pulse Location Monitor Respiratory Rate (12-18) 16 Respiratory rate source Monitor Oxygen Delivery Method Room Air Source Monitor Position Sitting History Since Last Visit- (Skip if this is Patient's initial visit) Have you changed medications since your No last visit? Any new allergies or adverse reactions No Had a fall/change in ADL's that may No increase risk of falls Signs or symptoms of abuse and/or No neglect since last visit Have you been in the hospital since your No last visit? Has dressing in place as prescribed Yes Has compression in place as prescribed Yes Has offloadiing in place as prescribed N/A Experienced any changes in pain level or No management Left Footwear Regular Shoe Right Footwear Regular Shoe Pain Scale: 0-10 Numeric Is Patient Pain Free? Yes - Nurse 1 - General Ulcer Measurement Start: 10/05/24 08:16 Freq: Status: Active Protocol: Activity Type Activity Date Activity User E-sign Co-sign Detail Recorded Client Recorded Date Recorded By Document 10/05/24 08:16 KW [id number] 10/05/24 08:21 KW 10/05/24 08:16 Wound Center Nurse 1 #1 lt lat foot -Current Size (cm) - Length 1.3 -Current Size (cm) - Width 1.2 -Current Size (cm) - Depth 0.2 -Total Square Cm 1.56 -Date of Last Picture (Recall this 10/05/24 field) -Granulation Amt Large (67-100%) -Granulation Quality Red -Necrosis Amt Small (1-33%) -Necrotic Tissue Type Eschar -Texture (Livier-wound Skin Appearance) Assessed -Moisture (Livier-wound Skin Appearance) Assessed -Color (Livier-wound Skin Appearance) Assessed -Temperature (Livier-wound Skin No Abnormality Appearance) (Pt Warm) -Tenderness on Palpation (Livier-wound No Skin Appearance) -Ulcer Cleansing Soap and Water -Foul Odor after Cleansing No -Anesthetic Used 5% Lidocaine Gel WC - Nurse 2 - General Ulcer CM Notes Start: 10/05/24 08:16 Freq: Status: Active Protocol: Activity Type Activity Date Activity User E-sign Co-sign Detail Recorded Client Recorded Date Recorded By Document 10/05/24 08:46 JF [id number] 10/05/24 08:51 JF 10/05/24 08:46 Wound Center Nurse 2 -Time 08:46 -Correct Patient Yes -Correct Side, Site, Position Yes -Correct Procedure Yes -Procedure Performed Yes -Type of Procedure Debridement -Clinical Debridement Muscle / Fascia -Tissue Removed Muscle,Fascia, Tendon -Post Debridement (cm) - Length 1.2 -Post Debridement (cm) - Width 1.0 -Post Debridement (cm) - Depth 0.4 -Total Square (Post) (cm) 1.20 -Area of Debridement (cm) - Length 1.2 -Area of Debridement (cm) - Width 1.0 -Total Square (Area) (cm) 1.20 -Tunneling No -Undermining/Tunneling No -Circular Undermining No -Wound/Ulcer Outcome Not Healed -Ulcer Cleansing Rinsed/ Irrigated with Saline -Foul Odor after Cleansing No -Bioengineered Tissue No -Bleeding Controlled with Pressure -Treatment Response Procedure Tolerated Well -Offloading Yes -Type of Offloading Surgical Shoe -Debridement - Muscle / Fascia, 1st Yes 20sq cm Pain Scale: 0-10 Numeric Is Patient Pain Free? Yes Assessment/Plan Assessment/Plan (1) Non-pressure chronic ulcer of other part of left foot with fat layer exposed: CODE(S): L97.522 - Non-pressure chronic ulcer of other part of left foot with fat layer exposed PLAN: Exam performed. Left fifth MPJ wound debrided excisionally down to including level of muscle/tendon using combination of 15 blade pickups bone rongeurs and 5 mm dermal curette. Portion of the abductor digit he minimi tendon was excised fromthe wound. Stable bleeding granular base noted postdebridement. No anesthesia due to neuropathy. Patient tolerated procedure well. Hemostasis obtained with light compression. Pre and postdebridement measurements document nursing notes. Wound was flushed and cultured. Prescription for doxycycline was provided. Ordered left foot x-ray. Dispensed surgical shoe. Discussed keeping pressure off left foot. Discussed adequate protein nutrition for wound healing. Patient follow-up in 1 week. (2) Other hereditary and idiopathic neuropathies: CODE(S): G60.8 - Other hereditary and idiopathic neuropathies (3) Cellulitis of left lower limb: CODE(S): L03.116 - Cellulitis of left lower limb 10/05/24 0901 <Electronically signed by German Finney DPM> Cosigner Signature (if applicable): CC: ~ Signed [facility] Work Phone: 1(185) [phone] Progress note [facility] [address] [place] [address] Progress Note - Wound Care 10/05/24 0858 MR#: [id number] Acct: [id number] Name: MAIDA POLANCO Rep #:[id number] : 1980 44 From: German Finney DPM PCP: Dr. Markel Bell MD Status:RE G RCR Location: History of Present Illness Date of Service: 10/05/24 History of Wound: Patient quadriplegic follows up for left plantar fifth MPJ ulceration which started as a pressure ulceration. Patient denies constitutional symptoms pain or any changes since previous visit. Objective Data Objective Data Vital Signs: Vital Signs Temp Pulse Resp BP O2 Del Method 97.6 F L 53 L 16 137/67 H Room Air 10/05/24 08:16 10/03/24 00:23 10/05/24 08:16 10/03/24 00:23 10/05/24 08:16 Oxygen Delivery Method Room Air Weight: 117.934 kg Body Mass Index (BMI) 35.2 Physical Exam Narrative Neurovascular status unchanged. Full-thickness wound noted to plantar lateral fifth MPJ. Wound extends down to the level of the abductor DJB minimi tendon with exposed fifth MPJ joint capsule. There is necrosis noted predebridementpostdebridement wound demonstrated stable granular base without acute signs of infection. However th ewound does probe down to capsule. Musculoskeletal no gross deformity contributing wound formation. Debridement Note Debridement Note Post-Debridement Measurements and Additional Note: Post-Debridement Measurements/Treatment WC - Nurse 1 - General Ulcer Assessment Start: 10/05/24 08:16 Freq: Status: Active Protocol: DANIS Activity Type Activity Date Activity User E-sign Co-sign Detail Recorded Client Recorded Date Recorded By Document 10/05/24 08:16 [id number] 10/05/24 08:21 KW 10/05/24 08:16 - Today's Visit Information Type of service Follow-up Visit (Physician/GRAPHIC EDITOR ) Arrival Mode Wheelchair Accompanied by Patient Identification Verified (Name & Yes ) Height and Weight Body Mass Index (BMI) 35.2 BMI Classification Obese Vital Signs Temperature (97.8 F-99.1 F) 97.6 F L Temperature Source Temporal Pulse Location Monitor Respiratory Rate (12-18) 16 Respiratory rate source Monitor Oxygen Delivery Method Room Air Source Monitor Position Sitting History Since Last Visit- (Skip if this is Patient's initial visit) Have you changed medications since your No last visit? Any new allergies or adverse reactions No Had a fall/change in ADL's that may No increase risk of falls Signs or symptoms of abuse and/or No neglect since last visit Have you been in the hospital since your No last visit? Has dressing in place as prescribed Yes Has compression in place as prescribed Yes Has offloadiing in place as prescribed N/A Experienced any changes in pain level or No management Left Footwear Regular Shoe Right Footwear Regular Shoe Pain Scale: 0-10 Numeric Is Patient Pain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 protracted, upper cervical extended, lower cervical is flexed, cervical flexors extended, cervical extenders shortened IMPROVED 08/18/24 Skin integrity: Left 5th toe pressure wound from positioning Discussed PRAFO boots - contacting [facility] manager of case for adjustments / new ones due to wear down IMPROVED 08/18/24 Orthotic Checkout: Prevalon boots for nighttime 4 band abdominal binder Yves coleman bilateral PRAFO's x2 Equipment Checkout: Wheelchair: 2024 Make/model: Permobil M3, Mid-wheel, head array Vendor: Tom Block, OT, ATP, SMS [phone] Age of equipment: 1824 Cushion Make: ROHO Age of equipment: 2024 Other: power-lift / emma-lift, hospital bed ([facility]) ordered a bed extension (denied by insurance), roll-in shower chair, [facility]WC [facility] order placed for [employer] + electro-bike PROM: Date: 04/26/24 Side: R/L HIP hamstring SLR at 9/90 WFL ANKLE DF 0/0 Cervical AROM: in degrees Date: 04/26/24 08/18/24 Pain? Flexion: 10 10 Y not anymore Extension: 30 30 Y not anymore R Rotation 30 40 Y not anymore L Rotation: 50 50 Y not anymore R Lateral Flexion: 20 20 Y not anymore L Lateral Flexion 10 10 Y not anymore STRENGTH: Manual Muscle Test: 5= normal Date: 04/26/24 Side: R/L HIP flex 0 / 0 ext 0 / 0 abd 0 / 0 add 0 / 0 KNEE ext 0 / 0 flex 0 / 0 ANKLE DF 0 / 0 PF 0 / 0 INV 0 / 0 EV 0 / 0 Tone: Modified Leroy Scores for Spasticity: 0 = no increase in muscle tone 1 = Slight increase in muscle tone, manifested as a iqwzm-[id number]-[id number] or by minimal resistance at the end of range of motion 1+ = Slight increase in muscle tone, manifested by a catch, followed by minimal resistance throughout the remainder (less than half) of the range of motion 2 = More marked increase in muscle tone through most of the range of motion, but the part affected is still able to be easily moved 3 = Considerable increase in muscle tone; passive involvement difficult 4 = Affected part is rigid Muscle group R L Hip flexors Hip ADDuctors Knee flexors 2 2 Knee extensors Ankle Plantarflexors 2 2 Ankle Inversion Ankle Eversion Coordination: unable to test LE's due to weakness Proprioception: unable to test LE's due to weakness BALANCE TESTS: SHORT Sitting Balance: 04/26/24 Supported: With PWC backrest support - dependent Unsupported Unsupported with Eyes Closed: Reach to ankles Reach to floor Reach laterally Posterior lean, return to midline LONG Sitting Balance: Not appropriate Supported: Unsupported Unsupported with Eyes Closed Reach to ankles Reach to floor Reach laterally Posterior lean, return to midline FUNCTIONAL MOBILITY: Mat Mobility: 04/26/24 Short sit to long sit totalA Long sit to supine totalA Supine Roll to R totalA Supine Roll to L totalA Supine to long sitting via retro UE depression: totalA Supine to long sit via modified c maneuver through half sidelying totalA Long sit to short sit: totalA Sidelying to prone: totalA Prone to sidelying totalA Transfer status: 04/26/24 Level surfaces Power emma lift 2 difference 4 difference 6 difference Car transfers Power van with rear ramp entrance Floor transfers: Gait: N/A -- patient is non-ambulatory at this time Wheelchair Mobility/Skills: 04/26/24 Level surface propulsion: Household Distances: PWC - dependent in loaner chair Once head array will need training Level surface propulsion: community distances (> 1000 ft) : Unlevel surfaces community propulsion: Ramp negotiation: Static wheeli (more content not included)...The vLex [id number] History of Present illness Narrative* Kaleigh Frank, PT - 08/12/2024 10:22 AM EDT Images from the original note were not included. PT/OT Assistive Technology Note Patient is a 44 year old male presenting to Assistive Technology (AT) clinic to initiate or progress service provision for the following need: Delivery, fitting, and training. Patient is presenting in no acute distress. *Location of visit this date at pt home at address on file. Patient Information Name Maida Polanco Date of 1980 Address [address] [address] Phone Phone numbers Payor Payor: SKY - PPO/POS / Plan: SKY OPEN ACCESS / Product Type: PPO Patient Active Problem List Diagnosis Date Noted Impaired functional mobility, balance, and endurance 04/27/2024 Neck pain 04/27/2024 Tetraplegia (HCC) 04/26/2024 08/12/2024 07/15/2024 Referral/Therapy Overview Initiating Service Provision Wheeled mobility and seating needs Wheeled mobility and seating needs Referring Provider DO Neelima Yañez DO Date of Onset 12/29/2023 12/29/2023 Mobility-related Diagnosis tetraplegia; C4 AIS A tetraplegia; C4 AIS A Patient-stated Goals pressure mapping; still awaiting head array for PWC drive control. [employer] vendor. new power wheelchair delivery Discussed Risks/Benefits of Therapy Yes Yes 08/12/2024 Visit Information Reason for Visit Delivery, fitting, and training Others Present During Visit Other Other Visitor Present , Joey, present at visit; visit completed at pt home at address on file. 08/12/2024 07/15/2024 Assessment Height 6' 0 6' 0 Weight 238 lbs 238 lbs Respiratory Status Impaired? No No Falls History N/A N/A Bed Confined? Yes Yes Number of Hours Confined to Bed per Day? 6 6 Susceptible to Decubitus Ulcers? Yes Yes Skin Integrity Risk Factors History of Skin Breakdown;Heat/Moisture;Inability to Effectively Perform Pressure Relief;Impaired Sensation;High Frequency of Sheering Force during Functional Tasks;Asymmetric Posture History of Skin Breakdown;Heat/Moisture;Inability to Effectively Perform Pressure Relief ;Impaired Sensation;High Frequency of Sheering Force during Functional Tasks;Asymmetric Posture History of Skin Ulcers? Yes Yes Location/Stage of Previous Skin Ulcer intermittent wounds on sacrum intermittent wounds on sacrum Current Skin Breakdown? No No Bowel and Bladder Status Other;Dependent on others for bowel and bladder care Other;Dependent on others for bowel and bladder care Bowel and Bladder Status Other - Comment neurogenic bowel and bladder; condom catheter neurogenic bowel and bladder; condom catheter 08/12/2024 Pain Pain Score 2 PAIN: Pain Location Neck Pain Location Laterality Bilateral 08/12/2024 07/15/2024 Present Equipment Present Equipment and Technology Wheelchair;Cushion and/or Seating System Model Wheelchair;Cushion and/or Seating System Model Wheelchair Make Permobil M3; ROHO Permobil M3; ROHO Wheelchair Age 1 month new Wheelchair Cushion ROHO ROHO Wheelchair Cushion Age 1 month new New chair pre-adjustments 07/15/24 New chair A/P: 08/12/2024 07/15/2024 Wheelchair Activities Pressure Relief Type Tilt back power Tilt back power Level of Assistance for Pressure Relief Activities Dependent Dependent Wheelchair Activities Comments still dependent on caregiver/ for seating function access due lashawn awaits head array delivery from [employer]. power seating functions: tilt, recline, elevating legs, power seat elevation; currently dependent on caregivers to operate power seating functions due to lack of head array parts; awaiting from wax molder power seating functions: tilt, recline, elevating legs, power seat elevation; currently dependent on caregivers to operate power seating functions due to lack of head array parts; awaiting from wax molder 07/15/2024 08/12/2024 Home Living Type of Home House House Lives With Family Family Home Layout Multi-level Multi-level Home Access Ramped entrance Ramped entrance Bathroom Equipment Shower chair with back Shower chair with back Bathroom Comments roll in accessible shower system with tilt in space shower chair for caregiver dependent bathing roll in shower; accessible 07/15/2024 08/12/2024 Prior Function Level of Elizabeth Needs assistance with ADLs;Needs assistance with functional transfers;Needs assistance with homemaking Needs assistance with ADLs;Needs assistance with functional transfers;Needs assistance with homemaking Receives Help From Family Family ADL Assistance Needs assistance Needs assistance Bath Total Total Dressing Total Total Grooming Total Total Feeding Total Total Homemaking Assistance Needs assistance Needs assistance Meal Prep Total Total Laundry Total Total Vacuuming Total Total Cleaning Total Total Gardening Total Total Yard Work Total Total Driving Total Total Prior Function Comments in need of modifications to existing vehicle; will complete letter of medical necessity as part of this evaluation. awaiting vehicle modifications 08/12/2024 07/15/2024 Activity Tolerance Endurance Endurance does not limit participation in activity Endurance does not limit participationin activity Activity Tolerance Comments from [facility] with ordered head array drive control from [facility] level; currently unable to drive due to absence of head array components 08/12/2024 07/15/2024 Cognition Overall Cognitive Status WFL WFL 08/12/2024 07/15/2024 Vision Vision Assessment WFL WF 08/12/2024 07/15/2024 Sensation Light Touch Partial deficits in the RUE;Partial deficits in the LUE;Severe deficits in the RLE;Severe deficits in the LLE Partial deficits in the RUE;Partial deficits in the LUE;Severe deficits in the LLE;Severe deficits in the RLE 08/12/2024 07/15/2024 Coordination Movements are Fluid and Coordinated Yes Yes Coordination and Movement Description within available AROM within available AROM EXTREMITY ASSESSMENTS: * Extremity assessments are WFL unless otherwise noted. * All values in degrees unless otherwise noted. * Strength scores displayed as 0-5 manual muscle testing grade per Eagan scale. * P = PROM * If the patient is marked as a virtual visit, the MMT will be estimated with consideration to subjective report and demonstration of functional activities (I.e. lifting item above head, shifting weight in wheelchair, transferring, etc.) due to limitations associated with video visit format; to be confirmed at follow-up appointment in-person. 08/12/2024 Dominant Hand Which is your dominant hand? Right 08/12/2024 07/15/2024 RUE Assessment (P = PROM) RUE Assessment X X R Elbow Extension (P) -90 -90 R Wrist Flexion (P) -30 Degrees -30 Degrees R Wrist Extension (P) -30 Degrees -30 Degrees R Shoulder Flexion Strength 1/5 1/5 R Shoulder Extension Strength 1/5 1/5 R Shoulder ABduction Strength 1/5 1/5 R Shoulder Internal Rotation Strength 0/5 0/5 R Shoulder External Rotation Strength 1/5 1/5 R Shoulder Horizontal ABduction Strength 1/5 1/5 R Shoulder Horizontal ADduction Strength 1/5 1/5 R Elbow Flexion Strength 3+/5 3+/5 R Elbow Extension Strength 0/5 0/5 R Forearm Pronation Strength 0/5 0/5 R Forearm Supination Strength 3-/5 3-/5 R Wrist Flexion Strength 0/5 0/5 R Wrist Extension Strength 0/5 0/5 R Wrist Radial Deviation Strength 0/5 0/5 R Wrist Ulnar Deviation Strength 0/5 0/5 RUE Tone Hypertonic RUE Modified Leroy Score 3 in elbow flexors; flexion contracture as indicated above. 08/12/2024 07/15/2024 LUE Assessment (P = PROM) LUE Assessment X L Shoulder Flexion Strength 0/5 0/5 L Shoulder Extension Strength 0/5 0/5 L Shoulder ABduction Strength 0/5 0/5 L Shoulder Internal Rotation Strength 0/5 0/5 L Shoulder External Rotation Strength 0/5 0/5 L Shoulder Horizontal ABduction Strength 0/5 0/5 L Shoulder Horizontal ADduction Strength 0/5 0/5 L Elbow Flexion Strength 0/5 0/5 L Elbow Extension Strength 0/5 0/5 L Forearm Pronation Strength 0/5 0/5 L Forearm Supination Strength 0/5 0/5 L Wrist Flexion Strength 0/5 0/5 L Wrist Extension Strength 0/5 0/5 L Wrist Radial Deviation Strength 0/5 0/5 L Wrist Ulnar Deviation Strength 0/5 0/5 08/12/2024 07/15/2024 RLE Assessment (P = PROM) RLE Assesment X R Hip Flexion Strength 0/5 0/5 R Hip Extension Strength 0/5 0/5 R Hip ABduction Strength 0/5 0/5 R Hip ADduction Strength 0/5 0/5 R Knee Flexion Strength 0/5 0/5 R Knee Extension Strength 0/5 0/5 R Ankle Dorsiflexion Strength 0/5 0/5 R Ankle Plantar Flexion Strength 0/5 0/5 RLE Edema Location Medial Malleolus RLE Edema Quality Pitting 2 + RLE Tone Hypertonic RLE Modified Leroy Score + clonus 08/12/2024 07/15/2024 LLE Assessment (P = PROM) LLE Assessment X L Hip Flexion Strength 0/5 0/5 L Hip Extension Strength 0/5 0/5 L Hip ABduction Strength 0/5 0/5 L Hip ADduction Strength 0/5 0/5 L Knee Flexion Strength 0/5 0/5 L Knee Extension Strength 0/5 0/5 L Ankle Dorsiflexion Strength 0/5 0/5 L Ankle Plantarflexion Strength 0/5 0/5 LLE Edema Location Medial Malleolus LLE Edema Quality Pitting 2 + LLE Tone Hypertonic LLE Modified Leroy Score + clonus 08/12/2024 07/15/2024 Pertinent Body Measurements (symmetrical unless otherwise noted) Pertinent Body Measurements Comments not pertient to AT assessment this date. n/a 08/12/2024 07/15/2024 Posture Posture Description Forward head;Rounded shoulders;Increased thoracic kyphosis;Decreased lumbar lordosis;Scoliosis;Iliac crest height (see comment);Other (see comment) Forward head;Rounded shoulders;Increased thoracic kyphosis;Increased lumbar lordosis;Scoliosis;Iliac crest height (see comment);Other (see comment) Iliac Crest Height R elevatred 2 R elevatred 2 Posture Description - Other - Comments L C-curve thoracic scoliosis; deviations mild/moderate; posterior pelvic tilt, moderate L C-curve thoracic scoliosis; deviations mild/moderate; posterior pelvictilt, moderate 08/12/2024 07/15/2024 Ambulation Ambulation No No 08/12/2024 07/15/2024 Transfers Technique for Transfer Lateral Lateral Transfer Level of Assistance Dependent Dependent 08/12/2024 07/15/2024 Balance Static Sitting Balance Grade Poor Poor Dynamic Sitting Balance Grade Poor Poor Static Standing-Comments n/a n/a Dynamic Standing-Comments n/a n/a Ambulatory Testing: Reference Normative Values: Timed Up and Go - TUG Balance/Fall Risk Assessment Tool Pertinent normative values: >20 sec, Impaired functional mobility >30 sec, ADL difficulties 5 x Sit to Stand Test Pertinent normative values: >16 sec, significant increased risk for falls 08/12/2024 07/15/2024 Ambulatory Testing Testing Completed N/A N/A Reason Not Performed tetraplegia tetraplegia OUTCOME MEASURES: Functional Mobility Assessment (FMA) The FMA is a patient-reported outcome measure with established reliability and stability in assessing the functional performance of individuals who use or need wheeled mobility and seating interventions. Scores range from 0-100% satisfaction with functional performance associated with wheeled mobility and seating. The patient's response to the following statements will measure their level of agreement to how their current means of mobility allows them to complete the tasks mentioned. Each question will have a response that varies from 2 to 10 based on their level of agreement. The average of the responses out of a total score of 100 will be marked as the Total FMA score percentage. Total FMA Scoring (% satisfaction averaged for the 10 responses) Completely agree = 100% Mostly agree = 80% Slightly agree = 60% Slightly disagree = 40% Mostly disagree = 20% 08/12/2024 07/15/2024 My current means of mobility allows me to... *Current Mobility Device Power Wheelchair Power Wheelchair *FMA Comments Pt still unable to control PWC due to absence of PWC head array. to be completed following provision and training on use of head array (on order per vendor) necessary for independent operation of drive and power seating control. Carry out my daily routine as independently, safely, and efficiently as possible. 0 Meet my comfort needs 0 Meet my health needs 0 Operate it as independently, safely, and efficiently as possible 0 Reach and carry out tasks at different surface heights as independently, safely, and efficiently aspossible 0 Transfer from one surface to another 0 Carry out personal care tasks 0 Get around indoors 0 Get around outdoors 0 Use personal or public transportation as independetly, safely, and efficiently as possible 0 FMA Score (%) 0 ASSISTIVE TECHNOLOGY ASSESSMENT & TREATMENT PLAN *AT = Assistive Technology *MRADL = Mobility-Related Activities of Daily Living Maida Polanco is a 44 year old male presenting to AT clinic today for delivery, fitting, and training following AT service provision and equipment procurement for optimized MRADL independence, safety,and efficiency within the context of goals specified in plan of care. 08/12/2024 07/15/2024 Home Living Type of Home House House Lives With Family Family Home Layout Multi-level Multi-level Home Access Ramped entrance Ramped entrance Bathroom Equipment Shower chair with back Shower chair with back Bathroom Comments roll in shower; accessible roll in accessible shower system with tilt in space shower chair for caregiver dependent bathing Pressure mapping 08/12/2024: On August 12, 2024, a 90-minute in-home assistive technology assessment was conducted to evaluate the effectiveness of the patient s newly delivered Group 3 power wheelchair and seating system, including a cushion, in distributing pressure to mitigate the risk of pressure injuries. The assessment included 60 minutes of assistive technology evaluation (CPT code 69634) and 30 minutes of self-care/home management training (CPT code 80315) focused on the use of the power wheelchair and seating system. Pressure Mapping Results Pressure mapping was performed using the Conservis system to assess pressure distribution across theseating surface. The results are summarized below: Contact Area: 94.14% of the cushion surface was in contact, indicating good overall coverage. Sensing Points (selected data): Notable pressure points: 121, 104, 122, 141, 159, 125, 129, 17 mmHg. Total sensing points: 1,024. Quadrant Analysis: Quadrant 1 (Right Distal Pelvis): Average Pressure: 41.7 mmHg Maximum Pressure: 129.0 mmHg Quadrant 2 (Left Distal Pelvis): Average Pressure: 29.5 mmHg Maximum Pressure: 98.0 mmHg Quadrant 3 (Right Proximal Pelvis): Average Pressure: 69.7 mmHg Maximum Pressure: 132.0 mmHg Quadrant 4 (Left Proximal Pelvis): Average Pressure: 42.4 mmHg Maximum Pressure: 122.0 mmHg Assessment Findings The pressure mapping data indicates that the seating system and cushion provide adequate contact area (94.14%), which supports effective weight distribution. However, elevated maximum pressures were observed, particularly in Quadrant 3 (right proximal pelvis, 132.0 mmHg) and Quadrant 1 (right distal pelvis, 129.0 mmHg). These values exceed the general threshold of 100 mmHg for prolonged sitting, which may increase the risk of pressure injury in these areas, especially given the patient s C4 AISB spinal cord injury and limited sensation. The spastic tetraplegia further complicates repositioning, emphasizing the need for optimized pressure relief strategies. The average pressures across all quadrants (ranging from 29.5 to 69.7 mmHg) are within acceptable ranges for short-term sitting, but the high maximum pressures suggest localized areas of concern thatrequire intervention. The patient demonstrated appropriate use of the Group 3 power wheelchair s [id number] and recline functions, which can be leveraged for pressure relief. Training was providedon these features to ensure proper and consistent use. Treatment Plan Seating System Adjustments: Recommend slight modifications to the cushion, such as adding a gel or air insert under the right proximal and distal pelvis to redistribute pressure away from high-pressure zones (Quadrants 1 and 3). Verify the backrest and seat angle alignment to ensure optimal pelvic positioning, reducing pressure on the proximal pelvis. Schedule a follow-up pressure mapping session within 2 weeks to evaluate the effectiveness of theseadjustments. Pressure Relief Protocol: Instruct the patient and caregivers to perform qwkh-qj-yrjqk maneuvers (minimum 30-degree tilt) every 30 minutes for at least 2 minutes to relieve pressure. Utilize the power wheelchair s recline function for additional pressure redistribution during prolonged sitting, ensuring the recline is performed gradually to avoid shear forces. Education and Training: Provide additional training (CPT code 26283) on the safe and effective use of the power wheelchair s positioning features, emphasizing the importance of consistent pressure relief. Educate caregivers on skin inspection techniques to monitor for early signs of pressure injury, particularly in the right pelvic regions. Review proper transfer techniques to minimize shear forces during transitions to and from the wheelchair. Ongoing Monitoring: Recommend a home health aide or occupational therapist visit biweekly for the next month to reinforce training and monitor skin integrity. Coordinate with the patient s primary care provider to ensure any signs of skin breakdown are addressed promptly. Summary The in-home assessment confirmed that the Group 3 power wheelchair and seating system provide a solid foundation for pressure distribution, with a high contact area (94.14%). However, localized high-pressure areas in the right pelvis (Quadrants 1 and 3) necessitate minor cushion adjustments and a structured pressure relief protocol. The patient and caregivers were trained on using the wheelchair s features and monitoring skin health. Follow-up is critical to ensure the interventions effectivelyreduce pressure injury risk and support the patient s long-term mobility and safety. Risks and benefits discussed with patient and/or support persons. Patient and/or support persons verbalize agreement with the treatment plan of care. This evaluation was conducted by the wheelchair clinic team at [facility], which has nofinancial obligation with any durable medical equipment supplier. PLAN OF CARE: Pt to be seen 1-2 times further in clinic or home after receiving head array for training and fitting. Patient is agreement with treatment plan. GOALS: - Increase patient's time out of bed to minimize health risks - Decrease occurrence/risk of pressure sore within mobility base - Obtain functional position within wheelchair to decrease risk of/progression of deformity - Achieve highest level of independence with MRADL's using equipment. - Achieve independent pressure relief - Demonstrate knowledge and use of all equipment components - Demonstrate, or direct caregivers, to properly care for equipment - Demonstrate, or direct caregivers, to charge batteries if applicable - Demonstrate, or direct caregivers, to manage accessories for safe transfers - Demonstrate, or direct caregivers, to identify red flags associated with equipment deterioration or malfunction and need for vendor repair initiation. - Report positive changes to selected outcome measure(s) >/= MCID (Minimally Clinically Important Difference) to display satisfaction with MRADL performance associated with mobility device Delivery of recommended equipment, final adjustments and education into proper operating techniqueswill occur in the clinic. Risks and benefits discussed with patient and caregivers (if present). Plan discussed with patient and family members and agreed upon. This evaluation was conducted by the wheelchair clinic team at [facility], which has no financial obligation with any durable medical equipment supplier. Start Time: 1015 Stop Time: 1145 Total Treatment Minutes: 90 Timed Code Treatments by Procedure: PT Test And Measurement ASSISTIVE TECHNOLOGY ASSESSMENT: 60 PT Therapeutic Procedures Self Care/Home Management (ADLs) Time Entry: 30 Total Timed Code Treatment Minutes: minutes Un-Timed Code Treatments by Procedure: 0 Total Un-Timed Code Treatment Minutes: minutes Kaleigh Frank PT, DPT, [facility] LICENSE #: [id number] DATE: 08/12/2024 documented in this [id number] NotePHYSICAL THERAPY OUTPATIENT NEUROLOGICAL PROGRESS NOTE Visit Number: Referring Provider: Daquan Fiore III, MD Diagnosis: Injury of cervical spinal cord, initial encounter ([facility]) [S14.109A] C4 complete (per notes) Onset Date: 2023 Mindi Hanson Trial Consultant: [email or web address] [facility] [phone] Precautions: micro-pacer (no stim above waist) Authorized visits: 14 Identification was verified by patient verbalizing his name and date of . Interpretor: non required Joey = Son = Kendall Payor: SKY - PPO/POS / Plan: [employer] OPEN ACCESS / Product Type: PPO Identification was verified by patient verbalizing his name and date of . SUBJECTIVE: patient arrives with new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 unspecified [facility]* Diagnosis Tetraplegia (HCC)- Primary Quadriplegia, unspecified [facility]* Diagnosis Impaired functional mobility, balance, and endurance- Primary Neck pain Cervicalgia Impaired functional mobility, balance, and endurance- Primary Neck pain Cervicalgia [facility]* Diagnosis Neurogenic bladder Neurogenic bladder, NOS Impaired functional mobility, balance, and endurance- Primary Neck pain Cervicalgia [facility]* Diagnosis Pacemaker- Primary Cardiac pacemaker in situ Sinus node dysfunction (HCC) Sinoatrial node dysfunction Impaired functional mobility, balance, and endurance- Primary Neck pain Cervicalgia [facility]* Diagnosis Pacemaker- Primary Cardiac pacemaker in situ H/O cardiac arrest Impaired functional mobility, balance, and endurance- Primary Neck pain Cervicalgia Impaired functional mobility, balance, and endurance- Primary Neck pain Cervicalgia [facility]* Diagnosis Impaired functional mobility, balance, and endurance Injury of cervical spinal cord, initial encounter (HCC) Neck pain Cervicalgia Impaired functional mobility, balance, and endurance- Primary Neck pain Cervicalgia [facility]* Diagnosis Impaired functional mobility, balance, and endurance- Primary Neck pain Cervicalgia Tetraplegia (HCC) Quadriplegia, unspecified Impaired functional mobility, balance, and endurance- Primary Neck pain Cervicalgia [facility]* Diagnosis Tetraplegia (HCC)- Primary Quadriplegia, unspecified Impaired functional mobility, balance, and endurance- Primary Neck pain Cervicalgia [facility]* Diagnosis Impaired functional mobility, balance, and endurance- Primary Neck pain Cervicalgia Tetraplegia (HCC) Quadriplegia, unspecified Tetraplegia (HCC)- Primary Quadriplegia, unspecified Muscle spasticity Spasm of muscle Urinary retention Retention of urine, unspecified Neurogenic bladder Neurogenic bladder, NOS Neurogenic bowel Recurrent UTI Urinary tract infection, site not specified 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) Quadriplegia, unspecified Impaired functional mobility, balance, and endurance- Primary Neck pain Cervicalgia [facility]* Diagnosis Impaired functional mobility, balance, and endurance- Primary Neck pain Cervicalgia Tetraplegia (HCC) Quadriplegia, unspecified Tetraplegia (HCC)- Primary Quadriplegia, unspecified Muscle spasticity Spasm of muscle Urinary retention Retention of urine, unspecified Neurogenic bladder Neurogenic bladder, NOS Neurogenic bowel Recurrent UTI Urinary tract infection, site not specified 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) Quadriplegia, unspecified Impaired functional mobility, balance, and endurance- Primary Neck pain Cervicalgia [facility]* Diagnosis Spastic tetraplegia (HCC)- Primary Quadriplegia, unspecified Muscle spasticity Spasm of muscle Urinary retention Retention of urine, unspecified Neurogenic bladder Neurogenic bladder, NOS Neurogenic bowel Recurrent UTI Urinary tract infection, site not specified 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) Impaired functional mobility, balance, and endurance- Primary Neck pain Cervicalgia [facility]* Diagnosis Vitamin D deficiency disease- Primary Unspecified vitamin D deficiency Impaired functional mobility, balance, and endurance- Primary Neck pain Cervicalgia [facility]* Diagnosis Spastic tetraplegia (HCC)- Primary Quadriplegia, unspecified Muscle spasticity Spasm of muscle Impaired functional mobility, balance, and endurance- Primary Neck pain Cervicalgia [facility]narrative)No reason for referral information availableWBlanchard Valley Health System Work Phone: Reason for visit Narrative* Service Level Authorization (Routine) - Pending Review Specialty Diagnoses / Procedures Referred By Contac t Referred To Contact Diagnoses Tetraplegia (HCC) Procedures PT EVAL LOW COMPLEX 20 MIN PT EVAL MOD COMPLEX 30 MIN PT EVAL HIGH COMPLEX 45 MIN OT EVAL LOW COMPLEX 30 MIN OT EVAL MOD COMPLEX 45 MIN OT EVAL HIGH COMPLEX 60 MIN Cathy Narayanan, OTR/L [address] [facility] [address] [place] [facility] [address] [place] [address] Phone: tel: Referral ID Status Reason Start Date Expiration Date V isits Requested Visits Authorized [id number] Pending Review 04/26/2024 04/26/2025 4 4 [facility]* Service Level Authorization (Routine) - Pending Review Specialty Diagnoses / Procedures Referred By Contac t Referred To Contact Diagnoses Tetraplegia (HCC) Procedures PT EVAL LOW COMPLEX 20 MIN PT EVAL MOD COMPLEX 30 MIN PT EVAL HIGH COMPLEX 45 MIN OT EVAL LOW COMPLEX 30 MIN OT EVAL MOD COMPLEX 45 MIN OT EVAL HIGH COMPLEX 60 MIN Cathy Narayanan, OTR/L [address] [facility] [address] [place] [id number] [facility] [address] [place] [address] Phone: tel: Referral ID Status Reason Start Date Expiration Date V isits Requested Visits Authorized [id number] Pending Review 04/26/2024 04/26/2025 4 4 [facility]* Service Level Authorization (Routine) - Authorized Specialty Diagnoses / Procedures Referred By Contac t Referred To Contact Cardiology Diagnoses Hypertension, unspecified type Daquan Fiore III, MD [address] [place] [id number] Phone: tel: S CARDIOLOGY HV [address] [place] [address] Phone: tel: Referral ID Status Reason Start Date Expiration Date V isits Requested Visits Authorized [id number] Authorized 03/30/2024 03/30/2025 3 3 [facility]* Service Level Authorization (Routine) - Closed Specialty Diagnoses / Procedures Referred By Contact Referred To Contact Physical Medicine & Rehab/PM&R Diagnoses Tetraplegia (HCC) Cathy Narayanan, OTR/L [address] [place] [address] [place] [address] [facility] [address] [place] [id number] Phone: tel: Referral ID Status Reason Start Date Expiration Date Visits Re quested Visits Authorized [id number] Closed 04/26/2024 04/26/2025 1 1 [facility]* Diagnostic X-Ray (Routine) - Closed Specialty Diagnoses / Procedures Referred By Contac t Referred To Contact Radiology Diagnoses Neurogenic bladder Procedures US KIDNEY+BLADDER Cristopher Walker MD [address] [place] [id number] Phone: tel: fax: [facility] [address] [place] [address] Phone: tel: Referral ID Status Reason Start Date Expiration Date Visits Re quested Visits Authorized [id number] Closed 04/09/2024 04/09/2025 1 1 [facility] Summary Purpose Family History No Family History Records Found Relationship Condition Age at Onset Recorded Date/T corby Unknown Family History?No pe rtinent history Unknown February 04, 2017 5:59pm Family History?No pe rtinent history Unknown February 04, 2017 5:59pm Relationship Condition Age at Onset Recorded Date/T corby Unknown Family History?No pe rtinent history Unknown February 04, 2017 6:59pm Family History?No pe rtinent history Unknown February 04, 2017 6:59pm Advance Directives No Advanced Directives Records Found Advance Directive Response Recorded Date/ Time Living Will No April 08 12:09am Power of Motor Tune Up Specialist No 2021 12:09am Documents on File Type Date Recorded 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 Formal Expl anation Advance Directives and Living Will 12/29/2023 2:34 PM YES, COPY NOT ON SORAIDA E Date Activated Date Inactivated Comments 01/16/2024 1:16 PM 02/18/2024 4:08 PM Date Activated Date Inactivated Comments 01/15/2024 2:18 PM 01/16/2024 1:16 PM Date Activated Date Inactivated Comments 01/13/2024 2:55 PM 01/15/2024 2:17 PM Date Activated Date Inactivated Comments 01/13/2024 1:24 PM 01/13/2024 2:55 PM Date Activated Date Inactivated Comments 12/31/2023 7:43 AM 01/13/2024 1:24 PM Documents on File Type Date Recorded 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 Formal Expl anation Advance Directives and Living Will 12/29/2023 2:34 PM YES, COPY NOT ON SORAIDA E Date Activated Date Inactivated Comments 01/16/2024 1:16 PM 02/18/2024 4:08 PM Date Activated Date Inactivated Comments 01/15/2024 2:18 PM 01/16/2024 1:16 PM Date Activated Date Inactivated Comments 01/13/2024 2:55 PM 01/15/2024 2:17 PM Date Activated Date Inactivated Comments 01/13/2024 1:24 PM 01/13/2024 2:55 PM Date Activated Date Inactivated Comments 12/31/2023 7:43 AM 01/13/2024 1:24 PM Date Activated Date Inactivated Comments 02/18/2024 3:18 PM Date Activated Date Inactivated Comments 05/10/2024 4:29 PM 05/10/2024 8:05 PM Date Activated Date Inactivated Comments 01/16/2024 1:16 PM 02/18/2024 4:08 PM Date Activated Date Inactivated Comments 01/15/2024 2:18 PM 01/16/2024 1:16 PM Date Activated Date Inactivated Comments 01/13/2024 2:55 PM 01/15/2024 2:17 PM Date Activated Date Inactivated Comments 01/13/2024 1:24 PM 01/13/2024 2:55 PM Documents on File Type Date Recorded 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 Formal Expl [facility] Power of Motor Tune Up Specialist 06/04/2024 4:50 PM Documents on File Type Date Recorded 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 Formal Expl [facility] Power of Motor Tune Up Specialist 06/04/2024 4:50 PM Chief Complaint and Reason for Visit Chief Complaint Admit Date wound September 21, 2024 10:45 am Reason for Visit Admit Date Other hereditary and idiopathic neuropat hies September 21, 2024 10:45am Non-pressure chronic ulcer o f other part of left foot with fat layer exposed September 21, 2024 10:45am Chief Complaint Admit Date wound September 21, 2024 10:45 am wound October 05, 2024 8:13a m Reason for Visit Admit Date Other hereditary and idiopathic neuropat hies September 21, 2024 10:45am Non-pressure chronic ulcer o f other part of left foot with fat layer exposed September 21, 2024 10:45am Cellulitis of left lower limb October 05, 2024 8:13am Other hereditary and idiopathic neuropat hies October 05, 2024 8:13am Non-pressure chronic ulcer o f other part of left foot with fat layer exposed October 05, 2024 8:13am Chief Complaint Admit Date wound September 21, 2024 10:45 am wound October 26, 2024 8:30 am Reason for Visit Admit Date Other hereditary and idiopathic neuropat hies September 21, 2024 10:45am Non-pressure chronic ulcer o f other part of left foot with fat layer exposed September 21, 2024 10:45am Cellulitis of left lower limb October 26, 2024 8:30am Other hereditary and idiopathic neuropat hies October 26, 2024 8:30am Non-pressure chronic ulcer o f other part of left foot with fat layer exposed October 26, 2024 8:30am Chief Complaint Admit Date wound September 21, 2024 10:45 am wound October 26, 2024 8:30 am wound- L FOOT ULCER November 11, 2024 5:22 pm wound- L FOOT ULCER November 24, 2024 9:15 am Reason for Visit Admit Date Other hereditary and idiopathic neuropat hies September 21, 2024 10:45am Non-pressure chronic ulcer o f other part of left foot with fat layer exposed September 21, 2024 10:45am Cellulitis of left lower limb October 26, 2024 8:30am Other hereditary and idiopathic neuropat hies October 26, 2024 8:30am Non-pressure chronic ulcer o f other part of left foot with fat layer exposed October 26, 2024 8:30am Cellulitis of left lower limb November 24, 2024 9:15am Other hereditary and idiopathic neuropat hies November 24, 2024 9:15am 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 November 24, 2024 9:15am Chief Complaint Admit Date wound September 21, 2024 10:45 am wound October 26, 2024 8:30 am wound- L FOOT ULCER November 11, 2024 5:22 pm wound- L FOOT ULCER December 01, 2024 1:15 pm Reason for Visit Admit Date Other hereditary and idiopathic neuropat hies September 21, 2024 10:45am Non-pressure chronic ulcer o f other part of left foot with fat layer exposed September 21, 2024 10:45am Cellulitis of left lower limb October 26, 2024 8:30am Other hereditary and idiopathic neuropat hies October 26, 2024 8:30am Non-pressure chronic ulcer o f other part of left foot with fat layer exposed October 26, 2024 8:30am Cellulitis of left lower limb December 01, 2024 1:15pm Other hereditary and idiopathic neuropat hies December 01, 2024 1:15pm 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 December 01, 2024 1:15pm Chief Complaint Admit Date wound September 21, 2024 10:45 am wound October 26, 2024 8:30 am wound- L FOOT ULCER November 11, 2024 5:22 pm wound- L FOOT ULCER December 01, 2024 1:15 pm wound- L FOOT ULCER December 29, 2024 9: 00am Reason for Visit Admit Date Other hereditary and idiopathic neuropat hies September 21, 2024 10:45am Non-pressure chronic ulcer o f other part of left foot with fat layer exposed September 21, 2024 10:45am Cellulitis of left lower limb October 26, 2024 8:30am Other hereditary and idiopathic neuropat hies October 26, 2024 8:30am Non-pressure chronic ulcer o f other part of left foot with fat layer exposed October 26, 2024 8:30am Cellulitis of left lower limb December 01, 2024 1:15pm Other hereditary and idiopathic neuropat hies December 01, 2024 1:15pm 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 December 01, 2024 1:15pm Other hereditary and idiopathic neuropat hies December 29, 2024 9:00am Non-pressure chronic ulcer o f other part of left foot with fat layer exposed December 29, 2024 9:00am 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 December 29, 2024 9:00am 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 December 29, 2024 9:00am Chief Complaint Admit Date wound October 26, 2024 8:30 am wound- L FOOT ULCER November 11, 2024 5:22 pm wound- L FOOT ULCER December 01, 2024 1:15 pm wound- L FOOT ULCER December 29, 2024 9: 00am wound- L FOOT ULCER January 26, 2025 9:45am wound- L FOOT ULCER February 02, 2025 11 :25am Reason for Visit Admit Date Cellulitis of left lower limb October 26, 2024 8:30am Other hereditary and idiopathic neuropat hies October 26, 2024 8:30am Non-pressure chronic ulcer o f other part of left foot with fat layer exposed October 26, 2024 8:30am Cellulitis of left lower limb December 01, 2024 1:15pm Other hereditary and idiopathic neuropat hies December 01, 2024 1:15pm 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 December 01, 2024 1:15pm Other hereditary and idiopathic neuropat hies December 29, 2024 9:00am Non-pressure chronic ulcer o f other part of left foot with fat layer exposed December 29, 2024 9:00am 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 December 29, 2024 9:00am 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 December 29, 2024 9:00am Other hereditary and idiopathic neuropat hies January 26, 2025 9:45am 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 January 26, 2025 9:45am Other hereditary and idiopathic neuropat hies February 02, 2025 11:25am 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 February 02, 2025 11:25am Additional Source Comments (unrecognized sect ion and content) No Status Records FoundNo Status Records FoundNo Status Records FoundNo Status Records FoundNo Status Records FoundNo Status Records FoundNo Status Records Found INFORMATION SOURCE (unrecogn ized section and content) DATE CREATED AUTHOR 10/28/2017 [facility] DATE CREATED AUTHOR AUTHOR'S ORGANIZ ATION 04/05/2024 [facility] DATE CREATED AUTHOR AUTHOR'S ORGANIZ ATION 04/28/2024 [facility] DATE CREATED AUTHOR AUTHOR'S ORGANIZ ATION 06/23/2024 [facility] DATE CREATED AUTHOR AUTHOR'S ORGANIZ ATION 08/17/2024 [facility] DATE CREATED AUTHOR AUTHOR'S ORGANIZ ATION 03/12/2025 [facility] DATE CREATED AUTHOR AUTHOR'S ORGANIZ ATION 03/15/2025 [facility] Care Teams (unrecognized sec tion and content) Team Status: Active Member Role Status Dates Dr. Markel Bell MD Family Provider Active Dr. Markel Bell MD Primary Care Provider Active Team Status: Inactive Member Role Status Dates Dr. Markel Bell MD Primary Care Provider, Attend [facility] Provider Active Meter Shop Superintendent Relationship Specialty Start Date End Date No, Physician [facility] PCP - General 12/29/23 Meter Shop Superintendent Relationship Specialty Start Date End Date Markel Bell MD [address] [facility] [address] [place], [place] [phone] PCP - General Endocrinology/Metabolism 04/05/24 Meter Shop Superintendent Relationship Specialty Start Date End Date Markel Bell MD [address] [place] [address] [address] [place] [phone] PCP - General Family Medicine 02/20/24 Meter Shop Superintendent Relationship Specialty Start Date End Date Cristopher Walker MD [address] [place] [address] Physician Urology 04/10/24 Meter Shop Superintendent Relationship Specialty Start Date End Date Markel Bell MD [address] [place] [address] [address] [place] [address] PCP - General Endocrinology/Metabolism 04/05/24 Meter Shop Superintendent Relationship Specialty Start Date End Date Cristopher Walker MD [address] [place] [address] Physician Urology 04/10/24 Meter Shop Superintendent Relationship Specialty Start Date End Date Cristopher Walker MD [address] [place] [address] Physician Urology 04/10/24 Meter Shop Superintendent Relationship Specialty Start Date End Date Cristopher Walker MD [address] [place] [address] Physician Urology 04/10/24 Meter Shop Superintendent Relationship Specialty Start Date End Date Cristopher Walker MD [address] [place] [address] Physician Urology 04/10/24 Meter Shop Superintendent Relationship Specialty Start Date End Date Markel Bell MD [address] [place] [address] [address] [place] [address] PCP - General Endocrinology/Metabolism 04/05/24 Meter Shop Superintendent Relationship Specialty Start Date End Date Markel Bell [address] [place] [address] [address] [place] [address] PCP - General Family Medicine 06/15/24 Cristopher Walker MD [address] [place] [address] 03187 Physician Urology 04/10/24 Maxine Gu, PT [address] [place] [address] 98915 Physical Therapist Physical Therapy 05/08/24 Cathy Narayanan, OTR/L [address] [place] [address] [place] [address] Occupational Therapist Occupational Therapy 05/08/24 Neelima Rockwell DO [address] [place] [address] Physician Physical Medicine & Rehab/PM&R 06/15/24 Sen Garcia MD [address] [place] [address] 03151 Fellow Spinal Cord Injury 06/15/24 Darnell Xiong MD [address] [place] [address] 48772 Physician Cardiology 07/03/24 Irene Dominguez, PT [address] [place] [address] 26034 Physical Therapist Physical Therapy 08/07/24 Meter Shop Superintendent Relationship Specialty Start Date End Date Markel Bell [address] [facility] [address] [place], [place] [address] PCP - General Family Medicine 06/15/24 Cristopher Walker MD [address] [place] [address] 68405 Physician Urology 04/10/24 Maxine Gu, PT [address] [place] [address] 50507 Physical Therapist Physical Therapy 05/08/24 Cathy Narayanan, OTR/L [address] [place] [address] 49002 Occupational Therapist Occupational Therapy 05/08/24 Neelima Rockwell DO [address] [place] [address] Physician Physical Medicine & Rehab/PM&R 06/15/24 Sen Garcia MD [address] [place] [address] 98309 Fellow Spinal Cord Injury 06/15/24 Darnell Xiong MD [address] [place] [address] 04806 Physician Cardiology 07/03/24 Irene Dominguez, PT [address] [place] [address] 09145 Physical Therapist Physical Therapy 08/07/24 Meter Shop Superintendent Relationship Specialty Start Date End Date Markel Bell [address] [address] PCP - General Family Medicine 06/15/24 Cristopher Walker MD [address] [place] [address] 82267 Physician Urology 04/10/24 Maxine Gu, PT [address] [place] [address] 90842 Physical Therapist Physical Therapy 05/08/24 Cathy Narayanan, OTR/L [address] [place] [address] [place] [address] Occupational Therapist Occupational Therapy 05/08/24 Neeliam Rockwell DO [address] [place] [address] Physician Physical Medicine & Rehab/PM&R 06/15/24 Sen Garcia MD [address] [place] [address] 46583 Fellow Spinal Cord Injury 06/15/24 Darnell Xiong MD [address] [place] [address] 58334 Physician Cardiology 07/03/24 Irene Dominguez, PT [address] [place], [place] [phone] Physical Therapist Physical Therapy 08/07/24 Cindy Pastor, EloyD Pharmacist Pharmacology and Toxicology 08/20/24 Emily Maynard CPhT [address] [place] [address] 33489 Clear [employer] Tech Pharmacology and Toxicology 08/20/24 Nayana Gifford Medication Activities Director [employer]outing Pharmacology and Toxicology 08/20/24 Meter Shop Superintendent Relationship Specialty Start Date End Date Markel Bell [address] [address] PCP - General Family Medicine 06/15/24 Cristopher Walker MD [address] [place] [address] 67365 Physician Urology 04/10/24 Maxine Gu, PT [address] [place] [address] 52972 Physical Therapist Physical Therapy 05/08/24 Cathy Narayanan, OTR/L [address] [place] [address] 72797 Occupational Therapist Occupational Therapy 05/08/24 Neelima Rockwell DO [address] [place] [address] Physician Physical Medicine & Rehab/PM&R 06/15/24 Sen Garcia MD [address] [place] [address] 66572 Fellow Spinal Cord Injury 06/15/24 Darnell Xiong MD [address] [place] [address] 71353 Physician Cardiology 07/03/24 Irene Dominguez, PT [address] [place] [address] 28980 Physical Therapist Physical Therapy 08/07/24 Cindy Pastor, PharmD Pharmacist Pharmacology and Toxicology 08/20/24 Emily Maynard CPhT [address] [place] [address] 26694 Clear EntraTympanic Tech Pharmacology and Toxicology 08/20/24 Nayana Gifford Medication Activities Director [employer]outing Pharmacology and Toxicology 08/20/24 Meter Shop Superintendent Relationship Specialty Start Date End Date Markel Bell [address] [address] PCP - General Family Medicine 06/15/24 Cristopher Walker MD [address] [place] [address] 89443 Physician Urology 04/10/24 Maxine Gu, PT [address] [place] [address] 78920 Physical Therapist Physical Therapy 05/08/24 Cathy Narayanan, OTR/L [address] [place] [address] [place] [address] Occupational Therapist Occupational Therapy 05/08/24 Neelima Rockwell DO [address] [place] [address] Physician Physical Medicine & Rehab/PM&R 06/15/24 Sen Garcia MD [address] [place] [address] 87219 Fellow Spinal Cord Injury 06/15/24 Darnell Xiong MD [address] [place] [address] 35701 Physician Cardiology 07/03/24 Irene Dominguez, PT [address] [place], [place] [phone] Physical Therapist Physical Therapy 08/07/24 Cindy Pastor, PharmD Pharmacist Pharmacology and Toxicology 08/20/24 Emily Maynard CPhT [address] [place] [address] 61180 Clear Entra[employer] Tech Pharmacology and Toxicology 08/20/24 Nayana Gifford Medication Activities Director Scouting Pharmacology and Toxicology 08/20/24 Meter Shop Superintendent Relationship Specialty Start Date End Date Markel Bell [address] [address] PCP - General Family Medicine 06/15/24 Cristopher Walker MD [address] [place] [address] 47403 Physician Urology 04/10/24 Maxine Gu, PT [address] [place] [address] 23078 Physical Therapist Physical Therapy 05/08/24 Cathy Narayanan, OTR/L [address] [place] [address] [place] [address] Occupational Therapist Occupational Therapy 05/08/24 Neelima Rockwell DO [address] [place] [address] Physician Physical Medicine & Rehab/PM&R 06/15/24 Sen Garcia MD [address] [place] [address] 40482 Fellow Spinal Cord Injury 06/15/24 Darnell Xiong MD [address] [place] [address] 35113 Physician Cardiology 07/03/24 Irene Dominguez, PT [address] [place] [address] Physical Therapist Physical Therapy 08/07/24 Cindy Pastor, EloyD Pharmacist Pharmacology and Toxicology 08/20/24 Emily Maynard CPhT [address] [place] [address] 11923 Clear EntraTympanic Tech Pharmacology and Toxicology 08/20/24 Nayana Gifford Medication Activities Director Scouting Pharmacology and Toxicology 08/20/24 Meter Shop Superintendent Relationship Specialty Start Date End Date Markel Bell [address] [address] PCP - General Family Medicine 06/15/24 Cristopher Walker MD [address] [place] [address] 16509 Physician Urology 04/10/24 Maxine Gu, PT [address] [place] [address] 27625 Physical Therapist Physical Therapy 05/08/24 Cathy Narayanan, OTR/L [address] [place] [address] Occupational Therapist Occupational Therapy 05/08/24 Neelima Rockwell DO [address] [place] [address] Physician Physical Medicine & Rehab/PM&R 06/15/24 Sen Garcia MD [address] [place] [address] 62158 Fellow Spinal Cord Injury 06/15/24 Darnell Xiong MD [address] [place] [address] 51361 Physician Cardiology 07/03/24 Irene Dominguez, PT [address] [place] [address] 63688 Physical Therapist Physical Therapy 08/07/24 Meter Shop Superintendent Relationship Specialty Start Date End Date Markel Bell [address] [address] PCP - General Family Medicine 06/15/24 Cristopher Walker MD [address] [place] [address] 44295 Physician Urology 04/10/24 Maxine Gu, PT [address] [place] [address] 62391 Physical Therapist Physical Therapy 05/08/24 Cathy Narayanan, OTR/L [address] [place] [address] Occupational Therapist Occupational Therapy 05/08/24 Neelima Rockwell DO [address] [place] [address] Physician Physical Medicine & Rehab/PM&R 06/15/24 Sen Garcia MD [address] [place] [address] 92100 Fellow Spinal Cord Injury 06/15/24 Darnell Xiong MD [address] [place] [address] 49894 Physician Cardiology 07/03/24 Irene Dominguez, PT [address] [place] [address] 20283 Physical Therapist Physical Therapy 08/07/24 Cindy Pastor, PharmD Pharmacist Pharmacology and Toxicology 08/20/24 Emily Maynard CPhT [address] [place] [address] 58988 Clear EntraTympanic Tech Pharmacology and Toxicology 08/20/24 Nayana Gifford Medication Activities Director Scouting Pharmacology and Toxicology 08/20/24 Meter Shop Superintendent Relationship Specialty Start Date End Date Markel Bell [address] [address] PCP - General Family Medicine 06/15/24 Cristopher Walker MD [address] [place] [address] 04131 Physician Urology 04/10/24 Maxine Gu, PT [address] [place] [address] 88676 Physical Therapist Physical Therapy 05/08/24 Cathy Narayanan, OTR/L [address] [place] [address] [place] [address] Occupational Therapist Occupational Therapy 05/08/24 Neelima Rockwell DO [address] [place] [address] Physician Physical Medicine & Rehab/PM&R 06/15/24 Sen Garcia MD [address] [place] [address] 22029 Fellow Spinal Cord Injury 06/15/24 Darnell Xiong MD [address] [place] [address] Physician Cardiology 07/03/24 Irene Dominguez, PT [address] [place] [address] Physical Therapist Physical Therapy 08/07/24 Cindy Pastor, EloyD Pharmacist Pharmacology and Toxicology 08/20/24 Emily Maynard CPhT [address] [place], [place] [phone] [employer] Pharmacology and Toxicology 08/20/24 Nayana Gifford Medication Activities Director Scouting Pharmacology and Toxicology 08/20/24 Kaleigh Frank, PT [address] [place] [address] Physical Therapist Physical Therapy 09/04/24 Shruthi Sheffield MD [address] [place] [address] Physician Plastic Surgery 09/04/24 Ignacio Bonilla MD [address] [place] [phone] Physician Orthopaedic Hand Service 09/04/24 Meter Shop Superintendent Relationship Specialty Start Date End Date Markel Bell [address] [facility] [address] [place] [address] PCP - General Family Medicine 06/15/24 Cristopher Walker MD [address] [place] [address] 77198 Physician Urology 04/10/24 Maxine Gu, PT [address] [place] [address] 94240 Physical Therapist Physical Therapy 05/08/24 Cathy Narayanan, OTR/L [address] [place] [address] [address] [place] [address] Occupational Therapist Occupational Therapy 05/08/24 Neleima Rockwell DO [address] [place] [address] Physician Physical Medicine & Rehab/PM&R 06/15/24 Sen Garcia MD [address] [place] [address] Fellow Spinal Cord Injury 06/15/24 Darnell Xiong MD [address] [place] [address] 26963 Physician Cardiology 07/03/24 Irene Dominguez, PT [address] [place] [address] 44397 Physical Therapist Physical Therapy 08/07/24 Cindy Pastor, PharmD Pharmacist Pharmacology and Toxicology 08/20/24 Emily Maynard CPhT [address] [place] [address] 59513 Clear Bag Tech Pharmacology and Toxicology 08/20/24 Nayana Gifford Medication Activities Director Scouting Pharmacology and Toxicology 08/20/24 Kaleigh Frank, PT [address] [place] [address] [address] [place] [address] Physical Therapist Physical Therapy 09/04/24 Shruthi Sheffield MD [address] [place] [address] 39998 Physician Plastic Surgery 09/04/24 Ignacio Bonilla MD [address] [place] [phone] Physician Orthopaedic Hand Service 09/04/24 Meter Shop Superintendent Relationship Specialty Start Date End Date Markel Bell [address] [facility] [address] [place] [address] PCP - General Family Medicine 06/15/24 Cristopher Walker MD [address] [place] [address] 90691 Physician Urology 04/10/24 Maxine Gu, PT [address] [place] [address] 39383 Physical Therapist Physical Therapy 05/08/24 Cathy Narayanan, OTR/L [address] [place] [address] [place] [address] Occupational Therapist Occupational Therapy 05/08/24 Neelima Rockwell DO [address] [place] [address] Physician Physical Medicine & Rehab/PM&R 06/15/24 Sen Garcia MD [address] [place] [address] 02589 Fellow Spinal Cord Injury 06/15/24 Darnell Xiong MD [address] [place] [address] 42547 Physician Cardiology 07/03/24 Irene Dominguez, PT [address] [place] [address] 75402 Physical Therapist Physical Therapy 08/07/24 Cindy Pastor, EloyD Pharmacist Pharmacology and Toxicology 08/20/24 Emily Maynard CPhT [address] [place] [address] 13469 Clear EntraTympanic Tech Pharmacology and Toxicology 08/20/24 Nayana Gifford Medication Activities Director Scouting Pharmacology and Toxicology 08/20/24 Kaleigh Frank, PT [address] [place] [address] [address] [place] [address] Physical Therapist Physical Therapy 09/04/24 Shruthi Sheffield MD [address] [place] [address] Physician Plastic Surgery 09/04/24 Ignacio Bonilla MD [address] [place] [phone] Physician Orthopaedic Hand Service 09/04/24 Meter Shop Superintendent Relationship Specialty Start Date End Date Markel Bell Joy[address] Mac [address] [address] PCP - General Family Medicine 06/15/24 Cristopher Walker MD [address] [place], [place] [phone] Physician Urology 04/10/24 Maxine Gu, PT [address] [place], [place] [phone] Physical Therapist Physical Therapy 05/08/24 Cathy Narayanan, OTR/L [address] [place] [address] [place] [address] Occupational Therapist Occupational Therapy 05/08/24 Neelima Rockwell DO [address] [place] [address] Physician Physical Medicine & Rehab/PM&R 06/15/24 Sen Garcia MD [address] [place] [address] Fellow Spinal Cord Injury 06/15/24 Darnell Xiong MD [address] [place] [address] Physician Cardiology 07/03/24 Irene Dominguez, PT [address] [place] [address] Physical Therapist Physical Therapy 08/07/24 Cindy Pastor, PharmD Pharmacist Pharmacology and Toxicology 08/20/24 Emily Maynard CPhT [address] [place], [place] [phone] Clear [employer]ym[employer] Tech Pharmacology and Toxicology 08/20/24 Nayana Gifford Medication Activities Director Scouting Pharmacology and Toxicology 08/20/24 Kaleigh Frank, PT [address] [place] [address] Physical Therapist Physical Therapy 09/04/24 Shruthi Sheffield MD [address] [place] [address] Physician Plastic Surgery 09/04/24 Ignacio Bonilla MD [address] [place] [phone] Physician Orthopaedic Hand Service 09/04/24 Meter Shop Superintendent Relationship Specialty Start Date End Date Markel Bell [address] [facility] [address] [place] [address] PCP - General Family Medicine 06/15/24 Cristopher Walker MD [address] [place] [address] Physician Urology 04/10/24 Maxine Gu, PT [address] [place], [place] [phone] Physical Therapist Physical Therapy 05/08/24 Cathy Narayanan, OTR/L [address] [place] [address] [address] [place] [address] Occupational Therapist Occupational Therapy 05/08/24 Neelima Rockwell DO [address] [place] [address] Physician Physical Medicine & Rehab/PM&R 06/15/24 Sen Garcia MD [address] [place] [address] 80814 Fellow Spinal Cord Injury 06/15/24 Darnell Xiong MD [address] [place], [place] [phone] Physician Cardiology 07/03/24 Irene Dominguez, PT [address] [place], [place] [phone] Physical Therapist Physical Therapy 08/07/24 Cindy Pastor, PharmD Pharmacist Pharmacology and Toxicology 08/20/24 09/20/24 Emily Maynard CPhT [address] [place], [place] [phone] [employer] Pharmacology and Toxicology 08/20/24 09/20/24 Nayana Gifford Medication Activities Director Scouting Pharmacology and Toxicology 08/20/24 09/20/24 Kaleigh Frank, PT [address] [place] [address] [address] [place] [address] Physical Therapist Physical Therapy 09/04/24 Shruthi Sheffield MD [address] [place] [address] 12234 Physician Plastic Surgery 09/04/24 Ignacio Bonilla MD [address] [place] [phone] Physician Orthopaedic Hand Service 09/04/24 Meter Shop Superintendent Relationship Specialty Start Date End Date Cristopher Walker MD [address] [place] [address] 52668 Physician Urology 04/10/24 Meter Shop Superintendent Relationship Specialty Start Date End Date Cristopher Walker MD [address] [place] [address] 17635 Physician Urology 04/10/24 Maxine Gu, PT [address] [place] [address] 15170 Physical Therapist Physical Therapy 05/08/24 Cathy Narayanan, OTR/L [address] [place] [address] [place] [address] Occupational Therapist Occupational Therapy 05/08/24 Meter Shop Superintendent Relationship Specialty Start Date End Date Markel Bell [address] [address]461 PCP - General Family Medicine 06/15/24 Cristopher Walker MD [address] [place] [address] 11629 Physician Urology 04/10/24 Maxine Gu, PT [address] [place] [address] 47169 Physical Therapist Physical Therapy 05/08/24 Cathy Narayanan, OTR/L [address] [place] [address] [place] [address] Occupational Therapist Occupational Therapy 05/08/24 Neelima Rockwell DO [address] [place] [address] Physician Physical Medicine & Rehab/PM&R 06/15/24 Sen Garcia MD [address] [place], [place] [phone] Fellow Spinal Cord Injury 06/15/24 Darnell Xiong MD [address] [place] [address] Physician Cardiology 07/03/24 Irene Dominguez, PT [address] [place] [address] Physical Therapist Physical Therapy 08/07/24 Kaleigh Frank, PT [address] [place] [address] Physical Therapist Physical Therapy 09/04/24 Shruthi Sheffield MD [address] [place], [place] [address] Physician Plastic Surgery 09/04/24 Ignacio Bonilla MD [address] [place] [phone] Physician Orthopaedic Hand Service 09/04/24 Team Status: Active Member Role Status Dates Dr. Markel Bell MD Primary Care Provider Active Team Status: Inactive Member Role Status Dates Dr. Markel Bell MD Primary Care Provider Active Start: August 26, 2024 End: August 26, 2024 Dr. Markel Bell MD Attending Provider Active Start: August 26, 2024 End: August 26, 2024 Dr. Markel Bell MD Referring Provider Active Start: August 26, 2024 End: August 26, 2024 Team Status: Inactive Member Role Status Dates Dr. Markel Bell MD Primary Care Provider Active Start: September 21, 2024 End: October 02, 2024 Dr. Makrel Bell MD Referring Provider Active Start: September 21, 2024 End: October 02, 2024 Dr. German Finney , DPM Attending Provider Active Start: September 21, 2024 End: October 02, 2024 Meter Shop Superintendent Relationship Specialty Start Date End Date Markel Bell [address] [facility] [address] [place] [address] PCP - General Family Medicine 06/15/24 Cristopher Walker MD [address] [place] [address] 81448 Physician Urology 04/10/24 Maxine Gu, PT [address] [place] [address] 43776 Physical Therapist Physical Therapy 05/08/24 Cathy Narayanan, OTR/L [address] [place] [address] 43674 Occupational Therapist Occupational Therapy 05/08/24 Neelima Rockwell DO [address] [place] [address] Physician Physical Medicine & Rehab/PM&R 06/15/24 Sen Garcia MD [address] [place] [address] 02409 Fellow Spinal Cord Injury 06/15/24 Darnell Xiong MD [address] [place] [address] 45663 Physician Cardiology 07/03/24 Irene Dominguez, PT [address] [place] [address] 92860 Physical Therapist Physical Therapy 08/07/24 Meter Shop Superintendent Relationship Specialty Start Date End Date Markel Bell [address] [facility] [address] [place] [address] PCP - General Family Medicine 06/15/24 Cristopher Walker MD [address] [place] [address] 90253 Physician Urology 04/10/24 Maxine Gu, PT [address] [place], [place] [phone] Physical Therapist Physical Therapy 05/08/24 Cathy Narayanan, OTR/L [address] [place] [address] [place] [address] Occupational Therapist Occupational Therapy 05/08/24 Neelima Rockwell DO [address] [place] [address] Physician Physical Medicine & Rehab/PM&R 06/15/24 Sen Garcia MD [address] [place], [place] [phone] Fellow Spinal Cord Injury 06/15/24 Darnell Xiong MD [address] [place] [address] 00504 Physician Cardiology 07/03/24 Irene Dominguez, PT [address] [place], [place] [phone] Physical Therapist Physical Therapy 08/07/24 Kaleigh Frank, PT [address] [place] [address] [place] [phone] Physical Therapist Physical Therapy 09/04/24 Shruthi Sheffield MD [address] [place] [address] 93627 Physician Plastic Surgery 09/04/24 Ignacio Bonilla MD [address] [place] [phone] Physician Orthopaedic Hand Service 09/04/24 Team Status: Active Member Role Status Dates Dr. Markel Bell MD Primary Care Provider Active Start: October 05, 2024 Dr. Markel Bell MD Referring Provider Active Start: October 05, 2024 Dr. German Finney DPM Attending Provider Active Start: October 05, 2024 Team Status: Inactive Member Role Status Dates Dr. Markel Bell MD Primary Care Provider Active Start: October 07, 2024 End: October 07, 2024 Dr. German Finney DPM Attending Provider Active Start: October 07, 2024 End: October 07, 2024 Dr. German Finney DPM Referring Provider Active Start: October 07, 2024 End: October 07, 2024 Meter Shop Superintendent Relationship Specialty Start Date End Date Markel eBll Joycelyn Mac [address] [phone] PCP - General Family Medicine 06/15/24 Cristopher Walker MD [address] [place] [address] 04260 Physician Urology 04/10/24 Maxine Gu PT [address] [place], [place] [phone] Physical Therapist Physical Therapy 05/08/24 Cathy Narayanan, OTR/L [address] [place] [address] [place] [address] Occupational Therapist Occupational Therapy 05/08/24 Neelima Rockwell DO [address] [place] [address] Physician Physical Medicine & Rehab/PM&R 06/15/24 Sen Garcia MD [address] [place] [address] 94214 Fellow Spinal Cord Injury 06/15/24 Darnell Xiong MD [address] [place] [address] Physician Cardiology 07/03/24 Irene Dominguez, PT [address] [place] [address] Physical Therapist Physical Therapy 08/07/24 Kaleigh Frank, PT [address] [place] [address] [place] [address] Physical Therapist Physical Therapy 09/04/24 Shruthi Sheffield MD [address] [place] [address] Physician Plastic Surgery 09/04/24 Ignacio Bonilla MD [address] [place], [place] [phone] Physician Orthopaedic Hand Service 09/04/24 Meter Shop Superintendent Relationship Specialty Start Date End Date Markel Bell Joycelyn Mac [address] [address] PCP - General Family Medicine 06/15/24 Cristopher Walker MD [address] [place], [place] [phone] Physician Urology 04/10/24 Maxine Gu, PT [address] [place], [place] [phone] Physical Therapist Physical Therapy 05/08/24 Cathy Narayanan, OTR/L [address] [place] [address] [place] [address] Occupational Therapist Occupational Therapy 05/08/24 Neelima Rockwell DO [address] [place] [address] Physician Physical Medicine & Rehab/PM&R 06/15/24 Sen Garcia MD [address] [place] [address] 19188 Fellow Spinal Cord Injury 06/15/24 Darnell Xiong MD [address] [place] [address] Physician Cardiology 07/03/24 Irene Dominguez, PT [address] [place] [address] Physical Therapist Physical Therapy 08/07/24 Kaleigh Frank, PT [address] [place] [address] Physical Therapist Physical Therapy 09/04/24 Shruthi Sheffield MD [address] [place] [address] 83036 Physician Plastic Surgery 09/04/24 Ignacio Bonilla MD [address] [place] [phone] Physician Orthopaedic Hand Service 09/04/24 Meter Shop Superintendent Relationship Specialty Start Date End Date Markel Bell Joycelyn Mac [address] [address] PCP - General Family Medicine 06/15/24 Cristopher Walker MD [address] [place] [address] 39092 Physician Urology 04/10/24 Maxine Gu, PT [address] [place] [address] 95356 Physical Therapist Physical Therapy 05/08/24 Cathy Narayanan, OTR/L [address] [place] [address] [place] [address] Occupational Therapist Occupational Therapy 05/08/24 Neelima Rockwell DO [address] [place] [address] Physician Physical Medicine & Rehab/PM&R 06/15/24 Sen Garcia MD [address] [place] [address] 14924 Fellow Spinal Cord Injury 06/15/24 Darnell Xiong MD [address] [place] [address] 28707 Physician Cardiology 07/03/24 Irene Dominguez, PT [address] [place] [address] Physical Therapist Physical Therapy 08/07/24 Kaleigh Frank, PT [address] [place] [address] [place] [address] Physical Therapist Physical Therapy 09/04/24 Shruthi Sheffield MD [address] [place] [address] 62608 Physician Plastic Surgery 09/04/24 Ignacio Bonilla MD [address] [place] [phone] Physician Orthopaedic Hand Service 09/04/24 Meter Shop Superintendent Relationship Specialty Start Date End Date Markel Bell [address] [facility] [address] [place] [address] PCP - General Family Medicine 06/15/24 Cristopher Walker MD [address] [place] [address] 28229 Physician Urology 04/10/24 Maxine Gu, PT [address] [place] [address] 61978 Physical Therapist Physical Therapy 05/08/24 Cathy Narayanan, OTR/L [address] [place] [address] [place] [address] Occupational Therapist Occupational Therapy 05/08/24 Neelima Rockwell DO [address] [place] [address] Physician Physical Medicine & Rehab/PM&R 06/15/24 Sen Garcia MD [address] [place] [address] 04371 Fellow Spinal Cord Injury 06/15/24 Darnell Xiong MD [address] [place] [address] 79738 Physician Cardiology 07/03/24 Irene Dominguez, PT [address] [place] [address] 59732 Physical Therapist Physical Therapy 08/07/24 Kaleigh Frank, PT [address] [place] [address] [place] [address] Physical Therapist Physical Therapy 09/04/24 Shruthi Sheffield MD [address] [place] [address] 07933 Physician Plastic Surgery 09/04/24 Ignacio Bonilla MD [address] [place] [phone] Physician Orthopaedic Hand Service 09/04/24 Meter Shop Superintendent Relationship Specialty Start Date End Date Markel Bell [address] [address] PCP - General Family Medicine 06/15/24 Cristopher Walker MD [address] [place] [address] 45884 Physician Urology 04/10/24 Maxine Gu, PT [address] [place] [address] 28427 Physical Therapist Physical Therapy 05/08/24 Cathy Narayanan, OTR/L [address] [place] [address] [place] [address] Occupational Therapist Occupational Therapy 05/08/24 Neelima Rockwell DO [address] [place] [address] Physician Physical Medicine & Rehab/PM&R 06/15/24 Sen Garcia MD [address] [place] [address] 63131 Fellow Spinal Cord Injury 06/15/24 Darnell Xiong MD [address] [place] [address] 70162 Physician Cardiology 07/03/24 Irene Dominguez, PT [address] [place] [address] 67440 Physical Therapist Physical Therapy 08/07/24 Kaleigh Frank, PT [address] [place] [address] [place] [address] Physical Therapist Physical Therapy 09/04/24 Shruthi Sheffield MD [address] [place] [address] 00006 Physician Plastic Surgery 09/04/24 Ignacio Bonilla MD [address] [place] [phone] Physician Orthopaedic Hand Service 09/04/24 Meter Shop Superintendent Relationship Specialty Start Date End Date ArabellaMarkel [address] [facility] [address] [place] [address] PCP - General Family Medicine 06/15/24 Cristopher Walker MD [address] [place] [address] Physician Urology 04/10/24 Maxine Gu, PT [address] [place], [place] [phone] Physical Therapist Physical Therapy 05/08/24 Cathy Narayanan, OTR/L [address] [place] [address] [place] [address] Occupational Therapist Occupational Therapy 05/08/24 Neelima Rockwell DO [address] [place] [address] Physician Physical Medicine & Rehab/PM&R 06/15/24 Sen Garcia MD [address] [place] [address] 52332 Fellow Spinal Cord Injury 06/15/24 Darnell Xiong MD [address] [place] [address] 85426 Physician Cardiology 07/03/24 Irene Dominguez, PT [address] [place] [address] 89209 Physical Therapist Physical Therapy 08/07/24 Kaleigh Frank, ERIN [address] [place] [address] 10638 Physical Therapist Physical Therapy 09/04/24 Shruthi Sheffield MD [address] [place] [address] 14216 Physician Plastic Surgery 09/04/24 Ignacio Bonilla MD [address] [place] [phone] Physician Orthopaedic Hand Service 09/04/24 Team Status: Active Member Role/Relationship Status Dates Dr. Markel Bell MD Primary Care Provider Active Team Status: Inactive Member Role/Relationship Status Dates Dr. Markel Bell MD Primary Care Provider Active Start: August 26, 2024 End: August 26, 2024 Dr. Markel Bell MD Attending Provider Active Start: August 26, 2024 End: August 26, 2024 Dr. Markel Bell MD Referring Provider Active Start: August 26, 2024 End: August 26, 2024 Team Status: Inactive Member Role/Relationship Status Dates Dr. Markel Bell MD Primary Care Provider Active Start: September 21, 2024 End: October 02, 2024 Dr. Markel Bell MD Referring Provider Active Start: September 21, 2024 End: October 02, 2024 Dr. German Finney DPM Attending Provider Active Start: September 21, 2024 End: October 02, 2024 Team Status: Inactive Member Role/Relationship Status Dates Dr. Markel Bell MD Primary Care Provider Active Start: October 07, 2024 End: October 07, 2024 Dr. German Finney DPM Attending Provider Active Start: October 07, 2024 End: October 07, 2024 Dr. German Finney DPM Referring Provider Active Start: October 07, 2024 End: October 07, 2024 Team Status: Inactive Member Role/Relationship Status Dates Dr. Markel Bell MD Primary Care Provider Active Start: October 26, 2024 End: November 01, 2024 Dr. Markel Bell MD Referring Provider Active Start: October 26, 2024 End: November 01, 2024 MARYCARMEN VickersM Attending Provider Active Start: October 26, 2024 End: November 01, 2024 Meter Shop Superintendent Relationship Specialty Start Date End Date Markel Bell [address] [facility] [address] [place] [address] PCP - General Family Medicine 06/15/24 Cristopher Walker MD [address] [place] [address] 21704 Physician Urology 04/10/24 Maxine Gu, PT [address] [place] [address] 18672 Physical Therapist Physical Therapy 05/08/24 Cathy Narayanan, OTR/L [address] [place] [address] [place] [address] Occupational Therapist Occupational Therapy 05/08/24 Neelima Rockwell DO [address] [place] [address] Physician Physical Medicine & Rehab/PM&R 06/15/24 Sen Garcia MD [address] [place] [address] 47946 Fellow Spinal Cord Injury 06/15/24 Darnell Xiong MD [address] [place] [address] 52898 Physician Cardiology 07/03/24 Irene Dominguez, PT [address] [place] [address] 34621 Physical Therapist Physical Therapy 08/07/24 Kaleigh Frnak, PT [address] [place] [address] [place] [address] Physical Therapist Physical Therapy 09/04/24 Shruthi Sheffield MD [address] [place] [address] 00992 Physician Plastic Surgery 09/04/24 Ignacio Bonilla MD [address] [place] [phone] Physician Orthopaedic Hand Service 09/04/24 Meter Shop Superintendent Relationship Specialty Start Date End Date Markel Bell Joy[address] [phone] PCP - General Family Medicine 06/15/24 Cristopher Walker MD [address] [place] [address] 72365 Physician Urology 04/10/24 Maxine Gu, ERIN [address] [place] [address] 45340 Physical Therapist Physical Therapy 05/08/24 Cathy Narayanan, OTR/L [address] [place] [address] [place] [address] Occupational Therapist Occupational Therapy 05/08/24 Neelima Rockwell DO [address] [place] [address] Physician Physical Medicine & Rehab/PM&R 06/15/24 Sen Garcia MD [address] [place] [address] 21379 Fellow Spinal Cord Injury 06/15/24 Darnell Xiong MD [address] [place] [address] 42766 Physician Cardiology 07/03/24 Irene Dominguez, PT [address] [place] [address] Physical Therapist Physical Therapy 08/07/24 Kaleigh Frank, PT [address] [place] [address] [place] [address] Physical Therapist Physical Therapy 09/04/24 Shruthi Sheffield MD [address] [place] [address] Physician Plastic Surgery 09/04/24 Ignacio Bonilla MD [address] [place] [phone] Physician Orthopaedic Hand Service 09/04/24 Meter Shop Superintendent Relationship Specialty Start Date End Date Markel Bell Joyc[address] [address] PCP - General Family Medicine 06/15/24 Cristopher Walker MD [address] [place] [address] Physician Urology 04/10/24 Maxine Gu, PT [address] [place] [address] Physical Therapist Physical Therapy 05/08/24 Cathy Narayanan, OTR/L [address] [place] [address] [place] [address] Occupational Therapist Occupational Therapy 05/08/24 Neelima Rockwell DO [address] [place] [address] Physician Physical Medicine & Rehab/PM&R 06/15/24 Sen Garcia MD [address] [place] [address] 11531 Fellow Spinal Cord Injury 06/15/24 Darnell Xiong MD [address] [place] [address] 11280 Physician Cardiology 07/03/24 Irene Dominguez, PT [address] [place], [place] [address] Physical Therapist Physical Therapy 08/07/24 Kaleigh Frank, PT [address] [place] [address] [place] [address] Physical Therapist Physical Therapy 09/04/24 Shruthi Sheffield MD [address] [place] [address] 86584 Physician Plastic Surgery 09/04/24 Ignacio Bonilla MD [address] [place] [phone] Physician Orthopaedic Hand Service 09/04/24 Meter Shop Superintendent Relationship Specialty Start Date End Date Markel Bell [address] [facility] [address] [place] [address] PCP - General Family Medicine 06/15/24 Cristopher Walker MD [address] [place] [address] 93939 Physician Urology 04/10/24 Maxine Gu, PT [address] [place] [address] 57228 Physical Therapist Physical Therapy 05/08/24 Cathy Narayanan, OTR/L [address] [place] [address] [place] [address] Occupational Therapist Occupational Therapy 05/08/24 Neelima Rockwell DO [address] [place] [address] Physician Physical Medicine & Rehab/PM&R 06/15/24 Sen Garcia MD [address] [place] [address] 52103 Fellow Spinal Cord Injury 06/15/24 Team Status: Active Member Role/Relationship Status Dates Dr. Markel Bell MD Primary Care Provider Active Start: November 11, 2024 Dr. Markel Bell MD Referring Provider Active Start: November 11, 2024 Dr. Les Shaikh DPM Other Provider Active St art: November 11, 2024 DAVID Hanson Attending Provider Active Star t: November 11, 2024 Team Status: Active Member Role/Relationship Status Dates Dr. Markel Bell MD Primary Care Provider Active Start: November 24, 2024 Dr. Markel Bell MD Referring Provider Active Start: November 24, 2024 Dr. Les Shaikh DPM Attending Provider Active Start: November 24, 2024 Team Status: Inactive Member Role/Relationship Status Dates Dr. Markel Bell MD Primary Care Provider Active Start: November 25, 2024 End: November 25, 2024 Dr. Markel Bell MD Attending Provider Active Start: November 25, 2024 End: November 25, 2024 Dr. Markel Bell MD Referring Provider Active Start: November 25, 2024 End: November 25, 2024 Meter Shop Superintendent Relationship Specialty Start Date End Date Markel Bell [address] [facility] [address] [place] [address] PCP - General Family Medicine 06/15/24 Cristopher Walker MD [address] [place] [address] 82040 Physician Urology 04/10/24 Maxine Gu, ERIN [address] [place] [address] Physical Therapist Physical Therapy 05/08/24 Cathy Narayanan, OTR/L [address] [place] [address] [place] [address] Occupational Therapist Occupational Therapy 05/08/24 Neelima Rockwell DO [address] [place] [address] Physician Physical Medicine & Rehab/PM&R 06/15/24 Sen Garcia MD [address] [place] [address] 73137 Fellow Spinal Cord Injury 06/15/24 Darnell Xiong MD [address] [place] [address] 73359 Physician Cardiology 07/03/24 Irene Dominguez, PT [address] [place] [address] Physical Therapist Physical Therapy 08/07/24 Kaleigh Frank, PT [address] [place] [address] [place] [address] Physical Therapist Physical Therapy 09/04/24 Shruthi Sheffield MD [address] [place] [address] 25434 Physician Plastic Surgery 09/04/24 Ignacio Bonilla MD [address] [place] [phone] Physician Orthopaedic Hand Service 09/04/24 Team Status: Inactive Member Role/Relationship Status Dates Dr. Markel Bell MD Primary Care Provider Active Start: November 25, 2024 End: November 25, 2024 Dr. Markel Bell MD Attending Provider Active Start: November 25, 2024 End: November 25, 2024 Dr. Markel Bell MD Referring Provider Active Start: November 25, 2024 End: November 25, 2024 Team Status: Inactive Member Role/Relationship Status Dates Dr. Markel Bell MD Primary Care Provider Active Start: December 01, 2024 End: December 02, 2024 Dr. Markel Bell MD Referring Provider Active Start: December 01, 2024 End: December 02, 2024 Dr. Les Shaikh DPM Attending Provider Active Start: December 01, 2024 End: December 02, 2024 Meter Shop Superintendent Relationship Specialty Start Date End Date Markel Bell [address] [facility] [address] [place] [address] PCP - General Family Medicine 06/15/24 Cristopher Walker MD [address] [place] [address] 73198 Physician Urology 04/10/24 Maxine Gu, ERIN [address] [place] [address] 81067 Physical Therapist Physical Therapy 05/08/24 Cathy Narayanan, OTR/L [address] [place] [address] [place] [address] Occupational Therapist Occupational Therapy 05/08/24 Neelima Rockwell DO [address] [place] [address] Physician Physical Medicine & Rehab/PM&R 06/15/24 Sen Garcia MD [address] [place] [address] 04452 Fellow Spinal Cord Injury 06/15/24 Darnell Xiong MD [address] [place] [address] 13097 Physician Cardiology 07/03/24 Irene Dominguez, PT [address] [place], [place] [address] Physical Therapist Physical Therapy 08/07/24 Kaleigh Frank, PT [address] [place] [address] [place] [address] Physical Therapist Physical Therapy 09/04/24 Shruthi Sheffield MD [address] [place] [address] 05320 Physician Plastic Surgery 09/04/24 Ingacio Bonilla MD [address] [place] [phone] Physician Orthopaedic Hand Service 09/04/24 Meter Shop Superintendent Relationship Specialty Start Date End Date Markel Bell [address] [address] PCP - General Family Medicine 06/15/24 Cristopher Walker MD [address] [place] [address] 84495 Physician Urology 04/10/24 Maxine Gu, PT [address] [place] [address] 97566 Physical Therapist Physical Therapy 05/08/24 Cathy Narayanan, OTR/L [address] [place] [address] [place] [address] Occupational Therapist Occupational Therapy 05/08/24 Neelima Rockwell DO [address] [place] [address] Physician Physical Medicine & Rehab/PM&R 06/15/24 Sen Garcia MD [address] [place] [address] 49346 Fellow Spinal Cord Injury 06/15/24 Darnell Xiong MD [address] [place] [address] 54918 Physician Cardiology 07/03/24 Irene Dominguez, PT [address] [place], [place] [address] Physical Therapist Physical Therapy 08/07/24 Kaleigh Frank, PT [address] [place] [address] [place] [address] Physical Therapist Physical Therapy 09/04/24 Shruthi Sheffield MD [address] [place] [address] 40745 Physician Plastic Surgery 09/04/24 Ignacio Bonilla MD [address] [place] [phone] Physician Orthopaedic Hand Service 09/04/24 Neelima Villarreal MD [address] [place] [phone] Physician Physical Medicine & Rehab/PM&R 12/04/24 Cristine Carpio MD [address] [place] [address] [place] [address] Physician Physical Medicine & Rehab/PM&R 12/04/24 Meter Shop Superintendent Relationship Specialty Start Date End Date Markel Bell Joyc[address] [facility] [address] [place] [address] PCP - General Family Medicine 06/15/24 Cristopher Walker MD [address] [place], [place] [address] Physician Urology 04/10/24 Maxine Gu, PT [address] [place] [address] 79731 Physical Therapist Physical Therapy 05/08/24 Cathy Narayanan, OTR/L [address] [place] [address] [place] [address] Occupational Therapist Occupational Therapy 05/08/24 Neelima Rockwell DO [address] [place] [address] Physician Physical Medicine & Rehab/PM&R 06/15/24 Sen Garcia MD [address] [place] [address] 12459 Fellow Spinal Cord Injury 06/15/24 Darnell Xiong MD [address] [place] [address] 54712 Physician Cardiology 07/03/24 Irene Dominguez, PT [address] [place] [address] 14340 Physical Therapist Physical Therapy 08/07/24 Kaleigh Frank, PT [address] [place] [address] [place] [address] Physical Therapist Physical Therapy 09/04/24 Shruthi Sheffield MD [address] [place] [address] 00418 Physician Plastic Surgery 09/04/24 Ignacio Bonilla MD [address] [place] [phone] Physician Orthopaedic Hand Service 09/04/24 Neelima Villarreal MD [address] [place] [address] [place] [address] Physician Physical Medicine & Rehab/PM&R 12/04/24 Cristine Carpio MD [address] [place] [address] 59375 Physician Physical Medicine & Rehab/PM&R 12/04/24 Team Status: Inactive Member Role/Relationship Status Dates Dr. Markel Bell MD Primary Care Provider Active Start: September 21, 2024 End: October 02, 2024 Dr. Markel Bell MD Referring Provider Active Start: September 21, 2024 End: October 02, 2024 Dr. German Finney DPM Attending Provider Active Start: September 21, 2024 End: October 02, 2024 Team Status: Inactive Member Role/Relationship Status Dates Dr. Markel Bell MD Primary Care Provider Active Start: October 07, 2024 End: October 07, 2024 Dr. German Finney DPM Attending Provider Active Start: October 07, 2024 End: October 07, 2024 Dr. German Finney DPM Referring Provider Active Start: October 07, 2024 End: October 07, 2024 Team Status: Inactive Member Role/Relationship Status Dates Dr. Markel Bell MD Primary Care Provider Active Start: October 26, 2024 End: November 01, 2024 Dr. Markel Bell MD Referring Provider Active Start: October 26, 2024 End: November 01, 2024 Dr. Les Shaikh DPM Attending Provider Active Start: October 26, 2024 End: November 01, 2024 Team Status: Active Member Role/Relationship Status Dates Dr. Markel Bell MD Primary Care Provider Active Start: November 11, 2024 Dr. Markel Bell MD Referring Provider Active Start: November 11, 2024 Dr. Les Shaikh DPM Other Provider Active St art: November 11, 2024 DAVID Hanson Attending Provider Active Star t: November 11, 2024 Team Status: Inactive Member Role/Relationship Status Dates Dr. Markel Bell MD Primary Care Provider Active Start: November 25, 2024 End: November 25, 2024 Dr. Markel Bell MD Attending Provider Active Start: November 25, 2024 End: November 25, 2024 Dr. Markel Bell MD Referring Provider Active Start: November 25, 2024 End: November 25, 2024 Team Status: Inactive Member Role/Relationship Status Dates Dr. Markel Bell MD Primary Care Provider Active Start: December 01, 2024 End: December 02, 2024 Dr. Markel Bell MD Referring Provider Active Start: December 01, 2024 End: December 02, 2024 Dr. Les Shaikh DPM Attending Provider Active Start: December 01, 2024 End: December 02, 2024 Team Status: Inactive Member Role/Relationship Status Dates Dr. Markel Bell MD Primary Care Provider Active Start: December 29, 2024 End: January 02, 2025 Dr. Markel Bell MD Referring Provider Active Start: December 29, 2024 End: January 02, 2025 Dr. Les Shaikh DPM Attending Provider Active Start: December 29, 2024 End: January 02, 2025 Meter Shop Superintendent Relationship Specialty Start Date End Date Markel Bell [address] [facility] [address] [place] [address] PCP - General Family Medicine 06/15/24 Cristopher Walker MD [address] [place] [address] 59794 Physician Urology 04/10/24 Maxine Gu PT [address] [place] [address] 74997 Physical Therapist Physical Therapy 05/08/24 Cathy Narayanan, OTR/L [address] [place] [address] Occupational Therapist Occupational Therapy 05/08/24 Neelima Rockwell DO [address] [place] [address] Physician Physical Medicine & Rehab/PM&R 06/15/24 Sen Garcia MD [address] [place] [address] 99852 Fellow Spinal Cord Injury 06/15/24 Darnell Xiong MD [address] [place] [address] 10085 Physician Cardiology 07/03/24 Meter Shop Superintendent Relationship Specialty Start Date End Date Markel Bell [address] [address] PCP - General Family Medicine 06/15/24 Cristopher Walker MD [address] [place] [address] 94656 Physician Urology 04/10/24 Maxine Gu, ERIN [address] [place] [address] 54689 Physical Therapist Physical Therapy 05/08/24 Cathy Narayanan, OTR/L [address] [place] [address] [place] [address] Occupational Therapist Occupational Therapy 05/08/24 [place] [address] [place] [address] [place] [address] Physician Physical Medicine & Rehab/PM&R 06/15/24 Sen Garcia MD [address] [place] [address] 26273 Fellow Spinal Cord Injury 06/15/24 Darnell Xiong MD [address] [place] [address] 19417 Physician Cardiology 07/03/24 Irene Dominguez, PT [address] [place] [address] Physical Therapist Physical Therapy 08/07/24 Kaleigh Frank, PT [address] [place] [address] [address] [place] [address] Physical Therapist Physical Therapy 09/04/24 Shruthi Sheffield MD [address] [place] [address] Physician Plastic Surgery 09/04/24 Ignacio Bonilla MD [address] [place] [address] Physician Orthopaedic Hand Service 09/04/24 Neelima Villarreal MD [address] [place] [address] Physician Physical Medicine & Rehab/PM&R 12/04/24 Cristine Carpio MD [address] [place] [address] [place] [address] Physician Physical Medicine & Rehab/PM&R 12/04/24 Meter Shop Superintendent Relationship Specialty Start Date End Date Markel Bell [address] [facility] [address] [place] [address] PCP - General Family Medicine 06/15/24 Cristopher Walker MD [address] [place] [address] 94454 Physician Urology 04/10/24 Maxine Gu, PT [address] [place], [place] [address] Physical Therapist Physical Therapy 05/08/24 Cathy Narayanan, OTR/L [address] [place] [address] [place] [address] Occupational Therapist Occupational Therapy 05/08/24 Neelima Rockwell DO [address] [place] [address] Physician Physical Medicine & Rehab/PM&R 06/15/24 Sen Garcia MD [address] [place] [address] 74531 Fellow Spinal Cord Injury 06/15/24 Darnell Xiong MD [address] [place] [address] 61383 Physician Cardiology 07/03/24 Irene Dominguez, PT [address] [place] [address] Physical Therapist Physical Therapy 08/07/24 Kaleigh Frank, PT [address] [place] [address] [place] [address] Physical Therapist Physical Therapy 09/04/24 Shruthi Sheffield MD [address] [place] [address] 66777 Physician Plastic Surgery 09/04/24 Ignacio Bonilla MD [address] [place] [phone] Physician Orthopaedic Hand Service 09/04/24 Neelima Villarreal MD [address] [place] [phone] Physician Physical Medicine & Rehab/PM&R 12/04/24 Cristine Carpio MD [address] [place] [address] [address] [place] [address] Physician Physical Medicine & Rehab/PM&R 12/04/24 Team Status: Active Member Role/Relationship Status Dates Dr. Markel Bell MD Primary care physician Active Team Status: Inactive Member Role/Relationship Status Dates Dr. Markel Bell MD Primary care physician Active Start: October 07, 2024 End: October 07, 2024 Dr. German Finney DPM Attending physician Active Start: October 07, 2024 End: October 07, 2024 Dr. German Finney DPM Referring Provider Active Start: October 07, 2024 End: October 07, 2024 Team Status: Inactive Member Role/Relationship Status Dates Dr. Markel Bell MD Primary care physician Active Start: October 26, 2024 End: November 01, 2024 Dr. Markel Bell MD Referring Provider Active Start: October 26, 2024 End: November 01, 2024 Dr. Les Shaikh DPM Attending physician Active Start: October 26, 2024 End: November 01, 2024 Team Status: Active Member Role/Relationship Status Dates Dr. Markel Bell MD Primary care physician Active Start: November 11, 2024 Dr. Markel Bell MD Referring Provider Active Start: November 11, 2024 Dr. Les Shaikh DPM Nurse Practitioner Active Start: November 11, 2024 DAVID Hanson Attending physician Active Sta rt: November 11, 2024 Team Status: Inactive Member Role/Relationship Status Dates Dr. Markel Bell MD Primary care physician Active Start: November 25, 2024 End: November 25, 2024 Dr. Markel Bell MD Attending physician Active Start: November 25, 2024 End: November 25, 2024 Dr. Markel Bell MD Referring Provider Active Start: November 25, 2024 End: November 25, 2024 Team Status: Inactive Member Role/Relationship Status Dates Dr. Markel Bell MD Primary care physician Active Start: December 01, 2024 End: December 02, 2024 Dr. Markel Bell MD Referring Provider Active Start: December 01, 2024 End: December 02, 2024 Dr. Les Shaikh DPM Attending physician Active Start: December 01, 2024 End: December 02, 2024 Team Status: Inactive Member Role/Relationship Status Dates Dr. Markel Bell MD Primary care physician Active Start: December 29, 2024 End: January 02, 2025 Dr. Markel Bell MD Referring Provider Active Start: December 29, 2024 End: January 02, 2025 Dr. Les Shaikh DPM Attending physician Active Start: December 29, 2024 End: January 02, 2025 Team Status: Inactive Member Role/Relationship Status Dates Dr. Markel Bell MD Primary care physician Active Start: January 26, 2025 End: February 01, 2025 Dr. Markel Bell MD Referring Provider Active Start: January 26, 2025 End: February 01, 2025 Dr. Les Shaikh DPM Attending physician Active Start: January 26, 2025 End: February 01, 2025 Team Status: Active Member Role/Relationship Status Dates Dr. Markel Bell MD Primary care physician Active Start: February 02, 2025 Dr. Markel Bell MD Referring Provider Active Start: February 02, 2025 Dr. Les Shaikh DPM Attending physician Active Start: February 02, 2025 Meter Shop Superintendent Relationship Specialty Start Date End Date Markel Bell [address] [place] [address] PCP - General Family Medicine 06/15/24 Cristopher Walker MD [address] [place] [address] 94631 Physician Urology 04/10/24 Maxine Gu PT [address] [place] [address] 69889 Physical Therapist Physical Therapy 05/08/24 Cathy Narayanan, OTR/L [address] [place] [address] [place] [address] Occupational Therapist Occupational Therapy 05/08/24 Neelima Rockwell DO [address] [place] [address] Physician Physical Medicine & Rehab/PM&R 06/15/24 Sen Garcia MD [address] [place] [address] 65418 Fellow Spinal Cord Injury 06/15/24 Darnell Xiong MD [address] [place] [address] 47565 Physician Cardiology 07/03/24 Irene Dominguez, PT [address] [place] [address] Physical Therapist Physical Therapy 08/07/24 Kaleigh Frank, PT [address] [place], [place] [phone] Physical Therapist Physical Therapy 09/04/24 Shruthi Sheffield MD [address] [place] [address] 76354 Physician Plastic Surgery 09/04/24 Ignacio Bonilla MD [address] [place] [phone] Physician Orthopaedic Hand Service 09/04/24 Meter Shop Superintendent Relationship Specialty Start Date End Date Markel Bell [address] [address] PCP - General Family Medicine 06/15/24 Cristopher Walker MD [address] [place] [address] 67656 Physician Urology 04/10/24 Maxine Gu, PT [address] [place] [address] Physical Therapist Physical Therapy 05/08/24 Cathy Narayanan, OTR/L [address] [place] [address] [place] [address] Occupational Therapist Occupational Therapy 05/08/24 [place] [address] [place] [address]88 Physician Physical Medicine & Rehab/PM&R 06/15/24 Sen Garcia MD [address] [place] [address] 74886 Fellow Spinal Cord Injury 06/15/24 Darnell Xiong MD [address] [place] [address] Physician Cardiology 07/03/24 Irene Dominguez, PT [address] [place] [address] Physical Therapist Physical Therapy 08/07/24 Cindy Pastor, PharmD Pharmacist Pharmacology and Toxicology 08/20/24 Emily Maynard CPhT [address] [place] [address] [employer] Pharmacology and Toxicology 08/20/24 Nayana Gifford Medication Activities Director [employer] Pharmacology and Toxicology 08/20/24 02/08/25 Kaleigh Frank, PT [address] [place] [address] [place] [address] Physical Therapist Physical Therapy 09/04/24 Shruthi Sheffield MD [address] [place] [address] 22241 Physician Plastic Surgery 09/04/24 Ignacio Bonilla MD [address] [place] [phone] Physician Orthopaedic Hand Service 09/04/24 Neelima Villarreal MD [address] [place] [phone] Physician Physical Medicine & Rehab/PM&R 12/04/24 Cristine Carpio MD [address] [place] [address] [address] [place] [address] Physician Physical Medicine & Rehab/PM&R 12/04/24 Kwan Verma, LA NENA, OTR/L, CHT [address] [place] [address] [address] [place] [address] Occupational Therapist Occupational Therapy 01/31/25 Meter Shop Superintendent Relationship Specialty Start Date End Date Markel Bell [address] [address] PCP - General Family Medicine 06/15/24 Cristopher Walker MD [address] [place] [address] 61856 Physician Urology 04/10/24 Maxine Gu, ERIN [address] [place] [address] 05128 Physical Therapist Physical Therapy 05/08/24 Cathy Narayanan, OTR/L [address] [place] [address] [address] [place] [address] Occupational Therapist Occupational Therapy 05/08/24 Neelima Rockwell DO [address] [place] [address] Physician Physical Medicine & Rehab/PM&R 06/15/24 Sen Garcia MD [address] [place] [address] 59564 Fellow Spinal Cord Injury 06/15/24 Darnell Xiong MD [address] [place] [address] Physician Cardiology 07/03/24 Irene Dominguez, PT [address] [place] [address] Physical Therapist Physical Therapy 08/07/24 Cindy Pastor, PharmD Pharmacist Pharmacology and Toxicology 08/20/24 Emily Maynard CPhT [address] [place], [place] [phone] [employer] Pharmacology and Toxicology 08/20/24 Nayana Gifford Medication Activities Director [employer] Pharmacology and Toxicology 08/20/24 02/08/25 Kaleigh Frank, PT [address] [place] [address] [address] [place] [address] Physical Therapist Physical Therapy 09/04/24 Shruthi Sheffield MD [address] [place] [address] Physician Plastic Surgery 09/04/24 Ignacio Bonilla MD [address] [place] [address] Physician Orthopaedic Hand Service 09/04/24 Neelima Villarreal MD [address] [place] [address] Physician Physical Medicine & Rehab/PM&R 12/04/24 Cristine Carpio MD [address] [place] [address] [address] [place] [address] Physician Physical Medicine & Rehab/PM&R 12/04/24 Kwan Verma, OTD, OTR/L, CHT [address] [place] [address] [address] [place] [address] Occupational Therapist Occupational Therapy 01/31/25 Guevara Arias, PharmD [address] [place] [address] 89229 Pharmacist 02/08/25 Celena Mandel CPhT [address] [place] [address] 69736 Medication Activities Director [employer] Pharmacology and Toxicology 02/08/25 Meter Shop Superintendent Relationship Specialty Start Date End Date Markel Bell [address] [place] [address] PCP - General Family Medicine 06/15/24 Cristopher Walker MD [address] [place] [address] 44160 Physician Urology 04/10/24 Maxine Gu, PT [address] [place] [address] 57711 Physical Therapist Physical Therapy 05/08/24 Cathy Narayanan, OTR/L [address] [place] [address] [address] [place] [address] Occupational Therapist Occupational Therapy 05/08/24 Neelima Rockwell DO [address] [place] [address] Physician Physical Medicine & Rehab/PM&R 06/15/24 Sen Garcia MD [address] [place] [address] 50553 Fellow Spinal Cord Injury 06/15/24 Darnell Xiong MD [address] [place] [address] 40629 Physician Cardiology 07/03/24 Irene Dominguez, PT [address] [place] [address] 95129 Physical Therapist Physical Therapy 08/07/24 Cindy Pastor, EloyD Pharmacist Pharmacology and Toxicology 08/20/24 Emily Maynard CPhT [address] [place], [place] [phone] [employer] Pharmacology and Toxicology 08/20/24 Kaleigh Frank, PT [address] [place] [address] [address] [place] [address] Physical Therapist Physical Therapy 09/04/24 Shruthi Sheffield MD [address] [place], [place] [phone] Physician Plastic Surgery 09/04/24 Ignacio Bonilla MD [address] [place] [address] Physician Orthopaedic Hand Service 09/04/24 Neelima Villarreal MD [address] [place] [address] Physician Physical Medicine & Rehab/PM&R 12/04/24 Cristine Carpio MD [address] [place] [address] [address] [place] [phone] Physician Physical Medicine & Rehab/PM&R 12/04/24 Kwan Verma, OTD, OTR/L, CHT [address] [place] [address] [address] [place] [address] Occupational Therapist Occupational Therapy 01/31/25 Guevara Arias, EloyD [address] [place] [address] 72609 Pharmacist 02/08/25 Celena Mandel CPhT [address] [place] [address] 09999 Medication Activities Director [employer] Pharmacology and Toxicology 02/08/25 Meter Shop Superintendent Relationship Specialty Start Date End Date Markel Bell [address] [place] [address] PCP - General Family Medicine 06/15/24 Cristopher Walker MD [address] [place] [address] 11218 Physician Urology 04/10/24 Maxine Gu, PT [address] [place] [address] Physical Therapist Physical Therapy 05/08/24 Cathy Narayanan, OTR/L [address] [place] [address] [address] [place] [address] Occupational Therapist Occupational Therapy 05/08/24 Neelima Rockwell DO [facility] [address] [place] [address] Physician Physical Medicine & Rehab/PM&R 06/15/24 Sen Garcia MD [address] [place], [place] [phone] Fellow Spinal Cord Injury 06/15/24 Darnell Xiong MD [address] [place] [address] 48008 Physician Cardiology 07/03/24 Irene Dominguez, PT [address] [place] [address] 48266 Physical Therapist Physical Therapy 08/07/24 Cindy Pastor, PharmD Pharmacist Pharmacology and Toxicology 08/20/24 Emily Maynard CPhT [address] [place] [address] 87854 Clear [employer] Pharmacology and Toxicology 08/20/24 Nayana Gifford Medication Activities Director [employer] Pharmacology and Toxicology 08/20/24 02/08/25 Kaleigh Frank, PT [address] [place] [address] [address] [place] [address] Physical Therapist Physical Therapy 09/04/24 Shruthi Sheffield MD [address] [place] [address] 67853 Physician Plastic Surgery 09/04/24 Ignacio Bonilla MD [address] [place] [address] Physician Orthopaedic Hand Service 09/04/24 Neelima Villarreal MD [address] [place] [address] Physician Physical Medicine & Rehab/PM&R 12/04/24 Cristine Carpio MD [address] [place] [address] [address] [place] [address] Physician Physical Medicine & Rehab/PM&R 12/04/24 Kwan Verma, LA NENA, OTR/L, CHT [address] [place] [address] [address] [place] [address] Occupational Therapist Occupational Therapy 01/31/25 Guevara Arias, EloyD [address] [place] [address] 39655 Pharmacist 02/08/25 Celena Mandel CPhT [address] [place], [place] [phone] Medication Activities Director [employer] Pharmacology and Toxicology 02/08/25 Meter Shop Superintendent Relationship Specialty Start Date End Date Markel Bell [address] [place] [address] PCP - General Family Medicine 06/15/24 Cristopher Walker MD [address] [place] [address] 57482 Physician Urology 04/10/24 Maxine Gu, PT [address] [place] [address] 73227 Physical Therapist Physical Therapy 05/08/24 Cathy Narayanan, OTR/L [address] [place] [address] [address] [place] [address] Occupational Therapist Occupational Therapy 05/08/24 Neelima Rockwell DO [address] [place] [address] Physician Physical Medicine & Rehab/PM&R 06/15/24 Sen Garcia MD [address] [place] [address] 37094 Fellow Spinal Cord Injury 06/15/24 Darnell Xiong MD [address] [place], [place] [phone] Physician Cardiology 07/03/24 Irene Dominguez, PT [address] [place], [place] [phone] Physical Therapist Physical Therapy 08/07/24 Cindy Pastor, EloyD Pharmacist Pharmacology and Toxicology 08/20/24 Emily Maynard CPhT [address] [place] [address] 52016 [employer] Pharmacology and Toxicology 08/20/24 Nayana Gifford Medication Activities Director [employer] Pharmacology and Toxicology 08/20/24 02/08/25 Kaleigh Frank, PT [address] [place] [address] [address] [place] [address] Physical Therapist Physical Therapy 09/04/24 Shruthi Sheffield MD [address] [place] [address] 03434 Physician Plastic Surgery 09/04/24 Ignacio Bonilla MD [address] [place] [address] Physician Orthopaedic Hand Service 09/04/24 Neelima Villarreal MD [address] [place] [address] Physician Physical Medicine & Rehab/PM&R 12/04/24 Cristine Carpio MD [address] [place] [address] [address] [place] [address] Physician Physical Medicine & Rehab/PM&R 12/04/24 Kwan Verma, OTD, OTR/L, CHT [address] [place] [address] [address] [place] [address] Occupational Therapist Occupational Therapy 01/31/25 Guevara Arias, PharmD [address] [place], [place] [phone] Pharmacist 02/08/25 Celena Mandel CPhT [address] [place], [place] [phone] Medication Activities Director [employer] Pharmacology and Toxicology 02/08/25 Meter Shop Superintendent Relationship Specialty Start Date End Date Markel Bell [address] [place] [address] PCP - General Family Medicine 06/15/24 Cristopher Walker MD [address] [place] [address] Physician Urology 04/10/24 Maxine Gu, ERIN [address] [place], [place] [phone] Physical Therapist Physical Therapy 05/08/24 Cathy Narayanan, OTR/L [address] [place] [address] Dr [place] [phone] Occupational Therapist Occupational Therapy 05/08/24 Neelima Rockwell DO [address] [place] [address] Physician Physical Medicine & Rehab/PM&R 06/15/24 Sen Garcia MD [address] [place], [place] [phone] Fellow Spinal Cord Injury 06/15/24 Darnell Xiong MD [address] [place], [place] [phone] Physician Cardiology 07/03/24 Irene Dominguez, PT [address] [place] [address] Physical Therapist Physical Therapy 08/07/24 Cindy Pastor, EloyD Pharmacist Pharmacology and Toxicology 08/20/24 Emily Maynard CPhT [address] [place] [address] [employer] Pharmacology and Toxicology 08/20/24 Kaleigh Frank, PT [address] [place] [address] [address] [place] [address] Physical Therapist Physical Therapy 09/04/24 Shruthi Sheffield MD [address] [place] [address] Physician Plastic Surgery 09/04/24 Ignacio Bonilla MD [address] [place] [address] Physician Orthopaedic Hand Service 09/04/24 Neelima Villarreal MD [address] [place] [address] Physician Physical Medicine & Rehab/PM&R 12/04/24 Cristine Carpio MD [address] [place] [address] [address] [place] [address] Physician Physical Medicine & Rehab/PM&R 12/04/24 Kwan Verma, OTDebra, OTR/L, CHT [address] [place] [address] [address] [place] [address] Occupational Therapist Occupational Therapy 01/31/25 Guevara Arias, EloyD [address] [place] [address] 61244 Pharmacist 02/08/25 Celena Mandel CPhT [address] [place] [address] 91364 Medication Activities Director [employer] Pharmacology and Toxicology 02/08/25 Meter Shop Superintendent Relationship Specialty Start Date End Date ConorMarkel prather [address] [place] [address] PCP - General Family Medicine 06/15/24 Cristopher Walker MD [address] [place] [address] 35277 Physician Urology 04/10/24 Maxine Gu, PT [address] [place] [address] 60812 Physical Therapist Physical Therapy 05/08/24 Cathy Narayanan, OTR/L [address] [place] [address] [address] [place] [address] Occupational Therapist Occupational Therapy 05/08/24 Neelima Rockwell DO [address] [place] [address] Physician Physical Medicine & Rehab/PM&R 06/15/24 Sen Garcia MD [address] [place] [address] 62599 Fellow Spinal Cord Injury 06/15/24 Darnell Xiogn MD [address] [place] [address] 88958 Physician Cardiology 07/03/24 Irene Dominguez, PT [address] [place] [address] 47961 Physical Therapist Physical Therapy 08/07/24 Cindy Pastor, PharmD Pharmacist Pharmacology and Toxicology 08/20/24 Emily Maynard CPhT [address] [place] [address] 74595 [employer] Pharmacology and Toxicology 08/20/24 Nayana Gifford Medication Activities Director [employer] Pharmacology and Toxicology 08/20/24 02/08/25 Kaleigh Frank, PT [address] [place] [address] [place] [phone] Physical Therapist Physical Therapy 09/04/24 Shruthi Sheffield MD [address] [place] [address] Physician Plastic Surgery 09/04/24 Ignacio Bonilla MD [address] [place] [address] Physician Orthopaedic Hand Service 09/04/24 Neelima Villarreal MD [address] [place] [address] Physician Physical Medicine & Rehab/PM&R 12/04/24 Cristine Carpio MD [address] [place] [address] [address] [place] [address] Physician Physical Medicine & Rehab/PM&R 12/04/24 Kwan Verma, OTD, OTR/L, CHT [address] [place] [address] [address] [place] [address] Occupational Therapist Occupational Therapy 01/31/25 Guevara Arias, PharmD [address] [place], [place] [phone] Pharmacist 02/08/25 Celena Mandel CPhT [address] [place], [place] [phone] Medication Activities Director [employer] Pharmacology and Toxicology 02/08/25 Meter Shop Superintendent Relationship Specialty Start Date End Date Markel Bell [address] [place] [address] PCP - General Family Medicine 06/15/24 Cristopher Walker MD [address] [place] [address] 50336 Physician Urology 04/10/24 Maxine Gu, PT [address] [place] [address] Physical Therapist Physical Therapy 05/08/24 Cathy Narayanan, OTR/L [address] [place] [address] [place] [address] Occupational Therapist Occupational Therapy 05/08/24 Neelima Rockwell DO [address] [place] [address] Physician Physical Medicine & Rehab/PM&R 06/15/24 Sen Garcia MD [address] [place] [address] Fellow Spinal Cord Injury 06/15/24 Darnell Xiong MD [address] [place] [address] Physician Cardiology 07/03/24 Irene Dominguez, PT [address] [place] [address] Physical Therapist Physical Therapy 08/07/24 Cindy Pastor, PharmD Pharmacist Pharmacology and Toxicology 08/20/24 Emily Maynard CPhT [address] [place], [place] [phone] [facility] Tech Pharmacology and Toxicology 08/20/24 Nayana Gifford Medication Activities Director [employer] Pharmacology and Toxicology 08/20/24 02/08/25 Kaleigh Frank, PT [address] [place] [address] [place] [address] Physical Therapist Physical Therapy 09/04/24 Shruthi Sheffield MD [address] [place] [address] 98487 Physician Plastic Surgery 09/04/24 Ignacio Bonilla MD [address] [place] [phone] Physician Orthopaedic Hand Service 09/04/24 Neelima Villarreal MD [address] [place] [phone] Physician Physical Medicine & Rehab/PM&R 12/04/24 Cristine Carpio MD [address] [place] [address] [address] [place] [phone] Physician Physical Medicine & Rehab/PM&R 12/04/24 Kwan Verma, LA NENA, OTR/L, CHT [address] [place] [address] [address] [place] [phone] Occupational Therapist Occupational Therapy 01/31/25 Guevara Arias, EloyD [address] [place] [address] Pharmacist 02/08/25 Celena Mandel CPhT [address] [place] [address] Medication Activities Director [employer] Pharmacology and Toxicology 02/08/25 Meter Shop Superintendent Relationship Specialty Start Date End Date Markel Bell [address] [place] [address] PCP - General Family Medicine 06/15/24 Cristopher Walker MD [address] [place] [address] Physician Urology 04/10/24 Maxine Gu, PT [address] [place], [place] [phone] Physical Therapist Physical Therapy 05/08/24 Cathy Narayanan, OTR/L [address] [place] [address] [address] [place] [address] Occupational Therapist Occupational Therapy 05/08/24 Neelima Rockwell DO [address] [place] [address] Physician Physical Medicine & Rehab/PM&R 06/15/24 Sen Garcia MD [facility] [address] [place] [address] Fellow Spinal Cord Injury 06/15/24 Darnell Xiong MD [address] [place], [place] [phone] Physician Cardiology 07/03/24 Irene Dominguez, PT [address] [place] [address] Physical Therapist Physical Therapy 08/07/24 Cindy Pastor, PharmD Pharmacist Pharmacology and Toxicology 08/20/24 Emily Maynard CPhT [address] [place] [address] 36567 [employer] Pharmacology and Toxicology 08/20/24 Nayana Gifford Medication Activities Director [employer] Pharmacology and Toxicology 08/20/24 02/08/25 Kaleigh Frank, PT [address] [place] [address] [address] [place] [address] Physical Therapist Physical Therapy 09/04/24 Shruthi Sheffield MD [address] [place], [place] [phone] Physician Plastic Surgery 09/04/24 Ignacio Bonilla MD [address] [place] [address] Physician Orthopaedic Hand Service 09/04/24 Neelima Villarreal MD [address] [place] [address] Physician Physical Medicine & Rehab/PM&R 12/04/24 Cristine Carpio MD [address] [place] [address] [place] [address] Physician Physical Medicine & Rehab/PM&R 12/04/24 Kwan Verma, OTD, OTR/L, CHT [address] [place] [address] [address] [place] [address] Occupational Therapist Occupational Therapy 01/31/25 Guevara Arias, EloyD [address] [place] [address] 69644 Pharmacist 02/08/25 Celena Mandel, Aubree [address] [place] [address] 65736 Medication Activities Director [employer] Pharmacology and Toxicology 02/08/25 Meter Shop Superintendent Relationship Specialty Start Date End Date Markel Bell [address] [place] [address] PCP - General Family Medicine 06/15/24 Cristopher Walker MD [address] [place] [address] 30596 Physician Urology 04/10/24 Maxine Gu, PT [address] [place] [address] 13644 Physical Therapist Physical Therapy 05/08/24 Cathy Narayanan, OTR/L [address] [place] [address] [address] [place] [address] Occupational Therapist Occupational Therapy 05/08/24 Neelima Rockwell DO [address] [facility] [address] [place] [address] Physician Physical Medicine & Rehab/PM&R 06/15/24 Sen Garcia MD [address] [facility] [address] [place] [address] Fellow Spinal Cord Injury 06/15/24 Darnell Xiong MD [address] [place] [address] 67367 Physician Cardiology 07/03/24 Irene Dominguez, PT [address] [place] [address]16 Physical Therapist Physical Therapy 08/07/24 Cindy Pastor, EloyD Pharmacist Pharmacology and Toxicology 08/20/24 Emily Maynard CPhT [address] [place] [address] 13671 [employer] Pharmacology and Toxicology 08/20/24 Nayana Gifford Medication Activities Director [employer] Pharmacology and Toxicology 08/20/24 02/08/25 Kaleigh Frank, PT [address] [place] [address] [address] [place] [address] Physical Therapist Physical Therapy 09/04/24 Shruthi Sheffield MD [address] [place] [address] 49580 Physician Plastic Surgery 09/04/24 Ignacio Bonilla MD [address] [place] [phone] Physician Orthopaedic Hand Service 09/04/24 Neelima Villarreal MD [address] [place] [address] Physician Physical Medicine & Rehab/PM&R 12/04/24 Cristine Carpio MD [address] [place] [address] [address] [place] [address] Physician Physical Medicine & Rehab/PM&R 12/04/24 Kwan Verma, OTD, OTR/L, CHT [address] [place] [address] [address] [place] [address] Occupational Therapist Occupational Therapy 01/31/25 Guevara Arias, EloyD [address] [place] [address] [phone] Pharmacist 02/08/25 Celena Mandel CPhT [address] [place] [address] [phone] Medication Activities Director [employer] Pharmacology and Toxicology 02/08/25 Meter Shop Superintendent Relationship Specialty Start Date End Date Markel Bell [address] [address] [place] [address] PCP - General Family Medicine 06/15/24 Cristopher Walker MD [address] [place], [place] [id number] Physician Urology 04/10/24 Maxine Gu, PT [address] [place] [address] Physical Therapist Physical Therapy 05/08/24 Cathy Narayanan, OTR/L [address] [place] [address] [address] [place] [address] Occupational Therapist Occupational Therapy 05/08/24 Neelima Rockwell DO [address] [place] [address] Physician Physical Medicine & Rehab/PM&R 06/15/24 Sen Garcia MD [address] [place] [address] Fellow Spinal Cord Injury 06/15/24 Darnell Xiong MD [address] [place], [place] [id number] Physician Cardiology 07/03/24 Irene Dominguez, PT [address] [place] [address] Physical Therapist Physical Therapy 08/07/24 Cindy Pastor, PharmD Pharmacist Pharmacology and Toxicology 08/20/24 Emily Maynard CPhT [address] [place] [address] Clear Bag Tech Pharmacology and Toxicology 08/20/24 Kaleigh Frank, PT [address] [place] [address] [address] [place], [place] [address] Physical Therapist Physical Therapy 09/04/24 Shruthi Sheffield MD [address] [place] [address] Physician Plastic Surgery 09/04/24 Ignacio Bonilla MD [address] [place] [address] Physician Orthopaedic Hand Service 09/04/24 Neelima Villarreal MD [address] [place] [address] Physician Physical Medicine & Rehab/PM&R 12/04/24 Cristine Carpio MD [address] [place] [address] [address] [place], [place] Physician Physical Medicine & Rehab/PM&R 12/04/24 Kwan Verma, LA NENA, OTR/L, CHT [address] [place] [address] [address] [place] [address] Occupational Therapist Occupational Therapy 01/31/25 Guevara Arias, PharmD [address] [place], [place] [phone] Pharmacist 02/08/25 Celena Mandel CPhT [address] [place], [place] [phone] Medication Activities Director Scouting Pharmacology and Toxicology 02/08/25 Meter Shop Superintendent Relationship Specialty Start Date End Date Markel Bell [address] [place] [address] PCP - General Family Medicine 06/15/24 Cristopher Walker MD [address] [place], [place] [id number] Physician Urology 04/10/24 Maxine Gu, PT [address] [place], [place] [phone] Physical Therapist Physical Therapy 05/08/24 Cathy Narayanan, OTR/L [address] [place] [address] [address] [place] [id number] Occupational Therapist Occupational Therapy 05/08/24 Neelima Rockwell DO [address] [place] [address] Physician Physical Medicine & Rehab/PM&R 06/15/24 Sen Garcia MD [address] [place] [address] Fellow Spinal Cord Injury 06/15/24 Darnell Xiong MD [address] [place] [address] Physician Cardiology 07/03/24 Irene Dominguez, PT [address] [place] [address] Physical Therapist Physical Therapy 08/07/24 Cindy Pastor, PharmD Pharmacist Pharmacology and Toxicology 08/20/24 Emily Maynard CPhT [address] [place], [place] [phone] [place] Pharmacology and Toxicology 08/20/24 Kaleigh Frank, PT [address] [place] [address] [address] [place] [address] Physical Therapist Physical Therapy 09/04/24 Shruthi Sheffield MD [address] [place] [address] Physician Plastic Surgery 09/04/24 Ignacio Bonilla MD [address] [place] [address] Physician Orthopaedic Hand Service 09/04/24 Neelima Villarreal MD [address] [place] [address] Physician Physical Medicine & Rehab/PM&R 12/04/24 Cristine Carpio MD [address] [place] [address] [address] [place] [address] Physician Physical Medicine & Rehab/PM&R 12/04/24 Kwan Verma, LA NENA, OTR/L, CHT [address] [place] [address] [address] [place] [address] Occupational Therapist Occupational Therapy 01/31/25 Guevara Arias, EloyD [address] [place] [address] Pharmacist 02/08/25 Celena Mandel CPhT [address] [place] [address] Medication Activities Director Scouting Pharmacology and Toxicology 02/08/25 Meter Shop Superintendent Relationship Specialty Start Date End Date Markel Bell [address] [facility] [address] [place] [phone] PCP - General Family Medicine 06/15/24 Cristopher Walker MD [address] [place] [address] Physician Urology 04/10/24 Maxine Gu, PT [address] [place] [address] Physical Therapist Physical Therapy 05/08/24 Cathy Narayanan, OTR/L [address] [place] [address] Dr [place] [id number] Occupational Therapist Occupational Therapy 05/08/24 Neelima Rockwell DO [address] [facility] [address] [place] [address] Physician Physical Medicine & Rehab/PM&R 06/15/24 Sen Garcia MD [address] [place] [address] Fellow Spinal Cord Injury 06/15/24 Darnell Xiong MD [address] [place] [address] Physician Cardiology 07/03/24 Irene Dominguez, PT [address] [place] [address] Physical Therapist Physical Therapy 08/07/24 Cindy Pastor, EloyD Pharmacist Pharmacology and Toxicology 08/20/24 Emily Maynard CPhT [address] [place] [address] Clear [employer] ink Pharmacology and Toxicology 08/20/24 Kaleigh Frank, PT [address] [place] [address] [place] [address] Physical Therapist Physical Therapy 09/04/24 Shruthi Sheffield MD [address] [place] [address] Physician Plastic Surgery 09/04/24 Ignacio Bonilla MD [address] [place] [address] Physician Orthopaedic Hand Service 09/04/24 Neelima Villarreal MD [address] [place] [address] Physician Physical Medicine & Rehab/PM&R 12/04/24 Cristine Carpio MD [address] [place] [address] [place] [address] Physician Physical Medicine & Rehab/PM&R 12/04/24 Kwan Verma, OTDebra, OTR/L, CHT [address] [place] [address] [address] [place] [address] Occupational Therapist Occupational Therapy 01/31/25 Guevara Arias PharmD [address] [place], [place] [phone] Pharmacist 02/08/25 Celena Mandel CPhT [address] [place] [address] Medication Activities Director Scouting Pharmacology and Toxicology 02/08/25 Goals (unrecognized section and content) Goals may be documented in a n alternate sectionGoals may be documented in an alternate sectionGoals may be documented in an alternate sectionGoals may be documented in an alternate sectionGoals may be documented in an alternate sectionGoals may be documented in an alternate sectionGoals may be documented in an alternate sectionGoals may be documented in an alternate section Reason for Visit (unrecogniz ed section and content) Reason Comments PT Eval 1 Specialty Diagnoses / Procedures Referred By Lorenzo rodriguez Referred To Contact Physical Therapy Diagnoses Tetraplegia (HCC) Procedures PT EVAL LOW COMPLEX 20 MIN PT EVAL MOD COMPLEX 30 MIN PT EVAL HIGH COMPLEX 45 MIN THERAPEUTIC EXERCISE NEUROMUSCULAR REEDUCATION THERAPEUTIC ACTIVITY EA 15MIN GAIT TRAINING THERAPY RESPIRATORY MANAGEMNT TRAINING WHEELCHAIR MGMT/TRN ORTHOTIC(S) MGMT AND TRAINING, UPPER EXTREMITY(S), LOWER EXTREMITY(S) AND/OR TRUNK, EA 15 MINUTES MS ORTHOTICS/PROSTH MGMT &/TRAINJ SBSQ ENCTR 15 MIN Cristine Carpio MD [address] [place] [address] Phone: tel: fax: [facility] PHYSICAL THERAPY [address] [place] [address] Phone: tel: Referral ID Status Reason Start Date Expiration Date Visits Requested Visits Authorized [id number] Authorized Consultatio n-[facility] 12/29/2024 05/04/2025 30 30 Reason Comments PT Visit # 2 Specialty Diagnoses / Procedures Referred By Lorenzo t Referred To Contact Physical Therapy Diagnoses Injury of cervical spinal cord, initial encounter (HCC) Procedures PT EVAL LOW COMPLEX 20 MIN PT EVAL MOD COMPLEX 30 MIN PT EVAL HIGH COMPLEX 45 MIN THERAPEUTIC EXERCISE NEUROMUSCULAR REEDUCATION THERAPEUTIC ACTIVITY EA 15MIN GAIT TRAINING THERAPY RESPIRATORY MANAGEMNT TRAINING WHEELCHAIR MGMT/TRN ORTHOTIC(S) MGMT AND TRAINING, UPPER EXTREMITY(S), LOWER EXTREMITY(S) AND/OR TRUNK, EA 15 MINUTES MS ORTHOTICS/PROSTH MGMT &/TRAINJ SBSQ ENCTR 15 MIN Daquan Fiore III, MD [facility] [address] [place] [address] Phone: tel: [facility] [address] [place] [address] Phone: tel: Referral ID Status Reason Start Date Expiration Date V isits Requested Visits Authorized [id number] Closed Consultation -[facility] 04/06/2024 10/01/2024 14 14 Reason Comments PT Visit # 4 Reason Comments Post-op Reason Comments Pain Severe pain Reason Comments New patient, to establish relationship Specialty Diagnoses / Procedures Referred By Lorenzo t Referred To Contact Urology Diagnoses Neurogenic bladder Neurogenic bowel Urinary tract infection without hematuria, site unspecified Daquan Fiore III, MD [address] [place] [address] Phone: tel: [facility] UROLOGIC SURGERY [address] [place] [address] Phone: tel: Referral ID Status Reason Start Date Expiration Date V isits Requested Visits Authorized [id number] Authorized 03/30/2024 03/30/2025 3 3 Reason Comments OT Evaluation Visit 1 Specialty Diagnoses / Procedures Referred By Lorenzo rodriguez Referred To Contact Occupational Therapy Diagnoses Injury of cervical spinal cord, initial encounter (HCC) Procedures OT EVAL LOW COMPLEX 30 MIN OT EVAL MOD COMPLEX 45 MIN OT EVAL HIGH COMPLEX 60 MIN OT RE-EVAL EST PLAN CARE THERAPEUTIC ACTIVITY EA 15MIN THERAPEUTIC EXERCISE JOINT MOBILIZATION VOCATIONAL CONSULTATION NEUROMUSCULAR REEDUCATION RESPIRATORY MANAGEMNT TRAINING Daquan Fiore III, MD [address] [place] [address] Phone: tel: [facility] [address] [place] [address] Phone: tel: Referral ID Status Reason Start Date Expiration Date V isits Requested Visits Authorized [id number] Closed Consultation -[facility] 04/04/2024 07/06/2024 10 10 Referral ID Status Reason Start Date Expiration Date Visits Requested Visits Authorized [id number] Authorized Consultatio n-[facility] 04/06/2024 07/06/2024 14 14 Reason Comments OT Evaluation 1 C Specialty Diagnoses / Procedures Referred By Lorenzo t Referred To Contact Diagnoses Tetraplegia (HCC) Procedures PT EVAL LOW COMPLEX 20 MIN PT EVAL MOD COMPLEX 30 MIN PT EVAL HIGH COMPLEX 45 MIN OT EVAL LOW COMPLEX 30 MIN OT EVAL MOD COMPLEX 45 MIN OT EVAL HIGH COMPLEX 60 MIN Cathy Narayanan, OTR/L [address] [place] [address] [facility] [address] [place] [address] Phone: tel: Referral ID Status Reason Start Date Expiration Date V isits Requested Visits Authorized [id number] Pending Review 04/26/2024 04/26/2025 4 4 Reason Onset Date Comments Specialty Pharmacy Referral 08/20/2024 Boto x Prior Authorization 08/20/2024 Reason Comments Procedure Reason Comments Wheelchair Clinic Delivery/fitting/pre ssure mapping in-home--visit 2 Specialty Diagnoses / Procedures Referred By Lorenzo t Referred To Contact Physical Therapy Diagnoses Tetraplegia (HCC) Procedures PT EVAL LOW COMPLEX 20 MIN PT EVAL MOD COMPLEX 30 MIN PT EVAL HIGH COMPLEX 45 MIN THERAPEUTIC EXERCISE RESPIRATORY MANAGEMNT TRAINING WHEELCHAIR MGMT/TRN VOCATIONAL CONSULTATION NEUROMUSCULAR REEDUCATION THERAPEUTIC ACTIVITY EA 15MIN ASSISTIVE TECHNOLOGY ASSESSMENT, DIRECT CONTACT, W/ REPORT, EA 15 MIN Cathy Narayanan, OTR/L [address] [place] [address] [address] [place] [address] [facility] [address] [place] [address] Phone: tel: Referral ID Status Reason Start Date Expiration Date Visits Requested Visits Authorized [id number] [facility] 14 14 Reason Onset Date Comments Refill 10/19/2024 Reason Onset Date Comments Specialty Pharmacy Referral 10/19/2024 Boto x: new insurance Prior Authorization 10/19/2024 Reason Onset Date Comments Specialty Pharmacy Referral 10/19/2024 Boto x: new insurance Prior Authorization 10/19/2024 Reason Onset Date Comments Specialty Pharmacy Referral 10/19/2024 Dysp ortDenied:Botox: new insurance Prior Authorization 10/19/2024 Reason Onset Date Comments Botox for Spacticity Notes 11/10/2024 Specialty Diagnoses / Procedures Referred By Contac t Referred To Contact Pharmacy Diagnoses Tetraplegia (HCC) Spasm of muscle Neelima Villarreal MD [address] [place] [address] Phone: tel: fax: PHARMACY [address] [place] [address] [address] [place] [address] Phone: tel: Referral ID Status Reason Start Date Expiration Date Visits Requested Visits Authorized [id number] Authorized Pharmacy Pre Auth 11/02/2024 11/02/2025 3 4 Reason Comments Treatment At-home OOD AT [facility] office Specialty Diagnoses / Procedures Referred By Contac t Referred To Contact Physical Therapy Diagnoses Impaired functional mobility, balance, and endurance Injury of cervical spinal cord, initial encounter (HCC) Neck pain Procedures PT EVAL LOW COMPLEX 20 MIN PT EVAL MOD COMPLEX 30 MIN PT EVAL HIGH COMPLEX 45 MIN WHEELCHAIR MGMT/TRN VOCATIONAL CONSULTATION THERAPEUTIC EXERCISE NEUROMUSCULAR REEDUCATION THERAPEUTIC ACTIVITY EA 15MIN RESPIRATORY MANAGEMNT TRAINING ASSISTIVE TECHNOLOGY ASSESSMENT, DIRECT CONTACT, W/ REPORT, EA 15 MIN Kaleigh Frank, PT [address] [place] [address] [address] Physical Therapy [address] [place] [address] Phone: tel: Referral ID Status Reason Start Date Expiration Date Visits Requested Visits Authorized [id number] Authorized Consultatio [facility] 12/02/2024 03/04/2025 3 3 Reason Onset Date Comments Specialty Pharmacy Referral 02/08/2025 Dysp ort- New INS Reason Comments OT Evaluation 1 Specialty Diagnoses / Procedures Referred By Contact Referred To Contact Occupational Therapy Diagnoses Tetraplegia (HCC) Procedures OT RE-EVAL EST PLAN CARE THERAPEUTIC ACTIVITY EA 15MIN THERAPEUTIC EXERCISE JOINT MOBILIZATION VOCATIONAL CONSULTATION NEUROMUSCULAR REEDUCATION RESPIRATORY MANAGEMNT TRAINING Cristine Carpio MD [address] [place] [address] [place] [address] Phone: tel: fax: [facility] OCC THERAPY [address] [place] [address] Phone: tel: Referral ID Status Reason Start Date Expiration Date Visits Requested Visits Authorized [id number] Pending Review Consultatio [facility] 12/15/2024 05/04/2025 10 10 Reason Comments Monitoring/follow-up Reason Onset Date Comments Clinically Administered Medication 03/08/2025 03/09/25 RI PM&R / RI - PM&RabobotulinumtoxinA (Dysport) 500 units SOLR injection Reason Onset Date Comments Transfer RX request 03/09/2025 Reason Comments Procedure Specialty Diagnoses / Procedures Referred By Contac t Referred To Contact Pharmacy Diagnoses Tetraplegia (HCC) Spasm of muscle Neelima Villarreal MD [address] [place] [address] Phone: tel: fax: PHARMACY [address] [place] [phone] Phone: tel: Referral ID Status Reason Start Date Expiration Date Visits Requested Visits Authorized [id number] Authorized Pharmacy Pre Auth 03/01/2025 02/28/2026 4 4 FOR RECORDS PERTAINING TO PATIENTS WHO ARE OR HAVE BEEN ENROLLED IN A CHEMICAL DEPENDENCY/SUBSTANCEABUSE PROGRAM, SOME INFORMATION MAY BE OMITTED. This clinical summary was aggregated from multiple sources. Caution should be exercised in using it in the provision of clinical care. This summary normalizes information from multiple sources, and as a consequence, information in this document may materially change the coding, format and clinical context of patient data. In addition, data may be omitted in some cases. CLINICAL DECISIONS SHOULD BE BASED ON THE PRIMARY CLINICAL RECORDS. [facility] [employer] provides no warranty or guarantee of the accuracy or completeness of information in this document.
== END | disposition home or self-care (01) ==
LOC: SL 20:24
PROVIDERS: PCP Family Medicine; Referring Provider Nurse Practitioner Acute Care; Visit Provider Nurse Practitioner Acute Care
DX: G47.33 Obstructive sleep apnea (adult) (pediatric) (principal)
CPT/HCPCS: 95810

== ENCOUNTER → 2025-03-29 | Outpatient (CLI) | payer MEDICAID, SELFPAY ==
--- OUTSIDE RECORDS SUMMARY | 2025-03-29 19:59 | XMS RPT_ITS | CCD ---
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 [address] IG% 0.700 Normal 0.0-0.9 [facility] Comment on above: Order Comment: Order Date: 11/25/24Order Info: 018- - CBCD Result Comment: IG% - Immature Granulocytes (promyelocytes, myelocytes and metamyelocytes) > 1% indicates that a LEFT SHIFT is Present. Performed By: #### M 100.2200 #### [facility] [address] [place], [address] Lymphocytes/100 WBC (Bld) 23.3 % Normal 19-41 [facility] Comment on above: Order Comment: Order Date: 11/25/24Order Info: [id number] - CBCD Performed By: #### M 100.2200 #### [facility] [address] [place], [address] MCH (RBC) [Entitic mass] 29.6 pg Normal 27.0-32.0 [facility] Comment on above: Order Comment: Order Date: 11/25/24Order Info: [id number] - CBCD Performed By: #### M 100.2200 #### [facility] [address] [place], [address] MCHC (RBC) [Mass/Vol] 33.2 g/dL Normal 32-36 [facility] Comment on above: Order Comment: Order Date: 11/25/24Order Info: [id number] - CBCD Performed By: #### M 100.2200 #### [facility] [address] [place], [address] MCV (RBC) [Entitic vol] 89.4 fL Normal 80-94 [facility] Comment on above: Order Comment: Order Date: 11/25/24Order Info: 183- - CBCD Performed By: #### M 100.2200 #### [facility] [address] [place], [address] Monocytes/100 WBC (Bld) 4.8 % Normal 0-10 [facility] Comment on above: Order Comment: Order Date: 11/25/24Order Info: [id number] - CBCD Performed By: #### M 100.2200 #### [facility] [address] [place], [address] Neutrophils/100 WBC (Bld) 68.3 % Normal 47-70 [facility] Comment on above: Order Comment: Order Date: 11/25/24Order Info: [id number] - CBCD Performed By: #### M 100.2200 #### [facility] [address] [place], [address] Nucleated RBC (Bld) [#/Vol] 0 10*3/uL Normal 0-5 [facility] Comment on above: Order Comment: Order Date: 11/25/24Order Info: [id number] - CBCD Performed By: #### M 100.2200 #### [facility] [address] [place], [address] Platelet mean volume (Bld) [Entitic vol] 10.3 fL Normal 6.2-12.0 [facility] Comment on above: Order Comment: Order Date: 11/25/24Order Info: [id number] - CBCD Performed By: #### M 100.2200 #### [facility] [address] [place], [address] Platelets (Bld) [#/Vol] 280 10*3/uL Normal 150-450 [facility] Comment on above: Order Comment: Order Date: 11/25/24Order Info: [id number] - CBCD Performed By: #### M 100.2200 #### [facility] [address] [place], [address] RBC (Bld) [#/Vol] 4.25 10*6/uL Low 4.6-6.2 [facility] Comment on above: Order Comment: Order Date: 11/25/24Order Info: [id number] - CBCD Performed By: #### M 100.2200 #### [facility] [address] [place], [address] RDW SD 47.3 fl High 35.1-43.9 [facility] Comment on above: Order Comment: Order Date: 11/25/24Order Info: [id number] - CBCD Performed By: #### M 100.2200 #### [facility] [address] [place], [address] WBC (Bld) [#/Vol] 8.5 10*3/uL Normal 4.4-11.0 [facility] Comment on above: Order Comment: Order Date: 11/25/24Order Info: [id number] - CBCD Performed By: #### M 100.2200 #### [facility] [address] [place], [place], [address] Calculated very low density lipoprotein (VLDL) cholesterol measurementOrdered By: Markel Bell on 11-25-2024 Calculated very low density lipoprotein (VLDL) cholesterol measurement 50 mg/dL High 5-40 [facility] Carbon dioxide, total [Moles /volume] in Central venous bloodOrdered By: Markel Bell on 11-25-2024 CO2 [Moles/Vol] 25.1 mmol/L 21.0-32.0 [facility] Chloride assayOrdered By: Ese Bell on 11-25-2024 Chloride [Moles/Vol] 105 mmol/L 98-108 [facility] Comprehensive Metabolic Prof ilon 11-25-2024 Albumin [Mass/Vol] 3.5 g/dL Normal 3.5-5.0 [facility] Comment on above: Order Comment: Order Date: 11/25/24Order Info: [id number] - CMPOrder Info: [id number] - LIPIDOrder Info: [id number] - MGOrder Info: [id number] - TSH Performed By: #### M 100.2200 #### [facility] [address] [place], [place], [address] Albumin/Globulin [Mass ratio] 1.3 {ratio} Normal 0.9-2.4 [facility] Comment on above: Order Comment: Order Date: 11/25/24Order Info: [id number] - CMPOrder Info: [id number] - LIPIDOrder Info: - MGOrder Info: [id number] - TSH Performed By: #### M 100.2200 #### [facility] [address] [place], [address] ALK PHOS 96 U/L Normal 40-129 [facility] Comment on above: Order Comment: Order Date: 11/25/24Order Info: [id number] - CMPOrder Info: [id number] - LIPIDOrder Info: [id number] - MGOrder Info: [id number] - TSH Performed By: #### M 100.2200 #### [facility] [address] [place], [address] ALT [Catalytic activity/Vol] 21 U/L Normal <=46 [facility] Comment on above: Order Comment: Order Date: 11/25/24Order Info: [id number] - CMPOrder Info: [id number] - LIPIDOrder Info: [id number] - MGOrder Info: [id number] - TSH Performed By: #### M 100.2200 #### [facility] [address] [place], [address] AST [Catalytic activity/Vol] 20 U/L Normal <=37 [facility] Comment on above: Order Comment: Order Date: 11/25/24Order Info: [id number] - CMPOrder Info: [id number] - LIPIDOrder Info: [id number] - MGOrder Info: [id number] - TSH Performed By: #### M 100.2200 #### [facility] [address] [place], [address] Bilirubin [Mass/Vol] 0.28 mg/dL Normal 0.00-1.30 [facility] Comment on above: Order Comment: Order Date: 11/25/24Order Info: [id number] - CMPOrder Info: [id number] - LIPIDOrder Info: [id number] - MGOrder Info: [id number] - TSH Performed By: #### M 100.2200 #### [facility] [address] [place], [address] BUN/CRE 44.3 RATIO High 10-20 [facility] Comment on above: Order Comment: Order Date: 11/25/24Order Info: [id number] - CMPOrder Info: [id number] - LIPIDOrder Info: [id number] - MGOrder Info: [id number] - TSH Performed By: #### M 100.2200 #### [facility] [address] [place], [address] Calcium [Mass/Vol] 9.0 mg/dL Normal 7.6-11.0 [facility] Comment on above: Order Comment: Order Date: 11/25/24Order Info: [id number] - CMPOrder Info: [id number] - LIPIDOrder Info: [id number] - MGOrder Info: [id number] - TSH Performed By: #### M 100.2200 #### [facility] [address] [place], [address] Chloride [Moles/Vol] 105 mmol/L Normal 98-108 [facility] Comment on above: Order Comment: Order Date: 11/25/24Order Info: [id number] - CMPOrder Info: [id number] - LIPIDOrder Info: [id number] - MGOrder Info: [id number] - TSH Performed By: #### M 100.2200 #### [facility] [address] [place], [address] CO2 [Moles/Vol] 25.1 mmol/L Normal 21.0-32.0 [facility] Comment on above: Order Comment: Order Date: 11/25/24Order Info: [id number] - CMPOrder Info: [id number] - LIPIDOrder Info: [id number] - MGOrder Info: [id number] - TSH Performed By: #### M 100.2200 #### [facility] [address] [place], [address] Creatinine [Mass/Vol] 0.67 mg/dL Low 0.70-1.20 [facility] Comment on above: Order Comment: Order Date: 11/25/24Order Info: [id number] - CMPOrder Info: [id number] - LIPIDOrder Info: [id number] - MGOrder Info: [id number] - TSH Performed By: #### M 100.2200 #### [facility] [address] [place], [address] GAP 11 Normal 5-15 [facility] Comment on above: Order Comment: Order Date: 11/25/24Order Info: [id number] - CMPOrder Info: [id number] - LIPIDOrder Info: [id number] - MGOrder Info: [id number] - TSH Performed By: #### M 100.2200 #### [facility] [address] [place], [address] GFR/1.73 sq M.predicted among non-blacks MDRD (S/P/Bld) [Vol rate/Area] 117 mL/min/{1.73_m2} Normal >60 [facility] Comment on above: Order Comment: Order Date: 11/25/24Order Info: 86-1 - CMPOrder Info: [id number] - LIPIDOrder Info: [id number] - MGOrder Info: [id number] - TSH Result Comment: mL/m in/1.73m2 CKD-EPI Creatinine Equation (2020) Performed By: #### M 100.2200 #### [facility] [address] [place], [address] Globulin (S) [Mass/Vol] 2.7 g/dL Normal 2.2-4.2 [facility] Comment on above: Order Comment: Order Date: 11/25/24Order Info: [id number] - CMPOrder Info: [id number] - LIPIDOrder Info: [id number] - MGOrder Info: [id number] - TSH Performed By: #### M 100.2200 #### [facility] [address] [place], [address] Glucose [Mass/Vol] 124 mg/dL High 70-99 [facility] Comment on above: Order Comment: Order Date: 11/25/24Order Info: [id number] - CMPOrder Info: [id number] - LIPIDOrder Info: [id number] - MGOrder Info: [id number] - TSH Performed By: #### M 100.2200 #### [facility] [address] [place], [address] Potassium [Moles/Vol] 3.9 mmol/L Normal 3.3-5.1 [facility] Comment on above: Order Comment: Order Date: 11/25/24Order Info: 86-1 - CMPOrder Info: [id number] - LIPIDOrder Info: [id number] - MGOrder Info: [id number] - TSH Performed By: #### M 100.2200 #### [facility] [address] [place], [place], [address] Sodium [Moles/Vol] 141 mmol/L Normal 133-145 [facility] Comment on above: Order Comment: Order Date: 11/25/24Order Info: [id number] - CMPOrder Info: [id number] - LIPIDOrder Info: [id number] - MGOrder Info: [id number] - TSH Performed By: #### M 100.2200 #### [facility] [address] [place], [place], [address] T PROT 6.2 g/dL Normal 5.9-8.4 [facility] Comment on above: Order Comment: Order Date: 11/25/24Order Info: [id number] - CMPOrder Info: [id number] - LIPIDOrder Info: [id number] - MGOrder Info: 6-3 - TSH Performed By: #### M 100.2200 #### [facility] [address] [place], [place], [address] Urea nitrogen [Mass/Vol] 30 mg/dL High 4-19 [facility] Comment on above: Order Comment: Order Date: 11/25/24Order Info: [id number] - CMPOrder Info: [id number] - LIPIDOrder Info: [id number] - MGOrder Info: [id number] - TSH Performed By: #### M 100.2200 #### [facility] [address] [place], [address] Eosinophil percentageOrdered By: Markel Bell on 11-25-2024 Eosinophils/100 WBC (Bld) 2.7 % 0-5 [facility] Erythrocyte distribution wid th ratioOrdered By: Markel Bell on 11-25-2024 Erythrocyte distribution width (RBC) [Ratio] 14.6 % 11.6-14.6 [facility] Erythrocyte distribution wid th standard deviationOrdered By: Markel Bell on 11-25-2024 Erythrocyte distribution width (RBC) [Ratio] 47.3 fl High 35.1-43.9 [facility] Glomerular filtration rate ( GFR) estimation/1.73 sq m using serum, plasma, or whole bOrdered By: Markel Bell on 11-25-2024 GFR/1.73 sq M.predicted among non-blacks MDRD (S/P/Bld) [Vol rate/Area] 117 mL/min/{1.73_m2} >60 [facility] Comment on above: mL/min/1.73m2 CKD-EP I Creatinine Equation (2020) Hematocrit Auto (Bld) [Volum e fraction]Ordered By: Markel Bell on 11-25-2024 Hematocrit (Bld) [Volume fraction] 38.0 % Low 40-54 [facility] Hemoglobin measurementOrdere d By: Markel Bell on 11-25-2024 Hemoglobin (Bld) [Mass/Vol] 12.6 g/dL Low 13.0-16.5 [facility] Immature granulocytes/100 WB C Auto (Bld)Ordered By: Markel Bell on 11-25-2024 Immature granulocytes/100 WBC (Bld) 0.700 % 0.0-0.9 [facility] Comment on above: IG% - Immature Granu locytes (promyelocytes, myelocytes and metamyelocytes) > 1% indicates that a LEFT SHIFT is Present. LDL calc ser/plasOrdered By: Markel Bell on 11-25-2024 Cholesterol in LDL [Mass/Vol] 99 mg/dL [facility] Comment on above: Eqapbavcpt=132-641 m g/dL & Higher Xqel=522 mg/dL or greater Laboratory - Chemistry and C hemistry - challengeOrdered By: Markel Bell on 11-25-2024 AST [Catalytic activity/Vol] 20 U/L <38 [facility] Lipid Profileon 11-25-2024 CHOL:HDL 5.57 Normal [facility] Comment on above: Order Comment: Order Date: 11/25/24Order Info: [id number] - CMPOrder Info: [id number] - LIPIDOrder Info: [id number] - MGOrder Info: [id number] - TSH Performed By: #### M 100.2200 #### [facility] [address] [place], [address] Cholesterol [Mass/Vol] 182 mg/dL Normal <=200 [facility] Comment on above: Order Comment: Order Date: 11/25/24Order Info: 86-1 - CMPOrder Info: [id number] - LIPIDOrder Info: [id number] - MGOrder Info: [id number] - TSH Result Comment: Chol esterol level, Desirable <200 mg/dL Borderline high cholesterol 200-239 mg/dL High cholesterol >=240 mg/dL Recommendations of the NCEP Adult Treatment Panel for the following risk-cutoff thresholds for the [place] population. Performed By: #### M 100.2200 #### [facility] [address] [place], [address] Cholesterol in HDL [Mass/Vol] 33 mg/dL Low [facility] Comment on above: Order Comment: Order Date: 11/25/24Order Info: [id number] - CMPOrder Info: [id number] - LIPIDOrder Info: [id number] - MGOrder Info: [id number] - TSH Result Comment: [place] on[place] Cholesterol Education Program (NCEP) guidelines: <40 mg/dL: Low HDL-cholesterol (major risk factor for CHD) >= 60 mg/dL: High HDL-cholesterol (negative risk factor for CHD) HDL-cholesterol is affected by a number of factors, e.g. smoking, exercise, hormones, sex and age. Performed By: #### M 100.2200 #### [facility] [address] [place], [address] Cholesterol in LDL [Mass/Vol] 99 mg/dL Normal [facility] Comment on above: Order Comment: Order Date: 11/25/24Order Info: [id number] - CMPOrder Info: [id number] - LIPIDOrder Info: [id number] - MGOrder Info: [id number] - TSH Result Comment: Bord fqdrox=755-452 mg/dL Higher Gapi=551 mg/dL or greater Performed By: #### M 100.2200 #### [facility] [address] [place], [address] Cholesterol in VLDL [Mass/Vol] 50 mg/dL High 5-40 [facility] Comment on above: Order Comment: Order Date: 11/25/24Order Info: [id number]- - CMPOrder Info: [id number] - LIPIDOrder Info: [id number] - MGOrder Info: 6-3 - TSH Performed By: #### M 100.2200 #### [facility] [address] [place], [address] Triglyceride [Mass/Vol] 250 mg/dL High [facility] Comment on above: Order Comment: Order Date: 11/25/24Order Info: [id number] - CMPOrder Info: - LIPIDOrder Info: - MGOrder Info: 3 - TSH Result Comment: The drugs N-Acetylcysteine and Metamizole may falsely depress this assay. Normal range: <150 mg/dL Borderline High: 150-199 mg/dL High: 200-499 mg/dL Very High: >500 mg/dL Performed By: #### M 100.2200 #### [facility] [address] [place], [address] MCV (mean corpuscular volume ) determinationOrdered By: Markel Bell on 11-25-2024 MCV (RBC) [Entitic vol] 89.4 fL 80-94 [facility] Magnesiumon 11-25-2024 Magnesium [Mass/Vol] 2.0 mg/dL Normal 1.5-2.2 [facility] Comment on above: Order Comment: Order Date: 11/25/24Order Info: [id number] - CMPOrder Info: - LIPIDOrder Info: - MGOrder Info: 63 - TSH Performed By: #### M 100.2200 #### [facility] [address] [place], [address] Magnesium measurement (mass/ volume)Ordered By: Markel Bell on 11-25-2024 Magnesium (Unsp spec) [Mass/Vol] 2.0 mg/dL 1.5-2.2 [facility] Mean corpuscular hemoglobin (MCH) determinationOrdered By: Markel Bell on 11-25-2024 MCH (RBC) [Entitic mass] 29.6 pg 27.0-32.0 [facility] Mean corpuscular hemoglobin concentration (MCHC) determinationOrdered By: Markel Bell on 11-25-2024 MCHC (RBC) [Mass/Vol] 33.2 g/dL 32-36 [facility] Mean platelet volume determi nationOrdered By: Markel Bell on 11-25-2024 Platelet mean volume (Bld) [Entitic vol] 10.3 fL 6.2-12.0 [facility] Monocyte percentageOrdered B y: Markel Bell on 11-25-2024 Monocytes/100 WBC (Bld) 4.8 % 0-10 [facility] Neutrophil percentageOrdered By: Markel Bell on 11-25-2024 Neutrophils/100 WBC (Bld) 68.3 % 47-70 [facility] Nucleated red blood cell per centageOrdered By: Markel Bell on 11-25-2024 Nucleated RBC/100 WBC (Bld) [Ratio] 0 % 0-5 [facility] Platelet countOrdered By: Ese Bell on 11-25-2024 Platelets (Bld) [#/Vol] 280 10*3/uL 150-450 [facility] Potassium measurement (mass/ volume)Ordered By: Markel Bell on 11-25-2024 Potassium (Unsp spec) [Mass/Vol] 3.9 mmol/L 3.3-5.1 [facility] RBC Auto (Bld) [#/Vol]Ordere d By: Markel Bell on 11-25-2024 RBC (Bld) [#/Vol] 4.25 10*6/uL Low 4.6-6.2 [facility] Screening total cholesterol/ high density lipoprotein (HDL) cholesterol ratioOrdered By: Markel Bell on 11-25-2024 Cholesterol.total/Cho lesterol in HDL [Mass ratio] 5.57 {ratio} [facility] Serum creatinine measurement (mass/volume)Ordered By: Markel Bell on 11-25-2024 Creatinine [Mass/Vol] 0.67 mg/dL Low 0.70-1.20 [facility] Serum globulin measurementOr dered By: Markel Bell on 11-25-2024 Globulin (S) [Mass/Vol] 2.7 g/dL 2.2-4.2 [facility] Serum glucose measurement (m ass/volume)Ordered By: Markel Bell on 11-25-2024 Glucose [Mass/Vol] 124 mg/dL High 70-99 [facility] Serum or plasma alanine aviles otransferase (ALT) measurementOrdered By: Markel Bell on 11-25-2024 ALT [Catalytic activity/Vol] 21 U/L <47 [facility] Serum or plasma albumin dov urement (mass/volume)Ordered By: Markel Bell on 11-25-2024 Albumin [Mass/Vol] 3.5 g/dL 3.5-5.0 [facility] Serum or plasma albumin/glob ulin mass ratioOrdered By: Markel Bell on 11-25-2024 Albumin/Globulin [Mass ratio] 1.3 {ratio} 0.9-2.4 [facility] Serum or plasma alkaline nathaly sphatase measurementOrdered By: Markel Bell on 11-25-2024 ALP [Catalytic activity/Vol] 96 U/L 40-129 [facility] Serum or plasma calcium dov urement (mass/volume)Ordered By: Markel Bell on 11-25-2024 Calcium [Mass/Vol] 9.0 mg/dL 7.6-11.0 [facility] Serum or plasma cholesterol in HDL measurement (mass/volume)Ordered By: Markel Bell on 11-25-2024 Cholesterol in HDL [Mass/Vol] 33 mg/dL Low >40 [facility] Comment on above: National Cholesterol Education Program (NCEP) guidelines:<40 mg/dL: Low HDL-cholesterol (major risk factor for CHD)>= 60 mg/dL: High HDL-cholesterol (negative risk factor for CHD)HDL-cholesterol is affected by a number of factors, e.g. smoking, exercise, hormones, sex and age. Serum or plasma cholesterol measurement (mass/volume)Ordered By: Markel Bell on 11-25-2024 Cholesterol [Mass/Vol] 182 mg/dL <201 [facility] Comment on above: Cholesterol level, D esirable <200 mg/dLBorderline high cholesterol 200-239 mg/dLHigh cholesterol >=240 mg/dLRecommendations of the NCEP Adult Treatment Panel for the following risk-cutoff thresholds for the [place] population. Serum or plasma urea nitroge n measurement (mass/volume)Ordered By: Markel Bell on 11-25-2024 Urea nitrogen [Mass/Vol] 30 mg/dL High 4-19 [facility] Sodium levelOrdered By: Markel Bell on 11-25-2024 Sodium [Moles/Vol] 141 mmol/L 133-145 [facility] TSH DL <= 0.005 mIU/L QnOrde red By: Markel Bell on 11-25-2024 TSH Qn 5.940 uIU/mL High 0.300-4.200 [facility] Thyroid Stim Hormone (TSH)on 11-25-2024 TSH 5.940 uIU/mL High 0.300-4.200 [facility] Comment on above: Order Comment: Order Date: 11/25/24Order Info: [id number] - CMPOrder Info: [id number] - LIPIDOrder Info: [id number] - MGOrder Info: [id number] - TSH Performed By: #### M 100.2200 #### [facility] [address] [place], [address] Total proteinOrdered By: Jude Bell on 11-25-2024 Protein [Mass/Vol] 6.2 g/dL 5.9-8.4 [facility] Triglycerides measurementOrd ered By: Markel Bell on 11-25-2024 Triglyceride [Mass/Vol] 250 mg/dL High <199 [facility] Comment on above: The drugs N-Acetylcy steine and Metamizole may falsely depress this assay. Normal range: <150 mg/dLBorderline High: 150-199 mg/dLHigh: 200-499 mg/dLVery High: >500 mg/dL White blood cell (WBC) count Ordered By: Markel Bell on 11-25-2024 WBC (Bld) [#/Vol] 8.5 10*3/uL 4.4-11.0 [facility] Progress Noteson 11-19-2024 [employer] Authentication Interface Message Text PM AND R [...] daily. vitamin D2 ergocalciferol (DRISDOL) 1.25 MG (21807 UT) capsule Take 50,000 Units by mouth [...] past surgical history on file. Normal [facility] [employer] [facility] Telephone Encounteron 2024 [employer] Authentication Interface Message Text Mrs. Polanco called to schedule Botox as it has been approved 11/02/24 - 11/02/25. Appointment scheduled. Discussed changes to insurance 12/03 - noted 11/19 appointment Normal [facility] Wound Cultureon 11-08-2024 WC GRAM STAIN [...] TMP SMX Islt TREY <=20 S Normal [facility] Comment on above: Performed By: #### M 100.4001, M100.2000, M100.3000 #### [facility] [address] [place], [address] Culture, Anaerobic Any Sourc kerrie 11-06-2024 CUAN GRAM STAIN - L LATER AL FOOT ULCER No anaerobic bacteria isolated. Normal [facility] Comment on above: Performed By: #### M 100.4001, M100.2000, M100.3000 #### [facility] [address] [place], [address] Wound Ctr History AND Physic dat 11-05-2024 Wound Ctr History & Physical [facility] [address] [place] [address] H P Exam - Wound Care 11/05/24 1826 MR#: [id number] Acct: [id number] Name: MAIDA POLANCO Rep #: [id number] : 1980 44 From: Les Shaikh DPM [...] the lateral side of the left foot[facility] Medical History Hypertension Home Medications ???Medication ???Instructions [...] History pain docusate sodium 283 mg-benzocaine ml [place] 09/14/24 Unknown History 20 mg/5 mL enema [...] Unknown History sodium phosphates 19 gram-7 1 MT UD 09/14/24 Unknown History gram/118 mL enema [...] Recorded Date Recorded By Document 11/03/24 13:22 [facility] [id number] 11/03/24 13:30 [facility] 11/03/24 13:22 - Today's Visit Information Type of service Follow-up Visit (Physician/CREDIT CARD ASSOCIATE ) Arrival Mode Wheelchair Transfer Assistance None [...] Since Last (more content not included)... Normal [facility] Gram Stainon 11-04-2024 GS GRAM STAIN - L LATER AL FOOT ULCER Gram Stain Rare White Blood Cells No organisms seen Normal [facility] Comment on above: Performed By: #### M 100.4001, M100.2000, M100.3000 #### [facility] [address] [place], [address] Anaerobic cultureOrdered By: Les Shaikh on 11-03-2024 Bacteria identified Anaer cx Nom (Unsp spec) No anaerobic bacteria isolated. [facility] Gram stainOrdered By: Colton Shaikh on 11-03-2024 Microscopic observation Gram stain Nom (Unsp spec) [facility] Progress Noteson 11-02-2024 Mechanical Ordnance Assembler Authentication Interface Message Text SPECIALTY PHARMACY - Prior Auth APPROVED- MEDICAL BENEFIT MEDICATION DETAILS Medication(s): Dysport J0586 1500 units IM Q3M x 1 year Authorized Quantity: 4 Unit of Measure: Number of Visits Is Approval [facility] Specific?: No Insurance Payor: [employer] How was approval received?: Fax Auth Number: [id number] PA Follow Up Effective Start Date: 11/02/24 Effective End Date: 11/02/25 PA Notes: 5 units of J0586 is = to Dysport 300 unit vials x 5 for each dose The pharmacy will contact patient Maida Polanco and update him on the approval status. Pharmacy to contact patient regarding next step for medication fill. Encounter to be routed to appropriate records management technician/pharmacist for medication fill outreach. Patient questions may be directed to: [phone] option 3 Thank you, Nayana Gifford Medication Stick Inserter [facility] Specialty Pharmacy Department [phone] opt 3 Normal The [facility] System Mechanical Ordnance Assembler Authentication Interface Message Text Specialty Pharmacy PA Status Update: MEDICAL BENEFIT Medication and dosing: Dysport J0586 1500 units IM Q3M x 1 year [facility] [phone] Perform RX [phone] Rep Name: Cris Status: Called plan to confirm the 5 units of J0586 is = to Dysport 300 unit vials x 5 for each dose Pharmacy will addend this encounter with response from plan. 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 Thank you, Nayana Gifford Medication Stick Inserter Specialty Pharmacy Department [phone] opt 3 Normal [facility] Addendum Noteon 10-27-2024 Mechanical Ordnance Assembler Authentication Interface Message Text Addended by: CINDY PASTOR on: 10/27/2024 10:47 AM Modules accepted: Orders Normal [facility] Progress Noteson 10-27-2024 Mechanical Ordnance Assembler Authentication Interface Message Text Specialty Pharmacy Onboarding Note: [facility] The specialty medication has been reviewed for appropriate use, dose, route, frequency and duration. Appropriate actions will follow, which may include a prior authorization, patient assistance, and/or sending to the appropriate filling pharmacy. Updates will be made within [facility]'s [facility] Program. Appointment Date: pending- due LORETO- 10/27 appt cancelled due to denial of Botox Referral #: [id number] Provider: Neelima Villarreal MD Medication:Dysport 1500u Im q 3mo Diagnosis: G82.50 (ICD-10-CM) - Tetraparesis (HCC) M62.838 (ICD-10-CM) - Muscle spasticity Please submit to medical Additional Information:preferred neurotoxin by ins Cindy Pastor PharmD Normal [facility] Progress Noteson 10-25-2024 Mechanical Ordnance Assembler Authentication Interface Message Text SPECIALTY PHARMACY - Prior Auth Denied- MEDICAL BENEFIT Medication(s): Botox J0585 400 units IM Q3M x 1 year Insurance Payor: [facility] The pharmacy received notice that a prior authorization has been denied. Denial Reason: Required Step Therapy (Must have tried, failed or have a contraindication to : Xeomin AND Dysport) Denial Follow Up: Appeal Required Additional Notes: Thank you, Nayana Gifford Medication Stick Inserter [facility] Specialty Pharmacy Department [phone] opt 3 Normal [facility] [employer] Mechanical Ordnance Assembler Authentication Interface Message Text SPECIALTY PHARMACY - Prior Auth Submitted- MEDICAL BENEFIT Medication and dosing: Botox J0585 400 units IM Q3M x 1 year Insurance: [facility] Medicaid [phone] Provider: Cynthia Bloom MD Dept: PM AND R DX: G82.50 (ICD-10-CM) - Tetraparesis (HCC); M62.838 (ICD-10-CM) - Muscle spasticity Previous Therapy: -- Baclofen 03/22/2024 - current -- Gabapentin 03/22/2024 - current -- OT/HEP 08/20/2024 - current PA submitted on date: 10/25/2024 PORTAL SUBMISSION: SITE: [facility] REF#: N/A FAX #: Pharmacy will addend this encounter with response from plan. Thank you, Nayana Gifford Medication Stick Inserter Specialty Pharmacy Department [phone] opt 3 Normal [facility] [employer] [facility] Mechanical Ordnance Assembler Authentication Interface Message Text SPECIALTY PHARMACY - Prior Auth Denied- PHARMACY BENEFIT Medication(s): Botox J0585 400 units IM Q3M x 1 year Insurance Payor: [facility] The pharmacy received notice that a prior authorization has been denied. Denial Reason: Required Step Therapy (Must have tried, failed or have a contraindication to 2 preferred: Cyclobenzaprine, Dantrolene and Tizanidine) Denial Follow Up: Appeal Required Additional Notes: Thank you, Nayana Gifford Medication Stick Inserter [facility] Specialty Pharmacy Department [phone] opt 3 Normal [facility] [facility] Progress Noteson 10-22-2024 Mechanical Ordnance Assembler Authentication Interface Message Text SPECIALTY PHARMACY - Prior Auth Submitted- PHARMACY BENEFIT Medication and dosing: Botox J0585 400 units IM Q3M x 1 year Insurance: [employer] [phone] Provider: Cynthia Bloom MD Dept: PM AND R DX: G82.50 (ICD-10-CM) - Tetraparesis (HCC); M62.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 Thank you, Nayana Gifford Medication Stick Inserter Specialty Pharmacy Department [phone] opt 3 Normal [facility] [employer] [facility] Progress Noteson 10-19-2024 Mechanical Ordnance Assembler Authentication Interface Message Text Specialty Pharmacy Onboarding Note: An order has been received by [facility]'s Specialty Pharmacy. The specialty medication has been reviewed for appropriate use, dose, route, frequency and duration. Appropriate actions will follow, which may include a prior authorization, patient assistance, and/or sending to the appropriate filling pharmacy. Updates will be made within [employer]'s [employer] Program. Appt: 10/27- NEW INS Referral: [id number] Provider: Cynthia Bloom MD Medication: Botox 400u q 3 mo Diagnosis: G82.50 (ICD-10-CM) - Tetraparesis (HCC) M62.838 (ICD-10-CM) - Muscle spasticity Benefit: pharmacy Cindy Pastor PharmD Normal [facility] [facility] Telephone Encounteron 2024 Mechanical Ordnance Assembler Authentication Interface Message Text Need prescription for Gemtesa tablets to go to [facility] [address] [place] [address]. Normal [facility] [facility] Telephone Encounteron 2024 Mechanical Ordnance Assembler Authentication Interface Message Text Prior Authorization Submitted: A prior authorization has been submitted to your insurance for Vibegron 75 MG You will be notified when a final determination from your insurance plan has been received. Thank you, [facility] Prior Authorization Team Normal [facility] [facility] Culture, Anaerobic Any Sourc kerrie 10-11-2024 CUAN LEFT LAT FOOT No anaerobic bacteria isolated. Normal [facility] Comment on above: Performed By: #### M 100.2000, M100.3000, M100.4001 #### [facility] [address] [place], [place], [id number] Urine Cultureon 10-09-2024 [facility] Urine Culture Urine Culture Proteus mirabilis [place] Count >100,000 Proteus mirabilis: REACTION Ampicillin Islt TREY <=2 Ampicillin+Sulbac Islt TREY <=2 S Cefepime Islt TREY <=0.12 S cefTRIAXone Islt TREY <=0.25 S Ciprofloxacin Islt TREY <=0.06 S Gentamicin Islt TREY <=1 S levoFLOXacin Islt TREY <=0.12 S Meropenem Islt RTEY 1 S Nitrofurantoin Islt TREY 128 R Pip+Tazo Islt TREY <=4 S TMP SMX Islt TREY <=20 S Normal [facility] Comment on above: Performed By: #### M 100.2200 #### [facility] [address] [place], [address] Wound Cultureon 10-08-2024 WC LEFT LAT FOOT Possible skin contamination, further Identification and sensitivity will be performed only by physician's request. Staphylococcus caprae Amount Growth Rare Normal [facility] Comment on above: Performed By: #### M 100.2000, M100.3000, M100.4001 #### [facility] [address] [place], [address] Foot min 3 Viewson 5 Foot min [address] [facility] Imaging Services [address] [place] [address] Foot min 3 Views MR#: [id number] Acct: [id number] Name: MAIDA POLANCO Rep #: [id number] : 1980 M 44 From: Juan Carlos Amor MD PCP: Dr. Markel Bell MD Status: REG CLI Study: Foot min 3 Views Date of Exam: 10/07/24 Exam# [id number] Ordering Dr: German Finney DPM PROCEDURE: FOOT [...] overlying the 5th MTP joint. Reading Location: [facility] CC: DPMychal Finney; Dr. Markel Bell MD Shirring Machine Operator: Signed Normal [facility] Urine cultureOrdered By: Lc Finney on 10-07-2024 Bacteria identified Cx Nom (U) Proteus mirabilis Abnormal [facility] Anaerobic cultureOrdered By: German Finney on 10-05-2024 Bacteria identified Anaer cx Nom (Unsp spec) No anaerobic bacteria isolated. [facility] Gram Stainon 10-05-2024 GS LEFT LAT FOOT Gram Stain No organisms seen No Epithelial cells Normal [facility] Comment on above: Performed By: #### M 100.2000, M100.3000, M100.4001 #### [facility] [address] [place], [address] Gram stainOrdered By: German Finney on 10-05-2024 Microscopic observation Gram stain Nom (Unsp spec) [facility] Progress Noteson 09-28-2024 Mechanical Ordnance Assembler Authentication Interface Message Text Patient was identified by name and date of . Lakshmi Peace RN DEVICE CLINIC INTERROGATION Device Type: Medtronic Micra AV2 implanted 01-13-[address] Aldana at [facility]. Indication: implanted for sinus node dysfunction. BATTERY VOLTAGE: 3.12 Volts, >10 years LEAD IMPEDANCE: Ventricle: 590 Ohms PACING THRESHOLD: Ventricle: 0.63v @ 0.24ms SENSING THRESHOLD: R-Wave: 15 mV INTRINSIC RHYTHM: NSR PERCENT PACING: AM-Vs 0%, VS only 95.8%, AM-CRIME INVESTIGATOR SPECIAL AGENT 0%, V-pac only 4.2% COMMENTS: Device check to establish care. Battery and leadless parameters are stable. NANDO test completed. No changes made. Remotes requested to be transferred. Next Remote Device Check: 3 months x 3 Next In Clinic Device Check: 1 year or sooner as needed. Normal [facility] [employer] [facility] Patient Instructionson 09-24 Mechanical Ordnance Assembler Authentication Interface Message Text POST URODYNAMIC TESTING [...] burning on urination, call the office at [phone] Friday through Friday 8:00 AM to 4:30 PM. For emergencies, go the Emergency Room. If you do not already have a follow up appointment scheduled with your physician, call the office at [phone] to schedule one. Normal [facility] Progress Noteson 09-24-2024 Mechanical Ordnance Assembler Authentication Interface Message Text SPINAL CORD INJURY [...] daily. vitamin D2 ergocalciferol (DRISDOL) 1.25 MG (57223 UT) capsule Take 50,000 Units by mouth [...] ac (more content not included)... Normal [facility] [facility] Telephone Encounteron 2024 Mechanical Ordnance Assembler Authentication Interface Message Text Phone call returned and questions answered regarding pacemaker. Normal [facility] Telephone Encounteron 2024 Mechanical Ordnance Assembler Authentication Interface Message Text of the pt [...] place before they travel FU number is [phone] Normal [facility] [employer] [facility] Progress Noteson 09-17-2024 Mechanical Ordnance Assembler Authentication Interface Message Text SPECIALTY PHARMACY - Prior Auth APPROVED- MEDICAL BENEFIT MEDICATION DETAILS Medication(s): Botox J0585 400u q 3 mo Authorized Quantity: 4 Unit of Measure: Number of Visits Is Approval [facility] Specific?: No Insurance Payor: [employer] How was approval received?: Latent Auth Number: [id number] Effective Start Date: 09/10/24 Effective End Date: 09/09/25 The pharmacy will contact patient Maida Polanco and update him on the approval status. Pharmacy to contact patient regarding next step for medication fill. Encounter to be routed to appropriate records management technician/pharmacist for medication fill outreach. Patient questions may be directed to: [phone] option 3 Thank you, Nayana Gifford Medication Stick Inserter [facility] Specialty Pharmacy Department [phone] opt 3 Normal [facility] Wound Ctr History AND Physic dat 09-14-2024 Wound Ctr History & Physical [facility] [address] [place] [address] H P Exam - Wound Care 09/14/24 1143 MR#: [id number] Acct: [id number] Name: MAIDA POLANCO Rep #: [id number] : 1980 44 From: German Finney DPM [...] has no pain today. No other complaints[facility] History (Updated 09/14/24 @ 11:45 by [...] History pain docusate sodium 283 mg-benzocaine ml MT 09/14/24 Unknown History 20 mg/5 mL enema [...] Unknown History sodium phosphates 19 gram-7 1 MT UD 09/14/24 Unknown History gram/118 mL enema [...] Recorded Date Recorded By Document 09/14/24 10:35 [id number] 09/14/24 10:53 KW 09/14/24 10:35 - Today's [...] Air Blood (more content not included)... Normal [facility] Progress Noteson 09-10-2024 Mechanical Ordnance Assembler Authentication Interface Message Text SPECIALTY PHARMACY - Prior Auth Submitted- MEDICAL BENEFIT Medication and dosing: Botox J0585 400u q 3 mo Insurance: [employer] P: Provider: Cynthia Bloom MD Dept: PM AND R DX: G82.50 (ICD-10-CM) - Tetraparesis (HCC); M62.838 (ICD-10-CM) - Muscle spasticity Previous Therapy: -- Baclofen 03/22/2024 - current -- Gabapentin 03/22/2024 - current PA submitted on date: 09/10/2024 EPIC WQ- LATENT: Miller- [id number] Pharmacy will addend this encounter with response from plan. Thank you, Nayana Gifford Medication Stick Inserter Specialty Pharmacy Department [phone] opt 3 Normal [facility] [facility] Progress Noteson 09-08-2024 Mechanical Ordnance Assembler Authentication Interface Message Text SPECIALTY PHARMACY - Prior Auth Denied- PHARMACY BENEFIT Medication and dosing: Botox J0585 400u q 3 mo 09/08/24 1538 PRIOR AUTHORIZATION OUTCOME Specialty Med PA Outcome Denied Insurance Payor [facility] Denial Reason Required Step Therapy (Must have tried, failed or have a contraindication to: Xeomin) MEDICATION DETAILS Medication(s) Botox J0585 400u q 3 mo The pharmacy received notice that a prior authorization has been denied. 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 Thank you, Nayana Gifford Medication Stick Inserter Specialty Pharmacy Department [phone] opt 3 Normal [facility] [employer] [facility] Hemoglobin A1con 08-27-2024 HbA1c (Bld) [Mass fraction] 5.0 % Normal <=5.6 [facility] Comment on above: Order Comment: TRAMAINE Soto ADD A1C TO BLOOD DRAWN 08/26/24 PER Result Comment: Norm al < 5.7 % Prediabetic 5.7 - 6.4 % Diabetic >or= 6.5 % Please note range changes. Performed By: #### M 100.2200 #### [facility] [address] [facility] [place], [address] Hemoglobin A1c percentageOrd ered By: Markel Bell on 08-27-2024 HbA1c (Bld) [Mass fraction] 5.0 % <5.7 [facility] Comment on above: Normal < 5.7 % Predi abetic 5.7 - 6.4 % Diabetic >or= 6.5 % Please note range changes. Absolute lymphocyte countOrd ered By: Markel Bell on 08-26-2024 Lymphocytes Auto (Unsp spec) [#/Vol] 2.67 10*3/uL 0.83-4.51 [facility] Absolute neutrophil countOrd ered By: Markel Bell on 08-26-2024 Neutrophils (Bld) [#/Vol] 8.3 10*3/uL High 2.0-7.7 [facility] Anion gap in Serum or Plasma Ordered By: Markel Bell on 08-26-2024 Anion gap [Moles/Vol] 13 mmol/L 5-15 [facility] Automated lymphocyte count a s percentage of total leukocytesOrdered By: Markel Bell on 08-26-2024 Lymphocytes/100 WBC Auto (Unsp spec) 22.1 % 19-41 [facility] BUN/creatinine ratioOrdered By: Markel Arabella on 08-26-2024 Urea nitrogen/Creatinine [Mass ratio] 52.0 mg/mg High 10-20 [facility] Basophil percentageOrdered B y: Markel Bell on 08-26-2024 Basophils/100 WBC (Bld) 0.3 % 0-1 [facility] Bilirubin, totalOrdered By: Markel Bell on 08-26-2024 Bilirubin [Mass/Vol] 0.23 mg/dL 0.00-1.30 [facility] CBC W/Diff, Automatedon 08-04 Absolute Lymph 2.67 X10 3/uL Normal 0.83-4.51 [facility] Comment on above: Performed By: #### M 100.2200 #### [facility] [address] [place], [address] Absolute Neut 8.3 X10 3/uL High 2.0-7.7 [facility] Comment on above: Performed By: #### M 100.2200 #### [facility] [address] [place], [address] Basophils/100 WBC (Bld) 0.3 % Normal 0-1 [facility] Comment on above: Performed By: #### M 100.2200 #### [facility] [address] [place], [address] Eosinophils/100 WBC (Bld) 1.2 % Normal 0-5 [facility] Comment on above: Performed By: #### M 100.2200 #### [facility] [address] [place], [address] Erythrocyte distribution width (RBC) [Ratio] 15.3 % High 11.6-14.6 [facility] Comment on above: Performed By: #### M 100.2200 #### [facility] [address] [place], [address] Hematocrit (Bld) [Volume fraction] 40.2 % Normal 40-54 [facility] Comment on above: Performed By: #### M 100.2200 #### [facility] [address] [place], [address] Hemoglobin (Bld) [Mass/Vol] 13.0 g/dL Normal 13.0-16.5 [facility] Comment on above: Performed By: #### M 100.2200 #### [facility] [address] [place], [address] IG% 0.600 Normal 0.0-0.9 [facility] Comment on above: Result Comment: IG% - Immature Granulocytes (promyelocytes, myelocytes and metamyelocytes) > 1% indicates that a LEFT SHIFT is Present. Performed By: #### M 100.2200 #### [facility] [address] [place], [address] Lymphocytes/100 WBC (Bld) 22.1 % Normal 19-41 [facility] Comment on above: Performed By: #### M 100.2200 #### [facility] [address] [place], [address] MCH (RBC) [Entitic mass] 29.1 pg Normal 27.0-32.0 [facility] Comment on above: Performed By: #### M 100.2200 #### [facility] [address] [place], [address] MCHC (RBC) [Mass/Vol] 32.3 g/dL Normal 32-36 [facility] Comment on above: Performed By: #### M 100.2200 #### [facility] [address] [place], [address] MCV (RBC) [Entitic vol] 89.9 fL Normal 80-94 [facility] Comment on above: Performed By: #### M 100.2200 #### [facility] [address] [place], [address] Monocytes/100 WBC (Bld) 7.3 % Normal 0-10 [facility] Comment on above: Performed By: #### M 100.2200 #### [facility] [address] [place], [address] Neutrophils/100 WBC (Bld) 68.5 % Normal 47-70 [facility] Comment on above: Performed By: #### M 100.2200 #### [facility] [address] [place], [address] Nucleated RBC (Bld) [#/Vol] 0 10*3/uL Normal 0-5 [facility] Comment on above: Performed By: #### M 100.2199 #### [facility] [address] [place], [address] Platelet mean volume (Bld) [Entitic vol] 10.4 fL Normal 6.2-12.0 [facility] Comment on above: Performed By: #### M 100.0 #### [facility] [address] [place], [address] Platelets (Bld) [#/Vol] 303 10*3/uL Normal 150-450 [facility] Comment on above: Performed By: #### M 100.2200 #### [facility] [address] [place], [address] RBC (Bld) [#/Vol] 4.47 10*6/uL Low 4.6-6.2 [facility] Comment on above: Performed By: #### M 100.2200 #### [facility] [address] [place], [address] RDW SD 50.4 fl High 35.1-43.9 [facility] Comment on above: Performed By: #### M 100.2200 #### [facility] [address] [place], [address] WBC (Bld) [#/Vol] 12.1 10*3/uL High 4.4-11.0 [facility] Comment on above: Performed By: #### M 100.2200 #### [facility] [address] [place], [address] Calculated very low density lipoprotein (VLDL) cholesterol measurementOrdered By: Markel Bell on 08-26-2024 Calculated very low density lipoprotein (VLDL) cholesterol measurement 36 mg/dL 5-40 [facility] Carbon dioxide, total [Moles /volume] in Central venous bloodOrdered By: Markel Bell on 08-26-2024 CO2 [Moles/Vol] 22.3 mmol/L 21.0-32.0 [facility] Chloride assayOrdered By: Ese Bell on 08-26-2024 Chloride [Moles/Vol] 104 mmol/L 98-108 [facility] [facility] Comprehensive Metabolic Prof ilon 08-26-2024 Albumin [Mass/Vol] 3.8 g/dL Normal 3.5-5.0 [facility] Comment on above: Performed By: #### M 100.2200 #### [facility] [address] [place], [address] Albumin/Globulin [Mass ratio] 1.3 {ratio} Normal 0.9-2.4 [facility] Comment on above: Performed By: #### M 100.2200 #### [facility] [address] [place], [address] ALK PHOS 90 U/L Normal 40-129 [facility] Comment on above: Performed By: #### M 100.2200 #### [facility] [address] [place], [address] ALT [Catalytic activity/Vol] 61 U/L High <=46 [facility] Comment on above: Performed By: #### M 100.2200 #### [facility] [address] [place], [address] AST [Catalytic activity/Vol] 23 U/L Normal <=37 [facility] Comment on above: Performed By: #### M 100.2200 #### [facility] [address] [place], [address] Bilirubin [Mass/Vol] 0.23 mg/dL Normal 0.00-1.30 [facility] Comment on above: Performed By: #### M 100.2200 #### [facility] [address] [place], [address] BUN/CRE 52.0 RATIO High 10-20 [facility] Comment on above: Performed By: #### M 100.2200 #### [facility] [address] [place], [address] Calcium [Mass/Vol] 9.4 mg/dL Normal 7.6-11.0 [facility] Comment on above: Performed By: #### M 100.2200 #### [facility] [address] [place], [address] Chloride [Moles/Vol] 104 mmol/L Normal 98-108 [facility] Comment on above: Performed By: #### M 100.2200 #### [facility] [address] [place], [address] CO2 [Moles/Vol] 22.3 mmol/L Normal 21.0-32.0 [facility] Comment on above: Performed By: #### M 100.2200 #### [facility] [address] [place], [address] Creatinine [Mass/Vol] 0.67 mg/dL Low 0.70-1.20 [facility] Comment on above: Performed By: #### M 100.2200 #### [facility] [address] [place], [address] GAP 13 Normal 5-15 [facility] Comment on above: Performed By: #### M 100.2200 #### [facility] [address] [place], [address] GFR/1.73 sq M.predicted among non-blacks MDRD (S/P/Bld) [Vol rate/Area] 117 mL/min/{1.73_m2} Normal >60 [facility] Comment on above: Result Comment: mL/m in/1.73m2 CKD-EPI Creatinine Equation (2020) Performed By: #### M 100.2200 #### [facility] [address] [place], [address] Globulin (S) [Mass/Vol] 3.0 g/dL Normal 2.2-4.2 [facility] Comment on above: Performed By: #### M 100.2200 #### [facility] [address] [place], [address] Glucose [Mass/Vol] 123 mg/dL High 70-99 [facility] Comment on above: Performed By: #### M 100.2200 #### [facility] [address] [place], [address] Potassium [Moles/Vol] 4.0 mmol/L Normal 3.3-5.1 [facility] Comment on above: Performed By: #### M 100.2200 #### [facility] [address] [place], [address] Sodium [Moles/Vol] 139 mmol/L Normal 133-145 [facility] Comment on above: Performed By: #### M 100.2200 #### [facility] [address] [place], [address] T PROT 6.8 g/dL Normal 5.9-8.4 [facility] Comment on above: Performed By: #### M 100.2200 #### [facility] [address] [place], [address] Urea nitrogen [Mass/Vol] 35 mg/dL High 4-19 [facility] Comment on above: Performed By: #### M 100.2200 #### [facility] [address] [place], [address] Eosinophil percentageOrdered By: Markel Bell on 08-26-2024 Eosinophils/100 WBC (Bld) 1.2 % 0-5 [facility] Erythrocyte distribution wid th ratioOrdered By: Markel Bell on 08-26-2024 Erythrocyte distribution width (RBC) [Ratio] 15.3 % High 11.6-14.6 [facility] Erythrocyte distribution wid th standard deviationOrdered By: Markel Bell on 08-26-2024 Erythrocyte distribution width (RBC) [Ratio] 50.4 fl High 35.1-43.9 [facility] Ferritinon 08-26-2024 Ferritin [Mass/Vol] 151 ng/mL Normal 37-417 [facility] Comment on above: Performed By: #### M 100.2200 #### [facility] [address] [place], [address] Folate [Mass/volume] in Seru m or PlasmaOrdered By: Markel Bell on 08-26-2024 Folate [Mass/Vol] 5.46 ng/mL 4.60-34.80 [facility] Folates,Serum (Folic Acid)on 08-26-2024 FOLATES,SERUM 5.46 ng/mL Normal 4.60-34.80 [facility] Comment on above: Order Comment: N Performed By: #### M 100.2200 #### [facility] [address] [place], [address] Glomerular filtration rate ( GFR) estimation/1.73 sq m using serum, plasma, or whole bOrdered By: Markel Bell on 08-26-2024 GFR/1.73 sq M.predicted among non-blacks MDRD (S/P/Bld) [Vol rate/Area] 117 mL/min/{1.73_m2} >60 [facility] Comment on above: mL/min/1.73m2 CKD-EP I Creatinine Equation (2020) Hematocrit Auto (Bld) [Volum e fraction]Ordered By: Markel Bell on 08-26-2024 Hematocrit (Bld) [Volume fraction] 40.2 % 40-54 [facility] Hemoglobin measurementOrdere d By: Markel Bell on 08-26-2024 Hemoglobin (Bld) [Mass/Vol] 13.0 g/dL 13.0-16.5 [facility] Immature granulocytes/100 WB C Auto (Bld)Ordered By: Markel Bell on 08-26-2024 Immature granulocytes/100 WBC (Bld) 0.600 % 0.0-0.9 [facility] Comment on above: IG% - Immature Granu locytes (promyelocytes, myelocytes and metamyelocytes) > 1% indicates that a LEFT SHIFT is Present. Iron measurement (mass/mass) Ordered By: Markel Bell on 08-26-2024 Iron (Unsp spec) [Mass/Mass] 70 ug/dL 65-175 [facility] Iron+Iron Binding Capacityon 08-26-2024 Iron [Mass/Vol] 70 ug/dL Normal 65-175 [facility] Comment on above: Performed By: #### M 100.2200 #### [facility] [address] [place], [address] IRON SATURATION 19.0 Normal 9-55 [facility] Comment on above: Performed By: #### M 100.2200 #### [facility] [address] [place], [address] TIBC 360 ug/dL Normal 250-450 [facility] Comment on above: Performed By: #### M 100.2200 #### [facility] [address] [place], [address] UIBC 290 ug/dL Normal 228-428 [facility] Comment on above: Performed By: #### M 100.2200 #### [facility] [address] [place], [address] LDL calc ser/plasOrdered By: Markel Bell on 08-26-2024 Cholesterol in LDL [Mass/Vol] 89 mg/dL [facility] Comment on above: Jnadarfrqf=429-439 m g/dL & Higher Hrky=868 mg/dL or greater Laboratory - Chemistry and C hemistry - challengeOrdered By: Markel Bell on 08-26-2024 AST [Catalytic activity/Vol] 23 U/L <38 [facility] Lipid Profileon 08-26-2024 CHOL:HDL 4.57 Normal [facility] Comment on above: Performed By: #### M 100.2200 #### [facility] [address] [place], [address] Cholesterol [Mass/Vol] 161 mg/dL Normal <=200 [facility] Comment on above: Result Comment: Chol esterol level, Desirable <200 mg/dL Borderline high cholesterol 200-239 mg/dL High cholesterol >=240 mg/dL Recommendations of the NCEP Adult Treatment Panel for the following risk-cutoff thresholds for the [place] population. Performed By: #### M 100.2200 #### [facility] [address] [place], [address] Cholesterol in HDL [Mass/Vol] 35 mg/dL Low [facility] Comment on above: Result Comment: Willa onal Cholesterol Education Program (NCEP) guidelines: <40 mg/dL: Low HDL-cholesterol (major risk factor for CHD) >= 60 mg/dL: High HDL-cholesterol (negative risk factor for CHD) HDL-cholesterol is affected by a number of factors, e.g. smoking, exercise, hormones, sex and age. Performed By: #### M 100.2200 #### [facility] [address] [place], [address] Cholesterol in LDL [Mass/Vol] 89 mg/dL Normal [facility] Comment on above: Result Comment: Bord pkngas=864-146 mg/dL Higher Tlip=466 mg/dL or greater Performed By: #### M 100.2200 #### [facility] [address] [place], [place], [address] Cholesterol in VLDL [Mass/Vol] 36 mg/dL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 not have a coefficient for race that conforms to the NKF-ASN Task Force Recommendations. Performed By: #### 4 6126 #### LAB [address] [place], [place] [address] Les Malone M.D. [id number] Urea nitrogen [Mass/Vol] 24 mg/dL Normal 8-[address] [facility] Comment on above: Order Comment: [facility] has implemented the eGFR calculation approach that does not have a coefficient for race that conforms to the NKF-ASN Task Force Recommendations. Performed By: #### 4 6126 #### LAB [address] [address] Les Malone M.D. [id number] Urea nitrogen/Creatinine [Mass ratio] 38.7 mg/mg High 10.0-20.[address] [facility] Comment on above: Order Comment: [facility] has implemented the eGFR calculation approach that does not have a coefficient for race that conforms to the NKF-ASN Task Force Recommendations. Performed By: #### 4 6126 #### LAB [address] [address] Les Malone M.D. [id number] CT HEAD OR BRAIN WITHOUT CON TRASTon 06-28-2024 CT HEAD OR BRAIN WITHOUT CONTRAST Normal [facility] Comment on above: Order Comment: Injur y/Trauma or Illness?:Illness/OtherHow long have you had these symptoms (acute/chronic)?:AcuteReason for exam?:Memory lossType of Exam?:InitialAdditional signs and symptoms?:. ED Prov Noteon 06-28-2024 ED Prov Note Normal [facility] ED Prov Note Normal [facility] TSH WITH REFLEX FREE T4on TSH Qn 3.13 m[IU]/L Normal 0.27-4.[address] [facility] Comment on above: Performed By: #### 4 6612 #### LAB [address] [address] Les Malone M.D. [id number] URINALYSISon 06-28-2024 BACTERIA, URINE Many Abnormal None Seen [facility] Comment on above: Order Comment: Micro scopic examination is performed on all urinalysis samples and only positive findings are reported. The test for blood on the chemical analytic portion of urinalysis may also be positive due to hemoglobinuria and myoglobinuria and if red blood cells are present they are quantified by microscopic examination. Performed By: #### 4 6625 #### LAB [address] [address] Les Malone M.D. [id number] BILIRUBIN, URINE Negative Normal Negative [facility] Comment on above: Order Comment: Micro scopic examination is performed on all urinalysis samples and only positive findings are reported. The test for blood on the chemical analytic portion of urinalysis may also be positive due to hemoglobinuria and myoglobinuria and if red blood cells are present they are quantified by microscopic examination. Performed By: #### 4 6625 #### LAB [address] [place] [address] Les Malone M.D. [id number] BLOOD, URINE Negative Normal Negative [facility] Comment on above: Order Comment: Micro scopic examination is performed on all urinalysis samples and only positive findings are reported. The test for blood on the chemical analytic portion of urinalysis may also be positive due to hemoglobinuria and myoglobinuria and if red blood cells are present they are quantified by microscopic examination. Performed By: #### 4 [id number] #### LAB [address] [address] Les Malone M.D. [id number] Clarity (U) Hazy Abnormal Clear [facility] Comment on above: Order Comment: Micro scopic examination is performed on all urinalysis samples and only positive findings are reported. The test for blood on the chemical analytic portion of urinalysis may also be positive due to hemoglobinuria and myoglobinuria and if red blood cells are present they are quantified by microscopic examination. Performed By: #### 4 6625 #### LAB [address] [address] Les Malone M.D. [id number] Color (U) Yellow Normal Colorless, Yellow [facility] Comment on above: Order Comment: Micro scopic examination is performed on all urinalysis samples and only positive findings are reported. The test for blood on the chemical analytic portion of urinalysis may also be positive due to hemoglobinuria and myoglobinuria and if red blood cells are present they are quantified by microscopic examination. Performed By: #### 4 [id number] #### LAB [address] [address] Les Malone M.D. [id number] Glucose Ql (U) Negative Normal Negative [facility] Comment on above: Order Comment: Micro scopic examination is performed on all urinalysis samples and only positive findings are reported. The test for blood on the chemical analytic portion of urinalysis may also be positive due to hemoglobinuria and myoglobinuria and if red blood cells are present they are quantified by microscopic examination. Performed By: #### 4 6625 #### LAB [address] [place] [address] Les Malone M.D. [id number] Ketones Ql (U) Negative Normal Negative [facility] Comment on above: Order Comment: Micro scopic examination is performed on all urinalysis samples and only positive findings are reported. The test for blood on the chemical analytic portion of urinalysis may also be positive due to hemoglobinuria and myoglobinuria and if red blood cells are present they are quantified by microscopic examination. Performed By: #### 4 6625 #### LAB [address] [place] [address] Les Malone M.D. [id number] Leukocyte esterase Test strip Ql (U) Large Abnormal Negative [facility] Comment on above: Order Comment: Micro scopic examination is performed on all urinalysis samples and only positive findings are reported. The test for blood on the chemical analytic portion of urinalysis may also be positive due to hemoglobinuria and myoglobinuria and if red blood cells are present they are quantified by microscopic examination. Performed By: #### 4 6625 #### LAB [address] [address] Les Malone M.D. [id number] MUCUS, URINE Many Abnormal None Seen, Rare [facility] Comment on above: Order Comment: Micro scopic examination is performed on all urinalysis samples and only positive findings are reported. The test for blood on the chemical analytic portion of urinalysis may also be positive due to hemoglobinuria and myoglobinuria and if red blood cells are present they are quantified by microscopic examination. Performed By: #### 4 6625 #### LAB [address] [place] [address] Les Malone M.D. [id number] NITRITE, URINE Positive Abnormal Negative [facility] Comment on above: Order Comment: Micro scopic examination is performed on all urinalysis samples and only positive findings are reported. The test for blood on the chemical analytic portion of urinalysis may also be positive due to hemoglobinuria and myoglobinuria and if red blood cells are present they are quantified by microscopic examination. Performed By: #### 4 6625 #### LAB [address] [place] [address] Les Malone M.D. [id number] pH (U) 5.5 [pH] Normal 5.0-7.[address] [facility] Comment on above: Order Comment: Micro scopic examination is performed on all urinalysis samples and only positive findings are reported. The test for blood on the chemical analytic portion of urinalysis may also be positive due to hemoglobinuria and myoglobinuria and if red blood cells are present they are quantified by microscopic examination. Performed By: #### 4 6625 #### LAB [address] [address] Les Malone M.D. [id number] PROTEIN, URINE Negative Normal Negative [facility] Comment on above: Order Comment: Micro scopic examination is performed on all urinalysis samples and only positive findings are reported. The test for blood on the chemical analytic portion of urinalysis may also be positive due to hemoglobinuria and myoglobinuria and if red blood cells are present they are quantified by microscopic examination. Performed By: #### 4 6625 #### LAB [address] [address] Les Malone M.D. [id number] RBC LM.HPF (Urine sed) [#/Area] 3 /[HPF] Normal 0-[address] [facility] Comment on above: Order Comment: Micro scopic examination is performed on all urinalysis samples and only positive findings are reported. The test for blood on the chemical analytic portion of urinalysis may also be positive due to hemoglobinuria and myoglobinuria and if red blood cells are present they are quantified by microscopic examination. Performed By: #### 4 6625 #### LAB [address] [address] Les Malone M.D. [id number] RENAL EPITHELIAL < High 0-0 [facility] Comment on above: Order Comment: Micro scopic examination is performed on all urinalysis samples and only positive findings are reported. The test for blood on the chemical analytic portion of urinalysis may also be positive due to hemoglobinuria and myoglobinuria and if red blood cells are present they are quantified by microscopic examination. Performed By: #### 4 6625 #### LAB [address] [address] Les Malone M.D. [id number] Specific gravity (U) [Rel density] 1.026 High 1.005-1.[address] [facility] Comment on above: Order Comment: Micro scopic examination is performed on all urinalysis samples and only positive findings are reported. The test for blood on the chemical analytic portion of urinalysis may also be positive due to hemoglobinuria and myoglobinuria and if red blood cells are present they are quantified by microscopic examination. Performed By: #### 4 6625 #### LAB [address] [address] Les Malone M.D. [id number] SQUAMOUS EPITHELIAL 2 /hpf Normal 0-4 [facility] Comment on above: Order Comment: Micro scopic examination is performed on all urinalysis samples and only positive findings are reported. The test for blood on the chemical analytic portion of urinalysis may also be positive due to hemoglobinuria and myoglobinuria and if red blood cells are present they are quantified by microscopic examination. Performed By: #### 4 6625 #### LAB [address] [address] Les Malone M.D. [id number] UROBILINOGEN, URINE <2.0 Normal <2.0 [facility] Comment on above: Order Comment: Micro scopic examination is performed on all urinalysis samples and only positive findings are reported. The test for blood on the chemical analytic portion of urinalysis may also be positive due to hemoglobinuria and myoglobinuria and if red blood cells are present they are quantified by microscopic examination. Performed By: #### 4 6625 #### LAB [address] [place], [place] [address] Les Malone M.D. [id number] WBC LM.HPF (Urine sed) [#/Area] 68 /[HPF] High 0-[address] [facility] Comment on above: Order Comment: Micro scopic examination is performed on all urinalysis samples and only positive findings are reported. The test for blood on the chemical analytic portion of urinalysis may also be positive due to hemoglobinuria and myoglobinuria and if red blood cells are present they are quantified by microscopic examination. Performed By: #### 4 6625 ####[facility] [address] [place], [place] [address] Les Malone M.D. 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 Normal [employer] Progress Noteson 06-11-2024 [employer] Authentication Interface Message Text SPINAL CORD INJURY CLINIC Visit date: 06/14/2024 PCP: No primary care provider on file. CC: Comprehensive first visit of spinal cord injury and resultant complications, want to establish care in [facility] related to their spinal cord injury HPI: Name: Maida Polanco Age: [age] year old Sex: male 06/14/2024 SCI Data Injury Date 12/29/2023 NLI C4 AIS A Maida Polanco is a 43 y.o. 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 Per [...] rib fractures. He underwent inpatient rehabilitation at [facility] from February 18, 2024 through March 24, 2024 after which time he was discharged home with his family. Patient was accompanied by his , . The patient gave permission to discuss their medical information, including PHI, in their presence. Interim HPI since dicharge from rehab hospital ([facility]) -No hospitalization and ill ness since discharge -No falls, no manning - Recent UTI- completed 7 Days course of oral antibiotics this week . -05/10/24- IVF filter removed by IR at [facility] -04/09/2024-Seen by Urologist-Dr Cai at [facility]- plan to continue CIC, detrole 1mg BID and started Vibegron(Gemtesa)75mg OD ,they will follow with RBUS. They are going to establish care with urologist locally and will be seeing urologist today afternoon -04/08/24- R SAB injections for right shoulder pain by [facility] -Please see review of system for other [...] daily. vitamin D2 ergocalciferol (DRISDOL) 1.25 MG (71276 UT) capsule Take 50,000 Units by mouth [...] file. Underwent the follow surgical interventions @ [facility]: Date Operation/Procedure Provider Name 12/29/[address] [...] 21 (more content not included)... Normal [facility] CBCon 05-10-2024 AUTO NRBC 0.0 % Normal [facility] Comment on above: Order Comment: Upon arrival to [facility]. Performed By: #### 4 [id number] #### LAB [address] [address] Les Malone M.D. [id number] AUTO NRBC ABS COUNT 0.00 K/mcL Normal 0.00-0.00 [facility] Comment on above: Order Comment: Upon arrival to [facility]. Performed By: #### 4 5218 #### LAB [address] [address] Les Malone M.D. [id number] Erythrocyte distribution width (RBC) [Ratio] 16.6 % High 11.6-14.[address] [facility] Comment on above: Order Comment: Upon arrival to [facility]. Performed By: #### 4 5218 ####[facility] [address] [address] Les Malone M.D. [id number] Hematocrit (Bld) [Volume fraction] 37.5 % Low 41.0-53.[address] [facility] Comment on above: Order Comment: Upon arrival to [facility]. Performed By: #### 4 5218 #### LAB [address] [address] Les Malone M.D. [id number] Hemoglobin (Bld) [Mass/Vol] 12.1 g/dL Low 13.5-17.[address] [facility] Comment on above: Order Comment: Upon arrival to [facility]. Performed By: #### 4 [id number] #### LAB [address] [address] Les Malone M.D. [id number] MCH (RBC) [Entitic mass] 26.7 pg Normal 26.0-34.[address] [facility] Comment on above: Order Comment: Upon arrival to [facility]. Performed By: #### 4 5218 ####[facility] LAB [address] [address] Les Malone M.D. [id number] MCV (RBC) [Entitic vol] 82.8 fL Normal 80.0-100.[address] [facility] Comment on above: Order Comment: Upon arrival to [facility]. Performed By: #### 4 5218 #### LAB [address] [address] Les Malone M.D. [id number] MEAN CORPUSCULAR HEMOGLOBIN CONC 32.3 g/dL Normal 31.0-37.[address] [facility] Comment on above: Order Comment: Upon arrival to [facility]. Performed By: #### 4 5218 #### LAB [address] [address] Les Malone M.D. [id number] Platelet mean volume (Bld) [Entitic vol] 9.9 fL Normal 9.4-12.[address] [facility] Comment on above: Order Comment: Upon arrival to [facility]. Performed By: #### 4 5218 ####[facility] [address] [address] Les Malone M.D. [id number] Platelets (Bld) [#/Vol] 218 10*3/uL Normal 150-[address] [facility] Comment on above: Order Comment: Upon arrival to short term care. Performed By: #### 4 5218 ####[facility] [address] [address] Les Malone M.D. [id number] RBC (Bld) [#/Vol] 4.53 10*6/uL Normal 4.50-5.90 [facility] Comment on above: Order Comment: Upon arrival to [facility]. Performed By: #### 4 5218 #### LAB [address] [address] Les Malone M.D. [id number] WBC (Bld) [#/Vol] 16.47 10*3/uL High 4.50-11.00 [facility] Comment on above: Order Comment: Upon arrival to [facility]. Performed By: #### 4 5218 ####[facility] [address] [address] Les Malone M.D. [id number] H AND Jose 05-10-2024 H AND P Normal [facility] PT/INRon 05-10-2024 INR Coag (PPP) [Relative time] 1.1 {INR} Normal 0.8-1.[address] [facility] Comment on above: Order Comment: Upon arrival to [facility].During the induction phase of oral anticoagulation, the INR may not reflect the anticoagulation status of the patient. Therapeutic ranges for INR's are:Most clinical situations: INR 2.0-3.0Mechanical Prosthetic Valve: INR 2.5-3.5Critical: INR >5.0 Performed By: #### 4 6391 #### LAB [address] [place], [place] [address] Les Malone M.D. [id number] PT Coag (PPP) [Time] 13.6 s Normal 11.8-14.3 [facility] Comment on above: Order Comment: Upon arrival to [facility].During the induction phase of oral anticoagulation, the INR may not reflect the anticoagulation status of the patient. Therapeutic ranges for INR's are:Most clinical situations: INR 2.0-3.0Mechanical Prosthetic Valve: INR 2.5-3.5Critical: INR >5.0 Performed By: #### 4 6391 #### LAB [address] [place], [place] [address] Les Malone M.D. [id number] Telephone Encounteron 2023 Mechanical Ordnance Assembler Authentication Interface Message Text Patient has a new patient appointment with you on 06/30. Records from [facility] are scanned in Documentation Specialist for your review Normal [facility] CV IR IVC FILTER REMOVALon 1 06-23-2023 CV IR IVC FILTER REMOVAL Normal [facility] CARDIAC REMOTE DEVICE CHECKo n 04-20-2024 Remote interrogation of Leadless Pacemaker Notes/Summary: Stable Device function Est. Battery: >10 Years Presenting EGM: VS 60's bpm Pacing percentages AM-CRIME INVESTIGATOR SPECIAL AGENT: 0% CRIME INVESTIGATOR SPECIAL AGENT only: 3.7% V-V: 0 This device model [...] Presenting EGM: VS 60's bpm Pacing percentages AM-CRIME INVESTIGATOR SPECIAL AGENT: 0% CRIME INVESTIGATOR SPECIAL AGENT only: 3.7% V-V: 0 This device model [...] follow up and provider visit per protocol. [facility] CARDIAC REMOTE DEVICE CHECKO rdered By: Vilma Scherer on 04-20-2024 [facility] Work Phone: Kidney and Bladderon 024 Kidney and Bladder [facility] Imaging Services [address] [place] [id number] Kidney and Bladder MR#: [id number] Acct: [id number] Name: MAIDA POLANCO Rep #: [id number] : 1980 M 44 From: Alicia Hernandez MD PCP: Dr. Markel Bell MD Status: [facility] Study: Kidney and Bladder Date of Exam: 04/20/24 Exam# [id number] Ordering Dr: Markel Bell MD [id number] STUDY: RENAL ULTRASOUND - COMPLETE REASON FOR [...] EST , CC: Dr. Markel Bell MD Shirring Machine Operator: Signed Normal [facility] Urine Cultureon 04-15-2024 [facility] RE ORDERED, UNABLE T O CHANGE SOURCE TO URINE Presumptive E. coli [place] Count >100,000 Presumptive E. coli: REACTION Ampicillin Islt TREY >=32 Ampicillin+Sulbac Islt TREY 16 I Cefepime Islt TREY <=0.12 S cefTRIAXone Islt TREY <=0.25 S Ciprofloxacin Islt TRYE <=0.06 S B-Lactamase Extended Susc Islt NEG Gentamicin Islt TREY <=1 S levoFLOXacin Islt TREY <=0.12 S Meropenem Islt TREY <=0.25 S Nitrofurantoin Islt TREY <=16 S Pip+Tazo Islt TREY <=4 S TMP SMX Islt TREY >=320 R Normal [facility] Comment on above: Performed By: #### M 100.2200 #### [facility] [address] [place], [address] Telephone Encounteron 2023 Mechanical Ordnance Assembler Authentication Interface Message Text Called and spoke [...] verbalized understanding and thanked me. Normal [facility] Interface Message Text ----- Message from Cristopher [...] Chart. Cristopher Walker MD, UPRS Normal [facility] Telephone Encounteron 2023 Mechanical Ordnance Assembler Authentication Interface Message Text Pt's spouse called in with questions for a future ID visit on (CUSTOMER ACCOUNT MANAGER ID w/ Ray). She wanted to know if the visit could be switched to video as they live in [place] and Pt is quadriplegic. They also wanted to know if this is a necessary visit and could it be done with his PCP. Contact to discuss at soonest availability. Phone numbers Normal [facility] Mechanical Ordnance Assembler Authentication Interface Message Text Pt's called to request that an order for an Ultrasound of the Kidney and bladder be sent to [facility]. The fax number is [phone]. Sending to [facility] to send order Normal [facility] Telephone Encounteron 2023 Mechanical Ordnance Assembler Authentication Interface Message Text Spoke to the and she wants us to send an order for the US of the kidney and bladder to [facility]. Advised top send us the fax inof for us to fax the order. She will call back after verifying they take her insurance Normal [facility] Urine Cultureon 04-10-2024 [facility] Presumptive E. coli [place] Count >100,000 Presumptive E. coli: REACTION Ampicillin [...] TMP SMX Islt TREY >=320 R Normal [facility] Comment on above: Performed By: #### M 100.1707 #### [facility] [address] [place], [address] Patient Instructionson 04-09 Mechanical Ordnance Assembler Authentication Interface Message Text I have started [...] call to get this scheduled at any [facility] facility. I recommend videourodynamics to assess the bladder compliance, detrusor leak point pressure and to assess for vesicoureteral reflux which can be seen in patients with neurogenic bladder secondary to spinal cord injuries above T6. These studies can be performed at [facility] or with any voiding dysfunction specialist at [facility]. Normal [facility] Progress Noteson 04-09-2024 Mechanical Ordnance Assembler Authentication Interface Message Text Division of Urology Clinic Note Patient Name: Maida Polanco Referring Provider: Daquan Fiore III, MD [address] [place] [address] Chief Compliant: Chief Complaint Patient presents with [...] daily. vitamin D2 ergocalciferol (DRISDOL) 1.25 MG (53726 UT) capsule Take 50,000 Units by mouth [...] >40% risk of all cause dementia associated correction use with all antimuscarinics. Patient will be started on Gemtesa 75 mg po every day; if cost prohibitive will order mirabegron. We discussed that if evidence of poor bladder compliance or DLPP >40 cm H2O with or without VUR on VUDS patient may benefit fro (more content not included)... Normal [facility] Mechanical Ordnance Assembler Authentication Interface Message Text Patient was identified [...] - 1.0 [facility] TEST PERFORMED AT: [facility] POC Lab [address] [facility], [address] [place] [address] [facility] BILIRUBIN, URINE POC Negative Normal Negative The [facility] Comment on above: Order Comment: TEST PERFORMED AT: [facility] Lab [address] [facility], [address] [place] [address] Performed By: #### 8 1003 #### [facility] [address] [facility] [address] [place], [place] BLOOD, URINE POC Negative Normal Negative [facility] Comment on above: Order Comment: TEST PERFORMED AT: [facility] Lab [id number] [place] [address], [address] [place] [address] Performed By: #### 8 1003 #### [facility] [address] [facility] [address] [place] CLARITY, POC Clear Normal [facility] Comment on above: Order Comment: TEST PERFORMED AT: [facility] Lab [address] [place] [address], [address] [place] [address] Performed By: #### 8 1003 #### [facility] [address] [facility] [address] [place] COLOR, POC Yellow Normal [facility] Comment on above: Order Comment: TEST PERFORMED AT: [facility] Lab [address] [place] [address], [address] [place] [address] Performed By: #### 8 1003 #### [facility] [address] [facility] [address] [place], [place] GLUCOSE, URINE POC Negative Normal Negative The [facility] Comment on above: Order Comment: TEST PERFORMED AT: [facility] Lab [address] [place] [address], [address] [place] [address] Performed By: #### 8 1003 #### [facility] [address] [facility] [address] [place], [place] KETONES, URINE POC Negative Normal Negative The [facility] Comment on above: Order Comment: TEST PERFORMED AT: [facility] Lab [address] [place] [address], [address] [place] [address] Performed By: #### 8 1003 #### [facility] [address] [facility] [address] [place], [place] LEUKOCYTES, URINE POC Small Abnormal Negative The [facility] Comment on above: Order Comment: TEST PERFORMED AT: [facility] Lab [address] [facility], [address] [place] [address] Performed By: #### 8 1003 #### [facility] [address] [facility] [address] [place], [place] NITRITES, URINE POC Positive Abnormal Negative The [facility] Comment on above: Order Comment: TEST PERFORMED AT: [facility] Lab [address] [place] [address], [address] [place] [address] Performed By: #### 8 1003 #### [facility] [address] [facility] [address] [place], [place] PH, URINE POC 5.5 Normal 5.0-8.0 [facility] Comment on above: Order Comment: TEST PERFORMED AT: [facility] [address] [place] [address], [place] [address] Performed By: #### 8 1003 #### [facility] [address] [facility] [address] [place], [place] PROTEIN, URINE POC Trace Abnormal Negative The [facility] Comment on above: Order Comment: TEST PERFORMED AT: [facility] [address] [place] [address], [address] [place] [address] Performed By: #### 8 1003 #### [facility] [address] [facility] [address] [place], [place] SPECIFIC GRAVITY, POC >=1.030 Normal 1.005 - 1.030 [facility] Comment on above: Order Comment: TEST PERFORMED AT: [facility] [address] [place] [address], [place] [address] Performed By: #### 8 1003 #### [facility] [address] [facility] [address] [place], [place] UROBILINOGEN, URINE POC 0.2 Normal 0.2 - 1.0 [facility] Comment on above: Order Comment: TEST PERFORMED AT: [facility] Lab [address] [place] [address], [address] [place] [address] Performed By: #### 8 1003 #### [facility] [address] [facility] [address] [place], [place] URINE CULTUREon 04-09-2024 Bacteria identified Cx Nom (U) C URINE: Positive Culture Report ESCHERICHIA COLI >100,000 CFU/ml Escherichia coli Normal [facility] Comment on above: Performed By: #### C URINE #### [facility] [address] [facility] [address] [place], [place] TREY ____ ORGANISM: ESCHERICHIA COLI ANTIBIOTIC [...] Cefpodoxime Proxetil <= 0.25 S Normal [facility] Comment on above: Performed By: #### C URINE #### [facility] Pathology [address] [facility] [place], [place] LARGE JOINT/BURSA INJECTION AND/OR ASPIRATION: R [...] fashion. The patient was prepped with Chloraprep. [facility] Radiology Study observation (narrative) [facility] MR SHOULDER RIGHT WITHOUT CO NTRASTon 04-06-2024 [...] full-thickness chondral loss. 5. No acute fractures. [facility]/cdr Workstation ID: [id number] Dictated by: KENDALL KWONG on FriApr 06, 2024 9:48:14 AM EST Transcribed by: JORDYN DOMINGUEZ on FriApr 06, 2024 9:53:31 AM EST Finalized by: KENDALL KWONG on FriApr 06, 2024 11:00:49 AM EST Normal [facility] Comment on above: Order Comment: Israel alena has implanted micro pacer [employer]. 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 Message to therapies to please call and schedule/coordinate appointments. Normal [facility] [facility] CBC W/Diff, Automatedon 03-06 Absolute Lymph 2.76 X10 3/uL Normal 0.83-4.51 [facility] Comment on above: Order Comment: Order Date: 03/26/24Order Info: 0184-1 - CBCD Performed By: #### M 100.2200 #### [facility] [address] [place], [address] Absolute Neut 5.2 X10 3/uL Normal 2.0-7.7 [facility] Comment on above: Order Comment: Order Date: 03/26/24Order Info: 0184-1 - CBCD Performed By: #### M 100.2200 #### [facility] [address] [place], [address] Basophils/100 WBC (Bld) 0.5 % Normal 0-1 [facility] Comment on above: Order Comment: Order Date: 03/26/24Order Info: 4-1 - CBCD Performed By: #### M 100.2200 #### [facility] [address] [place], [address] Eosinophils/100 WBC (Bld) 10.4 % High 0-5 [facility] Comment on above: Order Comment: Order Date: 03/26/24Order Info: 183-1 - CBCD Performed By: #### M 100.2200 #### [facility] [address] [place], [address] Erythrocyte distribution width (RBC) [Ratio] 15.3 % High 11.6-14.6 [facility] Comment on above: Order Comment: Order Date: 03/26/24Order Info: 0184-1 - CBCD Performed By: #### M 100.2200 #### [facility] [address] [place], [address] Hematocrit (Bld) [Volume fraction] 36.3 % Low 40-54 [facility] Comment on above: Order Comment: Order Date: 03/26/24Order Info: 4-1 - CBCD Performed By: #### M 100.2200 #### [facility] [address] [place], [address] Hemoglobin (Bld) [Mass/Vol] 11.0 g/dL Low 13.0-16.5 [facility] Comment on above: Order Comment: Order Date: 03/26/24Order Info: 183- - CBCD Performed By: #### M 100.2200 #### [facility] [address] [place], [address] IG% 0.500 Normal 0.0-0.9 [facility] Comment on above: Order Comment: Order Date: 03/26/24Order Info: 183- - CBCD Result Comment: IG% - Immature Granulocytes (promyelocytes, myelocytes and metamyelocytes) > 1% indicates that a LEFT SHIFT is Present. Performed By: #### M 100.2200 #### [facility] [address] [place], [address] Lymphocytes/100 WBC (Bld) 28.2 % Normal 19-41 [facility] Comment on above: Order Comment: Order Date: 03/26/24Order Info: 183- - CBCD Performed By: #### M 100.2200 #### [facility] [address] [place], [address] MCH (RBC) [Entitic mass] 26.3 pg Low 27.0-32.0 [facility] Comment on above: Order Comment: Order Date: 03/26/24Order Info: 183- - CBCD Performed By: #### M 100.2200 #### [facility] [address] [place], [address] MCHC (RBC) [Mass/Vol] 30.3 g/dL Low 32-36 [facility] Comment on above: Order Comment: Order Date: 03/26/24Order Info: 183- - CBCD Performed By: #### M 100.2200 #### [facility] [address] [place], [address] MCV (RBC) [Entitic vol] 86.8 fL Normal 80-94 [facility] Comment on above: Order Comment: Order Date: 03/26/24Order Info: 0184-1 - CBCD Performed By: #### M 100.2200 #### [facility] [address] [place], [address] Monocytes/100 WBC (Bld) 7.4 % Normal 0-10 [facility] Comment on above: Order Comment: Order Date: 03/26/24Order Info: 0184-1 - CBCD Performed By: #### M 100.2200 #### [facility] [address] [place], [address] Neutrophils/100 WBC (Bld) 53.0 % Normal 47-70 [facility] Comment on above: Order Comment: Order Date: 03/26/24Order Info: 0184-1 - CBCD Performed By: #### M 100.2200 #### [facility] [address] [place], [address] Nucleated RBC (Bld) [#/Vol] 0 10*3/uL Normal 0-5 [facility] Comment on above: Order Comment: Order Date: 03/26/24Order Info: 0184-1 - CBCD Performed By: #### M 100.2200 #### [facility] [address] [place], [address] Platelet mean volume (Bld) [Entitic vol] 10.4 fL Normal 6.2-12.0 [facility] Comment on above: Order Comment: Order Date: 03/26/24Order Info: 0184-1 - CBCD Performed By: #### M 100.2200 #### [facility] [address] [place], [address] Platelets (Bld) [#/Vol] 258 10*3/uL Normal 150-450 [facility] Comment on above: Order Comment: Order Date: 03/26/24Order Info: 183-05 - CBCD Performed By: #### M 100.2200 #### [facility] [address] [place], [address] RBC (Bld) [#/Vol] 4.18 10*6/uL Low 4.6-6.2 [facility] Comment on above: Order Comment: Order Date: 03/26/24Order Info: 183-05 - CBCD Performed By: #### M 100.2200 #### [facility] [address] [place], [address] RDW SD 49.1 fl High 35.1-43.9 [facility] Comment on above: Order Comment: Order Date: 03/26/24Order Info: 183-05 - CBCD Performed By: #### M 100.2200 #### [facility] [address] [place], [address] WBC (Bld) [#/Vol] 9.8 10*3/uL Normal 4.4-11.0 [facility] Comment on above: Order Comment: Order Date: 03/26/24Order Info: 183-05 - CBCD Performed By: #### M 100.2200 #### [facility] [address] [place], [address] Comprehensive Metabolic Prof ilon 03-26-2024 Albumin [Mass/Vol] 2.9 g/dL Low 3.2-5.0 [facility] Comment on above: Order Comment: Order Date: 03/26/24Order Info: 0786-1 - CMPOrder Info: 2500-7 - TIBCOrder Info: 2498-4 - FEOrder Info: 2276-4 - FEROrder Info: 2284-8 - FOLSN Performed By: #### M 100.2200 #### [facility] [address] [place], [address] Albumin/Globulin [Mass ratio] 0.8 {ratio} Low 0.9-2.4 [facility] Comment on above: Order Comment: Order Date: 03/26/24Order Info: [id number] - CMPOrder Info: 2499-11 - TIBCOrder Info: 2497-08 - FEOrder Info: [id number] - FEROrder Info: [id number] - FOLSN Performed By: #### M 100.2200 #### [facility] [address] [place], [place], [address] ALK P 96 U/L Normal 45-117 [facility] Comment on above: Order Comment: Order Date: 03/26/24Order Info: [id number] - CMPOrder Info: 2499-11 - TIBCOrder Info: [id number] - FEOrder Info: [id number] - FEROrder Info: 2283-12 - FOLSN Performed By: #### M 100.2200 #### [facility] [address] [place], [place], [id number] [phone]) ALT [Catalytic activity/Vol] 37 U/L Normal 16-61 [facility] Comment on above: Order Comment: Order Date: 03/26/24Order Info: 07-1 - CMPOrder Info: 2499-11 - TIBCOrder Info: 2497-08 - FEOrder Info: [id number] - FEROrder Info: 2283-12 - FOLSN Performed By: #### M 100.2200 #### [facility] [address] [place], [place], [address] AST [Catalytic activity/Vol] 13 U/L Low 15-37 [facility] Comment on above: Order Comment: Order Date: 03/26/24Order Info: 0786-1 - CMPOrder Info: 2499-11 - TIBCOrder Info: [id number] - FEOrder Info: [id number] - FEROrder Info: 2283-12 - FOLSN Performed By: #### M 100.2200 #### [facility] [address] [place], [place], [address] Bilirubin [Mass/Vol] 0.30 mg/dL Normal 0.20-1.00 [facility] Comment on above: Order Comment: Order Date: 03/26/24Order Info: 0786-1 - CMPOrder Info: 2499-7 - TIBCOrder Info: 2498-4 - FEOrder Info: 2276-4 - FEROrder Info: 2284-8 - FOLSN Result Comment: For patients on eltrombopag therapy, use of [place] TBIL is not recommended. Performed By: #### M 100.2200 #### [facility] [address] [place], [place], [address] BUN/CRE 37.2 RATIO High 10-20 [facility] Comment on above: Order Comment: Order Date: 03/26/24Order Info: 07-1 - CMPOrder Info: 7 - TIBCOrder Info: [id number] - FEOrder Info: [id number] - FEROrder Info: 228-8 - FOLSN Performed By: #### M 100.2200 #### [facility] [address] [place], [place], [address] CA,Total 9.0 mg/dL Normal 8.5-10.1 [facility] Comment on above: Order Comment: Order Date: 03/26/24Order Info: 07-1 - CMPOrder Info: 7 - TIBCOrder Info: 2498-4 - FEOrder Info: [id number] - FEROrder Info: 228-8 - FOLSN Performed By: #### M 100.2200 #### [facility] [address] [place], [place], [address] Chloride [Moles/Vol] 106 mmol/L Normal 98-107 [facility] Comment on above: Order Comment: Order Date: 03/26/24Order Info: [id number] - CMPOrder Info: 7 - TIBCOrder Info: 2498-4 - FEOrder Info: [id number] - FEROrder Info: 2284-8 - FOLSN Performed By: #### M 100.2200 #### [facility] [address] [place], [place], [id number] CO2 [Moles/Vol] 23.0 mmol/L Normal 21.0-32.0 [facility] Comment on above: Order Comment: Order Date: 03/26/24Order Info: 0786-1 - CMPOrder Info: 2500-7 - TIBCOrder Info: 2498-4 - FEOrder Info: 2276-4 - FEROrder Info: 228-8 - FOLSN Performed By: #### M 100.2200 #### [facility] [address] [place], [place], [address] Creatinine [Mass/Vol] 0.81 mg/dL Normal 0.70-1.30 [facility] Comment on above: Order Comment: Order Date: 03/26/24Order Info: 785- - CMPOrder Info: 7 - TIBCOrder Info: 2498-4 - FEOrder Info: [id number] - FEROrder Info: 2288 - FOLSN Result Comment: The validity of the calculated GFR GFRAA in patients over 70 years has not been determined. Clinical correlation is essential. Performed By: #### M 100.2200 #### [facility] [address] [place], [place], [address] EST GFR - AA 133 mL/min Normal >60 [facility] Comment on above: Order Comment: Order Date: 03/26/24Order Info: 07- - CMPOrder Info: 7 - TIBCOrder Info: [id number] - FEOrder Info: [id number] - FEROrder Info: 228-8 - FOLSN Result Comment: Afri can [place] GFR Calc Performed By: #### M 100.2200 #### [facility] [address] [place], [place], [address] GAP 8 Normal 5-15 [facility] Comment on above: Order Comment: Order Date: 03/26/24Order Info: 0786-1 - CMPOrder Info: 2500-7 - TIBCOrder Info: 2498-4 - FEOrder Info: 2276-4 - FEROrder Info: 2284-8 - FOLSN Performed By: #### M 100.2200 #### [facility] [address] [place], [address] GFR/1.73 sq M.predicted among non-blacks MDRD (S/P/Bld) [Vol rate/Area] 110 mL/min/{1.73_m2} Normal >60 [facility] Comment on above: Order Comment: Order Date: 03/26/24Order Info: 0786-1 - CMPOrder Info: 2499-7 - TIBCOrder Info: 2498-4 - FEOrder Info: 227-4 - FEROrder Info: 228-8 - FOLSN Result Comment: Non- GFR Calc Performed By: #### M 100.2200 #### [facility] [address] [place], [address] Globulin (S) [Mass/Vol] 3.6 g/dL Normal 2.2-4.2 [facility] Comment on above: Order Comment: Order Date: 03/26/24Order Info: 0786-1 - CMPOrder Info: 7 - TIBCOrder Info: 2498-4 - FEOrder Info: 2275- - FEROrder Info: 8 - FOLSN Performed By: #### M 100.2200 #### [facility] [address] [place], [address] Glucose [Mass/Vol] 87 mg/dL Normal 74-106 [facility] Comment on above: Order Comment: Order Date: 03/26/24Order Info: 0786-1 - CMPOrder Info: 7 - TIBCOrder Info: 2498-4 - FEOrder Info: 227-4 - FEROrder Info: 2283-8 - FOLSN Performed By: #### M 100.2200 #### [facility] [address] [place], [address] Potassium [Moles/Vol] 4.2 mmol/L Normal 3.5-5.1 [facility] Comment on above: Order Comment: Order Date: 03/26/24Order Info: 0786-1 - CMPOrder Info: 7 - TIBCOrder Info: [id number] - FEOrder Info: [id number] - FEROrder Info: 8 - FOLSN Performed By: #### M 100.2200 #### [facility] [address] [place], [place], [address] Sodium [Moles/Vol] 138 mmol/L Normal 136-145 [facility] Comment on above: Order Comment: Order Date: 03/26/24Order Info: 0786-1 - CMPOrder Info: 7 - TIBCOrder Info: 2498-4 - FEOrder Info: [id number] - FEROrder Info: 2283-12 - FOLSN Performed By: #### M 100.2200 #### [facility] [address] [place], [place], [address] T PROT 6.5 g/dL Normal 6.4-8.2 [facility] Comment on above: Order Comment: Order Date: 03/26/24Order Info: 0786-1 - CMPOrder Info: 2499-11 - TIBCOrder Info: [id number] - FEOrder Info: [id number] - FEROrder Info: 2283-12 - FOLSN Performed By: #### M 100.2200 #### [facility] [address] [place], [place], [address] Urea nitrogen [Mass/Vol] 30 mg/dL High 7-18 [facility] Comment on above: Order Comment: Order Date: 03/26/24Order Info: 0786-1 - CMPOrder Info: 7 - TIBCOrder Info: [id number] - FEOrder Info: [id number] - FEROrder Info: 8 - FOLSN Performed By: #### M 100.2200 #### [facility] [address] [place], [address] Ferritinon 03-26-2024 Ferritin [Mass/Vol] 63 ng/mL Normal 26-388 [facility] Comment on above: Order Comment: Order Date: 03/26/24Order Info: 0786-1 - CMPOrder Info: 2499-7 - TIBCOrder Info: 2498-4 - FEOrder Info: 2276-4 - FEROrder Info: 228-8 - FOLSN Performed By: #### M 100.2200 #### [facility] [address] [place], [place], [address] Folates, (Folic Acid)on 03-06 FOLATES 9.80 ng/mL Normal 3.1-55.4 [facility] Comment on above: Order Comment: Order Date: 03/26/24Order Info: 785-1 - CMPOrder Info: 2499-7 - TIBCOrder Info: 2498-4 - FEOrder Info: 2276-4 - FEROrder Info: 228-8 - FOLSN Performed By: #### M 100.2200 #### [facility] [address] [place], [place], [address] Ironon 03-26-2024 Iron [Mass/Vol] 59 ug/dL Low 65-175 [facility] Comment on above: Order Comment: Order Date: 03/26/24Order Info: 785- - CMPOrder Info: 2499-7 - TIBCOrder Info: 2498-4 - FEOrder Info: 2276-4 - FEROrder Info: 2284-8 - FOLSN Performed By: #### M 100.2200 #### [facility] [address] [place], [place], [address] Iron Binding Capacity,Totalo n 03-26-2024 TIBC 425 ug/dL Normal 250-450 [facility] Comment on above: Order Comment: Order Date: 03/26/24Order Info: 07-1 - CMPOrder Info: 2499-7 - TIBCOrder Info: 2498-4 - FEOrder Info: 2276-4 - FEROrder Info: 2284-8 - FOLSN Performed By: #### M 100.2200 #### [facility] [address] [place], [address] Vitamin B12on 03-26-2024 Cobalamin (Vitamin B12) [Mass/Vol] 388 pg/mL Normal 211-911 [facility] Comment on above: Order Comment: Order Date: 03/26/24Order Info: 2132-9 - B12 Performed By: #### M 100.2200 #### [facility] [address] [place], [address] CALCIUMon 03-23-2024 Calcium [Mass/Vol] 9.0 mg/dL Normal 8.6-10.5 [facility] Comment on above: Performed By: #### P LAT #### [facility] (DEFAULT) [address] [address] CBC AND ELECTRONIC DIFFon Basophils (Bld) [#/Vol] 0.05 10*3/uL Normal 0.00-0.09 [facility] Comment on above: Performed By: #### U [id number] #### [facility] (DEFAULT) [address] [address] Basophils/100 WBC (Bld) 0.6 % Normal [facility] Comment on above: Performed By: #### U [id number] #### [facility] (DEFAULT) [address] [address] DIFF STATUS Electronic Differential Normal [facility] Comment on above: Performed By: #### U [id number] #### [facility] (DEFAULT) [address] [place] [address] Eosinophils (Bld) [#/Vol] 1.11 10*3/uL High 0.00-0.48 [facility] Comment on above: Performed By: #### U [id number] #### [facility] (DEFAULT) [address] [place] [address] Eosinophils/100 WBC (Bld) 12.6 % Normal [facility] Comment on above: Performed By: #### U [id number] #### [facility] (DEFAULT) [address] [address] Hematocrit (Bld) [Volume fraction] 33.0 % Low 39.6-48.8 [facility] Comment on above: Performed By: #### U [id number] #### [facility] (DEFAULT) [address] [address] Hemoglobin (Bld) [Mass/Vol] 10.5 g/dL Low 13.4-16.8 [facility] Comment on above: Performed By: #### U [id number] #### [facility] (DEFAULT) [address] [address] Immature Grans % 0.5 % Normal [facility] Comment on above: Performed By: #### U [id number] #### [facility] (DEFAULT) [address] [address] Immature Grans Absolute 0.04 K/uL Normal <=0.07 [facility] Comment on above: Performed By: #### U [id number] #### [facility] (DEFAULT) [address] [address] Lymphocytes (Bld) [#/Vol] 2.34 10*3/uL Normal 0.83-3.57 [facility] Comment on above: Performed By: #### U [id number] #### [facility] (DEFAULT) [address] [address] Lymphocytes/100 WBC (Bld) 26.5 % Normal [facility] Comment on above: Performed By: #### U [id number] #### [facility] (DEFAULT) [address] [address] MCV (RBC) [Entitic vol] 85.3 fL Normal 79.0-94.5 [facility] Comment on above: Performed By: #### U [id number] #### [facility] (DEFAULT) [address] [address] Mean Cell Hgb 27.1 pg Normal 26.1-33.3 [facility] Comment on above: Performed By: #### U [id number] #### [facility] (DEFAULT) [address] [address] Mean Cell Hgb Conc 31.8 g/dL Low 31.9-36.5 [facility] Comment on above: Performed By: #### U [id number] #### [facility] (DEFAULT) [address] [address] Monocytes (Bld) [#/Vol] 0.62 10*3/uL Normal 0.24-0.93 [facility] Comment on above: Performed By: #### U [id number] #### [facility] (DEFAULT) [address] [address] Monocytes/100 WBC (Bld) 7.0 % Normal [facility] Comment on above: Performed By: #### U [id number] #### [facility] (DEFAULT) [address] [address] Nucleated RBC 0.0 /100 WBC Normal <=0.2 [facility] Comment on above: Performed By: #### U [id number] #### [facility] (DEFAULT) [address] [address] Platelet mean volume (Bld) [Entitic vol] 11.0 fL Normal 8.7-12.3 [facility] Comment on above: Performed By: #### U [id number] #### [facility] (DEFAULT) [address] [address] Platelets (Bld) [#/Vol] 219 10*3/uL Normal 146-337 [facility] Comment on above: Performed By: #### U [id number] #### [facility] (DEFAULT) [address] [address] RBC (Bld) [#/Vol] 3.87 10*6/uL Low 4.38-5.83 [facility] Comment on above: Performed By: #### U [id number] #### [facility] (DEFAULT) [address] [place] [address] RBC Distribution 14.7 % High 10.9-14.3 [facility] Comment on above: Performed By: #### U [id number] #### [facility] (DEFAULT) [address] [place] [address] Segs + Bands Auto 52.8 % Normal [facility] Comment on above: Performed By: #### U [id number] #### [facility] (DEFAULT) [address] [place] [address] Segs + Bands,Absolute Auto 4.68 K/uL Normal 1.57-6.19 [facility] Comment on above: Performed By: #### U [id number] #### [facility] (DEFAULT) [address] [place] [address] WBC (Bld) [#/Vol] 8.84 10*3/uL Normal 3.73-10.10 [facility] Comment on above: Performed By: #### U [id number] #### [facility] (DEFAULT) [address] [place] [address] CHEM 7 (LYTES,BUN,CREA,GLUC) on 03-23-2024 Anion gap [Moles/Vol] 14 mmol/L Normal 7-17 [facility] Comment on above: Performed By: #### P LAT #### [facility] (DEFAULT) [address] [place] [address] Chloride [Moles/Vol] 105 mmol/L Normal 98-108 [facility] Comment on above: Performed By: #### P LAT #### [facility] (DEFAULT) [address] [place] [address] CO2 [Moles/Vol] 28 mmol/L Normal 21-31 [facility] Comment on above: Performed By: #### P LAT #### [facility] (DEFAULT) [address] [place] [address] Creatinine [Mass/Vol] 0.62 mg/dL Low 0.70-1.30 [facility] Comment on above: Performed By: #### P LAT #### [facility] (DEFAULT) [address] [place] [address] eGFR, CKD-EPI, Male > Normal >=60 [facility] Comment on above: Result Comment: Repo rted eGFR is based on the CKD-EPI 2020 equation using creatinine, age, and sex. Performed By: #### P LAT #### [facility] (DEFAULT) [address] [place] [address] Glucose [Mass/Vol] 91 mg/dL Normal 70-99 [facility] Comment on above: Performed By: #### P LAT #### [facility] (DEFAULT) [address] [place] [address] Osmolality [Osmolality] 302 mosm/kg Normal 278-305 [facility] Comment on above: Performed By: #### P LAT #### [facility] (DEFAULT) [address] [place] [address] Potassium [Moles/Vol] 4.1 mmol/L Normal 3.5-5.0 [facility] Comment on above: Performed By: #### P LAT #### [facility] (DEFAULT) [address] [place] [address] Sodium [Moles/Vol] 143 mmol/L Normal 135-145 [facility] Comment on above: Performed By: #### P LAT #### [facility] (DEFAULT) [address] [place] [address] Urea nitrogen [Mass/Vol] 23 mg/dL Normal 7-25 [facility] Comment on above: Performed By: #### P LAT #### [facility] (DEFAULT) [address] [place] [address] Urea nitrogen/Creatinine [Mass ratio] 37 mg/mg Normal [facility] Comment on above: Performed By: #### P LAT #### [facility] (DEFAULT) [address] [place] [address] MAGNESIUMon 03-23-2024 Magnesium [Mass/Vol] 1.9 mg/dL Normal 1.6-2.6 [facility] Comment on above: Performed By: #### P LAT #### [facility] (DEFAULT) [address] [place] [address] PREALBUMINon 03-23-2024 Prealbumin [Mass/Vol] 26 mg/dL Normal 17-34 [facility] Comment on above: Performed By: #### P LAT #### [facility] (DEFAULT) [address] [place] [address] CHEM 7 (LYTES,BUN,CREA,GLUC) on 03-22-2024 Anion gap [Moles/Vol] 13 mmol/L Normal 7-17 [facility] Comment on above: Performed By: #### P LAT #### [facility] (DEFAULT) [address] [place] [address] Chloride [Moles/Vol] 103 mmol/L Normal 98-108 [facility] Comment on above: Performed By: #### P LAT #### [facility] (DEFAULT) [address] [place] [address] CO2 [Moles/Vol] 28 mmol/L Normal 21-31 [facility] Comment on above: Performed By: #### P LAT #### [facility] (DEFAULT) [address] [place] [address] Creatinine [Mass/Vol] 0.63 mg/dL Low 0.70-1.30 [facility] Comment on above: Performed By: #### P LAT #### [facility] (DEFAULT) [address] [place] [address] eGFR, CKD-EPI, Male > Normal >=60 [facility] Comment on above: Result Comment: Repo rted eGFR is based on the CKD-EPI 2020 equation using creatinine, age, and sex. Performed By: #### P LAT #### [facility] (DEFAULT) [address] [place] [address] Glucose [Mass/Vol] 87 mg/dL Normal 70-99 [facility] Comment on above: Performed By: #### P LAT #### [facility] (DEFAULT) [address] [place] [address] Osmolality [Osmolality] 296 mosm/kg Normal 278-305 [facility] Comment on above: Performed By: #### P LAT #### [facility] (DEFAULT) [address] [place] [address] Potassium [Moles/Vol] 4.1 mmol/L Normal 3.5-5.0 [facility] Comment on above: Performed By: #### P LAT #### [facility] (DEFAULT) [address] [place] [address] Sodium [Moles/Vol] 140 mmol/L Normal 135-145 [facility] Comment on above: Performed By: #### P LAT #### [facility] (DEFAULT) [address] [place] [address] Urea nitrogen [Mass/Vol] 24 mg/dL Normal 7-25 [facility] Comment on above: Performed By: #### P LAT #### [facility] (DEFAULT) [address] [place] [address] Urea nitrogen/Creatinine [Mass ratio] 38 mg/mg Normal [facility] Comment on above: Performed By: #### P LAT #### [facility] (DEFAULT) [address] [place] [address] MAGNESIUMon 03-22-2024 Magnesium [Mass/Vol] 1.9 mg/dL Normal 1.6-2.6 [facility] Comment on above: Performed By: #### L [id number] #### [facility] (DEFAULT) [address] [place] [address] PLATELET COUNTon 03-19-2024 Platelet mean volume (Bld) [Entitic vol] 10.6 fL Normal 8.7-12.3 [facility] Comment on above: Performed By: #### U R #### [facility] (DEFAULT) [address] [address] Platelets (Bld) [#/Vol] 244 10*3/uL Normal 146-337 [facility] Comment on above: Performed By: #### U R #### [facility] (DEFAULT) [address] [address] CALCIUMon 03-16-2024 Calcium [Mass/Vol] 9.2 mg/dL Normal 8.6-10.5 [facility] Comment on above: Performed By: #### L [id number] #### [facility] (DEFAULT) [address] [address] CBC AND ELECTRONIC DIFFon Basophils (Bld) [#/Vol] 0.04 10*3/uL Normal 0.00-0.09 [facility] Comment on above: Performed By: #### L [id number] #### [facility] (DEFAULT) [address] [address] Basophils/100 WBC (Bld) 0.5 % Normal [facility] Comment on above: Performed By: #### L [id number] #### [facility] (DEFAULT) [address] [address] DIFF STATUS Electronic Differential Normal [facility] Comment on above: Performed By: #### L [id number] #### [facility] (DEFAULT) [address] [address] Eosinophils (Bld) [#/Vol] 0.82 10*3/uL High 0.00-0.48 [facility] Comment on above: Performed By: #### L [id number] #### [facility] (DEFAULT) [address] [address] Eosinophils/100 WBC (Bld) 10.0 % Normal [facility] Comment on above: Performed By: #### L [id number] #### [facility] (DEFAULT) [address] [address] Hematocrit (Bld) [Volume fraction] 34.8 % Low 39.6-48.8 [facility] Comment on above: Performed By: #### L [id number] #### [facility] (DEFAULT) [address] [address] Hemoglobin (Bld) [Mass/Vol] 10.9 g/dL Low 13.4-16.8 [facility] Comment on above: Performed By: #### L [id number] #### [facility] (DEFAULT) [address] [address] Immature Grans % 0.6 % Normal [facility] Comment on above: Performed By: #### L [id number] #### [facility] (DEFAULT) [address] [address] Immature Grans Absolute 0.05 K/uL Normal <=0.07 [facility] Comment on above: Performed By: #### L [id number] #### [facility] (DEFAULT) [address] [address] Lymphocytes (Bld) [#/Vol] 2.31 10*3/uL Normal 0.83-3.57 [facility] Comment on above: Performed By: #### L [id number] #### [facility] (DEFAULT) [address] [address] Lymphocytes/100 WBC (Bld) 28.2 % Normal [facility] Comment on above: Performed By: #### L [id number] #### [facility] (DEFAULT) [address] [address] MCV (RBC) [Entitic vol] 84.9 fL Normal 79.0-94.5 [facility] Comment on above: Performed By: #### L [id number] #### [facility] (DEFAULT) [address] [address] Mean Cell Hgb 26.6 pg Normal 26.1-33.3 [facility] Comment on above: Performed By: #### L [id number] #### [facility] (DEFAULT) [address] [address] Mean Cell Hgb Conc 31.3 g/dL Low 31.9-36.5 [facility] Comment on above: Performed By: #### L [id number] #### [facility] (DEFAULT) [address] [address] Monocytes (Bld) [#/Vol] 0.74 10*3/uL Normal 0.24-0.93 [facility] Comment on above: Performed By: #### L [id number] #### [facility] (DEFAULT) [address] [address] Monocytes/100 WBC (Bld) 9.0 % Normal [facility] Comment on above: Performed By: #### L [id number] #### [facility] (DEFAULT) [address] [address] Nucleated RBC 0.0 /100 WBC Normal <=0.2 [facility] Comment on above: Performed By: #### L [id number] #### [facility] (DEFAULT) [address] [address] Platelet mean volume (Bld) [Entitic vol] 10.1 fL Normal 8.7-12.3 [facility] Comment on above: Performed By: #### L [id number] #### [facility] (DEFAULT) [address] [address] Platelets (Bld) [#/Vol] 251 10*3/uL Normal 146-337 [facility] Comment on above: Performed By: #### L [id number] #### [facility] (DEFAULT) [address] [address] RBC (Bld) [#/Vol] 4.10 10*6/uL Low 4.38-5.83 [facility] Comment on above: Performed By: #### L [id number] #### [facility] (DEFAULT) [address] [place] [address] RBC Distribution 14.6 % High 10.9-14.3 [facility] Comment on above: Performed By: #### L [id number] #### [facility] (DEFAULT) [address] [place] [address] Segs + Bands Auto 51.7 % Normal [facility] Comment on above: Performed By: #### L [id number] #### [facility] (DEFAULT) [address] [place] [address] Segs + Bands,Absolute Auto 4.22 K/uL Normal 1.57-6.19 [facility] Comment on above: Performed By: #### L [id number] #### [facility] (DEFAULT) [address] [place] [address] WBC (Bld) [#/Vol] 8.18 10*3/uL Normal 3.73-10.10 [facility] Comment on above: Performed By: #### L [id number] #### [facility] (DEFAULT) [address] [place] [address] CHEM 7 (LYTES,BUN,CREA,GLUC) on 03-16-2024 Anion gap [Moles/Vol] 14 mmol/L Normal 7-17 [facility] Comment on above: Performed By: #### L [id number] #### [facility] (DEFAULT) [address] [place] [address] Chloride [Moles/Vol] 105 mmol/L Normal 98-108 [facility] Comment on above: Performed By: #### L [id number] #### [facility] (DEFAULT) [address] [place] [address] CO2 [Moles/Vol] 29 mmol/L Normal 21-31 [facility] Comment on above: Performed By: #### L [id number] #### [facility] (DEFAULT) [address] [place] [address]851 Creatinine [Mass/Vol] 0.69 mg/dL Low 0.70-1.30 [facility] Comment on above: Performed By: #### L [id number] #### [facility] (DEFAULT) [address] [place] [address] eGFR, CKD-EPI, Male > Normal >=60 [facility] Comment on above: Result Comment: Repo rted eGFR is based on the CKD-EPI 2020 equation using creatinine, age, and sex. Performed By: #### L [id number] #### [facility] (DEFAULT) [address] [place] [address] Glucose [Mass/Vol] 85 mg/dL Normal 70-99 [facility] Comment on above: Performed By: #### L [id number] #### [facility] (DEFAULT) [address] [place] [address] Osmolality [Osmolality] 304 mosm/kg Normal 278-305 [facility] Comment on above: Performed By: #### L [id number] #### [facility] (DEFAULT) [address] [place] [address] Potassium [Moles/Vol] 4.7 mmol/L Normal 3.5-5.0 [facility] Comment on above: Performed By: #### L [id number] #### [facility] (DEFAULT) [address] [place] [address] Sodium [Moles/Vol] 143 mmol/L Normal 135-145 [facility] Comment on above: Performed By: #### L [id number] #### [facility] (DEFAULT) [address] [place] [address] Urea nitrogen [Mass/Vol] 27 mg/dL High 7-25 [facility] Comment on above: Performed By: #### L [id number] #### [facility] (DEFAULT) [address] [place] [address] Urea nitrogen/Creatinine [Mass ratio] 39 mg/mg Normal [facility] Comment on above: Performed By: #### L [id number] #### [facility] (DEFAULT) [address] [place] [address] MAGNESIUMon 03-16-2024 Magnesium [Mass/Vol] 1.8 mg/dL Normal 1.6-2.6 [facility] Comment on above: Performed By: #### L [id number] #### [facility] (DEFAULT) [address] [place] [address] PREALBUMINon 03-16-2024 Prealbumin [Mass/Vol] 26 mg/dL Normal 17-34 [facility] Comment on above: Performed By: #### L [id number] #### [facility] (DEFAULT) [address] [place] [address] US MSK SHOULDER RIGHTon 03-05 US MSK [...] with trace subacromial subdeltoid bursal fluid. Normal [facility] C REACTIVE PROTEINon 024 CRP [Mass/Vol] 8.53 mg/L Normal <10.00 [facility] Comment on above: Performed By: #### P LAT #### [facility] (DEFAULT) [address] [address] CBC,PLATELETSon 03-15-2024 Hematocrit (Bld) [Volume fraction] 33.6 % Low 39.6-48.8 [facility] Comment on above: Performed By: #### L [id number] #### [facility] (DEFAULT) [address] [address] Hemoglobin (Bld) [Mass/Vol] 10.7 g/dL Low 13.4-16.8 [facility] Comment on above: Performed By: #### L [id number] #### [facility] (DEFAULT) [address] [address] MCV (RBC) [Entitic vol] 85.1 fL Normal 79.0-94.5 [facility] Comment on above: Performed By: #### L [id number] #### [facility] (DEFAULT) [address] [address] Mean Cell Hgb 27.1 pg Normal 26.1-33.3 [facility] Comment on above: Performed By: #### L [id number] #### [facility] (DEFAULT) [address] [address] Mean Cell Hgb Conc 31.8 g/dL Low 31.9-36.5 [facility] Comment on above: Performed By: #### L [id number] #### [facility] (DEFAULT) [address] [address] Platelet mean volume (Bld) [Entitic vol] 10.3 fL Normal 8.7-12.3 [facility] Comment on above: Performed By: #### L [id number] #### [facility] (DEFAULT) [address] [address] Platelets (Bld) [#/Vol] 266 10*3/uL Normal 146-337 [facility] Comment on above: Performed By: #### L [id number] #### [facility] (DEFAULT) [address] [place] [address] RBC (Bld) [#/Vol] 3.95 10*6/uL Low 4.38-5.83 [facility] Comment on above: Performed By: #### L [id number] #### [facility] (DEFAULT) [address] [place] [address] RBC Distribution 14.5 % High 10.9-14.3 [facility] Comment on above: Performed By: #### L [id number] #### [facility] (DEFAULT) [address] [place] [address] WBC (Bld) [#/Vol] 9.80 10*3/uL Normal 3.73-10.10 [facility] Comment on above: Performed By: #### L [id number] #### [facility] (DEFAULT) [address] [place] [address] SEDIMENTATION RATE, AUTOMATE Don 03-15-2024 ESR Westergren 30 mm/hr High <15 [facility] Comment on above: Performed By: #### L [id number] #### [facility] (DEFAULT) [address] [place] [address] XR ELBOW RIGHT 2 VIEWSon XR ELBOW [...] osseous abnormality of the right elbow. Normal [facility] XR SHOULDER RIGHT 2+ VIEWSon 03-15-2024 XR [...] are anatomically aligned. IMPRESSION: Unremarkable study. Normal [facility] PLATELET COUNTon 03-13-2024 Platelet mean volume (Bld) [Entitic vol] 10.4 fL Normal 8.7-12.3 [facility] Comment on above: Performed By: #### L [id number] #### [facility] (DEFAULT) [address] [place] [address] Platelets (Bld) [#/Vol] 273 10*3/uL Normal 146-337 [facility] Comment on above: Performed By: #### L [id number] #### [facility] (DEFAULT) [address] [place] [address] PLATELET COUNTon 03-10-2024 Platelet mean volume (Bld) [Entitic vol] 10.4 fL Normal 8.7-12.3 [facility] Comment on above: Performed By: #### L [id number] #### [facility] (DEFAULT) [address] [place] [address] Platelets (Bld) [#/Vol] 282 10*3/uL Normal 146-337 [facility] Comment on above: Performed By: #### L [id number] #### [facility] (DEFAULT) [address] [place] [address] CALCIUMon 03-08-2024 Calcium [Mass/Vol] 8.7 mg/dL Normal 8.6-10.5 [facility] Comment on above: Performed By: #### C HM7, MGO, PALB, CA, HFP ####[facility] (DEFAULT)[address] [place] [address] CBC AND ELECTRONIC DIFFon Basophils (Bld) [#/Vol] 0.04 10*3/uL Normal 0.00-0.09 [facility] Comment on above: Performed By: #### L [id number] #### [facility] (DEFAULT) [address] [address] Basophils/100 WBC (Bld) 0.5 % Normal [facility] Comment on above: Performed By: #### L [id number] #### [facility] (DEFAULT) [address] [address] DIFF STATUS Electronic Differential Normal [facility] Comment on above: Performed By: #### L [id number] #### [facility] (DEFAULT) [address] [address] Eosinophils (Bld) [#/Vol] 0.67 10*3/uL High 0.00-0.48 [facility] Comment on above: Performed By: #### L [id number] #### [facility] (DEFAULT) [address] [address] Eosinophils/100 WBC (Bld) 8.1 % Normal [facility] Comment on above: Performed By: #### L [id number] #### [facility] (DEFAULT) [address] [address] Hematocrit (Bld) [Volume fraction] 32.7 % Low 39.6-48.8 [facility] Comment on above: Performed By: #### L [id number] #### [facility] (DEFAULT) [address] [address] Hemoglobin (Bld) [Mass/Vol] 10.4 g/dL Low 13.4-16.8 [facility] Comment on above: Performed By: #### L [id number] #### [facility] (DEFAULT) [address] [address] Immature Grans % 0.8 % Normal [facility] Comment on above: Performed By: #### L [id number] #### [facility] (DEFAULT) [address] [place] [address] Immature Grans Absolute 0.07 K/uL Normal <=0.07 [facility] Comment on above: Performed By: #### L [id number] #### [facility] (DEFAULT) [address] [place] [address] Lymphocytes (Bld) [#/Vol] 2.12 10*3/uL Normal 0.83-3.57 [facility] Comment on above: Performed By: #### L [id number] #### [facility] (DEFAULT) [address] [place] [address] Lymphocytes/100 WBC (Bld) 25.6 % Normal [facility] Comment on above: Performed By: #### L [id number] #### [facility] (DEFAULT) [address] [place] [address] MCV (RBC) [Entitic vol] 85.8 fL Normal 79.0-94.5 [facility] Comment on above: Performed By: #### L [id number] #### [facility] (DEFAULT) [address] [address] Mean Cell Hgb 27.3 pg Normal 26.1-33.3 [facility] Comment on above: Performed By: #### L [id number] #### [facility] (DEFAULT) [address] [address] Mean Cell Hgb Conc 31.8 g/dL Low 31.9-36.5 [facility] Comment on above: Performed By: #### L [id number] #### [facility] (DEFAULT) [address] [place] [address] Monocytes (Bld) [#/Vol] 0.58 10*3/uL Normal 0.24-0.93 [facility] Comment on above: Performed By: #### L [id number] #### [facility] (DEFAULT) [address] [place] [address] Monocytes/100 WBC (Bld) 7.0 % Normal [facility] Comment on above: Performed By: #### L [id number] #### [facility] (DEFAULT) [address] [address] Nucleated RBC 0.0 /100 WBC Normal <=0.2 [facility] Comment on above: Performed By: #### L [id number] #### [facility] (DEFAULT) [address] [address] Platelet mean volume (Bld) [Entitic vol] 10.8 fL Normal 8.7-12.3 [facility] Comment on above: Performed By: #### L [id number] #### [facility] (DEFAULT) [address] [address] Platelets (Bld) [#/Vol] 244 10*3/uL Normal 146-337 [facility] Comment on above: Performed By: #### L [id number] #### [facility] (DEFAULT) [address] [address] RBC (Bld) [#/Vol] 3.81 10*6/uL Low 4.38-5.83 [facility] Comment on above: Performed By: #### L [id number] #### [facility] (DEFAULT) [address] [address] RBC Distribution 14.7 % High 10.9-14.3 [facility] Comment on above: Performed By: #### L [id number] #### [facility] (DEFAULT) [address] [address] Segs + Bands Auto 58.0 % Normal [facility] Comment on above: Performed By: #### L [id number] #### [facility] (DEFAULT) [address] [address] Segs + Bands,Absolute Auto 4.80 K/uL Normal 1.57-6.19 [facility] Comment on above: Performed By: #### L [id number] #### [facility] (DEFAULT) [address] [place] [address] WBC (Bld) [#/Vol] 8.28 10*3/uL Normal 3.73-10.10 [facility] Comment on above: Performed By: #### L [id number] #### [facility] (DEFAULT) [address] [place] [address] CHEM 7 (LYTES,BUN,CREA,GLUC) on 03-08-2024 Anion gap [Moles/Vol] 14 mmol/L Normal 7-17 [facility] Comment on above: Performed By: #### C HM7, MGO, PALB, CA, HFP ####[facility] (DEFAULT)[address] [place] [address] Chloride [Moles/Vol] 104 mmol/L Normal 98-108 [facility] Comment on above: Performed By: #### C HM7, MGO, PALB, CA, HFP ####[facility] (DEFAULT)[address] [place] [address] CO2 [Moles/Vol] 27 mmol/L Normal 21-31 [facility] Comment on above: Performed By: #### C HM7, MGO, PALB, CA, HFP ####[facility] (DEFAULT)[address] [place] [address] Creatinine [Mass/Vol] 0.75 mg/dL Normal 0.70-1.30 [facility] Comment on above: Performed By: #### C HM7, MGO, PALB, CA, HFP ####[facility] (DEFAULT)[address] [place] [address] eGFR, CKD-EPI, Male > Normal >=60 [facility] Comment on above: Result Comment: Repo rted eGFR is based on the CKD-EPI 2020 equation using creatinine, age, and sex. Performed By: #### C HM7, MGO, PALB, CA, HFP ####[facility] (DEFAULT)[address] [place] [address] Glucose [Mass/Vol] 85 mg/dL Normal 70-99 [facility] Comment on above: Performed By: #### C HM7, MGO, PALB, CA, HFP ####[facility] (DEFAULT)[address] [place] [address] Osmolality [Osmolality] 299 mosm/kg Normal 278-305 [facility] Comment on above: Performed By: #### C HM7, MGO, PALB, CA, HFP ####[facility] (DEFAULT)[address] [place] [address] Potassium [Moles/Vol] 4.0 mmol/L Normal 3.5-5.0 [facility] Comment on above: Performed By: #### C HM7, MGO, PALB, CA, HFP ####[facility] (DEFAULT)[address] [place] [address] Sodium [Moles/Vol] 141 mmol/L Normal 135-145 [facility] Comment on above: Performed By: #### C HM7, MGO, PALB, CA, HFP ####[facility] (DEFAULT)[address] [place] [address] Urea nitrogen [Mass/Vol] 28 mg/dL High 7-25 [facility] Comment on above: Performed By: #### C HM7, MGO, PALB, CA, HFP ####[facility] (DEFAULT)[address] [place] [address] Urea nitrogen/Creatinine [Mass ratio] 37 mg/mg Normal [facility] Comment on above: Performed By: #### C HM7, MGO, PALB, CA, HFP ####[facility] (DEFAULT)[address] [place] [address] HEPATIC FUNCTION PANELon Albumin [Mass/Vol] 3.3 g/dL Low 3.5-5.0 [facility] Comment on above: Performed By: #### C HM7, MGO, PALB, CA, HFP ####[facility] (DEFAULT)[address] [place] [address] ALP [Catalytic activity/Vol] 112 U/L Normal 32-126 [facility] Comment on above: Performed By: #### C HM7, MGO, PALB, CA, HFP ####[facility] (DEFAULT)[address] [place] [address] ALT [Catalytic activity/Vol] 34 U/L Normal 10-52 [facility] Comment on above: Performed By: #### C HM7, MGO, PALB, CA, HFP ####[facility] (DEFAULT)[address] [place] [address] AST [Catalytic activity/Vol] 14 U/L Normal 10-39 [facility] Comment on above: Performed By: #### C HM7, MGO, PALB, CA, HFP ####[facility] (DEFAULT)[address] [place] [address] Bilirubin [Mass/Vol] 0.2 mg/dL Normal <1.5 [facility] Comment on above: Performed By: #### C HM7, MGO, PALB, CA, HFP ####[facility] (DEFAULT)[address] [place] [address] Bilirubin.indirect [Mass/Vol] 0.1 mg/dL Normal <0.3 [facility] Comment on above: Performed By: #### C HM7, MGO, PALB, CA, HFP ####[facility] (DEFAULT)[address] [place] [address] Protein [Mass/Vol] 5.7 g/dL Low 6.4-8.3 [facility] Comment on above: Performed By: #### C HM7, MGO, PALB, CA, HFP ####[facility] (DEFAULT)[address] [place] [address] MAGNESIUMon 03-08-2024 Magnesium [Mass/Vol] 1.8 mg/dL Normal 1.6-2.6 [facility] Comment on above: Performed By: #### C HM7, MGO, PALB, CA, HFP ####[facility] (DEFAULT)[address] [place] [address] PREALBUMINon 03-08-2024 Prealbumin [Mass/Vol] 28 mg/dL Normal 17-34 [facility] Comment on above: Performed By: #### C HM7, MGO, PALB, CA, HFP ####[facility] (DEFAULT)[address] [place] [address] XR SHOULDER RIGHT 2+ VIEWSon 03-08-2024 XR [...] IMPRESSION: No gross fracture or dislocation. Normal [facility] PLATELET COUNTon 03-07-2024 Platelet mean volume (Bld) [Entitic vol] 10.4 fL Normal 8.7-12.3 [facility] Comment on above: Performed By: #### P LAT #### [facility] (DEFAULT) [address] [place] [address] Platelets (Bld) [#/Vol] 267 10*3/uL Normal 146-337 [facility] Comment on above: Performed By: #### P LAT #### [facility] (DEFAULT) [address] [place] [address] CBC AND ELECTRONIC DIFFon Basophils (Bld) [#/Vol] 0.04 10*3/uL Normal 0.00-0.09 [facility] Comment on above: Performed By: #### L [id number] #### [facility] (DEFAULT) [address] [address] Basophils/100 WBC (Bld) 0.4 % Normal [facility] Comment on above: Performed By: #### L [id number] #### [facility] (DEFAULT) [address] [address] DIFF STATUS Electronic Differential Normal [facility] Comment on above: Performed By: #### L [id number] #### [facility] (DEFAULT) [address] [address] Eosinophils (Bld) [#/Vol] 0.72 10*3/uL High 0.00-0.48 [facility] Comment on above: Performed By: #### L [id number] #### [facility] (DEFAULT) [address] [address] Eosinophils/100 WBC (Bld) 6.8 % Normal [facility] Comment on above: Performed By: #### L [id number] #### [facility] (DEFAULT) [address] [address] Hematocrit (Bld) [Volume fraction] 31.1 % Low 39.6-48.8 [facility] Comment on above: Performed By: #### L [id number] #### [facility] (DEFAULT) [address] [address] Hemoglobin (Bld) [Mass/Vol] 9.6 g/dL Low 13.4-16.8 [facility] Comment on above: Performed By: #### L [id number] #### [facility] (DEFAULT) [address] [address] Immature Grans % 1.1 % Normal [facility] Comment on above: Performed By: #### L [id number] #### [facility] (DEFAULT) [address] [address] Immature Grans Absolute 0.12 K/uL High <=0.07 [facility] Comment on above: Performed By: #### L [id number] #### [facility] (DEFAULT) [address] [address] Lymphocytes (Bld) [#/Vol] 2.76 10*3/uL Normal 0.83-3.57 [facility] Comment on above: Performed By: #### L [id number] #### [facility] (DEFAULT) [address] [address] Lymphocytes/100 WBC (Bld) 26.1 % Normal [facility] Comment on above: Performed By: #### L [id number] #### [facility] (DEFAULT) [address] [address] MCV (RBC) [Entitic vol] 87.1 fL Normal 79.0-94.5 [facility] Comment on above: Performed By: #### L [id number] #### [facility] (DEFAULT) [address] [address] Mean Cell Hgb 26.9 pg Normal 26.1-33.3 [facility] Comment on above: Performed By: #### L [id number] #### [facility] (DEFAULT) [address] [address] Mean Cell Hgb Conc 30.9 g/dL Low 31.9-36.5 [facility] Comment on above: Performed By: #### L [id number] #### [facility] (DEFAULT) [address] [address] Monocytes (Bld) [#/Vol] 0.68 10*3/uL Normal 0.24-0.93 [facility] Comment on above: Performed By: #### L [id number] #### [facility] (DEFAULT) [address] [address] Monocytes/100 WBC (Bld) 6.4 % Normal [facility] Comment on above: Performed By: #### L [id number] #### [facility] (DEFAULT) [address] [place] [address] Nucleated RBC 0.0 /100 WBC Normal <=0.2 [facility] Comment on above: Performed By: #### L [id number] #### [facility] (DEFAULT) [address] [place] [address] Platelet mean volume (Bld) [Entitic vol] 11.2 fL Normal 8.7-12.3 [facility] Comment on above: Performed By: #### L [id number] #### [facility] (DEFAULT) [address] [place] [address] Platelets (Bld) [#/Vol] 290 10*3/uL Normal 146-337 [facility] Comment on above: Performed By: #### L [id number] #### [facility] (DEFAULT) [address] [place] [address] RBC (Bld) [#/Vol] 3.57 10*6/uL Low 4.38-5.83 [facility] Comment on above: Performed By: #### L [id number] #### [facility] (DEFAULT) [address] [place] [address] RBC Distribution 14.7 % High 10.9-14.3 [facility] Comment on above: Performed By: #### L [id number] #### [facility] (DEFAULT) [address] [place] [address]25 Segs + Bands Auto 59.2 % Normal [facility] Comment on above: Performed By: #### L [id number] #### [facility] (DEFAULT) [address] [place] [address]36 Segs + Bands,Absolute Auto 6.25 K/uL High 1.57-6.19 [facility] Comment on above: Performed By: #### L [id number] #### [facility] (DEFAULT) [address] [place] [address] 38518 WBC (Bld) [#/Vol] 10.57 10*3/uL High 3.73-10.10 [facility] Comment on above: Performed By: #### L [id number] #### [facility] (DEFAULT) [address] [place] [address] CORTISOLon 03-04-2024 Cortisol 10.05 mcg/dL Normal 3.09-22.40 [facility] Comment on above: Order Comment: For i ndwelling catheters, specimen collection is acceptable on catheter day 1 and 2 only. ? Result Comment: Disc laimer: ? Serum cortisol testing is not used for screening, diagnosing, or excluding [place]'s syndrome. ? Serum morning cortisol testing is not used for monitoring replacement treatment in patients with adrenal deficiency. Performed By: #### U [id number] #### [facility] (DEFAULT) [address] [place] [address] US RENALon 03-03-2024 US RENAL EXAM: US [...] catheter in place. IMPRESSION: No hydronephrosis. Normal [facility] CBC AND ELECTRONIC DIFFon Basophils (Bld) [#/Vol] 0.05 10*3/uL Normal 0.00-0.09 [facility] Comment on above: Performed By: #### L [id number] ####[facility] (DEFAULT)[address] [place] [address] Basophils/100 WBC (Bld) 0.3 % Normal [facility] Comment on above: Performed By: #### L [id number] ####[facility] (DEFAULT)[address] [place] [address] DIFF STATUS Electronic Differential Normal [facility] Comment on above: Performed By: #### L [id number] ####[facility] (DEFAULT)[address] [facility] [place] [address] Eosinophils (Bld) [#/Vol] 0.70 10*3/uL High 0.00-0.48 [facility] Comment on above: Performed By: #### L [id number] ####[facility] (DEFAULT)[address] [facility] [place] [address] Eosinophils/100 WBC (Bld) 4.8 % Normal [facility] Comment on above: Performed By: #### L [id number] ####[facility] (DEFAULT)[address] [facility] [place] [address] Hematocrit (Bld) [Volume fraction] 32.1 % Low 39.6-48.8 [facility] Comment on above: Performed By: #### L [id number] ####[facility] (DEFAULT)[address] [facility] [place] [address] Hemoglobin (Bld) [Mass/Vol] 9.7 g/dL Low 13.4-16.8 [facility] Comment on above: Performed By: #### L [id number] ####[facility] (DEFAULT)[address] [facility] [place] [address] Immature Grans % 1.4 % Normal [facility] Comment on above: Performed By: #### L [id number] ####[facility] (DEFAULT)[address] [facility] [place] [address] Immature Grans Absolute 0.21 K/uL High <=0.07 [facility] Comment on above: Performed By: #### L [id number] ####[facility] (DEFAULT)[address] [facility] [place] [address] Lymphocytes (Bld) [#/Vol] 2.92 10*3/uL Normal 0.83-3.57 [facility] Comment on above: Performed By: #### L [id number] ####[facility] (DEFAULT)[address] [place] [address] Lymphocytes/100 WBC (Bld) 19.9 % Normal [facility] Comment on above: Performed By: #### L [id number] ####[facility] (DEFAULT)[address] [place] [address] MCV (RBC) [Entitic vol] 87.2 fL Normal 79.0-94.5 [facility] Comment on above: Performed By: #### L [id number] ####[facility] (DEFAULT)[address] [facility] [place] [address] Mean Cell Hgb 26.4 pg Normal 26.1-33.3 [facility] Comment on above: Performed By: #### L [id number] ####[facility] (DEFAULT)[address] [place] [address] Mean Cell Hgb Conc 30.2 g/dL Low 31.9-36.5 [facility] Comment on above: Performed By: #### L [id number] ####[facility] (DEFAULT)[address] [place] [address] Monocytes (Bld) [#/Vol] 1.08 10*3/uL High 0.24-0.93 [facility] Comment on above: Performed By: #### L [id number] ####[facility] (DEFAULT)[address] [facility] [place] [address] Monocytes/100 WBC (Bld) 7.4 % Normal [facility] Comment on above: Performed By: #### L [id number] ####[facility] (DEFAULT)[address] [place] [address] Nucleated RBC 0.0 /100 WBC Normal <=0.2 [facility] Comment on above: Performed By: #### L [id number] ####[facility] (DEFAULT)[address] [facility] [place] [address] Platelet mean volume (Bld) [Entitic vol] 10.2 fL Normal 8.7-12.3 [facility] Comment on above: Performed By: #### L [id number] ####[facility] (DEFAULT)[address] [facility] [place] [address] Platelets (Bld) [#/Vol] 326 10*3/uL Normal 146-337 [facility] Comment on above: Performed By: #### L [id number] ####[facility] (DEFAULT)[address] [facility] [place] [address] RBC (Bld) [#/Vol] 3.68 10*6/uL Low 4.38-5.83 [facility] Comment on above: Performed By: #### L [id number] ####[facility] (DEFAULT)[address] [facility] [place] [address] RBC Distribution 14.8 % High 10.9-14.3 [facility] Comment on above: Performed By: #### L [id number] ####[facility] (DEFAULT)[address] [facility] [place] [address] Segs + Bands Auto 66.2 % Normal [facility] Comment on above: Performed By: #### L [id number] ####[facility] (DEFAULT)[address] [facility] [place] [address] Segs + Bands,Absolute Auto 9.70 K/uL High 1.57-6.19 [facility] Comment on above: Performed By: #### L [id number] ####[facility] (DEFAULT)[address] [place] [address] WBC (Bld) [#/Vol] 14.66 10*3/uL High 3.73-10.10 [facility] Comment on above: Performed By: #### L [id number] ####[facility] (DEFAULT)[address] [place] [address] URINALYSIS REFLEX TO CULTURE PERFORMABLEon 03-02-2024 Appearance (U) Clear Normal Clear [facility] Comment on above: Order Comment: For i ndwelling catheters, specimen collection is acceptable on catheter day 1 and 2 only. ? Performed By: #### U [id number] #### [facility] (DEFAULT) [address] [place] [address] Bacteria PRESENT Abnormal ABSENT [facility] Comment on above: Order Comment: For i ndwelling catheters, specimen collection is acceptable on catheter day 1 and 2 only. ? Performed By: #### U [id number] #### [facility] (DEFAULT) [address] [place] [address] Blood Urine Trace Abnormal Negative [facility] Comment on above: Order Comment: For i ndwelling catheters, specimen collection is acceptable on catheter day 1 and 2 only. ? Performed By: #### U [id number] #### [facility] (DEFAULT) [address] [place] [address] Color (U) Yellow Normal Yellow [facility] Comment on above: Order Comment: For i ndwelling catheters, specimen collection is acceptable on catheter day 1 and 2 only. ? Performed By: #### U [id number] #### [facility] (DEFAULT) [address] [place] [address] Glucose Ql (U) Negative Normal Negative [facility] Comment on above: Order Comment: For i ndwelling catheters, specimen collection is acceptable on catheter day 1 and 2 only. ? Performed By: #### U [id number] #### [facility] (DEFAULT) [address] [place] [address] Ketones Ql (U) Negative Normal Negative [facility] Comment on above: Order Comment: For i ndwelling catheters, specimen collection is acceptable on catheter day 1 and 2 only. ? Performed By: #### U [id number] #### [facility] (DEFAULT) [address] [address] Leukocyte esterase Test strip Ql (U) Moderate Abnormal Negative [facility] Comment on above: Order Comment: For i ndwelling catheters, specimen collection is acceptable on catheter day 1 and 2 only. ? Performed By: #### U [id number] #### [facility] (DEFAULT) [address] [place] [address] 50982 Nitrites Urine Positive Abnormal Negative [facility] Comment on above: Order Comment: For i ndwelling catheters, specimen collection is acceptable on catheter day 1 and 2 only. ? Performed By: #### U [id number] #### [facility] (DEFAULT) [address] [address] pH (U) 6.5 [pH] Normal 5.0-7.0 [facility] Comment on above: Order Comment: For i ndwelling catheters, specimen collection is acceptable on catheter day 1 and 2 only. ? Performed By: #### U [id number] #### [facility] (DEFAULT) [address] [address] Protein Urine Trace Abnormal Negative [facility] Comment on above: Order Comment: For i ndwelling catheters, specimen collection is acceptable on catheter day 1 and 2 only. ? Performed By: #### U [id number] #### [facility] (DEFAULT) [address] [place] [address]70[address] RBC Urine 3-5 Abnormal 0-2 [facility] Comment on above: Order Comment: For i ndwelling catheters, specimen collection is acceptable on catheter day 1 and 2 only. ? Performed By: #### U [id number] #### [facility] (DEFAULT) [address] [address] Specific [place] Urine 1.019 Normal 1.001-1.035 [facility] Comment on above: Order Comment: For i ndwelling catheters, specimen collection is acceptable on catheter day 1 and 2 only. ? Performed By: #### U [id number] #### [facility] (DEFAULT) [address] [place] [address] Squamous/Epithelial Cells 0-2/hpf Normal 0-2/hpf, 3-5/hpf = 1+ [facility] Comment on above: Order Comment: For i ndwelling catheters, specimen collection is acceptable on catheter day 1 and 2 only. ? Performed By: #### U [id number] #### [facility] (DEFAULT) [address] [place] [address]89 Urobilinogen Urine 0.2 E.U./dL Normal 0.2 E.U/d L, 1.0 E.U/dL [facility] Comment on above: Order Comment: For i ndwelling catheters, specimen collection is acceptable on catheter day 1 and 2 only. ? Performed By: #### U [id number] #### [facility] (DEFAULT) [address] [place] [address] WBC LM.HPF (Urine sed) [#/Area] /[HPF] Abnormal 0 - 5 [facility] Comment on above: Order Comment: For i ndwelling catheters, specimen collection is acceptable on catheter day 1 and 2 only. ? Performed By: #### U [id number] #### [facility] (DEFAULT) [address] [address] URINE CULTUREon 03-02-2024 Cefepime [Susceptibility] <= Invalid Interpretation Code Susceptible <=2 ug/mL, Susceptible-D ose Dependent >2 ug/mL, Resistant >8 ug/mL [facility] Comment on above: Order Comment: For i [...] significant. Performed By: #### L [id number] #### [facility] (DEFAULT) [address] [address] Ciprofloxacin [Susceptibility] <=0.25 Invalid Interpretation Code Susceptible <=0.25 ug/mL, Intermediate >.25 ug/mL, Resistant >.5 ug/mL [facility] Comment on above: Order Comment: For i [...] significant. Performed By: #### L [id number] #### [facility] (DEFAULT) [address] [address] Piperacillin+Tazobact am [Susceptibility] <=4 Invalid Interpretation Code Susceptible <=8 ug/mL, Susceptible-D ose Dependent >8 ug/mL, Resistant >=32 ug/mL [facility] Comment on above: Order Comment: For i [...] significant. Performed By: #### L [id number] #### [facility] (DEFAULT) [address] [address] Tobramycin [Susceptibility] <= Invalid Interpretation Code Susceptible <=2 ug/mL, Intermediate >2 ug/mL, Resistant >=8 ug/mL [facility] Comment on above: Order Comment: For i [...] significant. Performed By: #### L [id number] #### [facility] (DEFAULT) [address] [place] [address] CALCIUMon 03-01-2024 Calcium [Mass/Vol] 8.9 mg/dL Normal 8.6-10.5 [facility] Comment on above: Performed By: #### L [id number] #### [facility] (DEFAULT) [address] [place] [address] CBC AND ELECTRONIC DIFFon Basophils (Bld) [#/Vol] 0.06 10*3/uL Normal 0.00-0.09 [facility] Comment on above: Performed By: #### U [id number] #### [facility] (DEFAULT) [address] [place] [address] Basophils/100 WBC (Bld) 0.5 % Normal [facility] Comment on above: Performed By: #### U [id number] #### [facility] (DEFAULT) [address] [place] [address] DIFF STATUS Electronic Differential Normal [facility] Comment on above: Performed By: #### U [id number] #### [facility] (DEFAULT) [address] [place] [address] Eosinophils (Bld) [#/Vol] 0.82 10*3/uL High 0.00-0.48 [facility] Comment on above: Performed By: #### U [id number] #### [facility] (DEFAULT) [address] [address] Eosinophils/100 WBC (Bld) 7.0 % Normal [facility] Comment on above: Performed By: #### U [id number] #### [facility] (DEFAULT) [address] [place] [address] Hematocrit (Bld) [Volume fraction] 31.6 % Low 39.6-48.8 [facility] Comment on above: Performed By: #### U [id number] #### [facility] (DEFAULT) [address] [address] Hemoglobin (Bld) [Mass/Vol] 9.8 g/dL Low 13.4-16.8 [facility] Comment on above: Performed By: #### U [id number] #### [facility] (DEFAULT) [address] [address] Immature Grans % 2.1 % Normal [facility] Comment on above: Performed By: #### U [id number] #### [facility] (DEFAULT) [address] [address] Immature Grans Absolute 0.24 K/uL High <=0.07 [facility] Comment on above: Performed By: #### U [id number] #### [facility] (DEFAULT) [address] [address] Lymphocytes (Bld) [#/Vol] 3.01 10*3/uL Normal 0.83-3.57 [facility] Comment on above: Performed By: #### U [id number] #### [facility] (DEFAULT) [address] [address] Lymphocytes/100 WBC (Bld) 25.8 % Normal [facility] Comment on above: Performed By: #### U [id number] #### [facility] (DEFAULT) [address] [address] MCV (RBC) [Entitic vol] 87.3 fL Normal 79.0-94.5 [facility] Comment on above: Performed By: #### U [id number] #### [facility] (DEFAULT) [address] [address] Mean Cell Hgb 27.1 pg Normal 26.1-33.3 [facility] Comment on above: Performed By: #### U [id number] #### [facility] (DEFAULT) [address] [address] Mean Cell Hgb Conc 31.0 g/dL Low 31.9-36.5 [facility] Comment on above: Performed By: #### U [id number] #### [facility] (DEFAULT) [address] [address] Monocytes (Bld) [#/Vol] 0.87 10*3/uL Normal 0.24-0.93 [facility] Comment on above: Performed By: #### U [id number] #### [facility] (DEFAULT) [address] [place] [address] Monocytes/100 WBC (Bld) 7.5 % Normal [facility] Comment on above: Performed By: #### U [id number] #### [facility] (DEFAULT) [address] [address] Nucleated RBC 0.0 /100 WBC Normal <=0.2 [facility] Comment on above: Performed By: #### U [id number] #### [facility] (DEFAULT) [address] [address] Platelet mean volume (Bld) [Entitic vol] 10.4 fL Normal 8.7-12.3 [facility] Comment on above: Performed By: #### U [id number] #### [facility] (DEFAULT) [address] [address] Platelets (Bld) [#/Vol] 338 10*3/uL High 146-337 [facility] Comment on above: Performed By: #### U [id number] #### [facility] (DEFAULT) [address] [address] RBC (Bld) [#/Vol] 3.62 10*6/uL Low 4.38-5.83 [facility] Comment on above: Performed By: #### U [id number] #### [facility] (DEFAULT) [address] [place] [address] RBC Distribution 14.6 % High 10.9-14.3 [facility] Comment on above: Performed By: #### U [id number] #### [facility] (DEFAULT) [address] [place] [address] Segs + Bands Auto 57.1 % Normal [facility] Comment on above: Performed By: #### U [id number] #### [facility] (DEFAULT) [address] [place] [address] Segs + Bands,Absolute Auto 6.67 K/uL High 1.57-6.19 [facility] Comment on above: Performed By: #### U [id number] #### [facility] (DEFAULT) [address] [place] [address] WBC (Bld) [#/Vol] 11.67 10*3/uL High 3.73-10.10 [facility] Comment on above: Performed By: #### U [id number] #### [facility] (DEFAULT) [address] [place] [address] CHEM 7 (LYTES,BUN,CREA,GLUC) on 03-01-2024 Anion gap [Moles/Vol] 14 mmol/L Normal 7-17 [facility] Comment on above: Performed By: #### L [id number] #### [facility] (DEFAULT) [address] [place] [address] Chloride [Moles/Vol] 103 mmol/L Normal 98-108 [facility] Comment on above: Performed By: #### L [id number] #### [facility] (DEFAULT) [address] [place] [address] CO2 [Moles/Vol] 29 mmol/L Normal 21-31 [facility] Comment on above: Performed By: #### L [id number] #### [facility] (DEFAULT) [address] [place] [address] Creatinine [Mass/Vol] 0.65 mg/dL Low 0.70-1.30 [facility] Comment on above: Performed By: #### L [id number] #### [facility] (DEFAULT) [address] [place] [address] eGFR, CKD-EPI, Male > Normal >=60 [facility] Comment on above: Result Comment: Repo rted eGFR is based on the CKD-EPI 2020 equation using creatinine, age, and sex. Performed By: #### L [id number] #### [facility] (DEFAULT) [address] [place] [address] Glucose [Mass/Vol] 85 mg/dL Normal 70-99 [facility] Comment on above: Performed By: #### L [id number] #### [facility] (DEFAULT) [address] [place] [address] Osmolality [Osmolality] 298 mosm/kg Normal 278-305 [facility] Comment on above: Performed By: #### L [id number] #### [facility] (DEFAULT) [address] [place] [address] Potassium [Moles/Vol] 4.5 mmol/L Normal 3.5-5.0 [facility] Comment on above: Performed By: #### L [id number] #### [facility] (DEFAULT) [address] [place] [address] Sodium [Moles/Vol] 141 mmol/L Normal 135-145 [facility] Comment on above: Performed By: #### L [id number] #### [facility] (DEFAULT) [address] [place] [address] Urea nitrogen [Mass/Vol] 22 mg/dL Normal 7-25 [facility] Comment on above: Performed By: #### L [id number] #### [facility] (DEFAULT) [address] [place] [address] Urea nitrogen/Creatinine [Mass ratio] 34 mg/mg Normal [facility] Comment on above: Performed By: #### L [id number] #### [facility] (DEFAULT) [address] [place] [address] MAGNESIUMon 03-01-2024 Magnesium [Mass/Vol] 1.7 mg/dL Normal 1.6-2.6 [facility] Comment on above: Performed By: #### L [id number] #### [facility] (DEFAULT) [address] [place] [address] PREALBUMINon 03-01-2024 Prealbumin [Mass/Vol] 29 mg/dL Normal 17-34 [facility] Comment on above: Performed By: #### L [id number] #### [facility] (DEFAULT) [address] [place] [address] CBC AND ELECTRONIC DIFFon Basophils (Bld) [#/Vol] 0.04 10*3/uL Normal 0.00-0.09 [facility] Comment on above: Performed By: #### P LAT #### [facility] (DEFAULT) [address] [place] [address] Basophils/100 WBC (Bld) 0.5 % Normal [facility] Comment on above: Performed By: #### P LAT #### [facility] (DEFAULT) [address] [place] [address] DIFF STATUS Electronic Differential Normal [facility] Comment on above: Performed By: #### P LAT #### [facility] (DEFAULT) [address] [place] [address] Eosinophils (Bld) [#/Vol] 0.66 10*3/uL High 0.00-0.48 [facility] Comment on above: Performed By: #### P LAT #### [facility] (DEFAULT) [address] [address] Eosinophils/100 WBC (Bld) 7.6 % Normal [facility] Comment on above: Performed By: #### P LAT #### [facility] (DEFAULT) [address] [place] [address] Hematocrit (Bld) [Volume fraction] 28.3 % Low 39.6-48.8 [facility] Comment on above: Performed By: #### P LAT #### [facility] (DEFAULT) [address] [address] Hemoglobin (Bld) [Mass/Vol] 8.8 g/dL Low 13.4-16.8 [facility] Comment on above: Performed By: #### P LAT #### [facility] (DEFAULT) [address] [address] Immature Grans % 0.7 % Normal [facility] Comment on above: Performed By: #### P LAT #### [facility] (DEFAULT) [address] [address] Immature Grans Absolute 0.06 K/uL Normal <=0.07 [facility] [facility] Comment on above: Performed By: #### P LAT #### [facility] (DEFAULT) [address] [address] Lymphocytes (Bld) [#/Vol] 2.35 10*3/uL Normal 0.83-3.57 [facility] Comment on above: Performed By: #### P LAT #### [facility] (DEFAULT) [address] [address] Lymphocytes/100 WBC (Bld) 27.1 % Normal [facility] Comment on above: Performed By: #### P LAT #### [facility] (DEFAULT) [address] [address] MCV (RBC) [Entitic vol] 87.6 fL Normal 79.0-94.5 [facility] Comment on above: Performed By: #### P LAT #### [facility] (DEFAULT) [address] [address] Mean Cell Hgb 27.2 pg Normal 26.1-33.3 [facility] Comment on above: Performed By: #### P LAT #### [facility] (DEFAULT) [address] [address] Mean Cell Hgb Conc 31.1 g/dL Low 31.9-36.5 [facility] Comment on above: Performed By: #### P LAT #### [facility] (DEFAULT) [address] [address] Monocytes (Bld) [#/Vol] 0.74 10*3/uL Normal 0.24-0.93 [facility] Comment on above: Performed By: #### P LAT #### [facility] (DEFAULT) [address] [address] Monocytes/100 WBC (Bld) 8.5 % Normal [facility] Comment on above: Performed By: #### P LAT #### [facility] (DEFAULT) [address] [address] Nucleated RBC 0.0 /100 WBC Normal <=0.2 [facility] Comment on above: Performed By: #### P LAT #### [facility] (DEFAULT) [address] [address] RBC (Bld) [#/Vol] 3.23 10*6/uL Low 4.38-5.83 [facility] Comment on above: Performed By: #### P LAT #### [facility] (DEFAULT) [address] [address] RBC Distribution 14.3 % Normal 10.9-14.3 [facility] Comment on above: Performed By: #### P LAT #### [facility] (DEFAULT) [address] [address] Segs + Bands Auto 55.6 % Normal [facility] Comment on above: Performed By: #### P LAT #### [facility] (DEFAULT) [address] [address] Segs + Bands,Absolute Auto 4.83 K/uL Normal 1.57-6.19 [facility] Comment on above: Performed By: #### P LAT #### [facility] (DEFAULT) [address] [address] WBC (Bld) [#/Vol] 8.68 10*3/uL Normal 3.73-10.10 [facility] Comment on above: Performed By: #### P LAT #### [facility] (DEFAULT) [address] [place] [address] PLATELET COUNTon 02-27-2024 Platelet mean volume (Bld) [Entitic vol] 10.5 fL Normal 8.7-12.3 [facility] Comment on above: Performed By: #### P LAT #### [facility] (DEFAULT) [address] [place] [address] Platelets (Bld) [#/Vol] 276 10*3/uL Normal 146-337 [facility] Comment on above: Performed By: #### P LAT #### [facility] (DEFAULT) [address] [place] [address] ANTI XA LMWH (ENOXAPARIN),*E XACT TIME REQUIRED* 4 HR Justice 02-26-2024 Anti Xa LMWH (Enoxaparin) 4 Hr Post 0.24 Anti-Xa IU/mL Low 0.60-1.00 [facility] Comment on above: Order Comment: For i ndwelling catheters, specimen collection is acceptable on catheter day 1 and 2 only. ? Result Comment: Ther apeutic range applies to 4 hour post dose collections. Performed By: #### U [id number] #### [facility] (DEFAULT) [address] [place] [address] CREATININE SERUMon 4 Creatinine [Mass/Vol] 0.56 mg/dL Low 0.70-1.30 [facility] Comment on above: Performed By: #### C REAB ####[facility] (DEFAULT)[address] [place] [address] eGFR, CKD-EPI, Male > Normal >=60 [facility] Comment on above: Result Comment: Repo rted eGFR is based on the CKD-EPI 2020 equation using creatinine, age, and sex. Performed By: #### C REAB ####[facility] (DEFAULT)[address] [place] [address] ANTI XA LMWH (ENOXAPARIN),*E XACT TIME REQUIRED* 4 HR Justice 02-25-2024 Anti Xa LMWH (Enoxaparin) 4 Hr Post 0.16 Anti-Xa IU/mL Low 0.60-1.00 [facility] Comment on above: Order Comment: Draw 4 hours after enoxaparin dose Result Comment: Ther apeutic range applies to 4 hour post dose collections. Performed By: #### L [id number] #### [facility] (DEFAULT) [address] [place] [address] CREATININE SERUMon Creatinine [Mass/Vol] 0.76 mg/dL Normal 0.70-1.30 [facility] Comment on above: Performed By: #### L [id number] #### [facility] (DEFAULT) [address] [address] eGFR, CKD-EPI, Male > Normal >=60 [facility] Comment on above: Result Comment: Repo rted eGFR is based on the CKD-EPI 2020 equation using creatinine, age, and sex. Performed By: #### L [id number] #### [facility] (DEFAULT) [address] [address] CBC AND ELECTRONIC DIFFon Abs Baso Auto < Normal 0.00-0.09 [facility] Comment on above: Performed By: #### L [id number] #### [facility] (DEFAULT) [address] [place] [address] Basophils/100 WBC (Bld) 0.2 % Normal [facility] Comment on above: Performed By: #### L [id number] #### [facility] (DEFAULT) [address] [address] DIFF STATUS Electronic Differential Normal [facility] Comment on above: Performed By: #### L [id number] #### [facility] (DEFAULT) [address] [place] [address] Eosinophils (Bld) [#/Vol] 0.48 10*3/uL Normal 0.00-0.48 [facility] Comment on above: Performed By: #### L [id number] #### [facility] (DEFAULT) [address] [address] Eosinophils/100 WBC (Bld) 3.8 % Normal [facility] Comment on above: Performed By: #### L [id number] #### [facility] (DEFAULT) [address] [address] Hematocrit (Bld) [Volume fraction] 25.4 % Low 39.6-48.8 [facility] Comment on above: Performed By: #### L [id number] #### [facility] (DEFAULT) [address] [address] Hemoglobin (Bld) [Mass/Vol] 7.8 g/dL Low 13.4-16.8 [facility] Comment on above: Performed By: #### L [id number] #### [facility] (DEFAULT) [address] [address] Immature Grans % 0.6 % Normal [facility] Comment on above: Performed By: #### L [id number] #### [facility] (DEFAULT) [address] [address] Immature Grans Absolute 0.07 K/uL Normal <=0.07 [facility] Comment on above: Performed By: #### L [id number] #### [facility] (DEFAULT) [address] [place] [address] Lymphocytes (Bld) [#/Vol] 1.91 10*3/uL Normal 0.83-3.57 [facility] Comment on above: Performed By: #### L [id number] #### [facility] (DEFAULT) [address] [address] Lymphocytes/100 WBC (Bld) 15.2 % Normal [facility] Comment on above: Performed By: #### L [id number] #### [facility] (DEFAULT) [address] [place] [address] MCV (RBC) [Entitic vol] 89.4 fL Normal 79.0-94.5 [facility] Comment on above: Performed By: #### L [id number] #### [facility] (DEFAULT) [address] [place] [address] Mean Cell Hgb 27.5 pg Normal 26.1-33.3 [facility] Comment on above: Performed By: #### L [id number] #### [facility] (DEFAULT) [address] [place] [address] Mean Cell Hgb Conc 30.7 g/dL Low 31.9-36.5 [facility] Comment on above: Performed By: #### L [id number] #### [facility] (DEFAULT) [address] [place] [address] Monocytes (Bld) [#/Vol] 1.03 10*3/uL High 0.24-0.93 [facility] Comment on above: Performed By: #### L [id number] #### [facility] (DEFAULT) [address] [address] Monocytes/100 WBC (Bld) 8.2 % Normal [facility] Comment on above: Performed By: #### L [id number] #### [facility] (DEFAULT) [address] [address] Nucleated RBC 0.0 /100 WBC Normal <=0.2 [facility] Comment on above: Performed By: #### L [id number] #### [facility] (DEFAULT) [address] [place] [address] Platelet mean volume (Bld) [Entitic vol] 10.7 fL Normal 8.7-12.3 [facility] Comment on above: Performed By: #### L [id number] #### [facility] (DEFAULT) [address] [place] [address] Platelets (Bld) [#/Vol] 203 10*3/uL Normal 146-337 [facility] Comment on above: Performed By: #### L [id number] #### [facility] (DEFAULT) [address] [place] [address] RBC (Bld) [#/Vol] 2.84 10*6/uL Low 4.38-5.83 [facility] Comment on above: Performed By: #### L [id number] #### [facility] (DEFAULT) [address] [place] [address] RBC Distribution 14.9 % High 10.9-14.3 [facility] Comment on above: Performed By: #### L [id number] #### [facility] (DEFAULT) [address] [place] [address] Segs + Bands Auto 72.0 % Normal [facility] Comment on above: Performed By: #### L [id number] #### [facility] (DEFAULT) [address] [place] [address] Segs + Bands,Absolute Auto 9.06 K/uL High 1.57-6.19 [facility] Comment on above: Performed By: #### L [id number] #### [facility] (DEFAULT) [address] [place] [address] WBC (Bld) [#/Vol] 12.57 10*3/uL High 3.73-10.10 [facility] Comment on above: Performed By: #### L [id number] #### [facility] (DEFAULT) [address] [place] [address] CREATININE SERUMon 4 Creatinine [Mass/Vol] 0.52 mg/dL Low 0.70-1.30 [facility] Comment on above: Performed By: #### C REAB, MGO ####[facility] (DEFAULT)[address] [place] [address] eGFR, CKD-EPI, Male > Normal >=60 [facility] Comment on above: Result Comment: Repo rted eGFR is based on the CKD-EPI 2020 equation using creatinine, age, and sex. Performed By: #### C CARLOS MGO ####[facility] (DEFAULT)[address] [place] [address] MAGNESIUMon 02-24-2024 Magnesium [Mass/Vol] 2.0 mg/dL Normal 1.6-2.6 [facility] Comment on above: Performed By: #### C CARLOS MGO ####[facility] (DEFAULT)[address] [place] [address] CALCIUMon 02-23-2024 Calcium [Mass/Vol] 8.0 mg/dL Low 8.6-10.5 [facility] Comment on above: Performed By: #### P LAT #### [facility] (DEFAULT) [address] [place] [address] CBC AND ELECTRONIC DIFFon Abs Baso Auto < Normal 0.00-0.09 [facility] Comment on above: Performed By: #### L [id number] #### [facility] (DEFAULT) [address] [place] [address] Basophils/100 WBC (Bld) 0.2 % Normal [facility] Comment on above: Performed By: #### L [id number] #### [facility] (DEFAULT) [address] [place] [address] DIFF STATUS Electronic Differential Normal [facility] Comment on above: Performed By: #### L [id number] #### [facility] (DEFAULT) [address] [place] [address] Eosinophils (Bld) [#/Vol] 0.54 10*3/uL High 0.00-0.48 [facility] Comment on above: Performed By: #### L [id number] #### [facility] (DEFAULT) [address] [place] [address] Eosinophils/100 WBC (Bld) 4.3 % Normal [facility] Comment on above: Performed By: #### L [id number] #### [facility] (DEFAULT) [address] [address] Hematocrit (Bld) [Volume fraction] 26.3 % Low 39.6-48.8 [facility] Comment on above: Performed By: #### L [id number] #### [facility] (DEFAULT) [address] [address] Hemoglobin (Bld) [Mass/Vol] 8.1 g/dL Low 13.4-16.8 [facility] Comment on above: Performed By: #### L [id number] #### [facility] (DEFAULT) [address] [address] Immature Grans % 0.4 % Normal [facility] Comment on above: Performed By: #### L [id number] #### [facility] (DEFAULT) [address] [address] Immature Grans Absolute 0.05 K/uL Normal <=0.07 [facility] Comment on above: Performed By: #### L [id number] #### [facility] (DEFAULT) [address] [address] Lymphocytes (Bld) [#/Vol] 1.83 10*3/uL Normal 0.83-3.57 [facility] Comment on above: Performed By: #### L [id number] #### [facility] (DEFAULT) [address] [address] Lymphocytes/100 WBC (Bld) 14.5 % Normal [facility] Comment on above: Performed By: #### L [id number] #### [facility] (DEFAULT) [address] [address] MCV (RBC) [Entitic vol] 90.1 fL Normal 79.0-94.5 [facility] Comment on above: Performed By: #### L [id number] #### [facility] (DEFAULT) [address] [address] Mean Cell Hgb 27.7 pg Normal 26.1-33.3 [facility] Comment on above: Performed By: #### L [id number] #### [facility] (DEFAULT) [address] [place] [address] Mean Cell Hgb Conc 30.8 g/dL Low 31.9-36.5 [facility] Comment on above: Performed By: #### L [id number] #### [facility] (DEFAULT) [address] [place] [address] Monocytes (Bld) [#/Vol] 0.90 10*3/uL Normal 0.24-0.93 [facility] Comment on above: Performed By: #### L [id number] #### [facility] (DEFAULT) [address] [place] [address] Monocytes/100 WBC (Bld) 7.1 % Normal [facility] Comment on above: Performed By: #### L [id number] #### [facility] (DEFAULT) [address] [place] [address] Nucleated RBC 0.0 /100 WBC Normal <=0.2 [facility] Comment on above: Performed By: #### L [id number] #### [facility] (DEFAULT) [address] [place] [address] Platelet mean volume (Bld) [Entitic vol] 10.6 fL Normal 8.7-12.3 [facility] Comment on above: Performed By: #### L [id number] #### [facility] (DEFAULT) [address] [place] [address] Platelets (Bld) [#/Vol] 215 10*3/uL Normal 146-337 [facility] Comment on above: Performed By: #### L [id number] #### [facility] (DEFAULT) [address] [place] [address] RBC (Bld) [#/Vol] 2.92 10*6/uL Low 4.38-5.83 [facility] Comment on above: Performed By: #### L [id number] #### [facility] (DEFAULT) [address] [place] [address] RBC Distribution 15.2 % High 10.9-14.3 [facility] Comment on above: Performed By: #### L [id number] #### [facility] (DEFAULT) [address] [place] [address] Segs + Bands Auto 73.5 % Normal [facility] Comment on above: Performed By: #### L [id number] #### [facility] (DEFAULT) [address] [place] [address] Segs + Bands,Absolute Auto 9.27 K/uL High 1.57-6.19 [facility] Comment on above: Performed By: #### L [id number] #### [facility] (DEFAULT) [address] [place] [address] WBC (Bld) [#/Vol] 12.62 10*3/uL High 3.73-10.10 [facility] Comment on above: Performed By: #### L [id number] #### [facility] (DEFAULT) [address] [place] [address] CHEM 7 (LYTES,BUN,CREA,GLUC) on 02-23-2024 Anion gap [Moles/Vol] 15 mmol/L Normal 7-17 [facility] Comment on above: Performed By: #### U R #### [facility] (DEFAULT) [address] [place] [address] Chloride [Moles/Vol] 104 mmol/L Normal 98-108 [facility] Comment on above: Performed By: #### U R #### [facility] (DEFAULT) [address] [place] [address] CO2 [Moles/Vol] 28 mmol/L Normal 21-31 [facility] Comment on above: Performed By: #### U R #### [facility] (DEFAULT) [address] [place] [address] Creatinine [Mass/Vol] 0.55 mg/dL Low 0.70-1.30 [facility] Comment on above: Performed By: #### U R #### [facility] (DEFAULT) [address] [place] [address] eGFR, CKD-EPI, Male > Normal >=60 [facility] Comment on above: Result Comment: Repo rted eGFR is based on the CKD-EPI 2020 equation using creatinine, age, and sex. Performed By: #### U R #### [facility] (DEFAULT) [address] [place] [address] Glucose [Mass/Vol] 84 mg/dL Normal 70-99 [facility] Comment on above: Performed By: #### U R #### [facility] (DEFAULT) [address] [place] [address] Osmolality [Osmolality] 298 mosm/kg Normal 278-305 [facility] Comment on above: Performed By: #### U R #### [facility] (DEFAULT) [address] [place] [address] Potassium [Moles/Vol] 3.8 mmol/L Normal 3.5-5.0 [facility] Comment on above: Performed By: #### U R #### [facility] (DEFAULT) [address] [place] [address] Sodium [Moles/Vol] 143 mmol/L Normal 135-145 [facility] Comment on above: Performed By: #### U R #### [facility] (DEFAULT) [address] [place] [address]383 Urea nitrogen [Mass/Vol] 16 mg/dL Normal 7-25 [facility] Comment on above: Performed By: #### U R #### [facility] (DEFAULT) [address] [place] [address] Urea nitrogen/Creatinine [Mass ratio] 29 mg/mg Normal [facility] Comment on above: Performed By: #### U R #### [facility] (DEFAULT) [address] [place] [address] MAGNESIUMon 02-23-2024 Magnesium [Mass/Vol] 1.5 mg/dL Low 1.6-2.6 [facility] Comment on above: Performed By: #### U R #### [facility] (DEFAULT) [address] [place] [address] PREALBUMINon 02-23-2024 Prealbumin [Mass/Vol] 22 mg/dL Normal 17-34 [facility] Comment on above: Performed By: #### U R #### [facility] (DEFAULT) [address] [place] [address] CREATININE SERUMon 4 Creatinine [Mass/Vol] 0.50 mg/dL Low 0.70-1.30 [facility] Comment on above: Performed By: #### L [id number] #### [facility] (DEFAULT) [address] [place] [address] eGFR, CKD-EPI, Male > Normal >=60 [facility] Comment on above: Result Comment: Repo rted eGFR is based on the CKD-EPI 2020 equation using creatinine, age, and sex. Performed By: #### L [id number] #### [facility] (DEFAULT) [address] [place] [address] VANCOMYCIN LEVEL, TROUGH (MT E DRUG LEVEL)on 02-22-2024 Vancomycin, Trough 15.7 mcg/mL Normal Therapeut ic Range: 10.0-20.0 mcg/mL [facility] Comment on above: Order Comment: Pleas e draw level at specified interval PRIOR to next dose. Performed By: #### V ANCTR #### [facility] (DEFAULT) [address] [place] [address] CREATININE SERUMon 4 Creatinine [Mass/Vol] 0.59 mg/dL Low 0.70-1.30 [facility] Comment on above: Performed By: #### P LAT #### [facility] (DEFAULT) [address] [address] eGFR, CKD-EPI, Male > Normal >=60 [facility] Comment on above: Result Comment: Repo rted eGFR is based on the CKD-EPI 2020 equation using creatinine, age, and sex. Performed By: #### P LAT #### [facility] (DEFAULT) [address] [address] PLATELET COUNTon 02-21-2024 Platelet mean volume (Bld) [Entitic vol] 10.4 fL Normal 8.7-12.3 [facility] Comment on above: Performed By: #### P LAT ####[facility] (DEFAULT)[address] [address] Platelets (Bld) [#/Vol] 235 10*3/uL Normal 146-337 [facility] Comment on above: Performed By: #### P LAT ####[facility] (DEFAULT)[address] [address] CREATININE SERUMon Creatinine [Mass/Vol] 0.49 mg/dL Low 0.70-1.30 [facility] Comment on above: Performed By: #### L [id number] #### [facility] (DEFAULT) [address] [address] eGFR, CKD-EPI, Male > Normal >=60 [facility] Comment on above: Result Comment: Repo rted eGFR is based on the CKD-EPI 2020 equation using creatinine, age, and sex. Performed By: #### L [id number] #### [facility] (DEFAULT) [address] [address] URINALYSIS REFLEX TO CULTURE PERFORMABLEon 02-20-2024 Appearance (U) Clear Normal Clear [facility] Comment on above: Order Comment: For i ndwelling catheters, specimen collection is acceptable on catheter day 1 and 2 only. ? Performed By: #### L [id number] #### [facility] (DEFAULT) [address] [place] [address] Bacteria PRESENT Abnormal ABSENT [facility] Comment on above: Order Comment: For i ndwelling catheters, specimen collection is acceptable on catheter day 1 and 2 only. ? Performed By: #### L [id number] #### [facility] (DEFAULT) [address] [place] [address]98 Blood Urine Small Abnormal Negative [facility] Comment on above: Order Comment: For i ndwelling catheters, specimen collection is acceptable on catheter day 1 and 2 only. ? Performed By: #### L [id number] #### [facility] (DEFAULT) [address] [place] [address] Color (U) Yellow Normal Yellow [facility] Comment on above: Order Comment: For i ndwelling catheters, specimen collection is acceptable on catheter day 1 and 2 only. ? Performed By: #### L [id number] #### [facility] (DEFAULT) [address] [place] [address] Glucose Ql (U) Negative Normal Negative [facility] Comment on above: Order Comment: For i ndwelling catheters, specimen collection is acceptable on catheter day 1 and 2 only. ? Performed By: #### L [id number] #### [facility] (DEFAULT) [address] [place] [address] Hyaline casts LM Ql (Urine sed) 3 - 5 Abnormal (none) [facility] Comment on above: Order Comment: For i ndwelling catheters, specimen collection is acceptable on catheter day 1 and 2 only. ? Performed By: #### L [id number] #### [facility] (DEFAULT) [address] [place] [address] Ketones Ql (U) Negative Normal Negative [facility] Comment on above: Order Comment: For i ndwelling catheters, specimen collection is acceptable on catheter day 1 and 2 only. ? Performed By: #### L [id number] #### [facility] (DEFAULT) [address] [place] [address] Leukocyte esterase Test strip Ql (U) Moderate Abnormal Negative [facility] Comment on above: Order Comment: For i ndwelling catheters, specimen collection is acceptable on catheter day 1 and 2 only. ? Performed By: #### L [id number] #### [facility] (DEFAULT) [address] [place] [address]9736 Nitrites Urine Positive Abnormal Negative [facility] Comment on above: Order Comment: For i ndwelling catheters, specimen collection is acceptable on catheter day 1 and 2 only. ? Performed By: #### L [id number] #### [facility] (DEFAULT) [address] [place] [address] pH (U) 6.5 [pH] Normal 5.0-7.0 [facility] Comment on above: Order Comment: For i ndwelling catheters, specimen collection is acceptable on catheter day 1 and 2 only. ? Performed By: #### L [id number] #### [facility] (DEFAULT) [address] [place] [address] 98298 Protein Urine Negative Normal Negative [facility] Comment on above: Order Comment: For i ndwelling catheters, specimen collection is acceptable on catheter day 1 and 2 only. ? Performed By: #### L [id number] #### [facility] (DEFAULT) [address] [address] RBC Urine 6-10 Abnormal 0-2 [facility] Comment on above: Order Comment: For i ndwelling catheters, specimen collection is acceptable on catheter day 1 and 2 only. ? Performed By: #### L [id number] #### [facility] (DEFAULT) [address] [address] Specific [place] Urine 1.011 Normal 1.001-1.035 [facility] Comment on above: Order Comment: For i ndwelling catheters, specimen collection is acceptable on catheter day 1 and 2 only. ? Performed By: #### L [id number] #### [facility] (DEFAULT) [address] [place] [address] Squamous/Epithelial Cells 0-2/hpf Normal 0-2/hpf, 3-5/hpf = 1+ [facility] Comment on above: Order Comment: For i ndwelling catheters, specimen collection is acceptable on catheter day 1 and 2 only. ? Performed By: #### L [id number] #### [facility] (DEFAULT) [address] [address] Urobilinogen Urine 0.2 E.U./dL Normal 0.2 E.U/d L, 1.0 E.U/dL [facility] Comment on above: Order Comment: For i ndwelling catheters, specimen collection is acceptable on catheter day 1 and 2 only. ? Performed By: #### L [id number] #### [facility] (DEFAULT) [address] [address] WBC Urine 11 - 20 Abnormal 0 - 5 [facility] Comment on above: Order Comment: For i ndwelling catheters, specimen collection is acceptable on catheter day 1 and 2 only. ? Performed By: #### L [id number] #### [facility] (DEFAULT) [address] [address] URINE CULTUREon 02-20-2024 Amikacin [Susceptibility] <= Invalid Interpretation Code [facility] Comment on above: Order Comment: For i [...] Performed By: #### U R #### [facility] (DEFAULT) [address] [address] Ampicillin [Susceptibility] >=32 Resistant [facility] Comment on above: Order Comment: For i [...] Performed By: #### U R #### [facility] (DEFAULT) [address] [place] [address] Ampicillin+Sulbactam [Susceptibility] 8 ug/mL Invalid Interpretation Code [facility] Comment on above: Order Comment: For i [...] Performed By: #### U R #### [facility] (DEFAULT) [address] [address] ceFAZolin [Susceptibility] <= Invalid Interpretation Code [facility] Comment on above: Order Comment: For i [...] cefdinir. Performed By: #### U R #### [facility] (DEFAULT) [address] [address] Cefepime [Susceptibility] <= Invalid Interpretation Code [facility] Comment on above: Order Comment: For i [...] ? Performed By: #### U R #### [facility] (DEFAULT) [address] [address] cefTRIAXone [Susceptibility] <= Invalid Interpretation Code [facility] Comment on above: Order Comment: For i [...] Performed By: #### U R #### [facility] (DEFAULT) [address] [address] Ciprofloxacin [Susceptibility] <= Invalid Interpretation Code [facility] Comment on above: Order Comment: For i [...] Performed By: #### U R #### [facility] (DEFAULT) [address] [address] Gentamicin [Susceptibility] <= Invalid Interpretation Code [facility] Comment on above: Order Comment: For i [...] Performed By: #### U R #### [facility] (DEFAULT) [address] [address] Nitrofurantoin [Susceptibility] 128 ug/mL Resistant [facility] Comment on above: Order Comment: For i [...] ? Performed By: #### U R #### [facility] (DEFAULT) [address] [address] Tobramycin [Susceptibility] <= Invalid Interpretation Code [facility] Comment on above: Order Comment: For i [...] ? Performed By: #### U R #### [facility] (DEFAULT) [address] [address] Trimethoprim+Sulfamet hoxazole [Susceptibility] <= Invalid Interpretation Code [facility] Comment on above: Order Comment: For i [...] ? Performed By: #### U R #### [facility] (DEFAULT) [address] [address] VANCOMYCIN LEVEL, TROUGH (MT E DRUG LEVEL)on 02-20-2024 Vancomycin, Trough 6.2 mcg/mL Low Therapeut ic Range: 10.0-20.0 mcg/mL [facility] Comment on above: Order Comment: Pleas e draw level at specified interval PRIOR to next dose. Performed By: #### L [id number] #### [facility] (DEFAULT) [address] [address] CALCIUMon 02-19-2024 Calcium [Mass/Vol] 8.4 mg/dL Low 8.6-10.5 [facility] Comment on above: Performed By: #### U R #### [facility] (DEFAULT) [address] [address] CBC AND ELECTRONIC DIFFon Basophils (Bld) [#/Vol] 0.05 10*3/uL Normal 0.00-0.09 [facility] Comment on above: Performed By: #### L [id number] #### [facility] (DEFAULT) [address] [address] Basophils/100 WBC (Bld) 0.7 % Normal [facility] Comment on above: Performed By: #### L [id number] #### [facility] (DEFAULT) [address] [address] DIFF STATUS Electronic Differential Normal [facility] Comment on above: Performed By: #### L [id number] #### [facility] (DEFAULT) [address] [place] [address] Eosinophils (Bld) [#/Vol] 0.49 10*3/uL High 0.00-0.48 [facility] Comment on above: Performed By: #### L [id number] #### [facility] (DEFAULT) [address] [address] Eosinophils/100 WBC (Bld) 6.6 % Normal [facility] Comment on above: Performed By: #### L [id number] #### [facility] (DEFAULT) [address] [address] Hematocrit (Bld) [Volume fraction] 27.3 % Low 39.6-48.8 [facility] Comment on above: Performed By: #### L [id number] #### [facility] (DEFAULT) [address] [address] Hemoglobin (Bld) [Mass/Vol] 8.4 g/dL Low 13.4-16.8 [facility] Comment on above: Performed By: #### L [id number] #### [facility] (DEFAULT) [address] [address] Immature Grans % 0.4 % Normal [facility] Comment on above: Performed By: #### L [id number] #### [facility] (DEFAULT) [address] [address] Immature Grans Absolute < Normal <=0.07 [facility] Comment on above: Performed By: #### L [id number] #### [facility] (DEFAULT) [address] [address] Lymphocytes (Bld) [#/Vol] 1.88 10*3/uL Normal 0.83-3.57 [facility] Comment on above: Performed By: #### L [id number] #### [facility] (DEFAULT) [address] [address] Lymphocytes/100 WBC (Bld) 25.3 % Normal [facility] Comment on above: Performed By: #### L [id number] #### [facility] (DEFAULT) [address] [address] MCV (RBC) [Entitic vol] 88.9 fL Normal 79.0-94.5 [facility] Comment on above: Performed By: #### L [id number] #### [facility] (DEFAULT) [address] [address] Mean Cell Hgb 27.4 pg Normal 26.1-33.3 [facility] Comment on above: Performed By: #### L [id number] #### [facility] (DEFAULT) [address] [address] Mean Cell Hgb Conc 30.8 g/dL Low 31.9-36.5 [facility] Comment on above: Performed By: #### L [id number] #### [facility] (DEFAULT) [address] [place] [address] Monocytes (Bld) [#/Vol] 0.69 10*3/uL Normal 0.24-0.93 [facility] Comment on above: Performed By: #### L [id number] #### [facility] (DEFAULT) [address] [address] Monocytes/100 WBC (Bld) 9.3 % Normal [facility] Comment on above: Performed By: #### L [id number] #### [facility] (DEFAULT) [address] [address] Nucleated RBC 0.0 /100 WBC Normal <=0.2 [facility] Comment on above: Performed By: #### L [id number] #### [facility] (DEFAULT) [address] [place] [address] Platelet mean volume (Bld) [Entitic vol] 10.5 fL Normal 8.7-12.3 [facility] Comment on above: Performed By: #### L [id number] #### [facility] (DEFAULT) [address] [place] [address] Platelets (Bld) [#/Vol] 268 10*3/uL Normal 146-337 [facility] Comment on above: Performed By: #### L [id number] #### [facility] (DEFAULT) [address] [place] [address] RBC (Bld) [#/Vol] 3.07 10*6/uL Low 4.38-5.83 [facility] Comment on above: Performed By: #### L [id number] #### [facility] (DEFAULT) [address] [place] [address] RBC Distribution 14.7 % High 10.9-14.3 [facility] Comment on above: Performed By: #### L [id number] #### [facility] (DEFAULT) [address] [place] [address] Segs + Bands Auto 57.7 % Normal [facility] Comment on above: Performed By: #### L [id number] #### [facility] (DEFAULT) [address] [place] [address] Segs + Bands,Absolute Auto 4.30 K/uL Normal 1.57-6.19 [facility] Comment on above: Performed By: #### L [id number] #### [facility] (DEFAULT) [address] [place] [address] WBC (Bld) [#/Vol] 7.44 10*3/uL Normal 3.73-10.10 [facility] Comment on above: Performed By: #### L [id number] #### [facility] (DEFAULT) [address] [place] [address] CHEM 7 (LYTES,BUN,CREA,GLUC) on 02-19-2024 Anion gap [Moles/Vol] 15 mmol/L Normal 7-17 [facility] Comment on above: Performed By: #### U R #### [facility] (DEFAULT) [address] [place] [address] Chloride [Moles/Vol] 103 mmol/L Normal 98-108 [facility] Comment on above: Performed By: #### U R #### [facility] (DEFAULT) [address] [place] [address] CO2 [Moles/Vol] 27 mmol/L Normal 21-31 [facility] Comment on above: Performed By: #### U R #### [facility] (DEFAULT) [address] [place] [address] Creatinine [Mass/Vol] 0.56 mg/dL Low 0.70-1.30 [facility] Comment on above: Performed By: #### U R #### [facility] (DEFAULT) [address] [place] [address] eGFR, CKD-EPI, Male > Normal >=60 [facility] Comment on above: Result Comment: Repo rted eGFR is based on the CKD-EPI 2020 equation using creatinine, age, and sex. Performed By: #### U R #### [facility] (DEFAULT) [address] [place] [address] Glucose [Mass/Vol] 91 mg/dL Normal 70-99 [facility] Comment on above: Performed By: #### U R #### [facility] (DEFAULT) [address] [place] [address] Osmolality [Osmolality] 294 mosm/kg Normal 278-305 [facility] Comment on above: Performed By: #### U R #### [facility] (DEFAULT) [address] [place] [address] Potassium [Moles/Vol] 4.1 mmol/L Normal 3.5-5.0 [facility] Comment on above: Performed By: #### U R #### [facility] (DEFAULT) [address] [place] [address] Sodium [Moles/Vol] 141 mmol/L Normal 135-145 [facility] Comment on above: Performed By: #### U R #### [facility] (DEFAULT) [address] [place] [address]71 Urea nitrogen [Mass/Vol] 13 mg/dL Normal 7-25 [facility] Comment on above: Performed By: #### U R #### [facility] (DEFAULT) [address] [place] [address] Urea nitrogen/Creatinine [Mass ratio] 23 mg/mg Normal [facility] Comment on above: Performed By: #### U R #### [facility] (DEFAULT) [address] [place] [address] HEPATIC FUNCTION PANELon Albumin [Mass/Vol] 2.9 g/dL Low 3.5-5.0 [facility] Comment on above: Performed By: #### U R #### [facility] (DEFAULT) [address] [place] [address] ALP [Catalytic activity/Vol] 72 U/L Normal 32-126 [facility] Comment on above: Performed By: #### U R #### [facility] (DEFAULT) [address] [place] [address] ALT [Catalytic activity/Vol] 7 U/L Low 10-52 [facility] Comment on above: Performed By: #### U R #### [facility] (DEFAULT) [address] [place] [address] AST [Catalytic activity/Vol] 13 U/L Normal 10-39 [facility] Comment on above: Performed By: #### U R #### [facility] (DEFAULT) [address] [place] [address] Bilirubin [Mass/Vol] 0.3 mg/dL Normal <1.5 [facility] Comment on above: Performed By: #### U R #### [facility] (DEFAULT) [address] [place] [address] Bilirubin.indirect [Mass/Vol] 0.1 mg/dL Normal <0.3 [facility] Comment on above: Performed By: #### U R #### [facility] (DEFAULT) [address] [place] [address]75 Protein [Mass/Vol] 5.1 g/dL Low 6.4-8.3 [facility] Comment on above: Performed By: #### U R #### [facility] (DEFAULT) [address] [place] [address] MAGNESIUMon 02-19-2024 Magnesium [Mass/Vol] 1.8 mg/dL Normal 1.6-2.6 [facility] Comment on above: Performed By: #### U R #### [facility] (DEFAULT) [address] [place] [address] PHOSPHATE, INORGANICon 02-18 Phosphorous 5.2 mg/dL High 2.2-4.6 [facility] Comment on above: Performed By: #### U R #### [facility] (DEFAULT) [address] [place] [address] PREALBUMINon 02-19-2024 Prealbumin [Mass/Vol] 22 mg/dL Normal 17-34 [facility] Comment on above: Performed By: #### U R #### [facility] (DEFAULT) [address] [place] [address] PT,INR,PTTon 02-19-2024 aPTT Coag (Bld) [Time] 33.6 s Normal 24.0-34.3 [facility] Comment on above: Performed By: #### P TPTT #### [facility] (DEFAULT) [address] [place] [address] INR Coag (PPP) [Relative time] 1.2 {INR} High 0.9-1.1 [facility] Comment on above: Performed By: #### P TPTT #### [facility] (DEFAULT) [address] [place] [address] PT Coag (PPP) [Time] 15.0 s High 11.9-14.2 [facility] Comment on above: Performed By: #### P TPTT #### [facility] (DEFAULT) [address] [place] [address] VITAMIN D (25-HYDROXY,TOTAL) on 02-19-2024 25-OH Vitamin D Total 22.4 ng/mL Low 30.0-100.0 [facility] Comment on above: Order Comment: Vitam in D values have been shown to be falsely decreased in lipemic samples and should be interpreted with caution. Result Comment: <10 Deficiency 10-29 Insufficiency 30-100 Optimal Level >100 Possible Toxicity Performed By: #### L [id number] #### [facility] (DEFAULT) [address] [place] [address] XR SPINE CERVICAL 2-3 VIEWSo n 02-19-2024 [...] Previous postsurgical changes C4-C6 appears stable. Normal [facility] Disch [place] 02-18-2024 Disch Summ [facility] XR CHEST 1 VIEW PORTABLEon 1 XR [...] IMPRESSION: No acute process. Postop changes. Normal [facility] CREATININE, SERUMon 02-17-20 Creatinine [Mass/Vol] 0.55 mg/dL Normal 0.50-1.30 [facility] Comment on above: Order Comment: Daily for first 7 days of vancomycin therapy for monitoring purposes per [facility] has implemented the eGFR calculation approach that does not have a coefficient for race that conforms to the NKF-ASN Task Force Recommendations. Performed By: #### [id number] #### [facility] [address] [address] Les Malone M.D. [id number] EGFR 125 mL/min/1.73 m2 Normal >=60 [facility] Comment on above: Order Comment: Daily for first 7 days of vancomycin therapy for monitoring purposes per [facility] has implemented the eGFR calculation approach that does not have a coefficient for race that conforms to the NKF-ASN Task Force Recommendations. Result Comment: Fanta mated GFR was calculated using the 2020 CKD-EPI creatinine equation. Performed By: #### [id number] #### [facility] [address] [address] Les Malone M.D. [id number] VANCOMYCIN LEVEL, RANDOMon 1 VANCOMYCIN RANDOM 28.2 mcg/mL Normal [facility] Comment on above: Order Comment: As of 02/2022 vancomycin dosing for [facility] inpatients will be done by Bayesian dosing software rather than off traditional trough values. Please contact the site specific inpatient pharmacy before making dose changes off of trough values alone for admitted patients.No established reference range. Performed By: #### 4 [id number] #### [facility] [address] [address] Les Malone M.D. [id number] CREATININE, SERUMon 02-16-20 24 Creatinine [Mass/Vol] 0.59 mg/dL Normal 0.50-1.30 [facility] Comment on above: Order Comment: Daily for first 7 days of vancomycin therapy for monitoring purposes per [facility] has implemented the eGFR calculation approach that does not have a coefficient for race that conforms to the NKF-ASN Task Force Recommendations. Performed By: #### [id number] #### [facility] [address] [address] Les Malone M.D. [id number] EGFR 122 mL/min/1.73 m2 Normal >=60 [facility] Comment on above: Order Comment: Daily for first 7 days of vancomycin therapy for monitoring purposes per [facility] has implemented the eGFR calculation approach that does not have a coefficient for race that conforms to the NKF-ASN Task Force Recommendations. Result Comment: Fanta mated GFR was calculated using the 2020 CKD-EPI creatinine equation. Performed By: #### 4 [id number] #### [facility] [address] [id number] Les Malone M.D. [id number] CREATININE, SERUMon 02-15-20 24 Creatinine [Mass/Vol] 0.59 mg/dL Normal 0.50-1.30 [facility] Comment on above: Order Comment: Daily for first 7 days of vancomycin therapy for monitoring purposes per [facility] has implemented the eGFR calculation approach that does not have a coefficient for race that conforms to the NKF-ASN Task Force Recommendations. Performed By: #### 4 [id number] #### [facility] [address] [address] Les Malone M.D. [id number] EGFR 122 mL/min/1.73 m2 Normal >=60 [facility] Comment on above: Order Comment: Daily for first 7 days of vancomycin therapy for monitoring purposes per [facility] has implemented the eGFR calculation approach that does not have a coefficient for race that conforms to the NKF-ASN Task Force Recommendations. Result Comment: Fanta mated GFR was calculated using the 2020 CKD-EPI creatinine equation. Performed By: #### 4 [id number] #### [facility] [address] [place], [place] [address] Les Malone M.D. [id number] CREATININE, SERUMon 02-14-20 24 Creatinine [Mass/Vol] 0.50 mg/dL Normal 0.50-1.30 [facility] Comment on above: Order Comment: Daily for first 7 days of vancomycin therapy for monitoring purposes per [facility] has implemented the eGFR calculation approach that does not have a coefficient for race that conforms to the NKF-ASN Task Force Recommendations. Performed By: #### 4 [id number] #### [facility] [address] [place], [place] [address] Les Malone M.D. [id number] EGFR 128 mL/min/1.73 m2 Normal >=60 [facility] Comment on above: Order Comment: Daily for first 7 days of vancomycin therapy for monitoring purposes per [facility] has implemented the eGFR calculation approach that does not have a coefficient for race that conforms to the NKF-ASN Task Force Recommendations. Result Comment: Fanta mated GFR was calculated using the 2020 CKD-EPI creatinine equation. Performed By: #### 4 [id number] #### [facility] [address] [place], [place] [address] Les Malone M.D. [id number] VANCOMYCIN LEVEL, RANDOMon 1 VANCOMYCIN RANDOM 22.0 mcg/mL Normal [facility] Comment on above: Order Comment: As of 02/2022 vancomycin dosing for [facility] inpatients will be done by Bayesian dosing software rather than off traditional trough values. Please contact the site specific inpatient pharmacy before making dose changes off of trough values alone for admitted patients.No established reference range. Performed By: #### 4 [id number] #### [facility] [address] [place], [place] [address] Les Malone M.D. [id number] CREATININE, SERUMon 02-13-20 24 Creatinine [Mass/Vol] 0.57 mg/dL Normal 0.50-1.30 [facility] Comment on above: Order Comment: Daily for first 7 days of vancomycin therapy for monitoring purposes per [facility] has implemented the eGFR calculation approach that does not have a coefficient for race that conforms to the NKF-ASN Task Force Recommendations. Performed By: #### 4 [id number] #### [facility] [address] [place], [place] [address] Les Malone M.D. [id number] EGFR 123 mL/min/1.73 m2 Normal >=60 [facility] Comment on above: Order Comment: Daily for first 7 days of vancomycin therapy for monitoring purposes per [facility] has implemented the eGFR calculation approach that does not have a coefficient for race that conforms to the NKF-ASN Task Force Recommendations. Result Comment: Fanta mated GFR was calculated using the 2020 CKD-EPI creatinine equation. Performed By: #### 4 [id number] #### LAB [address] [place], [place] [address] Les Malone M.D. [id number] CSF AEROBIC AND ANAEROBIC CU LTURE (SHUNT OR DRAIN ONLY)on 02-13-2024 CSF AEROBIC AND ANAEROBIC CULTURE (SHUNT OR DRAIN ONLY) CULTURE No Growth after 5 days GRAM STAIN RESULT WBC WBCs present Many RBC No Organisms Seen Normal [facility] Comment on above: Performed By: #### 4 [id number] ####[facility] [address] [place] [address] Yonny Toro M[address] [id number] CT HEAD OR BRAIN WITHOUT CON TRASTon 02-13-2024 CT HEAD OR BRAIN WITHOUT CONTRAST Normal [facility] Comment on above: Order Comment: Injur y/Trauma or Illness?:Illness/OtherHow long have you had these symptoms (acute/chronic)?:AcuteReason for exam?:eval hydrocephalus for possible drain removalType of Exam?:Subsequent/Follow-upAdditional signs and symptoms?:. DEBT MANAGEMENT COUNSELOR AEROBIC AND A NAEROBIC CULTUREon 02-13-2024 DEBT MANAGEMENT COUNSELOR AEROBIC AND ANAEROBIC CULTURE Abnormal [facility] Comment on above: Order Comment: Exter nal Ventricular Drain (EVD) Tip. Performed By: #### L [id number] ####[facility] [address] [place] [address] Yonny Toro M.D. [id number] CREATININE, SERUMon 02-12-20 Creatinine [Mass/Vol] 0.58 mg/dL Normal 0.50-1.30 [facility] Comment on above: Order Comment: Daily for first 7 days of vancomycin therapy for monitoring purposes per [facility] has implemented the eGFR calculation approach that does not have a coefficient for race that conforms to the NKF-ASN Task Force Recommendations. Performed By: #### 4 [id number] #### LAB [address] [place] [address] Les Malone M.D. [id number] EGFR 123 mL/min/1.73 m2 Normal >=60 [facility] Comment on above: Order Comment: Daily for first 7 days of vancomycin therapy for monitoring purposes per [facility] has implemented the eGFR calculation approach that does not have a coefficient for race that conforms to the NKF-ASN Task Force Recommendations. Result Comment: Fanta mated GFR was calculated using the 2020 CKD-EPI creatinine equation. Performed By: #### 4 [id number] #### LAB [address] [place] [address] Les Malone M.D. [id number] VANCOMYCIN LEVEL, RANDOMon 1 VANCOMYCIN RANDOM 38.2 mcg/mL Normal [facility] Comment on above: Order Comment: Draw prior to hanging vancomycin dose.As of 02/2022 vancomycin dosing for [facility] inpatients will be done by Bayesian dosing software rather than off traditional trough values. Please contact the site specific inpatient pharmacy before making dose changes off of trough values alone for admitted patients.No established reference range. Performed By: #### 4 6651 #### LAB [address] [place], [place] [address] Les Malone M.D. [id number] CBCon 02-11-2024 AUTO NRBC 0.0 % [facility] Comment on above: Performed By: #### 4 [id number] #### LAB [address] [place] [address] Les Malone M.D. [id number] AUTO NRBC ABS COUNT 0.00 K/mcL Normal 0.00-0.00 [facility] Comment on above: Performed By: #### 4 [id number] #### LAB [address] [place] [address] Les Malone M.D. [id number] Erythrocyte distribution width (RBC) [Ratio] 16.6 % High 11.6-14.[address] [facility] Comment on above: Performed By: #### 4 [id number] #### LAB [address] [place] [address] Les Malone M.D. [id number] Hematocrit (Bld) [Volume fraction] 26.1 % Low 41.0-53.[address] [facility] Comment on above: Performed By: #### 4 [id number] #### LAB [address] [place] [address] Les Malone M.D. [id number] Hemoglobin (Bld) [Mass/Vol] 8.1 g/dL Low 13.5-17.[address] [facility] Comment on above: Performed By: #### 4 [id number] #### LAB [address] [place] [address] Les Malone M.D. [id number] MCH (RBC) [Entitic mass] 29.1 pg Normal 26.0-34.[address] [facility] Comment on above: Performed By: #### 4 [id number] #### LAB [address] [place] [address] Les Malone M.D. [id number] MCV (RBC) [Entitic vol] 93.9 fL Normal 80.0-100.[address] [facility] Comment on above: Performed By: #### 4 [id number] #### LAB [address] [place] [address] Les Malone M.D. [id number] MEAN CORPUSCULAR HEMOGLOBIN CONC 31.0 g/dL Normal 31.0-37.[address] [facility] Comment on above: Performed By: #### 4 [id number] #### LAB [address] [place] [address] Les Malone M.D. [id number] Platelet mean volume (Bld) [Entitic vol] 9.8 fL Normal 9.4-12.[address] [facility] Comment on above: Performed By: #### 4 [id number] #### LAB [address] [place] [address] Les Malone M.D. [id number] Platelets (Bld) [#/Vol] 287 10*3/uL Normal 150-[address] [facility] Comment on above: Performed By: #### 4 [id number] ####[facility] [address] [place] [address] Les Malone M.D. [id number] RBC (Bld) [#/Vol] 2.78 10*6/uL Low 4.50-5.90 [facility] Comment on above: Performed By: #### 4 [id number] #### LAB [address] [place] [id number] Les Malone M.D. [id number] WBC (Bld) [#/Vol] 11.07 10*3/uL High 4.50-11.00 [facility] Comment on above: Performed By: #### 4 [id number] #### LAB [address] [place] [address] Les Malone M.D. [id number] CREATININE, SERUMon 02-11-20 24 Creatinine [Mass/Vol] 0.77 mg/dL Normal 0.50-1.30 [facility] Comment on above: Order Comment: Daily for first 7 days of vancomycin therapy for monitoring purposes per [facility] has implemented the eGFR calculation approach that does not have a coefficient for race that conforms to the NKF-ASN Task Force Recommendations. Performed By: #### 4 5336 #### LAB [address] [place] [address] Les Malone M.D. [id number] EGFR 113 mL/min/1.73 m2 Normal >=60 [facility] Comment on above: Order Comment: Daily for first 7 days of vancomycin therapy for monitoring purposes per [facility] has implemented the eGFR calculation approach that does not have a coefficient for race that conforms to the NKF-ASN Task Force Recommendations. Result Comment: Fanta mated GFR was calculated using the 2020 CKD-EPI creatinine equation. Performed By: #### 4 5336 #### LAB [address] [place], [place] [address] Les Malone M.D. [id number] BASIC METABOLIC PANELon 10-0 -2023 Anion gap [Moles/Vol] 14 mmol/L Normal 10-20 [facility] Comment on above: Order Comment: [facility] has implemented the eGFR calculation approach that does not have a coefficient for race that conforms to the NKF-ASN Task Force Recommendations. Performed By: #### 4 6124 #### LAB [address] [place] [address] Les Malone M.D. [id number] Calcium [Mass/Vol] 8.5 mg/dL Normal 8.4-10.2 [facility] Comment on above: Order Comment: [facility] has implemented the eGFR calculation approach that does not have a coefficient for race that conforms to the NKF-ASN Task Force Recommendations. Performed By: #### 4 6124 #### LAB [address] [place] [address] Les Malone M.D. [id number] Chloride [Moles/Vol] 101 mmol/L Normal 98-108 [facility] Comment on above: Order Comment: [facility] has implemented the eGFR calculation approach that does not have a coefficient for race that conforms to the NKF-ASN Task Force Recommendations. Performed By: #### 4 6124 #### LAB [address] [place] [address] Les Malone M.D. [id number] Creatinine [Mass/Vol] 0.66 mg/dL Normal 0.50-1.30 [facility] Comment on above: Order Comment: [facility] has implemented the eGFR calculation approach that does not have a coefficient for race that conforms to the NKF-ASN Task Force Recommendations. Performed By: #### 4 6163 #### LAB [address] [place] [address] Les Malone M.D. [id number] EGFR 118 mL/min/1.73 m2 Normal >=60 [facility] Comment on above: Order Comment: [facility] has implemented the eGFR calculation approach that does not have a coefficient for race that conforms to the NKF-ASN Task Force Recommendations. Result Comment: Fanta mated GFR was calculated using the 2020 CKD-EPI creatinine equation. Performed By: #### 4 6124 #### LAB [address] [place] [address] Les Malone M.D. [id number] Glucose [Mass/Vol] 120 mg/dL High 65-99 [facility] Comment on above: Order Comment: [facility] has implemented the eGFR calculation approach that does not have a coefficient for race that conforms to the NKF-ASN Task Force Recommendations. Performed By: #### 4 6124 #### LAB [address] [place] [address] Les Malone M.D. [id number] HCO3 (Bld) [Moles/Vol] 27 mmol/L Normal 21-[address] [facility] Comment on above: Order Comment: [facility] has implemented the eGFR calculation approach that does not have a coefficient for race that conforms to the NKF-ASN Task Force Recommendations. Performed By: #### 4 6124 #### LAB [address] [place] [address] Les Malone M.D. [id number] Potassium [Moles/Vol] 4.4 mmol/L Normal 3.5-5.1 [facility] Comment on above: Order Comment: [facility] has implemented the eGFR calculation approach that does not have a coefficient for race that conforms to the NKF-ASN Task Force Recommendations. Performed By: #### 4 6124 ####[facility] [address] [place] [address] Les Malone M.D. [id number] Sodium [Moles/Vol] 138 mmol/L Normal 135-145 [facility] Comment on above: Order Comment: [facility] has implemented the eGFR calculation approach that does not have a coefficient for race that conforms to the NKF-ASN Task Force Recommendations. Performed By: #### 4 6124 #### LAB [address] [place], [place] [address] Les Malone M.D. [id number] Urea nitrogen [Mass/Vol] 20 mg/dL Normal 8-[address] [facility] Comment on above: Order Comment: [facility] has implemented the eGFR calculation approach that does not have a coefficient for race that conforms to the NKF-ASN Task Force Recommendations. Performed By: #### 4 6124 #### LAB [address] [place], [place] [address] Les Malone M.D. [id number] Urea nitrogen/Creatinine [Mass ratio] 30.3 mg/mg High 10.0-20.[address] [facility] Comment on above: Order Comment: [facility] has implemented the eGFR calculation approach that does not have a coefficient for race that conforms to the NKF-ASN Task Force Recommendations. Performed By: #### 4 6124 #### LAB [address] [place], [place] [address] Les Malone M.D. [id number] BODY FLUID AEROBIC AND ANAER OBIC CULTUREon 02-10-2024 BODY FLUID AEROBIC AND ANAEROBIC CULTURE CULTURE No Growth after 5 days GRAM STAIN RESULT Many RBC Rare WBC No Organisms Seen Normal [facility] Comment on above: Order Comment: BELLE rodgers of head (frontal). Performed By: #### 4 4197 ####[facility] [address] [place] [address] Yonny Toro M.D. [id number] BODY FLUID FUNGUS CULTUREon 02-10-2024 BODY FLUID FUNGUS CULTURE FUNGUS CULTURE No Fungus Isolated At 4 Weeks FUNGAL SMEAR No Fungal or Yeast Elements Normal [facility] Comment on above: Order Comment: BELLE rodgers of head (frontal). Performed By: #### 4 4198 ####[facility] [address] [place] [address] Yonny Toro M.D. [id number] CBCon 02-10-2024 AUTO NRBC 0.0 % Normal [facility] Comment on above: Performed By: #### 4 [id number] #### LAB [address] [place] [address] Les Malone M.D. [id number] AUTO NRBC ABS COUNT 0.00 K/mcL Normal 0.00-0.00 [facility] Comment on above: Performed By: #### 4 [id number] #### LAB [address] [place] [address] Les Malone M.D. [id number] Erythrocyte distribution width (RBC) [Ratio] 16.3 % High 11.6-14.[address] [facility] Comment on above: Performed By: #### 4 [id number] #### LAB [address] [place] [address] Les Malone M.D. [id number] Hematocrit (Bld) [Volume fraction] 27.6 % Low 41.0-53.[address] [facility] Comment on above: Performed By: #### 4 [id number] ####[facility] [address] [place] [address] Les Malone M.D. [id number] Hemoglobin (Bld) [Mass/Vol] 8.6 g/dL Low 13.5-17.[address] [facility] Comment on above: Performed By: #### 4 [id number] #### LAB [address] [place] [address] Les Malone M.D. [id number] MCH (RBC) [Entitic mass] 27.9 pg Normal 26.0-34.[address] [facility] Comment on above: Performed By: #### 4 [id number] #### LAB [address] [place] [address] Les Malone M.D. [id number] MCV (RBC) [Entitic vol] 89.6 fL Normal 80.0-100.[address] [facility] Comment on above: Performed By: #### 4 [id number] #### LAB [address] [place] [address] Les Malone M.D. [id number] MEAN CORPUSCULAR HEMOGLOBIN CONC 31.2 g/dL Normal 31.0-37.[address] [facility] Comment on above: Performed By: #### 4 [id number] #### LAB [address] [place] [address] Les Malone M.D. [id number] Platelet mean volume (Bld) [Entitic vol] 9.7 fL Normal 9.4-12.[address] [facility] Comment on above: Performed By: #### 4 [id number] ####[facility] [address] [place] [address] Les Malone M.D. [id number] Platelets (Bld) [#/Vol] 297 10*3/uL Normal 150-[address] [facility] Comment on above: Performed By: #### 4 [id number] #### LAB [address] [place] [address] Les Malone M.D. [id number] RBC (Bld) [#/Vol] 3.08 10*6/uL Low 4.50-5.90 [facility] Comment on above: Performed By: #### 4 [id number] #### LAB [address] [place] [address] Les Malone M.D. [id number] WBC (Bld) [#/Vol] 10.77 10*3/uL Normal 4.50-11.00 [facility] Comment on above: Performed By: #### 4 [id number] #### LAB [address] [place] [address] Les Malone M.D. [id number] CONSULTon 02-10-2024 CONSULT Normal [facility] CRP, INFLAMMATIONon 02-10-20 24 CRP [Mass/Vol] 4.9 mg/L Normal 0.0-10.[address] [facility] Comment on above: Performed By: #### 4 5334 #### LAB [address] [place] [address] Les Malone M.D. [id number] CSF AEROBIC AND ANAEROBIC CU LTURE (SHUNT OR DRAIN ONLY)on 02-10-2024 CSF AEROBIC AND ANAEROBIC CULTURE (SHUNT OR DRAIN ONLY) CULTURE No Growth after 5 days GRAM STAIN RESULT Few WBC Many RBC No Organisms Seen Normal [facility] Comment on above: Order Comment: EVD Performed By: #### 4 [id number] ####[facility] [address] [place] [address] Yonny Toro M.D. [id number] CSF FUNGUS CULTUREon 024 CSF FUNGUS CULTURE FUNGUS CULTURE No Fungus Isolated At 4 Weeks FUNGAL SMEAR No Fungal or Yeast Elements Normal [facility] Comment on above: Order Comment: EVD Performed By: #### 4 4216 ####[facility] [address] [place] [address] [address]ny Toro M[address] [id number] CT HEAD OR BRAIN WITHOUT CON TRASTon 02-10-2024 CT HEAD OR BRAIN WITHOUT CONTRAST Normal [facility] Comment on above: Order Comment: Injur y/Trauma or Illness?:Illness/OtherHow long have you had these symptoms (acute/chronic)?:AcuteReason for exam?:post-opType of Exam?:Subsequent/Follow-upAdditional signs and symptoms?:n SEDIMENTATION RATEon 024 SEDIMENTATION RATE, ERYTHROCYTE 10 mm/hr Normal 0-[address] [facility] Comment on above: Performed By: #### 4 6477 #### LAB [address] [place] [address] Les Malone M.D. [id number] CBCon 02-09-2024 AUTO NRBC 0.0 % Normal [facility] Comment on above: Performed By: #### 4 [id number] #### LAB [address] [place] [address] Les Malone M.D. [id number] AUTO NRBC ABS COUNT 0.00 K/mcL Normal 0.00-0.00 [facility] Comment on above: Performed By: #### 4 [id number] #### LAB [address] [place] [address] Les Malone M.D. [id number] Erythrocyte distribution width (RBC) [Ratio] 16.4 % High 11.6-14.[address] [facility] Comment on above: Performed By: #### 4 [id number] #### LAB [address] [place] [address] Les Malone M.D. [id number] Hematocrit (Bld) [Volume fraction] 28.7 % Low 41.0-53.[address] [facility] Comment on above: Performed By: #### 4 [id number] #### LAB [address] [place] [address] Les Malone M.D. [id number] Hemoglobin (Bld) [Mass/Vol] 8.9 g/dL Low 13.5-17.[address] [facility] Comment on above: Performed By: #### 4 [id number] #### LAB [address] [place] [address] Les Malone M.D. [id number] MCH (RBC) [Entitic mass] 27.9 pg Normal 26.0-34.[address] [facility] Comment on above: Performed By: #### 4 [id number] #### LAB [address] [place] [address] Les Malone M.D. [id number] MCV (RBC) [Entitic vol] 90.0 fL Normal 80.0-100.[address] [facility] Comment on above: Performed By: #### 4 [id number] #### LAB [address] [place] [address] Les Malone M.D. [id number] MEAN CORPUSCULAR HEMOGLOBIN CONC 31.0 g/dL Normal 31.0-37.[address] [facility] Comment on above: Performed By: #### 4 [id number] #### LAB [address] [place] [address] Les Malone M.D. [id number] Platelet mean volume (Bld) [Entitic vol] 9.8 fL Normal 9.4-12.[address] [facility] Comment on above: Performed By: #### 4 [id number] #### LAB [address] [place] [address] Les Malone M.D. [id number] Platelets (Bld) [#/Vol] 276 10*3/uL Normal 150-[address] [facility] Comment on above: Performed By: #### 4 [id number] #### LAB [address] [place] [address] Les Malone M.D. [id number] RBC (Bld) [#/Vol] 3.19 10*6/uL Low 4.50-5.90 [facility] Comment on above: Performed By: #### 4 [id number] #### LAB [address] [place] [address] Les Malone M.D. [id number] WBC (Bld) [#/Vol] 8.18 10*3/uL Normal 4.50-11.00 [facility] Comment on above: Performed By: #### 4 [id number] #### LAB [address] [place] [address] Les Malone M.D. [id number] COMPREHENSIVE METABOLIC PANE [facility] 02-09-2024 Albumin [Mass/Vol] 3.1 g/dL Low 3.2-5.2 [facility] Comment on above: Order Comment: [facility] has implemented the eGFR calculation approach that does not have a coefficient for race that conforms to the NKF-ASN Task Force Recommendations. Performed By: #### 4 6126 #### LAB [address] [place] [address] Les Malone M.D. [id number] ALP [Catalytic activity/Vol] 91 U/L Normal 40-[address] [facility] Comment on above: Order Comment: [facility] has implemented the eGFR calculation approach that does not have a coefficient for race that conforms to the NKF-ASN Task Force Recommendations. Performed By: #### 4 6126 #### LAB [address] [place] [address] Les Malone M.D. [id number] ALT [Catalytic activity/Vol] 13 U/L Normal 0-50 U/L [facility] Comment on above: Order Comment: [facility] has implemented the eGFR calculation approach that does not have a coefficient for race that conforms to the NKF-ASN Task Force Recommendations. Performed By: #### 4 6126 #### LAB [address] [place] [address] Les Malone M.D. [id number] Anion gap [Moles/Vol] 13 mmol/L Normal 10-20 [facility] Comment on above: Order Comment: [facility] has implemented the eGFR calculation approach that does not have a coefficient for race that conforms to the NKF-ASN Task Force Recommendations. Performed By: #### 4 6126 #### LAB [address] [place] [address] Les Malone M.D. [id number] AST [Catalytic activity/Vol] 19 U/L Normal 0-50 U/L [facility] Comment on above: Order Comment: [facility] has implemented the eGFR calculation approach that does not have a coefficient for race that conforms to the NKF-ASN Task Force Recommendations. Performed By: #### 4 6126 #### LAB [address] [place] [address] Les Malone M.D. [id number] Bilirubin [Mass/Vol] 0.3 mg/dL Normal 0.0-1.3 [facility] Comment on above: Order Comment: [facility] has implemented the eGFR calculation approach that does not have a coefficient for race that conforms to the NKF-ASN Task Force Recommendations. Performed By: #### 4 6126 #### LAB [address] [place] [address] Les Malone M.D. [id number] Calcium [Mass/Vol] 8.8 mg/dL Normal 8.4-10.2 [facility] Comment on above: Order Comment: [facility] has implemented the eGFR calculation approach that does not have a coefficient for race that conforms to the NKF-ASN Task Force Recommendations. Performed By: #### 4 6126 #### LAB [address] [place] [address] Les Malone M.D. [id number] Chloride [Moles/Vol] 102 mmol/L Normal 98-108 [facility] Comment on above: Order Comment: [facility] has implemented the eGFR calculation approach that does not have a coefficient for race that conforms to the NKF-ASN Task Force Recommendations. Performed By: #### 4 6126 #### LAB [address] [place], [place] [address] Les Malone M.D. [id number] Creatinine [Mass/Vol] 0.60 mg/dL Normal 0.50-1.30 [facility] Comment on above: Order Comment: [facility] has implemented the eGFR calculation approach that does not have a coefficient for race that conforms to the NKF-ASN Task Force Recommendations. Performed By: #### 4 6126 #### LAB [address] [place], [place] [address] Les Malone M.D. [id number] EGFR 121 mL/min/1.73 m2 Normal >=60 [facility] Comment on above: Order Comment: [facility] has implemented the eGFR calculation approach that does not have a coefficient for race that conforms to the NKF-ASN Task Force Recommendations. Result Comment: Fanta mated GFR was calculated using the 2020 CKD-EPI creatinine equation. Performed By: #### 4 6126 #### LAB [address] [place], [place] [address] Les Malone M.D. [id number] Glucose [Mass/Vol] 96 mg/dL Normal 65-99 [facility] Comment on above: Order Comment: [facility] has implemented the eGFR calculation approach that does not have a coefficient for race that conforms to the NKF-ASN Task Force Recommendations. Performed By: #### 4 6126 #### LAB [address] [place] [id number] Les Malone M.D. [id number] HCO3 (Bld) [Moles/Vol] 27 mmol/L Normal 21-[address] [facility] Comment on above: Order Comment: [facility] has implemented the eGFR calculation approach that does not have a coefficient for race that conforms to the NKF-ASN Task Force Recommendations. Performed By: #### 4 6126 #### LAB [address] [place] [id number] Les Malone M.D. [id number] Potassium [Moles/Vol] 3.9 mmol/L Normal 3.5-5.1 [facility] Comment on above: Order Comment: [facility] has implemented the eGFR calculation approach that does not have a coefficient for race that conforms to the NKF-ASN Task Force Recommendations. Performed By: #### 4 6126 #### LAB [address] [place] [address] Les Malone M.D. [id number] Protein [Mass/Vol] 5.4 g/dL Low 6.0-8.0 [facility] Comment on above: Order Comment: [facility] has implemented the eGFR calculation approach that does not have a coefficient for race that conforms to the NKF-ASN Task Force Recommendations. Performed By: #### 4 6126 #### LAB [address] [place] [address] Les Malone M.D. [id number] Sodium [Moles/Vol] 138 mmol/L Normal 135-145 [facility] Comment on above: Order Comment: [facility] has implemented the eGFR calculation approach that does not have a coefficient for race that conforms to the NKF-ASN Task Force Recommendations. Performed By: #### 4 6126 #### LAB [address] [address] Les Malone M.D. [id number] Urea nitrogen [Mass/Vol] 16 mg/dL Normal 8-[address] [facility] Comment on above: Order Comment: [facility] has implemented the eGFR calculation approach that does not have a coefficient for race that conforms to the NKF-ASN Task Force Recommendations. Performed By: #### 4 6126 ####[facility] [address] [address] Les Malone M.D. [id number] Urea nitrogen/Creatinine [Mass ratio] 26.7 mg/mg High 10.0-20.[address] [facility] Comment on above: Order Comment: [facility] has implemented the eGFR calculation approach that does not have a coefficient for race that conforms to the NKF-ASN Task Force Recommendations. Performed By: #### 4 6126 #### LAB [address] [address] Les Malone M.D. [id number] HEMOGLOBIN AND HEMATOCRITon 02-09-2024 Hematocrit (Bld) [Volume fraction] 28.8 % Low 41.0-53.[address] [facility] Comment on above: Performed By: #### 4 6909 ####[facility] [address] [address] Les Malone M.D. [id number] Hemoglobin (Bld) [Mass/Vol] 8.9 g/dL Low 13.5-17.[address] [facility] Comment on above: Performed By: #### 4 6909 #### LAB [address] [address] Les Malone M.D. [id number] MAGNESIUM LEVELon 02-09-2024 Magnesium [Mass/Vol] 1.8 mg/dL Normal 1.6-2.4 [facility] Comment on above: Performed By: #### 4 6109 ####[facility] [address] [address] Les Malone M.D. [id number] OP NOTEon 02-09-2024 OP NOTE Normal [facility] PHOSPHORUSon 02-09-2024 Phosphate [Mass/Vol] 4.4 mg/dL Normal 2.7-4.5 [facility] Comment on above: Performed By: #### 4 6299 ####[facility] [address] [address] Les Malone M.D. [id number] POC ABG SURG - RALSon 2023 BASE EXCESS, ARTERIAL ISTAT 4 High -2-[address] [facility] Comment on above: Performed By: #### 4 8737 ####[facility] [address] [address] Les Malone M.D. [id number] Glucose [Mass/Vol] 123 mg/dL High 65-99 [facility] Comment on above: Performed By: #### 4 8737 ####[facility] [address] [address] Les Malone M.D. [id number] HCO3 (Bld) [Moles/Vol] 28.8 mmol/L High 22.0-26.[address] [facility] Comment on above: Performed By: #### 4 8737 ####[facility] [address] [address] Les Malone M.D. [id number] Hematocrit (Bld) [Volume fraction] 31 % Low 41-[address] [facility] Comment on above: Performed By: #### 4 8737 ####[facility] [address] [address] Les Malone M.D. [id number] Hemoglobin (Bld) [Mass/Vol] 10.5 g/dL Low 13.5-17.[address] [facility] Comment on above: Performed By: #### 4 8737 ####[facility] [address] [address] Les Malone M.D. [id number] Oxygen saturation in Blood 100.0 % High 92.0-99.[address] [facility] Comment on above: Performed By: #### 4 8737 ####[facility] [address] [address] Les Malone M.D. [id number] PCO2 ARTERIAL 43.9 mm Hg Normal 35.0-45.[address] [facility] Comment on above: Performed By: #### 4 8737 ####[facility] [address] [address] Les Malone M.D. [id number] PH ARTERIAL 7.43 Normal 7.35-7.[address] [facility] Comment on above: Performed By: #### 4 8737 ####[facility] [address] [address] Les Malone M.D. [id number] PO2 ARTERIAL 220 mm Hg High 80-[address] [facility] Comment on above: Performed By: #### 4 8737 ####[facility] [address] [address] Les Malone M.D. [id number] POC IONIZED CALCIUM 4.7 mg/dL Normal 4.5-5.3 [facility] Comment on above: Performed By: #### 4 8737 ####[facility] [address] [address] Les Malone M.D. [id number] Potassium [Moles/Vol] 4.4 mmol/L Normal 3.5-5.1 [facility] Comment on above: Performed By: #### 4 8737 ####[facility] [address] [address] Les Malone M.D. [id number] Sodium [Moles/Vol] 138 mmol/L Normal 135-145 [facility] Comment on above: Performed By: #### 4 8737 ####[facility] [address] [address] Les Malone M.D. [id number] BASE EXCESS, ARTERIAL ISTAT 4 High -2-[address] [facility] Comment on above: Performed By: #### 4 8737 ####[facility] [address] [address] Les Malone M.D. [id number] Glucose [Mass/Vol] 108 mg/dL High 65-99 [facility] Comment on above: Performed By: #### 4 8737 ####[facility] [address] [address] Les Malone M.D. [id number] HCO3 (Bld) [Moles/Vol] 28.0 mmol/L High 22.0-26.[address] [facility] Comment on above: Performed By: #### 4 8737 ####[facility] [address] [address] Les Malone M.D. [id number] Hematocrit (Bld) [Volume fraction] 30 % Low 41-[address] [facility] Comment on above: Performed By: #### 4 8737 #### LAB [address] [address] Les Malone M.D. [id number] Hemoglobin (Bld) [Mass/Vol] 10.2 g/dL Low 13.5-17.[address] [facility] Comment on above: Performed By: #### 4 8737 ####[facility] [address] [address] Les Malone M.D. [id number] Oxygen saturation in Blood 100.0 % High 92.0-99.[address] [facility] Comment on above: Performed By: #### 4 8737 #### LAB [address] [address] Les Malone M.D. [id number] PCO2 ARTERIAL 37.4 mm Hg Normal 35.0-45.[address] [facility] Comment on above: Performed By: #### 4 8737 #### LAB [address] [address] Les Malone M.D. [id number] PH ARTERIAL 7.48 High 7.35-7.[address] [facility] Comment on above: Performed By: #### 4 8737 ####[facility] [address] [address] Les Malone M.D. [id number] PO2 ARTERIAL 180 mm Hg High 80-[address] [facility] Comment on above: Performed By: #### 4 8737 #### LAB [address] [address] Les Malone M.D. [id number] POC IONIZED CALCIUM 4.7 mg/dL Normal 4.5-5.3 [facility] Comment on above: Performed By: #### 4 8737 ####[facility] [address] [address] Les Malone M.D. [id number] Potassium [Moles/Vol] 4.1 mmol/L Normal 3.5-5.1 [facility] Comment on above: Performed By: #### 4 8737 ####[facility] [address] [address] Les Malone M.D. [id number] Sodium [Moles/Vol] 138 mmol/L Normal 135-145 [facility] Comment on above: Performed By: #### 4 8737 #### LAB [address] [address] Les Malone M.D. [id number] SURGICAL SITE AEROBIC AND AN AEROBIC CULTUREon 02-09-2024 SURGICAL SITE AEROBIC AND ANAEROBIC CULTURE Abnormal [facility] Comment on above: Performed By: #### L [id number] ####[facility] [address] [place] [address] Yonny Toro M.D. [id number] TYPE AND SCREENon 02-09-2024 TYPE AND SCREEN ABORH: O Positive AB SCREEN: Negative EXPIRATION DATE: 02/12/2024 23:59 EST Normal [facility] MAGNESIUM LEVELon 02-08-2024 Magnesium [Mass/Vol] 4.0 mg/dL High 1.6-2.4 [facility] Comment on above: Performed By: #### 4 6109 #### LAB [address] [address] Les Malone M.D. [id number] POC GLUCOSE - [facility] 024 Glucose [Mass/Vol] 109 mg/dL High 65-99 [facility] Comment on above: Performed By: #### 4 6932 #### LAB [address] [address] Les Malone M.D. [id number] CBC WITH AUTO DIFFERENTIALon 02-07-2024 AUTO NRBC 0.0 % [facility] Comment on above: Performed By: #### L [id number] ####[facility] [address] [address] Les Malone M.D. [id number] AUTO NRBC ABS COUNT 0.00 K/mcL Normal 0.00-0.00 [facility] Comment on above: Performed By: #### L [id number] ####[facility] [address] [address] Les Malone M.D. [id number] BASOPHILS ABSOLUTE COUNT 0.04 K/mcL Normal 0.00-0.[address] [facility] Comment on above: Performed By: #### L [id number] #### LAB [address] [address] Les Malone M.D. [id number] Basophils/100 WBC (Bld) 0.5 % Normal [facility] Comment on above: Performed By: #### L [id number] #### LAB [address] [address] Les Malone M.D. [id number] Eosinophils (Bld) [#/Vol] 0.47 10*3/uL Normal 0.00-0.[address] [facility] Comment on above: Performed By: #### L [id number] #### LAB [address] [place] [address] Les Malone M.D. [id number] Eosinophils/100 WBC (Bld) 6.0 % Normal [facility] Comment on above: Performed By: #### L [id number] #### LAB [address] [place] [address] Les Malone M.D. [id number] Erythrocyte distribution width (RBC) [Ratio] 16.8 % High 11.6-14.[address] [facility] Comment on above: Performed By: #### L [id number] #### LAB [address] [place] [address] Les Malone M.D. [id number] Hematocrit (Bld) [Volume fraction] 27.4 % Low 41.0-53.[address] [facility] Comment on above: Performed By: #### L [id number] #### LAB [address] [place] [address] Les Malone M.D. [id number] Hemoglobin (Bld) [Mass/Vol] 8.5 g/dL Low 13.5-17.[address] [facility] Comment on above: Performed By: #### L [id number] #### LAB [address] [address] Les Malone M.D. [id number] IG ABSOLUTE 0.09 K/mcL Normal 0.00-0.[address] [facility] Comment on above: Performed By: #### L [id number] #### LAB [address] [place] [address] Les Malone M.D. [id number] IG PERCENT 1.10 % Normal [facility] Comment on above: Result Comment: The IG parameter is the percentage of metamyelocytes, myelocytes and promyelocytes. An immature granulocyte count (IG) of 1% or more suggests the possibility of infection, an IG count of 3% is very likely related to an infection. Performed By: #### L [id number] #### LAB [address] [place] [address] Les Malone M.D. [id number] Lymphocytes (Bld) [#/Vol] 2.12 10*3/uL Normal 0.90-4.[address] [facility] Comment on above: Performed By: #### L [id number] #### LAB [address] [place] [address] Les Malone M.D. [id number] Lymphocytes/100 WBC (Bld) 26.9 % Normal [facility] Comment on above: Performed By: #### L [id number] #### LAB [address] [place] [address] Les Malone M.D. [id number] MCH (RBC) [Entitic mass] 28.0 pg Normal 26.0-34.[address] [facility] Comment on above: Performed By: #### L [id number] #### LAB [address] [place] [address] Les Malone M.D. [id number] MCV (RBC) [Entitic vol] 90.1 fL Normal 80.0-100.[address] [facility] Comment on above: Performed By: #### L [id number] #### LAB [address] [place] [address] Les Malone M.D. [id number] MEAN CORPUSCULAR HEMOGLOBIN CONC 31.0 g/dL Normal 31.0-37.[address] [facility] Comment on above: Performed By: #### L [id number] #### LAB [address] [address] Les Malone M.D. [id number] Monocytes (Bld) [#/Vol] 0.54 10*3/uL Normal 0.30-0.[address] [facility] Comment on above: Performed By: #### L [id number] #### LAB [address] [address] Les Malone M.D. [id number] Monocytes/100 WBC (Bld) 6.9 % Normal [facility] Comment on above: Performed By: #### L [id number] #### LAB [address] [address] Les Malone M.D. [id number] NEUTROPHILS ABSOLUTE COUNT 4.62 K/mcL Normal 1.70-7.[address] [facility] Comment on above: Performed By: #### L [id number] #### LAB [address] [address] Les Malone M.D. [id number] Neutrophils/100 WBC (Bld) 58.6 % Normal [facility] Comment on above: Performed By: #### L [id number] #### LAB [address] [address] Les Malone M.D. [id number] Platelet mean volume (Bld) [Entitic vol] 10.0 fL Normal 9.4-12.[address] [facility] Comment on above: Performed By: #### L [id number] #### LAB [address] [address] Les Malone M.D. [id number] Platelets (Bld) [#/Vol] 264 10*3/uL Normal 150-[address] [facility] Comment on above: Performed By: #### L [id number] #### LAB [address] [address] Les Malone M.D. [id number] RBC (Bld) [#/Vol] 3.04 10*6/uL Low 4.50-5.90 [facility] Comment on above: Performed By: #### L [id number] ####[facility] [address] [address] Les Malone M.D. [id number] WBC (Bld) [#/Vol] 7.88 10*3/uL Normal 4.50-11.00 [facility] Comment on above: Performed By: #### L [id number] ####[facility] [address] [address] Les Malone M.D. [id number] CHEM 702-07-2024 Anion gap [Moles/Vol] 12 mmol/L Normal 10-20 [facility] Comment on above: Order Comment: [facility] has implemented the eGFR calculation approach that does not have a coefficient for race that conforms to the NKF-ASN Task Force Recommendations. Performed By: #### 4 6953 ####[facility] [address] [address] Les Malone M.D. [id number] Chloride [Moles/Vol] 104 mmol/L Normal 98-108 [facility] Comment on above: Order Comment: [facility] has implemented the eGFR calculation approach that does not have a coefficient for race that conforms to the NKF-ASN Task Force Recommendations. Performed By: #### 4 6953 ####[facility] [address] [address] Les Malone M.D. [id number] Creatinine [Mass/Vol] 0.56 mg/dL Normal 0.50-1.30 [facility] Comment on above: Order Comment: [facility] has implemented the eGFR calculation approach that does not have a coefficient for race that conforms to the NKF-ASN Task Force Recommendations. Performed By: #### 4 6953 ####[facility] [address] [address] Les Malone M.D. [id number] EGFR 124 mL/min/1.73 m2 Normal >=60 [facility] Comment on above: Order Comment: [facility] has implemented the eGFR calculation approach that does not have a coefficient for race that conforms to the NKF-ASN Task Force Recommendations. Result Comment: Fanta mated GFR was calculated using the 2020 CKD-EPI creatinine equation. Performed By: #### 4 6953 #### LAB [address] [address] Les Malone M.D. [id number] Glucose [Mass/Vol] 103 mg/dL High 65-99 [facility] Comment on above: Order Comment: [facility] has implemented the eGFR calculation approach that does not have a coefficient for race that conforms to the NKF-ASN Task Force Recommendations. Performed By: #### 4 6953 #### LAB [address] [address] Les Malone M.D. [id number] HCO3 (Bld) [Moles/Vol] 27 mmol/L Normal 21-[address] [facility] Comment on above: Order Comment: [facility] has implemented the eGFR calculation approach that does not have a coefficient for race that conforms to the NKF-ASN Task Force Recommendations. Performed By: #### 4 6953 #### LAB [address] [place], [place] [address] Les Malone M.D. [id number] Potassium [Moles/Vol] 4.2 mmol/L Normal 3.5-5.1 [facility] Comment on above: Order Comment: [facility] has implemented the eGFR calculation approach that does not have a coefficient for race that conforms to the NKF-ASN Task Force Recommendations. Performed By: #### 4 6953 #### LAB [address] [address] Les Malone M.D. [id number] Sodium [Moles/Vol] 139 mmol/L Normal 135-145 [facility] Comment on above: Order Comment: [facility] has implemented the eGFR calculation approach that does not have a coefficient for race that conforms to the NKF-ASN Task Force Recommendations. Performed By: #### 4 6953 #### LAB [address] [place], [place] [address] Les Malone M.D. [id number] Urea nitrogen [Mass/Vol] 15 mg/dL Normal 8-[address] [facility] Comment on above: Order Comment: [facility] has implemented the eGFR calculation approach that does not have a coefficient for race that conforms to the NKF-ASN Task Force Recommendations. Performed By: #### 4 6953 #### LAB [address] [place], [place] [address] Les Malone M.D. [id number] Urea nitrogen/Creatinine [Mass ratio] 26.8 mg/mg High 10.0-20.[address] [facility] Comment on above: Order Comment: [facility] has implemented the eGFR calculation approach that does not have a coefficient for race that conforms to the NKF-ASN Task Force Recommendations. Performed By: #### 4 6953 #### LAB [address] [place], [place] [address] Les Malone M.D. [id number] MAGNESIUM LEVELon 02-07-2024 Magnesium [Mass/Vol] 1.9 mg/dL Normal 1.6-2.4 [facility] Comment on above: Performed By: #### 4 6109 #### LAB [address] [place], [place] [address] Les Malone M.D. [id number] Magnesium [Mass/Vol] 1.9 mg/dL Normal 1.6-2.4 [facility] Comment on above: Performed By: #### 4 6109 #### LAB [address] [place], [place] [address] Les Malone M.D. [id number] BASIC METABOLIC PANELon 10-0 Anion gap [Moles/Vol] 14 mmol/L Normal 10-20 [facility] Comment on above: Order Comment: [facility] has implemented the eGFR calculation approach that does not have a coefficient for race that conforms to the NKF-ASN Task Force Recommendations. Performed By: #### 4 6124 #### LAB [address] [address] Les Malone M.D. [id number] Calcium [Mass/Vol] 8.9 mg/dL Normal 8.4-10.2 [facility] Comment on above: Order Comment: [facility] has implemented the eGFR calculation approach that does not have a coefficient for race that conforms to the NKF-ASN Task Force Recommendations. Performed By: #### 4 6124 #### LAB [address] [address] Les Malone M.D. [id number] Chloride [Moles/Vol] 104 mmol/L Normal 98-108 [facility] Comment on above: Order Comment: [facility] has implemented the eGFR calculation approach that does not have a coefficient for race that conforms to the NKF-ASN Task Force Recommendations. Performed By: #### 4 6124 #### LAB [address] [address] Les Malone M.D. [id number] Creatinine [Mass/Vol] 0.57 mg/dL Normal 0.50-1.30 [facility] Comment on above: Order Comment: [facility] has implemented the eGFR calculation approach that does not have a coefficient for race that conforms to the NKF-ASN Task Force Recommendations. Performed By: #### 4 6124 #### LAB [address] [address] Les Malone M.D. [id number] EGFR 123 mL/min/1.73 m2 Normal >=60 [facility] Comment on above: Order Comment: [facility] has implemented the eGFR calculation approach that does not have a coefficient for race that conforms to the NKF-ASN Task Force Recommendations. Result Comment: Fanta mated GFR was calculated using the 2020 CKD-EPI creatinine equation. Performed By: #### 4 6124 #### LAB [address] [address] Les Malone M.D. [id number] Glucose [Mass/Vol] 94 mg/dL Normal 65-99 [facility] Comment on above: Order Comment: [facility] has implemented the eGFR calculation approach that does not have a coefficient for race that conforms to the NKF-ASN Task Force Recommendations. Performed By: #### 4 6124 #### LAB [address] [address] Les Malone M.D. [id number] HCO3 (Bld) [Moles/Vol] 25 mmol/L Normal 21-[address] [facility] Comment on above: Order Comment: [facility] has implemented the eGFR calculation approach that does not have a coefficient for race that conforms to the NKF-ASN Task Force Recommendations. Performed By: #### 4 6124 #### LAB [address] [address] Les Malnoe M.D. [id number] Potassium [Moles/Vol] 3.7 mmol/L Normal 3.5-5.1 [facility] Comment on above: Order Comment: [facility] has implemented the eGFR calculation approach that does not have a coefficient for race that conforms to the NKF-ASN Task Force Recommendations. Performed By: #### 4 6124 #### LAB [address] [address] Les Malone M.D. [id number] Sodium [Moles/Vol] 139 mmol/L Normal 135-145 [facility] Comment on above: Order Comment: [facility] has implemented the eGFR calculation approach that does not have a coefficient for race that conforms to the NKF-ASN Task Force Recommendations. Performed By: #### 4 6124 #### LAB [address] [address] Les Malone M.D. [id number] Urea nitrogen [Mass/Vol] 19 mg/dL Normal 8-[address] [facility] Comment on above: Order Comment: [facility] has implemented the eGFR calculation approach that does not have a coefficient for race that conforms to the NKF-ASN Task Force Recommendations. Performed By: #### 4 6124 ####[facility] [address] [address] Les Malone M.D. [id number] Urea nitrogen/Creatinine [Mass ratio] 33.3 mg/mg High 10.0-20.[address] [facility] Comment on above: Order Comment: [facility] has implemented the eGFR calculation approach that does not have a coefficient for race that conforms to the NKF-ASN Task Force Recommendations. Performed By: #### 4 6124 #### LAB [address] [address] Les Malone M.D. [id number] CBC WITH AUTO DIFFERENTIALon 02-06-2024 AUTO NRBC 0.0 % [facility] Comment on above: Performed By: #### L [id number] #### LAB [address] [address] Les Malone M.D. [id number] AUTO NRBC ABS COUNT 0.00 K/mcL Normal 0.00-0.00 [facility] Comment on above: Performed By: #### L [id number] #### LAB [address] [address] Les Malone M.D. [id number] BASOPHILS ABSOLUTE COUNT 0.02 K/mcL Normal 0.00-0.[address] [facility] Comment on above: Performed By: #### L [id number] #### LAB [address] [place] [address] Lse Malone M.D. [id number] Basophils/100 WBC (Bld) 0.2 % [facility] Comment on above: Performed By: #### L [id number] #### LAB [address] [address] Les Malone M.D. [id number] Eosinophils (Bld) [#/Vol] 0.60 10*3/uL High 0.00-0.[address] [facility] Comment on above: Performed By: #### L [id number] #### LAB [address] [place] [address] Les Malone M.D. [id number] Eosinophils/100 WBC (Bld) 7.1 % Normal [facility] Comment on above: Performed By: #### L [id number] #### LAB [address] [address] Les Malone M.D. [id number] Erythrocyte distribution width (RBC) [Ratio] 17.1 % High 11.6-14.[address] [facility] Comment on above: Performed By: #### L [id number] #### LAB [address] [address] Les Malone M.D. [id number] Hematocrit (Bld) [Volume fraction] 28.7 % Low 41.0-53.[address] [facility] Comment on above: Performed By: #### L [id number] #### LAB [address] [address] Les Malone M.D. [id number] Hemoglobin (Bld) [Mass/Vol] 8.8 g/dL Low 13.5-17.[address] [facility] Comment on above: Performed By: #### L [id number] #### LAB [address] [address] Les Malone M.D. [id number] IG ABSOLUTE 0.09 K/mcL Normal 0.00-0.[address] [facility] Comment on above: Performed By: #### L [id number] #### LAB [address] [address] Les Malone M.D. [id number] IG PERCENT 1.10 % Normal [facility] Comment on above: Result Comment: The IG parameter is the percentage of metamyelocytes, myelocytes and promyelocytes. An immature granulocyte count (IG) of 1% or more suggests the possibility of infection, an IG count of 3% is very likely related to an infection. Performed By: #### L [id number] #### LAB [address] [place] [address] Les Malone M.D. [id number] Lymphocytes (Bld) [#/Vol] 2.05 10*3/uL Normal 0.90-4.[address] [facility] Comment on above: Performed By: #### L [id number] #### LAB [address] [address] Les Malone M.D. [id number] Lymphocytes/100 WBC (Bld) 24.1 % Normal [facility] Comment on above: Performed By: #### L [id number] ####[facility] [address] [address] Les Malone M.D. [id number] MCH (RBC) [Entitic mass] 27.8 pg Normal 26.0-34.[address] [facility] Comment on above: Performed By: #### L [id number] #### LAB [address] [address] Les Malone M.D. [id number] MCV (RBC) [Entitic vol] 90.5 fL Normal 80.0-100.[address] [facility] Comment on above: Performed By: #### L [id number] #### LAB [address] [address] Les Malone M.D. [id number] MEAN CORPUSCULAR HEMOGLOBIN CONC 30.7 g/dL Low 31.0-37.[address] [facility] Comment on above: Performed By: #### L [id number] #### LAB [address] [address] Les Malone M.D. [id number] Monocytes (Bld) [#/Vol] 0.65 10*3/uL Normal 0.30-0.[address] [facility] Comment on above: Performed By: #### L [id number] ####[facility] LAB [address] [address] Les Malone M.D. [id number] Monocytes/100 WBC (Bld) 7.6 % Normal [facility] Comment on above: Performed By: #### L [id number] #### LAB [address] [place] [address] Les Malone M.D. [id number] NEUTROPHILS ABSOLUTE COUNT 5.09 K/mcL Normal 1.70-7.[address] [facility] Comment on above: Performed By: #### L [id number] #### LAB [address] [address] Les Malone M.D. [id number] Neutrophils/100 WBC (Bld) 59.9 % Normal [facility] Comment on above: Performed By: #### L [id number] ####[facility] LAB [address] [address] Les Malone M.D. [id number] Platelet mean volume (Bld) [Entitic vol] 10.2 fL Normal 9.4-12.[address] [facility] Comment on above: Performed By: #### L [id number] ####[facility] LAB [address] [address] Les Malone M.D. [id number] Platelets (Bld) [#/Vol] 271 10*3/uL Normal 150-[address] [facility] Comment on above: Performed By: #### L [id number] ####[facility] LAB [address] [address] Les Malone M.D. [id number] RBC (Bld) [#/Vol] 3.17 10*6/uL Low 4.50-5.90 [facility] Comment on above: Performed By: #### L [id number] ####[facility] LAB [address] [address] Les Malone M.D. [id number] WBC (Bld) [#/Vol] 8.50 10*3/uL Normal 4.50-11.00 [facility] Comment on above: Performed By: #### L [id number] ####[facility] LAB [address] [address] Les Malone M.D. [id number] CSF AEROBIC AND ANAEROBIC CU LTURE (SHUNT OR DRAIN ONLY)on 02-06-2024 CSF AEROBIC AND ANAEROBIC CULTURE (SHUNT OR DRAIN ONLY) Abnormal [facility] Comment on above: Performed By: #### 4 4215 ####[facility] LAB [address] [address] Les Malone M.D. [id number] [address] [place] [address] Y[address]ny Toro [address] [id number] CT HEAD OR BRAIN WITHOUT CON TRASTon 02-06-2024 CT HEAD OR BRAIN WITHOUT CONTRAST Normal [facility] Comment on above: Order Comment: Injur y/Trauma or Illness?:Illness/OtherHow long have you had these symptoms (acute/chronic)?:AcuteReason for exam?:f/u lt side head swellingType of Exam?:Subsequent/Follow-upAdditional signs and symptoms?:. FUNGUS CULTURE, NOT BLOODon 02-06-2024 FUNGUS CULTURE, NOT BLOOD FUNGUS CULTURE No Fungus Isolated At 4 Weeks FUNGAL SMEAR No Fungal or Yeast Elements Normal [facility] Comment on above: Performed By: #### 4 4030 ####[facility] [address] [place] [address] Yonny Toro M.D. [id number] MAGNESIUM LEVELon 02-06-2024 Magnesium [Mass/Vol] 1.8 mg/dL Normal 1.6-2.4 [facility] Comment on above: Performed By: #### 4 6109 ####[facility] LAB [address] [address] Les Malone M.D. [id number] POTASSIUM LEVELon 02-06-2024 Potassium [Moles/Vol] 4.0 mmol/L Normal 3.5-5.1 [facility] Comment on above: Performed By: #### 4 6351 ####[facility] LAB [address] [place], [place] [address] Les Malone M.D. [id number] WOUND AEROBIC AND ANAEROBIC CULTUREon 02-06-2024 WOUND AEROBIC AND ANAEROBIC CULTURE CULTURE No Anaerobic Growth after 5 days Few Growth Normal Skin Wally GRAM STAIN RESULT Many WBC No Organisms Seen Normal [facility] Comment on above: Performed By: #### 4 4287 ####[facility] [address] [place], [place] [id number] Yonny Toro M.D. [id number] CBCon 02-05-2024 AUTO NRBC 0.0 % Normal [facility] Comment on above: Performed By: #### 4 [id number] #### LAB [address] [address] Les Malone M.D. [id number] AUTO NRBC ABS COUNT 0.00 K/mcL Normal 0.00-0.00 [facility] Comment on above: Performed By: #### 4 [id number] #### LAB [address] [address] Les Malone M.D. [id number] Erythrocyte distribution width (RBC) [Ratio] 17.1 % High 11.6-14.[address] [facility] Comment on above: Performed By: #### 4 [id number] #### LAB [address] [address] Les Malone M.D. [id number] Hematocrit (Bld) [Volume fraction] 26.8 % Low 41.0-53.[address] [facility] Comment on above: Performed By: #### 4 [id number] #### LAB [address] [address] Les Malone M.D. [id number] Hemoglobin (Bld) [Mass/Vol] 8.2 g/dL Low 13.5-17.[address] [facility] Comment on above: Performed By: #### 4 [id number] #### LAB [address] [address] Les Malone M.D. [id number] MCH (RBC) [Entitic mass] 27.8 pg Normal 26.0-34.[address] [facility] Comment on above: Performed By: #### 4 [id number] #### LAB [address] [address] Les Malone M.D. [id number] MCV (RBC) [Entitic vol] 90.8 fL Normal 80.0-100.[address] [facility] Comment on above: Performed By: #### 4 [id number] #### LAB [address] [address] Les Malone M.D. [id number] MEAN CORPUSCULAR HEMOGLOBIN CONC 30.6 g/dL Low 31.0-37.[address] [facility] Comment on above: Performed By: #### 4 [id number] #### LAB [address] [address] Les Malone M.D. [id number] Platelet mean volume (Bld) [Entitic vol] 10.4 fL Normal 9.4-12.[address] [facility] Comment on above: Performed By: #### 4 [id number] #### LAB [address] [address] Les Malone M.D. [id number] Platelets (Bld) [#/Vol] 256 10*3/uL Normal 150-[address] [facility] Comment on above: Performed By: #### 4 [id number] #### LAB [address] [address] Les Malone M.D. [id number] RBC (Bld) [#/Vol] 2.95 10*6/uL Low 4.50-5.90 [facility] Comment on above: Performed By: #### 4 [id number] #### LAB [address] [address] Les Malone M.D. [id number] WBC (Bld) [#/Vol] 9.10 10*3/uL Normal 4.50-11.00 [facility] Comment on above: Performed By: #### 4 [id number] #### LAB [address] [address] Les Malone M.D. [id number] CHEM 7on 02-05-2024 Anion gap [Moles/Vol] 14 mmol/L Normal 10-20 [facility] Comment on above: Order Comment: [facility] has implemented the eGFR calculation approach that does not have a coefficient for race that conforms to the NKF-ASN Task Force Recommendations. Performed By: #### 4 6953 #### LAB [address] [address] Les Malone M.D. [id number] Chloride [Moles/Vol] 103 mmol/L Normal 98-108 [facility] Comment on above: Order Comment: [facility] has implemented the eGFR calculation approach that does not have a coefficient for race that conforms to the NKF-ASN Task Force Recommendations. Performed By: #### 4 6953 #### LAB [address] [place], [place] [address] Les Malone M.D. [id number] Creatinine [Mass/Vol] 0.56 mg/dL Normal 0.50-1.30 [facility] Comment on above: Order Comment: [facility] has implemented the eGFR calculation approach that does not have a coefficient for race that conforms to the NKF-ASN Task Force Recommendations. Performed By: #### 4 6953 ####[facility] LAB [address] [place], [place] [address] Les Malone M.D. [id number] EGFR 124 mL/min/1.73 m2 Normal >=60 [facility] Comment on above: Order Comment: [facility] has implemented the eGFR calculation approach that does not have a coefficient for race that conforms to the NKF-ASN Task Force Recommendations. Result Comment: Fanta mated GFR was calculated using the 2020 CKD-EPI creatinine equation. Performed By: #### 4 6953 #### LAB [address] [place], [place] [address] Les Malone M.D. [id number] Glucose [Mass/Vol] 90 mg/dL Normal 65-99 [facility] Comment on above: Order Comment: [facility] has implemented the eGFR calculation approach that does not have a coefficient for race that conforms to the NKF-ASN Task Force Recommendations. Performed By: #### 4 6953 ####[facility] LAB [address] [place], [place] [address] Les Malone M.D. [id number] HCO3 (Bld) [Moles/Vol] 25 mmol/L Normal 21-[address] [facility] Comment on above: Order Comment: [facility] has implemented the eGFR calculation approach that does not have a coefficient for race that conforms to the NKF-ASN Task Force Recommendations. Performed By: #### 4 6953 #### LAB [address] [address] Les Malone M.D. [id number] Potassium [Moles/Vol] 3.7 mmol/L Normal 3.5-5.1 [facility] Comment on above: Order Comment: [facility] has implemented the eGFR calculation approach that does not have a coefficient for race that conforms to the NKF-ASN Task Force Recommendations. Performed By: #### 4 6953 #### LAB [address] [place], [place] [address] Les Malone M.D. [id number] Sodium [Moles/Vol] 138 mmol/L Normal 135-145 [facility] Comment on above: Order Comment: [facility] has implemented the eGFR calculation approach that does not have a coefficient for race that conforms to the NKF-ASN Task Force Recommendations. Performed By: #### 4 6953 #### LAB [address] [address] Les Malone M.D. [id number] Urea nitrogen [Mass/Vol] 22 mg/dL Normal 8-[address] [facility] Comment on above: Order Comment: [facility] has implemented the eGFR calculation approach that does not have a coefficient for race that conforms to the NKF-ASN Task Force Recommendations. Performed By: #### 4 6953 #### LAB [address] [address] Les Malone M.D. [id number] Urea nitrogen/Creatinine [Mass ratio] 39.3 mg/mg High 10.0-20.[address] [facility] Comment on above: Order Comment: [facility] has implemented the eGFR calculation approach that does not have a coefficient for race that conforms to the NKF-ASN Task Force Recommendations. Performed By: #### 4 6953 #### LAB [address] [place], [place] [address] Les Malone M.D. [id number] POTASSIUM LEVELon 02-05-2024 Potassium [Moles/Vol] 4.2 mmol/L Normal 3.5-5.1 [facility] Comment on above: Performed By: #### 4 6351 #### LAB [address] [place], [place] [address] Les Malone M.D. [id number] BETA 2 TRANSFERRIN, BODY FLU IDon 02-04-2024 [place] - BETA-2 TRANSFERRIN, BF Positive Abnormal [facility] Comment on above: Order Comment: Left crani site Result Comment: ---- REFERENCE VALUE Negative, no beta-2 transferrin (spinal fluid) detected. ADDITIONAL INFORMATION This test was developed and its performance characteristicsdetermined by [facility] in a manner consistent with CLIArequirements. This test has not been cleared or approved bythe U.S. Food and Drug Administration.Test Performed by:[address] Director: Jeffrey Lamar Ph.D.; CLIA# [id number] Performed By: #### 4 7155 ####[address] BODY FLUID AEROBIC AND ANAER OBIC CULTUREon 02-04-2024 BODY FLUID AEROBIC AND ANAEROBIC CULTURE CULTURE No Growth after 5 days GRAM STAIN RESULT Rare WBC Few RBC No Organisms Seen Normal 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 [id number] CBCon 02-04-2024 AUTO NRBC 0.0 % [facility] Comment on above: Performed By: #### 4 [id number] #### LAB [address] [place], [place] [address] Les Malone M.D. [id number] AUTO NRBC ABS COUNT 0.00 K/mcL Normal 0.00-0.00 [facility] Comment on above: Performed By: #### 4 [id number] #### LAB [address] [address] Les Malone M.D. [id number] Erythrocyte distribution width (RBC) [Ratio] 17.0 % High 11.6-14.[address] [facility] Comment on above: Performed By: #### 4 [id number] #### LAB [address] [address] Les Maolne M.D. [id number] Hematocrit (Bld) [Volume fraction] 26.8 % Low 41.0-53.[address] [facility] Comment on above: Performed By: #### 4 [id number] #### LAB [address] [address] Les Malone M.D. [id number] Hemoglobin (Bld) [Mass/Vol] 8.2 g/dL Low 13.5-17.[address] [facility] Comment on above: Performed By: #### 4 [id number] #### LAB [address] [address] Les Malone M.D. [id number] MCH (RBC) [Entitic mass] 27.4 pg Normal 26.0-34.[address] [facility] Comment on above: Performed By: #### 4 [id number] #### LAB [address] [address] Les Malone M.D. [id number] MCV (RBC) [Entitic vol] 89.6 fL Normal 80.0-100.[address] [facility] Comment on above: Performed By: #### 4 [id number] #### LAB [address] [address] Les Malone M.D. [id number] MEAN CORPUSCULAR HEMOGLOBIN CONC 30.6 g/dL Low 31.0-37.[address] [facility] Comment on above: Performed By: #### 4 [id number] #### LAB [address] [address] Les Malone M.D. [id number] Platelet mean volume (Bld) [Entitic vol] 10.5 fL Normal 9.4-12.[address] [facility] Comment on above: Performed By: #### 4 [id number] #### LAB [address] [address] Les Malone M.D. [id number] Platelets (Bld) [#/Vol] 221 10*3/uL Normal 150-[address] [facility] Comment on above: Performed By: #### 4 5218 ####[facility] LAB [address] [address] Les Malone M.D. [id number] RBC (Bld) [#/Vol] 2.99 10*6/uL Low 4.50-5.90 [facility] Comment on above: Performed By: #### 4 [id number] #### LAB [address] [address] Les Malone M.D. [id number] WBC (Bld) [#/Vol] 9.15 10*3/uL Normal 4.50-11.00 [facility] Comment on above: Performed By: #### 4 [id number] #### LAB [address] [address] Les Malone M.D. [id number] CHEM 7on 02-04-2024 Anion gap [Moles/Vol] 14 mmol/L Normal 10-20 [facility] Comment on above: Order Comment: [facility] has implemented the eGFR calculation approach that does not have a coefficient for race that conforms to the NKF-ASN Task Force Recommendations. Performed By: #### 4 6953 #### LAB [address] [address] Les Malone M.D. [id number] Chloride [Moles/Vol] 103 mmol/L Normal 98-108 [facility] Comment on above: Order Comment: [facility] has implemented the eGFR calculation approach that does not have a coefficient for race that conforms to the NKF-ASN Task Force Recommendations. Performed By: #### 4 6953 #### LAB [address] [place], [place] [address] Les Malone M.D. [id number] Creatinine [Mass/Vol] 0.48 mg/dL Low 0.50-1.30 [facility] Comment on above: Order Comment: [facility] has implemented the eGFR calculation approach that does not have a coefficient for race that conforms to the NKF-ASN Task Force Recommendations. Performed By: #### 4 6953 #### LAB [address] [address] Les Malone M.D. [id number] EGFR 130 mL/min/1.73 m2 Normal >=60 [facility] Comment on above: Order Comment: [facility] has implemented the eGFR calculation approach that does not have a coefficient for race that conforms to the NKF-ASN Task Force Recommendations. Result Comment: Fanta mated GFR was calculated using the 2020 CKD-EPI creatinine equation. Performed By: #### 4 6953 #### LAB [address] [address] Les Malone M.D. [id number] Glucose [Mass/Vol] 93 mg/dL Normal 65-99 [facility] Comment on above: Order Comment: [facility] has implemented the eGFR calculation approach that does not have a coefficient for race that conforms to the NKF-ASN Task Force Recommendations. Performed By: #### 4 6953 ####[facility] [address] [address] Les Malone M.D. [id number] HCO3 (Bld) [Moles/Vol] 26 mmol/L Normal 21-[address] [facility] Comment on above: Order Comment: [facility] has implemented the eGFR calculation approach that does not have a coefficient for race that conforms to the NKF-ASN Task Force Recommendations. Performed By: #### 4 6953 ####[facility] [address] [address] Les Malone M.D. [id number] Potassium [Moles/Vol] 4.0 mmol/L Normal 3.5-5.1 [facility] Comment on above: Order Comment: [facility] has implemented the eGFR calculation approach that does not have a coefficient for race that conforms to the NKF-ASN Task Force Recommendations. Performed By: #### 4 6953 #### LAB [address] [place], [place] [address] Les Malone M.D. [id number] Sodium [Moles/Vol] 139 mmol/L Normal 135-145 [facility] Comment on above: Order Comment: [facility] has implemented the eGFR calculation approach that does not have a coefficient for race that conforms to the NKF-ASN Task Force Recommendations. Performed By: #### 4 6953 #### LAB [address] [place], [place] [address] Les Malone M.D. [id number] Urea nitrogen [Mass/Vol] 24 mg/dL Normal 8-[address] [facility] Comment on above: Order Comment: [facility] has implemented the eGFR calculation approach that does not have a coefficient for race that conforms to the NKF-ASN Task Force Recommendations. Performed By: #### 4 6953 #### LAB [address] [place], [place] [address] Les Malone M.D. [id number] Urea nitrogen/Creatinine [Mass ratio] 50.0 mg/mg High 10.0-20.[address] [facility] Comment on above: Order Comment: [facility] has implemented the eGFR calculation approach that does not have a coefficient for race that conforms to the NKF-ASN Task Force Recommendations. Performed By: #### 4 6953 #### LAB [address] [place], [place] [address] Les Malone M.D. [id number] CT HEAD OR BRAIN WITHOUT CON TRASTon 02-04-2024 CT HEAD OR BRAIN WITHOUT CONTRAST Normal [facility] Comment on above: Order Comment: Injur y/Trauma or Illness?:Illness/OtherHow long have you had these symptoms (acute/chronic)?:AcuteReason for exam?:swelling lt side of headType of Exam?:InitialAdditional signs and symptoms?:. POC GLUCOSE - RALSon 10-02-2 024 Glucose [Mass/Vol] 111 mg/dL High [address] [place] [address] Comment on above: Performed By: #### 4 6932 #### LAB [address] [address] Les Malone M.D. [id number] Glucose [Mass/Vol] 114 mg/dL High [address] [place] [address] Comment on above: Performed By: #### 4 6932 #### LAB [address] [address] Les Malone M.D. [id number] Glucose [Mass/Vol] 99 mg/dL Normal [address] [place] [address] Comment on above: Performed By: #### 4 6932 #### LAB [address] [address] Les Malone M.D. [id number] Glucose [Mass/Vol] 106 mg/dL High [address] [place] [address] Comment on above: Performed By: #### 4 6932 #### LAB [address] [address] Les Malone M.D. [id number] CBCon 02-03-2024 AUTO NRBC 0.0 % Normal [facility] Comment on above: Performed By: #### 4 [id number] #### LAB [address] [address] Les Malone M.D. [id number] AUTO NRBC ABS COUNT 0.00 K/mcL Normal 0.00-0.00 [facility] Comment on above: Performed By: #### 4 [id number] #### LAB [address] [address] Les Malone M.D. [id number] Erythrocyte distribution width (RBC) [Ratio] 17.1 % High 11.6-14.[address] [facility] Comment on above: Performed By: #### 4 [id number] #### LAB [address] [address] Les Malone M.D. [id number] Hematocrit (Bld) [Volume fraction] 26.7 % Low 41.0-53.[address] [facility] Comment on above: Performed By: #### 4 [id number] #### LAB [address] [address] Les Malone M.D. [id number] Hemoglobin (Bld) [Mass/Vol] 8.2 g/dL Low 13.5-17.[address] [facility] Comment on above: Performed By: #### 4 [id number] #### LAB [address] [address] Les Malone M.D. [id number] MCH (RBC) [Entitic mass] 27.9 pg Normal 26.0-34.[address] [facility] Comment on above: Performed By: #### 4 [id number] #### LAB [address] [address] Les Malone M.D. [id number] MCV (RBC) [Entitic vol] 90.8 fL Normal 80.0-100.[address] [facility] Comment on above: Performed By: #### 4 [id number] #### LAB [address] [address] Les Malone M.D. [id number] MEAN CORPUSCULAR HEMOGLOBIN CONC 30.7 g/dL Low 31.0-37.[address] [facility] Comment on above: Performed By: #### 4 [id number] #### LAB [address] [address] Les Malone M.D. [id number] Platelet mean volume (Bld) [Entitic vol] 10.7 fL Normal 9.4-12.[address] [facility] Comment on above: Performed By: #### 4 [id number] #### LAB [address] [address] Les Malone M.D. [id number] Platelets (Bld) [#/Vol] 192 10*3/uL Normal 150-[address] [facility] Comment on above: Performed By: #### 4 [id number] #### LAB [address] [address] Les Malone M.D. [id number] RBC (Bld) [#/Vol] 2.94 10*6/uL Low 4.50-5.90 [facility] Comment on above: Performed By: #### 4 [id number] #### LAB [address] [address] Les Malone M.D. [id number] WBC (Bld) [#/Vol] 8.52 10*3/uL Normal 4.50-11.00 [facility] Comment on above: Performed By: #### 4 [id number] #### LAB [address] [address] Les Malone M.D. [id number] CHEM 702-03-2024 Anion gap [Moles/Vol] 12 mmol/L Normal 10-20 [facility] Comment on above: Order Comment: [facility] has implemented the eGFR calculation approach that does not have a coefficient for race that conforms to the NKF-ASN Task Force Recommendations. Performed By: #### 4 6953 #### LAB [address] [address] Les Malone M.D. [id number] Chloride [Moles/Vol] 104 mmol/L Normal 98-108 [facility] Comment on above: Order Comment: [facility] has implemented the eGFR calculation approach that does not have a coefficient for race that conforms to the NKF-ASN Task Force Recommendations. Performed By: #### 4 6953 #### LAB [address] [address] Les Malone M.D. [id number] Creatinine [Mass/Vol] 0.45 mg/dL Low 0.50-1.30 [facility] Comment on above: Order Comment: [facility] has implemented the eGFR calculation approach that does not have a coefficient for race that conforms to the NKF-ASN Task Force Recommendations. Performed By: #### 4 6953 #### LAB [address] [address] Les Malone M.D. [id number] EGFR 132 mL/min/1.73 m2 Normal >=60 [facility] Comment on above: Order Comment: [facility] has implemented the eGFR calculation approach that does not have a coefficient for race that conforms to the NKF-ASN Task Force Recommendations. Result Comment: Fanta mated GFR was calculated using the 2020 CKD-EPI creatinine equation. Performed By: #### 4 6953 #### LAB [address] [address] Les Malone M.D. [id number] Glucose [Mass/Vol] 111 mg/dL High 65-99 [facility] Comment on above: Order Comment: [facility] has implemented the eGFR calculation approach that does not have a coefficient for race that conforms to the NKF-ASN Task Force Recommendations. Performed By: #### 4 6953 #### LAB [address] [place], [place] [address] Les Malone M.D. [id number] HCO3 (Bld) [Moles/Vol] 26 mmol/L Normal 21-[address] [facility] Comment on above: Order Comment: [facility] has implemented the eGFR calculation approach that does not have a coefficient for race that conforms to the NKF-ASN Task Force Recommendations. Performed By: #### 4 6953 #### LAB [address] [place], [place] [address] Les Malone M.D. [id number] Potassium [Moles/Vol] 4.0 mmol/L Normal 3.5-5.1 [facility] Comment on above: Order Comment: [facility] has implemented the eGFR calculation approach that does not have a coefficient for race that conforms to the NKF-ASN Task Force Recommendations. Performed By: #### 4 [id number] #### LAB [address] [place] [address] Les Malone M.D. [id number] Sodium [Moles/Vol] 138 mmol/L Normal 135-145 [facility] Comment on above: Order Comment: [facility] has implemented the eGFR calculation approach that does not have a coefficient for race that conforms to the NKF-ASN Task Force Recommendations. Performed By: #### 4 [id number] #### LAB [address] [place], [place] [address] Les Malone M.D. [id number] Urea nitrogen [Mass/Vol] 28 mg/dL High 8-[address] [facility] Comment on above: Order Comment: [facility] has implemented the eGFR calculation approach that does not have a coefficient for race that conforms to the NKF-ASN Task Force Recommendations. Performed By: #### 4 6953 ####[facility] LAB [address] [place] [address] Les Malone M.D. [id number] Urea nitrogen/Creatinine [Mass ratio] 62.2 mg/mg High 10.0-20.[address] [facility] Comment on above: Order Comment: [facility] has implemented the eGFR calculation approach that does not have a coefficient for race that conforms to the NKF-ASN Task Force Recommendations. Performed By: #### 4 [id number] ####[facility] LAB [address] [place] [address] Les Malone M.D. [id number] POC GLUCOSE [facility] 024 Glucose [Mass/Vol] 101 mg/dL High [address] [place] [address] Comment on above: Performed By: #### 4 [id number] ####[facility] LAB [address] [place] [id number] Les Malone M.D. [id number] Glucose [Mass/Vol] 93 mg/dL Normal 6599 [facility] Comment on above: Performed By: #### 4 [id number] ####[facility] LAB [address] [address] Les Malone M.D. [id number] Glucose [Mass/Vol] 96 mg/dL Normal [address] [place] [address] Comment on above: Performed By: #### 4 6932 ####[facility] LAB [address] [place] [address] Les Malone M.D. [id number] Glucose [Mass/Vol] 123 mg/dL High [address] [place] [address] Comment on above: Performed By: #### 4 [id number] #### LAB [address] [place] [address] Les Malone M.D. [id number] Glucose [Mass/Vol] 115 mg/dL [address] Comment on above: Performed By: #### 4 6932 ####[facility] LAB [address] [place] [address] Les Malone M.D. [id number] Glucose [Mass/Vol] 125 mg/dL [address] Comment on above: Performed By: #### 4 [id number] #### LAB [address] [place] [address] Les Malone M.D. [id number] CBCon 02-02-2024 AUTO NRBC 0.0 % Normal [facility] Comment on above: Performed By: #### 4 [id number] #### LAB [address] [place] [address] Les Malone M.D. [id number] AUTO NRBC ABS COUNT 0.00 K/mcL Normal 0.00-0.00 [facility] Comment on above: Performed By: #### 4 [id number] #### LAB [address] [place] [address] Les Malone M.D. [id number] Erythrocyte distribution width (RBC) [Ratio] 17.0 % High 11.6-14.[address] [facility] Comment on above: Performed By: #### 4 [id number] ####[facility] LAB [address] [place] [address] Les Malone M.D. [id number] Hematocrit (Bld) [Volume fraction] 25.6 % Low 41.0-53.[address] [facility] Comment on above: Performed By: #### 4 [id number] #### LAB [address] [place] [address] Les Malone M.D. [id number] Hemoglobin (Bld) [Mass/Vol] 7.8 g/dL Low 13.5-17.[address] [facility] Comment on above: Performed By: #### 4 [id number] #### LAB [address] [place] [address] Les Malone M.D. [id number] MCH (RBC) [Entitic mass] 27.5 pg Normal 26.0-34.[address] [facility] Comment on above: Performed By: #### 4 [id number] #### LAB [address] [place] [address] Les Malone M.D. [id number] MCV (RBC) [Entitic vol] 90.1 fL Normal 80.0-100.[address] [facility] Comment on above: Performed By: #### 4 [id number] ####[facility] [address] [place] [address] Les Malone M.D. [id number] MEAN CORPUSCULAR HEMOGLOBIN CONC 30.5 g/dL Low 31.0-37.[address] [facility] Comment on above: Performed By: #### 4 [id number] #### LAB [address] [place] [address] Les Malone M.D. [id number] Platelet mean volume (Bld) [Entitic vol] 10.6 fL Normal 9.4-12.[address] [facility] Comment on above: Performed By: #### 4 [id number] #### LAB [address] [place] [address] Les Malone M.D. [id number] Platelets (Bld) [#/Vol] 163 10*3/uL Normal 150-[address] [facility] Comment on above: Performed By: #### 4 [id number] #### LAB [address] [place] [address] Les Malone M.D. [id number] RBC (Bld) [#/Vol] 2.84 10*6/uL Low 4.50-5.90 [facility] Comment on above: Performed By: #### 4 [id number] #### LAB [address] [place] [address] Les Malone M.D. [id number] WBC (Bld) [#/Vol] 8.52 10*3/uL Normal 4.50-11.00 [facility] Comment on above: Performed By: #### 4 [id number] #### LAB [address] [place], [place] [address] Les Malone M.D. [id number] CHEM 7on 02-01-2023 Anion gap [Moles/Vol] 13 mmol/L Normal 10-20 [facility] Comment on above: Order Comment: [facility] has implemented the eGFR calculation approach that does not have a coefficient for race that conforms to the NKF-ASN Task Force Recommendations. Performed By: #### 4 [id number] #### LAB [address] [place], [place] [address] Les Maloen M.D. [id number] Chloride [Moles/Vol] 103 mmol/L Normal 98-108 [facility] Comment on above: Order Comment: [facility] has implemented the eGFR calculation approach that does not have a coefficient for race that conforms to the NKF-ASN Task Force Recommendations. Performed By: #### 4 [id number] #### LAB [address] [place], [place] [address] Les Malone M.D. [id number] Creatinine [Mass/Vol] 0.43 mg/dL Low 0.50-1.30 [facility] Comment on above: Order Comment: [facility] has implemented the eGFR calculation approach that does not have a coefficient for race that conforms to the NKF-ASN Task Force Recommendations. Performed By: #### 4 [id number] #### LAB [address] [place], [place] [address] Les Malone M.D. [id number] EGFR 134 mL/min/1.73 m2 Normal >=60 [facility] Comment on above: Order Comment: [facility] has implemented the eGFR calculation approach that does not have a coefficient for race that conforms to the NKF-ASN Task Force Recommendations. Result Comment: Fanta mated GFR was calculated using the 2020 CKD-EPI creatinine equation. Performed By: #### 4 [id number] ####[facility] LAB [address] [place] [address] Les Malone M.D. [id number] Glucose [Mass/Vol] 116 mg/dL High 65-99 [facility] Comment on above: Order Comment: [facility] has implemented the eGFR calculation approach that does not have a coefficient for race that conforms to the NKF-ASN Task Force Recommendations. Performed By: #### 4 6953 ####[facility] LAB [address] [place] [address] Les Malone M.D. [id number] HCO3 (Bld) [Moles/Vol] 24 mmol/L Normal 21-[address] [facility] Comment on above: Order Comment: [facility] has implemented the eGFR calculation approach that does not have a coefficient for race that conforms to the NKF-ASN Task Force Recommendations. Performed By: #### 4 6953 ####[facility] LAB [address] [place] [address] Les Malone M.D. [id number] Potassium [Moles/Vol] 4.1 mmol/L Normal 3.5-5.1 [facility] Comment on above: Order Comment: [facility] has implemented the eGFR calculation approach that does not have a coefficient for race that conforms to the NKF-ASN Task Force Recommendations. Performed By: #### 4 [id number] #### LAB [address] [place] [address] Les Malone M.D. [id number] Sodium [Moles/Vol] 136 mmol/L Normal 135-145 [facility] Comment on above: Order Comment: [facility] has implemented the eGFR calculation approach that does not have a coefficient for race that conforms to the NKF-ASN Task Force Recommendations. Performed By: #### 4 6953 ####[facility] LAB [address] [place] [address] Les Malone M.D. [id number] Urea nitrogen [Mass/Vol] 26 mg/dL High 8-[address] [facility] Comment on above: Order Comment: [facility] has implemented the eGFR calculation approach that does not have a coefficient for race that conforms to the NKF-ASN Task Force Recommendations. Performed By: #### 4 [id number] #### LAB [address] [place] [address] Les Malone M.D. [id number] Urea nitrogen/Creatinine [Mass ratio] 60.5 mg/mg High 10.0-20.[address] [facility] Comment on above: Order Comment: [facility] has implemented the eGFR calculation approach that does not have a coefficient for race that conforms to the NKF-ASN Task Force Recommendations. Performed By: #### 4 [id number] #### LAB [address] [place] [address] Les Malone M.D. [id number] [facility] GLUCOSE [facility] 024 Glucose [Mass/Vol] 119 mg/dL High [address] [place] [address] Comment on above: Performed By: #### 4 [id number] #### LAB [address] [place] [address] Les Malone M.D. [id number] Glucose [Mass/Vol] 123 mg/dL [address] Comment on above: Performed By: #### 4 6932 #### LAB [address] [place] [address] Les Malone M.D. [id number] Glucose [Mass/Vol] 126 mg/dL [address] Comment on above: Performed By: #### 4 6965 #### LAB [address] [place] [address] Les Malone M.D. [id number] Glucose [Mass/Vol] 120 mg/dL [address] Comment on above: Performed By: #### 4 6972 ####[facility] LAB [address] [place] [address] Les Malone M.D. [id number] Glucose [Mass/Vol] 116 mg/dL [address] Comment on above: Performed By: #### 4 6986 ####[facility] LAB [address] [place] [address] Les Malone M.D. [id number] Glucose [Mass/Vol] 115 mg/dL High 65-99 [facility] Comment on above: Performed By: #### 4 [id number] #### LAB [address] [place] [address] Les Malone M.D. [id number] XR MODIFIED BARIUM SWALLOWon 02-02-2024 XR MODIFIED BARIUM SWALLOW Normal [facility] Comment on above: Order Comment: Injur y/Trauma or Illness?:Illness/OtherHow long have you had these symptoms (acute/chronic)?:AcuteReason for exam?:assess pharyngeal swallowType of Exam?:InitialAdditional signs and symptoms?:.Fluoro time in minutes:3.05three minutes and five secondsFluoro dose in mGy?:151.4 CBCon 02-01-2024 AUTO NRBC 0.0 % Normal [facility] Comment on above: Performed By: #### 4 [id number] #### LAB [address] [place] [address] Les Malone M.D. [id number] AUTO NRBC ABS COUNT 0.00 K/mcL Normal 0.00-0.00 [facility] Comment on above: Performed By: #### 4 [id number] #### LAB [address] [place] [address] Les Malone M.D. [id number] Erythrocyte distribution width (RBC) [Ratio] 17.4 % High 11.6-14.[address] [facility] Comment on above: Performed By: #### 4 [id number] #### LAB [address] [place] [address] Les Malone M.D. [id number] Hematocrit (Bld) [Volume fraction] 25.1 % Low 41.0-53.[address] [facility] Comment on above: Performed By: #### 4 [id number] #### LAB [address] [place] [address] Les Malone M.D. [id number] Hemoglobin (Bld) [Mass/Vol] 7.8 g/dL Low 13.5-17.[address] [facility] Comment on above: Performed By: #### 4 [id number] #### LAB [address] [place] [address] Les Malone M.D. [id number] MCH (RBC) [Entitic mass] 28.2 pg Normal 26.0-34.[address] [facility] Comment on above: Performed By: #### 4 [id number] #### LAB [address] [place] [address] Les Malone M.D. [id number] MCV (RBC) [Entitic vol] 90.6 fL Normal 80.0-100.[address] [facility] Comment on above: Performed By: #### 4 [id number] #### LAB [address] [place] [address] Les Malone M.D. [id number] MEAN CORPUSCULAR HEMOGLOBIN CONC 31.1 g/dL Normal 31.0-37.[address] [facility] Comment on above: Performed By: #### 4 [id number] #### LAB [address] [place] [address] Les Malone M.D. [id number] Platelet mean volume (Bld) [Entitic vol] 11.2 fL Normal 9.4-12.[address] [facility] Comment on above: Performed By: #### 4 [id number] #### LAB [address] [place] [address] Les Malone M.D. [id number] Platelets (Bld) [#/Vol] 153 10*3/uL Normal 150-[address] [facility] Comment on above: Performed By: #### 4 [id number] #### LAB [address] [place] [address] Les Malone M.D. [id number] RBC (Bld) [#/Vol] 2.77 10*6/uL Low 4.50-5.90 [facility] Comment on above: Performed By: #### 4 [id number] #### LAB [address] [place] [address] Les Malone M.D. [id number] WBC (Bld) [#/Vol] 9.48 10*3/uL Normal 4.50-11.00 [facility] Comment on above: Performed By: #### 4 [id number] #### LAB [address] [place], [place] [address] Les Malone M.D. [id number] CHEM 702-01-2024 Anion gap [Moles/Vol] 12 mmol/L Normal 10-20 [facility] Comment on above: Order Comment: [facility] has implemented the eGFR calculation approach that does not have a coefficient for race that conforms to the NKF-ASN Task Force Recommendations. Performed By: #### 4 [id number] #### LAB [address] [place], [place] [address] Les Malone M.D. [id number] Chloride [Moles/Vol] 107 mmol/L Normal 98-108 [facility] Comment on above: Order Comment: [facility] has implemented the eGFR calculation approach that does not have a coefficient for race that conforms to the NKF-ASN Task Force Recommendations. Performed By: #### 4 [id number] #### LAB [address] [place], [place] [address] Les Malone M.D. [id number] Creatinine [Mass/Vol] 0.45 mg/dL Low 0.50-1.30 [facility] Comment on above: Order Comment: [facility] has implemented the eGFR calculation approach that does not have a coefficient for race that conforms to the NKF-ASN Task Force Recommendations. Performed By: #### 4 [id number] #### LAB [address] [place], [place] [address] Les Malone M.D. [id number] EGFR 132 mL/min/1.73 m2 Normal >=60 [facility] Comment on above: Order Comment: [facility] has implemented the eGFR calculation approach that does not have a coefficient for race that conforms to the NKF-ASN Task Force Recommendations. Result Comment: Fanta mated GFR was calculated using the 2020 CKD-EPI creatinine equation. Performed By: #### 4 [id number] #### LAB [address] [place] [address] Les Malone M.D. [id number] Glucose [Mass/Vol] 116 mg/dL High 65-99 [facility] Comment on above: Order Comment: [facility] has implemented the eGFR calculation approach that does not have a coefficient for race that conforms to the NKF-ASN Task Force Recommendations. Performed By: #### 4 [id number] #### LAB [address] [place] [address] Les Malone M.D. [id number] HCO3 (Bld) [Moles/Vol] 24 mmol/L Normal 21-[address] [facility] Comment on above: Order Comment: [facility] has implemented the eGFR calculation approach that does not have a coefficient for race that conforms to the NKF-ASN Task Force Recommendations. Performed By: #### 4 [id number] #### LAB [address] [place] [address] Les Malone M.D. [id number] Potassium [Moles/Vol] 4.2 mmol/L Normal 3.5-5.1 [facility] Comment on above: Order Comment: [facility] has implemented the eGFR calculation approach that does not have a coefficient for race that conforms to the NKF-ASN Task Force Recommendations. Performed By: #### 4 [id number] #### LAB [address] [place] [address] Les Malone M.D. [id number] Sodium [Moles/Vol] 139 mmol/L Normal 135-145 [facility] Comment on above: Order Comment: [facility] has implemented the eGFR calculation approach that does not have a coefficient for race that conforms to the NKF-ASN Task Force Recommendations. Performed By: #### 4 6953 ####[facility] LAB [address] [place] [address] Les Malone M.D. [id number] Urea nitrogen [Mass/Vol] 31 mg/dL High 8-[address] [facility] Comment on above: Order Comment: [facility] has implemented the eGFR calculation approach that does not have a coefficient for race that conforms to the NKF-ASN Task Force Recommendations. Performed By: #### 4 [id number] #### LAB [address] [place] [address] Les Malone M.D. [id number] Urea nitrogen/Creatinine [Mass ratio] 68.9 mg/mg High 10.0-20.[address] [facility] Comment on above: Order Comment: [facility] has implemented the eGFR calculation approach that does not have a coefficient for race that conforms to the NKF-ASN Task Force Recommendations. Performed By: #### 4 6953 ####[facility] LAB [address] [place] [address] Les Malone M.D. [id number] [facility] GLUCOSE [facility] 024 Glucose [Mass/Vol] 101 mg/dL [address] Comment on above: Performed By: #### 4 6932 #### LAB [address] [place] [address] Les Malone M.D. [id number] Glucose [Mass/Vol] 119 mg/dL [address] Comment on above: Performed By: #### 4 6932 ####[facility] [address] [place] [address] Les Malone M.D. [id number] Glucose [Mass/Vol] 111 mg/dL [address] Comment on above: Performed By: #### 4 6932 #### LAB [address] [place] [address] Les Malone M.D. [id number] Glucose [Mass/Vol] 125 mg/dL [address] Comment on above: Performed By: #### 4 6932 ####[facility] LAB [address] [place] [address] Les Malone M.D. [id number] Glucose [Mass/Vol] 125 mg/dL [address] Comment on above: Performed By: #### 4 [id number] ####[facility] LAB [address] [place] [address] Les Malone M.D. [id number] CBCon 01-31-2024 AUTO NRBC 0.0 % Normal [facility] Comment on above: Performed By: #### 4 [id number] #### LAB [address] [place] [address] Les Malone M.D. [id number] AUTO NRBC ABS COUNT 0.00 K/mcL Normal 0.00-0.00 [facility] Comment on above: Performed By: #### 4 [id number] #### LAB [address] [place] [address] Les Malone M.D. [id number] Erythrocyte distribution width (RBC) [Ratio] 17.9 % High 11.6-14.[address] [facility] Comment on above: Performed By: #### 4 [id number] #### LAB [address] [place] [address] Les Malone M.D. [id number] Hematocrit (Bld) [Volume fraction] 24.7 % Low 41.0-53.[address] [facility] Comment on above: Performed By: #### 4 [id number] #### LAB [address] [place] [address] Les Malone M.D. [id number] Hemoglobin (Bld) [Mass/Vol] 8.0 g/dL Low 13.5-17.[address] [facility] Comment on above: Performed By: #### 4 [id number] #### LAB [address] [place] [address] Les Malone M.D. [id number] MCH (RBC) [Entitic mass] 28.0 pg Normal 26.0-34.[address] [facility] Comment on above: Performed By: #### 4 [id number] #### LAB [address] [place] [address] Les Malone M.D. [id number] MCV (RBC) [Entitic vol] 86.4 fL Normal 80.0-100.[address] [facility] Comment on above: Performed By: #### 4 [id number] #### LAB [address] [place] [address] Les Malone M.D. [id number] MEAN CORPUSCULAR HEMOGLOBIN CONC 32.4 g/dL Normal 31.0-37.[address] [facility] Comment on above: Performed By: #### 4 [id number] #### LAB [address] [place] [address] Les Malone M.D. [id number] Platelet mean volume (Bld) [Entitic vol] 10.3 fL Normal 9.4-12.[address] [facility] Comment on above: Performed By: #### 4 [id number] #### LAB [address] [place] [address] Les Malone M.D. [id number] Platelets (Bld) [#/Vol] 152 10*3/uL Normal 150-[address] [facility] Comment on above: Performed By: #### 4 [id number] #### LAB [address] [place] [address] Les Malone M.D. [id number] RBC (Bld) [#/Vol] 2.86 10*6/uL Low 4.50-5.90 [facility] Comment on above: Performed By: #### 4 [id number] #### LAB [address] [place] [address] Les Malone M.D. [id number] WBC (Bld) [#/Vol] 11.16 10*3/uL High 4.50-11.00 [facility] Comment on above: Performed By: #### 4 [id number] #### LAB [address] [place] [address] Les Malone M.D. [id number] CHEM 01-31-2024 Anion gap [Moles/Vol] 12 mmol/L Normal 10-20 [facility] Comment on above: Order Comment: [facility] has implemented the eGFR calculation approach that does not have a coefficient for race that conforms to the NKF-ASN Task Force Recommendations. Performed By: #### 4 6953 ####[facility] LAB [address] [place], [place] [address] Les Malone M.D. [id number] Chloride [Moles/Vol] 105 mmol/L Normal 98-108 [facility] Comment on above: Order Comment: [facility] has implemented the eGFR calculation approach that does not have a coefficient for race that conforms to the NKF-ASN Task Force Recommendations. Performed By: #### 4 6953 ####[facility] LAB [address] [place] [address] Les Malone M.D. [id number] Creatinine [Mass/Vol] 0.47 mg/dL Low 0.50-1.30 [facility] Comment on above: Order Comment: [facility] has implemented the eGFR calculation approach that does not have a coefficient for race that conforms to the NKF-ASN Task Force Recommendations. Performed By: #### 4 [id number] #### LAB [address] [place] [address] Les Malone M.D. [id number] EGFR 131 mL/min/1.73 m2 Normal >=60 [facility] Comment on above: Order Comment: [facility] has implemented the eGFR calculation approach that does not have a coefficient for race that conforms to the NKF-ASN Task Force Recommendations. Result Comment: Fanta mated GFR was calculated using the 2020 CKD-EPI creatinine equation. Performed By: #### 4 [id number] #### LAB [address] [place] [address] Les Malone M.D. [id number] Glucose [Mass/Vol] 121 mg/dL High 65-99 [facility] Comment on above: Order Comment: [facility] has implemented the eGFR calculation approach that does not have a coefficient for race that conforms to the NKF-ASN Task Force Recommendations. Performed By: #### 4 6953 ####[facility] [address] [place] [address] Les Malone M.D. [id number] HCO3 (Bld) [Moles/Vol] 25 mmol/L Normal 21-[address] [facility] Comment on above: Order Comment: [facility] has implemented the eGFR calculation approach that does not have a coefficient for race that conforms to the NKF-ASN Task Force Recommendations. Performed By: #### 4 6953 ####[facility] LAB [address] [place], [place] [address] Les Malone M.D. [id number] Potassium [Moles/Vol] 3.7 mmol/L Normal 3.5-5.1 [facility] Comment on above: Order Comment: [facility] has implemented the eGFR calculation approach that does not have a coefficient for race that conforms to the NKF-ASN Task Force Recommendations. Performed By: #### 4 [id number] #### LAB [address] [place] [address] Les Malone M.D. [id number] Sodium [Moles/Vol] 138 mmol/L Normal 135-145 [facility] Comment on above: Order Comment: [facility] has implemented the eGFR calculation approach that does not have a coefficient for race that conforms to the NKF-ASN Task Force Recommendations. Performed By: #### 4 [id number] #### LAB [address] [place] [address] Les Malone M.D. [id number] Urea nitrogen [Mass/Vol] 32 mg/dL High 8-[address] [facility] Comment on above: Order Comment: [facility] has implemented the eGFR calculation approach that does not have a coefficient for race that conforms to the NKF-ASN Task Force Recommendations. Performed By: #### 4 6953 ####[facility] LAB [address] [place] [address] Les Malone M.D. [id number] Urea nitrogen/Creatinine [Mass ratio] 68.1 mg/mg High 10.0-20.[address] [facility] Comment on above: Order Comment: [facility] has implemented the eGFR calculation approach that does not have a coefficient for race that conforms to the NKF-ASN Task Force Recommendations. Performed By: #### 4 [id number] #### LAB [address] [address] Les Malone M.D. [id number] POC GLUCOSE - [facility] 024 Glucose [Mass/Vol] 116 mg/dL High [address] [place] [address] Comment on above: Performed By: #### 4 [id number] ####[facility] [address] [address] Les Malone M.D. [id number] Glucose [Mass/Vol] 129 mg/dL [address] Comment on above: Performed By: #### 4 6932 ####[facility] [address] [address] Les Malone M.D. [id number] Glucose [Mass/Vol] 112 mg/dL [address] Comment on above: Performed By: #### 4 [id number] #### LAB [address] [address] Les Malone M.D. [id number] Glucose [Mass/Vol] 116 mg/dL [address] Comment on above: Performed By: #### 4 6932 ####[facility] [address] [address] Les Malone M.D. [id number] Glucose [Mass/Vol] 139 mg/dL [address] Comment on above: Performed By: #### 4 [id number] #### LAB [address] [address] Les Malone M.D. [id number] Glucose [Mass/Vol] 120 mg/dL [address] Comment on above: Performed By: #### 4 6932 ####[facility] [address] [address] Les Malone M.D. [id number] CBCon 01-30-2024 AUTO NRBC 0.0 % Normal [facility] Comment on above: Performed By: #### 4 [id number] ####[facility] [address] [address] Les Malone M.D. [id number] AUTO NRBC ABS COUNT 0.00 K/mcL Normal 0.00-0.00 [facility] Comment on above: Performed By: #### 4 [id number] #### LAB [address] [address] Les Malone M.D. [id number] Erythrocyte distribution width (RBC) [Ratio] 17.2 % High 11.6-14.[address] [facility] Comment on above: Performed By: #### 4 [id number] #### LAB [address] [address] Les Malone M.D. [id number] Hematocrit (Bld) [Volume fraction] 22.7 % Low 41.0-53.[address] [facility] Comment on above: Performed By: #### 4 [id number] #### LAB [address] [address] Les Malone M.D. [id number] Hemoglobin (Bld) [Mass/Vol] 7.3 g/dL Low 13.5-17.[address] [facility] Comment on above: Performed By: #### 4 [id number] #### LAB [address] [address] Les Malone M.D. [id number] MCH (RBC) [Entitic mass] 28.0 pg Normal 26.0-34.[address] [facility] Comment on above: Performed By: #### 4 [id number] #### LAB [address] [address] Les Malone M.D. [id number] MCV (RBC) [Entitic vol] 87.0 fL Normal 80.0-100.[address] [facility] Comment on above: Performed By: #### 4 [id number] #### LAB [address] [address] Les Malone M.D. [id number] MEAN CORPUSCULAR HEMOGLOBIN CONC 32.2 g/dL Normal 31.0-37.[address] [facility] Comment on above: Performed By: #### 4 [id number] #### LAB [address] [address] Les Malone M.D. [id number] Platelet mean volume (Bld) [Entitic vol] 10.4 fL Normal 9.4-12.[address] [facility] Comment on above: Performed By: #### 4 [id number] #### LAB [address] [address] Les Malone M.D. [id number] Platelets (Bld) [#/Vol] 184 10*3/uL Normal 150-[address] [facility] Comment on above: Performed By: #### 4 [id number] ####[facility] [address] [address] Les Malone M.D. [id number] RBC (Bld) [#/Vol] 2.61 10*6/uL Low 4.50-5.90 [facility] Comment on above: Performed By: #### 4 [id number] #### LAB [address] [address] Les Malone M.D. [id number] WBC (Bld) [#/Vol] 13.61 10*3/uL High 4.50-11.00 [facility] Comment on above: Performed By: #### 4 [id number] #### LAB [address] [address] Les Malone M.D. [id number] CHEM 7on 01-30-2024 Anion gap [Moles/Vol] 15 mmol/L Normal 10-20 [facility] Comment on above: Order Comment: [facility] has implemented the eGFR calculation approach that does not have a coefficient for race that conforms to the NKF-ASN Task Force Recommendations. Performed By: #### 4 6953 #### LAB [address] [address] Les Malone M.D. [id number] Chloride [Moles/Vol] 103 mmol/L Normal 98-108 [facility] Comment on above: Order Comment: [facility] has implemented the eGFR calculation approach that does not have a coefficient for race that conforms to the NKF-ASN Task Force Recommendations. Performed By: #### 4 6953 #### LAB [address] [place], [place] [address] Les Malone M.D. [id number] Creatinine [Mass/Vol] 0.65 mg/dL Normal 0.50-1.30 [facility] Comment on above: Order Comment: [facility] has implemented the eGFR calculation approach that does not have a coefficient for race that conforms to the NKF-ASN Task Force Recommendations. Performed By: #### 4 6953 #### LAB [address] [address] Les Malone M.D. [id number] EGFR 118 mL/min/1.73 m2 Normal >=60 [facility] Comment on above: Order Comment: [facility] has implemented the eGFR calculation approach that does not have a coefficient for race that conforms to the NKF-ASN Task Force Recommendations. Result Comment: Fanta mated GFR was calculated using the 2020 CKD-EPI creatinine equation. Performed By: #### 4 [id number] #### LAB [address] [address] Les Malone M.D. [id number] Glucose [Mass/Vol] 122 mg/dL High 65-99 [facility] Comment on above: Order Comment: [facility] has implemented the eGFR calculation approach that does not have a coefficient for race that conforms to the NKF-ASN Task Force Recommendations. Performed By: #### 4 [id number] #### LAB [address] [address] Les Malone M.D. [id number] HCO3 (Bld) [Moles/Vol] 24 mmol/L Normal 21-[address] [facility] Comment on above: Order Comment: [facility] has implemented the eGFR calculation approach that does not have a coefficient for race that conforms to the NKF-ASN Task Force Recommendations. Performed By: #### 4 6953 #### LAB [address] [address] Les Malone M.D. [id number] Potassium [Moles/Vol] 3.7 mmol/L Normal 3.5-5.1 [facility] Comment on above: Order Comment: [facility] has implemented the eGFR calculation approach that does not have a coefficient for race that conforms to the NKF-ASN Task Force Recommendations. Performed By: #### 4 6953 #### LAB [address] [place], [place] [address] Les Malone M.D. [id number] Sodium [Moles/Vol] 138 mmol/L Normal 135-145 [facility] Comment on above: Order Comment: [facility] has implemented the eGFR calculation approach that does not have a coefficient for race that conforms to the NKF-ASN Task Force Recommendations. Performed By: #### 4 [id number] #### LAB [address] [address] Les Malone M.D. [id number] Urea nitrogen [Mass/Vol] 30 mg/dL High 8-[address] [facility] Comment on above: Order Comment: [facility] has implemented the eGFR calculation approach that does not have a coefficient for race that conforms to the NKF-ASN Task Force Recommendations. Performed By: #### 4 [id number] #### LAB [address] [address] Les Malone M.D. [id number] Urea nitrogen/Creatinine [Mass ratio] 46.2 mg/mg High 10.0-20.[address] [facility] Comment on above: Order Comment: [facility] has implemented the eGFR calculation approach that does not have a coefficient for race that conforms to the NKF-ASN Task Force Recommendations. Performed By: #### 4 [id number] #### LAB [address] [place], [place] [address] Les Malone M.D. [id number] POC GLUCOSE [facility] 024 Glucose [Mass/Vol] 111 mg/dL High 65-99 [facility] Comment on above: Performed By: #### 4 6932 #### LAB [address] [id number] Les Malone M.D. [id number] Glucose [Mass/Vol] 131 mg/dL High [address] Comment on above: Performed By: #### 4 6932 #### LAB [address] [address] Les Malone M.D. [id number] Glucose [Mass/Vol] 116 mg/dL High [address] [place] [address] Comment on above: Performed By: #### 4 6932 #### LAB [address] [address] Les Malone M.D. [id number] Glucose [Mass/Vol] 141 mg/dL High [address] [place] [address] Comment on above: Performed By: #### 4 6932 #### LAB [address] [address] Les Malone M.D. [id number] CALCIUM, IONIZEDon CALCIUM IONIZED 4.6 mg/dL Normal 4.5-5.[address] [facility] Comment on above: Performed By: #### 4 5190 #### LAB [address] [address] Les Malone M.D. [id number] CBCon 01-29-2024 AUTO NRBC 0.0 % Normal [facility] Comment on above: Performed By: #### 4 [id number] #### LAB [address] [address] Les Malone M.D. [id number] AUTO NRBC ABS COUNT 0.00 K/mcL Normal 0.00-0.00 [facility] Comment on above: Performed By: #### 4 [id number] #### LAB [address] [address] Les Malone M.D. [id number] Erythrocyte distribution width (RBC) [Ratio] 16.9 % High 11.6-14.[address] [facility] Comment on above: Performed By: #### 4 [id number] #### LAB [address] [address] Les Malone M.D. [id number] Hematocrit (Bld) [Volume fraction] 28.9 % Low 41.0-53.[address] [facility] Comment on above: Performed By: #### 4 [id number] #### LAB [address] [address] Les Malone M.D. [id number] Hemoglobin (Bld) [Mass/Vol] 9.2 g/dL Low 13.5-17.[address] [facility] Comment on above: Performed By: #### 4 [id number] #### LAB [address] [address] Les Malone M.D. [id number] MCH (RBC) [Entitic mass] 28.0 pg Normal 26.0-34.[address] [facility] Comment on above: Performed By: #### 4 [id number] #### LAB [address] [address] Les Malone M.D. [id number] MCV (RBC) [Entitic vol] 88.1 fL Normal 80.0-100.[address] [facility] Comment on above: Performed By: #### 4 [id number] #### LAB [address] [address] Les Malone M.D. [id number] MEAN CORPUSCULAR HEMOGLOBIN CONC 31.8 g/dL Normal 31.0-37.[address] [facility] Comment on above: Performed By: #### 4 [id number] #### LAB [address] [address] Les Malone M.D. [id number] Platelet mean volume (Bld) [Entitic vol] 10.0 fL Normal 9.4-12.[address] [facility] Comment on above: Performed By: #### 4 [id number] #### LAB [address] [address] Les Malone M.D. [id number] Platelets (Bld) [#/Vol] 187 10*3/uL Normal 150-[address] [facility] Comment on above: Performed By: #### 4 [id number] #### LAB [address] [address] Les Malone M.D. [id number] RBC (Bld) [#/Vol] 3.28 10*6/uL Low 4.50-5.90 [facility] Comment on above: Performed By: #### 4 [id number] #### LAB [address] [address] Les Malone M.D. [id number] WBC (Bld) [#/Vol] 15.83 10*3/uL High 4.50-11.00 [facility] Comment on above: Performed By: #### 4 [id number] #### LAB [address] [address] Les Malone M.D. [id number] AUTO NRBC 0.0 % Normal [facility] Comment on above: Performed By: #### 4 [id number] #### LAB [address] [address] Les Malone M.D. [id number] AUTO NRBC ABS COUNT 0.00 K/mcL Normal 0.00-0.00 [facility] Comment on above: Performed By: #### 4 [id number] #### LAB [address] [address] Les Malone M.D. [id number] Erythrocyte distribution width (RBC) [Ratio] 16.5 % High 11.6-14.[address] [facility] Comment on above: Performed By: #### 4 [id number] #### LAB [address] [address] Les Malone M.D. [id number] Hematocrit (Bld) [Volume fraction] 34.1 % Low 41.0-53.[address] [facility] Comment on above: Performed By: #### 4 [id number] #### LAB [address] [address] Les Malone M.D. [id number] Hemoglobin (Bld) [Mass/Vol] 10.6 g/dL Low 13.5-17.[address] [facility] Comment on above: Performed By: #### 4 [id number] #### LAB [address] [address] Les Malone M.D. [id number] MCH (RBC) [Entitic mass] 27.6 pg Normal 26.0-34.[address] [facility] Comment on above: Performed By: #### 4 [id number] #### LAB [address] [address] Les Malone M.D. [id number] MCV (RBC) [Entitic vol] 88.8 fL Normal 80.0-100.[address] [facility] Comment on above: Performed By: #### 4 [id number] #### LAB [address] [address] Les Malone M.D. [id number] MEAN CORPUSCULAR HEMOGLOBIN CONC 31.1 g/dL Normal 31.0-37.[address] [facility] Comment on above: Performed By: #### 4 [id number] #### LAB [address] [address] Les Malone M.D. [id number] Platelet mean volume (Bld) [Entitic vol] 10.2 fL Normal 9.4-12.[address] [facility] Comment on above: Performed By: #### 4 [id number] #### LAB [address] [address] Les Malone M.D. [id number] Platelets (Bld) [#/Vol] 250 10*3/uL Normal 150-[address] [facility] Comment on above: Performed By: #### 4 [id number] #### LAB [address] [address] Les Malone M.D. [id number] RBC (Bld) [#/Vol] 3.84 10*6/uL Low 4.50-5.90 [facility] Comment on above: Performed By: #### 4 [id number] #### LAB [address] [address] Les Malone M.D. [id number] WBC (Bld) [#/Vol] 11.80 10*3/uL High 4.50-11.00 [facility] Comment on above: Performed By: #### 4 [id number] #### LAB [address] [place], [place] [address] Les Malone M.D. [id number] CHEM 701-29-2024 Anion gap [Moles/Vol] 16 mmol/L Normal 10-20 [facility] Comment on above: Order Comment: [facility] has implemented the eGFR calculation approach that does not have a coefficient for race that conforms to the NKF-ASN Task Force Recommendations. Performed By: #### 4 6953 #### LAB [address] [place], [place] [address] Les Malone M.D. [id number] Chloride [Moles/Vol] 99 mmol/L Normal 98-108 [facility] Comment on above: Order Comment: [facility] has implemented the eGFR calculation approach that does not have a coefficient for race that conforms to the NKF-ASN Task Force Recommendations. Performed By: #### 4 6953 #### LAB [address] [place], [place] [address] Les Malone M.D. [id number] Creatinine [Mass/Vol] 0.51 mg/dL Normal 0.50-1.30 [facility] Comment on above: Order Comment: [facility] has implemented the eGFR calculation approach that does not have a coefficient for race that conforms to the NKF-ASN Task Force Recommendations. Performed By: #### 4 6953 #### LAB [address] [place], [place] [address] Les Malone M.D. [id number] EGFR 127 mL/min/1.73 m2 Normal >=60 [facility] Comment on above: Order Comment: [facility] has implemented the eGFR calculation approach that does not have a coefficient for race that conforms to the NKF-ASN Task Force Recommendations. Result Comment: Fanta mated GFR was calculated using the 2020 CKD-EPI creatinine equation. Performed By: #### 4 [id number] #### LAB [address] [address] Les Malone M.D. [id number] Glucose [Mass/Vol] 113 mg/dL High 65-99 [facility] Comment on above: Order Comment: [facility] has implemented the eGFR calculation approach that does not have a coefficient for race that conforms to the NKF-ASN Task Force Recommendations. Performed By: #### 4 6953 ####[facility] [address] [address] Les Malone M.D. [id number] HCO3 (Bld) [Moles/Vol] 27 mmol/L Normal 21-[address] [facility] Comment on above: Order Comment: [facility] has implemented the eGFR calculation approach that does not have a coefficient for race that conforms to the NKF-ASN Task Force Recommendations. Performed By: #### 4 6953 ####[facility] [address] [address] Les Malone M.D. [id number] Potassium [Moles/Vol] 4.2 mmol/L Normal 3.5-5.1 [facility] Comment on above: Order Comment: [facility] has implemented the eGFR calculation approach that does not have a coefficient for race that conforms to the NKF-ASN Task Force Recommendations. Performed By: #### 4 6953 ####[facility] [address] [address] Les Malone M.D. [id number] Sodium [Moles/Vol] 138 mmol/L Normal 135-145 [facility] Comment on above: Order Comment: [facility] has implemented the eGFR calculation approach that does not have a coefficient for race that conforms to the NKF-ASN Task Force Recommendations. Performed By: #### 4 6953 ####[facility] [address] [address] Les Malone M.D. [id number] Urea nitrogen [Mass/Vol] 29 mg/dL High 8-[address] [facility] Comment on above: Order Comment: [facility] has implemented the eGFR calculation approach that does not have a coefficient for race that conforms to the NKF-ASN Task Force Recommendations. Performed By: #### 4 6953 #### LAB [address] [place], [place] [address] Les Malone M.D. [id number] Urea nitrogen/Creatinine [Mass ratio] 56.9 mg/mg High 10.0-20.[address] [facility] Comment on above: Order Comment: [facility] has implemented the eGFR calculation approach that does not have a coefficient for race that conforms to the NKF-ASN Task Force Recommendations. Performed By: #### 4 6953 #### LAB [address] [id number] Les Malone M.D. [id number] COMPREHENSIVE METABOLIC PANE [facility] 01-29-2024 Albumin [Mass/Vol] 3.4 g/dL Normal 3.2-5.2 [facility] Comment on above: Order Comment: [facility] has implemented the eGFR calculation approach that does not have a coefficient for race that conforms to the NKF-ASN Task Force Recommendations. Performed By: #### 4 6126 #### LAB [address] [address] Les Malone M.D. [id number] ALP [Catalytic activity/Vol] 71 U/L Normal 40-[address] [facility] Comment on above: Order Comment: [facility] has implemented the eGFR calculation approach that does not have a coefficient for race that conforms to the NKF-ASN Task Force Recommendations. Performed By: #### 4 6126 #### LAB [address] [address] Les Malone M.D. [id number] ALT [Catalytic activity/Vol] 44 U/L Normal 0-50 U/L [facility] Comment on above: Order Comment: [facility] has implemented the eGFR calculation approach that does not have a coefficient for race that conforms to the NKF-ASN Task Force Recommendations. Performed By: #### 4 6126 #### LAB [address] [place], [place] [address] Les Malone M.D. [id number] Anion gap [Moles/Vol] 16 mmol/L Normal 10-20 [facility] Comment on above: Order Comment: [facility] has implemented the eGFR calculation approach that does not have a coefficient for race that conforms to the NKF-ASN Task Force Recommendations. Performed By: #### 4 6126 #### LAB [address] [address] Les Malone M.D. [id number] AST [Catalytic activity/Vol] 37 U/L Normal 0-50 U/L [facility] Comment on above: Order Comment: [facility] has implemented the eGFR calculation approach that does not have a coefficient for race that conforms to the NKF-ASN Task Force Recommendations. Performed By: #### 4 6126 #### LAB [address] [address] Les Malone M.D. [id number] Bilirubin [Mass/Vol] 1.2 mg/dL Normal 0.0-1.3 [facility] Comment on above: Order Comment: [facility] has implemented the eGFR calculation approach that does not have a coefficient for race that conforms to the NKF-ASN Task Force Recommendations. Performed By: #### 4 6126 #### LAB [address] [address] Les Malone M.D. [id number] Calcium [Mass/Vol] 8.5 mg/dL Normal 8.4-10.2 [facility] Comment on above: Order Comment: [facility] has implemented the eGFR calculation approach that does not have a coefficient for race that conforms to the NKF-ASN Task Force Recommendations. Performed By: #### 4 6126 ####[facility] [address] [address] Les Malone M.D. [id number] Chloride [Moles/Vol] 103 mmol/L Normal 98-108 [facility] Comment on above: Order Comment: [facility] has implemented the eGFR calculation approach that does not have a coefficient for race that conforms to the NKF-ASN Task Force Recommendations. Performed By: #### 4 6126 #### LAB [address] [address] Les Malone M.D. [id number] Creatinine [Mass/Vol] 0.87 mg/dL Normal 0.50-1.30 [facility] Comment on above: Order Comment: [facility] has implemented the eGFR calculation approach that does not have a coefficient for race that conforms to the NKF-ASN Task Force Recommendations. Performed By: #### 4 6126 #### LAB [address] [address] Les Malone M.D. [id number] EGFR 108 mL/min/1.73 m2 Normal >=60 [facility] Comment on above: Order Comment: [facility] has implemented the eGFR calculation approach that does not have a coefficient for race that conforms to the NKF-ASN Task Force Recommendations. Result Comment: Fanta mated GFR was calculated using the 2020 CKD-EPI creatinine equation. Performed By: #### 4 [id number] #### LAB [address] [address] Les Malone M.D. [id number] Glucose [Mass/Vol] 101 mg/dL High 65-99 [facility] Comment on above: Order Comment: [facility] has implemented the eGFR calculation approach that does not have a coefficient for race that conforms to the NKF-ASN Task Force Recommendations. Performed By: #### 4 6126 #### LAB [address] [address] Les Malone M.D. [id number] HCO3 (Bld) [Moles/Vol] 22 mmol/L Normal 21-[address] [facility] Comment on above: Order Comment: [facility] has implemented the eGFR calculation approach that does not have a coefficient for race that conforms to the NKF-ASN Task Force Recommendations. Performed By: #### 4 6126 ####[facility] [address] [address] Les Malone M.D. [id number] Potassium [Moles/Vol] 3.7 mmol/L Normal 3.5-5.1 [facility] Comment on above: Order Comment: [facility] has implemented the eGFR calculation approach that does not have a coefficient for race that conforms to the NKF-ASN Task Force Recommendations. Performed By: #### 4 6126 #### LAB [address] [address] Les Malone M.D. [id number] Protein [Mass/Vol] 5.1 g/dL Low 6.0-8.0 [facility] Comment on above: Order Comment: [facility] has implemented the eGFR calculation approach that does not have a coefficient for race that conforms to the NKF-ASN Task Force Recommendations. Performed By: #### 4 6126 #### LAB [address] [address] Les Malone M.D. [id number] Sodium [Moles/Vol] 137 mmol/L Normal 135-145 [facility] Comment on above: Order Comment: [facility] has implemented the eGFR calculation approach that does not have a coefficient for race that conforms to the NKF-ASN Task Force Recommendations. Performed By: #### 4 6126 #### LAB [address] [address] Les Malone M.D. [id number] Urea nitrogen [Mass/Vol] 29 mg/dL High 8-[address] [facility] Comment on above: Order Comment: [facility] has implemented the eGFR calculation approach that does not have a coefficient for race that conforms to the NKF-ASN Task Force Recommendations. Performed By: #### 4 6126 #### LAB [address] [address] Les Malone M.D. [id number] Urea nitrogen/Creatinine [Mass ratio] 33.3 mg/mg High 10.0-20.[address] [facility] Comment on above: Order Comment: [facility] has implemented the eGFR calculation approach that does not have a coefficient for race that conforms to the NKF-ASN Task Force Recommendations. Performed By: #### 4 6126 #### LAB [address] [address] Les Malone M.D. [id number] MAGNESIUM LEVELon 01-29-2024 Magnesium [Mass/Vol] 2.0 mg/dL Normal 1.6-2.4 [facility] Comment on above: Performed By: #### 4 6109 ####[facility] [address] [address] Les Malone M.D. [id number] OP NOTEon 01-29-2024 OP NOTE Normal [facility] POC ABG SURG - RALSon 2023 BASE EXCESS, ARTERIAL ISTAT -4 Low -2-[address] [facility] Comment on above: Performed By: #### 4 [id number] ####[facility] [address] [id number] Les Malone M.D. [id number] Glucose [Mass/Vol] 97 mg/dL Normal 65-99 [facility] Comment on above: Performed By: #### 4 8737 ####[facility] [address] [address] Les Malone M.D. [id number] HCO3 (Bld) [Moles/Vol] 20.6 mmol/L Low 22.0-26.[address] [facility] Comment on above: Performed By: #### 4 8737 ####[facility] [address] [address] Les Malone M.D. [id number] Hematocrit (Bld) [Volume fraction] 25 % Low 41-[address] [facility] Comment on above: Performed By: #### 4 8737 ####[facility] [address] [address] Les Malone M.D. [id number] Hemoglobin (Bld) [Mass/Vol] 8.5 g/dL Low 13.5-17.[address] [facility] Comment on above: Performed By: #### 4 8737 ####[facility] [address] [address] Les Malone M.D. [id number] Oxygen saturation in Blood 100.0 % High 92.0-99.[address] [facility] Comment on above: Performed By: #### 4 8737 ####[facility] [address] [address] Les Malone M.D. [id number] PCO2 ARTERIAL 34.3 mm Hg Low 35.0-45.[address] [facility] Comment on above: Performed By: #### 4 8737 ####[facility] [address] [address] Les Malone M.D. [id number] PH ARTERIAL 7.39 Normal 7.35-7.[address] [facility] Comment on above: Performed By: #### 4 8737 ####[facility] [address] [address] Les Malone M.D. [id number] PO2 ARTERIAL 199 mm Hg High 80-[address] [facility] Comment on above: Performed By: #### 4 8737 ####[facility] [address] [address] Les Malone M.D. [id number] POC IONIZED CALCIUM 4.1 mg/dL Low 4.5-5.3 [facility] Comment on above: Performed By: #### 4 8737 ####[facility] [address] [address] Les Malone M.D. [id number] Potassium [Moles/Vol] 3.7 mmol/L Normal 3.5-5.1 [facility] Comment on above: Performed By: #### 4 8737 #### LAB [address] [address] Les Malone M.D. [id number] Sodium [Moles/Vol] 139 mmol/L Normal 135-145 [facility] Comment on above: Performed By: #### 4 8737 ####[facility] [address] [address] Les Malone M.D. [id number] BASE EXCESS, ARTERIAL ISTAT -2 Normal -2-[address] [facility] Comment on above: Performed By: #### 4 8728 ####[facility] [address] [address] Les Malone M.D. [id number] Glucose [Mass/Vol] 105 mg/dL High 65-99 [facility] Comment on above: Performed By: #### 4 8737 ####[facility] [address] [address] Les Malone M.D. [id number] HCO3 (Bld) [Moles/Vol] 21.4 mmol/L Low 22.0-26.[address] [facility] Comment on above: Performed By: #### 4 8737 ####[facility] [address] [address] Les Malone M.D. [id number] Hematocrit (Bld) [Volume fraction] 26 % Low 41-[address] [facility] Comment on above: Performed By: #### 4 8737 ####[facility] [address] [address] Les Malone M.D. [id number] Hemoglobin (Bld) [Mass/Vol] 8.8 g/dL Low 13.5-17.[address] [facility] Comment on above: Performed By: #### 4 8737 ####[facility] [address] [address] Les Malone M.D. [id number] Oxygen saturation in Blood 100.0 % High 92.0-99.[address] [facility] Comment on above: Performed By: #### 4 8737 ####[facility] [address] [address] Les Malone M.D. [id number] PCO2 ARTERIAL 31.5 mm Hg Low 35.0-45.[address] [facility] Comment on above: Performed By: #### 4 8737 ####[facility] [address] [address] Les Malone M.D. [id number] PH ARTERIAL 7.44 Normal 7.35-7.[address] [facility] Comment on above: Performed By: #### 4 8737 ####[facility] [address] [address] Les Malone M.D. [id number] PO2 ARTERIAL 205 mm Hg High 80-[address] [facility] Comment on above: Performed By: #### 4 8737 ####[facility] [address] [address] Les Malone M.D. [id number] POC IONIZED CALCIUM 4.2 mg/dL Low 4.5-5.3 [facility] Comment on above: Performed By: #### 4 8737 ####[facility] [address] [address] Les Malone M.D. [id number] Potassium [Moles/Vol] 3.7 mmol/L Normal 3.5-5.1 [facility] Comment on above: Performed By: #### 4 8737 ####[facility] [address] [address] Les Malone M.D. [id number] Sodium [Moles/Vol] 139 mmol/L Normal 135-145 [facility] Comment on above: Performed By: #### 4 8737 ####[facility] [address] [address] Les Malone M.D. [id number] BASE EXCESS, ARTERIAL ISTAT -1 Normal -2-[address] [facility] Comment on above: Performed By: #### 4 8737 #### LAB [address] [address] Les Malone M.D. [id number] Glucose [Mass/Vol] 113 mg/dL High 65-99 [facility] Comment on above: Performed By: #### 4 8737 ####[facility] [address] [address] Les Malone M.D. [id number] HCO3 (Bld) [Moles/Vol] 23.6 mmol/L Normal 22.0-26.[address] [facility] Comment on above: Performed By: #### 4 8737 ####[facility] [address] [address] Les Malone M.D. [id number] Hematocrit (Bld) [Volume fraction] 30 % Low 41-[address] [facility] Comment on above: Performed By: #### 4 8737 ####[facility] [address] [address] Les Malone M.D. [id number] Hemoglobin (Bld) [Mass/Vol] 10.2 g/dL Low 13.5-17.[address] [facility] Comment on above: Performed By: #### 4 8737 ####[facility] [address] [address] Les Malone M.D. [id number] Oxygen saturation in Blood 100.0 % High 92.0-99.[address] [facility] Comment on above: Performed By: #### 4 8737 ####[facility] [address] [address] Les Malone M.D. [id number] PCO2 ARTERIAL 40.1 mm Hg Normal 35.0-45.[address] [facility] Comment on above: Performed By: #### 4 8737 ####[facility] [address] [address] Les Malone M.D. [id number] PH ARTERIAL 7.38 Normal 7.35-7.[address] [facility] Comment on above: Performed By: #### 4 8737 ####[facility] [address] [address] Les Malone M.D. [id number] PO2 ARTERIAL 314 mm Hg High 80-[address] [facility] Comment on above: Performed By: #### 4 8737 ####[facility] [address] [address] Les Malone M.D. [id number] POC IONIZED CALCIUM 4.3 mg/dL Low 4.5-5.3 [facility] Comment on above: Performed By: #### 4 8737 ####[facility] [address] [address] Les Malone M.D. [id number] Potassium [Moles/Vol] 3.8 mmol/L Normal 3.5-5.1 [facility] Comment on above: Performed By: #### 4 8737 #### LAB [address] [address] Les Malone M.D. [id number] Sodium [Moles/Vol] 138 mmol/L Normal 135-145 [facility] Comment on above: Performed By: #### 4 8737 ####[facility] [address] [address] Les Malone M.D. [id number] BASE EXCESS, ARTERIAL ISTAT 0 Normal -2-[address] [facility] Comment on above: Performed By: #### 4 8737 ####[facility] [address] [address] Les Malone M.D. [id number] Glucose [Mass/Vol] 119 mg/dL High 65-99 [facility] Comment on above: Performed By: #### 4 8737 #### LAB [address] [address] Les Malone M.D. [id number] HCO3 (Bld) [Moles/Vol] 25.5 mmol/L Normal 22.0-26.[address] [facility] Comment on above: Performed By: #### 4 8737 ####[facility] [address] [address] Les Malone M.D. [id number] Hematocrit (Bld) [Volume fraction] 27 % Low 41-[address] [facility] Comment on above: Performed By: #### 4 8737 ####[facility] [address] [address] Les Malone M.D. [id number] Hemoglobin (Bld) [Mass/Vol] 9.2 g/dL Low 13.5-17.[address] [facility] Comment on above: Performed By: #### 4 8737 ####[facility] [address] [address] Les Malone M.D. [id number] Oxygen saturation in Blood 100.0 % High 92.0-99.[address] [facility] Comment on above: Performed By: #### 4 8737 ####[facility] [address] [address] Les Malone M.D. [id number] PCO2 ARTERIAL 44.3 mm Hg Normal 35.0-45.[address] [facility] Comment on above: Performed By: #### 4 8737 ####[facility] [address] [address] Les Malone M.D. [id number] PH ARTERIAL 7.37 Normal 7.35-7.[address] [facility] Comment on above: Performed By: #### 4 8737 ####[facility] [address] [address] Les Malone M.D. [id number] PO2 ARTERIAL 329 mm Hg High 80-[address] [facility] Comment on above: Performed By: #### 4 8737 ####[facility] [address] [address] Les Malone M.D. [id number] POC IONIZED CALCIUM 4.4 mg/dL Low 4.5-5.3 [facility] Comment on above: Performed By: #### 4 8737 ####[facility] [address] [address] Les Malone M.D. [id number] Potassium [Moles/Vol] 3.6 mmol/L Normal 3.5-5.1 [facility] Comment on above: Performed By: #### 4 8737 ####[facility] [address] [address] Les Malone M.D. [id number] Sodium [Moles/Vol] 138 mmol/L Normal 135-145 [facility] Comment on above: Performed By: #### 4 8737 ####[facility] [address] [address] Les Malone M.D. [id number] BASE EXCESS, ARTERIAL ISTAT -2 Normal -2-[address] [facility] Comment on above: Performed By: #### 4 8737 ####[facility] [address] [address] Les Malone M.D. [id number] Glucose [Mass/Vol] 126 mg/dL High 65-99 [facility] Comment on above: Performed By: #### 4 8737 ####[facility] [address] [address] Les Malone M.D. [id number] HCO3 (Bld) [Moles/Vol] 23.1 mmol/L Normal 22.0-26.[address] [facility] Comment on above: Performed By: #### 4 8737 ####[facility] [address] [address] Les Malone M.D. [id number] Hematocrit (Bld) [Volume fraction] 28 % Low 41-[address] [facility] Comment on above: Performed By: #### 4 8737 ####[facility] [address] [address] Les Malone M.D. [id number] Hemoglobin (Bld) [Mass/Vol] 9.5 g/dL Low 13.5-17.[address] [facility] Comment on above: Performed By: #### 4 8737 ####[facility] [address] [address] Les Malone M.D. [id number] Oxygen saturation in Blood 100.0 % High 92.0-99.[address] [facility] Comment on above: Performed By: #### 4 8737 #### LAB [address] [address] Les Malone M.D. [id number] PCO2 ARTERIAL 37.6 mm Hg Normal 35.0-45.[address] [facility] Comment on above: Performed By: #### 4 8737 ####[facility] [address] [address] Les Malone M.D. [id number] PH ARTERIAL 7.40 Normal 7.35-7.[address] [facility] Comment on above: Performed By: #### 4 8737 ####[facility] [address] [address] Les Malone M.D. [id number] PO2 ARTERIAL 421 mm Hg High 80-[address] [facility] Comment on above: Performed By: #### 4 8737 ####[facility] [address] [address] Les Malone M.D. [id number] POC IONIZED CALCIUM 4.2 mg/dL Low 4.5-5.3 [facility] Comment on above: Performed By: #### 4 8737 ####[facility] [address] [address] Les Malone M.D. [id number] Potassium [Moles/Vol] 3.5 mmol/L Normal 3.5-5.1 [facility] Comment on above: Performed By: #### 4 8737 ####[facility] [address] [address] Les Malone M.D. [id number] Sodium [Moles/Vol] 139 mmol/L Normal 135-145 [facility] Comment on above: Performed By: #### 4 8737 ####[facility] [address] [address] Les Malone M.D. [id number] BASE EXCESS, ARTERIAL ISTAT 2 Normal -2-[address] [facility] Comment on above: Performed By: #### 4 8737 ####[facility] [address] [address] Les Malone M.D. [id number] Glucose [Mass/Vol] 140 mg/dL High 65-99 [facility] Comment on above: Performed By: #### 4 8737 ####[facility] [address] [address] Les Malone M.D. [id number] HCO3 (Bld) [Moles/Vol] 26.2 mmol/L High 22.0-26.[address] [facility] Comment on above: Performed By: #### 4 8737 ####[facility] [address] [address] Les Malone M.D. [id number] Hematocrit (Bld) [Volume fraction] 34 % Low 41-[address] [facility] Comment on above: Performed By: #### 4 8737 #### LAB [address] [address] Les Malone M.D. [id number] Hemoglobin (Bld) [Mass/Vol] 11.6 g/dL Low 13.5-17.[address] [facility] Comment on above: Performed By: #### 4 8737 ####[facility] [address] [address] Les Malone M.D. [id number] Oxygen saturation in Blood 100.0 % High 92.0-99.[address] [facility] Comment on above: Performed By: #### 4 8737 #### LAB [address] [address] Les Malone M.D. [id number] PCO2 ARTERIAL 38.9 mm Hg Normal 35.0-45.[address] [facility] Comment on above: Performed By: #### 4 8737 #### LAB [address] [address] Les Malone M.D. [id number] PH ARTERIAL 7.44 Normal 7.35-7.[address] [facility] Comment on above: Performed By: #### 4 8737 #### LAB [address] [address] Les Malone M.D. [id number] PO2 ARTERIAL 338 mm Hg High 80-[address] [facility] Comment on above: Performed By: #### 4 8737 #### LAB [address] [address] Les Malone M.D. [id number] POC IONIZED CALCIUM 4.5 mg/dL Normal 4.5-5.3 [facility] Comment on above: Performed By: #### 4 8737 ####[facility] [address] [address] Les Malone M.D. [id number] Potassium [Moles/Vol] 3.9 mmol/L Normal 3.5-5.1 [facility] Comment on above: Performed By: #### 4 8737 ####[facility] [address] [address] Les Malone M.D. [id number] Sodium [Moles/Vol] 137 mmol/L Normal 135-145 [facility] Comment on above: Performed By: #### 4 8737 ####[facility] [address] [address] Les Malone M.D. [id number] BASE EXCESS, ARTERIAL ISTAT 3 High -2-[address] [facility] Comment on above: Performed By: #### 4 8737 ####[facility] [address] [address] Les Malone M.D. [id number] Glucose [Mass/Vol] 137 mg/dL High 65-99 [facility] Comment on above: Performed By: #### 4 8737 ####[facility] [address] [address] Les Malone M.D. [id number] HCO3 (Bld) [Moles/Vol] 29.2 mmol/L High 22.0-26.[address] [facility] Comment on above: Performed By: #### 4 8737 ####[facility] [address] [address] Les Malone M.D. [id number] Hematocrit (Bld) [Volume fraction] 35 % Low 41-[address] [facility] Comment on above: Performed By: #### 4 8737 ####[facility] [address] [address] Les Malone M.D. [id number] Hemoglobin (Bld) [Mass/Vol] 11.9 g/dL Low 13.5-17.[address] [facility] Comment on above: Performed By: #### 4 8737 ####[facility] [address] [address] Les Malone M.D. [id number] Oxygen saturation in Blood 100.0 % High 92.0-99.[address] [facility] Comment on above: Performed By: #### 4 8780 ####[facility] [address] [address] Les Malone M.D. [id number] PCO2 ARTERIAL 51.4 mm Hg High 35.0-45.[address] [facility] Comment on above: Performed By: #### 4 8737 ####[facility] [address] [address] Les Malone M.D. [id number] PH ARTERIAL 7.36 Normal 7.35-7.[address] [facility] Comment on above: Performed By: #### 4 8737 ####[facility] [address] [address] Les Malone M.D. [id number] PO2 ARTERIAL 420 mm Hg High 80-[address] [facility] Comment on above: Performed By: #### 4 8737 ####[facility] [address] [address] Les Malone M.D. [id number] POC IONIZED CALCIUM 4.7 mg/dL Normal 4.5-5.3 [facility] Comment on above: Performed By: #### 4 8737 ####[facility] [address] [address] Les Malone M.D. [id number] Potassium [Moles/Vol] 4.1 mmol/L Normal 3.5-5.1 [facility] Comment on above: Performed By: #### 4 8737 ####[facility] [address] [address] Les Malone M.D. [id number] Sodium [Moles/Vol] 138 mmol/L Normal 135-145 [facility] Comment on above: Performed By: #### 4 8737 ####[facility] [address] [address] Les Malone M.D. [id number] POC ARTERIAL BLOOD GAS PANEL -BRENDA Mcmahon 01-29-2024 [id number] 60.0 mm Hg Normal [facility] Comment on above: Performed By: #### 4 8716 ####[facility] [address] [address] Les Malone M.D. [id number] BASE EXCESS, ARTERIAL 0.2 Normal -2.0-2.0 [facility] Comment on above: Performed By: #### 4 8716 ####[facility] [address] [address] Les Malone M.D. [id number] FIO2 40 [facility] Comment on above: Performed By: #### 4 8716 #### LAB [address] [address] Les Malone M.D. [id number] HCO3 (Bld) [Moles/Vol] 24.8 mmol/L Normal 22.0-26.[address] [facility] Comment on above: Performed By: #### 4 8716 #### LAB [address] [address] Les Malone M.D. [id number] Hematocrit (Bld) [Volume fraction] 28.7 % Low 41.0-53.[address] [facility] Comment on above: Performed By: #### 4 8716 ####[facility] [address] [address] Les Malone M.D. [id number] Hemoglobin (Bld) [Mass/Vol] 9.4 g/dL Low 13.5-17.[address] [facility] Comment on above: Performed By: #### 4 8716 #### LAB [address] [address] Les Malone M.D. [id number] Oxygen saturation in Blood 99.8 % High 92.0-99.[address] [facility] Comment on above: Performed By: #### 4 8716 ####[facility] [address] [address] Les Malone M.D. [id number] PCO2 ARTERIAL 39.1 mm Hg Normal 35.0-45.[address] [facility] Comment on above: Performed By: #### 4 8716 ####[facility] [address] [address] Les Malone M.D. [id number] PEEP RAD 5 [facility] Comment on above: Performed By: #### 4 8716 #### LAB [address] [address] Les Malone M.D. [id number] PH ARTERIAL 7.41 Normal 7.35-7.[address] [facility] Comment on above: Performed By: #### 4 8716 #### LAB [address] [address] Les Malone M.D. [id number] PO2 ARTERIAL 168 mm Hg High 80-[address] [facility] Comment on above: Performed By: #### 4 8716 #### LAB [address] [address] Les Malone M.D. [id number] RESP RATE RAD 20 [facility] Comment on above: Performed By: #### 4 8716 #### LAB [address] [address] Les Malone M.D. [id number] SPECIMEN SOURCE RADIANCE Not specified [facility] Comment on above: Performed By: #### 4 8716 #### LAB [address] [address] Les Malone M.D. [id number] TIDAL VOLUME RAD 480 [facility] Comment on above: Performed By: #### 4 8716 ####[facility] [address] [address] Les Malone M.D. [id number] POC GLUCOSE [facility] 024 Glucose [Mass/Vol] 130 mg/dL [address] Comment on above: Performed By: #### 4 6932 #### LAB [address] [address] Les Malone M.D. [id number] Glucose [Mass/Vol] 121 mg/dL [address] Comment on above: Performed By: #### 4 6932 #### LAB [address] [address] Les Malone M.D. [id number] Glucose [Mass/Vol] 103 mg/dL High 65-[address] [place] [address] Comment on above: Performed By: #### 4 6932 ####[facility] [address] [address] Les Malone M.D. [id number] Glucose [Mass/Vol] 102 mg/dL High [address] [place] [address] Comment on above: Performed By: #### 4 6932 ####[facility] [address] [address] Les Malone M.D. [id number] Glucose [Mass/Vol] 97 mg/dL Normal [address] [place] [address] Comment on above: Performed By: #### 4 6932 #### LAB [address] [address] Les Malone M.D. [id number] XR CHEST PA/APon 01-29-2024 XR CHEST PA/AP [facility] Comment on above: Order Comment: Injur y/Trauma or Illness?:Illness/OtherHow long have you had these symptoms (acute/chronic)?:AcuteReason for exam?:post op evalHistory of cancer?:uSurgeries, chemotherapy, or radiation?:uType of Exam?:Subsequent/Follow-upAdditional signs and symptoms?:. XR CT CERVICAL SPINE WITHOUT CONTRASTon 01-29-[address] CERVICAL SPINE WITHOUT CONTRAST [facility] Comment on above: Order Comment: Injur y/Trauma or Illness?:Injury/TraumaHow long have you had these symptoms (acute/chronic)?:UnknownReason for exam?:posterior fusionType of Exam?:Subsequent/Follow-upMechanism of injury?:motorcycle accidentFluoro time in minutes:0.2112.52secondsFluoro dose in mGy?:19.2219.22CTDlvol XR OR C-SPINE 2-3 VIEWSon XR OR C-SPINE 2-3 VIEWS [facility] Comment on above: Order Comment: Injur y/Trauma or Illness?:Injury/TraumaHow long have you had these symptoms (acute/chronic)?:AcuteReason for exam?:POSTERIOR FUSIONType of Exam?:Subsequent/Follow-upMechanism of injury?:MOTORCYCLE ACCIDENTFluoro time in minutes:0.6438.3secondsFluoro dose in mGy?:13.3 CBCon 01-28-2024 AUTO NRBC 0.0 % Normal [facility] Comment on above: Performed By: #### 4 [id number] #### LAB [address] [address] Les Malone M.D. [id number] AUTO NRBC ABS COUNT 0.00 K/mcL Normal 0.00-0.00 [facility] Comment on above: Performed By: #### 4 [id number] #### LAB [address] [address] Les Malone M.D. [id number] Erythrocyte distribution width (RBC) [Ratio] 16.7 % High 11.6-14.[address] [facility] Comment on above: Performed By: #### 4 5218 #### LAB [address] [address] Les Malone M.D. [id number] Hematocrit (Bld) [Volume fraction] 32.5 % Low 41.0-53.[address] [facility] Comment on above: Performed By: #### 4 5218 #### LAB [address] [address] Les Malone M.D. [id number] Hemoglobin (Bld) [Mass/Vol] 10.1 g/dL Low 13.5-17.[address] [facility] Comment on above: Performed By: #### 4 5218 #### LAB [address] [address] Les Malone M.D. [id number] MCH (RBC) [Entitic mass] 28.3 pg Normal 26.0-34.[address] [facility] Comment on above: Performed By: #### 4 [id number] #### LAB [address] [address] Les Malone M.D. [id number] MCV (RBC) [Entitic vol] 91.0 fL Normal 80.0-100.[address] [facility] Comment on above: Performed By: #### 4 [id number] #### LAB [address] [address] Les Malone M.D. [id number] MEAN CORPUSCULAR HEMOGLOBIN CONC 31.1 g/dL Normal 31.0-37.[address] [facility] Comment on above: Performed By: #### 4 [id number] #### LAB [address] [address] Les Malone M.D. [id number] Platelet mean volume (Bld) [Entitic vol] 10.0 fL Normal 9.4-12.[address] [facility] Comment on above: Performed By: #### 4 [id number] #### LAB [address] [address] Les Malone M.D. [id number] Platelets (Bld) [#/Vol] 236 10*3/uL Normal 150-[address] [facility] Comment on above: Performed By: #### 4 [id number] #### LAB [address] [address] Les Malone M.D. [id number] RBC (Bld) [#/Vol] 3.57 10*6/uL Low 4.50-5.90 [facility] Comment on above: Performed By: #### 4 5218 ####[facility] [address] [address] Les Malone M.D. [id number] WBC (Bld) [#/Vol] 10.95 10*3/uL Normal 4.50-11.00 [facility] Comment on above: Performed By: #### 4 [id number] #### LAB [address] [address] Les Malone M.D. [id number] CHEM 701-28-2024 Anion gap [Moles/Vol] 14 mmol/L Normal 10-20 [facility] Comment on above: Order Comment: [facility] has implemented the eGFR calculation approach that does not have a coefficient for race that conforms to the NKF-ASN Task Force Recommendations. Performed By: #### 4 6953 ####[facility] [address] [place], [place] [address] Les Malone M.D. [id number] Chloride [Moles/Vol] 98 mmol/L Normal 98-108 [facility] Comment on above: Order Comment: [facility] has implemented the eGFR calculation approach that does not have a coefficient for race that conforms to the NKF-ASN Task Force Recommendations. Performed By: #### 4 [id number] #### LAB [address] [place] [id number] Les Malone M.D. [id number] Creatinine [Mass/Vol] 0.44 mg/dL Low 0.50-1.30 [facility] Comment on above: Order Comment: [facility] has implemented the eGFR calculation approach that does not have a coefficient for race that conforms to the NKF-ASN Task Force Recommendations. Performed By: #### 4 6953 #### LAB [address] [address] Les Malone M.D. [id number] EGFR 133 mL/min/1.73 m2 Normal >=60 [facility] Comment on above: Order Comment: [facility] has implemented the eGFR calculation approach that does not have a coefficient for race that conforms to the NKF-ASN Task Force Recommendations. Result Comment: Fanta mated GFR was calculated using the 2020 CKD-EPI creatinine equation. Performed By: #### 4 [id number] #### LAB [address] [id number] Les Malone M.D. [id number] Glucose [Mass/Vol] 113 mg/dL High 65-99 [facility] Comment on above: Order Comment: [facility] has implemented the eGFR calculation approach that does not have a coefficient for race that conforms to the NKF-ASN Task Force Recommendations. Performed By: #### 4 6953 ####[facility] [address] [place], [place] [address] Les Malone M.D. [id number] HCO3 (Bld) [Moles/Vol] 27 mmol/L Normal 21-[address] [facility] Comment on above: Order Comment: [facility] has implemented the eGFR calculation approach that does not have a coefficient for race that conforms to the NKF-ASN Task Force Recommendations. Performed By: #### 4 [id number] #### LAB [address] [id number] Les Malone M.D. [id number] Potassium [Moles/Vol] 4.0 mmol/L Normal 3.5-5.1 [facility] Comment on above: Order Comment: [facility] has implemented the eGFR calculation approach that does not have a coefficient for race that conforms to the NKF-ASN Task Force Recommendations. Performed By: #### 4 [id number] #### LAB [address] [address] Les Malone M.D. [id number] Sodium [Moles/Vol] 135 mmol/L Normal 135-145 [facility] Comment on above: Order Comment: [facility] has implemented the eGFR calculation approach that does not have a coefficient for race that conforms to the NKF-ASN Task Force Recommendations. Performed By: #### 4 [id number] #### LAB [address] [address] Les Malone M.D. [id number] Urea nitrogen [Mass/Vol] 32 mg/dL High 8-[address] [facility] Comment on above: Order Comment: [facility] has implemented the eGFR calculation approach that does not have a coefficient for race that conforms to the NKF-ASN Task Force Recommendations. Performed By: #### 4 6953 ####[facility] [address] [place] [address] Les Malone M.D. [id number] Urea nitrogen/Creatinine [Mass ratio] 72.7 mg/mg High 10.0-20.[address] [facility] Comment on above: Order Comment: [facility] has implemented the eGFR calculation approach that does not have a coefficient for race that conforms to the NKF-ASN Task Force Recommendations. Performed By: #### 4 [id number] #### LAB [address] [address] Les Malone M.D. [id number] MAGNESIUM LEVELon 01-28-2024 Magnesium [Mass/Vol] 1.8 mg/dL Normal 1.6-2.4 [facility] Comment on above: Performed By: #### 4 6109 #### LAB [address] [address] Les Malone M.D. [id number] POC GLUCOSE - [facility] 024 Glucose [Mass/Vol] 118 mg/dL High [address] [place] [address] Comment on above: Performed By: #### 4 6932 ####[facility] [address] [place] [address] Les Malone M.D. [id number] Glucose [Mass/Vol] 105 mg/dL [address] Comment on above: Performed By: #### 4 6932 ####[facility] [address] [place] [address] Les Malone M.D. [id number] Glucose [Mass/Vol] 120 mg/dL [address] Comment on above: Performed By: #### 4 6932 #### LAB [address] [place] [address] Les Malone M.D. [id number] Glucose [Mass/Vol] 120 mg/dL [address] Comment on above: Performed By: #### 4 6999 #### LAB [address] [place] [address] Les Malone M.D. [id number] Glucose [Mass/Vol] 101 mg/dL [address] Comment on above: Performed By: #### 4 0229 ####[facility] [address] [place] [address] Les Malone M.D. [id number] Glucose [Mass/Vol] 117 mg/dL [address] Comment on above: Performed By: #### 4 1246 ####[facility] [address] [place] [address] Les Malone M.D. [id number] CBCon 01-27-2024 AUTO NRBC 0.0 % Normal [facility] Comment on above: Performed By: #### 4 [id number] #### LAB [address] [address] Les Malone M.D. [id number] AUTO NRBC ABS COUNT 0.00 K/mcL Normal 0.00-0.00 [facility] Comment on above: Performed By: #### 4 [id number] ####[facility] [address] [address] Les Malone M.D. [id number] Erythrocyte distribution width (RBC) [Ratio] 17.2 % High 11.6-14.[address] [facility] Comment on above: Performed By: #### 4 [id number] #### LAB [address] [address] Les Malone M.D. [id number] Hematocrit (Bld) [Volume fraction] 32.4 % Low 41.0-53.[address] [facility] Comment on above: Performed By: #### 4 [id number] #### LAB [address] [place] [address] Les Malone M.D. [id number] Hemoglobin (Bld) [Mass/Vol] 10.0 g/dL Low 13.5-17.[address] [facility] Comment on above: Performed By: #### 4 [id number] #### LAB [address] [place] [address] Les Malone M.D. [id number] MCH (RBC) [Entitic mass] 28.2 pg Normal 26.0-34.[address] [facility] Comment on above: Performed By: #### 4 [id number] #### LAB [address] [place] [address] Les Malone M.D. [id number] MCV (RBC) [Entitic vol] 91.5 fL Normal 80.0-100.[address] [facility] Comment on above: Performed By: #### 4 [id number] #### LAB [address] [place] [address] Les Malone M.D. [id number] MEAN CORPUSCULAR HEMOGLOBIN CONC 30.9 g/dL Low 31.0-37.[address] [facility] Comment on above: Performed By: #### 4 [id number] #### LAB [address] [place] [address] Les Malone M.D. [id number] Platelet mean volume (Bld) [Entitic vol] 10.2 fL Normal 9.4-12.[address] [facility] Comment on above: Performed By: #### 4 [id number] ####[facility] [address] [address] Les Malone M.D. [id number] Platelets (Bld) [#/Vol] 250 10*3/uL Normal 150-[address] [facility] Comment on above: Performed By: #### 4 [id number] #### LAB [address] [place] [address] Les Malone M.D. [id number] RBC (Bld) [#/Vol] 3.54 10*6/uL Low 4.50-5.90 [facility] Comment on above: Performed By: #### 4 [id number] #### LAB [address] [address] Les Malone M.D. [id number] WBC (Bld) [#/Vol] 10.19 10*3/uL Normal 4.50-11.00 [facility] Comment on above: Performed By: #### 4 [id number] #### LAB [address] [place] [address] Les Malone M.D. [id number] CHEM 701-27-2024 Anion gap [Moles/Vol] 18 mmol/L Normal 10-20 [facility] Comment on above: Order Comment: [facility] has implemented the eGFR calculation approach that does not have a coefficient for race that conforms to the NKF-ASN Task Force Recommendations. Performed By: #### 4 [id number] #### LAB [address] [address] Les Malone M.D. [id number] Chloride [Moles/Vol] 101 mmol/L Normal 98-108 [facility] Comment on above: Order Comment: [facility] has implemented the eGFR calculation approach that does not have a coefficient for race that conforms to the NKF-ASN Task Force Recommendations. Performed By: #### 4 6953 #### LAB [address] [place] [address] Les Malone M.D. [id number] Creatinine [Mass/Vol] 0.47 mg/dL Low 0.50-1.30 [facility] Comment on above: Order Comment: [facility] has implemented the eGFR calculation approach that does not have a coefficient for race that conforms to the NKF-ASN Task Force Recommendations. Performed By: #### 4 6953 ####[facility] [address] [address] Les Malone M.D. [id number] EGFR 131 mL/min/1.73 m2 Normal >=60 [facility] Comment on above: Order Comment: [facility] has implemented the eGFR calculation approach that does not have a coefficient for race that conforms to the NKF-ASN Task Force Recommendations. Result Comment: Fanta mated GFR was calculated using the 2020 CKD-EPI creatinine equation. Performed By: #### 4 6953 ####[facility] [address] [address] Les Malone M.D. [id number] Glucose [Mass/Vol] 119 mg/dL High 65-99 [facility] Comment on above: Order Comment: [facility] has implemented the eGFR calculation approach that does not have a coefficient for race that conforms to the NKF-ASN Task Force Recommendations. Performed By: #### 4 6953 ####[facility] [address] [place] [address] Les Malone M.D. [id number] HCO3 (Bld) [Moles/Vol] 24 mmol/L Normal 21-[address] [facility] Comment on above: Order Comment: [facility] has implemented the eGFR calculation approach that does not have a coefficient for race that conforms to the NKF-ASN Task Force Recommendations. Performed By: #### 4 6953 #### LAB [address] [place], [place] [address] Les Malone M.D. [id number] Potassium [Moles/Vol] 4.2 mmol/L Normal 3.5-5.1 [facility] Comment on above: Order Comment: [facility] has implemented the eGFR calculation approach that does not have a coefficient for race that conforms to the NKF-ASN Task Force Recommendations. Performed By: #### 4 6953 #### LAB [address] [address] Les Malone M.D. [id number] Sodium [Moles/Vol] 139 mmol/L Normal 135-145 [facility] Comment on above: Order Comment: [facility] has implemented the eGFR calculation approach that does not have a coefficient for race that conforms to the NKF-ASN Task Force Recommendations. Performed By: #### 4 6953 #### LAB [address] [address] Les Malone M.D. [id number] Urea nitrogen [Mass/Vol] 26 mg/dL High 8-[address] [facility] Comment on above: Order Comment: [facility] has implemented the eGFR calculation approach that does not have a coefficient for race that conforms to the NKF-ASN Task Force Recommendations. Performed By: #### 4 6953 #### LAB [address] [address] Les Malone M.D. [id number] Urea nitrogen/Creatinine [Mass ratio] 55.3 mg/mg High 10.0-20.[address] [facility] Comment on above: Order Comment: [facility] has implemented the eGFR calculation approach that does not have a coefficient for race that conforms to the NKF-ASN Task Force Recommendations. Performed By: #### 4 [id number] #### LAB [address] [place] [address] Les Malone M.D. [id number] [facility] Glucose [Mass/Vol] 107 mg/dL High [address] [place] [address] Comment on above: Performed By: #### 4 6932 #### LAB [address] [place] [address] Les Malone M.D. [id number] Glucose [Mass/Vol] 107 mg/dL [address] Comment on above: Performed By: #### 4 6932 #### LAB [address] [place] [address] Les Malone M.D. [id number] Glucose [Mass/Vol] 112 mg/dL High [address] [place] [address] Comment on above: Performed By: #### 4 6932 #### LAB [address] [place] [address] Les Malone M.D. [id number] Glucose [Mass/Vol] 123 mg/dL [address] Comment on above: Performed By: #### 4 6932 ####[facility] [address] [place] [address] Les Malone M.D. [id number] Glucose [Mass/Vol] 118 mg/dL [address] Comment on above: Performed By: #### 4 6932 #### LAB [address] [place] [address] Les Malone M.D. [id number] TYPE AND SCREENon 01-27-2024 TYPE AND SCREEN ABORH: O Positive AB SCREEN: Negative EXPIRATION DATE: 01/30/2024 23:59 EST Normal [facility] CBCon 01-26-2024 AUTO NRBC 0.0 % Normal [facility] Comment on above: Performed By: #### 4 [id number] #### LAB [address] [address] Les Malone M.D. [id number] AUTO NRBC ABS COUNT 0.00 K/mcL Normal 0.00-0.00 [facility] Comment on above: Performed By: #### 4 [id number] #### LAB [address] [address] Les Malone M.D. [id number] Erythrocyte distribution width (RBC) [Ratio] 17.9 % High 11.6-14.[address] [facility] Comment on above: Performed By: #### 4 [id number] #### LAB [address] [address] Les Malone M.D. [id number] Hematocrit (Bld) [Volume fraction] 31.9 % Low 41.0-53.[address] [facility] Comment on above: Performed By: #### 4 [id number] #### LAB [address] [address] Les Malone M.D. [id number] Hemoglobin (Bld) [Mass/Vol] 10.0 g/dL Low 13.5-17.[address] [facility] Comment on above: Performed By: #### 4 [id number] #### LAB [address] [address] Les Malone M.D. [id number] MCH (RBC) [Entitic mass] 28.3 pg Normal 26.0-34.[address] [facility] Comment on above: Performed By: #### 4 [id number] #### LAB [address] [address] Les Malone M.D. [id number] MCV (RBC) [Entitic vol] 90.4 fL Normal 80.0-100.[address] [facility] Comment on above: Performed By: #### 4 [id number] #### LAB [address] [address] Les Malone M.D. [id number] MEAN CORPUSCULAR HEMOGLOBIN CONC 31.3 g/dL Normal 31.0-37.[address] [facility] Comment on above: Performed By: #### 4 [id number] #### LAB [address] [address] Les Malone M.D. [id number] Platelet mean volume (Bld) [Entitic vol] 10.5 fL Normal 9.4-12.[address] [facility] Comment on above: Performed By: #### 4 [id number] #### LAB [address] [place], [place] [address] Les Malone M.D. [id number] Platelets (Bld) [#/Vol] 259 10*3/uL Normal 150-[address] [facility] Comment on above: Performed By: #### 4 [id number] ####[facility] [address] [address] Les Malone M.D. [id number] RBC (Bld) [#/Vol] 3.53 10*6/uL Low 4.50-5.90 [facility] Comment on above: Performed By: #### 4 [id number] ####[facility] [address] [address] Les Malone M.D. [id number] WBC (Bld) [#/Vol] 10.04 10*3/uL Normal 4.50-11.00 [facility] Comment on above: Performed By: #### 4 [id number] #### LAB [address] [address] Les Malone M.D. [id number] CHEM 7on 01-26-2024 Anion gap [Moles/Vol] 15 mmol/L Normal 10-20 [facility] Comment on above: Order Comment: [facility] has implemented the eGFR calculation approach that does not have a coefficient for race that conforms to the NKF-ASN Task Force Recommendations. Performed By: #### 4 6953 #### LAB [address] [address] Les Malone M.D. [id number] Chloride [Moles/Vol] 100 mmol/L Normal 98-108 [facility] Comment on above: Order Comment: [facility] has implemented the eGFR calculation approach that does not have a coefficient for race that conforms to the NKF-ASN Task Force Recommendations. Performed By: #### 4 6953 #### LAB [address] [address] Les Malone M.D. [id number] Creatinine [Mass/Vol] 0.44 mg/dL Low 0.50-1.30 [facility] Comment on above: Order Comment: [facility] has implemented the eGFR calculation approach that does not have a coefficient for race that conforms to the NKF-ASN Task Force Recommendations. Performed By: #### 4 6953 #### LAB [address] [address] Les Malone M.D. [id number] EGFR 133 mL/min/1.73 m2 Normal >=60 [facility] Comment on above: Order Comment: [facility] has implemented the eGFR calculation approach that does not have a coefficient for race that conforms to the NKF-ASN Task Force Recommendations. Result Comment: Fanta mated GFR was calculated using the 2020 CKD-EPI creatinine equation. Performed By: #### 4 [id number] #### LAB [address] [place] [address] Les Malone M.D. [id number] Glucose [Mass/Vol] 115 mg/dL High 65-99 [facility] Comment on above: Order Comment: [facility] has implemented the eGFR calculation approach that does not have a coefficient for race that conforms to the NKF-ASN Task Force Recommendations. Performed By: #### 4 6953 #### LAB [address] [place] [address] Les Malone M.D. [id number] HCO3 (Bld) [Moles/Vol] 25 mmol/L Normal 21-[address] [facility] Comment on above: Order Comment: [facility] has implemented the eGFR calculation approach that does not have a coefficient for race that conforms to the NKF-ASN Task Force Recommendations. Performed By: #### 4 6953 #### LAB [address] [address] Les Malone M.D. [id number] Potassium [Moles/Vol] 4.2 mmol/L Normal 3.5-5.1 [facility] Comment on above: Order Comment: [facility] has implemented the eGFR calculation approach that does not have a coefficient for race that conforms to the NKF-ASN Task Force Recommendations. Performed By: #### 4 6953 #### LAB [address] [address] Les Malone M.D. [id number] Sodium [Moles/Vol] 136 mmol/L Normal 135-145 [facility] Comment on above: Order Comment: [facility] has implemented the eGFR calculation approach that does not have a coefficient for race that conforms to the NKF-ASN Task Force Recommendations. Performed By: #### 4 6953 #### LAB [address] [address] Les Malone M.D. [id number] Urea nitrogen [Mass/Vol] 26 mg/dL High 8-[address] [facility] Comment on above: Order Comment: [facility] has implemented the eGFR calculation approach that does not have a coefficient for race that conforms to the NKF-ASN Task Force Recommendations. Performed By: #### 4 6953 #### LAB [address] [place] [address] Les Malone M.D. [id number] Urea nitrogen/Creatinine [Mass ratio] 59.1 mg/mg High 10.0-20.[address] [facility] Comment on above: Order Comment: [facility] has implemented the eGFR calculation approach that does not have a coefficient for race that conforms to the NKF-ASN Task Force Recommendations. Performed By: #### 4 [id number] #### LAB [address] [place] [address] Les Malone M.D. [id number] CT CERVICAL SPINE WITHOUT CO NTRASTon 01-26-2024 CT CERVICAL SPINE WITHOUT CONTRAST [facility] Comment on above: Order Comment: Injur y/Trauma or Illness?:Injury/TraumaHow long have you had these symptoms (acute/chronic)?:AcuteReason for exam?:f/u post-op spinal injuryType of Exam?:Subsequent/Follow-upMechanism of injury?:. CT THORACIC SPINE WITHOUT CO NTRASTon 01-26-2024 CT THORACIC SPINE WITHOUT CONTRAST [facility] Comment on above: Order Comment: Injur y/Trauma or Illness?:Injury/TraumaHow long have you had these symptoms (acute/chronic)?:AcuteReason for exam?:f/u post-op spinal injuryType of Exam?:Subsequent/Follow-upMechanism of injury?:. POC GLUCOSE - [facility] 024 Glucose [Mass/Vol] 119 mg/dL High [address] [place] [address] Comment on above: Performed By: #### 4 [id number] #### LAB [address] [place] [address] Les Malone M.D. [id number] Glucose [Mass/Vol] 94 mg/dL Normal [address] [place] [address] Comment on above: Performed By: #### 4 6932 #### LAB [address] [place] [address] Les Malone M.D. [id number] Glucose [Mass/Vol] 112 mg/dL High [address] [place] [address] Comment on above: Performed By: #### 4 6932 #### LAB [address] [place] [address] Les Malone M.D. [id number] Glucose [Mass/Vol] 115 mg/dL High [address] [place] [address] Comment on above: Performed By: #### 4 [id number] #### LAB [address] [place] [address] Les Malone M.D. [id number] CBCon 01-25-2024 AUTO NRBC 0.0 % Normal [facility] Comment on above: Performed By: #### 4 [id number] #### LAB [address] [place] [address] Les Malone M.D. [id number] AUTO NRBC ABS COUNT 0.00 K/mcL Normal 0.00-0.00 [facility] Comment on above: Performed By: #### 4 [id number] #### LAB [address] [place] [address] Les Malone M.D. [id number] Erythrocyte distribution width (RBC) [Ratio] 18.1 % High 11.6-14.[address] [facility] Comment on above: Performed By: #### 4 [id number] #### LAB [address] [address] Les Malone M.D. [id number] Hematocrit (Bld) [Volume fraction] 30.7 % Low 41.0-53.[address] [facility] Comment on above: Performed By: #### 4 [id number] #### LAB [address] [place] [address] Les Malone M.D. [id number] Hemoglobin (Bld) [Mass/Vol] 9.6 g/dL Low 13.5-17.[address] [facility] Comment on above: Performed By: #### 4 [id number] #### LAB [address] [place] [address] Les Malone M.D. [id number] MCH (RBC) [Entitic mass] 28.0 pg Normal 26.0-34.[address] [facility] Comment on above: Performed By: #### 4 [id number] #### LAB [address] [place] [address] Les Malone M.D. [id number] MCV (RBC) [Entitic vol] 89.5 fL Normal 80.0-100.[address] [facility] Comment on above: Performed By: #### 4 [id number] #### LAB [address] [place] [address] Les Malone M.D. [id number] MEAN CORPUSCULAR HEMOGLOBIN CONC 31.3 g/dL Normal 31.0-37.[address] [facility] Comment on above: Performed By: #### 4 [id number] #### LAB [address] [place] [address] Les Malone M.D. [id number] Platelet mean volume (Bld) [Entitic vol] 10.1 fL Normal 9.4-12.[address] [facility] Comment on above: Performed By: #### 4 [id number] #### LAB [address] [place] [address] Les Malone M.D. [id number] Platelets (Bld) [#/Vol] 253 10*3/uL Normal 150-[address] [facility] Comment on above: Performed By: #### 4 [id number] #### LAB [address] [place], [place] [address] Les Malone M.D. [id number] RBC (Bld) [#/Vol] 3.43 10*6/uL Low 4.50-5.90 [facility] Comment on above: Performed By: #### 4 [id number] ####[facility] [address] [place], [place] [address] Les Malone M.D. [id number] WBC (Bld) [#/Vol] 12.05 10*3/uL High 4.50-11.00 [facility] Comment on above: Performed By: #### 4 [id number] ####[facility] [address] [place], [place] [address] Les Malone M.D. [id number] CHEM 701-25-2024 Anion gap [Moles/Vol] 14 mmol/L Normal 10-20 [facility] Comment on above: Order Comment: [facility] has implemented the eGFR calculation approach that does not have a coefficient for race that conforms to the NKF-ASN Task Force Recommendations. Performed By: #### 4 [id number] #### LAB [address] [place], [place] [address] Les Malone M.D. [id number] Chloride [Moles/Vol] 100 mmol/L Normal 98-108 [facility] Comment on above: Order Comment: [facility] has implemented the eGFR calculation approach that does not have a coefficient for race that conforms to the NKF-ASN Task Force Recommendations. Performed By: #### 4 6953 #### LAB [address] [place], [place] [address] Les Malone M.D. [id number] Creatinine [Mass/Vol] 0.44 mg/dL Low 0.50-1.30 [facility] Comment on above: Order Comment: [facility] has implemented the eGFR calculation approach that does not have a coefficient for race that conforms to the NKF-ASN Task Force Recommendations. Performed By: #### 4 [id number] #### LAB [address] [place] [address] Les Malone M.D. [id number] EGFR 133 mL/min/1.73 m2 Normal >=60 [facility] Comment on above: Order Comment: [facility] has implemented the eGFR calculation approach that does not have a coefficient for race that conforms to the NKF-ASN Task Force Recommendations. Result Comment: Fanta mated GFR was calculated using the 2020 CKD-EPI creatinine equation. Performed By: #### 4 6953 #### LAB [address] [address] Les Malone M.D. [id number] Glucose [Mass/Vol] 119 mg/dL High 65-99 [facility] Comment on above: Order Comment: [facility] has implemented the eGFR calculation approach that does not have a coefficient for race that conforms to the NKF-ASN Task Force Recommendations. Performed By: #### 4 [id number] #### LAB [address] [address] Les Malone M.D. [id number] HCO3 (Bld) [Moles/Vol] 24 mmol/L Normal 21-[address] [facility] Comment on above: Order Comment: [facility] has implemented the eGFR calculation approach that does not have a coefficient for race that conforms to the NKF-ASN Task Force Recommendations. Performed By: #### 4 6953 #### LAB [address] [address] Les Malone M.D. [id number] Potassium [Moles/Vol] 4.1 mmol/L Normal 3.5-5.1 [facility] Comment on above: Order Comment: [facility] has implemented the eGFR calculation approach that does not have a coefficient for race that conforms to the NKF-ASN Task Force Recommendations. Performed By: #### 4 [id number] #### LAB [address] [address] Les Malone M.D. [id number] Sodium [Moles/Vol] 134 mmol/L Low 135-145 [facility] Comment on above: Order Comment: [facility] has implemented the eGFR calculation approach that does not have a coefficient for race that conforms to the NKF-ASN Task Force Recommendations. Performed By: #### 4 6953 ####[facility] [address] [place], [place] [address] Les Malone M.D. [id number] Urea nitrogen [Mass/Vol] 24 mg/dL Normal 8-[address] [facility] Comment on above: Order Comment: [facility] has implemented the eGFR calculation approach that does not have a coefficient for race that conforms to the NKF-ASN Task Force Recommendations. Performed By: #### 4 6953 ####[facility] [address] [address] Les Malone M.D. [id number] Urea nitrogen/Creatinine [Mass ratio] 54.5 mg/mg High 10.0-20.[address] [facility] Comment on above: Order Comment: [facility] has implemented the eGFR calculation approach that does not have a coefficient for race that conforms to the NKF-ASN Task Force Recommendations. Performed By: #### 4 6953 ####[facility] [address] [id number] Les Malone M.D. [id number] POC ARTERIAL BLOOD GAS PANEL [facility] 01-25-2024 [id number] 69.7 mm Hg [facility] Comment on above: Performed By: #### 4 [id number] ####[facility] [address] [id number] Les Malone M.D. [id number] BASE EXCESS, ARTERIAL 4.5 High -2.0-2.0 [facility] Comment on above: Performed By: #### 4 [id number] ####[facility] [address] [address] Les Malone M.D. [id number] FIO2 40 [facility] Comment on above: Performed By: #### 4 [id number] ####[facility] [address] [address] Les Malone M.D. [id number] HCO3 (Bld) [Moles/Vol] 28.0 mmol/L High 22.0-26.[address] [facility] Comment on above: Performed By: #### 4 [id number] ####[facility] [address] [address] Les Malone M.D. [id number] Hematocrit (Bld) [Volume fraction] 29.7 % Low 41.0-53.[address] [facility] Comment on above: Performed By: #### 4 [id number] ####[facility] [address] [address] Les Malone M.D. [id number] Hemoglobin (Bld) [Mass/Vol] 9.7 g/dL Low 13.5-17.[address] [facility] Comment on above: Performed By: #### 4 [id number] ####[facility] [address] [address] Les Malone M.D. [id number] LITER FLOW [address] [facility] Comment on above: Performed By: #### 4 [id number] ####[facility] [address] [address] Les Malone M.D. [id number] Oxygen saturation in Blood 99.6 % High 92.0-99.[address] [facility] Comment on above: Performed By: #### 4 [id number] ####[facility] [address] [address] Les Malone M.D. [id number] PCO2 ARTERIAL 36.5 mm Hg Normal 35.0-45.[address] [facility] Comment on above: Performed By: #### 4 [id number] ####[facility] [address] [address] Les Malone M.D. [id number] PH ARTERIAL 7.49 High 7.35-7.[address] [facility] Comment on above: Performed By: #### 4 [id number] ####[facility] [address] [address] Les Malone M.D. [id number] PO2 ARTERIAL 161 mm Hg High 80-[address] [facility] Comment on above: Performed By: #### 4 [id number] #### LAB [address] [address] Les Malone M.D. [id number] SPECIMEN SOURCE RADIANCE Not specified Normal [facility] Comment on above: Performed By: #### 4 [id number] #### LAB [address] [address] Les Malone M.D. [id number] POC GLUCOSE - [facility] 024 Glucose [Mass/Vol] 108 mg/dL High [address] [place] [address] Comment on above: Performed By: #### 4 6932 #### LAB [address] [address] Les Malone M.D. [id number] Glucose [Mass/Vol] 117 mg/dL [address] Comment on above: Performed By: #### 4 6932 #### LAB [address] [address] Les Malone M.D. [id number] Glucose [Mass/Vol] 111 mg/dL [address] Comment on above: Performed By: #### 4 6932 #### LAB [address] [address] Les Malone M.D. [id number] Glucose [Mass/Vol] 108 mg/dL [address] Comment on above: Performed By: #### 4 6932 #### LAB [address] [address] Les Malone M.D. [id number] Glucose [Mass/Vol] 102 mg/dL [address] Comment on above: Performed By: #### 4 6975 #### LAB [address] [address] Les Malone M.D. [id number] Glucose [Mass/Vol] 110 mg/dL [address] Comment on above: Performed By: #### 4 6932 #### LAB [address] [address] Les Malone M.D. [id number] CBCon 01-24-2024 AUTO NRBC 0.0 % Normal [facility] Comment on above: Performed By: #### 4 [id number] #### LAB [address] [address] Les Malone M.D. [id number] AUTO NRBC ABS COUNT 0.00 K/mcL Normal 0.00-0.00 [facility] Comment on above: Performed By: #### 4 [id number] #### LAB [address] [address] Les Malone M.D. [id number] Erythrocyte distribution width (RBC) [Ratio] 18.5 % High 11.6-14.[address] [facility] Comment on above: Performed By: #### 4 [id number] #### LAB [address] [address] Les Malone M.D. [id number] Hematocrit (Bld) [Volume fraction] 29.9 % Low 41.0-53.[address] [facility] Comment on above: Performed By: #### 4 [id number] #### LAB [address] [address] Les Malone M.D. [id number] Hemoglobin (Bld) [Mass/Vol] 9.4 g/dL Low 13.5-17.[address] [facility] Comment on above: Performed By: #### 4 [id number] #### LAB [address] [address] Les Malone M.D. [id number] MCH (RBC) [Entitic mass] 28.1 pg Normal 26.0-34.[address] [facility] Comment on above: Performed By: #### 4 [id number] #### LAB [address] [address] Les Malone M.D. [id number] MCV (RBC) [Entitic vol] 89.5 fL Normal 80.0-100.[address] [facility] Comment on above: Performed By: #### 4 [id number] #### LAB [address] [address] Les Malone M.D. [id number] MEAN CORPUSCULAR HEMOGLOBIN CONC 31.4 g/dL Normal 31.0-37.[address] [facility] Comment on above: Performed By: #### 4 [id number] #### LAB [address] [address] Les Malone M.D. [id number] Platelet mean volume (Bld) [Entitic vol] 10.3 fL Normal 9.4-12.[address] [facility] Comment on above: Performed By: #### 4 [id number] #### LAB [address] [address] Les Malone M.D. [id number] Platelets (Bld) [#/Vol] 260 10*3/uL Normal 150-[address] [facility] Comment on above: Performed By: #### 4 [id number] #### LAB [address] [address] Les Malone M.D. [id number] RBC (Bld) [#/Vol] 3.34 10*6/uL Low 4.50-5.90 [facility] Comment on above: Performed By: #### 4 [id number] #### LAB [address] [address] Les Malone M.D. [id number] WBC (Bld) [#/Vol] 13.03 10*3/uL High 4.50-11.00 [facility] Comment on above: Performed By: #### 4 [id number] ####[facility] [address] [address] Les Malone M.D. [id number] CHEM 7on 01-24-2024 Anion gap [Moles/Vol] 15 mmol/L Normal 10-20 [facility] Comment on above: Order Comment: [facility] has implemented the eGFR calculation approach that does not have a coefficient for race that conforms to the NKF-ASN Task Force Recommendations. Performed By: #### 4 6953 ####[facility] [address] [address] Les Malone M.D. [id number] Chloride [Moles/Vol] 99 mmol/L Normal 98-108 [facility] Comment on above: Order Comment: [facility] has implemented the eGFR calculation approach that does not have a coefficient for race that conforms to the NKF-ASN Task Force Recommendations. Performed By: #### 4 6953 ####[facility] [address] [address] Les Malone M.D. [id number] Creatinine [Mass/Vol] 0.52 mg/dL Normal 0.50-1.30 [facility] Comment on above: Order Comment: [facility] has implemented the eGFR calculation approach that does not have a coefficient for race that conforms to the NKF-ASN Task Force Recommendations. Performed By: #### 4 6953 #### LAB [address] [address] Les Malone M.D. [id number] EGFR 127 mL/min/1.73 m2 Normal >=60 [facility] Comment on above: Order Comment: [facility] has implemented the eGFR calculation approach that does not have a coefficient for race that conforms to the NKF-ASN Task Force Recommendations. Result Comment: Fanta mated GFR was calculated using the 2020 CKD-EPI creatinine equation. Performed By: #### 4 [id number] ####[facility] [address] [address] Les Malone M.D. [id number] Glucose [Mass/Vol] 125 mg/dL High 65-99 [facility] Comment on above: Order Comment: [facility] has implemented the eGFR calculation approach that does not have a coefficient for race that conforms to the NKF-ASN Task Force Recommendations. Performed By: #### 4 6953 ####[facility] [address] [address] Les Malone M.D. [id number] HCO3 (Bld) [Moles/Vol] 23 mmol/L Normal 21-[address] [facility] Comment on above: Order Comment: [facility] has implemented the eGFR calculation approach that does not have a coefficient for race that conforms to the NKF-ASN Task Force Recommendations. Performed By: #### 4 6953 #### LAB [address] [place], [place] [address] Les Malone M.D. [id number] Potassium [Moles/Vol] 4.1 mmol/L Normal 3.5-5.1 [facility] Comment on above: Order Comment: [facility] has implemented the eGFR calculation approach that does not have a coefficient for race that conforms to the NKF-ASN Task Force Recommendations. Performed By: #### 4 6953 #### LAB [address] [address] Les Malone M.D. [id number] Sodium [Moles/Vol] 133 mmol/L Low 135-145 [facility] Comment on above: Order Comment: [facility] has implemented the eGFR calculation approach that does not have a coefficient for race that conforms to the NKF-ASN Task Force Recommendations. Performed By: #### 4 [id number] #### LAB [address] [address] Les Malone M.D. [id number] Urea nitrogen [Mass/Vol] 22 mg/dL Normal 8-[address] [facility] Comment on above: Order Comment: [facility] has implemented the eGFR calculation approach that does not have a coefficient for race that conforms to the NKF-ASN Task Force Recommendations. Performed By: #### 4 6953 ####[facility] [address] [place], [place] [address] Les Malone M.D. [id number] Urea nitrogen/Creatinine [Mass ratio] 42.3 mg/mg High 10.0-20.[address] [facility] Comment on above: Order Comment: [facility] has implemented the eGFR calculation approach that does not have a coefficient for race that conforms to the NKF-ASN Task Force Recommendations. Performed By: #### 4 6953 ####[facility] [address] [address] Les Malone M.D. [id number] POC ARTERIAL BLOOD GAS PANEL -[facility] 01-24-2024 [id number] 61.6 mm Hg Normal [facility] Comment on above: Performed By: #### 4 [id number] ####[facility] [address] [address] Les Malone M.D. [id number] BASE EXCESS, ARTERIAL 2.8 High -2.0-2.0 [facility] Comment on above: Performed By: #### 4 [id number] #### LAB [address] [address] Les Malone M.D. [id number] FIO2 [address] [facility] Comment on above: Performed By: #### 4 [id number] #### LAB [address] [address] Les Malone M.D. [id number] HCO3 (Bld) [Moles/Vol] 25.9 mmol/L Normal 22.0-26.[address] [facility] Comment on above: Performed By: #### 4 [id number] #### LAB [address] [address] Les Malone M.D. [id number] Hematocrit (Bld) [Volume fraction] 29.8 % Low 41.0-53.[address] [facility] Comment on above: Performed By: #### 4 [id number] #### LAB [address] [address] Les Malone M.D. [id number] Hemoglobin (Bld) [Mass/Vol] 9.7 g/dL Low 13.5-17.[address] [facility] Comment on above: Performed By: #### 4 [id number] #### LAB [address] [address] Les Malone M.D. [id number] Oxygen saturation in Blood 99.8 % High 92.0-99.[address] [facility] Comment on above: Performed By: #### 4 8716 ####[facility] [address] [address] Les Malone M.D. [id number] PCO2 ARTERIAL 33.5 mm Hg Low 35.0-45.[address] [facility] Comment on above: Performed By: #### 4 [id number] ####[facility] [address] [address] Les Malone M.D. [id number] PEEP RAD [address] [facility] Comment on above: Performed By: #### 4 [id number] ####[facility] [address] [address] Les Malone M.D. [id number] PH ARTERIAL 7.50 High 7.35-7.[address] [facility] Comment on above: Performed By: #### 4 [id number] #### LAB [address] [address] Les Malone M.D. [id number] PO2 ARTERIAL 171 mm Hg High 80-[address] [facility] Comment on above: Performed By: #### 4 [id number] ####[facility] [address] [address] Les Malone M.D. [id number] RESP RATE RAD 20 [facility] Comment on above: Performed By: #### 4 [id number] #### LAB [address] [address] Les Malone M.D. [id number] SPECIMEN SOURCE RADIANCE Not specified [facility] Comment on above: Performed By: #### 4 [id number] #### LAB [address] [address] Les Malone M.D. [id number] TIDAL VOLUME RAD 480 Normal [facility] Comment on above: Performed By: #### 4 [id number] #### LAB [address] [address] Les Malone M.D. [id number] [facility] Glucose [Mass/Vol] 129 mg/dL High 65-99 [facility] Comment on above: Performed By: #### 4 6932 ####[facility] [address] [address] Les Malone M.D. [id number] Glucose [Mass/Vol] 158 mg/dL High [address] [place] [address] Comment on above: Performed By: #### 4 6932 #### LAB [address] [address] Les Malone M.D. [id number] Glucose [Mass/Vol] 121 mg/dL High [address] [place] [address] Comment on above: Performed By: #### 4 6932 #### LAB [address] [address] Les Malone M.D. [id number] Glucose [Mass/Vol] 118 mg/dL High [address] [place] [address] Comment on above: Performed By: #### 4 6932 #### LAB [address] [address] Les Malone M.D. [id number] Glucose [Mass/Vol] 119 mg/dL High [address] [place] [address] Comment on above: Performed By: #### 4 6932 #### LAB [address] [address] Les Malone M.D. [id number] CBCon 01-23-2024 AUTO NRBC 0.0 % Normal [facility] Comment on above: Performed By: #### 4 [id number] #### LAB [address] [address] Les Malone M.D. [id number] AUTO NRBC ABS COUNT 0.00 K/mcL Normal 0.00-0.00 [facility] Comment on above: Performed By: #### 4 [id number] #### LAB [address] [address] Les Malone M.D. [id number] Erythrocyte distribution width (RBC) [Ratio] 19.4 % High 11.6-14.[address] [facility] Comment on above: Performed By: #### 4 [id number] #### LAB [address] [address] Les Malone M.D. [id number] Hematocrit (Bld) [Volume fraction] 30.1 % Low 41.0-53.[address] [facility] Comment on above: Performed By: #### 4 [id number] #### LAB [address] [address] Les Malone M.D. [id number] Hemoglobin (Bld) [Mass/Vol] 9.6 g/dL Low 13.5-17.[address] [facility] Comment on above: Performed By: #### 4 [id number] #### LAB [address] [address] Les Malone M.D. [id number] MCH (RBC) [Entitic mass] 28.6 pg Normal 26.0-34.[address] [facility] Comment on above: Performed By: #### 4 [id number] #### LAB [address] [address] Les Malone M.D. [id number] MCV (RBC) [Entitic vol] 89.6 fL Normal 80.0-100.[address] [facility] Comment on above: Performed By: #### 4 [id number] #### LAB [address] [address] Les Malone M.D. [id number] MEAN CORPUSCULAR HEMOGLOBIN CONC 31.9 g/dL Normal 31.0-37.[address] [facility] Comment on above: Performed By: #### 4 [id number] #### LAB [address] [address] Les Malone M.D. [id number] Platelet mean volume (Bld) [Entitic vol] 10.0 fL Normal 9.4-12.[address] [facility] Comment on above: Performed By: #### 4 [id number] #### LAB [address] [address] Les Malone M.D. [id number] Platelets (Bld) [#/Vol] 308 10*3/uL Normal 150-[address] [facility] Comment on above: Performed By: #### 4 [id number] #### LAB [address] [place], [place] [address] Les Malone M.D. [id number] RBC (Bld) [#/Vol] 3.36 10*6/uL Low 4.50-5.90 [facility] Comment on above: Performed By: #### 4 [id number] ####[facility] [address] [address] Les Malone M.D. [id number] WBC (Bld) [#/Vol] 9.96 10*3/uL Normal 4.50-11.00 [facility] Comment on above: Performed By: #### 4 [id number] #### LAB [address] [address] Les Malone M.D. [id number] CHEM 701-23-2024 Anion gap [Moles/Vol] 15 mmol/L Normal 10-20 [facility] Comment on above: Order Comment: [facility] has implemented the eGFR calculation approach that does not have a coefficient for race that conforms to the NKF-ASN Task Force Recommendations. Performed By: #### 4 6953 #### LAB [address] [address] Les Malone M.D. [id number] Chloride [Moles/Vol] 105 mmol/L Normal 98-108 [facility] Comment on above: Order Comment: [facility] has implemented the eGFR calculation approach that does not have a coefficient for race that conforms to the NKF-ASN Task Force Recommendations. Performed By: #### 4 6953 #### LAB [address] [address] Les Malone M.D. [id number] Creatinine [Mass/Vol] 0.51 mg/dL Normal 0.50-1.30 [facility] Comment on above: Order Comment: [facility] has implemented the eGFR calculation approach that does not have a coefficient for race that conforms to the NKF-ASN Task Force Recommendations. Performed By: #### 4 6953 #### LAB [address] [address] Les Malone M.D. [id number] EGFR 127 mL/min/1.73 m2 Normal >=60 [facility] Comment on above: Order Comment: [facility] has implemented the eGFR calculation approach that does not have a coefficient for race that conforms to the NKF-ASN Task Force Recommendations. Result Comment: Fanta mated GFR was calculated using the 2020 CKD-EPI creatinine equation. Performed By: #### 4 6953 ####[facility] [address] [address] Les Malone M.D. [id number] Glucose [Mass/Vol] 118 mg/dL High 65-99 [facility] Comment on above: Order Comment: [facility] has implemented the eGFR calculation approach that does not have a coefficient for race that conforms to the NKF-ASN Task Force Recommendations. Performed By: #### 4 6953 #### LAB [address] [address] Les Malone M.D. [id number] HCO3 (Bld) [Moles/Vol] 23 mmol/L Normal 21-[address] [facility] Comment on above: Order Comment: [facility] has implemented the eGFR calculation approach that does not have a coefficient for race that conforms to the NKF-ASN Task Force Recommendations. Performed By: #### 4 6953 #### LAB [address] [place], [place] [address] Les Malone M.D. [id number] Potassium [Moles/Vol] 3.9 mmol/L Normal 3.5-5.1 [facility] Comment on above: Order Comment: [facility] has implemented the eGFR calculation approach that does not have a coefficient for race that conforms to the NKF-ASN Task Force Recommendations. Performed By: #### 4 6953 ####[facility] [address] [address] Les Malone M.D. [id number] Sodium [Moles/Vol] 139 mmol/L Normal 135-145 [facility] Comment on above: Order Comment: [facility] has implemented the eGFR calculation approach that does not have a coefficient for race that conforms to the NKF-ASN Task Force Recommendations. Performed By: #### 4 6953 ####[facility] [address] [place], [place] [address] Les Malone M.D. [id number] Urea nitrogen [Mass/Vol] 19 mg/dL Normal 8-[address] [facility] Comment on above: Order Comment: [facility] has implemented the eGFR calculation approach that does not have a coefficient for race that conforms to the NKF-ASN Task Force Recommendations. Performed By: #### 4 6953 #### LAB [address] [place], [place] [address] Les Malone M.D. [id number] Urea nitrogen/Creatinine [Mass ratio] 37.3 mg/mg High 10.0-20.[address] [facility] Comment on above: Order Comment: [facility] has implemented the eGFR calculation approach that does not have a coefficient for race that conforms to the NKF-ASN Task Force Recommendations. Performed By: #### 4 [id number] #### LAB [address] [place], [place] [address] Les Malone M.D. [id number] MAGNESIUM LEVELon 01-23-2024 Magnesium [Mass/Vol] 1.8 mg/dL Normal 1.6-2.4 [facility] Comment on above: Performed By: #### 4 6109 ####[facility] [address] [address] Les Malone M.D. [id number] Magnesium [Mass/Vol] 1.7 mg/dL Normal 1.6-2.4 [facility] Comment on above: Performed By: #### 4 6109 ####[facility] [address] [place], [place] [address] Les Malone M.D. [id number] POC ARTERIAL BLOOD [facility] 01-23-2024 [id number] 140.7 mm Hg Normal [facility] Comment on above: Performed By: #### 4 [id number] ####[facility] [address] [address] Les Malone M.D. [id number] BASE EXCESS, ARTERIAL 3.7 High -2.0-2.0 [facility] Comment on above: Performed By: #### 4 8716 ####[facility] [address] [place] [address] Les Malone M.D. [id number] FIO2 [address] [facility] Comment on above: Performed By: #### 4 8716 ####[facility] [address] [place] [address] Les Malone M.D. [id number] HCO3 (Bld) [Moles/Vol] 26.8 mmol/L High 22.0-26.[address] [facility] Comment on above: Performed By: #### 4 [id number] ####[facility] [address] [address] Les Malone M.D. [id number] Hematocrit (Bld) [Volume fraction] 32.1 % Low 41.0-53.[address] [facility] Comment on above: Performed By: #### 4 [id number] ####[facility] [address] [address] Les Malone M.D. [id number] Hemoglobin (Bld) [Mass/Vol] 10.5 g/dL Low 13.5-17.[address] [facility] Comment on above: Performed By: #### 4 [id number] #### LAB [address] [place] [address] Les Malone M.D. [id number] Oxygen saturation in Blood 98.3 % Normal 92.0-99.[address] [facility] Comment on above: Performed By: #### 4 [id number] ####[facility] [address] [place] [address] Les Malone M.D. [id number] PCO2 ARTERIAL 34.0 mm Hg Low 35.0-45.[address] [facility] Comment on above: Performed By: #### 4 [id number] ####[facility] [address] [address] Les Malone M.D. [id number] PEEP RAD 5 [facility] Comment on above: Performed By: #### 4 8716 #### LAB [address] [address] Les Malone M.D. [id number] PH ARTERIAL 7.50 High 7.35-7.[address] [facility] Comment on above: Performed By: #### 4 8716 ####[facility] [address] [address] Les Malone M.D. [id number] PO2 ARTERIAL 92 mm Hg Normal 80-[address] [facility] Comment on above: Performed By: #### 4 [id number] ####[facility] [address] [address] Les Malone M.D. [id number] RESP RATE RAD 20 [facility] Comment on above: Performed By: #### 4 8716 ####[facility] [address] [address] Les Malone M.D. [id number] SPECIMEN SOURCE RADIANCE Not specified [facility] Comment on above: Performed By: #### 4 8716 ####[facility] [address] [address] Les Malone M.D. [id number] TIDAL VOLUME RAD 480 Normal [facility] Comment on above: Performed By: #### 4 8716 ####[facility] [address] [address] Les Malone M.D. [id number] POC GLUCOSE - [facility] 024 Glucose [Mass/Vol] 111 mg/dL High 65-99 [facility] Comment on above: Performed By: #### 4 6932 ####[facility] [address] [address] Les Malone M.D. [id number] Glucose [Mass/Vol] 115 mg/dL High 65-99 [facility] Comment on above: Performed By: #### 4 6932 ####[facility] [address] [address] Les Malone M.D. [id number] Glucose [Mass/Vol] 109 mg/dL High [address] [place] [address] Comment on above: Performed By: #### 4 6932 #### LAB [address] [address] Les Malone M.D. [id number] Glucose [Mass/Vol] 115 mg/dL High [address] [place] [address] Comment on above: Performed By: #### 4 6932 ####[facility] [address] [address] Les Malone M.D. [id number] Glucose [Mass/Vol] 106 mg/dL High [address] [place] [address] Comment on above: Performed By: #### 4 6932 ####[facility] [address] [address] Les Malone M.D. [id number] POTASSIUM LEVELon 01-23-2024 Potassium [Moles/Vol] 4.0 mmol/L Normal 3.5-5.1 [facility] Comment on above: Performed By: #### 4 6351 #### LAB [address] [address] Les Malone M.D. [id number] CALCIUM, IONIZEDon CALCIUM IONIZED 4.5 mg/dL Normal 4.5-5.[address] [facility] Comment on above: Performed By: #### 4 5190 #### LAB [address] [address] Les Malone M.D. [id number] CBCon 01-22-2024 AUTO NRBC 0.0 % Normal [facility] Comment on above: Performed By: #### 4 [id number] #### LAB [address] [address] Les Malone M.D. [id number] AUTO NRBC ABS COUNT 0.00 K/mcL Normal 0.00-0.00 [facility] Comment on above: Performed By: #### 4 [id number] #### LAB [address] [address] Les Malone M.D. [id number] Erythrocyte distribution width (RBC) [Ratio] 19.1 % High 11.6-14.[address] [facility] Comment on above: Performed By: #### 4 [id number] #### LAB [address] [address] Les Malone M.D. [id number] Hematocrit (Bld) [Volume fraction] 33.0 % Low 41.0-53.[address] [facility] Comment on above: Performed By: #### 4 [id number] #### LAB [address] [address] Les Malone M.D. [id number] Hemoglobin (Bld) [Mass/Vol] 10.5 g/dL Low 13.5-17.[address] [facility] Comment on above: Performed By: #### 4 [id number] #### LAB [address] [address] Les Malone M.D. [id number] MCH (RBC) [Entitic mass] 28.6 pg Normal 26.0-34.[address] [facility] Comment on above: Performed By: #### 4 [id number] #### LAB [address] [address] Les Malone M.D. [id number] MCV (RBC) [Entitic vol] 89.9 fL Normal 80.0-100.[address] [facility] Comment on above: Performed By: #### 4 [id number] #### LAB [address] [address] Les Malone M.D. [id number] MEAN CORPUSCULAR HEMOGLOBIN CONC 31.8 g/dL Normal 31.0-37.[address] [facility] Comment on above: Performed By: #### 4 [id number] #### LAB [address] [address] Les Malone M.D. [id number] Platelet mean volume (Bld) [Entitic vol] 10.3 fL Normal 9.4-12.[address] [facility] Comment on above: Performed By: #### 4 [id number] #### LAB [address] [address] Les Malone M.D. [id number] Platelets (Bld) [#/Vol] 380 10*3/uL Normal 150-[address] [facility] Comment on above: Performed By: #### 4 [id number] #### LAB [address] [address] Les Malone M.D. [id number] RBC (Bld) [#/Vol] 3.67 10*6/uL Low 4.50-5.90 [facility] Comment on above: Performed By: #### 4 [id number] #### LAB [address] [address] Les Malone M.D. [id number] WBC (Bld) [#/Vol] 10.85 10*3/uL Normal 4.50-11.00 [facility] Comment on above: Performed By: #### 4 [id number] #### LAB [address] [address] Les Malone M.D. [id number] AUTO NRBC 0.0 % Normal [facility] Comment on above: Performed By: #### 4 [id number] #### LAB [address] [address] Les Malone M.D. [id number] AUTO NRBC ABS COUNT 0.00 K/mcL Normal 0.00-0.00 [facility] Comment on above: Performed By: #### 4 [id number] #### LAB [address] [address] Les Malone M.D. [id number] Erythrocyte distribution width (RBC) [Ratio] 18.3 % High 11.6-14.[address] [facility] Comment on above: Performed By: #### 4 [id number] #### LAB [address] [address] Les Malone M.D. [id number] Hematocrit (Bld) [Volume fraction] 27.0 % Low 41.0-53.[address] [facility] Comment on above: Performed By: #### 4 [id number] #### LAB [address] [address] Les Malone M.D. [id number] Hemoglobin (Bld) [Mass/Vol] 8.2 g/dL Low 13.5-17.[address] [facility] Comment on above: Performed By: #### 4 [id number] #### LAB [address] [address] Les Malone M.D. [id number] MCH (RBC) [Entitic mass] 28.1 pg Normal 26.0-34.[address] [facility] Comment on above: Performed By: #### 4 [id number] #### LAB [address] [address] Les Malone M.D. [id number] MCV (RBC) [Entitic vol] 92.5 fL Normal 80.0-100.[address] [facility] Comment on above: Performed By: #### 4 [id number] #### LAB [address] [address] Les Malone M.D. [id number] MEAN CORPUSCULAR HEMOGLOBIN CONC 30.4 g/dL Low 31.0-37.[address] [facility] Comment on above: Performed By: #### 4 [id number] #### LAB [address] [address] Les Malone M.D. [id number] Platelet mean volume (Bld) [Entitic vol] 10.4 fL Normal 9.4-12.[address] [facility] Comment on above: Performed By: #### 4 [id number] #### LAB [address] [address] Les Malone M.D. [id number] Platelets (Bld) [#/Vol] 378 10*3/uL Normal 150-[address] [facility] Comment on above: Performed By: #### 4 [id number] #### LAB [address] [address] Les Malone M.D. [id number] RBC (Bld) [#/Vol] 2.92 10*6/uL Low 4.50-5.90 [facility] Comment on above: Performed By: #### 4 [id number] #### LAB [address] [place], [place] [address] Les Malone M.D. [id number] WBC (Bld) [#/Vol] 8.99 10*3/uL Normal 4.50-11.00 [facility] Comment on above: Performed By: #### 4 5218 #### LAB [address] [place], [place] [address] Les Malone M.D. [id number] CHEM 701-22-2024 Anion gap [Moles/Vol] 14 mmol/L Normal 10-20 [facility] Comment on above: Order Comment: [facility] has implemented the eGFR calculation approach that does not have a coefficient for race that conforms to the NKF-ASN Task Force Recommendations. Performed By: #### 4 6953 #### LAB [address] [place], [place] [address] Les Malone M.D. [id number] Chloride [Moles/Vol] 110 mmol/L High 98-108 [facility] Comment on above: Order Comment: [facility] has implemented the eGFR calculation approach that does not have a coefficient for race that conforms to the NKF-ASN Task Force Recommendations. Performed By: #### 4 6953 #### LAB [address] [place], [place] [address] Les Malone M.D. [id number] Creatinine [Mass/Vol] 0.52 mg/dL Normal 0.50-1.30 [facility] Comment on above: Order Comment: [facility] has implemented the eGFR calculation approach that does not have a coefficient for race that conforms to the NKF-ASN Task Force Recommendations. Performed By: #### 4 6953 #### LAB [address] [place], [place] [address] Les Malone M.D. [id number] EGFR 127 mL/min/1.73 m2 Normal >=60 [facility] Comment on above: Order Comment: [facility] has implemented the eGFR calculation approach that does not have a coefficient for race that conforms to the NKF-ASN Task Force Recommendations. Result Comment: Fanta mated GFR was calculated using the 2020 CKD-EPI creatinine equation. Performed By: #### 4 6953 #### LAB [address] [address] Les Malone M.D. [id number] Glucose [Mass/Vol] 86 mg/dL Normal 65-99 [facility] Comment on above: Order Comment: [facility] has implemented the eGFR calculation approach that does not have a coefficient for race that conforms to the NKF-ASN Task Force Recommendations. Performed By: #### 4 6953 #### LAB [address] [address] Les Malone M.D. [id number] HCO3 (Bld) [Moles/Vol] 24 mmol/L Normal 21-[address] [facility] Comment on above: Order Comment: [facility] has implemented the eGFR calculation approach that does not have a coefficient for race that conforms to the NKF-ASN Task Force Recommendations. Performed By: #### 4 6953 #### LAB [address] [address] Les Malone M.D. [id number] Potassium [Moles/Vol] 3.7 mmol/L Normal 3.5-5.1 [facility] Comment on above: Order Comment: [facility] has implemented the eGFR calculation approach that does not have a coefficient for race that conforms to the NKF-ASN Task Force Recommendations. Performed By: #### 4 6953 ####[facility] [address] [address] Les Malone M.D. [id number] Sodium [Moles/Vol] 144 mmol/L Normal 135-145 [facility] Comment on above: Order Comment: [facility] has implemented the eGFR calculation approach that does not have a coefficient for race that conforms to the NKF-ASN Task Force Recommendations. Performed By: #### 4 6953 ####[facility] [address] [place], [place] [address] Les Malone M.D. [id number] Urea nitrogen [Mass/Vol] 16 mg/dL Normal 8-[address] [facility] Comment on above: Order Comment: [facility] has implemented the eGFR calculation approach that does not have a coefficient for race that conforms to the NKF-ASN Task Force Recommendations. Performed By: #### 4 6953 #### LAB [address] [address] Les Malone M.D. [id number] Urea nitrogen/Creatinine [Mass ratio] 30.8 mg/mg High 10.0-20.[address] [facility] Comment on above: Order Comment: [facility] has implemented the eGFR calculation approach that does not have a coefficient for race that conforms to the NKF-ASN Task Force Recommendations. Performed By: #### 4 6953 #### LAB [address] [address] Les Malone M.D. [id number] Anion gap [Moles/Vol] 14 mmol/L Normal 10-20 [facility] Comment on above: Order Comment: [facility] has implemented the eGFR calculation approach that does not have a coefficient for race that conforms to the NKF-ASN Task Force Recommendations. Performed By: #### 4 6953 #### LAB [address] [place], [place] [address] Les Malone M.D. [id number] Chloride [Moles/Vol] 102 mmol/L Normal 98-108 [facility] Comment on above: Order Comment: [facility] has implemented the eGFR calculation approach that does not have a coefficient for race that conforms to the NKF-ASN Task Force Recommendations. Performed By: #### 4 6953 #### LAB [address] [place], [place] [address] Les Malone M.D. [id number] Creatinine [Mass/Vol] 0.52 mg/dL Normal 0.50-1.30 [facility] Comment on above: Order Comment: [facility] has implemented the eGFR calculation approach that does not have a coefficient for race that conforms to the NKF-ASN Task Force Recommendations. Performed By: #### 4 6953 #### LAB [address] [address] Les Malone M.D. [id number] EGFR 127 mL/min/1.73 m2 Normal >=60 [facility] Comment on above: Order Comment: [facility] has implemented the eGFR calculation approach that does not have a coefficient for race that conforms to the NKF-ASN Task Force Recommendations. Result Comment: Fanta mated GFR was calculated using the 2020 CKD-EPI creatinine equation. Performed By: #### 4 6953 #### LAB [address] [address] Les Malone M.D. [id number] Glucose [Mass/Vol] 98 mg/dL Normal 65-99 [facility] Comment on above: Order Comment: [facility] has implemented the eGFR calculation approach that does not have a coefficient for race that conforms to the NKF-ASN Task Force Recommendations. Performed By: #### 4 6953 #### LAB [address] [place], [place] [address] Les Malone M.D. [id number] HCO3 (Bld) [Moles/Vol] 24 mmol/L Normal 21-[address] [facility] Comment on above: Order Comment: [facility] has implemented the eGFR calculation approach that does not have a coefficient for race that conforms to the NKF-ASN Task Force Recommendations. Performed By: #### 4 6953 #### LAB [address] [place], [place] [address] Les Malone M.D. [id number] Potassium [Moles/Vol] 4.2 mmol/L Normal 3.5-5.1 [facility] Comment on above: Order Comment: [facility] has implemented the eGFR calculation approach that does not have a coefficient for race that conforms to the NKF-ASN Task Force Recommendations. Performed By: #### 4 6953 #### LAB [address] [address] Les Malone M.D. [id number] Sodium [Moles/Vol] 136 mmol/L Normal 135-145 [facility] Comment on above: Order Comment: [facility] has implemented the eGFR calculation approach that does not have a coefficient for race that conforms to the NKF-ASN Task Force Recommendations. Performed By: #### 4 6953 #### LAB [address] [address] Les Malone M.D. [id number] Urea nitrogen [Mass/Vol] 20 mg/dL Normal 8-[address] [facility] Comment on above: Order Comment: [facility] has implemented the eGFR calculation approach that does not have a coefficient for race that conforms to the NKF-ASN Task Force Recommendations. Performed By: #### 4 6953 ####[facility] [address] [address] Les Malone M.D. [id number] Urea nitrogen/Creatinine [Mass ratio] 38.5 mg/mg High 10.0-20.[address] [facility] Comment on above: Order Comment: [facility] has implemented the eGFR calculation approach that does not have a coefficient for race that conforms to the NKF-ASN Task Force Recommendations. Performed By: #### 4 6953 ####[facility] [address] [address] Les Malone M.D. [id number] ELECTROLYTES, URINEon 2023 CHLORIDE UR 164 mmol/L Normal [facility] Comment on above: Order Comment: No es tablished reference range. Performed By: #### 4 5532 ####[facility] [address] [address] Les Malone M.D. [id number] POTASSIUM UR 20.4 mmol/L [facility] Comment on above: Order Comment: No es tablished reference range. Performed By: #### 4 5532 ####[facility] [address] [address] Les Malone M.D. [id number] Sodium (U) [Moles/Vol] 182 mmol/L [facility] Comment on above: Order Comment: No es tablished reference range. Performed By: #### 4 5532 ####[facility] [address] [address] Les Malone M.D. [id number] MAGNESIUM LEVELon 01-22-2024 Magnesium [Mass/Vol] 2.0 mg/dL Normal 1.6-2.4 [facility] Comment on above: Performed By: #### 4 6109 #### LAB [address] [address] Les Malone M.D. [id number] OP NOTEon 01-22-2024 OP NOTE Normal [facility] OSMOLALITYon 01-22-2024 Osmolality [Osmolality] 294 mosm/kg Normal 275-[address] [facility] Comment on above: Performed By: #### 4 6230 #### LAB [address] [address] Les Malone M.D. [id number] OSMOLALITY, URINEon 01-22-20 24 OSMOLALITY URINE 521 mOsm/kg Normal [facility] Comment on above: Order Comment: No es tablished reference range. Performed By: #### 4 6233 ####[facility] [address] [address] Les Malone M.D. [id number] PHOSPHORUSon 01-22-2024 Phosphate [Mass/Vol] 3.4 mg/dL Normal 2.7-4.5 [facility] Comment on above: Performed By: #### 4 6299 #### LAB [address] [address] Les Malone M.D. [id number] POC ABG SURG - RALSon 2023 BASE EXCESS, ARTERIAL ISTAT 1 Normal -2-[address] [facility] Comment on above: Performed By: #### 4 8737 ####[facility] [address] [address] Les Malone M.D. [id number] Glucose [Mass/Vol] 102 mg/dL High 65-99 [facility] Comment on above: Performed By: #### 4 8737 #### LAB [address] [address] Les Malone M.D. [id number] HCO3 (Bld) [Moles/Vol] 26.1 mmol/L High 22.0-26.[address] [facility] Comment on above: Performed By: #### 4 8737 ####[facility] [address] [address] Les Malone M.D. [id number] Hematocrit (Bld) [Volume fraction] 30 % Low 41-[address] [facility] Comment on above: Performed By: #### 4 8737 #### LAB [address] [address] Les Malone M.D. [id number] Hemoglobin (Bld) [Mass/Vol] 10.2 g/dL Low 13.5-17.[address] [facility] Comment on above: Performed By: #### 4 8737 #### LAB [address] [address] Les Malone M.D. [id number] Oxygen saturation in Blood 99.0 % Normal 92.0-99.[address] [facility] Comment on above: Performed By: #### 4 8737 #### LAB [address] [address] Les Malone M.D. [id number] PCO2 ARTERIAL 40.6 mm Hg Normal 35.0-45.[address] [facility] Comment on above: Performed By: #### 4 8737 #### LAB [address] [address] Les Malone M.D. [id number] PH ARTERIAL 7.42 Normal 7.35-7.[address] [facility] Comment on above: Performed By: #### 4 8737 #### LAB [address] [address] Les Malone M.D. [id number] PO2 ARTERIAL 114 mm Hg High 80-[address] [facility] Comment on above: Performed By: #### 4 8741 ####[facility] [address] [address] Les Malone M.D. [id number] POC IONIZED CALCIUM 4.6 mg/dL Normal 4.5-5.3 [facility] Comment on above: Performed By: #### 4 8737 ####[facility] [address] [address] Les Malone M.D. [id number] Potassium [Moles/Vol] 3.9 mmol/L Normal 3.5-5.1 [facility] Comment on above: Performed By: #### 4 8737 ####[facility] [address] [address] Les Malone M.D. [id number] Sodium [Moles/Vol] 142 mmol/L Normal 135-145 [facility] Comment on above: Performed By: #### 4 8737 ####[facility] [address] [address] Les Malone M.D. [id number] BASE EXCESS, ARTERIAL ISTAT -1 Normal -2-[address] [facility] Comment on above: Performed By: #### 4 8737 ####[facility] [address] [address] Les Malone M.D. [id number] Glucose [Mass/Vol] 94 mg/dL Normal 65-99 [facility] Comment on above: Performed By: #### 4 8737 #### LAB [address] [address] Les Malone M.D. [id number] HCO3 (Bld) [Moles/Vol] 23.5 mmol/L Normal 22.0-26.[address] [facility] Comment on above: Performed By: #### 4 8737 ####[facility] [address] [address] Les Malone M.D. [id number] Hematocrit (Bld) [Volume fraction] 26 % Low 41-[address] [facility] Comment on above: Performed By: #### 4 8714 ####[facility] [address] [address] Les Malone M.D. [id number] Hemoglobin (Bld) [Mass/Vol] 8.8 g/dL Low 13.5-17.[address] [facility] Comment on above: Performed By: #### 4 8737 #### LAB [address] [address] Les Malone M.D. [id number] Oxygen saturation in Blood 99.0 % Normal 92.0-99.[address] [facility] Comment on above: Performed By: #### 4 8737 ####[facility] [address] [address] Les Malone M.D. [id number] PCO2 ARTERIAL 35.0 mm Hg Normal 35.0-45.[address] [facility] Comment on above: Performed By: #### 4 8737 #### LAB [address] [address] Les Malone M.D. [id number] PH ARTERIAL 7.43 Normal 7.35-7.[address] [facility] Comment on above: Performed By: #### 4 8737 ####[facility] [address] [address] Les Malone M.D. [id number] PO2 ARTERIAL 111 mm Hg High 80-[address] [facility] Comment on above: Performed By: #### 4 8737 #### LAB [address] [address] Les Malone M.D. [id number] POC IONIZED CALCIUM 4.3 mg/dL Low 4.5-5.3 [facility] Comment on above: Performed By: #### 4 8737 #### LAB [address] [address] Les aMlone M.D. [id number] Potassium [Moles/Vol] 3.3 mmol/L Low 3.5-5.1 [facility] Comment on above: Performed By: #### 4 8737 #### LAB [address] [address] Les Malone M.D. [id number] Sodium [Moles/Vol] 143 mmol/L Normal 135-145 [facility] Comment on above: Performed By: #### 4 8737 ####[facility] [address] [address] Les Malone M.D. [id number] BASE EXCESS, ARTERIAL ISTAT 0 Normal -2-[address] [facility] Comment on above: Performed By: #### 4 8737 ####[facility] [address] [address] Les Malone M.D. [id number] Glucose [Mass/Vol] 106 mg/dL High 65-99 [facility] Comment on above: Performed By: #### 4 8737 ####[facility] [address] [address] Les Malone M.D. [id number] HCO3 (Bld) [Moles/Vol] 24.6 mmol/L Normal 22.0-26.[address] [facility] Comment on above: Performed By: #### 4 8737 ####[facility] [address] [place] [address] Les Malone M.D. [id number] Hematocrit (Bld) [Volume fraction] 30 % Low 41-[address] [facility] Comment on above: Performed By: #### 4 8737 ####[facility] [address] [address] Les Malone M.D. [id number] Hemoglobin (Bld) [Mass/Vol] 10.2 g/dL Low 13.5-17.[address] [facility] Comment on above: Performed By: #### 4 8737 ####[facility] [address] [place] [address] Les Malone M.D. [id number] Oxygen saturation in Blood 98.0 % Normal 92.0-99.[address] [facility] Comment on above: Performed By: #### 4 8737 ####[facility] [address] [place] [address] Les Malone M.D. [id number] PCO2 ARTERIAL 38.6 mm Hg Normal 35.0-45.[address] [facility] Comment on above: Performed By: #### 4 8737 ####[facility] [address] [place] [address] Les Malone M.D. [id number] PH ARTERIAL 7.41 Normal 7.35-7.[address] [facility] Comment on above: Performed By: #### 4 8737 ####[facility] [address] [place] [address] Les Malone M.D. [id number] PO2 ARTERIAL 99 mm Hg Normal 80-[address] [facility] Comment on above: Performed By: #### 4 8737 ####[facility] [address] [place] [address] Les Malone M.D. [id number] POC IONIZED CALCIUM 4.4 mg/dL Low 4.5-5.3 [facility] Comment on above: Performed By: #### 4 8737 ####[facility] [address] [address] Les Malone M.D. [id number] Potassium [Moles/Vol] 3.8 mmol/L Normal 3.5-5.1 [facility] Comment on above: Performed By: #### 4 8737 ####[facility] [address] [place] [address] Les Malone M.D. [id number] Sodium [Moles/Vol] 141 mmol/L Normal 135-145 [facility] Comment on above: Performed By: #### 4 8737 ####[facility] [address] [address] Les Malone M.D. [id number] BASE EXCESS, ARTERIAL ISTAT 1 Normal -2-[address] [facility] Comment on above: Performed By: #### 4 8737 ####[facility] [address] [address] Les Malone M.D. [id number] Glucose [Mass/Vol] 93 mg/dL Normal 65-99 [facility] Comment on above: Performed By: #### 4 [id number] ####[facility] [address] [address] Les Malone M.D. [id number] HCO3 (Bld) [Moles/Vol] 24.4 mmol/L Normal 22.0-26.[address] [facility] Comment on above: Performed By: #### 4 8737 #### LAB [address] [address] Les Malone M.D. [id number] Hematocrit (Bld) [Volume fraction] 24 % Low 41-[address] [facility] Comment on above: Performed By: #### 4 8737 ####[facility] [address] [address] Les Malone M.D. [id number] Hemoglobin (Bld) [Mass/Vol] 8.2 g/dL Low 13.5-17.[address] [facility] Comment on above: Performed By: #### 4 8737 #### LAB [address] [address] Les Malone M.D. [id number] Oxygen saturation in Blood 100.0 % High 92.0-99.[address] [facility] Comment on above: Performed By: #### 4 8737 ####[facility] [address] [address] Les Malone M.D. [id number] PCO2 ARTERIAL 32.2 mm Hg Low 35.0-45.[address] [facility] Comment on above: Performed By: #### 4 8737 #### LAB [address] [address] Les Malone M.D. [id number] PH ARTERIAL 7.49 High 7.35-7.[address] [facility] Comment on above: Performed By: #### 4 8737 #### LAB [address] [address] Les Malone M.D. [id number] PO2 ARTERIAL 314 mm Hg High 80-[address] [facility] Comment on above: Performed By: #### 4 8737 ####[facility] [address] [address] Les Malone M.D. [id number] POC IONIZED CALCIUM 4.4 mg/dL Low 4.5-5.3 [facility] Comment on above: Performed By: #### 4 8737 ####[facility] [address] [address] Les Malone M.D. [id number] Potassium [Moles/Vol] 3.4 mmol/L Low 3.5-5.1 [facility] Comment on above: Performed By: #### 4 8737 ####[facility] [address] [address] Les Malone M.D. [id number] Sodium [Moles/Vol] 138 mmol/L Normal 135-145 [facility] Comment on above: Performed By: #### 4 8737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 By: #### 4 6932 ####[facility] [address] [address] Les Malone M.D. [id number] Glucose [Mass/Vol] 98 mg/dL Normal 65-99 [facility] Comment on above: Performed By: #### 4 6932 ####[facility] [address] [address] Les Malone M.D. [id number] Glucose [Mass/Vol] 111 mg/dL High [address] Comment on above: Performed By: #### 4 6932 ####[facility] [address] [address] Les Malone M.D. [id number] Glucose [Mass/Vol] 91 mg/dL Normal [address] [place] [address] Comment on above: Performed By: #### 4 6932 ####[facility] [address] [address] Les Malone M.D. [id number] Glucose [Mass/Vol] 95 mg/dL Normal [address] [place] [address] Comment on above: Performed By: #### 4 6932 ####[facility] [address] [address] Les Malone M.D. [id number] Glucose [Mass/Vol] 97 mg/dL Normal [address] [place] [address] Comment on above: Performed By: #### 4 6932 #### LAB [address] [address] Les Malone M.D. [id number] Glucose [Mass/Vol] 100 mg/dL High [address] [place] [address] Comment on above: Performed By: #### 4 6932 #### LAB [address] [address] Les Malone M.D. [id number] POTASSIUM LEVELon 01-20-2024 Potassium [Moles/Vol] 4.1 mmol/L Normal 3.5-5.1 [facility] Comment on above: Performed By: #### 4 6351 #### LAB [address] [address] Les Malone M.D. [id number] TYPE AND SCREENon 01-20-2024 TYPE AND SCREEN ABORH: O Positive AB SCREEN: Negative EXPIRATION DATE: 01/23/2024 23:59 EST Normal [facility] CBCon 01-19-2024 AUTO NRBC 0.0 % [facility] Comment on above: Performed By: #### 4 [id number] ####[facility] [address] [address] Les Malone M.D. [id number] AUTO NRBC ABS COUNT 0.00 K/mcL Normal 0.00-0.00 [facility] Comment on above: Performed By: #### 4 [id number] #### LAB [address] [address] Les Malone M.D. [id number] Erythrocyte distribution width (RBC) [Ratio] 18.0 % High 11.6-14.[address] [facility] Comment on above: Performed By: #### 4 [id number] #### LAB [address] [address] Les Malone M.D. [id number] Hematocrit (Bld) [Volume fraction] 24.2 % Low 41.0-53.[address] [facility] Comment on above: Performed By: #### 4 [id number] #### LAB [address] [address] Les Malone M.D. [id number] Hemoglobin (Bld) [Mass/Vol] 7.5 g/dL Low 13.5-17.[address] [facility] Comment on above: Performed By: #### 4 [id number] #### LAB [address] [address] Les Malone M.D. [id number] MCH (RBC) [Entitic mass] 29.3 pg Normal 26.0-34.[address] [facility] Comment on above: Performed By: #### 4 [id number] #### LAB [address] [address] Les Malone M.D. [id number] MCV (RBC) [Entitic vol] 94.5 fL Normal 80.0-100.[address] [facility] Comment on above: Performed By: #### 4 [id number] #### LAB [address] [address] Les Malone M.D. [id number] MEAN CORPUSCULAR HEMOGLOBIN CONC 31.0 g/dL Normal 31.0-37.[address] [facility] Comment on above: Performed By: #### 4 [id number] #### LAB [address] [address] Les Malone M.D. [id number] Platelet mean volume (Bld) [Entitic vol] 11.2 fL Normal 9.4-12.[address] [facility] Comment on above: Performed By: #### 4 [id number] #### LAB [address] [address] Les Malone M.D. [id number] Platelets (Bld) [#/Vol] 431 10*3/uL High 150-[address] [facility] Comment on above: Performed By: #### 4 [id number] ####[facility] [address] [address] Les Malone M.D. [id number] RBC (Bld) [#/Vol] 2.56 10*6/uL Low 4.50-5.90 [facility] Comment on above: Performed By: #### 4 [id number] #### LAB [address] [address] Les Malone M.D. [id number] WBC (Bld) [#/Vol] 7.98 10*3/uL Normal 4.50-11.00 [facility] Comment on above: Performed By: #### 4 [id number] ####[facility] [address] [address] Les Malone M.D. [id number] CHEM 701-19-2024 Anion gap [Moles/Vol] 15 mmol/L Normal 10-20 [facility] Comment on above: Order Comment: [facility] Services has implemented the eGFR calculation approach that does not have a coefficient for race that conforms to the NKF-ASN Task Force Recommendations. Performed By: #### 4 6953 #### LAB [address] [place], [place] [address] Les Malone M.D. [id number] Chloride [Moles/Vol] 106 mmol/L Normal 98-108 [facility] Comment on above: Order Comment: [facility] Services has implemented the eGFR calculation approach that does not have a coefficient for race that conforms to the NKF-ASN Task Force Recommendations. Performed By: #### 4 6953 #### LAB [address] [place], [place] [address] Les Malone M.D. [id number] Creatinine [Mass/Vol] 0.53 mg/dL Normal 0.50-1.30 [facility] Comment on above: Order Comment: [facility] Services has implemented the eGFR calculation approach that does not have a coefficient for race that conforms to the NKF-ASN Task Force Recommendations. Performed By: #### 4 6953 #### LAB [address] [address] Les Malone M.D. [id number] EGFR 126 mL/min/1.73 m2 Normal >=60 [facility] Comment on above: Order Comment: [facility] has implemented the eGFR calculation approach that does not have a coefficient for race that conforms to the NKF-ASN Task Force Recommendations. Result Comment: Fanta mated GFR was calculated using the 2020 CKD-EPI creatinine equation. Performed By: #### 4 6953 ####[facility] [address] [address] Les Malone M.D. [id number] Glucose [Mass/Vol] 85 mg/dL Normal 65-99 [facility] Comment on above: Order Comment: [facility] has implemented the eGFR calculation approach that does not have a coefficient for race that conforms to the NKF-ASN Task Force Recommendations. Performed By: #### 4 6953 #### LAB [address] [address] Les Malone M.D. [id number] HCO3 (Bld) [Moles/Vol] 22 mmol/L Normal 21-[address] [facility] Comment on above: Order Comment: [facility] Services has implemented the eGFR calculation approach that does not have a coefficient for race that conforms to the NKF-ASN Task Force Recommendations. Performed By: #### 4 6953 ####[facility] [address] [address] Les Malone M.D. [id number] Potassium [Moles/Vol] 3.9 mmol/L Normal 3.5-5.1 [facility] Comment on above: Order Comment: [facility] Services has implemented the eGFR calculation approach that does not have a coefficient for race that conforms to the NKF-ASN Task Force Recommendations. Performed By: #### 4 6953 #### LAB [address] [place], [place] [address] Les Malone M.D. [id number] Sodium [Moles/Vol] 139 mmol/L Normal 135-145 [facility] Comment on above: Order Comment: [facility] has implemented the eGFR calculation approach that does not have a coefficient for race that conforms to the NKF-ASN Task Force Recommendations. Performed By: #### 4 6953 #### LAB [address] [place], [place] [address] Les Malone M.D. [id number] Urea nitrogen [Mass/Vol] 27 mg/dL High 8-[address] [facility] Comment on above: Order Comment: [facility] has implemented the eGFR calculation approach that does not have a coefficient for race that conforms to the NKF-ASN Task Force Recommendations. Performed By: #### 4 6953 #### LAB [address] [place], [place] [address] Les Malone M.D. [id number] Urea nitrogen/Creatinine [Mass ratio] 50.9 mg/mg High 10.0-20.[address] [facility] Comment on above: Order Comment: [facility] has implemented the eGFR calculation approach that does not have a coefficient for race that conforms to the NKF-ASN Task Force Recommendations. Performed By: #### 4 6953 #### LAB [address] [place], [place] [address] Les Malone M[address]D. [id number] CT CERVICAL SPINE WITHOUT CO NTRASTon 01-19-2024 CT CERVICAL SPINE WITHOUT CONTRAST Normal [facility] Comment on above: Order Comment: Injur y/Trauma or Illness?:Injury/TraumaHow long have you had these symptoms (acute/chronic)?:AcuteReason for exam?:f/u c-spine fxType of Exam?:Subsequent/Follow-upMechanism of injury?:. CT THORACIC SPINE WITHOUT CO NTRASTon 01-19-2024 CT THORACIC SPINE WITHOUT CONTRAST Normal [facility] Comment on above: Order Comment: Injur y/Trauma or Illness?:Injury/TraumaHow long have you had these symptoms (acute/chronic)?:AcuteReason for exam?:f/u t-spine fxType of Exam?:Subsequent/Follow-upMechanism of injury?:. MAGNESIUM LEVELon 01-19-2024 Magnesium [Mass/Vol] 2.2 mg/dL Normal 1.6-2.4 [facility] Comment on above: Performed By: #### 4 6109 ####[facility] [address] [address] Les Malone M.D. [id number] PHOSPHORUSon 01-19-2024 Phosphate [Mass/Vol] 3.4 mg/dL Normal 2.7-4.5 [facility] Comment on above: Performed By: #### 4 6299 ####[facility] [address] [address] Les Malone M.D. [id number] POC ARTERIAL BLOOD GAS PANEL -[facility] 01-19-2024 [id number] 89.6 mm Hg Normal [facility] Comment on above: Performed By: #### 4 [id number] ####[facility] [address] [address] Les Malone M.D. [id number] BASE EXCESS, ARTERIAL 1.9 Normal -2.0-2.0 [facility] Comment on above: Performed By: #### 4 [id number] ####[facility] [address] [address] Les Malone M.D. [id number] FIO2 [address] [facility] Comment on above: Performed By: #### 4 [id number] #### LAB [address] [address] Les Malone M.D. [id number] HCO3 (Bld) [Moles/Vol] 25.0 mmol/L Normal 22.0-26.[address] [facility] Comment on above: Performed By: #### 4 [id number] ####[facility] [address] [address] Les Malone M.D. [id number] Hematocrit (Bld) [Volume fraction] 25.2 % Low 41.0-53.[address] [facility] Comment on above: Performed By: #### 4 [id number] #### LAB [address] [address] Les Malone M.D. [id number] Hemoglobin (Bld) [Mass/Vol] 8.2 g/dL Low 13.5-17.[address] [facility] Comment on above: Performed By: #### 4 [id number] #### LAB [address] [address] Les Malone M.D. [id number] Oxygen saturation in Blood 99.6 % High 92.0-99.[address] [facility] Comment on above: Performed By: #### 4 8716 #### LAB [address] [address] Les Malone M.D. [id number] PCO2 ARTERIAL 31.9 mm Hg Low 35.0-45.[address] [facility] Comment on above: Performed By: #### 4 [id number] #### LAB [address] [address] Les Malone M.D. [id number] PEEP RAD 5 [facility] Comment on above: Performed By: #### 4 [id number] #### LAB [address] [address] Les Malone M.D. [id number] PH ARTERIAL 7.50 High 7.35-7.[address] [facility] Comment on above: Performed By: #### 4 [id number] #### LAB [address] [address] Les Malone M.D. [id number] PO2 ARTERIAL 148 mm Hg High 80-[address] [facility] Comment on above: Performed By: #### 4 [id number] #### LAB [address] [address] Les Malone M.D. [id number] RESP RATE RAD 20 [facility] Comment on above: Performed By: #### 4 [id number] #### LAB [address] [address] Les Malone M.D. [id number] SPECIMEN SOURCE RADIANCE Not specified [facility] Comment on above: Performed By: #### 4 [id number] #### LAB [address] [address] Les Malone M.D. [id number] TIDAL VOLUME RAD 480 [facility] Comment on above: Performed By: #### 4 [id number] #### LAB [address] [address] Les Malone M.D. [id number] POC GLUCOSE [facility] 024 Glucose [Mass/Vol] 98 mg/dL Normal [address] [place] [address] Comment on above: Performed By: #### 4 6932 #### LAB [address] [address] Les Malone M.D. [id number] Glucose [Mass/Vol] 98 mg/dL Normal [address] [place] [address] Comment on above: Performed By: #### 4 6932 #### LAB [address] [address] Les Malone M.D. [id number] Glucose [Mass/Vol] 83 mg/dL Normal [address] [place] [address] Comment on above: Performed By: #### 4 6932 #### LAB [address] [address] Les Malone M.D. [id number] Glucose [Mass/Vol] 93 mg/dL Normal [address] [place] [address] Comment on above: Performed By: #### 4 6932 #### LAB [address] [address] Les Malone M.D. [id number] XR ABDOMINAL TUBE CONTRAST I NJECTIONon 01-19-2024 XR ABDOMINAL TUBE CONTRAST INJECTION [facility] Comment on above: Order Comment: water soluable contrastInjury/Trauma or Illness?:Illness/OtherHow long have you had these symptoms (acute/chronic)?:AcuteReason for exam?:PEG tube evaluationHistory of cancer?:uSurgeries, chemotherapy, or radiation?:uType of Exam?:InitialAdditional signs and symptoms?:. CBCon 01-18-2024 AUTO NRBC 0.0 % Normal [facility] Comment on above: Performed By: #### 4 [id number] #### LAB [address] [address] Les Malone M.D. [id number] AUTO NRBC ABS COUNT 0.00 K/mcL Normal 0.00-0.00 [facility] Comment on above: Performed By: #### 4 [id number] ####[facility] [address] [address] Les Malone M.D. [id number] Erythrocyte distribution width (RBC) [Ratio] 18.4 % High 11.6-14.[address] [facility] Comment on above: Performed By: #### 4 [id number] #### LAB [address] [address] Les Malone M.D. [id number] Hematocrit (Bld) [Volume fraction] 25.4 % Low 41.0-53.[address] [facility] Comment on above: Performed By: #### 4 [id number] #### LAB [address] [address] Les Malone M.D. [id number] Hemoglobin (Bld) [Mass/Vol] 7.8 g/dL Low 13.5-17.[address] [facility] Comment on above: Performed By: #### 4 [id number] #### LAB [address] [address] Les Malone M.D. [id number] MCH (RBC) [Entitic mass] 29.2 pg Normal 26.0-34.[address] [facility] Comment on above: Performed By: #### 4 [id number] #### LAB [address] [address] Les Malone M.D. [id number] MCV (RBC) [Entitic vol] 95.1 fL Normal 80.0-100.[address] [facility] Comment on above: Performed By: #### 4 5218 #### LAB [address] [address] Les Malone M.D. [id number] MEAN CORPUSCULAR HEMOGLOBIN CONC 30.7 g/dL Low 31.0-37.[address] [facility] Comment on above: Performed By: #### 4 [id number] #### LAB [address] [address] Les Malone M.D. [id number] Platelet mean volume (Bld) [Entitic vol] 11.5 fL Normal 9.4-12.[address] [facility] Comment on above: Performed By: #### 4 [id number] #### LAB [address] [address] Les Malone M.D. [id number] Platelets (Bld) [#/Vol] 395 10*3/uL Normal 150-[address] [facility] Comment on above: Performed By: #### 4 [id number] #### LAB [address] [address] Les Malone M.D. [id number] RBC (Bld) [#/Vol] 2.67 10*6/uL Low 4.50-5.90 [facility] Comment on above: Performed By: #### 4 [id number] #### LAB [address] [address] Les Malone M.D. [id number] WBC (Bld) [#/Vol] 11.18 10*3/uL High 4.50-11.00 [facility] Comment on above: Performed By: #### 4 [id number] ####[facility] [address] [address] Les Malone M.D. [id number] CHEM 701-18-2024 Anion gap [Moles/Vol] 16 mmol/L Normal 10-20 [facility] Comment on above: Order Comment: [facility] Services has implemented the eGFR calculation approach that does not have a coefficient for race that conforms to the NKF-ASN Task Force Recommendations. Performed By: #### 4 [id number] #### LAB [address] [address] Les Malone M.D. [id number] Chloride [Moles/Vol] 106 mmol/L Normal 98-108 [facility] Comment on above: Order Comment: [facility] Services has implemented the eGFR calculation approach that does not have a coefficient for race that conforms to the NKF-ASN Task Force Recommendations. Performed By: #### 4 6953 #### LAB [address] [address] Les Malone M.D. [id number] Creatinine [Mass/Vol] 0.56 mg/dL Normal 0.50-1.30 [facility] Comment on above: Order Comment: [facility] Services has implemented the eGFR calculation approach that does not have a coefficient for race that conforms to the NKF-ASN Task Force Recommendations. Performed By: #### 4 6953 #### LAB [address] [address] Les Malone M.D. [id number] EGFR 124 mL/min/1.73 m2 Normal >=60 [facility] Comment on above: Order Comment: [facility] has implemented the eGFR calculation approach that does not have a coefficient for race that conforms to the NKF-ASN Task Force Recommendations. Result Comment: Fanta mated GFR was calculated using the 2020 CKD-EPI creatinine equation. Performed By: #### 4 6953 ####[facility] [address] [address] Les Malone M.D. [id number] Glucose [Mass/Vol] 108 mg/dL High 65-99 [facility] Comment on above: Order Comment: [facility] Services has implemented the eGFR calculation approach that does not have a coefficient for race that conforms to the NKF-ASN Task Force Recommendations. Performed By: #### 4 6953 #### LAB [address] [address] Les Malone M.D. [id number] HCO3 (Bld) [Moles/Vol] 21 mmol/L Normal 21-[address] [facility] Comment on above: Order Comment: [facility] Services has implemented the eGFR calculation approach that does not have a coefficient for race that conforms to the NKF-ASN Task Force Recommendations. Performed By: #### 4 6953 #### LAB [address] [place], [place] [address] Les Malone M.D. [id number] Potassium [Moles/Vol] 4.0 mmol/L Normal 3.5-5.1 [facility] Comment on above: Order Comment: [facility] has implemented the eGFR calculation approach that does not have a coefficient for race that conforms to the NKF-ASN Task Force Recommendations. Performed By: #### 4 6953 #### LAB [address] [place], [place] [address] Les Malone M.D. [id number] Sodium [Moles/Vol] 139 mmol/L Normal 135-145 [facility] Comment on above: Order Comment: [facility] has implemented the eGFR calculation approach that does not have a coefficient for race that conforms to the NKF-ASN Task Force Recommendations. Performed By: #### 4 [id number] #### LAB [address] [address] Les Malone M.D. [id number] Urea nitrogen [Mass/Vol] 33 mg/dL High 8-[address] [facility] Comment on above: Order Comment: [facility] has implemented the eGFR calculation approach that does not have a coefficient for race that conforms to the NKF-ASN Task Force Recommendations. Performed By: #### 4 6953 ####[facility] [address] [place], [place] [address] Les Malone M.D. [id number] Urea nitrogen/Creatinine [Mass ratio] 58.9 mg/mg High 10.0-20.[address] [facility] Comment on above: Order Comment: [facility] has implemented the eGFR calculation approach that does not have a coefficient for race that conforms to the NKF-ASN Task Force Recommendations. Performed By: #### 4 6953 #### LAB [address] [place] [address] Les Malone M.D. [id number] MAGNESIUM LEVELon 01-18-2024 Magnesium [Mass/Vol] 2.2 mg/dL Normal 1.6-2.4 [facility] Comment on above: Performed By: #### 4 6109 ####[facility] [address] [place] [address] Les Malone M.D. [id number] PHOSPHORUSon 01-18-2024 Phosphate [Mass/Vol] 3.9 mg/dL Normal 2.7-4.5 [facility] Comment on above: Performed By: #### 4 6299 ####[facility] [address] [place] [address] Les Malone M.D. [id number] Phosphate [Mass/Vol] 4.0 mg/dL Normal 2.7-4.5 [facility] Comment on above: Performed By: #### 4 6299 #### LAB [address] [place] [address] Les Malone M.D. [id number] POC ARTERIAL BLOOD G[facility]EL [facility] 01-18-2024 [id number] 135.3 mm Hg Normal [facility] Comment on above: Performed By: #### 4 [id number] ####[facility] [address] [place] [address] Les Malone M.D. [id number] BASE EXCESS, ARTERIAL 0.8 Normal -2.0-2.0 [facility] Comment on above: Performed By: #### 4 8716 ####[facility] [address] [place] [id number] Les Malone M.D. [id number] FIO2 [address] [facility] Comment on above: Performed By: #### 4 8716 ####[facility] [address] [place] [address] Les Malone M.D. [id number] HCO3 (Bld) [Moles/Vol] 23.5 mmol/L Normal 22.0-26.[address] [facility] Comment on above: Performed By: #### 4 [id number] #### LAB [address] [place] [address] Les Malone M.D. [id number] Hematocrit (Bld) [Volume fraction] 26.2 % Low 41.0-53.[address] [facility] Comment on above: Performed By: #### 4 [id number] #### LAB [address] [place] [address] Les Malone M.D. [id number] Hemoglobin (Bld) [Mass/Vol] 8.5 g/dL Low 13.5-17.[address] [facility] Comment on above: Performed By: #### 4 [id number] #### LAB [address] [place] [address] Les Malone M.D. [id number] Oxygen saturation in Blood 99.2 % High 92.0-99.[address] [facility] Comment on above: Performed By: #### 4 [id number] #### LAB [address] [place] [address] Les Malone M.D. [id number] PCO2 ARTERIAL 29.6 mm Hg Low 35.0-45.[address] [facility] Comment on above: Performed By: #### 4 8716 ####[facility] [address] [place] [address] Les Malone M.D. [id number] PEEP RAD [address] [facility] Comment on above: Performed By: #### 4 [id number] ####[facility] [address] [place] [address] Les Malone M.D. [id number] PH ARTERIAL 7.51 High 7.35-7.[address] [facility] Comment on above: Performed By: #### 4 [id number] ####[facility] [address] [place] [address] Les Malone M.D. [id number] PO2 ARTERIAL 105 mm Hg High 80-[address] [facility] Comment on above: Performed By: #### 4 [id number] ####[facility] [address] [place] [address] Les Malone M.D. [id number] RESP RATE RAD 22 [facility] Comment on above: Performed By: #### 4 [id number] #### LAB [address] [place] [address] Les Malone M.D. [id number] SPECIMEN SOURCE RADIANCE Not specified [facility] Comment on above: Performed By: #### 4 [id number] ####[facility] [address] [place] [address] Les Malone M.D. [id number] TIDAL VOLUME RAD 480 [facility] Comment on above: Performed By: #### 4 [id number] ####[facility] [address] [place] [address] Les Malone M.D. [id number] POC GLUCOSE [facility] 024 Glucose [Mass/Vol] 95 mg/dL Normal [address] [place] [address] Comment on above: Performed By: #### 4 6932 ####[facility] [address] [place] [address] Les Malone M.D. [id number] Glucose [Mass/Vol] 96 mg/dL Normal [address] [place] [address] Comment on above: Performed By: #### 4 6932 #### LAB [address] [place] [address] Les Malone M.D. [id number] Glucose [Mass/Vol] 93 mg/dL Normal [address] [place] [address] Comment on above: Performed By: #### 4 6932 #### LAB [address] [place] [address] Les Malone M.D. [id number] Glucose [Mass/Vol] 100 mg/dL High [address] [place] [address] Comment on above: Performed By: #### 4 6932 ####[facility] [address] [place] [address] Les Malone M.D. [id number] Glucose [Mass/Vol] 103 mg/dL High [address] [place] [address] Comment on above: Performed By: #### 4 6932 #### LAB [address] [place] [address] Les Malone M.D. [id number] Glucose [Mass/Vol] 117 mg/dL High [address] [place] [address] Comment on above: Performed By: #### 4 6932 ####[facility] [address] [place] [address] Les Malone M.D. [id number] Glucose [Mass/Vol] 105 mg/dL High [facility] Comment on above: Performed By: #### 4 6932 #### LAB [address] [place] [address] Les Malone M.D. [id number] POTASSIUM LEVELon 01-18-2024 Potassium [Moles/Vol] 3.8 mmol/L Normal 3.5-5.1 [facility] Comment on above: Performed By: #### 4 6351 #### LAB [address] [place] [address] Les Malone M.D. [id number] CALCIUM, IONIZEDon CALCIUM IONIZED 4.4 mg/dL Low 4.5-5.[address] [facility] Comment on above: Performed By: #### 4 5190 #### LAB [address] [place] [address] Les Malone M.D. [id number] CBCon 01-17-2024 AUTO NRBC 0.0 % Normal [facility] Comment on above: Performed By: #### 4 [id number] #### LAB [address] [place] [address] Les Malone M.D. [id number] AUTO NRBC ABS COUNT 0.00 K/mcL Normal 0.00-0.00 [facility] Comment on above: Performed By: #### 4 [id number] #### LAB [address] [place] [address] Les Malone M.D. [id number] Erythrocyte distribution width (RBC) [Ratio] 18.9 % High 11.6-14.[address] [facility] Comment on above: Performed By: #### 4 [id number] #### LAB [address] [place] [address] Les Malone M.D. [id number] Hematocrit (Bld) [Volume fraction] 24.0 % Low 41.0-53.[address] [facility] Comment on above: Performed By: #### 4 [id number] #### LAB [address] [place] [address] Les Malone M.D. [id number] Hemoglobin (Bld) [Mass/Vol] 7.4 g/dL Low 13.5-17.[address] [facility] Comment on above: Performed By: #### 4 [id number] #### LAB [address] [place] [address] Les Malone M.D. [id number] MCH (RBC) [Entitic mass] 29.6 pg Normal 26.0-34.[address] [facility] Comment on above: Performed By: #### 4 [id number] #### LAB [address] [place] [address] Les Malone M.D. [id number] MCV (RBC) [Entitic vol] 96.0 fL Normal 80.0-100.[address] [facility] Comment on above: Performed By: #### 4 [id number] #### LAB [address] [place] [address] Les Malone M.D. [id number] MEAN CORPUSCULAR HEMOGLOBIN CONC 30.8 g/dL Low 31.0-37.[address] [facility] Comment on above: Performed By: #### 4 [id number] #### LAB [address] [place] [address] Les Malone M.D. [id number] Platelet mean volume (Bld) [Entitic vol] 11.2 fL Normal 9.4-12.[address] [facility] Comment on above: Performed By: #### 4 [id number] #### LAB [address] [place] [address] Les Malone M.D. [id number] Platelets (Bld) [#/Vol] 384 10*3/uL Normal 150-[address] [facility] Comment on above: Performed By: #### 4 [id number] #### LAB [address] [place], [place] [address] Les Malone M.D. [id number] RBC (Bld) [#/Vol] 2.50 10*6/uL Low 4.50-5.90 [facility] Comment on above: Performed By: #### 4 [id number] #### LAB [address] [place], [place] [address] Les Malone M.D. [id number] WBC (Bld) [#/Vol] 13.95 10*3/uL High 4.50-11.00 [facility] Comment on above: Performed By: #### 4 [id number] #### LAB [address] [place], [place] [address] Les Malone M.D. [id number] CHEM 01-17-2024 Anion gap [Moles/Vol] 14 mmol/L Normal 10-20 [facility] Comment on above: Order Comment: [facility] has implemented the eGFR calculation approach that does not have a coefficient for race that conforms to the NKF-ASN Task Force Recommendations. Performed By: #### 4 6953 #### LAB [address] [place], [place] [address] Les Malone M.D. [id number] Chloride [Moles/Vol] 107 mmol/L Normal 98-108 [facility] Comment on above: Order Comment: [facility] has implemented the eGFR calculation approach that does not have a coefficient for race that conforms to the NKF-ASN Task Force Recommendations. Performed By: #### 4 6953 #### LAB [address] [place], [place] [address] Les Malone M.D. [id number] Creatinine [Mass/Vol] 0.64 mg/dL Normal 0.50-1.30 [facility] Comment on above: Order Comment: [facility] has implemented the eGFR calculation approach that does not have a coefficient for race that conforms to the NKF-ASN Task Force Recommendations. Performed By: #### 4 6953 #### LAB [address] [place] [address] Les Malone M.D. [id number] EGFR 119 mL/min/1.73 m2 Normal >=60 [facility] Comment on above: Order Comment: [facility] has implemented the eGFR calculation approach that does not have a coefficient for race that conforms to the NKF-ASN Task Force Recommendations. Result Comment: Fanta mated GFR was calculated using the 2020 CKD-EPI creatinine equation. Performed By: #### 4 6953 #### LAB [address] [place] [address] Les Malone M.D. [id number] Glucose [Mass/Vol] 125 mg/dL High 65-99 [facility] Comment on above: Order Comment: [facility] has implemented the eGFR calculation approach that does not have a coefficient for race that conforms to the NKF-ASN Task Force Recommendations. Performed By: #### 4 6953 #### LAB [address] [place] [address] Les Malone M.D. [id number] HCO3 (Bld) [Moles/Vol] 20 mmol/L Low 21-[address] [facility] Comment on above: Order Comment: [facility] has implemented the eGFR calculation approach that does not have a coefficient for race that conforms to the NKF-ASN Task Force Recommendations. Performed By: #### 4 6953 #### LAB [address] [place] [address] Les Malone M.D. [id number] Potassium [Moles/Vol] 4.0 mmol/L Normal 3.5-5.1 [facility] Comment on above: Order Comment: [facility] has implemented the eGFR calculation approach that does not have a coefficient for race that conforms to the NKF-ASN Task Force Recommendations. Performed By: #### 4 6953 #### LAB [address] [place] [address] Les Malone M.D. [id number] Sodium [Moles/Vol] 137 mmol/L Normal 135-145 [facility] Comment on above: Order Comment: [facility] has implemented the eGFR calculation approach that does not have a coefficient for race that conforms to the NKF-ASN Task Force Recommendations. Performed By: #### 4 6953 #### LAB [address] [place] [address] Les Malone M.D. [id number] Urea nitrogen [Mass/Vol] 38 mg/dL High 8-[address] [facility] Comment on above: Order Comment: [facility] has implemented the eGFR calculation approach that does not have a coefficient for race that conforms to the NKF-ASN Task Force Recommendations. Performed By: #### 4 6953 #### LAB [address] [place] [address] Les Malone M.D. [id number] Urea nitrogen/Creatinine [Mass ratio] 59.4 mg/mg High 10.0-20.[address] [facility] Comment on above: Order Comment: [facility] has implemented the eGFR calculation approach that does not have a coefficient for race that conforms to the NKF-ASN Task Force Recommendations. Performed By: #### 4 6953 #### LAB [address] [place] [address] Les Malone M.D. [id number] CT CHEST ABDOMEN PELVIS WITH IV CONTRAST ONLYon 01-17-2024 CT CHEST ABDOMEN PELVIS WITH IV CONTRAST ONLY Normal [facility] Comment on above: Order Comment: Injur y/Trauma or Illness?:Illness/OtherHow long have you had these symptoms (acute/chronic)?:AcuteReason for exam?:Sepsis. Dr Hedrick verified IJ placement for CT injectionType of Exam?:InitialAdditional signs and symptoms?:pt unable to raise arms over head for scan. on vent MAGNESIUM LEVELon 01-17-2024 Magnesium [Mass/Vol] 2.1 mg/dL Normal 1.6-2.4 [facility] Comment on above: Performed By: #### 4 6109 #### LAB [address] [place] [address] Les Malone M.D. [id number] PHOSPHORUSon 01-17-2024 Phosphate [Mass/Vol] 2.5 mg/dL Low 2.7-4.5 [facility] Comment on above: Performed By: #### 4 6299 ####[facility] [address] [place] [address] Les Malone M.D. [id number] POC ARTERIAL BLOOD GAS PANEL -[facility] 01-17-2024 [id number] 148.6 mm Hg Normal [facility] Comment on above: Performed By: #### 4 8716 ####[facility] [address] [place] [address] Les Malone M.D. [id number] BASE EXCESS, ARTERIAL -0.2 Normal -2.0-2.0 [facility] Comment on above: Performed By: #### 4 8716 ####[facility] [address] [place] [address] Les Malone M.D. [id number] FIO2 [address] [facility] Comment on above: Performed By: #### 4 8716 ####[facility] [address] [place] [address] Les Malone M.D. [id number] HCO3 (Bld) [Moles/Vol] 22.4 mmol/L Normal 22.0-26.[address] [facility] Comment on above: Performed By: #### 4 8716 #### LAB [address] [place] [address] Les Malone M.D. [id number] Hematocrit (Bld) [Volume fraction] 27.7 % Low 41.0-53.[address] [facility] Comment on above: Performed By: #### 4 8716 #### LAB [address] [place] [address] Les Malone M.D. [id number] Hemoglobin (Bld) [Mass/Vol] 9.0 g/dL Low 13.5-17.[address] [facility] Comment on above: Performed By: #### 4 8716 ####[facility] [address] [place] [address] Les Malone M.D. [id number] Oxygen saturation in Blood 98.3 % Normal 92.0-99.[address] [facility] Comment on above: Performed By: #### 4 8716 ####[facility] [address] [place] [address] Les Malone M.D. [id number] PCO2 ARTERIAL 28.6 mm Hg Low 35.0-45.[address] [facility] Comment on above: Performed By: #### 4 8716 ####[facility] [address] [place] [address] Les Malone M.D. [id number] PEEP RAD 5 [facility] Comment on above: Performed By: #### 4 8716 ####[facility] [address] [place] [address] Les Malone M.D. [id number] PH ARTERIAL 7.50 High 7.35-7.[address] [facility] Comment on above: Performed By: #### 4 8716 ####[facility] [address] [place] [address] Les Malone M.D. [id number] PO2 ARTERIAL 92 mm Hg Normal 80-[address] [facility] Comment on above: Performed By: #### 4 8716 ####[facility] [address] [place] [address] Les Malone M.D. [id number] RESP RATE RAD [address] [facility] Comment on above: Performed By: #### 4 8716 ####[facility] [address] [place] [address] Les Malone M.D. [id number] SPECIMEN SOURCE RADIANCE Not specified [facility] Comment on above: Performed By: #### 4 [id number] #### LAB [address] [place] [address] Les Malone M.D. [id number] TIDAL VOLUME RAD 480 Normal [facility] Comment on above: Performed By: #### 4 8716 ####[facility] [address] [place] [address] Les Malone M.D. [id number] POC GLUCOSE - [facility] 024 Glucose [Mass/Vol] 117 mg/dL High [address] [place] [address] Comment on above: Performed By: #### 4 6932 ####[facility] [address] [place] [address] Les Malone M.D. [id number] Glucose [Mass/Vol] 112 mg/dL High [address] [place] [address] Comment on above: Performed By: #### 4 6932 ####[facility] [address] [place] [address] Les Malone M.D. [id number] Glucose [Mass/Vol] 126 mg/dL [address] Comment on above: Performed By: #### 4 6932 #### LAB [address] [place] [address] Les Malone M.D. [id number] SPUTUM AEROBIC CULTUREon SPUTUM AEROBIC CULTURE RESPIRATORY CULTURE Normal Wally after 48 hrs GRAM STAIN RESULT Many WBC Few Epithelial Cells Few Gram Positive Cocci [facility] Comment on above: Performed By: #### 4 4046 ####[facility] [address] [place] [address] Yonny Toro M.D. [id number] XR ABDOMEN /KUB/FLAT PLATE/1 VIEWon 01-17-2024 XR ABDOMEN /KUB/FLAT PLATE/1 VIEW [facility] Comment on above: Order Comment: Injur y/Trauma or Illness?:Illness/OtherHow long have you had these symptoms (acute/chronic)?:AcuteReason for exam?:NG/OT placementHistory of cancer?:uSurgeries, chemotherapy, or radiation?:uType of Exam?:InitialAdditional signs and symptoms?:. XR CHEST PA/APon 01-17-2024 XR CHEST PA/AP [facility] Comment on above: Order Comment: Injur y/Trauma or Illness?:Illness/OtherHow long have you had these symptoms (acute/chronic)?:AcuteReason for exam?:sobHistory of cancer?:uSurgeries, chemotherapy, or radiation?:uType of Exam?:InitialAdditional signs and symptoms?:. CBCon 01-16-2024 AUTO NRBC 0.0 % Normal [facility] Comment on above: Performed By: #### 4 [id number] #### LAB [address] [place] [address] Les Malone M.D. [id number] AUTO NRBC ABS COUNT 0.00 K/mcL Normal 0.00-0.00 [facility] Comment on above: Performed By: #### 4 [id number] #### LAB [address] [place] [address] Les Malone M.D. [id number] Erythrocyte distribution width (RBC) [Ratio] 19.7 % High 11.6-14.[address] [facility] Comment on above: Performed By: #### 4 5218 #### LAB [address] [place] [address] Les Malone M.D. [id number] Hematocrit (Bld) [Volume fraction] 25.1 % Low 41.0-53.[address] [facility] Comment on above: Performed By: #### 4 5218 #### LAB [address] [place] [address] Les Malone M.D. [id number] Hemoglobin (Bld) [Mass/Vol] 7.7 g/dL Low 13.5-17.[address] [facility] Comment on above: Performed By: #### 4 5218 #### LAB [address] [place] [address] Les Malone M.D. [id number] MCH (RBC) [Entitic mass] 29.8 pg Normal 26.0-34.[address] [facility] Comment on above: Performed By: #### 4 5263 #### LAB [address] [place] [address] Les Malone M.D. [id number] MCV (RBC) [Entitic vol] 97.3 fL Normal 80.0-100.[address] [facility] Comment on above: Performed By: #### 4 0797 ####[facility] [address] [place] [address] Les Malone M.D. [id number] MEAN CORPUSCULAR HEMOGLOBIN CONC 30.7 g/dL Low 31.0-37.[address] [facility] Comment on above: Performed By: #### 4 5218 #### LAB [address] [place] [address] Les Malone M.D. [id number] Platelet mean volume (Bld) [Entitic vol] 10.9 fL Normal 9.4-12.[address] [facility] Comment on above: Performed By: #### 4 5218 #### LAB [address] [place] [address] Les Malone M.D. [id number] Platelets (Bld) [#/Vol] 399 10*3/uL Normal 150-[address] [facility] Comment on above: Performed By: #### 4 5218 #### LAB [address] [place] [address] Les Malone M.D. [id number] RBC (Bld) [#/Vol] 2.58 10*6/uL Low 4.50-5.90 [facility] Comment on above: Performed By: #### 4 5218 #### LAB [address] [place] [address] Les Malone M.D. [id number] WBC (Bld) [#/Vol] 13.79 10*3/uL High 4.50-11.00 [facility] Comment on above: Performed By: #### 4 [id number] #### LAB [address] [place] [address] Les Malone M.D. [id number] CHEM 01-16-2024 Anion gap [Moles/Vol] 14 mmol/L Normal 10-20 [facility] Comment on above: Order Comment: [facility] has implemented the eGFR calculation approach that does not have a coefficient for race that conforms to the NKF-ASN Task Force Recommendations. Performed By: #### 4 6953 #### LAB [address] [place] [address] Les Malone M.D. [id number] Chloride [Moles/Vol] 109 mmol/L High 98-108 [facility] Comment on above: Order Comment: [facility] has implemented the eGFR calculation approach that does not have a coefficient for race that conforms to the NKF-ASN Task Force Recommendations. Performed By: #### 4 6953 ####[facility] [address] [place] [address] Les Malone M.D. [id number] Creatinine [Mass/Vol] 0.60 mg/dL Normal 0.50-1.30 [facility] Comment on above: Order Comment: [facility] has implemented the eGFR calculation approach that does not have a coefficient for race that conforms to the NKF-ASN Task Force Recommendations. Performed By: #### 4 6953 ####[facility] [address] [place] [address] Les Malone M.D. [id number] EGFR 121 mL/min/1.73 m2 Normal >=60 [facility] Comment on above: Order Comment: [facility] has implemented the eGFR calculation approach that does not have a coefficient for race that conforms to the NKF-ASN Task Force Recommendations. Result Comment: Fanta mated GFR was calculated using the 2020 CKD-EPI creatinine equation. Performed By: #### 4 6953 ####[facility] [address] [place] [address] Les Malone M.D. [id number] Glucose [Mass/Vol] 117 mg/dL High 65-99 [facility] Comment on above: Order Comment: [facility] has implemented the eGFR calculation approach that does not have a coefficient for race that conforms to the NKF-ASN Task Force Recommendations. Performed By: #### 4 6953 ####[facility] [address] [place] [address] Les Malone M.D. [id number] HCO3 (Bld) [Moles/Vol] 21 mmol/L Normal 21-[address] [facility] Comment on above: Order Comment: [facility] has implemented the eGFR calculation approach that does not have a coefficient for race that conforms to the NKF-ASN Task Force Recommendations. Performed By: #### 4 6953 #### LAB [address] [place], [place] [address] Les Malone M.D. [id number] Potassium [Moles/Vol] 3.9 mmol/L Normal 3.5-5.1 [facility] Comment on above: Order Comment: [facility] has implemented the eGFR calculation approach that does not have a coefficient for race that conforms to the NKF-ASN Task Force Recommendations. Performed By: #### 4 6953 #### LAB [address] [place] [address] Les aMlone M.D. [id number] Sodium [Moles/Vol] 140 mmol/L Normal 135-145 [facility] Comment on above: Order Comment: [facility] has implemented the eGFR calculation approach that does not have a coefficient for race that conforms to the NKF-ASN Task Force Recommendations. Performed By: #### 4 6953 #### LAB [address] [place] [address] Les Malone M.D. [id number] Urea nitrogen [Mass/Vol] 33 mg/dL High 8-[address] [facility] Comment on above: Order Comment: [facility] has implemented the eGFR calculation approach that does not have a coefficient for race that conforms to the NKF-ASN Task Force Recommendations. Performed By: #### 4 6953 #### LAB [address] [place] [address] Les Malone M.D. [id number] Urea nitrogen/Creatinine [Mass ratio] 55.0 mg/mg High 10.0-20.[address] [facility] Comment on above: Order Comment: [facility] has implemented the eGFR calculation approach that does not have a coefficient for race that conforms to the NKF-ASN Task Force Recommendations. Performed By: #### 4 6953 #### LAB [address] [place] [address] Les Malone M.D. [id number] MAGNESIUM LEVELon 01-16-2024 Magnesium [Mass/Vol] 2.2 mg/dL Normal 1.6-2.4 [facility] Comment on above: Performed By: #### 4 6109 #### LAB [address] [place] [address] Les Malone M.D. [id number] PHOSPHORUSon 01-16-2024 Phosphate [Mass/Vol] 2.9 mg/dL Normal 2.7-4.5 [facility] Comment on above: Performed By: #### 4 6299 ####[facility] [address] [address] Les Malone M.D. [id number] POC ARTERIAL BLOOD GAS PANEL -[facility] 01-16-2024 [id number] 96.5 mm Hg Normal [facility] Comment on above: Performed By: #### 4 8716 ####[facility] [address] [address] Les Malone M.D. [id number] BASE EXCESS, ARTERIAL 0.6 Normal -2.0-2.0 [facility] Comment on above: Performed By: #### 4 8716 ####[facility] [address] [address] Les Malone M.D. [id number] FIO2 [address] [facility] Comment on above: Performed By: #### 4 8716 ####[facility] [address] [address] Les Malone M.D. [id number] HCO3 (Bld) [Moles/Vol] 23.8 mmol/L Normal 22.0-26.[address] [facility] Comment on above: Performed By: #### 4 8716 ####[facility] [address] [address] Les Malone M.D. [id number] Hematocrit (Bld) [Volume fraction] 24.2 % Low 41.0-53.[address] [facility] Comment on above: Performed By: #### 4 [id number] #### LAB [address] [address] Les Malone M.D. [id number] Hemoglobin (Bld) [Mass/Vol] 7.9 g/dL Low 13.5-17.[address] [facility] Comment on above: Performed By: #### 4 8716 #### LAB [address] [address] Les Malone M.D. [id number] O2 SATURATION ARTERIAL > High 92.0-99.[address] [facility] Comment on above: Performed By: #### 4 8716 #### LAB [address] [address] Les Malone M.D. [id number] PCO2 ARTERIAL 31.5 mm Hg Low 35.0-45.[address] [facility] Comment on above: Performed By: #### 4 [id number] #### LAB [address] [address] Les Malone M.D. [id number] PEEP RAD 5 [facility] Comment on above: Performed By: #### 4 [id number] #### LAB [address] [address] Les Malone M.D. [id number] PH ARTERIAL 7.49 High 7.35-7.[address] [facility] Comment on above: Performed By: #### 4 8716 #### LAB [address] [address] Les Malone M.D. [id number] PO2 ARTERIAL 141 mm Hg High 80-[address] [facility] Comment on above: Performed By: #### 4 [id number] #### LAB [address] [address] Les Malone M.D. [id number] RESP RATE RAD 22 [facility] Comment on above: Performed By: #### 4 [id number] #### LAB [address] [address] Les Malone M.D. [id number] SPECIMEN SOURCE RADIANCE Not specified [facility] Comment on above: Performed By: #### 4 [id number] #### LAB [address] [address] Les Malone M.D. [id number] TIDAL VOLUME RAD 480 Normal [facility] Comment on above: Performed By: #### 4 [id number] #### LAB [address] [address] Les Malone M.D. [id number] POC GLUCOSE [facility] 024 Glucose [Mass/Vol] 133 mg/dL [address] Comment on above: Performed By: #### 4 6932 ####[facility] [address] [address] Les Malone M.D. [id number] Glucose [Mass/Vol] 136 mg/dL [address] Comment on above: Performed By: #### 4 6932 #### LAB [address] [address] Les Malone M.D. [id number] Glucose [Mass/Vol] 118 mg/dL [address] Comment on above: Performed By: #### 4 6932 #### LAB [address] [address] Les Malone M.D. [id number] Glucose [Mass/Vol] 120 mg/dL [address] Comment on above: Performed By: #### 4 6932 #### LAB [address] [address] Les Malone M.D. [id number] Glucose [Mass/Vol] 145 mg/dL [address] Comment on above: Performed By: #### 4 6234 #### LAB [address] [address] Les Malone M.D. [id number] Glucose [Mass/Vol] 131 mg/dL [address] Comment on above: Performed By: #### 4 5472 ####[facility] [address] [address] Les Malone M.D. [id number] Glucose [Mass/Vol] 157 mg/dL High 65-99 [facility] Comment on above: Performed By: #### 4 6932 #### LAB [address] [address] Les Malone M.D. [id number] POTASSIUM LEVELon 01-16-2024 Potassium [Moles/Vol] 4.2 mmol/L Normal 3.5-5.1 [facility] Comment on above: Performed By: #### 4 6351 ####[facility] [address] [address] Les Malone M.D. [id number] TRIGLYCERIDESon 01-16-2024 Triglyceride [Mass/Vol] 154 mg/dL High 30-[address] [facility] Comment on above: Result Comment: [place] [employer] Cholesterol Education Program Guidelines: TriglycerideNormal: <150 mg/dLBorderline High: 150-199 mg/dLHigh: 200-499 mg/dLVery High: greater than or equal to 500 mg/dL Performed By: #### 4 6606 #### LAB [address] [address] Les Malone M.D. [id number] CALCIUM, IONIZEDon CALCIUM IONIZED 4.4 mg/dL Low 4.5-5.[address] [facility] Comment on above: Performed By: #### 4 5190 #### LAB [address] [address] Les Malone M.D. [id number] CBCon 01-15-2024 AUTO NRBC 0.0 % Normal [facility] Comment on above: Performed By: #### 4 [id number] #### LAB [address] [address] Les Malone M.D. [id number] AUTO NRBC ABS COUNT 0.00 K/mcL Normal 0.00-0.00 [facility] Comment on above: Performed By: #### 4 [id number] #### LAB [address] [address] Les Malone M.D. [id number] Erythrocyte distribution width (RBC) [Ratio] 20.2 % High 11.6-14.[address] [facility] Comment on above: Performed By: #### 4 [id number] #### LAB [address] [address] Les Malone M.D. [id number] Hematocrit (Bld) [Volume fraction] 24.6 % Low 41.0-53.[address] [facility] Comment on above: Performed By: #### 4 5218 #### LAB [address] [address] Les Malone M.D. [id number] Hemoglobin (Bld) [Mass/Vol] 7.5 g/dL Low 13.5-17.[address] [facility] Comment on above: Performed By: #### 4 5218 #### LAB [address] [address] Les Malone M.D. [id number] MCH (RBC) [Entitic mass] 29.0 pg Normal 26.0-34.[address] [facility] Comment on above: Performed By: #### 4 [id number] #### LAB [address] [address] Les Malone M.D. [id number] MCV (RBC) [Entitic vol] 95.0 fL Normal 80.0-100.[address] [facility] Comment on above: Performed By: #### 4 5218 #### LAB [address] [address] Les Malone M.D. [id number] MEAN CORPUSCULAR HEMOGLOBIN CONC 30.5 g/dL Low 31.0-37.[address] [facility] Comment on above: Performed By: #### 4 [id number] #### LAB [address] [address] Les Malone M.D. [id number] Platelet mean volume (Bld) [Entitic vol] 11.1 fL Normal 9.4-12.[address] [facility] Comment on above: Performed By: #### 4 5218 #### LAB [address] [address] Les Malone M.D. [id number] Platelets (Bld) [#/Vol] 372 10*3/uL Normal 150-[address] [facility] Comment on above: Performed By: #### 4 5218 #### LAB [address] [place], [place] [address] Les Malone M.D. [id number] RBC (Bld) [#/Vol] 2.59 10*6/uL Low 4.50-5.90 [facility] Comment on above: Performed By: #### 4 5218 ####[facility] [address] [place], [place] [address] Les Malone M.D. [id number] WBC (Bld) [#/Vol] 15.18 10*3/uL High 4.50-11.00 [facility] Comment on above: Performed By: #### 4 5218 #### LAB [address] [address] Les Malone M.D. [id number] CHEM 701-15-2024 Anion gap [Moles/Vol] 14 mmol/L Normal 10-20 [facility] Comment on above: Order Comment: [facility] has implemented the eGFR calculation approach that does not have a coefficient for race that conforms to the NKF-ASN Task Force Recommendations. Performed By: #### 4 6953 #### LAB [address] [place], [place] [address] Les Malone M.D. [id number] Chloride [Moles/Vol] 111 mmol/L High 98-108 [facility] Comment on above: Order Comment: [facility] has implemented the eGFR calculation approach that does not have a coefficient for race that conforms to the NKF-ASN Task Force Recommendations. Performed By: #### 4 6953 #### LAB [address] [place], [place] [address] Les Malone M.D. [id number] Creatinine [Mass/Vol] 0.65 mg/dL Normal 0.50-1.30 [facility] Comment on above: Order Comment: [facility] has implemented the eGFR calculation approach that does not have a coefficient for race that conforms to the NKF-ASN Task Force Recommendations. Performed By: #### 4 6953 #### LAB [address] [place], [place] [address] Les Malone M.D. [id number] EGFR 118 mL/min/1.73 m2 Normal >=60 [facility] Comment on above: Order Comment: [facility] has implemented the eGFR calculation approach that does not have a coefficient for race that conforms to the NKF-ASN Task Force Recommendations. Result Comment: Fanta mated GFR was calculated using the 2020 CKD-EPI creatinine equation. Performed By: #### 4 6953 #### LAB [address] [place], [place] [address] Les Malone M.D. [id number] Glucose [Mass/Vol] 117 mg/dL High 65-99 [facility] Comment on above: Order Comment: [facility] has implemented the eGFR calculation approach that does not have a coefficient for race that conforms to the NKF-ASN Task Force Recommendations. Performed By: #### 4 6953 #### LAB [address] [address] Les Malone M.D. [id number] HCO3 (Bld) [Moles/Vol] 23 mmol/L Normal 21-[address] [facility] Comment on above: Order Comment: [facility] has implemented the eGFR calculation approach that does not have a coefficient for race that conforms to the NKF-ASN Task Force Recommendations. Performed By: #### 4 6953 #### LAB [address] [place], [place] [address] Les Malone M.D. [id number] Potassium [Moles/Vol] 4.0 mmol/L Normal 3.5-5.1 [facility] Comment on above: Order Comment: [facility] has implemented the eGFR calculation approach that does not have a coefficient for race that conforms to the NKF-ASN Task Force Recommendations. Performed By: #### 4 6953 #### LAB [address] [place], [place] [address] Les Malone M.D. [id number] Sodium [Moles/Vol] 144 mmol/L Normal 135-145 [facility] Comment on above: Order Comment: [facility] has implemented the eGFR calculation approach that does not have a coefficient for race that conforms to the NKF-ASN Task Force Recommendations. Performed By: #### 4 6953 #### LAB [address] [address] Les Malone M.D. [id number] Urea nitrogen [Mass/Vol] 35 mg/dL High 8-[address] [facility] Comment on above: Order Comment: [facility] has implemented the eGFR calculation approach that does not have a coefficient for race that conforms to the NKF-ASN Task Force Recommendations. Performed By: #### 4 6953 #### LAB [address] [address] Les Maolne M.D. [id number] Urea nitrogen/Creatinine [Mass ratio] 53.8 mg/mg High 10.0-20.[address] [facility] Comment on above: Order Comment: [facility] has implemented the eGFR calculation approach that does not have a coefficient for race that conforms to the NKF-ASN Task Force Recommendations. Performed By: #### 4 6953 #### LAB [address] [place], [place] [address] Les Malone M.D. [id number] MAGNESIUM LEVELon 01-15-2024 Magnesium [Mass/Vol] 2.3 mg/dL Normal 1.6-2.4 [facility] Comment on above: Performed By: #### 4 6109 ####[facility] [address] [place], [place] [address] Les Malone M.D. [id number] PHOSPHORUSon 01-15-2024 Phosphate [Mass/Vol] 3.6 mg/dL Normal 2.7-4.5 [facility] Comment on above: Performed By: #### 4 6299 #### LAB [address] [address] Les Malone M.D. [id number] POC ARTERIAL BLOOD GAS PANEL -[facility] 01-15-2024 [id number] 65.3 mm Hg Normal [facility] Comment on above: Performed By: #### 4 8716 ####[facility] [address] [address] Les Malone M.D. [id number] BASE EXCESS, ARTERIAL 1.3 Normal -2.0-2.0 [facility] Comment on above: Performed By: #### 4 8716 ####[facility] [address] [address] Les Malone M.D. [id number] FIO2 [address] [facility] Comment on above: Performed By: #### 4 8716 ####[facility] [address] [address] Les Malone M.D. [id number] HCO3 (Bld) [Moles/Vol] 25.0 mmol/L Normal 22.0-26.[address] [facility] Comment on above: Performed By: #### 4 8716 ####[facility] [address] [address] Les Malone M.D. [id number] Hematocrit (Bld) [Volume fraction] 29.0 % Low 41.0-53.[address] [facility] Comment on above: Performed By: #### 4 8716 ####[facility] [address] [address] Les Malone M.D. [id number] Hemoglobin (Bld) [Mass/Vol] 9.5 g/dL Low 13.5-17.[address] [facility] Comment on above: Performed By: #### 4 8716 #### LAB [address] [address] Les Malone M.D. [id number] Oxygen saturation in Blood 99.5 % High 92.0-99.[address] [facility] Comment on above: Performed By: #### 4 8716 ####[facility] [address] [address] Les Malone M.D. [id number] PCO2 ARTERIAL 35.4 mm Hg Normal 35.0-45.[address] [facility] Comment on above: Performed By: #### 4 8716 ####[facility] [address] [address] Les Malone M.D. [id number] PEEP RAD 5 [facility] Comment on above: Performed By: #### 4 8716 #### LAB [address] [address] Les Malone M.D. [id number] PH ARTERIAL 7.46 High 7.35-7.[address] [facility] Comment on above: Performed By: #### 4 8716 ####[facility] [address] [address] Les Malone M.D. [id number] PO2 ARTERIAL 168 mm Hg High 80-[address] [facility] Comment on above: Performed By: #### 4 8716 #### LAB [address] [address] Les Malone M.D. [id number] RESP RATE RAD 22 [facility] Comment on above: Performed By: #### 4 8716 ####[facility] [address] [address] Les Malone M.D. [id number] SPECIMEN SOURCE RADIANCE Not specified [facility] Comment on above: Performed By: #### 4 8716 #### LAB [address] [address] Les Malone M.D. [id number] TIDAL VOLUME RAD 480 [facility] Comment on above: Performed By: #### 4 8716 #### LAB [address] [address] Les Malone M.D. [id number] [facility] Glucose [Mass/Vol] 150 mg/dL High 65-99 [facility] Comment on above: Performed By: #### 4 6932 ####[facility] [address] [address] Les Malone M.D. [id number] Glucose [Mass/Vol] 119 mg/dL High [address] [place] [address] Comment on above: Performed By: #### 4 6932 #### LAB [address] [address] Les Malone M.D. [id number] Glucose [Mass/Vol] 111 mg/dL [address] Comment on above: Performed By: #### 4 6932 #### LAB [address] [address] Les Malone M.D. [id number] Glucose [Mass/Vol] 113 mg/dL High [address] [place] [address] Comment on above: Performed By: #### 4 6932 #### LAB [address] [address] Les Malone M.D. [id number] Glucose [Mass/Vol] 129 mg/dL [address] Comment on above: Performed By: #### 4 6932 #### LAB [address] [address] Les Malone M.D. [id number] CBCon 01-14-2024 AUTO NRBC 0.0 % [facility] Comment on above: Performed By: #### 4 [id number] #### LAB [address] [address] Les Malone M.D. [id number] AUTO NRBC ABS COUNT 0.00 K/mcL Normal 0.00-0.00 [facility] Comment on above: Performed By: #### 4 [id number] #### LAB [address] [address] Les Malone M.D. [id number] Erythrocyte distribution width (RBC) [Ratio] 21.2 % High 11.6-14.[address] [facility] Comment on above: Performed By: #### 4 5218 #### LAB [address] [address] Les Malone M.D. [id number] Hematocrit (Bld) [Volume fraction] 24.3 % Low 41.0-53.[address] [facility] Comment on above: Performed By: #### 4 5218 #### LAB [address] [address] Les Malone M.D. [id number] Hemoglobin (Bld) [Mass/Vol] 7.3 g/dL Low 13.5-17.[address] [facility] Comment on above: Performed By: #### 4 5218 #### LAB [address] [address] Les Malone M.D. [id number] MCH (RBC) [Entitic mass] 29.0 pg Normal 26.0-34.[address] [facility] Comment on above: Performed By: #### 4 5218 #### LAB [address] [address] Les Malone M.D. [id number] MCV (RBC) [Entitic vol] 96.4 fL Normal 80.0-100.[address] [facility] Comment on above: Performed By: #### 4 5218 #### LAB [address] [address] Les Malone M.D. [id number] MEAN CORPUSCULAR HEMOGLOBIN CONC 30.0 g/dL Low 31.0-37.[address] [facility] Comment on above: Performed By: #### 4 5218 #### LAB [address] [address] Les Malone M.D. [id number] Platelet mean volume (Bld) [Entitic vol] 10.9 fL Normal 9.4-12.[address] [facility] Comment on above: Performed By: #### 4 5218 #### LAB [address] [address] Les Malone M.D. [id number] Platelets (Bld) [#/Vol] 341 10*3/uL Normal 150-[address] [facility] Comment on above: Performed By: #### 4 5218 #### LAB [address] [address] Les Malone M.D. [id number] RBC (Bld) [#/Vol] 2.52 10*6/uL Low 4.50-5.90 [facility] Comment on above: Performed By: #### 4 5218 #### LAB [address] [place], [place] [address] Les Malone M.D. [id number] WBC (Bld) [#/Vol] 11.93 10*3/uL High 4.50-11.00 [facility] Comment on above: Performed By: #### 4 5218 #### LAB [address] [place], [place] [address] Les Malone M.D. [id number] CHEM 01-14-2024 Anion gap [Moles/Vol] 14 mmol/L Normal 10-20 [facility] Comment on above: Order Comment: [facility] has implemented the eGFR calculation approach that does not have a coefficient for race that conforms to the NKF-ASN Task Force Recommendations. Performed By: #### 4 6953 #### LAB [address] [place], [place] [address] Les Malone M.D. [id number] Chloride [Moles/Vol] 117 mmol/L High 98-108 [facility] Comment on above: Order Comment: [facility] has implemented the eGFR calculation approach that does not have a coefficient for race that conforms to the NKF-ASN Task Force Recommendations. Performed By: #### 4 6953 #### LAB [address] [place], [place] [address] Les Malone M.D. [id number] Creatinine [Mass/Vol] 0.62 mg/dL Normal 0.50-1.30 [facility] Comment on above: Order Comment: [facility] has implemented the eGFR calculation approach that does not have a coefficient for race that conforms to the NKF-ASN Task Force Recommendations. Performed By: #### 4 6953 #### LAB [address] [place], [place] [address] Les Malone M.D. [id number] EGFR 120 mL/min/1.73 m2 Normal >=60 [facility] Comment on above: Order Comment: [facility] has implemented the eGFR calculation approach that does not have a coefficient for race that conforms to the NKF-ASN Task Force Recommendations. Result Comment: Fanta mated GFR was calculated using the 2020 CKD-EPI creatinine equation. Performed By: #### 4 6953 #### LAB [address] [address] Les Malone M.D. [id number] Glucose [Mass/Vol] 101 mg/dL High 65-99 [facility] Comment on above: Order Comment: [facility] has implemented the eGFR calculation approach that does not have a coefficient for race that conforms to the NKF-ASN Task Force Recommendations. Performed By: #### 4 6953 #### LAB [address] [address] Les Malone M.D. [id number] HCO3 (Bld) [Moles/Vol] 22 mmol/L Normal 21-[address] [facility] Comment on above: Order Comment: [facility] has implemented the eGFR calculation approach that does not have a coefficient for race that conforms to the NKF-ASN Task Force Recommendations. Performed By: #### 4 6953 #### LAB [address] [address] Les Malone M.D. [id number] Potassium [Moles/Vol] 3.8 mmol/L Normal 3.5-5.1 [facility] Comment on above: Order Comment: [facility] has implemented the eGFR calculation approach that does not have a coefficient for race that conforms to the NKF-ASN Task Force Recommendations. Performed By: #### 4 6953 #### LAB [address] [address] Les Malone M.D. [id number] Sodium [Moles/Vol] 149 mmol/L High 135-145 [facility] Comment on above: Order Comment: [facility] has implemented the eGFR calculation approach that does not have a coefficient for race that conforms to the NKF-ASN Task Force Recommendations. Performed By: #### 4 6953 ####[facility] [address] [place], [place] [address] Les Malone M.D. [id number] Urea nitrogen [Mass/Vol] 42 mg/dL High 8-[address] [facility] Comment on above: Order Comment: [facility] has implemented the eGFR calculation approach that does not have a coefficient for race that conforms to the NKF-ASN Task Force Recommendations. Performed By: #### 4 6953 ####[facility] [address] [place], [place] [address] Les Malone M.D. [id number] Urea nitrogen/Creatinine [Mass ratio] 67.7 mg/mg High 10.0-20.[address] [facility] Comment on above: Order Comment: [facility] has implemented the eGFR calculation approach that does not have a coefficient for race that conforms to the NKF-ASN Task Force Recommendations. Performed By: #### 4 6953 #### LAB [address] [place], [place] [address] Les Malone M.D. [id number] CONSULTon 01-14-[address] Cale hurt for critical care. AUTHENTICATED BY JOEY FIGUEROA ON 01/14/2024 17:19:[address] [facility] ECHOCARDIOGRAM LIMITEDon ECHOCARDIOGRAM LIMITED Normal [facility] MAGNESIUM LEVELon 01-14-2024 Magnesium [Mass/Vol] 2.5 mg/dL High 1.6-2.4 [facility] Comment on above: Performed By: #### 4 6109 ####[facility] [address] [place], [place] [address] Les Malone M.D. [id number] OP NOTEon 01-14-2024 OP NOTE Normal [facility] PHOSPHORUSon 01-14-2024 Phosphate [Mass/Vol] 3.6 mg/dL Normal 2.7-4.5 [facility] Comment on above: Performed By: #### 4 6299 ####[facility] [address] [place], [place] [address] Les Malone M.D. [id number] POC ABG SURG - RALSon 2023 BASE EXCESS, ARTERIAL ISTAT 1 Normal -2-[address] [facility] Comment on above: Performed By: #### 4 8737 ####[facility] [address] [address] Les Malone M.D. [id number] Glucose [Mass/Vol] 163 mg/dL High 65-99 [facility] Comment on above: Performed By: #### 4 8737 ####[facility] [address] [address] Les Malone M.D. [id number] HCO3 (Bld) [Moles/Vol] 26.0 mmol/L Normal 22.0-26.[address] [facility] Comment on above: Performed By: #### 4 8737 ####[facility] [address] [place] [address] Les Malone M.D. [id number] Hematocrit (Bld) [Volume fraction] 26 % Low 41-[address] [facility] Comment on above: Performed By: #### 4 8737 ####[facility] [address] [address] Les Malone M.D. [id number] Hemoglobin (Bld) [Mass/Vol] 8.8 g/dL Low 13.5-17.[address] [facility] Comment on above: Performed By: #### 4 8737 #### LAB [address] [place] [address] Les Malone M.D. [id number] Oxygen saturation in Blood 100.0 % High 92.0-99.[address] [facility] Comment on above: Performed By: #### 4 8737 ####[facility] [address] [place] [address] Les Malone M.D. [id number] PCO2 ARTERIAL 44.3 mm Hg Normal 35.0-45.[address] [facility] Comment on above: Performed By: #### 4 8765 ####[facility] [address] [place] [address] Les Malone M.D. [id number] PH ARTERIAL 7.38 Normal 7.35-7.[address] [facility] Comment on above: Performed By: #### 4 8737 ####[facility] [address] [address] Les Malone M.D. [id number] PO2 ARTERIAL 349 mm Hg High 80-[address] [facility] Comment on above: Performed By: #### 4 8737 ####[facility] [address] [place] [address] Les Malone M.D. [id number] POC IONIZED CALCIUM 4.5 mg/dL Normal 4.5-5.3 [facility] Comment on above: Performed By: #### 4 8737 ####[facility] [address] [address] Les Malone M.D. [id number] Potassium [Moles/Vol] 3.6 mmol/L Normal 3.5-5.1 [facility] Comment on above: Performed By: #### 4 8737 ####[facility] [address] [address] Les Malone M.D. [id number] Sodium [Moles/Vol] 149 mmol/L High 135-145 [facility] Comment on above: Performed By: #### 4 8737 ####[facility] [address] [address] Les Malone M.D. [id number] POC ARTERIAL BLOOD GAS PANEL [facility] 01-14-2024 [id number] 109.5 mm Hg [facility] Comment on above: Performed By: #### 4 8716 ####[facility] [address] [address] Les Malone M.D. [id number] BASE EXCESS, ARTERIAL 0.3 Normal -2.0-2.0 [facility] Comment on above: Performed By: #### 4 8716 ####[facility] [address] [address] Les Malone M.D. [id number] FIO2 40 [facility] Comment on above: Performed By: #### 4 [id number] #### LAB [address] [address] Les Malone M.D. [id number] HCO3 (Bld) [Moles/Vol] 24.4 mmol/L Normal 22.0-26.[address] [facility] Comment on above: Performed By: #### 4 8716 ####[facility] [address] [address] Les Malone M.D. [id number] Hematocrit (Bld) [Volume fraction] 25.3 % Low 41.0-53.[address] [facility] Comment on above: Performed By: #### 4 [id number] #### LAB [address] [address] Les Malone M.D. [id number] Hemoglobin (Bld) [Mass/Vol] 8.3 g/dL Low 13.5-17.[address] [facility] Comment on above: Performed By: #### 4 [id number] #### LAB [address] [address] Les Malnoe M.D. [id number] Oxygen saturation in Blood 99.5 % High 92.0-99.[address] [facility] Comment on above: Performed By: #### 4 8716 #### LAB [address] [address] Les Malone M.D. [id number] PCO2 ARTERIAL 36.4 mm Hg Normal 35.0-45.[address] [facility] Comment on above: Performed By: #### 4 8716 ####[facility] [address] [address] Les Malone M.D. [id number] PEEP RAD [address] [facility] Comment on above: Performed By: #### 4 [id number] #### LAB [address] [address] Les Malone M.D. [id number] PH ARTERIAL 7.44 Normal 7.35-7.[address] [facility] Comment on above: Performed By: #### 4 8716 ####[facility] [address] [address] Les Malone M.D. [id number] PO2 ARTERIAL 122 mm Hg High 80-[address] [facility] Comment on above: Performed By: #### 4 [id number] ####[facility] [address] [address] Les Malone M.D. [id number] RESP RATE RAD [address] [facility] Comment on above: Performed By: #### 4 [id number] ####[facility] [address] [address] Les Malone M.D. [id number] SPECIMEN SOURCE RADIANCE Not specified [facility] Comment on above: Performed By: #### 4 [id number] #### LAB [address] [address] Les Malone M.D. [id number] TIDAL VOLUME RAD 480 Normal [facility] Comment on above: Performed By: #### 4 8716 ####[facility] [address] [address] Les Malone M.D. [id number] 81.6 mm Hg [facility] Comment on above: Performed By: #### 4 8716 #### LAB [address] [address] Les Malone M.D. [id number] BASE EXCESS, ARTERIAL 2.1 High -2.0-2.0 [facility] Comment on above: Performed By: #### 4 8716 ####[facility] [address] [address] Les Malone M.D. [id number] FIO2 40 [facility] Comment on above: Performed By: #### 4 8716 ####[facility] [address] [address] Les Malone M.D. [id number] HCO3 (Bld) [Moles/Vol] 25.5 mmol/L Normal 22.0-26.[address] [facility] Comment on above: Performed By: #### 4 8716 ####[facility] [address] [address] Les Malone M.D. [id number] Hematocrit (Bld) [Volume fraction] 24.9 % Low 41.0-53.[address] [facility] Comment on above: Performed By: #### 4 [id number] #### LAB [address] [address] Les Malone M.D. [id number] Hemoglobin (Bld) [Mass/Vol] 8.1 g/dL Low 13.5-17.[address] [facility] Comment on above: Performed By: #### 4 8716 ####[facility] [address] [address] Les Malone M.D. [id number] O2 SATURATION ARTERIAL > High 92.0-99.[address] [facility] Comment on above: Performed By: #### 4 8716 #### LAB [address] [address] Les Malone M.D. [id number] PCO2 ARTERIAL 33.4 mm Hg Low 35.0-45.[address] [facility] Comment on above: Performed By: #### 4 8716 #### LAB [address] [address] Les Malone M.D. [id number] PEEP RAD 5 [facility] Comment on above: Performed By: #### 4 [id number] #### LAB [address] [address] Les Malone M.D. [id number] PH ARTERIAL 7.49 High 7.35-7.[address] [facility] Comment on above: Performed By: #### 4 8716 #### LAB [address] [address] Les Malone M.D. [id number] PO2 ARTERIAL 154 mm Hg High 80-[address] [facility] Comment on above: Performed By: #### 4 8716 ####[facility] [address] [address] Les Malone M.D. [id number] RESP RATE RAD 22 [facility] Comment on above: Performed By: #### 4 8716 ####[facility] [address] [address] Les Malone M.D. [id number] SPECIMEN SOURCE RADIANCE Not specified [facility] Comment on above: Performed By: #### 4 8716 ####[facility] [address] [address] Les Malone M.D. [id number] TIDAL VOLUME RAD 480 [facility] Comment on above: Performed By: #### 4 8716 ####[facility] [address] [address] Les Malone M.D. [id number] POC GLUCOSE [facility] 024 Glucose [Mass/Vol] 143 mg/dL [address] Comment on above: Performed By: #### 4 6932 ####[facility] [address] [address] Les Malone M.D. [id number] Glucose [Mass/Vol] 118 mg/dL [address] Comment on above: Performed By: #### 4 6932 ####[facility] [address] [address] Les Malone M.D. [id number] Glucose [Mass/Vol] 134 mg/dL [address] Comment on above: Performed By: #### 4 6932 ####[facility] [address] [address] Les Malone M.D. [id number] Glucose [Mass/Vol] 122 mg/dL [address] Comment on above: Performed By: #### 4 0001 ####[facility] [address] [address] Les Malone M.D. [id number] Glucose [Mass/Vol] 116 mg/dL [address] Comment on above: Performed By: #### 4 7335 ####[facility] [address] [address] Les Malone M.D. [id number] XR CHEST PA/APon 01-14-2024 XR CHEST PA/AP Normal [facility] Comment on above: Order Comment: Injur y/Trauma or Illness?:Illness/OtherHow long have you had these symptoms (acute/chronic)?:AcuteReason for exam?:TRACHHistory of cancer?:uSurgeries, chemotherapy, or radiation?:uType of Exam?:InitialAdditional signs and symptoms?:. CBCon 01-13-2024 AUTO NRBC 0.1 % Normal [facility] Comment on above: Performed By: #### 4 [id number] #### LAB [address] [address] Les Malone M.D. [id number] AUTO NRBC ABS COUNT 0.02 K/mcL High 0.00-0.00 [facility] Comment on above: Performed By: #### 4 [id number] #### LAB [address] [address] Les Malone M.D. [id number] Erythrocyte distribution width (RBC) [Ratio] 21.7 % High 11.6-14.[address] [facility] Comment on above: Performed By: #### 4 [id number] #### LAB [address] [address] Les Malone M.D. [id number] Hematocrit (Bld) [Volume fraction] 25.1 % Low 41.0-53.[address] [facility] Comment on above: Performed By: #### 4 [id number] #### LAB [address] [address] Les Malone M.D. [id number] Hemoglobin (Bld) [Mass/Vol] 7.7 g/dL Low 13.5-17.[address] [facility] Comment on above: Performed By: #### 4 [id number] #### LAB [address] [address] Les Malone M.D. [id number] MCH (RBC) [Entitic mass] 29.6 pg Normal 26.0-34.[address] [facility] Comment on above: Performed By: #### 4 [id number] #### LAB [address] [address] Les Malone M.D. [id number] MCV (RBC) [Entitic vol] 96.5 fL Normal 80.0-100.[address] [facility] Comment on above: Performed By: #### 4 [id number] #### LAB [address] [address] Les Malone M.D. [id number] MEAN CORPUSCULAR HEMOGLOBIN CONC 30.7 g/dL Low 31.0-37.[address] [facility] Comment on above: Performed By: #### 4 [id number] ####[facility] [address] [address] Les Malone M.D. [id number] Platelet mean volume (Bld) [Entitic vol] 11.3 fL Normal 9.4-12.[address] [facility] Comment on above: Performed By: #### 4 [id number] #### LAB [address] [address] Les Malone M.D. [id number] Platelets (Bld) [#/Vol] 343 10*3/uL Normal 150-[address] [facility] Comment on above: Performed By: #### 4 [id number] #### LAB [address] [address] Les Malone M.D. [id number] RBC (Bld) [#/Vol] 2.60 10*6/uL Low 4.50-5.90 [facility] Comment on above: Performed By: #### 4 [id number] #### LAB [address] [address] Les Malone M.D. [id number] WBC (Bld) [#/Vol] 15.28 10*3/uL High 4.50-11.00 [facility] Comment on above: Performed By: #### 4 [id number] #### LAB [address] [address] Les Malone M.D. [id number] CHEM 01-13-2024 Anion gap [Moles/Vol] 13 mmol/L Normal 10-20 [facility] Comment on above: Order Comment: [facility] has implemented the eGFR calculation approach that does not have a coefficient for race that conforms to the NKF-ASN Task Force Recommendations. Performed By: #### 4 6953 #### LAB [address] [place], [place] [address] Les Malone M.D. [id number] Chloride [Moles/Vol] 114 mmol/L High 98-108 [facility] Comment on above: Order Comment: [facility] has implemented the eGFR calculation approach that does not have a coefficient for race that conforms to the NKF-ASN Task Force Recommendations. Performed By: #### 4 6953 #### LAB [address] [place], [place] [address] Les Malone M.D. [id number] Creatinine [Mass/Vol] 0.72 mg/dL Normal 0.50-1.30 [facility] Comment on above: Order Comment: [facility] has implemented the eGFR calculation approach that does not have a coefficient for race that conforms to the NKF-ASN Task Force Recommendations. Performed By: #### 4 6953 #### LAB [address] [address] Les Malone M.D. [id number] EGFR 115 mL/min/1.73 m2 Normal >=60 [facility] Comment on above: Order Comment: [facility] has implemented the eGFR calculation approach that does not have a coefficient for race that conforms to the NKF-ASN Task Force Recommendations. Result Comment: Fanta mated GFR was calculated using the 2020 CKD-EPI creatinine equation. Performed By: #### 4 6953 ####[facility] [address] [address] Les Malone M.D. [id number] Glucose [Mass/Vol] 111 mg/dL High 65-99 [facility] Comment on above: Order Comment: [facility] has implemented the eGFR calculation approach that does not have a coefficient for race that conforms to the NKF-ASN Task Force Recommendations. Performed By: #### 4 6953 #### LAB [address] [place], [place] [address] Les Malone M.D. [id number] HCO3 (Bld) [Moles/Vol] 24 mmol/L Normal 21-[address] [facility] Comment on above: Order Comment: [facility] has implemented the eGFR calculation approach that does not have a coefficient for race that conforms to the NKF-ASN Task Force Recommendations. Performed By: #### 4 6953 ####[facility] [address] [place], [place] [address] Les Malone M.D. [id number] Potassium [Moles/Vol] 3.9 mmol/L Normal 3.5-5.1 [facility] Comment on above: Order Comment: [facility] has implemented the eGFR calculation approach that does not have a coefficient for race that conforms to the NKF-ASN Task Force Recommendations. Performed By: #### 4 6953 #### LAB [address] [address] Les Malone M.D. [id number] Sodium [Moles/Vol] 147 mmol/L High 135-145 [facility] Comment on above: Order Comment: [facility] has implemented the eGFR calculation approach that does not have a coefficient for race that conforms to the NKF-ASN Task Force Recommendations. Performed By: #### 4 6953 ####[facility] [address] [address] Les Malone M.D. [id number] Urea nitrogen [Mass/Vol] 48 mg/dL High 8-[address] [facility] Comment on above: Order Comment: [facility] has implemented the eGFR calculation approach that does not have a coefficient for race that conforms to the NKF-ASN Task Force Recommendations. Performed By: #### 4 6953 ####[facility] [address] [address] Les Malone M.D. [id number] Urea nitrogen/Creatinine [Mass ratio] 66.7 mg/mg High 10.0-20.[address] [facility] Comment on above: Order Comment: [facility] has implemented the eGFR calculation approach that does not have a coefficient for race that conforms to the NKF-ASN Task Force Recommendations. Performed By: #### 4 6953 #### LAB [address] [place], [place] [address] Les Malone M.D. [id number] MAGNESIUM LEVELon 01-13-2024 Magnesium [Mass/Vol] 2.6 mg/dL High 1.6-2.4 [facility] Comment on above: Performed By: #### 4 6109 #### LAB [address] [address] Les Malone M.D. [id number] PACEMAKER IMPLANTon 01-13-20 24 PACEMAKER IMPLANT Normal [facility] PHOSPHORUSon 01-13-2024 Phosphate [Mass/Vol] 3.8 mg/dL Normal 2.7-4.5 [facility] Comment on above: Performed By: #### 4 6299 ####[facility] [address] [id number] Les Malone M.D. [id number] POC ARTERIAL BLOOD [facility]EL [facility] 01-13-2024 [id number] 119.6 mm Hg Normal [facility] Comment on above: Performed By: #### 4 8716 ####[facility] [address] [place], [place] [address] Les Malone M.D. [id number] BASE EXCESS, ARTERIAL 0.9 Normal -2.0-2.0 [facility] Comment on above: Performed By: #### 4 8716 ####[facility] [address] [place], [place] [address] Les Malone M.D. [id number] FIO2 [address] [facility] Comment on above: Performed By: #### 4 8716 ####[facility] [address] [place], [place] [address] Les Malone M.D. [id number] HCO3 (Bld) [Moles/Vol] 25.3 mmol/L Normal 22.0-26.[address] [facility] Comment on above: Performed By: #### 4 8716 #### LAB [address] [address] Les Malone M.D. [id number] Hematocrit (Bld) [Volume fraction] 27.5 % Low 41.0-53.[address] [facility] Comment on above: Performed By: #### 4 8716 #### LAB [address] [address] Les Malone M.D. [id number] Hemoglobin (Bld) [Mass/Vol] 9.0 g/dL Low 13.5-17.[address] [facility] Comment on above: Performed By: #### 4 8716 #### LAB [address] [address] Les Malone M.D. [id number] Oxygen saturation in Blood 99.6 % High 92.0-99.[address] [facility] Comment on above: Performed By: #### 4 8716 #### LAB [address] [address] Lse Malone M.D. [id number] PCO2 ARTERIAL 38.5 mm Hg Normal 35.0-45.[address] [facility] Comment on above: Performed By: #### 4 8716 #### LAB [address] [address] Les Malone M.D. [id number] PEEP RAD [address] [facility] Comment on above: Performed By: #### 4 8716 #### LAB [address] [address] eLs Malone M.D. [id number] PH ARTERIAL 7.43 Normal 7.35-7.[address] [facility] Comment on above: Performed By: #### 4 8716 #### LAB [address] [address] Les Malone M.D. [id number] PO2 ARTERIAL 179 mm Hg High 80-[address] [facility] Comment on above: Performed By: #### 4 8716 #### LAB [address] [address] Les Malone M.D. [id number] RESP RATE RAD [address] [facility] Comment on above: Performed By: #### 4 8716 #### LAB [address] [address] Les Malone M.D. [id number] SPECIMEN SOURCE RADIANCE Not specified [facility] Comment on above: Performed By: #### 4 8716 #### LAB [address] [address] Les Malone M.D. [id number] TIDAL VOLUME RAD 480 Normal [facility] Comment on above: Performed By: #### 4 8716 #### LAB [address] [address] Les Malone M.D. [id number] 72.8 mm Hg [facility] Comment on above: Performed By: #### 4 8716 #### LAB [address] [address] Les Malone M.D. [id number] BASE EXCESS, ARTERIAL 1.4 Normal -2.0-2.0 [facility] Comment on above: Performed By: #### 4 8716 #### LAB [address] [address] Les Malone M.D. [id number] FIO2 [address] [facility] Comment on above: Performed By: #### 4 8716 #### LAB [address] [address] Les Malone M.D. [id number] HCO3 (Bld) [Moles/Vol] 25.6 mmol/L Normal 22.0-26.[address] [facility] Comment on above: Performed By: #### 4 8716 #### LAB [address] [address] Les Malone M.D. [id number] Hematocrit (Bld) [Volume fraction] 24.5 % Low 41.0-53.[address] [facility] Comment on above: Performed By: #### 4 8716 #### LAB [address] [address] Les Malone M.D. [id number] Hemoglobin (Bld) [Mass/Vol] 8.0 g/dL Low 13.5-17.[address] [facility] Comment on above: Performed By: #### 4 8716 #### LAB [address] [address] Les Malone M.D. [id number] O2 SATURATION ARTERIAL > High 92.0-99.[address] [facility] Comment on above: Performed By: #### 4 8716 #### LAB [address] [address] Les Malone M.D. [id number] PCO2 ARTERIAL 37.7 mm Hg Normal 35.0-45.[address] [facility] Comment on above: Performed By: #### 4 8716 #### LAB [address] [address] Les Malone M.D. [id number] PEEP RAD 10 [facility] Comment on above: Performed By: #### 4 8716 #### LAB [address] [address] Les Malone M.D. [id number] PH ARTERIAL 7.44 Normal 7.35-7.[address] [facility] Comment on above: Performed By: #### 4 8716 #### LAB [address] [address] Les Malone M.D. [id number] PO2 ARTERIAL 227 mm Hg High 80-[address] [facility] Comment on above: Performed By: #### 4 8716 #### LAB [address] [address] Les Malone M.D. [id number] RESP RATE RAD 22 [facility] Comment on above: Performed By: #### 4 8716 #### LAB [address] [address] Les Malone M.D. [id number] SPECIMEN SOURCE RADIANCE Not specified [facility] Comment on above: Performed By: #### 4 8716 #### LAB [address] [address] Les Malone M.D. [id number] TIDAL VOLUME RAD 480 Normal [facility] Comment on above: Performed By: #### 4 8716 #### LAB [address] [address] Les Malone M.D. [id number] [facility] Glucose [Mass/Vol] 136 mg/dL [address] Comment on above: Performed By: #### 4 6932 ####[facility] [address] [address] eLs Malone M.D. [id number] Glucose [Mass/Vol] 109 mg/dL [address] Comment on above: Performed By: #### 4 6932 ####[facility] [address] [address] Les Malone M.D. [id number] Glucose [Mass/Vol] 119 mg/dL [address] Comment on above: Performed By: #### 4 6932 ####[facility] [address] [address] Les Malone M.D. [id number] Glucose [Mass/Vol] 132 mg/dL [address] Comment on above: Performed By: #### 4 6932 #### LAB [address] [address] Les Malone M.D. [id number] Glucose [Mass/Vol] 129 mg/dL [address] Comment on above: Performed By: #### 4 6932 ####[facility] [address] [address] Les Malone M.D. [id number] POTASSIUM LEVELon 01-13-2024 Potassium [Moles/Vol] 4.2 mmol/L Normal 3.5-5.1 [facility] Comment on above: Performed By: #### 4 6351 #### LAB [address] [address] Les Malone M.D. [id number] XR CHEST PA/APon 01-13-2024 XR CHEST PA/AP Normal [facility] Comment on above: Order Comment: Injur y/Trauma or Illness?:Illness/OtherHow long have you had these symptoms (acute/chronic)?:AcuteReason for exam?:s/p ppmHistory of cancer?:uSurgeries, chemotherapy, or radiation?:uType of Exam?:InitialAdditional signs and symptoms?:. BRONCHIAL AEROBIC CULTUREon 01-12-2024 BRONCHIAL AEROBIC CULTURE AEROBIC CULTURE No Growth after 48 hrs GRAM STAIN RESULT Many WBC No Organisms Seen Normal [facility] Comment on above: Performed By: #### 4 4017 ####[facility] [address] [place] [address] Yonny Toro M.D. [id number] CBCon 01-12-2024 AUTO NRBC 0.1 % Normal [facility] Comment on above: Performed By: #### 4 5218 ####[facility] [address] [address] Les Malone M.D. [id number] AUTO NRBC ABS COUNT 0.02 K/mcL High 0.00-0.00 [facility] Comment on above: Performed By: #### 4 5218 #### LAB [address] [address] Les Malone M.D. [id number] Erythrocyte distribution width (RBC) [Ratio] 20.9 % High 11.6-14.[address] [facility] Comment on above: Performed By: #### 4 5218 #### LAB [address] [address] Les Malone M.D. [id number] Hematocrit (Bld) [Volume fraction] 24.3 % Low 41.0-53.[address] [facility] Comment on above: Performed By: #### 4 5218 #### LAB [address] [address] Les Malone M.D. [id number] Hemoglobin (Bld) [Mass/Vol] 7.3 g/dL Low 13.5-17.[address] [facility] Comment on above: Performed By: #### 4 5218 #### LAB [address] [address] Les Malone M.D. [id number] MCH (RBC) [Entitic mass] 29.8 pg Normal 26.0-34.[address] [facility] Comment on above: Performed By: #### 4 5218 #### LAB [address] [address] Les Malone M.D. [id number] MCV (RBC) [Entitic vol] 99.2 fL Normal 80.0-100.[address] [facility] Comment on above: Performed By: #### 4 5218 #### LAB [address] [address] Les Malone M.D. [id number] MEAN CORPUSCULAR HEMOGLOBIN CONC 30.0 g/dL Low 31.0-37.[address] [facility] Comment on above: Performed By: #### 4 5218 #### LAB [address] [address] Lse Malone M.D. [id number] Platelet mean volume (Bld) [Entitic vol] 10.7 fL Normal 9.4-12.[address] [facility] Comment on above: Performed By: #### 4 [id number] #### LAB [address] [place] [address] Les Malone M.D. [id number] Platelets (Bld) [#/Vol] 356 10*3/uL Normal 150-[address] [facility] Comment on above: Performed By: #### 4 [id number] #### LAB [address] [place] [address] Les Malone M.D. [id number] RBC (Bld) [#/Vol] 2.45 10*6/uL Low 4.50-5.90 [facility] Comment on above: Performed By: #### 4 5218 #### LAB [address] [place] [address] Les Malone M.D. [id number] WBC (Bld) [#/Vol] 22.79 10*3/uL High 4.50-11.00 [facility] Comment on above: Performed By: #### 4 5218 #### LAB [address] [place], [place] [address] Les Malone M.D. [id number] CHEM 7on 01-12-2024 Anion gap [Moles/Vol] 15 mmol/L Normal 10-20 [facility] Comment on above: Order Comment: [facility] has implemented the eGFR calculation approach that does not have a coefficient for race that conforms to the NKF-ASN Task Force Recommendations. Performed By: #### 4 6953 #### LAB [address] [place], [place] [address] Les Malone M.D. [id number] Chloride [Moles/Vol] 116 mmol/L High 98-108 [facility] Comment on above: Order Comment: [facility] has implemented the eGFR calculation approach that does not have a coefficient for race that conforms to the NKF-ASN Task Force Recommendations. Performed By: #### 4 6953 #### LAB [address] [place] [address] Les Malone M.D. [id number] Creatinine [Mass/Vol] 0.80 mg/dL Normal 0.50-1.30 [facility] Comment on above: Order Comment: [facility] has implemented the eGFR calculation approach that does not have a coefficient for race that conforms to the NKF-ASN Task Force Recommendations. Performed By: #### 4 6953 #### LAB [address] [place] [address] Les Malone M.D. [id number] EGFR 111 mL/min/1.73 m2 Normal >=60 [facility] Comment on above: Order Comment: [facility] has implemented the eGFR calculation approach that does not have a coefficient for race that conforms to the NKF-ASN Task Force Recommendations. Result Comment: Fanta mated GFR was calculated using the 2020 CKD-EPI creatinine equation. Performed By: #### 4 6953 ####[facility] [address] [id number] Les Malone M.D. [id number] Glucose [Mass/Vol] 162 mg/dL High 65-99 [facility] Comment on above: Order Comment: [facility] has implemented the eGFR calculation approach that does not have a coefficient for race that conforms to the NKF-ASN Task Force Recommendations. Performed By: #### 4 6953 ####[facility] [address] [address] Les Malone M.D. [id number] HCO3 (Bld) [Moles/Vol] 24 mmol/L Normal 21-[address] [facility] Comment on above: Order Comment: [facility] has implemented the eGFR calculation approach that does not have a coefficient for race that conforms to the NKF-ASN Task Force Recommendations. Performed By: #### 4 6953 #### LAB [address] [address] Les Malone M.D. [id number] Potassium [Moles/Vol] 4.1 mmol/L Normal 3.5-5.1 [facility] Comment on above: Order Comment: [facility] has implemented the eGFR calculation approach that does not have a coefficient for race that conforms to the NKF-ASN Task Force Recommendations. Performed By: #### 4 6953 ####[facility] [address] [id number] Les Malone M.D. [id number] Sodium [Moles/Vol] 151 mmol/L High 135-145 [facility] Comment on above: Order Comment: [facility] has implemented the eGFR calculation approach that does not have a coefficient for race that conforms to the NKF-ASN Task Force Recommendations. Performed By: #### 4 6953 ####[facility] [address] [address] Les Malone M.D. [id number] Urea nitrogen [Mass/Vol] 51 mg/dL High 8-[address] [facility] Comment on above: Order Comment: [facility] has implemented the eGFR calculation approach that does not have a coefficient for race that conforms to the NKF-ASN Task Force Recommendations. Performed By: #### 4 6953 #### LAB [address] [place], [place] [address] Les Malone M.D. [id number] Urea nitrogen/Creatinine [Mass ratio] 63.8 mg/mg High 10.0-20.[address] [facility] Comment on above: Order Comment: [facility] has implemented the eGFR calculation approach that does not have a coefficient for race that conforms to the NKF-ASN Task Force Recommendations. Performed By: #### 4 6953 #### LAB [address] [place], [place] [address] Les Malone M.D. [id number] CONSULTon 01-12-2024 CONSULT [facility] CONSULT [facility] HEMOGLOBIN AND HEMATOCRITon 01-12-2024 Hematocrit (Bld) [Volume fraction] 25.7 % Low 41.0-53.[address] [facility] Comment on above: Performed By: #### 4 6909 #### LAB [address] [place], [place] [address] Les Malone M.D. [id number] Hemoglobin (Bld) [Mass/Vol] 7.9 g/dL Low 13.5-17.[address] [facility] Comment on above: Performed By: #### 4 6909 #### LAB [address] [place], [place] [address] Les Malone M.D. [id number] MAGNESIUM LEVELon 01-12-2024 Magnesium [Mass/Vol] 2.6 mg/dL High 1.6-2.4 [facility] Comment on above: Performed By: #### 4 6109 #### LAB [address] [place], [place] [address] Les Malone M.D. [id number] PHOSPHORUSon 01-12-2024 Phosphate [Mass/Vol] 3.9 mg/dL Normal 2.7-4.5 [facility] Comment on above: Performed By: #### 4 6299 #### LAB [address] [address] Les Malone M.D. [id number] POC ARTERIAL BLOOD GAS PANEL -BRENDA Mcmahon 01-12-2024 [id number] 144.9 mm Hg [facility] Comment on above: Performed By: #### 4 [id number] #### LAB [address] [address] Les Malone M.D. [id number] BASE EXCESS, ARTERIAL 1.1 Normal -2.0-2.0 [facility] Comment on above: Performed By: #### 4 [id number] #### LAB [address] [address] Les Malone M.D. [id number] FIO2 70 [facility] Comment on above: Performed By: #### 4 [id number] #### LAB [address] [address] Les Malone M.D. [id number] HCO3 (Bld) [Moles/Vol] 26.1 mmol/L High 22.0-26.[address] [facility] Comment on above: Performed By: #### 4 [id number] #### LAB [address] [address] Les Malone M.D. [id number] Hematocrit (Bld) [Volume fraction] 24.7 % Low 41.0-53.[address] [facility] Comment on above: Performed By: #### 4 [id number] #### LAB [address] [address] Les Malone M.D. [id number] Hemoglobin (Bld) [Mass/Vol] 8.1 g/dL Low 13.5-17.[address] [facility] Comment on above: Performed By: #### 4 [id number] #### LAB [address] [address] Les Malone M.D. [id number] O2 SATURATION ARTERIAL > High 92.0-99.[address] [facility] Comment on above: Performed By: #### 4 [id number] #### LAB [address] [address] Les Malone M.D. [id number] PCO2 ARTERIAL 43.1 mm Hg Normal 35.0-45.[address] [facility] Comment on above: Performed By: #### 4 [id number] ####[facility] [address] [address] Les Malone M.D. [id number] PEEP RAD [address] [facility] Comment on above: Performed By: #### 4 [id number] ####[facility] [address] [address] Les Malone M.D. [id number] PH ARTERIAL 7.39 Normal 7.35-7.[address] [facility] Comment on above: Performed By: #### 4 [id number] #### LAB [address] [address] Les Malone M.D. [id number] PO2 ARTERIAL 285 mm Hg High 80-[address] [facility] Comment on above: Performed By: #### 4 [id number] ####[facility] [address] [address] Les Malone M.D. [id number] RESP RATE RAD [address] [facility] Comment on above: Performed By: #### 4 [id number] #### LAB [address] [address] Les Malone M.D. [id number] SPECIMEN SOURCE RADIANCE Not specified [facility] Comment on above: Performed By: #### 4 [id number] #### LAB [address] [address] Les Malone M.D. [id number] TIDAL VOLUME RAD 480 Normal [facility] Comment on above: Performed By: #### 4 [id number] #### LAB [address] [address] Les Malone M.D. [id number] 364.7 mm Hg [facility] Comment on above: Performed By: #### 4 8716 ####[facility] [address] [address] Les Malone M.D. [id number] BASE EXCESS, ARTERIAL 0.6 Normal -2.0-2.0 [facility] Comment on above: Performed By: #### 4 8716 ####[facility] [address] [address] Les Malone M.D. [id number] FIO2 70 [facility] Comment on above: Performed By: #### 4 [id number] ####[facility] [address] [address] Les Malone M.D. [id number] HCO3 (Bld) [Moles/Vol] 25.9 mmol/L Normal 22.0-26.[address] [facility] Comment on above: Performed By: #### 4 [id number] #### LAB [address] [address] Les Malone M.D. [id number] Hematocrit (Bld) [Volume fraction] 23.9 % Low 41.0-53.[address] [facility] Comment on above: Performed By: #### 4 8716 ####[facility] [address] [address] Les Malone M.D. [id number] Hemoglobin (Bld) [Mass/Vol] 7.8 g/dL Low 13.5-17.[address] [facility] Comment on above: Performed By: #### 4 [id number] #### LAB [address] [address] Les Malone M.D. [id number] Oxygen saturation in Blood 91.8 % Low 92.0-99.[address] [facility] Comment on above: Performed By: #### 4 8716 ####[facility] [address] [address] Les Malone M.D. [id number] PCO2 ARTERIAL 44.0 mm Hg Normal 35.0-45.[address] [facility] Comment on above: Performed By: #### 4 8716 ####[facility] [address] [address] Les Malone M.D. [id number] PEEP RAD 10 [facility] Comment on above: Performed By: #### 4 [id number] #### LAB [address] [address] Les Malone M.D. [id number] PH ARTERIAL 7.38 Normal 7.35-7.[address] [facility] Comment on above: Performed By: #### 4 [id number] #### LAB [address] [address] Les Malone M.D. [id number] PO2 ARTERIAL 66 mm Hg Low 80-[address] [facility] Comment on above: Performed By: #### 4 [id number] #### LAB [address] [address] Les Malone M.D. [id number] SPECIMEN SOURCE RADIANCE Not specified [facility] Comment on above: Performed By: #### 4 [id number] #### LAB [address] [address] Les Malone M.D. [id number] 360.0 mm Hg [facility] Comment on above: Order Comment: Criti mono result acted upon time of test. Test performed at bedside. Performed By: #### 4 [id number] #### LAB [address] [address] Les Malone M.D. [id number] BASE EXCESS, ARTERIAL 2.2 High -2.0-2.0 [facility] Comment on above: Order Comment: Criti mono result acted upon time of test. Test performed at bedside. Performed By: #### 4 [id number] #### LAB [address] [address] Les Malone M.D. [id number] FIO2 70 [facility] Comment on above: Order Comment: Criti mono result acted upon time of test. Test performed at bedside. Performed By: #### 4 [id number] #### LAB [address] [address] Les Malone M.D. [id number] HCO3 (Bld) [Moles/Vol] 26.3 mmol/L High 22.0-26.[address] [facility] Comment on above: Order Comment: Criti mono result acted upon time of test. Test performed at bedside. Performed By: #### 4 [id number] #### LAB [address] [address] Les Malone M.D. [id number] Hemoglobin (Bld) [Mass/Vol] 6.1 g/dL Off scale low 13.5-17.[address] [facility] Comment on above: Order Comment: Criti mono result acted upon time of test. Test performed at bedside. Performed By: #### 4 [id number] #### LAB [address] [address] Les Malone M.D. [id number] Oxygen saturation in Blood 96.7 % Normal 92.0-99.[address] [facility] Comment on above: Order Comment: Criti mono result acted upon time of test. Test performed at bedside. Performed By: #### 4 [id number] #### LAB [address] [address] Les Malone M.D. [id number] PCO2 ARTERIAL 37.4 mm Hg Normal 35.0-45.[address] [facility] Comment on above: Order Comment: Criti mono result acted upon time of test. Test performed at bedside. Performed By: #### 4 [id number] #### LAB [address] [address] Les Malone M.D. [id number] PEEP RAD [address] [facility] Comment on above: Order Comment: Criti mono result acted upon time of test. Test performed at bedside. Performed By: #### 4 [id number] #### LAB [address] [address] Les Malone M.D. [id number] PH ARTERIAL 7.46 High 7.35-7.[address] [facility] Comment on above: Order Comment: Criti mono result acted upon time of test. Test performed at bedside. Performed By: #### 4 [id number] #### LAB [address] [address] Les Malone M.D. [id number] PO2 ARTERIAL 77 mm Hg Low 80-[address] [facility] Comment on above: Order Comment: Criti mono result acted upon time of test. Test performed at bedside. Performed By: #### 4 [id number] #### LAB [address] [address] Les Malone M.D. [id number] RESP RATE RAD 22 [facility] Comment on above: Order Comment: Criti mono result acted upon time of test. Test performed at bedside. Performed By: #### 4 [id number] #### LAB [address] [address] Les Malone M.D. [id number] SPECIMEN SOURCE RADIANCE Not specified [facility] Comment on above: Order Comment: Criti mono result acted upon time of test. Test performed at bedside. Performed By: #### 4 [id number] ####[facility] [address] [address] Les Malone M.D. [id number] TIDAL VOLUME RAD 480 [facility] Comment on above: Order Comment: Criti mono result acted upon time of test. Test performed at bedside. Performed By: #### 4 [id number] #### LAB [address] [address] Les Malone M.D. [id number] POC GLUCOSE [facility] 024 Glucose [Mass/Vol] 129 mg/dL High 65-99 [facility] Comment on above: Performed By: #### 4 6932 #### LAB [address] [address] Les Malone M.D. [id number] Glucose [Mass/Vol] 157 mg/dL High 65-99 [facility] Comment on above: Performed By: #### 4 6932 #### LAB [address] [address] Les Malone M.D. [id number] Glucose [Mass/Vol] 163 mg/dL High 6599 [facility] Comment on above: Performed By: #### 4 6932 #### LAB [address] [address] Les Malone M.D. [id number] Glucose [Mass/Vol] 190 mg/dL High [address] [place] [address] Comment on above: Performed By: #### 4 6932 #### LAB [address] [address] Les Malone M.D. [id number] Glucose [Mass/Vol] 154 mg/dL High [address] [place] [address] Comment on above: Performed By: #### 4 6932 ####[facility] [address] [address] Les Malone M.D. [id number] Glucose [Mass/Vol] 156 mg/dL High [address] [place] [address] Comment on above: Performed By: #### 4 6932 #### LAB [address] [address] Les Malone M.D. [id number] TRIGLYCERIDESon 01-12-2024 Triglyceride [Mass/Vol] 134 mg/dL Normal 30-[address] [facility] Comment on above: Result Comment: [place] [employer] Cholesterol Education Program Guidelines: TriglycerideNormal: <150 mg/dLBorderline High: 150-199 mg/dLHigh: 200-499 mg/dLVery High: greater than or equal to 500 mg/dL Performed By: #### 4 6606 #### LAB [address] [address] Les Malone M.D. [id number] TYPE AND SCREENon 01-12-2024 TYPE AND SCREEN ABORH: O Positive AB SCREEN: Negative EXPIRATION DATE: 01/15/2024 23:59 EST [facility] XR CHEST PA/APon 01-12-2024 XR CHEST PA/AP [facility] Comment on above: Order Comment: Injur y/Trauma or Illness?:Illness/OtherHow long have you had these symptoms (acute/chronic)?:AcuteReason for exam?:post bronchHistory of cancer?:uSurgeries, chemotherapy, or radiation?:uType of Exam?:InitialAdditional signs and symptoms?:. XR CHEST PA/AP [facility] Comment on above: Order Comment: Injur y/Trauma or Illness?:Illness/OtherHow long have you had these symptoms (acute/chronic)?:AcuteReason for exam?:ETT evalHistory of cancer?:uSurgeries, chemotherapy, or radiation?:uType of Exam?:InitialAdditional signs and symptoms?:. BLOOD CULTURE AEROBIC/ANAERO BICon 01-11-2024 BLOOD CULTURE AEROBIC/ANAEROBIC BLOOD CULTURE No Growth after 5 days [facility] Comment on above: Performed By: #### 4 4014 #### LAB [address] [address] Les Malone M.D. [id number] BLOOD CULTURE AEROBIC/ANAEROBIC BLOOD CULTURE No Growth after 5 days [facility] Comment on above: Performed By: #### 4 4014 #### LAB [address] [address] Les Malone M.D. [id number] CBCon 01-11-2024 AUTO NRBC 0.3 % [facility] Comment on above: Performed By: #### 4 [id number] #### LAB [address] [address] Les Malone M.D. [id number] AUTO NRBC ABS COUNT 0.08 K/mcL High 0.00-0.00 [facility] Comment on above: Performed By: #### 4 [id number] #### LAB [address] [address] Les Malone M.D. [id number] Erythrocyte distribution width (RBC) [Ratio] 20.8 % High 11.6-14.[address] [facility] Comment on above: Performed By: #### 4 [id number] #### LAB [address] [address] Les Malone M.D. [id number] Hematocrit (Bld) [Volume fraction] 24.5 % Low 41.0-53.[address] [facility] Comment on above: Performed By: #### 4 [id number] #### LAB [address] [address] Les Malone M.D. [id number] Hemoglobin (Bld) [Mass/Vol] 7.4 g/dL Low 13.5-17.[address] [facility] Comment on above: Performed By: #### 4 [id number] #### LAB [address] [address] Les Malone M.D. [id number] MCH (RBC) [Entitic mass] 29.8 pg Normal 26.0-34.[address] [facility] Comment on above: Performed By: #### 4 [id number] #### LAB [address] [address] Les Malone M.D. [id number] MCV (RBC) [Entitic vol] 98.8 fL Normal 80.0-100.[address] [facility] Comment on above: Performed By: #### 4 [id number] #### LAB [address] [address] Les Malone M.D. [id number] MEAN CORPUSCULAR HEMOGLOBIN CONC 30.2 g/dL Low 31.0-37.[address] [facility] Comment on above: Performed By: #### 4 [id number] #### LAB [address] [address] Les Malone M.D. [id number] Platelet mean volume (Bld) [Entitic vol] 10.5 fL Normal 9.4-12.[address] [facility] Comment on above: Performed By: #### 4 [id number] #### LAB [address] [address] Les Malone M.D. [id number] Platelets (Bld) [#/Vol] 438 10*3/uL High 150-[address] [facility] Comment on above: Performed By: #### 4 [id number] #### LAB [address] [address] Les Malone M.D. [id number] RBC (Bld) [#/Vol] 2.48 10*6/uL Low 4.50-5.90 [facility] Comment on above: Performed By: #### 4 [id number] #### LAB [address] [address] Les Malone M.D. [id number] WBC (Bld) [#/Vol] 26.40 10*3/uL High 4.50-11.00 [facility] Comment on above: Performed By: #### 4 [id number] #### LAB [address] [place], [place] [address] Les Malone M.D. [id number] CHEM 701-11-2024 Anion gap [Moles/Vol] 14 mmol/L Normal 10-20 [facility] Comment on above: Order Comment: [facility] has implemented the eGFR calculation approach that does not have a coefficient for race that conforms to the NKF-ASN Task Force Recommendations. Performed By: #### 4 6953 #### LAB [address] [place], [place] [address] Les Malone M.D. [id number] Chloride [Moles/Vol] 114 mmol/L High 98-108 [facility] Comment on above: Order Comment: [facility] has implemented the eGFR calculation approach that does not have a coefficient for race that conforms to the NKF-ASN Task Force Recommendations. Performed By: #### 4 6953 #### LAB [address] [address] Les Malone M.D. [id number] Creatinine [Mass/Vol] 0.93 mg/dL Normal 0.50-1.30 [facility] Comment on above: Order Comment: [facility] has implemented the eGFR calculation approach that does not have a coefficient for race that conforms to the NKF-ASN Task Force Recommendations. Performed By: #### 4 6953 #### LAB [address] [place], [place] [address] Les Malone M.D. [id number] EGFR 103 mL/min/1.73 m2 Normal >=60 [facility] Comment on above: Order Comment: [facility] has implemented the eGFR calculation approach that does not have a coefficient for race that conforms to the NKF-ASN Task Force Recommendations. Result Comment: Fanta mated GFR was calculated using the 2020 CKD-EPI creatinine equation. Performed By: #### 4 6953 #### LAB [address] [address] Les Malone M.D. [id number] Glucose [Mass/Vol] 160 mg/dL High 65-99 [facility] Comment on above: Order Comment: [facility] has implemented the eGFR calculation approach that does not have a coefficient for race that conforms to the NKF-ASN Task Force Recommendations. Performed By: #### 4 6953 ####[facility] [address] [address] Les Malone M.D. [id number] HCO3 (Bld) [Moles/Vol] 25 mmol/L Normal 21-[address] [facility] Comment on above: Order Comment: [facility] has implemented the eGFR calculation approach that does not have a coefficient for race that conforms to the NKF-ASN Task Force Recommendations. Performed By: #### 4 6953 #### LAB [address] [address] Les Malone M.D. [id number] Potassium [Moles/Vol] 4.2 mmol/L Normal 3.5-5.1 [facility] Comment on above: Order Comment: [facility] has implemented the eGFR calculation approach that does not have a coefficient for race that conforms to the NKF-ASN Task Force Recommendations. Performed By: #### 4 6953 ####[facility] [address] [address] Les Malone M.D. [id number] Sodium [Moles/Vol] 149 mmol/L High 135-145 [facility] Comment on above: Order Comment: [facility] has implemented the eGFR calculation approach that does not have a coefficient for race that conforms to the NKF-ASN Task Force Recommendations. Performed By: #### 4 6953 ####[facility] [address] [address] Les Malone M.D. [id number] Urea nitrogen [Mass/Vol] 54 mg/dL High 8-[address] [facility] Comment on above: Order Comment: [facility] has implemented the eGFR calculation approach that does not have a coefficient for race that conforms to the NKF-ASN Task Force Recommendations. Performed By: #### 4 6953 #### LAB [address] [place], [place] [address] Les Malone M.D. [id number] Urea nitrogen/Creatinine [Mass ratio] 58.1 mg/mg High 10.0-20.[address] [facility] Comment on above: Order Comment: [facility] has implemented the eGFR calculation approach that does not have a coefficient for race that conforms to the NKF-ASN Task Force Recommendations. Performed By: #### 4 6953 #### LAB [address] [address] Les Malone M.D. [id number] ECHOCARDIOGRAM COMPLETE W CO NTRASTon 01-11-2024 ECHOCARDIOGRAM COMPLETE W CONTRAST Normal [facility] MAGNESIUM LEVELon 01-11-2024 Magnesium [Mass/Vol] 2.5 mg/dL High 1.6-2.4 [facility] Comment on above: Performed By: #### 4 6109 #### LAB [address] [address] Les Malone M.D. [id number] MRSA DNA AMPLIFIED PROBEon 0 01-11-2024 MRSA DNA AMPLIFIED PROBE Negative Normal Not Detected, MRSA NEGATIVE [facility] Comment on above: Performed By: #### 4 8061 #### LAB [address] [address] Les Malone M.D. [id number] PHOSPHORUSon 01-11-2024 Phosphate [Mass/Vol] 3.9 mg/dL Normal 2.7-4.5 [facility] Comment on above: Performed By: #### 4 6299 #### LAB [address] [address] Les Malone M.D. [id number] POC ARTERIAL BLOOD GAS PANEL -[facility] 01-11-2024 [id number] 303.1 mm Hg Normal [facility] Comment on above: Performed By: #### 4 8716 ####[facility] [address] [address] Les Malone M.D. [id number] BASE EXCESS, ARTERIAL 3.5 High -2.0-2.0 [facility] Comment on above: Performed By: #### 4 8716 ####[facility] [address] [address] Les Malone M.D. [id number] FIO2 [address] [facility] Comment on above: Performed By: #### 4 8716 #### LAB [address] [address] Les Malone M.D. [id number] HCO3 (Bld) [Moles/Vol] 27.0 mmol/L High 22.0-26.[address] [facility] Comment on above: Performed By: #### 4 8716 #### LAB [address] [address] Les Malone M.D. [id number] Hematocrit (Bld) [Volume fraction] 23.1 % Low 41.0-53.[address] [facility] Comment on above: Performed By: #### 4 8716 #### LAB [address] [address] Les Malone M.D. [id number] Hemoglobin (Bld) [Mass/Vol] 7.5 g/dL Low 13.5-17.[address] [facility] Comment on above: Performed By: #### 4 8716 #### LAB [address] [address] eLs Malone M.D. [id number] O2 SATURATION ARTERIAL > High 92.0-99.[address] [facility] Comment on above: Performed By: #### 4 8716 #### LAB [address] [place] [address] Les Malone M.D. [id number] PCO2 ARTERIAL 35.2 mm Hg Normal 35.0-45.[address] [facility] Comment on above: Performed By: #### 4 8716 #### LAB [address] [place] [address] Les Malone M.D. [id number] PEEP RAD 8 [facility] Comment on above: Performed By: #### 4 8716 ####[facility] [address] [address] Les Malone M.D. [id number] PH ARTERIAL 7.49 High 7.35-7.[address] [facility] Comment on above: Performed By: #### 4 8716 ####[facility] [address] [address] Les Malone M.D. [id number] PO2 ARTERIAL 204 mm Hg High 80-[address] [facility] Comment on above: Performed By: #### 4 8716 ####[facility] [address] [address] Les Malone M.D. [id number] RESP RATE RAD 22 [facility] Comment on above: Performed By: #### 4 8716 ####[facility] [address] [address] Les Malone M.D. [id number] SPECIMEN SOURCE RADIANCE Not specified [facility] Comment on above: Performed By: #### 4 8716 ####[facility] [address] [address] Les Malone M.D. [id number] TIDAL VOLUME RAD 480 [facility] Comment on above: Performed By: #### 4 8716 ####[facility] LAB [address] [place] [address] Les Malone M.D. [id number] POC GLUCOSE [facility] 024 Glucose [Mass/Vol] 177 mg/dL High 65-99 [facility] Comment on above: Performed By: #### 4 6932 ####[facility] [address] [place] [address] Les Malone M.D. [id number] Glucose [Mass/Vol] 199 mg/dL High 65-99 [facility] Comment on above: Performed By: #### 4 6932 ####[facility] [address] [place] [address] Les Malone M.D. [id number] Glucose [Mass/Vol] 177 mg/dL High [address] [place] [address] Comment on above: Performed By: #### 4 6932 #### LAB [address] [place] [address] Les Malone M.D. [id number] Glucose [Mass/Vol] 169 mg/dL [address] Comment on above: Performed By: #### 4 6932 ####[facility] [address] [place] [address] Les Malone M.D. [id number] Glucose [Mass/Vol] 161 mg/dL [address] Comment on above: Performed By: #### 4 6932 #### LAB [address] [place] [address] Les Malone M.D. [id number] Glucose [Mass/Vol] 185 mg/dL [address] Comment on above: Performed By: #### 4 6932 #### LAB [address] [place] [address] Les Malone M.D. [id number] SPUTUM AEROBIC CULTUREon SPUTUM AEROBIC CULTURE RESPIRATORY CULTURE Normal Wally after 48 hrs GRAM STAIN RESULT Many WBC Rare Epithelial Cells No Organisms Seen Normal [facility] Comment on above: Performed By: #### 4 4046 ####[facility] [address] [place] [address] Yonny Toro M.D. [id number] URINALYSISon 01-11-2024 BACTERIA, URINE Rare Abnormal None Seen [facility] Comment on above: Order Comment: Micro scopic examination is performed on all urinalysis samples and only positive findings are reported. The test for blood on the chemical analytic portion of urinalysis may also be positive due to hemoglobinuria and myoglobinuria and if red blood cells are present they are quantified by microscopic examination. Performed By: #### 4 6625 #### LAB [address] [place] [address] Les Malone M.D. [id number] BILIRUBIN, URINE Negative Normal Negative [facility] Comment on above: Order Comment: Micro scopic examination is performed on all urinalysis samples and only positive findings are reported. The test for blood on the chemical analytic portion of urinalysis may also be positive due to hemoglobinuria and myoglobinuria and if red blood cells are present they are quantified by microscopic examination. Performed By: #### 4 6625 #### LAB [address] [place] [address] Les Malone M.D. [id number] BLOOD, URINE Negative Normal Negative [facility] Comment on above: Order Comment: Micro scopic examination is performed on all urinalysis samples and only positive findings are reported. The test for blood on the chemical analytic portion of urinalysis may also be positive due to hemoglobinuria and myoglobinuria and if red blood cells are present they are quantified by microscopic examination. Performed By: #### 4 6625 #### LAB [address] [place] [address] Les Malone M.D. [id number] Clarity (U) Cloudy Abnormal Clear [facility] Comment on above: Order Comment: Micro scopic examination is performed on all urinalysis samples and only positive findings are reported. The test for blood on the chemical analytic portion of urinalysis may also be positive due to hemoglobinuria and myoglobinuria and if red blood cells are present they are quantified by microscopic examination. Performed By: #### 4 6625 #### LAB [address] [place] [address] Les Malone M.D. [id number] Color (U) Yellow Normal Colorless, Yellow [facility] Comment on above: Order Comment: Micro scopic examination is performed on all urinalysis samples and only positive findings are reported. The test for blood on the chemical analytic portion of urinalysis may also be positive due to hemoglobinuria and myoglobinuria and if red blood cells are present they are quantified by microscopic examination. Performed By: #### 4 6625 #### LAB [address] [place] [address] Les Malone M.D. [id number] Glucose Ql (U) Negative Normal Negative [facility] Comment on above: Order Comment: Micro scopic examination is performed on all urinalysis samples and only positive findings are reported. The test for blood on the chemical analytic portion of urinalysis may also be positive due to hemoglobinuria and myoglobinuria and if red blood cells are present they are quantified by microscopic examination. Performed By: #### 4 6625 #### LAB [address] [place] [address] Les Malone M.D. [id number] GRANULAR CASTS 6 /lpf High 0-[address] [facility] Comment on above: Order Comment: Micro scopic examination is performed on all urinalysis samples and only positive findings are reported. The test for blood on the chemical analytic portion of urinalysis may also be positive due to hemoglobinuria and myoglobinuria and if red blood cells are present they are quantified by microscopic examination. Performed By: #### 4 6625 ####[facility] [address] [place] [address] Les Malone M.D. [id number] Hyaline casts LM Ql (Urine sed) 3-5 Abnormal 0-[address] [facility] Comment on above: Order Comment: Micro scopic examination is performed on all urinalysis samples and only positive findings are reported. The test for blood on the chemical analytic portion of urinalysis may also be positive due to hemoglobinuria and myoglobinuria and if red blood cells are present they are quantified by microscopic examination. Performed By: #### 4 6625 ####[facility] [address] [place] [address] Les Malone M.D. [id number] Ketones Ql (U) Negative Normal Negative [facility] Comment on above: Order Comment: Micro scopic examination is performed on all urinalysis samples and only positive findings are reported. The test for blood on the chemical analytic portion of urinalysis may also be positive due to hemoglobinuria and myoglobinuria and if red blood cells are present they are quantified by microscopic examination. Performed By: #### 4 6625 #### LAB [address] [place] [address] Les Malone M.D. [id number] Leukocyte esterase Test strip Ql (U) Trace Abnormal Negative [facility] Comment on above: Order Comment: Micro scopic examination is performed on all urinalysis samples and only positive findings are reported. The test for blood on the chemical analytic portion of urinalysis may also be positive due to hemoglobinuria and myoglobinuria and if red blood cells are present they are quantified by microscopic examination. Performed By: #### 4 6625 #### LAB [address] [place] [address] Les Malone M.D. [id number] MUCUS, URINE Rare Normal None Seen, Rare [facility] Comment on above: Order Comment: Micro scopic examination is performed on all urinalysis samples and only positive findings are reported. The test for blood on the chemical analytic portion of urinalysis may also be positive due to hemoglobinuria and myoglobinuria and if red blood cells are present they are quantified by microscopic examination. Performed By: #### 4 6625 #### LAB [address] [place] [address] Les Malone M.D. [id number] NITRITE, URINE Negative Normal Negative [facility] Comment on above: Order Comment: Micro scopic examination is performed on all urinalysis samples and only positive findings are reported. The test for blood on the chemical analytic portion of urinalysis may also be positive due to hemoglobinuria and myoglobinuria and if red blood cells are present they are quantified by microscopic examination. Performed By: #### 4 6625 #### LAB [address] [place] [address] Les Malone M.D. [id number] pH (U) 5.5 [pH] Normal 5.0-7.[address] [facility] Comment on above: Order Comment: Micro scopic examination is performed on all urinalysis samples and only positive findings are reported. The test for blood on the chemical analytic portion of urinalysis may also be positive due to hemoglobinuria and myoglobinuria and if red blood cells are present they are quantified by microscopic examination. Performed By: #### 4 6625 #### LAB [address] [place] [address] Les Malone M.D. [id number] Protein (U) [Mass/Vol] 30 mg/dL Abnormal Negative [facility] Comment on above: Order Comment: Micro [...] By: #### 4 6625 #### LAB [address] [place], [place] [address] Les Malone M.D. [id number] RENAL EPITHELIAL < High 0-0 [facility] Comment on above: Order Comment: Micro scopic examination is performed on all urinalysis samples and only positive findings are reported. The test for blood on the chemical analytic portion of urinalysis may also be positive due to hemoglobinuria and myoglobinuria and if red blood cells are present they are quantified by microscopic examination. Performed By: #### 4 6625 #### LAB [address] [place], [place] [address] Les Malone M.D. [id number] Specific gravity (U) [Rel density] 1.034 High 1.005-1.[address] [facility] Comment on above: Order Comment: Micro scopic examination is performed on all urinalysis samples and only positive findings are reported. The test for blood on the chemical analytic portion of urinalysis may also be positive due to hemoglobinuria and myoglobinuria and if red blood cells are present they are quantified by microscopic examination. Performed By: #### 4 6625 #### LAB [address] [place], [place] [address] Les Malone M.D. [id number] SQUAMOUS EPITHELIAL 3 /hpf Normal 0-4 [facility] Comment on above: Order Comment: Micro scopic examination is performed on all urinalysis samples and only positive findings are reported. The test for blood on the chemical analytic portion of urinalysis may also be positive due to hemoglobinuria and myoglobinuria and if red blood cells are present they are quantified by microscopic examination. Performed By: #### 4 6625 #### LAB [address] [place] [id number] Les Malone M.D. [id number] TRANSITIONAL EPITHELIAL < Normal 0-[address] [facility] Comment on above: Order Comment: Micro scopic examination is performed on all urinalysis samples and only positive findings are reported. The test for blood on the chemical analytic portion of urinalysis may also be positive due to hemoglobinuria and myoglobinuria and if red blood cells are present they are quantified by microscopic examination. Performed By: #### 4 6625 #### LAB [address] [place] [address] Les Malone M.D. [id number] UROBILINOGEN, URINE >=4.0 Abnormal <2.0 [facility] Comment on above: Order Comment: Micro scopic examination is performed on all urinalysis samples and only positive findings are reported. The test for blood on the chemical analytic portion of urinalysis may also be positive due to hemoglobinuria and myoglobinuria and if red blood cells are present they are quantified by microscopic examination. Performed By: #### 4 6625 #### LAB [address] [place] [address] Les Malone M.D. [id number] WBC LM.HPF (Urine sed) [#/Area] 9 /[HPF] High 0-[address] [facility] Comment on above: Order Comment: Micro scopic examination is performed on all urinalysis samples and only positive findings are reported. The test for blood on the chemical analytic portion of urinalysis may also be positive due to hemoglobinuria and myoglobinuria and if red blood cells are present they are quantified by microscopic examination. Performed By: #### 4 6625 #### LAB [address] [place] [address] Les Malone M.D. [id number] URINE AEROBIC CULTUREon 09-0 URINE AEROBIC CULTURE URINE CULTURE No Growth (<1,000 CFU/mL) [facility] Comment on above: Performed By: #### 4 4053 ####[facility] [address] [place] [address] Yonny Toro M.D. [id number] XR CHEST PA/APon 01-11-2024 XR CHEST PA/AP Normal [facility] Comment on above: Order Comment: Injur y/Trauma or Illness?:Illness/OtherHow long have you had these symptoms (acute/chronic)?:AcuteReason for exam?:ncreased leukocytosisHistory of cancer?:uSurgeries, chemotherapy, or radiation?:uType of Exam?:UnknownAdditional signs and symptoms?:ncreased leukocytosis CALCIUM, IONIZEDon CALCIUM IONIZED 4.3 mg/dL Low 4.5-5.[address] [facility] Comment on above: Performed By: #### 4 5190 #### LAB [address] [place] [address] Les Malone M.D. [id number] CBCon 01-10-2024 AUTO NRBC 1.3 % Normal [facility] Comment on above: Performed By: #### 4 [id number] #### LAB [address] [place] [address] Les Malone M.D. [id number] AUTO NRBC ABS COUNT 0.29 K/mcL High 0.00-0.00 [facility] Comment on above: Performed By: #### 4 [id number] #### LAB [address] [place] [address] Les Malone M.D. [id number] Erythrocyte distribution width (RBC) [Ratio] 19.3 % High 11.6-14.[address] [facility] Comment on above: Performed By: #### 4 [id number] #### LAB [address] [place] [address] Les Malone M.D. [id number] Hematocrit (Bld) [Volume fraction] 25.2 % Low 41.0-53.[address] [facility] Comment on above: Performed By: #### 4 [id number] #### LAB [address] [place] [address] Les Malone M.D. [id number] Hemoglobin (Bld) [Mass/Vol] 7.6 g/dL Low 13.5-17.[address] [facility] Comment on above: Performed By: #### 4 [id number] #### LAB [address] [place] [address] Les Malone M.D. [id number] MCH (RBC) [Entitic mass] 29.7 pg Normal 26.0-34.[address] [facility] Comment on above: Performed By: #### 4 [id number] #### LAB [address] [place] [address] Les Malone M.D. [id number] MCV (RBC) [Entitic vol] 98.4 fL Normal 80.0-100.[address] [facility] Comment on above: Performed By: #### 4 [id number] #### LAB [address] [place] [address] Les Malone M.D. [id number] MEAN CORPUSCULAR HEMOGLOBIN CONC 30.2 g/dL Low 31.0-37.[address] [facility] Comment on above: Performed By: #### 4 [id number] #### LAB [address] [place] [address] Les Malone M.D. [id number] Platelet mean volume (Bld) [Entitic vol] 10.5 fL Normal 9.4-12.[address] [facility] Comment on above: Performed By: #### 4 [id number] #### LAB [address] [place] [address] Les Malone M.D. [id number] Platelets (Bld) [#/Vol] 509 10*3/uL High 150-[address] [facility] Comment on above: Performed By: #### 4 [id number] #### LAB [address] [place] [address] Les Malone M.D. [id number] RBC (Bld) [#/Vol] 2.56 10*6/uL Low 4.50-5.90 [facility] Comment on above: Performed By: #### 4 [id number] #### LAB [address] [place], [place] [address] Les Malone M.D. [id number] WBC (Bld) [#/Vol] 23.13 10*3/uL High 4.50-11.00 [facility] Comment on above: Performed By: #### 4 [id number] #### LAB [address] [place] [address] Les Malone M.D. [id number] CHEM 7on 01-10-2024 Anion gap [Moles/Vol] 16 mmol/L Normal 10-20 [facility] Comment on above: Order Comment: [facility] has implemented the eGFR calculation approach that does not have a coefficient for race that conforms to the NKF-ASN Task Force Recommendations. Performed By: #### 4 6953 #### LAB [address] [place] [address] Les Malone M.D. [id number] Chloride [Moles/Vol] 111 mmol/L High 98-108 [facility] Comment on above: Order Comment: [facility] has implemented the eGFR calculation approach that does not have a coefficient for race that conforms to the NKF-ASN Task Force Recommendations. Performed By: #### 4 6953 #### LAB [address] [place] [address] Les Malone M.D. [id number] Creatinine [Mass/Vol] 0.98 mg/dL Normal 0.50-1.30 [facility] Comment on above: Order Comment: [facility] has implemented the eGFR calculation approach that does not have a coefficient for race that conforms to the NKF-ASN Task Force Recommendations. Performed By: #### 4 6953 #### LAB [address] [place] [address] Les Malone M.D. [id number] EGFR 97 mL/min/1.73 m2 Normal >=60 [facility] Comment on above: Order Comment: [facility] has implemented the eGFR calculation approach that does not have a coefficient for race that conforms to the NKF-ASN Task Force Recommendations. Result Comment: Fanta stephens GFR was calculated using the 2020 CKD-EPI creatinine equation. Performed By: #### 4 6953 #### LAB [address] [place] [id number] Les Malone M.D. [id number] Glucose [Mass/Vol] 167 mg/dL High 65-99 [facility] Comment on above: Order Comment: [facility] has implemented the eGFR calculation approach that does not have a coefficient for race that conforms to the NKF-ASN Task Force Recommendations. Performed By: #### 4 6953 #### LAB [address] [place] [address] Les Malone M.D. [id number] HCO3 (Bld) [Moles/Vol] 25 mmol/L Normal 21-[address] [facility] Comment on above: Order Comment: [facility] has implemented the eGFR calculation approach that does not have a coefficient for race that conforms to the NKF-ASN Task Force Recommendations. Performed By: #### 4 6953 #### LAB [address] [place] [address] Les Malone M.D. [id number] Potassium [Moles/Vol] 4.5 mmol/L Normal 3.5-5.1 [facility] Comment on above: Order Comment: [facility] has implemented the eGFR calculation approach that does not have a coefficient for race that conforms to the NKF-ASN Task Force Recommendations. Performed By: #### 4 6953 #### LAB [address] [place] [address] Les Malone M.D. [id number] Sodium [Moles/Vol] 147 mmol/L High 135-145 [facility] Comment on above: Order Comment: [facility] has implemented the eGFR calculation approach that does not have a coefficient for race that conforms to the NKF-ASN Task Force Recommendations. Performed By: #### 4 6953 #### LAB [address] [place], [place] [address] Les Malone M.D. [id number] Urea nitrogen [Mass/Vol] 54 mg/dL High 8-[address] [facility] Comment on above: Order Comment: [facility] has implemented the eGFR calculation approach that does not have a coefficient for race that conforms to the NKF-ASN Task Force Recommendations. Performed By: #### 4 6953 #### LAB [address] [place], [place] [address] Les Malone M.D. [id number] Urea nitrogen/Creatinine [Mass ratio] 55.1 mg/mg High 10.0-20.[address] [facility] Comment on above: Order Comment: [facility] has implemented the eGFR calculation approach that does not have a coefficient for race that conforms to the NKF-ASN Task Force Recommendations. Performed By: #### 4 6953 #### LAB [address] [place] [address] Les Malone M.D. [id number] Anion gap [Moles/Vol] 14 mmol/L Normal 10-20 [facility] Comment on above: Order Comment: [facility] has implemented the eGFR calculation approach that does not have a coefficient for race that conforms to the NKF-ASN Task Force Recommendations. Performed By: #### 4 6953 #### LAB [address] [place] [address] Les Malone M.D. [id number] Chloride [Moles/Vol] 110 mmol/L High 98-108 [facility] Comment on above: Order Comment: [facility] has implemented the eGFR calculation approach that does not have a coefficient for race that conforms to the NKF-ASN Task Force Recommendations. Performed By: #### 4 6953 ####[facility] [address] [place], [place] [address] Les Malone M.D. [id number] Creatinine [Mass/Vol] 0.93 mg/dL Normal 0.50-1.30 [facility] Comment on above: Order Comment: [facility] has implemented the eGFR calculation approach that does not have a coefficient for race that conforms to the NKF-ASN Task Force Recommendations. Performed By: #### 4 6953 ####[facility] [address] [place], [place] [address] Les Malone M.D. [id number] EGFR 103 mL/min/1.73 m2 Normal >=60 [facility] Comment on above: Order Comment: [facility] has implemented the eGFR calculation approach that does not have a coefficient for race that conforms to the NKF-ASN Task Force Recommendations. Result Comment: Fanta mated GFR was calculated using the 2020 CKD-EPI creatinine equation. Performed By: #### 4 6953 ####[facility] [address] [place] [address] Les Malone M.D. [id number] Glucose [Mass/Vol] 156 mg/dL High 65-99 [facility] Comment on above: Order Comment: [facility] has implemented the eGFR calculation approach that does not have a coefficient for race that conforms to the NKF-ASN Task Force Recommendations. Performed By: #### 4 6953 #### LAB [address] [place] [address] Les Malone M.D. [id number] HCO3 (Bld) [Moles/Vol] 26 mmol/L Normal 21-[address] [facility] Comment on above: Order Comment: [facility] has implemented the eGFR calculation approach that does not have a coefficient for race that conforms to the NKF-ASN Task Force Recommendations. Performed By: #### 4 6953 #### LAB [address] [place], [place] [address] Les Malone M.D. [id number] Potassium [Moles/Vol] 4.5 mmol/L Normal 3.5-5.1 [facility] Comment on above: Order Comment: [facility] has implemented the eGFR calculation approach that does not have a coefficient for race that conforms to the NKF-ASN Task Force Recommendations. Performed By: #### 4 6953 #### LAB [address] [place], [place] [address] Les Malone M.D. [id number] Sodium [Moles/Vol] 145 mmol/L Normal 135-145 [facility] Comment on above: Order Comment: [facility] has implemented the eGFR calculation approach that does not have a coefficient for race that conforms to the NKF-ASN Task Force Recommendations. Performed By: #### 4 6953 #### LAB [address] [place], [place] [address] Les Malone M.D. [id number] Urea nitrogen [Mass/Vol] 55 mg/dL High 8-[address] [facility] Comment on above: Order Comment: [facility] has implemented the eGFR calculation approach that does not have a coefficient for race that conforms to the NKF-ASN Task Force Recommendations. Performed By: #### 4 6953 #### LAB [address] [place] [id number] Les Malone M.D. [id number] Urea nitrogen/Creatinine [Mass ratio] 59.1 mg/mg High 10.0-20.[address] [facility] Comment on above: Order Comment: [facility] has implemented the eGFR calculation approach that does not have a coefficient for race that conforms to the NKF-ASN Task Force Recommendations. Performed By: #### 4 6953 #### LAB [address] [place], [place] [address] Les Malone M.D. [id number] CONSULTon 01-10-2024 CONSULT [facility] CONSULT [facility] MAGNESIUM LEVELon 01-10-2024 Magnesium [Mass/Vol] 2.4 mg/dL Normal 1.6-2.4 [facility] Comment on above: Performed By: #### 4 6109 #### LAB [address] [place], [place] [address] Les Malone M.D. [id number] Magnesium [Mass/Vol] 2.6 mg/dL High 1.6-2.4 [facility] Comment on above: Performed By: #### 4 6109 #### LAB [address] [place], [place] [address] Les Malone M.D. [id number] PHOSPHORUSon 01-10-2024 Phosphate [Mass/Vol] 3.6 mg/dL Normal 2.7-4.5 [facility] Comment on above: Performed By: #### 4 6299 ####[facility] [address] [place] [address] Les Malone M.D. [id number] Phosphate [Mass/Vol] 3.7 mg/dL Normal 2.7-4.5 [facility] Comment on above: Performed By: #### 4 6299 ####[facility] [address] [place] [address] Les Malone M.D. [id number] POC ARTERIAL BLOOD GAS PANEL -[facility] 01-10-2024 [id number] 192.9 mm Hg Normal [facility] Comment on above: Performed By: #### 4 8716 ####[facility] [address] [place] [address] Les Malone M.D. [id number] BASE EXCESS, ARTERIAL 4.1 High -2.0-2.0 [facility] Comment on above: Performed By: #### 4 [id number] ####[facility] [address] [address] Les Malone M.D. [id number] FIO2 [address] [facility] Comment on above: Performed By: #### 4 [id number] ####[facility] [address] [address] Les Malone M.D. [id number] HCO3 (Bld) [Moles/Vol] 27.7 mmol/L High 22.0-26.[address] [facility] Comment on above: Performed By: #### 4 [id number] ####[facility] [address] [address] Les Malone M.D. [id number] Hematocrit (Bld) [Volume fraction] 26.8 % Low 41.0-53.[address] [facility] Comment on above: Performed By: #### 4 [id number] ####[facility] [address] [address] Les Malone M.D. [id number] Hemoglobin (Bld) [Mass/Vol] 8.7 g/dL Low 13.5-17.[address] [facility] Comment on above: Performed By: #### 4 [id number] #### LAB [address] [address] Les Malone M.D. [id number] Oxygen saturation in Blood 98.7 % Normal 92.0-99.[address] [facility] Comment on above: Performed By: #### 4 [id number] #### LAB [address] [address] Les Malone M.D. [id number] PCO2 ARTERIAL 36.7 mm Hg Normal 35.0-45.[address] [facility] Comment on above: Performed By: #### 4 [id number] #### LAB [address] [address] Les Malone M.D. [id number] PEEP RAD 8 [facility] Comment on above: Performed By: #### 4 [id number] #### LAB [address] [address] Les Malone M.D. [id number] PH ARTERIAL 7.49 High 7.35-7.[address] [facility] Comment on above: Performed By: #### 4 [id number] #### LAB [address] [address] Les Malone M.D. [id number] PO2 ARTERIAL 106 mm Hg High 80-[address] [facility] Comment on above: Performed By: #### 4 [id number] #### LAB [address] [address] Les Malone M.D. [id number] RESP RATE RAD 22 [facility] Comment on above: Performed By: #### 4 [id number] #### LAB [address] [address] Les Malone M.D. [id number] SPECIMEN SOURCE RADIANCE Not specified [facility] Comment on above: Performed By: #### 4 [id number] #### LAB [address] [address] Les Malone M.D. [id number] TIDAL VOLUME RAD 480 [facility] Comment on above: Performed By: #### 4 [id number] ####[facility] [address] [address] Les Malone M.D. [id number] 88.7 mm Hg Normal [facility] Comment on above: Performed By: #### 4 [id number] ####[facility] [address] [address] Les Malone M.D. [id number] BASE EXCESS, ARTERIAL 3.6 High -2.0-2.0 [facility] Comment on above: Performed By: #### 4 8716 ####[facility] [address] [address] Les Malone M.D. [id number] CALCIUM IONIZED 4.4 mg/dL Low 4.5-5.[address] [facility] Comment on above: Performed By: #### 4 8716 #### LAB [address] [address] Les Malone M.D. [id number] CARBOXYHEMOGLOBIN 1.3 % of total Hb Normal <=1.[address] [facility] Comment on above: Result Comment: Refe rence Ranges:Suburban Non-smokers: <1.5%Smokers: 1.5-5.0%Heavy Smokers: 5.0-9.0% Performed By: #### 4 [id number] #### LAB [address] [address] Les Malone M.D. [id number] Chloride [Moles/Vol] 111 mmol/L High 98-108 [facility] Comment on above: Performed By: #### 4 [id number] ####[facility] [address] [address] Les Malone M.D. [id number] FIO2 [address] [facility] Comment on above: Performed By: #### 4 [id number] ####[facility] [address] [address] Les Malone M.D. [id number] Glucose [Mass/Vol] 175 mg/dL High 65-99 [facility] Comment on above: Performed By: #### 4 8716 #### LAB [address] [address] Les Malone M.D. [id number] HCO3 (Bld) [Moles/Vol] 28.3 mmol/L High 22.0-26.[address] [facility] Comment on above: Performed By: #### 4 [id number] #### LAB [address] [address] Les Malone M.D. [id number] Hematocrit (Bld) [Volume fraction] 24.6 % Low 41.0-53.[address] [facility] Comment on above: Performed By: #### 4 [id number] #### LAB [address] [address] Les Malone M.D. [id number] Hemoglobin (Bld) [Mass/Vol] 8.0 g/dL Low 13.5-17.[address] [facility] Comment on above: Performed By: #### 4 [id number] #### LAB [address] [address] Les Malone M.D. [id number] LACTIC ACID, WHOLE BLOOD 1.4 mmol/L Normal 0.6-2.[address] [facility] Comment on above: Performed By: #### 4 [id number] #### LAB [address] [address] Les Malone M.D. [id number] METHEMOGLOBIN < Normal 0.0-2.[address] [facility] Comment on above: Performed By: #### 4 [id number] #### LAB [address] [address] Les Malone M.D. [id number] O2 SATURATION ARTERIAL > High 92.0-99.[address] [facility] Comment on above: Performed By: #### 4 [id number] #### LAB [address] [address] Les Malone M.D. [id number] O2HB 99.0 % High 94.0-98.[address] [facility] Comment on above: Performed By: #### 4 8716 ####[facility] [address] [address] Les Malone M.D. [id number] PCO2 ARTERIAL 42.7 mm Hg Normal 35.0-45.[address] [facility] Comment on above: Performed By: #### 4 8716 ####[facility] [address] [address] Les Malone M.D. [id number] PEEP RAD 8 [facility] Comment on above: Performed By: #### 4 8716 ####[facility] [address] [address] Les Malone M.D. [id number] PH ARTERIAL 7.43 Normal 7.35-7.[address] [facility] Comment on above: Performed By: #### 4 8716 ####[facility] [address] [address] Les Malone M.D. [id number] PO2 ARTERIAL 272 mm Hg High 80-[address] [facility] Comment on above: Performed By: #### 4 8716 ####[facility] [address] [address] Les Malone M.D. [id number] Potassium [Moles/Vol] 4.4 mmol/L Normal 3.5-5.1 [facility] Comment on above: Performed By: #### 4 8716 ####[facility] [address] [address] Les Malone M.D. [id number] RESP RATE RAD 24 [facility] Comment on above: Performed By: #### 4 8716 ####[facility] [address] [address] Les Malone M.D. [id number] Sodium [Moles/Vol] 149 mmol/L High 135-145 [facility] Comment on above: Performed By: #### 4 8716 ####[facility] [address] [address] Les Malone M.D. [id number] SPECIMEN SOURCE RADIANCE Not specified [facility] Comment on above: Performed By: #### 4 [id number] #### LAB [address] [address] Les Malone M.D. [id number] TIDAL VOLUME RAD 480 Normal [facility] Comment on above: Performed By: #### 4 8716 ####[facility] [address] [address] Les Malone M.D. [id number] [facility] Glucose [Mass/Vol] 156 mg/dL High [address] [place] [address] Comment on above: Performed By: #### 4 6932 #### LAB [address] [address] Les Malone M.D. [id number] Glucose [Mass/Vol] 162 mg/dL [address] Comment on above: Performed By: #### 4 6932 ####[facility] [address] [address] Les Malone M.D. [id number] Glucose [Mass/Vol] 179 mg/dL [address] Comment on above: Performed By: #### 4 6932 #### LAB [address] [address] Les Malone M.D. [id number] Glucose [Mass/Vol] 181 mg/dL [address] Comment on above: Performed By: #### 4 6932 #### LAB [address] [address] Les Malone M.D. [id number] Glucose [Mass/Vol] 172 mg/dL [address] Comment on above: Performed By: #### 4 6932 #### LAB [address] [address] Les Malone M.D. [id number] TEMPORARY PACEMAKERon 2023 TEMPORARY PACEMAKER [facility] TROPONINon 01-10-2024 TROPONIN T DELTA CHANGE INTERPRETATION Probable acute injury or myocardial infarction. [facility] Comment on above: Performed By: #### 4 6608 #### LAB [address] [address] Les Malone M.D. [id number] TROPONIN T DELTA DIFFERENCE 24 ng/L Off scale high < = -/+ [address] [facility] Comment on above: Performed By: #### 4 6608 #### LAB [address] [address] Les Malone M.D. [id number] TROPONIN T NG/L 38 ng/L Off scale high <=22 [facility] Comment on above: Performed By: #### 4 6608 #### LAB [address] [address] Les Malone M.D. [id number] BASELINE TROPONIN T NG/L 14 ng/L Normal <=[address] [facility] Comment on above: Performed By: #### 4 6608 #### LAB [address] [address] Les Malone M.D. [id number] TROPONIN T INTERPRETATION Normal Normal [facility] Comment on above: Performed By: #### 4 6608 #### LAB [address] [address] Les Malone M.D. [id number] XR CHEST PA/APon 01-10-2024 XR CHEST PA/AP Normal [facility] Comment on above: Order Comment: Injur y/Trauma or Illness?:Injury/TraumaHow long have you had these symptoms (acute/chronic)?:AcuteReason for exam?:s/p chest compressionsHistory of cancer?:uSurgeries, chemotherapy, or radiation?:uType of Exam?:InitialMechanism of injury?:chest compressions CBCon 01-09-2024 AUTO NRBC 1.6 % Normal [facility] Comment on above: Performed By: #### 4 [id number] #### LAB [address] [address] Les Malone M.D. [id number] AUTO NRBC ABS COUNT 0.32 K/mcL High 0.00-0.00 [facility] Comment on above: Performed By: #### 4 [id number] #### LAB [address] [address] Les Malone M.D. [id number] Erythrocyte distribution width (RBC) [Ratio] 18.6 % High 11.6-14.[address] [facility] Comment on above: Performed By: #### 4 [id number] #### LAB [address] [address] Les Malone M.D. [id number] Hematocrit (Bld) [Volume fraction] 24.7 % Low 41.0-53.[address] [facility] Comment on above: Performed By: #### 4 [id number] #### LAB [address] [address] Les Malone M.D. [id number] Hemoglobin (Bld) [Mass/Vol] 7.6 g/dL Low 13.5-17.[address] [facility] Comment on above: Performed By: #### 4 [id number] #### LAB [address] [address] Les Malone M.D. [id number] MCH (RBC) [Entitic mass] 29.2 pg Normal 26.0-34.[address] [facility] Comment on above: Performed By: #### 4 [id number] #### LAB [address] [address] Les Malone M.D. [id number] MCV (RBC) [Entitic vol] 95.0 fL Normal 80.0-100.[address] [facility] Comment on above: Performed By: #### 4 [id number] #### LAB [address] [address] Les Malone M.D. [id number] MEAN CORPUSCULAR HEMOGLOBIN CONC 30.8 g/dL Low 31.0-37.[address] [facility] Comment on above: Performed By: #### 4 [id number] #### LAB [address] [address] Les Malone M.D. [id number] Platelet mean volume (Bld) [Entitic vol] 10.2 fL Normal 9.4-12.[address] [facility] Comment on above: Performed By: #### 4 [id number] #### LAB [address] [address] Les Malone M.D. [id number] Platelets (Bld) [#/Vol] 510 10*3/uL High 150-[address] [facility] Comment on above: Performed By: #### 4 [id number] #### LAB [address] [address] Les Malone M.D. [id number] RBC (Bld) [#/Vol] 2.60 10*6/uL Low 4.50-5.90 [facility] Comment on above: Performed By: #### 4 [id number] #### LAB [address] [address] Les Malone M.D. [id number] WBC (Bld) [#/Vol] 20.40 10*3/uL High 4.50-11.00 [facility] Comment on above: Performed By: #### 4 [id number] ####[facility] [address] [address] Les Malone M.D. [id number] CHEM 701-09-2024 Anion gap [Moles/Vol] 14 mmol/L Normal 10-20 [facility] Comment on above: Order Comment: [facility] has implemented the eGFR calculation approach that does not have a coefficient for race that conforms to the NKF-ASN Task Force Recommendations. Performed By: #### 4 6953 #### LAB [address] [address] Les Malone M.D. [id number] Chloride [Moles/Vol] 111 mmol/L High 98-108 [facility] Comment on above: Order Comment: [facility] has implemented the eGFR calculation approach that does not have a coefficient for race that conforms to the NKF-ASN Task Force Recommendations. Performed By: #### 4 6953 #### LAB [address] [address] Les Malone M.D. [id number] Creatinine [Mass/Vol] 0.99 mg/dL Normal 0.50-1.30 [facility] Comment on above: Order Comment: [facility] has implemented the eGFR calculation approach that does not have a coefficient for race that conforms to the NKF-ASN Task Force Recommendations. Performed By: #### 4 6953 #### LAB [address] [address] Les Malone M.D. [id number] EGFR 96 mL/min/1.73 m2 Normal >=60 [facility] Comment on above: Order Comment: [facility] has implemented the eGFR calculation approach that does not have a coefficient for race that conforms to the NKF-ASN Task Force Recommendations. Result Comment: Fanta mated GFR was calculated using the 2020 CKD-EPI creatinine equation. Performed By: #### 4 6953 #### LAB [address] [address] Les Malone M.D. [id number] Glucose [Mass/Vol] 167 mg/dL High 65-99 [facility] Comment on above: Order Comment: [facility] has implemented the eGFR calculation approach that does not have a coefficient for race that conforms to the NKF-ASN Task Force Recommendations. Performed By: #### 4 6953 #### LAB [address] [address] Les Malone M.D. [id number] HCO3 (Bld) [Moles/Vol] 26 mmol/L Normal 21-[address] [facility] Comment on above: Order Comment: [facility] has implemented the eGFR calculation approach that does not have a coefficient for race that conforms to the NKF-ASN Task Force Recommendations. Performed By: #### 4 6953 #### LAB [address] [address] Les Malone M.D. [id number] Potassium [Moles/Vol] 4.2 mmol/L Normal 3.5-5.1 [facility] Comment on above: Order Comment: [facility] has implemented the eGFR calculation approach that does not have a coefficient for race that conforms to the NKF-ASN Task Force Recommendations. Performed By: #### 4 6953 #### LAB [address] [place], [place] [address] Les Malone M.D. [id number] Sodium [Moles/Vol] 147 mmol/L High 135-145 [facility] Comment on above: Order Comment: [facility] has implemented the eGFR calculation approach that does not have a coefficient for race that conforms to the NKF-ASN Task Force Recommendations. Performed By: #### 4 6953 #### LAB [address] [place], [place] [address] Les Malone M.D. [id number] Urea nitrogen [Mass/Vol] 59 mg/dL High 8-[address] [facility] Comment on above: Order Comment: [facility] has implemented the eGFR calculation approach that does not have a coefficient for race that conforms to the NKF-ASN Task Force Recommendations. Performed By: #### 4 6953 #### LAB [address] [place], [place] [address] Les Malone M.D. [id number] Urea nitrogen/Creatinine [Mass ratio] 59.6 mg/mg High 10.0-20.[address] [facility] Comment on above: Order Comment: [facility] has implemented the eGFR calculation approach that does not have a coefficient for race that conforms to the NKF-ASN Task Force Recommendations. Performed By: #### 4 6953 #### LAB [address] [place], [place] [address] Les Malone M.D. [id number] MAGNESIUM LEVELon 01-09-2024 Magnesium [Mass/Vol] 2.5 mg/dL High 1.6-2.4 [facility] Comment on above: Performed By: #### 4 6109 #### LAB [address] [place], [place] [address] Les Malone M.D. [id number] PHOSPHORUSon 01-09-2024 Phosphate [Mass/Vol] 3.2 mg/dL Normal 2.7-4.5 [facility] Comment on above: Performed By: #### 4 6299 ####[facility] [address] [address] Les Malone M.D. [id number] POC ARTERIAL BLOOD GAS PANEL -BRENDA Salome 01-09-2024 [id number] 234.6 mm Hg [facility] Comment on above: Performed By: #### 4 8716 ####[facility] [address] [address] Les Malone M.D. [id number] BASE EXCESS, ARTERIAL 5.1 High -2.0-2.0 [facility] Comment on above: Performed By: #### 4 8716 #### LAB [address] [address] Les Malone M.D. [id number] FIO2 60 [facility] Comment on above: Performed By: #### 4 8716 #### LAB [address] [address] Les Malone M.D. [id number] HCO3 (Bld) [Moles/Vol] 28.9 mmol/L High 22.0-26.[address] [facility] Comment on above: Performed By: #### 4 8716 ####[facility] [address] [address] Les Malone M.D. [id number] Hematocrit (Bld) [Volume fraction] 26.2 % Low 41.0-53.[address] [facility] Comment on above: Performed By: #### 4 8716 ####[facility] [address] [address] Les Malone M.D. [id number] Hemoglobin (Bld) [Mass/Vol] 8.6 g/dL Low 13.5-17.[address] [facility] Comment on above: Performed By: #### 4 8716 ####[facility] [address] [address] Les Malone M.D. [id number] Oxygen saturation in Blood 99.5 % High 92.0-99.[address] [facility] Comment on above: Performed By: #### 4 8716 ####[facility] [address] [address] Les Malone M.D. [id number] PCO2 ARTERIAL 38.0 mm Hg Normal 35.0-45.[address] [facility] Comment on above: Performed By: #### 4 8716 ####[facility] [address] [address] Les Malone M.D. [id number] PEEP RAD 8 [facility] Comment on above: Performed By: #### 4 8716 ####[facility] [address] [address] Les Malone M.D. [id number] PH ARTERIAL 7.49 High 7.35-7.[address] [facility] Comment on above: Performed By: #### 4 8716 #### LAB [address] [address] Les Malone M.D. [id number] PO2 ARTERIAL 131 mm Hg High 80-[address] [facility] Comment on above: Performed By: #### 4 8716 ####[facility] [address] [address] Les Malone M.D. [id number] RESP RATE RAD 24 [facility] Comment on above: Performed By: #### 4 8716 ####[facility] [address] [address] Les Malone M.D. [id number] SPECIMEN SOURCE RADIANCE Not specified [facility] Comment on above: Performed By: #### 4 8716 ####[facility] [address] [address] Les Malone M.D. [id number] TIDAL VOLUME RAD 480 [facility] Comment on above: Performed By: #### 4 8716 ####[facility] [address] [address] Les Malone M.D. [id number] POC GLUCOSE - [facility] 024 Glucose [Mass/Vol] 178 mg/dL High 65-99 [facility] Comment on above: Performed By: #### 4 6932 ####[facility] [address] [address] Les Malone M.D. [id number] Glucose [Mass/Vol] 171 mg/dL [address] Comment on above: Performed By: #### 4 6932 ####[facility] [address] [address] Les Malone M.D. [id number] Glucose [Mass/Vol] 169 mg/dL [address] Comment on above: Performed By: #### 4 6932 #### LAB [address] [address] Les Malone M.D. [id number] Glucose [Mass/Vol] 179 mg/dL [address] Comment on above: Performed By: #### 4 6932 ####[facility] [address] [address] Les Malone M.D. [id number] Glucose [Mass/Vol] 168 mg/dL [address] Comment on above: Performed By: #### 4 6932 #### LAB [address] [address] Les Malone M.D. [id number] Glucose [Mass/Vol] 171 mg/dL [address] Comment on above: Performed By: #### 4 6932 #### LAB [address] [address] Les Malone M.D. [id number] XR CHEST PA/APon 01-09-2024 XR CHEST PA/AP [facility] Comment on above: Order Comment: Injur y/Trauma or Illness?:Illness/OtherHow long have you had these symptoms (acute/chronic)?:AcuteReason for exam?:vent managementHistory of cancer?:uSurgeries, chemotherapy, or radiation?:uType of Exam?:Subsequent/Follow-upAdditional signs and symptoms?:n CBCon 01-08-2024 AUTO NRBC 2.6 % [facility] Comment on above: Performed By: #### 4 [id number] #### LAB [address] [address] Les Malone M.D. [id number] AUTO NRBC ABS COUNT 0.45 K/mcL High 0.00-0.00 [facility] Comment on above: Performed By: #### 4 [id number] #### LAB [address] [address] Les Malone M.D. [id number] Erythrocyte distribution width (RBC) [Ratio] 17.2 % High 11.6-14.[address] [facility] Comment on above: Performed By: #### 4 [id number] #### LAB [address] [address] Les Malone M.D. [id number] Hematocrit (Bld) [Volume fraction] 25.0 % Low 41.0-53.[address] [facility] Comment on above: Performed By: #### 4 5218 #### LAB [address] [address] Les Maloen M.D. [id number] Hemoglobin (Bld) [Mass/Vol] 7.7 g/dL Low 13.5-17.[address] [facility] Comment on above: Performed By: #### 4 5218 #### LAB [address] [address] Les Malone M.D. [id number] MCH (RBC) [Entitic mass] 29.3 pg Normal 26.0-34.[address] [facility] Comment on above: Performed By: #### 4 [id number] #### LAB [address] [address] Les Malone M.D. [id number] MCV (RBC) [Entitic vol] 95.1 fL Normal 80.0-100.[address] [facility] Comment on above: Performed By: #### 4 [id number] #### LAB [address] [address] Les Malone M.D. [id number] MEAN CORPUSCULAR HEMOGLOBIN CONC 30.8 g/dL Low 31.0-37.[address] [facility] Comment on above: Performed By: #### 4 [id number] #### LAB [address] [address] Les Malone M.D. [id number] Platelet mean volume (Bld) [Entitic vol] 10.5 fL Normal 9.4-12.[address] [facility] Comment on above: Performed By: #### 4 [id number] #### LAB [address] [address] Les Malone M.D. [id number] Platelets (Bld) [#/Vol] 502 10*3/uL High 150-[address] [facility] Comment on above: Performed By: #### 4 5218 #### LAB [address] [address] Les Malone M.D. [id number] RBC (Bld) [#/Vol] 2.63 10*6/uL Low 4.50-5.90 [facility] Comment on above: Performed By: #### 4 [id number] #### LAB [address] [address] Les Malone M.D. [id number] WBC (Bld) [#/Vol] 17.17 10*3/uL High 4.50-11.00 [facility] Comment on above: Performed By: #### 4 [id number] #### LAB [address] [address] Les Malone M.D. [id number] CHEM 01-08-2024 Anion gap [Moles/Vol] 13 mmol/L Normal 10-20 [facility] Comment on above: Order Comment: [facility] has implemented the eGFR calculation approach that does not have a coefficient for race that conforms to the NKF-ASN Task Force Recommendations. Performed By: #### 4 6953 #### LAB [address] [address] Les Malone M.D. [id number] Chloride [Moles/Vol] 111 mmol/L High 98-108 [facility] Comment on above: Order Comment: [facility] has implemented the eGFR calculation approach that does not have a coefficient for race that conforms to the NKF-ASN Task Force Recommendations. Performed By: #### 4 6953 #### LAB [address] [place], [place] [address] Les Malone M.D. [id number] Creatinine [Mass/Vol] 1.03 mg/dL Normal 0.50-1.30 [facility] Comment on above: Order Comment: [facility] has implemented the eGFR calculation approach that does not have a coefficient for race that conforms to the NKF-ASN Task Force Recommendations. Performed By: #### 4 6953 #### LAB [address] [place], [place] [address] Les Malone M.D. [id number] EGFR 91 mL/min/1.73 m2 Normal >=60 [facility] Comment on above: Order Comment: [facility] has implemented the eGFR calculation approach that does not have a coefficient for race that conforms to the NKF-ASN Task Force Recommendations. Result Comment: Fanta mated GFR was calculated using the 2020 CKD-EPI creatinine equation. Performed By: #### 4 6953 #### LAB [address] [place], [place] [address] Les Malone M.D. [id number] Glucose [Mass/Vol] 164 mg/dL High 65-99 [facility] Comment on above: Order Comment: [facility] has implemented the eGFR calculation approach that does not have a coefficient for race that conforms to the NKF-ASN Task Force Recommendations. Performed By: #### 4 6953 #### LAB [address] [place], [place] [address] Les Malone M.D. [id number] HCO3 (Bld) [Moles/Vol] 28 mmol/L Normal 21-[address] [facility] Comment on above: Order Comment: [facility] [facility] has implemented the eGFR calculation approach that does not have a coefficient for race that conforms to the NKF-ASN Task Force Recommendations. Performed By: #### 4 6953 ####[facility] [address] [place], [place] [address] Les Malone M.D. [id number] Potassium [Moles/Vol] 4.2 mmol/L Normal 3.5-5.1 [facility] Comment on above: Order Comment: [facility] has implemented the eGFR calculation approach that does not have a coefficient for race that conforms to the NKF-ASN Task Force Recommendations. Performed By: #### 4 6953 ####[facility] [address] [place], [place] [address] Les Malone M.D. [id number] Sodium [Moles/Vol] 148 mmol/L High 135-145 [facility] Comment on above: Order Comment: [facility] has implemented the eGFR calculation approach that does not have a coefficient for race that conforms to the NKF-ASN Task Force Recommendations. Performed By: #### 4 6953 #### LAB [address] [place] [address] Les Malone M.D. [id number] Urea nitrogen [Mass/Vol] 68 mg/dL High 8-[address] [facility] Comment on above: Order Comment: [facility] has implemented the eGFR calculation approach that does not have a coefficient for race that conforms to the NKF-ASN Task Force Recommendations. Performed By: #### 4 6953 #### LAB [address] [place], [place] [address] Les Malone M.D. [id number] Urea nitrogen/Creatinine [Mass ratio] 66.0 mg/mg High 10.0-20.[address] [facility] Comment on above: Order Comment: [facility] has implemented the eGFR calculation approach that does not have a coefficient for race that conforms to the NKF-ASN Task Force Recommendations. Performed By: #### 4 6953 ####[facility] [address] [place], [place] [address] Les Malone M.D. [id number] CONSULTon 01-08-2024 CONSULT Normal [facility] MAGNESIUM LEVELon 01-08-2024 Magnesium [Mass/Vol] 2.5 mg/dL High 1.6-2.4 [facility] Comment on above: Performed By: #### 4 6109 #### LAB [address] [place] [address] Les Malone M.D. [id number] PHOSPHORUSon 01-08-2024 Phosphate [Mass/Vol] 3.4 mg/dL Normal 2.7-4.5 [facility] Comment on above: Performed By: #### 4 6299 #### LAB [address] [place] [address] Les Malone M.D. [id number] Phosphate [Mass/Vol] 2.4 mg/dL Low 2.7-4.5 [facility] Comment on above: Performed By: #### 4 6299 #### LAB [address] [place] [address] Les Malone M.D. [id number] POC ARTERIAL BLOOD GAS PANEL -[facility] 01-08-2024 [id number] 477.6 mm Hg Normal [facility] Comment on above: Performed By: #### 4 [id number] #### LAB [address] [place] [address] Les Malone M.D. [id number] BASE EXCESS, ARTERIAL 5.5 High -2.0-2.0 [facility] Comment on above: Performed By: #### 4 8716 #### LAB [address] [place] [address] Les Malone M.D. [id number] FIO2 [address] [facility] Comment on above: Performed By: #### 4 [id number] #### LAB [address] [place] [id number] Les Malone M.D. [id number] HCO3 (Bld) [Moles/Vol] 29.9 mmol/L High 22.0-26.[address] [facility] Comment on above: Performed By: #### 4 [id number] #### LAB [address] [place] [address] Les Malone M.D. [id number] Hematocrit (Bld) [Volume fraction] 25.7 % Low 41.0-53.[address] [facility] Comment on above: Performed By: #### 4 [id number] #### LAB [address] [place] [address] Les Malone M.D. [id number] Hemoglobin (Bld) [Mass/Vol] 8.4 g/dL Low 13.5-17.[address] [facility] Comment on above: Performed By: #### 4 [id number] #### LAB [address] [place] [address] Les Malone M.D. [id number] Oxygen saturation in Blood 99.6 % High 92.0-99.[address] [facility] Comment on above: Performed By: #### 4 [id number] #### LAB [address] [place] [address] Les Malone M.D. [id number] PCO2 ARTERIAL 42.3 mm Hg Normal 35.0-45.[address] [facility] Comment on above: Performed By: #### 4 [id number] #### LAB [address] [place] [address] Les Malone M.D. [id number] PEEP RAD 10 [facility] Comment on above: Performed By: #### 4 [id number] #### LAB [address] [place] [address] Les Malone M.D. [id number] PH ARTERIAL 7.46 High 7.35-7.[address] [facility] Comment on above: Performed By: #### 4 [id number] #### LAB [address] [place] [address] Les Malone M.D. [id number] PO2 ARTERIAL 162 mm Hg High 80-[address] [facility] Comment on above: Performed By: #### 4 [id number] #### LAB [address] [place] [address] Les Malone M.D. [id number] RESP RATE RAD 24 [facility] Comment on above: Performed By: #### 4 [id number] #### LAB [address] [place] [address] Les Malone M.D. [id number] SPECIMEN SOURCE RADIANCE Not specified [facility] Comment on above: Performed By: #### 4 8716 ####[facility] [address] [place] [address] Les Malone M.D. [id number] TIDAL VOLUME RAD 480 Normal [facility] Comment on above: Performed By: #### 4 8716 ####[facility] [address] [place] [address] Les Malone M.D. [id number] 265.8 mm Hg [facility] Comment on above: Performed By: #### 4 8716 ####[facility] [address] [place] [address] Les Malone M.D. [id number] BASE EXCESS, ARTERIAL 5.9 High -2.0-2.0 [facility] Comment on above: Performed By: #### 4 8716 ####[facility] [address] [place] [address] Les Malone M.D. [id number] FIO2 [address] [facility] Comment on above: Performed By: #### 4 8716 ####[facility] [address] [place] [address] Les Malone M.D. [id number] HCO3 (Bld) [Moles/Vol] 29.9 mmol/L High 22.0-26.[address] [facility] Comment on above: Performed By: #### 4 8716 ####[facility] [address] [place] [address] Les Malone M.D. [id number] Hematocrit (Bld) [Volume fraction] 26.9 % Low 41.0-53.[address] [facility] Comment on above: Performed By: #### 4 [id number] ####[facility] [address] [place] [address] Les Malone M.D. [id number] Hemoglobin (Bld) [Mass/Vol] 8.8 g/dL Low 13.5-17.[address] [facility] Comment on above: Performed By: #### 4 8716 #### LAB [address] [place] [address] Les Malone M.D. [id number] Oxygen saturation in Blood 99.7 % High 92.0-99.[address] [facility] Comment on above: Performed By: #### 4 8716 #### LAB [address] [place] [address] Les Malone M.D. [id number] PCO2 ARTERIAL 39.9 mm Hg Normal 35.0-45.[address] [facility] Comment on above: Performed By: #### 4 8716 ####[facility] [address] [place] [address] Les Malone M.D. [id number] PH ARTERIAL 7.48 High 7.35-7.[address] [facility] Comment on above: Performed By: #### 4 8716 ####[facility] [address] [place] [address] Les Malone M.D. [id number] PO2 ARTERIAL 205 mm Hg High 80-[address] [facility] Comment on above: Performed By: #### 4 8716 ####[facility] [address] [place] [address] Les Malone M.D. [id number] RESP RATE RAD 24 [facility] Comment on above: Performed By: #### 4 [id number] #### LAB [address] [place] [address] Les Malone M.D. [id number] SPECIMEN SOURCE RADIANCE Not specified [facility] Comment on above: Performed By: #### 4 [id number] #### LAB [address] [place] [address] Les Malone M.D. [id number] TIDAL VOLUME RAD 480 [facility] Comment on above: Performed By: #### 4 8716 ####[facility] [address] [place] [address] Les Malone M.D. [id number] POC GLUCOSE [facility] 024 Glucose [Mass/Vol] 166 mg/dL High [address] [place] [address] Comment on above: Performed By: #### 4 6932 ####[facility] [address] [place] [address] Les Malone M.D. [id number] Glucose [Mass/Vol] 157 mg/dL [address] Comment on above: Performed By: #### 4 6932 ####[facility] [address] [place] [address] Les Malone M.D. [id number] Glucose [Mass/Vol] 155 mg/dL [address] Comment on above: Performed By: #### 4 6932 #### LAB [address] [place] [address] Les Malone M.D. [id number] Glucose [Mass/Vol] 159 mg/dL [address] Comment on above: Performed By: #### 4 6932 #### LAB [address] [place] [address] Les Malone M.D. [id number] Glucose [Mass/Vol] 172 mg/dL [address] Comment on above: Performed By: #### 4 6932 #### LAB [address] [place] [address] Les Malone M.D. [id number] POTASSIUM LEVELon 01-08-2024 Potassium [Moles/Vol] 4.5 mmol/L Normal 3.5-5.1 [facility] Comment on above: Performed By: #### 4 6351 ####[facility] [address] [place] [address] Les Malone M.D. [id number] XR CHEST PA/APon 01-08-2024 XR CHEST PA/AP [facility] Comment on above: Order Comment: Injur y/Trauma or Illness?:Illness/OtherHow long have you had these symptoms (acute/chronic)?:UnknownReason for exam?:hypoxiaHistory of cancer?:uSurgeries, chemotherapy, or radiation?:uType of Exam?:Subsequent/Follow-upAdditional signs and symptoms?:u CBCon 01-07-2024 AUTO NRBC 1.5 % Normal [facility] Comment on above: Performed By: #### 4 [id number] #### LAB [address] [place] [address] Les Malone M.D. [id number] AUTO NRBC ABS COUNT 0.21 K/mcL High 0.00-0.00 [facility] Comment on above: Performed By: #### 4 [id number] #### LAB [address] [place] [address] Les Malone M.D. [id number] Erythrocyte distribution width (RBC) [Ratio] 16.8 % High 11.6-14.[address] [facility] Comment on above: Performed By: #### 4 5218 #### LAB [address] [place] [address] Les Malone M.D. [id number] Hematocrit (Bld) [Volume fraction] 24.6 % Low 41.0-53.[address] [facility] Comment on above: Performed By: #### 4 5218 #### LAB [address] [place] [address] Les Malone M.D. [id number] Hemoglobin (Bld) [Mass/Vol] 7.4 g/dL Low 13.5-17.[address] [facility] Comment on above: Performed By: #### 4 5218 #### LAB [address] [place] [address] Les Malone M.D. [id number] MCH (RBC) [Entitic mass] 29.5 pg Normal 26.0-34.[address] [facility] Comment on above: Performed By: #### 4 5218 #### LAB [address] [place] [address] Les Malone M.D. [id number] MCV (RBC) [Entitic vol] 98.0 fL Normal 80.0-100.[address] [facility] Comment on above: Performed By: #### 4 0018 ####[facility] [address] [place], [place] [address] Les Malone M.D. [id number] MEAN CORPUSCULAR HEMOGLOBIN CONC 30.1 g/dL Low 31.0-37.[address] [facility] Comment on above: Performed By: #### 4 [id number] #### LAB [address] [place], [place] [address] Les Malone M.D. [id number] Platelet mean volume (Bld) [Entitic vol] 10.4 fL Normal 9.4-12.[address] [facility] Comment on above: Performed By: #### 4 5218 #### LAB [address] [place] [address] Les Malone M.D. [id number] Platelets (Bld) [#/Vol] 424 10*3/uL High 150-[address] [facility] Comment on above: Performed By: #### 4 5218 #### LAB [address] [place] [address] Les Malone M.D. [id number] RBC (Bld) [#/Vol] 2.51 10*6/uL Low 4.50-5.90 [facility] Comment on above: Performed By: #### 4 [id number] #### LAB [address] [place] [address] Les Malone M.D. [id number] WBC (Bld) [#/Vol] 13.97 10*3/uL High 4.50-11.00 [facility] Comment on above: Performed By: #### 4 [id number] #### LAB [address] [place] [address] Les Malone M.D. [id number] CHEM 7on 01-07-2024 Anion gap [Moles/Vol] 11 mmol/L Normal 10-20 [facility] Comment on above: Order Comment: [facility] has implemented the eGFR calculation approach that does not have a coefficient for race that conforms to the NKF-ASN Task Force Recommendations. Performed By: #### 4 6953 #### LAB [address] [place] [address] Les Malone M.D. [id number] Chloride [Moles/Vol] 115 mmol/L High 98-108 [facility] Comment on above: Order Comment: [facility] has implemented the eGFR calculation approach that does not have a coefficient for race that conforms to the NKF-ASN Task Force Recommendations. Performed By: #### 4 6953 #### LAB [address] [place] [address] Les Malone M.D. [id number] Creatinine [Mass/Vol] 1.18 mg/dL Normal 0.50-1.30 [facility] Comment on above: Order Comment: [facility] has implemented the eGFR calculation approach that does not have a coefficient for race that conforms to the NKF-ASN Task Force Recommendations. Performed By: #### 4 6953 ####[facility] [address] [place] [address] Les Malone M.D. [id number] EGFR 78 mL/min/1.73 m2 Normal >=60 [facility] Comment on above: Order Comment: [facility] has implemented the eGFR calculation approach that does not have a coefficient for race that conforms to the NKF-ASN Task Force Recommendations. Result Comment: Fanta mated GFR was calculated using the 2020 CKD-EPI creatinine equation. Performed By: #### 4 6953 ####[facility] [address] [place], [place] [address] Les Malone M.D. [id number] Glucose [Mass/Vol] 200 mg/dL High 65-99 [facility] Comment on above: Order Comment: [facility] has implemented the eGFR calculation approach that does not have a coefficient for race that conforms to the NKF-ASN Task Force Recommendations. Performed By: #### 4 6953 ####[facility] [address] [place] [address] Les Malone M.D. [id number] HCO3 (Bld) [Moles/Vol] 29 mmol/L Normal 21-[address] [facility] Comment on above: Order Comment: [facility] has implemented the eGFR calculation approach that does not have a coefficient for race that conforms to the NKF-ASN Task Force Recommendations. Performed By: #### 4 6953 #### LAB [address] [place], [place] [address] Les Malone M.D. [id number] Potassium [Moles/Vol] 4.4 mmol/L Normal 3.5-5.1 [facility] Comment on above: Order Comment: [facility] has implemented the eGFR calculation approach that does not have a coefficient for race that conforms to the NKF-ASN Task Force Recommendations. Performed By: #### 4 6953 #### LAB [address] [place] [address] Les Malone M.D. [id number] Sodium [Moles/Vol] 151 mmol/L High 135-145 [facility] Comment on above: Order Comment: [facility] has implemented the eGFR calculation approach that does not have a coefficient for race that conforms to the NKF-ASN Task Force Recommendations. Performed By: #### 4 6953 #### LAB [address] [place] [address] Les Malone M.D. [id number] Urea nitrogen [Mass/Vol] 63 mg/dL High 8-[address] [facility] Comment on above: Order Comment: [facility] has implemented the eGFR calculation approach that does not have a coefficient for race that conforms to the NKF-ASN Task Force Recommendations. Performed By: #### 4 6953 ####[facility] [address] [place] [address] Les Malone M.D. [id number] Urea nitrogen/Creatinine [Mass ratio] 53.4 mg/mg High 10.0-20.[address] [facility] Comment on above: Order Comment: [facility] has implemented the eGFR calculation approach that does not have a coefficient for race that conforms to the NKF-ASN Task Force Recommendations. Performed By: #### 4 6953 #### LAB [address] [place] [address] Les Malone M.D. [id number] CT HEAD OR BRAIN WITHOUT CON TRASTon 01-07-2024 CT HEAD OR BRAIN WITHOUT CONTRAST Normal [facility] Comment on above: Order Comment: Injur y/Trauma or Illness?:Illness/OtherHow long have you had these symptoms (acute/chronic)?:AcuteReason for exam?:Follow up, EVD, s/p cardiac arrest 01/06/24Type of Exam?:Subsequent/Follow-upAdditional signs and symptoms?:. CV IR IVC FILTER INSERTon CV IR IVC FILTER INSERT Normal [facility] MAGNESIUM LEVELon 01-07-2024 Magnesium [Mass/Vol] 2.6 mg/dL High 1.6-2.4 [facility] Comment on above: Performed By: #### 4 6109 #### LAB [address] [place] [address] Les Malone M.D. [id number] PHOSPHORUSon 01-07-2024 Phosphate [Mass/Vol] 2.2 mg/dL Low 2.7-4.5 [facility] Comment on above: Performed By: #### 4 6299 ####[facility] [address] [place] [address] Les Malone M.D. [id number] Phosphate [Mass/Vol] 1.2 mg/dL Low 2.7-4.5 [facility] Comment on above: Performed By: #### 4 6299 #### LAB [address] [place] [address] Les Malone M.D. [id number] POC ARTERIAL BLOOD GAS PANEL -[facility] 01-07-2024 [id number] 377.1 mm Hg [facility] Comment on above: Performed By: #### 4 [id number] #### LAB [address] [place] [address] Les Malone M.D. [id number] BASE EXCESS, ARTERIAL 5.8 High -2.0-2.0 [facility] Comment on above: Performed By: #### 4 8716 #### LAB [address] [place] [address] Les Malone M.D. [id number] FIO2 [address] [facility] Comment on above: Performed By: #### 4 8716 #### LAB [address] [place] [address] Les Malone M.D. [id number] HCO3 (Bld) [Moles/Vol] 30.3 mmol/L High 22.0-26.[address] [facility] Comment on above: Performed By: #### 4 8716 #### LAB [address] [place] [address] Les Malone M.D. [id number] Hematocrit (Bld) [Volume fraction] 25.0 % Low 41.0-53.[address] [facility] Comment on above: Performed By: #### 4 8716 #### LAB [address] [place] [address] Les Malone M.D. [id number] Hemoglobin (Bld) [Mass/Vol] 8.2 g/dL Low 13.5-17.[address] [facility] Comment on above: Performed By: #### 4 8716 #### LAB [address] [place] [address] Les Malone M.D. [id number] Oxygen saturation in Blood 98.0 % Normal 92.0-99.[address] [facility] Comment on above: Performed By: #### 4 8716 #### LAB [address] [place] [address] Les Malone M.D. [id number] PCO2 ARTERIAL 43.0 mm Hg Normal 35.0-45.[address] [facility] Comment on above: Performed By: #### 4 8716 ####[facility] [address] [place] [address] Les Malone M.D. [id number] PEEP RAD 8 [facility] Comment on above: Performed By: #### 4 8716 ####[facility] [address] [place] [address] Les Malone M.D. [id number] PH ARTERIAL 7.46 High 7.35-7.[address] [facility] Comment on above: Performed By: #### 4 8716 #### LAB [address] [place] [address] Les Malone M.D. [id number] PO2 ARTERIAL 91 mm Hg Normal 80-[address] [facility] Comment on above: Performed By: #### 4 8716 ####[facility] [address] [place] [address] Les Malone M.D. [id number] RESP RATE RAD [address] [facility] Comment on above: Performed By: #### 4 8716 ####[facility] [address] [place] [address] Les Malone M.D. [id number] SPECIMEN SOURCE RADIANCE Not specified [facility] Comment on above: Performed By: #### 4 8716 #### LAB [address] [place] [address] Les Malone M.D. [id number] TIDAL VOLUME RAD 480 Normal [facility] Comment on above: Performed By: #### 4 8716 #### LAB [address] [place] [address] Les Malone M.D. [id number] 452.1 mm Hg [facility] Comment on above: Performed By: #### 4 8716 #### LAB [address] [place] [address] Les Malone M.D. [id number] BASE EXCESS, ARTERIAL 6.0 High -2.0-2.0 [facility] Comment on above: Performed By: #### 4 8716 ####[facility] [address] [place] [address] Les Malone M.D. [id number] FIO2 90 [facility] Comment on above: Performed By: #### 4 8716 ####[facility] [address] [place] [address] Les Malone M.D. [id number] HCO3 (Bld) [Moles/Vol] 29.9 mmol/L High 22.0-26.[address] [facility] Comment on above: Performed By: #### 4 8716 #### LAB [address] [place] [address] Les Malone M.D. [id number] Hematocrit (Bld) [Volume fraction] 35.0 % Low 41.0-53.[address] [facility] Comment on above: Performed By: #### 4 8716 #### LAB [address] [place] [address] Les Malone M.D. [id number] Hemoglobin (Bld) [Mass/Vol] 11.4 g/dL Low 13.5-17.[address] [facility] Comment on above: Performed By: #### 4 8716 ####[facility] [address] [place] [address] Les Malone M.D. [id number] Oxygen saturation in Blood 98.8 % Normal 92.0-99.[address] [facility] Comment on above: Performed By: #### 4 8716 ####[facility] [address] [place] [address] Les Malone M.D. [id number] PCO2 ARTERIAL 39.8 mm Hg Normal 35.0-45.[address] [facility] Comment on above: Performed By: #### 4 8716 #### LAB [address] [place] [address] Les Malone M.D. [id number] PEEP RAD [address] [facility] Comment on above: Performed By: #### 4 8716 #### LAB [address] [place] [address] Les Malone M.D. [id number] PH ARTERIAL 7.48 High 7.35-7.[address] [facility] Comment on above: Performed By: #### 4 8716 ####[facility] [address] [place] [address] Les Malone M.D. [id number] PO2 ARTERIAL 124 mm Hg High 80-[address] [facility] Comment on above: Performed By: #### 4 8716 #### LAB [address] [place] [address] Les Malone M.D. [id number] RESP RATE RAD 24 [facility] Comment on above: Performed By: #### 4 8716 #### LAB [address] [place] [address] Les Malone M.D. [id number] SPECIMEN SOURCE RADIANCE Brachial, right Normal [facility] Comment on above: Performed By: #### 4 8716 ####[facility] [address] [place] [address] Les Malone M.D. [id number] TIDAL VOLUME RAD 560 [facility] Comment on above: Performed By: #### 4 8716 ####[facility] [address] [place] [address] Les Malone M.D. [id number] 392.8 mm Hg [facility] Comment on above: Performed By: #### 4 8716 ####[facility] [address] [place] [address] Les Malone M.D. [id number] BASE EXCESS, ARTERIAL 6.7 High -2.0-2.0 [facility] Comment on above: Performed By: #### 4 8716 ####[facility] [address] [place] [address] Les Malone M.D. [id number] FIO2 70 [facility] Comment on above: Performed By: #### 4 8716 ####[facility] [address] [place] [address] Les Malone M.D. [id number] HCO3 (Bld) [Moles/Vol] 29.5 mmol/L High 22.0-26.[address] [facility] Comment on above: Performed By: #### 4 8716 ####[facility] [address] [place] [address] eLs Malone M.D. [id number] Hematocrit (Bld) [Volume fraction] 25.0 % Low 41.0-53.[address] [facility] Comment on above: Performed By: #### 4 8716 ####[facility] [address] [place] [address] Les Malone M.D. [id number] Hemoglobin (Bld) [Mass/Vol] 8.1 g/dL Low 13.5-17.[address] [facility] Comment on above: Performed By: #### 4 8716 #### LAB [address] [place] [address] Les Malone M.D. [id number] Oxygen saturation in Blood 91.2 % Low 92.0-99.[address] [facility] Comment on above: Performed By: #### 4 8716 #### LAB [address] [place] [address] Les Malone M.D. [id number] PCO2 ARTERIAL 33.6 mm Hg Low 35.0-45.[address] [facility] Comment on above: Performed By: #### 4 8716 #### LAB [address] [place] [address] Les Malone M.D. [id number] PEEP RAD 8 [facility] Comment on above: Performed By: #### 4 8716 #### LAB [address] [place] [address] Les Malone M.D. [id number] PH ARTERIAL 7.55 High 7.35-7.[address] [facility] Comment on above: Performed By: #### 4 8716 #### LAB [address] [place] [address] Les Malone M.D. [id number] PO2 ARTERIAL 51 mm Hg Low 80-[address] [facility] Comment on above: Performed By: #### 4 8716 #### LAB [address] [place] [address] Les Malone M.D. [id number] RESP RATE RAD 24 [facility] Comment on above: Performed By: #### 4 8716 #### LAB [address] [place] [address] Les Malone M.D. [id number] SPECIMEN SOURCE RADIANCE Radial, right [facility] Comment on above: Performed By: #### 4 8716 ####[facility] [address] [place] [address] Les Malone M.D. [id number] TIDAL VOLUME RAD 560 [facility] Comment on above: Performed By: #### 4 8716 ####[facility] [address] [place] [address] Les Malone M.D. [id number] [facility] Glucose [Mass/Vol] 176 mg/dL High [address] [place] [address] Comment on above: Performed By: #### 4 6932 ####[facility] [address] [address] Les Malone M.D. [id number] Glucose [Mass/Vol] 175 mg/dL [address] Comment on above: Performed By: #### 4 6932 #### LAB [address] [address] Les Malone M.D. [id number] Glucose [Mass/Vol] 197 mg/dL [address] Comment on above: Performed By: #### 4 6932 ####[facility] [address] [address] Les Malone M.D. [id number] Glucose [Mass/Vol] 214 mg/dL [address] Comment on above: Performed By: #### 4 6932 #### LAB [address] [address] Les Malone M.D. [id number] SODIUMon 01-07-2024 Sodium [Moles/Vol] 150 mmol/L High 135-145 [facility] Comment on above: Performed By: #### 4 6501 #### LAB [address] [address] Les Malone M.D. [id number] XR CHEST PA/APon 01-07-2024 XR CHEST PA/AP [facility] Comment on above: Order Comment: Injur y/Trauma or Illness?:Illness/OtherHow long have you had these symptoms (acute/chronic)?:AcuteReason for exam?:increased o2 needHistory of cancer?:uSurgeries, chemotherapy, or radiation?:uType of Exam?:InitialAdditional signs and symptoms?:na CALCIUM, IONIZEDon CALCIUM IONIZED 4.2 mg/dL Low 4.5-5.[address] [facility] Comment on above: Performed By: #### 4 5190 #### LAB [address] [address] Les Malone M.D. [id number] CBCon 01-06-2024 AUTO NRBC 2.0 % Normal [facility] Comment on above: Performed By: #### 4 [id number] #### LAB [address] [address] Les Malone M.D. [id number] AUTO NRBC ABS COUNT 0.32 K/mcL High 0.00-0.00 [facility] Comment on above: Performed By: #### 4 [id number] #### LAB [address] [address] Les Malone M.D. [id number] Erythrocyte distribution width (RBC) [Ratio] 16.8 % High 11.6-14.[address] [facility] Comment on above: Performed By: #### 4 [id number] #### LAB [address] [address] Les Malone M.D. [id number] Hematocrit (Bld) [Volume fraction] 25.3 % Low 41.0-53.[address] [facility] Comment on above: Performed By: #### 4 [id number] #### LAB [address] [address] Les Malone M.D. [id number] Hemoglobin (Bld) [Mass/Vol] 7.3 g/dL Low 13.5-17.[address] [facility] Comment on above: Performed By: #### 4 [id number] #### LAB [address] [address] Les Malone M.D. [id number] MCH (RBC) [Entitic mass] 28.5 pg Normal 26.0-34.[address] [facility] Comment on above: Performed By: #### 4 [id number] #### LAB [address] [address] Les Malone M.D. [id number] MCV (RBC) [Entitic vol] 98.8 fL Normal 80.0-100.[address] [facility] Comment on above: Performed By: #### 4 [id number] #### LAB [address] [address] Les Malone M.D. [id number] MEAN CORPUSCULAR HEMOGLOBIN CONC 28.9 g/dL Low 31.0-37.[address] [facility] Comment on above: Performed By: #### 4 [id number] ####[facility] [address] [address] Les Malone M.D. [id number] Platelet mean volume (Bld) [Entitic vol] 10.7 fL Normal 9.4-12.[address] [facility] Comment on above: Performed By: #### 4 [id number] #### LAB [address] [address] Les Malone M.D. [id number] Platelets (Bld) [#/Vol] 410 10*3/uL High 150-[address] [facility] Comment on above: Performed By: #### 4 [id number] #### LAB [address] [address] Les Malone M.D. [id number] RBC (Bld) [#/Vol] 2.56 10*6/uL Low 4.50-5.90 [facility] Comment on above: Performed By: #### 4 [id number] #### LAB [address] [address] Les Malone M.D. [id number] WBC (Bld) [#/Vol] 16.11 10*3/uL High 4.50-11.00 [facility] Comment on above: Performed By: #### 4 [id number] #### LAB [address] [address] Les Malone M.D. [id number] AUTO NRBC 1.3 % Normal [facility] Comment on above: Performed By: #### 4 [id number] #### LAB [address] [address] Les Malone M.D. [id number] AUTO NRBC ABS COUNT 0.20 K/mcL High 0.00-0.00 [facility] Comment on above: Performed By: #### 4 [id number] #### LAB [address] [address] Les Malone M.D. [id number] Erythrocyte distribution width (RBC) [Ratio] 16.2 % High 11.6-14.[address] [facility] Comment on above: Performed By: #### 4 [id number] #### LAB [address] [address] Les Malone M.D. [id number] Hematocrit (Bld) [Volume fraction] 24.6 % Low 41.0-53.[address] [facility] Comment on above: Performed By: #### 4 [id number] #### LAB [address] [address] Les Malone M.D. [id number] Hemoglobin (Bld) [Mass/Vol] 7.3 g/dL Low 13.5-17.[address] [facility] Comment on above: Performed By: #### 4 [id number] #### LAB [address] [address] Les Malone M.D. [id number] MCH (RBC) [Entitic mass] 29.0 pg Normal 26.0-34.[address] [facility] Comment on above: Performed By: #### 4 [id number] #### LAB [address] [address] Les Malone M.D. [id number] MCV (RBC) [Entitic vol] 97.6 fL Normal 80.0-100.[address] [facility] Comment on above: Performed By: #### 4 [id number] #### LAB [address] [address] Les Malone M.D. [id number] MEAN CORPUSCULAR HEMOGLOBIN CONC 29.7 g/dL Low 31.0-37.[address] [facility] Comment on above: Performed By: #### 4 [id number] #### LAB [address] [address] Les Malone M.D. [id number] Platelet mean volume (Bld) [Entitic vol] 10.6 fL Normal 9.4-12.[address] [facility] Comment on above: Performed By: #### 4 [id number] ####[facility] [address] [address] Les Malone M.D. [id number] Platelets (Bld) [#/Vol] 387 10*3/uL Normal 150-[address] [facility] Comment on above: Performed By: #### 4 [id number] #### LAB [address] [address] Les Malone M.D. [id number] RBC (Bld) [#/Vol] 2.52 10*6/uL Low 4.50-5.90 [facility] Comment on above: Performed By: #### 4 [id number] ####[facility] [address] [address] Les Malone M.D. [id number] WBC (Bld) [#/Vol] 15.30 10*3/uL High 4.50-11.00 [facility] Comment on above: Performed By: #### 4 [id number] #### LAB [address] [address] Les Malone M.D. [id number] CHEM 7on 01-06-2024 Anion gap [Moles/Vol] 16 mmol/L Normal 10-20 [facility] Comment on above: Order Comment: [facility] has implemented the eGFR calculation approach that does not have a coefficient for race that conforms to the NKF-ASN Task Force Recommendations. Performed By: #### 4 6953 #### LAB [address] [address] Les Malone M.D. [id number] Chloride [Moles/Vol] 113 mmol/L High 98-108 [facility] Comment on above: Order Comment: [facility] has implemented the eGFR calculation approach that does not have a coefficient for race that conforms to the NKF-ASN Task Force Recommendations. Performed By: #### 4 6953 #### LAB [address] [place], [place] [address] Les Malone M.D. [id number] Creatinine [Mass/Vol] 1.27 mg/dL Normal 0.50-1.30 [facility] Comment on above: Order Comment: [facility] has implemented the eGFR calculation approach that does not have a coefficient for race that conforms to the NKF-ASN Task Force Recommendations. Performed By: #### 4 6953 #### LAB [address] [place], [place] [address] Les Malone M.D. [id number] EGFR 71 mL/min/1.73 m2 Normal >=60 [facility] Comment on above: Order Comment: [facility] has implemented the eGFR calculation approach that does not have a coefficient for race that conforms to the NKF-ASN Task Force Recommendations. Result Comment: Fanta mated GFR was calculated using the 2020 CKD-EPI creatinine equation. Performed By: #### 4 6953 #### LAB [address] [place], [place] [address] Les Malone M.D. [id number] Glucose [Mass/Vol] 187 mg/dL High 65-99 [facility] Comment on above: Order Comment: [facility] has implemented the eGFR calculation approach that does not have a coefficient for race that conforms to the NKF-ASN Task Force Recommendations. Performed By: #### 4 6953 ####[facility] [address] [place], [place] [address] Les Malone M.D. [id number] HCO3 (Bld) [Moles/Vol] 27 mmol/L Normal 21-[address] [facility] Comment on above: Order Comment: [facility] has implemented the eGFR calculation approach that does not have a coefficient for race that conforms to the NKF-ASN Task Force Recommendations. Performed By: #### 4 6953 #### LAB [address] [place], [place] [address] Les Malone M.D. [id number] Potassium [Moles/Vol] 4.5 mmol/L Normal 3.5-5.1 [facility] Comment on above: Order Comment: [facility] has implemented the eGFR calculation approach that does not have a coefficient for race that conforms to the NKF-ASN Task Force Recommendations. Performed By: #### 4 6953 ####[facility] [address] [place], [place] [address] Les Malone M.D. [id number] Sodium [Moles/Vol] 151 mmol/L High 135-145 [facility] Comment on above: Order Comment: [facility] has implemented the eGFR calculation approach that does not have a coefficient for race that conforms to the NKF-ASN Task Force Recommendations. Performed By: #### 4 6953 #### LAB [address] [place], [place] [address] Les Malone M.D. [id number] Urea nitrogen [Mass/Vol] 60 mg/dL High 8-[address] [facility] Comment on above: Order Comment: [facility] has implemented the eGFR calculation approach that does not have a coefficient for race that conforms to the NKF-ASN Task Force Recommendations. Performed By: #### 4 6953 #### LAB [address] [address] Les Malone M.D. [id number] Urea nitrogen/Creatinine [Mass ratio] 47.2 mg/mg High 10.0-20.[address] [facility] Comment on above: Order Comment: [facility] has implemented the eGFR calculation approach that does not have a coefficient for race that conforms to the NKF-ASN Task Force Recommendations. Performed By: #### 4 6953 ####[facility] [address] [place], [place] [address] Les Malone M.D. [id number] Anion gap [Moles/Vol] 11 mmol/L Normal 10-20 [facility] Comment on above: Order Comment: [facility] has implemented the eGFR calculation approach that does not have a coefficient for race that conforms to the NKF-ASN Task Force Recommendations. Performed By: #### 4 6953 #### LAB [address] [place], [place] [address] Les Malone M.D. [id number] Chloride [Moles/Vol] 111 mmol/L High 98-108 [facility] Comment on above: Order Comment: [facility] has implemented the eGFR calculation approach that does not have a coefficient for race that conforms to the NKF-ASN Task Force Recommendations. Performed By: #### 4 6953 #### LAB [address] [place], [place] [address] Les Malone M.D. [id number] Creatinine [Mass/Vol] 1.15 mg/dL Normal 0.50-1.30 [facility] Comment on above: Order Comment: [facility] has implemented the eGFR calculation approach that does not have a coefficient for race that conforms to the NKF-ASN Task Force Recommendations. Performed By: #### 4 6953 #### LAB [address] [place], [place] [address] Les Malone M.D. [id number] EGFR 80 mL/min/1.73 m2 Normal >=60 [facility] Comment on above: Order Comment: [facility] has implemented the eGFR calculation approach that does not have a coefficient for race that conforms to the NKF-ASN Task Force Recommendations. Result Comment: Fanta mated GFR was calculated using the 2020 CKD-EPI creatinine equation. Performed By: #### 4 6953 #### LAB [address] [place], [place] [address] Les Malone M.D. [id number] Glucose [Mass/Vol] 201 mg/dL High 65-99 [facility] Comment on above: Order Comment: [facility] has implemented the eGFR calculation approach that does not have a coefficient for race that conforms to the NKF-ASN Task Force Recommendations. Performed By: #### 4 6953 #### LAB [address] [place], [place] [address] Les Malone M.D. [id number] HCO3 (Bld) [Moles/Vol] 31 mmol/L Normal 21-[address] [facility] Comment on above: Order Comment: [facility] has implemented the eGFR calculation approach that does not have a coefficient for race that conforms to the NKF-ASN Task Force Recommendations. Performed By: #### 4 6953 #### LAB [address] [address] Les Malone M.D. [id number] Potassium [Moles/Vol] 4.5 mmol/L Normal 3.5-5.1 [facility] Comment on above: Order Comment: [facility] has implemented the eGFR calculation approach that does not have a coefficient for race that conforms to the NKF-ASN Task Force Recommendations. Performed By: #### 4 6953 #### LAB [address] [address] Les Malone M.D. [id number] Sodium [Moles/Vol] 148 mmol/L High 135-145 [facility] Comment on above: Order Comment: [facility] has implemented the eGFR calculation approach that does not have a coefficient for race that conforms to the NKF-ASN Task Force Recommendations. Performed By: #### 4 6953 #### LAB [address] [place], [place] [address] Les Malone M.D. [id number] Urea nitrogen [Mass/Vol] 55 mg/dL High 8-[address] [facility] Comment on above: Order Comment: [facility] has implemented the eGFR calculation approach that does not have a coefficient for race that conforms to the NKF-ASN Task Force Recommendations. Performed By: #### 4 6953 ####[facility] [address] [address] Les Malone M.D. [id number] Urea nitrogen/Creatinine [Mass ratio] 47.8 mg/mg High 10.0-20.[address] [facility] Comment on above: Order Comment: [facility] has implemented the eGFR calculation approach that does not have a coefficient for race that conforms to the NKF-ASN Task Force Recommendations. Performed By: #### 4 6953 #### LAB [address] [address] Les Malone M.D. [id number] MAGNESIUM LEVELon 01-06-2024 Magnesium [Mass/Vol] 2.8 mg/dL High 1.6-2.4 [facility] Comment on above: Performed By: #### 4 6109 ####[facility] [address] [address] Les Malone M.D. [id number] Magnesium [Mass/Vol] 2.7 mg/dL High 1.6-2.4 [facility] Comment on above: Performed By: #### 4 6109 ####[facility] [address] [address] Les Malone M.D. [id number] PHOSPHORUSon 01-06-2024 Phosphate [Mass/Vol] 2.1 mg/dL Low 2.7-4.5 [facility] Comment on above: Performed By: #### 4 6299 ####[facility] [address] [address] Les Malone M.D. [id number] POC ARTERIAL BLOOD GAS PANEL [facility] 01-06-2024 [id number] 326.6 mm Hg [facility] Comment on above: Performed By: #### 4 8716 #### LAB [address] [address] Les Malone M.D. [id number] BASE EXCESS, ARTERIAL 7.1 High -2.0-2.0 [facility] Comment on above: Performed By: #### 4 8716 ####[facility] [address] [address] Les Malone M.D. [id number] FIO2 70 [facility] Comment on above: Performed By: #### 4 8716 ####[facility] [address] [address] Les Malone M.D. [id number] HCO3 (Bld) [Moles/Vol] 30.0 mmol/L High 22.0-26.[address] [facility] Comment on above: Performed By: #### 4 8716 ####[facility] [address] [address] Les Malone M.D. [id number] Hematocrit (Bld) [Volume fraction] 24.3 % Low 41.0-53.[address] [facility] Comment on above: Performed By: #### 4 8716 ####[facility] [address] [address] Les Malone M.D. [id number] Hemoglobin (Bld) [Mass/Vol] 7.9 g/dL Low 13.5-17.[address] [facility] Comment on above: Performed By: #### 4 8716 ####[facility] [address] [address] Les Malone M.D. [id number] Oxygen saturation in Blood 99.2 % High 92.0-99.[address] [facility] Comment on above: Performed By: #### 4 8716 ####[facility] [address] [address] Les Malone M.D. [id number] PCO2 ARTERIAL 34.4 mm Hg Low 35.0-45.[address] [facility] Comment on above: Performed By: #### 4 [id number] #### LAB [address] [address] Les Malone M.D. [id number] PEEP RAD [address] [facility] Comment on above: Performed By: #### 4 8716 ####[facility] [address] [address] Les Malone M.D. [id number] PH ARTERIAL 7.55 High 7.35-7.[address] [facility] Comment on above: Performed By: #### 4 8716 ####[facility] [address] [address] Les Malone M.D. [id number] PO2 ARTERIAL 117 mm Hg High 80-[address] [facility] Comment on above: Performed By: #### 4 8716 ####[facility] [address] [address] Les Malone M.D. [id number] RESP RATE RAD 24 [facility] Comment on above: Performed By: #### 4 8716 ####[facility] [address] [address] Les Malone M.D. [id number] SPECIMEN SOURCE RADIANCE Radial, left [facility] Comment on above: Performed By: #### 4 8716 ####[facility] [address] [address] Les Malone M.D. [id number] TIDAL VOLUME RAD 560 [facility] Comment on above: Performed By: #### 4 8716 ####[facility] [address] [address] Les Malone M.D. [id number] POC GLUCOSE - [facility] 024 Glucose [Mass/Vol] 172 mg/dL High [address] Comment on above: Performed By: #### 4 6932 ####[facility] [address] [address] Les Malone M.D. [id number] Glucose [Mass/Vol] 183 mg/dL High [address] [place] [address] Comment on above: Performed By: #### 4 6932 ####[facility] [address] [address] Les Malone M.D. [id number] Glucose [Mass/Vol] 192 mg/dL High [address] [place] [address] Comment on above: Performed By: #### 4 6932 ####[facility] [address] [address] Les Malone M.D. [id number] XR CHEST PA/APon 01-06-2024 XR CHEST PA/AP [facility] Comment on above: Order Comment: Injur y/Trauma or Illness?:Illness/OtherHow long have you had these symptoms (acute/chronic)?:AcuteReason for exam?:post arrest, tube placementHistory of cancer?:uSurgeries, chemotherapy, or radiation?:uType of Exam?:InitialAdditional signs and symptoms?:. BLOOD CULTURE AEROBIC/ANAERO BICon 01-05-2024 BLOOD CULTURE AEROBIC/ANAEROBIC BLOOD CULTURE No Growth after 5 days Normal [facility] Comment on above: Performed By: #### 4 4014 #### LAB [address] [address] Les Malone M.D. [id number] CBCon 01-05-2024 AUTO NRBC 0.9 % Normal [facility] Comment on above: Performed By: #### 4 [id number] #### LAB [address] [address] Les Malone M.D. [id number] AUTO NRBC ABS COUNT 0.13 K/mcL High 0.00-0.00 [facility] Comment on above: Performed By: #### 4 [id number] #### LAB [address] [address] Les Malone M.D. [id number] Erythrocyte distribution width (RBC) [Ratio] 15.9 % High 11.6-14.[address] [facility] Comment on above: Performed By: #### 4 [id number] #### LAB [address] [address] Les Malone M.D. [id number] Hematocrit (Bld) [Volume fraction] 24.2 % Low 41.0-53.[address] [facility] Comment on above: Performed By: #### 4 [id number] #### LAB [address] [address] Les Malone M.D. [id number] Hemoglobin (Bld) [Mass/Vol] 7.4 g/dL Low 13.5-17.[address] [facility] Comment on above: Performed By: #### 4 [id number] #### LAB [address] [address] Les Malone M.D. [id number] MCH (RBC) [Entitic mass] 29.7 pg Normal 26.0-34.[address] [facility] Comment on above: Performed By: #### 4 [id number] #### LAB [address] [address] Les Malone M.D. [id number] MCV (RBC) [Entitic vol] 97.2 fL Normal 80.0-100.[address] [facility] Comment on above: Performed By: #### 4 [id number] #### LAB [address] [address] Les Malone M.D. [id number] MEAN CORPUSCULAR HEMOGLOBIN CONC 30.6 g/dL Low 31.0-37.[address] [facility] Comment on above: Performed By: #### 4 [id number] ####[facility] [address] [address] Les Malone M.D. [id number] Platelet mean volume (Bld) [Entitic vol] 11.1 fL Normal 9.4-12.[address] [facility] Comment on above: Performed By: #### 4 [id number] ####[facility] [address] [address] Les Malone M.D. [id number] Platelets (Bld) [#/Vol] 298 10*3/uL Normal 150-[address] [facility] Comment on above: Performed By: #### 4 [id number] #### LAB [address] [address] Les Malone M.D. [id number] RBC (Bld) [#/Vol] 2.49 10*6/uL Low 4.50-5.90 [facility] Comment on above: Performed By: #### 4 [id number] #### LAB [address] [address] Les Malone M.D. [id number] WBC (Bld) [#/Vol] 15.13 10*3/uL High 4.50-11.00 [facility] Comment on above: Performed By: #### 4 [id number] ####[facility] [address] [address] Les Malone M.D. [id number] CHEM 01-05-2024 Anion gap [Moles/Vol] 10 mmol/L Normal 10-20 [facility] Comment on above: Order Comment: [facility] has implemented the eGFR calculation approach that does not have a coefficient for race that conforms to the NKF-ASN Task Force Recommendations. Performed By: #### 4 6953 #### LAB [address] [place], [place] [address] Les Malone M.D. [id number] Chloride [Moles/Vol] 113 mmol/L High 98-108 [facility] Comment on above: Order Comment: [facility] has implemented the eGFR calculation approach that does not have a coefficient for race that conforms to the NKF-ASN Task Force Recommendations. Performed By: #### 4 6953 #### LAB [address] [place], [place] [address] Les Malone M.D. [id number] Creatinine [Mass/Vol] 1.03 mg/dL Normal 0.50-1.30 [facility] Comment on above: Order Comment: [facility] has implemented the eGFR calculation approach that does not have a coefficient for race that conforms to the NKF-ASN Task Force Recommendations. Performed By: #### 4 6953 #### LAB [address] [place], [place] [address] Les Malone M.D. [id number] EGFR 91 mL/min/1.73 m2 Normal >=60 [facility] Comment on above: Order Comment: [facility] has implemented the eGFR calculation approach that does not have a coefficient for race that conforms to the NKF-ASN Task Force Recommendations. Result Comment: Fanta mated GFR was calculated using the 2020 CKD-EPI creatinine equation. Performed By: #### 4 6953 ####[facility] [address] [address] Les Malone M.D. [id number] Glucose [Mass/Vol] 138 mg/dL High 65-99 [facility] Comment on above: Order Comment: [facility] has implemented the eGFR calculation approach that does not have a coefficient for race that conforms to the NKF-ASN Task Force Recommendations. Performed By: #### 4 6953 #### LAB [address] [address] Les Malone M.D. [id number] HCO3 (Bld) [Moles/Vol] 27 mmol/L Normal 21-[address] [facility] Comment on above: Order Comment: [facility] has implemented the eGFR calculation approach that does not have a coefficient for race that conforms to the NKF-ASN Task Force Recommendations. Performed By: #### 4 6953 #### LAB [address] [address] Les Malone M.D. [id number] Potassium [Moles/Vol] 6.8 mmol/L Off scale high 3.5-5.[address] [facility] Comment on above: Order Comment: [facility] has implemented the eGFR calculation approach that does not have a coefficient for race that conforms to the NKF-ASN Task Force Recommendations. Performed By: #### 4 6953 #### LAB [address] [address] Les Malone M.D. [id number] Sodium [Moles/Vol] 143 mmol/L Normal 135-145 [facility] Comment on above: Order Comment: [facility] has implemented the eGFR calculation approach that does not have a coefficient for race that conforms to the NKF-ASN Task Force Recommendations. Performed By: #### 4 6953 ####[facility] [address] [address] Les Malone M.D. [id number] Urea nitrogen [Mass/Vol] 39 mg/dL High 8-[address] [facility] Comment on above: Order Comment: [facility] has implemented the eGFR calculation approach that does not have a coefficient for race that conforms to the NKF-ASN Task Force Recommendations. Performed By: #### 4 6953 #### LAB [address] [address] Les Malone M.D. [id number] Urea nitrogen/Creatinine [Mass ratio] 37.9 mg/mg High 10.0-20.[address] [facility] Comment on above: Order Comment: [facility] has implemented the eGFR calculation approach that does not have a coefficient for race that conforms to the NKF-ASN Task Force Recommendations. Performed By: #### 4 6953 ####[facility] [address] [address] Les Malone M.D. [id number] MAGNESIUM LEVELon 01-05-2024 Magnesium [Mass/Vol] 2.5 mg/dL High 1.6-2.4 [facility] Comment on above: Performed By: #### 4 6109 ####[facility] [address] [address] Les Malone M.D. [id number] PHOSPHORUSon 01-05-2024 Phosphate [Mass/Vol] 3.0 mg/dL Normal 2.7-4.5 [facility] Comment on above: Performed By: #### 4 6299 ####[facility] [address] [address] Les Malone M.D. [id number] POC ARTERIAL BLOOD GAS PANEL [facility] 01-05-2024 [id number] 319.3 mm Hg [facility] Comment on above: Performed By: #### 4 [id number] #### LAB [address] [address] Les Malone M.D. [id number] BASE EXCESS, ARTERIAL 5.5 High -2.0-2.0 [facility] Comment on above: Performed By: #### 4 8716 ####[facility] [address] [id number] Les Malone M.D. [id number] FIO2 70 [facility] Comment on above: Performed By: #### 4 8716 ####[facility] [address] [address] Les Malone M.D. [id number] HCO3 (Bld) [Moles/Vol] 30.0 mmol/L High 22.0-26.[address] [facility] Comment on above: Performed By: #### 4 [id number] #### LAB [address] [address] Les Malone M.D. [id number] Hematocrit (Bld) [Volume fraction] 27.4 % Low 41.0-53.[address] [facility] Comment on above: Performed By: #### 4 [id number] #### LAB [address] [address] Les Malone M.D. [id number] Hemoglobin (Bld) [Mass/Vol] 8.9 g/dL Low 13.5-17.[address] [facility] Comment on above: Performed By: #### 4 [id number] #### LAB [address] [address] Les Malone M.D. [id number] Oxygen saturation in Blood 98.9 % Normal 92.0-99.[address] [facility] Comment on above: Performed By: #### 4 [id number] #### LAB [address] [address] Les Malone M.D. [id number] PCO2 ARTERIAL 43.2 mm Hg Normal 35.0-45.[address] [facility] Comment on above: Performed By: #### 4 [id number] #### LAB [address] [address] Les Malone M.D. [id number] PEEP RAD [address] [facility] Comment on above: Performed By: #### 4 [id number] #### LAB [address] [address] Les Malone M.D. [id number] PH ARTERIAL 7.45 Normal 7.35-7.[address] [facility] Comment on above: Performed By: #### 4 8716 ####[facility] [address] [address] Les Malone M.D. [id number] PO2 ARTERIAL 114 mm Hg High 80-[address] [facility] Comment on above: Performed By: #### 4 8716 ####[facility] [address] [address] Les Malone M.D. [id number] RESP RATE RAD [address] [facility] Comment on above: Performed By: #### 4 [id number] #### LAB [address] [address] Les Malone M.D. [id number] SPECIMEN SOURCE RADIANCE Brachial, left Normal [facility] Comment on above: Performed By: #### 4 [id number] #### LAB [address] [address] Les Malone M.D. [id number] TIDAL VOLUME RAD 560 Normal [facility] Comment on above: Performed By: #### 4 8716 #### LAB [address] [address] Les Malone M.D. [id number] 329.2 mm Hg [facility] Comment on above: Performed By: #### 4 8716 #### LAB [address] [address] Les Malone M.D. [id number] BASE EXCESS, ARTERIAL 3.3 High -2.0-2.0 [facility] Comment on above: Performed By: #### 4 8716 #### LAB [address] [address] Les Malone M.D. [id number] FIO2 70 [facility] Comment on above: Performed By: #### 4 8716 ####[facility] [address] [address] Les Malone M.D. [id number] HCO3 (Bld) [Moles/Vol] 29.4 mmol/L High 22.0-26.[address] [facility] Comment on above: Performed By: #### 4 8716 ####[facility] [address] [address] Les Malone M.D. [id number] Hematocrit (Bld) [Volume fraction] 23.5 % Low 41.0-53.[address] [facility] Comment on above: Performed By: #### 4 8716 ####[facility] [address] [address] Les Malone M.D. [id number] Hemoglobin (Bld) [Mass/Vol] 7.7 g/dL Low 13.5-17.[address] [facility] Comment on above: Performed By: #### 4 8716 #### LAB [address] [address] Les Malone M.D. [id number] Oxygen saturation in Blood 97.9 % Normal 92.0-99.[address] [facility] Comment on above: Performed By: #### 4 8716 #### LAB [address] [address] Les Malone M.D. [id number] PCO2 ARTERIAL 52.4 mm Hg High 35.0-45.[address] [facility] Comment on above: Performed By: #### 4 8716 #### LAB [address] [address] Les Malone M.D. [id number] PEEP RAD 8 [facility] Comment on above: Performed By: #### 4 8716 #### LAB [address] [address] Les Malone M.D. [id number] PH ARTERIAL 7.36 Normal 7.35-7.[address] [facility] Comment on above: Performed By: #### 4 8716 #### LAB [address] [address] Les Malone M.D. [id number] PO2 ARTERIAL 94 mm Hg Normal 80-[address] [facility] Comment on above: Performed By: #### 4 [id number] #### LAB [address] [address] Les Malone M.D. [id number] RESP RATE RAD 24 [facility] Comment on above: Performed By: #### 4 8716 #### LAB [address] [address] Les Malone M.D. [id number] SPECIMEN SOURCE RADIANCE Brachial, left [facility] Comment on above: Performed By: #### 4 8716 ####[facility] [address] [address] Les Malone M.D. [id number] TIDAL VOLUME RAD 450 Normal [facility] Comment on above: Performed By: #### 4 8716 ####[facility] [address] [address] Les Malone M.D. [id number] 309.3 mm Hg [facility] Comment on above: Performed By: #### 4 8716 ####[facility] [address] [address] Les Malone M.D. [id number] BASE EXCESS, ARTERIAL 3.3 High -2.0-2.0 [facility] Comment on above: Performed By: #### 4 8716 #### LAB [address] [address] Les Malone M.D. [id number] FIO2 70 [facility] Comment on above: Performed By: #### 4 8716 ####[facility] [address] [address] Les Malone M.D. [id number] HCO3 (Bld) [Moles/Vol] 29.4 mmol/L High 22.0-26.[address] [facility] Comment on above: Performed By: #### 4 8716 ####[facility] [address] [address] Les Malone M.D. [id number] Hematocrit (Bld) [Volume fraction] 26.2 % Low 41.0-53.[address] [facility] Comment on above: Performed By: #### 4 8716 #### LAB [address] [address] Les Malone M.D. [id number] Hemoglobin (Bld) [Mass/Vol] 8.5 g/dL Low 13.5-17.[address] [facility] Comment on above: Performed By: #### 4 8716 ####[facility] [address] [address] Les Malone M.D. [id number] Oxygen saturation in Blood 98.7 % Normal 92.0-99.[address] [facility] Comment on above: Performed By: #### 4 8716 #### LAB [address] [address] Les Malone M.D. [id number] PCO2 ARTERIAL 52.7 mm Hg High 35.0-45.[address] [facility] Comment on above: Performed By: #### 4 8716 ####[facility] [address] [address] Les Malone M.D. [id number] PEEP RAD 8 [facility] Comment on above: Performed By: #### 4 8716 ####[facility] [address] [address] Les Malone M.D. [id number] PH ARTERIAL 7.36 Normal 7.35-7.[address] [facility] Comment on above: Performed By: #### 4 8716 ####[facility] [address] [address] Les Malone M.D. [id number] PO2 ARTERIAL 112 mm Hg High 80-[address] [facility] Comment on above: Performed By: #### 4 8716 #### LAB [address] [address] Les Malone M.D. [id number] RESP RATE RAD 24 [facility] Comment on above: Performed By: #### 4 8716 #### LAB [address] [address] Les Malone M.D. [id number] SPECIMEN SOURCE RADIANCE Brachial, left [facility] Comment on above: Performed By: #### 4 8716 #### LAB [address] [address] Les Malone M.D. [id number] TIDAL VOLUME RAD 450 [facility] Comment on above: Performed By: #### 4 8716 ####[facility] [address] [address] Les Malone M.D. [id number] POC GLUCOSE - [facility] 024 Glucose [Mass/Vol] 179 mg/dL High [address] [place] [address] Comment on above: Performed By: #### 4 6932 #### LAB [address] [address] Les Malone M.D. [id number] Glucose [Mass/Vol] 184 mg/dL High [address] [place] [address] Comment on above: Performed By: #### 4 6932 #### LAB [address] [address] Les Malone M.D. [id number] Glucose [Mass/Vol] 172 mg/dL High [address] [place] [address] Comment on above: Performed By: #### 4 6932 #### LAB [address] [address] Les Malone M.D. [id number] POTASSIUM LEVELon 01-05-2024 Potassium [Moles/Vol] 5.1 mmol/L Normal 3.5-5.1 [facility] Comment on above: Performed By: #### 4 6351 #### LAB [address] [address] Les Malone M.D. [id number] Potassium [Moles/Vol] 5.8 mmol/L High 3.5-5.1 [facility] Comment on above: Performed By: #### 4 6351 #### LAB [address] [address] Les Malone M.D. [id number] Potassium [Moles/Vol] 7.0 mmol/L Off scale high 3.5-5.[address] [facility] Comment on above: Performed By: #### 4 6351 #### LAB [address] [address] Les Malone M.D. [id number] URINALYSISon 01-05-2024 BACTERIA, URINE Rare Abnormal None Seen [facility] Comment on above: Order Comment: Micro scopic examination is performed on all urinalysis samples and only positive findings are reported. The test for blood on the chemical analytic portion of urinalysis may also be positive due to hemoglobinuria and myoglobinuria and if red blood cells are present they are quantified by microscopic examination. Performed By: #### 4 6625 #### LAB [address] [address] Les Malone M.D. [id number] BILIRUBIN, URINE Negative Normal Negative [facility] Comment on above: Order Comment: Micro scopic examination is performed on all urinalysis samples and only positive findings are reported. The test for blood on the chemical analytic portion of urinalysis may also be positive due to hemoglobinuria and myoglobinuria and if red blood cells are present they are quantified by microscopic examination. Performed By: #### 4 6625 #### LAB [address] [address] Les Malone M.D. [id number] BLOOD, URINE Negative Normal Negative [facility] Comment on above: Order Comment: Micro scopic examination is performed on all urinalysis samples and only positive findings are reported. The test for blood on the chemical analytic portion of urinalysis may also be positive due to hemoglobinuria and myoglobinuria and if red blood cells are present they are quantified by microscopic examination. Performed By: #### 4 6625 #### LAB [address] [address] Les Malone M.D. [id number] Clarity (U) Clear Normal Clear [facility] Comment on above: Order Comment: Micro scopic examination is performed on all urinalysis samples and only positive findings are reported. The test for blood on the chemical analytic portion of urinalysis may also be positive due to hemoglobinuria and myoglobinuria and if red blood cells are present they are quantified by microscopic examination. Performed By: #### 4 6625 #### LAB [address] [address] Les Malone M.D. [id number] Color (U) Yellow Normal Colorless, Yellow [facility] Comment on above: Order Comment: Micro scopic examination is performed on all urinalysis samples and only positive findings are reported. The test for blood on the chemical analytic portion of urinalysis may also be positive due to hemoglobinuria and myoglobinuria and if red blood cells are present they are quantified by microscopic examination. Performed By: #### 4 6625 #### LAB [address] [address] Les Malone M.D. [id number] Glucose Ql (U) Negative Normal Negative [facility] Comment on above: Order Comment: Micro scopic examination is performed on all urinalysis samples and only positive findings are reported. The test for blood on the chemical analytic portion of urinalysis may also be positive due to hemoglobinuria and myoglobinuria and if red blood cells are present they are quantified by microscopic examination. Performed By: #### 4 6625 #### LAB [address] [address] Les Malone M.D. [id number] Hyaline casts LM Ql (Urine sed) 0-2 Normal 0-[address] [facility] Comment on above: Order Comment: Micro scopic examination is performed on all urinalysis samples and only positive findings are reported. The test for blood on the chemical analytic portion of urinalysis may also be positive due to hemoglobinuria and myoglobinuria and if red blood cells are present they are quantified by microscopic examination. Performed By: #### 4 6625 #### LAB [address] [address] Les Malone M.D. [id number] Ketones Ql (U) Negative Normal Negative [facility] Comment on above: Order Comment: Micro scopic examination is performed on all urinalysis samples and only positive findings are reported. The test for blood on the chemical analytic portion of urinalysis may also be positive due to hemoglobinuria and myoglobinuria and if red blood cells are present they are quantified by microscopic examination. Performed By: #### 4 6625 #### LAB [address] [address] Les Malone M.D. [id number] Leukocyte esterase Test strip Ql (U) Trace Abnormal Negative [facility] Comment on above: Order Comment: Micro scopic examination is performed on all urinalysis samples and only positive findings are reported. The test for blood on the chemical analytic portion of urinalysis may also be positive due to hemoglobinuria and myoglobinuria and if red blood cells are present they are quantified by microscopic examination. Performed By: #### 4 6625 #### LAB [address] [address] Les Malone M.D. [id number] MUCUS, URINE Rare Normal None Seen, Rare [facility] Comment on above: Order Comment: Micro scopic examination is performed on all urinalysis samples and only positive findings are reported. The test for blood on the chemical analytic portion of urinalysis may also be positive due to hemoglobinuria and myoglobinuria and if red blood cells are present they are quantified by microscopic examination. Performed By: #### 4 6625 #### LAB [address] [address] Les Malone M.D. [id number] NITRITE, URINE Negative Normal Negative [facility] Comment on above: Order Comment: Micro scopic examination is performed on all urinalysis samples and only positive findings are reported. The test for blood on the chemical analytic portion of urinalysis may also be positive due to hemoglobinuria and myoglobinuria and if red blood cells are present they are quantified by microscopic examination. Performed By: #### 4 6625 #### LAB [address] [address] Les Malone M.D. [id number] pH (U) 6.0 [pH] Normal 5.0-7.[address] [facility] Comment on above: Order Comment: Micro scopic examination is performed on all urinalysis samples and only positive findings are reported. The test for blood on the chemical analytic portion of urinalysis may also be positive due to hemoglobinuria and myoglobinuria and if red blood cells are present they are quantified by microscopic examination. Performed By: #### 4 6625 #### LAB [address] [address] Les Malone M.D. [id number] PROTEIN, URINE Negative Normal Negative [facility] Comment on above: Order Comment: Micro scopic examination is performed on all urinalysis samples and only positive findings are reported. The test for blood on the chemical analytic portion of urinalysis may also be positive due to hemoglobinuria and myoglobinuria and if red blood cells are present they are quantified by microscopic examination. Performed By: #### 4 6625 #### LAB [address] [address] Les Malone M.D. [id number] RBC, URINE < Normal 0-[address] [facility] Comment on above: Order Comment: Micro scopic examination is performed on all urinalysis samples and only positive findings are reported. The test for blood on the chemical analytic portion of urinalysis may also be positive due to hemoglobinuria and myoglobinuria and if red blood cells are present they are quantified by microscopic examination. Performed By: #### 4 6625 #### LAB [address] [address] Les Malone M.D. [id number] Specific gravity (U) [Rel density] 1.025 Normal 1.005-1.[address] [facility] Comment on above: Order Comment: Micro scopic examination is performed on all urinalysis samples and only positive findings are reported. The test for blood on the chemical analytic portion of urinalysis may also be positive due to hemoglobinuria and myoglobinuria and if red blood cells are present they are quantified by microscopic examination. Performed By: #### 4 6625 #### LAB [address] [address] Les Malone M.D. [id number] UROBILINOGEN, URINE <2.0 Normal <2.0 [facility] Comment on above: Order Comment: Micro scopic examination is performed on all urinalysis samples and only positive findings are reported. The test for blood on the chemical analytic portion of urinalysis may also be positive due to hemoglobinuria and myoglobinuria and if red blood cells are present they are quantified by microscopic examination. Performed By: #### 4 6625 #### LAB [address] [address] Les Malone M.D. [id number] WBC LM.HPF (Urine sed) [#/Area] 3 /[HPF] Normal 0-[address] [facility] Comment on above: Order Comment: Micro scopic examination is performed on all urinalysis samples and only positive findings are reported. The test for blood on the chemical analytic portion of urinalysis may also be positive due to hemoglobinuria and myoglobinuria and if red blood cells are present they are quantified by microscopic examination. Performed By: #### 4 6625 #### LAB [address] [address] Les Malone M.D. [id number] URINE AEROBIC CULTUREon URINE AEROBIC CULTURE URINE CULTURE No Growth (<1,000 CFU/mL) Normal [facility] Comment on above: Performed By: #### 4 4053 ####[facility] [address] Yonny Toro M.D. [id number] CALCIUM, IONIZEDon CALCIUM IONIZED 4.5 mg/dL Normal 4.5-5.[address] [facility] Comment on above: Performed By: #### 4 5190 #### LAB [address] [address] Les Malone M.D. [id number] CBCon 01-04-2024 AUTO NRBC 0.7 % Normal [facility] Comment on above: Performed By: #### 4 [id number] #### LAB [address] [address] Les Malone M.D. [id number] AUTO NRBC ABS COUNT 0.09 K/mcL High 0.00-0.00 [facility] Comment on above: Performed By: #### 4 5218 #### LAB [address] [address] Les Malone M.D. [id number] Erythrocyte distribution width (RBC) [Ratio] 15.4 % High 11.6-14.[address] [facility] Comment on above: Performed By: #### 4 5218 #### LAB [address] [address] Les Malone M.D. [id number] Hematocrit (Bld) [Volume fraction] 25.2 % Low 41.0-53.[address] [facility] Comment on above: Performed By: #### 4 5218 #### LAB [address] [address] Les Malone M.D. [id number] Hemoglobin (Bld) [Mass/Vol] 7.8 g/dL Low 13.5-17.[address] [facility] Comment on above: Performed By: #### 4 5218 #### LAB [address] [address] Les Malone M.D. [id number] MCH (RBC) [Entitic mass] 29.0 pg Normal 26.0-34.[address] [facility] Comment on above: Performed By: #### 4 5218 #### LAB [address] [address] Les Malone M.D. [id number] MCV (RBC) [Entitic vol] 93.7 fL Normal 80.0-100.[address] [facility] Comment on above: Performed By: #### 4 5218 #### LAB [address] [address] Les Malone M.D. [id number] MEAN CORPUSCULAR HEMOGLOBIN CONC 31.0 g/dL Normal 31.0-37.[address] [facility] Comment on above: Performed By: #### 4 5218 #### LAB [address] [address] Les Malone M.D. [id number] Platelet mean volume (Bld) [Entitic vol] 10.7 fL Normal 9.4-12.[address] [facility] Comment on above: Performed By: #### 4 5218 #### LAB [address] [address] Les Malone M.D. [id number] Platelets (Bld) [#/Vol] 266 10*3/uL Normal 150-[address] [facility] Comment on above: Performed By: #### 4 5218 #### LAB [address] [address] Les Malone M.D. [id number] RBC (Bld) [#/Vol] 2.69 10*6/uL Low 4.50-5.90 [facility] Comment on above: Performed By: #### 4 5218 #### LAB [address] [place], [place] [address] Les Malone M.D. [id number] WBC (Bld) [#/Vol] 13.30 10*3/uL High 4.50-11.00 [facility] Comment on above: Performed By: #### 4 5218 #### LAB [address] [place], [place] [address] Les Malone M.D. [id number] CHEM 701-04-2024 Anion gap [Moles/Vol] 12 mmol/L Normal 10-20 [facility] Comment on above: Order Comment: [facility] has implemented the eGFR calculation approach that does not have a coefficient for race that conforms to the NKF-ASN Task Force Recommendations. Performed By: #### 4 6953 #### LAB [address] [address] Les Malone M.D. [id number] Chloride [Moles/Vol] 109 mmol/L High 98-108 [facility] Comment on above: Order Comment: [facility] has implemented the eGFR calculation approach that does not have a coefficient for race that conforms to the NKF-ASN Task Force Recommendations. Performed By: #### 4 6953 #### LAB [address] [place], [place] [address] Les Malone M.D. [id number] Creatinine [Mass/Vol] 1.04 mg/dL Normal 0.50-1.30 [facility] Comment on above: Order Comment: [facility] has implemented the eGFR calculation approach that does not have a coefficient for race that conforms to the NKF-ASN Task Force Recommendations. Performed By: #### 4 6953 #### LAB [address] [place], [place] [address] Les Malone M.D. [id number] EGFR 90 mL/min/1.73 m2 Normal >=60 [facility] Comment on above: Order Comment: [facility] has implemented the eGFR calculation approach that does not have a coefficient for race that conforms to the NKF-ASN Task Force Recommendations. Result Comment: Fanta mated GFR was calculated using the 2020 CKD-EPI creatinine equation. Performed By: #### 4 6953 ####[facility] [address] [address] Les Malone M.D. [id number] Glucose [Mass/Vol] 142 mg/dL High 65-99 [facility] Comment on above: Order Comment: [facility] has implemented the eGFR calculation approach that does not have a coefficient for race that conforms to the NKF-ASN Task Force Recommendations. Performed By: #### 4 6953 #### LAB [address] [address] Les Malone M.D. [id number] HCO3 (Bld) [Moles/Vol] 26 mmol/L Normal 21-[address] [facility] Comment on above: Order Comment: [facility] has implemented the eGFR calculation approach that does not have a coefficient for race that conforms to the NKF-ASN Task Force Recommendations. Performed By: #### 4 6953 #### LAB [address] [address] Les Malone M.D. [id number] Potassium [Moles/Vol] 3.8 mmol/L Normal 3.5-5.1 [facility] Comment on above: Order Comment: [facility] has implemented the eGFR calculation approach that does not have a coefficient for race that conforms to the NKF-ASN Task Force Recommendations. Performed By: #### 4 6953 ####[facility] [address] [place] [address] Les Malone M.D. [id number] Sodium [Moles/Vol] 143 mmol/L Normal 135-145 [facility] Comment on above: Order Comment: [facility] has implemented the eGFR calculation approach that does not have a coefficient for race that conforms to the NKF-ASN Task Force Recommendations. Performed By: #### 4 6953 #### LAB [address] [place], [place] [address] Les Malone M.D. [id number] Urea nitrogen [Mass/Vol] 26 mg/dL High 8-[address] [facility] Comment on above: Order Comment: [facility] has implemented the eGFR calculation approach that does not have a coefficient for race that conforms to the NKF-ASN Task Force Recommendations. Performed By: #### 4 6953 #### LAB [address] [address] Les Malone M.D. [id number] Urea nitrogen/Creatinine [Mass ratio] 25.0 mg/mg High 10.0-20.[address] [facility] Comment on above: Order Comment: [facility] has implemented the eGFR calculation approach that does not have a coefficient for race that conforms to the NKF-ASN Task Force Recommendations. Performed By: #### 4 6953 #### LAB [address] [address] Les Malone M.D. [id number] MAGNESIUM LEVELon 01-04-2024 Magnesium [Mass/Vol] 2.3 mg/dL Normal 1.6-2.4 [facility] Comment on above: Performed By: #### 4 6109 #### LAB [address] [id number] Les Malone M.D. [id number] PHOSPHORUSon 01-04-2024 Phosphate [Mass/Vol] 3.2 mg/dL Normal 2.7-4.5 [facility] Comment on above: Performed By: #### 4 6299 ####[facility] [address] [id number] Les Malone M.D. [id number] POC ARTERIAL BLOOD GAS PANEL [facility] 01-04-2024 [id number] 328.8 mm Hg Normal [facility] Comment on above: Performed By: #### 4 [id number] #### LAB [address] [address] Les Malone M.D. [id number] BASE EXCESS, ARTERIAL 2.4 High -2.0-2.0 [facility] Comment on above: Performed By: #### 4 [id number] #### LAB [address] [address] Les Malone M.D. [id number] FIO2 80 [facility] Comment on above: Performed By: #### 4 [id number] #### LAB [address] [address] Les Malone M.D. [id number] HCO3 (Bld) [Moles/Vol] 28.5 mmol/L High 22.0-26.[address] [facility] Comment on above: Performed By: #### 4 [id number] #### LAB [address] [address] Les Malone M.D. [id number] Hematocrit (Bld) [Volume fraction] 36.4 % Low 41.0-53.[address] [facility] Comment on above: Performed By: #### 4 [id number] #### LAB [address] [address] Les Malone M.D. [id number] Hemoglobin (Bld) [Mass/Vol] 11.9 g/dL Low 13.5-17.[address] [facility] Comment on above: Performed By: #### 4 [id number] #### LAB [address] [address] Les Malone M.D. [id number] Oxygen saturation in Blood 99.3 % High 92.0-99.[address] [facility] Comment on above: Performed By: #### 4 [id number] #### LAB [address] [address] Les Malone M.D. [id number] PCO2 ARTERIAL 49.6 mm Hg High 35.0-45.[address] [facility] Comment on above: Performed By: #### 4 8716 ####[facility] [address] [address] Les Malone M.D. [id number] PEEP RAD 8 [facility] Comment on above: Performed By: #### 4 [id number] ####[facility] [address] [address] Les Malone M.D. [id number] PH ARTERIAL 7.37 Normal 7.35-7.[address] [facility] Comment on above: Performed By: #### 4 8716 ####[facility] [address] [address] Les Malone M.D. [id number] PO2 ARTERIAL 161 mm Hg High 80-[address] [facility] Comment on above: Performed By: #### 4 [id number] ####[facility] [address] [address] Les Malone M.D. [id number] RESP RATE RAD [address] [facility] Comment on above: Performed By: #### 4 [id number] #### LAB [address] [address] Les Malone M.D. [id number] SPECIMEN SOURCE RADIANCE Brachial, left Normal [facility] Comment on above: Performed By: #### 4 [id number] #### LAB [address] [address] Les Malone M.D. [id number] TIDAL VOLUME RAD 450 Normal [facility] Comment on above: Performed By: #### 4 [id number] #### LAB [address] [address] Les Malone M.D. [id number] 382.0 mm Hg [facility] Comment on above: Performed By: #### 4 [id number] #### LAB [address] [address] Les Malone M.D. [id number] BASE EXCESS, ARTERIAL 2.0 Normal -2.0-2.0 [facility] Comment on above: Performed By: #### 4 8716 #### LAB [address] [address] Les Malone M.D. [id number] CALCIUM IONIZED 4.5 mg/dL Normal 4.5-5.[address] [facility] Comment on above: Performed By: #### 4 8716 ####[facility] [address] [address] Les Malone M.D. [id number] CARBOXYHEMOGLOBIN < Normal <=1.5 [facility] Comment on above: Result Comment: Refe rence Ranges:Suburban Non-smokers: <1.5%Smokers: 1.5-5.0%Heavy Smokers: 5.0-9.0% Performed By: #### 4 [id number] #### LAB [address] [address] Les Malone M.D. [id number] Chloride [Moles/Vol] 111 mmol/L High 98-108 [facility] Comment on above: Performed By: #### 4 [id number] #### LAB [address] [address] Les Malone M.D. [id number] FIO2 [address] [facility] Comment on above: Performed By: #### 4 8716 #### LAB [address] [address] Les Malone M.D. [id number] Glucose [Mass/Vol] 143 mg/dL High 65-99 [facility] Comment on above: Performed By: #### 4 8716 #### LAB [address] [address] Les Malone M.D. [id number] HCO3 (Bld) [Moles/Vol] 28.3 mmol/L High 22.0-26.[address] [facility] Comment on above: Performed By: #### 4 [id number] #### LAB [address] [address] Les Malone M.D. [id number] Hematocrit (Bld) [Volume fraction] 24.7 % Low 41.0-53.[address] [facility] Comment on above: Performed By: #### 4 8716 ####[facility] [address] [address] Les Malone M.D. [id number] Hemoglobin (Bld) [Mass/Vol] 8.1 g/dL Low 13.5-17.[address] [facility] Comment on above: Performed By: #### 4 8716 #### LAB [address] [address] Les Malone M.D. [id number] LACTIC ACID, WHOLE BLOOD 1.1 mmol/L Normal 0.6-2.[address] [facility] Comment on above: Performed By: #### 4 [id number] #### LAB [address] [address] Les Malone M.D. [id number] METHEMOGLOBIN < Normal 0.0-2.[address] [facility] Comment on above: Performed By: #### 4 8716 #### LAB [address] [address] Les Malone M.D. [id number] O2HB 96.6 % Normal 94.0-98.[address] [facility] Comment on above: Performed By: #### 4 8716 #### LAB [address] [address] Les Malone M.D. [id number] Oxygen saturation in Blood 98.0 % Normal 92.0-99.[address] [facility] Comment on above: Performed By: #### 4 8716 #### LAB [address] [place] [address] Les Malone M.D. [id number] PCO2 ARTERIAL 52.6 mm Hg High 35.0-45.[address] [facility] Comment on above: Performed By: #### 4 8716 ####[facility] [address] [address] Les Malone M.D. [id number] PEEP RAD [address] [facility] Comment on above: Performed By: #### 4 8716 ####[facility] [address] [address] Les Malone M.D. [id number] PH ARTERIAL 7.34 Low 7.35-7.[address] [facility] Comment on above: Performed By: #### 4 8716 ####[facility] [address] [address] Les Malone M.D. [id number] PO2 ARTERIAL 104 mm Hg High 80-[address] [facility] Comment on above: Performed By: #### 4 8716 ####[facility] [address] [place], [place] [address] Les Malone M.D. [id number] Potassium [Moles/Vol] 3.6 mmol/L Normal 3.5-5.1 [facility] Comment on above: Performed By: #### 4 8716 ####[facility] [address] [address] Les Malone M.D. [id number] RESP RATE RAD 22 [facility] Comment on above: Performed By: #### 4 8716 ####[facility] [address] [address] Les Malone M.D. [id number] Sodium [Moles/Vol] 147 mmol/L High 135-145 [facility] Comment on above: Performed By: #### 4 8716 ####[facility] [address] [address] Les Malone M.D. [id number] SPECIMEN SOURCE RADIANCE Brachial, left Normal [facility] Comment on above: Performed By: #### 4 8716 ####[facility] [address] [address] Les Malone M.D. [id number] TIDAL VOLUME RAD 450 [facility] Comment on above: Performed By: #### 4 8716 ####[facility] [address] [address] Les Malone M.D. [id number] POC GLUCOSE - [facility] 024 Glucose [Mass/Vol] 169 mg/dL High [address] [place] [address] Comment on above: Performed By: #### 4 6932 ####[facility] [address] [address] Les Malone M.D. [id number] Glucose [Mass/Vol] 118 mg/dL High [address] [place] [address] Comment on above: Performed By: #### 4 6932 ####[facility] [address] [address] Les Malone M.D. [id number] Glucose [Mass/Vol] 125 mg/dL High [address] [place] [address] Comment on above: Performed By: #### 4 6932 ####[facility] [address] [address] Les Malone M.D. [id number] Glucose [Mass/Vol] 142 mg/dL High [facility] Comment on above: Performed By: #### 4 6932 #### LAB [address] [address] Les Malone M.D. [id number] POTASSIUM LEVELon 01-04-2024 Potassium [Moles/Vol] 5.9 mmol/L High 3.5-5.1 [facility] Comment on above: Performed By: #### 4 6351 #### LAB [address] [address] Les Malone M.D. [id number] XR CHEST PA/APon 01-04-2024 XR CHEST PA/AP Normal [facility] Comment on above: Order Comment: Injur y/Trauma or Illness?:Illness/OtherHow long have you had these symptoms (acute/chronic)?:AcuteReason for exam?:vent mgmtHistory of cancer?:uSurgeries, chemotherapy, or radiation?:uType of Exam?:InitialAdditional signs and symptoms?:na CALCIUM, IONIZEDon 4 CALCIUM IONIZED 4.4 mg/dL Low 4.5-5.[address] [facility] Comment on above: Performed By: #### 4 5190 #### LAB [address] [address] Les Malone M.D. [id number] CALCIUM IONIZED 4.2 mg/dL Low 4.5-5.[address] [facility] Comment on above: Performed By: #### 4 5190 #### LAB [address] [address] Les Malone M.D. [id number] CALCIUM IONIZED 4.3 mg/dL Low 4.5-5.[address] [facility] Comment on above: Performed By: #### 4 5190 #### LAB [address] [address] Les Malone M.D. [id number] CBCon 01-03-2024 AUTO NRBC 0.3 % Normal [facility] Comment on above: Performed By: #### 4 [id number] #### LAB [address] [address] eLs Malone M.D. [id number] AUTO NRBC ABS COUNT 0.03 K/mcL High 0.00-0.00 [facility] Comment on above: Performed By: #### 4 [id number] #### LAB [address] [address] Les Malone M.D. [id number] Erythrocyte distribution width (RBC) [Ratio] 15.1 % High 11.6-14.[address] [facility] Comment on above: Performed By: #### 4 [id number] #### LAB [address] [address] Les Malone M.D. [id number] Hematocrit (Bld) [Volume fraction] 24.4 % Low 41.0-53.[address] [facility] Comment on above: Performed By: #### 4 [id number] #### LAB [address] [address] Les Malone M.D. [id number] Hemoglobin (Bld) [Mass/Vol] 7.8 g/dL Low 13.5-17.[address] [facility] Comment on above: Performed By: #### 4 [id number] #### LAB [address] [address] Les Malone M.D. [id number] MCH (RBC) [Entitic mass] 29.7 pg Normal 26.0-34.[address] [facility] Comment on above: Performed By: #### 4 [id number] #### LAB [address] [address] Les Malone M.D. [id number] MCV (RBC) [Entitic vol] 92.8 fL Normal 80.0-100.[address] [facility] Comment on above: Performed By: #### 4 [id number] #### LAB [address] [address] Les Malone M.D. [id number] MEAN CORPUSCULAR HEMOGLOBIN CONC 32.0 g/dL Normal 31.0-37.[address] [facility] Comment on above: Performed By: #### 4 [id number] #### LAB [address] [address] Les Malone M.D. [id number] Platelet mean volume (Bld) [Entitic vol] 10.9 fL Normal 9.4-12.[address] [facility] Comment on above: Performed By: #### 4 [id number] #### LAB [address] [address] Les Malone M.D. [id number] Platelets (Bld) [#/Vol] 230 10*3/uL Normal 150-[address] [facility] Comment on above: Performed By: #### 4 [id number] #### LAB [address] [address] Les Malone M.D. [id number] RBC (Bld) [#/Vol] 2.63 10*6/uL Low 4.50-5.90 [facility] Comment on above: Performed By: #### 4 [id number] #### LAB [address] [address] Les Malone M.D. [id number] WBC (Bld) [#/Vol] 10.22 10*3/uL Normal 4.50-11.00 [facility] Comment on above: Performed By: #### 4 [id number] #### LAB [address] [address] Les Malone M.D. [id number] CHEM 7on 01-03-2024 Anion gap [Moles/Vol] 13 mmol/L Normal 10-20 [facility] Comment on above: Order Comment: [facility] has implemented the eGFR calculation approach that does not have a coefficient for race that conforms to the NKF-ASN Task Force Recommendations. Performed By: #### 4 6953 #### LAB [address] [place], [place] [address] Les Malone M.D. [id number] Chloride [Moles/Vol] 104 mmol/L Normal 98-108 [facility] Comment on above: Order Comment: [facility] has implemented the eGFR calculation approach that does not have a coefficient for race that conforms to the NKF-ASN Task Force Recommendations. Performed By: #### 4 6953 #### LAB [address] [place], [place] [address] Les Malone M.D. [id number] Creatinine [Mass/Vol] 1.05 mg/dL Normal 0.50-1.30 [facility] Comment on above: Order Comment: [facility] has implemented the eGFR calculation approach that does not have a coefficient for race that conforms to the NKF-ASN Task Force Recommendations. Performed By: #### 4 6953 #### LAB [address] [place], [place] [address] Les Malone M.D. [id number] EGFR 89 mL/min/1.73 m2 Normal >=60 [facility] Comment on above: Order Comment: [facility] has implemented the eGFR calculation approach that does not have a coefficient for race that conforms to the NKF-ASN Task Force Recommendations. Result Comment: Fanta mated GFR was calculated using the 2020 CKD-EPI creatinine equation. Performed By: #### 4 6953 #### LAB [address] [place], [place] [address] Les Malone M.D. [id number] Glucose [Mass/Vol] 126 mg/dL High 65-99 [facility] Comment on above: Order Comment: [facility] has implemented the eGFR calculation approach that does not have a coefficient for race that conforms to the NKF-ASN Task Force Recommendations. Performed By: #### 4 6953 #### LAB [address] [place] [address] Les Malone M.D. [id number] HCO3 (Bld) [Moles/Vol] 25 mmol/L Normal 21-[address] [facility] Comment on above: Order Comment: [facility] has implemented the eGFR calculation approach that does not have a coefficient for race that conforms to the NKF-ASN Task Force Recommendations. Performed By: #### 4 6953 #### LAB [address] [place] [address] Les Malone M.D. [id number] Potassium [Moles/Vol] 4.0 mmol/L Normal 3.5-5.1 [facility] Comment on above: Order Comment: [facility] has implemented the eGFR calculation approach that does not have a coefficient for race that conforms to the NKF-ASN Task Force Recommendations. Performed By: #### 4 6953 #### LAB [address] [place], [place] [address] Les Malone M.D. [id number] Sodium [Moles/Vol] 138 mmol/L Normal 135-145 [facility] Comment on above: Order Comment: [facility] has implemented the eGFR calculation approach that does not have a coefficient for race that conforms to the NKF-ASN Task Force Recommendations. Performed By: #### 4 6953 #### LAB [address] [place], [place] [address] Les Malone M.D. [id number] Urea nitrogen [Mass/Vol] 22 mg/dL Normal 8-[address] [facility] Comment on above: Order Comment: [facility] has implemented the eGFR calculation approach that does not have a coefficient for race that conforms to the NKF-ASN Task Force Recommendations. Performed By: #### 4 6953 #### LAB [address] [address] Les Malone M.D. [id number] Urea nitrogen/Creatinine [Mass ratio] 21.0 mg/mg High 10.0-20.[address] [facility] Comment on above: Order Comment: [facility] has implemented the eGFR calculation approach that does not have a coefficient for race that conforms to the NKF-ASN Task Force Recommendations. Performed By: #### 4 6953 #### LAB [address] [place] [address] Les Malone M.D. [id number] MAGNESIUM LEVELon 01-03-2024 Magnesium [Mass/Vol] 2.3 mg/dL Normal 1.6-2.4 [facility] Comment on above: Performed By: #### 4 6109 #### LAB [address] [place] [address] Les Malone M.D. [id number] PHOSPHORUSon 01-03-2024 Phosphate [Mass/Vol] 2.8 mg/dL Normal 2.7-4.5 [facility] Comment on above: Performed By: #### 4 6299 ####[facility] [address] [address] Les Malone M.D. [id number] Phosphate [Mass/Vol] 2.5 mg/dL Low 2.7-4.5 [facility] Comment on above: Performed By: #### 4 6299 ####[facility] [address] [address] Les Malone M.D. [id number] POC ARTERIAL BLOOD GAS PANEL [facility] 01-03-2024 [id number] 268.7 mm Hg Normal [facility] Comment on above: Performed By: #### 4 [id number] #### LAB [address] [place] [address] Les Malone M.D. [id number] BASE EXCESS, ARTERIAL 2.1 High -2.0-2.0 [facility] Comment on above: Performed By: #### 4 8716 ####[facility] [address] [address] Les Malone M.D. [id number] CALCIUM IONIZED 4.4 mg/dL Low 4.5-5.[address] [facility] Comment on above: Performed By: #### 4 8716 ####[facility] [address] [address] Les Malone M.D. [id number] CARBOXYHEMOGLOBIN < Normal <=1.5 [facility] Comment on above: Result Comment: Refe rence Ranges:Suburban Non-smokers: <1.5%Smokers: 1.5-5.0%Heavy Smokers: 5.0-9.0% Performed By: #### 4 8716 ####[facility] [address] [address] Les Malone M.D. [id number] Chloride [Moles/Vol] 104 mmol/L Normal 98-108 [facility] Comment on above: Performed By: #### 4 8716 ####[facility] [address] [place] [address] Les Malone M.D. [id number] FIO2 [address] [facility] Comment on above: Performed By: #### 4 8716 ####[facility] [address] [place] [address] Les Malone M.D. [id number] Glucose [Mass/Vol] 123 mg/dL High 65-99 [facility] Comment on above: Performed By: #### 4 8716 #### LAB [address] [address] Les Malone M.D. [id number] HCO3 (Bld) [Moles/Vol] 27.4 mmol/L High 22.0-26.[address] [facility] Comment on above: Performed By: #### 4 8716 #### LAB [address] [address] Les Malone M.D. [id number] Hematocrit (Bld) [Volume fraction] 23.8 % Low 41.0-53.[address] [facility] Comment on above: Performed By: #### 4 8716 ####[facility] [address] [address] Les Malone M.D. [id number] Hemoglobin (Bld) [Mass/Vol] 7.8 g/dL Low 13.5-17.[address] [facility] Comment on above: Performed By: #### 4 8716 ####[facility] [address] [address] Les Malone M.D. [id number] LACTIC ACID, WHOLE BLOOD 1.2 mmol/L Normal 0.6-2.[address] [facility] Comment on above: Performed By: #### 4 8716 #### LAB [address] [place] [address] Les Malone M.D. [id number] METHEMOGLOBIN 1.1 % Normal 0.0-2.[address] [facility] Comment on above: Performed By: #### 4 8716 ####[facility] [address] [place] [address] Les Malone M.D. [id number] O2HB 95.9 % Normal 94.0-98.[address] [facility] Comment on above: Performed By: #### 4 8716 #### LAB [address] [place] [address] Les Malone M.D. [id number] Oxygen saturation in Blood 97.5 % Normal 92.0-99.[address] [facility] Comment on above: Performed By: #### 4 8716 #### LAB [address] [place] [address] Les Malone M.D. [id number] PCO2 ARTERIAL 45.6 mm Hg High 35.0-45.[address] [facility] Comment on above: Performed By: #### 4 8716 #### LAB [address] [place] [address] Les Malone M.D. [id number] PEEP RAD [address] [facility] Comment on above: Performed By: #### 4 8716 ####[facility] [address] [place] [address] Les Malone M.D. [id number] PH ARTERIAL 7.39 Normal 7.35-7.[address] [facility] Comment on above: Performed By: #### 4 8716 ####[facility] [address] [place] [address] Les Malone M.D. [id number] PO2 ARTERIAL 89 mm Hg Normal 80-[address] [facility] Comment on above: Performed By: #### 4 8716 #### LAB [address] [place] [address] Les Malone M.D. [id number] Potassium [Moles/Vol] 3.7 mmol/L Normal 3.5-5.1 [facility] Comment on above: Performed By: #### 4 8716 #### LAB [address] [place] [address] Les Malone M.D. [id number] RESP RATE RAD 22 [facility] Comment on above: Performed By: #### 4 8716 #### LAB [address] [place] [address] Les Malone M.D. [id number] Sodium [Moles/Vol] 138 mmol/L Normal 135-145 [facility] Comment on above: Performed By: #### 4 8716 ####[facility] [address] [place] [address] Les Malone M.D. [id number] SPECIMEN SOURCE RADIANCE Not specified [facility] Comment on above: Performed By: #### 4 8716 ####[facility] [address] [place] [address] Les Malone M.D. [id number] TIDAL VOLUME RAD 450 [facility] Comment on above: Performed By: #### 4 [id number] #### LAB [address] [place] [address] Les Malone M.D. [id number] POC GLUCOSE [facility] 024 Glucose [Mass/Vol] 139 mg/dL High 65-99 [facility] Comment on above: Performed By: #### 4 6932 ####[facility] [address] [place] [address] Les Malone M.D. [id number] Glucose [Mass/Vol] 137 mg/dL High 6599 [facility] Comment on above: Performed By: #### 4 6932 ####[facility] [address] [place] [address] Les Malone M.D. [id number] Glucose [Mass/Vol] 136 mg/dL High 65-99 [facility] Comment on above: Performed By: #### 4 6932 ####[facility] [address] [place] [address] Les Malone M.D. [id number] POTASSIUM LEVELon 01-03-2024 Potassium [Moles/Vol] 4.1 mmol/L Normal 3.5-5.1 [facility] Comment on above: Performed By: #### 4 6351 ####[facility] [address] [place] [address] Les Malone M.D. [id number] XR CHEST PA/APon 01-03-2024 XR CHEST PA/AP Normal [facility] Comment on above: Order Comment: Injur y/Trauma or Illness?:Illness/OtherHow long have you had these symptoms (acute/chronic)?:AcuteReason for exam?:DesaturationHistory of cancer?:uSurgeries, chemotherapy, or radiation?:uType of Exam?:InitialAdditional signs and symptoms?:. CALCIUM, IONIZEDon CALCIUM IONIZED 4.2 mg/dL Low 4.5-5.[address] [facility] Comment on above: Performed By: #### 4 5190 ####[facility] [address] [place] [address] Les Malone M.D. [id number] CALCIUM IONIZED 4.2 mg/dL Low 4.5-5.[address] [facility] Comment on above: Performed By: #### 4 5190 ####[facility] [address] [place] [address] Les Malone M.D. [id number] CBCon 01-02-2024 AUTO NRBC 0.0 % Normal [facility] Comment on above: Performed By: #### 4 [id number] ####[facility] [address] [place] [address] Les Malone M.D. [id number] AUTO NRBC ABS COUNT 0.00 K/mcL Normal 0.00-0.00 [facility] Comment on above: Performed By: #### 4 [id number] #### LAB [address] [place] [address] Les Malone M.D. [id number] Erythrocyte distribution width (RBC) [Ratio] 14.9 % High 11.6-14.[address] [facility] Comment on above: Performed By: #### 4 [id number] #### LAB [address] [address] Les Malone M.D. [id number] Hematocrit (Bld) [Volume fraction] 23.3 % Low 41.0-53.[address] [facility] Comment on above: Performed By: #### 4 [id number] #### LAB [address] [address] Les Malone M.D. [id number] Hemoglobin (Bld) [Mass/Vol] 7.6 g/dL Low 13.5-17.[address] [facility] Comment on above: Performed By: #### 4 [id number] #### LAB [address] [address] Les Malone M.D. [id number] MCH (RBC) [Entitic mass] 28.8 pg Normal 26.0-34.[address] [facility] Comment on above: Performed By: #### 4 [id number] #### LAB [address] [address] Les Malone M.D. [id number] MCV (RBC) [Entitic vol] 88.3 fL Normal 80.0-100.[address] [facility] Comment on above: Performed By: #### 4 [id number] #### LAB [address] [address] Les Malone M.D. [id number] MEAN CORPUSCULAR HEMOGLOBIN CONC 32.6 g/dL Normal 31.0-37.[address] [facility] Comment on above: Performed By: #### 4 [id number] #### LAB [address] [address] Les Malone M.D. [id number] Platelet mean volume (Bld) [Entitic vol] 10.7 fL Normal 9.4-12.[address] [facility] Comment on above: Performed By: #### 4 [id number] #### LAB [address] [address] Les Malone M.D. [id number] Platelets (Bld) [#/Vol] 220 10*3/uL Normal 150-[address] [facility] Comment on above: Performed By: #### 4 [id number] #### LAB [address] [address] Les Malone M.D. [id number] RBC (Bld) [#/Vol] 2.64 10*6/uL Low 4.50-5.90 [facility] Comment on above: Performed By: #### 4 [id number] #### LAB [address] [address] Les Malone M.D. [id number] WBC (Bld) [#/Vol] 12.20 10*3/uL High 4.50-11.00 [facility] Comment on above: Performed By: #### 4 [id number] ####[facility] [address] [address] Les Malone M.D. [id number] CHEM 701-02-2024 Anion gap [Moles/Vol] 13 mmol/L Normal 10-20 [facility] Comment on above: Order Comment: [facility] has implemented the eGFR calculation approach that does not have a coefficient for race that conforms to the NKF-ASN Task Force Recommendations. Performed By: #### 4 6953 #### LAB [address] [address] Les Malone M.D. [id number] Chloride [Moles/Vol] 106 mmol/L Normal 98-108 [facility] Comment on above: Order Comment: [facility] has implemented the eGFR calculation approach that does not have a coefficient for race that conforms to the NKF-ASN Task Force Recommendations. Performed By: #### 4 6953 #### LAB [address] [address] Les Malone M.D. [id number] Creatinine [Mass/Vol] 1.08 mg/dL Normal 0.50-1.30 [facility] Comment on above: Order Comment: [facility] has implemented the eGFR calculation approach that does not have a coefficient for race that conforms to the NKF-ASN Task Force Recommendations. Performed By: #### 4 6953 #### LAB [address] [address] Les Malone M.D. [id number] EGFR 86 mL/min/1.73 m2 Normal >=60 [facility] Comment on above: Order Comment: [facility] has implemented the eGFR calculation approach that does not have a coefficient for race that conforms to the NKF-ASN Task Force Recommendations. Result Comment: Fanta mated GFR was calculated using the 2020 CKD-EPI creatinine equation. Performed By: #### 4 6953 #### LAB [address] [address] Les Malone M.D. [id number] Glucose [Mass/Vol] 143 mg/dL High 65-99 [facility] Comment on above: Order Comment: [facility] has implemented the eGFR calculation approach that does not have a coefficient for race that conforms to the NKF-ASN Task Force Recommendations. Performed By: #### 4 6953 #### LAB [address] [address] Les Malone M.D. [id number] HCO3 (Bld) [Moles/Vol] 24 mmol/L Normal 21-[address] [facility] Comment on above: Order Comment: [facility] has implemented the eGFR calculation approach that does not have a coefficient for race that conforms to the NKF-ASN Task Force Recommendations. Performed By: #### 4 6953 #### LAB [address] [address] Les Malone M.D. [id number] Potassium [Moles/Vol] 3.6 mmol/L Normal 3.5-5.1 [facility] Comment on above: Order Comment: [facility] has implemented the eGFR calculation approach that does not have a coefficient for race that conforms to the NKF-ASN Task Force Recommendations. Performed By: #### 4 6953 #### LAB [address] [place], [place] [address] Les Malone M.D. [id number] Sodium [Moles/Vol] 139 mmol/L Normal 135-145 [facility] Comment on above: Order Comment: [facility] has implemented the eGFR calculation approach that does not have a coefficient for race that conforms to the NKF-ASN Task Force Recommendations. Performed By: #### 4 6953 #### LAB [address] [place], [place] [address] Les Malone M.D. [id number] Urea nitrogen [Mass/Vol] 17 mg/dL Normal 8-[address] [facility] Comment on above: Order Comment: [facility] has implemented the eGFR calculation approach that does not have a coefficient for race that conforms to the NKF-ASN Task Force Recommendations. Performed By: #### 4 6953 #### LAB [address] [place], [place] [address] Les Malone M.D. [id number] Urea nitrogen/Creatinine [Mass ratio] 15.7 mg/mg Normal 10.0-20.[address] [facility] Comment on above: Order Comment: [facility] has implemented the eGFR calculation approach that does not have a coefficient for race that conforms to the NKF-ASN Task Force Recommendations. Performed By: #### 4 6953 #### LAB [address] [address] Les Malone M.D. [id number] CT ANGIOGRAM CHEST ABDOMEN P ELVISon 01-02-2024 CT ANGIOGRAM CHEST ABDOMEN PELVIS Normal [facility] Comment on above: Order Comment: Injur y/Trauma or Illness?:Illness/OtherHow long have you had these symptoms (acute/chronic)?:AcuteReason for exam?:Questionable periaortic hematoma on admission CTType of Exam?:Subsequent/Follow-upAdditional signs and symptoms?:. CT HEAD OR BRAIN WITHOUT CON TRASTon 01-02-2024 CT HEAD OR BRAIN WITHOUT CONTRAST Normal [facility] Comment on above: Order Comment: Injur y/Trauma or Illness?:Illness/OtherHow long have you had these symptoms (acute/chronic)?:AcuteReason for exam?:Follow up IPH, s/p craniectomyType of Exam?:Subsequent/Follow-upAdditional signs and symptoms?:. MAGNESIUM LEVELon 01-02-2024 Magnesium [Mass/Vol] 1.9 mg/dL Normal 1.6-2.4 [facility] Comment on above: Performed By: #### 4 6109 #### LAB [address] [address] Les Malone M.D. [id number] Magnesium [Mass/Vol] 1.8 mg/dL Normal 1.6-2.4 [facility] Comment on above: Performed By: #### 4 6109 #### LAB [address] [address] Les Malone M.D. [id number] PHOSPHORUSon 01-02-2024 Phosphate [Mass/Vol] 2.6 mg/dL Low 2.7-4.5 [facility] Comment on above: Performed By: #### 4 6299 #### LAB [address] [address] Les Malone M.D. [id number] Phosphate [Mass/Vol] 2.2 mg/dL Low 2.7-4.5 [facility] Comment on above: Performed By: #### 4 6299 #### LAB [address] [address] Les Malone M.D. [id number] POC ARTERIAL BLOOD GAS PANEL -[facility] 01-02-2024 [id number] 275.8 mm Hg Normal [facility] Comment on above: Performed By: #### 4 [id number] #### LAB [address] [address] Les Malone M.D. [id number] BASE EXCESS, ARTERIAL 2.0 Normal -2.0-2.0 [facility] Comment on above: Performed By: #### 4 8716 #### LAB [address] [address] Les Malone M.D. [id number] FIO2 [address] [facility] Comment on above: Performed By: #### 4 [id number] #### LAB [address] [address] Les Malone M.D. [id number] HCO3 (Bld) [Moles/Vol] 27.3 mmol/L High 22.0-26.[address] [facility] Comment on above: Performed By: #### 4 8716 ####[facility] LAB [address] [address] Les Malone M.D. [id number] Hematocrit (Bld) [Volume fraction] 24.9 % Low 41.0-53.[address] [facility] Comment on above: Performed By: #### 4 [id number] ####[facility] [address] [address] Les Malone M.D. [id number] Hemoglobin (Bld) [Mass/Vol] 8.1 g/dL Low 13.5-17.[address] [facility] Comment on above: Performed By: #### 4 8716 ####[facility] [address] [address] Les Malone M.D. [id number] Oxygen saturation in Blood 97.2 % Normal 92.0-99.[address] [facility] Comment on above: Performed By: #### 4 [id number] #### LAB [address] [address] Les Malone M.D. [id number] PCO2 ARTERIAL 45.2 mm Hg High 35.0-45.[address] [facility] Comment on above: Performed By: #### 4 8716 ####[facility] LAB [address] [address] Les Malone M.D. [id number] PEEP RAD 8 [facility] Comment on above: Performed By: #### 4 8716 ####[facility] LAB [address] [address] Les Malone M.D. [id number] PH ARTERIAL 7.39 Normal 7.35-7.[address] [facility] Comment on above: Performed By: #### 4 [id number] #### LAB [address] [address] Les Malone M.D. [id number] PO2 ARTERIAL 83 mm Hg Normal 80-[address] [facility] Comment on above: Performed By: #### 4 [id number] #### LAB [address] [address] Les Malone M.D. [id number] RESP RATE RAD 22 [facility] Comment on above: Performed By: #### 4 [id number] #### LAB [address] [address] Les Malone M.D. [id number] SPECIMEN SOURCE RADIANCE Brachial, right [facility] Comment on above: Performed By: #### 4 8716 #### LAB [address] [address] Les Malone M.D. [id number] TIDAL VOLUME RAD 450 Normal [facility] Comment on above: Performed By: #### 4 [id number] #### LAB [address] [address] Les Malone M.D. [id number] 203.8 mm Hg [facility] Comment on above: Performed By: #### 4 [id number] #### LAB [address] [address] Les Malone M.D. [id number] BASE EXCESS, ARTERIAL 1.6 Normal -2.0-2.0 [facility] Comment on above: Performed By: #### 4 [id number] #### LAB [address] [address] Les Malone M.D. [id number] CALCIUM IONIZED 4.4 mg/dL Low 4.5-5.[address] [facility] Comment on above: Performed By: #### 4 8716 #### LAB [address] [address] Les Malone M.D. [id number] CARBOXYHEMOGLOBIN < Normal <=1.5 [facility] Comment on above: Result Comment: Refe rence Ranges:Suburban Non-smokers: <1.5%Smokers: 1.5-5.0%Heavy Smokers: 5.0-9.0% Performed By: #### 4 8716 #### LAB [address] [address] Les Malone M.D. [id number] Chloride [Moles/Vol] 106 mmol/L Normal 98-108 [facility] Comment on above: Performed By: #### 4 8716 ####[facility] LAB [address] [address] Les Malone M.D. [id number] FIO2 [address] [facility] Comment on above: Performed By: #### 4 8716 ####[facility] LAB [address] [address] Les Malone M.D. [id number] Glucose [Mass/Vol] 144 mg/dL High 65-99 [facility] Comment on above: Performed By: #### 4 8716 ####[facility] LAB [address] [address] Les Malone M.D. [id number] HCO3 (Bld) [Moles/Vol] 26.8 mmol/L High 22.0-26.[address] [facility] Comment on above: Performed By: #### 4 [id number] #### LAB [address] [address] Les Malone M.D. [id number] Hematocrit (Bld) [Volume fraction] 24.8 % Low 41.0-53.[address] [facility] Comment on above: Performed By: #### 4 8716 ####[facility] LAB [address] [address] Les Malone M.D. [id number] Hemoglobin (Bld) [Mass/Vol] 8.1 g/dL Low 13.5-17.[address] [facility] Comment on above: Performed By: #### 4 8716 ####[facility] LAB [address] [address] Les Malone M.D. [id number] LACTIC ACID, WHOLE BLOOD 1.9 mmol/L Normal 0.6-2.[address] [facility] Comment on above: Performed By: #### 4 [id number] #### LAB [address] [address] Les Malone M.D. [id number] METHEMOGLOBIN < Normal 0.0-2.[address] [facility] Comment on above: Performed By: #### 4 8716 #### LAB [address] [address] Les Malone M.D. [id number] O2HB 96.5 % Normal 94.0-98.[address] [facility] Comment on above: Performed By: #### 4 8716 #### LAB [address] [address] Les Malone M.D. [id number] Oxygen saturation in Blood 98.0 % Normal 92.0-99.[address] [facility] Comment on above: Performed By: #### 4 8716 #### LAB [address] [address] Les Malone M.D. [id number] PCO2 ARTERIAL 44.0 mm Hg Normal 35.0-45.[address] [facility] Comment on above: Performed By: #### 4 8716 #### LAB [address] [address] Les Malone M.D. [id number] PEEP RAD [address] [facility] Comment on above: Performed By: #### 4 8716 #### LAB [address] [address] Les Malone M.D. [id number] PH ARTERIAL 7.39 Normal 7.35-7.[address] [facility] Comment on above: Performed By: #### 4 8716 #### LAB [address] [address] Les Malone M.D. [id number] PO2 ARTERIAL 89 mm Hg Normal 80-[address] [facility] Comment on above: Performed By: #### 4 8716 #### LAB [address] [address] Les Malone M.D. [id number] Potassium [Moles/Vol] 3.4 mmol/L Low 3.5-5.1 [facility] Comment on above: Performed By: #### 4 [id number] #### LAB [address] [address] Les Malone M.D. [id number] RESP RATE RAD 22 [facility] Comment on above: Performed By: #### 4 [id number] #### LAB [address] [address] Les Malone M.D. [id number] Sodium [Moles/Vol] 139 mmol/L Normal 135-145 [facility] Comment on above: Performed By: #### 4 8716 #### LAB [address] [address] Les Malone M.D. [id number] SPECIMEN SOURCE RADIANCE Not specified [facility] Comment on above: Performed By: #### 4 8716 #### LAB [address] [address] Les Malone M.D. [id number] TIDAL VOLUME RAD 450 [facility] Comment on above: Performed By: #### 4 [id number] #### LAB [address] [address] Les Malone M.D. [id number] POC GLUCOSE - [facility] 024 Glucose [Mass/Vol] 135 mg/dL High [address] [place] [address] Comment on above: Performed By: #### 4 6932 #### LAB [address] [address] Les Malone M.D. [id number] Glucose [Mass/Vol] 122 mg/dL [address] Comment on above: Performed By: #### 4 6932 #### LAB [address] [address] Les Malone M.D. [id number] Glucose [Mass/Vol] 130 mg/dL High 65-99 [facility] Comment on above: Performed By: #### 4 6932 #### LAB [address] [address] Les Malone M.D. [id number] Glucose [Mass/Vol] 137 mg/dL High 65-99 [facility] Comment on above: Performed By: #### 4 6932 #### LAB [address] [address] Les Malone M.D. [id number] POTASSIUM LEVELon 01-02-2024 Potassium [Moles/Vol] 3.9 mmol/L Normal 3.5-5.1 [facility] Comment on above: Performed By: #### 4 6351 #### LAB [address] [address] Les Malone M.D. [id number] TRIGLYCERIDESon 01-02-2024 Triglyceride [Mass/Vol] 198 mg/dL High 30-[address] [facility] Comment on above: Result Comment: [place] Cholesterol Education Program Guidelines: TriglycerideNormal: <150 mg/dLBorderline High: 150-199 mg/dLHigh: 200-499 mg/dLVery High: greater than or equal to 500 mg/dL Performed By: #### 4 6606 #### LAB [address] [address] Les Malone M.D. [id number] XR CHEST PA/APon 01-02-2024 XR CHEST PA/AP Normal [facility] Comment on above: Order Comment: Injur y/Trauma or Illness?:Illness/OtherHow long have you had these symptoms (acute/chronic)?:AcuteReason for exam?:vent managementHistory of cancer?:uSurgeries, chemotherapy, or radiation?:uType of Exam?:InitialAdditional signs and symptoms?:. BASIC METABOLIC PANELon 12-04 Anion gap [Moles/Vol] 12 mmol/L Normal 10-20 [facility] Comment on above: Order Comment: [facility] has implemented the eGFR calculation approach that does not have a coefficient for race that conforms to the NKF-ASN Task Force Recommendations. Performed By: #### 4 6124 #### LAB [address] [address] Les Malone M.D. [id number] Calcium [Mass/Vol] 7.1 mg/dL Low 8.4-10.2 [facility] Comment on above: Order Comment: [facility] has implemented the eGFR calculation approach that does not have a coefficient for race that conforms to the NKF-ASN Task Force Recommendations. Performed By: #### 4 6124 #### LAB [address] [address] Les Malone M.D. [id number] Chloride [Moles/Vol] 110 mmol/L High 98-108 [facility] Comment on above: Order Comment: [facility] has implemented the eGFR calculation approach that does not have a coefficient for race that conforms to the NKF-ASN Task Force Recommendations. Performed By: #### 4 6124 #### LAB [address] [address] Les Malone M.D. [id number] Creatinine [Mass/Vol] 1.21 mg/dL Normal 0.50-1.30 [facility] Comment on above: Order Comment: [facility] has implemented the eGFR calculation approach that does not have a coefficient for race that conforms to the NKF-ASN Task Force Recommendations. Performed By: #### 4 6124 #### LAB [address] [address] Les Malone M.D. [id number] EGFR 75 mL/min/1.73 m2 Normal >=60 [facility] Comment on above: Order Comment: [facility] has implemented the eGFR calculation approach that does not have a coefficient for race that conforms to the NKF-ASN Task Force Recommendations. Result Comment: Fanta mated GFR was calculated using the 2020 CKD-EPI creatinine equation. Performed By: #### 4 6124 #### LAB [address] [address] Les Malone M.D. [id number] Glucose [Mass/Vol] 134 mg/dL High 65-99 [facility] Comment on above: Order Comment: [facility] has implemented the eGFR calculation approach that does not have a coefficient for race that conforms to the NKF-ASN Task Force Recommendations. Performed By: #### 4 6124 ####[facility] LAB [address] [address] Les Malone M.D. [id number] HCO3 (Bld) [Moles/Vol] 24 mmol/L Normal 21-[address] [facility] Comment on above: Order Comment: [facility] has implemented the eGFR calculation approach that does not have a coefficient for race that conforms to the NKF-ASN Task Force Recommendations. Performed By: #### 4 6124 #### LAB [address] [address] Les Malone M.D. [id number] Potassium [Moles/Vol] 4.1 mmol/L Normal 3.5-5.1 [facility] Comment on above: Order Comment: [facility] has implemented the eGFR calculation approach that does not have a coefficient for race that conforms to the NKF-ASN Task Force Recommendations. Performed By: #### 4 6158 ####[facility] LAB [address] [address] Les Malone M.D. [id number] Sodium [Moles/Vol] 142 mmol/L Normal 135-145 [facility] Comment on above: Order Comment: [facility] has implemented the eGFR calculation approach that does not have a coefficient for race that conforms to the NKF-ASN Task Force Recommendations. Performed By: #### 4 6123 ####[facility] LAB [address] [address] Les Malone M.D. [id number] Urea nitrogen [Mass/Vol] 15 mg/dL Normal 8-[address] [facility] Comment on above: Order Comment: [facility] has implemented the eGFR calculation approach that does not have a coefficient for race that conforms to the NKF-ASN Task Force Recommendations. Performed By: #### 4 6124 #### LAB [address] [address] Les Malone M.D. [id number] Urea nitrogen/Creatinine [Mass ratio] 12.4 mg/mg Normal 10.0-20.[address] [facility] Comment on above: Order Comment: [facility] has implemented the eGFR calculation approach that does not have a coefficient for race that conforms to the NKF-ASN Task Force Recommendations. Performed By: #### 4 6124 #### LAB [address] [address] Les Malone M.D. [id number] CALCIUM, IONIZEDon CALCIUM IONIZED 3.3 mg/dL Low 4.5-5.[address] [facility] Comment on above: Performed By: #### 4 5190 #### LAB [address] [address] Les Malone M.D. [id number] CALCIUM IONIZED 4.2 mg/dL Low 4.5-5.[address] [facility] Comment on above: Performed By: #### 4 5190 #### LAB [address] [address] Les Malone M.D. [id number] CALCIUM IONIZED 4.2 mg/dL Low 4.5-5.[address] [facility] Comment on above: Performed By: #### 4 5190 #### LAB [address] [address] Les Malone M.D. [id number] CBCon 01-01-2024 AUTO NRBC 0.0 % Normal [facility] Comment on above: Performed By: #### 4 [id number] #### LAB [address] [address] Les Malone M.D. [id number] AUTO NRBC ABS COUNT 0.00 K/mcL Normal 0.00-0.00 [facility] Comment on above: Performed By: #### 4 [id number] #### LAB [address] [address] Les Malone M.D. [id number] Erythrocyte distribution width (RBC) [Ratio] 14.6 % Normal 11.6-14.[address] [facility] Comment on above: Performed By: #### 4 [id number] #### LAB [address] [address] Les Malone M.D. [id number] Hematocrit (Bld) [Volume fraction] 25.2 % Low 41.0-53.[address] [facility] Comment on above: Performed By: #### 4 5218 #### LAB [address] [address] Les Malone M.D. [id number] Hemoglobin (Bld) [Mass/Vol] 8.2 g/dL Low 13.5-17.[address] [facility] Comment on above: Performed By: #### 4 5218 #### LAB [address] [address] Les Malone M.D. [id number] MCH (RBC) [Entitic mass] 29.3 pg Normal 26.0-34.[address] [facility] Comment on above: Performed By: #### 4 5218 #### LAB [address] [address] Les Malone M.D. [id number] MCV (RBC) [Entitic vol] 90.0 fL Normal 80.0-100.[address] [facility] Comment on above: Performed By: #### 4 5218 #### LAB [address] [address] Les Malone M.D. [id number] MEAN CORPUSCULAR HEMOGLOBIN CONC 32.5 g/dL Normal 31.0-37.[address] [facility] Comment on above: Performed By: #### 4 [id number] #### LAB [address] [address] Les Malone M.D. [id number] Platelet mean volume (Bld) [Entitic vol] 10.8 fL Normal 9.4-12.[address] [facility] Comment on above: Performed By: #### 4 [id number] #### LAB [address] [place], [place] [address] Les Malone M.D. [id number] Platelets (Bld) [#/Vol] 195 10*3/uL Normal 150-[address] [facility] Comment on above: Performed By: #### 4 [id number] #### LAB [address] [address] Les Malone M.D. [id number] RBC (Bld) [#/Vol] 2.80 10*6/uL Low 4.50-5.90 [facility] Comment on above: Performed By: #### 4 [id number] #### LAB [address] [address] Les Malone M.D. [id number] WBC (Bld) [#/Vol] 14.24 10*3/uL High 4.50-11.00 [facility] Comment on above: Performed By: #### 4 [id number] #### LAB [address] [address] Les Malone M.D. [id number] CT HEAD OR BRAIN WITHOUT CON TRASTon 01-01-2024 CT HEAD OR BRAIN WITHOUT CONTRAST Normal [facility] Comment on above: Order Comment: Injur y/Trauma or Illness?:Illness/OtherHow long have you had these symptoms (acute/chronic)?:AcuteReason for exam?:severe TBI, post craniectomy, EVDType of Exam?:Subsequent/Follow-upAdditional signs and symptoms?:n MAGNESIUM LEVELon 01-01-2024 Magnesium [Mass/Vol] 2.1 mg/dL Normal 1.6-2.4 [facility] Comment on above: Performed By: #### 4 6109 #### LAB [address] [address] Les Malone M.D. [id number] PHOSPHORUSon 01-01-2024 Phosphate [Mass/Vol] 1.6 mg/dL Low 2.7-4.5 [facility] Comment on above: Performed By: #### 4 6299 #### LAB [address] [address] Les Malone M.D. [id number] Phosphate [Mass/Vol] 1.9 mg/dL Low 2.7-4.5 [facility] Comment on above: Performed By: #### 4 6299 #### LAB [address] [address] Les Malone M.D. [id number] POC ARTERIAL BLOOD GAS PANEL -[facility] 01-01-2024 [id number] 203.5 mm Hg Normal [facility] Comment on above: Performed By: #### 4 8716 ####[facility] [address] [address] Les Malone M.D. [id number] BASE EXCESS, ARTERIAL -1.5 Normal -2.0-2.0 [facility] Comment on above: Performed By: #### 4 8716 #### LAB [address] [address] Les Malone M.D. [id number] FIO2 [address] [facility] Comment on above: Performed By: #### 4 [id number] #### LAB [address] [address] Les Malone M.D. [id number] HCO3 (Bld) [Moles/Vol] 24.1 mmol/L Normal 22.0-26.[address] [facility] Comment on above: Performed By: #### 4 [id number] #### LAB [address] [address] Les Malone M.D. [id number] Hematocrit (Bld) [Volume fraction] 27.7 % Low 41.0-53.[address] [facility] Comment on above: Performed By: #### 4 [id number] #### LAB [address] [address] Les Malone M.D. [id number] Hemoglobin (Bld) [Mass/Vol] 9.0 g/dL Low 13.5-17.[address] [facility] Comment on above: Performed By: #### 4 8716 #### LAB [address] [address] eLs Malone M.D. [id number] Oxygen saturation in Blood 99.4 % High 92.0-99.[address] [facility] Comment on above: Performed By: #### 4 8716 #### LAB [address] [address] Les Malone M.D. [id number] PCO2 ARTERIAL 43.7 mm Hg Normal 35.0-45.[address] [facility] Comment on above: Performed By: #### 4 8716 ####[facility] [address] [address] Les Malone M.D. [id number] PEEP RAD 8 [facility] Comment on above: Performed By: #### 4 8716 ####[facility] LAB [address] [address] Les Malone M.D. [id number] PH ARTERIAL 7.35 Normal 7.35-7.[address] [facility] Comment on above: Performed By: #### 4 8716 ####[facility] [address] [address] Les Malone M.D. [id number] PO2 ARTERIAL 159 mm Hg High 80-[address] [facility] Comment on above: Performed By: #### 4 [id number] #### LAB [address] [address] Les Malone M.D. [id number] RESP RATE RAD 22 [facility] Comment on above: Performed By: #### 4 8716 #### LAB [address] [address] Les Malone M.D. [id number] SPECIMEN SOURCE RADIANCE Brachial, right [facility] Comment on above: Performed By: #### 4 8716 ####[facility] [address] [address] Les Malone M.D. [id number] TIDAL VOLUME RAD 450 [facility] Comment on above: Performed By: #### 4 8716 ####[facility] [address] [address] Les Malone M.D. [id number] POC GLUCOSE - RALSon 024 Glucose [Mass/Vol] 145 mg/dL High [address] [place] [address] Comment on above: Performed By: #### 4 6932 ####[facility] [address] [address] Les Malone M.D. [id number] Glucose [Mass/Vol] 141 mg/dL [address] Comment on above: Performed By: #### 4 6932 ####[facility] [address] [address] Les Malone M.D. [id number] Glucose [Mass/Vol] 155 mg/dL [address] Comment on above: Performed By: #### 4 6932 #### LAB [address] [address] Les Malone M.D. [id number] Glucose [Mass/Vol] 145 mg/dL [address] Comment on above: Performed By: #### 4 6932 #### LAB [address] [address] Les Malone M.D. [id number] Glucose [Mass/Vol] 145 mg/dL [address] Comment on above: Performed By: #### 4 6932 #### LAB [address] [address] Les Malone M.D. [id number] POTASSIUM LEVELon 01-01-2024 Potassium [Moles/Vol] 3.8 mmol/L Normal 3.5-5.1 [facility] Comment on above: Performed By: #### 4 6351 ####[facility] LAB [address] [address] Les Malone M.D. [id number] XR CHEST PA/APon 01-01-2024 XR CHEST PA/AP [facility] Comment on above: Order Comment: Injur y/Trauma or Illness?:Illness/OtherHow long have you had these symptoms (acute/chronic)?:AcuteReason for exam?:vent managementHistory of cancer?:uSurgeries, chemotherapy, or radiation?:uType of Exam?:InitialAdditional signs and symptoms?:. BASIC METABOLIC PANELon 12-04 Anion gap [Moles/Vol] 14 mmol/L Normal 10-20 [facility] Comment on above: Order Comment: [facility] has implemented the eGFR calculation approach that does not have a coefficient for race that conforms to the NKF-ASN Task Force Recommendations. Performed By: #### 4 6124 #### LAB [address] [address] Les Malone M.D. [id number] Calcium [Mass/Vol] 7.4 mg/dL Low 8.4-10.2 [facility] Comment on above: Order Comment: [facility] has implemented the eGFR calculation approach that does not have a coefficient for race that conforms to the NKF-ASN Task Force Recommendations. Performed By: #### 4 6124 #### LAB [address] [address] Les Malone M.D. [id number] Chloride [Moles/Vol] 109 mmol/L High 98-108 [facility] Comment on above: Order Comment: [facility] has implemented the eGFR calculation approach that does not have a coefficient for race that conforms to the NKF-ASN Task Force Recommendations. Performed By: #### 4 6124 #### LAB [address] [place], [place] [address] Les Malone M.D. [id number] Creatinine [Mass/Vol] 1.40 mg/dL High 0.50-1.30 [facility] Comment on above: Order Comment: [facility] has implemented the eGFR calculation approach that does not have a coefficient for race that conforms to the NKF-ASN Task Force Recommendations. Performed By: #### 4 6124 #### LAB [address] [address] Les Malone M.D. [id number] EGFR 63 mL/min/1.73 m2 Normal >=60 [facility] Comment on above: Order Comment: [facility] has implemented the eGFR calculation approach that does not have a coefficient for race that conforms to the NKF-ASN Task Force Recommendations. Result Comment: Fanta mated GFR was calculated using the 2020 CKD-EPI creatinine equation. Performed By: #### 4 6189 #### LAB [address] [address] Les Malone M.D. [id number] Glucose [Mass/Vol] 159 mg/dL High 65-99 [facility] Comment on above: Order Comment: [facility] has implemented the eGFR calculation approach that does not have a coefficient for race that conforms to the NKF-ASN Task Force Recommendations. Performed By: #### 4 6190 #### LAB [address] [address] Les Malone M.D. [id number] HCO3 (Bld) [Moles/Vol] 21 mmol/L Normal 21-[address] [facility] Comment on above: Order Comment: [facility] has implemented the eGFR calculation approach that does not have a coefficient for race that conforms to the NKF-ASN Task Force Recommendations. Performed By: #### 4 6129 #### LAB [address] [address] Les Malone M.D. [id number] Potassium [Moles/Vol] 4.7 mmol/L Normal 3.5-5.1 [facility] Comment on above: Order Comment: [facility] has implemented the eGFR calculation approach that does not have a coefficient for race that conforms to the NKF-ASN Task Force Recommendations. Performed By: #### 4 6156 ####[facility] LAB [address] [address] Les Malone M.D. [id number] Sodium [Moles/Vol] 139 mmol/L Normal 135-145 [facility] Comment on above: Order Comment: [facility] has implemented the eGFR calculation approach that does not have a coefficient for race that conforms to the NKF-ASN Task Force Recommendations. Performed By: #### 4 4624 ####[facility] LAB [address] [address] Les Malone M.D. [id number] Urea nitrogen [Mass/Vol] 12 mg/dL Normal 8-[address] [facility] Comment on above: Order Comment: [facility] has implemented the eGFR calculation approach that does not have a coefficient for race that conforms to the NKF-ASN Task Force Recommendations. Performed By: #### 4 6124 #### LAB [address] [address] Les Malone M.D. [id number] Urea nitrogen/Creatinine [Mass ratio] 8.6 mg/mg Low 10.0-20.[address] [facility] Comment on above: Order Comment: [facility] has implemented the eGFR calculation approach that does not have a coefficient for race that conforms to the NKF-ASN Task Force Recommendations. Performed By: #### 4 6124 #### LAB [address] [place] [address] Les Malone M.D. [id number] CBCon 12-31-2023 AUTO NRBC 0.0 % Normal [facility] Comment on above: Performed By: #### 4 [id number] #### LAB [address] [address] Les Malone M.D. [id number] AUTO NRBC ABS COUNT 0.00 K/mcL Normal 0.00-0.00 [facility] Comment on above: Performed By: #### 4 [id number] #### LAB [address] [address] Les Malone M.D. [id number] Erythrocyte distribution width (RBC) [Ratio] 14.6 % Normal 11.6-14.[address] [facility] Comment on above: Performed By: #### 4 [id number] #### LAB [address] [address] Les Malone M.D. [id number] Hematocrit (Bld) [Volume fraction] 30.9 % Low 41.0-53.[address] [facility] Comment on above: Performed By: #### 4 5218 #### LAB [address] [address] Les Malone M.D. [id number] Hemoglobin (Bld) [Mass/Vol] 10.3 g/dL Low 13.5-17.[address] [facility] Comment on above: Performed By: #### 4 [id number] #### LAB [address] [address] Les Malone M.D. [id number] MCH (RBC) [Entitic mass] 29.2 pg Normal 26.0-34.[address] [facility] Comment on above: Performed By: #### 4 [id number] #### LAB [address] [address] Lse Malone M.D. [id number] MCV (RBC) [Entitic vol] 87.5 fL Normal 80.0-100.[address] [facility] Comment on above: Performed By: #### 4 [id number] #### LAB [address] [address] Les Malone M.D. [id number] MEAN CORPUSCULAR HEMOGLOBIN CONC 33.3 g/dL Normal 31.0-37.[address] [facility] Comment on above: Performed By: #### 4 [id number] #### LAB [address] [address] Les Malone M.D. [id number] Platelet mean volume (Bld) [Entitic vol] 10.9 fL Normal 9.4-12.[address] [facility] Comment on above: Performed By: #### 4 [id number] #### LAB [address] [address] Les Malone M.D. [id number] Platelets (Bld) [#/Vol] 242 10*3/uL Normal 150-[address] [facility] Comment on above: Performed By: #### 4 [id number] #### LAB [address] [address] Les Malone M.D. [id number] RBC (Bld) [#/Vol] 3.53 10*6/uL Low 4.50-5.90 [facility] Comment on above: Performed By: #### 4 5218 ####[facility] LAB [address] [address] Les Malone M.D. [id number] WBC (Bld) [#/Vol] 24.34 10*3/uL High 4.50-11.00 [facility] Comment on above: Performed By: #### 4 [id number] #### LAB [address] [address] Les Malone M.D. [id number] MAGNESIUM LEVELon 12-31-2023 Magnesium [Mass/Vol] 2.2 mg/dL Normal 1.6-2.4 [facility] Comment on above: Performed By: #### 4 6109 ####[facility] LAB [address] [address] Les Malone M.D. [id number] Magnesium [Mass/Vol] 1.9 mg/dL Normal 1.6-2.4 [facility] Comment on above: Performed By: #### 4 6109 #### LAB [address] [address] Les Malone M.D. [id number] OSMOLALITYon 12-31-2023 Osmolality [Osmolality] 298 mosm/kg High 275-[address] [facility] Comment on above: Performed By: #### 4 6230 #### LAB [address] [address] Les Malone M.D. [id number] POC ARTERIAL BLOOD GAS PANEL -[facility] 12-31-2023 [id number] 160.7 mm Hg Normal [facility] Comment on above: Performed By: #### 4 8716 ####[facility] [address] [id number] Les Malone M.D. [id number] BASE EXCESS, ARTERIAL -2.2 Low -2.0-2.0 [facility] Comment on above: Performed By: #### 4 8716 ####[facility] [address] [address] Les Malone M.D. [id number] FIO2 [address] [facility] Comment on above: Performed By: #### 4 8716 #### LAB [address] [address] Les Malone M.D. [id number] HCO3 (Bld) [Moles/Vol] 22.8 mmol/L Normal 22.0-26.[address] [facility] Comment on above: Performed By: #### 4 8716 #### LAB [address] [address] Les Malone M.D. [id number] Hematocrit (Bld) [Volume fraction] 29.9 % Low 41.0-53.[address] [facility] Comment on above: Performed By: #### 4 8716 #### LAB [address] [address] Les Malone M.D. [id number] Hemoglobin (Bld) [Mass/Vol] 9.8 g/dL Low 13.5-17.[address] [facility] Comment on above: Performed By: #### 4 8716 #### LAB [address] [address] Les Malone M.D. [id number] Oxygen saturation in Blood 99.8 % High 92.0-99.[address] [facility] Comment on above: Performed By: #### 4 8716 #### LAB [address] [address] Les Malone M.D. [id number] PCO2 ARTERIAL 39.1 mm Hg Normal 35.0-45.[address] [facility] Comment on above: Performed By: #### 4 8716 ####[facility] [address] [address] Les Malone M.D. [id number] PEEP RAD 8 [facility] Comment on above: Performed By: #### 4 8716 ####[facility] LAB [address] [address] Les Malone M.D. [id number] PH ARTERIAL 7.37 Normal 7.35-7.[address] [facility] Comment on above: Performed By: #### 4 8716 #### LAB [address] [address] Les Malone M.D. [id number] PO2 ARTERIAL 205 mm Hg High 80-[address] [facility] Comment on above: Performed By: #### 4 8716 #### LAB [address] [address] Les Malone M.D. [id number] RESP RATE RAD [address] [facility] Comment on above: Performed By: #### 4 8716 #### LAB [address] [address] Les Malone M.D. [id number] SPECIMEN SOURCE RADIANCE Not specified [facility] Comment on above: Performed By: #### 4 8716 #### LAB [address] [address] Les Malone M.D. [id number] TIDAL VOLUME RAD 450 Normal [facility] Comment on above: Performed By: #### 4 8716 #### LAB [address] [address] Les Malone M.D. [id number] 248.3 mm Hg [facility] Comment on above: Performed By: #### 4 8716 #### LAB [address] [address] Les Malone M.D. [id number] BASE EXCESS, ARTERIAL -2.0 Normal -2.0-2.0 [facility] Comment on above: Performed By: #### 4 8716 #### LAB [address] [address] Les Malone M.D. [id number] FIO2 60 [facility] Comment on above: Performed By: #### 4 8716 #### LAB [address] [address] Les Malone M.D. [id number] HCO3 (Bld) [Moles/Vol] 23.5 mmol/L Normal 22.0-26.[address] [facility] Comment on above: Performed By: #### 4 8716 #### LAB [address] [address] Les Malone M.D. [id number] Hematocrit (Bld) [Volume fraction] 31.5 % Low 41.0-53.[address] [facility] Comment on above: Performed By: #### 4 8716 ####[facility] [address] [address] Les Malone M.D. [id number] Hemoglobin (Bld) [Mass/Vol] 10.3 g/dL Low 13.5-17.[address] [facility] Comment on above: Performed By: #### 4 8716 ####[facility] [address] [address] Les Malone M.D. [id number] Oxygen saturation in Blood 98.4 % Normal 92.0-99.[address] [facility] Comment on above: Performed By: #### 4 8716 ####[facility] [address] [address] Les Malone M.D. [id number] PCO2 ARTERIAL 42.6 mm Hg Normal 35.0-45.[address] [facility] Comment on above: Performed By: #### 4 8716 ####[facility] [address] [address] Les Malone M.D. [id number] PEEP RAD [address] [facility] Comment on above: Performed By: #### 4 8716 #### LAB [address] [address] Les Malone M.D. [id number] PH ARTERIAL 7.35 Normal 7.35-7.[address] [facility] Comment on above: Performed By: #### 4 8716 #### LAB [address] [address] Les Malone M.D. [id number] PO2 ARTERIAL 114 mm Hg High 80-[address] [facility] Comment on above: Performed By: #### 4 8716 ####[facility] [address] [address] Les Malone M.D. [id number] RESP RATE RAD 22 [facility] Comment on above: Performed By: #### 4 8716 #### LAB [address] [address] Les Malone M.D. [id number] SPECIMEN SOURCE RADIANCE Not specified [facility] Comment on above: Performed By: #### 4 8716 #### LAB [address] [address] Les Malone M.D. [id number] TIDAL VOLUME RAD 450 [facility] Comment on above: Performed By: #### 4 8716 ####[facility] [address] [address] Les Malone M.D. [id number] POC GLUCOSE [facility] 024 Glucose [Mass/Vol] 143 mg/dL High [address] [place] [address] Comment on above: Performed By: #### 4 6932 ####[facility] [address] [address] Les Malone M.D. [id number] Glucose [Mass/Vol] 142 mg/dL High [address] [place] [address] Comment on above: Performed By: #### 4 6932 ####[facility] [address] [address] Les Malone M.D. [id number]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 clinical situations: INR 2.0-3.0Mechanical Prosthetic Valve: INR 2.5-3.5Critical: INR >5.0 Performed By: #### 4 6391 ####[facility] [address] [place], [place] [address] Les Malone M.D. [id number] TYPE AND SCREENon 12-29-2023 TYPE AND SCREEN ABORH: O Positive AB SCREEN: Negative EXPIRATION DATE: 01/01/2024 23:59 EST [facility] [facility] XR CHEST PA/APon 12-29-2023 XR CHEST PA/AP [facility] Comment on above: Order Comment: Injur y/Trauma or Illness?:Injury/TraumaHow long have you had these symptoms (acute/chronic)?:AcuteReason for exam?:trauma level 1History of cancer?:uSurgeries, chemotherapy, or radiation?:uType of Exam?:InitialMechanism of injury?:trauma level 1 XR PELVIS 1 VIEW (STANDARD)o n 12-29-2023 XR PELVIS 1 VIEW (STANDARD) [facility] Comment on above: Order Comment: Injur y/Trauma or Illness?:Injury/TraumaHow long have you had these symptoms (acute/chronic)?:AcuteReason for exam?:trauma level 1History of cancer?:uSurgeries, chemotherapy, or radiation?:uType of Exam?:InitialMechanism of injury?:trauma level 1 Absolute lymphocyte countOrd ered By: Markel Bell on 05-02-2023 Lymphocytes Auto (Unsp spec) [#/Vol] 3.05 10*3/uL 0.83-4.51 [facility] Basophil percentageOrdered B y: Markel Bell on 05-02-2023 Basophil percentage 0-5 SEEN /hpf 0-5 [facility] Basophils/100 WBC (Bld) 0.3 % 0-1 [facility] Bilirubin [Mass/Vol] 0.30 mg/dL 0.20-1.00 [facility] Comment on above: For patients on eltr ombopag therapy, use of [employer] [place] TBIL is not recommended. Chloride [Moles/Vol] 106 mmol/L 98-107 [facility] Cholesterol [Mass/Vol] 176 mg/dL <200 [facility] Comment on above: <200 mg/dL Desirable 200-240 mg/dL Borderline >240 mg/dL High Risk Eosinophils/100 WBC (Bld) 1.7 % 0-5 [facility] Glucose [Mass/Vol] 98 mg/dL 74-106 [facility] Neutrophils (Bld) [#/Vol] 7.3 10*3/uL 2.0-7.7 [facility] Neutrophils/100 WBC (Bld) 63.2 % 47-70 [facility] Potassium [Moles/Vol] 3.9 mmol/L 3.5-5.1 [facility] Protein [Mass/Vol] 7.3 g/dL 6.4-8.2 [facility] Sodium [Moles/Vol] 140 mmol/L 136-145 [facility] Triglyceride [Mass/Vol] 256 mg/dL <199 [facility] Comment on above: The drugs N-Acetylcy steine and Metamizole may falsely depress this assay.Serum Triglycerides Reference Interval Normal <150 mg/dL Borderline high 150 - 199 mg/dL High 200 - 499 mg/dL Very High > or = 500 mg/dL WBC (Bld) [#/Vol] 11.5 10*3/uL 4.4-11.0 [facility] Bilirubin Test strip Ql (U)O rdered By: Markel Bell on 05-02-2023 Bilirubin Ql (U) Negative Negative [facility] Blood erythrocytes count (nu mber/volume)Ordered By: Markel Bell on 05-02-2023 RBC (Bld) [#/Vol] 5.39 10*6/uL 4.6-6.2 [facility] Blood hemoglobin measurement (mass/volume)Ordered By: Markel Bell on 05-02-2023 Hemoglobin (Bld) [Mass/Vol] 15.4 g/dL 13.0-16.5 [facility] Blood lymphocytes/100 leukoc ytesOrdered By: Markel Bell on 05-02-2023 Lymphocytes/100 WBC (Bld) 26.5 % 19-41 [facility] Blood monocytes/100 leukocyt esOrdered By: Markel Bell on 05-02-2023 Monocytes/100 WBC (Bld) 7.2 % 0-10 [facility] Blood platelet mean volumeOr dered By: Markel Bell on 05-02-2023 Platelet mean volume (Bld) [Entitic vol] 11.1 fL 6.2-12.0 [facility] Determination of erythrocyte mean corpuscular volume (MCV)Ordered By: Markel Bell on 05-02-2023 MCV (RBC) [Entitic vol] 86.6 fL 80-94 [facility] Hematocrit Auto (Bld) [Volum e fraction]Ordered By: Markel Bell on 05-02-2023 Hematocrit (Bld) [Volume fraction] 46.7 % 40-54 [facility] Ketones Test strip Ql (U)Ord ered By: Markel Bell on 05-02-2023 Ketones Ql (U) Negative Negative [facility] Laboratory - Chemistry and C hemistry - challengeOrdered By: Markel Bell on 05-02-2023 ALP [Catalytic activity/Vol] 111 U/L 45-117 [facility] ALT [Catalytic activity/Vol] 39 U/L 16-61 [facility] CO2 [Moles/Vol] 28.0 mmol/L 21.0-32.0 [facility] Globulin (S) [Mass/Vol] 3.9 g/dL 2.2-4.2 [facility] Magnesium [Mass/Vol] 2.3 mg/dL 1.6-2.6 [facility] Urea nitrogen/Creatinine [Mass ratio] 16.8 mg/mg 10-20 [facility] Laboratory - Hematology and Cell countsOrdered By: Markel Bell on 05-02-2023 Erythrocyte distribution width (RBC) [Entitic vol] 42.8 fL 35.1-43.9 [facility] Erythrocyte distribution width (RBC) [Ratio] 13.6 % 11.6-14.6 [facility] Immature granulocytes/100 WBC (Bld) 1.100 % 0.0-0.9 [facility] Comment on above: IG% - Immature Granu locytes (promyelocytes, myelocytes and metamyelocytes) > 1% indicates that a LEFT SHIFT is Present. MCH (RBC) [Entitic mass] 28.6 pg 27.0-32.0 [facility] Nucleated RBC/100 WBC (Bld) [Ratio] 0 % 0-5 [facility] ([facility]BC) [Mass/Vol]Or dered By: Markel Bell on 05-02-2023 MCHC (RBC) [Mass/Vol] 33.0 g/dL 32-36 [facility] Mucus LM Ql (Urine sed)Order ed By: Markel Bell on 05-02-2023 Mucus Ql (Urine sed) 0 SEEN /hpf [facility] Nitrite Test strip Ql (U)Ord ered By: Markel Bell on 05-02-2023 Nitrite Ql (U) Negative Negative [facility] No Panel InformationOrdered By: Markel Bell on 05-02-2023 Estimated GFR (MDRD) Amer 80 mL/min >60 [facility] Comment on above: GFR Calc Estimated GFR (MDRD) Non-Af Amer 66 mL/min >60 [facility] Comment on above: Non- GFR Calc Prostate Specific Antigen Screen 0.65 ng/mL 0.00-4.00 [facility] Comment on above: This test was perfor med using the TPSA assay method for the[employer] chemistry system. Values obtained with differentassay methods cannot be used interchangably.When changing PSA assays in the course of monitoring apatient, additional sequential testing should be carriedout to confirm baseline values. Thyroid Stimulating Hormone (TSH) 3.20 uIU/mL 0.358-3.74 [facility] Platelets bldOrdered By: Jude Bell on 05-02-2023 Platelets (Bld) [#/Vol] 278 10*3/uL 150-450 [facility] Protein Test strip Ql (U)Ord ered By: Markel Bell on 05-02-2023 Protein Ql (U) 15 mg/dl Negative [facility] Serum or plasma albumin dov urement (mass/volume)Ordered By: Markel Bell on 05-02-2023 Albumin [Mass/Vol] 3.4 g/dL 3.2-5.0 [facility] Serum or plasma albumin/glob ulin mass ratioOrdered By: Markel Bell on 05-02-2023 Albumin/Globulin [Mass ratio] 0.9 {ratio} 0.9-2.4 [facility] Serum or plasma calcium dov urement (mass/volume)Ordered By: Markel Bell on 05-02-2023 Calcium [Mass/Vol] 8.6 mg/dL 8.5-10.1 [facility] Serum or plasma cholesterol in HDL measurement (mass/volume)Ordered By: Markel Bell on 05-02-2023 Cholesterol in HDL [Mass/Vol] 40 mg/dL >40 [facility] Comment on above: The drugs N-Acetylcy steine and Metamizole may falsely depress this assay. Reference Range HDL <40 mg/dL Low HDL Cholesterol HDL >or= 60 mg/dL High HDL Cholesterol Serum or plasma cholesterol in VLDL measurement (mass/volume)Ordered By: Markel Bell on 05-02-2023 Cholesterol in VLDL [Mass/Vol] 51 mg/dL 5-40 [facility] Serum or plasma creatinine m easurement (mass/volume)Ordered By: Markel Bell on 05-02-2023 Creatinine [Mass/Vol] 1.25 mg/dL 0.70-1.30 [facility] Comment on above: The validity of the calculated GFR & GFRAA in patients over 70 years has not been determined. Clinical correlation is essential. Serum or plasma low density lipoprotein (LDL) cholesterol measurement (mass/volume)Ordered By: Markel Bell on 05-02-2023 Cholesterol in LDL [Mass/Vol] 85 mg/dL 0-130 [facility] Serum or plasma urea nitroge n measurement (mass/volume)Ordered By: Markel Bell on 05-02-2023 Urea nitrogen [Mass/Vol] 21 mg/dL 7-18 [facility] Squamous epithelial cells de tection in urine sediment by light microscopyOrdered By: Markel Bell on 05-02-2023 Epithelial cells.squamous LM Ql (Urine sed) 0 SEEN /hpf 0-5 [facility] Thin prep Papanicolaou smear with manual screeningOrdered By: Markel Bell on 05-02-2023 Thin prep Papanicolaou smear with manual screening 18 U/L 15-37 [facility] Thin prep Papanicolaou smear with manual screening 6 5-15 [facility] Urine blood detectionOrdered By: Markel Bell on 05-02-2023 RBC Ql (U) 25 /ul Negative [facility] RBC Ql (U) 0-5 SEEN /hpf 0-5 [facility] Urine clarityOrdered By: Jude Bell on 05-02-2023 Clarity (U) Clear Clear [facility] Urine color determinationOrd ered By: Markel Bell on 05-02-2023 Color (U) Yellow Yellow [facility] Urine glucose detectionOrder ed By: Markel Bell on 05-02-2023 Glucose Ql (U) Normal mg/dl Normal [facility] Urine leukocyte esterase det ection by dipstickOrdered By: Markel Bell on 05-02-2023 Leukocyte esterase Test strip Ql (U) Negative Negative [facility] Urine pHOrdered By: Markel del valle on 05-02-2023 pH (U) 6.0 [pH] 5.0 - 8.0 [facility] Urine sediment bacteria coun t by microscopy (number/high power field)Ordered By: Markel Bell on 05-02-2023 Bacteria LM.HPF (Urine sed) [#/Area] 0 /[HPF] None Seen [facility] Urine specific gravity measu rementOrdered By: Markel Bell on 05-02-2023 Specific gravity (U) [Rel density] 1.025 1.002-1.030 [facility] Urobilinogen Auto test strip Ql (U)Ordered By: Markel Bell on 05-02-2023 Urobilinogen Ql (U) Normal mg/dl Normal [facility] ANES Justice 04-23-2017 ANES POST HNO ID: [id number]: Jennifer AbarcainService: AnesthesiologyAuthor Type: AnesthesiologistType: Anesthesia PostOpFiled: [...] 23, 2017 : 2:30 PM PAGER/CONTACT #: [phone] [facility] ANES PREOPon 04-23-2017 ANES PREOP HNO ID: [id number]: Jennifer Zarcoervice: AnesthesiologyAuthor Type: AnesthesiologistType: Anesthesia PreOpFiled: [...] April 23, 2017 : 9:04 AM CSN: [id number] [facility] BRIEF OP NOTon 04-23-2017 BRIEF OP NOT HNO ID: [id number]: Alicia Espinoervice: General SurgeryAuthor Type: PhysicianType: Brief Op NoteFiled: 04/23/2017 11:05 AMNote Text:BRIEF OPERATIVE NOTATION FOR SURGICAL PROCEDURE.Maida Pickett Meshew 1980 [id number] maleLOG ID: [id number]/Procedure Date: 04/23/2017Incision/Proce dure Start Time: 10:17 AMIncision Close/Procedure End Time: 11:[address])/[address](s) and Director Global Market Research(s):Surgeon(s) and Role: * Alicia Dubon - PrimaryRegistered Nurse Party Chief: Zaria (Rn) CHIP BrooksREFERRING PHYSICIAN:OutpatientDEPT : REMIGIO PROVIDER: Patricia POS:[id number] ESIA: GeneralASA CLASS: 2 - mildDIAGNOSIS: pancreatitisPROCEDURE: LAPAROSCOPIC CHOLECYSTECTOMY WITH INTRAOPERATIVE CHOLEANGIOGRAM- 69560-423DEH: 1000EBL: 5Specimens: gallbladderADDITIONAL DIAGNOSES:FINDINGS: normal IOCCOMPLICATIONS: NonePMHx -PAST MEDICAL HISTORYDiagnosis Date- Hypertension- Hypokalemia 04/18/2017- Migraines 04/18/2017- Tattoo 1998- Thumb fracture 2004 left- Varicella without mention of complication ChickenpoxCOMORBIDITIES - Obesity and HTNPost Op Occurrences - NoneWound Classification - Clean ContaminatedOperative note dictated in the dictation system. [id number] Dubon MD [facility] HISTORY PHYSICALon 7 HISTORY PHYSICAL HNO ID: [id number]: Alicia Espinoervice: General SurgeryAuthor Type: PhysicianType: HANDPFiled: 04/23/2017 9:31 AMNote Text:HISTORY AND PHYSICAL?Maida Pickett Flukfp10 1980?DAVID Russo PHYSICIAN: Self?CHIEF COMPLAINT: Consult (Consult [...] Procedure: LAPAROSCOPIC CHOLECYSTECTOMY WITH INTRAOPERATIVECHOLEANGIO GRAM - 38698-111?Planned antibiotic: Ancef 2gm IVPB pediatric occupational therapist to OR?SCDs needed - Yes?Director Global Market Research Needed - Yes?Diagnoses: (R10.10) Pain of upper abdomen (primary encounter diagnosis)(K85.90) Acute pancreatitis, unspecified complication status, unspecifiedpancreatitis type??He will return on April 17 to review the MRI with plans for surgicalintervention on April 23??? Alicia Dubon MD [facility] NURSING PROGon 04-23-2017 NURSING PROG HNO ID: [id number]: Celeste McnairRn) AUGIE Bauerervice: NursingAuthor Type: Registered NurseType: Nursing Progress NoteFiled: 04/23/2017 1:36 PMNote Text:1213 Received from pacu C/o abd pain level 2 Light diet to [id number] Discharge instructions reviewed with pt and Iv removed Upto chair Steady when up [id number] Discharged by wheelchair Normal [facility] OPERATIVE NOon 04-23-2017 OPERATIVE NO HNO ID: [id number]: Alicia Espinoervice: General SurgeryAuthor Type: PhysicianType: Operative ReportFiled: 04/24/2017 6:57 PMNote Text:[facility]- Operative ReportMAIDA POLANCO CDOB: 1980 AGE: 37 SEX: MMRN: [id number] ACCTNUM: [id number] SVC: GEN LOCATION: [address] PHYSICIAN: Alicia Dubon M.D.DATE OF PROCEDURE: 04/23/2017SURGEON: Alicia Dubon M.D.STEAM TABLE ATTENDANT: Juan DooleyANESTHESIA: General endotracheal.PREOPERATIV E DIAGNOSIS(ES): Biliary pancreatitis without other knownobvious etiology.POSTOPERATIVE DIAGNOSIS(ES): Adhesions of the gallbladder consistent withchronic cholecystitis, normal cholangiogram.NAME OF OPERATION: Laparoscopic colostomy on cholangiogram.INDICATION S:ESTIMATED BLOOD LOSS: 5 cc.COMPLICATIONS: None.SPECIMENS: Gallbladder.DRAINS: None.URINE OUTPUT: No catheter.LOG ID: #[id number].START TIME: 10:17.END TIME: 11:01.ASA: 2.INTRAVENOUS FLUIDS: 1000 [...] removed from the umbilical portsite. 0 Maxon vsbgdu-yo-pwomb suture was placed on the supraumbilicalport site [...] recovery room in stable condition.Alicia Dubon M.D.General SurgeryRG:[id number]: 04/23/2017 11:05:32T: 04/23/2017 20:38:18Job #: [id number] [facility] PLAN OF CAREon 04-23-2017 PLAN OF CARE HNO ID: [id number]: Annetta Bonilla ([email or web address])Service: (none)Author Type: TechnicianType: Plan of CareFiled: 04/23/2017 12:49 PMNote Text:WEAVER NEEDLE LOOM BEDSIDE DELIVERY SURVEY1. Patient to use [facility] Bedside Delivery - YES2. If fax, patient would like us to fax prescriptions to [facility] a. Pharmacy: b. Location: c. Phone:3. Insurance card on file - YES4. Credit card for payment - YESPHARMACY BEDSIDE DELIVERY SERVICEPatient Name: Maida Pickett MeshewMRN: [id number] marked outpatient medications were Filled at: [facility] and delivered tothe patient's bedside to pharm p/uMedication ListSTART taking these medicationsX oxyCODONE-acetaminophen 5-325 mg tabletCommonly known as: PERCOCETTake 1 tablet by mouth every 6 hours as needed for Pain for up to 20doses.CONTINUE taking these medications potassium chloride ER 20 mEq tabletCommonly known as: K-DUR, KLOR-CONTake 1 tablet by mouth twice daily.Annetta Bonilla (Peeled Potato Inspector)PAGER: [id number] 2016 12:[address] [facility] SURGICAL PATHOLOGYon 017 SURGICAL PATHOLOGY [facility]: [id number] Physician: ALICIA DUBON MD ____FINAL DIAGNOSISGallbladder, cholecystectomy [...] a wall thicknessmeasuring up to 0.1 cm. Provider Relations Coordinator sections are submitted in cassetteA1.TN/dbb 04/23/2017Gross examination performed at [facility] [place] [id number] ID #: [id number] of Report: 04/25/2017Date of Procedure: 04/23/2017Date of Receipt: 04/23/2017Submitted by: ALICIA DUBON MDLocation: MEORDiagnostic interpretation performed at [facility] [address] [facility] Comment on above: Performed By: #### P ATHS ####[facility] [id number] [place], [place] [phone] XR CHOLANGIOGRAM INTRAOPon 1 06-24-2016 Cholesterol * * *Final Report* * *DATE OF EXAM: Apr 23 2017 10:38AM MDR 5421 - XR CHOLANGIOGRAM INTRAOP / REASON: ABDOMINAL PAIN * * * * Physician Interpretation * * * * Study: Cholangiogram in OR:HISTORY:Indication: ABDOMINAL PAINTECHNIQUE:Fluoroscop ic Radiation Summary:Plane A, Air Kerma: 2.3 mGyDose Area Product (DAP): 778.8 mGy*nsT7Smgxbo time: 0:07 min:secImages: Cinefluoroscopy was performed. Digital [...] of extravasation is seen.IMPRESSION:No acute pathology.[facility]i st[facility] Transcribe Date/Time: Apr 23 2017 3:42PDictated by : Marciano MARTINEZ examination was interpreted and the report reviewed and electronically signed by: BRE BERRY DO on Apr 23 2017 3:42PM [id number] [facility] NURSING PROGon 04-22-2017 NURSING PROG HNO ID: [id number]: AUGIE You Rnervice: (none)Author Type: Registered NurseType: [...] HypokalemiaPre-op Considerations:DOS- repeat serum K-future order in [facility].Chart Check:Ashley Giron 2016 10:[address] [facility] HOSP 03-21-2017 HOSP Patient:Maida Polanco CMRN: Height:6' [...] 3.7HEMA* 45.6 % 04/17/2017 51.0 39.0Progress Notes ([facility]):Alicia Dubon MD 04/17/2017 12:25 PM [...] Procedure: LAPAROSCOPIC CHOLECYSTECTOMY WITH INTRAOPERATIVECHOLEANGIO GRAM - 71549-109Uuccasw antibiotic: Ancef 2gm IVPB pediatric occupational therapist to ORSCDs needed - YesAssistant Needed - [...] week and will proceed.Aida Salgado LPN Normal [facility] Vital Signs Date Time Vital Sign Value Performing Clinician Facility 03-09-2025 15:17-0500 Diastolic blood pressure 76 mm[Hg] Neelima Villarreal MD Work Phone: [facility] 03-09-2025 15:17-0500 Heart rate 75 /min Neelima Villarreal MD Work Phone: [facility] 03-09-2025 15:17-0500 Systolic blood pressure 123 mm[Hg] Neelima Villarreal MD Work Phone: [facility] 02-22-2025 09:59-0400 Diastolic blood pressure 54 mm[Hg] Cristine Carpio MD Work Phone: [facility] 02-22-2025 09:59-0400 Heart rate 61 /min Cristine Carpio MD Work Phone: [facility] 02-22-2025 09:59-0400 SaO2% (BldA) [Mass fraction] 94 % Cristine Carpio MD Work Phone: [facility] 02-22-2025 09:59-0400 Systolic blood pressure 91 mm[Hg] Cristine Carpio MD Work Phone: [facility] 02-02-2025 11:34-0400 Body temperature 96.1 [degF] Dr. Markel Bell MD Work Phone: [facility] 02-02-2025 11:34-0400 Diastolic blood pressure 78 mm[Hg] Dr. Markel Bell MD Work Phone: [facility] 02-02-2025 11:34-0400 Heart rate 58 /min Dr. Markel Bell MD Work Phone: [facility] 02-02-2025 11:34-0400 Respiratory rate 16 /min Dr. Markel Bell MD Work Phone: [facility] 02-02-2025 11:34-0400 Systolic blood pressure 140 mm[Hg] Dr. Markel Bell MD Work Phone: [facility] 01-26-2025 10:04-0400 Body temperature 96.4 [degF] Dr. Markel Bell MD Work Phone: [facility] 01-26-2025 10:04-0400 Diastolic blood pressure 105 mm[Hg] Dr. Markel Bell MD Work Phone: [facility] 01-26-2025 10:04-0400 Heart rate 59 /min Dr. Markel Bell MD Work Phone: [facility] 01-26-2025 10:04-0400 Respiratory rate 16 /min Dr. Markel Bell MD Work Phone: [facility] 01-26-2025 10:04-0400 Systolic blood pressure 147 mm[Hg] Dr. Markel Bell MD Work Phone: [facility] 12-29-2024 09:18-0400 Body temperature 97.3 [degF] Dr. Markel Bell MD Work Phone: [facility] 12-29-2024 09:18-0400 Diastolic blood pressure 72 mm[Hg] Dr. Markel Bell MD Work Phone: 4(918)[phone] [place] [address] 12-29-2024 09:18-0400 Heart rate 59 /min Dr. Markel Bell MD Work Phone: [facility] 12-29-2024 09:18-0400 Respiratory rate 16 /min Dr. Markel Bell MD Work Phone: [facility] 12-29-2024 09:18-0400 Systolic blood pressure 122 mm[Hg] Dr. Markel Bell MD Work Phone: [facility] 12-01-2024 13:39-0400 Body temperature 97.3 [degF] Dr. Markel Bell MD Work Phone: [facility] 12-01-2024 13:39-0400 Diastolic blood pressure 67 mm[Hg] Dr. Markel Bell MD Work Phone: [facility] 12-01-2024 13:39-0400 Heart rate 49 /min Dr. Markel Bell MD Work Phone: [facility] 12-01-2024 13:39-0400 Respiratory rate 16 /min Dr. Markel Bell MD Work Phone: [facility] 12-01-2024 13:39-0400 Systolic blood pressure 124 mm[Hg] Dr. Markel Bell MD Work Phone: [facility] 11-24-2024 09:35-0400 Body temperature 97 [degF] Dr. Markel Bell MD Work Phone: [facility] 11-24-2024 09:35-0400 Diastolic blood pressure 57 mm[Hg] Dr. Markel Bell MD Work Phone: [facility] 11-24-2024 09:35-0400 Heart rate 61 /min Dr. Markel Bell MD Work Phone: [facility] 11-24-2024 09:35-0400 Respiratory rate 16 /min Dr. Markel Bell MD Work Phone: [facility] 11-24-2024 09:35-0400 Systolic blood pressure 107 mm[Hg] Dr. Markel Bell MD Work Phone: [facility] 11-19-2024 13:31-0400 Body mass index (BMI) [Ratio] 32.28 kg/m2 Neelima Villarreal MD Work Phone: [facility] 11-19-2024 13:31-0400 Body weight 107.96 kg Neelima Villarreal MD Work Phone: [facility] 11-19-2024 13:31-0400 Diastolic blood pressure 74 mm[Hg] Neelima Villarreal MD Work Phone: [facility] 11-19-2024 13:31-0400 Heart rate 58 /min Neelima Villarreal MD Work Phone: [facility] 11-19-2024 13:31-0400 Systolic blood pressure 121 mm[Hg] Neelima Villarreal MD Work Phone: [facility] 10-26-2024 08:37-0400 Body mass index (BMI) [Ratio] 35.2 kg/m2 Dr. Markel Bell MD Work Phone: [facility] 10-26-2024 08:37-0400 Body temperature 97.7 [degF] Dr. Markel Bell MD Work Phone: [facility] 10-26-2024 08:37-0400 Diastolic blood pressure 78 mm[Hg] Dr. Markel Bell MD Work Phone: [facility] 10-26-2024 08:37-0400 Heart rate 63 /min Dr. Markel Bell MD Work Phone: 5(322)144-368092 [place] [address] 10-26-2024 08:37-0400 Respiratory rate 16 /min Dr. Markel Bell MD Work Phone: 0(919)395-248692 [place] [address] 10-26-2024 08:37-0400 Systolic blood pressure 131 mm[Hg] Dr. Markel Bell MD Work Phone: 0(091)062-085892 [place] [address] 10-05-2024 08:16-0400 Body mass index (BMI) [Ratio] 35.2 kg/m2 Dr. Markel Bell MD Work Phone: 5(399)521-978592 [place] [address] 10-05-2024 08:16-0400 Body temperature 97.6 [degF] Dr. Markel Bell MD Work Phone: 9(081)567-237192 [place] [address] 10-05-2024 08:16-0400 Respiratory rate 16 /min Dr. Markel Bell MD Work Phone: 2(143)315-760692 [place] [address] 10-03-2024 00:23-0400 Body weight 117.[address] Markel Bell MD Work Phone: [facility] 10-03-2024 00:23-0400 Diastolic blood pressure 67 mm[Hg] Dr. Markel Bell MD Work Phone: 9(582)208-909492 [place] [address] 10-03-2024 00:23-0400 Heart rate 53 /min Dr. Markel Bell MD Work Phone: [facility] 10-03-2024 00:23-0400 Systolic blood pressure 137 mm[Hg] Dr. Markel Bell MD Work Phone: 4(369)016-357592 [place] [address] 09-21-2024 11:13-0400 Body mass index (BMI) [Ratio] 35.2 kg/m2 Dr. Markel Bell MD Work Phone: [facility] 09-21-2024 11:13-0400 Body temperature 97 [degF] Dr. Markel Bell MD Work Phone: [facility] 09-21-2024 11:13-0400 Diastolic blood pressure 67 mm[Hg] Dr. Markel Bell MD Work Phone: [facility] 09-21-2024 11:13-0400 Heart rate 53 /min Dr. Markel Bell MD Work Phone: [facility] 09-21-2024 11:13-0400 Respiratory rate 16 /min Dr. Markel Bell MD Work Phone: [facility] 09-21-2024 11:13-0400 Systolic blood pressure 137 mm[Hg] Dr. Markel Bell MD Work Phone: [facility] 09-14-2024 10:35-0400 Body height 182.[address] Markel Bell MD Work Phone: [facility] 09-14-2024 10:35-0400 Body weight 117.[address] Markel Bell MD Work Phone: [facility] 08-12-2024 10:00-0400 Body height 182.9 cm [facility] PT [facility] 08-12-2024 10:00-0400 Body mass index (BMI) [Ratio] 32.28 kg/m2 Kaleigh Frank PT [facility] 08-12-2024 10:00-0400 Body weight 107.96 kg [facility] 06-30-2024 22:34-0500 Heart rate 57 /min Darnell Xiong MD Work Phone: [facility] 06-30-2024 10:31-0500 Body height 182.9 cm Darnell Xiong MD Work Phone: [facility] 06-30-2024 10:31-0500 Diastolic blood pressure 80 mm[Hg] Darnell Xiong MD Work Phone: [facility] 06-30-2024 10:31-0500 Heart rate 57 /min Darnell Xiong MD Work Phone: [facility] 06-30-2024 10:31-0500 SaO2% (BldA) [Mass fraction] 97 % Darnell Xiong MD Work Phone: [facility] Comment on above: room air 06-30-2024 10:31-0500 Systolic blood pressure 118 mm[Hg] Darnell Xiong MD Work Phone: [facility] 06-14-2024 10:32-0500 Body weight 107.5 kg Sci Michelle [facility] 06-14-2024 10:32-0500 Respiratory rate 16 /min [facility] 03-31-2024 11:26-0500 Diastolic blood pressure 77 mm[Hg] Kwan Oviedo PA-C Work Phone: [facility] 03-31-2024 11:26-0500 Heart rate 57 /min Kwan Oviedo PA-C Work Phone: [facility] 03-31-2024 11:26-0500 SaO2% (BldA) [Mass fraction] 95 % Kwan Oviedo PA-C Work Phone: [facility] 03-31-2024 11:26-0500 Systolic blood pressure 120 mm[Hg] Kwan Oviedo PA-C Work Phone: [facility] Encounters Encounter Date Encounter Type Care Provider Facility Start: 03-15-2025 ambulatory Markel Bell Facilit y:[facility] Start: 03-14-2025 ambulatory MAXINE GU Facility: [facility] Start: 03-10-2025 End: 03-10-2025 ambulatory Markel Bell [place] Start: 03-09-2025 End: 03-09-2025 ambulatory UNKNOWN PROVIDER [facility] Start: 03-09-2025 End: 03-09-2025 Patient encounter procedure Neelima Villarreal MD Work Phone: [facility] Comment on above: Spastic tetraplegia (HCC) (Primary Dx); Muscle spasticity Start: 03-09-2025 End: 03-09-2025 Telephone encounter Cristine Carpio MD Work Phone: [facility] Comment on above: Transfer RX request Start: 03-08-2025 End: 03-08-2025 ambulatory Emilyjoy Maynard [facility] Start: 03-08-2025 End: 03-08-2025 Patient encounter procedure Emilyjoy Maynard [facility] Comment on above: Clinically Administe red Medication (03/09/25 /[place] PM&R / [place] - PM&R/abobotulinumtoxinA (Dysport) 500 units SOLR injection ) Start: 02-23-2025 End: 03-04-2025 ambulatory [facility] Facility:[facility] Start: 02-22-2025 End: 02-23-2025 Office outpatient visit 40 minutes Cristine Carpio MD Work Phone: [facility] Comment on above: Spastic tetraplegia (HCC) (Primary Dx); Muscle spasticity; Urinary retention; Neurogenic bladder; Neurogenic bowel; Recurrent UTI; Autonomic dysreflexia; Neurogenic orthostatic hypotension (HCC) Start: 02-22-2025 End: 02-23-2025 ambulatory CRISTINE CARPIO Facility:[facility] Start: 02-10-2025 End: 02-10-2025 ambulatory Kwan Verma OTD, OTR/L, CHT [facility] Comment on above: OT Evaluation (1) Start: 02-08-2025 End: 02-08-2025 ambulatory Guevara Arias PharmD [facility] Start: 02-08-2025 End: 02-08-2025 Patient encounter procedure Guevara Arias PharmD [facility] Comment on above: Specialty Pharmacy R eferral (Dysport- New INS) Start: 02-02-[address] Les mcclellan DPM [facility] Work Phone: Start: 01-31-2025 End: 01-31-2025 ambulatory Maxine Gu PT Work Phone: [facility] Comment on above: PT Visit # (2) Start: 01-26-2025 End: 02-01-[address] Markel Bell MD Work Phone: [facility] Start: 01-26-2025 End: 02-01-[address] Les Shaikh DPM -[facility] nter Work Phone: Start: 01-13-2025 End: 01-20-2025 ambulatory UNKNOWN PROVIDER Facility:[facility] Start: 01-10-2025 End: 01-20-2025 Professional / ancillary services management Remote Device Checks Work Phone: [facility] Start: 12-29-2024 End: 01-02-2025 ambulatory Maxine Gu PT Work Phone: [facility] Comment on above: PT Eval (1) Start: 12-29-2024 End: 01-02-[address] Les Shaikh DPM -[facility] Work Phone: Start: 12-23-2024 End: 12-24-2024 ambulatory UNKNOWN PROVIDER Facility:[facility] Start: 12-23-2024 End: 12-24-2024 Office outpatient visit 25 minutes Ignacio Bonilla MD Work Phone: [facility] Comment on above: Tetraplegia (HCC) (P rimary Dx) Start: 12-02-2024 End: 12-02-2024 ambulatory Kaleigh Frank PT [facility] Comment on above: Treatment (At-home O OD AT assessment--[facility] office) Start: 12-01-2024 End: 12-02-[address] Markel Bell MD Work Phone: [facility] Start: 12-01-2024 End: 12-02-[address] Les Shaikh DPMychal -Wound Healing Ce nt Work Phone: Start: 11-30-2024 End: 11-30-2024 Telephone encounter Supriya Concepcion [facility] Start: 11-30-2024 End: 11-30-2024 Office outpatient visit 40 minutes Cristine Carpio MD Work Phone: [facility] Comment on above: Tetraplegia (HCC) (P [...] Start: 11-30-2024 End: 11-30-2024 ambulatory CRISTINE CARPIO Facility:[facility] Start: 11-25-2024 End: 11-25-[address] Markel Bell MD Work Phone: -[facility] Start: 11-25-2024 End: 11-25-[address] Markel Bell MD -[facility] Start: 11-25-2024 End: 11-25-2024 ambulatory Markel Bell Facility:[facility] Start: 11-24-[address] Les mcclellan DPM -[facility] Work Phone: Start: 11-19-2024 End: 11-23-2024 ambulatory UNKNOWN PROVIDER Facility:[facility] Start: 11-19-2024 End: 11-19-2024 Office outpatient visit 15 minutes Neelima Villarreal MD Work Phone: [facility] Comment on above: Tetraplegia (HCC) (P rimary Dx); Muscle spasticity; Body mass index (BMI) 32.0-32.9, adult Start: 11-12-2024 End: 11-18-2024 ambulatory Neelima Rockwell DO Work Phone: [facility] Comment on above: severe pain in both arms Start: 11-12-2024 End: 11-18-2024 E-mail encounter from caregiver Neelima Rockwell DO Work Phone: [facility] Start: 11-11-2024 ambulatory Les Shaikh Facility: [facility] Start: 11-11-2024 Non-patient / Non-visit Rosalina Bergman [facility] Start: 11-10-2024 End: 11-12-2024 Telephone encounter To Be Assigned [facility] Comment on above: Botox for Spacticity Notes Start: 10-26-2024 End: 11-01-[address] Markel Bell MD Work Phone: [facility] Start: 10-26-2024 End: 11-01-[address] Les Shaikh DPM -[facility] Healing Ce nt Work Phone: Start: 10-19-2024 End: 10-19-2024 ambulatory Cindy Pastor PharmD [facility] Comment on above: Refill Start: 10-19-2024 End: 10-19-2024 Patient encounter procedure Cindy Pastor PharmD [facility] Comment on above: Specialty Pharmacy R eferral (Botox: new insurance); Prior Authorization Specialty Pharmacy R eferral (Dysport/Denied:Botox: new insurance); Prior Authorization Start: 10-09-2024 End: 10-09-2024 Letter encounter Cristopher Walker MD Work Phone: [facility] Start: 10-07-2024 End: 10-07-[address] Markel Bell MD Work Phone: [facility] Work Phone: Start: 10-07-2024 End: 10-07-[address] German Finney DPM -[facility] [place] Work Phone: Start: 10-07-2024 End: 10-07-2024 ambulatory German Finney Facility:[facility] Start: 10-05-[address] Marcell Finney [facility] Work Phone: Start: 09-28-2024 End: 09-28-2024 ambulatory In-Clinic Device Checks Work Phone: [facility] Cardiology Device Comment on above: Pacemaker (Primary D x); Sinus node dysfunction (HCC) Start: 09-24-2024 End: 09-24-2024 ambulatory UNKNOWN PROVIDER Facility:[facility] Start: 09-21-2024 End: 10-02-[address] Markel Bell MD Work Phone: [facility] Work Phone: Start: 09-21-2024 End: 10-02-[address] German Finney [facility] Work Phone: Start: 08-29-2024 End: 08-29-2024 Letter encounter Cristopher Walker MD Work Phone: [facility] Start: 08-26-2024 End: 08-26-[address] Markel Bell MD -[facility] Start: 08-26-2024 End: 08-26-2024 ambulatory Markel Bell Facility:[facility] Start: 08-20-2024 End: 08-20-2024 ambulatory Cindy Pastor PharmD [facility] Start: 08-20-2024 End: 08-20-2024 Patient encounter procedure Cindy Vitakis PharmD [facility] Comment on above: Specialty Pharmacy R eferral (Botox); Prior Authorization Start: 08-19-2024 End: 08-19-2024 Patient encounter procedure [facility] Ot Provider [facility] Comment on above: Tetraplegia (HCC) (P rimary Dx); Impaired functional mobility, balance, and endurance Start: 08-19-2024 End: 08-20-2024 Office consultation new/estab patient 80 min Shruthi Sheffield MD Work Phone: [facility] Comment on above: Tetraplegia (HCC) (P rimary Dx) Start: 08-19-2024 End: 08-20-2024 ambulatory UNKNOWN PROVIDER Facility:[facility] Start: 08-19-2024 End: 08-20-2024 Office outpatient visit 15 minutes Ignacio Bonilla MD Work Phone: [facility] Comment on above: Tetraplegia (HCC) (P rimary Dx) Start: 08-18-2024 End: 08-18-2024 ambulatory Maxine Gu PT Work Phone: [facility] Comment on above: PT Visit # (4) Start: 08-12-2024 End: 08-12-2024 Home visit Kaleigh Frank PT [facility] Comment on above: Wheelchair Clinic (D elivery/fitting/pressure mapping in-home--visit 2) Start: 08-12-2024 End: 08-12-2024 ambulatory Kaleigh Frank PT [facility] Start: 07-26-2024 End: 07-26-2024 ambulatory UNKNOWN PROVIDER Facility:[facility] Start: 07-21-2024 End: 07-21-2024 Cardiac Device Check Robert Aldana MD Work Phone: [facility] Start: 07-21-2024 End: 07-21-2024 Cardiac Device Check Robert Aldana MD Work Phone: [facility] Start: 07-19-2024 ambulatory UNKNOWN PROVIDER Facili ty:[facility] Start: 07-14-2024 End: 07-14-2024 ambulatory CRISTOPHER WALKER Facility:[facility] Start: 07-14-2024 End: 07-14-2024 Subsequent hospital visit by physician Op Ultrasound 2 [facility] Comment on above: Neurogenic bladder Start: 06-30-2024 End: 06-30-2024 ambulatory UNKNOWN PROVIDER Facility:[facility] Start: 06-30-2024 End: 06-30-2024 Office consultation new/estab patient 40 min Darnell Xiong MD Work Phone: [facility] Card[facility] Comment on above: H/O cardiac arrest ( Primary Dx); Other specified hypotension; Hypertriglyceridemia; Body mass index (BMI) 32.0-32.9, adult; Bradycardia, unspecified Start: 06-28-2024 End: 06-28-2024 Emergency department patient visit [facility] Start: 06-18-2024 End: 06-22-2024 ambulatory [facility] Start: 06-14-2024 End: 06-15-2024 Office outpatient new 45 minutes Sci Fellow Michelle [facility] [place] [facility] Comment on above: Tetraparesis (HCC) ( Primary Dx); Cervical spinal cord injury, sequela (HCC); Traumatic brain injury with loss of consciousness, sequela (HCC); Neurogenic bowel; Neurogenic bladder; Muscle spasticity; Erectile dysfunction, unspecified erectile dysfunction type; Immunodeficiency (HCC) Start: 06-14-2024 End: 06-15-2024 ambulatory UNKNOWN PROVIDER Facility:[facility] Start: 05-26-2024 End: 05-26-2024 ambulatory Maxine Gu PT Work Phone: [facility] Comment on above: PT Visit # (2) Start: 05-10-2024 End: 05-10-2024 ambulatory [facility] Start: 04-26-2024 End: 04-26-2024 Letter encounter Mychart Provider [facility] MyChart Department Start: 04-26-2024 End: 04-27-2024 Telephone encounter Darnell Xiong MD Work Phone: [facility] Card[facility] Start: 04-26-2024 End: 04-26-2024 ambulatory Cathy Narayanan OTR/L [facility] Comment on above: OT Evaluation (Visit 1) PT Eval (1) Start: 04-20-2024 End: 04-20-2024 ambulatory [facility] Facility:[facility] Start: 04-18-2024 End: 04-20-2024 Cardiac Device Check Robert Aldana MD Work Phone: [facility] Start: 04-18-2024 End: 04-20-2024 Cardiac Device Check Robert Aldana MD Work Phone: [facility] Start: 04-13-2024 End: 04-29-2024 Telephone encounter Cristopher Walker MD Work Phone: [facility] Urologic Surgery Start: 04-13-2024 End: 04-13-2024 ambulatory [facility] Facility:[facility] Start: 04-12-2024 End: 04-12-2024 Telephone encounter Cristopher Walker MD Work Phone: [facility] Urologic Surgery Start: 04-09-2024 End: 04-09-2024 ambulatory CRISTOPHER WALKER Facility:[facility] Start: 04-09-2024 End: 04-09-2024 Office outpatient new 45 minutes Cristopher Walker MD Work Phone: [facility] Urologic Surgery Comment on above: Urine retention (Tasha mason Dx); Cloudy urine; Neurogenic bladder Start: 2024 End: 2024 Office outpatient new 45 minutes Ignacio Borrego MD Work Phone: [facility] Comment on above: Bursitis of right sh oulder (Primary Dx); Tendinosis of right rotator cuff Start: 2024 End: 2024 ambulatory [facility] Facility:[facility] Start: 04-06-2024 End: 04-06-2024 Documentation procedure Kwan Oviedo PA-C Work Phone: [facility] Start: 04-06-2024 End: 04-06-2024 ambulatory [facility] Start: 04-02-2024 End: 04-02-2024 Transcribe Orders Daquan Fiore MD Work Phone: [facility] Physician Referral Service Start: 03-31-2024 End: 03-31-2024 Postop follow up visit related to original px Kwan Oviedo PA-C Work Phone: [facility] Comment on above: Cervical compression fracture, initial encounter (HCC) (Primary Dx); Acute pain of right shoulder; Tear of right supraspinatus tendon; Presence of IVC filter Start: 03-31-2024 End: 03-31-2024 ambulatory PHYSICIAN NO [facility] Start: 03-30-2024 End: 03-30-2024 Transcribe Orders Daquan Fiore MD Work Phone: [facility] Physician Referral Service Start: 03-26-2024 End: 03-26-2024 ambulatory Markel Bell Facility:[facility] Start: 02-18-2024 End: 03-24-2024 Evaluation and management of inpatient LEONID GEORGE Facility:[facility] Start: 02-03-2024 Evaluation and management of inpatient PHYSICIAN [facility] Start: 01-20-2024 ambulatory PHYSICIAN NO [facility] Start: 01-06-2024 End: 01-06-2024 Evaluation and management of inpatient PHYSICIAN NO [facility] Start: 12-29-2023 End: 02-18-2024 Evaluation and management of inpatient LEONIDKINDRA RAERICK [facility] Start: 05-02-2023 End: 05-02-2023 ambulatory [facility] Work Phone: Start: 05-02-2023 End: 05-02-2023 Patient encounter [facility] Start: 04-23-2017 End: 04-23-2017 Ambulatory [facility] Procedures Date Procedure Procedure Detail Performing [...] MD Work Phone: Start: 03-02-2024 Meropenem LEONID [facility] Comment on above: Order Comment: For [...] Performed By: #### L [id number] #### [facility] ([facility]) [address] [place] [address] Plan of Treatment Date Care Activity Detail Author Start: 11-25-2029 Lipid panel Cholesterol [facility] Start: 08-26-2029 Lipid panel Cholesterol [facility] Start: 05-02-2028 Lipid panel Cholesterol [facility] Start: 2028 Shingles (RZV) Vaccine (1 of 2) Shingles (RZV) Vaccine (1 of 2) [facility] Start: 07-11-2025 End: 07-11-2025 Professional / ancillary services management 07/11/2025 8:00 AM EDT Cardiology Ancillary [facility] Cardiology [address] [place] [address] [facility] Start: 06-28-2025 Creatinine measurement Basic Metabolic Panel [facility] Start: 06-10-2025 End: 06-10-2025 Patient encounter procedure 06/10/2025 3:00 PM EST [facility] [place] [facility] [address], [place] [id number] Neelima Villarreal MD [address] [place] [address] [facility] [place] [facility] Start: 04-11-2025 End: 04-11-2025 Professional / ancillary services management 04/11/2025 8:00 AM EST Cardiology Ancillary [facility] Cardiology [address] [place] [address] [facility] Start: 04-06-2025 End: 04-06-2025 Telemedicine consultation with patient 04/06/2025 11:15 AM EST Telemedicine [facility] [address] [place] [address] Shruthi Sheffield MD [address] [place] [address] [facility] Start: 03-14-2025 End: 03-14-2025 ambulatory 03/14/2025 12:45 PM EST [facility] [address] [place] [address] Maxine Gu, PT [address] [place] [address] [facility] Start: 03-09-2025 End: 03-09-2025 Patient encounter procedure 03/09/2025 2:30 PM EST Office Visit [facility] [address] [place] [address] Neelima Villarreal MD [address] [place] [address] [facility] Start: 02-22-2025 End: 02-22-2025 Patient encounter procedure 02/22/2025 10:00 AM EDT Office Visit [facility] [address] [place] [address] Cristine Carpio MD [address] [place] [address] [facility] [place] [facility] Start: 02-16-2025 End: 02-16-2025 ambulatory 02/16/2025 10:30 AM EDT [facility] [address] [place] [address] Maxine Gu, PT [address] [place] [address] [facility] Start: 02-10-2025 End: 02-10-2025 ambulatory 02/10/2025 4:30 PM EDT [facility] [address] [place] [address] Kwan Verma, OTD, OTR/L, CHT [address] [place] [address] [facility] Start: 02-02-2025 Influenza vaccination Influenza Vaccine (#1) [facility] Start: 01-31-2025 End: 01-31-2025 ambulatory 01/31/2025 12:45 PM EDT [facility] [address] [place] [address] Maxine Gu, PT [address] [place] [address] [facility] Start: 01-14-2025 End: 01-14-2025 ambulatory 01/14/2025 12:15 PM EDT [facility] [address] [place] [address] Cornelia Garay, OT [address] [place] [address] [facility] Start: 01-12-2025 End: 01-12-2025 ambulatory [facility] Start: 01-10-2025 End: 01-10-2025 Professional / ancillary services management 01/10/2025 8:00 AM EDT Cardiology Ancillary [facility] Cardiology [address] [place] [address] [facility] Start: 01-05-2025 End: 01-05-2025 ambulatory [facility] Start: 01-03-2025 Influenza vaccination Influenza Vaccine (#1) [facility] Start: 12-29-2024 End: 12-29-2024 ambulatory 12/29/2024 1:30 PM EDT [facility] [address] [place] [address] Maxine Gu, PT [address] [place] [address] [facility] Start: 12-29-2024 End: 12-29-2024 Professional / ancillary services management 12/29/2024 1:00 PM EDT Ancillary Procedure [facility] [address] [place] [address] [facility] Start: 12-23-2024 End: 12-23-2024 Patient encounter procedure 12/23/2024 2:00 PM EDT Office Visit [facility] [address] [place] [address] Ignacio Bonilla MD [address] [place] [phone] Shruthi Sheffield MD [address] [place] [address] [facility] Start: 12-20-2024 End: 12-20-2024 ambulatory 12/20/2024 2:15 PM EDT [facility] [address] [place] [address] Maxine Gu, PT [address] [place] [address] [facility] Start: 12-15-2024 End: 12-15-2024 ambulatory 12/15/2024 12:45 PM EDT [facility] [address] [place] [address] Cathy Narayanan, OTR/L [address] [facility] [address] [place] [address] [facility] Start: 12-02-2024 End: 12-02-2024 ambulatory 12/02/2024 1:00 PM EDT [facility] [address] [place] [address] Kaleigh Frank, PT [address] [facility] [address] [place] [address] [facility] Start: 11-30-2024 End: 11-30-2025 DXA Skeletal system Views for bone density BD BONE DENSITY SURVEY + TIB FIB [place] ONLY Imaging Routine 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 PM[facility]R [address] [place] [address] Cristine Carpio MD [address] [facility] [place] [place] [address] [facility] Start: 11-26-2024 End: 11-26-2024 Patient encounter procedure 11/26/2024 2:30 PM EDT Procedure Visit [facility] [address] [place] [address] Neelima Rockwell DO [address] [place] [address] [facility] Start: 11-19-2024 End: 11-19-2024 Patient encounter procedure 11/19/2024 1:00 PM EDT Office Visit [facility] PM&R [address] [place] [address] Neelima Villarreal MD [address] [place] [phone] [facility] [place] [facility] Start: 10-27-2024 End: 10-27-2024 Patient encounter procedure 10/27/2024 3:30 PM EDT Office Visit [facility] PM&R [address] [place] [address] Neelima Villarreal MD [address] [place] [phone] [facility] PM[facility]R Start: 09-28-2024 End: 09-28-2024 ambulatory 09/28/2024 2:40 PM EDT [facility] Device [address] [place] [address] [facility] Start: 08-23-2024 End: 08-23-2024 Patient encounter procedure 08/23/2024 8:30 AM EDT Office Visit [facility] PM&R [address] [place] [address] [facility] Start: 08-20-2024 End: 08-20-2024 Patient encounter procedure 08/20/2024 2:00 PM EDT Office Visit [facility] Cardiology [address] [place] [address] Kathy Vicente APRN-FREDY [address] [place] [address] [facility] Start: 08-19-2024 End: 08-19-2024 Patient encounter procedure [facility] Start: 06-30-2024 End: 06-30-2024 Patient encounter procedure 06/30/2024 10:00 AM EST Office Visit [facility] Cardiology [address] [place] [address] Darnell Xiong MD [address] [place] [address] [facility] Cardiology Start: 06-23-2024 End: 06-23-2024 ambulatory 06/23/2024 2:00 PM EST [facility] Physical Therapy [address] [place] [address] Kaleigh Frank, PT [address] [facility] [place] [address] [facility] Start: 06-16-2024 End: 06-16-2024 Telemedicine consultation with patient 06/16/2024 3:00 PM EST Telemedicine [facility] Physical Therapy [address] [place] [address] Kaleigh Frank, PT [address] [facility] [place] [address] [facility] Start: 06-14-2024 End: 06-14-2024 Patient encounter procedure 06/14/2024 10:30 AM EST Office Visit [facility] [place] PM&R [address] [place] [address] [facility] [place] PM[facility]R Start: 06-02-2024 End: 06-02-2024 Patient encounter procedure 06/02/2024 3:00 PM EST Office Visit [facility] Urologic Surgery [address] [place] [address] Cristopher Walker MD [address] [place] [address] [facility] [place] [facility] Start: 05-26-2024 End: 05-26-2024 ambulatory 05/26/2024 12:45 PM EST [facility] [address] [place] [address] Maxine Gu, PT [address] [place] [address] [facility] Start: 05-24-2024 End: 05-24-2024 ambulatory [facility] Start: 05-20-2024 End: 05-20-2024 ambulatory [facility] Start: 05-17-2024 End: 05-17-2024 ambulatory [facility] Start: 05-13-2024 End: 05-13-2024 ambulatory [facility] Start: 05-11-2024 End: 05-11-2024 Telemedicine consultation with patient 05/11/2024 2:00 PM EST Telemedicine Physical Medicine and Rehabilitation [facility] [address] [facility] [address] [place] [phone] Siva Fiore MD [address] [facility] [address] [place] [phone] Physical Medicine and Rehabilitation [facility] Start: 05-10-2024 End: 05-10-2024 ambulatory [facility] Start: 05-07-2024 End: 05-07-2024 ambulatory [facility] Start: 05-04-2024 End: 05-04-2024 ambulatory [facility] Start: 04-29-2024 End: 04-29-2024 ambulatory [facility] Start: 04-26-2024 End: 04-26-2024 ambulatory 04/26/2024 3:45 PM EST [facility] [address] [place] [address] Silvestre Torres, PT [facility] Start: 04-26-2024 End: 04-26-2024 ambulatory 04/26/2024 1:30 PM EST [facility] [address] [place] [address] Cathy Narayanan, OTR/L [address] [facility] [address] [place] [address] [facility] Start: 04-22-2024 End: 04-22-2024 ambulatory 04/22/2024 9:45 AM EST [facility] Physical [facility] [address] [place] [address] Silvestre Torres, ERIN [facility] Start: 04-22-2024 End: 04-22-2024 ambulatory 04/22/2024 8:15 AM EST [facility] [address] [place] [address] Cathy Narayanan, OTR/L [address] [facility] [address] [place] [address] [facility] Start: 04-16-2024 End: 04-16-2024 Patient encounter procedure 04/16/2024 11:00 AM EST Office Visit [facility] [address] [place] [address] Eduardo Loya MD [address] [place] [address] [facility] Start: 04-15-2024 End: 04-15-2024 Patient encounter procedure 04/15/2024 10:20 AM EST Office Visit [facility] Infectious [facility] [address] [place], [place] [id number] Brynn Mccarty MD [address] [address] [facility] Start: 04-09-2024 End: 04-09-2025 US Kidney - bilateral and Urinary bladder US KIDNEY+BLADDER Imaging Routine Neurogenic bladder Expected: 04/09/2024, Expires: 04/09/2025 [facility] Work Phone: Comment on above: Expected: 04/09/2024, Expires: Start: 01-04-2024 COVID-19 Vaccine ( season) COVID-19 Vaccine ( season) [facility] Start: 01-04-2024 Influenza vaccination Influenza Vaccine (#1) [facility] Start: 2023 Screening for malignant neoplasm of colon [facility] Start: 08-22-2020 Tetanus vaccination [facility] Start: 2018 Lipid panel LIPID SCREENING [facility] Start: 2013 Lipid panel Cholesterol [facility] Start: [...] Health Questionnaire 9) score Depression Screening/Follow-Up (PHQ-2/9) [facility] Start: 1983 COVID-19 Vaccine (#1) COVID-19 Vaccine (#1) [facility] Start: 1981 History and physical examination, annual for health maintenance Wellness Visit [facility] Start: 1978 Hepatitis C screening HEPATITIS C VIRUS SCREENING [facility] Start: 1978 Prostate specific antigen measurement PSA Level [facility] Start: 1978 Screening for malignant neoplasm of colon [facility] Bacteria identified in Urine by Culture URINE CULTURE Microbiology Routine Cloudy urine 04/09/2024 5:07 PM EST [facility] Immunoassay analyte quant radioimmunoassay PROCOLLAGEN N1 TP Anatomic Pathology After office visit 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 11/30/2024 12:20 PM EDT [facility] End: 03-31-2025 MR Shoulder - right WO contrast MR Shoulder Right Without Contrast Imaging STAT Acute pain of right shoulder Tear of right supraspinatus tendon 1 Occurrences starting 03/31/2024 until 03/31/2025 [facility] Work Phone: Comment on above: 1 Occurrences starting 03/31/2024 until 03/31/2025 [facility] Work Phone: Payers Date Payer Category [facility]ayer [facility] [id number] 11-02-2024 Specific state progr [facility] (list/ local code) [employer] [id number] 11-02-2024 Unknown [id number] 09-02-2024 Medicaid (Managed Care) 1.2. [id number] 03-26-2024 Self-pay [id number] 02-03-2024 Medicaid [id number] .[id number] 02-03-2024 Medicaid [id number] 12-29-2023 Auto Insurance [employer] CIDENT [id number]. [id number] 12-29-2023 Unknown [id number] 12-29-2023 Unknown [id number] 05-05-2023 Commercial Managed C are - HMO [id number] 05-05-2023 Managed Care (unspecified) [employer] HMO/NTWK/OACCESS/OA+/POS [id number]. [id number] 05-05-2023 Private Health Insurance CIGTRINY PAEZ [id number] 05/05/2023-Present [address] [place] [address] 1.2.840.388614.1.13.172.2. [id number] 05-05-2023 Private Health Insurance [id number] 07-04-2011 Private Health Insurance [id number] 1978 Unknown [id number] 2.16.840.1.653803.3.579.2. 594 1978 Unknown [id number] 2.16.840.1.951052.3.579.2. 900 1978 Unknown [id number] 2.16.840.1.008028.3.579.2. 903 1978 Unknown [id number] 2.16.840.1.566599.3.579.2. 903 1978 Unknown [id number] 2.16.840.1.460568.3.579.2. 903 1978 Unknown [id number] 2.16.840.1.458364.3.579.2. 903 1978 Unknown [id number] 2.16.840.1.511628.3.579.2. 903 1978 Unknown [id number] 2.16.840.1.883879.3.579.2. 903 1978 Unknown [id number] 2.16.840.1.705533.3.579.2. 903 1978 Unknown [id number] 2.16.840.1.943317.3.579.2. 903 1978 Unknown [id number] 2.16.840.1.205772.3.579.2. 732 1978 Unknown [id number] 2.16.840.1.799358.3.579.2. 732 1978 Unknown [id number] 2.16.840.1.919066.3.579.2. 732 1978 Unknown [id number] 2.16.840.1.821089.3.579.2. 732 1978 Unknown [id number] 2.16.840.1.121825.3.579.2. 732 1978 Unknown [id number] 2.16.840.1.913949.3.579.2. 73 1978 Unknown [id number] 2.16.840.1.662231.3.579.2. 1978 Unknown [id number] 2.16.840.1.301588.3.579.2 73 1978 Unknown [id number] 2.16.840.1.155594.3.579.2 1978 Unknown [id number] 2.16.840.1.102839.3.579.2 1978 Unknown [id number] 2.840.1.107148.3.579.2 1978 Unknown [id number] 2.16.840.1.122668.3.579.2 1978 Unknown [id number] 2.16.840.1.935730.3.579.2 1978 Unknown [id number]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 Per [...] fractures. Underwent the follow surgical interventions @ [facility]: Date Operation/Procedure Provider Name 12/29/[address] [...] vancomycin for treatment. Maida was admitted to [facility] in stable condition. He underwent inpatient rehabilitation at [facility] from February 18, 2024 through March [...] fine. He will follow-up with his local dramatic art teacher. He did have some desaturation on overnight oxygen testing back in late February and although improved we still provided oxygen at home during sleep to wean as able. Follow up appointments were made Precautions: Per verbal order from MD- Jaclyn elbow brace to increase elbow extension- may be candidate for biceps to triceps transfer if ROM can be improved to functional level. Payor: [facility] / Plan: [employer] HMO / Product [...] elbow in flexed position. MMT/SMMT assessment from [facility] 12/23/24: Range of motion over time: AROM (PROM noted in parenthesis) All measurements documented in degrees. If not noted, joint range of motion within functional limits Date: 02/10/25 Arm: R Elbow Extension (-60) Flexion Full Forearm Supination Pronation Wrist Extension Flexion Ulnar Dev. Radial Dev. Sensation: needs further assessment Treatment Today: See Home Exercise Program Home Exercise Program (HEP): Patient fitted for prefabricated [place] elbow brace. Wear throughout day, wear at night if tolerated with arm placed in maximal elbow extension stretch. Caregiver to assist with donning/doffing and setting extension. PROM elbow extension Orthosis: Date: 02/10/25 - Issued R [place] elbow brace Purpose of orthosis: improve elbow [...] by Procedure: Orthotic/prosthetic/prefab Orthotic Management/Training (15 min) [73430]: 15 Total Timed Code Treatment Minutes: 15 minutes Un-Timed Code Treatments by Procedure: OT EVAL MOD COMPLEX 45 MIN: 17 Elbow Brace through DME Total Un-Timed Code Treatment Minutes: 17 minutes Kwan Verma, OTD, OTR/L, CHT [1] No past medical history on file. documented in this encounter [facility] 02-10-2025 Note OCCUPATIONAL THERAPY HAND CLINIC EVALUATION Visit #: 1 Referred to Occupational Therapy for evaluation and treatment. Referring Provider: Cristine Carpio MD Diagnosis: C4 MOIZ A DOI/Mechanism: 12/29/23- [facility] HPI: per chart review; Maida Polanco is a 43 y.o. 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 Per [...] fractures. Underwent the follow surgical interventions @ [facility]: Date Operation/Procedure Provider Name 12/29/2023 ABIGAIL Mcpherson [...] PA-C 02/16/24 Tracheostomy and PEG tube removal [place] Patient had a complicated hospital course but [...] vancomycin for treatment. Maida was admitted to [facility] in stable condition. He underwent inpatient rehabilitation at [facility] from February 18, 2024 through March [...] fine. He will follow-up with his local dramatic art teacher. He did have some desaturation on overnight oxygen testing back in late February and although improved we still provided oxygen at home during sleep to wean as able. Follow up appointments were made Precautions: Per verbal order from MD- Jaclyn elbow brace to increase elbow extension- may be candidate for biceps to triceps transfer if ROM can be improved to functional level. Payor: [facility] / Plan: [employer] HMO / Product [...] Patient repo (more content not included)... [employer] 02-08-2025 Note Specialty Pharmacy I nvestigation Note: Appt: 03/09/25 Referral: [id number] Medication: Dysport 1500 units q3mo Provider: Neelima [...] filling pharmacy. Updates will be made within [employer]'s [employer] Program. Guevara Arias PharmD [employer] [facility] 02-08-2025 History of Present illness Narrative Specialty Pharmacy Investigation Note: Appt: 03/09/25 Referral: [id number] Medication: Dysport 1500 units q3mo Provider: Neelima [...] filling pharmacy. Updates will be made within [employer]'s [employer] Program. Guevara Arias PharmD documented in this encounter [facility] 01-31-2025 History of Present illness Narrative PHYSICAL THERAPY OUTPATIENT NEUROLOGICAL NOTE Visit Number: 2 (previous bout 4) Referring Provider: Cristine Carpio MD Previous referral: Neelima Rockwell MD Diagnosis: Tetraplegia ([facility]) [G82.50] Previous diagnosis: Injury of cervical spinal cord, initial encounter ([facility]) [S14.109A] C4 complete (per notes) Onset Date: 2023 Mindi Hanson Chemical Dependency Professional: [email or web address] [phone] Precautions: micro-pacer (no stim above waist) Authorized visits: 14 Identification was verified by patient verbalizing his name and date of . Interpretor: non required Joey = Son = Kendall Payor: [employer] / Plan: [place] / Product Type: Medicaid HMO Identification was verified by patient verbalizing his name and date of . SUBJECTIVE: Presents with fwxdhy-ku-wme driving his PWC. [employer] vendor Eleazar is present with [employer] and [employer] Vendor for head array trials. 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 Falls: none Behavior: Appearance: WNL Alertness: WNL [...] from positioning Discussed PRAFO boots - contacting [facility] family caseworker for adjustments / new ones due to [...] array Vendor: Tom Block, OT, ATP, [facility] [phone] Age of equipment: 2026 Cushion Make: MICHAELLE Age of equipment: 2026 Other: power-lift / emma-lift, hospital bed ([facility]) ordered a bed extension (denied by insurance), roll-in shower chair, [facility] order placed for [employer] + [...] increase in muscle tone, manifested as a sxgdz-nut-fkzechr or by minimal resistance at the end [...] work, etc TRIALS: Head array from initial [facility] / [facility] [employer] vendor was trialed at home with vendor/tech and this was not appropriate and was a FAILED trial Complexity of head array, amplitude of motion required, dual directions of motion and maintained pressure required and amount of pressure required Head array trialed today in clinic with DREA Zamorano [employer] Vendor Eleazar [employer] Cate and secondary I-mobility Secondary head array [...] at next visit Scheduled with OT at [facility] for RUE bracing options HOME EXERCISE PROGRAM: Access Code: [email or web address] URL: [email or web address] Date: 04/26/2024 Prepared by: Maxine Gu Exercises [...] 30-60 seconds hold Access Code: [email or web address] URL: [email or web address] Date: 05/26/2024 Prepared by: Maxine Gu Exercises [...] for independent dirinvg. 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 CARE: Alf Goals (8-10 Visits) Pain - Patient will [...] Neurological Physical Therapist documented in this encounter [facility] 01-31-2025 History of Present illness Narrative PHYSICAL THERAPY OUTPATIENT NEUROLOGICAL NOTE Visit Number: 2 (previous bout 4) Referring Provider: Cristine Carpio MD Previous referral: Neelima Rockwell MD Diagnosis: Tetraplegia (HCC) [G82.50] Previous diagnosis: Injury of cervical spinal cord, initial encounter ([facility]) [S14.109A] C4 complete (per notes) Onset Date: 2023 Mindi Hanson Chemical Dependency Professional: [email or web address] [phone] Precautions: micro-pacer (no stim above waist) Authorized visits: 14 Identification was verified by patient verbalizing his name and date of . Interpretor: non required Joey = Son = Kendall Payor: [employer] / Plan: [employer] [place] H[place] / Product Type: Medicaid HMO Identification was verified by patient verbalizing his name and date of . SUBJECTIVE: Presents with ahzneq-lr-kxk driving his PWC. [employer] vendor Eleazar is present with [employer] and [employer] Vendor for head array trials. 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 Falls: none Behavior: Appearance: WNL Alertness: WNL [...] from positioning Discussed PRAFO boots - contacting [facility] family caseworker for adjustments / new ones due to [...] array Vendor: Tom Block, OT, [employer], [facility] [phone] Age of equipment: [birth year]22 Cushion Make: MICHAELLE Age of equipment: [birth year]22 Other: power-lift / emma-lift, hospital bed ([facility]) ordered a bed extension (denied by insurance), roll-in shower chair, [facility] ([facility]) order placed for PAULETTE [...] increase in muscle tone, manifested as a mnsyl-yxa-cgjrdrc or by minimal resistance at the end [...] work, etc TRIALS: Head array from initial [facility] / [employer] [employer] vendor was trialed at home with vendor/tech and this was not appropriate and was a FAILED trial This was also trialed in clinic with vendor and PT and was a FAILED trial Complexity of head array, amplitude of motion required, dual directions of motion and maintained pressure required and amount of pressure required Head array trialed today in clinic with DREA Zamorano [employer] Vendor Eleazar [employer] Cate and secondary I-mobility Secondary head array [...] at next visit REQUIRED: Shower Chair: ITEM: [employer]CRMEN-AT Attendant Tilt Mobile Shower Commode Chair 16 [...] to this note Scheduled with OT at [facility] for RUE bracing options OT from [facility] to schedule with patient HOME EXERCISE PROGRAM: Access Code: [email or web address] URL: [email or web address] Date: 04/26/2024 Prepared by: Maxine Gu Exercises [...] 30-60 seconds hold Access Code: [email or web address] URL: [email or web address] Date: 05/26/2024 Prepared by: Maxine Gu Exercises [...] for independent dirinvg. 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 CARE: Distance Education Teacher Goals (8-10 Visits) Pain - Patient will [...] Neurological Physical Therapist documented in this encounter [facility] 01-31-2025 History of Present illness Narrative PHYSICAL THERAPY OUTPATIENT NEUROLOGICAL NOTE Visit Number: 2 (previous bout 4) Referring Provider: Cristine Carpio MD Previous referral: Neelima Rockwell MD Diagnosis: Tetraplegia ([facility]) [G82.50] Previous diagnosis: Injury of cervical spinal cord, initial encounter ([facility]) [S14.109A] C4 complete (per notes) Onset Date: 2023 Mindi Hanson Chemical Dependency Professional: [email or web address] [phone] Precautions: micro-pacer (no stim above waist) Authorized visits: 14 Identification was verified by patient verbalizing his name and date of . Interpretor: non required Joey = Son = Kendall Payor: [employer] / Plan: [employer] HMO / Product Type: Medicaid HMO Identification was verified by patient verbalizing his name and date of . SUBJECTIVE: Presents with ccmkqg-cb-sil driving his PWC. [employer] vendor Eleazar is present with [employer] and [employer] Vendor for head array trials. 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 Falls: none Behavior: Appearance: WNL Alertness: WNL [...] from positioning Discussed PRAFO boots - contacting [facility] family caseworker for adjustments / new ones due to [...] array Vendor: Tom Block, OT, ATP, [facility] [phone] Age of equipment: 2024 Cushion Make: MICHAELLE Age of equipment: [birth year]24 Other: power-lift / emma-lift, hospital bed ([facility]) ordered a bed extension (denied by insurance), roll-in shower chair, PW ([facility]) order placed for [employer] + [...] increase in muscle tone, manifested as a fignt-glu-luzqxzj or by minimal resistance at the end [...] work, etc TRIALS: Head array from initial [facility] / [employer]ine [employer] vendor was trialed at home with vendor/tech and this was not appropriate and was a FAILED trial This was also trialed in clinic with vendor and PT and was a FAILED trial Complexity of head array, amplitude of motion required, dual directions of motion and maintained pressure required and amount of pressure required Head array trialed today in clinic with DREA Zamorano [employer] Vendor Eleazar [employer] Cate and secondary I-mobility Secondary head array [...] to this note Scheduled with OT at [facility] for RUE bracing options OT from [facility] to schedule with patient HOME EXERCISE PROGRAM: Access Code: [email or web address] URL: [email or web address] Date: 04/26/2024 Prepared by: Maxine Gu Exercises [...] 30-60 seconds hold Access Code: VZWADBKP URL: [email or web address] Date: 05/26/2024 Prepared by: Maxine Gu Exercises [...] for independent dirinvg. 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 CARE: Distance Education Teacher Goals (8-10 Visits) Pain - Patient will [...] Neurological Physical Therapist documented in this encounter [facility] 01-26-2025 Progress note Note Date/Time January 26, 2025 11:56am [facility] [address] [place] [address] Progress Note - Wound Care 01/26/25 1148 MR#: [id number] Acct: [id number] Name: MAIDA POLANCO Rep #:[id number] : 1980 44 From: Les SORIANO PCP: [...] Date Recorded By Document 01/05/25 13:25 KW [id number] 01/05/25 13:34 KW Document 01/12/25 11:35 DL [id number] 01/12/25 11:45 DL Document 01/19/25 11:05 CP [id number] 01/19/25 11:12 CP Document 01/26/25 10:04 GM [id number] 01/26/25 10:22 GM 01/05/25 01/12/25 01/19/25 13:25 11:35 11:05 WC - Today's Visit Information Type of service Follow-up Visit Follow-up Visit Follow-up Visit (Physician/CREDIT CARD ASSOCIATE (Physician/CREDIT CARD ASSOCIATE (Physician/CREDIT CARD ASSOCIATE ) ) ) Arrival Mode Wheelchair Wheelchair [...] Visit Information Type of service Follow-up Visit (Physician/CREDIT CARD ASSOCIATE ) Arrival Mode Wheelchair Transfer Assistance None [...] Date Recorded By Document 01/05/25 13:25 KW [id number] 01/05/25 13:34 KW Document 01/12/25 11:35 DL [id number] 01/12/25 11:45 DL Document 01/19/25 11:05 CP [id number] 01/19/25 11:12 CP Document 01/26/25 10:04 GM [id number] 01/26/25 10:22 GM 01/05/25 01/12/25 01/19/25 13:25 [...] Attached -Granulation Amt Large (67-100%) -Granulation Quality [place] -Slough/Fibrin No -Necrosis Amt -Necrotic Tissue Type [...] Recorded Date Recorded By Document 01/05/25 13:54 [id number] 01/05/25 13:56 Document 01/12/25 12:05 [id number] 01/12/25 12:11 Document 01/19/25 11:36 [id number] 01/19/25 11:39 Document 01/26/25 10:16 [id number] 01/26/25 10:17 01/05/25 01/12/25 01/19/25 13:54 12:05 [...] Date 07/03/29 09/02/29 09/02/29 -Product Lot Number [id number] [id number] 004 007 -Percent Used 100 100 100 -Lot number of Saline Used [id number] -Bleeding Controlled with Pressure Pressure Pressure -Treatment [...] Disc -Expiration Date 09/02/29 -Product Lot Number [id number] -Percent Used 100 -Lot number of Saline Used [id number] -Bleeding Controlled with Pressure -Treatment Response Procedure [...] Recorded Date Recorded By Document 01/05/25 14:11 [facility] [id number] 01/05/25 14:11 [facility] Document 01/12/25 12:26 [id number] 01/12/25 12:26 Document 01/19/25 11:45 [id number] 01/19/25 11:48 GM Document 01/26/25 10:17 [id number] 01/26/25 10:18 01/05/25 01/12/25 01/19/25 14:11 12:26 [...] Cosigner Signature (if applicable): CC: ~ Signed [facility] Work Phone: 1(719) 421-589509-24-2025 Progress note [facility] [address] [place] [address] Progress Note - Wound Care 01/26/25 1148 MR#: [id number] Acct: [id number] Name: MAIDA POLANCO Rep #:[id number] : 1980 44 From: Les SORIANO PCP: [...] Date Recorded By Document 01/05/25 13:25 KW [id number] 01/05/25 13:34 KW Document 01/12/25 11:35 DL [id number] 01/12/25 11:45 DL Document 01/19/25 11:05 CP [id number] 01/19/25 11:12 CP Document 01/26/25 10:04 GM [id number] 01/26/25 10:22 GM 01/05/25 01/12/25 01/19/25 13:25 11:35 11:05 WC - Today's Visit Information Type of service Follow-up Visit Follow-up Visit Follow-up Visit (Physician/CREDIT CARD ASSOCIATE (Physician/CREDIT CARD ASSOCIATE (Physician/CREDIT CARD ASSOCIATE ) ) ) Arrival Mode Wheelchair Wheelchair [...] Visit Information Type of service Follow-up Visit (Physician/CREDIT CARD ASSOCIATE ) Arrival Mode Wheelchair Transfer Assistance None [...] Date Recorded By Document 01/05/25 13:25 KW [id number] 01/05/25 13:34 KW Document 01/12/25 11:35 DL [id number] 01/12/25 11:45 DL Document 01/19/25 11:05 CP [id number] 01/19/25 11:12 CP Document 01/26/25 10:04 GM [id number] 01/26/25 10:22 GM 01/05/25 01/12/25 01/19/25 13:25 [...] Attached -Granulation Amt Large (67-100%) -Granulation Quality [place] -Slough/Fibrin No -Necrosis Amt -Necrotic Tissue Type [...] Recorded Date Recorded By Document 01/05/25 13:54 [id number] 01/05/25 13:56 Document 01/12/25 12:05 [id number] 01/12/25 12:11 Document 01/19/25 11:36 [id number] 01/19/25 11:39 Document 01/26/25 10:16 [id number] 01/26/25 10:17 01/05/25 01/12/25 01/19/25 13:54 12:05 [...] Date 07/03/29 09/02/29 09/02/29 -Product Lot Number [id number] 014 004 007 -Percent Used 100 100 100 -Lot number of Saline Used [id number] -Bleeding Controlled with Pressure Pressure Pressure -Treatment [...] Disc -Expiration Date 09/02/29 -Product Lot Number [id number] -Percent Used 100 -Lot number of Saline Used [id number] -Bleeding Controlled with Pressure -Treatment Response Procedure [...] Recorded Date Recorded By Document 01/05/25 14:11 [facility] [id number] 01/05/25 14:11 [facility] Document 01/12/25 12:26 [id number] 01/12/25 12:26 Document 01/19/25 11:45 [id number] 01/19/25 11:48 GM Document 01/26/25 10:17 [id number] 01/26/25 10:18 01/05/25 01/12/25 01/19/25 14:11 12:26 [...] Cosigner Signature (if applicable): CC: ~ Signed [facility]09-18-2025 History of Present illness Narrative* Filomena Belle - 01/20/2025 1:06 PM EDT See attatched Device report for 01.12.25 documented in this [id number] Progress note Author Les Shaikh [facility] Note Date/Time January 19, 2025 12:57pm [facility] [address] [place] [address] Progress Note - Wound Care 01/19/25 1256 MR#: [id number] Acct: [id number] Name: MAIDA POLANCO Rep #:[id number] : 1980 44 From: Les Richardson PM [...] Date Recorded By Document 01/05/25 13:25 KW [id number] 01/05/25 13:34 KW Document 01/12/25 11:35 DL HL3540 01/12/25 11:45 DL Document 01/19/25 11:05 CP PF4498 01/19/25 11:12 CP 01/05/25 01/12/25 01/19/25 13:25 11:35 11:05 - Today's Visit Information Type of service Follow-up Visit Follow-up Visit Follow-up Visit (Physician/CREDIT CARD ASSOCIATE (Physician/CREDIT CARD ASSOCIATE (Physician/CREDIT CARD ASSOCIATE ) ) ) Arrival Mode Wheelchair Wheelchair [...] Date Recorded By Document 01/05/25 13:25 KW [id number] 01/05/25 13:34 KW Document 01/12/25 11:35 DL [id number] 01/12/25 11:45 DL Document 01/19/25 11:05 CP OZ7063 01/19/25 11:12 CP 01/05/25 01/12/25 01/19/25 13:25 [...] Recorded Date Recorded By Document 01/05/25 13:54 [id number] 01/05/25 13:56 Document 01/12/25 12:05 IM6579 01/12/25 12:11 Document 01/19/25 11:36 YQ7027 01/19/25 11:39 01/05/25 01/12/25 01/19/25 13:54 12:05 [...] Date 07/03/29 09/02/29 09/02/29 -Product Lot Number [id number] 014 004 007 -Percent Used 100 100 100 -Lot number of Saline Used [id number] -Bleeding Controlled with Pressure Pressure Pressure -Treatment [...] Recorded Date Recorded By Document 01/05/25 14:11 [facility] LV4057 01/05/25 14:11 [facility] Document 01/12/25 12:26 VI0432 01/12/25 12:26 Document 01/19/25 11:45 PL2430 01/19/25 11:48 0901/12/25 01/19/25 14:11 12:26 11:45 [...] Cosigner Signature (if applicable): CC: ~ Signed [facility] Work Phone: 1(971) 446-588509-17-2025 Progress note [facility] [address] [place] [address] Progress Note - Wound Care 01/19/25 1256 MR#: [id number] Acct: [id number] Name: MAIDA POLANCO Rep #:[id number] : 1980 44 From: Les SORIANO PCP: [...] Date Recorded By Document 01/05/25 13:25 KW KL2529 01/05/25 13:34 KW Document 01/12/25 11:35 DL IN0112 01/12/25 11:45 DL Document 01/19/25 11:05 CP XX0914 01/19/25 11:12 CP 01/05/25 01/12/25 01/19/25 13:25 11:35 11:05 - Today's Visit Information Type of service Follow-up Visit Follow-up Visit Follow-up Visit (Physician/CREDIT CARD ASSOCIATE (Physician/CREDIT CARD ASSOCIATE (Physician/CREDIT CARD ASSOCIATE ) ) ) Arrival Mode Wheelchair Wheelchair [...] Date Recorded By Document 01/05/25 13:25 KW [id number] 01/05/25 13:34 KW Document 01/12/25 11:35 DL [id number] 01/12/25 11:45 DL Document 01/19/25 11:05 CP EN7929 01/19/25 11:12 CP 01/05/25 01/12/25 01/19/25 13:25 [...] Recorded Date Recorded By Document 01/05/25 13:54 PB2924 01/05/25 13:56 Document 01/12/25 12:05 [id number] 01/12/25 12:11 Document 01/19/25 11:36 PK1043 01/19/25 11:39 09/03/25 09/10/25 09/17/25 13:54 12:05 [...] Date 07/03/29 09/02/29 09/02/29 -Product Lot Number [id number] 014 004 007 -Percent Used 100 100 100 -Lot number of Saline Used [id number] -Bleeding Controlled with Pressure Pressure Pressure -Treatment [...] Recorded Date Recorded By Document 01/05/25 14:11 [facility] MD0665 01/05/25 14:11 [facility] Document 01/12/25 12:26 QT1212 01/12/25 12:26 Document 01/19/25 11:45 JJ1177 01/19/25 11:48 01/05/25 01/12/25 01/19/25 14:11 12:26 [...] Cosigner Signature (if applicable): CC: ~ Signed [facility]09-10-2025 Progress note Author Les Shaikh [facility] Note Date/Time January 12, 2025 12:37pm [facility] [address] [place] [address] Progress Note - Wound Care 01/12/25 1235 MR#: [id number] Acct: [id number] Name: MAIDA POLANCO Rep #:[id number] : 1980 44 From: Les Richardson PM PCP: Dr. Markel Bell MD [facility] Location: History of Present Illness Date of [...] Date Recorded By Document 01/05/25 13:25 KW LS0593 01/05/25 13:34 KW Document 01/12/25 11:35 DL [id number] 01/12/25 11:45 DL 01/05/25 01/12/25 13:25 11:35 WC - Today's Visit Information Type of service Follow-up Visit Follow-up Visit (Physician/CREDIT CARD ASSOCIATE (Physician/CREDIT CARD ASSOCIATE ) ) Arrival Mode Wheelchair Wheelchair Transfer [...] Date Recorded By Document 01/05/25 13:25 KW XQ6225 01/05/25 13:34 KW Document 01/12/25 11:35 DL RW0425 01/12/25 11:45 DL 01/05/25 01/12/25 13:25 11:35 [...] Date Recorded By Document 01/05/25 13:54 JF RN6125 01/05/25 13:56 Document 01/12/25 12:05 OA0920 01/12/25 12:11 01/05/25 01/12/25 13:54 12:05 Wound [...] -Expiration Date 07/03/29 09/02/29 -Product Lot Number [id number] 014 004 -Percent Used 100 100 -Lot number of Saline Used [id number] -Bleeding Controlled with Pressure Pressure -Treatment Response [...] Recorded Date Recorded By Document 01/05/25 14:11 [facility] DT1011 01/05/25 14:11 [facility] Document 01/12/25 12:26 AC6632 01/12/25 12:26 01/05/25 01/12/25 14:11 12:26 Wound [...] Cosigner Signature (if applicable): CC: ~ Signed [facility] Work Phone: 1(684) 434-442409-10-2025 Progress note [facility] [address] [place] [address] Progress Note - Wound Care 01/12/25 1235 MR#: [id number] Acct: [id number] Name: MAIDA POLANCO Rep #: : 1980 44 From: Les [...] Date Recorded By Document 01/05/25 13:25 KW GR2745 01/05/25 13:34 KW Document 01/12/25 11:35 DL QK1603 01/12/25 11:45 DL 01/05/25 01/12/25 13:25 11:35 - Today's Visit Information Type of service Follow-up Visit Follow-up Visit (Physician/CREDIT CARD ASSOCIATE (Physician/CREDIT CARD ASSOCIATE ) ) Arrival Mode Wheelchair Wheelchair Transfer [...] Date Recorded By Document 01/05/25 13:25 KW GJ0935 01/05/25 13:34 KW Document 01/12/25 11:35 DL OY0669 01/12/25 11:45 DL 01/05/25 01/12/25 13:25 11:35 [...] Recorded Date Recorded By Document 01/05/25 13:54 IW4582 01/05/25 13:56 Document 01/12/25 12:05 DARIN GK3623 01/12/25 12:11 01/05/25 01/12/25 13:54 12:05 Wound [...] -Expiration Date 07/03/29 09/02/29 -Product Lot Number [id number] 014 004 -Percent Used 100 100 -Lot number of Saline Used [id number] -Bleeding Controlled with Pressure Pressure -Treatment Response [...] Recorded Date Recorded By Document 01/05/25 14:11 [facility] NL5132 01/05/25 14:11 [facility] Document 01/12/25 12:26 GN9820 01/12/25 12:26 01/05/25 01/12/25 14:11 12:26 Wound [...] Cosigner Signature (if applicable): CC: ~ Signed [facility]09-08-2025 History of Present illness Narrative* Alyssa Petit [...] AV2 implanted 01-13-[address] Aldana at [facility]. Indication: implanted for sinus node dysfunction. BATTERY VOLTAGE: 3.12 Volts, >10 years LEAD IMPEDANCE: Ventricle: 590 Ohms PACING THRESHOLD: Ventricle: 0.63v @ 0.24ms SENSING THRESHOLD: R-Wave: 15 mV INTRINSIC RHYTHM: NSR PERCENT PACING: AM-Vs 0%, VS only 95.8%, AM-CRIME INVESTIGATOR SPECIAL AGENT 0%, V-pac only 4.2% COMMENTS: Device check to establish care. Battery and leadless parameters are stable. NANDO test completed. No changes made. Remotes requested to be transferred. Next Remote Device Check: 3 months x 3 Next In Clinic Device Check: 1 year or sooner as needed. documented in this [id number] Progress note Author Les Shaikh [facility] Note Date/Time January 05, 2025 2:42pm [facility] [place] [address] Progress Note - Wound Care 01/05/25 1440 MR#: [id number] Acct: [id number] Name: MAIDA POLANCO Rep #:[id number] : 1980 44 From: Les Richardson PM [...] Date Recorded By Document 01/05/25 13:25 ANTOINE [id number] 01/05/25 13:34 01/05/25 13:25 WC - Today's Visit Information Type of service Follow-up Visit (Physician/CREDIT CARD ASSOCIATE ) Arrival Mode Wheelchair Accompanied by Patient [...] Date Recorded By Document 01/05/25 13:25 KW [id number] 01/05/25 13:34 KW 01/05/25 13:25 Wound Center [...] Eschar -Texture (Livier-wound Skin Appearance) Assessed -Moisture (Lviier-wound Skin Appearance) Assessed -Color (Livier-wound Skin Appearance) [...] Date Recorded By Document 01/05/25 13:54 DARIN CE0930 01/05/25 13:56 JF 01/05/25 13:54 Wound Center [...] Epicord -Expiration Date 07/03/29 -Product Lot Number [id number] -Percent Used 100 -Lot number of Saline Used [id number] -Bleeding Controlled with Pressure -Treatment Response Procedure [...] Recorded Date Recorded By Document 01/05/25 14:11 [facility] JQ9898 01/05/25 14:11 [facility] 01/05/25 14:11 Wound Care Center Nurse 3 [...] Cosigner Signature (if applicable): CC: ~ Signed [facility] Work Phone: 1(824) 370-756609-03-2025 Progress note [facility] [address] [place] [address] Progress Note - Wound Care 01/05/25 1440 MR#: [id number] Acct: [id number] Name: MAIDA POLANCO Rep #:[id number] : 1980 [...] Recorded Date Recorded By Document 01/05/25 13:25 CU9890 01/05/25 13:34 01/05/25 13:25 - Today's Visit Information Type of service Follow-up Visit (Physician/CREDIT CARD ASSOCIATE ) Arrival Mode Wheelchair Accompanied by Patient [...] Date Recorded By Document 01/05/25 13:25 ANTOINE [id number] 01/05/25 13:34 KW 01/05/25 13:25 Wound Center [...] Date Recorded By Document 01/05/25 13:54 DARIN RR7365 01/05/25 13:56 JF 01/05/25 13:54 Wound Center [...] Epicord -Expiration Date 07/03/29 -Product Lot Number [id number] -Percent Used 100 -Lot number of Saline Used [id number] -Bleeding Controlled with Pressure -Treatment Response Procedure [...] Recorded Date Recorded By Document 01/05/25 14:11 [facility] [id number] 01/05/25 14:11 [facility] 01/05/25 14:11 Wound Care Center Nurse 3 [...] Cosigner Signature (if applicable): CC: ~ Signed [facility]08-27-2025 History of Present illness Narrative* Noy Bui, PT - 12/29/2024 2:16 PM EDT opened in error Noy Bui PT * Maxine Gu, PT - 12/29/2024 1:30 PM EDT PHYSICAL THERAPY OUTPATIENT NEUROLOGICAL RE-EVALUATION NOTE Visit Number: 1 (previous bout 4) Referring Provider: Cristine Carpio MD Previous referral: Neelima Rockwell MD Diagnosis: Tetraplegia ([facility]) [G82.50] Previous diagnosis: Injury of cervical spinal cord, 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 Falls: none Behavior: Appearance: WNL Alertness: WNL [...] from positioning Discussed PRAFO boots - contacting [facility] family caseworker for adjustments / new ones due to [...] array Vendor: Tom Block, OT, [employer], [facility] [phone] Age of equipment: [age] Cushion Make: MICHAELLE Age of equipment: [birth year]22 Other: power-lift / emma-lift, [facility] bed ([facility]) ordered a bed extension (denied by insurance), roll-in shower chair, [facility] order placed for [employer] + [...] increase in muscle tone, manifested as a jufnt-sov-vydlwjr or by minimal resistance at the end [...] HOME EXERCISE PROGRAM: Access Code: VZWADBKP URL: [email or web address] Date: 04/26/2024 Prepared by: Maxine Gu Exercises [...] 30-60 seconds hold Access Code: VZWADBKP URL: [email or web address] Date: 05/26/2024 Prepared by: Maxine Gu Exercises [...] driving. Patient trialed ordered head array with [employer] Staff and this did not go well, head array is sittingat home and not able to be used. I will reach out to [employer] videotape sales representative in [facility] to discuss options and will set up a clinic appointment with patient, PT and [employer] vendor/videotape sales representative to assist. Patient to continue HEP daily with family and aide. UE to be addressed by [facility] clinic. LE no needs. WC to be addressed by this business writer. Problems: impairments of complete SCI injury including [...] head array and PWC driving options with [employer], positioning in PWC, equipment needs; helping to acquire all necessary appointments Prognosis for therapy: Fair for goals - complexity of case, level of injury, family support PLAN OF CARE: Distance Education Teacher Goals (8-10 Visits) Pain - Patient will [...] Outpatient Neurological Physical Therapist documented in this [id number] NotePHYSICAL THERAPY OUTPATIENT NEUROLOGICAL RE-EVALUATION NOTE Visit Number: 1 (previous bout 4) Referring Provider: Cristine Carpio MD Previous referral: Neelima Rockwell MD Diagnosis: Tetraplegia ([facility]) [G82.50] Previous diagnosis: Injury of cervical spinal cord, 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 [employer] [id number] Progress note Author Les Shaikh [facility] Note Date/Time December 29, 2024 11 :00am [facility] [address] [place] [address] Progress Note - Wound Care 12/29/24 1056 MR#: [id number] Acct: [id number] Name: MAIDA POLANCO Rep #:[id number] : 1980 44 From: Les SORIANO PCP: [...] Date Recorded By Document 12/15/24 14:43 GM [id number] 12/15/24 14:49 GM Document 12/22/24 15:06 DL [id number] 12/22/24 15:14 DL Document 12/29/24 09:18 KW [id number] 12/29/24 09:23 KW 12/15/24 12/22/24 12/29/24 14:43 15:06 09:18 WC - Today's Visit Information Type of service Follow-up Visit Follow-up Visit Follow-up Visit (Physician/CREDIT CARD ASSOCIATE (Physician/CREDIT CARD ASSOCIATE (Physician/CREDIT CARD ASSOCIATE ) ) ) Arrival Mode Wheelchair Wheelchair [...] Date Recorded By Document 12/15/24 14:43 GM [id number] 12/15/24 14:49 GM Document 12/22/24 15:06 DL [id number] 12/22/24 15:14 DL Document 12/29/24 09:18 KW [id number] 12/29/24 09:23 KW 12/15/24 12/22/24 12/29/24 14:43 [...] (34-66%) Small (1-33%) -Granulation Quality Red Red [place] -Slough/Fibrin Yes -Necrosis Amt Large (67-100%) Small [...] Recorded Date Recorded By Document 12/08/24 14:40 [id number] 12/08/24 14:47 Document 12/15/24 14:56 [id number] 12/15/24 15:00 JF Document 12/22/24 15:57 DS [id number] 12/22/24 16:04 DS Edit Result 12/22/24 15:57 DS (1) [id number] 12/22/24 16:05 DS Document 12/29/24 09:38 JF [id number] 12/29/24 09:44 JF (1) #1 lt lat [...] Date 03/05/29 08/03/29 08/03/29 -Product Lot Number [id number] 001 003 -Percent Used 100 100 100 -Lot number of Saline Used [id number] -Bleeding Controlled with Pressure Pressure Pressure -Treatment [...] Epicord -Expiration Date 07/03/29 -Product Lot Number [id number] -Percent Used 100 -Lot number of Saline Used [id number] -Bleeding Controlled with Pressure -Treatment Response Procedure [...] Recorded Date Recorded By Document 12/15/24 15:06 SH3185 12/15/24 15:07 GM Document 12/22/24 16:23 DL AT6165 12/22/24 16:24 DL Document 12/29/24 10:01 MY6187 12/29/24 10:02 12/15/24 12/22/24 12/29/24 15:06 16:23 [...] Cosigner Signature (if applicable): CC: ~ Signed [facility] Work Phone: [phone]) 976-860908-27-2025 Progress note [facility] [address] [place] [address] Progress Note - Wound Care 12/29/24 1056 MR#: [id number] Acct: [id number] Name: MAIDA POLANCO Rep #:[id number] : 1980 44 From: Les Richardson PM [...] Date Recorded By Document 12/15/24 14:43 GM IA0015 12/15/24 14:49 GM Document 12/22/24 15:06 DL AB3995 12/22/24 15:14 DL Document 12/29/24 09:18 KW EM1902 12/29/24 09:23 KW 12/15/24 12/22/24 12/29/24 14:43 15:06 09:18 - Today's Visit Information Type of service Follow-up Visit Follow-up Visit Follow-up Visit (Physician/CREDIT CARD ASSOCIATE (Physician/CREDIT CARD ASSOCIATE (Physician/CREDIT CARD ASSOCIATE ) ) ) Arrival Mode Wheelchair Wheelchair [...] Date Recorded By Document 12/15/24 14:43 GM EZ5026 12/15/24 14:49 GM Document 12/22/24 15:06 DL NC1741 12/22/24 15:14 DL Document 12/29/24 09:18 KW LY6142 12/29/24 09:23 KW 12/15/24 12/22/24 12/29/24 14:43 [...] (34-66%) Small (1-33%) -Granulation Quality Red Red [place] -Slough/Fibrin Yes -Necrosis Amt Large (67-100%) Small [...] Date Recorded By Document 12/08/24 14:40 GM RI9392 12/08/24 14:47 GM Document 12/15/24 14:56 JF HU7212 12/15/24 15:00 JF Document 12/22/24 15:57 DS AT9612 12/22/24 16:04 DS Edit Result 12/22/24 15:57 DS (1) MS8179 12/22/24 16:05 DS Document 12/29/24 09:38 JF HV7589 12/29/24 09:44 JF (1) #1 lt lat [...] Date 03/05/29 08/03/29 08/03/29 -Product Lot Number [id number] 003 -Percent Used 100 100 100 -Lot number of Saline Used [id number] -Bleeding Controlled with Pressure Pressure Pressure -Treatment [...] Epicord -Expiration Date 07/03/29 -Product Lot Number [id number] -Percent Used 100 -Lot number of Saline Used [id number] -Bleeding Controlled with Pressure -Treatment Response Procedure [...] Recorded Date Recorded By Document 12/15/24 15:06 LS7699 12/15/24 15:07 GM Document 12/22/24 16:23 DL NU9960 12/22/24 16:24 DL Document 12/29/24 10:01 YS4907 12/29/24 10:02 12/15/24 12/22/24 12/29/24 15:06 16:23 [...] Cosigner Signature (if applicable): CC: ~ Signed [facility]08-22-2025 Bkyz13-otje-zuc male with a high level spinal cord [...] weeks after next Botox scheduled in March.[employer] 12-24-2024 History of Present illness Narrative* [...] Botox scheduled in March. documented in this smzwosvgjZbtiuUdyxuh75-12-3528 Progress note Author Les Shaikh [facility] Note Date/Time December 23, 2024 4: 17pm [facility] [address] [place] [address] Progress Note - Wound Care 12/23/24 1613 MR#: [id number] Acct: [id number] Name: MAIDA POLANCO Rep #:[id number] : 1980 44 From: Les SORIANO PCP: [...] Date Recorded By Document 12/15/24 14:43 GM QF5402 12/15/24 14:49 GM Document 12/22/24 15:06 DL RV2153 12/22/24 15:14 DL 12/15/24 12/22/24 14:43 15:06 - Today's Visit Information Type of service Follow-up Visit Follow-up Visit (Physician/CREDIT CARD ASSOCIATE (Physician/CREDIT CARD ASSOCIATE ) ) Arrival Mode Wheelchair Wheelchair Transfer [...] Recorded Date Recorded By Document 12/15/24 14:43 RC4699 12/15/24 14:49 Document 12/22/24 15:06 DL PA5060 12/22/24 15:14 DL 12/15/24 12/22/24 14:43 15:06 [...] Recorded Date Recorded By Document 12/08/24 14:40 SD8373 12/08/24 14:47 Document 12/15/24 14:56 YZ4534 12/15/24 15:00 Document 12/22/24 15:57 DS SC9880 12/22/24 16:04 DS Edit Result 12/22/24 15:57 DS (1) XG4525 12/22/24 16:05 DS (1) #1 lt lat [...] Date 03/05/29 08/03/29 08/03/29 -Product Lot Number [id number] 003 -Percent Used 100 100 100 -Lot number of Saline Used [id number] -Bleeding Controlled with Pressure Pressure Pressure -Treatment [...] Date Recorded By Document 12/15/24 15:06 GM RJ4248 12/15/24 15:07 GM Document 12/22/24 16:23 DL OW3485 12/22/24 16:24 DL 12/15/24 12/22/24 15:06 16:23 [...] Cosigner Signature (if applicable): CC: ~ Signed [facility] Work Phone: 1(442) 988-497108-21-2025 Progress note [facility] [address] [place] [address] Progress Note - Wound Care 12/23/24 1613 MR#: [id number] Acct: [id number] Name: MAIDA POLANCO Rep #:[id number] : 1980 44 From: Les Richardson PM [...] Recorded Date Recorded By Document 12/15/24 14:43 TF7064 12/15/24 14:49 Document 12/22/24 15:06 DL HZ3530 12/22/24 15:14 DL 12/15/24 12/22/24 14:43 15:06 - Today's Visit Information Type of service Follow-up Visit Follow-up Visit (Physician/CREDIT CARD ASSOCIATE (Physician/CREDIT CARD ASSOCIATE ) ) Arrival Mode Wheelchair Wheelchair Transfer [...] Recorded Date Recorded By Document 12/15/24 14:43 SF2211 12/15/24 14:49 Document 12/22/24 15:06 DL CD5359 12/22/24 15:14 DL 12/15/24 12/22/24 14:43 15:06 [...] Recorded Date Recorded By Document 12/08/24 14:40 OW2569 12/08/24 14:47 Document 12/15/24 14:56 JF XZ6960 12/15/24 15:00 Document 12/22/24 15:57 DS VX2775 12/22/24 16:04 DS Edit Result 12/22/24 15:57 DS (1) JZ3637 12/22/24 16:05 DS (1) #1 lt lat [...] Date 03/05/29 08/03/29 08/03/29 -Product Lot Number [id number] 003 -Percent Used 100 100 100 -Lot number of Saline Used [id number] [id number] 6653052 -Bleeding Controlled with Pressure Pressure Pressure -Treatment [...] Recorded Date Recorded By Document 12/15/24 15:06 FN7641 12/15/24 15:07 Document 12/22/24 16:23 DL OM3896 12/22/24 16:24 DL 12/15/24 12/22/24 15:06 16:23 [...] Cosigner Signature (if applicable): CC: ~ Signed [facility]08-13-2025 Progress note Author Les Shaikh [facility] Note Date/Time December 15, 2024 7: 44pm [facility] [address] [place] [address] Progress Note - Wound Care 12/15/241938 MR#: [id number] Acct: [id number] Name: MAIDA POLANCO Rep #:[id number] : 1980 44 From: Les SORIANO PCP: [...] Recorded Date Recorded By Document 12/15/24 14:43 ND7419 12/15/24 14:49 12/15/24 14:43 - Today's Visit Information Type of service Follow-up Visit (Physician/CREDIT CARD ASSOCIATE ) Arrival Mode Wheelchair Transfer Assistance None [...] Recorded Date Recorded By Document 12/15/24 14:43 XW2697 12/15/24 14:49 12/15/24 14:43 Wound Center Nurse [...] Recorded Date Recorded By Document 12/08/24 14:40 NS9917 12/08/24 14:47 Document 12/15/24 14:56 LX1965 12/15/24 15:00 12/08/24 12/15/24 14:40 14:56 Wound [...] -Expiration Date 03/05/29 08/03/29 -Product Lot Number [id number] -Percent Used 100 100 -Lot number of Saline Used [id number] 1197570 -Bleeding Controlled with Pressure Pressure -Treatment Response [...] Recorded Date Recorded By Document 12/15/24 15:06 YI8639 12/15/24 15:07 12/15/24 15:06 Wound Care Center [...] Cosigner Signature (if applicable): CC: ~ Signed [facility] Work Phone: 1(575) 618-166508-13-2025 Progress note [facility] [address] [place] [address] Progress Note - Wound Care 12/15/241938 MR#: [id number] Acct: [id number] Name: MAIDA POLANCO Rep #:[id number] : 1980 44 From: Les SORIANO PCP: [...] Recorded Date Recorded By Document 12/15/24 14:43 ST1103 12/15/24 14:49 12/15/24 14:43 - Today's Visit Information Type of service Follow-up Visit (Physician/CREDIT CARD ASSOCIATE ) Arrival Mode Wheelchair Transfer Assistance None [...] Recorded Date Recorded By Document 12/15/24 14:43 [id number] 12/15/24 14:49 12/15/24 14:43 Wound Center Nurse [...] Recorded Date Recorded By Document 12/08/24 14:40 WD3749 12/08/24 14:47 Document 12/15/24 14:56 EI2043 12/15/24 15:00 12/08/24 12/15/24 14:40 14:56 Wound [...] -Expiration Date 03/05/29 08/03/29 -Product Lot Number [id number] -Percent Used 100 100 -Lot number of Saline Used [id number] [id number] -Bleeding Controlled with Pressure Pressure -Treatment Response [...] Recorded Date Recorded By Document 12/15/24 15:06 CT8158 12/15/24 15:07 12/15/24 15:06 Wound Care Center [...] Cosigner Signature (if applicable): CC: ~ Signed [facility]08-07-2025 Progress note Author Les Shaikh [facility] Note Date/Time December 09, 2024 11: 12am [facility] [address] [place] [address] Progress Note - Wound Care 12/09/24 1110 MR#: [id number] Acct: [id number] Name: MAIDA POLANCO Rep #:[id number] : 1980 44 From: Les Richardson PM PCP: Dr. Markel Bell MD Status:[facility] Location: History of Present Illness Date of [...] Recorded Date Recorded By Document 12/08/24 14:40 WU1543 12/08/24 14:47 12/08/24 14:40 Wound Center Nurse [...] Epicord -Expiration Date 03/05/29 -Product Lot Number [id number] -Percent Used 100 -Lot number of Saline Used 8383067 -Bleeding Controlled with Pressure -Treatment Response Procedure [...] Cosigner Signature (if applicable): CC: ~ Signed [facility] Work Phone: 1(946) 517-470008-07-2025 Progress note [facility] [address] [place] [address] Progress Note - Wound Care 12/09/24 1110 MR#: [id number] Acct: [id number] Name: MAIDA POLANCO Rep #:[id number] : 1980 44 From: Les Richardson PM [...] Recorded Date Recorded By Document 12/08/24 14:40 [id number] 12/08/24 14:47 12/08/24 14:40 Wound Center Nurse [...] Epicord -Expiration Date 03/05/29 -Product Lot Number [id number] -Percent Used 100 -Lot number of Saline Used [id number] -Bleeding Controlled with Pressure -Treatment Response Procedure [...] Cosigner Signature (if applicable): CC: ~ Signed [facility]07-31-2025 Progress note Author Les Shaikh [facility] Note Date/Time December 02, 2024 2:22 pm [facility] [address] [place] [address] Progress Note - Wound Care 12/02/24 1416 MR#: [id number] Acct: [id number] Name: MAIDA POLANCO Rep #:[id number] : 1980 44 From: Les Richardson PM [...] Recorded Date Recorded By Document 11/03/24 13:22 [facility] UR4861 11/03/24 13:30 [facility] Document 11/11/24 14:02 KW NH4581 11/11/24 14:13 KW Document 11/17/24 14:02 DL OJ0216 11/17/24 14:09 DL Document 11/24/24 09:35 TS6305 11/24/24 09:37 JF Document 12/01/24 13:39 GM RC2955 12/01/24 13:41 11/03/24 11/11/24 11/17/24 13:22 14:02 14:02 - Today's Visit Information Type of service Follow-up Visit Follow-up Visit Follow-up Visit (Physician/CREDIT CARD ASSOCIATE (Physician/CREDIT CARD ASSOCIATE (Physician/CREDIT CARD ASSOCIATE ) ) ) Arrival Mode Wheelchair Ambulatory [...] Type of service Follow-up Visit Follow-up Visit (Physician/CREDIT CARD ASSOCIATE (Physician/CREDIT CARD ASSOCIATE ) ) Arrival Mode Wheelchair Wheelchair Transfer [...] Date Recorded By Document 11/03/24 13:22 BMF VL2179 11/03/24 13:30 BMF Document 11/11/24 14:02 KW TD5234 11/11/24 14:13 KW Document 11/17/24 14:02 DL YN5574 11/17/24 14:09 DL Document 11/24/24 09:35 JF ND3582 11/24/24 09:37 JF Document 12/01/24 13:39 GM DO0214 12/01/24 13:41 GM 11/03/24 11/11/24 11/17/24 13:22 [...] Date Recorded By Document 11/03/24 13:39 JF YC2923 11/03/24 13:48 Document 11/11/24 14:29 EO0715 11/11/24 14:46 Document 11/17/24 14:28 AZ6244 11/17/24 14:30 Document 11/24/24 09:38 MQ5407 11/24/24 09:39 Document 12/01/24 14:00 PW4175 12/01/24 14:06 11/03/24 11/11/24 11/17/24 13:39 14:29 [...] Disc -Expiration Date 07/03/29 -Product Lot Number [id number] -Percent Used 100 -Lot number of Saline Used [id number] -Bleeding Controlled with Pressure, Pressure Pressure Surgifoam [...] Disc -Expiration Date 03/05/29 -Product Lot Number [id number] -Percent Used 100 -Lot number of Saline Used [id number] -Bleeding Controlled with Pressure Pressure -Surgifoam (3/4 [...] Date Recorded By Document 11/03/24 14:06 KW JA0822 11/03/24 14:06 KW Document 11/11/24 14:56 DL KL0649 11/11/24 14:57 DL Document 11/17/24 14:50 [facility] YK6613 11/17/24 14:52 [facility] Document 11/24/24 09:56 KW FN4213 11/24/24 09:57 KW 11/03/24 11/11/24 11/17/24 14:06 [...] Cosigner Signature (if applicable): CC: ~ Signed [facility] Work Phone: 1(521) 752-972207-31-2025 Progress note [facility] [address] [place] [address] Progress Note - Wound Care 12/02/24 1416 MR#: [id number] Acct: [id number] Name: MAIDA POLANCO Rep #:[id number] : 1980 44 From: Les SORIANO PCP: [...] Date Recorded By Document 11/03/24 13:22 BMF NH4317 11/03/24 13:30 BMF Document 11/11/24 14:02 KW EJ1419 11/11/24 14:13 KW Document 11/17/24 14:02 DL TM4092 11/17/24 14:09 DL Document 11/24/24 09:35 JF LM6311 11/24/24 09:37 JF Document 12/01/24 13:39 YU0327 12/01/24 13:41 11/03/24 11/11/24 11/17/24 13:22 14:02 14:02 - Today's Visit Information Type of service Follow-up Visit Follow-up Visit Follow-up Visit (Physician/CREDIT CARD ASSOCIATE (Physician/CREDIT CARD ASSOCIATE (Physician/CREDIT CARD ASSOCIATE ) ) ) Arrival Mode Wheelchair Ambulatory [...] Type of service Follow-up Visit Follow-up Visit (Physician/CREDIT CARD ASSOCIATE (Physician/CREDIT CARD ASSOCIATE ) ) Arrival Mode Wheelchair Wheelchair Transfer [...] Date Recorded By Document 11/03/24 13:22 BMF EW5485 11/03/24 13:30 BMF Document 11/11/24 14:02 KW UM4570 11/11/24 14:13 KW Document 11/17/24 14:02 DL GU1106 11/17/24 14:09 DL Document 11/24/24 09:35 JF DE9036 11/24/24 09:37 JF Document 12/01/24 13:39 GM NL1232 12/01/24 13:41 GM 11/03/24 11/11/24 11/17/24 13:22 [...] Date Recorded By Document 11/03/24 13:39 DARIN PQ1526 11/03/24 13:48 Document 11/11/24 14:29 DH3847 11/11/24 14:46 Document 11/17/24 14:28 YW1463 11/17/24 14:30 Document 11/24/24 09:38 JP5195 11/24/24 09:39 Document 12/01/24 14:00 YK0774 12/01/24 14:06 11/03/24 11/11/24 11/17/24 13:39 14:29 [...] Disc -Expiration Date 07/03/29 -Product Lot Number [id number] 5 -Percent Used 100 -Lot number of Saline Used [id number] -Bleeding Controlled with Pressure, Pressure Pressure Surgifoam [...] Disc -Expiration Date 03/05/29 -Product Lot Number [id number] -Percent Used 100 -Lot number of Saline Used [id number] -Bleeding Controlled with Pressure Pressure -Surgifoam (3/4 [...] Date Recorded By Document 11/03/24 14:06 KW EG0067 11/03/24 14:06 KW Document 11/11/24 14:56 DL PU0144 11/11/24 14:57 DL Document 11/17/24 14:50 F PJ8332 11/17/24 14:52 BM Document 11/24/24 09:56 KW VF1223 11/24/24 09:57 KW 11/03/24 11/11/24 11/17/24 14:06 [...] Cosigner Signature (if applicable): CC: ~ Signed [facility]07-31-2025 History of Present illness Narrative* Kaleigh Frank PT - 12/02/2024 10:00 AM EDT Images from the original note were not included. Assistive Technology Invoice Report Provider Name: [employer] Authorization #: [id number] (Intake Assessment) and [id number] (Rehabilitation Technology - Assistive Tech - Other - Credential) Provider Invoice #: [id number] (Optional) Individual's Name: Maida Hensleydyllan Name(s) & [...] Observed/PerformanceIndividual Input/Self-Assessment/Progress/ConcernsEmployer Input (if applicabl e)1:00 AM12:00 TB60Zt-fsoagy assessment at home: Structured interview, functional task [...] No major concerns.N/A (No employer contact)12/03/2024 - 02/06/2025N/AN/H86Hfeliyvd technology solutions (evidence-based reviews from [employer], etc., [...] in-person. Outcomes aim to enhance independence/employability. Disclaimer: [employer] has no financial ties to vendors; explore alternatives. Contact Kaleigh David at [phone]. OOD Staff Attestation (Cell K77 or Equivalent) [...] arm control via tongue, transferable to digital interfaces.https://InsureWorx/waitlist (Join waitlist for purchase)$1,499 (Early Access est.)Power Elevating Roll-Under Clifford kElectric height-adjustable (22-48); 55 x 28 surface; memory presets; roll- under design for wheelchair access.Provides ergonomic workstation adjustable to PWC height, reducing strain and enabling prolonged computer use for work tasks. Evidence: Adjustable desks support posture and reduce pressure injuries in wheelchair users with SCI.https://www.Telsima/HLTXUDW-Qzqqlbjqch-Ytpwgwmg-Standing-W orkstation/dp/B50WYWNB19$199.99[facility] 3090 AdScootop MYTEK Network SolutionsIntel Core i5; 16GB RAS; 512GB SSD; Windows 11 Pro; multiple USB ports.Reliable base for MS apps/email/spreadsheets; compatible with MouthPad for input. Evidence: Standard desktops with AT interfaces enable vocational tasks in tetraplegia.https://www.Telsima/Qzpg-Ucrxhgtz-5125-[place]-Feniks/dp/E0E2T4CD XX$599.0027 Monitor x2 with Mounting ArmsAOC Q32V3S: 4744w9577 QHD, 75Hz, IPS; Mounting arms: Dual-arm adjustable, VESA compatible.Dual screens for multitasking (e.g., email + spreadsheets); arms allow optimal positioning from PWC. Evidence: Multi-monitor setups improve productivity in limited-mobility users.Monitors: https://www.Telsima/VQQ-Q05S0K-3530a1599J77G9A-2317v2933-ixtlayyb-THDS/dp/U02U4VQE5G; Arms: https://www.Telsima/gp/product/C83V5ABROT$399.98 (Monitors $199.99 ea.) + $59.98 (Arms $29.99 ea.)USB Webcam with Tripod StandLogitech C922x: 1080p, autofocus; InnoGear tripod: Adjustable gooseneck.Enablesvideo calls for telecommunication; tripod for PWC-level positioning. Evidence: Webcams support remote work in SCI.Webcam: https://www.Telsima/Pdjaykpr-M137h-UrhR404d-Jqa-Nfylfb-Lmrpsi/dp/U74YIZBIYN; Stand: https://wwwTonix Pharmaceuticals Holding/NhdoSurf-Zukpjuvp-Wcbcoaucng-Flexible-[place]os[place]ck/dp/B07WNJ 2CJC$99.99 + $19.99USB MicrophoneBlue Yeti Tracie: Cardioid/omni modes, rpkk-rkl-vkho.Clear audio input for calls/email dictation. Evidence: Enhances communication in hands-free setups.https://wwwTonix Pharmaceuticals Holding/dp/B34X5GDYVU$99.99USB SpeakerSanyun SW208: Stereo, Bluetooth/USB powered.Audio output for calls/apps. Evidence: Supports accessible interfaces.https://www.Telsima/Hqrzuerg-Tutsgpbl-Dmuwlma-Powered-Bluetooth/dp /M58QN30X38$59.99USB Expansion AdapterIVETTO 7-Port Hub: Individual switches, 5Gbps.Expands ports for peripherals. Evidence: Essential for multi-device AT setups.https://www.Telsima/IVBRYANO-Individua n-Gcbnudxr-WgpFwqf-Surface/dp/O78Y54IFC5$29.99Battery Backup and Surge ProtectorCyberPower CF6008EVPEGM: 1500VA/900W, 12 outlets.Protects equipment from outages; ensures uptime for work. Evidence: Critical for reliable AT in home settings.https://www.Telsima/dp/E80PKJDACC$169.95 Total Estimated Equipment Cost: $25,397.85 Plan of [...] OOD Counselor (Courtney Oreilly): Forward report to [facility] ([email or web address], [email or web address], ) for MouthPad and desk setup quote/procurement/delivery/configuration. Coordinate with [employer] ([email or web address]) and participant forFlexStep installation (quote #[id number] attached). Authorize purchases; schedule home delivery/setup ([address] [place] [address]). Follow up in 1 month for progress. No further provider training/delivery/setup. documented in this [id number] Telephone encounter Note* Telephone Encounter - Supriya Concepcion - 11/30/2024 3:07 PM EDT Called and tried to reach pt to let him know of his first appt. Left message to give me a call backat number [facility] Work Phone: [phone] Miscellaneous Notes* Telephone Encounter - Carlene, Supriya E - 11/30/2024 3:07 PM EDT Called and tried to reach pt to let him know of his first appt. Left message to give me a call backat number documented in this [id number] Instructions* Patient Instructions* Cristine Carpio MD - [...] hour in 3 months documented in this [id number] History of Present illness Narrative* Cristine Carpio MD - 11/30/2024 11:29 AM EDT Images from the original note were not included. [facility] Visit date: 12/03/2024 PCP: MARKEL BELL CC: Comprehensive first visit of spinal cord injury and resultant complications, want to establish care in [facility] related to their spinal cord injury HPI: Name: Maida Polanco Age: [age] year old Sex: male 11/30/2024 06/14/2024 SCI Data Injury Date 12/29/2023 12/29/2023 Injury Etiology Vehicular NLI C4 C4 AIS A A Maida Polanco is a 43 y.o. 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 Per [...] movement to BLE to touch. Was at [facility] on vent 52 days and ehn to [facility] for PMR. Traumatic work up revealed: Traumatic brain injury, severe, Cervical fracture, Livier-aortic Hematoma, Left nasal bone fracture, T 2-5 anterior superior endplate fractures , L 1-5 transverse process fractures, Bilateral Renal Infarctions, nasal bone fractures, Intraparenchymal hemorrhage and left ribfractures. He underwent inpatient rehabilitation at [facility] from February 18, 2024 throughMarch 24, 2024 after which time he was discharged home with his family. Patient was accompanied by his , . The patient gave permission to discuss their medical information, including PHI, in their presence. Interim HPI since dicharge from rehab hospital ([facility], Dr Gardner ) -No hospitalization and illness since discharge (1 ED visit at [facility] for eye bulging, all ok) -No falls, no manning - Recent UTI- completed 7 Days course of oral antibiotics this week . -05/10/24- IVF filter removed by IR at [facility] [address] [facility], bad experience at [facility], right rotatior cuff torn ad cn no longer use right arm. # cortisone injections done -04/09/2024-Seen by Urologist-Dr Cai at [facility]- plan to continue CIC, detrol 1mg BID and started Vibegron(Gemtesa)75mg, They are going to establish care with urologist locally and will be seeing urologist today afternoon -04/08/24- R SAB injections for right shoulder pain by Dr.Tiso neri [facility] -Please see review of system for other [...] house o n , have appt with [employer]. Needs urologist Attempted to wean gabapenitn : [...] 4 mg/0.1 mL nasal liquid Use 1 Tatum in each nostril. baclofen (LIORESAL) 10 MG [...] file. Underwent the follow surgical interventions @ [facility]: Date Operation/Procedure Provider Name 12/29/[address] 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 CLOF: Dependent for all of his ADLS . 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 [facility] cllinic to see if tendon release of right bicep is an option Continue current wound clinic reccs and c/w same bowel routine. PT and OT referral Bone density referral made, patient to schedule Follow up in 1 hour in 3 months Time spent in counseling : 75 minutes Total Time Spent with Patient: 90 minutes Dept PMR, Spinal Cord Injury Medicine Office [phone] FAX [phone] documented in this [id number] Progress note Author Les Shaikh [facility] Note Date/Time November 24, 2024 10:2 3am [facility] [address] [place] [address] Progress Note - Wound Care 11/24/24 1021 MR#: [id number] Acct: [id number] Name: MAIDA POLANCO Rep #:[id number] : 1980 44 From: Les Richardson PM [...] 44-year-old quadriplegic male in motorized wheelchair presenting [facility] center today for follow-up evaluation [...] Recorded Date Recorded By Document 11/03/24 13:22 [facility] [id number] 11/03/24 13:30 [facility] Document 11/11/24 14:02 [id number] 11/11/24 14:13 KW Document 11/17/24 14:02 DL [id number] 11/17/24 14:09 DL Document 11/24/24 09:35 JF HV3620 11/24/24 09:37 JF 11/03/24 11/11/24 11/17/24 13:22 14:02 14:02 - Today's Visit Information Type of service Follow-up Visit Follow-up Visit Follow-up Visit (Physician/CREDIT CARD ASSOCIATE (Physician/CREDIT CARD ASSOCIATE (Physician/CREDIT CARD ASSOCIATE ) ) ) Arrival Mode Wheelchair Ambulatory [...] Visit Information Type of service Follow-up Visit (Physician/CREDIT CARD ASSOCIATE ) Arrival Mode Wheelchair Transfer Assistance Manual [...] Date Recorded By Document 11/03/24 13:22 BMF [id number] 11/03/24 13:30 BM Document 11/11/24 14:02 KW [id number] 11/11/24 14:13 KW Document 11/17/24 14:02 DL [id number] 11/17/24 14:09 DL Document 11/24/24 09:35 JF [id number] 11/24/24 09:37 JF 11/03/24 11/11/24 11/17/24 13:22 [...] Recorded Date Recorded By Document 11/03/24 13:39 [id number] 11/03/24 13:48 Document 11/11/24 14:29 [id number] 11/11/24 14:46 Document 11/17/24 14:28 [id number] 11/17/24 14:30 Document 11/24/24 09:38 [id number] 11/24/24 09:39 11/03/24 11/11/24 11/17/24 13:39 14:29 [...] Disc -Expiration Date 07/03/29 -Product Lot Number [id number] 5 -Percent Used 100 -Lot number of Saline Used [id number] -Bleeding Controlled with Pressure, Pressure Pressure Surgifoam [...] Date Recorded By Document 11/03/24 14:06 KW UM8545 11/03/24 14:06 KW Document 11/11/24 14:56 DL MC6265 11/11/24 14:57 DL Document 11/17/24 14:50 BMF BT7289 11/17/24 14:52 BMF Document 11/24/24 09:56 KW DT1497 11/24/24 09:57 11/03/24 11/11/24 11/17/24 14:06 14:56 [...] neuropathies 11/24/24 1023 <Electronically signed by Les Shaikh DPMychal> Cosigner Signature (if applicable): CC: ~ Signed [facility] Work Phone: 1(419) 424-348607-23-2025 Progress note [facility] [address] [place] [address] Progress Note - Wound Care 11/24/24 1021 MR#: [id number] Acct: [id number] Name: MAIDA POLANCO Rep #:[id number] : 1980 44 From: Les SORIANO PCP: Dr. Markel Bell MD Status:[facility] Location: History of Present Illness Date of [...] been compliant with taking his oral antibiotics, sdvmwsikocsif794 mg twice daily. He admits improved redness [...] Date Recorded By Document 11/03/24 13:22 BMF [id number] 11/03/24 13:30 BMF Document 11/11/24 14:02 KW RF5209 11/11/24 14:13 KW Document 11/17/24 14:02 DL [id number] 11/17/24 14:09 DL Document 11/24/24 09:35 JF [id number] 11/24/24 09:37 JF 11/03/24 11/11/24 11/17/24 13:22 14:02 14:02 WC - Today's Visit Information Type of service Follow-up Visit Follow-up Visit Follow-up Visit (Physician/CREDIT CARD ASSOCIATE (Physician/CREDIT CARD ASSOCIATE (Physician/CREDIT CARD ASSOCIATE ) ) ) Arrival Mode Wheelchair Ambulatory [...] Visit Information Type of service Follow-up Visit (Physician/CREDIT CARD ASSOCIATE ) Arrival Mode Wheelchair Transfer Assistance Manual [...] Date Recorded By Document 11/03/24 13:22 BMF RH1742 11/03/24 13:30 BMF Document 11/11/24 14:02 KW RB0216 11/11/24 14:13 KW Document 11/17/24 14:02 DL IS0136 11/17/24 14:09 DL Document 11/24/24 09:35 JF [id number] 11/24/24 09:37 JF 11/03/24 11/11/24 11/17/24 13:22 [...] Recorded Date Recorded By Document 11/03/24 13:39 BB9225 11/03/24 13:48 Document 11/11/24 14:29 [id number] 11/11/24 14:46 Document 11/17/24 14:28 [id number] 11/17/24 14:30 Document 11/24/24 09:38 [id number] 11/24/24 09:39 11/03/24 11/11/24 11/17/24 13:39 14:29 [...] Disc -Expiration Date 07/03/29 -Product Lot Number [id number] 5 -Percent Used 100 -Lot number of Saline Used [id number] -Bleeding Controlled with Pressure, Pressure Pressure Surgifoam [...] Date Recorded By Document 11/03/24 14:06 KW HD1095 11/03/24 14:06 KW Document 11/11/24 14:56 DL [id number] 11/11/24 14:57 DL Document 11/17/24 14:50 F OO4638 11/17/24 14:52 BM Document 11/24/24 09:56 KW [id number] 11/24/24 09:57 KW 11/03/24 11/11/24 11/17/24 14:06 [...] Cosigner Signature (if applicable): CC: ~ Signed [facility]07-18-2025 History of Present illness Narrative* Neelima Villarreal [...] daily. vitamin D2 ergocalciferol (DRISDOL) 1.25 MG (19711 UT) capsule Take 50,000 Units by mouth [...] surgical history on file. documented in this [id number] Progress note Author Les Shaikh [facility] Note Date/Time November 17, 2024 3:33 pm [facility] [address] [place] [address] Progress Note - Wound Care 11/17/24 1528 MR#: [id number] Acct: [id number] Name: MAIDA POLANCO Rep #:[id number] : 1980 44 From: Les Richardson PM [...] as discussed. He did follow-up with physician research lab assistant Rosalina Bergman for evaluation and treatment. [...] Date Recorded By Document 11/03/24 13:22 BMF HY2238 11/03/24 13:30 BMF Document 11/11/24 14:02 KW [id number] 11/11/24 14:13 KW Document 11/17/24 14:02 DL UZ6222 11/17/24 14:09 DL 11/03/24 11/11/24 11/17/24 13:22 14:02 14:02 WC - Today's Visit Information Type of service Follow-up Visit Follow-up Visit Follow-up Visit (Physician/CREDIT CARD ASSOCIATE (Physician/CREDIT CARD ASSOCIATE (Physician/CREDIT CARD ASSOCIATE ) ) ) Arrival Mode Wheelchair Ambulatory [...] Date Recorded By Document 11/03/24 13:22 BMF [id number] 11/03/24 13:30 BMF Document 11/11/24 14:02 KW RU1926 11/11/24 14:13 KW Document 11/17/24 14:02 DL [id number] 11/17/24 14:09 DL 11/03/24 11/11/24 11/17/24 13:22 [...] Recorded Date Recorded By Document 11/03/24 13:39 XV3758 11/03/24 13:48 Document 11/11/24 14:29 AL3734 11/11/24 14:46 Document 11/17/24 14:28 RO8750 11/17/24 14:30 11/03/24 11/11/24 11/17/24 13:39 14:29 [...] Disc -Expiration Date 07/03/29 -Product Lot Number [id number] 5 -Percent Used 100 -Lot number of Saline Used [id number] -Bleeding Controlled with Pressure, Pressure Pressure Surgifoam [...] Date Recorded By Document 11/03/24 14:06 KW [id number] 11/03/24 14:06 KW Document 11/11/24 14:56 DL [id number] 11/11/24 14:57 DL Document 11/17/24 14:50 [facility] GH2023 11/17/24 14:52 BMF 11/03/24 11/11/24 11/17/24 14:06 [...] Cosigner Signature (if applicable): CC: ~ Signed [facility] Work Phone: 1(966) 763-223007-16-2025 Progress note [facility] [address] [place] [address] Progress Note - Wound Care 11/17/24 1528 MR#: [id number] Acct: [id number] Name: MAIDA POLANCO Rep #:[id number] : 1980 44 From: Les SORIANO PCP: [...] as discussed. He did follow-up with physician research lab assistant Rosalina Bergman for evaluation and treatment. [...] Recorded Date Recorded By Document 11/03/24 13:22 [facility] [id number] 11/03/24 13:30 [facility] Document 11/11/24 14:02 KW MG6787 11/11/24 14:13 KW Document 11/17/24 14:02 DL [id number] 11/17/24 14:09 DL 11/03/24 11/11/24 11/17/24 13:22 14:02 14:02 - Today's Visit Information Type of service Follow-up Visit Follow-up Visit Follow-up Visit (Physician/CREDIT CARD ASSOCIATE (Physician/CREDIT CARD ASSOCIATE (Physician/CREDIT CARD ASSOCIATE ) ) ) Arrival Mode Wheelchair Ambulatory [...] Recorded Date Recorded By Document 11/03/24 13:22 [facility] OZ5808 11/03/24 13:30 [facility] Document 11/11/24 14:02 KW ID3292 11/11/24 14:13 KW Document 11/17/24 14:02 DL [id number] 11/17/24 14:09 DL 11/03/24 11/11/24 11/17/24 13:22 [...] Assessed, Assessed, No Abnormality Erythema Erythema -Temperature (Liiver-wound Skin No Abnormality No Abnormality No Abnormality [...] Recorded Date Recorded By Document 11/03/24 13:39 CR2993 11/03/24 13:48 Document 11/11/24 14:29 PP0300 11/11/24 14:46 Document 11/17/24 14:28 [id number] 11/17/24 14:30 11/03/24 11/11/24 11/17/24 13:39 14:29 [...] Disc -Expiration Date 07/03/29 -Product Lot Number [id number] 5 -Percent Used 100 -Lot number of Saline Used [id number] -Bleeding Controlled with Pressure, Pressure Pressure Surgifoam [...] Date Recorded By Document 11/03/24 14:06 KW LE3016 11/03/24 14:06 KW Document 11/11/24 14:56 DL GJ4825 11/11/24 14:57 DL Document 11/17/24 14:50 [facility] AZ6016 11/17/24 14:52 [facility] 11/03/24 11/11/24 11/17/24 14:06 14:56 14:50 Wound [...] Cosigner Signature (if applicable): CC: ~ Signed [facility]07-11-2025 Progress note Author Rosalina Bergman [facility] Note Date/Time November 12, 2024 10:4 2am [facility] [address] [place] [address] Progress Note - Wound Care 11/11/24 1722 MR#: [id number] Acct: [id number] Name: MAIDA POLANCO Rep #:[id number] : 1980 44 From: Rosalina HERNANDEZ PCP: [...] anaerobic bacteria isolated. Charges/Coding Procedures Integumentary 150xxx-152xx: 53585 Skin sub graft trnk/arm/leg Physical Exam Const [...] Recorded Date Recorded By Document 11/03/24 13:22 [facility] KP1060 11/03/24 13:30 BM Document 11/11/24 14:02 KW PV6294 11/11/24 14:13 KW 11/03/24 11/11/24 13:22 14:02 - Today's Visit Information Type of service Follow-up Visit Follow-up Visit (Physician/CREDIT CARD ASSOCIATE (Physician/CREDIT CARD ASSOCIATE ) ) Arrival Mode Wheelchair Ambulatory Transfer [...] Recorded Date Recorded By Document 11/03/24 13:22 [facility] SI5090 11/03/24 13:30 [facility] Document 11/11/24 14:02 [id number] 11/11/24 14:13 11/03/24 11/11/24 13:22 14:02 Wound [...] Recorded Date Recorded By Document 11/03/24 13:39 SP4835 11/03/24 13:48 Document 11/11/24 14:29 AO1252 11/11/24 14:46 11/03/24 11/11/24 13:39 14:29 Wound [...] Disc -Expiration Date 07/03/29 -Product Lot Number [id number] 5 -Percent Used 100 -Lot number of Saline Used [id number] -Bleeding Controlled with Pressure, Pressure Surgifoam ? [...] Date Recorded By Document 11/03/24 14:06 KW CJ0445 11/03/24 14:06 KW Document 11/11/24 14:56 DL [id number] 11/11/24 14:57 DL 11/03/24 11/11/24 14:06 14:56 [...] Cosigner Signature (if applicable): CC: ~ Signed [facility] Work Phone: 1(649) 838-976807-11-2025 Progress note [facility] [address] [place] [address] Progress Note - Wound Care 11/11/24 1722 MR#: [id number] Acct: [id number] Name: MAIDA POLANCO Rep #:[id number] : 1980 44 From: Rosalina HERNANDEZ PCP: [...] anaerobic bacteria isolated. Charges/Coding Procedures Integumentary 150xxx-152xx: 24123 Skin sub graft trnk/arm/leg Physical Exam Const [...] Recorded Date Recorded By Document 11/03/24 13:22 [facility] HR0242 11/03/24 13:30 [facility] Document 11/11/24 14:02 KW KS9024 11/11/24 14:13 11/03/24 11/11/24 13:22 14:02 WC - Today's Visit Information Type of service Follow-up Visit Follow-up Visit (Physician/CREDIT CARD ASSOCIATE (Physician/CREDIT CARD ASSOCIATE ) ) Arrival Mode Wheelchair Ambulatory Transfer [...] Recorded Date Recorded By Document 11/03/24 13:22 [facility] HL2818 11/03/24 13:30 [facility] Document 11/11/24 14:02 KW HN9006 11/11/24 14:13 11/03/24 11/11/24 13:22 14:02 Wound [...] Recorded Date Recorded By Document 11/03/24 13:39 AF8876 11/03/24 13:48 Document 11/11/24 14:29 MX0438 11/11/24 14:46 11/03/24 11/11/24 13:39 14:29 Wound [...] Disc -Expiration Date 07/03/29 -Product Lot Number [id number] 5 -Percent Used 100 -Lot number of Saline Used [id number] -Bleeding Controlled with Pressure, Pressure Surgifoam ? [...] Date Recorded By Document 11/03/24 14:06 KW ER3353 11/03/24 14:06 KW Document 11/11/24 14:56 DL PB0431 11/11/24 14:57 DL 11/03/24 11/11/24 14:06 14:56 [...] Cosigner Signature (if applicable): CC: ~ Signed [facility]07-09-2025 Telephone encounter Note* Telephone Encounter - Zaira Phillips - 11/10/2024 4:18 PM EDT Mrs. Polanco called to schedule Botox as it has been approved 11/02/24 - 11/02/25. Appointment scheduled. Discussed changes to insurance 12/03 - noted 11/19 appointment [id number] Miscellaneous Notes* Telephone Encounter - Zaira Phillips - 11/10/2024 4:18 PM EDT Mrs. Poalnco called to schedule Botox as it has been approved 11/02/24 - 11/02/25. Appointment scheduled. Discussed changes to insurance 12/03 - noted 11/19 appointment documented in this [id number] History and physical note Author Les Shaikh [facility] Note Date/Time November 05, 2024 6:36p m [facility] [address] [place] [address] H&P Exam - Wound Care 11/05/24 1826 MR#: [id number] Acct: [id number] Name: MAIDA POLANCO Rep #:[id number] : 1980 44 From: Les Shaikh D [...] the lateral [facility] of [facility] left foot[facility] Medical History Hypertension Home Medications ?Medication ?Instructions [...] History pain docusate sodium 283 mg-benzocaine ml MT 09/14/24 Unkno wn History 20 mg/5 mL [...] Unknown History sodium phosphates 19 gram-7 1 MT UD 09/14/24 Unknown H istory gram/118 mL [...] Recorded Date Recorded By Document 11/03/24 13:22 [facility] [id number] 11/03/24 13:30 [facility] 11/03/24 13:22 RUDI - Today's Visit Information Type of service Follow-up Visit (Physician/CREDIT CARD ASSOCIATE ) Arrival Mode Wheelchair Transfer Assistance None [...] Recorded Date Recorded By Document 11/03/24 13:22 [facility] KC6463 11/03/24 13:30 [facility] 11/03/24 13:22 Wound Center Nurse 1 #1 [...] Recorded Date Recorded By Document 11/03/24 13:39 [id number] 11/03/24 13:48 11/03/24 13:39 Wound Center Nurse [...] Date Recorded By Document 11/03/24 14:06 KW [id number] 11/03/24 14:06 KW 11/03/24 14:06 Wound Care [...] Cosigner Signature (if applicable): CC: ~ Signed [facility] Work Phone: 1(924) 691-732507-04-2025 History and physical note [facility] [address] [place] [address] H&P Exam - Wound Care 11/05/24 1826 MR#: [id number] Acct: [id number] Name: MAIDA POLANCO Rep #:[id number] : 1980 44 From: Les SORIANO PCP: [...] the lateral side of the left foot. [facility] Medical History Hypertension Home Medications ?Medication ?Instructions [...] History pain docusate sodium 283 mg-benzocaine ml MT 09/14/24 Unkno wn History 20 mg/5 mL [...] Unknown History sodium phosphates 19 gram-7 1 MT UD 09/14/24 Unknown H istory gram/118 mL [...] Recorded Date Recorded By Document 11/03/24 13:22 [facility] BD3779 11/03/24 13:30 [facility] 11/03/24 13:22 - Today's Visit Information Type of service Follow-up Visit (Physician/CREDIT CARD ASSOCIATE ) Arrival Mode Wheelchair Transfer Assistance None [...] Recorded Date Recorded By Document 11/03/24 13:22 [facility] [id number] 11/03/24 13:30 [facility] 11/03/24 13:22 Wound Center Nurse 1 #1 [...] Date Recorded By Document 11/03/24 13:39 DARIN [id number] 11/03/24 13:48 DARIN 11/03/24 13:39 Wound Center [...] Date Recorded By Document 11/03/24 14:06 KW [id number] 11/03/24 14:06 KW 11/03/24 14:06 Wound Care [...] left foot with necrosis of bone 11/05/24 3066 Cosigner Signature (if applicable): CC: ~ Signed [facility]07-01-2025 History of Present illness Narrative* Nayana Gifford - 11/02/2024 2:01 PM EDT Images from the original note were not included. SPECIALTY PHARMACY - Prior Auth APPROVED- MEDICAL BENEFIT MEDICATION DETAILS Medication(s): Dysport J0586 1500 units IM Q3M x 1 year Authorized Quantity: 4 Unit of Measure: Number of Visits Is Approval [facility] Specific?: No Insurance Payor: [facility] How was approval received?: Fax Auth Number: [id number] PA Follow Up Effective Start Date: 11/02/24 Effective End Date: 11/02/25 PA Notes: 5 units of J0586 is = to Dysport 300 unit vials x 5 for each dose The pharmacy will contact patient Maida Polanco and update him on the approval status. Pharmacy to contact patient regarding next step for medication fill. Encounter to be routed to appropriate records management technician/pharmacist for medication fill outreach. Patient questions may be directed to: [phone] option 3 Thank you, Nayana Gifford Medication Stick Inserter [facility] Specialty Pharmacy Department [phone] opt 3 * Nayana Gifford - 11/02/2024 1:48 PM EDT Specialty Pharmacy PA Status Update: MEDICAL BENEFIT Medication and dosing: Dysport J0586 1500 units IM Q3M x 1 year Insurance: [employer] [place] [employer] [id number] Perform RX [phone] Rep Name: Cris Status: Called plan to confirm the 5 units of J0586 is = to Dysport 300 unit vials x 5 for each dose Pharmacy will addend this encounter with response from plan. Thank you, Nayana Gifford Medication Stick Inserter [facility] Specialty Pharmacy Department [phone] opt 3 * Nayana Gifford - 11/02/2024 11:18 AM EDT SPECIALTY PHARMACY - Prior Auth Submitted- MEDICAL BENEFIT Medication and dosing: Dysport J0586 1500 units IM Q3M x 1 year Insurance: [employer] [place] Medicaid [id number] Provider: Cynthia Bloom MD Dept: PM&R DX: G82.50 (ICD-10-CM) - Tetraparesis (HCC); M62.838 (ICD-10-CM) - Muscle spasticity Previous Therapy: -- Baclofen 03/22/2024 - current -- Gabapentin 03/22/2024 - current -- OT/HEP 08/20/2024 - current PA submitted on date: 11/02/2024 FAX #: (URGENT) [email or web address] Pharmacy will addend this encounter with response from plan. Thank you, Nayana Gifford Medication Stick Inserter Specialty Pharmacy Department [phone] opt 3 * Cindy Pastor PharmD - 10/27/2024 10:41 AM EDT Images from the original note were not included. Specialty Pharmacy Onboarding Note: An order has been received by [facility]. The specialty medication has been reviewed for appropriate use, dose, route, frequency and duration. Appropriate actions will follow, which may include a prior authorization, patient assistance, and/or sending to the appropriate filling pharmacy. Updates will be made within [employer]'s [employer] Program. Appointment Date: pending- due [facility]- 10/27 appt cancelled due to denial of Botox Referral #: [id number] Provider: Neelima Villarreal MD Medication:Dysport 1500u Im [...] IM Q3M x 1 year Insurance Payor: [facility] The pharmacy received notice that a prior authorization has been denied. Denial Reason: Required Step Therapy (Must have tried, failed or have a contraindication to : Xeomin & Dysport) Denial Follow Up: Appeal Required Additional Notes: Thank you, Nayana Gifford Medication Stick Inserter [facility] Specialty Pharmacy Department [phone] opt 3 * Nayana Gifford - 10/25/2024 9:01 AM EDT Images from the original note were not included. SPECIALTY PHARMACY - Prior Auth Submitted- MEDICAL BENEFIT Medication and dosing: Botox J0585 400 units IM Q3M x 1 year Insurance: [facility] Medicaid [id number] Provider: Cynthia Bloom MD Dept: PM&R DX: G82.50 (ICD-10-CM) - Tetraparesis (HCC); M62.838 (ICD-10-CM) - Muscle spasticity Previous Therapy: -- Baclofen 03/22/2024 - current -- Gabapentin 03/22/2024 - current -- OT/HEP 08/20/2024 - current PA submitted on date: 10/25/2024 PORTAL SUBMISSION: SITE: [facility] REF#: N/A FAX #: Pharmacy will addend this encounter with response from plan. Thank you, Nayana Gifford Medication Stick Inserter Specialty Pharmacy Department [phone] opt 3 * Nayana Gifford - 10/25/2024 [...] Additional Notes: Thank you, Nayana Gifford Medication Stick Inserter [facility] Specialty Pharmacy Department [phone] opt 3 * Nayana Gifford - 10/22/2024 10:23 AM EDT SPECIALTY PHARMACY - Prior Auth Submitted- PHARMACY BENEFIT Medication and dosing: Botox J0585 400 units IM Q3M x 1 year Insurance: [employer] [phone] Provider: Cynthia Bloom MD Dept: PM&R DX: G82.50 (ICD-10-CM) - Tetraparesis (HCC); M62.838 (ICD-10-CM) - Muscle spasticity Previous Therapy: -- Baclofen 03/22/2024 - current -- Gabapentin 03/22/2024 - current PA submitted on date: 10/22/2024 [facility] WQ- LATENT: Miller- [id number] Pharmacy will addend this encounter with response from plan. Thank you, Nayana Gifford Medication Stick Inserter Specialty Pharmacy Department [phone] opt 3 * Cindy Pastor, EloyD - 10/19/2024 9:03 AM EDT Specialty Pharmacy Onboarding Note: An order has been received by [facility]'s Specialty Pharmacy. The specialty medication has been reviewed for appropriate use, dose, route, frequency and duration. Appropriate actions will follow, which may include a prior authorization, patient assistance, and/or sending to the appropriate filling pharmacy. Updates will be made within [email or web address]'s [employer] Program. Appt: 10/27- NEW INS Referral: [id number] Provider: Cynthia Bloom MD Medication: Botox 400u q 3 mo Diagnosis: G82.50 (ICD-10-CM) - Tetraparesis (HCC) M62.838 (ICD-10-CM) - Muscle spasticity Benefit: pharmacy Cindy Pastor PharmD documented in this [id number] History of Present illness Narrative* Nayana Gifford - 11/02/2024 11:18 AM EDT SPECIALTY PHARMACY - Prior Auth Submitted- MEDICAL BENEFIT Medication and dosing: Dysport J0586 1500 units IM Q3M x 1 year Insurance: [employer] [place] [employer] [id number] Provider: Cynthia Bloom MD Dept: PM&R DX: G82.50 (ICD-10-CM) - Tetraparesis (HCC); M62.838 (ICD-10-CM) - Muscle spasticity Previous Therapy: -- Baclofen 03/22/2024 - current -- Gabapentin 03/22/2024 - current -- OT/HEP 08/20/2024 - current PA submitted on date: 11/02/2024 FAX #: (URGENT) [email or web address] Pharmacy will addend this encounter with response from plan. Thank you, Nayana Gifford Medication Stick Inserter Specialty Pharmacy Department [phone] opt 3 * Cindy Pastor PharmD - 10/27/2024 10:41 AM EDT Images from the original note were not included. Specialty Pharmacy Onboarding Note: An order has been received by [facility] Specialty Pharmacy. The specialty medication has been reviewed for appropriate use, dose, route, frequency and duration. Appropriate actions will follow, which may include a prior authorization, patient assistance, and/or sending to the appropriate filling pharmacy. Updates will be made within [employer]'s [facility] Program. Appointment Date: pending- due [facility]- 10/27 appt cancelled due to denial of Botox Referral #: [id number] Provider: Neelima Villarreal MD Medication:Dysport 1500u Im [...] IM Q3M x 1 year Insurance Payor: [facility] The pharmacy received notice that a prior authorization has been denied. Denial Reason: Required Step Therapy (Must have tried, failed or have a contraindication to : Xeomin & Dysport) Denial Follow Up: Appeal Required Additional Notes: Thank you, Nayana Gifford Medication Stick Inserter [facility] Specialty Pharmacy Department [phone] opt 3 * Nayana Gifford - 10/25/2024 9:01 AM EDT Images from the original note were not included. SPECIALTY PHARMACY - Prior Auth Submitted- MEDICAL BENEFIT Medication and dosing: Botox J0585 400 units IM Q3M x 1 year Insurance: [facility] Medicaid [id number] Provider: Cynthia Bloom MD Dept: PM&R DX: G82.50 (ICD-10-CM) - Tetraparesis (HCC); M62.838 (ICD-10-CM) - Muscle spasticity Previous Therapy: -- Baclofen 03/22/2024 - current -- Gabapentin 03/22/2024 - current -- OT/HEP 08/20/2024 - current PA submitted on date: 10/25/2024 PORTAL SUBMISSION: SITE: [facility] REF#: N/A FAX #: Pharmacy will addend this encounter with response from plan. Thank you, Nayana Gifford Medication Stick Inserter Specialty Pharmacy Department [phone] opt 3 * Nayana Gifford - 10/25/2024 8:58 AM EDT Images from the original note were not included. SPECIALTY PHARMACY - Prior Auth Denied- PHARMACY BENEFIT Medication(s): Botox J0585 400 units IM Q3M x 1 year Insurance Payor: [facility] The pharmacy received notice that a prior authorization has been denied. Denial Reason: Required Step Therapy (Must have tried, failed or have a contraindication to 2 preferred: Cyclobenzaprine, Dantrolene and Tizanidine) Denial Follow Up: Appeal Required Additional Notes: Thank you, Nayana Gifford Medication Stick Inserter [facility] Specialty Pharmacy Department [phone] opt 3 * Nayana Gifford - 10/22/2024 10:23 AM EDT SPECIALTY PHARMACY - Prior Auth Submitted- PHARMACY BENEFIT Medication and dosing: Botox J0585 400 units IM Q3M x 1 year Insurance: [facility] [phone] Provider: Cynthia Bloom MD Dept: PM&R DX: G82.50 (ICD-10-CM) - Tetraparesis (HCC); M62.838 (ICD-10-CM) - Muscle spasticity Previous Therapy: -- Baclofen 03/22/2024 - current -- Gabapentin 03/22/2024 - current PA submitted on date: 10/22/2024 EPIC WQ- LATENT: [place]- [id number] Pharmacy will addend this encounter with response from plan. Thank you, Nayana Gifford Medication Stick Inserter Specialty Pharmacy Department [phone] opt 3 * Cindy Pastor PharmD - 10/19/2024 9:03 AM EDT Specialty Pharmacy Onboarding Note: An order has been received by [facility]'s Specialty Pharmacy. The specialty medication has been reviewed for appropriate use, dose, route, frequency and duration. Appropriate actions will follow, which may include a prior authorization, patient assistance, and/or sending to the appropriate filling pharmacy. Updates will be made within [employer]'s [employer] Program. Appt: 10/27- NEW INS Referral: [id number] Provider: Cynthia Bloom MD Medication: Botox 400u q 3 mo Diagnosis: G82.50 (ICD-10-CM) - Tetraparesis (HCC) M62.838 (ICD-10-CM) - Muscle spasticity Benefit: pharmacy Cindy Pastor PharmD documented in this [id number] Progress note [facility] [address] [place] [id number] Progress Note - Wound Care 10/19/24 1148 MR#: [id number] Acct: [id number] Name: MAIDA POLANCO Rep #:[id number] : 1980 44 From: German Finney DPM PCP: Dr. Markel Bell MD Status:[facility] Location: History of Present Illness Date of [...] Date Recorded By Document 10/05/24 08:16 KW [id number] 10/05/24 08:21 KW Document 10/12/24 11:07 KW [id number] 10/12/24 11:22 KW Edit Result 10/12/24 11:07 KW (1) [id number] 10/12/24 11:46 JF Document 10/19/24 11:28 BMF [id number] 10/19/24 11:33 BMF (1) *Infection - Person Taught => Patient,Family - Teaching Method => Discussion, => Demonstration - Response to teaching => Return => Demonstration, => Verbalize => Understanding 10/05/24 10/12/24 10/19/24 08:16 11:07 11:28 - Today's Visit Information Type of service Follow-up Visit Follow-up Visit Follow-up Visit (Physician/CREDIT CARD ASSOCIATE (Physician/CREDIT CARD ASSOCIATE (Physician/CREDIT CARD ASSOCIATE ) ) ) Arrival Mode Wheelchair Wheelchair [...] Recorded Date Recorded By Document 10/05/24 08:16 [id number] 10/05/24 08:21 KW Document 10/12/24 11:07 KW [id number] 10/12/24 11:22 KW Document 10/19/24 11:28 [facility] [id number] 10/19/24 11:33 [facility] 10/05/24 10/12/24 10/19/24 08:16 11:07 11:28 Wound [...] Recorded Date Recorded By Document 10/05/24 08:46 [id number] 10/05/24 08:51 Document 10/12/24 11:40 [id number] 10/12/24 11:44 JF Edit Result 10/12/24 11:40 JF (1) [id number] 10/12/24 11:46 JF Document 10/19/24 11:44 JF [id number] 10/19/24 11:45 JF (1) #1 lt lat [...] Date Recorded By Document 10/05/24 09:05 KW [id number] 10/05/24 09:06 KW Document 10/12/24 11:44 JF [id number] 10/12/24 11:45 DARIN 10/05/24 10/12/24 09:05 11:44 [...] Cosigner Signature (if applicable): CC: ~ Signed [facility]06-25-2025 Miscellaneous Notes* Addendum Note - Cindy Pastor PharmD - 10/27/2024 10:47 AM EDTAddended by: CINDY PASTOR on: 10/27/2024 10:47 AM Modules accepted: Orders documented in this [id number] Miscellaneous Notes* Addendum Note - Cindy Pastor PharmD - 10/27/2024 10:47 AM EDTAddended by: CINDY PASTOR P on: 10/27/2024 10:47 AM Modules accepted: Orders documented in this [id number] Miscellaneous Notes* Addendum Note - Cindy Pastor PharmD - 10/27/2024 10:47 AM EDTAddended by: CINDY PASTOR P on: 10/27/2024 10:47 AM Modules accepted: Orders documented in this [id number] Note* Addendum Note - Cindy Pastor PharmD - 10/27/2024 10:47 AM EDTAddended by: CINDY PASTOR P on: 10/27/2024 10:47 AM Modules accepted: Orders [id number] Note* Addendum Note - Cindy Pastor PharmD - 10/27/2024 10:47 AM EDTAddended by: CINDY PASTOR P on: 10/27/2024 10:47 AM Modules accepted: Orders [id number] Note* Addendum Note - Cindy Pastor PharmD - 10/27/2024 10:47 AM EDTAddended by: CINDY PASTOR P on: 10/27/2024 10:47 AM Modules accepted: Orders [id number] Note* Addendum Note - Cindy Pastor PharmD - 10/27/2024 10:47 AM EDTAddended by: CINDY PASTOR P on: 10/27/2024 10:47 AM Modules accepted: Orders [id number] Note* Addendum Note - Cindy Pastor PharmD - 10/27/2024 10:47 AM EDTAddended by: CINDY PASTOR P on: 10/27/2024 10:47 AM Modules accepted: Orders [id number] History of Present illness Narrative* Cindy Pastor PharmD - 10/27/2024 10:41 AM EDT Images from the original note were not included. Specialty Pharmacy Onboarding Note: An order has been received by [facility]'s Specialty Pharmacy. The specialty medication has been reviewed for appropriate use, dose, route, frequency and duration. Appropriate actions will follow, which may include a prior authorization, patient assistance, and/or sending to the appropriate filling pharmacy. Updates will be made within [employer]'s [employer] Program. Appointment Date: pending- due [facility]- 10/27 appt cancelled due to denial of Botox Referral #: [id number] Provider: Neelima Villarreal MD Medication:Dysport 1500u Im [...] IM Q3M x 1 year [facility] The pharmacy received notice that a prior authorization has been denied. Denial Reason: Required Step Therapy (Must have tried, failed or have a contraindication to : Xeomin & Dysport) Denial Follow Up: Appeal Required Additional Notes: Thank you, Nayana Gifford Medication Stick Inserter [facility] Specialty Pharmacy Department [phone] opt 3 * Nayana Gifford - 10/25/2024 9:01 AM EDT Images from the original note were not included. SPECIALTY PHARMACY - Prior Auth Submitted- MEDICAL BENEFIT Medication and dosing: Botox J0585 400 units IM Q3M x 1 year Insurance: [employer] [place] Medicaid [phone] Provider: Cynthia Bloom MD Dept: PM&R DX: G82.50 (ICD-10-CM) - Tetraparesis (HCC); M62.838 (ICD-10-CM) - Muscle spasticity Previous Therapy: -- Baclofen 03/22/2024 - current -- Gabapentin 03/22/2024 - current -- OT/HEP 08/20/2024 - current PA submitted on date: 10/25/2024 [facility] FAX #: Pharmacy will addend this encounter with response from plan. Thank you, Nayana Gifford Medication Stick Inserter Specialty Pharmacy Department [phone] opt 3 * Nayana Gifford - 10/25/2024 [...] Additional Notes: Thank you, Nayana Gifford Medication Stick Inserter [facility] Specialty Pharmacy Department [phone] opt 3 * Nayana Gifford - 10/22/2024 10:23 AM EDT SPECIALTY PHARMACY - Prior Auth Submitted- PHARMACY BENEFIT Medication and dosing: Botox J0585 400 units IM Q3M x 1 year Insurance: [employer] [phone] Provider: Cynthia Bloom MD Dept: PM&R DX: G82.50 (ICD-10-CM) - Tetraparesis (HCC); M62.838 (ICD-10-CM) - Muscle spasticity Previous Therapy: -- Baclofen 03/22/2024 - current -- Gabapentin 03/22/2024 - current PA submitted on date: 10/22/2024 [facility] WQ- LATENT: [place]- [id number] Pharmacy will addend this encounter with response from plan. Thank you, Nayana Gifford Medication Stick Inserter Specialty Pharmacy Department [phone] opt 3 * Cindy Pastor PharmD - 10/19/2024 9:03 AM EDT Specialty Pharmacy Onboarding Note: An order has been received by [facility]'s Specialty Pharmacy. The specialty medication has been reviewed for appropriate use, dose, route, frequency and duration. Appropriate actions will follow, which may include a prior authorization, patient assistance, and/or sending to the appropriate filling pharmacy. Updates will be made within [facility]'s [employer] Yadira Program. Appt: 10/27- [facility] Referral: [id number] Provider: Cynthia Bloom MD Medication: Botox 400u q 3 mo Diagnosis: G82.50 (ICD-10-CM) - Tetraparesis (HCC) M62.838 (ICD-10-CM) - Muscle spasticity Benefit: pharmacy Cindy Pastor PharmD documented in this [id number] Progress note Author German Finney [facility] Note Date/Time October 26, 2024 8:56 am [facility] [address] [place] [address] Progress Note - Wound Care 10/26/24 0854 MR#: [id number] Acct: [id number] Name: MAIDA POLANCO Rep #:[id number] : 1980 44 From: German Finney DPM [...] Date Recorded By Document 10/05/24 08:16 KW [id number] 10/05/24 08:21 KW Document 10/12/24 11:07 KW [id number] 10/12/24 11:22 KW Edit Result 10/12/24 11:07 KW (1) [id number] 10/12/24 11:46 JF Document 10/19/24 11:28 BMF [id number] 10/19/24 11:33 BMF Document 10/26/24 08:37 BMF [id number] 10/26/24 08:41 BMF (1) *Infection - Person Taught => Patient,Family - Teaching Method => Discussion, => Demonstration - Response to teaching => Return => Demonstration, => Verbalize => Understanding 10/05/24 10/12/24 10/19/24 08:16 11:07 11:28 WC - Today's Visit Information Type of service Follow-up Visit Follow-up Visit Follow-up Visit (Physician/CREDIT CARD ASSOCIATE (Physician/CREDIT CARD ASSOCIATE (Physician/CREDIT CARD ASSOCIATE ) ) ) Arrival Mode Wheelchair Wheelchair [...] Visit Information Type of service Follow-up Visit (Physician/CREDIT CARD ASSOCIATE ) Arrival Mode Wheelchair Transfer Assistance None [...] Date Recorded By Document 10/05/24 08:16 KW [id number] 10/05/24 08:21 KW Document 10/12/24 11:07 KW [id number] 10/12/24 11:22 KW Document 10/19/24 11:28 BMF [id number] 10/19/24 11:33 BM Document 10/26/24 08:37 [facility] [id number] 10/26/24 08:41 [facility] 10/05/24 10/12/24 10/19/24 08:16 11:07 11:28 Wound [...] Date Recorded By Document 10/05/24 08:46 JF [id number] 10/05/24 08:51 JF Document 10/12/24 11:40 JF [id number] 10/12/24 11:44 JF Edit Result 10/12/24 11:40 JF (1) [id number] 10/12/24 11:46 JF Document 10/19/24 11:44 JF [id number] 10/19/24 11:45 JF Document 10/26/24 08:49 DS [id number] 10/26/24 08:50 DS (1) #1 lt lat [...] Date Recorded By Document 10/05/24 09:05 KW [id number] 10/05/24 09:06 KW Document 10/12/24 11:44 JF [id number] 10/12/24 11:45 JF Document 10/19/24 11:53 DS [id number] 10/19/24 11:58 DS 10/05/24 10/12/24 10/19/24 09:05 [...] Cosigner Signature (if applicable): CC: ~ Signed [facility] Work Phone: 1(613) 725-550306-24-2025 Evaluation note* Diagnosis Onset Date Resolution Status [...] of muscle chronic February 02, 2025 11:25am [facility] Work Phone: 1(912) 212-274006-24-2025 Progress note [facility] [address] [place] [address] Progress Note - Wound Care 10/26/24 0854 MR#: [id number] Acct: [id number] Name: MAIDA POLANCO Rep #:[id number] : 1980 44 From: German Finney DPM [...] Date Recorded By Document 10/05/24 08:16 KW [id number] 10/05/24 08:21 KW Document 10/12/24 11:07 KW [id number] 10/12/24 11:22 KW Edit Result 10/12/24 11:07 KW (1) [id number] 10/12/24 11:46 JF Document 10/19/24 11:28 BMF [id number] 10/19/24 11:33 BMF Document 10/26/24 08:37 BMF [id number] 10/26/24 08:41 BMF (1) *Infection - Person Taught => Patient,Family - Teaching Method => Discussion, => Demonstration - Response to teaching => Return => Demonstration, => Verbalize => Understanding 10/05/24 10/12/24 10/19/24 08:16 11:07 11:28 WC - Today's Visit Information Type of service Follow-up Visit Follow-up Visit Follow-up Visit (Physician/CREDIT CARD ASSOCIATE (Physician/CREDIT CARD ASSOCIATE (Physician/CREDIT CARD ASSOCIATE ) ) ) Arrival Mode Wheelchair Wheelchair [...] Visit Information Type of service Follow-up Visit (Physician/CREDIT CARD ASSOCIATE ) Arrival Mode Wheelchair Transfer Assistance None [...] Date Recorded By Document 10/05/24 08:16 KW [id number] 10/05/24 08:21 KW Document 10/12/24 11:07 KW [id number] 10/12/24 11:22 KW Document 10/19/24 11:28 [facility] [id number] 10/19/24 11:33 [facility] Document 10/26/24 08:37 [facility] [id number] 10/26/24 08:41 BM 10/05/24 10/12/24 10/19/24 08:16 [...] Date Recorded By Document 10/05/24 08:46 JF [id number] 10/05/24 08:51 JF Document 10/12/24 11:40 JF [id number] 10/12/24 11:44 JF Edit Result 10/12/24 11:40 JF (1) [id number] 10/12/24 11:46 JF Document 10/19/24 11:44 JF [id number] 10/19/24 11:45 JF Document 10/26/24 08:49 DS [id number] 10/26/24 08:50 DS (1) #1 lt lat [...] Date Recorded By Document 10/05/24 09:05 KW [id number] 10/05/24 09:06 KW Document 10/12/24 11:44 JF [id number] 10/12/24 11:45 JF Document 10/19/24 11:53 DS [id number] 10/19/24 11:58 DS 10/05/24 10/12/24 10/19/24 09:05 [...] Cosigner Signature (if applicable): CC: ~ Signed [facility]06-23-2025 History of Present illness Narrative* Nayana Gifford - 10/25/2024 2:47 PM EDT Images from the original note were not included. SPECIALTY PHARMACY - Prior Auth Denied- MEDICAL BENEFIT Medication(s): Botox J0585 400 units IM Q3M x 1 year Insurance Payor: [facility] The pharmacy received notice that a prior authorization has been denied. Denial Reason: Required Step Therapy (Must have tried, failed or have a contraindication to : Xeomin & Dysport) Denial Follow Up: Appeal Required Additional Notes: Thank you, Nayana Gifford Medication Stick Inserter [facility] Specialty Pharmacy Department [phone] opt 3 * Nayana Gifford - 10/25/2024 9:01 AM EDT Images from the original note were not included. SPECIALTY PHARMACY - Prior Auth Submitted- MEDICAL BENEFIT Medication and dosing: Botox J0585 400 units IM Q3M x 1 year Insurance: [facility] Medicaid [id number] Provider: Cynthia Bloom MD Dept: PM&R DX: G82.50 (ICD-10-CM) - Tetraparesis (HCC); M62.838 (ICD-10-CM) - Muscle spasticity Previous Therapy: -- Baclofen 03/22/2024 - current -- Gabapentin 03/22/2024 - current -- OT/HEP 08/20/2024 - current PA submitted on date: 10/25/2024 PORTAL SUBMISSION: SITE: [facility] REF#: N/A FAX #: Pharmacy will addend this encounter with response from plan. Thank you, Nayana Gifford Medication Stick Inserter Specialty Pharmacy Department [phone] opt 3 * Nayana Gifford - 10/25/2024 8:58 AM EDT Images from the original note were not included. SPECIALTY PHARMACY - Prior Auth Denied- PHARMACY BENEFIT Medication(s): Botox J0585 400 units IM Q3M x 1 year Insurance Payor: [facility] The pharmacy received notice that a prior authorization has been denied. Denial Reason: Required Step Therapy (Must have tried, failed or have a contraindication to 2 preferred: Cyclobenzaprine, Dantrolene and Tizanidine) Denial Follow Up: Appeal Required Additional Notes: Thank you, Nayana Gifford Medication Stick Inserter [facility] Specialty Pharmacy Department [phone] opt 3 * Nayana Gifford - 10/22/2024 10:23 AM EDT SPECIALTY PHARMACY - Prior Auth Submitted- PHARMACY BENEFIT Medication and dosing: Botox J0585 400 units IM Q3M x 1 year [facility] [phone] Provider: Cynthia Bloom MD Dept: PM&R DX: G82.50 (ICD-10-CM) - Tetraparesis (HCC); M62.838 (ICD-10-CM) - Muscle spasticity Previous Therapy: -- Baclofen 03/22/2024 - current -- Gabapentin 03/22/2024 - current PA submitted on date: 10/22/2024 EPIC WQ- LATENT: [place]- [id number] Pharmacy will addend this encounter with response from plan. Thank you, Nayana Gifford Medication Stick Inserter Specialty Pharmacy Department [phone] opt 3 * Cindy Pastor, PharmD - 10/19/2024 9:03 AM EDT Specialty Pharmacy Onboarding Note: [facility] The specialty medication has been reviewed for appropriate use, dose, route, frequency and duration. Appropriate actions will follow, which may include a prior authorization, patient assistance, and/or sending to the appropriate filling pharmacy. Updates will be made within [employer]'s [employer] Program. Appt: 10/27- [facility] INS Referral: [id number] Provider: Cynthia Bloom MD Medication: Botox 400u q 3 mo Diagnosis: G82.50 (ICD-10-CM) - Tetraparesis (HCC) M62.838 (ICD-10-CM) - Muscle spasticity Benefit: pharmacy Cindy Pastor PharmD documented in this [id number] History of Present illness Narrative* Nayana Gifford - 10/25/2024 9:01 AM EDT Images from the original note were not included. SPECIALTY PHARMACY - Prior Auth Submitted- MEDICAL BENEFIT Medication and dosing: Botox J0585 400 units IM Q3M x 1 year Insurance: [employer] [place] [employer] [phone] Provider: Cynthia Bloom MD Dept: PM&R DX: G82.50 (ICD-10-CM) - Tetraparesis (HCC); M62.838 (ICD-10-CM) - Muscle spasticity Previous Therapy: -- Baclofen 03/22/2024 - current -- Gabapentin 03/22/2024 - current -- OT/HEP 08/20/2024 - current PA submitted on date: 10/25/2024 PORTAL SUBMISSION: SITE: [facility] REF#: N/A FAX #: Pharmacy will addend this encounter with response from plan. Thank you, Nayana Gifford Medication Stick Inserter Specialty Pharmacy Department [phone] opt 3 * Nayana Gifford - 10/25/2024 8:58 AM EDT Images from the original note were not included. SPECIALTY PHARMACY - Prior Auth Denied- PHARMACY BENEFIT Medication(s): Botox J0585 400 units IM Q3M x 1 year Insurance Payor: [facility] The pharmacy received notice that a prior authorization has been denied. Denial Reason: Required Step Therapy (Must have tried, failed or have a contraindication to 2 preferred: Cyclobenzaprine, Dantrolene and Tizanidine) Denial Follow Up: Appeal Required Additional Notes: Thank you, Nayana Gifford Medication Stick Inserter [facility] Specialty Pharmacy Department [phone] opt 3 * Nayana Gifford - 10/22/2024 10:23 AM EDT SPECIALTY PHARMACY - Prior Auth Submitted- PHARMACY BENEFIT Medication and dosing: Botox J0585 400 units IM Q3M x 1 year Insurance: [facility] [phone] Provider: Cynthia Bloom MD Dept: PM&R DX: G82.50 (ICD-10-CM) - Tetraparesis (HCC); M62.838 (ICD-10-CM) - Muscle spasticity Previous Therapy: -- Baclofen 03/22/2024 - current -- Gabapentin 03/22/2024 - current PA submitted on date: 10/22/2024 EPIC WQ- LATENT: [facility]- [id number] Pharmacy will addend this encounter with response from plan. Thank you, Nayana Gifford Medication Stick Inserter Specialty Pharmacy Department [phone] opt 3 * Cindy Pastor, Walter - 10/19/2024 9:03 AM EDT Specialty Pharmacy Onboarding Note: An order has been received by [facility] Specialty Pharmacy. The specialty medication has been reviewed for appropriate use, dose, route, frequency and duration. Appropriate actions will follow, which may include a prior authorization, patient assistance, and/or sending to the appropriate filling pharmacy. Updates will be made within [employer] Program. 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 Thank you, Nayana Gifford Medication Stick Inserter Specialty Pharmacy Department [phone] opt 3 * Cindy Pastor PharmD - 10/19/2024 9:03 AM EDT Specialty Pharmacy Onboarding Note: [facility] The specialty medication has been reviewed for appropriate use, dose, route, frequency and duration. Appropriate actions will follow, which may include a prior authorization, patient assistance, and/or sending to the appropriate filling pharmacy. Updates will be made within [facility]'s [employer] Program. 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) - Muscle spasticity Benefit: pharmacy Cindy Pastor PharmD documented in this [id number] Progress note Author German Finney [facility] Note Date/Time November 01, 2024 11:5 9pm [facility] [address] [place] [address] Progress Note - Wound Care 10/19/24 1148 MR#: [id number] Acct: [id number] Name: MAIDA POLANCO Rep #:[id number] : 1980 44 From: German Finney DPM [...] Date Recorded By Document 10/05/24 08:16 KW [id number] 10/05/24 08:21 KW Document 10/12/24 11:07 KW [id number] 10/12/24 11:22 KW Edit Result 10/12/24 11:07 KW (1) [id number] 10/12/24 11:46 JF Document 10/19/24 11:28 BMF [id number] 10/19/24 11:33 BMF (1) *Infection - Person Taught => Patient,Family - Teaching Method => Discussion, => Demonstration - Response to teaching => Return => Demonstration, => Verbalize => Understanding 10/05/24 10/12/24 10/19/24 08:16 11:07 11:28 - Today's Visit Information Type of service Follow-up Visit Follow-up Visit Follow-up Visit (Physician/CREDIT CARD ASSOCIATE (Physician/CREDIT CARD ASSOCIATE (Physician/CREDIT CARD ASSOCIATE ) ) ) Arrival Mode Wheelchair Wheelchair [...] Recorded Date Recorded By Document 10/05/24 08:16 [id number] 10/05/24 08:21 Document 10/12/24 11:07 [id number] 10/12/24 11:22 KW Document 10/19/24 11:28 [facility] [id number] 10/19/24 11:33 [facility] 10/05/24 10/12/24 10/19/24 08:16 11:07 11:28 Wound [...] Recorded Date Recorded By Document 10/05/24 08:46 [id number] 10/05/24 08:51 JF Document 10/12/24 11:40 JF [id number] 10/12/24 11:44 JF Edit Result 10/12/24 11:40 JF (1) [id number] 10/12/24 11:46 Document 10/19/24 11:44 JF [id number] 10/19/24 11:45 JF (1) #1 lt lat [...] Recorded Date Recorded By Document 10/05/24 09:05 [id number] 10/05/24 09:06 Document 10/12/24 11:44 [id number] 10/12/24 11:45 10/05/24 10/12/24 09:05 11:44 Wound [...] Cosigner Signature (if applicable): CC: ~ Signed [facility] Work Phone: 1(780) 738-624806-17-2025 History of Present illness Narrative* Cindy Pastor, PharmD - 10/19/2024 9:03 AM EDT Specialty Pharmacy Onboarding Note: An order has been received by [facility]. The specialty medication has been reviewed for appropriate use, dose, route, frequency and duration. Appropriate actions will follow, which may include a prior authorization, patient assistance, and/or sending to the appropriate filling pharmacy. Updates will be made within [employer]'s [employer] Program. 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 The Prior inventory management specialist has contacted the patient via my chart msg to advise on denial status and that a message has been sent to provider. Patient advised to follow up with provider's office if they have any further questions or if no answer after 3 business days. Full denial can be seen in media tab. Zaria Gill RPhThe [facility]06-10-2025 Progress note Author German Finney [facility] Note Date/Time October 12, 2024 11:3 7am [facility] [address] [place] [address] Progress Note - Wound Care 10/12/24 1135 MR#: [id number] Acct: [id number] Name: MAIDA POLANCO Rep #:[id number] : 1980 44 From: German Finney DPM [...] Recorded Date Recorded By Document 10/05/24 08:16 [id number] 10/05/24 08:21 KW Document 10/12/24 11:07 KW [id number] 10/12/24 11:22 KW 10/05/24 10/12/24 08:16 11:07 - Today's Visit Information Type of service Follow-up Visit Follow-up Visit (Physician/CREDIT CARD ASSOCIATE (Physician/CREDIT CARD ASSOCIATE ) ) Arrival Mode Wheelchair Wheelchair Accompanied [...] Date Recorded By Document 10/05/24 08:16 KW [id number] 10/05/24 08:21 KW Document 10/12/24 11:07 KW [id number] 10/12/24 11:22 KW 10/05/24 10/12/24 08:16 11:07 [...] Date Recorded By Document 10/05/24 08:46 DARIN [id number] 10/05/24 08:51 10/05/24 08:46 Wound Center Nurse [...] Date Recorded By Document 10/05/24 09:05 ANTOINE [id number] 10/05/24 09:06 10/05/24 09:05 Wound Care Center [...] Cosigner Signature (if applicable): CC: ~ Signed [facility] Work Phone: 1(962) 808-307606-10-2025 Progress note [facility] [address] [place] [address] Progress Note - Wound Care 10/12/24 1135 MR#: [id number] Acct: [id number] Name: MAIDA POLANCO Rep #:[id number] : 1980 44 From: German Finney DPM [...] Date Recorded By Document 10/05/24 08:16 KW [id number] 10/05/24 08:21 KW Document 10/12/24 11:07 KW [id number] 10/12/24 11:22 KW 10/05/24 10/12/24 08:16 11:07 - Today's Visit Information Type of service Follow-up Visit Follow-up Visit (Physician/CREDIT CARD ASSOCIATE (Physician/CREDIT CARD ASSOCIATE ) ) Arrival Mode Wheelchair Wheelchair Accompanied [...] Date Recorded By Document 10/05/24 08:16 KW [id number] 10/05/24 08:21 KW Document 10/12/24 11:07 KW [id number] 10/12/24 11:22 KW 10/05/24 10/12/24 08:16 11:07 [...] Recorded Date Recorded By Document 10/05/24 08:46 [id number] 10/05/24 08:51 10/05/24 08:46 Wound Center Nurse [...] Date Recorded By Document 10/05/24 09:05 KW [id number] 10/05/24 09:06 KW 10/05/24 09:05 Wound Care [...] Cosigner Signature (if applicable): CC: ~ Signed [facility]06-06-2025 Radiology Diagnostic study note [facility] Imaging Services [address] [place] [address] Foot min 3 Views MR#: [id number] Acct: [id number] Name: MAIDA POLANCO Rep #: [id number] : 1980 M 44 From: Uday Amor MD PCP: Dr. Markel Bell MD Status: JAZMIN Russo CLI Study:Foot min 3 Views Date of Exam: 09/26 Exam# [id number] Ordering Dr: German Finney DPM PROCEDURE: FOOT [...] overlying the 5th MTP joint. Reading Location: [id number] CC: EMELIA Finney; Dr. Markel Bell MD ~ Shirring Machine Operator: Signed [facility] Work Phone: 1(835) 446-886506-03-2025 Progress note Author German Finney [facility] Note Date/Time October 05, 2024 9:01a [facility] [address] [place] [address] Progress Note - Wound Care 10/05/24 0858 MR#: [id number] Acct: [id number] Name: MAIDA POLANCO Rep #:[id number] : 1980 44 From: German Finney DPM [...] Recorded Date Recorded By Document 10/05/24 08:16 [id number] 10/05/24 08:21 10/05/24 08:16 - Today's Visit Information Type of service Follow-up Visit (Physician/CREDIT CARD ASSOCIATE ) Arrival Mode Wheelchair Accompanied by Patient [...] Date Recorded By Document 10/05/24 08:16 KW [id number] 10/05/24 08:21 KW 10/05/24 08:16 Wound Center [...] Date Recorded By Document 10/05/24 08:46 JF [id number] 10/05/24 08:51 JF 10/05/24 08:46 Wound Center [...] Cosigner Signature (if applicable): CC: ~ Signed [facility] Work Phone: 1(890) 929-155206-03-2025 Progress note [facility] [address] [place] [address] Progress Note - Wound Care 10/05/24 0858 MR#: [id number] Acct: [id number] Name: MAIDA POLANCO Rep #:[id number] : 1980 44 From: German Finney DPM [...] Recorded Date Recorded By Document 10/05/24 08:16 [id number] 10/05/24 08:21 KW 10/05/24 08:16 - Today's Visit Information Type of service Follow-up Visit (Physician/CREDIT CARD ASSOCIATE ) Arrival Mode Wheelchair Accompanied by Patient [...] Date Recorded By Document 10/05/24 08:16 ANTOINE [id number] 10/05/24 08:21 ANTOINE 10/05/24 08:16 Wound Center [...] Date Recorded By Document 10/05/24 08:46 DARIN [id number] 10/05/24 08:51 DARIN 10/05/24 08:46 Wound Center [...] Cosigner Signature (if applicable): CC: ~ Signed [facility]05-27-2025 History of Present illness Narrative* Lakshmi Peace RN - 09/28/2024 9:00 AM EDT Patient was identified by name and date of . Lakshmi Peace RN DEVICE CLINIC INTERROGATION Device Type: Medtronic Micra AV2 implanted 01-13-[address] Aldana at [facility]. Indication: implanted for sinus node dysfunction. BATTERY VOLTAGE: 3.12 Volts, >10 years LEAD IMPEDANCE: Ventricle: 590 Ohms PACING THRESHOLD: Ventricle: 0.63v @ 0.24ms SENSING THRESHOLD: R-Wave: 15 mV INTRINSIC RHYTHM: NSR PERCENT PACING: AM-Vs 0%, VS only 95.8%, AM-CRIME INVESTIGATOR SPECIAL AGENT 0%, V-pac only 4.2% COMMENTS: Device check to establish care. Battery and leadless parameters are stable. NANDO test completed. No changes made. Remotes requested to be transferred. Next Remote Device Check: 3 months x 3 Next In Clinic Device Check: 1 year or sooner as needed. documented in this [id number] Progress note Author German Finney [facility] Note Date/Time September 21, 2024 11:35 am [facility] [address] [place] [address] Progress Note - Wound Care 09/21/24 1133 MR#: [id number] Acct: [id number] Name: MAIDA POLANCO Rep #:[id number] : 1980 44 From: German Finney DPM [...] Date Recorded By Document 09/14/24 10:35 KW [id number] 09/14/24 10:53 KW Document 09/21/24 11:13 KW [id number] 09/21/24 11:25 KW 09/14/24 09/21/24 10:35 11:13 - Today's Visit Information Type of service Initial Visit Follow-up Visit (Physician/CREDIT CARD ASSOCIATE ) Arrival Mode Wheelchair Wheelchair Transfer Assistance [...] & Hygeine No Communication Assessment Preferred language Kinyarwanda Able to Read Yes Able to Write [...] Feeding,Lower Body Dressing, Transferring, Upper Body Dressing Culture/Samaritan/Ammunition And Explosives Handler Cultural/Samaritan Needs that may affect No Treatment Plan Would you allow our hospital skip pit worker to No meet you for the purpose of spiritual/ emotional support? Ammunition And Explosives Handler to contact place of [facility] No WC - Nurse 1 - General Ulcer Measurement Start: 09/14/24 10:34 Freq: Status: Active Protocol: Activity Type Activity Date Activity User E-sign Co-sign Detail Recorded Client Recorded Date Recorded By Document 09/14/24 10:35 KW [id number] 09/14/24 10:53 KW Document 09/21/24 11:13 KW [id number] 09/21/24 11:25 KW 09/14/24 09/21/24 10:35 11:13 [...] Small (1-33%) Large (67-100%) -Granulation Quality Red [place],Red -Necrosis Amt Large (67-100%) Medium (34-66%) -Necrotic [...] Date Recorded By Document 09/14/24 11:16 DARIN [id number] 09/14/24 11:20 DARIN 09/14/24 11:16 Wound Center [...] Date Recorded By Document 09/14/24 11:47 RB [id number] 09/14/24 11:48 RB 09/14/24 11:47 Wound Care [...] Cosigner Signature (if applicable): CC: ~ Signed [facility] Work Phone: 1(739) 666-887205-20-2025 Evaluation note* Diagnosis Onset Date Resolution Status Admit Date Other hereditary and idiopat hic neuropathies acute September 21, 2024 1 0:45am Non-pressure chronic ulcer o f other part of left foot with fat layer exposed chronic September 21, 2024 1 0:45am [facility] Work Phone: 1(490) 324-378505-20-2025 Evaluation note* Diagnosis Onset Date Resolution Status [...] exposed chronic October 05, 2024 8 :13am [facility] Work Phone: 1(844) 782-357405-20-2025 Evaluation note* Diagnosis Onset Date Resolution Status [...] layer exposed chronic October 26, 2024 8:30am [facility] Work Phone: 1(785) 388-189605-20-2025 Evaluation note* Diagnosis Onset Date Resolution Status [...] of bone chronic November 24, 2024 9:15am [facility] Work Phone: 1(369) 340-156705-20-2025 Evaluation note* Diagnosis Onset Date Resolution Status [...] of bone chronic December 01, 2024 1:15pm [facility] Work Phone: 1(463) 309-427005-20-2025 Evaluation note* Diagnosis Onset Date Resolution Status [...] of muscle chronic December 29, 2024 9:00am [facility] Work Phone: 1(199) 555-206805-20-2025 Progress note [facility] [address] [place] [address] Progress Note - Wound Care 09/21/24 1133 MR#: [id number] Acct: [id number] Name: MAIDA POLANCO Rep #:1 : 1980 [...] Date Recorded By Document 09/14/24 10:35 KW [id number] 09/14/24 10:53 KW Document 09/21/24 11:13 KW [id number] 09/21/24 11:25 KW 09/14/24 09/21/24 10:35 11:13 - Today's Visit Information Type of service Initial Visit Follow-up Visit (Physician/CREDIT CARD ASSOCIATE ) Arrival Mode Wheelchair Wheelchair Transfer Assistance [...] & Hygeine No Communication Assessment Preferred language Kinyarwanda Able to Read Yes Able to Write [...] Feeding,Lower Body Dressing, Transferring, Upper Body Dressing Culture/Samaritan/Ammunition And Explosives Handler Cultural/Samaritan Needs that may affect No Treatment Plan Would you allow our [facility] skip pit worker to No meet you for the purpose of spiritual/ emotional support? Ammunition And Explosives Handler to contact place of [employer] No WC - Nurse 1 - General Ulcer Measurement Start: 09/14/24 10:34 Freq: Status: Active Protocol: Activity Type Activity Date Activity User E-sign Co-sign Detail Recorded Client Recorded Date Recorded By Document 09/14/24 10:35 KW [id number] 09/14/24 10:53 KW Document 09/21/24 11:13 KW [id number] 09/21/24 11:25 KW 09/14/24 09/21/24 10:35 11:13 [...] Small (1-33%) Large (67-100%) -Granulation Quality Red [place],Red -Necrosis Amt Large (67-100%) Medium (34-66%) -Necrotic Tissue Type Adherent Slough Adherent Slough -Texture (Livier-wound Skin Appearance) Assessed Assessed -Moisture (Livire-wound Skin Appearance) Assessed Assessed -Color (Livier-wound Skin [...] Date Recorded By Document 09/14/24 11:16 DARIN [id number] 09/14/24 11:20 JF 09/14/24 11:16 Wound Center [...] Date Recorded By Document 09/14/24 11:47 RB [id number] 09/14/24 11:48 RB 09/14/24 11:47 Wound Care [...] Cosigner Signature (if applicable): CC: ~ Signed [facility]05-16-2025 History of Present illness Narrative* Nayana Gifford - 09/17/2024 1:56 PM EDT Images from the original note were not included. SPECIALTY PHARMACY - Prior Auth APPROVED- MEDICAL BENEFIT MEDICATION DETAILS Medication(s): Botox J0585 400u q 3 mo Authorized Quantity: 4 Unit of Measure: Number of Visits Is Approval [place] Specific?: No Insurance Payor: [employer] How was approval received?: Latent Auth Number: [id number] Effective Start Date: 09/10/24 Effective End Date: 09/09/25 The pharmacy will contact patient Maida Polanco and update him on the approval status. Pharmacy to contact patient regarding next step for medication fill. Encounter to be routed to appropriate records management technician/pharmacist for medication fill outreach. 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 Thank you, Nayana iGfford Medication Stick Inserter Specialty Pharmacy Department [phone] opt 3 * Nayana Gifford - 09/08/2024 3:38 PM EDT Images from the original note were not included. SPECIALTY PHARMACY - Prior Auth Denied- PHARMACY BENEFIT Medication and dosing: Botox J0585 400u q 3 mo 09/08/24 1538 PRIOR AUTHORIZATION OUTCOME Specialty Med PA Outcome Denied Insurance Payor [facility] Denial Reason Required Step Therapy (Must have tried, failed or have a contraindication to: Xeomin) MEDICATION DETAILS Medication(s) Botox J0585 400u q 3 mo The pharmacy received notice that a prior authorization has been denied. 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 Thank you, Nayana Gifford Medication Stick Inserter Specialty Pharmacy Department [phone] opt 3 * Cindy Pastor PharmD - 08/20/2024 7:40 AM EDT Specialty Pharmacy Onboarding Note: An order has been received by [facility]. The specialty medication has been reviewed for appropriate use, dose, route, frequency and duration. Appropriate actions will follow, which may include a prior authorization, patient assistance, and/or sending to the appropriate filling pharmacy. Updates will be made within [employer]'s [employer] Program. 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 No other complaints[facility] Medical History (Updated 09/14/24 @ 11:45 by [...] History pain docusate sodium 283 mg-benzocaine ml MT 09/14/24 Unkno wn History 20 mg/5 mL [...] Unknown History sodium phosphates 19 gram-7 1 MT UD 09/14/24 Unknown H istory gram/118 mL [...] Date Recorded By Document 09/14/24 10:35 ANTOINE [id number] 09/14/24 10:53 KW 09/14/24 10:35 - Today's [...] & Hygeine No Communication Assessment Preferred language Kinyarwanda Able to Read Yes Able to Write [...] Feeding,Lower Body Dressing, Transferring, Upper Body Dressing Culture/Samaritan/Ammunition And Explosives Handler Cultural/Samaritan Needs that may affect No Treatment Plan Would you allow our hospital skip pit worker to No meet you for the purpose of spiritual/ emotional support? Ammunition And Explosives Handler to contact place of [employer] No WC - Nurse 1 - General Ulcer Measurement Start: 09/14/24 10:34 Freq: Status: Active Protocol: Activity Type Activity Date Activity User E-sign Co-sign Detail Recorded Client Recorded Date Recorded By Document 09/14/24 10:35 ANTOINE [id number] 09/14/24 10:53 KW 09/14/24 10:35 Wound Center [...] Date Recorded By Document 09/14/24 11:16 DARIN [id number] 09/14/24 11:20 DARIN 09/14/24 11:16 Wound Center [...] Cosigner Signature (if applicable): CC: ~ Signed [facility] Work Phone: 1(220) 134-990005-13-2025 History and physical note [facility] [address] [place] [address] H&P Exam - Wound Care 09/14/24 1143 MR#: [id number] Acct: [id number] Name: MAIDA POLANCO Rep #:[id number] : 1980 44 From: German Finney DPM [...] has no pain today. No other complaints. [facility] Medical History (Updated 09/14/24 @ 11:45 by [...] History pain docusate sodium 283 mg-benzocaine ml MT 09/14/24 Unkno wn History 20 mg/5 mL [...] Unknown History sodium phosphates 19 gram-7 1 MT UD 09/14/24 Unknown H istory gram/118 mL [...] Recorded Date Recorded By Document 09/14/24 10:35 [id number] 09/14/24 10:53 KW 09/14/24 10:35 - Today's [...] & Hygeine No Communication Assessment Preferred language Kinyarwanda Able to Read Yes Able to Write [...] Feeding,Lower Body Dressing, Transferring, Upper Body Dressing Culture/Samaritan/Ammunition And Explosives Handler Cultural/Samaritan Needs that may affect No Treatment Plan Would you allow our hospital skip pit worker to No meet you for the purpose of spiritual/ emotional support? Ammunition And Explosives Handler to contact place of [employer] No WC - Nurse 1 - General Ulcer Measurement Start: 09/14/24 10:34 Freq: Status: Active Protocol: Activity Type Activity Date Activity User E-sign Co-sign Detail Recorded Client Recorded Date Recorded By Document 09/14/24 10:35 [id number] 09/14/24 10:53 KW 09/14/24 10:35 Wound Center [...] Date Recorded By Document 09/14/24 11:16 DARIN [id number] 09/14/24 11:20 DARIN 09/14/24 11:16 Wound Center [...] Cosigner Signature (if applicable): CC: ~ Signed [facility]05-09-2025 History of Present illness Narrative* Nayana Gifford - 09/10/2024 1:58 PM EDT SPECIALTY PHARMACY - Prior Auth Submitted- MEDICAL BENEFIT Medication and dosing: Botox J0585 400u q 3 mo Insurance: [employer] P: Provider: Cynthia Bloom MD Dept: PM&R DX: G82.50 (ICD-10-CM) - Tetraparesis (HCC); M62.838 (ICD-10-CM) - Muscle spasticity Previous Therapy: -- Baclofen 03/22/2024 - current -- Gabapentin 03/22/2024 - current PA submitted on date: 09/10/2024 EPIC WQ- LATENT: [facility]- [id number] Pharmacy will addend this encounter with response from plan. Thank you, Nayana Gifford Medication Stick Inserter Specialty Pharmacy Department [phone] opt 3 * Nayana Gifford - 09/08/2024 3:38 PM EDT Images from the original note were not included. SPECIALTY PHARMACY - Prior Auth Denied- PHARMACY BENEFIT Medication and dosing: Botox J0585 400u q 3 mo 09/08/24 1538 PRIOR AUTHORIZATION OUTCOME Specialty Med PA Outcome Denied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 Relationship Specialty Start Date End Date Markel Bell MD [address] [facility] [address] [place], [place] [address] PCP - General Endocrinology/Metabolism 04/05/24 Coordinator Of Rehabilitation Services Relationship Specialty Start Date End Date Markel Bell MD [address] [place] [address] [address] [place] [id number] PCP - General Family Medicine 02/20/24 Coordinator Of Rehabilitation Services Relationship Specialty Start Date End Date Cristopher Walker MD [address] [place] [address] 27519 Physician Urology 04/10/24 Coordinator Of Rehabilitation Services Relationship Specialty Start Date End Date Markel Bell MD [address] [place] [address] [address] [place] [address] PCP - General Endocrinology/Metabolism 04/05/24 Coordinator Of Rehabilitation Services Relationship Specialty Start Date End Date Cristopher Walker MD [address] [place] [address] 18629 Physician Urology 04/10/24 Coordinator Of Rehabilitation Services Relationship Specialty Start Date End Date Cristopher Walker MD [address] [place] [address] 03460 Physician Urology 04/10/24 Coordinator Of Rehabilitation Services Relationship Specialty Start Date End Date Cristopher Walker MD [address] [place] [address] Physician Urology 04/10/24 Coordinator Of Rehabilitation Services Relationship Specialty Start Date End Date Cristopher Walker MD [address] [place] [address] Physician Urology 04/10/24 Coordinator Of Rehabilitation Services Relationship Specialty Start Date End Date Markel Bell MD [address] [place] [address] [address] [place] [address] PCP - General Endocrinology/Metabolism 04/05/24 Coordinator Of Rehabilitation Services Relationship Specialty Start Date End Date Markel Bell [address] [place] [address] [address] [place] [address] PCP - General Family Medicine 06/15/24 Cristopher Walker MD [address] [place] [address] 54563 Physician Urology 04/10/24 Maxine Gu, PT [address] [place] [address] 36564 Physical Therapist Physical Therapy 05/08/24 Cathy Narayanan, OTR/L [address] [place] [address] [place] [address] Occupational Therapist Occupational Therapy 05/08/24 Neelima Rockwell DO [address] [place] [address] Physician Physical Medicine & Rehab/PM&R 06/15/24 Sen Garcia MD [address] [place] [address] 70168 Fellow Spinal Cord Injury 06/15/24 Darnell Xiong MD [address] [place] [address] 67481 Physician Cardiology 07/03/24 Irene Dominguez, PT [address] [place] [address] 93421 Physical Therapist Physical Therapy 08/07/24 Coordinator Of Rehabilitation Services Relationship Specialty Start Date End Date Markel Bell [address] [email or web address] [address] [place], [place] [address] PCP - General Family Medicine 06/15/24 Cristopher Walker MD [address] [place] [address] 13497 Physician Urology 04/10/24 Maxine Gu, PT [address] [place] [address] 05575 Physical Therapist Physical Therapy 05/08/24 Cathy Narayanan, OTR/L [address] [place] [address] Occupational Therapist Occupational Therapy 05/08/24 Neelima Rockwell DO [address] [place] [address] Physician Physical Medicine & Rehab/PM&R 06/15/24 Sen Garcia MD [address] [place] [address] 43579 Fellow Spinal Cord Injury 06/15/24 Darnell Xiong MD [address] [place] [address] 10938 Physician Cardiology 07/03/24 Irene Dominguez, PT [address] [place] [address] 80463 Physical Therapist Physical Therapy 08/07/24 Coordinator Of Rehabilitation Services Relationship Specialty Start Date End Date Markel Bell [address] [address] PCP - General Family Medicine 06/15/24 Cristopher Walker MD [address] [place] [address] 61596 Physician Urology 04/10/24 Maxine Gu, PT [address] [place] [address] 22313 Physical Therapist Physical Therapy 05/08/24 Cathy Narayanan, OTR/L [address] [place] [address] [place] [address] Occupational Therapist Occupational Therapy 05/08/24 Neelima Rockwell DO [address] [place] [address] Physician Physical Medicine & Rehab/PM&R 06/15/24 Sen Garcia MD [address] [place] [address] 01741 Fellow Spinal Cord Injury 06/15/24 Darnell Xiong MD [address] [place] [address] 66664 Physician Cardiology 07/03/24 Irene Dominguez, PT [address] [place], [place] [address] Physical Therapist Physical Therapy 08/07/24 Cindy Pastor, EloyD Pharmacist Pharmacology and Toxicology 08/20/24 Emily Maynard CPhT [address] [place] [address] Clear [employer] Tech Pharmacology and Toxicology 08/20/24 Nayana Gifford Medication Stick Inserter Pharmacology and Toxicology 08/20/24 Coordinator Of Rehabilitation Services Relationship Specialty Start Date End Date Markel Bell [address] [address] PCP - General Family Medicine 06/15/24 Cristopher Walker MD [address] [place] [address] 66162 Physician Urology 04/10/24 Maxine Gu, PT [address] [place] [address] 76576 Physical Therapist Physical Therapy 05/08/24 Cathy Narayanan, OTR/L [address] [place] [address] 49319 Occupational Therapist Occupational Therapy 05/08/24 Neelima Rockwell DO [address] [place] [address] Physician Physical Medicine & Rehab/PM&R 06/15/24 Sen Garcia MD [address] [place] [address] 52047 Fellow Spinal Cord Injury 06/15/24 Darnell Xiong MD [address] [place] [address] 82733 Physician Cardiology 07/03/24 Irene Dominguez, PT [address] [place] [address] 04022 Physical Therapist Physical Therapy 08/07/24 Cindy Pastor, PharmD Pharmacist Pharmacology and Toxicology 08/20/24 Emily Maynard CPhT [address] [place] [address] 30593 Clear [employer] Pharmacology and Toxicology 08/20/24 Nayana Gifford Medication Stick Inserter Pharmacology and Toxicology 08/20/24 Coordinator Of Rehabilitation Services Relationship Specialty Start Date End Date Markel Bell [address] [address] PCP - General Family Medicine 06/15/24 Cristopher Walker MD [address] [place] [address] 73943 Physician Urology 04/10/24 Maxine Gu, PT [address] [place] [address] 33373 Physical Therapist Physical Therapy 05/08/24 Cathy Narayanan, OTR/L [address] [place] [address] [place] [address] Occupational Therapist Occupational Therapy 05/08/24 Neelima Rockwell DO [address] [place] [address] Physician Physical Medicine & Rehab/PM&R 06/15/24 Sen Garcia MD [address] [place] [address] 86089 Fellow Spinal Cord Injury 06/15/24 Darnell Xiong MD [address] [place] [address] 63769 Physician Cardiology 07/03/24 Irene Dominguez, PT [address] [place], [place] [address] Physical Therapist Physical Therapy 08/07/24 Cindy Pastor, PharmD Pharmacist Pharmacology and Toxicology 08/20/24 Emily Maynard CPhT [address] [place] [address] 36541 Clear [employer] Pharmacology and Toxicology 08/20/24 Nayana Gifford Medication Stick Inserter Pharmacology and Toxicology 08/20/24 Coordinator Of Rehabilitation Services Relationship Specialty Start Date End Date Markel Bell [address] [address] PCP - General Family Medicine 06/15/24 Cristopher Walker MD [address] [place] [address] 22294 Physician Urology 04/10/24 Maxine Gu, PT [address] [place] [address] 28154 Physical Therapist Physical Therapy 05/08/24 Cathy Narayanan, OTR/L [address] [place] [address] [place] [address] Occupational Therapist Occupational Therapy 05/08/24 Neelima Rockwell DO [address] [place] [address] Physician Physical Medicine & Rehab/PM&R 06/15/24 Sen Garcia MD [address] [place] [address] 19965 Fellow Spinal Cord Injury 06/15/24 Darnell Xiong MD [address] [place] [address] 00301 Physician Cardiology 07/03/24 Irene Dominguez, PT [address] [place] [address] Physical Therapist Physical Therapy 08/07/24 Cindy Pastor, EloyD Pharmacist Pharmacology and Toxicology 08/20/24 Emily Maynard CPhT [address] [place] [address] 244[address] Clear [employer] Pharmacology and Toxicology 08/20/24 Nayana Gifford Medication Stick Inserter Pharmacology and Toxicology 08/20/24 Coordinator Of Rehabilitation Services Relationship Specialty Start Date End Date Markel Bell [address] [address] PCP - General Family Medicine 06/15/24 Cristopher Walker MD [address] [place] [address] 54381 Physician Urology 04/10/24 Maxine Gu, PT [address] [place] [address] 39802 Physical Therapist Physical Therapy 05/08/24 Cathy Narayanan, OTR/L [address] [facility] [address] [place] [address] Occupational Therapist Occupational Therapy 05/08/24 Neelima Rockwell DO [address] [place] [address] Physician Physical Medicine & Rehab/PM&R 06/15/24 Sen Garcia MD [address] [place] [address] 89663 Fellow Spinal Cord Injury 06/15/24 Darnell Xiong MD [address] [place] [address] 97778 Physician Cardiology 07/03/24 Irene Dominguez, PT [address] [place] [address] 83852 Physical Therapist Physical Therapy 08/07/24 Coordinator Of Rehabilitation Services Relationship Specialty Start Date End Date Markel Bell [address] [address] PCP - General Family Medicine 06/15/24 Cristopher Walker MD [address] [place] [address] 12024 Physician Urology 04/10/24 Maxine Gu, PT [address] [place] [address] 46685 Physical Therapist Physical Therapy 05/08/24 Cathy Narayanan, OTR/L [address] [facility] [address] [place] [address] Occupational Therapist Occupational Therapy 05/08/24 Neelima Rockwell DO [address] [place] [address] Physician Physical Medicine & Rehab/PM&R 06/15/24 Sen Garcia MD [address] [place] [address] 43454 Fellow Spinal Cord Injury 06/15/24 Darnell Xiong MD [address] [place] [address] 00247 Physician Cardiology 07/03/24 Irene Dominguez, PT [address] [place] [address] 72867 Physical Therapist Physical Therapy 08/07/24 Cindy Pastor, PharmD Pharmacist Pharmacology and Toxicology 08/20/24 Emily Maynard CPhT [address] [place] [address] 98177 Clear [employer] Tech Pharmacology and Toxicology 08/20/24 Nayana Gifford Medication Stick Inserter Pharmacology and Toxicology 08/20/24 Coordinator Of Rehabilitation Services Relationship Specialty Start Date End Date Markel Bell [address] [address] PCP - General Family Medicine 06/15/24 Cristopher Walker MD [address] [place] [address] 11907 Physician Urology 04/10/24 Maxine Gu, PT [address] [place] [address] 79452 Physical Therapist Physical Therapy 05/08/24 Cathy Narayanan, OTR/L [address] [place] [address] [place] [address] Occupational Therapist Occupational Therapy 05/08/24 Neelima Rockwell DO [address] [place] [address] Physician Physical Medicine & Rehab/PM&R 06/15/24 Sen Garcia MD [address] [place] [address] 08127 Fellow Spinal Cord Injury 06/15/24 Darnell Xiong MD [address] [place] [address] Physician Cardiology 07/03/24 Irene Dominguez, PT [address] [place] [address] Physical Therapist Physical Therapy 08/07/24 Cindy Pastor, EloyD Pharmacist Pharmacology and Toxicology 08/20/24 Emily Maynard CPhT [address] [place], [place] [phone] [employer] Pharmacology and Toxicology 08/20/24 Nayana Gifford Medication Stick Inserter Pharmacology and Toxicology 08/20/24 Kaleigh Frank, PT [address] [place] [address] Physical Therapist Physical Therapy 09/04/24 Shruthi Sheffield MD [address] [place] [address] Physician Plastic Surgery 09/04/24 Ignacio Bonilla MD [address] [place] [phone] Physician Orthopaedic Hand Service 09/04/24 Coordinator Of Rehabilitation Services Relationship Specialty Start Date End Date Markel Bell [address] [place] [address] PCP - General Family Medicine 06/15/24 Cristopher Walker MD [address] [place] [address] 67536 Physician Urology 04/10/24 Maxine Gu, PT [address] [place] [address] 02775 Physical Therapist Physical Therapy 05/08/24 Cathy Narayanan, OTR/L [address] [place] [address] [address] [place] [address] Occupational Therapist Occupational Therapy 05/08/24 Neelima Rockwell DO [address] [place] [address] Physician Physical Medicine & Rehab/PM&R 06/15/24 Sen Garcia MD [address] [place] [address] Fellow Spinal Cord Injury 06/15/24 Darnell Xiong MD [address] [place] [address] 08342 Physician Cardiology 07/03/24 Irene Dominguez, PT [address] [place] [address] 87095 Physical Therapist Physical Therapy 08/07/24 Cindy Pastor, PharmD Pharmacist Pharmacology and Toxicology 08/20/24 Emily Maynard CPhT [address] [place] [address] 96[address] Clear Bag Tech Pharmacology and Toxicology 08/20/24 Nayana Gifford Medication Stick Inserter Pharmacology and Toxicology 08/20/24 Kaleigh Frank, PT [address] [place] [address] [address] [place] [address] Physical Therapist Physical Therapy 09/04/24 Shruthi Sheffield MD [address] [place] [address] 22631 Physician Plastic Surgery 09/04/24 Ignacio Bonilla MD [address] [place] [phone] Physician Orthopaedic Hand Service 09/04/24 Coordinator Of Rehabilitation Services Relationship Specialty Start Date End Date Markel Bell [address] [facility] [address] [place] [address] PCP - General Family Medicine 06/15/24 Cristopher Walker MD [address] [place] [address] 32449 Physician Urology 04/10/24 Maxine Gu, PT [address] [place] [address] 26509 Physical Therapist Physical Therapy 05/08/24 Cathy Narayanan, OTR/L [address] [place] [address] [place] [address] Occupational Therapist Occupational Therapy 05/08/24 Neelima Rockwell DO [address] [place] [address] Physician Physical Medicine & Rehab/PM&R 06/15/24 Sen Garcia MD [address] [place] [address] 62371 Fellow Spinal Cord Injury 06/15/24 Darnell Xiong MD [address] [place] [address] 45962 Physician Cardiology 07/03/24 Irene Dominguez, PT [address] [place] [address] 09497 Physical Therapist Physical Therapy 08/07/24 Cindy Pastor, EloyD Pharmacist Pharmacology and Toxicology 08/20/24 Emily Maynard CPhT [address] [place] [address] Clear Biottery Tech Pharmacology and Toxicology 08/20/24 Nayana Gifford Medication Stick Inserter Pharmacology and Toxicology 08/20/24 Kaleigh Frank, PT [address] [place] [address] [address] [place] [address] Physical Therapist Physical Therapy 09/04/24 Shruthi Sheffield MD [address] [place] [address] Physician Plastic Surgery 09/04/24 Ignacio Bonilla MD [address] [place] [phone] Physician Orthopaedic Hand Service 09/04/24 Coordinator Of Rehabilitation Services Relationship Specialty Start Date End Date Markel Bell [address] [address] PCP - General Family Medicine 06/15/24 Cristopher Walker MD [address] [place], [place] [address] Physician Urology 04/10/24 Maxine Gu, PT [address] [place], [place] [address] Physical Therapist Physical Therapy 05/08/24 Cathy Narayanan, OTR/L [address] [place] [address] [place] [address] Occupational Therapist Occupational Therapy 05/08/24 Neelima Rockwell DO [address] [place] [address] Physician Physical Medicine & Rehab/PM&R 06/15/24 Sen Garcia MD [address] [place] [address] Fellow Spinal Cord Injury 06/15/24 Darnell Xiong MD [address] [place] [address] Physician Cardiology 07/03/24 Irene Dominguez, PT [address] [place] [address] Physical Therapist Physical Therapy 08/07/24 Cindy Pastor, PharmD Pharmacist Pharmacology and Toxicology 08/20/24 Emily Maynard CPhT [address] [place], [place] [phone] Clear [employer] Pharmacology and Toxicology 08/20/24 Nayana Gifford Medication Stick Inserter Pharmacology and Toxicology 08/20/24 Kaleigh Frank, PT [address] [place] [address] Physical Therapist Physical Therapy 09/04/24 Shruthi Sheffield MD [address] [place] [address] Physician Plastic Surgery 09/04/24 Ignacio Bonilla MD [address] [place] [phone] Physician Orthopaedic Hand Service 09/04/24 Coordinator Of Rehabilitation Services Relationship Specialty Start Date End Date Markel Bell [address] [place] [address] PCP - General Family Medicine 06/15/24 Cristopher Walker MD [address] [place] [address] Physician Urology 04/10/24 Maxine Gu, PT [address] [place], [place] [address] Physical Therapist Physical Therapy 05/08/24 Cathy Narayanan, OTR/L [address] [place] [address] [place] [address] Occupational Therapist Occupational Therapy 05/08/24 Neeilma Rockwell DO [address] [place] [address] Physician Physical Medicine & Rehab/PM&R 06/15/24 Sen Garcia MD [address] [place] [address] 53333 Fellow Spinal Cord Injury 06/15/24 Darnell Xiong MD [address] [place], [place] [address] Physician Cardiology 07/03/24 Irene Dominguez, PT [address] [place], [place] [address] Physical Therapist Physical Therapy 08/07/24 Cindy Pastor, PharmD Pharmacist Pharmacology and Toxicology 08/20/24 09/20/24 Emily Maynard CPhT [address] [place], [place] [phone] [employer] Pharmacology and Toxicology 08/20/24 09/20/24 Nayana Gifford Medication Stick Inserter Pharmacology and Toxicology 08/20/24 09/20/24 Kaleigh Frank, PT [address] [place] [address] [address] [place] [address] Physical Therapist Physical Therapy 09/04/24 Shruthi Sheffield MD [address] [place] [address] 24558 Physician Plastic Surgery 09/04/24 Ignacio Bonilla MD [address] [place] [phone] Physician Orthopaedic Hand Service 09/04/24 Coordinator Of Rehabilitation Services Relationship Specialty Start Date End Date Cristopher Walker MD [address] [place] [address] 41520 Physician Urology 04/10/24 Coordinator Of Rehabilitation Services Relationship Specialty Start Date End Date Cristopher Walker MD [address] [place] [address] 85995 Physician Urology 04/10/24 Maxine Gu, PT [address] [place] [address] 58792 Physical Therapist Physical Therapy 05/08/24 Cathy Naaryanan, OTR/L [address] [place] [address] [place] [address] Occupational Therapist Occupational Therapy 05/08/24 Coordinator Of Rehabilitation Services Relationship Specialty Start Date End Date Markel Bell [address] [address] PCP - General Family Medicine 06/15/24 Cristopher Walekr MD [address] [place] [address] 41694 Physician Urology 04/10/24 Maxine Gu, PT [address] [place] [address] 70936 Physical Therapist Physical Therapy 05/08/24 Cathy Narayanan, OTR/L [address] [place] [address] [place] [address] Occupational Therapist Occupational Therapy 05/08/24 Neelima Rockwell DO [address] [place] [address] Physician Physical Medicine & Rehab/PM&R 06/15/24 Sen Garcia MD [address] [place], [place] [address] Fellow Spinal Cord Injury 06/15/24 Darnell Xiong MD [address] [place] [address] Physician Cardiology 07/03/24 Irene Dominguez, PT [address] [place] [address] Physical Therapist Physical Therapy 08/07/24 Kaleigh Frank, PT [address] [place] [address] Physical Therapist Physical Therapy 09/04/24 Shruthi Sheffield MD [address] [place], [place] [address] Physician Plastic Surgery 09/04/24 Ignacio Bonilla MD [address] [place] [phone] Physician Orthopaedic Hand Service 09/04/24 Team Status: [...] September 21, 2024 End: October 02, 2024 Coordinator Of Rehabilitation Services Relationship Specialty Start Date End Date Markel Bell [address] [place] [address] PCP - General Family Medicine 06/15/24 Cristopher Walker MD [address] [place] [address] 24722 Physician Urology 04/10/24 Maxine Gu, PT [address] [place] [address] 44318 Physical Therapist Physical Therapy 05/08/24 Cathy Narayanan, OTR/L [address] [place] [address] Occupational Therapist Occupational Therapy 05/08/24 Neelima Rockwell DO [address] [place] [address] Physician Physical Medicine & Rehab/PM&R 06/15/24 Sen Garcia MD [address] [place] [address] 18142 Fellow Spinal Cord Injury 06/15/24 Darnell Xiong MD [address] [place] [address] 03852 Physician Cardiology 07/03/24 Irene Dominguez, PT [address] [place] [address] 07618 Physical Therapist Physical Therapy 08/07/24 Coordinator Of Rehabilitation Services Relationship Specialty Start Date End Date Markel Bell [address] [facility] [address] [place] [address] PCP - General Family Medicine 06/15/24 Cristopher Walker MD [address] [place] [address] 25867 Physician Urology 04/10/24 Maxine Gu, PT [address] [place], [place] [address] Physical Therapist Physical Therapy 05/08/24 Cathy Narayanan, OTR/L [address] [place] [address] [place] [address] Occupational Therapist Occupational Therapy 05/08/24 Neelima Rockwell DO [address] [place] [address] Physician Physical Medicine & Rehab/PM&R 06/15/24 Sen Garcia MD [address] [place], [place] [address] Fellow Spinal Cord Injury 06/15/24 Darnell Xiong MD [address] [place] [address] 34241 Physician Cardiology 07/03/24 Irene Dominguez, PT [address] [place], [place] [address] Physical Therapist Physical Therapy 08/07/24 Kaleigh Frank, PT [address] [place] [address] [place] [phone] Physical Therapist Physical Therapy 09/04/24 Shruthi Sheffield MD [address] [place] [address] 54921 Physician Plastic Surgery 09/04/24 Ignacio Bonilla MD [address] [place] [phone] Physician Orthopaedic Hand Service 09/04/24 Team Status: [...] October 07, 2024 End: October 07, 2024 Coordinator Of Rehabilitation Services Relationship Specialty Start Date End Date Markel Bell Joyc[address] [phone] PCP - General Family Medicine 06/15/24 Cristopher Walker MD [address] [place] [address] 40146 Physician Urology 04/10/24 Maxine Gu PT [address] [place], [place] [address] Physical Therapist Physical Therapy 05/08/24 Cathy Narayanan, OTR/L [address] [place] [address] [place] [address] Occupational Therapist Occupational Therapy 05/08/24 Neelima Rockwell DO [address] [place] [address] Physician Physical Medicine & Rehab/PM&R 06/15/24 Sen Garcia MD [address] [place] [address] 21067 Fellow Spinal Cord Injury 06/15/24 Darnell Xiong MD [address] [place] [address] Physician Cardiology 07/03/24 Irene Dominguez, PT [address] [place] [address] Physical Therapist Physical Therapy 08/07/24 Kaleigh Frank, PT [address] [place] [address] [place] [address] Physical Therapist Physical Therapy 09/04/24 Shruthi Sheffield MD [address] [place] [address] Physician Plastic Surgery 09/04/24 Ignacio Bonilla MD [address] [place], [place] [phone] Physician Orthopaedic Hand Service 09/04/24 Coordinator Of Rehabilitation Services Relationship Specialty Start Date End Date Markel Bell Joycelyn Mac [address] [address] PCP - General Family Medicine 06/15/24 Cristopher aWlker MD [address] [place], [place] [address] Physician Urology 04/10/24 Maxine Gu, PT [address] [place], [place] [address] Physical Therapist Physical Therapy 05/08/24 Cathy Narayanan, OTR/L [address] [place] [address] [place] [address] Occupational Therapist Occupational Therapy 05/08/24 Neelima Rockwell DO [address] [place] [address] Physician Physical Medicine & Rehab/PM&R 06/15/24 Sen Garcia MD [address] [place] [address] 83021 Fellow Spinal Cord Injury 06/15/24 Darnell Xiong MD [address] [place] [address] Physician Cardiology 07/03/24 Irene Dominguez, PT [address] [place] [address] Physical Therapist Physical Therapy 08/07/24 Kaleigh Frank, PT [address] [place] [address] Physical Therapist Physical Therapy 09/04/24 Shruthi Sheffield MD [address] [place] [address] 24093 Physician Plastic Surgery 09/04/24 Ignacio Bonilla MD [address] [place] [phone] Physician Orthopaedic Hand Service 09/04/24 Coordinator Of Rehabilitation Services Relationship Specialty Start Date End Date Markel Bell Joycelyn Mac [address] [address] PCP - General Family Medicine 06/15/24 Cristopher Walker MD [address] [place] [address] 82377 Physician Urology 04/10/24 Maxine Gu, PT [address] [place] [address] 47397 Physical Therapist Physical Therapy 05/08/24 Cathy Narayanan, OTR/L [address] [place] [address] [place] [address] Occupational Therapist Occupational Therapy 05/08/24 Neelima Rockwell DO [address] [place] [address] Physician Physical Medicine & Rehab/PM&R 06/15/24 Sen Garcia MD [address] [place] [address] 98871 Fellow Spinal Cord Injury 06/15/24 Darnell Xiong MD [address] [place] [address] 12772 Physician Cardiology 07/03/24 Irene Dominguez, PT [address] [place] [address] Physical Therapist Physical Therapy 08/07/24 Kaleigh Frank, PT [address] [place] [address] [place] [address] Physical Therapist Physical Therapy 09/04/24 Shruthi Sheffield MD [address] [place] [address] 52401 Physician Plastic Surgery 09/04/24 Ignacio Bonilla MD [address] [place] [phone] Physician Orthopaedic Hand Service 09/04/24 Coordinator Of Rehabilitation Services Relationship Specialty Start Date End Date Markel Bell [address] [facility] [[email or web address] [address] [place] [address] PCP - General Family Medicine 06/15/24 Cristopher Walker MD [address] [place] [address] 15215 Physician Urology 04/10/24 Maxine Gu, PT [address] [place] [address] 03767 Physical Therapist Physical Therapy 05/08/24 Cathy Narayanan, OTR/L [address] [place] [address] [place] [address] Occupational Therapist Occupational Therapy 05/08/24 Neelima Rockwell DO [address] [place] [address] Physician Physical Medicine & Rehab/PM&R 06/15/24 Sen Garcia MD [address] [place] [address] 91417 Fellow Spinal Cord Injury 06/15/24 Darnell Xiong MD [address] [place] [address] 35911 Physician Cardiology 07/03/24 Irene Dominguez, PT [address] [place] [address] 91264 Physical Therapist Physical Therapy 08/07/24 Kaleigh Frank, PT [address] [place] [address] [place] [address] Physical Therapist Physical Therapy 09/04/24 Shruthi Sheffield MD [address] [place] [address] 18866 Physician Plastic Surgery 09/04/24 Ignacio Bonilla MD [address] [place] [phone] Physician Orthopaedic Hand Service 09/04/24 Coordinator Of Rehabilitation Services Relationship Specialty Start Date End Date Markel Bell [address] [address] PCP - General Family Medicine 06/15/24 Cristopher Walker MD [address] [place] [address] 45237 Physician Urology 04/10/24 Maxine Gu, PT [address] [place] [address] 66025 Physical Therapist Physical Therapy 05/08/24 Cathy Narayanan, OTR/L [address] [place] [address] [place] [address] Occupational Therapist Occupational Therapy 05/08/24 Neelima Rockwell DO [address] [place] [address] Physician Physical Medicine & Rehab/PM&R 06/15/24 Sen Garcia MD [address] [place] [address] 10001 Fellow Spinal Cord Injury 06/15/24 Darnell Xiong MD [address] [place] [address] 46856 Physician Cardiology 07/03/24 Irene Dominguez, PT [address] [place] [address] 01139 Physical Therapist Physical Therapy 08/07/24 Kaleigh Frank, PT [address] [place] [address] [address] [place] [address] Physical Therapist Physical Therapy 09/04/24 Shruthi Sheffield MD [address] [place] [address] 01729 Physician Plastic Surgery 09/04/24 Ignacio Bonilla MD [address] [place] [phone] Physician Orthopaedic Hand Service 09/04/24 Coordinator Of Rehabilitation Services Relationship Specialty Start Date End Date ArabellaMarkel Joycelyn [address] Rd [facility] [[email or web address]] [address] [place] [address] PCP - General Family Medicine 06/15/24 Cristopher Walker MD [address] [place] [address] Physician Urology 04/10/24 Maxine Gu, PT [address] [place], [place] [address] Physical Therapist Physical Therapy 05/08/24 Cathy Narayanan, OTR/L [address] [place] [address] [place] [address] Occupational Therapist Occupational Therapy 05/08/24 Neelima Rockwell DO [address] [place] [address] Physician Physical Medicine & Rehab/PM&R 06/15/24 Sen Garcia MD [address] [place] [address] 99494 Fellow Spinal Cord Injury 06/15/24 Darnell Xiong MD [address] [place] [address] 42449 Physician Cardiology 07/03/24 Irene Dominguez, PT [address] [place] [address] 75923 Physical Therapist Physical Therapy 08/07/24 Kaleigh Frank, ERIN [address] [place] [address] 27700 Physical Therapist Physical Therapy 09/04/24 Shruthi Sheffield MD [address] [place] [address] 66844 Physician Plastic Surgery 09/04/24 Ignacio Bonilla MD [address] [place] [phone] Physician Orthopaedic Hand Service 09/04/24 Team Status: [...] 2024 End: October 07, 2024 Dr. German Fineny DPM Attending Provider Active Start: October 07, [...] October 26, 2024 End: November 01, 2024 Coordinator Of Rehabilitation Services Relationship Specialty Start Date End Date Markel Bell Joycelyn [facility] [address] [place] [address] PCP - General Family Medicine 06/15/24 Cristopher Walker MD [address] [place] [address] 53378 Physician Urology 04/10/24 Maxine Gu, PT [address] [place] [address] 71130 Physical Therapist Physical Therapy 05/08/24 Cathy Narayanan, OTR/L [address] [place] [address] [place] [address] Occupational Therapist Occupational Therapy 05/08/24 Neelima Rockwell DO [address] [place] [address] Physician Physical Medicine & Rehab/PM&R 06/15/24 Sen Garcia MD [address] [place] [address] 86288 Fellow Spinal Cord Injury 06/15/24 Darnell Xiong MD [address] [place] [address] 74617 Physician Cardiology 07/03/24 Irene Dominguez, PT [address] [place] [address] 47268 Physical Therapist Physical Therapy 08/07/24 Kaleigh Frank, PT [address] [place] [address] [place] [address] Physical Therapist Physical Therapy 09/04/24 Shruthi Sheffield MD [address] [place] [address] 69567 Physician Plastic Surgery 09/04/24 Ignacio Bonilla MD [address] [place] [phone] Physician Orthopaedic Hand Service 09/04/24 Coordinator Of Rehabilitation Services Relationship Specialty Start Date End Date Markel Bell Joycelyn Mac [address] [address] PCP - General Family Medicine 06/15/24 Cristopher Walker MD [address] [place] [address] 26635 Physician Urology 04/10/24 Maxine Gu, ERIN [address] [place] [address] 65799 Physical Therapist Physical Therapy 05/08/24 Cathy Narayanan, OTR/L [address] [place] [address] [place] [address] Occupational Therapist Occupational Therapy 05/08/24 Neelima Rockwell DO [address] [place] [address] Physician Physical Medicine & Rehab/PM&R 06/15/24 Sen Garcia MD [address] [place] [address] 82868 Fellow Spinal Cord Injury 06/15/24 Darnell Xiong MD [address] [place] [address] 31920 Physician Cardiology 07/03/24 Irene Dominguez, PT [address] [place] [address] Physical Therapist Physical Therapy 08/07/24 Kaleigh Farnk, PT [address] [place] [address] [place] [address] Physical Therapist Physical Therapy 09/04/24 Shruthi Sheffield MD [address] [place] [address] Physician Plastic Surgery 09/04/24 Ignacio Bonilla MD [address] [place] [phone] Physician Orthopaedic Hand Service 09/04/24 Coordinator Of Rehabilitation Services Relationship Specialty Start Date End Date Markel Bell Joycelyn Mac [address] [address] PCP - General Family Medicine 06/15/24 Cristopher Walker MD [address] [place] [address] Physician Urology 04/10/24 Maxine Gu, PT [address] [place] [address] Physical Therapist Physical Therapy 05/08/24 Cathy Narayanan, OTR/L [address] [place] [address] [place] [address] Occupational Therapist Occupational Therapy 05/08/24 Neelima Rockwell DO [address] [place] [address] Physician Physical Medicine & Rehab/PM&R 06/15/24 Sen Garcia MD [address] [place] [address] 72094 Fellow Spinal Cord Injury 06/15/24 Darnell Xiong MD [address] [place] [address] 99350 Physician Cardiology 07/03/24 Irene Dominguez, PT [address] [place], [place] [address] Physical Therapist Physical Therapy 08/07/24 Kaleigh Frank, PT [address] [place] [address] [place] [address] Physical Therapist Physical Therapy 09/04/24 Shruthi Sheffield MD [address] [place] [address] 72500 Physician Plastic Surgery 09/04/24 Ignacio Bonilla MD [address] [place] [phone] Physician Orthopaedic Hand Service 09/04/24 Coordinator Of Rehabilitation Services Relationship Specialty Start Date End Date Markel Bell Joycelyn [address] [place] [address] PCP - General Family Medicine 06/15/24 Cristopher Walker MD [address] [place] [address] 28520 Physician Urology 04/10/24 Maxine Gu, PT [address] [place] [address] 27998 Physical Therapist Physical Therapy 05/08/24 Cathy Narayanan, OTR/L [address] [place] [address] [place] [address] Occupational Therapist Occupational Therapy 05/08/24 Neelima Rockwell DO [address] [place] [address] Physician Physical Medicine & Rehab/PM&R 06/15/24 Sen Garcia MD [address] [place] [address] 51501 Fellow Spinal Cord Injury 06/15/24 Team Status: [...] November 25, 2024 End: November 25, 2024 Coordinator Of Rehabilitation Services Relationship Specialty Start Date End Date Markel Bell [address] [facility] [[email or web address]] [address] [place] [address] PCP - General Family Medicine 06/15/24 Cristopher Walker MD [address] [place] [address] 76512 Physician Urology 04/10/24 Maxine Gu, ERIN [address] [place] [address] Physical Therapist Physical Therapy 05/08/24 Cathy Narayanan, OTR/L [address] [place] [address] [place] [address] Occupational Therapist Occupational Therapy 05/08/24 Neelima Rockwell DO [address] [place] [address] Physician Physical Medicine & Rehab/PM&R 06/15/24 Sen Garcia MD [address] [place] [address] 24874 Fellow Spinal Cord Injury 06/15/24 Darnell Xiong MD [address] [place] [address] 09268 Physician Cardiology 07/03/24 Irene Dominguez, PT [address] [place] [address] Physical Therapist Physical Therapy 08/07/24 Kaleigh Frank, PT [address] [place] [address] [place] [address] Physical Therapist Physical Therapy 09/04/24 Shruthi Sheffield MD [address] [place] [address] 63586 Physician Plastic Surgery 09/04/24 Ignacio Bonilla MD [address] [place] [phone] Physician Orthopaedic Hand Service 09/04/24 Team Status: [...] December 01, 2024 End: December 02, 2024 Coordinator Of Rehabilitation Services Relationship Specialty Start Date End Date Markel Bell [address] [facility] [[email or web address] [address] [place] [address] PCP - General Family Medicine 06/15/24 Cristopher Walker MD [address] [place] [address] 98655 Physician Urology 04/10/24 Maxine Gu, ERIN [address] [place] [address] 69322 Physical Therapist Physical Therapy 05/08/24 Cathy Narayanan, OTR/L [address] [place] [address] [place] [address] Occupational Therapist Occupational Therapy 05/08/24 Neelima Rockwell DO [address] [place] [address] Physician Physical Medicine & Rehab/PM&R 06/15/24 Sen Garcia MD [address] [place] [address] 62160 Fellow Spinal Cord Injury 06/15/24 Darnell Xiong MD [address] [place] [address] 16671 Physician Cardiology 07/03/24 Irene Dominguez, PT [address] [place], [place] [address] Physical Therapist Physical Therapy 08/07/24 Kaleigh Frank, PT [address] [place] [address] [place] [address] Physical Therapist Physical Therapy 09/04/24 Shruthi Sheffield MD [address] [place] [address] 55844 Physician Plastic Surgery 09/04/24 Ignacio Bonilla MD [address] [place] [phone] Physician Orthopaedic Hand Service 09/04/24 Coordinator Of Rehabilitation Services Relationship Specialty Start Date End Date Markel Bell Joycelyn Mac [address] [address] PCP - General Family Medicine 06/15/24 Cristopher Walker MD [address] [place] [address] 45938 Physician Urology 04/10/24 Maxine Gu, PT [address] [place] [address] 55901 Physical Therapist Physical Therapy 05/08/24 Cathy Narayanan, OTR/L [address] [place] [address] [place] [address] Occupational Therapist Occupational Therapy 05/08/24 Neelima Rockwell DO [address] [place] [address] Physician Physical Medicine & Rehab/PM&R 06/15/24 Sen Garcia MD [address] [place] [address] 70481 Fellow Spinal Cord Injury 06/15/24 Darnell Xiong MD [address] [place] [address] 78461 Physician Cardiology 07/03/24 Irene Dominguez, PT [address] [place], [place] [address] Physical Therapist Physical Therapy 08/07/24 Kaleigh Frank, PT [address] [place] [address] [place] [address] Physical Therapist Physical Therapy 09/04/24 Shruthi Sheffield MD [address] [place] [address] 13889 Physician Plastic Surgery 09/04/24 Ignacio Bonilla MD [address] [place] [phone] Physician Orthopaedic Hand Service 09/04/24 Neelima Villarreal MD [address] [place] [phone] Physician Physical Medicine & Rehab/PM&R 12/04/24 Cristine Carpio MD [address] [place] [address] [place] [address] Physician Physical Medicine & Rehab/PM&R 12/04/24 Coordinator Of Rehabilitation Services Relationship Specialty Start Date End Date Markel Bell Joycelyn Mac [facility] [address] [place] [address] PCP - General Family Medicine 06/15/24 Cristopher Walker MD [address] [place], [place] [address] Physician Urology 04/10/24 Maxine Gu, PT [address] [place] [address] 52159 Physical Therapist Physical Therapy 05/08/24 Cathy Narayanan, OTR/L [address] [place] [address] [place] [address] Occupational Therapist Occupational Therapy 05/08/24 Neelima Rockwell DO [address] [place] [address] Physician Physical Medicine & Rehab/PM&R 06/15/24 Sen Garcia MD [address] [place] [address] 11992 Fellow Spinal Cord Injury 06/15/24 Darnell Xiong MD [address] [place] [address] 15291 Physician Cardiology 07/03/24 Irene Dominguez, PT [address] [place] [address] 21545 Physical Therapist Physical Therapy 08/07/24 Kaleigh Frank, PT [address] [place] [address] [place] [address] Physical Therapist Physical Therapy 09/04/24 Shruthi Sheffield MD [address] [place] [address] 14033 Physician Plastic Surgery 09/04/24 Ignacio Bonilla MD [address] [place] [phone] Physician Orthopaedic Hand Service 09/04/24 Neelima Villarreal MD [address] [place] [address] [place] [address] Physician Physical Medicine & Rehab/PM&R 12/04/24 Cristine Carpio MD [address] [place] [address] 10794 Physician Physical Medicine & Rehab/PM&R 12/04/24 Team [...] December 29, 2024 End: January 02, 2025 Coordinator Of Rehabilitation Services Relationship Specialty Start Date End Date Markel Bell [address] [facility] [[email or web address]] [address] [place] [address] PCP - General Family Medicine 06/15/24 Cristopher Walker MD [address] [place] [address] 25819 Physician Urology 04/10/24 Maxine Gu PT [address] [place] [address] 06912 Physical Therapist Physical Therapy 05/08/24 Cathy Narayanan, OTR/L [address] [facility] [place] [address] Occupational Therapist Occupational Therapy 05/08/24 Neelima Rockwell DO [address] [place] [address] Physician Physical Medicine & Rehab/PM&R 06/15/24 Sen Garcia MD [address] [place] [address] 84599 Fellow Spinal Cord Injury 06/15/24 Darnell Xiong MD [address] [place] [address] 15672 Physician Cardiology 07/03/24 Coordinator Of Rehabilitation Services Relationship Specialty Start Date End Date Markel Bell Joycelyn Mac [address] [address] PCP - General Family Medicine 06/15/24 Cristopher Walker MD [address] [place] [address] 24349 Physician Urology 04/10/24 Maxine Gu, ERIN [address] [place] [address] 46982 Physical Therapist Physical Therapy 05/08/24 Cathy Narayanan, OTR/L [address] [place] [address] [place] [address] Occupational Therapist Occupational Therapy 05/08/24 [place] [address] [place] [address] [place] [address] Physician Physical Medicine & Rehab/PM&R 06/15/24 Sen Garcia MD [address] [place] [address] 36871 Fellow Spinal Cord Injury 06/15/24 Darnell Xiong MD [address] [place] [address] 87588 Physician Cardiology 07/03/24 Irene Dominguez, PT [address] [place] [address] Physical Therapist Physical Therapy 08/07/24 Kaleigh rFank, PT [address] [place] [address] [address] [place] [address] Physical Therapist Physical Therapy 09/04/24 Shruthi Sheffield MD [address] [place] [address] Physician Plastic Surgery 09/04/24 Ignacio Bonilla MD [address] [place] [address] Physician Orthopaedic Hand Service 09/04/24 Neelima Villarreal MD [address] [place] [address] Physician Physical Medicine & Rehab/PM&R 12/04/24 Cristine Carpio MD [address] [place] [address] [place] [address] Physician Physical Medicine & Rehab/PM&R 12/04/24 Coordinator Of Rehabilitation Services Relationship Specialty Start Date End Date Markel Bell [address] [place] [address] PCP - General Family Medicine 06/15/24 Cristopher Walker MD [address] [place] [address] 89216 Physician Urology 04/10/24 Maxine Gu, PT [address] [place], [place] [address] Physical Therapist Physical Therapy 05/08/24 Cathy Narayanan, OTR/L [address] [place] [address] [place] [address] Occupational Therapist Occupational Therapy 05/08/24 Neelima Rockwell DO [address] [place] [address] Physician Physical Medicine & Rehab/PM&R 06/15/24 Sen Garcia MD [address] [place] [address] 73455 Fellow Spinal Cord Injury 06/15/24 Darnell Xiong MD [address] [place] [address] 23632 Physician Cardiology 07/03/24 Irene Dominguez, PT [address] [place] [address] Physical Therapist Physical Therapy 08/07/24 Kaleigh Frank, PT [address] [place] [address] [place] [address] Physical Therapist Physical Therapy 09/04/24 Shruthi Sheffield MD [address] [place] [address] 43410 Physician Plastic Surgery 09/04/24 Ignacio Bonilla MD [address] [place] [phone] Physician Orthopaedic Hand Service 09/04/24 Neelima Villarreal MD [address] [place] [phone] Physician Physical Medicine & Rehab/PM&R 12/04/24 Cristine Carpio MD [address] [place] [address] [place] [address] Physician Physical Medicine & Rehab/PM&R 12/04/24 Team [...] 26, 2024 End: November 01, 2024 Dr. eLs Shaikh DPM Attending physician Active Start: October [...] Attending physician Active Start: February 02, 2025 Coordinator Of Rehabilitation Services Relationship Specialty Start Date End Date Markel Bell [address] [place] [address] PCP - General Family Medicine 06/15/24 Cristopher Walker MD [address] [place] [address] 88930 Physician Urology 04/10/24 Maxine Gu PT [address] [place] [address] 37567 Physical Therapist Physical Therapy 05/08/24 Cathy Narayanan, OTR/L [address] [place] [address] [place] [address] Occupational Therapist Occupational Therapy 05/08/24 Neelima Rockwell DO [address] [place] [address] Physician Physical Medicine & Rehab/PM&R 06/15/24 Sen Garcia MD [address] [place] [address] 60170 Fellow Spinal Cord Injury 06/15/24 Darnell Xiong MD [address] [place] [address] 28679 Physician Cardiology 07/03/24 Irene Dominguez, PT [address] [place] [address] Physical Therapist Physical Therapy 08/07/24 Kaleigh Frank, PT [address] [place], [place] [address] Physical Therapist Physical Therapy 09/04/24 Shruthi Sheffield MD [address] [place] [address] 63313 Physician Plastic Surgery 09/04/24 Ignacio Bonilla MD [address] [place] [phone] Physician Orthopaedic Hand Service 09/04/24 Coordinator Of Rehabilitation Services Relationship Specialty Start Date End Date Markel Bell [address] [address] PCP - General Family Medicine 06/15/24 Cristopher Walker MD [address] [place] [address] 28940 Physician Urology 04/10/24 Maxine Gu, PT [address] [place] [address] Physical Therapist Physical Therapy 05/08/24 Cathy Narayanan, OTR/L [address] [place] [address] [place] [address] Occupational Therapist Occupational Therapy 05/08/24 [place] [address] [place] [address] 432[address] Physician Physical Medicine & Rehab/PM&R 06/15/24 Sen Garcia MD [address] [place] [address] 43581 Fellow Spinal Cord Injury 06/15/24 Darnell Xiong MD [address] [place] [address] Physician Cardiology 07/03/24 Irene Dominguez, PT [address] [place] [address] Physical Therapist Physical Therapy 08/07/24 Cindy Pastor, PharmD Pharmacist Pharmacology and Toxicology 08/20/24 Emily Maynard CPhT [address] [place] [address] [employer] Pharmacology and Toxicology 08/20/24 Nayana Gifford Medication Stick Inserter Pharmacology and Toxicology 08/20/24 02/08/25 Kaleigh Frank, PT [address] [place] [address] [place] [address] Physical Therapist Physical Therapy 09/04/24 Shruthi Sheffield MD [address] [place] [address] 76956 Physician Plastic Surgery 09/04/24 Ignacio Bonilla MD [address] [place] [phone] Physician Orthopaedic Hand Service 09/04/24 Neelima Villarreal MD [address] [place] [phone] Physician Physical Medicine & Rehab/PM&R 12/04/24 Cristine Carpio MD [address] [place] [address] [place] [address] Physician Physical Medicine & Rehab/PM&R 12/04/24 Kwan Verma, LA NENA, OTR/L, CHT [address] [place] [address] [address] [place] [address] Occupational Therapist Occupational Therapy 01/31/25 Coordinator Of Rehabilitation Services Relationship Specialty Start Date End Date Markel Bell [address] [address] PCP - General Family Medicine 06/15/24 Cristopher Walker MD [address] [place] [address] 84511 Physician Urology 04/10/24 Maxine Gu, ERIN [address] [place] [address] 33587 Physical Therapist Physical Therapy 05/08/24 Cathy Narayanan, OTR/L [address] [place] [address] [place] [address] Occupational Therapist Occupational Therapy 05/08/24 Neelima Rockwell DO [address] [place] [address] Physician Physical Medicine & Rehab/PM&R 06/15/24 Sen Garcia MD [address] [place] [address] 17553 Fellow Spinal Cord Injury 06/15/24 Darnell Xiong MD [address] [place] [address] Physician Cardiology 07/03/24 Irene Dominguez, PT [address] [place] [address] Physical Therapist Physical Therapy 08/07/24 Cindy Pastor, PharmD Pharmacist Pharmacology and Toxicology 08/20/24 Emily Maynard CPhT [address] [place], [place] [id number] [employer] Pharmacology and Toxicology 08/20/24 Nayana Gifford Medication Stick Inserter Pharmacology and Toxicology 08/20/24 02/08/25 Kaleigh Frank, PT [address] [place] [address] [place] [address] Physical Therapist Physical Therapy 09/04/24 Shruthi Sheffield MD [address] [place] [address] Physician Plastic Surgery 09/04/24 Ignacio Bonilla MD [address] [place] [place] [address] Physician Orthopaedic Hand Service 09/04/24 Neelima Villarreal MD [address] [place] [address] Physician Physical Medicine & Rehab/PM&R 12/04/24 Cristine Carpio MD [address] [place] [address] [address] [place] [address] Physician Physical Medicine & Rehab/PM&R 12/04/24 Kwan Verma, OTD, OTR/L, CHT [address] [place] [address] [address] [place] [address] Occupational Therapist Occupational Therapy 01/31/25 Guevara Arias, PharmD [address] [place] [address] 26205 Pharmacist 02/08/25 Celena Mandel CPhT [address] [place] [address] 58079 Medication Stick Inserter Pharmacology and Toxicology 02/08/25 Coordinator Of Rehabilitation Services Relationship Specialty Start Date End Date Markel Bell [address] [place] [address] PCP - General Family Medicine 06/15/24 Cristopher Walker MD [address] [place] [address] 73096 Physician Urology 04/10/24 Maxine Gu, PT [address] [place] [address] 82592 Physical Therapist Physical Therapy 05/08/24 Cathy Narayanan, OTR/L [address] [place] [address] [address] [place] [address] Occupational Therapist Occupational Therapy 05/08/24 Neelima Rockwell DO [address] [place] [address] Physician Physical Medicine & Rehab/PM&R 06/15/24 Sen Garcia MD [address] [place] [address] 66235 Fellow Spinal Cord Injury 06/15/24 Darnell Xiong MD [address] [place] [address] 67102 Physician Cardiology 07/03/24 Irene Dominguez, PT [address] [place] [address] 00556 Physical Therapist Physical Therapy 08/07/24 Cindy Pastor, EloyD Pharmacist Pharmacology and Toxicology 08/20/24 Emily Maynard CPhT [address] [place], [place] [phone] [employer] Pharmacology and Toxicology 08/20/24 Kaleigh Frank, PT [address] [place] [address] [address] [place] [address] Physical Therapist Physical Therapy 09/04/24 Shruthi Sheffield MD [address] [place], [place] [address] Physician Plastic Surgery 09/04/24 Ignacio Bonilla MD [address] [place] [address] Physician Orthopaedic Hand Service 09/04/24 Neelima Villarreal MD [address] [place] [address] Physician Physical Medicine & Rehab/PM&R 12/04/24 Cristine Carpio MD [address] [place] [address] [address] [place] [id number] Physician Physical Medicine & Rehab/PM&R 12/04/24 Kwan Verma, OTD, OTR/L, CHT [address] [place] [address] [address] [place] [address] Occupational Therapist Occupational Therapy 01/31/25 Guevara Arias, EloyD [address] [place] [address] 16939 Pharmacist 02/08/25 Celena Mandel CPhT [address] [place] [address] 35838 Medication Stick Inserter Pharmacology and Toxicology 02/08/25 Coordinator Of Rehabilitation Services Relationship Specialty Start Date End Date Markel [address] [place] [address] PCP - General Family Medicine 06/15/24 Cristopher Walker MD [address] [place] [address] 93218 Physician Urology 04/10/24 Maxine Gu, PT [address] [place] [address] Physical Therapist Physical Therapy 05/08/24 Cathy Narayanan, OTR/L [address] [place] [address] [address] [place] [address] Occupational Therapist Occupational Therapy 05/08/24 Neelima Rockwell DO [facility] [address] [place] [address] Physician Physical Medicine & Rehab/PM&R 06/15/24 Sen Garcia MD [address] [place], [place] [phone] Fellow Spinal Cord Injury 06/15/24 Darnell Xiong MD [address] [place] [address] 74224 Physician Cardiology 07/03/24 Irene Dominguez, PT [address] [place] [address] 33703 Physical Therapist Physical Therapy 08/07/24 Cindy Pastor, PharmD Pharmacist Pharmacology and Toxicology 08/20/24 Emily Maynard CPhT [address] [place] [address] 53991 [employer] Pharmacology and Toxicology 08/20/24 Nayana Gifford Medication Stick Inserter Pharmacology and Toxicology 08/20/24 02/08/25 Kaleigh Frank, PT [address] [place] [address] [address] [place] [address] Physical Therapist Physical Therapy 09/04/24 Shruthi Sheffield MD [address] [place] [address] 72457 Physician Plastic Surgery 09/04/24 Ignacio Bonilla MD [address] [place] [address] Physician Orthopaedic Hand Service 09/04/24 Neelima Villarreal MD [address] [place] [address] Physician Physical Medicine & Rehab/PM&R 12/04/24 Cristine Carpio MD [address] [place] [address] [address] [place] [address] Physician Physical Medicine & Rehab/PM&R 12/04/24 Kwan Verma, LA NENA, OTR/L, CHT [address] [place] [address] [address] [place] [address] Occupational Therapist Occupational Therapy 01/31/25 Guevara Arias, EloyD [address] [place] [address] 21378 Pharmacist 02/08/25 Celena Mandel CPhT [address] [place], [place] [phone] Medication Stick Inserter Pharmacology and Toxicology 02/08/25 Coordinator Of Rehabilitation Services Relationship Specialty Start Date End Date Markel Bell [address] [place] [address] PCP - General Family Medicine 06/15/24 Cristopher Walker MD [address] [place] [address] 28009 Physician Urology 04/10/24 Maxine Gu, PT [address] [place] [address] 36405 Physical Therapist Physical Therapy 05/08/24 Cathy Narayanan, OTR/L [address] [place] [address] [address] [place] [address] Occupational Therapist Occupational Therapy 05/08/24 Neelima Rockwell DO [address] [place] [address] Physician Physical Medicine & Rehab/PM&R 06/15/24 Sen Garcia MD [address] [place] [address] 75469 Fellow Spinal Cord Injury 06/15/24 Darnell Xiong MD [address] [place], [place] [address] Physician Cardiology 07/03/24 Irene Dominguez, PT [address] [place], [place] [address] Physical Therapist Physical Therapy 08/07/24 Cindy Pastor, EloyD Pharmacist Pharmacology and Toxicology 08/20/24 Emily Maynard CPhT [address] [place] [address] [employer] Pharmacology and Toxicology 08/20/24 Nayana Gifford Medication Stick Inserter Pharmacology and Toxicology 08/20/24 02/08/25 Kaleigh Frank, PT [address] [place] [address] [address] [place] [address] Physical Therapist Physical Therapy 09/04/24 Shruthi Sheffield MD [address] [place] [address] 60764 Physician Plastic Surgery 09/04/24 Ignacio Bonilla MD [address] [place] [address] Physician Orthopaedic Hand Service 09/04/24 Neelima Villarreal MD [address] [place] [address] Physician Physical Medicine & Rehab/PM&R 12/04/24 Cristine Carpio MD [address] [place] [address] [address] [place] [address] Physician Physical Medicine & Rehab/PM&R 12/04/24 Kwan Verma, OTD, OTR/L, CHT [address] [place] [address] [address] [place] [address] Occupational Therapist Occupational Therapy 01/31/25 Guevara Arias, PharmD [address] [place], [place] [phone] Pharmacist 02/08/25 Celena Mandel CPhT [address] [place], [place] [phone] Medication Stick Inserter Pharmacology and Toxicology 02/08/25 Coordinator Of Rehabilitation Services Relationship Specialty Start Date End Date Markel Bell [address] [place] [address] PCP - General Family Medicine 06/15/24 Cristopher Walker MD [address] [place] [address] Physician Urology 04/10/24 Maxine Gu, ERIN [address] [place], [place] [address] Physical Therapist Physical Therapy 05/08/24 Cathy Narayanan, OTR/L [address] [place] [address] [address] [place] [phone] Occupational Therapist Occupational Therapy 05/08/24 Neelima Rockwell DO [address] [place] [address] Physician Physical Medicine & Rehab/PM&R 06/15/24 Sen Garcia MD [address] [place], [place] [address] Fellow Spinal Cord Injury 06/15/24 Darnell Xiong MD [address] [place], [place] [address] Physician Cardiology 07/03/24 Irene Dominguez, PT [address] [place] [address] Physical Therapist Physical Therapy 08/07/24 Cindy Pastor, EloyD Pharmacist Pharmacology and Toxicology 08/20/24 Emily Maynard CPhT [address] [place] [address] 10661 [employer] Pharmacology and Toxicology 08/20/24 Kaleigh Frank, PT [address] [place] [address] [address] [place] [address] Physical Therapist Physical Therapy 09/04/24 Shruthi Sheffield MD [address] [place] [address] Physician Plastic Surgery 09/04/24 Ignacio Bonilla MD [address] [place] [address] Physician Orthopaedic Hand Service 09/04/24 Neelima Villarreal MD [address] [place] [address] Physician Physical Medicine & Rehab/PM&R 12/04/24 Cristine Carpio MD [address] [place] [address] [address] [place] [address] Physician Physical Medicine & Rehab/PM&R 12/04/24 Kwan Verma, OTDebra, OTR/L, CHT [address] [place] [address] [address] [place] [address] Occupational Therapist Occupational Therapy 01/31/25 Guevara Arias, EloyD [address] [place] [address] 60132 Pharmacist 02/08/25 Celena Mandel CPhT [address] [place] [address] 71696 Medication Stick Inserter Pharmacology and Toxicology 02/08/25 Coordinator Of Rehabilitation Services Relationship Specialty Start Date End Date ConorMarkel prather [address] [place] [address] PCP - General Family Medicine 06/15/24 Cristopher Walker MD [address] [place] [address] 13111 Physician Urology 04/10/24 Maxine Gu, PT [address] [place] [address] 61902 Physical Therapist Physical Therapy 05/08/24 Cathy Narayanan, OTR/L [address] [place] [address] [address] [place] [address] Occupational Therapist Occupational Therapy 05/08/24 Neelima Rockwell DO [address] [place] [address] Physician Physical Medicine & Rehab/PM&R 06/15/24 Sen Garcia MD [address] [place] [address] 37339 Fellow Spinal Cord Injury 06/15/24 Darnell Xiong MD [address] [place] [address] 57645 Physician Cardiology 07/03/24 Irene Dominguez, PT [address] [place] [address] 79083 Physical Therapist Physical Therapy 08/07/24 Cindy Pastor, PharmD Pharmacist Pharmacology and Toxicology 08/20/24 Emily Maynard CPhT [address] [place] [address] 62546 [employer] Pharmacology and Toxicology 08/20/24 Nayana Gifford Medication Stick Inserter Pharmacology and Toxicology 08/20/24 02/08/25 Kaleigh Frank, PT [address] [place] [address] [place] [phone] Physical Therapist Physical Therapy 09/04/24 Shruthi Sheffield MD [address] [place] [address] Physician Plastic Surgery 09/04/24 Ignacio Bonilla MD [address] [place] [address] Physician Orthopaedic Hand Service 09/04/24 Neelima Villarreal MD [address] [place] [address] Physician Physical Medicine & Rehab/PM&R 12/04/24 Cristine Carpio MD [address] [place] [address] [address] [place] [address] Physician Physical Medicine & Rehab/PM&R 12/04/24 Kwan Verma, OTD, OTR/L, CHT [address] [place] [address] [address] [place] [address] Occupational Therapist Occupational Therapy 01/31/25 Guevara Arias, PharmD [address] [place], [place] [phone] Pharmacist 02/08/25 Celena Mandel CPhT [address] [place], [place] [phone] Medication Stick Inserter Pharmacology and Toxicology 02/08/25 Coordinator Of Rehabilitation Services Relationship Specialty Start Date End Date Markel Bell [address] [place] [address] PCP - General Family Medicine 06/15/24 Cristopher Walker MD [address] [place] [address] 93155 Physician Urology 04/10/24 Maxine Gu, PT [address] [place] [address] Physical Therapist Physical Therapy 05/08/24 Cathy Narayanan, OTR/L [address] [place] [address] [place] [address] Occupational Therapist Occupational Therapy 05/08/24 Neelima Rockwell DO [address] [place] [address] Physician Physical Medicine & Rehab/PM&R 06/15/24 Sen Garcia MD [address] [place] [address] Fellow Spinal Cord Injury 06/15/24 Darnell Xiong MD [address] [place] [address] Physician Cardiology 07/03/24 Irene Dominguez, PT [address] [place] [address] Physical Therapist Physical Therapy 08/07/24 Cindy Pastor, PharmD Pharmacist Pharmacology and Toxicology 08/20/24 Emily Maynard CPhT [address] [place], [place] [phone] [facility] Tech Pharmacology and Toxicology 08/20/24 Nayana Gifford Medication Stick Inserter Pharmacology and Toxicology 08/20/24 02/08/25 Kaleigh Frank, PT [address] [place] [address] [place] [address] Physical Therapist Physical Therapy 09/04/24 Shruthi Sheffield MD [address] [place] [address] 68927 Physician Plastic Surgery 09/04/24 Ignacio Bonilla MD [address] [place] [phone] Physician Orthopaedic Hand Service 09/04/24 Neelima Villarreal MD [address] [place] [phone] Physician Physical Medicine & Rehab/PM&R 12/04/24 Cristine Carpio MD [address] [place] [address] [address] [place] [phone] Physician Physical Medicine & Rehab/PM&R 12/04/24 Kwan Verma, LA NENA, OTR/L, CHT [address] [place] [address] [address] [place] [phone] Occupational Therapist Occupational Therapy 01/31/25 Guevara Arias, EloyD [address] [place] [address] Pharmacist 02/08/25 Celena Mandel CPhT [address] [place] [address] Medication Stick Inserter Pharmacology and Toxicology 02/08/25 Coordinator Of Rehabilitation Services Relationship Specialty Start Date End Date Markel Bell [address] [place] [address] PCP - General Family Medicine 06/15/24 Cristopher Walker MD [address] [place] [address] Physician Urology 04/10/24 Maxine Gu, PT [address] [place], [place] [address] Physical Therapist Physical Therapy 05/08/24 Cathy Narayanan, OTR/L [address] [place] [address] [place] [address] Occupational Therapist Occupational Therapy 05/08/24 Neelima Rockwell DO [address] [place] [address] Physician Physical Medicine & Rehab/PM&R 06/15/24 Sen Garcia MD [facility] [address] [place] [address] Fellow Spinal Cord Injury 06/15/24 Darnell Xiong MD [address] [place], [place] [address] Physician Cardiology 07/03/24 Irene Dominguez, PT [address] [place] [address] Physical Therapist Physical Therapy 08/07/24 Cindy Pastor, PharmD Pharmacist Pharmacology and Toxicology 08/20/24 Emily Maynard CPhT [address] [place] [address] 84265 [employer] Pharmacology and Toxicology 08/20/24 Nayana Gifford Medication Stick Inserter Pharmacology and Toxicology 08/20/24 02/08/25 Kaleigh Frank, PT [address] [place] [address] [address] [place] [address] Physical Therapist Physical Therapy 09/04/24 Shruthi Sheffield MD [address] [place], [place] [address] Physician Plastic Surgery 09/04/24 Ignacio Bonilla MD [address] [place] [address] Physician Orthopaedic Hand Service 09/04/24 Neelima Villarreal MD [address] [place] [address] Physician Physical Medicine & Rehab/PM&R 12/04/24 Cristine Carpio MD [address] [place] [address] [place] [address] Physician Physical Medicine & Rehab/PM&R 12/04/24 Kwan Verma, OTD, OTR/L, CHT [address] [place] [address] [address] [place] [address] Occupational Therapist Occupational Therapy 01/31/25 Guevara Arias, EloyD [address] [place] [address] 55122 Pharmacist 02/08/25 Celena Mandel, Aubree [address] [place] [address] 18686 Medication Stick Inserter Pharmacology and Toxicology 02/08/25 Coordinator Of Rehabilitation Services Relationship Specialty Start Date End Date Markel Bell [address] [place] [address] PCP - General Family Medicine 06/15/24 Cristopher Walker MD [address] [place] [address] 30817 Physician Urology 04/10/24 Maxine Gu, PT [address] [place] [address] 22524 Physical Therapist Physical Therapy 05/08/24 Cathy Narayanan, OTR/L [address] [place] [address] [address] [place] [address] Occupational Therapist Occupational Therapy 05/08/24 Neelima Rockwell DO [address] [facility] [address] [place] [address] Physician Physical Medicine & Rehab/PM&R 06/15/24 Sen Garcia MD [address] [email or web address] [address] [place] [address] Fellow Spinal Cord Injury 06/15/24 Darnell Xiong MD [address] [place] [address] 22886 Physician Cardiology 07/03/24 Irene Dominguez, PT [address] [place] [address] 97665 Physical Therapist Physical Therapy 08/07/24 Cindy Pastor, EloyD Pharmacist Pharmacology and Toxicology 08/20/24 Emily Maynard CPhT [address] [place] [address] 13071 [employer] Pharmacology and Toxicology 08/20/24 Nayana Gifford Medication Stick Inserter Pharmacology and Toxicology 08/20/24 02/08/25 Kaleigh Frank, PT [address] [place] [address] [address] [place] [address] Physical Therapist Physical Therapy 09/04/24 Shruthi Sheffield MD [address] [place] [address] 84883 Physician Plastic Surgery 09/04/24 Ignacio Bonilla MD [address] [place] [phone] Physician Orthopaedic Hand Service 09/04/24 Neelima Villarreal MD [address] [place] [address] Physician Physical Medicine & Rehab/PM&R 12/04/24 Cristine Carpio MD [address] [place] [address] [address] [place] [address] Physician Physical Medicine & Rehab/PM&R 12/04/24 Kwan Verma, OTD, OTR/L, CHT [address] [place] [address] [address] [place] [address] Occupational Therapist Occupational Therapy 01/31/25 Guevara Arias, EloyD [address] [place] [address] 80128 Pharmacist 02/08/25 Celena Mandel CPhT [address] [place] [address] 28929 Medication Stick Inserter Pharmacology and Toxicology 02/08/25 Coordinator Of Rehabilitation Services Relationship Specialty Start Date End Date Markel Bell [address] [place] [address] PCP - General Family Medicine 06/15/24 Cristopher Walker MD [address] [place], [place] [address] Physician Urology 04/10/24 Maxine Gu, PT [address] [place] [address] Physical Therapist Physical Therapy 05/08/24 Cathy Narayanan, OTR/L [address] [place] [address] [address] [place] [address] Occupational Therapist Occupational Therapy 05/08/24 Neelima Rockwell DO [address] [place] [address] Physician Physical Medicine & Rehab/PM&R 06/15/24 Sen Garcia MD [address] [place] [address] Fellow Spinal Cord Injury 06/15/24 Darnell Xiong MD [address] [place], [place] [address] Physician Cardiology 07/03/24 Irene Dominguez, PT [address] [place] [address] 84478 Physical Therapist Physical Therapy 08/07/24 Cindy Pastor, PharmD Pharmacist Pharmacology and Toxicology 08/20/24 Emily Maynard CPhT [address] [place] [address] 03557 [employer] Pharmacology and Toxicology 08/20/24 Kaleigh Frank, PT [address] [place] [address] [address] [place] [address] Physical Therapist Physical Therapy 09/04/24 Shurthi Sheffield MD [address] [place] [address] 04436 Physician Plastic Surgery 09/04/24 Ignacio Bonilla MD [address] [place] [address] Physician Orthopaedic Hand Service 09/04/24 Neelima Villarreal MD [address] [place] [address] Physician Physical Medicine & Rehab/PM&R 12/04/24 Cristine Carpio MD [address] [place] [address] [address] [place] Physician Physical Medicine & Rehab/PM&R 12/04/24 Kwan Verma, LA NE[place], OTR/L, CHT [address] [place] [address] [address] [place] [address] Occupational Therapist Occupational Therapy 01/31/25 Guevara Arias, PharmD [address] [place], [place] [phone] Pharmacist 02/08/25 Celena Mandel CPhT [address] [place], [place] [phone] Medication Stick Inserter Pharmacology and Toxicology 02/08/25 Coordinator Of Rehabilitation Services Relationship Specialty Start Date End Date Markel Bell [address] [place] [address] PCP - General Family Medicine 06/15/24 Cristopher Walker MD [address] [place], [place] [address] Physician Urology 04/10/24 Maxine Gu, PT [address] [place], [place] [address] Physical Therapist Physical Therapy 05/08/24 Cathy Narayanan, OTR/L [address] [place] [address] [address] [place] [phone] Occupational Therapist Occupational Therapy 05/08/24 Neelima Rockwell DO [address] [place] [address] [place] [address] Physician Physical Medicine & Rehab/PM&R 06/15/24 Sen Garcia MD [address] [place] [address] [place] [address] Fellow Spinal Cord Injury 06/15/24 Darnell Xiong MD [address] [place] [address] Physician Cardiology 07/03/24 Irene Dominguez, PT [address] [place] [address] Physical Therapist Physical Therapy 08/07/24 Cindy Pastor, PharmD Pharmacist Pharmacology and Toxicology 08/20/24 Emily Maynard CPhT [address] [place], [place] [phone] [employer] Pharmacology and Toxicology 08/20/24 Kaleigh Frank, PT [address] [place] [address] [address] [place] [address] Physical Therapist Physical Therapy 09/04/24 Shruthi Sheffield MD [address] [place] [address] 54464 Physician Plastic Surgery 09/04/24 Ignacio Bonilla MD [address] [place] [address] Physician Orthopaedic Hand Service 09/04/24 Neelima Villarreal MD [address] [place] [address] Physician Physical Medicine & Rehab/PM&R 12/04/24 Cristine Carpio MD [address] [place] [address] [address] [place] [address] Physician Physical Medicine & Rehab/PM&R 12/04/24 Kwan Verma, LA NENA, OTR/L, CHT [address] [place] [address] [address] [place] [address] Occupational Therapist Occupational Therapy 01/31/25 Guevara Arias, EloyD [address] [place] [address] Pharmacist 02/08/25 Celena Mandel CPhT [address] [place] [address] Medication Stick Inserter Pharmacology and Toxicology 02/08/25 Coordinator Of Rehabilitation Services Relationship Specialty Start Date End Date Markel Bell [address] [facility] [[email or web address]] [address] [place] [id number] PCP - General Family Medicine 06/15/24 Cristopher Walker MD [address] [place] [address] Physician Urology 04/10/24 Maxine Gu, PT [address] [place] [address] Physical Therapist Physical Therapy 05/08/24 Cathy Narayanan, OTR/L [address] [place] [address] Dr [place] [phone] Occupational Therapist Occupational Therapy 05/08/24 Neelima Rockwell DO [address] [facility] [[email or web address]] [address] [place] [address] Physician Physical Medicine & Rehab/PM&R 06/15/24 Sen Garcia MD [address] [place] [address] [place] [address] Fellow Spinal Cord Injury 06/15/24 Darnell Xiong MD [address] [place] [address] 31995 Physician Cardiology 07/03/24 Irene Dominguez, PT [address] [place] [address] Physical Therapist Physical Therapy 08/07/24 Cindy Pastor, EloyD Pharmacist Pharmacology and Toxicology 08/20/24 Emily Maynard CPhT [address] [place] [address] 29235 [employer] Pharmacology and Toxicology 08/20/24 Kaleigh Frank, PT [address] [place] [address] [place] [address] Physical Therapist Physical Therapy 09/04/24 Shruthi Sheffield MD [address] [place] [address] Physician Plastic Surgery 09/04/24 Ignacio Bonilla MD [address] [place] [address] Physician Orthopaedic Hand Service 09/04/24 Neelima Villarreal MD [address] [place] [address] Physician Physical Medicine & Rehab/PM&R 12/04/24 Cristine Carpio MD [address] [place] [address] [place] [address] Physician Physical Medicine & Rehab/PM&R 12/04/24 Kwan Verma, OTDebra, OTR/L, CHT [address] [place] [address] [address] [place] [address] Occupational Therapist Occupational Therapy 01/31/25 Guevara Arias PharmD [address] [place], [place] [phone] Pharmacist 02/08/25 Celena Mandel CPhT [address] [place] [address] 72711 Medication Stick Inserter Pharmacology and Toxicology 02/08/25 Goals (unrecognized section [...] LOWER EXTREMITY(S) AND/OR TRUNK, EA 15 MINUTES [facility]/PROSTH MGMT &/TRAINJ SBSQ ENCTR 15 MIN Cristine Carpio MD [address] [place] [address] Phone: tel: fax: [facility] [address] [place] [address] Phone: tel: Referral ID Status Reason Start Date Expiration Date Visits Requested Visits Authorized [id number] Authorized Consultatio [id number] 12/29/2024 05/04/2025 30 30 Reason Comments PT [...] LOWER EXTREMITY(S) AND/OR TRUNK, EA 15 MINUTES [facility]/PROSTH MGMT &/TRAINJ SBSQ ENCTR 15 MIN Daquan Fiore III, MD [facility] [address] [place] [address] Phone: tel: [facility] Physical Therapy [address] [place] [address] Phone: tel: Referral ID Status Reason Start Date Expiration Date V isits Requested Visits Authorized [id number] Closed Consultation -[facility] 04/06/2024 10/01/2024 14 14 Reason Comments PT Visit # 4 Reason Comments Post-op Reason Comments Pain Severe pain Reason Comments New patient, to establish relationship Specialty Diagnoses / Procedures Referred By Lorenzo t Referred To Contact Urology Diagnoses Neurogenic bladder Neurogenic bowel Urinary tract infection without hematuria, site unspecified Daquan Fiore III, MD [address] [place] [id number] Phone: tel: [facility] UROLOGIC SURGERY [address] [place] [address] Phone: tel: Referral ID Status Reason Start Date Expiration Date V isits Requested Visits Authorized [id number] Authorized 03/30/2024 03/30/2025 3 3 Reason Comments [...] TRAINING Daquan Fiore III, MD [address] [place] [address] Phone: tel: [facility] Occupational Therapy [address] [place] [address] Phone: tel: Referral ID Status Reason Start Date Expiration Date V isits Requested Visits Authorized [id number] Closed Consultation -[facility] 04/04/2024 07/06/2024 10 10 Referral ID Status Reason Start Date Expiration Date Visits Requested Visits Authorized [id number] Authorized Consultatio n-[facility] 04/06/2024 07/06/2024 14 14 Reason Comments OT [...] COMPLEX 60 MIN Cathy Narayanan, OTR/L [address] [facility] [place] [address] [facility] [address] [place] [address] Phone: tel: Referral ID Status Reason Start Date Expiration Date V isits Requested Visits Authorized [id number] Pending Review 04/26/2024 04/26/2025 4 4 Reason [...] REPORT, EA 15 MIN Cathy Narayanan, OTR/L [address] [place] [address] [address] [place] [address] [facility] Physical Therapy [address] [place] [phone] Phone: tel: Referral ID Status Reason Start Date Expiration Date Visits Requested Visits Authorized [id number] [facility]ending [facility] 14 14 Reason Onset Date Comments [...] Spasm of muscle Neelima Villarreal MD [address] [place] [address] Phone: tel: fax: PHARMACY [address] [place] [address] [address] [place] [address] Phone: tel: Referral ID Status Reason Start Date Expiration Date Visits Requested Visits Authorized [id number] Authorized Pharmacy Pre Auth 11/02/2024 11/02/2025 3 4 Reason Comments Treatment At-home OOD AT [facility] office Specialty Diagnoses / Procedures [...] REPORT, EA 15 MIN Kaleigh Frank, PT [address] [place] [address] [address] Physical Therapy [address] [place] [address] Phone: tel: Referral ID Status Reason Start Date Expiration Date Visits Requested Visits Authorized [id number] Authorized Consultatio [facility] 12/02/2024 03/04/2025 3 3 Reason Onset Date Comments Specialty Pharmacy Referral 02/08/2025 Dysp ort- New INS Reason Comments OT Evaluation 1 Specialty Diagnoses / Procedures Referred By Contact Referred To Contact Occupational Therapy Diagnoses Tetraplegia (HCC) Procedures OT RE-EVAL EST PLAN CARE THERAPEUTIC ACTIVITY EA 15MIN THERAPEUTIC EXERCISE JOINT MOBILIZATION VOCATIONAL CONSULTATION NEUROMUSCULAR REEDUCATION RESPIRATORY MANAGEMNT TRAINING Cristine Carpio MD [address] [place] [address] [place] [address] Phone: tel: fax: [facility] OCC THERAPY [address] [place] [address] Phone: tel: Referral ID Status Reason Start Date Expiration Date Visits Requested Visits Authorized [id number] Pending Review Consultatio [facility] 12/15/2024 05/04/2025 10 10 Reason Comments Monitoring/follow-up Reason Onset Date Comments Clinically Administered Medication 03/08/2025 03/09/25 RI PM&R / [place] - PM&RabobotulinumtoxinA (Dysport) 500 units SOLR injection Reason Onset Date Comments Transfer RX request 03/09/2025 Reason Comments Procedure Specialty Diagnoses / Procedures Referred By Contac t Referred To Contact Pharmacy Diagnoses Tetraplegia (HCC) Spasm of muscle Neelima Villarreal MD [address] [place] [address] Phone: tel: fax: PHARMACY [address] [place] [phone] Phone: tel: Referral ID Status Reason Start Date Expiration Date Visits Requested Visits Authorized [id number] Authorized Pharmacy Pre Auth 03/01/2025 02/28/2026 4 [...] BE BASED ON THE PRIMARY CLINICAL RECORDS. [facility] [employer] provides no warranty or guarantee of the accuracy or completeness of information in this document.
== END | disposition home or self-care (01) ==
LOC: SL 19:54
PROVIDERS: PCP Family Medicine; Referring Provider Nurse Practitioner Acute Care; Visit Provider Nurse Practitioner Acute Care
DX: G47.33 Obstructive sleep apnea (adult) (pediatric) (principal)
CPT/HCPCS: 95811